=== PATIENT | male | born 1960 | race Caucasian/White ===

== ENCOUNTER 2017-04-14 14:23 | Inpatient (IN) | payer MEDICAID, MEDICARE, OTHER ==
[2017-04-14] MEDS ORDERED: Sodium Chloride 0.9% 1,000 ML IV ONE (14:48)
--- NOTE | 2017-04-14 15:10 | ED Physician Chart ---
Chief Complaint/HPI - Patient Information Date Seen:: 04/14/17 Time Seen:: 14:35 Chief Complaint:: Abdominal Pain History of Present Illness:: Onset x 3 days of intermittent, diffuse, crampy abdominal pain, N/V/D, fever, and decreaed oral intake; no C/P, SOB, chills, H/As, Neck pain, cough, congestion, melena, hematemesis, hematochezia, or urinary s/s Allergies:: Allergies Allergy/AdvReac Type Severity Reaction Status Date / Time No Known Allergies Allergy Verified 04/14/17 14:37 Vitals:: Vital Signs - 8 hr 04/14/17 14:37 Temp 102.2 F HR 131 RR 18 BP 149/78 O2 Sat % 97 Historian:: Patient, Family Member Review:: Nurse's Note Reviewed Review of Systems - Review of Systems General/Constitutional: Fever, Chills, No weight loss, No weakness, No diaphoresis, No edema, No loss of appetite Skin: No skin lesions, No rash, No bruising Head: No headache, No light-headedness Eyes: No loss of vision, No pain, No diplopia ENT: No earache, No nasal drainage, No sore throat, No tinnitus Neck: No neck pain, No swelling, No thyromegaly, No stiffness, No mass noted Cardio Vascular: No chest pain, No palpitations, No PND, No orthopnea, No edema Pulmonary: No SOB, Cough, No sputum, No wheezing GI: Nausea, Vomiting, Diarrhea, Pain, No melena, No hematochezia, Constipation, No hematemesis G/U: No dysuria, No frequency, No hematuria Musculoskeletal: No bone or joint pain, No back pain, No muscle pain Endocrine: No polyuria, No polydipsia Psychiatric: No prior psych history, No depression, No anxiety, No suicidal ideation, No homicidal ideation, No auditory hallucination, No visual hallucination Hematopoietic: No bruising, No lymphadenopathy Allergic/Immuno: No urticaria, No angioedema Neurological: No syncope, No focal symptoms, No weakness, No paresthesia, No headache, No seizure, No dizziness, No confusion, No vertigo Past Medical History - Past Medical History Obtainable: Yes Past Medical History: Asthma/COPD Family History: Diabetes Melitus, HTN Social History: Non Smoker, No Alcohol, No Drug Use, Surgical History: other (Umbilical Hernia Repair) Psychiatricy History: None Medication: Reviewed Family Medical History - Family Member Mother History Unknown: Yes Physical Exam - Physical Examination General/Constitutional: Awake, Well-developed, well-nourished, Alert, No distress, GCS 15, Non-toxic appearing, Ambulatory Head: Atraumatic Eyes: Lids, conjuctiva normal, PERRL, EOMI Skin: Nl inspection, No rash, No skin lesions, No ecchymosis, Well hydrated, No lymphadenopathy ENMT: External ears, nose nl, Nasal exam nl, Lips, teeth, gums nl Neck: Nontender, Full ROM w/o pain, No JVD, No nuchal rigidity, No bruit, No mass, No stridor Respiratory: Nl effort/Exclusion, Clear to Auscultation, No Wheeze/Rhonchi/Rales Cardio Vascular: RRR, No murmur, gallop, rubs, NL S1 S2 GI: No organomegaly, No hernia, Normal BS's, No mass/bruits, No McBurney tenderness Other GI comments:: Abdomen: + diffuse tenderness, rebound, and distention : No CVA tenderness Extremities: No tenderness or effusion, Full ROM, normal strength in all extremities, No edema, Normal digits & nails Neuro/Psych: Alert/oriented, DTR's symmetric, Normal sensory exam, Normal motor strength, Judgement/insight normal, Mood normal, Normal gait, No focal deficits Misc: normal gait, Normal back, No paraspinal tenderness Labs/Radiology/EKG Results - Lab Results Results: WBC: 18.6; U/A: + WBCs; + Bacteria - Radiology Results Comments:: CAT Scan: + Bowel Perforation - EKG Interpretations EKG Time:: 15:46 Rate & Rhythm: 109; ST Comments:: non-specific st-t changes ED Septic Shock - . Is Septic Shock (SBP<90, OR Lactate>4 mmol\L) present?: No - <6hrs of presentation: Vital Signs: Vital Signs - 8 hr 04/14/17 14:37 Temp 102.2 F HR 131 RR 18 BP 149/78 O2 Sat % 97 Reassessment (Disposition) - Reassessment Reassessment Condition:: Improved - Diagnosis Diagnosis:: Perforated Bowel; Fever; Dehydration; Abdominal Pain; Acute Abdominal Pain; Vomiting; UTI; Sepsis - Aftercare/Follow up Instructions Aftercare/Follow-Up Instructions:: Counseled pt regarding lab results/diagnosis & need follow up, Counseled pt & family regarding lab results/diagnosis & need follow up - Patient Disposition Discharge/Transfer:: Acute Care w/in this hosp Accepting Physician:: Dr. Kahn Time Called:: 1540 Time Responded:: 16:45 Admitted to:: Med/Surg Admitting Medical Physician:: Dr. Kahn/ Dr. Trevino Condition at Disposition:: Stable, Improved
[2017-04-14 15:25] LABS: TROP I 0.01 ng/mL (0.01-0.05)
--- NOTE | 2017-04-14 15:44 | Diagnostic Imaging Report ---
CT scan abdomen and pelvis without intravenous contrast HISTORY: Pain Total DLP equals 655 CTDI equals 13.1 Axial sections were obtained from the xiphoid process down to the pubic symphysis. The liver is enlarged. No focal lesions. The spleen is normal in size. No focal abnormalities seen in the pancreas. The right kidney appears normal. No focal lesions seen within the left kidney. No calculi. No hydronephrosis. Mild perinephric stranding particularly on the left side. Findings may be associated with inflammatory sequelae. Marked abnormal changes are noted along the lower descending and sigmoid colon with extensive haziness within the adjacent fat. Small air collections are noted. Suggestion of extraluminal air adjacent to the bowel. Exact etiology uncertain. Findings may be associated with inflammatory change and possible perforation. Clinical correlation is needed. No free fluid seen within the pelvis. IMPRESSION: 1. Extensive abnormal changes in the lower abdomen along the lower descending and sigmoid colon. Extensive haziness within the adjacent fat and suggestion of extraluminal air. Exact etiology uncertain. Findings may be associated with inflammatory change and perforation. Clinical correlation is needed.
[2017-04-14 15:45] LABS: URINE BILIRUBIN SMALL (NEGATIVE); URINE BLOOD SMALL (NEGATIVE); URINE COLOR ORANGE; URINE GLUCOSE (UA) NEGATIVE (NEGATIVE); URINE KETONE 15 mg/dL (NEGATIVE); URINE PH 5.5; URINE PROTEIN 100 mg/dL (NEGATIVE)
[2017-04-14 15:46] LABS: URINE AMORPHOUS SEDIMENT MANY URATES (NONE SEEN); URINE BACTERIA 1+ /hpf (NONE SEEN); URINE EPITHELIAL CELLS OCCASIONAL /lpf (FEW); URINE WBC 0-2 /hpf (0-5)
--- NOTE | 2017-04-14 15:46 | Diagnostic Imaging Report ---
Portable chest x-ray HISTORY: Chest pain The heart appears enlarged. There is accentuation of the lower interstitial lung markings particularly on the left side probably chronic. No hilar or mediastinal abnormalities. No evidence of pleural fluid. IMPRESSION: 1. Cardiomegaly 2. Pulmonary parenchymal changes that appear chronic as noted above. No other focal processes.
[2017-04-14 15:48] LABS: HEMOGLOBIN 11.2 gm/dL (13.2-17.3); MEAN CELL VOLUME 80.1 fl (80-99); MEAN CORPUSCULAR HEMOGLOBIN 26.4 pg (26.0-30.0); MEAN PLATELET VOLUME 7.6 fl; PLATELET COUNT 268 Th/cmm (150-400); RED BLOOD COUNT 4.25 Mil/cmm (4.30-5.70)
[2017-04-14 15:50] LABS: AMYLASE SERUM 31 U/L (29-103); LIPASE 15 U/L (11-82)
[2017-04-14 15:51] LABS: WHITE BLOOD COUNT 18.6 Th/cmm (4.8-10.8)
[2017-04-14 15:52] LABS: BAND NEUTROPHILE 4 % (0-10); NEUTROPHILS 86 % (40-80); PLATELET ESTIMATE ADEQUATE (NORMAL)
[2017-04-14 15:53] LABS: ALB/GLOB RATIO 0.8 (1.0-1.8); ALKALINE PHOSPHATASE 78 U/L (34-104); ANION GAP 16.5 (7.0-16.0); BILIRUBIN,TOTAL 1.1 mg/dL (0.3-1.0); BUN - UREA NITROGEN 19 mg/dL (7-25); BUN/CREATININE RATIO 15.8; CALCIUM SERUM 8.4 mg/dL (8.6-10.3); CARBON DIOXIDE 22.1 mEq/L (21.0-31.0); CHLORIDE 96 mEq/L (98-107); CHOLESTEROL 80 mg/dL (<200); CREATININE - SERUM 1.2 mg/dL (0.7-1.3); GLUCOSE 116 mg/dL (70-105); POTASSIUM SERUM 3.6 mEq/L (3.5-5.1); SGOT 76 U/L (13-39); SGPT/ALT 54 U/L (7-52); SODIUM SERUM 131 mEq/L (136-145); TRIGLYCERIDES 106 mg/dL (<150)
[2017-04-14 15:54] LABS: INR 1.23 (0.5-1.4); PROTHROMBIN TIME (TEST) 12.9 SECONDS (9.5-11.5)
[2017-04-14] MEDS ORDERED: metroNIDAZOLE 500mg/NS 100mL 500 MG/100 ML BAG IV ONE ×2 (16:02→16:08)
[2017-04-14] MEDS ORDERED: Piperacillin Sodium/Tazobact 3.375 gm Vial IV ONE (16:09)
[2017-04-14 16:44] LABS: BNP 85.5 pg/mL (5.0-100.0)
[2017-04-14] MEDS ORDERED: Midazolam 1mg/ml 2 ml vial IV ONE (17:26)
[2017-04-14] MEDS ORDERED: Meperidine 50 mg/mL 1mL Syr ONE ×2 (17:26→20:40)
--- NOTE | 2017-04-14 17:57 | Consultation ---
Consult Note - Consult Note Service Date: 04/14/17 Referring Physician: ER manager assembly 01 Consult Note: PHYSICIAN Consultation Note: Date of Admission: 04/14/17 Purpose of Consultation: septic shock related to sigmoid diverticulitis w/ perforation Chief Complaint: abd pain, distension x 2 weeks. History of Present Illness: 56M relatively healthy prior presents to ER with diffuse abd pain and distension and constipation x 2 weeks. progressively worsening leukocytosis, hypotensive, fever CT + acute sigmoid diverticulitis w/ extensive paracolonic inflammation, likely extraluminal air Past Medical History: Allergies Allergy/AdvReac Type Severity Reaction Status Date / Time No Known Allergies Allergy Verified 04/14/17 14:37 Vital Signs Temp 99.0 F 04/14/17 17:07 Pulse 106 04/14/17 17:07 Resp 16 04/14/17 17:07 BP 99/72 04/14/17 17:07 Pulse Ox 96 04/14/17 17:07 Review of Systems: GI: abd pain/distension all other systems unremarkable. Physical Exam: General: in moderate distress due to abd pain, distension HEENT: normal Cardio: RRR, no murmurs rubs gallops Respiratory: clear bilat Abdominal: diffuse tenderness, guarding, rebound, generalized peritoneal signs Genital/Urinary: normal Extremities: normal Neurological: normal Assessment: 56M relatively healthy presented to ER with diffuse abd pain, tenderness, fever, leukocytosis, hypotension CT abd/pelvis: acute sigmoid diverticulitis w/ extensive paracolonic inflammation, and likely extraluminal air septic shock obesity h/o umbilical hernia repair Plan: NPO IV fluids IV abx urgent/emergent exploratory laparotomy, sigmoid colectomy + end colostomy/ Ada's procedure, drainage of peritonitis. long d/w pt and son regarding plans for surgery, informed consent obtained, all risks of surgery explained, all questions answered. agree to surgery now. central line placement likely will need TPNutritional support. Signed, All Trevino [id number]
[2017-04-14] MEDS ORDERED: Meperidine 25 mg/mL 1mL Syr IVP PRN (18:06)
[2017-04-14] MEDS ORDERED: Lactated Ringer 1,000 ML IV SCH (18:15)
[2017-04-14] MEDS ORDERED: Lidocaine 2% Vial 20 mL Vial ONE (19:32)
[2017-04-14] MEDS ORDERED: Sodium Chloride 0.9% 1,000 ML IV SCH (20:14)
--- NOTE | 2017-04-14 20:41 | Operative Report ---
Operative Report - Surgery Date of Surgery:: 04/14/2017; 8:38p Procedure:: 1. exploratory laparotomy 2. sigmoid colectomy + end colostomy (Ada's procedure) 3. extensive lysis adhesions 4. drainage of intraabdominal/pelvic abscess and diffuse peritontis 5. placement ROLANDO drain Indication for procedure:: acute abdomen acute severe sigmoid diverticulitis w/ peritonitis and intra-abdominal abscess septic shock Anesthesia:: Anesthesiologist: Dr. Pratt Anesthesia: general Preoperative diagnosis:: acute perforated sigmoid diverticulitis w/ peritonitis and intra-abdominal/ pelvic abscess Postoperative diagnosis:: same Description of Procedure:: Surgeon: All Trevino MD Supervisor Machine Workers: Kaleb Polk MD Complications: none Findings: acutely inflammed sigmoid colon with parcolonic abscesses and adherent small bowel and omentum to sigmoid colon. Procedure description: correct pt identification pt taken to operating room and placed supine position administered general anesthesia and intubated uneventfully. sen cath and NGT placed abd prepped and draped usual sterile fashion time out performed lower midline incision made and extended slightly supraumbilically. entered into abdominal cavity without injury to bowel sigmoid colon inflammed with severe phlegmon multiple loops of SB and omentum adherent to sigmoid colon requiring lysis adhesions and blunt dissection away from structures. entered into several intra-abdominal paracolonic and pelvic abscesses, wound cultures sent off. the Bookwalter retractor system used to retract abdominal wall and large allen retractors used to pack away small bowel into RUQ site. mobilized sigmoid colon at white line of toldt, bleeding areas controlled with cautery and suture ligation carefully, attempt made to identify L ureter but too much inflammation and several areas of bleeding. move quickly to mobilize sigmoid colon from L paracolic space w/ bovie cautery. scored the mesentery of the sigmoid colon medially and laterally at the mid descending colon site. proximal end: descending & sigmoid colon junction divided with 75 ABHI stapler the mesenteric vessels to sigmoid colon clamped divided and tied with 2.0 silk and 0 silk sutures, staying close to bowel to stay away from ureters. the distal end: sigmoid/rectum junction divided with 75 ABHI stapler device fired x 2. the sigmoid colon was passed off as surgical specimen the pelvic and abdominal cavity irrigated w/ NS all bleeding areas were cauterized, tied or sutured for confirmed hemostasis then mobilized the proximal descending colon at white line of Toldt to prepare for length adequate to reach abdominal wall for end colostomy. opening of skin and subcutaneous tissue excised for colostomy in LUQ and 3 finger breadth opening of fascia and passed the proximal colon end thru the abdominal colostomy opening, later to be matured. all lap pads and blue towels were removed from abdominal cavity and all instrument, lap pads, sponge and needle counts correct. the entire length of small bowel was evaluated for any inadvertent injury or serosal tears, none seen. irrigation fluid suction out, hemostasis confirmed 10 flat ROLANDO drain introduced thru RLQ opening and placed into pelvis and directed end toward the R paracolic gutter site. small bowel replaced back into abdominal cavity and omentum draped over bowel. the abdominal wall fascia was approximated using #1 PDS looped continuous running suture from top and bottom and tied in midline 3 #1 vicryl sutures were placed as internal retention sutures a each 1/3 of length of fascial incision. abd wound irrigated w/ NS skin approximated with skin laura colostomy staple line cut away and the mucosa edge of colostomy sutured to surrounding skin with 2.0 vicryl interrupted sutures. pt tolerated procedure well, taken to ICU still intubated w/ ETT and in stable condition.
[2017-04-14] MEDS ORDERED: Meperidine 25 mg/mL 1mL Syr ONE (21:01)
[2017-04-14] MEDS: metroNIDAZOLE 500mg/NS 100mL 500 MG/100 ML BAG IV SCH (21:45)
[2017-04-14] MEDS: Chlorhexidine Gluconate 0.12% 15mL Mouthwash MM SCH (22:15)
[2017-04-14 23:20] LABS: pH 7.37 (7.35-7.45)
[2017-04-14] MEDS: Fluconazole 100mg/50mL 100 MG/50 ML BOTTLE IV SCH (23:30)
[2017-04-14 23:31] LABS: ABG SOURCE Arterial; BE(B) -2.5 mEq/L (-3.0-3.0); HCO3 22.6 mEq/L (20.0-26.0)
[2017-04-14 23:32] LABS: ALLEN TEST POSITIVE; CRITICAL VALUES REPORTED BY JC; FIO2 100; MECH RATE 14; MECH VT 550
[2017-04-14] MEDS: D5-0.9%NS 1,000 ML IV SCH (23:49)
[2017-04-15 05:28] LABS: HEMOGLOBIN 11.7 gm/dL (13.2-17.3)
[2017-04-15 05:50] LABS: HEMATOCRIT 35.5 % (39.0-49.0); MEAN CELL VOLUME 80.8 fl (80-99); MEAN CORPUSCULAR HEMOGLOBIN 26.7 pg (26.0-30.0); MEAN CORPUSCULAR HGB CONC 33.1 pg (28.0-36.0); MEAN PLATELET VOLUME 8.9 fl; RED BLOOD COUNT 4.39 Mil/cmm (4.30-5.70); RED CELL DISTRIBUTION WIDTH 15.4 % (11.5-20.0)
[2017-04-15 05:58] LABS: ALB/GLOB RATIO 0.8 (1.0-1.8); ALKALINE PHOSPHATASE 67 U/L (34-104); ANION GAP 14.8 (7.0-16.0); BILIRUBIN,TOTAL 1.5 mg/dL (0.3-1.0); BUN - UREA NITROGEN 19 mg/dL (7-25); BUN/CREATININE RATIO 14.6; CARBON DIOXIDE 22.2 mEq/L (21.0-31.0); CHLORIDE 101 mEq/L (98-107); CREATININE - SERUM 1.3 mg/dL (0.7-1.3); GLUCOSE 175 mg/dL (70-105); SGOT 49 U/L (13-39); SGPT/ALT 43 U/L (7-52); SODIUM SERUM 134 mEq/L (136-145)
[2017-04-15] MEDS: metroNIDAZOLE 500mg/NS 100mL 500 MG/100 ML BAG IV SCH ×3 (06:25→21:00)
[2017-04-15 06:26] LABS: PLATELET COUNT 344 Th/cmm (150-400)
[2017-04-15 06:58] LABS: BAND NEUTROPHILE 7 % (0-10); NEUTROPHILS 85 % (40-80); TOTAL CELLS COUNTED 100
[2017-04-15 06:59] LABS: PLATELET ESTIMATE ADEQUATE (NORMAL)
[2017-04-15] MEDS: Chlorhexidine Gluconate 0.12% 15mL Mouthwash MM SCH ×2 (08:00→20:31)
[2017-04-15] MEDS: Enoxaparin 40 mg/0.4 mL 0.4mL Syr SUBQ SCH (09:07)
[2017-04-15] MEDS ORDERED: Probiotic Screen MC PRN (09:40)
--- NOTE | 2017-04-15 10:14 | Diagnostic Imaging Report ---
Portable chest x-ray HISTORY: Shortness of breath, endotracheal tube placement Compared to prior exam performed earlier in the day (1528 hours), an endotracheal tube is been inserted. The tip is approximately 1.0 cm above the ondina. The heart is enlarged. Faint linear densities noted in the left lower lobe unchanged and may be related to scarring. IMPRESSION: 1. Endotracheal tube placement as noted above 2. No significant change in the cardiopulmonary status
[2017-04-15 10:25] VITALS: BP 120/84
--- NOTE | 2017-04-15 11:44 | General Progress Note ---
Subjective - Review of Systems Service Date: 04/15/17 Events since last encounter: still intubated, sedated on propofol iv Subjective: awake follows commands Objective - Results Result Diagrams: 04/15/17 04:37 04/15/17 04:37 Recent Labs: Laboratory Last Values WBC 20.0 Th/cmm (4.8-10.8) H 04/15/17 04:37 RBC 4.39 Mil/cmm (4.30-5.70) 04/15/17 04:37 Hgb 11.7 gm/dL (13.2-17.3) L 04/15/17 04:37 Hct 35.5 % (39.0-49.0) L 04/15/17 04:37 MCV 80.8 fl (80-99) 04/15/17 04:37 MCH 26.7 pg (26.0-30.0) 04/15/17 04:37 MCHC Differential 33.1 pg (28.0-36.0) 04/15/17 04:37 RDW 15.4 % (11.5-20.0) 04/15/17 04:37 Plt Count 344 Th/cmm (150-400) D 04/15/17 04:37 MPV 8.9 fl 04/15/17 04:37 Band Neutrophils % 7 % (0-10) 04/15/17 04:37 Lymphocytes % ASSESSOR 04/15/17 04:37 Monocytes % ASSESSOR 04/15/17 04:37 Eosinophils % ASSESSOR 04/15/17 04:37 Neutrophils (Manual) 85 % (40-80) H 04/15/17 04:37 Lymphocytes 2 % (20-50) L 04/15/17 04:37 Monocytes 6 % (2-10) 04/15/17 04:37 Platelet Estimate ADEQUATE (NORMAL) 04/15/17 04:37 PT 12.9 SECONDS (9.5-11.5) H 04/14/17 14:55 INR 1.23 (0.5-1.4) 04/14/17 14:55 PTT (Actin FS) 29.8 SECONDS (26.0-38.0) 04/14/17 14:55 Specimen Source Arterial 04/14/17 21:57 Sample Site Right Radial 04/14/17 21:57 pH 7.37 (7.35-7.45) 04/14/17 21:57 pCO2 40.2 mmHg (35.0-45.0) 04/14/17 21:57 pO2 509.9 mmHg (80.0-100.0) H 04/14/17 21:57 HCO3 22.6 mEq/L (20.0-26.0) 04/14/17 21:57 Base Excess -2.5 mEq/L (-3.0-3.0) 04/14/17 21:57 O2 Saturation 99.2 % (92.0-100.0) 04/14/17 21:57 Chau Test POSITIVE 04/14/17 21:57 Vent Rate 14 04/14/17 21:57 Inspired O2 100 04/14/17 21:57 Tidal Volume 550 04/14/17 21:57 PEEP 5 04/14/17 21:57 Pressure (ins/psv/peep) N/A 04/14/17 21:57 Critical Value SABRINA 04/14/17 21:57 Sodium 134 mEq/L (136-145) L 04/15/17 04:37 Potassium 4.0 mEq/L (3.5-5.1) 04/15/17 04:37 Chloride 101 mEq/L (98-107) 04/15/17 04:37 Carbon Dioxide 22.2 mEq/L (21.0-31.0) 04/15/17 04:37 Anion Gap 14.8 (7.0-16.0) 04/15/17 04:37 BUN 19 mg/dL (7-25) 04/15/17 04:37 Creatinine 1.3 mg/dL (0.7-1.3) 04/15/17 04:37 Est GFR ( Amer) > 60.0 ml/min (>90) 04/15/17 04:37 Est GFR (Non-Af Amer) > 60.0 ml/min 04/15/17 04:37 BUN/Creatinine Ratio 14.6 04/15/17 04:37 Glucose 175 mg/dL (70-105) H 04/15/17 04:37 Whole Bld Lactic Acid 1.53 mmol/L (0.60-1.99) 04/14/17 14:55 Calcium 8.0 mg/dL (8.6-10.3) L 04/15/17 04:37 Total Bilirubin 1.5 mg/dL (0.3-1.0) H 04/15/17 04:37 AST 49 U/L (13-39) H 04/15/17 04:37 ALT 43 U/L (7-52) 04/15/17 04:37 Alkaline Phosphatase 67 U/L (34-104) 04/15/17 04:37 Creatine Kinase 136 U/L (30-223) 04/14/17 14:55 Troponin I 0.01 ng/mL (0.01-0.05) 04/14/17 14:55 B-Natriuretic Peptide 85.5 pg/mL (5.0-100.0) 04/14/17 14:55 Total Protein 5.5 gm/dL (6.0-8.3) L 04/15/17 04:37 Albumin 2.4 gm/dL (4.2-5.5) L 04/15/17 04:37 Globulin 3.1 gm/dL 04/15/17 04:37 Albumin/Globulin Ratio 0.8 (1.0-1.8) L 04/15/17 04:37 Triglycerides 106 mg/dL (<150) 04/14/17 14:55 Cholesterol 80 mg/dL (<200) 04/14/17 14:55 LDL Cholesterol Direct 38 mg/dL (75-193) L 04/14/17 14:55 HDL Cholesterol 13 mg/dL (23-92) L 04/14/17 14:55 Amylase 31 U/L (29-103) 04/14/17 14:55 Lipase 15 U/L (11-82) 04/14/17 14:55 Urine Source CLEAN C 04/14/17 15:05 Urine Color ORANGE 04/14/17 15:05 Urine Clarity SLIGHT HAZY (CLEAR) 04/14/17 15:05 Urine pH 5.5 04/14/17 15:05 Ur Specific [place] 1.020 (1.005-1.030) 04/14/17 15:05 Urine Protein 100 mg/dL (NEGATIVE) H 04/14/17 15:05 Urine Glucose (UA) NEGATIVE mg/dL (NEGATIVE) 04/14/17 15:05 Urine Ketones 15 mg/dL (NEGATIVE) H 04/14/17 15:05 Urine Blood SMALL (NEGATIVE) H 04/14/17 15:05 Urine Nitrate NEGATIVE (NEGATIVE) 04/14/17 15:05 Urine Bilirubin SMALL (NEGATIVE) H 04/14/17 15:05 Urine Urobilinogen 1.0 E.U./dL (0.2 - 1.0) 04/14/17 15:05 Ur Leukocyte Esterase NEGATIVE (NEGATIVE) 04/14/17 15:05 Urine RBC 2-5 /hpf (0-5) H 04/14/17 15:05 Urine WBC 0-2 /hpf (0-5) 04/14/17 15:05 Ur Epithelial Cells OCCASIONAL /lpf (FEW) 04/14/17 15:05 Amorphous Sediment MANY URATES (NONE SEEN) 04/14/17 15:05 Urine Bacteria 1+ /hpf (NONE SEEN) H 04/14/17 15:05 Blood Type O POSITIVE 04/14/17 20:36 Antibody Screen NEGATIVE 04/14/17 20:36 - Physical Exam Vitals and I&O: Vital Signs Temp 99.8 F 04/15/17 10:00 Pulse 130 04/15/17 11:05 Resp 26 04/15/17 10:00 BP 120/84 04/15/17 10:24 Pulse Ox 100 04/15/17 11:05 Intake & Output 04/14/17 04/15/17 04/15/17 18:59 06:59 18:59 Intake Total 300 35.244 Output Total 350 Balance -50 35.244 Weight (lbs) 46.176 kg Intake: Intake, IV Amount 300 35.244 Piperacillin Sodium/ 100 Tazobact 4.5 gm In Sodium Chloride 0.9% 100 ml @ 100 mls/hr IV Q6HR [facility] Rx #:[id number] Propofol 1,000 mg In 100 100 35.244 ml @ Titrate IV TITR [facility] Rx#:[id number] metroNIDAZOLE 500mg/NS 100 100mL 500 mg In 100 ml @ 100 mls/hr IV Q8HR [facility] Rx #:[id number] Output: Urine 350 Other: Stool Characteristics Liquid Bloody Active Medications: Current Medications Chlorhexidine Gluconate (Peridex) 15 ml MM [phone] [facility] Stop: 06/13/17 19:59 Last Admin: 04/15/17 08:00 Dose: 15 ml Enoxaparin Sodium (Lovenox) 40 mg SUBQ DAILY ARIAN Stop: 06/14/17 08:59 Last Admin: 04/15/17 09:07 Dose: 40 mg Hydromorphone HCl (Dilaudid) 1 mg IVP Q4HR PRN PRN Reason: Pain (Severe) Stop: 06/13/17 20:22 Lactated Ringer's (Lactated Ringer) 1,000 mls @ 0 mls/hr IV .Q0M ARIAN PRN Reason: TKO Stop: 04/15/17 18:14 Dextrose/Sodium Chloride (D5-0.9%Ns) 1,000 mls @ 100 mls/hr IV .Q10H [facility]AN Stop: 06/13/17 20:14 Last Admin: 04/14/17 23:49 Dose: 100 mls/hr Piperacillin Sod/Tazobactam (Sod 4.5 gm/ Sodium Chloride) 100 mls @ 100 mls/hr IV Q6HR [facility]AN Stop: 06/14/17 00:00 Last Admin: 04/15/17 07:46 Dose: 100 mls/hr Metronidazole (Flagyl) 500 mg in 100 mls @ 100 mls/hr IV Q8HR [facility] Stop: 06/13/17 20:59 Last Admin: 04/15/17 06:25 Dose: 100 mls/hr Fluconazole (Diflucan) 100 mg in 50 mls @ 50 mls/hr IV Q24HR [facility] Stop: 06/13/17 20:59 Last Admin: 04/14/17 23:30 Dose: 50 mls/hr Propofol (Diprivan) 1,000 mg in 100 mls @ 0 mls/hr IV TITR ARIAN; Titrate PRN Reason: Protocol Stop: 06/13/17 21:32 Last Admin: 04/15/17 09:02 Dose: 25 mcg/kg/min, 14.288 mls/hr Lactobacillus Rhamnosus (Culturelle) 1 each PO DAILY ARIAN Stop: 06/15/17 08:59 Meperidine HCl (Demerol) 12.5 mg IVP PRN PRN PRN Reason: POST-OP PAIN Stop: 04/15/17 18:05 Miscellaneous (Probiotic Screen) 1 ea MC PRN PRN PRN Reason: PROTOCOL Stop: 06/14/17 09:39 Morphine Sulfate (Morphine) 2 mg IVP Q4H PRN PRN Reason: Severe Pain Stop: 06/13/17 20:08 Morphine Sulfate (Morphine) 4 mg IV Q2HR PRN PRN Reason: Pain (Moderate) Stop: 06/13/17 20:19 Ondansetron HCl (Zofran) 4 mg IV PRN PRN PRN Reason: Nausea / Vomiting Stop: 04/15/17 18:05 Ondansetron HCl (Zofran) 4 mg IVP Q6H PRN PRN Reason: Nausea / Vomiting Stop: 06/13/17 20:08 Pantoprazole Sodium (Protonix) 40 mg IVP DAILY ARIAN Stop: 06/13/17 20:29 Last Admin: 04/15/17 09:08 Dose: 40 mg General: Alert, Oriented x3, No acute distress HEENT: Atraumatic, PERRLA, EOMI, Mucous membr. moist/pink Neck: Supple Cardiovascular: Regular rate, Normal S1, Normal S2 Lungs: Clear to auscultation, Normal air movement Abdomen: Soft, Distended Psych/Mental Status: Mental status NL Other physical findings: abd: colostomy site intack, mild dusky colostomy mucosa. - Procedures Procedures: Procedures Procedure Code Date BYPASS SIGMOID COLON TO CUTANEOUS, OPEN APPROACH [id number] 04/14/17 PARTIAL REMOVAL OF COLON 13809 04/14/17 RESECTION OF SIGMOID COLON, OPEN APPROACH [id number] 04/14/17 RESPIRATORY VENTILATION, LESS THAN 24 CONSECUTIVE HOURS [id number] 04/14/17 VENT MGMT INPAT INIT DAY 61176 04/14/17 Assessment/Plan - Problem List Patient Problems: All Active Problems Abscess of sigmoid colon due to diverticulitis (Acute) K57.20 Diverticulitis of sigmoid colon (Acute) K57.32 Obesity (Acute) E66.9 Perforation of sigmoid colon due to diverticulitis (Acute) K57.20 Peritonitis (acute) generalized (Acute) K65.0 - Assessment Assessment: POD#1 s/p ex lap, sigmoid colectomy, drainage of peritonitis, lysis adhesions, ROLANDO drain placement. resp failure, pulmonary consult and f/u, wean to extubate per pulm continue IVfluids leukocytosis/ tachycardia; continue IV abx TPNutritional support ROLANDO drain expected output good urine output dvt prophylaxis Lovenox SQ supportive care.... s/w family guarded prognosis. warned pt's condition may worsen.
[2017-04-15] MEDS: Morphine Sulfate 2 mg/mL 1mL Syr IVP PRN ×3 (11:45→21:10)
--- NOTE | 2017-04-15 12:43 | Consultation ---
Consult Note - Consult Note Service Date: 04/15/17 Referring Physician: All Trevino Consult Note: PHYSICIAN Consultation Note: Date of Admission: 04/14/17 Purpose of Consultation: sepsis, Diverticulitis. Chief Complaint: Patient RAJ REGAN was admitted to location Intensive Care Unit with ABD. PAIN, BOWEL PERFORATION. History of Present Illness: Patient is 56 y male presented to hospital for abdominal pain for last 2 weeks, with fever for 2 days. On initial evaluation his temperature 102.2F" he count was 18,600. CT scan of the abdomen and pelvis was performed and it showed perforated abdomen. Patient was taken to the OR and aspirin laparotomy performed with sigmoid colectomy and end end colostomy, drainage of intra- abdominal and pelvic abscesses. His WBC count went up to 20,000 today, Dr. Trevino called me for infectious disease consultation.. His abdomen remains distended. His intubated orally on ventilatory support. Patient is unable to give any history. History is taken from family. Antibiotic-botello, he is receiving Zosyn. Past Medical History: Asthma, arthritis. Diagnoses SEPSIS, UNSPECIFIED ORGANISM (04/14/17) DVTRCLI OF LG INT W PERFORATION AND ABSCESS W/O BLEEDING (04/14/17) UNSPECIFIED ABDOMINAL PAIN (04/14/17) SEVERE SEPSIS WITH SEPTIC SHOCK (04/14/17) Allergies Allergy/AdvReac Type Severity Reaction Status Date / Time No Known Allergies Allergy Verified 04/14/17 14:37 Vital Signs Temp 99.8 F 04/15/17 10:00 Pulse 130 04/15/17 11:05 Resp 26 04/15/17 10:00 BP 120/84 04/15/17 10:24 Pulse Ox 100 04/15/17 11:05 Intake & Output 04/14/17 04/15/17 04/15/17 18:59 06:59 18:59 Intake Total 300 235.244 Output Total 350 Balance -50 235.244 Weight (lbs) 46.176 kg Intake: Intake, IV Amount 300 235.244 Piperacillin Sodium/ 100 100 Tazobact 4.5 gm In Sodium Chloride 0.9% 100 ml @ 100 mls/hr IV Q6HR ARIAN Rx #:[id number] Propofol 1,000 mg In 100 100 35.244 ml @ Titrate IV TITR ARIAN Rx#:[id number] metroNIDAZOLE 500mg/NS 100 100 100mL 500 mg In 100 ml @ 100 mls/hr IV Q8HR [facility] Rx #:[id number] Output: Urine 350 Other: Stool Characteristics Liquid Bloody Laboratory Results - last 24 hr 04/14/17 04/14/17 04/15/17 20:36 21:57 04:37 WBC 20.0 H RBC 4.39 Hgb 11.7 L Hct 35.5 L MCV 80.8 MCH 26.7 MCHC Differential 33.1 RDW 15.4 Plt Count 344 D MPV 8.9 Band Neutrophils % 7 Lymphocytes % QUALITY ASSOCIATE Monocytes % QUALITY ASSOCIATE Eosinophils % QUALITY ASSOCIATE Neutrophils (Manual) 85 H Lymphocytes 2 L Monocytes 6 Platelet Estimate ADEQUATE Specimen Source Arterial Sample Site Right Radial pH 7.37 pCO2 40.2 pO2 509.9 H HCO3 22.6 Base Excess -2.5 O2 Saturation 99.2 Chau Test POSITIVE Vent Rate 14 Inspired O2 100 Tidal Volume 550 PEEP 5 Pressure (ins/psv/peep) N/A Critical Value SABRINA Sodium Potassium Chloride Carbon Dioxide Anion Gap BUN Creatinine Est GFR ( Amer) Est GFR (Non-Af Amer) BUN/Creatinine Ratio Glucose Calcium Total Bilirubin AST ALT Alkaline Phosphatase Total Protein Albumin Globulin Albumin/Globulin Ratio Blood Type O POSITIVE Antibody Screen NEGATIVE 04/15/17 04:37 WBC RBC Hgb Hct MCV MCH MCHC Differential RDW Plt Count MPV Band Neutrophils % Lymphocytes % Monocytes % Eosinophils % Neutrophils (Manual) Lymphocytes Monocytes Platelet Estimate Specimen Source Sample Site pH pCO2 pO2 HCO3 Base Excess O2 Saturation Chau Test Vent Rate Inspired O2 Tidal Volume PEEP Pressure (ins/psv/peep) Critical Value Sodium 134 L Potassium 4.0 Chloride 101 Carbon Dioxide 22.2 Anion Gap 14.8 BUN 19 Creatinine 1.3 Est GFR ( Amer) > 60.0 Est GFR (Non-Af Amer) > 60.0 BUN/Creatinine Ratio 14.6 Glucose 175 H Calcium 8.0 L Total Bilirubin 1.5 H AST 49 H ALT 43 Alkaline Phosphatase 67 Total Protein 5.5 L Albumin 2.4 L Globulin 3.1 Albumin/Globulin Ratio 0.8 L Blood Type Antibody Screen Current Medications Generic Name Dose Route Start Last Admin Trade Name Freq PRN Reason Stop Dose Admin Chlorhexidine Gluconate 15 ml 04/14/17 20:00 04/15/17 08:00 Peridex MM 06/13/17 19:59 15 ml 08,1999 [facility] Administration Enoxaparin Sodium 40 mg 04/15/17 09:00 04/15/17 09:07 Lovenox SUBQ 06/14/17 08:59 40 mg DAILY ARIAN Administration Hydromorphone HCl 1 mg 04/14/17 20:23 Dilaudid IVP 06/13/17 20:22 Q4HR PRN Pain (Severe) Lactated Ringer's 1,000 mls @ 0 mls/hr 04/14/17 18:15 Lactated Ringer IV 04/15/17 18:14 .Q0M ARIAN TKO Dextrose/Sodium Chloride 1,000 mls @ 100 mls/hr 04/14/17 20:15 04/14/17 23:49 D5-0.9%Ns IV 06/13/17 20:14 100 mls/hr .Q10H ARIAN Administration Piperacillin Sod/Tazobactam 100 mls @ 100 mls/hr 04/15/17 00:00 04/15/17 12: 18 Sod 4.5 gm/ Sodium Chloride IV 06/14/17 00:00 100 mls/hr Q6HR ARIAN Administration Metronidazole 500 mg in 100 mls @ 100 mls/hr 04/14/17 21:00 04/15/17 12:23 Flagyl IV 06/13/17 20:59 100 mls/hr Q8HR ARIAN Administration Fluconazole 100 mg in 50 mls @ 50 mls/hr 04/14/17 21:00 04/14/17 23:30 Diflucan IV 06/13/17 20:59 50 mls/hr Q24HR ARIAN Administration Propofol 1,000 mg in 100 mls @ 0 mls/hr 04/14/17 21:33 04/15/17 09:02 Diprivan IV 06/13/17 21:32 25 mcg/kg/min TITR ARIAN 14.288 mls/hr Protocol Administration Titrate Lactobacillus Rhamnosus 1 each 04/16/17 09:00 Culturelle PO 06/15/17 08:59 DAILY ARIAN Meperidine HCl 12.5 mg 04/14/17 18:06 Demerol IVP 04/15/17 18:05 PRN PRN POST-OP PAIN Miscellaneous 1 ea 04/15/17 09:40 Probiotic Screen MC 06/14/17 09:39 PRN PRN PROTOCOL Miscellaneous 1 ea 04/15/17 11:45 Tpn Per Pharmacy 06/14/17 11:44 PRN PRN PROTOCOL Miscellaneous 1 04/15/17 12:45 Vancomycin Iv Per Pharmacy 06/14/17 12:44 PRN ARIAN Morphine Sulfate 2 mg 04/14/17 20:09 04/15/17 11:45 Morphine IVP 06/13/17 20:08 2 mg Q4H PRN Administration Severe Pain Morphine Sulfate 4 mg 04/14/17 20:20 Morphine IV 06/13/17 20:19 Q2HR PRN Pain (Moderate) Ondansetron HCl 4 mg 04/14/17 18:06 Zofran IV 04/15/17 18:05 PRN PRN Nausea / Vomiting Ondansetron HCl 4 mg 04/14/17 20:09 Zofran IVP 06/13/17 20:08 Q6H PRN Nausea / Vomiting Pantoprazole Sodium 40 mg 04/14/17 20:30 04/15/17 09:08 Protonix IVP 06/13/17 20:29 40 mg DAILY ARIAN Administration Review of Systems: A 12 point ROS was reviewed with the pertinent positive and negatives noted in the HPI. Unable to give any history. Family Medical History Family Medical History Start: 04/14/17 17: 16 Freq: ONCE Status: Active Document 04/14/17 22:30 [email or web address] (Rec: 04/15/17 08:42 [email or web address] [place]- [id number]) Family Medical History Mother Name: NOEL EAGLE Ethnicity Living Status Hx Family Cancer No Hx Family Coronary Artery Disease No Hx Family Congestive Heart Failure No Hx Family Hypertension No Hx Family Stroke No Hx Family Diabetes No Hx Family Seizures No Hx Family Dementia No Hx Family AIDS No Hx Family HIV No Hx Family COPD No Hx Family Hepatitis No Hx Family Psychiatric Problems No Hx Family Tuberculosis No Other Medical History ASTHMA Physical Exam: General: Intubated orally, on ventilator support. Well-nourished well- developed. HEENT: Head is normocephalic. Oral cavity: Moist, pink tongue. Eyes: Pallor is present, no icterus. PERRLA. EOMI. Cardio: S1 and S2 within normal with the grossly abnormal on the gallop. Respiratory: Vesicular breath sounds, decreased her son. Abdominal: Soft, distended. Colostomy left lower quadrant. One ROLANDO drain. Genital/Urinary: Thorne catheter with clear urine. Extremities: No cyanosis, no clubbing, no edema. Pulses are palpable in all 4 limbs. She dictated. Neurological: Assessment: 1. Sepsis. 2. Diverticulitis, sigmoid diverticula to with support complicated by multiple abscesses and peritonitis. 3. Post operatively, on ventilator. 4. Peritonitis. Likely polymicrobial. 5. History of asthma. 6. History of arthritis. 7. Distended abdomen likely post operative ileus. Rule out small bowel obstruction. Plan: Continue Zosyn. Start vancomycin. Sepsis workup was performed and follow the sepsis workup. KUB in the morning. Follow-up CBC and CMP in the morning. Otherwise, for fever will use ice packs and if needed pulling blanket. Signed, Yusef Bro M.D. 04/15/[id number]
--- NOTE | 2017-04-15 13:43 | Diagnostic Imaging Report ---
Exam: KUB HISTORY: Ileus. Findings: Supine examination of the abdomen was reviewed. The study demonstrates air distention of stomach. The NG tube projecting over the gastroesophageal junction. Advancing NG tube approximately 10 cm with suction NG tube is recommended. The bowel gas diffusion nonspecific. There is evidence of Jean-Mchugh drainage catheter in lower abdomen. Multiple metallic midline clips suggestive of previous exploratory laparotomy. Bony structures unremarkable for degenerative changes. IMPRESSION: 1. Air distention of stomach advanced NG tube test 10 cm and recommended suction NG tube. 2: Nonspecific bowel gas pattern, status post exploratory laparotomy, Jean-Mchugh drainage in place in lower abdomen.
--- NOTE | 2017-04-15 18:20 | History and Physical ---
History of Present Illness - HPI Chief Complaint: Abdominal pain for last 4 days HPI: 56-year-old [place] male with a remote history of asthma lives with his daughter brought himself to the emergency room for evaluation of abdominal pain for last 4 days duration. Patient was seen and examined by emergency room Tim and noted to a perforated diverticulitis with peritonitis patient was taken to or for immediate surgical intervention postprocedure patient is admitted to ICU for further care patient is currently intubated and mechanically ventilated patient does not provide meaningful history patient's family is at bedside who gave me history about this patient as well as emergency room Tim Vital Signs: Last Vital Signs Temp 100.9 F 04/15/17 17:00 Pulse 139 04/15/17 17:00 Resp 26 04/15/17 17:00 BP 108/75 04/15/17 17:00 Pulse Ox 100 04/15/17 17:00 Past Medical History Pulmonary: Report: Asthma TIN STACKER: Report: No Pertinent Hx GI: Report: Diverticulosis Psych: Report: No Pertinent Hx Musculoskeletal: Report: No Pertinent Hx Rheumatologic: Report: No pertinent Hx Infectious Disease: Report: No Pertinent Hx Renal/: Report: No Pertinent Hx Endocrine: Report: No Pertinent Hx Dermatology: Report: No Pertinent Hx - Past Surgical History Past Surgical History: No pertinent Hx Family Medical History - Family Member Mother History Unknown: Yes Name:: NOEL EAGLE Ethnicity: Living Status: Hx Family Cancer: No Hx Family Coronary Artery Disease: No Hx Family Congestive Heart Failure: No Hx Family Hypertension: Yes Hx Family Stroke: No Hx Family Diabetes: Yes Hx Family Seizures: No Hx Family Dementia: No Hx Family AIDS: No Hx Family HIV: No Hx Family COPD: No Hx Family Hepatitis: No Hx Family Psychiatric Problems: No Hx Family Tuberculosis: No Other Medical History: ASTHMA Social History Smoke: Quit Alcohol: None Drugs: None Lives: Alone, With Family Domestic Violence: Negative - Allergies Allergies/Adverse Reactions: Allergies Allergy/AdvReac Type Severity Reaction Status Date / Time No Known Allergies Allergy Verified 04/14/17 14:37 Review of Systems - Review of Systems Constitutional: Report: Other (unable to obtain) Eyes: Report: Other (unable to pain.) ENT: Report: Other (unable to obtain.) Respiratory: Report: Other (unable to pain.) Cardiovascular: Report: Other (unable to pain.) Gastrointestinal: Report: Other (unable to obtain.) Genitourinary: Report: Other (unable to pain.) Musculoskeletal: Report: Other (unable to obtain.) Skin: Report: Other (well-built pain.) Neurological: Report: Other (unable to obtain.) Physical Exam - Physical Exam HEENT: Report: Ectectic Sclera (patient has oral endotracheal tube.), Pale Conjunctiva Neck: Report: Within normal limits Cardiovascular Systems: Report: +s1/s2 noted, Tachycardia Respiratory: Report: Rhonchi Abdomen: Report: Abnormal Bowel Sounds (abdomen is distended with the colostomy bag on on left, ROLANDO drain on the right.) Back: Report: Inspection of back is within normal limits. Extremities: Report: Non-tender to palpation. Skin: Report: Color of skin is within normal limits Neuro/Psych: Report: No new focal deficits (currently intubated and sedated and unable to perform complete neurological examination.) - Lab Results All Lab Results last 24 hours: Laboratory Last Values WBC 20.0 Th/cmm (4.8-10.8) H 04/15/17 04:37 RBC 4.39 Mil/cmm (4.30-5.70) 04/15/17 04:37 Hgb 11.7 gm/dL (13.2-17.3) L 04/15/17 04:37 Hct 35.5 % (39.0-49.0) L 04/15/17 04:37 MCV 80.8 fl (80-99) 04/15/17 04:37 MCH 26.7 pg (26.0-30.0) 04/15/17 04:37 MCHC Differential 33.1 pg (28.0-36.0) 04/15/17 04:37 RDW 15.4 % (11.5-20.0) 04/15/17 04:37 Plt Count 344 Th/cmm (150-400) D 04/15/17 04:37 MPV 8.9 fl 04/15/17 04:37 Band Neutrophils % 7 % (0-10) 04/15/17 04:37 Lymphocytes % PACKING MACHINE PILOT CAN ROUTER 04/15/17 04:37 Monocytes % PACKING MACHINE PILOT CAN ROUTER 04/15/17 04:37 Eosinophils % PACKING MACHINE PILOT CAN ROUTER 04/15/17 04:37 Neutrophils (Manual) 85 % (40-80) H 04/15/17 04:37 Lymphocytes 2 % (20-50) L 04/15/17 04:37 Monocytes 6 % (2-10) 04/15/17 04:37 Platelet Estimate ADEQUATE (NORMAL) 04/15/17 04:37 PT 12.9 SECONDS (9.5-11.5) H 04/14/17 14:55 INR 1.23 (0.5-1.4) 04/14/17 14:55 PTT (Actin FS) 29.8 SECONDS (26.0-38.0) 04/14/17 14:55 Specimen Source Arterial 04/14/17 21:57 Sample Site Right Radial 04/14/17 21:57 pH 7.37 (7.35-7.45) 04/14/17 21:57 pCO2 40.2 mmHg (35.0-45.0) 04/14/17 21:57 pO2 509.9 mmHg (80.0-100.0) H 04/14/17 21:57 HCO3 22.6 mEq/L (20.0-26.0) 04/14/17 21:57 Base Excess -2.5 mEq/L (-3.0-3.0) 04/14/17 21:57 O2 Saturation 99.2 % (92.0-100.0) 04/14/17 21:57 Chau Test POSITIVE 04/14/17 21:57 Vent Rate 14 04/14/17 21:57 Inspired O2 100 04/14/17 21:57 Tidal Volume 550 04/14/17 21:57 PEEP 5 04/14/17 21:57 Pressure (ins/psv/peep) N/A 04/14/17 21:57 Critical Value SABRINA 04/14/17 21:57 Sodium 134 mEq/L (136-145) L 04/15/17 04:37 Potassium 4.0 mEq/L (3.5-5.1) 04/15/17 04:37 Chloride 101 mEq/L (98-107) 04/15/17 04:37 Carbon Dioxide 22.2 mEq/L (21.0-31.0) 04/15/17 04:37 Anion Gap 14.8 (7.0-16.0) 04/15/17 04:37 BUN 19 mg/dL (7-25) 04/15/17 04:37 Creatinine 1.3 mg/dL (0.7-1.3) 04/15/17 04:37 Est GFR ( Amer) > 60.0 ml/min (>90) 04/15/17 04:37 Est GFR (Non-Af Amer) > 60.0 ml/min 04/15/17 04:37 BUN/Creatinine Ratio 14.6 04/15/17 04:37 Glucose 175 mg/dL (70-105) H 04/15/17 04:37 Whole Bld Lactic Acid 1.53 mmol/L (0.60-1.99) 04/14/17 14:55 Calcium 8.0 mg/dL (8.6-10.3) L 04/15/17 04:37 Total Bilirubin 1.5 mg/dL (0.3-1.0) H 04/15/17 04:37 AST 49 U/L (13-39) H 04/15/17 04:37 ALT 43 U/L (7-52) 04/15/17 04:37 Alkaline Phosphatase 67 U/L (34-104) 04/15/17 04:37 Creatine Kinase 136 U/L (30-223) 04/14/17 14:55 Troponin I 0.01 ng/mL (0.01-0.05) 04/14/17 14:55 B-Natriuretic Peptide 85.5 pg/mL (5.0-100.0) 04/14/17 14:55 Total Protein 5.5 gm/dL (6.0-8.3) L 04/15/17 04:37 Albumin 2.4 gm/dL (4.2-5.5) L 04/15/17 04:37 Globulin 3.1 gm/dL 04/15/17 04:37 Albumin/Globulin Ratio 0.8 (1.0-1.8) L 04/15/17 04:37 Triglycerides 106 mg/dL (<150) 04/14/17 14:55 Cholesterol 80 mg/dL (<200) 04/14/17 14:55 LDL Cholesterol Direct 38 mg/dL (75-193) L 04/14/17 14:55 HDL Cholesterol 13 mg/dL (23-92) L 04/14/17 14:55 Amylase 31 U/L (29-103) 04/14/17 14:55 Lipase 15 U/L (11-82) 04/14/17 14:55 Urine Source CLEAN C 04/14/17 15:05 Urine Color ORANGE 04/14/17 15:05 Urine Clarity SLIGHT HAZY (CLEAR) 04/14/17 15:05 Urine pH 5.5 04/14/17 15:05 Ur Specific Valier 1.020 (1.005-1.030) 04/14/17 15:05 Urine Protein 100 mg/dL (NEGATIVE) H 04/14/17 15:05 Urine Glucose (UA) NEGATIVE mg/dL (NEGATIVE) 04/14/17 15:05 Urine Ketones 15 mg/dL (NEGATIVE) H 04/14/17 15:05 Urine Blood SMALL (NEGATIVE) H 04/14/17 15:05 Urine Nitrate NEGATIVE (NEGATIVE) 04/14/17 15:05 Urine Bilirubin SMALL (NEGATIVE) H 04/14/17 15:05 Urine Urobilinogen 1.0 E.U./dL (0.2 - 1.0) 04/14/17 15:05 Ur Leukocyte Esterase NEGATIVE (NEGATIVE) 04/14/17 15:05 Urine RBC 2-5 /hpf (0-5) H 04/14/17 15:05 Urine WBC 0-2 /hpf (0-5) 04/14/17 15:05 Ur Epithelial Cells OCCASIONAL /lpf (FEW) 04/14/17 15:05 Amorphous Sediment MANY URATES (NONE SEEN) 04/14/17 15:05 Urine Bacteria 1+ /hpf (NONE SEEN) H 04/14/17 15:05 Blood Type O POSITIVE 04/14/17 20:36 Antibody Screen NEGATIVE 04/14/17 20:36 Laboratory Results - last 24 hr 04/14/17 04/14/17 04/15/17 20:36 21:57 04:37 WBC 20.0 H RBC 4.39 Hgb 11.7 L Hct 35.5 L MCV 80.8 MCH 26.7 MCHC Differential 33.1 RDW 15.4 Plt Count 344 D MPV 8.9 Band Neutrophils % 7 Lymphocytes % PACKING MACHINE PILOT CAN ROUTER Monocytes % PACKING MACHINE PILOT CAN ROUTER Eosinophils % PACKING MACHINE PILOT CAN ROUTER Neutrophils (Manual) 85 H Lymphocytes 2 L Monocytes 6 Platelet Estimate ADEQUATE Specimen Source Arterial Sample Site Right Radial pH 7.37 pCO2 40.2 pO2 509.9 H HCO3 22.6 Base Excess -2.5 O2 Saturation 99.2 Chau Test POSITIVE Vent Rate 14 Inspired O2 100 Tidal Volume 550 PEEP 5 Pressure (ins/psv/peep) N/A Critical Value SABRINA Sodium Potassium Chloride Carbon Dioxide Anion Gap BUN Creatinine Est GFR ( Amer) Est GFR (Non-Af Amer) BUN/Creatinine Ratio Glucose Calcium Total Bilirubin AST ALT Alkaline Phosphatase Total Protein Albumin Globulin Albumin/Globulin Ratio Blood Type O POSITIVE Antibody Screen NEGATIVE 04/15/17 04:37 WBC RBC Hgb Hct MCV MCH MCHC Differential RDW Plt Count MPV Band Neutrophils % Lymphocytes % Monocytes % Eosinophils % Neutrophils (Manual) Lymphocytes Monocytes Platelet Estimate Specimen Source Sample Site pH pCO2 pO2 HCO3 Base Excess O2 Saturation Chau Test Vent Rate Inspired O2 Tidal Volume PEEP Pressure (ins/psv/peep) Critical Value Sodium 134 L Potassium 4.0 Chloride 101 Carbon Dioxide 22.2 Anion Gap 14.8 BUN 19 Creatinine 1.3 Est GFR ( Amer) > 60.0 Est GFR (Non-Af Amer) > 60.0 BUN/Creatinine Ratio 14.6 Glucose 175 H Calcium 8.0 L Total Bilirubin 1.5 H AST 49 H ALT 43 Alkaline Phosphatase 67 Total Protein 5.5 L Albumin 2.4 L Globulin 3.1 Albumin/Globulin Ratio 0.8 L Blood Type Antibody Screen - Assessment Assessment: Current Active Problems Problem Status Onset Abscess of sigmoid colon due to diverticulitis Acute Diverticulitis of sigmoid colon Acute Obesity Acute Perforation of sigmoid colon due to diverticulitis Acute Peritonitis (acute) generalized Acute Acute abdominal pain. Perforated sigmoid diverticulitis status post exploratory laparotomy and sigmoid colectomy intra-abdominal abscess drainage lysis of pleural Ada procedure and colostomy. Postoperative respiratory failure requiring endotracheal intubation and mechanical ventilation Obesity Asthma Leukocytosis secondary to infection Postop anemia. - Plan Plan: Postoperative care as per Dr. carty. ID consult and follow-up. IV antibiotic. Vent support. Nebulizer treatment. Pulmo consult. GI and DVT prophylaxis. Follow-up lab. Follow up on sr technical sales consultant recommendations. Care plan reviewed and discussed with patient's family at bedside. All questions answered. Overall prognosis guarded. Symptoms management. Medication management.
[2017-04-15] MEDS: Albuterol Nebulizer 2.5mg/3mL HHN SCH (18:54)
[2017-04-15] MEDS: Fluconazole 100mg/50mL 100 MG/50 ML BOTTLE IV SCH (23:10)
[2017-04-16] MEDS: HYDROmorphone 1 mg/mL 1mL Syr IVP PRN ×2 (03:10→22:17)
[2017-04-16] MEDS: metroNIDAZOLE 500mg/NS 100mL 500 MG/100 ML BAG IV SCH ×2 (04:53→14:40)
[2017-04-16 05:43] LABS: ALB/GLOB RATIO 0.7 (1.0-1.8); ANION GAP 11.4 (7.0-16.0); BILIRUBIN,TOTAL 1.4 mg/dL (0.3-1.0); BUN/CREATININE RATIO 12.5; CALCIUM SERUM 7.9 mg/dL (8.6-10.3); CARBON DIOXIDE 24.6 mEq/L (21.0-31.0); CREATININE - SERUM 2.4 mg/dL (0.7-1.3)
[2017-04-16 05:45] LABS: HEMOGLOBIN 10.3 gm/dL (13.2-17.3); MEAN CELL VOLUME 81.7 fl (80-99); MEAN CORPUSCULAR HEMOGLOBIN 26.4 pg (26.0-30.0); MEAN CORPUSCULAR HGB CONC 32.4 pg (28.0-36.0); MEAN PLATELET VOLUME 8.4 fl; PLATELET COUNT 385 Th/cmm (150-400); RED BLOOD COUNT 3.88 Mil/cmm (4.30-5.70); RED CELL DISTRIBUTION WIDTH 15.6 % (11.5-20.0)
[2017-04-16 06:22] LABS: HEMATOCRIT 31.7 % (39.0-49.0); WHITE BLOOD COUNT 21.1 Th/cmm (4.8-10.8)
[2017-04-16 06:31] LABS: BAND NEUTROPHILE 1 % (0-10); NEUTROPHILS 94 % (40-80); TOTAL CELLS COUNTED 100
[2017-04-16 06:32] LABS: PLATELET ESTIMATE ADEQUATE (NORMAL)
[2017-04-16] MEDS: Albuterol Nebulizer 2.5mg/3mL HHN SCH ×2 (07:45→11:51)
[2017-04-16] MEDS: Chlorhexidine Gluconate 0.12% 15mL Mouthwash MM SCH ×2 (08:20→20:14)
[2017-04-16] MEDS: Lactobacillus Rhamnosus 10 Billion CFU Capsule PO SCH (09:00)
--- NOTE | 2017-04-16 09:36 | General Progress Note ---
Subjective - Review of Systems Subjective: Patient is currently intubated and sedated. Discuss with the assigned nurse about overnight event and treatment plan. Objective - Results Result Diagrams: 04/16/17 04:56 04/16/17 04:56 Recent Labs: Laboratory Last Values WBC 21.1 Th/cmm (4.8-10.8) H* 04/16/17 04:56 RBC 3.88 Mil/cmm (4.30-5.70) L 04/16/17 04:56 Hgb 10.3 gm/dL (13.2-17.3) L 04/16/17 04:56 Hct 31.7 % (39.0-49.0) L D 04/16/17 04:56 MCV 81.7 fl (80-99) 04/16/17 04:56 MCH 26.4 pg (26.0-30.0) 04/16/17 04:56 MCHC Differential 32.4 pg (28.0-36.0) 04/16/17 04:56 RDW 15.6 % (11.5-20.0) 04/16/17 04:56 Plt Count 385 Th/cmm (150-400) 04/16/17 04:56 MPV 8.4 fl 04/16/17 04:56 Band Neutrophils % 1 % (0-10) 04/16/17 04:56 Lymphocytes % COMPUTERIZED MILL MILL RECORDER 04/15/17 04:37 Monocytes % COMPUTERIZED MILL MILL RECORDER 04/15/17 04:37 Eosinophils % COMPUTERIZED MILL MILL RECORDER 04/15/17 04:37 Neutrophils (Manual) 94 % (40-80) H 04/16/17 04:56 Lymphocytes 4 % (20-50) L 04/16/17 04:56 Monocytes 1 % (2-10) L 04/16/17 04:56 Platelet Estimate ADEQUATE (NORMAL) 04/16/17 04:56 PT 12.9 SECONDS (9.5-11.5) H 04/14/17 14:55 INR 1.23 (0.5-1.4) 04/14/17 14:55 PTT (Actin FS) 29.8 SECONDS (26.0-38.0) 04/14/17 14:55 Specimen Source Arterial 04/14/17 21:57 Sample Site Right Radial 04/14/17 21:57 pH 7.37 (7.35-7.45) 04/14/17 21:57 pCO2 40.2 mmHg (35.0-45.0) 04/14/17 21:57 pO2 509.9 mmHg (80.0-100.0) H 04/14/17 21:57 HCO3 22.6 mEq/L (20.0-26.0) 04/14/17 21:57 Base Excess -2.5 mEq/L (-3.0-3.0) 04/14/17 21:57 O2 Saturation 99.2 % (92.0-100.0) 04/14/17 21:57 Chau Test POSITIVE 04/14/17 21:57 Vent Rate 14 04/14/17 21:57 Inspired O2 100 04/14/17 21:57 Tidal Volume 550 04/14/17 21:57 PEEP 5 04/14/17 21:57 Pressure (ins/psv/peep) N/A 04/14/17 21:57 Critical Value SABRINA 04/14/17 21:57 Sodium 141 mEq/L (136-145) 04/16/17 04:56 Potassium 4.0 mEq/L (3.5-5.1) 04/16/17 04:56 Chloride 109 mEq/L (98-107) H 04/16/17 04:56 Carbon Dioxide 24.6 mEq/L (21.0-31.0) 04/16/17 04:56 Anion Gap 11.4 (7.0-16.0) 04/16/17 04:56 BUN 30 mg/dL (7-25) H 04/16/17 04:56 Creatinine 2.4 mg/dL (0.7-1.3) H 04/16/17 04:56 Est GFR ( Amer) 36.1 ml/min (>90) 04/16/17 04:56 Est GFR (Non-Af Amer) 29.8 ml/min 04/16/17 04:56 BUN/Creatinine Ratio 12.5 04/16/17 04:56 Glucose 149 mg/dL (70-105) H 04/16/17 04:56 Whole Bld Lactic Acid 1.53 mmol/L (0.60-1.99) 04/14/17 14:55 Calcium 7.9 mg/dL (8.6-10.3) L 04/16/17 04:56 Total Bilirubin 1.4 mg/dL (0.3-1.0) H 04/16/17 04:56 AST 46 U/L (13-39) H 04/16/17 04:56 ALT 32 U/L (7-52) 04/16/17 04:56 Alkaline Phosphatase 67 U/L (34-104) 04/16/17 04:56 Creatine Kinase 136 U/L (30-223) 04/14/17 14:55 Troponin I 0.01 ng/mL (0.01-0.05) 04/16/17 04:56 B-Natriuretic Peptide 85.5 pg/mL (5.0-100.0) 04/14/17 14:55 Total Protein 5.5 gm/dL (6.0-8.3) L 04/16/17 04:56 Albumin 2.3 gm/dL (4.2-5.5) L 04/16/17 04:56 Globulin 3.2 gm/dL 04/16/17 04:56 Albumin/Globulin Ratio 0.7 (1.0-1.8) L 04/16/17 04:56 Triglycerides 106 mg/dL (<150) 04/14/17 14:55 Cholesterol 80 mg/dL (<200) 04/14/17 14:55 LDL Cholesterol Direct 38 mg/dL (75-193) L 04/14/17 14:55 HDL Cholesterol 13 mg/dL (23-92) L 04/14/17 14:55 Amylase 31 U/L (29-103) 04/14/17 14:55 Lipase 15 U/L (11-82) 04/14/17 14:55 Urine Source CLEAN C 04/14/17 15:05 Urine Color ORANGE 04/14/17 15:05 Urine Clarity SLIGHT HAZY (CLEAR) 04/14/17 15:05 Urine pH 5.5 04/14/17 15:05 Ur Specific [place] 1.020 (1.005-1.030) 04/14/17 15:05 Urine Protein 100 mg/dL (NEGATIVE) H 04/14/17 15:05 Urine Glucose (UA) NEGATIVE mg/dL (NEGATIVE) 04/14/17 15:05 Urine Ketones 15 mg/dL (NEGATIVE) H 04/14/17 15:05 Urine Blood SMALL (NEGATIVE) H 04/14/17 15:05 Urine Nitrate NEGATIVE (NEGATIVE) 04/14/17 15:05 Urine Bilirubin SMALL (NEGATIVE) H 04/14/17 15:05 Urine Urobilinogen 1.0 E.U./dL (0.2 - 1.0) 04/14/17 15:05 Ur Leukocyte Esterase NEGATIVE (NEGATIVE) 04/14/17 15:05 Urine RBC 2-5 /hpf (0-5) H 04/14/17 15:05 Urine WBC 0-2 /hpf (0-5) 04/14/17 15:05 Ur Epithelial Cells OCCASIONAL /lpf (FEW) 04/14/17 15:05 Amorphous Sediment MANY URATES (NONE SEEN) 04/14/17 15:05 Urine Bacteria 1+ /hpf (NONE SEEN) H 04/14/17 15:05 Blood Type O POSITIVE 04/14/17 20:36 Antibody Screen NEGATIVE 04/14/17 20:36 - Physical Exam Vitals and I&O: Vital Signs Temp 99.8 F 04/16/17 06:00 Pulse 118 04/16/17 07:45 Resp 19 04/16/17 07:00 BP 100/66 04/16/17 07:00 Pulse Ox 100 04/16/17 07:45 Intake & Output 04/15/17 04/16/17 04/16/17 18:59 06:59 18:59 Intake Total 783.355 481.748 116.593 Output Total 490 600 Balance 293.355 -118.252 116.593 Weight (lbs) 101.605 kg 101.605 kg Intake: Intake, IV Amount 783.355 481.748 116.593 Piperacillin Sodium/ 200 200 Tazobact 4.5 gm In Sodium Chloride 0.9% 100 ml @ 100 mls/hr IV Q6HR [facility] Rx #:[id number] Propofol 1,000 mg In 100 133.355 181.748 116.593 ml @ Titrate IV TITR [facility] Rx#:[id number] Vancomycin HCl 1.25 gm In 250 Sodium Chloride 0.9% 250 ml @ 165 mls/hr IV Q12H [facility] Rx#:[id number] metroNIDAZOLE 500mg/NS 200 100 100mL 500 mg In 100 ml @ 100 mls/hr IV Q8HR [facility] Rx #:[id number] Output: Gastric Drainage 30 250 Drainage 80 30 Left Lower Abdomen 20 Right Lower Abdomen 80 10 Urine 380 300 Other 20 Other: Stool Characteristics Liquid Liquid Bloody Bloody Active Medications: Current Medications Albuterol Sulfate (Albuterol 2.5mg/3ml Neb Ud) 2.5 mg HHN [id number] [facility] Stop: 06/14/17 18:59 Last Admin: 04/16/17 07:45 Dose: 2.5 mg Chlorhexidine Gluconate (Peridex) 15 ml MM 08,1999 [facility] Stop: 06/13/17 19:59 Last Admin: 04/16/17 08:20 Dose: 15 ml Enoxaparin Sodium (Lovenox) 40 mg SUBQ DAILY [facility] Stop: 06/14/17 08:59 Last Admin: 04/15/17 09:07 Dose: 40 mg Hydromorphone HCl (Dilaudid) 1 mg IVP Q4HR PRN PRN Reason: Pain (Severe) Stop: 06/13/17 20:22 Last Admin: 04/16/17 03:10 Dose: 1 mg Dextrose/Sodium Chloride (D5-0.9%Ns) 1,000 mls @ 100 mls/hr IV .Q10H [facility] Stop: 06/13/17 20:14 Last Admin: 04/14/17 23:49 Dose: 100 mls/hr Piperacillin Sod/Tazobactam (Sod 4.5 gm/ Sodium Chloride) 100 mls @ 100 mls/hr IV Q6HR [facility] Stop: 06/14/17 00:00 Last Admin: 04/16/17 06:13 Dose: 100 mls/hr Metronidazole (Flagyl) 500 mg in 100 mls @ 100 mls/hr IV Q8HR [facility] Stop: 06/13/17 20:59 Last Admin: 04/16/17 04:53 Dose: 100 mls/hr Fluconazole (Diflucan) 100 mg in 50 mls @ 50 mls/hr IV Q24HR [facility] Stop: 06/13/17 20:59 Last Admin: 04/15/17 23:10 Dose: 50 mls/hr Propofol (Diprivan) 1,000 mg in 100 mls @ 0 mls/hr IV TITR [facility]; Titrate PRN Reason: Protocol Stop: 06/13/17 21:32 Last Titration: 04/16/17 09:18 Dose: 40 mcg/kg/min, 22.861 mls/hr Vancomycin HCl 1.25 gm/ Sodium (Chloride) 250 mls @ 165 mls/hr IV Q12H [facility] Stop: 06/14/17 13:59 Last Admin: 04/16/17 02:22 Dose: 165 mls/hr Lactobacillus Rhamnosus (Culturelle) 1 each PO DAILY [facility] Stop: 06/15/17 08:59 Miscellaneous (Probiotic Screen) 1 ea PRN PRN PRN Reason: PROTOCOL Stop: 06/14/17 09:39 Miscellaneous (Vancomycin Iv Per Pharmacy) 1 ea MC PRN [facility] Stop: 06/14/17 12:44 Miscellaneous (Ppn Per Pharmacy) 1 ea PRN PRN PRN Reason: PROTOCOL Stop: 06/14/17 11:44 Morphine Sulfate (Morphine) 2 mg IVP Q4H PRN PRN Reason: Severe Pain Stop: 06/13/17 20:08 Last Admin: 04/15/17 21:10 Dose: 2 mg Morphine Sulfate (Morphine) 4 mg IV Q2HR PRN PRN Reason: Pain (Moderate) Stop: 06/13/17 20:19 Ondansetron HCl (Zofran) 4 mg IVP Q6H PRN PRN Reason: Nausea / Vomiting Stop: 06/13/17 20:08 Pantoprazole Sodium (Protonix) 40 mg IVP DAILY [facility] Stop: 06/13/17 20:29 Last Admin: 04/15/17 09:08 Dose: 40 mg Pantoprazole Sodium (Protonix) 40 mg IVP DAILY [facility] Stop: 06/15/17 08:59 General: Other (intubated and sedated) HEENT: Atraumatic, PERRLA, EOMI, Mucous membr. moist/pink, Other (oral endotracheal tube.) Neck: Supple Cardiovascular: Regular rate, Normal S1, Normal S2 Lungs: Other (diffuse rhonchi.) Abdomen: Soft, Distended, Other (intact 1 dressing with colostomy without liquid stool, ROLANDO drain on the right side) Extremities: Other (peripheral pulses are +2) Neurological: Other (unable to assess.) Psych/Mental Status: Other (sedated and intubated.) - Procedures Procedures: Procedures Procedure Code Date BYPASS SIGMOID COLON TO CUTANEOUS, OPEN APPROACH [id number] 04/14/17 PARTIAL REMOVAL OF COLON 29336 04/14/17 RESECTION OF SIGMOID COLON, OPEN APPROACH [id number] 04/14/17 RESPIRATORY VENTILATION, LESS THAN 24 CONSECUTIVE HOURS [id number] 04/14/[place] [address] 04/14/17 Assessment/Plan - Problem List Patient Problems: All Active Problems Abscess of sigmoid colon due to diverticulitis (Acute) K57.20 Diverticulitis of sigmoid colon (Acute) K57.32 Obesity (Acute) E66.9 Perforation of sigmoid colon due to diverticulitis (Acute) K57.20 Peritonitis (acute) generalized (Acute) K65.0 - Assessment Assessment: Current Active Problems Problem Status Onset Abscess of sigmoid colon due to diverticulitis Acute Diverticulitis of sigmoid colon Acute Obesity Acute Perforation of sigmoid colon due to diverticulitis Acute Peritonitis (acute) generalized Acute Perforated sigmoid diverticulitis status post exploratory laparotomy and sigmoid colectomy intra-abdominal abscess drainage lysis of pleural Ada procedure and colostomy. Postoperative respiratory failure requiring endotracheal intubation and mechanical ventilation Obesity Asthma ICU status Leukocytosis secondary to infection Postop anemia. - Plan Plan: Postoperative care as per Dr. carty. ID consult and follow-up. IV antibiotic. Vent support. Nebulizer treatment. Pulmonary follow-up. GI and DVT prophylaxis. Follow-up lab. Follow up on customer sales consultant recommendations. Care plan reviewed and discussed with patient's RN. All questions answered. Overall prognosis guarded. Symptoms management. Medication management.
[2017-04-16 09:45] LABS: ABG SOURCE Arterial; ALLEN TEST YES; HCO3 26.5 mEq/L (20.0-26.0); pH 7.43 (7.35-7.45)
[2017-04-16 09:46] LABS: FIO2 40; MECH RATE 14; MECH VT 550
[2017-04-16] MEDS: Enoxaparin 40 mg/0.4 mL 0.4mL Syr SUBQ SCH (09:52)
[2017-04-16] MEDS: D5-0.9%NS 1,000 ML IV SCH (10:58)
--- NOTE | 2017-04-16 11:20 | Diagnostic Imaging Report ---
Portable chest x-ray HISTORY: Shortness of breath Compared with prior exam of 04/14/2017, the heart remains enlarged. No focal prominent processes. An endotracheal tube tip is approximately 1.0 cm above the ondina. IMPRESSION: 1. No acute focal pulmonary processes
[2017-04-16] MEDS: Albuterol/Ipratropium Neb 3 ML AERS HHN SCH ×3 (15:16→23:17)
[2017-04-16] MEDS ORDERED: DEXTROSE 70% IV SCH (16:00)
[2017-04-16] MEDS ORDERED: AMINO ACIDS IV SCH (16:00)
[2017-04-16] MEDS ORDERED: [UNRECOGNIZED DRUG - OTHER] IV SCH (16:00)
[2017-04-16] MEDS ORDERED: WATER IV SCH (16:00)
[2017-04-16] MEDS ORDERED: MULTIVITAMIN IV SCH (16:00)
[2017-04-16] MEDS: INSULIN ASPART SLIDING SCALE 100 UNITS/ML UNIT SUBQ SCH ×2 (17:21→22:00)
[2017-04-16] MEDS: Sodium Chloride 0.9% 500 ML IV SCH (17:21)
[2017-04-16] MEDS: Budesonide 0.5 Mg/2 mL Ud HHN SCH (18:56)
--- NOTE | 2017-04-16 21:59 | Infectious Disease Prog Note ---
Infectious Disease Subjective - Review of Systems Service Date: 04/16/17 Events since last encounter: No change. Subjective: Intubated orally, on the ventilator support. weaning protocol on. Alert an awake. Infectious Disease Objective - Results Result Diagrams: 04/16/17 04:56 04/16/17 04:56 Recent Labs: Laboratory Last Values WBC 21.1 Th/cmm (4.8-10.8) H* 04/16/17 04:56 RBC 3.88 Mil/cmm (4.30-5.70) L 04/16/17 04:56 Hgb 10.3 gm/dL (13.2-17.3) L 04/16/17 04:56 Hct 31.7 % (39.0-49.0) L D 04/16/17 04:56 MCV 81.7 fl (80-99) 04/16/17 04:56 MCH 26.4 pg (26.0-30.0) 04/16/17 04:56 MCHC Differential 32.4 pg (28.0-36.0) 04/16/17 04:56 RDW 15.6 % (11.5-20.0) 04/16/17 04:56 Plt Count 385 Th/cmm (150-400) 04/16/17 04:56 MPV 8.4 fl 04/16/17 04:56 Band Neutrophils % 1 % (0-10) 04/16/17 04:56 Lymphocytes % [employer] 04/15/17 04:37 Monocytes % [employer] 04/15/17 04:37 Eosinophils % [employer] 04/15/17 04:37 Neutrophils (Manual) 94 % (40-80) H 04/16/17 04:56 Lymphocytes 4 % (20-50) L 04/16/17 04:56 Monocytes 1 % (2-10) L 04/16/17 04:56 Platelet Estimate ADEQUATE (NORMAL) 04/16/17 04:56 PT 12.9 SECONDS (9.5-11.5) H 04/14/17 14:55 INR 1.23 (0.5-1.4) 04/14/17 14:55 PTT (Actin FS) 29.8 SECONDS (26.0-38.0) 04/14/17 14:55 Specimen Source Arterial 04/16/17 09:38 Sample Site Right Radial 04/16/17 09:38 pH 7.43 (7.35-7.45) 04/16/17 09:38 pCO2 40.0 mmHg (35.0-45.0) 04/16/17 09:38 pO2 151.0 mmHg (80.0-100.0) H 04/16/17 09:38 HCO3 26.5 mEq/L (20.0-26.0) H 04/16/17 09:38 Base Excess 2.0 mEq/L (-3.0-3.0) 04/16/17 09:38 O2 Saturation 99.0 % (92.0-100.0) 04/16/17 09:38 Chau Test YES 04/16/17 09:38 Vent Rate 14 04/16/17 09:38 Inspired O2 40 04/16/17 09:38 Tidal Volume 550 04/16/17 09:38 PEEP 5 04/16/17 09:38 Pressure (ins/psv/peep) NA 04/16/17 09:38 Critical Value E.ROSEN 04/16/17 09:38 Sodium 141 mEq/L (136-145) 04/16/17 04:56 Potassium 4.0 mEq/L (3.5-5.1) 04/16/17 04:56 Chloride 109 mEq/L (98-107) H 04/16/17 04:56 Carbon Dioxide 24.6 mEq/L (21.0-31.0) 04/16/17 04:56 Anion Gap 11.4 (7.0-16.0) 04/16/17 04:56 BUN 30 mg/dL (7-25) H 04/16/17 04:56 Creatinine 2.4 mg/dL (0.7-1.3) H 04/16/17 04:56 Est GFR ( Amer) 36.1 ml/min (>90) 04/16/17 04:56 Est GFR (Non-Af Amer) 29.8 ml/min 04/16/17 04:56 BUN/Creatinine Ratio 12.5 04/16/17 04:56 Glucose 149 mg/dL (70-105) H 04/16/17 04:56 POC Glucose 158 MG/DL (70 - 105) H 04/16/17 17:19 Whole Bld Lactic Acid 1.53 mmol/L (0.60-1.99) 04/14/17 14:55 Calcium 7.9 mg/dL (8.6-10.3) L 04/16/17 04:56 Total Bilirubin 1.4 mg/dL (0.3-1.0) H 04/16/17 04:56 AST 46 U/L (13-39) H 04/16/17 04:56 ALT 32 U/L (7-52) 04/16/17 04:56 Alkaline Phosphatase 67 U/L (34-104) 04/16/17 04:56 Creatine Kinase 136 U/L (30-223) 04/14/17 14:55 Troponin I 0.01 ng/mL (0.01-0.05) 04/16/17 04:56 B-Natriuretic Peptide 85.5 pg/mL (5.0-100.0) 04/14/17 14:55 Total Protein 5.5 gm/dL (6.0-8.3) L 04/16/17 04:56 Albumin 2.3 gm/dL (4.2-5.5) L 04/16/17 04:56 Globulin 3.2 gm/dL 04/16/17 04:56 Albumin/Globulin Ratio 0.7 (1.0-1.8) L 04/16/17 04:56 Triglycerides 106 mg/dL (<150) 04/14/17 14:55 Cholesterol 80 mg/dL (<200) 04/14/17 14:55 LDL Cholesterol Direct 38 mg/dL (75-193) L 04/14/17 14:55 HDL Cholesterol 13 mg/dL (23-92) L 04/14/17 14:55 Amylase 31 U/L (29-103) 04/14/17 14:55 Lipase 15 U/L (11-82) 04/14/17 14:55 Urine Source CLEAN C 04/14/17 15:05 Urine Color ORANGE 04/14/17 15:05 Urine Clarity SLIGHT HAZY (CLEAR) 04/14/17 15:05 Urine pH 5.5 04/14/17 15:05 Ur Specific [place] 1.020 (1.005-1.030) 04/14/17 15:05 Urine Protein 100 mg/dL (NEGATIVE) H 04/14/17 15:05 Urine Glucose (UA) NEGATIVE mg/dL (NEGATIVE) 04/14/17 15:05 Urine Ketones 15 mg/dL (NEGATIVE) H 04/14/17 15:05 Urine Blood SMALL (NEGATIVE) H 04/14/17 15:05 Urine Nitrate NEGATIVE (NEGATIVE) 04/14/17 15:05 Urine Bilirubin SMALL (NEGATIVE) H 04/14/17 15:05 Urine Urobilinogen 1.0 E.U./dL (0.2 - 1.0) 04/14/17 15:05 Ur Leukocyte Esterase NEGATIVE (NEGATIVE) 04/14/17 15:05 Urine RBC 2-5 /hpf (0-5) H 04/14/17 15:05 Urine WBC 0-2 /hpf (0-5) 04/14/17 15:05 Ur Epithelial Cells OCCASIONAL /lpf (FEW) 04/14/17 15:05 Amorphous Sediment MANY URATES (NONE SEEN) 04/14/17 15:05 Urine Bacteria 1+ /hpf (NONE SEEN) H 04/14/17 15:05 Vancomycin Trough 16.8 ug/mL (10-20) 04/16/17 13:00 Blood Type O POSITIVE 04/14/17 20:36 Antibody Screen NEGATIVE 04/14/17 20:36 - Physical Exam Vitals and I&O: Vital Signs Temp 98.7 F 04/16/17 20:00 Pulse 93 04/16/17 20:00 Resp 22 04/16/17 20:00 BP 139/84 04/16/17 20:00 Pulse Ox 100 04/16/17 20:00 Intake & Output 04/16/17 04/16/17 04/17/17 06:59 18:59 06:59 Intake Total 581.748 446.472 Output Total 600 550 Balance -18.252 446.472 -550 Weight (lbs) 101.605 kg 117.934 kg Intake: Intake, IV Amount 581.748 446.472 Piperacillin Sodium/ 200 200 Tazobact 4.5 gm In Sodium Chloride 0.9% 100 ml @ 100 mls/hr IV Q6HR [facility] Rx #:[id number] Propofol 1,000 mg In 100 181.748 246.472 ml @ Titrate IV TITR [facility] Rx#:[id number] metroNIDAZOLE 500mg/NS 200 100mL 500 mg In 100 ml @ 100 mls/hr IV Q8HR [facility] Rx #:[id number] Output: Gastric Drainage 250 Drainage 30 30 Left Lower Abdomen 20 Right Lower Abdomen 10 30 Urine 300 500 Other 20 20 Other: Stool Characteristics Liquid Liquid Liquid Bloody Brown Brown Active Medications: Current Medications Albuterol/Ipratropium (Duoneb Neb) 3 ml HHN Q4HRT [facility] Stop: 06/15/17 14:59 Last Admin: 04/16/17 18:56 Dose: 3 ml Budesonide (Pulmicort) 0.5 mg HHN BIDRT [facility] Stop: 06/15/17 18:59 Last Admin: 04/16/17 18:56 Dose: 0.5 mg Chlorhexidine Gluconate (Peridex) 15 ml MM 08,1999 [facility] Stop: 06/13/17 19:59 Last Admin: 04/16/17 20:14 Dose: 15 ml Enoxaparin Sodium (Lovenox) 40 mg SUBQ DAILY [facility] Stop: 06/14/17 08:59 Last Admin: 04/16/17 09:52 Dose: 40 mg Hydromorphone HCl (Dilaudid) 1 mg IVP Q4HR PRN PRN Reason: Pain (Severe) Stop: 06/13/17 20:22 Last Admin: 04/16/17 03:10 Dose: 1 mg Piperacillin Sod/Tazobactam (Sod 4.5 gm/ Sodium Chloride) 100 mls @ 100 mls/hr IV Q6HR [facility] Stop: 06/14/17 00:00 Last Admin: 04/16/17 20:00 Dose: 100 mls/hr Metronidazole (Flagyl) 500 mg in 100 mls @ 100 mls/hr IV Q8HR [facility] Stop: 06/13/17 20:59 Last Admin: 04/16/17 14:40 Dose: 100 mls/hr Fluconazole (Diflucan) 100 mg in 50 mls @ 50 mls/hr IV Q24HR [facility] Stop: 06/13/17 20:59 Last Admin: 04/15/17 23:10 Dose: 50 mls/hr Multivitamins/Minerals 10 ml/Amino Acids/Electrolytes/Dextrose/ Sterile Water 2 ,317 mls @ 90 mls/hr IV .Q24H [facility] Stop: 06/15/17 15:59 Last Admin: 04/16/17 17:20 Dose: 90 mls/hr Sodium Chloride (Nacl 0.9%) 500 mls @ 10 mls/hr IV .Q24H [facility] Stop: 06/15/17 15:59 Last Admin: 04/16/17 17:21 Dose: 10 mls/hr Vancomycin HCl 1 gm/ Sodium (Chloride) 250 mls @ 165 mls/hr IV Q18H [facility] Stop: 06/15/17 19:59 Last Admin: 04/16/17 21:10 Dose: 165 mls/hr Insulin Aspart (Novolog Insulin Sliding Scale) 0 units SUBQ ACHS [facility] PRN Reason: Protocol Stop: 06/15/17 16:29 Last Admin: 04/16/17 17:21 Dose: 2 units Lactobacillus Rhamnosus (Culturelle) 1 each PO DAILY [facility] Stop: 06/15/17 08:59 Last Admin: 04/16/17 09:00 Dose: Not Given Lorazepam (Ativan) 0.5 mg IVP Q4HR PRN; Protocol PRN Reason: Agitation Stop: 06/15/17 13:47 Last Admin: 04/16/17 20:25 Dose: 0.5 mg Miscellaneous (Probiotic Screen) 1 ea MC PRN PRN PRN Reason: PROTOCOL Stop: 06/14/17 09:39 Miscellaneous (Vancomycin Iv Per Pharmacy) 1 ea MC PRN [facility] Stop: 06/14/17 12:44 Miscellaneous (Ppn Per Pharmacy) 1 ea PRN PRN PRN Reason: PROTOCOL Stop: 06/14/17 11:44 Miscellaneous (Clinical Monitoring) 1 ea MC DAILY PRN PRN Reason: RENAL Stop: 06/15/17 12:48 Morphine Sulfate (Morphine) 2 mg IVP Q4H PRN PRN Reason: Severe Pain Stop: 06/13/17 20:08 Last Admin: 04/15/17 21:10 Dose: 2 mg Morphine Sulfate (Morphine) 4 mg IVP Q2HR PRN PRN Reason: Pain (Moderate) Stop: 06/15/17 10:53 Ondansetron HCl (Zofran) 4 mg IVP Q6H PRN PRN Reason: Nausea / Vomiting Stop: 06/13/17 20:08 Pantoprazole Sodium (Protonix) 40 mg IVP DAILY [facility] Stop: 06/15/17 08:59 Last Admin: 04/16/17 09:00 Dose: 40 mg General: no acute distress, well developed, well nourished HEENT: atraumatic, normocephalic Neck: supple, no thyromegaly Cardiovascular: S1S2, regular Lungs: clear to auscultation bilaterally, clear to percussion Abdomen: soft, tender, distended, other (surogcal incision dressed.) Extremities: no cyanosis, no clubbing, no edema Neurological: awake, alert Skin: intact - Procedures Procedures: Procedures Procedure Code Date BYPASS SIGMOID COLON TO CUTANEOUS, OPEN APPROACH [id number] 04/14/17 PARTIAL REMOVAL OF COLON 09467 04/14/17 RESECTION OF SIGMOID COLON, OPEN APPROACH [id number] 04/14/17 RESPIRATORY VENTILATION, LESS THAN 24 CONSECUTIVE HOURS [id number] 04/14/17 VENT MGMT INPAT INIT DAY 92225 04/14/17 Infectious Disease Assmt/Plan - Problem List Patient Problems: All Active Problems Abscess of sigmoid colon due to diverticulitis (Acute) K57.20 Diverticulitis of sigmoid colon (Acute) K57.32 Obesity (Acute) E66.9 Perforation of sigmoid colon due to diverticulitis (Acute) K57.20 Peritonitis (acute) generalized (Acute) K65.0 - Assessment Assessment: 1. Sepsis. 2. Diverticulitis, sigmoid diverticula to with support complicated by multiple abscesses and peritonitis. 3. Post operatively, on ventilator. 4. Peritonitis. Likely polymicrobial. 5. History of asthma. 6. History of arthritis. 7. Distended abdomen likely post operative ileus. Rule out small bowel obstruction. 8. SEKOU. Plan: Continue Zosyn and vancomycin. Add diflucan as patient had fecal peritonitis. DC flagyl. Sepsis workup was performed and follow the sepsis workup. KUB in the morning. Follow-up CBC and CMP in the morning. Otherwise, for fever will use ice packs and if needed Cooling blanket.
--- NOTE | 2017-04-16 22:05 | General Progress Note ---
Subjective - Review of Systems Service Date: 04/16/17 Events since last encounter: more awake, mild incisional pain, family bedside Subjective: awake follows commands Objective - Results Result Diagrams: 04/16/17 04:56 04/16/17 04:56 Recent Labs: Laboratory Last Values WBC 21.1 Th/cmm (4.8-10.8) H* 04/16/17 04:56 RBC 3.88 Mil/cmm (4.30-5.70) L 04/16/17 04:56 Hgb 10.3 gm/dL (13.2-17.3) L 04/16/17 04:56 Hct 31.7 % (39.0-49.0) L D 04/16/17 04:56 MCV 81.7 fl (80-99) 04/16/17 04:56 MCH 26.4 pg (26.0-30.0) 04/16/17 04:56 MCHC Differential 32.4 pg (28.0-36.0) 04/16/17 04:56 RDW 15.6 % (11.5-20.0) 04/16/17 04:56 Plt Count 385 Th/cmm (150-400) 04/16/17 04:56 MPV 8.4 fl 04/16/17 04:56 Band Neutrophils % 1 % (0-10) 04/16/17 04:56 Lymphocytes % INSPECTOR GLASS OR MIRROR 04/15/17 04:37 Monocytes % INSPECTOR GLASS OR MIRROR 04/15/17 04:37 Eosinophils % INSPECTOR GLASS [employer] MIRROR 04/15/17 04:37 Neutrophils (Manual) 94 % (40-80) H 04/16/17 04:56 Lymphocytes 4 % (20-50) L 04/16/17 04:56 Monocytes 1 % (2-10) L 04/16/17 04:56 Platelet Estimate ADEQUATE (NORMAL) 04/16/17 04:56 PT 12.9 SECONDS (9.5-11.5) H 04/14/17 14:55 INR 1.23 (0.5-1.4) 04/14/17 14:55 PTT (Actin FS) 29.8 SECONDS (26.0-38.0) 04/14/17 14:55 Specimen Source Arterial 04/16/17 09:38 Sample Site Right Radial 04/16/17 09:38 pH 7.43 (7.35-7.45) 04/16/17 09:38 pCO2 40.0 mmHg (35.0-45.0) 04/16/17 09:38 pO2 151.0 mmHg (80.0-100.0) H 04/16/17 09:38 HCO3 26.5 mEq/L (20.0-26.0) H 04/16/17 09:38 Base Excess 2.0 mEq/L (-3.0-3.0) 04/16/17 09:38 O2 Saturation 99.0 % (92.0-100.0) 04/16/17 09:38 Chau Test YES 04/16/17 09:38 Vent Rate 14 04/16/17 09:38 Inspired O2 40 04/16/17 09:38 Tidal Volume 550 04/16/17 09:38 PEEP 5 04/16/17 09:38 Pressure (ins/psv/peep) NA 04/16/17 09:38 Critical Value E.ROSEN 04/16/17 09:38 Sodium 141 mEq/L (136-145) 04/16/17 04:56 Potassium 4.0 mEq/L (3.5-5.1) 04/16/17 04:56 Chloride 109 mEq/L (98-107) H 04/16/17 04:56 Carbon Dioxide 24.6 mEq/L (21.0-31.0) 04/16/17 04:56 Anion Gap 11.4 (7.0-16.0) 04/16/17 04:56 BUN 30 mg/dL (7-25) H 04/16/17 04:56 Creatinine 2.4 mg/dL (0.7-1.3) H 04/16/17 04:56 Est GFR ( Amer) 36.1 ml/min (>90) 04/16/17 04:56 Est GFR (Non-Af Amer) 29.8 ml/min 04/16/17 04:56 BUN/Creatinine Ratio 12.5 04/16/17 04:56 Glucose 149 mg/dL (70-105) H 04/16/17 04:56 POC Glucose 158 MG/DL (70 - 105) H 04/16/17 17:19 Whole Bld Lactic Acid 1.53 mmol/L (0.60-1.99) 04/14/17 14:55 Calcium 7.9 mg/dL (8.6-10.3) L 04/16/17 04:56 Total Bilirubin 1.4 mg/dL (0.3-1.0) H 04/16/17 04:56 AST 46 U/L (13-39) H 04/16/17 04:56 ALT 32 U/L (7-52) 04/16/17 04:56 Alkaline Phosphatase 67 U/L (34-104) 04/16/17 04:56 Creatine Kinase 136 U/L (30-223) 04/14/17 14:55 Troponin I 0.01 ng/mL (0.01-0.05) 04/16/17 04:56 B-Natriuretic Peptide 85.5 pg/mL (5.0-100.0) 04/14/17 14:55 Total Protein 5.5 gm/dL (6.0-8.3) L 04/16/17 04:56 Albumin 2.3 gm/dL (4.2-5.5) L 04/16/17 04:56 Globulin 3.2 gm/dL 04/16/17 04:56 Albumin/Globulin Ratio 0.7 (1.0-1.8) L 04/16/17 04:56 Triglycerides 106 mg/dL (<150) 04/14/17 14:55 Cholesterol 80 mg/dL (<200) 04/14/17 14:55 LDL Cholesterol Direct 38 mg/dL (75-193) L 04/14/17 14:55 HDL Cholesterol 13 mg/dL (23-92) L 04/14/17 14:55 Amylase 31 U/L (29-103) 04/14/17 14:55 Lipase 15 U/L (11-82) 04/14/17 14:55 Urine Source CLEAN C 04/14/17 15:05 Urine Color ORANGE 04/14/17 15:05 Urine Clarity SLIGHT HAZY (CLEAR) 04/14/17 15:05 Urine pH 5.5 04/14/17 15:05 Ur Specific [place] 1.020 (1.005-1.030) 04/14/17 15:05 Urine Protein 100 mg/dL (NEGATIVE) H 04/14/17 15:05 Urine Glucose (UA) NEGATIVE mg/dL (NEGATIVE) 04/14/17 15:05 Urine Ketones 15 mg/dL (NEGATIVE) H 04/14/17 15:05 Urine Blood SMALL (NEGATIVE) H 04/14/17 15:05 Urine Nitrate NEGATIVE (NEGATIVE) 04/14/17 15:05 Urine Bilirubin SMALL (NEGATIVE) H 04/14/17 15:05 Urine Urobilinogen 1.0 E.U./dL (0.2 - 1.0) 04/14/17 15:05 Ur Leukocyte Esterase NEGATIVE (NEGATIVE) 04/14/17 15:05 Urine RBC 2-5 /hpf (0-5) H 04/14/17 15:05 Urine WBC 0-2 /hpf (0-5) 04/14/17 15:05 Ur Epithelial Cells OCCASIONAL /lpf (FEW) 04/14/17 15:05 Amorphous Sediment MANY URATES (NONE SEEN) 04/14/17 15:05 Urine Bacteria 1+ /hpf (NONE SEEN) H 04/14/17 15:05 Vancomycin Trough 16.8 ug/mL (10-20) 04/16/17 13:00 Blood Type O POSITIVE 04/14/17 20:36 Antibody Screen NEGATIVE 04/14/17 20:36 - Physical Exam Vitals and I&O: Vital Signs Temp 98.7 F 04/16/17 20:00 Pulse 93 04/16/17 20:00 Resp 22 04/16/17 20:00 BP 139/84 04/16/17 20:00 Pulse Ox 100 04/16/17 20:00 Intake & Output 04/16/17 04/16/17 04/17/17 06:59 18:59 06:59 Intake Total 581.748 446.472 Output Total 600 550 Balance -18.252 446.472 -550 Weight (lbs) 101.605 kg 117.934 kg Intake: Intake, IV Amount 581.748 446.472 Piperacillin Sodium/ 200 200 Tazobact 4.5 gm In Sodium Chloride 0.9% 100 ml @ 100 mls/hr IV Q6HR [facility] Rx #:[id number] Propofol 1,000 mg In 100 181.748 246.472 ml @ Titrate IV TITR [facility] Rx#:[id number] metroNIDAZOLE 500mg/NS 200 100mL 500 mg In 100 ml @ 100 mls/hr IV Q8HR [facility] Rx #:[id number] Output: Gastric Drainage 250 Drainage 30 30 Left Lower Abdomen 20 Right Lower Abdomen 10 30 Urine 300 500 Other 20 20 Other: Stool Characteristics Liquid Liquid Liquid Bloody Brown Brown Active Medications: Current Medications Albuterol/Ipratropium (Duoneb Neb) 3 ml HHN Q4HRT [facility] Stop: 06/15/17 14:59 Last Admin: 04/16/17 18:56 Dose: 3 ml Budesonide (Pulmicort) 0.5 mg HHN BIDRT [facility] Stop: 06/15/17 18:59 Last Admin: 04/16/17 18:56 Dose: 0.5 mg Chlorhexidine Gluconate (Peridex) 15 ml MM 0800,2000 [facility] Stop: 06/13/17 19:59 Last Admin: 04/16/17 20:14 Dose: 15 ml Enoxaparin Sodium (Lovenox) 40 mg SUBQ DAILY [facility] Stop: 06/14/17 08:59 Last Admin: 04/16/17 09:52 Dose: 40 mg Hydromorphone HCl (Dilaudid) 1 mg IVP Q4HR PRN PRN Reason: Pain (Severe) Stop: 06/13/17 20:22 Last Admin: 04/16/17 03:10 Dose: 1 mg Piperacillin Sod/Tazobactam (Sod 4.5 gm/ Sodium Chloride) 100 mls @ 100 mls/hr IV Q6HR [facility] Stop: 06/14/17 00:00 Last Admin: 04/16/17 20:00 Dose: 100 mls/hr Metronidazole (Flagyl) 500 mg in 100 mls @ 100 mls/hr IV Q8HR [facility] Stop: 06/13/17 20:59 Last Admin: 04/16/17 14:40 Dose: 100 mls/hr Fluconazole (Diflucan) 100 mg in 50 mls @ 50 mls/hr IV Q24HR [facility] Stop: 06/13/17 20:59 Last Admin: 04/15/17 23:10 Dose: 50 mls/hr Multivitamins/Minerals 10 ml/Amino Acids/Electrolytes/Dextrose/ Sterile Water 2 ,317 mls @ 90 mls/hr IV .Q24H [facility] Stop: 06/15/17 15:59 Last Admin: 04/16/17 17:20 Dose: 90 mls/hr Sodium Chloride (Nacl 0.9%) 500 mls @ 10 mls/hr IV .Q24H [facility] Stop: 06/15/17 15:59 Last Admin: 04/16/17 17:21 Dose: 10 mls/hr Vancomycin HCl 1 gm/ Sodium (Chloride) 250 mls @ 165 mls/hr IV Q18H [facility] Stop: 06/15/17 19:59 Last Admin: 04/16/17 21:10 Dose: 165 mls/hr Insulin Aspart (Novolog Insulin Sliding Scale) 0 units SUBQ ACHS [facility] PRN Reason: Protocol Stop: 06/15/17 16:29 Last Admin: 04/16/17 17:21 Dose: 2 units Lactobacillus Rhamnosus (Culturelle) 1 each PO DAILY [facility] Stop: 06/15/17 08:59 Last Admin: 04/16/17 09:00 Dose: Not Given Lorazepam (Ativan) 0.5 mg IVP Q4HR PRN; Protocol PRN Reason: Agitation Stop: 06/15/17 13:47 Last Admin: 04/16/17 20:25 Dose: 0.5 mg Miscellaneous (Probiotic Screen) 1 ea MC PRN PRN PRN Reason: PROTOCOL Stop: 06/14/17 09:39 Miscellaneous (Vancomycin Iv Per Pharmacy) 1 ea MC PRN [facility] Stop: 06/14/17 12:44 Miscellaneous (Ppn Per Pharmacy) 1 ea MC PRN PRN PRN Reason: PROTOCOL Stop: 06/14/17 11:44 Miscellaneous (Clinical Monitoring) 1 ea MC DAILY PRN PRN Reason: RENAL Stop: 06/15/17 12:48 Morphine Sulfate (Morphine) 2 mg IVP Q4H PRN PRN Reason: Severe Pain Stop: 06/13/17 20:08 Last Admin: 04/15/17 21:10 Dose: 2 mg Morphine Sulfate (Morphine) 4 mg IVP Q2HR PRN PRN Reason: Pain (Moderate) Stop: 06/15/17 10:53 Ondansetron HCl (Zofran) 4 mg IVP Q6H PRN PRN Reason: Nausea / Vomiting Stop: 06/13/17 20:08 Pantoprazole Sodium (Protonix) 40 mg IVP DAILY [facility] Stop: 06/15/17 08:59 Last Admin: 04/16/17 09:00 Dose: 40 mg General: Other (intubated and sedated) HEENT: Atraumatic, PERRLA, EOMI, Mucous membr. moist/pink, Other (oral endotracheal tube.) Neck: Supple Cardiovascular: Regular rate, Normal S1, Normal S2 Lungs: Other (diffuse rhonchi.) Abdomen: Soft, Distended, Other (intact 1 dressing with colostomy without liquid stool, ROLANDO drain on the right side) Extremities: Other (peripheral pulses are +2) Neurological: Other (unable to assess.) Psych/Mental Status: Other (sedated and intubated.) - Procedures Procedures: Procedures Procedure Code Date BYPASS SIGMOID COLON TO CUTANEOUS, OPEN APPROACH [id number] 04/14/17 PARTIAL REMOVAL OF COLON 88858 04/14/17 RESECTION OF SIGMOID COLON, OPEN APPROACH [id number] 04/14/17 RESPIRATORY VENTILATION, LESS THAN 24 CONSECUTIVE HOURS [id number] 04/14/17 VENT MGMT INPAT INIT DAY 80877 04/14/17 Assessment/Plan - Problem List Patient Problems: All Active Problems Abscess of sigmoid colon due to diverticulitis (Acute) K57.20 Diverticulitis of sigmoid colon (Acute) K57.32 Obesity (Acute) E66.9 Perforation of sigmoid colon due to diverticulitis (Acute) K57.20 Peritonitis (acute) generalized (Acute) K65.0 - Assessment Assessment: POD#2 s/p ex lap, sigmoid colectomy, drainage of peritonitis, lysis adhesions, ROLANDO drain placement. more awake and following commands. resp failure, pulmonary consult and f/u, wean to extubate per pulm continue IVfluids leukocytosis/ tachycardia; continue IV abx TPNutritional support ROLANDO drain expected output adequate urine output; elevated BUN/Creat dvt prophylaxis Lovenox SQ supportive care.... s/w family guarded prognosis. colostomy intact, mildly dusky mucosa.
[2017-04-16] MEDS: Fluconazole 200mg/100mL 200 MG/100 ML BAG IV SCH (23:05)
[2017-04-17] MEDS: HYDROmorphone 1 mg/mL 1mL Syr IVP PRN ×4 (04:04→22:09)
[2017-04-17] MEDS: Albuterol/Ipratropium Neb 3 ML AERS HHN SCH ×6 (04:08→23:11)
[2017-04-17 05:22] LABS: HEMATOCRIT 31.1 % (39.0-49.0); HEMOGLOBIN 9.9 gm/dL (13.2-17.3); MEAN CELL VOLUME 82.2 fl (80-99); MEAN CORPUSCULAR HEMOGLOBIN 26.1 pg (26.0-30.0); MEAN CORPUSCULAR HGB CONC 31.7 pg (28.0-36.0); MEAN PLATELET VOLUME 8.1 fl; PLATELET COUNT 445 Th/cmm (150-400); RED BLOOD COUNT 3.78 Mil/cmm (4.30-5.70); RED CELL DISTRIBUTION WIDTH 15.8 % (11.5-20.0)
[2017-04-17 05:45] LABS: MAGNESIUM 2.5 mg/dL (1.9-2.7); PHOSPHOROUS 3.2 mg/dL (2.5-5.0)
[2017-04-17 05:46] LABS: ALB/GLOB RATIO 0.7 (1.0-1.8); ANION GAP 8.6 (7.0-16.0); BILIRUBIN,TOTAL 0.9 mg/dL (0.3-1.0); CALCIUM SERUM 8.2 mg/dL (8.6-10.3); CARBON DIOXIDE 25.9 mEq/L (21.0-31.0); POTASSIUM SERUM 3.5 mEq/L (3.5-5.1)
[2017-04-17 06:05] LABS: WHITE BLOOD COUNT 16.8 Th/cmm (4.8-10.8)
[2017-04-17 06:07] LABS: NEUTROPHILS 95 % (40-80); PLATELET ESTIMATE INCREASED PLATELETS (NORMAL)
[2017-04-17] MEDS: INSULIN ASPART SLIDING SCALE 100 UNITS/ML UNIT SUBQ SCH ×3 (06:48→17:12)
[2017-04-17] MEDS: Budesonide 0.5 Mg/2 mL Ud HHN SCH ×2 (06:49→19:14)
[2017-04-17] MEDS: Morphine Sulfate 2 mg/mL 1mL Syr IVP PRN ×2 (08:15→15:20)
[2017-04-17] MEDS: Chlorhexidine Gluconate 0.12% 15mL Mouthwash MM SCH ×2 (08:35→19:53)
[2017-04-17] MEDS: Lactobacillus Rhamnosus 10 Billion CFU Capsule PO SCH (08:36)
[2017-04-17] MEDS: Enoxaparin 40 mg/0.4 mL 0.4mL Syr SUBQ SCH (08:36)
--- NOTE | 2017-04-17 09:03 | Diagnostic Imaging Report ---
Exam: KUB 4 views HISTORY: Ileus Findings: Multiple views of the abdomen portably at 0818 hours was reviewed. The study demonstrates a distention stomach with air despite of the NG tube, recommend suction. There is evidence of distention of small large bowel loops throughout the abdomen consistent with ileus. There is evidence of multiple midline laura status post exploratory with a Jean-Mchugh drainage in lower abdomen. Bony structures intact. IMPRESSION: PARALYTIC ILEUS Air distended stomach recommend NG tube suction
[2017-04-17 09:22] LABS: pH 7.46 (7.35-7.45)
[2017-04-17 09:23] LABS: ABG SOURCE Arterial; ALLEN TEST POSITIVE; BE(B) 3.1 mEq/L (-3.0-3.0); HCO3 27.4 mEq/L (20.0-26.0); MECH RATE 8
[2017-04-17 09:24] LABS: FIO2 30; MECH VT 550; PS 15
[2017-04-17 09:25] LABS: CRITICAL VALUES REPORTED BY JC
--- NOTE | 2017-04-17 10:49 | General Progress Note ---
Subjective - Review of Systems Service Date: 04/17/17 Subjective: awake follows commands Objective - Results Result Diagrams: 04/17/17 05:14 04/17/17 05:14 Recent Labs: Laboratory Last Values WBC 16.8 Th/cmm (4.8-10.8) H D 04/17/17 05:14 RBC 3.78 Mil/cmm (4.30-5.70) L 04/17/17 05:14 Hgb 9.9 gm/dL (13.2-17.3) L 04/17/17 05:14 Hct 31.1 % (39.0-49.0) L 04/17/17 05:14 MCV 82.2 fl (80-99) 04/17/17 05:14 MCH 26.1 pg (26.0-30.0) 04/17/17 05:14 MCHC Differential 31.7 pg (28.0-36.0) 04/17/17 05:14 RDW 15.8 % (11.5-20.0) 04/17/17 05:14 Plt Count 445 Th/cmm (150-400) H 04/17/17 05:14 MPV 8.1 fl 04/17/17 05:14 Band Neutrophils % 1 % (0-10) 04/16/17 04:56 Lymphocytes % SOFTWARE PUBLISHER 04/15/17 04:37 Monocytes % SOFTWARE PUBLISHER 04/15/17 04:37 Eosinophils % SOFTWARE PUBLISHER 04/15/17 04:37 Neutrophils (Manual) 95 % (40-80) H 04/17/17 05:14 Lymphocytes 3 % (20-50) L 04/17/17 05:14 Monocytes 2 % (2-10) 04/17/17 05:14 Platelet Estimate INCREASED PLATELETS (NORMAL) 04/17/17 05:14 PT 12.9 SECONDS (9.5-11.5) H 04/14/17 14:55 INR 1.23 (0.5-1.4) 04/14/17 14:55 PTT (Actin FS) 29.8 SECONDS (26.0-38.0) 04/14/17 14:55 Specimen Source Arterial 04/17/17 09:12 Sample Site Right Radial 04/17/17 09:12 pH 7.46 (7.35-7.45) H 04/17/17 09:12 pCO2 38.0 mmHg (35.0-45.0) 04/17/17 09:12 pO2 106.0 mmHg (80.0-100.0) H 04/17/17 09:12 HCO3 27.4 mEq/L (20.0-26.0) H 04/17/17 09:12 Base Excess 3.1 mEq/L (-3.0-3.0) H 04/17/17 09:12 O2 Saturation 98.0 % (92.0-100.0) 04/17/17 09:12 Chau Test POSITIVE 04/17/17 09:12 Vent Rate 8 04/17/17 09:12 Inspired O2 30 04/17/17 09:12 Tidal Volume 550 04/17/17 09:12 PEEP 4 04/17/17 09:12 Pressure (ins/psv/peep) 15 04/17/17 09:12 Critical Value SABRINA 04/17/17 09:12 Sodium 143 mEq/L (136-145) 04/17/17 05:14 Potassium 3.5 mEq/L (3.5-5.1) 04/17/17 05:14 Chloride 112 mEq/L (98-107) H 04/17/17 05:14 Carbon Dioxide 25.9 mEq/L (21.0-31.0) 04/17/17 05:14 Anion Gap 8.6 (7.0-16.0) 04/17/17 05:14 BUN 36 mg/dL (7-25) H 04/17/17 05:14 Creatinine 2.0 mg/dL (0.7-1.3) H 04/17/17 05:14 Est GFR ( Amer) 44.5 ml/min (>90) 04/17/17 05:14 Est GFR (Non-Af Amer) 36.8 ml/min 04/17/17 05:14 BUN/Creatinine Ratio 18.0 04/17/17 05:14 Glucose 178 mg/dL (70-105) H 04/17/17 05:14 POC Glucose 184 MG/DL (70 - 105) H 04/16/17 22:28 Whole Bld Lactic Acid 1.53 mmol/L (0.60-1.99) 04/14/17 14:55 Calcium 8.2 mg/dL (8.6-10.3) L 04/17/17 05:14 Phosphorus 3.2 mg/dL (2.5-5.0) 04/17/17 05:14 Magnesium 2.5 mg/dL (1.9-2.7) 04/17/17 05:14 Total Bilirubin 0.9 mg/dL (0.3-1.0) 04/17/17 05:14 AST 36 U/L (13-39) 04/17/17 05:14 ALT 26 U/L (7-52) 04/17/17 05:14 Alkaline Phosphatase 68 U/L (34-104) 04/17/17 05:14 Creatine Kinase 136 U/L (30-223) 04/14/17 14:55 Troponin I 0.01 ng/mL (0.01-0.05) 04/16/17 04:56 B-Natriuretic Peptide 85.5 pg/mL (5.0-100.0) 04/14/17 14:55 Total Protein 5.5 gm/dL (6.0-8.3) L 04/17/17 05:14 Albumin 2.2 gm/dL (4.2-5.5) L 04/17/17 05:14 Globulin 3.3 gm/dL 04/17/17 05:14 Albumin/Globulin Ratio 0.7 (1.0-1.8) L 04/17/17 05:14 Triglycerides 173 mg/dL (<150) H 04/17/17 05:14 Cholesterol 80 mg/dL (<200) 04/14/17 14:55 LDL Cholesterol Direct 38 mg/dL (75-193) L 04/14/17 14:55 HDL Cholesterol 13 mg/dL (23-92) L 04/14/17 14:55 Amylase 31 U/L (29-103) 04/14/17 14:55 Lipase 15 U/L (11-82) 04/14/17 14:55 Urine Source CLEAN C 04/14/17 15:05 Urine Color ORANGE 04/14/17 15:05 Urine Clarity SLIGHT HAZY (CLEAR) 04/14/17 15:05 Urine pH 5.5 04/14/17 15:05 Ur Specific [place] 1.020 (1.005-1.030) 04/14/17 15:05 Urine Protein 100 mg/dL (NEGATIVE) H 04/14/17 15:05 Urine Glucose (UA) NEGATIVE mg/dL (NEGATIVE) 04/14/17 15:05 Urine Ketones 15 mg/dL (NEGATIVE) H 04/14/17 15:05 Urine Blood SMALL (NEGATIVE) H 04/14/17 15:05 Urine Nitrate NEGATIVE (NEGATIVE) 04/14/17 15:05 Urine Bilirubin SMALL (NEGATIVE) H 04/14/17 15:05 Urine Urobilinogen 1.0 E.U./dL (0.2 - 1.0) 04/14/17 15:05 Ur Leukocyte Esterase NEGATIVE (NEGATIVE) 04/14/17 15:05 Urine RBC 2-5 /hpf (0-5) H 04/14/17 15:05 Urine WBC 0-2 /hpf (0-5) 04/14/17 15:05 Ur Epithelial Cells OCCASIONAL /lpf (FEW) 04/14/17 15:05 Amorphous Sediment MANY URATES (NONE SEEN) 04/14/17 15:05 Urine Bacteria 1+ /hpf (NONE SEEN) H 04/14/17 15:05 Vancomycin Trough 16.8 ug/mL (10-20) 04/16/17 13:00 Blood Type O POSITIVE 04/14/17 20:36 Antibody Screen NEGATIVE 04/14/17 20:36 - Physical Exam Vitals and I&O: Vital Signs Temp 98.5 F 04/17/17 04:00 Pulse 101 04/17/17 09:34 Resp 21 04/17/17 06:59 BP 155/91 04/17/17 06:59 Pulse Ox 99 04/17/17 09:34 Intake & Output 04/16/17 04/17/17 04/17/17 18:59 06:59 18:59 Intake Total 446.472 550 Output Total 1280 Balance 446.472 -730 Weight (lbs) 106.594 kg Intake: Intake, IV Amount 446.472 550 Fluconazole 200mg/100mL 100 200 mg In 100 ml @ 100 mls/hr IV Q24HR [facility] Rx#: [id number] Piperacillin Sodium/ 200 200 Tazobact 4.5 gm In Sodium Chloride 0.9% 100 ml @ 100 mls/hr IV Q6HR [facility] Rx #:[id number] Propofol 1,000 mg In 100 246.472 ml @ Titrate IV TITR [facility] Rx#:[id number] Vancomycin HCl 1 gm In 250 Sodium Chloride 0.9% 250 ml @ 165 mls/hr IV Q18H [facility] Rx#:[id number] Oral 0 Output: Drainage 100 Left Lower Abdomen 10 Right Lower Abdomen 90 Urine 1150 Stool 10 Other 20 Other: Stool Characteristics Liquid Liquid Liquid Brown Brown Brown Bloody Active Medications: Current Medications Albuterol/Ipratropium (Duoneb Neb) 3 ml HHN Q4HRT [facility] Stop: 06/15/17 14:59 Last Admin: 04/17/17 06:49 Dose: 3 ml Budesonide (Pulmicort) 0.5 mg HHN BIDRT [facility] Stop: 06/15/17 18:59 Last Admin: 04/17/17 06:49 Dose: 0.5 mg Chlorhexidine Gluconate (Peridex) 15 ml MM 0800,1999 [facility] Stop: 06/13/17 19:59 Last Admin: 04/17/17 08:35 Dose: 15 ml Enoxaparin Sodium (Lovenox) 40 mg SUBQ DAILY [facility] Stop: 06/14/17 08:59 Last Admin: 04/17/17 08:36 Dose: 40 mg Hydromorphone HCl (Dilaudid) 1 mg IVP Q4HR PRN PRN Reason: Pain (Severe) Stop: 06/13/17 20:22 Last Admin: 04/17/17 04:04 Dose: 1 mg Piperacillin Sod/Tazobactam (Sod 4.5 gm/ Sodium Chloride) 100 mls @ 100 mls/hr IV Q6HR [facility] Stop: 06/14/17 00:00 Last Admin: 04/17/17 06:02 Dose: 100 mls/hr Multivitamins/Minerals 10 ml/Amino Acids/Electrolytes/Dextrose/ Sterile Water 2 ,317 mls @ 90 mls/hr IV .Q24H [facility] Stop: 04/17/17 15:59 Last Admin: 04/16/17 17:20 Dose: 90 mls/hr Sodium Chloride (Nacl 0.9%) 500 mls @ 10 mls/hr IV .Q24H [facility] Stop: 06/15/17 15:59 Last Admin: 04/16/17 17:21 Dose: 10 mls/hr Vancomycin HCl 1 gm/ Sodium (Chloride) 250 mls @ 165 mls/hr IV Q18H [facility] Stop: 06/15/17 19:59 Last Infusion: 04/16/17 22:41 Dose: Infused Fluconazole (Diflucan) 200 mg in 100 mls @ 100 mls/hr IV Q24HR [facility] Stop: 06/15/17 22:59 Last Infusion: 04/17/17 00:05 Dose: Infused Multivitamins/Minerals 10 ml/Amino Acids/Electrolytes/ Fat Emulsion Intravenous / Dextrose 2,160 mls @ 90 mls/hr IV .Q24H [facility] Stop: 06/16/17 15:59 Insulin Aspart (Novolog Insulin Sliding Scale) 0 units SUBQ ACHS [facility] PRN Reason: Protocol Stop: 06/15/17 16:29 Last Admin: 04/17/17 06:48 Dose: 2 units Lactobacillus Rhamnosus (Culturelle) 1 each PO DAILY [facility] Stop: 06/15/17 08:59 Last Admin: 04/17/17 08:36 Dose: 1 each Lorazepam (Ativan) 0.5 mg IVP Q4HR PRN; Protocol PRN Reason: Agitation Stop: 06/15/17 13:47 Last Admin: 04/17/17 10:05 Dose: 0.5 mg Miscellaneous (Probiotic Screen) 1 ea PRN PRN PRN Reason: PROTOCOL Stop: 06/14/17 09:39 Miscellaneous (Vancomycin Iv Per Pharmacy) 1 ea MC PRN [facility] Stop: 06/14/17 12:44 Miscellaneous (Ppn Per Pharmacy) 1 ea PRN PRN PRN Reason: PROTOCOL Stop: 06/14/17 11:44 Miscellaneous (Clinical Monitoring) 1 ea DAILY PRN PRN Reason: RENAL Stop: 06/15/17 12:48 Morphine Sulfate (Morphine) 2 mg IVP Q4H PRN PRN Reason: Severe Pain Stop: 06/13/17 20:08 Last Admin: 04/17/17 08:15 Dose: 2 mg Morphine Sulfate (Morphine) 4 mg IVP Q2HR PRN PRN Reason: Pain (Moderate) Stop: 06/15/17 10:53 Ondansetron HCl (Zofran) 4 mg IVP Q6H PRN PRN Reason: Nausea / Vomiting Stop: 06/13/17 20:08 Pantoprazole Sodium (Protonix) 40 mg IVP DAILY [facility] Stop: 06/15/17 08:59 Last Admin: 04/17/17 08:35 Dose: 40 mg General: Other (intubated and sedated) HEENT: Atraumatic, PERRLA, EOMI, Mucous membr. moist/pink, Other (oral endotracheal tube.) Neck: Supple Cardiovascular: Regular rate, Normal S1, Normal S2 Lungs: Other (diffuse rhonchi.) Abdomen: Soft, Distended, Other (intact 1 dressing with colostomy without liquid stool, ROLANDO drain on the right side) Extremities: Other (peripheral pulses are +2) Neurological: Other (unable to assess.) Psych/Mental Status: Other (sedated and intubated.) - Procedures Procedures: Procedures Procedure Code Date BYPASS SIGMOID COLON TO CUTANEOUS, OPEN APPROACH [id number] 04/14/17 PARTIAL REMOVAL OF COLON 93057 04/14/17 RESECTION OF SIGMOID COLON, OPEN APPROACH [id number] 04/14/17 RESPIRATORY VENTILATION, LESS THAN 24 CONSECUTIVE HOURS [id number] 04/14/17 VENT MGMT INPAT INIT DAY 90557 04/14/17 Assessment/Plan - Problem List Patient Problems: All Active Problems Abscess of sigmoid colon due to diverticulitis (Acute) K57.20 Diverticulitis of sigmoid colon (Acute) K57.32 Obesity (Acute) E66.9 Perforation of sigmoid colon due to diverticulitis (Acute) K57.20 Peritonitis (acute) generalized (Acute) K65.0 - Assessment Assessment: POD#3 s/p ex lap, sigmoid colectomy, drainage of peritonitis, lysis adhesions, ROLANDO drain placement. more awake and following commands. resp failure, pulmonary consult and f/u, wean to extubate per pulm continue IVfluids leukocytosis/ tachycardia; continue IV abx TPNutritional support ROLANDO drain expected output adequate urine output; elevated BUN/Creat, renal f/u dvt prophylaxis Lovenox SQ supportive care.... s/w family guarded prognosis. colostomy intact, mildly dusky mucosa.
--- NOTE | 2017-04-17 11:24 | Operative Report ---
Operative Report - Surgery Date of Surgery:: 04/17/2017 Procedure:: placement RIJ triple lumen central line catheter u/s guidance for vascular access. Indication for procedure:: tpn, iv fluids, iv abx, blood draws, critical pt Anesthesia:: Anesthesiologist: Anesthesia: local Preoperative diagnosis:: need for central iv access Postoperative diagnosis:: same Description of Procedure:: consent obtained prepped and draped R neck u/s machine idendify RIJ vein local anesthesia cannulate RIJ vein w/ large bore needle, guidewire placed dilation, cath placed over guidewire using seldinger technique good venous drawback from all 3 ports, flushed w/ NS sutured in place, check CXR may use
--- NOTE | 2017-04-17 11:51 | Diagnostic Imaging Report ---
Exam: Portable examination of chest HISTORY: Central line placement Findings: Portable examination of the chest 1139 hours was reviewed. No prior studies available comparison. Endotracheal tube terminates 4 cm above the ondina. Right-sided jugular catheter terminates in superior vena cava. There is no evidence of pneumothorax. Lung parenchyma is well expanded the costophrenic angles are clear. IMPRESSION: 1. Right jugular catheter with tip in superior vena cava, no acute disease.
--- NOTE | 2017-04-17 12:10 | General Progress Note ---
Subjective - Review of Systems Subjective: Patient is currently intubated and sedated. More alert and awake. Discuss with the assigned nurse about overnight event and treatment plan. Objective - Results Result Diagrams: 04/17/17 05:14 04/17/17 05:14 Recent Labs: Laboratory Last Values WBC 16.8 Th/cmm (4.8-10.8) H D 04/17/17 05:14 RBC 3.78 Mil/cmm (4.30-5.70) L 04/17/17 05:14 Hgb 9.9 gm/dL (13.2-17.3) L 04/17/17 05:14 Hct 31.1 % (39.0-49.0) L 04/17/17 05:14 MCV 82.2 fl (80-99) 04/17/17 05:14 MCH 26.1 pg (26.0-30.0) 04/17/17 05:14 MCHC Differential 31.7 pg (28.0-36.0) 04/17/17 05:14 RDW 15.8 % (11.5-20.0) 04/17/17 05:14 Plt Count 445 Th/cmm (150-400) H 04/17/17 05:14 MPV 8.1 fl 04/17/17 05:14 Band Neutrophils % 1 % (0-10) 04/16/17 04:56 Lymphocytes % ROOMING HOUSE KEEPER 04/15/17 04:37 Monocytes % ROOMING HOUSE KEEPER 04/15/17 04:37 Eosinophils % ROOMING HOUSE KEEPER 04/15/17 04:37 Neutrophils (Manual) 95 % (40-80) H 04/17/17 05:14 Lymphocytes 3 % (20-50) L 04/17/17 05:14 Monocytes 2 % (2-10) 04/17/17 05:14 Platelet Estimate INCREASED PLATELETS (NORMAL) 04/17/17 05:14 PT 12.9 SECONDS (9.5-11.5) H 04/14/17 14:55 INR 1.23 (0.5-1.4) 04/14/17 14:55 PTT (Actin FS) 29.8 SECONDS (26.0-38.0) 04/14/17 14:55 Specimen Source Arterial 04/17/17 09:12 Sample Site Right Radial 04/17/17 09:12 pH 7.46 (7.35-7.45) H 04/17/17 09:12 pCO2 38.0 mmHg (35.0-45.0) 04/17/17 09:12 pO2 106.0 mmHg (80.0-100.0) H 04/17/17 09:12 HCO3 27.4 mEq/L (20.0-26.0) H 04/17/17 09:12 Base Excess 3.1 mEq/L (-3.0-3.0) H 04/17/17 09:12 O2 Saturation 98.0 % (92.0-100.0) 04/17/17 09:12 Chau Test POSITIVE 04/17/17 09:12 Vent Rate 8 04/17/17 09:12 Inspired O2 30 04/17/17 09:12 Tidal Volume 550 04/17/17 09:12 PEEP 4 04/17/17 09:12 Pressure (ins/psv/peep) 15 04/17/17 09:12 Critical Value SABRINA 04/17/17 09:12 Sodium 143 mEq/L (136-145) 04/17/17 05:14 Potassium 3.5 mEq/L (3.5-5.1) 04/17/17 05:14 Chloride 112 mEq/L (98-107) H 04/17/17 05:14 Carbon Dioxide 25.9 mEq/L (21.0-31.0) 04/17/17 05:14 Anion Gap 8.6 (7.0-16.0) 04/17/17 05:14 BUN 36 mg/dL (7-25) H 04/17/17 05:14 Creatinine 2.0 mg/dL (0.7-1.3) H 04/17/17 05:14 Est GFR ( Amer) 44.5 ml/min (>90) 04/17/17 05:14 Est GFR (Non-Af Amer) 36.8 ml/min 04/17/17 05:14 BUN/Creatinine Ratio 18.0 04/17/17 05:14 Glucose 178 mg/dL (70-105) H 04/17/17 05:14 POC Glucose 184 MG/DL (70 - 105) H 04/16/17 22:28 Whole Bld Lactic Acid 1.53 mmol/L (0.60-1.99) 04/14/17 14:55 Calcium 8.2 mg/dL (8.6-10.3) L 04/17/17 05:14 Phosphorus 3.2 mg/dL (2.5-5.0) 04/17/17 05:14 Magnesium 2.5 mg/dL (1.9-2.7) 04/17/17 05:14 Total Bilirubin 0.9 mg/dL (0.3-1.0) 04/17/17 05:14 AST 36 U/L (13-39) 04/17/17 05:14 ALT 26 U/L (7-52) 04/17/17 05:14 Alkaline Phosphatase 68 U/L (34-104) 04/17/17 05:14 Creatine Kinase 136 U/L (30-223) 04/14/17 14:55 Troponin I 0.01 ng/mL (0.01-0.05) 04/16/17 04:56 B-Natriuretic Peptide 85.5 pg/mL (5.0-100.0) 04/14/17 14:55 Total Protein 5.5 gm/dL (6.0-8.3) L 04/17/17 05:14 Albumin 2.2 gm/dL (4.2-5.5) L 04/17/17 05:14 Globulin 3.3 gm/dL 04/17/17 05:14 Albumin/Globulin Ratio 0.7 (1.0-1.8) L 04/17/17 05:14 Triglycerides 173 mg/dL (<150) H 04/17/17 05:14 Cholesterol 80 mg/dL (<200) 04/14/17 14:55 LDL Cholesterol Direct 38 mg/dL (75-193) L 04/14/17 14:55 HDL Cholesterol 13 mg/dL (23-92) L 04/14/17 14:55 Amylase 31 U/L (29-103) 04/14/17 14:55 Lipase 15 U/L (11-82) 04/14/17 14:55 Urine Source CLEAN C 04/14/17 15:05 Urine Color ORANGE 04/14/17 15:05 Urine Clarity SLIGHT HAZY (CLEAR) 04/14/17 15:05 Urine pH 5.5 04/14/17 15:05 Ur Specific [place] 1.020 (1.005-1.030) 04/14/17 15:05 Urine Protein 100 mg/dL (NEGATIVE) H 04/14/17 15:05 Urine Glucose (UA) NEGATIVE mg/dL (NEGATIVE) 04/14/17 15:05 Urine Ketones 15 mg/dL (NEGATIVE) H 04/14/17 15:05 Urine Blood SMALL (NEGATIVE) H 04/14/17 15:05 Urine Nitrate NEGATIVE (NEGATIVE) 04/14/17 15:05 Urine Bilirubin SMALL (NEGATIVE) H 04/14/17 15:05 Urine Urobilinogen 1.0 E.U./dL (0.2 - 1.0) 04/14/17 15:05 Ur Leukocyte Esterase NEGATIVE (NEGATIVE) 04/14/17 15:05 Urine RBC 2-5 /hpf (0-5) H 04/14/17 15:05 Urine WBC 0-2 /hpf (0-5) 04/14/17 15:05 Ur Epithelial Cells OCCASIONAL /lpf (FEW) 04/14/17 15:05 Amorphous Sediment MANY URATES (NONE SEEN) 04/14/17 15:05 Urine Bacteria 1+ /hpf (NONE SEEN) H 04/14/17 15:05 Vancomycin Trough 16.8 ug/mL (10-20) 04/16/17 13:00 Blood Type O POSITIVE 04/14/17 20:36 Antibody Screen NEGATIVE 04/14/17 20:36 - Physical Exam Vitals and I&O: Vital Signs Temp 98.5 F 04/17/17 04:00 Pulse 113 04/17/17 10:51 Resp 21 04/17/17 06:59 BP 155/91 04/17/17 06:59 Pulse Ox 100 04/17/17 10:51 Intake & Output 04/16/17 04/17/17 04/17/17 18:59 06:59 18:59 Intake Total 446.472 550 100 Output Total 1280 Balance 446.472 -730 100 Weight (lbs) 106.594 kg Intake: Intake, IV Amount 446.472 550 100 Fluconazole 200mg/100mL 100 200 mg In 100 ml @ 100 mls/hr IV Q24HR [facility] Rx#: [id number] Piperacillin Sodium/ 200 200 100 Tazobact 4.5 gm In Sodium Chloride 0.9% 100 ml @ 100 mls/hr IV Q6HR [facility] Rx #:[id number] Propofol 1,000 mg In 100 246.472 ml @ Titrate IV TITR [facility] Rx#:[id number] Vancomycin HCl 1 gm In 250 Sodium Chloride 0.9% 250 ml @ 165 mls/hr IV Q18H [facility] Rx#:[id number] Oral 0 Output: Drainage 100 Left Lower Abdomen 10 Right Lower Abdomen 90 Urine 1150 Stool 10 Other 20 Other: Stool Characteristics Liquid Liquid Liquid Brown Brown Brown Bloody Active Medications: Current Medications Albuterol/Ipratropium (Duoneb Neb) 3 ml HHN Q4HRT [facility] Stop: 06/15/17 14:59 Last Admin: 04/17/17 10:51 Dose: 3 ml Budesonide (Pulmicort) 0.5 mg HHN BIDRT [facility] Stop: 06/15/17 18:59 Last Admin: 04/17/17 06:49 Dose: 0.5 mg Chlorhexidine Gluconate (Peridex) 15 ml MM 0800,2000 [facility] Stop: 06/13/17 19:59 Last Admin: 04/17/17 08:35 Dose: 15 ml Enoxaparin Sodium (Lovenox) 40 mg SUBQ DAILY [facility] Stop: 06/14/17 08:59 Last Admin: 04/17/17 08:36 Dose: 40 mg Hydromorphone HCl (Dilaudid) 1 mg IVP Q4HR PRN PRN Reason: Pain (Severe) Stop: 06/13/17 20:22 Last Admin: 04/17/17 11:28 Dose: 1 mg Piperacillin Sod/Tazobactam (Sod 4.5 gm/ Sodium Chloride) 100 mls @ 100 mls/hr IV Q6HR [facility] Stop: 06/14/17 00:00 Last Admin: 04/17/17 11:28 Dose: 100 mls/hr Multivitamins/Minerals 10 ml/Amino Acids/Electrolytes/Dextrose/ Sterile Water 2 ,317 mls @ 90 mls/hr IV .Q24H [facility] Stop: 04/17/17 15:59 Last Admin: 04/16/17 17:20 Dose: 90 mls/hr Sodium Chloride (Nacl 0.9%) 500 mls @ 10 mls/hr IV .Q24H [facility] Stop: 06/15/17 15:59 Last Admin: 04/16/17 17:21 Dose: 10 mls/hr Vancomycin HCl 1 gm/ Sodium (Chloride) 250 mls @ 165 mls/hr IV Q18H [facility] Stop: 06/15/17 19:59 Last Infusion: 04/16/17 22:41 Dose: Infused Fluconazole (Diflucan) 200 mg in 100 mls @ 100 mls/hr IV Q24HR [facility] Stop: 06/15/17 22:59 Last Infusion: 04/17/17 00:05 Dose: Infused Multivitamins/Minerals 10 ml/Amino Acids/Electrolytes/ Fat Emulsion Intravenous / Dextrose 2,160 mls @ 90 mls/hr IV .Q24H [facility] Stop: 06/16/17 15:59 Insulin Aspart (Novolog Insulin Sliding Scale) 0 units SUBQ ACHS [facility] PRN Reason: Protocol Stop: 06/15/17 16:29 Last Admin: 04/17/17 11:38 Dose: 2 units Lactobacillus Rhamnosus (Culturelle) 1 each PO DAILY [facility] Stop: 06/15/17 08:59 Last Admin: 04/17/17 08:36 Dose: 1 each Lorazepam (Ativan) 0.5 mg IVP Q4HR PRN; Protocol PRN Reason: Agitation Stop: 06/15/17 13:47 Last Admin: 04/17/17 10:05 Dose: 0.5 mg Miscellaneous (Probiotic Screen) 1 ea PRN PRN PRN Reason: PROTOCOL Stop: 06/14/17 09:39 Miscellaneous (Vancomycin Iv Per Pharmacy) 1 ea PRN [facility] Stop: 06/14/17 12:44 Miscellaneous (Ppn Per Pharmacy) 1 [facility] PRN PRN PRN Reason: PROTOCOL Stop: 06/14/17 11:44 Miscellaneous (Clinical Monitoring) 1 ea DAILY PRN PRN Reason: RENAL Stop: 06/15/17 12:48 Morphine Sulfate (Morphine) 2 mg IVP Q4H PRN PRN Reason: Severe Pain Stop: 06/13/17 20:08 Last Admin: 04/17/17 08:15 Dose: 2 mg Morphine Sulfate (Morphine) 4 mg IVP Q2HR PRN PRN Reason: Pain (Moderate) Stop: 06/15/17 10:53 Ondansetron HCl (Zofran) 4 mg IVP Q6H PRN PRN Reason: Nausea / Vomiting Stop: 06/13/17 20:08 Pantoprazole Sodium (Protonix) 40 mg IVP DAILY [facility] Stop: 06/15/17 08:59 Last Admin: 04/17/17 08:35 Dose: 40 mg General: Alert, Other (intubated and sedated) HEENT: Atraumatic, PERRLA, EOMI, Mucous membr. moist/pink, Other (oral endotracheal tube.) Neck: Supple Cardiovascular: Regular rate, Normal S1, Normal S2 Lungs: Other (diffuse rhonchi.) Abdomen: Soft, Distended Extremities: Other (peripheral pulses are +2) Neurological: Other (unable to assess.) Psych/Mental Status: Other (sedated and intubated.) - Procedures Procedures: Procedures Procedure Code Date BYPASS SIGMOID COLON TO CUTANEOUS, OPEN APPROACH [id number] 04/14/17 PARTIAL REMOVAL OF COLON 52979 04/14/17 RESECTION OF SIGMOID COLON, OPEN APPROACH [id number] 04/14/17 RESPIRATORY VENTILATION, LESS THAN 24 CONSECUTIVE HOURS [id number] 04/14/17 VENT MGMT INPAT INIT DAY 14001 04/14/17 Assessment/Plan - Problem List Patient Problems: All Active Problems Abscess of sigmoid colon due to diverticulitis (Acute) K57.20 Diverticulitis of sigmoid colon (Acute) K57.32 Obesity (Acute) E66.9 Perforation of sigmoid colon due to diverticulitis (Acute) K57.20 Peritonitis (acute) generalized (Acute) K65.0 - Assessment Assessment: Current Active Problems Problem Status Onset Abscess of sigmoid colon due to diverticulitis Acute Diverticulitis of sigmoid colon Acute Obesity Acute Perforation of sigmoid colon due to diverticulitis Acute Peritonitis (acute) generalized Acute Perforated sigmoid diverticulitis status post exploratory laparotomy and sigmoid colectomy intra-abdominal abscess drainage lysis of pleural Ada procedure and colostomy. Postoperative respiratory failure requiring endotracheal intubation and mechanical ventilation Obesity Asthma ICU status Leukocytosis secondary to infection Postop anemia. - Plan Plan: Postoperative care as per Dr. carty. ID consult and follow-up. IV antibiotic. Vent support wean off As tolerated. TPN. Nebulizer treatment. Pulmonary follow-up. GI and DVT prophylaxis. Follow-up lab. Follow up on curriculum consultant recommendations. Care plan reviewed and discussed with patient's RN. All questions answered. Overall prognosis guarded. Symptoms management. Medication management.
[2017-04-17] MEDS: Sodium Chloride 0.9% 500 ML IV SCH ×2 (13:38→17:10)
[2017-04-17] MEDS ORDERED: [UNRECOGNIZED DRUG - OTHER] IV SCH (16:00)
[2017-04-17] MEDS ORDERED: AMINO ACIDS IV SCH (16:00)
[2017-04-17] MEDS ORDERED: MULTIVITAMIN IV SCH (16:00)
[2017-04-17] MEDS ORDERED: ELECTROLYTES IV SCH (16:00)
[2017-04-17] MEDS: Fluconazole 200mg/100mL 200 MG/100 ML BAG IV SCH (23:04)
--- NOTE | 2017-04-18 00:01 | Infectious Disease Prog Note ---
Infectious Disease Subjective - Review of Systems Service Date: 04/17/17 Subjective: Intubated orally, on the ventilator support. weaning protocol on. Alert an awake. Infectious Disease Objective - Results Result Diagrams: 04/18/17 06:55 04/18/17 06:55 Recent Labs: Laboratory Last Values WBC 16.8 Th/cmm (4.8-10.8) H D 04/17/17 05:14 RBC 3.78 Mil/cmm (4.30-5.70) L 04/17/17 05:14 Hgb 9.9 gm/dL (13.2-17.3) L 04/17/17 05:14 Hct 31.1 % (39.0-49.0) L 04/17/17 05:14 MCV 82.2 fl (80-99) 04/17/17 05:14 MCH 26.1 pg (26.0-30.0) 04/17/17 05:14 MCHC Differential 31.7 pg (28.0-36.0) 04/17/17 05:14 RDW 15.8 % (11.5-20.0) 04/17/17 05:14 Plt Count 445 Th/cmm (150-400) H 04/17/17 05:14 MPV 8.1 fl 04/17/17 05:14 Band Neutrophils % 1 % (0-10) 04/16/17 04:56 Lymphocytes % INSTRUMENTATION DESIGNER 04/15/17 04:37 Monocytes % INSTRUMENTATION DESIGNER 04/15/17 04:37 Eosinophils % INSTRUMENTATION DESIGNER 04/15/17 04:37 Neutrophils (Manual) 95 % (40-80) H 04/17/17 05:14 Lymphocytes 3 % (20-50) L 04/17/17 05:14 Monocytes 2 % (2-10) 04/17/17 05:14 Platelet Estimate INCREASED PLATELETS (NORMAL) 04/17/17 05:14 PT 12.9 SECONDS (9.5-11.5) H 04/14/17 14:55 INR 1.23 (0.5-1.4) 04/14/17 14:55 PTT (Actin FS) 29.8 SECONDS (26.0-38.0) 04/14/17 14:55 Specimen Source Arterial 04/17/17 09:12 Sample Site Right Radial 04/17/17 09:12 pH 7.46 (7.35-7.45) H 04/17/17 09:12 pCO2 38.0 mmHg (35.0-45.0) 04/17/17 09:12 pO2 106.0 mmHg (80.0-100.0) H 04/17/17 09:12 HCO3 27.4 mEq/L (20.0-26.0) H 04/17/17 09:12 Base Excess 3.1 mEq/L (-3.0-3.0) H 04/17/17 09:12 O2 Saturation 98.0 % (92.0-100.0) 04/17/17 09:12 Chau Test POSITIVE 04/17/17 09:12 Vent Rate 8 04/17/17 09:12 Inspired O2 30 04/17/17 09:12 Tidal Volume 550 04/17/17 09:12 PEEP 4 04/17/17 09:12 Pressure (ins/psv/peep) 15 04/17/17 09:12 Critical Value SABRINA 04/17/17 09:12 Sodium 143 mEq/L (136-145) 04/17/17 05:14 Potassium 3.5 mEq/L (3.5-5.1) 04/17/17 05:14 Chloride 112 mEq/L (98-107) H 04/17/17 05:14 Carbon Dioxide 25.9 mEq/L (21.0-31.0) 04/17/17 05:14 Anion Gap 8.6 (7.0-16.0) 04/17/17 05:14 BUN 36 mg/dL (7-25) H 04/17/17 05:14 Creatinine 2.0 mg/dL (0.7-1.3) H 04/17/17 05:14 Est GFR ( Amer) 44.5 ml/min (>90) 04/17/17 05:14 Est GFR (Non-Af Amer) 36.8 ml/min 04/17/17 05:14 BUN/Creatinine Ratio 18.0 04/17/17 05:14 Glucose 178 mg/dL (70-105) H 04/17/17 05:14 POC Glucose 184 MG/DL (70 - 105) H 04/16/17 22:28 Whole Bld Lactic Acid 1.53 mmol/L (0.60-1.99) 04/14/17 14:55 Calcium 8.2 mg/dL (8.6-10.3) L 04/17/17 05:14 Phosphorus 3.2 mg/dL (2.5-5.0) 04/17/17 05:14 Magnesium 2.5 mg/dL (1.9-2.7) 04/17/17 05:14 Total Bilirubin 0.9 mg/dL (0.3-1.0) 04/17/17 05:14 AST 36 U/L (13-39) 04/17/17 05:14 ALT 26 U/L (7-52) 04/17/17 05:14 Alkaline Phosphatase 68 U/L (34-104) 04/17/17 05:14 Creatine Kinase 136 U/L (30-223) 04/14/17 14:55 Troponin I 0.01 ng/mL (0.01-0.05) 04/16/17 04:56 B-Natriuretic Peptide 85.5 pg/mL (5.0-100.0) 04/14/17 14:55 Total Protein 5.5 gm/dL (6.0-8.3) L 04/17/17 05:14 Albumin 2.2 gm/dL (4.2-5.5) L 04/17/17 05:14 Globulin 3.3 gm/dL 04/17/17 05:14 Albumin/Globulin Ratio 0.7 (1.0-1.8) L 04/17/17 05:14 Triglycerides 173 mg/dL (<150) H 04/17/17 05:14 Cholesterol 80 mg/dL (<200) 04/14/17 14:55 LDL Cholesterol Direct 38 mg/dL (75-193) L 04/14/17 14:55 HDL Cholesterol 13 mg/dL (23-92) L 04/14/17 14:55 Amylase 31 U/L (29-103) 04/14/17 14:55 Lipase 15 U/L (11-82) 04/14/17 14:55 Urine Source CLEAN C 04/14/17 15:05 Urine Color ORANGE 04/14/17 15:05 Urine Clarity SLIGHT HAZY (CLEAR) 04/14/17 15:05 Urine pH 5.5 04/14/17 15:05 Ur Specific [place] 1.020 (1.005-1.030) 04/14/17 15:05 Urine Protein 100 mg/dL (NEGATIVE) H 04/14/17 15:05 Urine Glucose (UA) NEGATIVE mg/dL (NEGATIVE) 04/14/17 15:05 Urine Ketones 15 mg/dL (NEGATIVE) H 04/14/17 15:05 Urine Blood SMALL (NEGATIVE) H 04/14/17 15:05 Urine Nitrate NEGATIVE (NEGATIVE) 04/14/17 15:05 Urine Bilirubin SMALL (NEGATIVE) H 04/14/17 15:05 Urine Urobilinogen 1.0 E.U./dL (0.2 - 1.0) 04/14/17 15:05 Ur Leukocyte Esterase NEGATIVE (NEGATIVE) 04/14/17 15:05 Urine RBC 2-5 /hpf (0-5) H 04/14/17 15:05 Urine WBC 0-2 /hpf (0-5) 04/14/17 15:05 Ur Epithelial Cells OCCASIONAL /lpf (FEW) 04/14/17 15:05 Amorphous Sediment MANY URATES (NONE SEEN) 04/14/17 15:05 Urine Bacteria 1+ /hpf (NONE SEEN) H 04/14/17 15:05 Vancomycin Trough 16.8 ug/mL (10-20) 04/16/17 13:00 Blood Type O POSITIVE 04/14/17 20:36 Antibody Screen NEGATIVE 04/14/17 20:36 - Physical Exam Vitals and I&O: Vital Signs Temp 98.7 F 04/17/17 22:00 Pulse 114 04/17/17 23:11 Resp 14 04/17/17 22:55 BP 133/89 04/17/17 22:55 Pulse Ox 100 04/17/17 23:11 Intake & Output 04/17/17 04/17/17 04/18/17 06:59 18:59 06:59 Intake Total 550 1999.833 Output Total 1280 2700 Balance -730 -700.167 Weight (lbs) 106.594 kg 106.764 kg Intake: Intake, IV Amount 550 729.833 Fluconazole 200mg/100mL 100 200 mg In 100 ml @ 100 mls/hr IV Q24HR [facility] Rx#: [id number] Piperacillin Sodium/ 200 253.333 Tazobact 4.5 gm In Sodium Chloride 0.9% 100 ml @ 100 mls/hr IV Q6HR [facility] Rx #:[id number] Sodium Chloride 0.9% 500 226.500 ml @ 10 mls/hr IV .Q24H [facility] Rx#:[id number] Vancomycin HCl 1 gm In 250 250 Sodium Chloride 0.9% 250 ml @ 165 mls/hr IV Q18H [facility] Rx#:[id number] Oral 0 TPN/PPN 1170 Other 100 Output: Gastric Drainage 750 Drainage 100 150 Left Lower Abdomen 10 Right Lower Abdomen 90 150 Urine 1150 1800 Stool 10 Other 20 Other: Stool Characteristics Liquid Liquid Liquid Brown Brown Brown Bloody Bloody Active Medications: Current Medications Albuterol/Ipratropium (Duoneb Neb) 3 ml HHN Q4HRT [facility] Stop: 06/15/17 14:59 Last Admin: 04/17/17 23:11 Dose: 3 ml Budesonide (Pulmicort) 0.5 mg HHN BIDRT [facility] Stop: 06/15/17 18:59 Last Admin: 04/17/17 19:14 Dose: 0.5 mg Chlorhexidine Gluconate (Peridex) 15 ml MM 799,1999 [facility] Stop: 06/13/17 19:59 Last Admin: 04/17/17 19:53 Dose: 15 ml Enoxaparin Sodium (Lovenox) 40 mg SUBQ DAILY [facility] Stop: 06/14/17 08:59 Last Admin: 04/17/17 08:36 Dose: 40 mg Hydromorphone HCl (Dilaudid) 1 mg IVP Q4HR PRN PRN Reason: Pain (Severe) Stop: 06/13/17 20:22 Last Admin: 04/17/17 22:09 Dose: 1 mg Piperacillin Sod/Tazobactam (Sod 4.5 gm/ Sodium Chloride) 100 mls @ 100 mls/hr IV Q6HR [facility] Stop: 06/14/17 00:00 Last Infusion: 04/17/17 18:15 Dose: Infused Sodium Chloride (Nacl 0.9%) 500 mls @ 10 mls/hr IV .Q24H [facility] Stop: 06/15/17 15:59 Last Admin: 04/17/17 17:10 Dose: 10 mls/hr Vancomycin HCl 1 gm/ Sodium (Chloride) 250 mls @ 165 mls/hr IV Q18H [facility] Stop: 06/15/17 19:59 Last Infusion: 04/17/17 15:35 Dose: Infused Fluconazole (Diflucan) 200 mg in 100 mls @ 100 mls/hr IV Q24HR [facility] Stop: 06/15/17 22:59 Last Admin: 04/17/17 23:04 Dose: 100 mls/hr Multivitamins/Minerals 10 ml/Amino Acids/Electrolytes/ Fat Emulsion Intravenous / Dextrose 2,160 mls @ 90 mls/hr IV .Q24H [facility] Stop: 06/16/17 15:59 Last Admin: 04/17/17 16:00 Dose: 90 mls/hr Insulin Aspart (Novolog Insulin Sliding Scale) 0 units SUBQ Q6HR [facility] PRN Reason: Protocol Stop: 06/16/17 17:59 Last Admin: 04/17/17 17:12 Dose: Not Given Lactobacillus Rhamnosus (Culturelle) 1 each PO DAILY [facility] Stop: 06/15/17 08:59 Last Admin: 04/17/17 08:36 Dose: 1 each Lorazepam (Ativan) 0.5 mg IVP Q4HR PRN; Protocol PRN Reason: Agitation Stop: 06/15/17 13:47 Last Admin: 04/17/17 19:53 Dose: 0.5 mg Miscellaneous (Probiotic Screen) 1 ea [facility] PRN PRN PRN Reason: PROTOCOL Stop: 06/14/17 09:39 Miscellaneous (Vancomycin Iv Per Pharmacy) 1 ea [facility] PRN [facility] Stop: 06/14/17 12:44 Miscellaneous (Ppn Per Pharmacy) 1 ea PRN PRN PRN Reason: PROTOCOL Stop: 06/14/17 11:44 Miscellaneous (Clinical Monitoring) 1 ea [facility] DAILY PRN PRN Reason: RENAL Stop: 06/15/17 12:48 Miscellaneous (Tpn Per Pharmacy) 1 ea PRN PRN PRN Reason: PROTOCOL Stop: 06/16/17 12:28 Morphine Sulfate (Morphine) 2 mg IVP Q4H PRN PRN Reason: Severe Pain Stop: 06/13/17 20:08 Last Admin: 04/17/17 15:20 Dose: 2 mg Morphine Sulfate (Morphine) 4 mg IVP Q2HR PRN PRN Reason: Pain (Moderate) Stop: 06/15/17 10:53 Ondansetron HCl (Zofran) 4 mg IVP Q6H PRN PRN Reason: Nausea / Vomiting Stop: 06/13/17 20:08 Pantoprazole Sodium (Protonix) 40 mg IVP DAILY [facility] Stop: 06/15/17 08:59 Last Admin: 04/17/17 08:35 Dose: 40 mg General: no acute distress, well developed, well nourished HEENT: atraumatic, normocephalic, PERRLA Neck: supple Cardiovascular: S1S2, regular Lungs: clear to auscultation bilaterally, clear to percussion Abdomen: soft, distended, drain (ROLANDO drain x1 clear serous fluid), no tender Extremities: no cyanosis, no clubbing, no edema Neurological: awake, alert, oriented, other (little ) - Procedures Procedures: Procedures Procedure Code Date BYPASS SIGMOID COLON TO CUTANEOUS, OPEN APPROACH [id number] 04/14/17 PARTIAL REMOVAL OF COLON 51860 04/14/17 RESECTION OF SIGMOID COLON, OPEN APPROACH [id number] 04/14/17 RESPIRATORY VENTILATION, LESS THAN 24 CONSECUTIVE HOURS [id number] 04/14/17 VENT MGMT INPAT INIT DAY 82301 04/14/17 Infectious Disease Assmt/Plan - Problem List Patient Problems: All Active Problems Abscess of sigmoid colon due to diverticulitis (Acute) K57.20 Diverticulitis of sigmoid colon (Acute) K57.32 Obesity (Acute) E66.9 Perforation of sigmoid colon due to diverticulitis (Acute) K57.20 Peritonitis (acute) generalized (Acute) K65.0 - Assessment Assessment: 1. Sepsis. 2. Diverticulitis, sigmoid diverticula to with support complicated by multiple abscesses and peritonitis. 3. Post operatively, on ventilator. 4. Peritonitis. Likely polymicrobial. 5. History of asthma. 6. History of arthritis. 7. Distended abdomen likely post operative ileus. Rule out small bowel obstruction. 8. SEKOU. Plan: Continue Zosyn, diflucan and vancomycin. Add as patient had fecal peritonitis. Sepsis workup was performed and follow the sepsis workup. Follow-up CBC and CMP in the morning. Otherwise, for fever will use ice packs and if needed Cooling blanket.
[2017-04-18] MEDS: HYDROmorphone 1 mg/mL 1mL Syr IVP PRN ×4 (02:07→21:40)
[2017-04-18] MEDS: Albuterol/Ipratropium Neb 3 ML AERS HHN SCH ×6 (03:14→22:53)
[2017-04-18] MEDS: INSULIN ASPART SLIDING SCALE 100 UNITS/ML UNIT SUBQ SCH ×4 (05:39→17:57)
[2017-04-18] MEDS: Budesonide 0.5 Mg/2 mL Ud HHN SCH ×2 (07:19→19:13)
[2017-04-18 07:29] LABS: HEMOGLOBIN 8.9 gm/dL (13.2-17.3); MEAN CELL VOLUME 81.9 fl (80-99); MEAN CORPUSCULAR HEMOGLOBIN 26.9 pg (26.0-30.0); MEAN CORPUSCULAR HGB CONC 32.8 pg (28.0-36.0); MEAN PLATELET VOLUME 7.8 fl; PLATELET COUNT 499 Th/cmm (150-400); RED BLOOD COUNT 3.33 Mil/cmm (4.30-5.70); RED CELL DISTRIBUTION WIDTH 15.6 % (11.5-20.0)
[2017-04-18 07:35] LABS: WHITE BLOOD COUNT 12.1 Th/cmm (4.8-10.8)
[2017-04-18 07:36] LABS: HEMATOCRIT 27.3 % (39.0-49.0)
[2017-04-18 07:55] LABS: ALB/GLOB RATIO 0.7 (1.0-1.8); ALKALINE PHOSPHATASE 57 U/L (34-104); ANION GAP 7.4 (7.0-16.0); BILIRUBIN,TOTAL 1.1 mg/dL (0.3-1.0); BUN - UREA NITROGEN 33 mg/dL (7-25); CALCIUM SERUM 8.1 mg/dL (8.6-10.3); CARBON DIOXIDE 27.3 mEq/L (21.0-31.0); CHLORIDE 115 mEq/L (98-107); CREATININE - SERUM 1.5 mg/dL (0.7-1.3); GLUCOSE 165 mg/dL (70-105); MAGNESIUM 1.9 mg/dL (1.9-2.7); PHOSPHOROUS 2.1 mg/dL (2.5-5.0); POTASSIUM SERUM 3.7 mEq/L (3.5-5.1); SGOT 36 U/L (13-39); SGPT/ALT 23 U/L (7-52); SODIUM SERUM 146 mEq/L (136-145)
[2017-04-18 07:56] LABS: VANCOMYCIN TROUGH 10.8 ug/mL (10-20)
[2017-04-18 08:17] LABS: NEUTROPHILS 88 % (40-80); PLATELET ESTIMATE INCREASED PLATELETS (NORMAL); TOTAL CELLS COUNTED 100
[2017-04-18] MEDS ORDERED: [UNRECOGNIZED DRUG - OTHER] IV SCH (08:22)
[2017-04-18] MEDS ORDERED: DEXT 10% IV SCH (08:22)
[2017-04-18] MEDS ORDERED: INTRALIPIDS IV SCH (08:22)
[2017-04-18] MEDS ORDERED: AMINO ACIDS IV SCH (08:22)
[2017-04-18] MEDS ORDERED: MULTIVITAMIN IV SCH (08:22)
[2017-04-18] MEDS: Chlorhexidine Gluconate 0.12% 15mL Mouthwash MM SCH ×2 (08:35→20:06)
[2017-04-18 09:06] LABS: HCO3 27.9 mEq/L (20.0-26.0); pH 7.46 (7.35-7.45)
[2017-04-18 09:07] LABS: ABG SOURCE Arterial; ALLEN TEST YES; BE(B) 3.7 mEq/L (-3.0-3.0); CRITICAL VALUES REPORTED BY SH; FIO2 30; MECH RATE 4; MECH VT 550; PS 18
[2017-04-18] MEDS: Lactobacillus Rhamnosus 10 Billion CFU Capsule PO SCH (09:30)
[2017-04-18] MEDS: Enoxaparin 40 mg/0.4 mL 0.4mL Syr SUBQ SCH (10:00)
[2017-04-18] MEDS: Morphine Sulfate 2 mg/mL 1mL Syr IVP PRN (10:05)
--- NOTE | 2017-04-18 10:10 | Diagnostic Imaging Report ---
Portable chest x-ray History: Shortness of breath Allowing for portable technique the heart size is normal. No focal pulmonary parenchymal processes. No hilar or mediastinal abnormalities. An endotracheal tube tip is approximate 4.0 cm above the ondina. Impression: 1. No focal pulmonary processes
--- NOTE | 2017-04-18 13:48 | General Progress Note ---
Subjective - Review of Systems Subjective: Patient is currently intubated and sedated. More alert and awake. RN reports bleeding from the NG tube. Patient is currently on Lovenox. Patient is quite a bit agitated and requires when necessary Ativan. Patient's family at bedside, discussed with them about their concern and treatment plan. Objective - Results Result Diagrams: 04/18/17 06:55 04/18/17 06:55 Recent Labs: Laboratory Last Values WBC 12.1 Th/cmm (4.8-10.8) H D 04/18/17 06:55 RBC 3.33 Mil/cmm (4.30-5.70) L 04/18/17 06:55 Hgb 8.9 gm/dL (13.2-17.3) L 04/18/17 06:55 Hct 27.3 % (39.0-49.0) L D 04/18/17 06:55 MCV 81.9 fl (80-99) 04/18/17 06:55 MCH 26.9 pg (26.0-30.0) 04/18/17 06:55 MCHC Differential 32.8 pg (28.0-36.0) 04/18/17 06:55 RDW 15.6 % (11.5-20.0) 04/18/17 06:55 Plt Count 499 Th/cmm (150-400) H 04/18/17 06:55 MPV 7.8 fl 04/18/17 06:55 Band Neutrophils % 1 % (0-10) 04/16/17 04:56 Lymphocytes % [employer] W[employer]E MANAGER 04/15/17 04:37 Monocytes % [employer] WASTE MANAGER 04/15/17 04:37 Eosinophils % [employer] MANAGER 04/15/17 04:37 Neutrophils (Manual) 88 % (40-80) H 04/18/17 06:55 Lymphocytes 8 % (20-50) L 04/18/17 06:55 Monocytes 4 % (2-10) 04/18/17 06:55 Platelet Estimate INCREASED PLATELETS (NORMAL) 04/18/17 06:55 PT 12.9 SECONDS (9.5-11.5) H 04/14/17 14:55 INR 1.23 (0.5-1.4) 04/14/17 14:55 PTT (Actin FS) 29.8 SECONDS (26.0-38.0) 04/14/17 14:55 Specimen Source Arterial 04/18/17 09:00 Sample Site Right Radial 04/18/17 09:00 pH 7.46 (7.35-7.45) H 04/18/17 09:00 pCO2 39.0 mmHg (35.0-45.0) 04/18/17 09:00 pO2 112.0 mmHg (80.0-100.0) H 04/18/17 09:00 HCO3 27.9 mEq/L (20.0-26.0) H 04/18/17 09:00 Base Excess 3.7 mEq/L (-3.0-3.0) H 04/18/17 09:00 O2 Saturation 99.0 % (92.0-100.0) 04/18/17 09:00 Chau Test YES 04/18/17 09:00 Vent Rate 4 04/18/17 09:00 Inspired O2 30 04/18/17 09:00 Tidal Volume 550 04/18/17 09:00 PEEP 4 04/18/17 09:00 Pressure (ins/psv/peep) 18 04/18/17 09:00 Critical Value SH 04/18/17 09:00 Sodium 146 mEq/L (136-145) H 04/18/17 06:55 Potassium 3.7 mEq/L (3.5-5.1) 04/18/17 06:55 Chloride 115 mEq/L (98-107) H 04/18/17 06:55 Carbon Dioxide 27.3 mEq/L (21.0-31.0) 04/18/17 06:55 Anion Gap 7.4 (7.0-16.0) 04/18/17 06:55 BUN 33 mg/dL (7-25) H 04/18/17 06:55 Creatinine 1.5 mg/dL (0.7-1.3) H 04/18/17 06:55 Est GFR ( Amer) > 60.0 ml/min (>90) 04/18/17 06:55 Est GFR (Non-Af Amer) 51.3 ml/min 04/18/17 06:55 BUN/Creatinine Ratio 22.0 04/18/17 06:55 Glucose 165 mg/dL (70-105) H 04/18/17 06:55 POC Glucose 140 MG/DL (70 - 105) H 04/18/17 12:29 Whole Bld Lactic Acid 1.53 mmol/L (0.60-1.99) 04/14/17 14:55 Calcium 8.1 mg/dL (8.6-10.3) L 04/18/17 06:55 Phosphorus 2.1 mg/dL (2.5-5.0) L 04/18/17 06:55 Magnesium 1.9 mg/dL (1.9-2.7) 04/18/17 06:55 Total Bilirubin 1.1 mg/dL (0.3-1.0) H 04/18/17 06:55 AST 36 U/L (13-39) 04/18/17 06:55 ALT 23 U/L (7-52) 04/18/17 06:55 Alkaline Phosphatase 57 U/L (34-104) 04/18/17 06:55 Creatine Kinase 136 U/L (30-223) 04/14/17 14:55 Troponin I 0.01 ng/mL (0.01-0.05) 04/16/17 04:56 B-Natriuretic Peptide 85.5 pg/mL (5.0-100.0) 04/14/17 14:55 Total Protein 5.2 gm/dL (6.0-8.3) L 04/18/17 06:55 Albumin 2.1 gm/dL (4.2-5.5) L 04/18/17 06:55 Globulin 3.1 gm/dL 04/18/17 06:55 Albumin/Globulin Ratio 0.7 (1.0-1.8) L 04/18/17 06:55 Prealbumin 5 mg/dL (10-36) L 04/17/17 05:14 Triglycerides 173 mg/dL (<150) H 04/17/17 05:14 Cholesterol 80 mg/dL (<200) 04/14/17 14:55 LDL Cholesterol Direct 38 mg/dL (75-193) L 04/14/17 14:55 HDL Cholesterol 13 mg/dL (23-92) L 04/14/17 14:55 Amylase 31 U/L (29-103) 04/14/17 14:55 Lipase 15 U/L (11-82) 04/14/17 14:55 Urine Source CLEAN C 04/14/17 15:05 Urine Color ORANGE 04/14/17 15:05 Urine Clarity SLIGHT HAZY (CLEAR) 04/14/17 15:05 Urine pH 5.5 04/14/17 15:05 Ur Specific [place] 1.020 (1.005-1.030) 04/14/17 15:05 Urine Protein 100 mg/dL (NEGATIVE) H 04/14/17 15:05 Urine Glucose (UA) NEGATIVE mg/dL (NEGATIVE) 04/14/17 15:05 Urine Ketones 15 mg/dL (NEGATIVE) H 04/14/17 15:05 Urine Blood SMALL (NEGATIVE) H 04/14/17 15:05 Urine Nitrate NEGATIVE (NEGATIVE) 04/14/17 15:05 Urine Bilirubin SMALL (NEGATIVE) H 04/14/17 15:05 Urine Urobilinogen 1.0 E.U./dL (0.2 - 1.0) 04/14/17 15:05 Ur Leukocyte Esterase NEGATIVE (NEGATIVE) 04/14/17 15:05 Urine RBC 2-5 /hpf (0-5) H 04/14/17 15:05 Urine WBC 0-2 /hpf (0-5) 04/14/17 15:05 Ur Epithelial Cells OCCASIONAL /lpf (FEW) 04/14/17 15:05 Amorphous Sediment MANY URATES (NONE SEEN) 04/14/17 15:05 Urine Bacteria 1+ /hpf (NONE SEEN) H 04/14/17 15:05 Vancomycin Trough 10.8 ug/mL (10-20) 04/18/17 06:55 Blood Type O POSITIVE 04/14/17 20:36 Antibody Screen NEGATIVE 04/14/17 20:36 - Physical Exam Vitals and I&O: Vital Signs Temp 99.3 F 04/18/17 11:00 Pulse 98 04/18/17 13:21 Resp 18 04/18/17 11:00 BP 147/62 04/18/17 11:00 Pulse Ox 100 04/18/17 13:21 Intake & Output 04/17/17 04/18/17 04/18/17 18:59 06:59 18:59 Intake Total 1999.833 200 90 Output Total 2700 1120 260 Balance -700.167 -920 -170 Weight (lbs) 106.764 kg 117.934 kg 117.934 kg Intake: Intake, IV Amount 729.833 200 Fluconazole 200mg/100mL 100 200 mg In 100 ml @ 100 mls/hr IV Q24HR [facility] Rx#: [id number] Piperacillin Sodium/ 253.333 100 Tazobact 4.5 gm In Sodium Chloride 0.9% 100 ml @ 100 mls/hr IV Q6HR [facility] Rx #:[id number] Sodium Chloride 0.9% 500 226.500 ml @ 10 mls/hr IV .Q24H [facility] Rx#:[id number] Vancomycin HCl 1 gm In 250 Sodium Chloride 0.9% 250 ml @ 165 mls/hr IV Q18H [facility] Rx#:[id number] Oral 0 TPN/PPN 1170 90 Other 100 Output: Gastric Drainage 750 200 Drainage 150 80 60 Left Lower Abdomen 40 Right Lower Abdomen 150 40 60 Urine 1800 1000 Stool 40 Other: Stool Characteristics Liquid Liquid Liquid Brown Brown Brown Bloody Bloody Bloody Active Medications: Current Medications Albuterol/Ipratropium (Duoneb Neb) 3 ml HHN Q4HRT [facility] Stop: 06/15/17 14:59 Last Admin: 04/18/17 11:12 Dose: 3 ml Budesonide (Pulmicort) 0.5 mg HHN BIDRT [facility] Stop: 06/15/17 18:59 Last Admin: 04/18/17 07:19 Dose: 0.5 mg Chlorhexidine Gluconate (Peridex) 15 ml MM 0800,1999 [facility] Stop: 06/13/17 19:59 Last Admin: 04/18/17 08:35 Dose: 15 ml Hydromorphone HCl (Dilaudid) 1 mg IVP Q4HR PRN PRN Reason: Pain (Severe) Stop: 06/13/17 20:22 Last Admin: 04/18/17 07:46 Dose: 1 mg Piperacillin Sod/Tazobactam (Sod 4.5 gm/ Sodium Chloride) 100 mls @ 100 mls/hr IV Q6HR [facility] Stop: 06/14/17 00:00 Last Admin: 04/18/17 12:00 Dose: 100 mls/hr Sodium Chloride (Nacl 0.9%) 500 mls @ 10 mls/hr IV .Q24H [facility] Stop: 06/15/17 15:59 Last Admin: 04/17/17 17:10 Dose: 10 mls/hr Fluconazole (Diflucan) 200 mg in 100 mls @ 100 mls/hr IV Q24HR [facility] Stop: 06/15/17 22:59 Last Infusion: 04/18/17 00:04 Dose: Infused Vancomycin HCl 1 gm/ Sodium (Chloride) 250 mls @ 165 mls/hr IV Q24HR@0800,2000 [facility] Stop: 06/17/17 19:59 Multivitamins/Minerals 10 ml/Amino Acids/ Fat Emulsion Intravenous/ Dextrose 2, 160 mls @ 90 mls/hr IV .Q24H [facility] Stop: 04/18/17 15:59 Last Admin: 04/18/17 08:40 Dose: 90 mls/hr Multivitamins/Minerals 10 ml/Amino Acids/ Fat Emulsion Intravenous 2,160 mls @ 90 mls/hr IV .Q24H [facility] Stop: 06/17/17 15:59 Insulin Aspart (Novolog Insulin Sliding Scale) 0 units SUBQ Q6HR [facility] PRN Reason: Protocol Stop: 06/16/17 17:59 Last Admin: 04/18/17 12:30 Dose: Not Given Lactobacillus Rhamnosus (Culturelle) 1 each PO DAILY [facility] Stop: 06/15/17 08:59 Last Admin: 04/18/17 09:30 Dose: 1 each Lorazepam (Ativan) 1 mg IVP Q4HR PRN; Protocol PRN Reason: AGITATION Stop: 06/17/17 13:27 Miscellaneous (Probiotic Screen) 1 ea MC PRN PRN PRN Reason: PROTOCOL Stop: 06/14/17 09:39 Miscellaneous (Vancomycin Iv Per Pharmacy) 1 ea MC PRN [facility] Stop: 06/14/17 12:44 Miscellaneous (Clinical Monitoring) 1 ea MC DAILY PRN PRN Reason: RENAL Stop: 06/15/17 12:48 Miscellaneous (Tpn Per Pharmacy) 1 ea PRN PRN PRN Reason: PROTOCOL Stop: 06/16/17 12:28 Morphine Sulfate (Morphine) 2 mg IVP Q4H PRN PRN Reason: Severe Pain Stop: 06/13/17 20:08 Last Admin: 04/18/17 10:05 Dose: 2 mg Morphine Sulfate (Morphine) 4 mg IVP Q2HR PRN PRN Reason: Pain (Moderate) Stop: 06/15/17 10:53 Ondansetron HCl (Zofran) 4 mg IVP Q6H PRN PRN Reason: Nausea / Vomiting Stop: 06/13/17 20:08 Pantoprazole Sodium (Protonix) 40 mg IVP DAILY [facility] Stop: 06/15/17 08:59 Last Admin: 04/18/17 09:30 Dose: 40 mg General: Alert, Other (intubated and sedated) HEENT: Atraumatic, PERRLA, EOMI, Mucous membr. moist/pink, Other (oral endotracheal tube.) Neck: Supple Cardiovascular: Regular rate, Normal S1, Normal S2 Lungs: Other (diffuse rhonchi.) Abdomen: Soft, Distended Extremities: Other (peripheral pulses are +2) Neurological: Other (unable to assess.) Psych/Mental Status: Other (sedated and intubated.) - Procedures Procedures: Procedures Procedure Code Date BYPASS SIGMOID COLON TO CUTANEOUS, OPEN APPROACH [id number] 04/14/17 PARTIAL REMOVAL OF COLON 25805 04/14/17 RESECTION OF SIGMOID COLON, OPEN APPROACH [id number] 04/14/17 RESPIRATORY VENTILATION, LESS THAN 24 CONSECUTIVE HOURS [id number] 04/14/17 VENT MGMT INPAT INIT DAY 86627 04/14/17 Assessment/Plan - Problem List Patient Problems: All Active Problems Abscess of sigmoid colon due to diverticulitis (Acute) K57.20 Diverticulitis of sigmoid colon (Acute) K57.32 Obesity (Acute) E66.9 Perforation of sigmoid colon due to diverticulitis (Acute) K57.20 Peritonitis (acute) generalized (Acute) K65.0 - Assessment Assessment: Current Active Problems Problem Status Onset Abscess of sigmoid colon due to diverticulitis Acute Diverticulitis of sigmoid colon Acute Obesity Acute Perforation of sigmoid colon due to diverticulitis Acute Peritonitis (acute) generalized Acute Perforated sigmoid diverticulitis status post exploratory laparotomy and sigmoid colectomy intra-abdominal abscess drainage lysis of pleural Ada procedure and colostomy. Postoperative respiratory failure requiring endotracheal intubation and mechanical ventilation Obesity Asthma Increasing agitation at times. Bleeding from NG tube side most likely is due to Lovenox. ICU status Leukocytosis secondary to infection Postop anemia. - Plan Plan: Postoperative care as per Dr. carty. ID consult and follow-up. IV antibiotic. Vent support wean off As tolerated. TPN. DC Lovenox for now. Adjust doses of Ativan for agitation. Hopefully we will be able to wean off for his vent and extubated soon. Nebulizer treatment. Pulmonary follow-up. GI and DVT prophylaxis. Follow-up lab. Follow up on [employer] consultant recommendations. Care plan reviewed and discussed with patient's RN. All questions answered. Symptoms management. Medication management.
[2017-04-18] MEDS: INTRALIPIDS IV SCH (16:00)
[2017-04-18] MEDS: DEXT 10% IV SCH (16:00)
[2017-04-18] MEDS: AMINO ACIDS IV SCH (16:00)
[2017-04-18] MEDS: MULTIVITAMIN IV SCH (16:00)
[2017-04-18] MEDS: Sodium Chloride 0.9% 500 ML IV SCH (16:23)
--- NOTE | 2017-04-18 18:56 | General Progress Note ---
Subjective - Review of Systems Service Date: 04/18/17 Subjective: extubated, obtunded Objective - Results Result Diagrams: 04/18/17 06:55 04/18/17 06:55 Recent Labs: Laboratory Last Values WBC 12.1 Th/cmm (4.8-10.8) H D 04/18/17 06:55 RBC 3.33 Mil/cmm (4.30-5.70) L 04/18/17 06:55 Hgb 8.9 gm/dL (13.2-17.3) L 04/18/17 06:55 Hct 27.3 % (39.0-49.0) L D 04/18/17 06:55 MCV 81.9 fl (80-99) 04/18/17 06:55 MCH 26.9 pg (26.0-30.0) 04/18/17 06:55 MCHC Differential 32.8 pg (28.0-36.0) 04/18/17 06:55 RDW 15.6 % (11.5-20.0) 04/18/17 06:55 Plt Count 499 Th/cmm (150-400) H 04/18/17 06:55 MPV 7.8 fl 04/18/17 06:55 Band Neutrophils % 1 % (0-10) 04/16/17 04:56 Lymphocytes % BRASS BUFFER 04/15/17 04:37 Monocytes % BRASS BUFFER 04/15/17 04:37 Eosinophils % BRASS BUFFER 04/15/17 04:37 Neutrophils (Manual) 88 % (40-80) H 04/18/17 06:55 Lymphocytes 8 % (20-50) L 04/18/17 06:55 Monocytes 4 % (2-10) 04/18/17 06:55 Platelet Estimate INCREASED PLATELETS (NORMAL) 04/18/17 06:55 PT 12.9 SECONDS (9.5-11.5) H 04/14/17 14:55 INR 1.23 (0.5-1.4) 04/14/17 14:55 PTT (Actin FS) 29.8 SECONDS (26.0-38.0) 04/14/17 14:55 Specimen Source Arterial 04/18/17 09:00 Sample Site Right Radial 04/18/17 09:00 pH 7.46 (7.35-7.45) H 04/18/17 09:00 pCO2 39.0 mmHg (35.0-45.0) 04/18/17 09:00 pO2 112.0 mmHg (80.0-100.0) H 04/18/17 09:00 HCO3 27.9 mEq/L (20.0-26.0) H 04/18/17 09:00 Base Excess 3.7 mEq/L (-3.0-3.0) H 04/18/17 09:00 O2 Saturation 99.0 % (92.0-100.0) 04/18/17 09:00 Chau Test YES 04/18/17 09:00 Vent Rate 4 04/18/17 09:00 Inspired O2 30 04/18/17 09:00 Tidal Volume 550 04/18/17 09:00 PEEP 4 04/18/17 09:00 Pressure (ins/psv/peep) 18 04/18/17 09:00 Critical Value SH 04/18/17 09:00 Sodium 146 mEq/L (136-145) H 04/18/17 06:55 Potassium 3.7 mEq/L (3.5-5.1) 04/18/17 06:55 Chloride 115 mEq/L (98-107) H 04/18/17 06:55 Carbon Dioxide 27.3 mEq/L (21.0-31.0) 04/18/17 06:55 Anion Gap 7.4 (7.0-16.0) 04/18/17 06:55 BUN 33 mg/dL (7-25) H 04/18/17 06:55 Creatinine 1.5 mg/dL (0.7-1.3) H 04/18/17 06:55 Est GFR ( Amer) > 60.0 ml/min (>90) 04/18/17 06:55 Est GFR (Non-Af Amer) 51.3 ml/min 04/18/17 06:55 BUN/Creatinine Ratio 22.0 04/18/17 06:55 Glucose 165 mg/dL (70-105) H 04/18/17 06:55 POC Glucose 149 MG/DL (70 - 105) H 04/18/17 17:56 Whole Bld Lactic Acid 1.53 mmol/L (0.60-1.99) 04/14/17 14:55 Calcium 8.1 mg/dL (8.6-10.3) L 04/18/17 06:55 Phosphorus 2.1 mg/dL (2.5-5.0) L 04/18/17 06:55 Magnesium 1.9 mg/dL (1.9-2.7) 04/18/17 06:55 Total Bilirubin 1.1 mg/dL (0.3-1.0) H 04/18/17 06:55 AST 36 U/L (13-39) 04/18/17 06:55 ALT 23 U/L (7-52) 04/18/17 06:55 Alkaline Phosphatase 57 U/L (34-104) 04/18/17 06:55 Creatine Kinase 136 U/L (30-223) 04/14/17 14:55 Troponin I 0.01 ng/mL (0.01-0.05) 04/16/17 04:56 B-Natriuretic Peptide 85.5 pg/mL (5.0-100.0) 04/14/17 14:55 Total Protein 5.2 gm/dL (6.0-8.3) L 04/18/17 06:55 Albumin 2.1 gm/dL (4.2-5.5) L 04/18/17 06:55 Globulin 3.1 gm/dL 04/18/17 06:55 Albumin/Globulin Ratio 0.7 (1.0-1.8) L 04/18/17 06:55 Prealbumin 5 mg/dL (10-36) L 04/17/17 05:14 Triglycerides 173 mg/dL (<150) H 04/17/17 05:14 Cholesterol 80 mg/dL (<200) 04/14/17 14:55 LDL Cholesterol Direct 38 mg/dL (75-193) L 04/14/17 14:55 HDL Cholesterol 13 mg/dL (23-92) L 04/14/17 14:55 Amylase 31 U/L (29-103) 04/14/17 14:55 Lipase 15 U/L (11-82) 04/14/17 14:55 Urine Source CLEAN C 04/14/17 15:05 Urine Color ORANGE 04/14/17 15:05 Urine Clarity SLIGHT HAZY (CLEAR) 04/14/17 15:05 Urine pH 5.5 04/14/17 15:05 Ur Specific [place] 1.020 (1.005-1.030) 04/14/17 15:05 Urine Protein 100 mg/dL (NEGATIVE) H 04/14/17 15:05 Urine Glucose (UA) NEGATIVE mg/dL (NEGATIVE) 04/14/17 15:05 Urine Ketones 15 mg/dL (NEGATIVE) H 04/14/17 15:05 Urine Blood SMALL (NEGATIVE) H 04/14/17 15:05 Urine Nitrate NEGATIVE (NEGATIVE) 04/14/17 15:05 Urine Bilirubin SMALL (NEGATIVE) H 04/14/17 15:05 Urine Urobilinogen 1.0 E.U./dL (0.2 - 1.0) 04/14/17 15:05 Ur Leukocyte Esterase NEGATIVE (NEGATIVE) 04/14/17 15:05 Urine RBC 2-5 /hpf (0-5) H 04/14/17 15:05 Urine WBC 0-2 /hpf (0-5) 04/14/17 15:05 Ur Epithelial Cells OCCASIONAL /lpf (FEW) 04/14/17 15:05 Amorphous Sediment MANY URATES (NONE SEEN) 04/14/17 15:05 Urine Bacteria 1+ /hpf (NONE SEEN) H 04/14/17 15:05 Vancomycin Trough 10.8 ug/mL (10-20) 04/18/17 06:55 Blood Type O POSITIVE 04/14/17 20:36 Antibody Screen NEGATIVE 04/14/17 20:36 - Physical Exam Vitals and I&O: Vital Signs Temp 99 F 04/18/17 18:00 Pulse 107 04/18/17 18:00 Resp 19 04/18/17 18:00 BP 148/82 04/18/17 18:00 Pulse Ox 100 04/18/17 18:00 Intake & Output 04/17/17 04/18/17 04/18/17 18:59 06:59 18:59 Intake Total 1999.923 906 0981.167 Output Total 2700 1120 2340 Balance -700.167 -920 -777.833 Weight (lbs) 106.764 kg 117.934 kg 117.934 kg Intake: Intake, IV Amount 729.833 200 332.167 Fluconazole 200mg/100mL 100 200 mg In 100 ml @ 100 mls/hr IV Q24HR [facility] Rx#: [id number] Piperacillin Sodium/ 253.333 100 100 Tazobact 4.5 gm In Sodium Chloride 0.9% 100 ml @ 100 mls/hr IV Q6HR [facility] Rx #:[id number] Sodium Chloride 0.9% 500 226.500 232.167 ml @ 10 mls/hr IV .Q24H [facility] Rx#:[id number] Vancomycin HCl 1 gm In 250 Sodium Chloride 0.9% 250 ml @ 165 mls/hr IV Q18H [facility] Rx#:[id number] Oral 0 TPN/PPN 1170 1170 Other 100 60 Output: Gastric Drainage 750 600 Drainage 150 80 140 Left Lower Abdomen 40 Right Lower Abdomen 150 40 140 Urine 1800 1000 1600 Stool 40 Other: Stool Characteristics Liquid Liquid Liquid Brown Brown Brown Bloody Bloody Bloody Active Medications: Current Medications Albuterol/Ipratropium (Duoneb Neb) 3 ml HHN Q4HRT [facility] Stop: 06/15/17 14:59 Last Admin: 04/18/17 15:31 Dose: 3 ml Budesonide (Pulmicort) 0.5 mg HHN BIDRT [facility] Stop: 06/15/17 18:59 Last Admin: 04/18/17 07:19 Dose: 0.5 mg Chlorhexidine Gluconate (Peridex) 15 ml MM 799,1999 [facility] Stop: 06/13/17 19:59 Last Admin: 04/18/17 08:35 Dose: 15 ml Hydromorphone HCl (Dilaudid) 1 mg IVP Q4HR PRN PRN Reason: Pain (Severe) Stop: 06/13/17 20:22 Last Admin: 04/18/17 14:10 Dose: 1 mg Piperacillin Sod/Tazobactam (Sod 4.5 gm/ Sodium Chloride) 100 mls @ 100 mls/hr IV Q6HR [facility] Stop: 06/14/17 00:00 Last Admin: 04/18/17 17:55 Dose: 100 mls/hr Sodium Chloride (Nacl 0.9%) 500 mls @ 10 mls/hr IV .Q24H [facility] Stop: 06/15/17 15:59 Last Admin: 04/18/17 16:23 Dose: 10 mls/hr Fluconazole (Diflucan) 200 mg in 100 mls @ 100 mls/hr IV Q24HR [facility] Stop: 06/15/17 22:59 Last Infusion: 04/18/17 00:04 Dose: Infused Vancomycin HCl 1 gm/ Sodium (Chloride) 250 mls @ 165 mls/hr IV Q24HR@0800,2000 [facility] Stop: 06/17/17 19:59 Multivitamins/Minerals 10 ml/Amino Acids/ Fat Emulsion Intravenous 2,160 mls @ 90 mls/hr IV .Q24H [facility] Stop: 06/17/17 15:59 Last Admin: 04/18/17 16:00 Dose: 90 mls/hr Insulin Aspart (Novolog Insulin Sliding Scale) 0 units SUBQ Q6HR [facility] PRN Reason: Protocol Stop: 06/16/17 17:59 Last Admin: 04/18/17 17:57 Dose: Not Given Lactobacillus Rhamnosus (Culturelle) 1 each PO DAILY [facility] Stop: 06/15/17 08:59 Last Admin: 04/18/17 09:30 Dose: 1 each Lorazepam (Ativan) 1 mg IVP Q4HR PRN; Protocol PRN Reason: AGITATION Stop: 06/17/17 13:27 Miscellaneous (Probiotic Screen) 1 ea PRN PRN PRN Reason: PROTOCOL Stop: 06/14/17 09:39 Miscellaneous (Vancomycin Iv Per Pharmacy) 1 ea MC PRN [facility] Stop: 06/14/17 12:44 Miscellaneous (Clinical Monitoring) 1 ea DAILY PRN PRN Reason: RENAL Stop: 06/15/17 12:48 Miscellaneous (Tpn Per Pharmacy) 1 ea PRN PRN PRN Reason: PROTOCOL Stop: 06/16/17 12:28 Morphine Sulfate (Morphine) 4 mg IVP Q2HR PRN PRN Reason: Pain (Moderate) Stop: 06/15/17 10:53 Ondansetron HCl (Zofran) 4 mg IVP Q6H PRN PRN Reason: Nausea / Vomiting Stop: 06/13/17 20:08 Pantoprazole Sodium (Protonix) 40 mg IVP DAILY [facility] Stop: 06/15/17 08:59 Last Admin: 04/18/17 09:30 Dose: 40 mg General: Alert, Other (intubated and sedated) HEENT: Atraumatic, PERRLA, EOMI, Mucous membr. moist/pink, Other (oral endotracheal tube.) Neck: Supple Cardiovascular: Regular rate, Normal S1, Normal S2 Lungs: Other (diffuse rhonchi.) Abdomen: Soft, Distended Extremities: Other (peripheral pulses are +2) Neurological: Other (unable to assess.) Psych/Mental Status: Other (sedated and intubated.) - Procedures Procedures: Procedures Procedure Code Date BYPASS SIGMOID COLON TO CUTANEOUS, OPEN APPROACH [id number] 04/14/17 PARTIAL REMOVAL OF COLON 14379 04/14/17 RESECTION OF SIGMOID COLON, OPEN APPROACH [id number] 04/14/17 RESPIRATORY VENTILATION, LESS THAN 24 CONSECUTIVE HOURS [id number] 04/14/17 VENT MGMT INPAT INIT DAY 34278 04/14/17 Assessment/Plan - Problem List Patient Problems: All Active Problems Abscess of sigmoid colon due to diverticulitis (Acute) K57.20 Diverticulitis of sigmoid colon (Acute) K57.32 Obesity (Acute) E66.9 Perforation of sigmoid colon due to diverticulitis (Acute) K57.20 Peritonitis (acute) generalized (Acute) K65.0 - Assessment Assessment: POD#4 s/p ex lap, sigmoid colectomy, drainage of peritonitis, lysis adhesions, ROLANDO drain placement. more awake and following commands. pulmonary consulted and f/u appreciated, extubated earlier today, resp stable continue IVfluids leukocytosis/ tachycardia; continue IV abx TPNutritional support ROLANDO drain expected output adequate urine output; elevated BUN/Creat, renal f/u dvt prophylaxis Lovenox SQ supportive care.... s/w family guarded prognosis. colostomy intact, mildly dusky mucosa. overall more stable, but still guarded
--- NOTE | 2017-04-18 21:18 | Infectious Disease Prog Note ---
Infectious Disease Subjective - Review of Systems Service Date: 04/18/17 Subjective: Extubated and on VM. drowsy but alert and awake. Unable to pass gas. Infectious Disease Objective - Results Result Diagrams: 04/18/17 06:55 04/18/17 06:55 Recent Labs: Laboratory Last Values WBC 12.1 Th/cmm (4.8-10.8) H D 04/18/17 06:55 RBC 3.33 Mil/cmm (4.30-5.70) L 04/18/17 06:55 Hgb 8.9 gm/dL (13.2-17.3) L 04/18/17 06:55 Hct 27.3 % (39.0-49.0) L D 04/18/17 06:55 MCV 81.9 fl (80-99) 04/18/17 06:55 MCH 26.9 pg (26.0-30.0) 04/18/17 06:55 MCHC Differential 32.8 pg (28.0-36.0) 04/18/17 06:55 RDW 15.6 % (11.5-20.0) 04/18/17 06:55 Plt Count 499 Th/cmm (150-400) H 04/18/17 06:55 MPV 7.8 fl 04/18/17 06:55 Band Neutrophils % 1 % (0-10) 04/16/17 04:56 Lymphocytes % BLIND HANGER 04/15/17 04:37 Monocytes % BLIND HANGER 04/15/17 04:37 Eosinophils % BLIND HANGER 04/15/17 04:37 Neutrophils (Manual) 88 % (40-80) H 04/18/17 06:55 Lymphocytes 8 % (20-50) L 04/18/17 06:55 Monocytes 4 % (2-10) 04/18/17 06:55 Platelet Estimate INCREASED PLATELETS (NORMAL) 04/18/17 06:55 PT 12.9 SECONDS (9.5-11.5) H 04/14/17 14:55 INR 1.23 (0.5-1.4) 04/14/17 14:55 PTT (Actin FS) 29.8 SECONDS (26.0-38.0) 04/14/17 14:55 Specimen Source Arterial 04/18/17 09:00 Sample Site Right Radial 04/18/17 09:00 pH 7.46 (7.35-7.45) H 04/18/17 09:00 pCO2 39.0 mmHg (35.0-45.0) 04/18/17 09:00 pO2 112.0 mmHg (80.0-100.0) H 04/18/17 09:00 HCO3 27.9 mEq/L (20.0-26.0) H 04/18/17 09:00 Base Excess 3.7 mEq/L (-3.0-3.0) H 04/18/17 09:00 O2 Saturation 99.0 % (92.0-100.0) 04/18/17 09:00 Chau Test YES 04/18/17 09:00 Vent Rate 4 04/18/17 09:00 Inspired O2 30 04/18/17 09:00 Tidal Volume 550 04/18/17 09:00 PEEP 4 04/18/17 09:00 Pressure (ins/psv/peep) 18 04/18/17 09:00 Critical Value SH 04/18/17 09:00 Sodium 146 mEq/L (136-145) H 04/18/17 06:55 Potassium 3.7 mEq/L (3.5-5.1) 04/18/17 06:55 Chloride 115 mEq/L (98-107) H 04/18/17 06:55 Carbon Dioxide 27.3 mEq/L (21.0-31.0) 04/18/17 06:55 Anion Gap 7.4 (7.0-16.0) 04/18/17 06:55 BUN 33 mg/dL (7-25) H 04/18/17 06:55 Creatinine 1.5 mg/dL (0.7-1.3) H 04/18/17 06:55 Est GFR ( Amer) > 60.0 ml/min (>90) 04/18/17 06:55 Est GFR (Non-Af Amer) 51.3 ml/min 04/18/17 06:55 BUN/Creatinine Ratio 22.0 04/18/17 06:55 Glucose 165 mg/dL (70-105) H 04/18/17 06:55 POC Glucose 149 MG/DL (70 - 105) H 04/18/17 17:56 Whole Bld Lactic Acid 1.53 mmol/L (0.60-1.99) 04/14/17 14:55 Calcium 8.1 mg/dL (8.6-10.3) L 04/18/17 06:55 Phosphorus 2.1 mg/dL (2.5-5.0) L 04/18/17 06:55 Magnesium 1.9 mg/dL (1.9-2.7) 04/18/17 06:55 Total Bilirubin 1.1 mg/dL (0.3-1.0) H 04/18/17 06:55 AST 36 U/L (13-39) 04/18/17 06:55 ALT 23 U/L (7-52) 04/18/17 06:55 Alkaline Phosphatase 57 U/L (34-104) 04/18/17 06:55 Creatine Kinase 136 U/L (30-223) 04/14/17 14:55 Troponin I 0.01 ng/mL (0.01-0.05) 04/16/17 04:56 B-Natriuretic Peptide 85.5 pg/mL (5.0-100.0) 04/14/17 14:55 Total Protein 5.2 gm/dL (6.0-8.3) L 04/18/17 06:55 Albumin 2.1 gm/dL (4.2-5.5) L 04/18/17 06:55 Globulin 3.1 gm/dL 04/18/17 06:55 Albumin/Globulin Ratio 0.7 (1.0-1.8) L 04/18/17 06:55 Prealbumin 5 mg/dL (10-36) L 04/17/17 05:14 Triglycerides 173 mg/dL (<150) H 04/17/17 05:14 Cholesterol 80 mg/dL (<200) 04/14/17 14:55 LDL Cholesterol Direct 38 mg/dL (75-193) L 04/14/17 14:55 HDL Cholesterol 13 mg/dL (23-92) L 04/14/17 14:55 Amylase 31 U/L (29-103) 04/14/17 14:55 Lipase 15 U/L (11-82) 04/14/17 14:55 Urine Source CLEAN C 04/14/17 15:05 Urine Color ORANGE 04/14/17 15:05 Urine Clarity SLIGHT HAZY (CLEAR) 04/14/17 15:05 Urine pH 5.5 04/14/17 15:05 Ur Specific [place] 1.020 (1.005-1.030) 04/14/17 15:05 Urine Protein 100 mg/dL (NEGATIVE) H 04/14/17 15:05 Urine Glucose (UA) NEGATIVE mg/dL (NEGATIVE) 04/14/17 15:05 Urine Ketones 15 mg/dL (NEGATIVE) H 04/14/17 15:05 Urine Blood SMALL (NEGATIVE) H 04/14/17 15:05 Urine Nitrate NEGATIVE (NEGATIVE) 04/14/17 15:05 Urine Bilirubin SMALL (NEGATIVE) H 04/14/17 15:05 Urine Urobilinogen 1.0 E.U./dL (0.2 - 1.0) 04/14/17 15:05 Ur Leukocyte Esterase NEGATIVE (NEGATIVE) 04/14/17 15:05 Urine RBC 2-5 /hpf (0-5) H 04/14/17 15:05 Urine WBC 0-2 /hpf (0-5) 04/14/17 15:05 Ur Epithelial Cells OCCASIONAL /lpf (FEW) 04/14/17 15:05 Amorphous Sediment MANY URATES (NONE SEEN) 04/14/17 15:05 Urine Bacteria 1+ /hpf (NONE SEEN) H 04/14/17 15:05 Vancomycin Trough 10.8 ug/mL (10-20) 04/18/17 06:55 Blood Type O POSITIVE 04/14/17 20:36 Antibody Screen NEGATIVE 04/14/17 20:36 - Physical Exam Vitals and I&O: Vital Signs Temp 98.5 F 04/18/17 20:00 Pulse 110 04/18/17 20:00 Resp 21 04/18/17 20:00 BP 148/87 04/18/17 20:00 Pulse Ox 100 04/18/17 20:00 Intake & Output 04/18/17 04/18/17 04/19/17 06:59 18:59 06:59 Intake Total 200 1662.167 Output Total 1120 2340 Balance -920 -677.833 Weight (lbs) 117.934 kg 117.934 kg Intake: Intake, IV Amount 200 432.167 Fluconazole 200mg/100mL 100 200 mg In 100 ml @ 100 mls/hr IV Q24HR [facility] Rx#: [id number] Piperacillin Sodium/ 100 200 Tazobact 4.5 gm In Sodium Chloride 0.9% 100 ml @ 100 mls/hr IV Q6HR [facility] Rx #:[id number] Sodium Chloride 0.9% 500 232.167 ml @ 10 mls/hr IV .Q24H [facility] Rx#:[id number] Oral 0 TPN/PPN 1170 Other 60 Output: Gastric Drainage 600 Drainage 80 140 Left Lower Abdomen 40 Right Lower Abdomen 40 140 Urine 1000 1600 Stool 40 Other: Stool Characteristics Liquid Liquid Liquid Brown Brown Brown Bloody Bloody Bloody Active Medications: Current Medications Albuterol/Ipratropium (Duoneb Neb) 3 ml HHN Q4HRT [facility] Stop: 06/15/17 14:59 Last Admin: 04/18/17 19:13 Dose: 3 ml Budesonide (Pulmicort) 0.5 mg HHN BIDRT [facility] Stop: 06/15/17 18:59 Last Admin: 04/18/17 19:13 Dose: 0.5 mg Chlorhexidine Gluconate (Peridex) 15 ml MM 08,1999 [facility] Stop: 06/13/17 19:59 Last Admin: 04/18/17 20:06 Dose: 15 ml Hydromorphone HCl (Dilaudid) 1 mg IVP Q4HR PRN PRN Reason: Pain (Severe) Stop: 06/13/17 20:22 Last Admin: 04/18/17 14:10 Dose: 1 mg Piperacillin Sod/Tazobactam (Sod 4.5 gm/ Sodium Chloride) 100 mls @ 100 mls/hr IV Q6HR [facility] Stop: 06/14/17 00:00 Last Infusion: 04/18/17 18:55 Dose: Infused Sodium Chloride (Nacl 0.9%) 500 mls @ 10 mls/hr IV .Q24H [facility] Stop: 06/15/17 15:59 Last Admin: 04/18/17 16:23 Dose: 10 mls/hr Fluconazole (Diflucan) 200 mg in 100 mls @ 100 mls/hr IV Q24HR [facility] Stop: 06/15/17 22:59 Last Infusion: 04/18/17 00:04 Dose: Infused Vancomycin HCl 1 gm/ Sodium (Chloride) 250 mls @ 165 mls/hr IV Q24HR@0800,1999 [facility] Stop: 06/17/17 19:59 Last Admin: 04/18/17 20:07 Dose: 165 mls/hr Multivitamins/Minerals 10 ml/Amino Acids/ Fat Emulsion Intravenous 2,160 mls @ 90 mls/hr IV .Q24H [facility] Stop: 06/17/17 15:59 Last Admin: 04/18/17 16:00 Dose: 90 mls/hr Insulin Aspart (Novolog Insulin Sliding Scale) 0 units SUBQ Q6HR [facility]AN PRN Reason: Protocol Stop: 06/16/17 17:59 Last Admin: 04/18/17 17:57 Dose: Not Given Lactobacillus Rhamnosus (Culturelle) 1 each PO DAILY [facility]AN Stop: 06/15/17 08:59 Last Admin: 04/18/17 09:30 Dose: 1 each Lorazepam (Ativan) 1 mg IVP Q4HR PRN; Protocol PRN Reason: AGITATION Stop: 06/17/17 13:27 Last Admin: 04/18/17 20:07 Dose: 1 mg Miscellaneous (Probiotic Screen) 1 ea PRN PRN PRN Reason: PROTOCOL Stop: 06/14/17 09:39 Miscellaneous (Vancomycin Iv Per Pharmacy) 1 ea MC PRN [facility]AN Stop: 06/14/17 12:44 Miscellaneous (Clinical Monitoring) 1 ea MC DAILY PRN PRN Reason: RENAL Stop: 06/15/17 12:48 Miscellaneous (Tpn Per Pharmacy) 1 ea PRN PRN PRN Reason: PROTOCOL Stop: 06/16/17 12:28 Morphine Sulfate (Morphine) 4 mg IVP Q2HR PRN PRN Reason: Pain (Moderate) Stop: 06/15/17 10:53 Ondansetron HCl (Zofran) 4 mg IVP Q6H PRN PRN Reason: Nausea / Vomiting Stop: 06/13/17 20:08 Pantoprazole Sodium (Protonix) 40 mg IVP DAILY [facility] Stop: 06/15/17 08:59 Last Admin: 04/18/17 09:30 Dose: 40 mg General: no acute distress, well developed, well nourished HEENT: atraumatic, normocephalic, EOMI Neck: supple, no thyromegaly Cardiovascular: S1S2, regular Lungs: clear to auscultation bilaterally, clear to percussion Abdomen: soft, tender, distended, bowel sounds (hypoactive), other (Ronald drain with serous fluid.), no hepatomegaly, no splenomegaly Extremities: no cyanosis, no clubbing, no edema Neurological: awake, alert, other (drowsy.) Skin: intact - Procedures Procedures: Procedures Procedure Code Date BYPASS SIGMOID COLON TO CUTANEOUS, OPEN APPROACH [id number] 04/14/17 PARTIAL REMOVAL OF COLON 24620 04/14/17 RESECTION OF SIGMOID COLON, OPEN APPROACH [id number] 04/14/17 RESPIRATORY VENTILATION, LESS THAN 24 CONSECUTIVE HOURS [id number] 04/14/17 VENT MGMT INPAT INIT DAY 67140 04/14/17 Infectious Disease Assmt/Plan - Problem List Patient Problems: All Active Problems Abscess of sigmoid colon due to diverticulitis (Acute) K57.20 Diverticulitis of sigmoid colon (Acute) K57.32 Obesity (Acute) E66.9 Perforation of sigmoid colon due to diverticulitis (Acute) K57.20 Peritonitis (acute) generalized (Acute) K65.0 - Assessment Assessment: 1. Sepsis. 2. Diverticulitis, sigmoid diverticula to with support complicated by multiple abscesses and peritonitis. 3. Post operatively, on ventilator. 4. Peritonitis. Likely polymicrobial. 5. History of asthma. 6. History of arthritis. 7. Distended abdomen likely post operative ileus. Rule out small bowel obstruction. 8. SEKOU. 9. Post op, paralytic ileus. Plan: Continue Zosyn, diflucan and vancomycin. Sepsis workup was performed and follow the sepsis workup. Follow-up CBC and CMP in the morning. Otherwise, for fever will use ice packs and if needed Cooling blanket. KUB in AM.
[2017-04-18] MEDS: Fluconazole 200mg/100mL 200 MG/100 ML BAG IV SCH (23:36)
[2017-04-19] MEDS: INSULIN ASPART SLIDING SCALE 100 UNITS/ML UNIT SUBQ SCH ×4 (00:33→17:40)
[2017-04-19] MEDS: HYDROmorphone 1 mg/mL 1mL Syr IVP PRN ×4 (01:08→17:00)
[2017-04-19] MEDS: Albuterol/Ipratropium Neb 3 ML AERS HHN SCH ×6 (03:17→23:05)
[2017-04-19 05:15] LABS: HEMATOCRIT 26.3 % (39.0-49.0); HEMOGLOBIN 8.6 gm/dL (13.2-17.3); MEAN CELL VOLUME 81.5 fl (80-99); MEAN CORPUSCULAR HEMOGLOBIN 26.8 pg (26.0-30.0); MEAN CORPUSCULAR HGB CONC 32.9 pg (28.0-36.0); MEAN PLATELET VOLUME 7.7 fl; PLATELET COUNT 526 Th/cmm (150-400); RED BLOOD COUNT 3.22 Mil/cmm (4.30-5.70); RED CELL DISTRIBUTION WIDTH 15.6 % (11.5-20.0)
[2017-04-19 05:46] LABS: WHITE BLOOD COUNT 13.6 Th/cmm (4.8-10.8)
[2017-04-19 05:54] LABS: ALB/GLOB RATIO 0.6 (1.0-1.8); ALKALINE PHOSPHATASE 58 U/L (34-104); ANION GAP 6.3 (7.0-16.0); BILIRUBIN,TOTAL 1.1 mg/dL (0.3-1.0); BUN - UREA NITROGEN 28 mg/dL (7-25); BUN/CREATININE RATIO 21.5; CARBON DIOXIDE 26.3 mEq/L (21.0-31.0); CHLORIDE 117 mEq/L (98-107); CREATININE - SERUM 1.3 mg/dL (0.7-1.3); GLUCOSE 154 mg/dL (70-105); MAGNESIUM 1.8 mg/dL (1.9-2.7); PHOSPHOROUS 2.4 mg/dL (2.5-5.0); POTASSIUM SERUM 3.6 mEq/L (3.5-5.1); SGOT 49 U/L (13-39); SGPT/ALT 24 U/L (7-52); SODIUM SERUM 146 mEq/L (136-145)
[2017-04-19 07:07] LABS: BAND NEUTROPHILE 3 % (0-10); EOSINOPHIL 1 % (0-5); NEUTROPHILS 82 % (40-80); TOTAL CELLS COUNTED 100
[2017-04-19 07:08] LABS: PLATELET ESTIMATE INCREASED PLATELETS (NORMAL); PLATELET MORPHOLOGY PLATELET CLUMPS SEEN (NORMAL)
[2017-04-19] MEDS: Budesonide 0.5 Mg/2 mL Ud HHN SCH ×2 (07:22→20:00)
[2017-04-19] MEDS: Lactobacillus Rhamnosus 10 Billion CFU Capsule PO SCH (09:04)
[2017-04-19 09:24] LABS: ABG SOURCE Arterial; ALLEN TEST YES; HCO3 27.3 mEq/L (20.0-26.0); pH 7.45 (7.35-7.45)
[2017-04-19 09:25] LABS: CRITICAL VALUES REPORTED BY SH; FIO2 35
--- NOTE | 2017-04-19 09:41 | Diagnostic Imaging Report ---
Portable chest x-ray HISTORY: Shortness of breath Compared to prior exam of April 18, 2017, the heart remains enlarged. An endotracheal tube has been removed. No focal pulmonary processes. IMPRESSION: 1. Status post removal endotracheal tube 2. No focal pulmonary processes
--- NOTE | 2017-04-19 09:43 | General Progress Note ---
Subjective - Review of Systems Subjective: Patient is seen and examined. Patient is now extubated. Patient's family at bedside. As per daughter patient does not want restrain. I did discuss with the RN and advised to discontinue restrain it was noted patient is having some pain on his left and right wrist. Patient's daughter stated he has ready joint disease and questionable gout. Discussed with RN colostomy is working after manipulating the colostomy stoma by surgeon. Patient is a full code CODE STATUS is addressed. Objective - Results Result Diagrams: 04/19/17 04:40 04/19/17 04:40 Recent Labs: Laboratory Last Values WBC 13.6 Th/cmm (4.8-10.8) H 04/19/17 04:40 RBC 3.22 Mil/cmm (4.30-5.70) L 04/19/17 04:40 Hgb 8.6 gm/dL (13.2-17.3) L 04/19/17 04:40 Hct 26.3 % (39.0-49.0) L 04/19/17 04:40 MCV 81.5 fl (80-99) 04/19/17 04:40 MCH 26.8 pg (26.0-30.0) 04/19/17 04:40 MCHC Differential 32.9 pg (28.0-36.0) 04/19/17 04:40 RDW 15.6 % (11.5-20.0) 04/19/17 04:40 Plt Count 526 Th/cmm (150-400) H 04/19/17 04:40 MPV 7.7 fl 04/19/17 04:40 Band Neutrophils % 3 % (0-10) 04/19/17 04:40 Lymphocytes % COMMERCIAL INSTRUCTOR SUPERVISOR 04/15/17 04:37 Monocytes % COMMERCIAL INSTRUCTOR SUPERVISOR 04/15/17 04:37 Eosinophils % COMMERCIAL INSTRUCTOR SUPERVISOR 04/15/17 04:37 Neutrophils (Manual) 82 % (40-80) H 04/19/17 04:40 Lymphocytes 9 % (20-50) L 04/19/17 04:40 Monocytes 5 % (2-10) 04/19/17 04:40 Eosinophils 1 % (0-5) 04/19/17 04:40 Platelet Estimate INCREASED PLATELETS (NORMAL) 04/19/17 04:40 Platelet Morphology PLATELET CLUMPS SEEN (NORMAL) 04/19/17 04:40 PT 12.9 SECONDS (9.5-11.5) H 04/14/17 14:55 INR 1.23 (0.5-1.4) 04/14/17 14:55 PTT (Actin FS) 29.8 SECONDS (26.0-38.0) 04/14/17 14:55 Specimen Source Arterial 04/19/17 09:00 Sample Site Right Radial 04/19/17 09:00 pH 7.45 (7.35-7.45) 04/19/17 09:00 pCO2 39.0 mmHg (35.0-45.0) 04/19/17 09:00 pO2 127.0 mmHg (80.0-100.0) H 04/19/17 09:00 HCO3 27.3 mEq/L (20.0-26.0) H 04/19/17 09:00 Base Excess 3.0 mEq/L (-3.0-3.0) 04/19/17 09:00 O2 Saturation 99.0 % (92.0-100.0) 04/19/17 09:00 Chau Test YES 04/19/17 09:00 Vent Rate NA 04/19/17 09:00 Inspired O2 35 04/19/17 09:00 Tidal Volume NA 04/19/17 09:00 PEEP NA 04/19/17 09:00 Pressure (ins/psv/peep) NA 04/19/17 09:00 Critical Value SH 04/19/17 09:00 Sodium 146 mEq/L (136-145) H 04/19/17 04:40 Potassium 3.6 mEq/L (3.5-5.1) 04/19/17 04:40 Chloride 117 mEq/L (98-107) H 04/19/17 04:40 Carbon Dioxide 26.3 mEq/L (21.0-31.0) 04/19/17 04:40 Anion Gap 6.3 (7.0-16.0) L 04/19/17 04:40 BUN 28 mg/dL (7-25) H 04/19/17 04:40 Creatinine 1.3 mg/dL (0.7-1.3) 04/19/17 04:40 Est GFR ( Amer) > 60.0 ml/min (>90) 04/19/17 04:40 Est GFR (Non-Af Amer) > 60.0 ml/min 04/19/17 04:40 BUN/Creatinine Ratio 21.5 04/19/17 04:40 Glucose 154 mg/dL (70-105) H 04/19/17 04:40 POC Glucose 133 MG/DL (70 - 105) H 04/19/17 05:41 Whole Bld Lactic Acid 1.53 mmol/L (0.60-1.99) 04/14/17 14:55 Calcium 8.0 mg/dL (8.6-10.3) L 04/19/17 04:40 Phosphorus 2.4 mg/dL (2.5-5.0) L 04/19/17 04:40 Magnesium 1.8 mg/dL (1.9-2.7) L 04/19/17 04:40 Total Bilirubin 1.1 mg/dL (0.3-1.0) H 04/19/17 04:40 AST 49 U/L (13-39) H 04/19/17 04:40 ALT 24 U/L (7-52) 04/19/17 04:40 Alkaline Phosphatase 58 U/L (34-104) 04/19/17 04:40 Creatine Kinase 136 U/L (30-223) 04/14/17 14:55 Troponin I 0.01 ng/mL (0.01-0.05) 04/16/17 04:56 B-Natriuretic Peptide 85.5 pg/mL (5.0-100.0) 04/14/17 14:55 Total Protein 5.4 gm/dL (6.0-8.3) L 04/19/17 04:40 Albumin 2.1 gm/dL (4.2-5.5) L 04/19/17 04:40 Globulin 3.3 gm/dL 04/19/17 04:40 Albumin/Globulin Ratio 0.6 (1.0-1.8) L 04/19/17 04:40 Prealbumin 5 mg/dL (10-36) L 04/17/17 05:14 Triglycerides 238 mg/dL (<150) H 04/19/17 04:40 Cholesterol 80 mg/dL (<200) 04/19/17 04:40 LDL Cholesterol Direct 38 mg/dL (75-193) L 04/14/17 14:55 HDL Cholesterol 13 mg/dL (23-92) L 04/14/17 14:55 Amylase 31 U/L (29-103) 04/14/17 14:55 Lipase 15 U/L (11-82) 04/14/17 14:55 Urine Source CLEAN C 04/14/17 15:05 Urine Color ORANGE 04/14/17 15:05 Urine Clarity SLIGHT HAZY (CLEAR) 04/14/17 15:05 Urine pH 5.5 04/14/17 15:05 Ur Specific [place] 1.020 (1.005-1.030) 04/14/17 15:05 Urine Protein 100 mg/dL (NEGATIVE) H 04/14/17 15:05 Urine Glucose (UA) NEGATIVE mg/dL (NEGATIVE) 04/14/17 15:05 Urine Ketones 15 mg/dL (NEGATIVE) H 04/14/17 15:05 Urine Blood SMALL (NEGATIVE) H 04/14/17 15:05 Urine Nitrate NEGATIVE (NEGATIVE) 04/14/17 15:05 Urine Bilirubin SMALL (NEGATIVE) H 04/14/17 15:05 Urine Urobilinogen 1.0 E.U./dL (0.2 - 1.0) 04/14/17 15:05 Ur Leukocyte Esterase NEGATIVE (NEGATIVE) 04/14/17 15:05 Urine RBC 2-5 /hpf (0-5) H 04/14/17 15:05 Urine WBC 0-2 /hpf (0-5) 04/14/17 15:05 Ur Epithelial Cells OCCASIONAL /lpf (FEW) 04/14/17 15:05 Amorphous Sediment MANY URATES (NONE SEEN) 04/14/17 15:05 Urine Bacteria 1+ /hpf (NONE SEEN) H 04/14/17 15:05 Vancomycin Trough 10.8 ug/mL (10-20) 04/18/17 06:55 Blood Type O POSITIVE 04/14/17 20:36 Antibody Screen NEGATIVE 04/14/17 20:36 - Physical Exam Vitals and I&O: Vital Signs Temp 98.7 F 04/19/17 06:00 Pulse 108 04/19/17 07:35 Resp 26 04/19/17 07:35 BP 146/79 04/19/17 06:00 Pulse Ox 100 04/19/17 07:35 Intake & Output 04/18/17 04/19/17 04/19/17 18:59 06:59 18:59 Intake Total 1662.167 550 Output Total 2340 1750 Balance -677.833 -1200 Weight (lbs) 117.934 kg 94.801 kg Intake: Intake, IV Amount 432.167 550 Fluconazole 200mg/100mL 100 200 mg In 100 ml @ 100 mls/hr IV Q24HR [facility] Rx#: [id number] Piperacillin Sodium/ 200 200 Tazobact 4.5 gm In Sodium Chloride 0.9% 100 ml @ 100 mls/hr IV Q6HR [facility] Rx #:[id number] Sodium Chloride 0.9% 500 232.167 ml @ 10 mls/hr IV .Q24H [facility] Rx#:[id number] Vancomycin HCl 1 gm In 250 Sodium Chloride 0.9% 250 ml @ 165 mls/hr IV Q24HR@ 0800,2000 [facility] Rx#: [id number] TPN/PPN 1170 Other 60 Output: Gastric Drainage 600 100 Drainage 140 50 Right Lower Abdomen 140 50 Urine 1600 1550 Other 50 Other: Stool Characteristics Liquid Liquid Brown Brown Bloody Bloody Active Medications: Current Medications Albuterol/Ipratropium (Duoneb Neb) 3 ml HHN Q4HRT [facility] Stop: 06/15/17 14:59 Last Admin: 04/19/17 07:22 Dose: 3 ml Budesonide (Pulmicort) 0.5 mg HHN BIDRT [facility] Stop: 06/15/17 18:59 Last Admin: 04/19/17 07:22 Dose: 0.5 mg Hydromorphone HCl (Dilaudid) 1 mg IVP Q4HR PRN PRN Reason: Pain (Severe) Stop: 06/13/17 20:22 Last Admin: 04/19/17 07:54 Dose: 1 mg Piperacillin Sod/Tazobactam (Sod 4.5 gm/ Sodium Chloride) 100 mls @ 100 mls/hr IV Q6HR [facility] Stop: 06/14/17 00:00 Last Infusion: 04/19/17 06:35 Dose: Infused Sodium Chloride (Nacl 0.9%) 500 mls @ 10 mls/hr IV .Q24H [facility] Stop: 06/15/17 15:59 Last Admin: 04/18/17 16:23 Dose: 10 mls/hr Fluconazole (Diflucan) 200 mg in 100 mls @ 100 mls/hr IV Q24HR [facility] Stop: 06/15/17 22:59 Last Infusion: 04/19/17 00:40 Dose: Infused Vancomycin HCl 1 gm/ Sodium (Chloride) 250 mls @ 165 mls/hr IV Q24HR@0800,1999 [facility] Stop: 06/17/17 19:59 Last Admin: 04/19/17 08:00 Dose: 165 mls/hr Multivitamins/Minerals 10 ml/Amino Acids/ Fat Emulsion Intravenous 2,160 mls @ 90 mls/hr IV .Q24H [facility] Stop: 06/17/17 15:59 Last Admin: 04/18/17 16:00 Dose: 90 mls/hr Potassium Phosphate 12 mmole/ (Sodium Chloride) 254 mls @ 42 mls/hr IV ONCE ONE Stop: 04/19/17 16:02 Last Admin: 04/19/17 09:04 Dose: 42 mls/hr Insulin Aspart (Novolog Insulin Sliding Scale) 0 units SUBQ Q6HR [facility] PRN Reason: Protocol Stop: 06/16/17 17:59 Last Admin: 04/19/17 05:47 Dose: Not Given Lactobacillus Rhamnosus (Culturelle) 1 each PO DAILY [facility] Stop: 06/15/17 08:59 Last Admin: 04/19/17 09:04 Dose: 1 each Lorazepam (Ativan) 1 mg IVP Q4HR PRN; Protocol PRN Reason: AGITATION Stop: 06/17/17 13:27 Last Admin: 04/19/17 04:28 Dose: 1 mg Miscellaneous (Probiotic Screen) 1 ea MC PRN PRN PRN Reason: PROTOCOL Stop: 06/14/17 09:39 Miscellaneous (Vancomycin Iv Per Pharmacy) 1 ea MC PRN [facility]AN Stop: 06/14/17 12:44 Miscellaneous (Clinical Monitoring) 1 ea MC DAILY PRN PRN Reason: RENAL Stop: 06/15/17 12:48 Miscellaneous (Tpn Per Pharmacy) 1 ea MC PRN PRN PRN Reason: PROTOCOL Stop: 06/16/17 12:28 Morphine Sulfate (Morphine) 4 mg IVP Q2HR PRN PRN Reason: Pain (Moderate) Stop: 06/15/17 10:53 Ondansetron HCl (Zofran) 4 mg IVP Q6H PRN PRN Reason: Nausea / Vomiting Stop: 06/13/17 20:08 Pantoprazole Sodium (Protonix) 40 mg IVP DAILY [facility] Stop: 06/15/17 08:59 Last Admin: 04/19/17 09:04 Dose: 40 mg General: Alert, Oriented x3, Cooperative HEENT: Atraumatic, PERRLA, EOMI, Mucous membr. moist/pink, Other (oral endotracheal tube.) Neck: Supple, +2 carotid pulse wo bruit Cardiovascular: Regular rate, Normal S1, Normal S2 Lungs: Other (diffuse rhonchi.) Abdomen: Soft, Distended, Other (left colostomy bag with the serosanguineous discharge. ROLANDO drain right side.) Neurological: Normal speech Psych/Mental Status: Mood NL - Procedures Procedures: Procedures Procedure Code Date BYPASS SIGMOID COLON TO CUTANEOUS, OPEN APPROACH [id number] 04/14/17 PARTIAL REMOVAL OF COLON 95955 04/14/17 RESECTION OF SIGMOID COLON, OPEN APPROACH [id number] 04/14/17 RESPIRATORY VENTILATION, LESS THAN 24 CONSECUTIVE HOURS [id number] 04/14/17 VENT MGMT INPAT INIT DAY 26405 04/14/17 Assessment/Plan - Problem List Patient Problems: All Active Problems Abscess of sigmoid colon due to diverticulitis (Acute) K57.20 Diverticulitis of sigmoid colon (Acute) K57.32 Obesity (Acute) E66.9 Perforation of sigmoid colon due to diverticulitis (Acute) K57.20 Peritonitis (acute) generalized (Acute) K65.0 - Assessment Assessment: Current Active Problems Problem Status Onset Abscess of sigmoid colon due to diverticulitis Acute Diverticulitis of sigmoid colon Acute Obesity Acute Perforation of sigmoid colon due to diverticulitis Acute Peritonitis (acute) generalized Acute Perforated sigmoid diverticulitis status post exploratory laparotomy and sigmoid colectomy intra-abdominal abscess drainage lysis of pleural Ada procedure and colostomy. Postoperative respiratory failure improving. Obesity Asthma Recurrent fever. Bilateral wrist swelling and pain. Increasing agitation at times. Bleeding from NG tube side most likely is due to Lovenox. ICU status Leukocytosis secondary to infection Postop anemia. - Plan Plan: Postoperative care as per Dr. carty. ID consult and follow-up. IV antibiotic. Oxygen, nebulizer treatment. TPN. Full code. Bilateral x-rays of the wrist. Pulmonary follow-up. GI and DVT prophylaxis. Follow-up lab. Follow up on educational consultant recommendations. Care plan reviewed and discussed with patient's RN and family. All questions answered. Symptoms management. Medication management.
--- NOTE | 2017-04-19 09:43 | Diagnostic Imaging Report ---
KUB abdominal film HISTORY: Abdominal distention, pain There is a mildly distended air-filled stomach along with several mildly dilated loops of bowel. Overall appearance is nonspecific. No free intraperitoneal air. Nasogastric tube extends into the region of the stomach. Surgical drain noted over the pelvis. IMPRESSION: 1. Mildly dilated stomach along with several mildly dilated bowel loops. Overall appearance is nonspecific.
[2017-04-19] MEDS ORDERED: SODIUM CHLORIDE IV ONE (10:00)
[2017-04-19] MEDS ORDERED: POTASSIUM PHOSPHATE IV ONE (10:00)
--- NOTE | 2017-04-19 11:07 | Diagnostic Imaging Report ---
Exam: Right wrist joint 3 views HISTORY: Pain Findings. Multiple views of the right wrist joint reviewed. The study demonstrates a fracture through the waist of the right ventricular bone. Degenerative changes of the radiocarpal joint with extensive narrowing of joint space appreciated. The visualized ulna is intact. IMPRESSION: 1. Fracture through the waist of the right navicular bone, a subtle clear whether this represents subacute finding , clinical correlation recommended. Degenerative changes radiocarpal joint with narrowing of joint space.
--- NOTE | 2017-04-19 11:09 | Diagnostic Imaging Report ---
Exam: Left wrist joint 3 views HISTORY: pain Multiple views of left wrist joint reviewed the study demonstrates extensive severe destruction of the radiocarpal joint space carpal bones and distal left ulna and radius. The findings most likely chronic this represents sequela of osteomyelitis. Charcot joint cannot be excluded. Ventral displacement of the carpal bones appreciated IMPRESSION: 1. Extensive destruction of the left wrist joint question of Charcot joint sequela of chronic osteomyelitis correlation with previous examination recommended.
[2017-04-19] MEDS: Morphine Sulfate 4 mg/mL 1mL Syr IVP PRN (11:40)
--- NOTE | 2017-04-19 12:57 | Infectious Disease Prog Note ---
Infectious Disease Subjective - Review of Systems Service Date: 04/19/17 Subjective: On VM. drowsy, confused. Unable to pass gas. both wrist are swollen. Infectious Disease Objective - Results Result Diagrams: 04/19/17 04:40 04/19/17 04:40 Recent Labs: Laboratory Last Values WBC 13.6 Th/cmm (4.8-10.8) H 04/19/17 04:40 RBC 3.22 Mil/cmm (4.30-5.70) L 04/19/17 04:40 Hgb 8.6 gm/dL (13.2-17.3) L 04/19/17 04:40 Hct 26.3 % (39.0-49.0) L 04/19/17 04:40 MCV 81.5 fl (80-99) 04/19/17 04:40 MCH 26.8 pg (26.0-30.0) 04/19/17 04:40 MCHC Differential 32.9 pg (28.0-36.0) 04/19/17 04:40 RDW 15.6 % (11.5-20.0) 04/19/17 04:40 Plt Count 526 Th/cmm (150-400) H 04/19/17 04:40 MPV 7.7 fl 04/19/17 04:40 Band Neutrophils % 3 % (0-10) 04/19/17 04:40 Lymphocytes % [employer] 04/15/17 04:37 Monocytes % [employer] 04/15/17 04:37 Eosinophils % [employer] 04/15/17 04:37 Neutrophils (Manual) 82 % (40-80) H 04/19/17 04:40 Lymphocytes 9 % (20-50) L 04/19/17 04:40 Monocytes 5 % (2-10) 04/19/17 04:40 Eosinophils 1 % (0-5) 04/19/17 04:40 Platelet Estimate INCREASED PLATELETS (NORMAL) 04/19/17 04:40 Platelet Morphology PLATELET CLUMPS SEEN (NORMAL) 04/19/17 04:40 PT 12.9 SECONDS (9.5-11.5) H 04/14/17 14:55 INR 1.23 (0.5-1.4) 04/14/17 14:55 PTT (Actin FS) 29.8 SECONDS (26.0-38.0) 04/14/17 14:55 Specimen Source Arterial 04/19/17 09:00 Sample Site Right Radial 04/19/17 09:00 pH 7.45 (7.35-7.45) 04/19/17 09:00 pCO2 39.0 mmHg (35.0-45.0) 04/19/17 09:00 pO2 127.0 mmHg (80.0-100.0) H 04/19/17 09:00 HCO3 27.3 mEq/L (20.0-26.0) H 04/19/17 09:00 Base Excess 3.0 mEq/L (-3.0-3.0) 04/19/17 09:00 O2 Saturation 99.0 % (92.0-100.0) 04/19/17 09:00 Chau Test YES 04/19/17 09:00 Vent Rate NA 04/19/17 09:00 Inspired O2 35 04/19/17 09:00 Tidal Volume NA 04/19/17 09:00 PEEP NA 04/19/17 09:00 Pressure (ins/psv/peep) NA 04/19/17 09:00 Critical Value SH 04/19/17 09:00 Sodium 146 mEq/L (136-145) H 04/19/17 04:40 Potassium 3.6 mEq/L (3.5-5.1) 04/19/17 04:40 Chloride 117 mEq/L (98-107) H 04/19/17 04:40 Carbon Dioxide 26.3 mEq/L (21.0-31.0) 04/19/17 04:40 Anion Gap 6.3 (7.0-16.0) L 04/19/17 04:40 BUN 28 mg/dL (7-25) H 04/19/17 04:40 Creatinine 1.3 mg/dL (0.7-1.3) 04/19/17 04:40 Est GFR ( Amer) > 60.0 ml/min (>90) 04/19/17 04:40 Est GFR (Non-Af Amer) > 60.0 ml/min 04/19/17 04:40 BUN/Creatinine Ratio 21.5 04/19/17 04:40 Glucose 154 mg/dL (70-105) H 04/19/17 04:40 POC Glucose 133 MG/DL (70 - 105) H 04/19/17 05:41 Whole Bld Lactic Acid 1.53 mmol/L (0.60-1.99) 04/14/17 14:55 Calcium 8.0 mg/dL (8.6-10.3) L 04/19/17 04:40 Phosphorus 2.4 mg/dL (2.5-5.0) L 04/19/17 04:40 Magnesium 1.8 mg/dL (1.9-2.7) L 04/19/17 04:40 Total Bilirubin 1.1 mg/dL (0.3-1.0) H 04/19/17 04:40 AST 49 U/L (13-39) H 04/19/17 04:40 ALT 24 U/L (7-52) 04/19/17 04:40 Alkaline Phosphatase 58 U/L (34-104) 04/19/17 04:40 Creatine Kinase 136 U/L (30-223) 04/14/17 14:55 Troponin I 0.01 ng/mL (0.01-0.05) 04/16/17 04:56 B-Natriuretic Peptide 85.5 pg/mL (5.0-100.0) 04/14/17 14:55 Total Protein 5.4 gm/dL (6.0-8.3) L 04/19/17 04:40 Albumin 2.1 gm/dL (4.2-5.5) L 04/19/17 04:40 Globulin 3.3 gm/dL 04/19/17 04:40 Albumin/Globulin Ratio 0.6 (1.0-1.8) L 04/19/17 04:40 Prealbumin 5 mg/dL (10-36) L 04/17/17 05:14 Triglycerides 238 mg/dL (<150) H 04/19/17 04:40 Cholesterol 80 mg/dL (<200) 04/19/17 04:40 LDL Cholesterol Direct 38 mg/dL (75-193) L 04/14/17 14:55 HDL Cholesterol 13 mg/dL (23-92) L 04/14/17 14:55 Amylase 31 U/L (29-103) 04/14/17 14:55 Lipase 15 U/L (11-82) 04/14/17 14:55 Urine Source CLEAN C 04/14/17 15:05 Urine Color ORANGE 04/14/17 15:05 Urine Clarity SLIGHT HAZY (CLEAR) 04/14/17 15:05 Urine pH 5.5 04/14/17 15:05 Ur Specific [place] 1.020 (1.005-1.030) 04/14/17 15:05 Urine Protein 100 mg/dL (NEGATIVE) H 04/14/17 15:05 Urine Glucose (UA) NEGATIVE mg/dL (NEGATIVE) 04/14/17 15:05 Urine Ketones 15 mg/dL (NEGATIVE) H 04/14/17 15:05 Urine Blood SMALL (NEGATIVE) H 04/14/17 15:05 Urine Nitrate NEGATIVE (NEGATIVE) 04/14/17 15:05 Urine Bilirubin SMALL (NEGATIVE) H 04/14/17 15:05 Urine Urobilinogen 1.0 E.U./dL (0.2 - 1.0) 04/14/17 15:05 Ur Leukocyte Esterase NEGATIVE (NEGATIVE) 04/14/17 15:05 Urine RBC 2-5 /hpf (0-5) H 04/14/17 15:05 Urine WBC 0-2 /hpf (0-5) 04/14/17 15:05 Ur Epithelial Cells OCCASIONAL /lpf (FEW) 04/14/17 15:05 Amorphous Sediment MANY URATES (NONE SEEN) 04/14/17 15:05 Urine Bacteria 1+ /hpf (NONE SEEN) H 04/14/17 15:05 Vancomycin Trough 10.8 ug/mL (10-20) 04/18/17 06:55 Blood Type O POSITIVE 04/14/17 20:36 Antibody Screen NEGATIVE 04/14/17 20:36 - Physical Exam Vitals and I&O: Vital Signs Temp 98.7 F 04/19/17 06:00 Pulse 120 04/19/17 11:01 Resp 21 04/19/17 11:36 BP 146/79 04/19/17 06:00 Pulse Ox 100 04/19/17 11:01 Intake & Output 04/18/17 04/19/17 04/19/17 18:59 06:59 18:59 Intake Total 1662.167 550 247.5 Output Total 2340 1750 Balance -677.833 -1200 247.5 Weight (lbs) 117.934 kg 94.801 kg Intake: Intake, IV Amount 432.167 550 247.5 Fluconazole 200mg/100mL 100 200 mg In 100 ml @ 100 mls/hr IV Q24HR [facility] Rx#: [id number] Piperacillin Sodium/ 200 200 Tazobact 4.5 gm In Sodium Chloride 0.9% 100 ml @ 100 mls/hr IV Q6HR [facility] Rx #:[id number] Sodium Chloride 0.9% 500 232.167 ml @ 10 mls/hr IV .Q24H [facility] Rx#:[id number] Vancomycin HCl 1 gm In 250 247.5 Sodium Chloride 0.9% 250 ml @ 165 mls/hr IV Q24HR@ 0800,2000 [facility] Rx#: [id number] TPN/PPN 1170 Other 60 Output: Gastric Drainage 600 100 Drainage 140 50 Right Lower Abdomen 140 50 Urine 1600 1550 Other 50 Other: Stool Characteristics Liquid Liquid Brown Brown Bloody Bloody Active Medications: Current Medications Albuterol/Ipratropium (Duoneb Neb) 3 ml HHN Q4HRT [facility] Stop: 06/15/17 14:59 Last Admin: 04/19/17 11:00 Dose: 3 ml Budesonide (Pulmicort) 0.5 mg HHN BIDRT [facility] Stop: 06/15/17 18:59 Last Admin: 04/19/17 07:22 Dose: 0.5 mg Hydromorphone HCl (Dilaudid) 1 mg IVP Q4HR PRN PRN Reason: Pain (Severe) Stop: 06/13/17 20:22 Last Admin: 04/19/17 07:54 Dose: 1 mg Piperacillin Sod/Tazobactam (Sod 4.5 gm/ Sodium Chloride) 100 mls @ 100 mls/hr IV Q6HR [facility] Stop: 06/14/17 00:00 Last Admin: 04/19/17 12:00 Dose: 100 mls/hr Sodium Chloride (Nacl 0.9%) 500 mls @ 10 mls/hr IV .Q24H [facility] Stop: 06/15/17 15:59 Last Admin: 04/18/17 16:23 Dose: 10 mls/hr Fluconazole (Diflucan) 200 mg in 100 mls @ 100 mls/hr IV Q24HR [facility] Stop: 06/15/17 22:59 Last Infusion: 04/19/17 00:40 Dose: Infused Vancomycin HCl 1 gm/ Sodium (Chloride) 250 mls @ 165 mls/hr IV Q24HR@0800,1999 [facility] Stop: 06/17/17 19:59 Last Infusion: 04/19/17 09:30 Dose: 165 mls/hr Multivitamins/Minerals 10 ml/Amino Acids/ Fat Emulsion Intravenous 2,160 mls @ 90 mls/hr IV .Q24H [facility] Stop: 06/17/17 15:59 Last Admin: 04/18/17 16:00 Dose: 90 mls/hr Potassium Phosphate 12 mmole/ (Sodium Chloride) 254 mls @ 42 mls/hr IV ONCE ONE Stop: 04/19/17 16:02 Last Admin: 04/19/17 09:04 Dose: 42 mls/hr Magnesium Sulfate (Magnesium Sulfate Premix) 2 gm in 50 mls @ 25 mls/hr IV ONCE ONE Stop: 04/19/17 17:59 Insulin Aspart (Novolog Insulin Sliding Scale) 0 units SUBQ Q6HR [facility] PRN Reason: Protocol Stop: 06/16/17 17:59 Last Admin: 04/19/17 12:12 Dose: 2 units Lactobacillus Rhamnosus (Culturelle) 1 each PO DAILY [facility] Stop: 06/15/17 08:59 Last Admin: 04/19/17 09:04 Dose: 1 each Lorazepam (Ativan) 1 mg IVP Q4HR PRN; Protocol PRN Reason: AGITATION Stop: 06/17/17 13:27 Last Admin: 04/19/17 10:20 Dose: 1 mg Miscellaneous (Probiotic Screen) 1 ea PRN PRN PRN Reason: PROTOCOL Stop: 06/14/17 09:39 Miscellaneous (Vancomycin Iv Per Pharmacy) 1 ea MC PRN [facility] Stop: 06/14/17 12:44 Miscellaneous (Clinical Monitoring) 1 ea MC DAILY PRN PRN Reason: RENAL Stop: 06/15/17 12:48 Miscellaneous (Tpn Per Pharmacy) 1 ea PRN PRN PRN Reason: PROTOCOL Stop: 06/16/17 12:28 Morphine Sulfate (Morphine) 4 mg IVP Q2HR PRN PRN Reason: Pain (Moderate) Stop: 06/15/17 10:53 Last Admin: 04/19/17 11:40 Dose: 4 mg Ondansetron HCl (Zofran) 4 mg IVP Q6H PRN PRN Reason: Nausea / Vomiting Stop: 06/13/17 20:08 Pantoprazole Sodium (Protonix) 40 mg IVP DAILY [facility] Stop: 06/15/17 08:59 Last Admin: 04/19/17 09:04 Dose: 40 mg General: no acute distress, well developed, well nourished HEENT: atraumatic, normocephalic, PERRLA, EOMI, moist mucous membrane Neck: supple, no thyromegaly, no lymphadenopathy Cardiovascular: S1S2, regular Lungs: clear to auscultation bilaterally, clear to percussion Abdomen: soft, tender, distended, drain (ROLANDO x1 in RLQ serosanguinous fluid), other (Surgical incision is intact. Colostomy in LLQ.) Extremities: no cyanosis, no clubbing, no edema Neurological: awake, alert Skin: intact - Procedures Procedures: Procedures Procedure Code Date BYPASS SIGMOID COLON TO CUTANEOUS, OPEN APPROACH [id number] 04/14/17 PARTIAL REMOVAL OF COLON 63749 04/14/17 RESECTION OF SIGMOID COLON, OPEN APPROACH [id number] 04/14/17 RESPIRATORY VENTILATION, LESS THAN 24 CONSECUTIVE HOURS [id number] 04/14/17 VENT MGMT INPAT INIT DAY 21133 04/14/17 Infectious Disease Assmt/Plan - Problem List Patient Problems: All Active Problems Abscess of sigmoid colon due to diverticulitis (Acute) K57.20 Diverticulitis of sigmoid colon (Acute) K57.32 Obesity (Acute) E66.9 Perforation of sigmoid colon due to diverticulitis (Acute) K57.20 Peritonitis (acute) generalized (Acute) K65.0 - Assessment Assessment: 1. Sepsis. 2. Diverticulitis, sigmoid diverticula to with support complicated by multiple abscesses and peritonitis. 3. Post operatively, on ventilator. 4. Peritonitis. Likely polymicrobial. 5. History of asthma. 6. History of arthritis. 7. Distended abdomen likely post operative ileus. Rule out small bowel obstruction. 8. SEKOU. 9. Post op, paralytic ileus. 10. Wrist cellulitis, worse on left with destruction of bones. X ray of the left wrist suggested osteomyelitis. Patient might have underlying connective tissue disorder. Plan: Continue Zosyn, diflucan and vancomycin. Sepsis workup was performed and follow the sepsis workup. Follow-up CBC and CMP in the morning. Otherwise, for fever will use ice packs and if needed Cooling blanket. KUB in AM. Will check 3 phase bone scan to rule out osteomyelitis. patient is unable to go out of the hospital for MRI of the left wrist. Check ESR and CRP.
[2017-04-19] MEDS: MULTIVITAMIN IV SCH (16:00)
[2017-04-19] MEDS: INTRALIPIDS IV SCH (16:00)
[2017-04-19] MEDS: AMINO ACIDS IV SCH (16:00)
[2017-04-19] MEDS: DEXT 10% IV SCH (16:00)
[2017-04-19] MEDS ORDERED: Mag Sulfate 2gm/50mL Premix 2 GM/50 ML BAG IV ONE (16:00)
--- NOTE | 2017-04-19 21:33 | General Progress Note ---
Subjective - Review of Systems Subjective: agitate/restless, obtunded Objective - Results Result Diagrams: 04/19/17 04:40 04/19/17 04:40 Recent Labs: Laboratory Last Values WBC 13.6 Th/cmm (4.8-10.8) H 04/19/17 04:40 RBC 3.22 Mil/cmm (4.30-5.70) L 04/19/17 04:40 Hgb 8.6 gm/dL (13.2-17.3) L 04/19/17 04:40 Hct 26.3 % (39.0-49.0) L 04/19/17 04:40 MCV 81.5 fl (80-99) 04/19/17 04:40 MCH 26.8 pg (26.0-30.0) 04/19/17 04:40 MCHC Differential 32.9 pg (28.0-36.0) 04/19/17 04:40 RDW 15.6 % (11.5-20.0) 04/19/17 04:40 Plt Count 526 Th/cmm (150-400) H 04/19/17 04:40 MPV 7.7 fl 04/19/17 04:40 Band Neutrophils % 3 % (0-10) 04/19/17 04:40 Lymphocytes % [employer]ER 04/15/17 04:37 Monocytes % [employer]KER 04/15/17 04:37 Eosinophils % [employer]KER 04/15/17 04:37 Neutrophils (Manual) 82 % (40-80) H 04/19/17 04:40 Lymphocytes 9 % (20-50) L 04/19/17 04:40 Monocytes 5 % (2-10) 04/19/17 04:40 Eosinophils 1 % (0-5) 04/19/17 04:40 Platelet Estimate INCREASED PLATELETS (NORMAL) 04/19/17 04:40 Platelet Morphology PLATELET CLUMPS SEEN (NORMAL) 04/19/17 04:40 PT 12.9 SECONDS (9.5-11.5) H 04/14/17 14:55 INR 1.23 (0.5-1.4) 04/14/17 14:55 PTT (Actin FS) 29.8 SECONDS (26.0-38.0) 04/14/17 14:55 Specimen Source Arterial 04/19/17 09:00 Sample Site Right Radial 04/19/17 09:00 pH 7.45 (7.35-7.45) 04/19/17 09:00 pCO2 39.0 mmHg (35.0-45.0) 04/19/17 09:00 pO2 127.0 mmHg (80.0-100.0) H 04/19/17 09:00 HCO3 27.3 mEq/L (20.0-26.0) H 04/19/17 09:00 Base Excess 3.0 mEq/L (-3.0-3.0) 04/19/17 09:00 O2 Saturation 99.0 % (92.0-100.0) 04/19/17 09:00 Chau Test YES 04/19/17 09:00 Vent Rate NA 04/19/17 09:00 Inspired O2 35 04/19/17 09:00 Tidal Volume NA 04/19/17 09:00 PEEP NA 04/19/17 09:00 Pressure (ins/psv/peep) NA 04/19/17 09:00 Critical Value SH 04/19/17 09:00 Sodium 146 mEq/L (136-145) H 04/19/17 04:40 Potassium 3.6 mEq/L (3.5-5.1) 04/19/17 04:40 Chloride 117 mEq/L (98-107) H 04/19/17 04:40 Carbon Dioxide 26.3 mEq/L (21.0-31.0) 04/19/17 04:40 Anion Gap 6.3 (7.0-16.0) L 04/19/17 04:40 BUN 28 mg/dL (7-25) H 04/19/17 04:40 Creatinine 1.3 mg/dL (0.7-1.3) 04/19/17 04:40 Est GFR ( Amer) > 60.0 ml/min (>90) 04/19/17 04:40 Est GFR (Non-Af Amer) > 60.0 ml/min 04/19/17 04:40 BUN/Creatinine Ratio 21.5 04/19/17 04:40 Glucose 154 mg/dL (70-105) H 04/19/17 04:40 POC Glucose 169 MG/DL (70 - 105) H 04/19/17 17:27 Whole Bld Lactic Acid 1.53 mmol/L (0.60-1.99) 04/14/17 14:55 Calcium 8.0 mg/dL (8.6-10.3) L 04/19/17 04:40 Phosphorus 2.4 mg/dL (2.5-5.0) L 04/19/17 04:40 Magnesium 1.8 mg/dL (1.9-2.7) L 04/19/17 04:40 Total Bilirubin 1.1 mg/dL (0.3-1.0) H 04/19/17 04:40 AST 49 U/L (13-39) H 04/19/17 04:40 ALT 24 U/L (7-52) 04/19/17 04:40 Alkaline Phosphatase 58 U/L (34-104) 04/19/17 04:40 Creatine Kinase 136 U/L (30-223) 04/14/17 14:55 Troponin I 0.01 ng/mL (0.01-0.05) 04/16/17 04:56 B-Natriuretic Peptide 85.5 pg/mL (5.0-100.0) 04/14/17 14:55 Total Protein 5.4 gm/dL (6.0-8.3) L 04/19/17 04:40 Albumin 2.1 gm/dL (4.2-5.5) L 04/19/17 04:40 Globulin 3.3 gm/dL 04/19/17 04:40 Albumin/Globulin Ratio 0.6 (1.0-1.8) L 04/19/17 04:40 Prealbumin 5 mg/dL (10-36) L 04/17/17 05:14 Triglycerides 238 mg/dL (<150) H 04/19/17 04:40 Cholesterol 80 mg/dL (<200) 04/19/17 04:40 LDL Cholesterol Direct 38 mg/dL (75-193) L 04/14/17 14:55 HDL Cholesterol 13 mg/dL (23-92) L 04/14/17 14:55 Amylase 31 U/L (29-103) 04/14/17 14:55 Lipase 15 U/L (11-82) 04/14/17 14:55 Urine Source CLEAN C 04/14/17 15:05 Urine Color ORANGE 04/14/17 15:05 Urine Clarity SLIGHT HAZY (CLEAR) 04/14/17 15:05 Urine pH 5.5 04/14/17 15:05 Ur Specific [place] 1.020 (1.005-1.030) 04/14/17 15:05 Urine Protein 100 mg/dL (NEGATIVE) H 04/14/17 15:05 Urine Glucose (UA) NEGATIVE mg/dL (NEGATIVE) 04/14/17 15:05 Urine Ketones 15 mg/dL (NEGATIVE) H 04/14/17 15:05 Urine Blood SMALL (NEGATIVE) H 04/14/17 15:05 Urine Nitrate NEGATIVE (NEGATIVE) 04/14/17 15:05 Urine Bilirubin SMALL (NEGATIVE) H 04/14/17 15:05 Urine Urobilinogen 1.0 E.U./dL (0.2 - 1.0) 04/14/17 15:05 Ur Leukocyte Esterase NEGATIVE (NEGATIVE) 04/14/17 15:05 Urine RBC 2-5 /hpf (0-5) H 04/14/17 15:05 Urine WBC 0-2 /hpf (0-5) 04/14/17 15:05 Ur Epithelial Cells OCCASIONAL /lpf (FEW) 04/14/17 15:05 Amorphous Sediment MANY URATES (NONE SEEN) 04/14/17 15:05 Urine Bacteria 1+ /hpf (NONE SEEN) H 04/14/17 15:05 Vancomycin Trough 13.5 ug/mL (10-20) 04/19/17 19:20 Blood Type O POSITIVE 04/14/17 20:36 Antibody Screen NEGATIVE 04/14/17 20:36 - Physical Exam Vitals and I&O: Vital Signs Temp 100.7 F 04/19/17 19:00 Pulse 114 04/19/17 20:01 Resp 23 04/19/17 20:01 BP 149/71 04/19/17 19:00 Pulse Ox 100 04/19/17 20:01 Intake & Output 04/19/17 04/19/17 04/20/17 06:59 18:59 06:59 Intake Total 550 3590.0 100 Output Total 1750 1860 Balance -1200 1730.0 100 Weight (lbs) 109.401 kg 109.633 kg 109.633 kg Intake: Intake, IV Amount 550 2510.0 100 Fluconazole 200mg/100mL 100 200 mg In 100 ml @ 100 mls/hr IV Q24HR [facility] Rx#: [id number] Multivitamin Inj 10 ml In 2160 Amino Acids 4.25% /Dext 10% 2,000 ml In Intralipids 20% 150 ml @ 90 mls/hr IV .Q24H [facility] Rx #:[id number] Piperacillin Sodium/ 200 100 100 Tazobact 4.5 gm In Sodium Chloride 0.9% 100 ml @ 100 mls/hr IV Q6HR [facility] Rx #:[id number] Vancomycin HCl 1 gm In 250 250.0 Sodium Chloride 0.9% 250 ml @ 165 mls/hr IV Q24HR@ 799,1999 [facility] Rx#: [id number] TPN/PPN 1080 Output: Gastric Drainage 100 300 Drainage 50 60 Right Lower Abdomen 50 60 Urine 1550 1500 Other 50 Other: Stool Characteristics Liquid Liquid Brown Brown Bloody Bloody Active Medications: Current Medications Albuterol/Ipratropium (Duoneb Neb) 3 ml HHN Q4HRT [facility] Stop: 06/15/17 14:59 Last Admin: 04/19/17 20:00 Dose: 3 ml Budesonide (Pulmicort) 0.5 mg HHN BIDRT [facility] Stop: 06/15/17 18:59 Last Admin: 04/19/17 20:00 Dose: 0.5 mg Hydromorphone HCl (Dilaudid) 1 mg IVP Q4HR PRN PRN Reason: Pain (Severe) Stop: 06/13/17 20:22 Last Admin: 04/19/17 17:00 Dose: 1 mg Piperacillin Sod/Tazobactam (Sod 4.5 gm/ Sodium Chloride) 100 mls @ 100 mls/hr IV Q6HR [facility] Stop: 06/14/17 00:00 Last Infusion: 04/19/17 19:00 Dose: Infused Sodium Chloride (Nacl 0.9%) 500 mls @ 10 mls/hr IV .Q24H [facility] Stop: 06/15/17 15:59 Last Admin: 04/18/17 16:23 Dose: 10 mls/hr Fluconazole (Diflucan) 200 mg in 100 mls @ 100 mls/hr IV Q24HR [facility] Stop: 06/15/17 22:59 Last Infusion: 04/19/17 00:40 Dose: Infused Vancomycin HCl 1 gm/ Sodium (Chloride) 250 mls @ 165 mls/hr IV Q24HR@799,1999 [facility] Stop: 06/17/17 19:59 Last Infusion: 04/19/17 09:35 Dose: Infused Multivitamins/Minerals 10 ml/Amino Acids/ Fat Emulsion Intravenous 2,160 mls @ 90 mls/hr IV .Q24H [facility] Stop: 06/17/17 15:59 Last Admin: 04/19/17 16:00 Dose: 90 mls/hr Insulin Aspart (Novolog Insulin Sliding Scale) 0 units SUBQ Q6HR [facility] PRN Reason: Protocol Stop: 06/16/17 17:59 Last Admin: 04/19/17 17:40 Dose: Not Given Lactobacillus Rhamnosus (Culturelle) 1 each PO DAILY [facility] Stop: 06/15/17 08:59 Last Admin: 04/19/17 09:04 Dose: 1 each Lorazepam (Ativan) 1 mg IVP Q4HR PRN; Protocol PRN Reason: AGITATION Stop: 06/17/17 13:27 Last Admin: 04/19/17 10:20 Dose: 1 mg Miscellaneous (Probiotic Screen) 1 ea PRN PRN PRN Reason: PROTOCOL Stop: 06/14/17 09:39 Miscellaneous (Vancomycin Iv Per Pharmacy) 1 ea MC PRN [facility] Stop: 06/14/17 12:44 Miscellaneous (Clinical Monitoring) 1 ea MC DAILY PRN PRN Reason: RENAL Stop: 06/15/17 12:48 Miscellaneous (Tpn Per Pharmacy) 1 ea PRN PRN PRN Reason: PROTOCOL Stop: 06/16/17 12:28 Morphine Sulfate (Morphine) 4 mg IVP Q2HR PRN PRN Reason: Pain (Moderate) Stop: 06/15/17 10:53 Last Admin: 04/19/17 11:40 Dose: 4 mg Ondansetron HCl (Zofran) 4 mg IVP Q6H PRN PRN Reason: Nausea / Vomiting Stop: 06/13/17 20:08 Pantoprazole Sodium (Protonix) 40 mg IVP DAILY [facility] Stop: 06/15/17 08:59 Last Admin: 04/19/17 09:04 Dose: 40 mg General: Alert, Oriented x3, Cooperative HEENT: Atraumatic, PERRLA, EOMI, Mucous membr. moist/pink, Other (oral endotracheal tube.) Neck: Supple, +2 carotid pulse wo bruit Cardiovascular: Regular rate, Normal S1, Normal S2 Lungs: Other (diffuse rhonchi.) Abdomen: Soft, Distended, Other (left colostomy bag with the serosanguineous discharge. ROLANDO drain right side.) Extremities: Other (peripheral pulses are +2) Neurological: Normal speech Psych/Mental Status: Mood NL - Procedures Procedures: Procedures Procedure Code Date BYPASS SIGMOID COLON TO CUTANEOUS, OPEN APPROACH [id number] 04/14/17 PARTIAL REMOVAL OF COLON 97796 04/14/17 RESECTION OF SIGMOID COLON, OPEN APPROACH [id number] 04/14/17 RESPIRATORY VENTILATION, LESS THAN 24 CONSECUTIVE HOURS [id number] 04/14/17 VENT MGMT INPAT INIT DAY 19817 04/14/17 Assessment/Plan - Problem List Patient Problems: All Active Problems Abscess of sigmoid colon due to diverticulitis (Acute) K57.20 Diverticulitis of sigmoid colon (Acute) K57.32 Obesity (Acute) E66.9 Perforation of sigmoid colon due to diverticulitis (Acute) K57.20 Peritonitis (acute) generalized (Acute) K65.0 - Assessment Assessment: POD#5; s/p ex lap, sigmoid colectomy, drainage of peritonitis, lysis adhesions , ROLANDO drain placement / obtunded, agitated, restless pulmonary consulted and f/u appreciated, resp guarded continue IVfluids fever + leukocytosis downtrending/ tachycardia; continue IV abx..... plan for CT abd/pelvis tomorrow am. TPNutritional support ROLANDO drain expected output adequate urine output; BUN/Creat downtrending, renal f/u dvt prophylaxis Lovenox SQ supportive care.... s/w family guarded prognosis. colostomy intact, mildly dusky mucosa. Nutritional Asmnt/Malnutr-PDOC - Dietary Evaluation Malnutrition Findings (Please click <Entered> for more info): Nutritional Asmnt/Malnutrition Start: 04/19/17 14: 21 Text: Status: Complete Freq: Document 04/19/17 14:21 GSUN (Rec: 04/19/17 14:58 [id number]) Nutritional Asmnt/Malnutrition Patient General Information Nutritional Screening Moderate Risk Screening Diagnosis Sepsis, diverticulitis, peritonitis Pertinent Medical Hx/Surgical Hx Asthma, diverticulosis Subjective Information 56 year old male frome home. Pt was restless, moving extremities during visit. 04/14 : sigmoid colectomy, end colostomy, abscess drainage, diffuse peritontis. 04/16: pt started PPN. 04/17: central line and started on TPN. Spoke to family at bedside, explained parenteral nutrition , family undersoto and has no further question at this time. Weight discrepancies noted in EMR, family does not know UBW , estimated nutritional needs based Current Diet Order/ Nutrition Support TPN D10% AA4.25% at 90ml/hr with IL20% 150ml, providing 1401.6kcal Pertinent Medications Dilaudid, Novolog, Culturelle, Magnesium Sulfate, Vancomycin , TPN, Morphine, Multivitamins , Zofran, Protonix, Nacl0.9% Pertinent Labs 04/14: triglycerides 106, total bilirubin 1.1H, glucose 116H 04/17: magnesium 2.5, phsophorus 3.2 04/19: magnesium 1.8L, phosphorus 2.4L, BUN 28H, creatinine 1.3, glucose 154H, total bilirubin 1.1H, triglycerides 238H Nutritional Hx/Data Height 1.7 m Height (Calculated Centimeters) 170.2 Current Weight (lbs) 95.254 kg Weight (Calculated Kilograms) 95.3 Weight (Calculated Grams) 72175.4 [place] Body Weight 148 Weight Status Overweight GI Symptoms Skin Integrity/Comment: [place] 14. Facial non-pitting 1+, bilateral hands pitting 1+ Estimated Nutritional Goals Calories/Kcals/Kg IBW 148/67.3kg Kcals Calculated 2019-2356kcal (30-35kcal/kg) Protein Calculated 101-135g (1.5-2g/kg) Fluid: ml Per MD Nutritional Problem 1. Problem Problem Altered GI function related to Etiology abscess and perforation of sigmoid colon due to diverticulitis aeb Signs/Symptoms: post-operative, on TPN Intervention/Recommendation Comments 1. Recommend TPN D15% AA5.5% at 100ml/hr with IL20% 150ml, providing 2400ml total volume, 2052kcal, 132g protein, meeting 100% of estimated nutritional needs. Carb load 2 .6mg/kg/min (using 210lb adm weight). 2. Monitor for possible refeeding syndrome, 04/18: phsophorus 2.1L, 7/17: magnesium 1.9. 3. Monitor triglycerides, total bilirubin, glucose, renal labs. Expected Outcomes/Goals Expected Outcomes/Goals 1. Pt to meet 100% of estimated nutritional needs on TPN.
[2017-04-19] MEDS: Fluconazole 200mg/100mL 200 MG/100 ML BAG IV SCH (23:00)
[2017-04-20] MEDS: Morphine Sulfate 4 mg/mL 1mL Syr IVP PRN ×3 (00:46→20:30)
[2017-04-20] MEDS: Albuterol/Ipratropium Neb 3 ML AERS HHN SCH ×5 (03:08→22:12)
[2017-04-20] MEDS: HYDROmorphone 1 mg/mL 1mL Syr IVP PRN ×2 (03:44→23:23)
[2017-04-20 07:37] LABS: % BASOPHILS 0.4 % (0.0-2.0); % EOSINOPHILS 1.7 % (0.0-5.0); % LYMPHOCYTES 9.6 % (20.0-50.0); % MONOCYTES 3.8 % (2.0-10.0); % NEUTROPHILS 84.5 % (40.0-80.0); HEMATOCRIT 26.3 % (39.0-49.0); HEMOGLOBIN 8.5 gm/dL (13.2-17.3); MEAN CELL VOLUME 82.4 fl (80-99); MEAN CORPUSCULAR HEMOGLOBIN 26.8 pg (26.0-30.0); MEAN CORPUSCULAR HGB CONC 32.5 pg (28.0-36.0); MEAN PLATELET VOLUME 7.5 fl; NEUTROPHILE ABSOLUTE 10.3 Th/cmm (1.8-8.0); PLATELET COUNT 595 Th/cmm (150-400); RED BLOOD COUNT 3.19 Mil/cmm (4.30-5.70); RED CELL DISTRIBUTION WIDTH 15.4 % (11.5-20.0); WHITE BLOOD COUNT 12.2 Th/cmm (4.8-10.8)
[2017-04-20] MEDS: Budesonide 0.5 Mg/2 mL Ud HHN SCH ×2 (07:42→19:31)
[2017-04-20 08:00] LABS: ALB/GLOB RATIO 0.6 (1.0-1.8); ALKALINE PHOSPHATASE 58 U/L (34-104); ANION GAP 7.3 (7.0-16.0); BILIRUBIN,TOTAL 0.9 mg/dL (0.3-1.0); BUN - UREA NITROGEN 22 mg/dL (7-25); BUN/CREATININE RATIO 16.9; CALCIUM SERUM 8.3 mg/dL (8.6-10.3); CARBON DIOXIDE 26.4 mEq/L (21.0-31.0); CHLORIDE 114 mEq/L (98-107); CREATININE - SERUM 1.3 mg/dL (0.7-1.3); GLUCOSE 142 mg/dL (70-105); MAGNESIUM 2.1 mg/dL (1.9-2.7); PHOSPHOROUS 2.9 mg/dL (2.5-5.0); POTASSIUM SERUM 3.7 mEq/L (3.5-5.1); SGOT 31 U/L (13-39); SGPT/ALT 20 U/L (7-52); SODIUM SERUM 144 mEq/L (136-145)
[2017-04-20] MEDS ORDERED: Hydrocortisone Sodium Succ 100 mg Vial IVP ONE (09:07)
[2017-04-20] MEDS: Lactobacillus Rhamnosus 10 Billion CFU Capsule PO SCH (09:08)
--- NOTE | 2017-04-20 09:13 | General Progress Note ---
Subjective - Review of Systems Subjective: Patient is seen and examined. Patient is very tender on his left wrist and mild lid tender in the right wrist. As per patient's daughter patient has referred to see surgeon for his wrist questionable for gout. Patient is extubated yesterday still has NG tube. Patient is scheduled to have a CT scan of the abdomen and pelvis. I did review patient's x-ray findings with the nurse and daughter, we will pursue orthopedic evaluation. One dose of Solu-Cortef. And check uric acid. Objective - Results Result Diagrams: 04/20/17 07:00 04/20/17 07:00 Recent Labs: Laboratory Last Values WBC 12.2 Th/cmm (4.8-10.8) H 04/20/17 07:00 RBC 3.19 Mil/cmm (4.30-5.70) L 04/20/17 07:00 Hgb 8.5 gm/dL (13.2-17.3) L 04/20/17 07:00 Hct 26.3 % (39.0-49.0) L 04/20/17 07:00 MCV 82.4 fl (80-99) 04/20/17 07:00 MCH 26.8 pg (26.0-30.0) 04/20/17 07:00 MCHC Differential 32.5 pg (28.0-36.0) 04/20/17 07:00 RDW 15.4 % (11.5-20.0) 04/20/17 07:00 Plt Count 595 Th/cmm (150-400) H 04/20/17 07:00 MPV 7.5 fl 04/20/17 07:00 Neutrophils % 84.5 % (40.0-80.0) H 04/20/17 07:00 Band Neutrophils % 3 % (0-10) 04/19/17 04:40 Lymphocytes % 9.6 % (20.0-50.0) L 04/20/17 07:00 Monocytes % 3.8 % (2.0-10.0) 04/20/17 07:00 Eosinophils % 1.7 % (0.0-5.0) 04/20/17 07:00 Basophils % 0.4 % (0.0-2.0) 04/20/17 07:00 Neutrophils (Manual) 82 % (40-80) H 04/19/17 04:40 Lymphocytes 9 % (20-50) L 04/19/17 04:40 Monocytes 5 % (2-10) 04/19/17 04:40 Eosinophils 1 % (0-5) 04/19/17 04:40 Platelet Estimate INCREASED PLATELETS (NORMAL) 04/19/17 04:40 Platelet Morphology PLATELET CLUMPS SEEN (NORMAL) 04/19/17 04:40 PT 12.9 SECONDS (9.5-11.5) H 04/14/17 14:55 INR 1.23 (0.5-1.4) 04/14/17 14:55 PTT (Actin FS) 29.8 SECONDS (26.0-38.0) 04/14/17 14:55 Specimen Source Arterial 04/19/17 09:00 Sample Site Right Radial 04/19/17 09:00 pH 7.45 (7.35-7.45) 04/19/17 09:00 pCO2 39.0 mmHg (35.0-45.0) 04/19/17 09:00 pO2 127.0 mmHg (80.0-100.0) H 04/19/17 09:00 HCO3 27.3 mEq/L (20.0-26.0) H 04/19/17 09:00 Base Excess 3.0 mEq/L (-3.0-3.0) 04/19/17 09:00 O2 Saturation 99.0 % (92.0-100.0) 04/19/17 09:00 Chau Test YES 04/19/17 09:00 Vent Rate NA 04/19/17 09:00 Inspired O2 35 04/19/17 09:00 Tidal Volume NA 04/19/17 09:00 PEEP NA 04/19/17 09:00 Pressure (ins/psv/peep) NA 04/19/17 09:00 Critical Value SH 04/19/17 09:00 Sodium 144 mEq/L (136-145) 04/20/17 07:00 Potassium 3.7 mEq/L (3.5-5.1) 04/20/17 07:00 Chloride 114 mEq/L (98-107) H 04/20/17 07:00 Carbon Dioxide 26.4 mEq/L (21.0-31.0) 04/20/17 07:00 Anion Gap 7.3 (7.0-16.0) 04/20/17 07:00 BUN 22 mg/dL (7-25) 04/20/17 07:00 Creatinine 1.3 mg/dL (0.7-1.3) 04/20/17 07:00 Est GFR ( Amer) > 60.0 ml/min (>90) 04/20/17 07:00 Est GFR (Non-Af Amer) > 60.0 ml/min 04/20/17 07:00 BUN/Creatinine Ratio 16.9 04/20/17 07:00 Glucose 142 mg/dL (70-105) H 04/20/17 07:00 POC Glucose 148 MG/DL (70 - 105) H 04/20/17 06:34 Whole Bld Lactic Acid 1.53 mmol/L (0.60-1.99) 04/14/17 14:55 Calcium 8.3 mg/dL (8.6-10.3) L 04/20/17 07:00 Phosphorus 2.9 mg/dL (2.5-5.0) 04/20/17 07:00 Magnesium 2.1 mg/dL (1.9-2.7) 04/20/17 07:00 Total Bilirubin 0.9 mg/dL (0.3-1.0) 04/20/17 07:00 AST 31 U/L (13-39) 04/20/17 07:00 ALT 20 U/L (7-52) 04/20/17 07:00 Alkaline Phosphatase 58 U/L (34-104) 04/20/17 07:00 Creatine Kinase 136 U/L (30-223) 04/14/17 14:55 Troponin I 0.01 ng/mL (0.01-0.05) 04/16/17 04:56 B-Natriuretic Peptide 85.5 pg/mL (5.0-100.0) 04/14/17 14:55 Total Protein 5.9 gm/dL (6.0-8.3) L 04/20/17 07:00 Albumin 2.3 gm/dL (4.2-5.5) L 04/20/17 07:00 Globulin 3.6 gm/dL 04/20/17 07:00 Albumin/Globulin Ratio 0.6 (1.0-1.8) L 04/20/17 07:00 Prealbumin 5 mg/dL (10-36) L 04/17/17 05:14 Triglycerides 238 mg/dL (<150) H 04/19/17 04:40 Cholesterol 80 mg/dL (<200) 04/19/17 04:40 LDL Cholesterol Direct 38 mg/dL (75-193) L 04/14/17 14:55 HDL Cholesterol 13 mg/dL (23-92) L 04/14/17 14:55 Amylase 31 U/L (29-103) 04/14/17 14:55 Lipase 15 U/L (11-82) 04/14/17 14:55 Urine Source CLEAN C 04/14/17 15:05 Urine Color ORANGE 04/14/17 15:05 Urine Clarity SLIGHT HAZY (CLEAR) 04/14/17 15:05 Urine pH 5.5 04/14/17 15:05 Ur Specific [place] 1.020 (1.005-1.030) 04/14/17 15:05 Urine Protein 100 mg/dL (NEGATIVE) H 04/14/17 15:05 Urine Glucose (UA) NEGATIVE mg/dL (NEGATIVE) 04/14/17 15:05 Urine Ketones 15 mg/dL (NEGATIVE) H 04/14/17 15:05 Urine Blood SMALL (NEGATIVE) H 04/14/17 15:05 Urine Nitrate NEGATIVE (NEGATIVE) 04/14/17 15:05 Urine Bilirubin SMALL (NEGATIVE) H 04/14/17 15:05 Urine Urobilinogen 1.0 E.U./dL (0.2 - 1.0) 04/14/17 15:05 Ur Leukocyte Esterase NEGATIVE (NEGATIVE) 04/14/17 15:05 Urine RBC 2-5 /hpf (0-5) H 04/14/17 15:05 Urine WBC 0-2 /hpf (0-5) 04/14/17 15:05 Ur Epithelial Cells OCCASIONAL /lpf (FEW) 04/14/17 15:05 Amorphous Sediment MANY URATES (NONE SEEN) 04/14/17 15:05 Urine Bacteria 1+ /hpf (NONE SEEN) H 04/14/17 15:05 Vancomycin Trough 13.5 ug/mL (10-20) 04/19/17 19:20 Blood Type O POSITIVE 04/14/17 20:36 Antibody Screen NEGATIVE 04/14/17 20:36 - Physical Exam Vitals and I&O: Vital Signs Temp 99.3 F 04/20/17 07:00 Pulse 114 04/20/17 07:00 Resp 17 04/20/17 07:00 BP 148/79 04/20/17 07:00 Pulse Ox 100 04/20/17 07:00 Intake & Output 04/19/17 04/20/17 04/20/17 18:59 06:59 18:59 Intake Total 3590.0 450 Output Total 1860 60 Balance 1730.0 390 Weight (lbs) 109.633 kg 110.45 kg Intake: Intake, IV Amount 2510.0 450 Multivitamin Inj 10 ml In 2160 Amino Acids 4.25% /Dext 10% 2,000 ml In Intralipids 20% 150 ml @ 90 mls/hr IV .Q24H [facility] Rx #:[id number] Piperacillin Sodium/ 100 200 Tazobact 4.5 gm In Sodium Chloride 0.9% 100 ml @ 100 mls/hr IV Q6HR [facility] Rx #:[id number] Vancomycin HCl 1 gm In 250.0 250 Sodium Chloride 0.9% 250 ml @ 165 mls/hr IV Q24HR@ 0800,2000 [facility] Rx#: [id number] TPN/PPN 1080 Output: Gastric Drainage 300 Drainage 60 60 Right Lower Abdomen 60 60 Urine 1500 Other: Stool Characteristics Liquid Brown Bloody Active Medications: Current Medications Albuterol/Ipratropium (Duoneb Neb) 3 ml HHN Q4HRT [facility] Stop: 06/15/17 14:59 Last Admin: 04/20/17 07:42 Dose: 3 ml Budesonide (Pulmicort) 0.5 mg HHN BIDRT [facility] Stop: 06/15/17 18:59 Last Admin: 04/20/17 07:42 Dose: 0.5 mg Hydromorphone HCl (Dilaudid) 1 mg IVP Q4HR PRN PRN Reason: Pain (Severe) Stop: 06/13/17 20:22 Last Admin: 04/20/17 03:44 Dose: 1 mg Piperacillin Sod/Tazobactam (Sod 4.5 gm/ Sodium Chloride) 100 mls @ 100 mls/hr IV Q6HR [facility] Stop: 06/14/17 00:00 Last Admin: 04/20/17 06:00 Dose: 100 mls/hr Sodium Chloride (Nacl 0.9%) 500 mls @ 10 mls/hr IV .Q24H [facility] Stop: 06/15/17 15:59 Last Admin: 04/18/17 16:23 Dose: 10 mls/hr Fluconazole (Diflucan) 200 mg in 100 mls @ 100 mls/hr IV Q24HR [facility] Stop: 06/15/17 22:59 Last Admin: 04/19/17 23:00 Dose: 100 mls/hr Vancomycin HCl 1 gm/ Sodium (Chloride) 250 mls @ 165 mls/hr IV Q24HR@0800,2000 [facility] Stop: 06/17/17 19:59 Last Admin: 04/20/17 09:06 Dose: 165 mls/hr Multivitamins/Minerals 10 ml/Amino Acids/ Fat Emulsion Intravenous 2,160 mls @ 90 mls/hr IV .Q24H [facility] Stop: 06/17/17 15:59 Last Admin: 04/19/17 16:00 Dose: 90 mls/hr Insulin Aspart (Novolog Insulin Sliding Scale) 0 units SUBQ Q6HR [facility] PRN Reason: Protocol Stop: 06/16/17 17:59 Last Admin: 04/20/17 00:00 Dose: Not Given Lactobacillus Rhamnosus (Culturelle) 1 each PO DAILY [facility] Stop: 06/15/17 08:59 Last Admin: 04/20/17 09:08 Dose: 1 each Lorazepam (Ativan) 1 mg IVP Q4HR PRN; Protocol PRN Reason: AGITATION Stop: 06/17/17 13:27 Last Admin: 04/19/17 10:20 Dose: 1 mg Miscellaneous (Probiotic Screen) 1 ea MC PRN PRN PRN Reason: PROTOCOL Stop: 06/14/17 09:39 Miscellaneous (Vancomycin Iv Per Pharmacy) 1 ea MC PRN [facility] Stop: 06/14/17 12:44 Miscellaneous (Clinical Monitoring) 1 ea MC DAILY PRN PRN Reason: RENAL Stop: 06/15/17 12:48 Miscellaneous (Tpn Per Pharmacy) 1 ea MC PRN PRN PRN Reason: PROTOCOL Stop: 06/16/17 12:28 Morphine Sulfate (Morphine) 4 mg IVP Q2HR PRN PRN Reason: Pain (Moderate) Stop: 06/15/17 10:53 Last Admin: 04/20/17 00:46 Dose: 4 mg Ondansetron HCl (Zofran) 4 mg IVP Q6H PRN PRN Reason: Nausea / Vomiting Stop: 06/13/17 20:08 Pantoprazole Sodium (Protonix) 40 mg IVP DAILY [facility] Stop: 06/15/17 08:59 Last Admin: 04/20/17 09:08 Dose: 40 mg General: Alert, Oriented x3, Cooperative HEENT: Atraumatic, PERRLA, EOMI, Mucous membr. moist/pink, Other (oral endotracheal tube.) Neck: Supple, +2 carotid pulse wo bruit Cardiovascular: Regular rate, Normal S1, Normal S2 Lungs: Other (diffuse rhonchi.) Abdomen: Soft, Distended, Other (left colostomy bag with the serosanguineous discharge. ROLANDO drain right side.) Extremities: Other (peripheral pulses are +2, extremely tender left wrist, slight increased warmth, right wrist no pain with flexion and extension.) Neurological: Normal speech Psych/Mental Status: Mood NL - Procedures Procedures: Procedures Procedure Code Date BYPASS SIGMOID COLON TO CUTANEOUS, OPEN APPROACH [id number] 04/14/17 PARTIAL REMOVAL OF COLON 67647 04/14/17 RESECTION OF SIGMOID COLON, OPEN APPROACH [id number] 04/14/17 RESPIRATORY VENTILATION, LESS THAN 24 CONSECUTIVE HOURS [id number] 04/14/17 VENT MGMT INPAT INIT DAY 64085 04/14/17 Assessment/Plan - Problem List Patient Problems: All Active Problems Abscess of sigmoid colon due to diverticulitis (Acute) K57.20 Diverticulitis of sigmoid colon (Acute) K57.32 Obesity (Acute) E66.9 Perforation of sigmoid colon due to diverticulitis (Acute) K57.20 Peritonitis (acute) generalized (Acute) K65.0 - Assessment Assessment: Current Active Problems Problem Status Onset Abscess of sigmoid colon due to diverticulitis Acute Diverticulitis of sigmoid colon Acute Obesity Acute Perforation of sigmoid colon due to diverticulitis Acute Peritonitis (acute) generalized Acute Perforated sigmoid diverticulitis status post exploratory laparotomy and sigmoid colectomy intra-abdominal abscess drainage lysis of pleural Ada procedure and colostomy. Postoperative respiratory failure improving. Obesity Asthma Recurrent fever. Bilateral wrist swelling and pain with abnormal x-rays needs orthopedic evaluation. Ruled out acute gout. Increasing agitation at times. Bleeding from NG tube side most likely is due to Lovenox. ICU status Leukocytosis secondary to infection Postop anemia. - Plan Plan: Postoperative care as per Dr. carty. ID consult and follow-up. IV antibiotic. Oxygen, nebulizer treatment. TPN. Full code. Orthopedic consult. Solu-Cortef 50 mg IV 1. Check uric acid. Pulmonary follow-up. GI and DVT prophylaxis. Follow-up lab. Follow up on forestry consultant recommendations. Care plan reviewed and discussed with patient's RN and family. All questions answered. Symptoms management. Medication management. Nutritional Asmnt/Malnutr-PDOC - Dietary Evaluation Malnutrition Findings (Please click <Entered> for more info): Nutritional Asmnt/Malnutrition Start: 04/19/17 14: 21 Text: Status: Complete Freq: Document 04/19/17 14:21 GSUN (Rec: 04/19/17 14:58 [id number]) Nutritional Asmnt/Malnutrition Patient General Information Nutritional Screening Moderate Risk Screening Diagnosis Sepsis, diverticulitis, peritonitis Pertinent Medical Hx/Surgical Hx Asthma, diverticulosis Subjective Information 56 year old male frome home. Pt was restless, moving extremities during visit. 04/14 : sigmoid colectomy, end colostomy, abscess drainage, diffuse peritontis. 04/16: pt started PPN. 04/17: central line and started on TPN. Spoke to family at bedside, explained parenteral nutrition , family undersoto and has no further question at this time. Weight discrepancies noted in EMR, family does not know UBW , estimated nutritional needs based Current Diet Order/ Nutrition Support TPN D10% AA4.25% at 90ml/hr with IL20% 150ml, providing 1401.6kcal Pertinent Medications Dilaudid, Novolog, Culturelle, Magnesium Sulfate, Vancomycin , TPN, Morphine, Multivitamins , Zofran, Protonix, Nacl0.9% Pertinent Labs 04/14: triglycerides 106, total bilirubin 1.1H, glucose 116H 04/17: magnesium 2.5, phsophorus 3.2 04/19: magnesium 1.8L, phosphorus 2.4L, BUN 28H, creatinine 1.3, glucose 154H, total bilirubin 1.1H, triglycerides 238H Nutritional Hx/Data Height 1.7 m Height (Calculated Centimeters) 170.2 Current Weight (lbs) 95.254 kg Weight (Calculated Kilograms) 95.3 Weight (Calculated Grams) 31151.4 Avery Body Weight 148 Weight Status Overweight GI Symptoms Skin Integrity/Comment: [place] 14. Facial non-pitting 1+, bilateral hands pitting 1+ Estimated Nutritional Goals Calories/Kcals/Kg IBW 148/67.3kg Kcals Calculated 2018-2356kcal (30-35kcal/kg) Protein Calculated 101-135g (1.5-2g/kg) Fluid: ml Per MD Nutritional Problem 1. Problem Problem Altered GI function related to Etiology abscess and perforation of sigmoid colon due to diverticulitis aeb Signs/Symptoms: post-operative, on TPN Intervention/Recommendation Comments 1. Recommend TPN D15% AA5.5% at 100ml/hr with IL20% 150ml, providing 2400ml total volume, 2052kcal, 132g protein, meeting 100% of estimated nutritional needs. Carb load 2 .6mg/kg/min (using 210lb adm weight). 2. Monitor for possible refeeding syndrome, 04/18: phsophorus 2.1L, 04/19: magnesium 1.9. 3. Monitor triglycerides, total bilirubin, glucose, renal labs. Expected Outcomes/Goals Expected Outcomes/Goals 1. Pt to meet 100% of estimated nutritional needs on TPN.
--- NOTE | 2017-04-20 10:47 | Diagnostic Imaging Report ---
Portable chest x-ray HISTORY: Shortness of breath Compared to prior exam of April 19, 2017, the heart is enlarged. No focal pulmonary processes. No change in nasogastric tube positioning or vascular catheter placement. IMPRESSION: 1. No acute focal pulmonary processes 2. Cardiomegaly
--- NOTE | 2017-04-20 11:41 | Diagnostic Imaging Report ---
Radionuclide 3 phase bone scan left wrist HISTORY: Osteomyelitis 26.1 mCi technetium MDP used in the exam. Initial perfusion/blood flow images and subsequent blood pool and delayed images were obtained. Initial perfusion images demonstrate mild increased activity about the left wrist. Blood pole images demonstrate heterogeneous increased activity within the soft tissues of the left wrist. Delayed images demonstrate pronounced increased activity throughout the carpal region. IMPRESSION: 1. Marked abnormal increased activity throughout the left wrist region particularly on delayed images. Findings correspond to extensive destructive bony changes noted on earlier plain radiographs of April 19, 2017. Inflammatory process including septic arthritis cannot be excluded. Clinical correlation needed.
--- NOTE | 2017-04-20 11:45 | Diagnostic Imaging Report ---
CT scan abdomen and pelvis without intravenous contrast HISTORY: Fever, sepsis, postoperative Total DLP equals 859 CTDI equals 16.7 Axial sections were obtained from the xiphoid process down to the pubic symphysis. The exam is compared with prior study April 14, 2017. Limited sections through the lower chest demonstrated small right pleural effusion and nonspecific parenchymal changes within both lung bases. A nasogastric tube extends into the stomach. The liver exhibits a homogeneous parenchyma. No focal lesions. The spleen appears normal. No abnormality seen in the region of the pancreas. No focal renal lesions are seen. Again noted is perinephric stranding unchanged. The exam of the pelvis demonstrates a surgical drain. Decrease in previously noted extensive abnormal changes within the lower abdomen adjacent to the descending and sigmoid colon. Poor delineation of the bowel wall margins. Ostomy noted over the left lower abdomen. Mild pericolonic stranding along with surgical changes noted within the sigmoid area. No significant free fluid in the pelvis. IMPRESSION: 1. Surgical changes since the prior exam of April 14, 2017 along with persistent yet diminished abnormal findings in the left lower abdomen/pelvis involving the descending and sigmoid colon. No discrete abnormal loculated fluid collections seen at this time.
[2017-04-20 12:29] LABS: ABG SOURCE Arterial; BE(B) 2.9 mEq/L (-3.0-3.0); FIO2 32; HCO3 27.2 mEq/L (20.0-26.0); pH 7.51 (7.35-7.45)
[2017-04-20 12:30] LABS: CRITICAL VALUES REPORTED BY PW
[2017-04-20] MEDS: INSULIN ASPART SLIDING SCALE 100 UNITS/ML UNIT SUBQ SCH ×3 (13:50→18:42)
[2017-04-20] MEDS: TPN 10%-70% CUSTOM IV SCH (16:00)
[2017-04-20] MEDS: Fluconazole 200mg/100mL 200 MG/100 ML BAG IV SCH (23:00)
--- NOTE | 2017-04-20 23:55 | Admit Criteria Form ---
Admit Criteria Forms - Admit Criteria Diagnosis: ABDOMINAL PAIN Clinical Indications for Admission to Inpatient Care (Place 'X' for any and all applicable criteria): Admission is indicated for ANY ONE of the following(1)(2)(3)(4)(5): [ ]I. Inpatient admission required rather than observation care (Also use Abdominal Pain: Observation Care, as appropriate) because of ANY ONE of the following: [ ]a) Severe pain requiring acute inpatient management [ ]b) Identification of etiology/finding that requires inpatient care (eg, aortic dissection, free air) [ ]c) Absent bowel sounds with complete ileus(6) [ ]d) Suspected toxic megacolon [ ]e) Severe electrolyte abnormalities requiring inpatient care [ ]f) High fever or infection requiring inpatient admission as indicated by ANY ONE of following(7)(8): [ ] i) Appropriate outpatient or observational care antimicrobial treatment unavailable, not effective, or not feasible [ ] ii) Documented bacteremia [ ] iii) Temperature > 104.9 degrees F (oral) [ ] iv) T >103.1 F (oral) or < 96.8 F(rectal) that does not respond to all emergency treatment measures [ ]g) Signs of intestinal obstruction [B] [ ]h) Hemodynamic instability [ ]i) IV fluid to replace significant ongoing losses (greater than 3 L/m2 per day) (12)(13) [ ]j) Percutaneous or open drainage (eg, abscess, biliary tract ) procedures [ ]k) Parenteral nutrition regimen that must be implemented on inpatient basis [ ]l) Other condition,treatment or monitoring requiring inpatient admission. [ ]II. Peritoneal signs present [X ]III. Surgery needed that cannot be performed on an ambulatory basis. [ ]IV. Evaluation requires patient to not eat or drink for extended period ( eg, more than 24 hours). [ ]V. Contraindications and/or Inappropriate clinical situations for Observational Care in patients with abdominal pain, when ANY ONE of the following is required: [ ]a) Thorough evaluation is required to prevent catastrophic events due to delays in diagnosing (e.g.Mesenteric ischemia) 1,3 [ ]b) Patient with severe pathology or with chronic symptoms unlikely to improve in the ED stay (3) [X ]. General contraindications and/or Inappropriate clinical situations for Observational Care in patients with abdominal pain, when ANY ONE of the following is required: [ X]a) Prediction of prolongation of LOS based on ANY ONE of the following may be considered as a contraindication for observational care 2, 3, 4, 5, 6, 7, 8, 9, 10, 11 [ ]i) Age > 65 yrs. [ ]ii) Patient arriving by ambulance [ ]iii) Patient with high acuity [X ]iv) Patient requiring vital sign monitoring [ ]v) Patient on IV medication [ ]b) Systolic blood pressures 180mmHg 3,12 [ ]c) Patient with altered mental status including delirium and other alteration of consciousness, (3) [ ]d) Patient whose discharge disposition will be to a prison home or rehabilitation home should not be managed in Emergency Department Observation Unit. CMS rule requires 3 days hospital stay before such placement.3,13 [ ]e) Patient with failure to thrive due to broad array of etiologies 3,16,17 [ ]f) Inability to ambulate 3,14 Extended stay beyond goal length of stay may be needed for(2)(3): [ ]a) Persistent abdominal pain with suspected intra-abdominal process [ ]b) Diagnosed condition requiring continued stay (e.g., pancreatitis, complicated diverticulitis) [ ]c) Surgery (e.g., colectomy) The original [employer] content created by [employer] has been revised. The portions of the content which have been revised are identified through the use of italic text or in bold, and [facility] has neither reviewed nor approved the modified material.All other unmodified content is copyright [facility]. Please see references footnoted in the original [facility] edition 2016 Admit Criteria Met?: Yes
[2017-04-21] MEDS: INSULIN ASPART SLIDING SCALE 100 UNITS/ML UNIT SUBQ SCH ×4 (00:38→18:02)
[2017-04-21] MEDS: Morphine Sulfate 4 mg/mL 1mL Syr IVP PRN (01:24)
[2017-04-21 05:44] LABS: MAGNESIUM 1.9 mg/dL (1.9-2.7); PHOSPHOROUS 2.3 mg/dL (2.5-5.0)
[2017-04-21] MEDS: Albuterol/Ipratropium Neb 3 ML AERS HHN SCH ×5 (07:54→23:54)
[2017-04-21] MEDS: Budesonide 0.5 Mg/2 mL Ud HHN SCH (07:54)
[2017-04-21 08:11] LABS: BUN - UREA NITROGEN 22 mg/dL (7-25); BUN/CREATININE RATIO 16.9; CALCIUM SERUM 8.2 mg/dL (8.6-10.3); CARBON DIOXIDE 23.3 mEq/L (21.0-31.0); CHLORIDE 118 mEq/L (98-107); CREATININE - SERUM 1.3 mg/dL (0.7-1.3); GLUCOSE 135 mg/dL (70-105); POTASSIUM SERUM 3.3 mEq/L (3.5-5.1); SODIUM SERUM 148 mEq/L (136-145)
[2017-04-21] MEDS: Lactobacillus Rhamnosus 10 Billion CFU Capsule PO SCH (08:56)
[2017-04-21] MEDS ORDERED: Potassium Phosphate 20 MMOLE in Sodium Chloride 0.9% 250 ML IV ONE (09:00)
[2017-04-21] MEDS: HYDROmorphone 1 mg/mL 1mL Syr IVP PRN ×2 (10:51→15:27)
--- NOTE | 2017-04-21 10:59 | General Progress Note ---
Subjective - Review of Systems Subjective: Patient is seen and examined. Patient is agitated at time. Family is at bedside. Discussed with the staff regarding care plan. Patient has 24-hour sitter at bedside. Patient is trying to rule out central line as well as NG tube and Sen catheter. Bone scan and x-rays of the left wrist consistent with a distal to joints possibilities of charcoal joint. According to patient' s family he has been having problem with his left wrist for a while. He was advised to see a surgeon. CT scan of abdomen and pelvis report is reviewed and discussed with family. Objective - Results Result Diagrams: 04/20/17 07:00 04/21/17 04:34 Recent Labs: Laboratory Last Values WBC 12.2 Th/cmm (4.8-10.8) H 04/20/17 07:00 RBC 3.19 Mil/cmm (4.30-5.70) L 04/20/17 07:00 Hgb 8.5 gm/dL (13.2-17.3) L 04/20/17 07:00 Hct 26.3 % (39.0-49.0) L 04/20/17 07:00 MCV 82.4 fl (80-99) 04/20/17 07:00 MCH 26.8 pg (26.0-30.0) 04/20/17 07:00 MCHC Differential 32.5 pg (28.0-36.0) 04/20/17 07:00 RDW 15.4 % (11.5-20.0) 04/20/17 07:00 Plt Count 595 Th/cmm (150-400) H 04/20/17 07:00 MPV 7.5 fl 04/20/17 07:00 Neutrophils % 84.5 % (40.0-80.0) H 04/20/17 07:00 Band Neutrophils % 3 % (0-10) 04/19/17 04:40 Lymphocytes % 9.6 % (20.0-50.0) L 04/20/17 07:00 Monocytes % 3.8 % (2.0-10.0) 04/20/17 07:00 Eosinophils % 1.7 % (0.0-5.0) 04/20/17 07:00 Basophils % 0.4 % (0.0-2.0) 04/20/17 07:00 Neutrophils (Manual) 82 % (40-80) H 04/19/17 04:40 Lymphocytes 9 % (20-50) L 04/19/17 04:40 Monocytes 5 % (2-10) 04/19/17 04:40 Eosinophils 1 % (0-5) 04/19/17 04:40 Platelet Estimate INCREASED PLATELETS (NORMAL) 04/19/17 04:40 Platelet Morphology PLATELET CLUMPS SEEN (NORMAL) 04/19/17 04:40 ESR > 140 mm/hr (0-20) H 04/20/17 07:00 PT 12.9 SECONDS (9.5-11.5) H 04/14/17 14:55 INR 1.23 (0.5-1.4) 04/14/17 14:55 PTT (Actin FS) 29.8 SECONDS (26.0-38.0) 04/14/17 14:55 Specimen Source Arterial 04/20/17 12:13 Sample Site RB 04/20/17 12:13 pH 7.51 (7.35-7.45) H 04/20/17 12:13 pCO2 32.0 mmHg (35.0-45.0) L 04/20/17 12:13 pO2 116.0 mmHg (80.0-100.0) H 04/20/17 12:13 HCO3 27.2 mEq/L (20.0-26.0) H 04/20/17 12:13 Base Excess 2.9 mEq/L (-3.0-3.0) 04/20/17 12:13 O2 Saturation 99.0 % (92.0-100.0) 04/20/17 12:13 Chau Test YES 04/19/17 09:00 Vent Rate NA 04/19/17 09:00 Inspired O2 32 04/20/17 12:13 Tidal Volume NA 04/19/17 09:00 PEEP NA 04/19/17 09:00 Pressure (ins/psv/peep) NA 04/19/17 09:00 Critical Value PW 04/20/17 12:13 Sodium 148 mEq/L (136-145) H 04/21/17 04:34 Potassium 3.3 mEq/L (3.5-5.1) L 04/21/17 04:34 Chloride 118 mEq/L (98-107) H 04/21/17 04:34 Carbon Dioxide 23.3 mEq/L (21.0-31.0) 04/21/17 04:34 Anion Gap 10.0 (7.0-16.0) 04/21/17 04:34 BUN 22 mg/dL (7-25) 04/21/17 04:34 Creatinine 1.3 mg/dL (0.7-1.3) 04/21/17 04:34 Est GFR ( Amer) > 60.0 ml/min (>90) 04/21/17 04:34 Est GFR (Non-Af Amer) > 60.0 ml/min 04/21/17 04:34 BUN/Creatinine Ratio 16.9 04/21/17 04:34 Glucose 135 mg/dL (70-105) H 04/21/17 04:34 POC Glucose 147 MG/DL (70 - 105) H 04/21/17 05:39 Whole Bld Lactic Acid 1.53 mmol/L (0.60-1.99) 04/14/17 14:55 Uric Acid 3.6 mg/dL (4.4-7.6) L 04/20/17 07:00 Calcium 8.2 mg/dL (8.6-10.3) L 04/21/17 04:34 Phosphorus 2.3 mg/dL (2.5-5.0) L 04/21/17 04:34 Magnesium 1.9 mg/dL (1.9-2.7) 04/21/17 04:34 Total Bilirubin 0.9 mg/dL (0.3-1.0) 04/20/17 07:00 AST 31 U/L (13-39) 04/20/17 07:00 ALT 20 U/L (7-52) 04/20/17 07:00 Alkaline Phosphatase 58 U/L (34-104) 04/20/17 07:00 Creatine Kinase 136 U/L (30-223) 04/14/17 14:55 Troponin I 0.01 ng/mL (0.01-0.05) 04/16/17 04:56 C-Reactive Protein 28.9 mg/dL (0.0-0.9) H 04/20/17 07:00 B-Natriuretic Peptide 85.5 pg/mL (5.0-100.0) 04/14/17 14:55 Total Protein 5.9 gm/dL (6.0-8.3) L 04/20/17 07:00 Albumin 2.3 gm/dL (4.2-5.5) L 04/20/17 07:00 Globulin 3.6 gm/dL 04/20/17 07:00 Albumin/Globulin Ratio 0.6 (1.0-1.8) L 04/20/17 07:00 Prealbumin 8 mg/dL (10-36) L 04/19/17 19:20 Triglycerides 238 mg/dL (<150) H 04/19/17 04:40 Cholesterol 80 mg/dL (<200) 04/19/17 04:40 LDL Cholesterol Direct 38 mg/dL (75-193) L 04/14/17 14:55 HDL Cholesterol 13 mg/dL (23-92) L 04/14/17 14:55 Amylase 31 U/L (29-103) 04/14/17 14:55 Lipase 15 U/L (11-82) 04/14/17 14:55 Urine Source CLEAN C 04/14/17 15:05 Urine Color ORANGE 04/14/17 15:05 Urine Clarity SLIGHT HAZY (CLEAR) 04/14/17 15:05 Urine pH 5.5 04/14/17 15:05 Ur Specific [place] 1.020 (1.005-1.030) 04/14/17 15:05 Urine Protein 100 mg/dL (NEGATIVE) H 04/14/17 15:05 Urine Glucose (UA) NEGATIVE mg/dL (NEGATIVE) 04/14/17 15:05 Urine Ketones 15 mg/dL (NEGATIVE) H 04/14/17 15:05 Urine Blood SMALL (NEGATIVE) H 04/14/17 15:05 Urine Nitrate NEGATIVE (NEGATIVE) 04/14/17 15:05 Urine Bilirubin SMALL (NEGATIVE) H 04/14/17 15:05 Urine Urobilinogen 1.0 E.U./dL (0.2 - 1.0) 04/14/17 15:05 Ur Leukocyte Esterase NEGATIVE (NEGATIVE) 04/14/17 15:05 Urine RBC 2-5 /hpf (0-5) H 04/14/17 15:05 Urine WBC 0-2 /hpf (0-5) 04/14/17 15:05 Ur Epithelial Cells OCCASIONAL /lpf (FEW) 04/14/17 15:05 Amorphous Sediment MANY URATES (NONE SEEN) 04/14/17 15:05 Urine Bacteria 1+ /hpf (NONE SEEN) H 04/14/17 15:05 Vancomycin Trough 13.5 ug/mL (10-20) 04/19/17 19:20 Blood Type O POSITIVE 04/14/17 20:36 Antibody Screen NEGATIVE 04/14/17 20:36 - Physical Exam Vitals and I&O: Vital Signs Temp 98.1 F 04/21/17 08:00 Pulse 113 04/21/17 08:00 Resp 21 04/21/17 08:00 BP 141/77 04/21/17 08:00 Pulse Ox 96 04/21/17 08:00 Intake & Output 04/20/17 04/21/17 04/21/17 18:59 06:59 18:59 Intake Total 1320 1780 Output Total 2385 1300 Balance -1065 480 Weight (lbs) 107.048 kg 101.469 kg 101.151 kg Intake: Intake, IV Amount 200 700 Piperacillin Sodium/ 200 200 Tazobact 4.5 gm In Sodium Chloride 0.9% 100 ml @ 100 mls/hr IV Q6HR COUNT INCLUDES THE [facility] Rx #:[id number] Vancomycin HCl 1 gm In 500 Sodium Chloride 0.9% 250 ml @ 165 mls/hr IV Q24HR@ 0800,2000 COUNT INCLUDES THE [facility] Rx#: [id number] TPN/PPN 1080 1080 Other 40 Output: Gastric Drainage 350 Drainage 135 Left Lower Abdomen 60 Right Lower Abdomen 75 Urine 1900 1300 Other: # Bowel Movements 0 Stool Characteristics Liquid Liquid Active Medications: Current Medications Albuterol/Ipratropium (Duoneb Neb) 3 ml HHN Q4HRT COUNT INCLUDES THE [facility] Stop: 06/15/17 14:59 Last Admin: 04/21/17 07:54 Dose: 3 ml Budesonide (Pulmicort) 0.5 mg HHN BIDRT COUNT INCLUDES THE [facility] Stop: 06/15/17 18:59 Last Admin: 04/21/17 07:54 Dose: 0.5 mg Hydromorphone HCl (Dilaudid) 1 mg IVP Q4HR PRN PRN Reason: Pain (Severe) Stop: 06/13/17 20:22 Last Admin: 04/21/17 10:51 Dose: 1 mg Piperacillin Sod/Tazobactam (Sod 4.5 gm/ Sodium Chloride) 100 mls @ 100 mls/hr IV Q6HR ARIAN Stop: 06/14/17 00:00 Last Admin: 04/21/17 06:00 Dose: 100 mls/hr Fluconazole (Diflucan) 200 mg in 100 mls @ 100 mls/hr IV Q24HR ARIAN Stop: 06/15/17 22:59 Last Admin: 04/20/17 23:00 Dose: 100 mls/hr Vancomycin HCl 1 gm/ Sodium (Chloride) 250 mls @ 165 mls/hr IV Q24HR@0800,2000 ARIAN Stop: 06/17/17 19:59 Last Admin: 04/21/17 08:54 Dose: 165 mls/hr Multivitamins/Minerals 10 ml/Dextrose/ Amino Acids/Electrolytes/ Fat Emulsion Intravenous 2,160 mls @ 90 mls/hr IV .Q24H ARIAN Stop: 06/19/17 15:59 Last Admin: 04/20/17 16:00 Dose: 90 mls/hr Potassium Phosphate 20 mmole/ (Sodium Chloride) 256.6667 mls @ 42 mls/hr IV ONCE ONE Stop: 04/21/17 15:06 Last Admin: 04/21/17 08:55 Dose: 42 mls/hr Dextrose (D5w) 1,000 mls @ 50 mls/hr IV .Q20H ARIAN Stop: 06/20/17 10:48 Potassium Chloride 20 meq/ (Sodium Chloride) 260 mls @ 130 mls/hr IV X1 ONE Stop: 04/21/17 12:49 Insulin Aspart (Novolog Insulin Sliding Scale) 0 units SUBQ Q6HR ARIAN PRN Reason: Protocol Stop: 06/16/17 17:59 Last Admin: 04/21/17 06:00 Dose: Not Given Lactobacillus Rhamnosus (Culturelle) 1 each PO DAILY ARAIN Stop: 06/15/17 08:59 Last Admin: 04/21/17 08:56 Dose: 1 each Lorazepam (Ativan) 1 mg IVP Q4HR PRN; Protocol PRN Reason: AGITATION Stop: 06/17/17 13:27 Last Admin: 04/19/17 10:20 Dose: 1 mg Miscellaneous (Probiotic Screen) 1 ea MC PRN PRN PRN Reason: PROTOCOL Stop: 06/14/17 09:39 Miscellaneous (Vancomycin Iv Per Pharmacy) 1 ea MC PRN ARIAN Stop: 06/14/17 12:44 Miscellaneous (Clinical Monitoring) 1 ea MC DAILY PRN PRN Reason: RENAL Stop: 06/15/17 12:48 Miscellaneous (Tpn Per Pharmacy) 1 ea MC PRN PRN PRN Reason: PROTOCOL Stop: 06/16/17 12:28 Morphine Sulfate (Morphine) 4 mg IVP Q2HR PRN PRN Reason: Pain (Moderate) Stop: 06/15/17 10:53 Last Admin: 04/21/17 01:24 Dose: 4 mg Ondansetron HCl (Zofran) 4 mg IVP Q6H PRN PRN Reason: Nausea / Vomiting Stop: 06/13/17 20:08 Pantoprazole Sodium (Protonix) 40 mg IVP DAILY COUNT INCLUDES THE [facility] Stop: 06/15/17 08:59 Last Admin: 04/21/17 08:56 Dose: 40 mg General: Alert, Oriented x3, Cooperative HEENT: Atraumatic, PERRLA, EOMI, Mucous membr. moist/pink Neck: Supple, +2 carotid pulse wo bruit Cardiovascular: Regular rate, Normal S1, Normal S2 Abdomen: Soft, Distended, Other (left colostomy bag with the serosanguineous discharge. ROLANDO drain right side.) Extremities: Other (no edema and cyanosis.) Neurological: Normal speech, Other (plan to understand conversation and moving his head up and down) Psych/Mental Status: Other (gets agitated at times.) - Procedures Procedures: Procedures Procedure Code Date BYPASS SIGMOID COLON TO CUTANEOUS, OPEN APPROACH [id number] 04/14/17 PARTIAL REMOVAL OF COLON 26366 04/14/17 RESECTION OF SIGMOID COLON, OPEN APPROACH [id number] 04/14/17 RESPIRATORY VENTILATION, LESS THAN 24 CONSECUTIVE HOURS [id number] 04/14/17 VENT MGMT INPAT INIT DAY 97548 04/14/17 Assessment/Plan - Problem List Patient Problems: All Active Problems Abscess of sigmoid colon due to diverticulitis (Acute) K57.20 Diverticulitis of sigmoid colon (Acute) K57.32 Obesity (Acute) E66.9 Perforation of sigmoid colon due to diverticulitis (Acute) K57.20 Peritonitis (acute) generalized (Acute) K65.0 - Assessment Assessment: Current Active Problems Problem Status Onset Abscess of sigmoid colon due to diverticulitis Acute Diverticulitis of sigmoid colon Acute Obesity Acute Perforation of sigmoid colon due to diverticulitis Acute Peritonitis (acute) generalized Acute Perforated sigmoid diverticulitis status post exploratory laparotomy and sigmoid colectomy intra-abdominal abscess drainage lysis of pleural Ada procedure and colostomy. Postoperative respiratory status post extubation. Obesity Asthma Recurrent fever. Bilateral wrist swelling and pain with abnormal x-rays needs orthopedic evaluation. Bone scan consistent with congestive seizure and possible charcot. Increasing agitation at time. Disability Leukocytosis secondary to infection Postop anemia. - Plan Plan: Transferred to telemetry unit. Post op care as per Dr. Trevino. JN sen. ID consult and follow-up. IV antibiotic. Oxygen, nebulizer treatment. TPN. Full code. Orthopedic consult Pending.. Pulmonary follow-up. GI and DVT prophylaxis. Follow-up lab. Follow up on consultants recommendations. Care plan reviewed and discussed with patient's RN and family. All questions answered. Symptoms management. Medication management. Nutritional Asmnt/Malnutr-PDOC - Dietary Evaluation Malnutrition Findings (Please click <Entered> for more info): Nutritional Asmnt/Malnutrition Start: 04/19/17 14: 21 Text: Status: Complete Freq: Document 04/19/17 14:21 GSUN (Rec: 04/19/17 14:58 [id number]) Nutritional Asmnt/Malnutrition Patient General Information Nutritional Screening Moderate Risk Screening Diagnosis Sepsis, diverticulitis, peritonitis Pertinent Medical Hx/Surgical Hx Asthma, diverticulosis Subjective Information 56 year old male frome home. Pt was restless, moving extremities during visit. 04/14 : sigmoid colectomy, end colostomy, abscess drainage, diffuse peritontis. 04/16: pt started PPN. 04/17: central line and started on TPN. Spoke to family at bedside, explained parenteral nutrition , family undersoto and has no further question at this time. Weight discrepancies noted in EMR, family does not know UBW , estimated nutritional needs based Current Diet Order/ Nutrition Support TPN D10% AA4.25% at 90ml/hr with IL20% 150ml, providing 1401.6kcal Pertinent Medications Dilaudid, Novolog, Culturelle, Magnesium Sulfate, Vancomycin , TPN, Morphine, Multivitamins , Zofran, Protonix, Nacl0.9% Pertinent Labs 04/14: triglycerides 106, total bilirubin 1.1H, glucose 116H 04/17: magnesium 2.5, phsophorus 3.2 04/19: magnesium 1.8L, phosphorus 2.4L, BUN 28H, creatinine 1.3, glucose 154H, total bilirubin 1.1H, triglycerides 238H Nutritional Hx/Data Height 1.7 m Height (Calculated Centimeters) 170.2 Current Weight (lbs) 95.254 kg Weight (Calculated Kilograms) 95.3 Weight (Calculated Grams) 97021.4 [place] Body Weight 148 Weight Status Overweight GI Symptoms Skin Integrity/Comment: [place] 14. Facial non-pitting 1+, bilateral hands pitting 1+ Estimated Nutritional Goals Calories/Kcals/Kg IBW 148/67.3kg Kcals Calculated 2018-2356kcal (30-35kcal/kg) Protein Calculated 101-135g (1.5-2g/kg) Fluid: ml Per MD Nutritional Problem 1. Problem Problem Altered GI function related to Etiology abscess and perforation of sigmoid colon due to diverticulitis aeb Signs/Symptoms: post-operative, on TPN Intervention/Recommendation Comments 1. Recommend TPN D15% AA5.5% at 100ml/hr with IL20% 150ml, providing 2400ml total volume, 2052kcal, 132g protein, meeting 100% of estimated nutritional needs. Carb load 2 .6mg/kg/min (using 210lb adm weight). 2. Monitor for possible refeeding syndrome, 04/18: phsophorus 2.1L, 04/19: magnesium 1.9. 3. Monitor triglycerides, total bilirubin, glucose, renal labs. Expected Outcomes/Goals Expected Outcomes/Goals 1. Pt to meet 100% of estimated nutritional needs on TPN.
[2017-04-21] MEDS: Dextrose 5% 1,000 ML IV SCH (12:13)
[2017-04-21] MEDS: TPN 10%-70% CUSTOM IV SCH (17:11)
[2017-04-21] MEDS: Fluconazole 200mg/100mL 200 MG/100 ML BAG IV SCH (22:51)
--- NOTE | 2017-04-21 23:45 | Infectious Disease Prog Note ---
Infectious Disease Subjective - Review of Systems Service Date: 04/21/17 Subjective: On VM. drowsy, confused. Unable to pass gas. both wrist are swollen. Infectious Disease Objective - Results Result Diagrams: 04/20/17 07:00 04/21/17 04:34 Recent Labs: Laboratory Last Values WBC 12.2 Th/cmm (4.8-10.8) H 04/20/17 07:00 RBC 3.19 Mil/cmm (4.30-5.70) L 04/20/17 07:00 Hgb 8.5 gm/dL (13.2-17.3) L 04/20/17 07:00 Hct 26.3 % (39.0-49.0) L 04/20/17 07:00 MCV 82.4 fl (80-99) 04/20/17 07:00 MCH 26.8 pg (26.0-30.0) 04/20/17 07:00 MCHC Differential 32.5 pg (28.0-36.0) 04/20/17 07:00 RDW 15.4 % (11.5-20.0) 04/20/17 07:00 Plt Count 595 Th/cmm (150-400) H 04/20/17 07:00 MPV 7.5 fl 04/20/17 07:00 Neutrophils % 84.5 % (40.0-80.0) H 04/20/17 07:00 Band Neutrophils % 3 % (0-10) 04/19/17 04:40 Lymphocytes % 9.6 % (20.0-50.0) L 04/20/17 07:00 Monocytes % 3.8 % (2.0-10.0) 04/20/17 07:00 Eosinophils % 1.7 % (0.0-5.0) 04/20/17 07:00 Basophils % 0.4 % (0.0-2.0) 04/20/17 07:00 Neutrophils (Manual) 82 % (40-80) H 04/19/17 04:40 Lymphocytes 9 % (20-50) L 04/19/17 04:40 Monocytes 5 % (2-10) 04/19/17 04:40 Eosinophils 1 % (0-5) 04/19/17 04:40 Platelet Estimate INCREASED PLATELETS (NORMAL) 04/19/17 04:40 Platelet Morphology PLATELET CLUMPS SEEN (NORMAL) 04/19/17 04:40 ESR > 140 mm/hr (0-20) H 04/20/17 07:00 PT 12.9 SECONDS (9.5-11.5) H 04/14/17 14:55 INR 1.23 (0.5-1.4) 04/14/17 14:55 PTT (Actin FS) 29.8 SECONDS (26.0-38.0) 04/14/17 14:55 Specimen Source Arterial 04/20/17 12:13 Sample Site RB 04/20/17 12:13 pH 7.51 (7.35-7.45) H 04/20/17 12:13 pCO2 32.0 mmHg (35.0-45.0) L 04/20/17 12:13 pO2 116.0 mmHg (80.0-100.0) H 04/20/17 12:13 HCO3 27.2 mEq/L (20.0-26.0) H 04/20/17 12:13 Base Excess 2.9 mEq/L (-3.0-3.0) 04/20/17 12:13 O2 Saturation 99.0 % (92.0-100.0) 04/20/17 12:13 Chau Test YES 04/19/17 09:00 Vent Rate NA 04/19/17 09:00 Inspired O2 32 04/20/17 12:13 Tidal Volume NA 04/19/17 09:00 PEEP NA 04/19/17 09:00 Pressure (ins/psv/peep) NA 04/19/17 09:00 Critical Value PW 04/20/17 12:13 Sodium 148 mEq/L (136-145) H 04/21/17 04:34 Potassium 3.3 mEq/L (3.5-5.1) L 04/21/17 04:34 Chloride 118 mEq/L (98-107) H 04/21/17 04:34 Carbon Dioxide 23.3 mEq/L (21.0-31.0) 04/21/17 04:34 Anion Gap 10.0 (7.0-16.0) 04/21/17 04:34 BUN 22 mg/dL (7-25) 04/21/17 04:34 Creatinine 1.3 mg/dL (0.7-1.3) 04/21/17 04:34 Est GFR ( Amer) > 60.0 ml/min (>90) 04/21/17 04:34 Est GFR (Non-Af Amer) > 60.0 ml/min 04/21/17 04:34 BUN/Creatinine Ratio 16.9 04/21/17 04:34 Glucose 135 mg/dL (70-105) H 04/21/17 04:34 POC Glucose 193 MG/DL (70 - 105) H 04/21/17 17:13 Whole Bld Lactic Acid 1.53 mmol/L (0.60-1.99) 04/14/17 14:55 Uric Acid 3.6 mg/dL (4.4-7.6) L 04/20/17 07:00 Calcium 8.2 mg/dL (8.6-10.3) L 04/21/17 04:34 Phosphorus 2.3 mg/dL (2.5-5.0) L 04/21/17 04:34 Magnesium 1.9 mg/dL (1.9-2.7) 04/21/17 04:34 Total Bilirubin 0.9 mg/dL (0.3-1.0) 04/20/17 07:00 AST 31 U/L (13-39) 04/20/17 07:00 ALT 20 U/L (7-52) 04/20/17 07:00 Alkaline Phosphatase 58 U/L (34-104) 04/20/17 07:00 Creatine Kinase 136 U/L (30-223) 04/14/17 14:55 Troponin I 0.01 ng/mL (0.01-0.05) 04/16/17 04:56 C-Reactive Protein 28.9 mg/dL (0.0-0.9) H 04/20/17 07:00 B-Natriuretic Peptide 85.5 pg/mL (5.0-100.0) 04/14/17 14:55 Total Protein 5.9 gm/dL (6.0-8.3) L 04/20/17 07:00 Albumin 2.3 gm/dL (4.2-5.5) L 04/20/17 07:00 Globulin 3.6 gm/dL 04/20/17 07:00 Albumin/Globulin Ratio 0.6 (1.0-1.8) L 04/20/17 07:00 Prealbumin 8 mg/dL (10-36) L 04/19/17 19:20 Triglycerides 238 mg/dL (<150) H 04/19/17 04:40 Cholesterol 80 mg/dL (<200) 04/19/17 04:40 LDL Cholesterol Direct 38 mg/dL (75-193) L 04/14/17 14:55 HDL Cholesterol 13 mg/dL (23-92) L 04/14/17 14:55 Amylase 31 U/L (29-103) 04/14/17 14:55 Lipase 15 U/L (11-82) 04/14/17 14:55 Urine Source CLEAN C 04/14/17 15:05 Urine Color ORANGE 04/14/17 15:05 Urine Clarity SLIGHT HAZY (CLEAR) 04/14/17 15:05 Urine pH 5.5 04/14/17 15:05 Ur Specific [place] 1.020 (1.005-1.030) 04/14/17 15:05 Urine Protein 100 mg/dL (NEGATIVE) H 04/14/17 15:05 Urine Glucose (UA) NEGATIVE mg/dL (NEGATIVE) 04/14/17 15:05 Urine Ketones 15 mg/dL (NEGATIVE) H 04/14/17 15:05 Urine Blood SMALL (NEGATIVE) H 04/14/17 15:05 Urine Nitrate NEGATIVE (NEGATIVE) 04/14/17 15:05 Urine Bilirubin SMALL (NEGATIVE) H 04/14/17 15:05 Urine Urobilinogen 1.0 E.U./dL (0.2 - 1.0) 04/14/17 15:05 Ur Leukocyte Esterase NEGATIVE (NEGATIVE) 04/14/17 15:05 Urine RBC 2-5 /hpf (0-5) H 04/14/17 15:05 Urine WBC 0-2 /hpf (0-5) 04/14/17 15:05 Ur Epithelial Cells OCCASIONAL /lpf (FEW) 04/14/17 15:05 Amorphous Sediment MANY URATES (NONE SEEN) 04/14/17 15:05 Urine Bacteria 1+ /hpf (NONE SEEN) H 04/14/17 15:05 Vancomycin Trough 13.5 ug/mL (10-20) 04/19/17 19:20 Blood Type O POSITIVE 04/14/17 20:36 Antibody Screen NEGATIVE 04/14/17 20:36 - Physical Exam Vitals and I&O: Vital Signs Temp 100.1 F 04/21/17 20:00 Pulse 115 04/21/17 20:00 Resp 24 04/21/17 20:00 BP 158/96 04/21/17 20:00 Pulse Ox 99 04/21/17 20:00 Intake & Output 04/21/17 04/21/17 04/22/17 06:59 18:59 06:59 Intake Total 1880 3430 Output Total 1300 900 Balance 580 2530 Weight (lbs) 101.469 kg 101.151 kg Intake: Intake, IV Amount 800 2360 Fluconazole 200mg/100mL 100 200 mg In 100 ml @ 100 mls/hr IV Q24HR [facility] Rx#: [id number] Multivitamin Inj 10 ml In 2160 Dextrose 70% 820 ml In Amino Acids 10% 1,180 ml In Intralipids 20% 150 ml @ 90 mls/hr IV .Q24H [facility] Rx#:[id number] Piperacillin Sodium/ 200 200 Tazobact 4.5 gm In Sodium Chloride 0.9% 100 ml @ 100 mls/hr IV Q6HR [facility] Rx #:[id number] Vancomycin HCl 1 gm In 500 Sodium Chloride 0.9% 250 ml @ 165 mls/hr IV Q24HR@ 0800,2000 [facility] Rx#: [id number] TPN/PPN 1080 720 Other 350 Output: Gastric Drainage 200 Urine 1300 Urine/Stool Mix 700 Other: Stool Characteristics Liquid Liquid Active Medications: Current Medications Albuterol/Ipratropium (Duoneb Neb) 3 ml [facility] Q4HRT [facility] Stop: 06/15/17 14:59 Last Admin: 04/21/17 19:16 Dose: 3 ml Budesonide (Pulmicort) 0.5 mg [facility]N BIDRT [facility] Stop: 06/15/17 18:59 Last Admin: 04/21/17 07:54 Dose: 0.5 mg Hydromorphone HCl (Dilaudid) 1 mg IVP Q4HR PRN PRN Reason: Pain (Severe) Stop: 06/13/17 20:22 Last Admin: 04/21/17 15:27 Dose: 1 mg Piperacillin Sod/Tazobactam (Sod 4.5 gm/ Sodium Chloride) 100 mls @ 100 mls/hr IV Q6HR [facility] Stop: 06/14/17 00:00 Last Infusion: 04/21/17 13:15 Dose: Infused Fluconazole (Diflucan) 200 mg in 100 mls @ 100 mls/hr IV Q24HR [facility]AN Stop: 06/15/17 22:59 Last Admin: 04/21/17 22:51 Dose: 100 mls/hr Vancomycin HCl 1 gm/ Sodium (Chloride) 250 mls @ 165 mls/hr IV Q24HR@0800,2000 [facility] Stop: 06/17/17 19:59 Last Admin: 04/21/17 08:54 Dose: 165 mls/hr Multivitamins/Minerals 10 ml/Dextrose/ Amino Acids/Electrolytes/ Fat Emulsion Intravenous 2,160 mls @ 90 mls/hr IV .Q24H [facility] Stop: 06/19/17 15:59 Last Admin: 04/21/17 17:11 Dose: 90 mls/hr Dextrose (D5w) 1,000 mls @ 40 mls/hr IV .Q24H [facility] Stop: 06/20/17 11:59 Last Admin: 04/21/17 12:13 Dose: 40 mls/hr Insulin Aspart (Novolog Insulin Sliding Scale) 0 units SUBQ Q6HR ARIAN PRN Reason: Protocol Stop: 06/16/17 17:59 Last Admin: 04/21/17 18:02 Dose: 2 units Lorazepam (Ativan) 1 mg IVP Q4HR PRN; Protocol PRN Reason: AGITATION Stop: 06/17/17 13:27 Last Admin: 04/21/17 20:13 Dose: 1 mg Miscellaneous (Probiotic Screen) 1 ea MC PRN PRN PRN Reason: PROTOCOL Stop: 06/14/17 09:39 Miscellaneous (Vancomycin Iv Per Pharmacy) 1 ea [facility] PRN [facility] Stop: 06/14/17 12:44 Miscellaneous (Clinical Monitoring) 1 ea MC DAILY PRN PRN Reason: RENAL Stop: 06/15/17 12:48 Miscellaneous (Tpn Per Pharmacy) 1 ea MC PRN PRN PRN Reason: PROTOCOL Stop: 06/16/17 12:28 Morphine Sulfate (Morphine) 4 mg IVP Q2HR PRN PRN Reason: Pain (Moderate) Stop: 06/15/17 10:53 Last Admin: 04/21/17 01:24 Dose: 4 mg Ondansetron HCl (Zofran) 4 mg IVP Q6H PRN PRN Reason: Nausea / Vomiting Stop: 06/13/17 20:08 Pantoprazole Sodium (Protonix) 40 mg IVP DAILY ARIAN Stop: 06/15/17 08:59 Last Admin: 04/21/17 08:56 Dose: 40 mg General: no acute distress, well developed, well nourished HEENT: atraumatic, normocephalic Neck: supple, no thyromegaly, no lines Cardiovascular: regular, irregular Lungs: clear to auscultation bilaterally, clear to percussion Abdomen: soft, no tender Extremities: no cyanosis, no clubbing, no edema - Procedures Procedures: Procedures Procedure Code Date BYPASS SIGMOID COLON TO CUTANEOUS, OPEN APPROACH [id number] 04/14/17 PARTIAL REMOVAL OF COLON 53433 04/14/17 RESECTION OF SIGMOID COLON, OPEN APPROACH [id number] 04/14/17 RESPIRATORY VENTILATION, LESS THAN 24 CONSECUTIVE HOURS [id number] 04/14/17 VENT MGMT INPAT INIT DAY 61300 04/14/17 Infectious Disease Assmt/Plan - Problem List Patient Problems: All Active Problems Abscess of sigmoid colon due to diverticulitis (Acute) K57.20 Diverticulitis of sigmoid colon (Acute) K57.32 Obesity (Acute) E66.9 Perforation of sigmoid colon due to diverticulitis (Acute) K57.20 Peritonitis (acute) generalized (Acute) K65.0 - Assessment Assessment: 1. Sepsis. 2. Diverticulitis, sigmoid diverticula to with support complicated by multiple abscesses and peritonitis. 3. Post operatively, on ventilator. 4. Peritonitis. Likely polymicrobial. 5. History of asthma. 6. History of arthritis. 7. Distended abdomen likely post operative ileus. Rule out small bowel obstruction. 8. SEKOU. 9. Post op, paralytic ileus. 10. Wrist cellulitis, worse on left with destruction of bones. X ray of the left wrist suggested osteomyelitis. Plan: Continue Zosyn, diflucan and vancomycin. Sepsis workup was performed and follow the sepsis workup. Follow-up CBC and CMP in the morning. Otherwise, for fever will use ice packs and if needed Cooling blanket. KUB in AM. Nutritional Asmnt/Malnutr-PDOC - Dietary Evaluation Malnutrition Findings (Please click <Entered> for more info): Nutritional Asmnt/Malnutrition Start: 04/19/17 14: 21 Text: Status: Complete Freq: Document 04/19/17 14:21 [id number] (Rec: 04/19/17 14:58 [id number]) Nutritional Asmnt/Malnutrition Patient General Information Nutritional Screening Moderate Risk Screening Diagnosis Sepsis, diverticulitis, peritonitis Pertinent Medical Hx/Surgical Hx Asthma, diverticulosis Subjective Information 56 year old male frome home. Pt was restless, moving extremities during visit. 04/14 : sigmoid colectomy, end colostomy, abscess drainage, diffuse peritontis. 04/16: pt started PPN. 04/17: central line and started on TPN. Spoke to family at bedside, explained parenteral nutrition , family undersoto and has no further question at this time. Weight discrepancies noted in EMR, family does not know UBW , estimated nutritional needs based Current Diet Order/ Nutrition Support TPN D10% AA4.25% at 90ml/hr with IL20% 150ml, providing 1401.6kcal Pertinent Medications Dilaudid, Novolog, Culturelle, Magnesium Sulfate, Vancomycin , TPN, Morphine, Multivitamins , Zofran, Protonix, Nacl0.9% Pertinent Labs 04/14: triglycerides 106, total bilirubin 1.1H, glucose 116H 04/17: magnesium 2.5, phsophorus 3.2 04/19: magnesium 1.8L, phosphorus 2.4L, BUN 28H, creatinine 1.3, glucose 154H, total bilirubin 1.1H, triglycerides 238H Nutritional Hx/Data Height 1.7 m Height (Calculated Centimeters) 170.2 Current Weight (lbs) 95.254 kg Weight (Calculated Kilograms) 95.3 Weight (Calculated Grams) 46240.4 [employer] Body Weight 148 Weight Status Overweight GI Symptoms Skin Integrity/Comment: [place] 14. Facial non-pitting 1+, bilateral hands pitting 1+ Estimated Nutritional Goals Calories/Kcals/Kg IBW 148/67.3kg Kcals Calculated 2019-2356kcal (30-35kcal/kg) Protein Calculated 101-135g (1.5-2g/kg) Fluid: ml Per MD Nutritional Problem 1. Problem Problem Altered GI function related to Etiology abscess and perforation of sigmoid colon due to diverticulitis aeb Signs/Symptoms: post-operative, on TPN Intervention/Recommendation Comments 1. Recommend TPN D15% AA5.5% at 100ml/hr with IL20% 150ml, providing 2400ml total volume, 2052kcal, 132g protein, meeting 100% of estimated nutritional needs. Carb load 2 .6mg/kg/min (using 210lb adm weight). 2. Monitor for possible refeeding syndrome, 04/18: phsophorus 2.1L, 04/19: magnesium 1.9. 3. Monitor triglycerides, total bilirubin, glucose, renal labs. Expected Outcomes/Goals Expected Outcomes/Goals 1. Pt to meet 100% of estimated nutritional needs on TPN.
[2017-04-22] MEDS: INSULIN ASPART SLIDING SCALE 100 UNITS/ML UNIT SUBQ SCH ×6 (00:25→17:13)
[2017-04-22] MEDS: Albuterol/Ipratropium Neb 3 ML AERS HHN SCH ×6 (03:21→23:17)
[2017-04-22] MEDS: Morphine Sulfate 4 mg/mL 1mL Syr IVP PRN (04:00)
[2017-04-22 05:27] LABS: HEMATOCRIT 24.8 % (39.0-49.0); MEAN CELL VOLUME 80.7 fl (80-99); MEAN CORPUSCULAR HEMOGLOBIN 25.7 pg (26.0-30.0); MEAN CORPUSCULAR HGB CONC 31.9 pg (28.0-36.0); MEAN PLATELET VOLUME 7.7 fl; PLATELET COUNT 642 Th/cmm (150-400); RED BLOOD COUNT 3.07 Mil/cmm (4.30-5.70); RED CELL DISTRIBUTION WIDTH 15.6 % (11.5-20.0)
[2017-04-22 05:40] LABS: HEMOGLOBIN 7.9 gm/dL (13.2-17.3); WHITE BLOOD COUNT 8.6 Th/cmm (4.8-10.8)
[2017-04-22 05:49] LABS: ALB/GLOB RATIO 0.7 (1.0-1.8); ANION GAP 7.4 (7.0-16.0); BILIRUBIN,TOTAL 0.7 mg/dL (0.3-1.0); BUN/CREATININE RATIO 12.8; CALCIUM SERUM 8.7 mg/dL (8.6-10.3); CREATININE - SERUM 1.8 mg/dL (0.7-1.3); PHOSPHOROUS 3.9 mg/dL (2.5-5.0); POTASSIUM SERUM 3.4 mEq/L (3.5-5.1)
[2017-04-22] MEDS: Budesonide 0.5 Mg/2 mL Ud HHN SCH ×2 (07:48→19:43)
[2017-04-22 09:29] LABS: ANISOCYTOSIS 1+; METAMYELOCYTE 1 % (0-0); NEUTROPHILS 79 % (40-80); PLATELET ESTIMATE INCREASED PLATELETS (NORMAL); PLATELET MORPHOLOGY NORMAL (NORMAL); TOTAL CELLS COUNTED 100
--- NOTE | 2017-04-22 09:35 | General Progress Note ---
Subjective - Review of Systems Subjective: Patient is seen and examined. Patient is two daughters are at bedside. Patient is still drowsy, discussed with RN patient did receive IV Dilaudid and Ativan. Patient wants to drink water. patient wants NG tube out. Discussed the staff minimal NG secretion noted. Patient's denies any chest pain, shortness of breath, palpitation, dizziness, does have pain at the surgical site as well as both wrist . Objective - Results Result Diagrams: 04/22/17 05:04 04/22/17 05:04 Recent Labs: Laboratory Last Values WBC 8.6 Th/cmm (4.8-10.8) D 04/22/17 05:04 RBC 3.07 Mil/cmm (4.30-5.70) L 04/22/17 05:04 Hgb 7.9 gm/dL (13.2-17.3) L* 04/22/17 05:04 Hct 24.8 % (39.0-49.0) L 04/22/17 05:04 MCV 80.7 fl (80-99) 04/22/17 05:04 MCH 25.7 pg (26.0-30.0) L 04/22/17 05:04 MCHC Differential 31.9 pg (28.0-36.0) 04/22/17 05:04 RDW 15.6 % (11.5-20.0) 04/22/17 05:04 Plt Count 642 Th/cmm (150-400) H 04/22/17 05:04 MPV 7.7 fl 04/22/17 05:04 Neutrophils % 84.5 % (40.0-80.0) H 04/20/17 07:00 Band Neutrophils % 3 % (0-10) 04/19/17 04:40 Lymphocytes % 9.6 % (20.0-50.0) L 04/20/17 07:00 Monocytes % 3.8 % (2.0-10.0) 04/20/17 07:00 Eosinophils % 1.7 % (0.0-5.0) 04/20/17 07:00 Basophils % 0.4 % (0.0-2.0) 04/20/17 07:00 Neutrophils (Manual) 82 % (40-80) H 04/19/17 04:40 Lymphocytes 9 % (20-50) L 04/19/17 04:40 Monocytes 5 % (2-10) 04/19/17 04:40 Eosinophils 1 % (0-5) 04/19/17 04:40 Platelet Estimate INCREASED PLATELETS (NORMAL) 04/19/17 04:40 Platelet Morphology PLATELET CLUMPS SEEN (NORMAL) 04/19/17 04:40 ESR > 140 mm/hr (0-20) H 04/20/17 07:00 PT 12.9 SECONDS (9.5-11.5) H 04/14/17 14:55 INR 1.23 (0.5-1.4) 04/14/17 14:55 PTT (Actin FS) 29.8 SECONDS (26.0-38.0) 04/14/17 14:55 Specimen Source Arterial 04/20/17 12:13 Sample Site RB 04/20/17 12:13 pH 7.51 (7.35-7.45) H 04/20/17 12:13 pCO2 32.0 mmHg (35.0-45.0) L 04/20/17 12:13 pO2 116.0 mmHg (80.0-100.0) H 04/20/17 12:13 HCO3 27.2 mEq/L (20.0-26.0) H 04/20/17 12:13 Base Excess 2.9 mEq/L (-3.0-3.0) 04/20/17 12:13 O2 Saturation 99.0 % (92.0-100.0) 04/20/17 12:13 Chau Test YES 04/19/17 09:00 Vent Rate NA 04/19/17 09:00 Inspired O2 32 04/20/17 12:13 Tidal Volume NA 04/19/17 09:00 PEEP NA 04/19/17 09:00 Pressure (ins/psv/peep) NA 04/19/17 09:00 Critical Value PW 04/20/17 12:13 Sodium 148 mEq/L (136-145) H 04/22/17 05:04 Potassium 3.4 mEq/L (3.5-5.1) L 04/22/17 05:04 Chloride 120 mEq/L (98-107) H 04/22/17 05:04 Carbon Dioxide 24.0 mEq/L (21.0-31.0) 04/22/17 05:04 Anion Gap 7.4 (7.0-16.0) 04/22/17 05:04 BUN 23 mg/dL (7-25) 04/22/17 05:04 Creatinine 1.8 mg/dL (0.7-1.3) H 04/22/17 05:04 Est GFR ( Amer) 50.3 ml/min (>90) 04/22/17 05:04 Est GFR (Non-Af Amer) 41.5 ml/min 04/22/17 05:04 BUN/Creatinine Ratio 12.8 04/22/17 05:04 Glucose 186 mg/dL (70-105) H 04/22/17 05:04 POC Glucose 160 MG/DL (70 - 105) H 04/22/17 06:10 Hemoglobin A1c % 6.7 % (4.0-6.0) H 04/22/17 05:04 Whole Bld Lactic Acid 1.53 mmol/L (0.60-1.99) 04/14/17 14:55 Uric Acid 3.6 mg/dL (4.4-7.6) L 04/20/17 07:00 Calcium 8.7 mg/dL (8.6-10.3) 04/22/17 05:04 Phosphorus 3.9 mg/dL (2.5-5.0) 04/22/17 05:04 Magnesium 2.0 mg/dL (1.9-2.7) 04/22/17 05:04 Total Bilirubin 0.7 mg/dL (0.3-1.0) 04/22/17 05:04 AST 51 U/L (13-39) H 04/22/17 05:04 ALT 28 U/L (7-52) 04/22/17 05:04 Alkaline Phosphatase 60 U/L (34-104) 04/22/17 05:04 Creatine Kinase 136 U/L (30-223) 04/14/17 14:55 Troponin I 0.01 ng/mL (0.01-0.05) 04/22/17 05:04 C-Reactive Protein 28.9 mg/dL (0.0-0.9) H 04/20/17 07:00 B-Natriuretic Peptide 85.5 pg/mL (5.0-100.0) 04/14/17 14:55 Total Protein 6.0 gm/dL (6.0-8.3) 04/22/17 05:04 Albumin 2.4 gm/dL (4.2-5.5) L 04/22/17 05:04 Globulin 3.6 gm/dL 04/22/17 05:04 Albumin/Globulin Ratio 0.7 (1.0-1.8) L 04/22/17 05:04 Prealbumin 8 mg/dL (10-36) L 04/19/17 19:20 Triglycerides 238 mg/dL (<150) H 04/19/17 04:40 Cholesterol 80 mg/dL (<200) 04/19/17 04:40 LDL Cholesterol Direct 38 mg/dL (75-193) L 04/14/17 14:55 HDL Cholesterol 13 mg/dL (23-92) L 04/14/17 14:55 Amylase 31 U/L (29-103) 04/14/17 14:55 Lipase 15 U/L (11-82) 04/14/17 14:55 Urine Source CLEAN C 04/14/17 15:05 Urine Color ORANGE 04/14/17 15:05 Urine Clarity SLIGHT HAZY (CLEAR) 04/14/17 15:05 Urine pH 5.5 04/14/17 15:05 Ur Specific [place] 1.020 (1.005-1.030) 04/14/17 15:05 Urine Protein 100 mg/dL (NEGATIVE) H 04/14/17 15:05 Urine Glucose (UA) NEGATIVE mg/dL (NEGATIVE) 04/14/17 15:05 Urine Ketones 15 mg/dL (NEGATIVE) H 04/14/17 15:05 Urine Blood SMALL (NEGATIVE) H 04/14/17 15:05 Urine Nitrate NEGATIVE (NEGATIVE) 04/14/17 15:05 Urine Bilirubin SMALL (NEGATIVE) H 04/14/17 15:05 Urine Urobilinogen 1.0 E.U./dL (0.2 - 1.0) 04/14/17 15:05 Ur Leukocyte Esterase NEGATIVE (NEGATIVE) 04/14/17 15:05 Urine RBC 2-5 /hpf (0-5) H 04/14/17 15:05 Urine WBC 0-2 /hpf (0-5) 04/14/17 15:05 Ur Epithelial Cells OCCASIONAL /lpf (FEW) 04/14/17 15:05 Amorphous Sediment MANY URATES (NONE SEEN) 04/14/17 15:05 Urine Bacteria 1+ /hpf (NONE SEEN) H 04/14/17 15:05 Vancomycin Trough 13.5 ug/mL (-20) 04/19/17 19:20 Blood Type O POSITIVE 04/14/17 20:36 Antibody Screen NEGATIVE 04/14/17 20:36 - Physical Exam Vitals and I&O: Vital Signs Temp 98.4 F 04/22/17 04:00 Pulse 115 04/22/17 07:53 Resp 22 04/22/17 07:53 BP 138/62 04/22/17 04:00 Pulse Ox 100 04/22/17 07:53 Intake & Output 04/21/17 04/22/17 04/22/17 18:59 06:59 18:59 Intake Total 3680 1280 Output Total 900 70 Balance 2780 1210 Weight (lbs) 101.151 kg 100.244 kg Intake: Intake, IV Amount 2610 200 Fluconazole 200mg/100mL 100 200 mg In 100 ml @ 100 mls/hr IV Q24HR [facility] Rx#: [id number] Multivitamin Inj 10 ml In 2160 Dextrose 70% 820 ml In Amino Acids 10% 1,180 ml In Intralipids 20% 150 ml @ 90 mls/hr IV .Q24H [facility] Rx#:[id number] Piperacillin Sodium/ 200 100 Tazobact 4.5 gm In Sodium Chloride 0.9% 100 ml @ 100 mls/hr IV Q6HR [facility] Rx #:[id number] Vancomycin HCl 1 gm In 250 Sodium Chloride 0.9% 250 ml @ 165 mls/hr IV Q24HR@ 0800,2000 [facility] Rx#: [id number] TPN/PPN 720 1080 Other 350 Output: Gastric Drainage 200 Drainage 70 Left Lower Abdomen 40 Right Lower Abdomen 30 Urine/Stool Mix 700 Other: # Voids 5 # Bowel Movements 0 Stool Characteristics Liquid Active Medications: Current Medications Albuterol/Ipratropium (Duoneb Neb) 3 ml HHN Q4HRT [facility] Stop: 06/15/17 14:59 Last Admin: 04/22/17 07:48 Dose: 3 ml Budesonide (Pulmicort) 0.5 mg HHN BIDRT [facility] Stop: 06/15/17 18:59 Last Admin: 04/22/17 07:48 Dose: 0.5 mg Piperacillin Sod/Tazobactam (Sod 4.5 gm/ Sodium Chloride) 100 mls @ 100 mls/hr IV Q6HR [facility] Stop: 06/14/17 00:00 Last Admin: 04/22/17 06:28 Dose: 100 mls/hr Fluconazole (Diflucan) 200 mg in 100 mls @ 100 mls/hr IV Q24HR [facility] Stop: 06/15/17 22:59 Last Infusion: 04/22/17 00:00 Dose: Infused Vancomycin HCl 1 gm/ Sodium (Chloride) 250 mls @ 165 mls/hr IV Q24HR@0800,1999 [facility] Stop: 06/17/17 19:59 Last Admin: 04/21/17 21:00 Dose: 165 mls/hr Multivitamins/Minerals 10 ml/Dextrose/ Amino Acids/Electrolytes/ Fat Emulsion Intravenous 2,160 mls @ 90 mls/hr IV .Q24H [facility] Stop: 06/19/17 15:59 Last Admin: 04/21/17 17:11 Dose: 90 mls/hr Dextrose (D5w) 1,000 mls @ 40 mls/hr IV .Q24H [facility] Stop: 06/20/17 11:59 Last Admin: 04/21/17 12:13 Dose: 40 mls/hr Insulin Aspart (Novolog Insulin Sliding Scale) 0 units SUBQ Q6HR [facility] PRN Reason: Protocol Stop: 06/16/17 17:59 Last Admin: 04/22/17 06:25 Dose: 2 units Lorazepam (Ativan) 1 mg IVP Q4HR PRN; Protocol PRN Reason: AGITATION Stop: 06/17/17 13:27 Last Admin: 04/22/17 06:36 Dose: 1 mg Miscellaneous (Probiotic Screen) 1 ea MC PRN PRN PRN Reason: PROTOCOL Stop: 06/14/17 09:39 Miscellaneous (Vancomycin Iv Per Pharmacy) 1 ea MC PRN [facility] Stop: 06/14/17 12:44 Miscellaneous (Clinical Monitoring) 1 ea MC DAILY PRN PRN Reason: RENAL Stop: 06/15/17 12:48 Miscellaneous (Tpn Per Pharmacy) 1 ea MC PRN PRN PRN Reason: PROTOCOL Stop: 06/16/17 12:28 Morphine Sulfate (Morphine) 4 mg IVP Q2HR PRN PRN Reason: Pain (Moderate) Stop: 06/15/17 10:53 Last Admin: 04/22/17 04:00 Dose: 4 mg Ondansetron HCl (Zofran) 4 mg IVP Q6H PRN PRN Reason: Nausea / Vomiting Stop: 06/13/17 20:08 Pantoprazole Sodium (Protonix) 40 mg IVP DAILY [facility] Stop: 06/15/17 08:59 Last Admin: 04/21/17 08:56 Dose: 40 mg General: Alert, Oriented x3, Cooperative HEENT: Atraumatic, PERRLA, EOMI, Mucous membr. moist/pink Neck: Supple, +2 carotid pulse wo bruit Cardiovascular: Regular rate, Normal S1, Normal S2 Lungs: Other (diffuse rhonchi.) Abdomen: Soft, Distended, Other (left colostomy bag with the serosanguineous discharge. ROLANDO drain right side.) Extremities: Other (no edema and cyanosis.) Neurological: Normal speech, Other (plan to understand conversation and moving his head up and down) Psych/Mental Status: Other (gets agitated at times.) - Procedures Procedures: Procedures Procedure Code Date BYPASS SIGMOID COLON TO CUTANEOUS, OPEN APPROACH [id number] 04/14/17 PARTIAL REMOVAL OF COLON 10248 04/14/17 RESECTION OF SIGMOID COLON, OPEN APPROACH [id number] 04/14/17 RESPIRATORY VENTILATION, LESS THAN 24 CONSECUTIVE HOURS [id number] 04/14/17 VENT MGMT INPAT INIT DAY 32541 04/14/17 Assessment/Plan - Problem List Patient Problems: All Active Problems Abscess of sigmoid colon due to diverticulitis (Acute) K57.20 Diverticulitis of sigmoid colon (Acute) K57.32 Obesity (Acute) E66.9 Perforation of sigmoid colon due to diverticulitis (Acute) K57.20 Peritonitis (acute) generalized (Acute) K65.0 - Assessment Assessment: Current Active Problems Problem Status Onset Abscess of sigmoid colon due to diverticulitis Acute Diverticulitis of sigmoid colon Acute Obesity Acute Perforation of sigmoid colon due to diverticulitis Acute Peritonitis (acute) generalized Acute Perforated sigmoid diverticulitis status post exploratory laparotomy and sigmoid colectomy intra-abdominal abscess drainage lysis of pleural Ada procedure and colostomy. Postoperative respiratory status post extubation. Obesity. Polymicrobial peritonitis. Asthma. Recurrent fever. Bilateral wrist swelling and pain with abnormal x-rays needs orthopedic evaluation. Bone scan consistent with charcot. Increasing agitation at time. Disability Leukocytosis secondary to infection Postop anemia. - Plan Plan: Discontinue NG tube. Ice chips and oral swab. Start PTOT. IV antibiotics as per ID. Continue oxygen, HHN. Pulmonary follow-up. GI and DVT prophylaxis. Follow-up lab. Follow up on consultants recommendations. Care plan reviewed and discussed with patient's RN and family. All questions answered. Symptoms management. Medication management. Nutritional Asmnt/Malnutr-PDOC - Dietary Evaluation Malnutrition Findings (Please click <Entered> for more info): Nutritional Asmnt/Malnutrition Start: 04/19/17 14: 21 Text: Status: Complete Freq: Document 04/19/17 14:21 GSUN (Rec: 04/19/17 14:58 [id number]) Nutritional Asmnt/Malnutrition Patient General Information Nutritional Screening Moderate Risk Screening Diagnosis Sepsis, diverticulitis, peritonitis Pertinent Medical Hx/Surgical Hx Asthma, diverticulosis Subjective Information 56 year old male frome home. Pt was restless, moving extremities during visit. 04/14 : sigmoid colectomy, end colostomy, abscess drainage, diffuse peritontis. 04/16: pt started PPN. 04/17: central line and started on TPN. Spoke to family at bedside, explained parenteral nutrition , family undersoto and has no further question at this time. Weight discrepancies noted in EMR, family does not know UBW , estimated nutritional needs based Current Diet Order/ Nutrition Support TPN D10% AA4.25% at 90ml/hr with IL20% 150ml, providing 1401.6kcal Pertinent Medications Dilaudid, Novolog, Culturelle, Magnesium Sulfate, Vancomycin , TPN, Morphine, Multivitamins , Zofran, Protonix, Nacl0.9% Pertinent Labs 04/14: triglycerides 106, total bilirubin 1.1H, glucose 116H 04/17: magnesium 2.5, phsophorus 3.2 04/19: magnesium 1.8L, phosphorus 2.4L, BUN 28H, creatinine 1.3, glucose 154H, total bilirubin 1.1H, triglycerides 238H Nutritional Hx/Data Height 1.7 m Height (Calculated Centimeters) 170.2 Current Weight (lbs) 95.254 kg Weight (Calculated Kilograms) 95.3 Weight (Calculated Grams) 96177.4 [place] Body Weight 148 Weight Status Overweight GI Symptoms Skin Integrity/Comment: [place] 14. Facial non-pitting 1+, bilateral hands pitting 1+ Estimated Nutritional Goals Calories/Kcals/Kg IBW 148/67.3kg Kcals Calculated 2018-2356kcal (30-35kcal/kg) Protein Calculated 101-135g (1.5-2g/kg) Fluid: ml Per MD Nutritional Problem 1. Problem Problem Altered GI function related to Etiology abscess and perforation of sigmoid colon due to diverticulitis aeb Signs/Symptoms: post-operative, on TPN Intervention/Recommendation Comments 1. Recommend TPN D15% AA5.5% at 100ml/hr with IL20% 150ml, providing 2400ml total volume, 2052kcal, 132g protein, meeting 100% of estimated nutritional needs. Carb load 2 .6mg/kg/min (using 210lb adm weight). 2. Monitor for possible refeeding syndrome, 04/18: phsophorus 2.1L, 04/19: magnesium 1.9. 3. Monitor triglycerides, total bilirubin, glucose, renal labs. Expected Outcomes/Goals Expected Outcomes/Goals 1. Pt to meet 100% of estimated nutritional needs on TPN.
--- NOTE | 2017-04-22 10:21 | Diagnostic Imaging Report ---
Exam: Portable summation of chest supine. HISTORY: Shortness of breath. Findings: Portable supine examination of chest at 0334 hours reviewed no prior studies available comparison. Bony thorax is intact. Mediastinal structures midline. NG tube passes stomach. Right jugular catheter terminates in superior vena cava. No acute pulmonic infiltrates or effusions are noted. The costophrenic angles are clear. IMPRESSION: No acute disease.
[2017-04-22] MEDS: Dextrose 5% 1,000 ML IV SCH (13:08)
--- NOTE | 2017-04-22 14:34 | Infectious Disease Prog Note ---
Infectious Disease Subjective - Review of Systems Service Date: 04/22/17 Subjective: On VM. drowsy, confused. Unable to pass gas. both wrist are swollen. Infectious Disease Objective - Results Result Diagrams: 04/22/17 05:04 04/22/17 05:04 Recent Labs: Laboratory Last Values WBC 8.6 Th/cmm (4.8-10.8) D 04/22/17 05:04 RBC 3.07 Mil/cmm (4.30-5.70) L 04/22/17 05:04 Hgb 7.9 gm/dL (13.2-17.3) L* 04/22/17 05:04 Hct 24.8 % (39.0-49.0) L 04/22/17 05:04 MCV 80.7 fl (80-99) 04/22/17 05:04 MCH 25.7 pg (26.0-30.0) L 04/22/17 05:04 MCHC Differential 31.9 pg (28.0-36.0) 04/22/17 05:04 RDW 15.6 % (11.5-20.0) 04/22/17 05:04 Plt Count 642 Th/cmm (150-400) H 04/22/17 05:04 MPV 7.7 fl 04/22/17 05:04 Neutrophils % 84.5 % (40.0-80.0) H 04/20/17 07:00 Band Neutrophils % 3 % (0-10) 04/19/17 04:40 Lymphocytes % 9.6 % (20.0-50.0) L 04/20/17 07:00 Monocytes % 3.8 % (2.0-10.0) 04/20/17 07:00 Eosinophils % 1.7 % (0.0-5.0) 04/20/17 07:00 Basophils % 0.4 % (0.0-2.0) 04/20/17 07:00 Neutrophils (Manual) 79 % (40-80) 04/22/17 05:04 Lymphocytes 14 % (20-50) L 04/22/17 05:04 Monocytes 6 % (2-10) 04/22/17 05:04 Eosinophils 1 % (0-5) 04/19/17 04:40 Metamyelocytes 1 % (0-0) H 04/22/17 05:04 Platelet Estimate INCREASED PLATELETS (NORMAL) 04/22/17 05:04 Platelet Morphology NORMAL (NORMAL) 04/22/17 05:04 Anisocytosis 1+ 04/22/17 05:04 RBC Morph Micro Appear ABNORMAL (NORMAL) 04/22/17 05:04 ESR > 140 mm/hr (0-20) H 04/20/17 07:00 PT 12.9 SECONDS (9.5-11.5) H 04/14/17 14:55 INR 1.23 (0.5-1.4) 04/14/17 14:55 PTT (Actin FS) 29.8 SECONDS (26.0-38.0) 04/14/17 14:55 Specimen Source Arterial 04/20/17 12:13 Sample Site RB 04/20/17 12:13 pH 7.51 (7.35-7.45) H 04/20/17 12:13 pCO2 32.0 mmHg (35.0-45.0) L 04/20/17 12:13 pO2 116.0 mmHg (80.0-100.0) H 04/20/17 12:13 HCO3 27.2 mEq/L (20.0-26.0) H 04/20/17 12:13 Base Excess 2.9 mEq/L (-3.0-3.0) 04/20/17 12:13 O2 Saturation 99.0 % (92.0-100.0) 04/20/17 12:13 Chau Test YES 04/19/17 09:00 Vent Rate NA 04/19/17 09:00 Inspired O2 32 04/20/17 12:13 Tidal Volume NA 04/19/17 09:00 PEEP NA 04/19/17 09:00 Pressure (ins/psv/peep) NA 04/19/17 09:00 Critical Value PW 04/20/17 12:13 Sodium 148 mEq/L (136-145) H 04/22/17 05:04 Potassium 3.4 mEq/L (3.5-5.1) L 04/22/17 05:04 Chloride 120 mEq/L (98-107) H 04/22/17 05:04 Carbon Dioxide 24.0 mEq/L (21.0-31.0) 04/22/17 05:04 Anion Gap 7.4 (7.0-16.0) 04/22/17 05:04 BUN 23 mg/dL (7-25) 04/22/17 05:04 Creatinine 1.8 mg/dL (0.7-1.3) H 04/22/17 05:04 Est GFR ( Amer) 50.3 ml/min (>90) 04/22/17 05:04 Est GFR (Non-Af Amer) 41.5 ml/min 04/22/17 05:04 BUN/Creatinine Ratio 12.8 04/22/17 05:04 Glucose 186 mg/dL (70-105) H 04/22/17 05:04 POC Glucose 177 MG/DL (70 - 105) H 04/22/17 11:57 Hemoglobin A1c % 6.7 % (4.0-6.0) H 04/22/17 05:04 Whole Bld Lactic Acid 1.53 mmol/L (0.60-1.99) 04/14/17 14:55 Uric Acid 3.6 mg/dL (4.4-7.6) L 04/20/17 07:00 Calcium 8.7 mg/dL (8.6-10.3) 04/22/17 05:04 Phosphorus 3.9 mg/dL (2.5-5.0) 04/22/17 05:04 Magnesium 2.0 mg/dL (1.9-2.7) 04/22/17 05:04 Total Bilirubin 0.7 mg/dL (0.3-1.0) 04/22/17 05:04 AST 51 U/L (13-39) H 04/22/17 05:04 ALT 28 U/L (7-52) 04/22/17 05:04 Alkaline Phosphatase 60 U/L (34-104) 04/22/17 05:04 Creatine Kinase 136 U/L (30-223) 04/14/17 14:55 Troponin I 0.01 ng/mL (0.01-0.05) 04/22/17 05:04 C-Reactive Protein 28.9 mg/dL (0.0-0.9) H 04/20/17 07:00 B-Natriuretic Peptide 85.5 pg/mL (5.0-100.0) 04/14/17 14:55 Total Protein 6.0 gm/dL (6.0-8.3) 04/22/17 05:04 Albumin 2.4 gm/dL (4.2-5.5) L 04/22/17 05:04 Globulin 3.6 gm/dL 04/22/17 05:04 Albumin/Globulin Ratio 0.7 (1.0-1.8) L 04/22/17 05:04 Prealbumin 8 mg/dL (10-36) L 04/19/17 19:20 Triglycerides 238 mg/dL (<150) H 04/19/17 04:40 Cholesterol 80 mg/dL (<200) 04/19/17 04:40 LDL Cholesterol Direct 38 mg/dL (75-193) L 04/14/17 14:55 HDL Cholesterol 13 mg/dL (23-92) L 04/14/17 14:55 Amylase 31 U/L (29-103) 04/14/17 14:55 Lipase 15 U/L (11-82) 04/14/17 14:55 Urine Source CLEAN C 04/14/17 15:05 Urine Color ORANGE 04/14/17 15:05 Urine Clarity SLIGHT HAZY (CLEAR) 04/14/17 15:05 Urine pH 5.5 04/14/17 15:05 Ur Specific [place] 1.020 (1.005-1.030) 04/14/17 15:05 Urine Protein 100 mg/dL (NEGATIVE) H 04/14/17 15:05 Urine Glucose (UA) NEGATIVE mg/dL (NEGATIVE) 04/14/17 15:05 Urine Ketones 15 mg/dL (NEGATIVE) H 04/14/17 15:05 Urine Blood SMALL (NEGATIVE) H 04/14/17 15:05 Urine Nitrate NEGATIVE (NEGATIVE) 04/14/17 15:05 Urine Bilirubin SMALL (NEGATIVE) H 04/14/17 15:05 Urine Urobilinogen 1.0 E.U./dL (0.2 - 1.0) 04/14/17 15:05 Ur Leukocyte Esterase NEGATIVE (NEGATIVE) 04/14/17 15:05 Urine RBC 2-5 /hpf (0-5) H 04/14/17 15:05 Urine WBC 0-2 /hpf (0-5) 04/14/17 15:05 Ur Epithelial Cells OCCASIONAL /lpf (FEW) 04/14/17 15:05 Amorphous Sediment MANY URATES (NONE SEEN) 04/14/17 15:05 Urine Bacteria 1+ /hpf (NONE SEEN) H 04/14/17 15:05 Vancomycin Trough 13.5 ug/mL (10-20) 04/19/17 19:20 Blood Type O POSITIVE 04/14/17 20:36 Antibody Screen NEGATIVE 04/14/17 20:36 - Physical Exam Vitals and I&O: Vital Signs Temp 98.4 F 04/22/17 04:00 Pulse 112 04/22/17 12:45 Resp 20 04/22/17 12:45 BP 138/62 04/22/17 04:00 Pulse Ox 100 04/22/17 12:45 Intake & Output 04/21/17 04/22/17 04/22/17 18:59 06:59 18:59 Intake Total 3680 1530 1096.667 Output Total 900 70 Balance 2780 1460 1096.667 Weight (lbs) 101.151 kg 100.244 kg Intake: Intake, IV Amount 2610 450 1096.667 Dextrose 5% 1,000 ml @ 40 996.667 mls/hr IV .Q24H [facility] Rx#: [id number] Fluconazole 200mg/100mL 100 200 mg In 100 ml @ 100 mls/hr IV Q24HR [facility] Rx#: [id number] Multivitamin Inj 10 ml In 2160 Dextrose 70% 820 ml In Amino Acids 10% 1,180 ml In Intralipids 20% 150 ml @ 90 mls/hr IV .Q24H [facility] Rx#:[id number] Piperacillin Sodium/ 200 100 100 Tazobact 4.5 gm In Sodium Chloride 0.9% 100 ml @ 100 mls/hr IV Q6HR [facility] Rx #:[id number] Vancomycin HCl 1 gm In 250 250 Sodium Chloride 0.9% 250 ml @ 165 mls/hr IV Q24HR@ 0800,2000 [facility] Rx#: [id number] TPN/PPN 720 1080 Other 350 Output: Gastric Drainage 200 Drainage 70 Left Lower Abdomen 40 Right Lower Abdomen 30 Urine/Stool Mix 700 Other: # Voids 5 # Bowel Movements 0 Stool Characteristics Liquid Active Medications: Current Medications Albuterol/Ipratropium (Duoneb Neb) 3 ml HHN Q4HRT [facility] Stop: 06/15/17 14:59 Last Admin: 04/22/17 12:44 Dose: 3 ml Budesonide (Pulmicort) 0.5 mg HHN BIDRT [facility] Stop: 06/15/17 18:59 Last Admin: 04/22/17 07:48 Dose: 0.5 mg Piperacillin Sod/Tazobactam (Sod 4.5 gm/ Sodium Chloride) 100 mls @ 100 mls/hr IV Q6HR [facility] Stop: 06/14/17 00:00 Last Admin: 04/22/17 13:15 Dose: 100 mls/hr Fluconazole (Diflucan) 200 mg in 100 mls @ 100 mls/hr IV Q24HR [facility] Stop: 06/15/17 22:59 Last Infusion: 04/22/17 00:00 Dose: Infused Vancomycin HCl 1 gm/ Sodium (Chloride) 250 mls @ 165 mls/hr IV Q24HR@0800,2000 [facility] Stop: 06/17/17 19:59 Last Admin: 04/22/17 10:55 Dose: 165 mls/hr Multivitamins/Minerals 10 ml/Dextrose/ Amino Acids/Electrolytes/ Fat Emulsion Intravenous 2,160 mls @ 90 mls/hr IV .Q24H [facility] Stop: 06/19/17 15:59 Last Admin: 04/21/17 17:11 Dose: 90 mls/hr Dextrose (D5w) 1,000 mls @ 40 mls/hr IV .Q24H [facility] Stop: 06/20/17 11:59 Last Admin: 04/22/17 13:08 Dose: 40 mls/hr Insulin Aspart (Novolog Insulin Sliding Scale) 0 units SUBQ Q6HR [facility] PRN Reason: Protocol Stop: 06/16/17 17:59 Last Admin: 04/22/17 13:06 Dose: 2 units Lorazepam (Ativan) 1 mg IVP Q4HR PRN; Protocol PRN Reason: AGITATION Stop: 06/17/17 13:27 Last Admin: 04/22/17 06:36 Dose: 1 mg Miscellaneous (Probiotic Screen) 1 ea MC PRN PRN PRN Reason: PROTOCOL Stop: 06/14/17 09:39 Miscellaneous (Vancomycin Iv Per Pharmacy) 1 ea MC PRN [facility] Stop: 06/14/17 12:44 Miscellaneous (Clinical Monitoring) 1 ea MC DAILY PRN PRN Reason: RENAL Stop: 06/15/17 12:48 Miscellaneous (Tpn Per Pharmacy) 1 ea MC PRN PRN PRN Reason: PROTOCOL Stop: 06/16/17 12:28 Morphine Sulfate (Morphine) 4 mg IVP Q2HR PRN PRN Reason: Pain (Moderate) Stop: 06/15/17 10:53 Last Admin: 04/22/17 04:00 Dose: 4 mg Ondansetron HCl (Zofran) 4 mg IVP Q6H PRN PRN Reason: Nausea / Vomiting Stop: 06/13/17 20:08 Pantoprazole Sodium (Protonix) 40 mg IVP DAILY [facility] Stop: 06/15/17 08:59 Last Admin: 04/22/17 10:59 Dose: 40 mg General: no acute distress, well developed, well nourished HEENT: atraumatic, no normocephalic, no PERRLA Neck: supple, no thyromegaly, no lymphadenopathy Cardiovascular: S1S2, regular Lungs: clear to auscultation bilaterally, clear to percussion Abdomen: soft, tender, distended, no mass Extremities: no cyanosis, no clubbing, no edema Neurological: awake, alert Skin: intact - Procedures Procedures: Procedures Procedure Code Date BYPASS SIGMOID COLON TO CUTANEOUS, OPEN APPROACH [id number] 04/14/17 PARTIAL REMOVAL OF COLON 39924 04/14/17 RESECTION OF SIGMOID COLON, OPEN APPROACH 1GGT1DW 04/14/17 RESPIRATORY VENTILATION, LESS THAN 24 CONSECUTIVE HOURS [id number] 04/14/17 VENT MGMT INPAT INIT DAY 78642 04/14/17 Infectious Disease Assmt/Plan - Problem List Patient Problems: All Active Problems Abscess of sigmoid colon due to diverticulitis (Acute) K57.20 Diverticulitis of sigmoid colon (Acute) K57.32 Obesity (Acute) E66.9 Perforation of sigmoid colon due to diverticulitis (Acute) K57.20 Peritonitis (acute) generalized (Acute) K65.0 - Assessment Assessment: 1. Sepsis. 2. Diverticulitis, sigmoid diverticula to with support complicated by multiple abscesses and peritonitis. 3. Post operatively, on ventilator. 4. Peritonitis. Likely polymicrobial. 5. History of asthma. 6. History of arthritis. 7. Distended abdomen likely post operative ileus. Rule out small bowel obstruction. 8. SEKOU. 9. Post op, paralytic ileus. 10. Wrist cellulitis, worse on left with destruction of bones. X ray of the left wrist suggested osteomyelitis. Plan: Continue Zosyn, and diflucan. Dc vancomycin Sepsis workup was performed and follow the sepsis workup. Follow-up CBC and CMP in the morning. Otherwise, for fever will use ice packs and if needed Cooling blanket. KUB in AM. Nutritional Asmnt/Malnutr-PDOC - Dietary Evaluation Malnutrition Findings (Please click <Entered> for more info): Nutritional Asmnt/Malnutrition Start: 04/19/17 14: 21 Text: Status: Complete Freq: Document 04/19/17 14:21 GSUN (Rec: 04/19/17 14:58 [id number]) Nutritional Asmnt/Malnutrition Patient General Information Nutritional Screening Moderate Risk Screening Diagnosis Sepsis, diverticulitis, peritonitis Pertinent Medical Hx/Surgical Hx Asthma, diverticulosis Subjective Information 56 year old male frome home. Pt was restless, moving extremities during visit. 04/14 : sigmoid colectomy, end colostomy, abscess drainage, diffuse peritontis. 04/16: pt started PPN. 04/17: central line and started on TPN. Spoke to family at bedside, explained parenteral nutrition , family undersoto and has no further question at this time. Weight discrepancies noted in EMR, family does not know UBW , estimated nutritional needs based Current Diet Order/ Nutrition Support TPN D10% AA4.25% at 90ml/hr with IL20% 150ml, providing 1401.6kcal Pertinent Medications Dilaudid, Novolog, Culturelle, Magnesium Sulfate, Vancomycin , TPN, Morphine, Multivitamins , Zofran, Protonix, Nacl0.9% Pertinent Labs 04/14: triglycerides 106, total bilirubin 1.1H, glucose 116H 04/17: magnesium 2.5, phsophorus 3.2 04/19: magnesium 1.8L, phosphorus 2.4L, BUN 28H, creatinine 1.3, glucose 154H, total bilirubin 1.1H, triglycerides 238H Nutritional Hx/Data Height 1.7 m Height (Calculated Centimeters) 170.2 Current Weight (lbs) 95.254 kg Weight (Calculated Kilograms) 95.3 Weight (Calculated Grams) 99245.4 [place] Body Weight 148 Weight Status Overweight GI Symptoms Skin Integrity/Comment: [place] 14. Facial non-pitting 1+, bilateral hands pitting 1+ Estimated Nutritional Goals Calories/Kcals/Kg IBW 148/67.3kg Kcals Calculated 2018-2356kcal (30-35kcal/kg) Protein Calculated 101-135g (1.5-2g/kg) Fluid: ml Per MD Nutritional Problem 1. Problem Problem Altered GI function related to Etiology abscess and perforation of sigmoid colon due to diverticulitis aeb Signs/Symptoms: post-operative, on TPN Intervention/Recommendation Comments 1. Recommend TPN D15% AA5.5% at 100ml/hr with IL20% 150ml, providing 2400ml total volume, 2052kcal, 132g protein, meeting 100% of estimated nutritional needs. Carb load 2 .6mg/kg/min (using 210lb adm weight). 2. Monitor for possible refeeding syndrome, 04/18: phsophorus 2.1L, 04/19: magnesium 1.9. 3. Monitor triglycerides, total bilirubin, glucose, renal labs. Expected Outcomes/Goals Expected Outcomes/Goals 1. Pt to meet 100% of estimated nutritional needs on TPN.
--- NOTE | 2017-04-22 14:38 | Infectious Disease Prog Note ---
Infectious Disease Subjective - Review of Systems Service Date: 04/22/17 Subjective: Doing better, there is no fever. pas been passing gas and abdomen is less distended. Infectious Disease Objective - Results Result Diagrams: 04/22/17 05:04 04/22/17 05:04 Recent Labs: Laboratory Last Values WBC 8.6 Th/cmm (4.8-10.8) D 04/22/17 05:04 RBC 3.07 Mil/cmm (4.30-5.70) L 04/22/17 05:04 Hgb 7.9 gm/dL (13.2-17.3) L* 04/22/17 05:04 Hct 24.8 % (39.0-49.0) L 04/22/17 05:04 MCV 80.7 fl (80-99) 04/22/17 05:04 MCH 25.7 pg (26.0-30.0) L 04/22/17 05:04 MCHC Differential 31.9 pg (28.0-36.0) 04/22/17 05:04 RDW 15.6 % (11.5-20.0) 04/22/17 05:04 Plt Count 642 Th/cmm (150-400) H 04/22/17 05:04 MPV 7.7 fl 04/22/17 05:04 Neutrophils % 84.5 % (40.0-80.0) H 04/20/17 07:00 Band Neutrophils % 3 % (0-10) 04/19/17 04:40 Lymphocytes % 9.6 % (20.0-50.0) L 04/20/17 07:00 Monocytes % 3.8 % (2.0-10.0) 04/20/17 07:00 Eosinophils % 1.7 % (0.0-5.0) 04/20/17 07:00 Basophils % 0.4 % (0.0-2.0) 04/20/17 07:00 Neutrophils (Manual) 79 % (40-80) 04/22/17 05:04 Lymphocytes 14 % (20-50) L 04/22/17 05:04 Monocytes 6 % (2-10) 04/22/17 05:04 Eosinophils 1 % (0-5) 04/19/17 04:40 Metamyelocytes 1 % (0-0) H 04/22/17 05:04 Platelet Estimate INCREASED PLATELETS (NORMAL) 04/22/17 05:04 Platelet Morphology NORMAL (NORMAL) 04/22/17 05:04 Anisocytosis 1+ 04/22/17 05:04 RBC Morph Micro Appear ABNORMAL (NORMAL) 04/22/17 05:04 ESR > 140 mm/hr (0-20) H 04/20/17 07:00 PT 12.9 SECONDS (9.5-11.5) H 04/14/17 14:55 INR 1.23 (0.5-1.4) 04/14/17 14:55 PTT (Actin FS) 29.8 SECONDS (26.0-38.0) 04/14/17 14:55 Specimen Source Arterial 04/20/17 12:13 Sample Site RB 04/20/17 12:13 pH 7.51 (7.35-7.45) H 04/20/17 12:13 pCO2 32.0 mmHg (35.0-45.0) L 04/20/17 12:13 pO2 116.0 mmHg (80.0-100.0) H 04/20/17 12:13 HCO3 27.2 mEq/L (20.0-26.0) H 04/20/17 12:13 Base Excess 2.9 mEq/L (-3.0-3.0) 04/20/17 12:13 O2 Saturation 99.0 % (92.0-100.0) 04/20/17 12:13 Chau Test YES 04/19/17 09:00 Vent Rate NA 04/19/17 09:00 Inspired O2 32 04/20/17 12:13 Tidal Volume NA 04/19/17 09:00 PEEP NA 04/19/17 09:00 Pressure (ins/psv/peep) NA 04/19/17 09:00 Critical Value PW 04/20/17 12:13 Sodium 148 mEq/L (136-145) H 04/22/17 05:04 Potassium 3.4 mEq/L (3.5-5.1) L 04/22/17 05:04 Chloride 120 mEq/L (98-107) H 04/22/17 05:04 Carbon Dioxide 24.0 mEq/L (21.0-31.0) 04/22/17 05:04 Anion Gap 7.4 (7.0-16.0) 04/22/17 05:04 BUN 23 mg/dL (7-25) 04/22/17 05:04 Creatinine 1.8 mg/dL (0.7-1.3) H 04/22/17 05:04 Est GFR ( Amer) 50.3 ml/min (>90) 04/22/17 05:04 Est GFR (Non-Af Amer) 41.5 ml/min 04/22/17 05:04 BUN/Creatinine Ratio 12.8 04/22/17 05:04 Glucose 186 mg/dL (70-105) H 04/22/17 05:04 POC Glucose 177 MG/DL (70 - 105) H 04/22/17 11:57 Hemoglobin A1c % 6.7 % (4.0-6.0) H 04/22/17 05:04 Whole Bld Lactic Acid 1.53 mmol/L (0.60-1.99) 04/14/17 14:55 Uric Acid 3.6 mg/dL (4.4-7.6) L 04/20/17 07:00 Calcium 8.7 mg/dL (8.6-10.3) 04/22/17 05:04 Phosphorus 3.9 mg/dL (2.5-5.0) 04/22/17 05:04 Magnesium 2.0 mg/dL (1.9-2.7) 04/22/17 05:04 Total Bilirubin 0.7 mg/dL (0.3-1.0) 04/22/17 05:04 AST 51 U/L (13-39) H 04/22/17 05:04 ALT 28 U/L (7-52) 04/22/17 05:04 Alkaline Phosphatase 60 U/L (34-104) 04/22/17 05:04 Creatine Kinase 136 U/L (30-223) 04/14/17 14:55 Troponin I 0.01 ng/mL (0.01-0.05) 04/22/17 05:04 C-Reactive Protein 28.9 mg/dL (0.0-0.9) H 04/20/17 07:00 B-Natriuretic Peptide 85.5 pg/mL (5.0-100.0) 04/14/17 14:55 Total Protein 6.0 gm/dL (6.0-8.3) 04/22/17 05:04 Albumin 2.4 gm/dL (4.2-5.5) L 04/22/17 05:04 Globulin 3.6 gm/dL 04/22/17 05:04 Albumin/Globulin Ratio 0.7 (1.0-1.8) L 04/22/17 05:04 Prealbumin 8 mg/dL (10-36) L 04/19/17 19:20 Triglycerides 238 mg/dL (<150) H 04/19/17 04:40 Cholesterol 80 mg/dL (<200) 04/19/17 04:40 LDL Cholesterol Direct 38 mg/dL (75-193) L 04/14/17 14:55 HDL Cholesterol 13 mg/dL (23-92) L 04/14/17 14:55 Amylase 31 U/L (29-103) 04/14/17 14:55 Lipase 15 U/L (11-82) 04/14/17 14:55 Urine Source CLEAN C 04/14/17 15:05 Urine Color ORANGE 04/14/17 15:05 Urine Clarity SLIGHT HAZY (CLEAR) 04/14/17 15:05 Urine pH 5.5 04/14/17 15:05 Ur Specific [place] 1.020 (1.005-1.030) 04/14/17 15:05 Urine Protein 100 mg/dL (NEGATIVE) H 04/14/17 15:05 Urine Glucose (UA) NEGATIVE mg/dL (NEGATIVE) 04/14/17 15:05 Urine Ketones 15 mg/dL (NEGATIVE) H 04/14/17 15:05 Urine Blood SMALL (NEGATIVE) H 04/14/17 15:05 Urine Nitrate NEGATIVE (NEGATIVE) 04/14/17 15:05 Urine Bilirubin SMALL (NEGATIVE) H 04/14/17 15:05 Urine Urobilinogen 1.0 E.U./dL (0.2 - 1.0) 04/14/17 15:05 Ur Leukocyte Esterase NEGATIVE (NEGATIVE) 04/14/17 15:05 Urine RBC 2-5 /hpf (0-5) H 04/14/17 15:05 Urine WBC 0-2 /hpf (0-5) 04/14/17 15:05 Ur Epithelial Cells OCCASIONAL /lpf (FEW) 04/14/17 15:05 Amorphous Sediment MANY URATES (NONE SEEN) 04/14/17 15:05 Urine Bacteria 1+ /hpf (NONE SEEN) H 04/14/17 15:05 Vancomycin Trough 13.5 ug/mL (10-20) 04/19/17 19:20 Blood Type O POSITIVE 04/14/17 20:36 Antibody Screen NEGATIVE 04/14/17 20:36 - Physical Exam Vitals and I&O: Vital Signs Temp 98.4 F 04/22/17 04:00 Pulse 112 04/22/17 12:45 Resp 20 04/22/17 12:45 BP 138/62 04/22/17 04:00 Pulse Ox 100 04/22/17 12:45 Intake & Output 04/21/17 04/22/17 04/22/17 18:59 06:59 18:59 Intake Total 3680 1530 1096.667 Output Total 900 70 Balance 2780 1460 1096.667 Weight (lbs) 101.151 kg 100.244 kg Intake: Intake, IV Amount 2610 450 1096.667 Dextrose 5% 1,000 ml @ 40 996.667 mls/hr IV .Q24H [facility] Rx#: [id number] Fluconazole 200mg/100mL 100 200 mg In 100 ml @ 100 mls/hr IV Q24HR [facility] Rx#: [id number] Multivitamin Inj 10 ml In 2160 Dextrose 70% 820 ml In Amino Acids 10% 1,180 ml In Intralipids 20% 150 ml @ 90 mls/hr IV .Q24H [facility] Rx#:[id number] Piperacillin Sodium/ 200 100 100 Tazobact 4.5 gm In Sodium Chloride 0.9% 100 ml @ 100 mls/hr IV Q6HR [facility] Rx #:[id number] Vancomycin HCl 1 gm In 250 250 Sodium Chloride 0.9% 250 ml @ 165 mls/hr IV Q24HR@ 0800,2000 [facility] Rx#: [id number] TPN/PPN 720 1080 Other 350 Output: Gastric Drainage 200 Drainage 70 Left Lower Abdomen 40 Right Lower Abdomen 30 Urine/Stool Mix 700 Other: # Voids 5 # Bowel Movements 0 Stool Characteristics Liquid Active Medications: Current Medications Albuterol/Ipratropium (Duoneb Neb) 3 ml HHN Q4HRT [facility] Stop: 06/15/17 14:59 Last Admin: 04/22/17 12:44 Dose: 3 ml Budesonide (Pulmicort) 0.5 mg HHN BIDRT [facility] Stop: 06/15/17 18:59 Last Admin: 04/22/17 07:48 Dose: 0.5 mg Piperacillin Sod/Tazobactam (Sod 4.5 gm/ Sodium Chloride) 100 mls @ 100 mls/hr IV Q6HR [facility] Stop: 06/14/17 00:00 Last Admin: 04/22/17 13:15 Dose: 100 mls/hr Fluconazole (Diflucan) 200 mg in 100 mls @ 100 mls/hr IV Q24HR [facility] Stop: 06/15/17 22:59 Last Infusion: 04/22/17 00:00 Dose: Infused Multivitamins/Minerals 10 ml/Dextrose/ Amino Acids/Electrolytes/ Fat Emulsion Intravenous 2,160 mls @ 90 mls/hr IV .Q24H [facility] Stop: 06/19/17 15:59 Last Admin: 04/21/17 17:11 Dose: 90 mls/hr Dextrose (D5w) 1,000 mls @ 40 mls/hr IV .Q24H [facility] Stop: 06/20/17 11:59 Last Admin: 04/22/17 13:08 Dose: 40 mls/hr Insulin Aspart (Novolog Insulin Sliding Scale) 0 units SUBQ Q6HR [facility] PRN Reason: Protocol Stop: 06/16/17 17:59 Last Admin: 04/22/17 13:06 Dose: 2 units Lorazepam (Ativan) 1 mg IVP Q4HR PRN; Protocol PRN Reason: AGITATION Stop: 06/17/17 13:27 Last Admin: 04/22/17 06:36 Dose: 1 mg Miscellaneous (Probiotic Screen) 1 ea PRN PRN PRN Reason: PROTOCOL Stop: 06/14/17 09:39 Miscellaneous (Clinical Monitoring) 1 ea DAILY PRN PRN Reason: RENAL Stop: 06/15/17 12:48 Miscellaneous (Tpn Per Pharmacy) 1 ea PRN PRN PRN Reason: PROTOCOL Stop: 06/16/17 12:28 Morphine Sulfate (Morphine) 4 mg IVP Q2HR PRN PRN Reason: Pain (Moderate) Stop: 06/15/17 10:53 Last Admin: 04/22/17 04:00 Dose: 4 mg Ondansetron HCl (Zofran) 4 mg IVP Q6H PRN PRN Reason: Nausea / Vomiting Stop: 06/13/17 20:08 Pantoprazole Sodium (Protonix) 40 mg IVP DAILY [facility] Stop: 06/15/17 08:59 Last Admin: 04/22/17 10:59 Dose: 40 mg General: no acute distress, well developed, well nourished HEENT: atraumatic, normocephalic, PERRLA, EOMI, moist mucous membrane Neck: supple, no thyromegaly, no lymphadenopathy, no rigid, no tracheostomy Cardiovascular: S1S2, regular Lungs: clear to auscultation bilaterally, clear to percussion Abdomen: soft, drain (ROLANDO x 1), bowel sounds, no tender, no distended Extremities: no cyanosis, no clubbing, no edema Neurological: awake, alert, oriented Skin: intact - Procedures Procedures: Procedures Procedure Code Date BYPASS SIGMOID COLON TO CUTANEOUS, OPEN APPROACH [id number] 04/14/17 PARTIAL REMOVAL OF COLON 28274 04/14/17 RESECTION OF SIGMOID COLON, OPEN APPROACH [id number] 04/14/17 RESPIRATORY VENTILATION, LESS THAN 24 CONSECUTIVE HOURS [id number] 04/14/17 VENT MGMT INPAT INIT DAY 72972 04/14/17 Infectious Disease Assmt/Plan - Problem List Patient Problems: All Active Problems Abscess of sigmoid colon due to diverticulitis (Acute) K57.20 Diverticulitis of sigmoid colon (Acute) K57.32 Obesity (Acute) E66.9 Perforation of sigmoid colon due to diverticulitis (Acute) K57.20 Peritonitis (acute) generalized (Acute) K65.0 - Assessment Assessment: 1. Sepsis. improved. 2. Diverticulitis, sigmoid diverticula to with support complicated by multiple abscesses and peritonitis. 3. Post operatively, on ventilator. 4. Peritonitis. Likely polymicrobial. 5. History of asthma. 6. History of arthritis. 7. Distended abdomen likely post operative ileus. Rule out small bowel obstruction. 8. SEKOU. 9. Post op, paralytic ileus. improved. 10. Wrist cellulitis, worse on left with destruction of bones. X ray of the left wrist suggested osteomyelitis. Plan: Continue Zosyn, and diflucan. Dc vancomycin. Sepsis workup was performed and follow the sepsis workup. Nutritional Asmnt/Malnutr-PDOC - Dietary Evaluation Malnutrition Findings (Please click <Entered> for more info): Nutritional Asmnt/Malnutrition Start: 04/19/17 14: 21 Text: Status: Complete Freq: Document 04/19/17 14:21 SHAYAN (Rec: 04/19/17 14:58 [id number]) Nutritional Asmnt/Malnutrition Patient General Information Nutritional Screening Moderate Risk Screening Diagnosis Sepsis, diverticulitis, peritonitis Pertinent Medical Hx/Surgical Hx Asthma, diverticulosis Subjective Information 56 year old male frome home. Pt was restless, moving extremities during visit. 04/14 : sigmoid colectomy, end colostomy, abscess drainage, diffuse peritontis. 04/16: pt started PPN. 04/17: central line and started on TPN. Spoke to family at bedside, explained parenteral nutrition , family undersoto and has no further question at this time. Weight discrepancies noted in EMR, family does not know UBW , estimated nutritional needs based Current Diet Order/ Nutrition Support TPN D10% AA4.25% at 90ml/hr with IL20% 150ml, providing 1401.6kcal Pertinent Medications Dilaudid, Novolog, Culturelle, Magnesium Sulfate, Vancomycin , TPN, Morphine, Multivitamins , Zofran, Protonix, Nacl0.9% Pertinent Labs 04/14: triglycerides 106, total bilirubin 1.1H, glucose 116H 04/17: magnesium 2.5, phsophorus 3.2 04/19: magnesium 1.8L, phosphorus 2.4L, BUN 28H, creatinine 1.3, glucose 154H, total bilirubin 1.1H, triglycerides 238H Nutritional Hx/Data Height 1.7 m Height (Calculated Centimeters) 170.2 Current Weight (lbs) 95.254 kg Weight (Calculated Kilograms) 95.3 Weight (Calculated Grams) 51879.4 [place] Body Weight 148 Weight Status Overweight GI Symptoms Skin Integrity/Comment: [place] 14. Facial non-pitting 1+, bilateral hands pitting 1+ Estimated Nutritional Goals Calories/Kcals/Kg IBW 148/67.3kg Kcals Calculated 2018-2356kcal (30-35kcal/kg) Protein Calculated 101-135g (1.5-2g/kg) Fluid: ml Per MD Nutritional Problem 1. Problem Problem Altered GI function related to Etiology abscess and perforation of sigmoid colon due to diverticulitis aeb Signs/Symptoms: post-operative, on TPN Intervention/Recommendation Comments 1. Recommend TPN D15% AA5.5% at 100ml/hr with IL20% 150ml, providing 2400ml total volume, 2052kcal, 132g protein, meeting 100% of estimated nutritional needs. Carb load 2 .6mg/kg/min (using 210lb adm weight). 2. Monitor for possible refeeding syndrome, 04/18: phsophorus 2.1L, 04/19: magnesium 1.9. 3. Monitor triglycerides, total bilirubin, glucose, renal labs. Expected Outcomes/Goals Expected Outcomes/Goals 1. Pt to meet 100% of estimated nutritional needs on TPN.
[2017-04-22] MEDS: TPN 10%-70% CUSTOM IV SCH (17:05)
--- NOTE | 2017-04-22 18:40 | General Progress Note ---
Subjective - Review of Systems Subjective: more awake and oriented, flat affect Objective - Results Result Diagrams: 04/22/17 05:04 04/22/17 05:04 Recent Labs: Laboratory Last Values WBC 8.6 Th/cmm (4.8-10.8) D 04/22/17 05:04 RBC 3.07 Mil/cmm (4.30-5.70) L 04/22/17 05:04 Hgb 7.9 gm/dL (13.2-17.3) L* 04/22/17 05:04 Hct 24.8 % (39.0-49.0) L 04/22/17 05:04 MCV 80.7 fl (80-99) 04/22/17 05:04 MCH 25.7 pg (26.0-30.0) L 04/22/17 05:04 MCHC Differential 31.9 pg (28.0-36.0) 04/22/17 05:04 RDW 15.6 % (11.5-20.0) 04/22/17 05:04 Plt Count 642 Th/cmm (150-400) H 04/22/17 05:04 MPV 7.7 fl 04/22/17 05:04 Neutrophils % 84.5 % (40.0-80.0) H 04/20/17 07:00 Band Neutrophils % 3 % (0-10) 04/19/17 04:40 Lymphocytes % 9.6 % (20.0-50.0) L 04/20/17 07:00 Monocytes % 3.8 % (2.0-10.0) 04/20/17 07:00 Eosinophils % 1.7 % (0.0-5.0) 04/20/17 07:00 Basophils % 0.4 % (0.0-2.0) 04/20/17 07:00 Neutrophils (Manual) 79 % (40-80) 04/22/17 05:04 Lymphocytes 14 % (20-50) L 04/22/17 05:04 Monocytes 6 % (2-10) 04/22/17 05:04 Eosinophils 1 % (0-5) 04/19/17 04:40 Metamyelocytes 1 % (0-0) H 04/22/17 05:04 Platelet Estimate INCREASED PLATELETS (NORMAL) 04/22/17 05:04 Platelet Morphology NORMAL (NORMAL) 04/22/17 05:04 Anisocytosis 1+ 04/22/17 05:04 RBC Morph Micro Appear ABNORMAL (NORMAL) 04/22/17 05:04 ESR > 140 mm/hr (0-20) H 04/20/17 07:00 PT 12.9 SECONDS (9.5-11.5) H 04/14/17 14:55 INR 1.23 (0.5-1.4) 04/14/17 14:55 PTT (Actin FS) 29.8 SECONDS (26.0-38.0) 04/14/17 14:55 Specimen Source Arterial 04/20/17 12:13 Sample Site RB 04/20/17 12:13 pH 7.51 (7.35-7.45) H 04/20/17 12:13 pCO2 32.0 mmHg (35.0-45.0) L 04/20/17 12:13 pO2 116.0 mmHg (80.0-100.0) H 04/20/17 12:13 HCO3 27.2 mEq/L (20.0-26.0) H 04/20/17 12:13 Base Excess 2.9 mEq/L (-3.0-3.0) 04/20/17 12:13 O2 Saturation 99.0 % (92.0-100.0) 04/20/17 12:13 Chau Test YES 04/19/17 09:00 Vent Rate NA 04/19/17 09:00 Inspired O2 32 04/20/17 12:13 Tidal Volume NA 04/19/17 09:00 PEEP NA 04/19/17 09:00 Pressure (ins/psv/peep) NA 04/19/17 09:00 Critical Value PW 04/20/17 12:13 Sodium 148 mEq/L (136-145) H 04/22/17 05:04 Potassium 3.4 mEq/L (3.5-5.1) L 04/22/17 05:04 Chloride 120 mEq/L (98-107) H 04/22/17 05:04 Carbon Dioxide 24.0 mEq/L (21.0-31.0) 04/22/17 05:04 Anion Gap 7.4 (7.0-16.0) 04/22/17 05:04 BUN 23 mg/dL (7-25) 04/22/17 05:04 Creatinine 1.8 mg/dL (0.7-1.3) H 04/22/17 05:04 Est GFR ( Amer) 50.3 ml/min (>90) 04/22/17 05:04 Est GFR (Non-Af Amer) 41.5 ml/min 04/22/17 05:04 BUN/Creatinine Ratio 12.8 04/22/17 05:04 Glucose 186 mg/dL (70-105) H 04/22/17 05:04 POC Glucose 177 MG/DL (70 - 105) H 04/22/17 11:57 Hemoglobin A1c % 6.7 % (4.0-6.0) H 04/22/17 05:04 Whole Bld Lactic Acid 1.53 mmol/L (0.60-1.99) 04/14/17 14:55 Uric Acid 3.6 mg/dL (4.4-7.6) L 04/20/17 07:00 Calcium 8.7 mg/dL (8.6-10.3) 04/22/17 05:04 Phosphorus 3.9 mg/dL (2.5-5.0) 04/22/17 05:04 Magnesium 2.0 mg/dL (1.9-2.7) 04/22/17 05:04 Total Bilirubin 0.7 mg/dL (0.3-1.0) 04/22/17 05:04 AST 51 U/L (13-39) H 04/22/17 05:04 ALT 28 U/L (7-52) 04/22/17 05:04 Alkaline Phosphatase 60 U/L (34-104) 04/22/17 05:04 Creatine Kinase 136 U/L (30-223) 04/14/17 14:55 Troponin I 0.01 ng/mL (0.01-0.05) 04/22/17 05:04 C-Reactive Protein 28.9 mg/dL (0.0-0.9) H 04/20/17 07:00 B-Natriuretic Peptide 85.5 pg/mL (5.0-100.0) 04/14/17 14:55 Total Protein 6.0 gm/dL (6.0-8.3) 04/22/17 05:04 Albumin 2.4 gm/dL (4.2-5.5) L 04/22/17 05:04 Globulin 3.6 gm/dL 04/22/17 05:04 Albumin/Globulin Ratio 0.7 (1.0-1.8) L 04/22/17 05:04 Prealbumin 8 mg/dL (10-36) L 04/19/17 19:20 Triglycerides 238 mg/dL (<150) H 04/19/17 04:40 Cholesterol 80 mg/dL (<200) 04/19/17 04:40 LDL Cholesterol Direct 38 mg/dL (75-193) L 04/14/17 14:55 HDL Cholesterol 13 mg/dL (23-92) L 04/14/17 14:55 Amylase 31 U/L (29-103) 04/14/17 14:55 Lipase 15 U/L (11-82) 04/14/17 14:55 Urine Source CLEAN C 04/14/17 15:05 Urine Color ORANGE 04/14/17 15:05 Urine Clarity SLIGHT HAZY (CLEAR) 04/14/17 15:05 Urine pH 5.5 04/14/17 15:05 Ur Specific Balfour 1.020 (1.005-1.030) 04/14/17 15:05 Urine Protein 100 mg/dL (NEGATIVE) H 04/14/17 15:05 Urine Glucose (UA) NEGATIVE mg/dL (NEGATIVE) 04/14/17 15:05 Urine Ketones 15 mg/dL (NEGATIVE) H 04/14/17 15:05 Urine Blood SMALL (NEGATIVE) H 04/14/17 15:05 Urine Nitrate NEGATIVE (NEGATIVE) 04/14/17 15:05 Urine Bilirubin SMALL (NEGATIVE) H 04/14/17 15:05 Urine Urobilinogen 1.0 E.U./dL (0.2 - 1.0) 04/14/17 15:05 Ur Leukocyte Esterase NEGATIVE (NEGATIVE) 04/14/17 15:05 Urine RBC 2-5 /hpf (0-5) H 04/14/17 15:05 Urine WBC 0-2 /hpf (0-5) 04/14/17 15:05 Ur Epithelial Cells OCCASIONAL /lpf (FEW) 04/14/17 15:05 Amorphous Sediment MANY URATES (NONE SEEN) 04/14/17 15:05 Urine Bacteria 1+ /hpf (NONE SEEN) H 04/14/17 15:05 Vancomycin Trough 13.5 ug/mL (-20) 04/19/17 19:20 Blood Type O POSITIVE 04/14/17 20:36 Antibody Screen NEGATIVE 04/14/17 20:36 - Physical Exam Vitals and I&O: Vital Signs Temp 100.3 F 04/22/17 12:00 Pulse 116 04/22/17 15:45 Resp 20 04/22/17 15:45 BP 135/65 04/22/17 12:00 Pulse Ox 96 04/22/17 15:45 Intake & Output 04/21/17 04/22/17 04/22/17 18:59 06:59 18:59 Intake Total 3680 1530 3347.667 Output Total 900 70 Balance 2780 1460 3347.667 Weight (lbs) 101.151 kg 100.244 kg Intake: Intake, IV Amount 2610 450 3347.667 Dextrose 5% 1,000 ml @ 40 996.667 mls/hr IV .Q24H [facility] Rx#: [id number] Fluconazole 200mg/100mL 100 200 mg In 100 ml @ 100 mls/hr IV Q24HR [facility] Rx#: [id number] Multivitamin Inj 10 ml In 2160 2151 Dextrose 70% 820 ml In Amino Acids 10% 1,180 ml In Intralipids 20% 150 ml @ 90 mls/hr IV .Q24H [facility] Rx#:[id number] Piperacillin Sodium/ 200 100 200 Tazobact 4.5 gm In Sodium Chloride 0.9% 100 ml @ 100 mls/hr IV Q6HR [facility] Rx #:[id number] Vancomycin HCl 1 gm In 250 250 Sodium Chloride 0.9% 250 ml @ 165 mls/hr IV Q24HR@ 0800,2000 [facility] Rx#: [id number] TPN/PPN 720 1080 Other 350 Output: Gastric Drainage 200 Drainage 70 Left Lower Abdomen 40 Right Lower Abdomen 30 Urine/Stool Mix 700 Other: # Voids 5 # Bowel Movements 0 Stool Characteristics Liquid Liquid Brown Green Active Medications: Current Medications Acetaminophen (Tylenol) 650 mg PO Q6H PRN PRN Reason: FEVER/PAIN Stop: 06/21/17 17:45 Albuterol/Ipratropium (Duoneb Neb) 3 ml HHN Q4HRT [facility] Stop: 06/15/17 14:59 Last Admin: 04/22/17 15:45 Dose: 3 ml Budesonide (Pulmicort) 0.5 mg HHN BIDRT [facility] Stop: 06/15/17 18:59 Last Admin: 04/22/17 07:48 Dose: 0.5 mg Piperacillin Sod/Tazobactam (Sod 4.5 gm/ Sodium Chloride) 100 mls @ 100 mls/hr IV Q6HR [facility] Stop: 06/14/17 00:00 Last Admin: 04/22/17 17:16 Dose: 100 mls/hr Fluconazole (Diflucan) 200 mg in 100 mls @ 100 mls/hr IV Q24HR [facility] Stop: 06/15/17 22:59 Last Infusion: 04/22/17 00:00 Dose: Infused Multivitamins/Minerals 10 ml/Dextrose/ Amino Acids/Electrolytes/ Fat Emulsion Intravenous 2,160 mls @ 90 mls/hr IV .Q24H [facility] Stop: 06/19/17 15:59 Last Admin: 04/22/17 17:05 Dose: 90 mls/hr Dextrose (D5w) 1,000 mls @ 40 mls/hr IV .Q24H [facility] Stop: 06/20/17 11:59 Last Admin: 04/22/17 13:08 Dose: 40 mls/hr Insulin Aspart (Novolog Insulin Sliding Scale) 0 units SUBQ Q6HR ARIAN PRN Reason: Protocol Stop: 06/16/17 17:59 Last Admin: 04/22/17 17:13 Dose: 2 units Lorazepam (Ativan) 1 mg IVP Q4HR PRN; Protocol PRN Reason: AGITATION Stop: 06/17/17 13:27 Last Admin: 04/22/17 06:36 Dose: 1 mg Miscellaneous (Probiotic Screen) 1 ea PRN PRN PRN Reason: PROTOCOL Stop: 06/14/17 09:39 Miscellaneous (Clinical Monitoring) 1 ea DAILY PRN PRN Reason: RENAL Stop: 06/15/17 12:48 Miscellaneous (Tpn Per Pharmacy) 1 ea PRN PRN PRN Reason: PROTOCOL Stop: 06/16/17 12:28 Morphine Sulfate (Morphine) 4 mg IVP Q2HR PRN PRN Reason: Pain (Moderate) Stop: 06/15/17 10:53 Last Admin: 04/22/17 04:00 Dose: 4 mg Ondansetron HCl (Zofran) 4 mg IVP Q6H PRN PRN Reason: Nausea / Vomiting Stop: 06/13/17 20:08 Pantoprazole Sodium (Protonix) 40 mg IVP DAILY ARIAN Stop: 06/15/17 08:59 Last Admin: 04/22/17 10:59 Dose: 40 mg General: Alert, Oriented x3, Cooperative HEENT: Atraumatic, PERRLA, EOMI, Mucous membr. moist/pink Neck: Supple, +2 carotid pulse wo bruit Cardiovascular: Regular rate, Normal S1, Normal S2 Lungs: Other (diffuse rhonchi.) Abdomen: Soft, Distended, Other (left colostomy bag with the serosanguineous discharge. ROLANDO drain right side.) Extremities: Other (no edema and cyanosis.) Neurological: Normal speech, Other (plan to understand conversation and moving his head up and down) Psych/Mental Status: Other (gets agitated at times.) - Procedures Procedures: Procedures Procedure Code Date BYPASS SIGMOID COLON TO CUTANEOUS, OPEN APPROACH [id number] 04/14/17 PARTIAL REMOVAL OF COLON 32301 04/14/17 RESECTION OF SIGMOID COLON, OPEN APPROACH [id number] 04/14/17 RESPIRATORY VENTILATION, LESS THAN 24 CONSECUTIVE HOURS [id number] 04/14/17 VENT MGMT INPAT INIT DAY 47865 04/14/17 Assessment/Plan - Problem List Patient Problems: All Active Problems Abscess of sigmoid colon due to diverticulitis (Acute) K57.20 Diverticulitis of sigmoid colon (Acute) K57.32 Obesity (Acute) E66.9 Perforation of sigmoid colon due to diverticulitis (Acute) K57.20 Peritonitis (acute) generalized (Acute) K65.0 - Assessment Assessment: POD#8; s/p ex lap, sigmoid colectomy, drainage of peritonitis, lysis adhesions , ROLANDO drain placement 04/14 more awake and oriented, flat affect resp stable continue IVfluids fever intermittently, normal WBC TPNutritional support ROLANDO drain expected output adequate urine output; BUN/Creat downtrending, renal f/u dvt prophylaxis Lovenox SQ supportive care.... s/w family guarded prognosis. colostomy intact, mildly dusky mucosa. CT results noted 04/20. infected abd wound, laura removed, and wound opened and packed, consider wound vac continue iv abx. Nutritional Asmnt/Malnutr-PDOC - Dietary Evaluation Malnutrition Findings (Please click <Entered> for more info): Nutritional Asmnt/Malnutrition Start: 04/19/17 14: 21 Text: Status: Complete Freq: Document 04/19/17 14:21 SHAYAN (Rec: 04/19/17 14:58 [id number]) Nutritional Asmnt/Malnutrition Patient General Information Nutritional Screening Moderate Risk Screening Diagnosis Sepsis, diverticulitis, peritonitis Pertinent Medical Hx/Surgical Hx Asthma, diverticulosis Subjective Information 56 year old male frome home. Pt was restless, moving extremities during visit. 04/14 : sigmoid colectomy, end colostomy, abscess drainage, diffuse peritontis. 04/16: pt started PPN. 04/17: central line and started on TPN. Spoke to family at bedside, explained parenteral nutrition , family undersoto and has no further question at this time. Weight discrepancies noted in EMR, family does not know UBW , estimated nutritional needs based Current Diet Order/ Nutrition Support TPN D10% AA4.25% at 90ml/hr with IL20% 150ml, providing 1401.6kcal Pertinent Medications Dilaudid, Novolog, Culturelle, Magnesium Sulfate, Vancomycin , TPN, Morphine, Multivitamins , Zofran, Protonix, Nacl0.9% Pertinent Labs 04/14: triglycerides 106, total bilirubin 1.1H, glucose 116H 04/17: magnesium 2.5, phsophorus 3.2 04/19: magnesium 1.8L, phosphorus 2.4L, BUN 28H, creatinine 1.3, glucose 154H, total bilirubin 1.1H, triglycerides 238H Nutritional Hx/Data Height 1.7 m Height (Calculated Centimeters) 170.2 Current Weight (lbs) 95.254 kg Weight (Calculated Kilograms) 95.3 Weight (Calculated Grams) 37523.4 [place] Body Weight 148 Weight Status Overweight GI Symptoms Skin Integrity/Comment: Gilmer 14. Facial non-pitting 1+, bilateral hands pitting 1+ Estimated Nutritional Goals Calories/Kcals/Kg IBW 148/67.3kg Kcals Calculated 2018-2356kcal (30-35kcal/kg) Protein Calculated 101-135g (1.5-2g/kg) Fluid: ml Per MD Nutritional Problem 1. Problem Problem Altered GI function related to Etiology abscess and perforation of sigmoid colon due to diverticulitis aeb Signs/Symptoms: post-operative, on TPN Intervention/Recommendation Comments 1. Recommend TPN D15% AA5.5% at 100ml/hr with IL20% 150ml, providing 2400ml total volume, 2052kcal, 132g protein, meeting 100% of estimated nutritional needs. Carb load 2 .6mg/kg/min (using 210lb adm weight). 2. Monitor for possible refeeding syndrome, 04/18: phsophorus 2.1L, 04/19: magnesium 1.9. 3. Monitor triglycerides, total bilirubin, glucose, renal labs. Expected Outcomes/Goals Expected Outcomes/Goals 1. Pt to meet 100% of estimated nutritional needs on TPN.
[2017-04-22] MEDS: Fluconazole 200mg/100mL 200 MG/100 ML BAG IV SCH (22:37)
[2017-04-23] MEDS: INSULIN ASPART SLIDING SCALE 100 UNITS/ML UNIT SUBQ SCH ×4 (00:18→17:50)
[2017-04-23] MEDS: Morphine Sulfate 4 mg/mL 1mL Syr IVP PRN ×3 (03:03→15:54)
[2017-04-23] MEDS: Albuterol/Ipratropium Neb 3 ML AERS HHN SCH ×6 (03:09→22:58)
[2017-04-23 06:14] LABS: % BASOPHILS 0.4 % (0.0-2.0); % EOSINOPHILS 1.5 % (0.0-5.0); % LYMPHOCYTES 11.2 % (20.0-50.0); % MONOCYTES 5.9 % (2.0-10.0); HEMATOCRIT 24.4 % (39.0-49.0); HEMOGLOBIN 8.1 gm/dL (13.2-17.3); MEAN CORPUSCULAR HEMOGLOBIN 26.2 pg (26.0-30.0); MEAN CORPUSCULAR HGB CONC 33.2 pg (28.0-36.0); MEAN PLATELET VOLUME 7.7 fl; NEUTROPHILE ABSOLUTE 8.5 Th/cmm (1.8-8.0); PLATELET COUNT 627 Th/cmm (150-400); RED BLOOD COUNT 3.09 Mil/cmm (4.30-5.70); RED CELL DISTRIBUTION WIDTH 15.5 % (11.5-20.0)
[2017-04-23 06:17] LABS: WHITE BLOOD COUNT 10.5 Th/cmm (4.8-10.8)
[2017-04-23 06:40] LABS: ALB/GLOB RATIO 0.6 (1.0-1.8); ANION GAP 8.5 (7.0-16.0); BILIRUBIN,TOTAL 0.7 mg/dL (0.3-1.0); BUN/CREATININE RATIO 13.3; CALCIUM SERUM 8.8 mg/dL (8.6-10.3); CARBON DIOXIDE 24.9 mEq/L (21.0-31.0); CREATININE - SERUM 1.8 mg/dL (0.7-1.3); MAGNESIUM 1.9 mg/dL (1.9-2.7); PHOSPHOROUS 3.5 mg/dL (2.5-5.0); POTASSIUM SERUM 3.4 mEq/L (3.5-5.1)
[2017-04-23] MEDS: Budesonide 0.5 Mg/2 mL Ud HHN SCH ×2 (07:51→19:02)
--- NOTE | 2017-04-23 08:50 | General Progress Note ---
Subjective - Review of Systems Subjective: Patient is seen and examined. Patient's one daughters is at bedside. Patient is having hiccup. Not following commands,but confused. Objective - Results Result Diagrams: 04/23/17 05:40 04/23/17 05:40 Recent Labs: Laboratory Last Values WBC 10.5 Th/cmm (4.8-10.8) D 04/23/17 05:40 RBC 3.09 Mil/cmm (4.30-5.70) L 04/23/17 05:40 Hgb 8.1 gm/dL (13.2-17.3) L 04/23/17 05:40 Hct 24.4 % (39.0-49.0) L 04/23/17 05:40 MCV 79.0 fl (80-99) L 04/23/17 05:40 MCH 26.2 pg (26.0-30.0) 04/23/17 05:40 MCHC Differential 33.2 pg (28.0-36.0) 04/23/17 05:40 RDW 15.5 % (11.5-20.0) 04/23/17 05:40 Plt Count 627 Th/cmm (150-400) H 04/23/17 05:40 MPV 7.7 fl 04/23/17 05:40 Neutrophils % 81.0 % (40.0-80.0) H 04/23/17 05:40 Band Neutrophils % 3 % (0-10) 04/19/17 04:40 Lymphocytes % 11.2 % (20.0-50.0) L 04/23/17 05:40 Monocytes % 5.9 % (2.0-10.0) 04/23/17 05:40 Eosinophils % 1.5 % (0.0-5.0) 04/23/17 05:40 Basophils % 0.4 % (0.0-2.0) 04/23/17 05:40 Neutrophils (Manual) 79 % (40-80) 04/22/17 05:04 Lymphocytes 14 % (20-50) L 04/22/17 05:04 Monocytes 6 % (2-10) 04/22/17 05:04 Eosinophils 1 % (0-5) 04/19/17 04:40 Metamyelocytes 1 % (0-0) H 04/22/17 05:04 Platelet Estimate INCREASED PLATELETS (NORMAL) 04/22/17 05:04 Platelet Morphology NORMAL (NORMAL) 04/22/17 05:04 Anisocytosis 1+ 04/22/17 05:04 RBC Morph Micro Appear ABNORMAL (NORMAL) 04/22/17 05:04 ESR > 140 mm/hr (0-20) H 04/20/17 07:00 PT 12.9 SECONDS (9.5-11.5) H 04/14/17 14:55 INR 1.23 (0.5-1.4) 04/14/17 14:55 PTT (Actin FS) 29.8 SECONDS (26.0-38.0) 04/14/17 14:55 Specimen Source Arterial 04/20/17 12:13 Sample Site RB 04/20/17 12:13 pH 7.51 (7.35-7.45) H 04/20/17 12:13 pCO2 32.0 mmHg (35.0-45.0) L 04/20/17 12:13 pO2 116.0 mmHg (80.0-100.0) H 04/20/17 12:13 HCO3 27.2 mEq/L (20.0-26.0) H 04/20/17 12:13 Base Excess 2.9 mEq/L (-3.0-3.0) 04/20/17 12:13 O2 Saturation 99.0 % (92.0-100.0) 04/20/17 12:13 Chau Test YES 04/19/17 09:00 Vent Rate NA 04/19/17 09:00 Inspired O2 32 04/20/17 12:13 Tidal Volume NA 04/19/17 09:00 PEEP NA 04/19/17 09:00 Pressure (ins/psv/peep) NA 04/19/17 09:00 Critical Value PW 04/20/17 12:13 Sodium 148 mEq/L (136-145) H 04/23/17 05:40 Potassium 3.4 mEq/L (3.5-5.1) L 04/23/17 05:40 Chloride 118 mEq/L (98-107) H 04/23/17 05:40 Carbon Dioxide 24.9 mEq/L (21.0-31.0) 04/23/17 05:40 Anion Gap 8.5 (7.0-16.0) 04/23/17 05:40 BUN 24 mg/dL (7-25) 04/23/17 05:40 Creatinine 1.8 mg/dL (0.7-1.3) H 04/23/17 05:40 Est GFR ( Amer) 50.3 ml/min (>90) 04/23/17 05:40 Est GFR (Non-Af Amer) 41.5 ml/min 04/23/17 05:40 BUN/Creatinine Ratio 13.3 04/23/17 05:40 Glucose 184 mg/dL (70-105) H 04/23/17 05:40 POC Glucose 177 MG/DL (70 - 105) H 04/23/17 05:58 Hemoglobin A1c % 6.7 % (4.0-6.0) H 04/22/17 05:04 Whole Bld Lactic Acid 1.53 mmol/L (0.60-1.99) 04/14/17 14:55 Uric Acid 3.6 mg/dL (4.4-7.6) L 04/20/17 07:00 Calcium 8.8 mg/dL (8.6-10.3) 04/23/17 05:40 Phosphorus 3.5 mg/dL (2.5-5.0) 04/23/17 05:40 Magnesium 1.9 mg/dL (1.9-2.7) 04/23/17 05:40 Total Bilirubin 0.7 mg/dL (0.3-1.0) 04/23/17 05:40 AST 45 U/L (13-39) H 04/23/17 05:40 ALT 30 U/L (7-52) 04/23/17 05:40 Alkaline Phosphatase 62 U/L (34-104) 04/23/17 05:40 Creatine Kinase 136 U/L (30-223) 04/14/17 14:55 Troponin I 0.01 ng/mL (0.01-0.05) 04/22/17 05:04 C-Reactive Protein 28.9 mg/dL (0.0-0.9) H 04/20/17 07:00 B-Natriuretic Peptide 85.5 pg/mL (5.0-100.0) 04/14/17 14:55 Total Protein 6.5 gm/dL (6.0-8.3) 04/23/17 05:40 Albumin 2.5 gm/dL (4.2-5.5) L 04/23/17 05:40 Globulin 4.0 gm/dL 04/23/17 05:40 Albumin/Globulin Ratio 0.6 (1.0-1.8) L 04/23/17 05:40 Prealbumin 8 mg/dL (10-36) L 04/19/17 19:20 Triglycerides 238 mg/dL (<150) H 04/19/17 04:40 Cholesterol 80 mg/dL (<200) 04/19/17 04:40 LDL Cholesterol Direct 38 mg/dL (75-193) L 04/14/17 14:55 HDL Cholesterol 13 mg/dL (23-92) L 04/14/17 14:55 Amylase 31 U/L (29-103) 04/14/17 14:55 Lipase 15 U/L (11-82) 04/14/17 14:55 Urine Source CLEAN C 04/14/17 15:05 Urine Color ORANGE 04/14/17 15:05 Urine Clarity SLIGHT HAZY (CLEAR) 04/14/17 15:05 Urine pH 5.5 04/14/17 15:05 Ur Specific [place] 1.020 (1.005-1.030) 04/14/17 15:05 Urine Protein 100 mg/dL (NEGATIVE) H 04/14/17 15:05 Urine Glucose (UA) NEGATIVE mg/dL (NEGATIVE) 04/14/17 15:05 Urine Ketones 15 mg/dL (NEGATIVE) H 04/14/17 15:05 Urine Blood SMALL (NEGATIVE) H 04/14/17 15:05 Urine Nitrate NEGATIVE (NEGATIVE) 04/14/17 15:05 Urine Bilirubin SMALL (NEGATIVE) H 04/14/17 15:05 Urine Urobilinogen 1.0 E.U./dL (0.2 - 1.0) 04/14/17 15:05 Ur Leukocyte Esterase NEGATIVE (NEGATIVE) 04/14/17 15:05 Urine RBC 2-5 /hpf (0-5) H 04/14/17 15:05 Urine WBC 0-2 /hpf (0-5) 04/14/17 15:05 Ur Epithelial Cells OCCASIONAL /lpf (FEW) 04/14/17 15:05 Amorphous Sediment MANY URATES (NONE SEEN) 04/14/17 15:05 Urine Bacteria 1+ /hpf (NONE SEEN) H 04/14/17 15:05 Vancomycin Trough 13.5 ug/mL (10-20) 04/19/17 19:20 Blood Type O POSITIVE 04/14/17 20:36 Antibody Screen NEGATIVE 04/14/17 20:36 - Physical Exam Vitals and I&O: Vital Signs Temp 100.2 F 04/23/17 04:00 Pulse 124 04/23/17 04:00 Resp 20 04/23/17 04:00 BP 128/82 04/23/17 04:00 Pulse Ox 98 04/23/17 04:00 Intake & Output 04/22/17 04/23/17 04/23/17 18:59 06:59 18:59 Intake Total 3447.667 1580 Output Total 230 Balance 3447.667 1350 Weight (lbs) 97.778 kg Intake: Intake, IV Amount 3447.667 300 Dextrose 5% 1,000 ml @ 40 996.667 mls/hr IV .Q24H [facility] Rx#: [id number] Fluconazole 200mg/100mL 100 200 mg In 100 ml @ 100 mls/hr IV Q24HR [facility] Rx#: [id number] Multivitamin Inj 10 ml In 2151 Dextrose 70% 820 ml In Amino Acids 10% 1,180 ml In Intralipids 20% 150 ml @ 90 mls/hr IV .Q24H [facility] Rx#:[id number] Piperacillin Sodium/ 300 200 Tazobact 4.5 gm In Sodium Chloride 0.9% 100 ml @ 100 mls/hr IV Q6HR [facility] Rx #:[id number] Oral 200 TPN/PPN 1080 Output: Drainage 30 Right Lower Abdomen 30 Stool 200 Other: # Voids 3 Stool Characteristics Liquid Liquid Brown Brown Green Green Active Medications: Current Medications Acetaminophen (Tylenol) 650 mg PO Q6H PRN PRN Reason: FEVER/PAIN Stop: 06/21/17 17:45 Albuterol/Ipratropium (Duoneb Neb) 3 ml HHN Q4HRT [facility] Stop: 06/15/17 14:59 Last Admin: 04/23/17 07:50 Dose: 3 ml Budesonide (Pulmicort) 0.5 mg HHN BIDRT [facility] Stop: 06/15/17 18:59 Last Admin: 04/23/17 07:51 Dose: 0.5 mg Piperacillin Sod/Tazobactam (Sod 4.5 gm/ Sodium Chloride) 100 mls @ 100 mls/hr IV Q6HR [facility] Stop: 06/14/17 00:00 Last Infusion: 04/23/17 06:25 Dose: Infused Fluconazole (Diflucan) 200 mg in 100 mls @ 100 mls/hr IV Q24HR [facility] Stop: 06/15/17 22:59 Last Infusion: 04/22/17 23:40 Dose: Infused Multivitamins/Minerals 10 ml/Dextrose/ Amino Acids/Electrolytes/ Fat Emulsion Intravenous 2,160 mls @ 90 mls/hr IV .Q24H [facility] Stop: 06/19/17 15:59 Last Admin: 04/22/17 17:05 Dose: 90 mls/hr Dextrose (D5w) 1,000 mls @ 40 mls/hr IV .Q24H [facility] Stop: 06/20/17 11:59 Last Admin: 04/22/17 13:08 Dose: 40 mls/hr Insulin Aspart (Novolog Insulin Sliding Scale) 0 units SUBQ Q6HR [facility]AN PRN Reason: Protocol Stop: 06/16/17 17:59 Last Admin: 04/23/17 06:06 Dose: 2 units Lorazepam (Ativan) 1 mg IVP Q4HR PRN; Protocol PRN Reason: AGITATION Stop: 06/17/17 13:27 Last Admin: 04/23/17 05:02 Dose: 1 mg Miscellaneous (Probiotic Screen) 1 [facility] PRN PRN PRN Reason: PROTOCOL Stop: 06/14/17 09:39 Miscellaneous (Clinical Monitoring) 1 [facility] DAILY PRN PRN Reason: RENAL Stop: 06/15/17 12:48 Miscellaneous (Tpn Per Pharmacy) 1 [facility] PRN PRN PRN Reason: PROTOCOL Stop: 06/16/17 12:28 Morphine Sulfate (Morphine) 4 mg IVP Q2HR PRN PRN Reason: Pain (Moderate) Stop: 06/15/17 10:53 Last Admin: 04/23/17 03:03 Dose: 4 mg Ondansetron HCl (Zofran) 4 mg IVP Q6H PRN PRN Reason: Nausea / Vomiting Stop: 06/13/17 20:08 Pantoprazole Sodium (Protonix) 40 mg IVP DAILY [facility]AN Stop: 06/15/17 08:59 Last Admin: 04/22/17 10:59 Dose: 40 mg General: Alert, Mild distress HEENT: Atraumatic, PERRLA, EOMI, Mucous membr. moist/pink Neck: Supple, +2 carotid pulse wo bruit Cardiovascular: Regular rate, Normal S1, Normal S2 Abdomen: Soft, Distended, Other (left colostomy bag with the serosanguineous discharge. ROLANDO drain right side.) Extremities: Other (no edema and cyanosis.) Neurological: Other (Not following commands.) Psych/Mental Status: Other (gets agitated at times.) - Procedures Procedures: Procedures Procedure Code Date BYPASS SIGMOID COLON TO CUTANEOUS, OPEN APPROACH [id number] 04/14/17 PARTIAL REMOVAL OF COLON 39197 04/14/17 RESECTION OF SIGMOID COLON, OPEN APPROACH [id number] 04/14/17 RESPIRATORY VENTILATION, LESS THAN 24 CONSECUTIVE HOURS [id number] 04/14/17 VENT MGMT INPAT INIT DAY 90466 04/14/17 Assessment/Plan - Problem List Patient Problems: All Active Problems Abscess of sigmoid colon due to diverticulitis (Acute) K57.20 Diverticulitis of sigmoid colon (Acute) K57.32 Obesity (Acute) E66.9 Perforation of sigmoid colon due to diverticulitis (Acute) K57.20 Peritonitis (acute) generalized (Acute) K65.0 - Assessment Assessment: Current Active Problems Problem Status Onset Abscess of sigmoid colon due to diverticulitis Acute Diverticulitis of sigmoid colon Acute Obesity Acute Perforation of sigmoid colon due to diverticulitis Acute Peritonitis (acute) generalized Acute Perforated sigmoid diverticulitis status post exploratory laparotomy and sigmoid colectomy intra-abdominal abscess drainage lysis of pleural Ada procedure and colostomy. Postoperative respiratory status post extubation. Obesity. Polymicrobial peritonitis. Asthma. Electrolyte imbalance. Hiccup. SEKOU. Encephalopathy due to metabolic and infectious etio. Open surgical wound . Recurrent fever. Bilateral wrist swelling and pain with abnormal x-rays needs orthopedic evaluation. Bone scan consistent with charcot. Increasing agitation at time. Postop anemia. - Plan Plan: Wound Vac. IVF. Correct electrolytes. IV antibiotics as per ID. Continue oxygen, HHN. Pulmonary follow-up. GI and DVT prophylaxis. Follow-up lab. Hold po diet. Colostomy care. Post op follow up as per surgery. Guarded prognosis. Follow up on consultants recommendations. Care plan reviewed and discussed with patient's RN and family. All questions answered. Symptoms management. Medication management. Nutritional Asmnt/Malnutr-PDOC - Dietary Evaluation Malnutrition Findings (Please click <Entered> for more info): Nutritional Asmnt/Malnutrition Start: 04/19/17 14: 21 Text: Status: Complete Freq: Document 04/19/17 14:21 GSUN (Rec: 04/19/17 14:58 [id number]) Nutritional Asmnt/Malnutrition Patient General Information Nutritional Screening Moderate Risk Screening Diagnosis Sepsis, diverticulitis, peritonitis Pertinent Medical Hx/Surgical Hx Asthma, diverticulosis Subjective Information 56 year old male frome home. Pt was restless, moving extremities during visit. 04/14 : sigmoid colectomy, end colostomy, abscess drainage, diffuse peritontis. 04/16: pt started PPN. 04/17: central line and started on TPN. Spoke to family at bedside, explained parenteral nutrition , family undersoto and has no further question at this time. Weight discrepancies noted in EMR, family does not know UBW , estimated nutritional needs based Current Diet Order/ Nutrition Support TPN D10% AA4.25% at 90ml/hr with IL20% 150ml, providing 1401.6kcal Pertinent Medications Dilaudid, Novolog, Culturelle, Magnesium Sulfate, Vancomycin , TPN, Morphine, Multivitamins , Zofran, Protonix, Nacl0.9% Pertinent Labs 04/14: triglycerides 106, total bilirubin 1.1H, glucose 116H 04/17: magnesium 2.5, phsophorus 3.2 04/19: magnesium 1.8L, phosphorus 2.4L, BUN 28H, creatinine 1.3, glucose 154H, total bilirubin 1.1H, triglycerides 238H Nutritional Hx/Data Height 1.7 m Height (Calculated Centimeters) 170.2 Current Weight (lbs) 95.254 kg Weight (Calculated Kilograms) 95.3 Weight (Calculated Grams) 63491.4 [place]born Body Weight 148 Weight Status Overweight GI Symptoms Skin Integrity/Comment: Gilmer 14. Facial non-pitting 1+, bilateral hands pitting 1+ Estimated Nutritional Goals Calories/Kcals/Kg IBW 148/67.3kg Kcals Calculated 2019-2356kcal (30-35kcal/kg) Protein Calculated 101-135g (1.5-2g/kg) Fluid: ml Per MD Nutritional Problem 1. Problem Problem Altered GI function related to Etiology abscess and perforation of sigmoid colon due to diverticulitis aeb Signs/Symptoms: post-operative, on TPN Intervention/Recommendation Comments 1. Recommend TPN D15% AA5.5% at 100ml/hr with IL20% 150ml, providing 2400ml total volume, 2052kcal, 132g protein, meeting 100% of estimated nutritional needs. Carb load 2 .6mg/kg/min (using 210lb adm weight). 2. Monitor for possible refeeding syndrome, 04/18: phsophorus 2.1L, 04/19: magnesium 1.9. 3. Monitor triglycerides, total bilirubin, glucose, renal labs. Expected Outcomes/Goals Expected Outcomes/Goals 1. Pt to meet 100% of estimated nutritional needs on TPN.
--- NOTE | 2017-04-23 09:34 | Diagnostic Imaging Report ---
CHEST X-RAY: AP view INDICATION: Shortness of breath COMPARISON: 04/22/2017 FINDINGS: The prior NG tube is been removed. Right-sided IJ line is stable. Chronic changes are seen with no focal consolidation or effusions. Right basal scarring is noted. Heart size is normal. IMPRESSION: Right basal scarring. No focal consolidation identified. Interval removal of the NG tube.
[2017-04-23] MEDS ORDERED: KCL 20mEq/100mL Premix 20 MEQ/100 ML PIGGYBACK IV ONE (11:00)
--- NOTE | 2017-04-23 11:47 | Diagnostic Imaging Report ---
KUB single view HISTORY: Abdominal pain. COMPARISON: CT abdomen and pelvis on 04/20/2017 FINDINGS: Distended stomach is noted. Generalized gas-filled loops of bowel are noted. A surgical drain is seen in the pelvis. IMPRESSION: Generalized gaseous distended loops of bowel probably representing ileus. Please correlate with clinical findings. Follow-up is recommended. A surgical drain is also seen within the pelvis Gaseous distention of the stomach.
[2017-04-23] MEDS: Dextrose 5% 1,000 ML IV SCH (13:30)
[2017-04-23] MEDS ORDERED: TPN 10%-70% CUSTOM IV SCH ×3 (16:00)
--- NOTE | 2017-04-23 20:48 | Progress Notes ---
DATE: 04/23/2017 PROBLEM LIST: 1. Status post acute respiratory failure. 2. Status post abdominal surgery from perforated bowel with peritonitis. 3. Obstructive sleep apnea syndrome. SYMPTOMS: Nil. The patient is awake, some secretory material, but no specific new symptoms otherwise according to the family. PHYSICAL EXAMINATION: VITAL SIGNS: T-max 100.3, blood pressure 163/93, respiration is about 10-15, and saturation in 90s on 4 L of oxygen. ASSESSMENT: The patient clinically appears to be improving with white count trending down, low-grade fever. Electrolytes are okay, creatinine is 1.8. The patient is clinically improving, stable, altered state of mind secondary to sepsis, peritonitis . JOB# [id number]
[2017-04-23] MEDS: Fluconazole 200mg/100mL 200 MG/100 ML BAG IV SCH (22:44)
--- NOTE | 2017-04-23 23:33 | Infectious Disease Prog Note ---
Infectious Disease Subjective - Review of Systems Service Date: 04/23/17 Subjective: Doing better, there is no fever. He has been passing gas and abdomen is less distended. Infectious Disease Objective - Results Result Diagrams: 04/24/17 05:30 04/24/17 05:30 Recent Labs: Laboratory Last Values WBC 10.5 Th/cmm (4.8-10.8) D 04/23/17 05:40 RBC 3.09 Mil/cmm (4.30-5.70) L 04/23/17 05:40 Hgb 8.1 gm/dL (13.2-17.3) L 04/23/17 05:40 Hct 24.4 % (39.0-49.0) L 04/23/17 05:40 MCV 79.0 fl (80-99) L 04/23/17 05:40 MCH 26.2 pg (26.0-30.0) 04/23/17 05:40 MCHC Differential 33.2 pg (28.0-36.0) 04/23/17 05:40 RDW 15.5 % (11.5-20.0) 04/23/17 05:40 Plt Count 627 Th/cmm (150-400) H 04/23/17 05:40 MPV 7.7 fl 04/23/17 05:40 Neutrophils % 81.0 % (40.0-80.0) H 04/23/17 05:40 Band Neutrophils % 3 % (0-10) 04/19/17 04:40 Lymphocytes % 11.2 % (20.0-50.0) L 04/23/17 05:40 Monocytes % 5.9 % (2.0-10.0) 04/23/17 05:40 Eosinophils % 1.5 % (0.0-5.0) 04/23/17 05:40 Basophils % 0.4 % (0.0-2.0) 04/23/17 05:40 Neutrophils (Manual) 79 % (40-80) 04/22/17 05:04 Lymphocytes 14 % (20-50) L 04/22/17 05:04 Monocytes 6 % (2-10) 04/22/17 05:04 Eosinophils 1 % (0-5) 04/19/17 04:40 Metamyelocytes 1 % (0-0) H 04/22/17 05:04 Platelet Estimate INCREASED PLATELETS (NORMAL) 04/22/17 05:04 Platelet Morphology NORMAL (NORMAL) 04/22/17 05:04 Anisocytosis 1+ 04/22/17 05:04 RBC Morph Micro Appear ABNORMAL (NORMAL) 04/22/17 05:04 ESR > 140 mm/hr (0-20) H 04/20/17 07:00 PT 12.9 SECONDS (9.5-11.5) H 04/14/17 14:55 INR 1.23 (0.5-1.4) 04/14/17 14:55 PTT (Actin FS) 29.8 SECONDS (26.0-38.0) 04/14/17 14:55 Specimen Source Arterial 04/20/17 12:13 Sample Site RB 04/20/17 12:13 pH 7.51 (7.35-7.45) H 04/20/17 12:13 pCO2 32.0 mmHg (35.0-45.0) L 04/20/17 12:13 pO2 116.0 mmHg (80.0-100.0) H 04/20/17 12:13 HCO3 27.2 mEq/L (20.0-26.0) H 04/20/17 12:13 Base Excess 2.9 mEq/L (-3.0-3.0) 04/20/17 12:13 O2 Saturation 99.0 % (92.0-100.0) 04/20/17 12:13 Chau Test YES 04/19/17 09:00 Vent Rate NA 04/19/17 09:00 Inspired O2 32 04/20/17 12:13 Tidal Volume NA 04/19/17 09:00 PEEP NA 04/19/17 09:00 Pressure (ins/psv/peep) NA 04/19/17 09:00 Critical Value PW 04/20/17 12:13 Sodium 148 mEq/L (136-145) H 04/23/17 05:40 Potassium 3.4 mEq/L (3.5-5.1) L 04/23/17 05:40 Chloride 118 mEq/L (98-107) H 04/23/17 05:40 Carbon Dioxide 24.9 mEq/L (21.0-31.0) 04/23/17 05:40 Anion Gap 8.5 (7.0-16.0) 04/23/17 05:40 BUN 24 mg/dL (7-25) 04/23/17 05:40 Creatinine 1.8 mg/dL (0.7-1.3) H 04/23/17 05:40 Est GFR ( Amer) 50.3 ml/min (>90) 04/23/17 05:40 Est GFR (Non-Af Amer) 41.5 ml/min 04/23/17 05:40 BUN/Creatinine Ratio 13.3 04/23/17 05:40 Glucose 184 mg/dL (70-105) H 04/23/17 05:40 POC Glucose 120 MG/DL (70 - 105) H 04/23/17 17:45 Hemoglobin A1c % 6.7 % (4.0-6.0) H 04/22/17 05:04 Whole Bld Lactic Acid 1.53 mmol/L (0.60-1.99) 04/14/17 14:55 Uric Acid 3.6 mg/dL (4.4-7.6) L 04/20/17 07:00 Calcium 8.8 mg/dL (8.6-10.3) 04/23/17 05:40 Phosphorus 3.5 mg/dL (2.5-5.0) 04/23/17 05:40 Magnesium 1.9 mg/dL (1.9-2.7) 04/23/17 05:40 Total Bilirubin 0.7 mg/dL (0.3-1.0) 04/23/17 05:40 AST 45 U/L (13-39) H 04/23/17 05:40 ALT 30 U/L (7-52) 04/23/17 05:40 Alkaline Phosphatase 62 U/L (34-104) 04/23/17 05:40 Creatine Kinase 136 U/L (30-223) 04/14/17 14:55 Troponin I 0.01 ng/mL (0.01-0.05) 04/22/17 05:04 C-Reactive Protein 28.9 mg/dL (0.0-0.9) H 04/20/17 07:00 B-Natriuretic Peptide 85.5 pg/mL (5.0-100.0) 04/14/17 14:55 Total Protein 6.5 gm/dL (6.0-8.3) 04/23/17 05:40 Albumin 2.5 gm/dL (4.2-5.5) L 04/23/17 05:40 Globulin 4.0 gm/dL 04/23/17 05:40 Albumin/Globulin Ratio 0.6 (1.0-1.8) L 04/23/17 05:40 Prealbumin 8 mg/dL (10-36) L 04/19/17 19:20 Triglycerides 238 mg/dL (<150) H 04/19/17 04:40 Cholesterol 80 mg/dL (<200) 04/19/17 04:40 LDL Cholesterol Direct 38 mg/dL (75-193) L 04/14/17 14:55 HDL Cholesterol 13 mg/dL (23-92) L 04/14/17 14:55 Amylase 31 U/L (29-103) 04/14/17 14:55 Lipase 15 U/L (11-82) 04/14/17 14:55 Urine Source CLEAN C 04/14/17 15:05 Urine Color ORANGE 04/14/17 15:05 Urine Clarity SLIGHT HAZY (CLEAR) 04/14/17 15:05 Urine pH 5.5 04/14/17 15:05 Ur Specific [place] 1.020 (1.005-1.030) 04/14/17 15:05 Urine Protein 100 mg/dL (NEGATIVE) H 04/14/17 15:05 Urine Glucose (UA) NEGATIVE mg/dL (NEGATIVE) 04/14/17 15:05 Urine Ketones 15 mg/dL (NEGATIVE) H 04/14/17 15:05 Urine Blood SMALL (NEGATIVE) H 04/14/17 15:05 Urine Nitrate NEGATIVE (NEGATIVE) 04/14/17 15:05 Urine Bilirubin SMALL (NEGATIVE) H 04/14/17 15:05 Urine Urobilinogen 1.0 E.U./dL (0.2 - 1.0) 04/14/17 15:05 Ur Leukocyte Esterase NEGATIVE (NEGATIVE) 04/14/17 15:05 Urine RBC 2-5 /hpf (0-5) H 04/14/17 15:05 Urine WBC 0-2 /hpf (0-5) 04/14/17 15:05 Ur Epithelial Cells OCCASIONAL /lpf (FEW) 04/14/17 15:05 Amorphous Sediment MANY URATES (NONE SEEN) 04/14/17 15:05 Urine Bacteria 1+ /hpf (NONE SEEN) H 04/14/17 15:05 Vancomycin Trough 13.5 ug/mL (10-20) 04/19/17 19:20 Blood Type O POSITIVE 04/14/17 20:36 Antibody Screen NEGATIVE 04/14/17 20:36 - Physical Exam Vitals and I&O: Vital Signs Temp 98.9 F 04/23/17 20:00 Pulse 114 04/23/17 22:50 Resp 20 04/23/17 22:50 BP 129/85 04/23/17 20:00 Pulse Ox 98 04/23/17 22:50 Intake & Output 04/23/17 04/23/17 04/24/17 06:59 18:59 06:59 Intake Total 1580 2274.667 Output Total 230 15 Balance 1350 2259.667 Weight (lbs) 97.778 kg 97.778 kg Intake: Intake, IV Amount 300 914.667 Dextrose 5% 1,000 ml @ 40 914.667 mls/hr IV .Q24H [facility] Rx#: [id number] Fluconazole 200mg/100mL 100 200 mg In 100 ml @ 100 mls/hr IV Q24HR [facility] Rx#: [id number] Piperacillin Sodium/ 200 0 Tazobact 4.5 gm In Sodium Chloride 0.9% 100 ml @ 100 mls/hr IV Q6HR [facility] Rx #:[id number] Oral 200 280 TPN/PPN 1080 1080 Output: Drainage 30 15 Right Lower Abdomen 30 15 Stool 200 Other: # Voids 3 5 # Bowel Movements 0 Stool Characteristics Liquid Liquid Brown Brown Green Green Active Medications: Current Medications Acetaminophen (Tylenol) 650 mg PO Q6H PRN PRN Reason: FEVER/PAIN Stop: 06/21/17 17:45 Last Admin: 04/23/17 15:55 Dose: 650 mg Albuterol/Ipratropium (Duoneb Neb) 3 ml HHN Q4HRT [facility] Stop: 06/15/17 14:59 Last Admin: 04/23/17 22:58 Dose: 3 ml Budesonide (Pulmicort) 0.5 mg HHN BIDRT [facility] Stop: 06/15/17 18:59 Last Admin: 04/23/17 19:02 Dose: 0.5 mg Piperacillin Sod/Tazobactam (Sod 4.5 gm/ Sodium Chloride) 100 mls @ 100 mls/hr IV Q6HR [facility] Stop: 06/14/17 00:00 Last Admin: 04/23/17 17:49 Dose: 100 mls/hr Fluconazole (Diflucan) 200 mg in 100 mls @ 100 mls/hr IV Q24HR [facility] Stop: 06/15/17 22:59 Last Admin: 04/23/17 22:44 Dose: 100 mls/hr Dextrose (D5w) 1,000 mls @ 40 mls/hr IV .Q24H [facility] Stop: 06/20/17 11:59 Last Admin: 04/23/17 13:30 Dose: 40 mls/hr Multivitamins/Minerals 10 ml/Dextrose/ Amino Acids/Electrolytes/ Fat Emulsion Intravenous/ Sterile Water 2,242 mls @ 90 mls/hr IV .Q24H [facility] Stop: 06/22/17 15:59 Last Admin: 04/23/17 16:00 Dose: 90 mls/hr Insulin Aspart (Novolog Insulin Sliding Scale) 0 units SUBQ Q6HR [facility] PRN Reason: Protocol Stop: 06/16/17 17:59 Last Admin: 04/23/17 17:50 Dose: Not Given Lorazepam (Ativan) 1 mg IVP Q4HR PRN; Protocol PRN Reason: AGITATION Stop: 06/17/17 13:27 Last Admin: 04/23/17 05:02 Dose: 1 mg Miscellaneous (Probiotic Screen) 1 [facility] PRN PRN PRN Reason: PROTOCOL Stop: 06/14/17 09:39 Miscellaneous (Clinical Monitoring) 1 ea DAILY PRN PRN Reason: RENAL Stop: 06/15/17 12:48 Miscellaneous (Tpn Per Pharmacy) 1 [facility] PRN PRN PRN Reason: PROTOCOL Stop: 06/16/17 12:28 Morphine Sulfate (Morphine) 4 mg IVP Q2HR PRN PRN Reason: Pain (Moderate) Stop: 06/15/17 10:53 Last Admin: 04/23/17 15:54 Dose: 4 mg Ondansetron HCl (Zofran) 4 mg IVP Q6H PRN PRN Reason: Nausea / Vomiting Stop: 06/13/17 20:08 Pantoprazole Sodium (Protonix) 40 mg IVP DAILY [facility] Stop: 06/15/17 08:59 Last Admin: 04/23/17 09:25 Dose: 40 mg - Procedures Procedures: Procedures Procedure Code Date BYPASS SIGMOID COLON TO CUTANEOUS, OPEN APPROACH [id number] 04/14/17 PARTIAL REMOVAL OF COLON 15274 04/14/17 RESECTION OF SIGMOID COLON, OPEN APPROACH [id number] 04/14/17 RESPIRATORY VENTILATION, 24-96 CONSECUTIVE HOURS [id number] 04/14/17 VENT MGMT INPAT INIT DAY 20775 04/14/17 Infectious Disease Assmt/Plan - Problem List Patient Problems: All Active Problems Abscess of sigmoid colon due to diverticulitis (Acute) K57.20 Diverticulitis of sigmoid colon (Acute) K57.32 Obesity (Acute) E66.9 Perforation of sigmoid colon due to diverticulitis (Acute) K57.20 Peritonitis (acute) generalized (Acute) K65.0 - Assessment Assessment: 1. Sepsis. improved. 2. Diverticulitis, sigmoid diverticula to with support complicated by multiple abscesses and peritonitis. 3. Post operatively, on ventilator. 4. Peritonitis. Likely polymicrobial. 5. History of asthma. 6. History of arthritis. 7. Distended abdomen likely post operative ileus. Rule out small bowel obstruction. 8. SEKOU. 9. Post op, paralytic ileus. improved. 10. Wrist cellulitis, worse on left with destruction of bones. X ray of the left wrist suggested osteomyelitis. Plan: Continue Zosyn, and diflucan. Dc vancomycin. Sepsis workup was performed and follow the sepsis workup. Nutritional Asmnt/Malnutr-PDOC - Dietary Evaluation Malnutrition Findings (Please click <Entered> for more info): Nutritional Asmnt/Malnutrition Start: 04/19/17 14: 21 Text: Status: Complete Freq: Document 04/19/17 14:21 GSUN (Rec: 04/19/17 14:58 [id number]) Nutritional Asmnt/Malnutrition Patient General Information Nutritional Screening Moderate Risk Screening Diagnosis Sepsis, diverticulitis, peritonitis Pertinent Medical Hx/Surgical Hx Asthma, diverticulosis Subjective Information 56 year old male frome home. Pt was restless, moving extremities during visit. 04/14 : sigmoid colectomy, end colostomy, abscess drainage, diffuse peritontis. 04/16: pt started PPN. 04/17: central line and started on TPN. Spoke to family at bedside, explained parenteral nutrition , family undersoto and has no further question at this time. Weight discrepancies noted in EMR, family does not know UBW , estimated nutritional needs based Current Diet Order/ Nutrition Support TPN D10% AA4.25% at 90ml/hr with IL20% 150ml, providing 1401.6kcal Pertinent Medications Dilaudid, Novolog, Culturelle, Magnesium Sulfate, Vancomycin , TPN, Morphine, Multivitamins , Zofran, Protonix, Nacl0.9% Pertinent Labs 04/14: triglycerides 106, total bilirubin 1.1H, glucose 116H 04/17: magnesium 2.5, phsophorus 3.2 04/19: magnesium 1.8L, phosphorus 2.4L, BUN 28H, creatinine 1.3, glucose 154H, total bilirubin 1.1H, triglycerides 238H Nutritional Hx/Data Height 1.7 m Height (Calculated Centimeters) 170.2 Current Weight (lbs) 95.254 kg Weight (Calculated Kilograms) 95.3 Weight (Calculated Grams) 84123.4 [place] Body Weight 148 Weight Status Overweight GI Symptoms Skin Integrity/Comment: [place] 14. Facial non-pitting 1+, bilateral hands pitting 1+ Estimated Nutritional Goals Calories/Kcals/Kg IBW 148/67.3kg Kcals Calculated 2019-2356kcal (30-35kcal/kg) Protein Calculated 101-135g (1.5-2g/kg) Fluid: ml Per MD Nutritional Problem 1. Problem Problem Altered GI function related to Etiology abscess and perforation of sigmoid colon due to diverticulitis aeb Signs/Symptoms: post-operative, on TPN Intervention/Recommendation Comments 1. Recommend TPN D15% AA5.5% at 100ml/hr with IL20% 150ml, providing 2400ml total volume, 2052kcal, 132g protein, meeting 100% of estimated nutritional needs. Carb load 2 .6mg/kg/min (using 210lb adm weight). 2. Monitor for possible refeeding syndrome, 04/18: phsophorus 2.1L, 04/19: magnesium 1.9. 3. Monitor triglycerides, total bilirubin, glucose, renal labs. Expected Outcomes/Goals Expected Outcomes/Goals 1. Pt to meet 100% of estimated nutritional needs on TPN.
--- NOTE | 2017-04-23 23:55 | General Progress Note ---
Subjective - Review of Systems Service Date: 04/23/17 Subjective: more awake and oriented, flat affect Objective - Results Result Diagrams: 04/23/17 05:40 04/23/17 05:40 Recent Labs: Laboratory Last Values WBC 10.5 Th/cmm (4.8-10.8) D 04/23/17 05:40 RBC 3.09 Mil/cmm (4.30-5.70) L 04/23/17 05:40 Hgb 8.1 gm/dL (13.2-17.3) L 04/23/17 05:40 Hct 24.4 % (39.0-49.0) L 04/23/17 05:40 MCV 79.0 fl (80-99) L 04/23/17 05:40 MCH 26.2 pg (26.0-30.0) 04/23/17 05:40 MCHC Differential 33.2 pg (28.0-36.0) 04/23/17 05:40 RDW 15.5 % (11.5-20.0) 04/23/17 05:40 Plt Count 627 Th/cmm (150-400) H 04/23/17 05:40 MPV 7.7 fl 04/23/17 05:40 Neutrophils % 81.0 % (40.0-80.0) H 04/23/17 05:40 Band Neutrophils % 3 % (0-10) 04/19/17 04:40 Lymphocytes % 11.2 % (20.0-50.0) L 04/23/17 05:40 Monocytes % 5.9 % (2.0-10.0) 04/23/17 05:40 Eosinophils % 1.5 % (0.0-5.0) 04/23/17 05:40 Basophils % 0.4 % (0.0-2.0) 04/23/17 05:40 Neutrophils (Manual) 79 % (40-80) 04/22/17 05:04 Lymphocytes 14 % (20-50) L 04/22/17 05:04 Monocytes 6 % (2-10) 04/22/17 05:04 Eosinophils 1 % (0-5) 04/19/17 04:40 Metamyelocytes 1 % (0-0) H 04/22/17 05:04 Platelet Estimate INCREASED PLATELETS (NORMAL) 04/22/17 05:04 Platelet Morphology NORMAL (NORMAL) 04/22/17 05:04 Anisocytosis 1+ 04/22/17 05:04 RBC Morph Micro Appear ABNORMAL (NORMAL) 04/22/17 05:04 ESR > 140 mm/hr (0-20) H 04/20/17 07:00 PT 12.9 SECONDS (9.5-11.5) H 04/14/17 14:55 INR 1.23 (0.5-1.4) 04/14/17 14:55 PTT (Actin FS) 29.8 SECONDS (26.0-38.0) 04/14/17 14:55 Specimen Source Arterial 04/20/17 12:13 Sample Site RB 04/20/17 12:13 pH 7.51 (7.35-7.45) H 04/20/17 12:13 pCO2 32.0 mmHg (35.0-45.0) L 04/20/17 12:13 pO2 116.0 mmHg (80.0-100.0) H 04/20/17 12:13 HCO3 27.2 mEq/L (20.0-26.0) H 04/20/17 12:13 Base Excess 2.9 mEq/L (-3.0-3.0) 04/20/17 12:13 O2 Saturation 99.0 % (92.0-100.0) 04/20/17 12:13 Chau Test YES 04/19/17 09:00 Vent Rate NA 04/19/17 09:00 Inspired O2 32 04/20/17 12:13 Tidal Volume NA 04/19/17 09:00 PEEP NA 04/19/17 09:00 Pressure (ins/psv/peep) NA 04/19/17 09:00 Critical Value PW 04/20/17 12:13 Sodium 148 mEq/L (136-145) H 04/23/17 05:40 Potassium 3.4 mEq/L (3.5-5.1) L 04/23/17 05:40 Chloride 118 mEq/L (98-107) H 04/23/17 05:40 Carbon Dioxide 24.9 mEq/L (21.0-31.0) 04/23/17 05:40 Anion Gap 8.5 (7.0-16.0) 04/23/17 05:40 BUN 24 mg/dL (7-25) 04/23/17 05:40 Creatinine 1.8 mg/dL (0.7-1.3) H 04/23/17 05:40 Est GFR ( Amer) 50.3 ml/min (>90) 04/23/17 05:40 Est GFR (Non-Af Amer) 41.5 ml/min 04/23/17 05:40 BUN/Creatinine Ratio 13.3 04/23/17 05:40 Glucose 184 mg/dL (70-105) H 04/23/17 05:40 POC Glucose 120 MG/DL (70 - 105) H 04/23/17 17:45 Hemoglobin A1c % 6.7 % (4.0-6.0) H 04/22/17 05:04 Whole Bld Lactic Acid 1.53 mmol/L (0.60-1.99) 04/14/17 14:55 Uric Acid 3.6 mg/dL (4.4-7.6) L 04/20/17 07:00 Calcium 8.8 mg/dL (8.6-10.3) 04/23/17 05:40 Phosphorus 3.5 mg/dL (2.5-5.0) 04/23/17 05:40 Magnesium 1.9 mg/dL (1.9-2.7) 04/23/17 05:40 Total Bilirubin 0.7 mg/dL (0.3-1.0) 04/23/17 05:40 AST 45 U/L (13-39) H 04/23/17 05:40 ALT 30 U/L (7-52) 04/23/17 05:40 Alkaline Phosphatase 62 U/L (34-104) 04/23/17 05:40 Creatine Kinase 136 U/L (30-223) 04/14/17 14:55 Troponin I 0.01 ng/mL (0.01-0.05) 04/22/17 05:04 C-Reactive Protein 28.9 mg/dL (0.0-0.9) H 04/20/17 07:00 B-Natriuretic Peptide 85.5 pg/mL (5.0-100.0) 04/14/17 14:55 Total Protein 6.5 gm/dL (6.0-8.3) 04/23/17 05:40 Albumin 2.5 gm/dL (4.2-5.5) L 04/23/17 05:40 Globulin 4.0 gm/dL 04/23/17 05:40 Albumin/Globulin Ratio 0.6 (1.0-1.8) L 04/23/17 05:40 Prealbumin 8 mg/dL (10-36) L 04/19/17 19:20 Triglycerides 238 mg/dL (<150) H 04/19/17 04:40 Cholesterol 80 mg/dL (<200) 04/19/17 04:40 LDL Cholesterol Direct 38 mg/dL (75-193) L 04/14/17 14:55 HDL Cholesterol 13 mg/dL (23-92) L 04/14/17 14:55 Amylase 31 U/L (29-103) 04/14/17 14:55 Lipase 15 U/L (11-82) 04/14/17 14:55 Urine Source CLEAN C 04/14/17 15:05 Urine Color ORANGE 04/14/17 15:05 Urine Clarity SLIGHT HAZY (CLEAR) 04/14/17 15:05 Urine pH 5.5 04/14/17 15:05 Ur Specific Wh[place] 1.020 (1.005-1.030) 04/14/17 15:05 Urine Protein 100 mg/dL (NEGATIVE) H 04/14/17 15:05 Urine Glucose (UA) NEGATIVE mg/dL (NEGATIVE) 04/14/17 15:05 Urine Ketones 15 mg/dL (NEGATIVE) H 04/14/17 15:05 Urine Blood SMALL (NEGATIVE) H 04/14/17 15:05 Urine Nitrate NEGATIVE (NEGATIVE) 04/14/17 15:05 Urine Bilirubin SMALL (NEGATIVE) H 04/14/17 15:05 Urine Urobilinogen 1.0 E.U./dL (0.2 - 1.0) 04/14/17 15:05 Ur Leukocyte Esterase NEGATIVE (NEGATIVE) 04/14/17 15:05 Urine RBC 2-5 /hpf (0-5) H 04/14/17 15:05 Urine WBC 0-2 /hpf (0-5) 04/14/17 15:05 Ur Epithelial Cells OCCASIONAL /lpf (FEW) 04/14/17 15:05 Amorphous Sediment MANY URATES (NONE SEEN) 04/14/17 15:05 Urine Bacteria 1+ /hpf (NONE SEEN) H 04/14/17 15:05 Vancomycin Trough 13.5 ug/mL (10-20) 04/19/17 19:20 Blood Type O POSITIVE 04/14/17 20:36 Antibody Screen NEGATIVE 04/14/17 20:36 - Physical Exam Vitals and I&O: Vital Signs Temp 98.9 F 04/23/17 20:00 Pulse 114 04/23/17 22:50 Resp 20 04/23/17 22:50 BP 129/85 04/23/17 20:00 Pulse Ox 98 04/23/17 22:50 Intake & Output 04/23/17 04/23/17 04/24/17 06:59 18:59 06:59 Intake Total 1580 2274.667 Output Total 230 15 Balance 1350 2259.667 Weight (lbs) 97.778 kg 97.778 kg Intake: Intake, IV Amount 300 914.667 Dextrose 5% 1,000 ml @ 40 914.667 mls/hr IV .Q24H [facility] Rx#: [id number] Fluconazole 200mg/100mL 100 200 mg In 100 ml @ 100 mls/hr IV Q24HR [facility] Rx#: [id number] Piperacillin Sodium/ 200 0 Tazobact 4.5 gm In Sodium Chloride 0.9% 100 ml @ 100 mls/hr IV Q6HR [facility] Rx #:[id number] Oral 200 280 TPN/PPN 1080 1080 Output: Drainage 30 15 Right Lower Abdomen 30 15 Stool 200 Other: # Voids 3 5 # Bowel Movements 0 Stool Characteristics Liquid Liquid Brown Brown Green Green Active Medications: Current Medications Acetaminophen (Tylenol) 650 mg PO Q6H PRN PRN Reason: FEVER/PAIN Stop: 06/21/17 17:45 Last Admin: 04/23/17 15:55 Dose: 650 mg Albuterol/Ipratropium (Duoneb Neb) 3 ml HHN Q4HRT [facility] Stop: 06/15/17 14:59 Last Admin: 04/23/17 22:58 Dose: 3 ml Budesonide (Pulmicort) 0.5 mg HHN BIDRT [facility] Stop: 06/15/17 18:59 Last Admin: 04/23/17 19:02 Dose: 0.5 mg Piperacillin Sod/Tazobactam (Sod 4.5 gm/ Sodium Chloride) 100 mls @ 100 mls/hr IV Q6HR [facility] Stop: 06/14/17 00:00 Last Admin: 04/23/17 17:49 Dose: 100 mls/hr Fluconazole (Diflucan) 200 mg in 100 mls @ 100 mls/hr IV Q24HR [facility] Stop: 06/15/17 22:59 Last Admin: 04/23/17 22:44 Dose: 100 mls/hr Dextrose (D5w) 1,000 mls @ 40 mls/hr IV .Q24H [facility] Stop: 06/20/17 11:59 Last Admin: 04/23/17 13:30 Dose: 40 mls/hr Multivitamins/Minerals 10 ml/Dextrose/ Amino Acids/Electrolytes/ Fat Emulsion Intravenous/ Sterile Water 2,242 mls @ 90 mls/hr IV .Q24H [facility] Stop: 06/22/17 15:59 Last Admin: 04/23/17 16:00 Dose: 90 mls/hr Insulin Aspart (Novolog Insulin Sliding Scale) 0 units SUBQ Q6HR [facility] PRN Reason: Protocol Stop: 06/16/17 17:59 Last Admin: 04/23/17 17:50 Dose: Not Given Lorazepam (Ativan) 1 mg IVP Q4HR PRN; Protocol PRN Reason: AGITATION Stop: 06/17/17 13:27 Last Admin: 04/23/17 05:02 Dose: 1 mg Miscellaneous (Probiotic Screen) 1 [facility] PRN PRN PRN Reason: PROTOCOL Stop: 06/14/17 09:39 Miscellaneous (Clinical Monitoring) 1 [facility] DAILY PRN PRN Reason: RENAL Stop: 06/15/17 12:48 Miscellaneous (Tpn Per Pharmacy) 1 [facility] PRN PRN PRN Reason: PROTOCOL Stop: 06/16/17 12:28 Morphine Sulfate (Morphine) 4 mg IVP Q2HR PRN PRN Reason: Pain (Moderate) Stop: 06/15/17 10:53 Last Admin: 04/23/17 15:54 Dose: 4 mg Ondansetron HCl (Zofran) 4 mg IVP Q6H PRN PRN Reason: Nausea / Vomiting Stop: 06/13/17 20:08 Pantoprazole Sodium (Protonix) 40 mg IVP DAILY [facility] Stop: 06/15/17 08:59 Last Admin: 04/23/17 09:25 Dose: 40 mg General: Alert, Mild distress HEENT: Atraumatic, PERRLA, EOMI, Mucous membr. moist/pink Neck: Supple, +2 carotid pulse wo bruit Cardiovascular: Regular rate, Normal S1, Normal S2 Lungs: Other (diffuse rhonchi.) Abdomen: Soft, Distended, Other (left colostomy bag with the serosanguineous discharge. ROLANDO drain right side.) Extremities: Other (no edema and cyanosis.) Neurological: Other (Not following commands.) Psych/Mental Status: Other (gets agitated at times.) - Procedures Procedures: Procedures Procedure Code Date BYPASS SIGMOID COLON TO CUTANEOUS, OPEN APPROACH [id number] 04/14/17 PARTIAL REMOVAL OF COLON 82132 04/14/17 RESECTION OF SIGMOID COLON, OPEN APPROACH [id number] 04/14/17 RESPIRATORY VENTILATION, 24-96 CONSECUTIVE HOURS [id number] 04/14/17 VENT MGMT INPAT INIT DAY 34798 04/14/17 Assessment/Plan - Problem List Patient Problems: All Active Problems Abscess of sigmoid colon due to diverticulitis (Acute) K57.20 Diverticulitis of sigmoid colon (Acute) K57.32 Obesity (Acute) E66.9 Perforation of sigmoid colon due to diverticulitis (Acute) K57.20 Peritonitis (acute) generalized (Acute) K65.0 - Assessment Assessment: POD#9; s/p ex lap, sigmoid colectomy, drainage of peritonitis, lysis adhesions , ROLANDO drain placement 04/14 more awake and oriented, flat affect resp stable continue IVfluids fever intermittently, normal WBC ROLANDO drain expected output adequate urine output; BUN/Creat downtrending, renal f/u dvt prophylaxis Lovenox SQ supportive care.... s/w family guarded prognosis. colostomy intact, mildly dusky mucosa. retracted, but functional..... poor candidate for revision of colostomy CT results noted 04/20. infected abd wound, laura removed, and wound opened and packed, wound vac applied continue iv abx. Nutritional Asmnt/Malnutr-PDOC - Dietary Evaluation Malnutrition Findings (Please click <Entered> for more info): Nutritional Asmnt/Malnutrition Start: 04/19/17 14: 21 Text: Status: Complete Freq: Document 04/19/17 14:21 GSUN (Rec: 04/19/17 14:58 [id number]) Nutritional Asmnt/Malnutrition Patient General Information Nutritional Screening Moderate Risk Screening Diagnosis Sepsis, diverticulitis, peritonitis Pertinent Medical Hx/Surgical Hx Asthma, diverticulosis Subjective Information 56 year old male frome home. Pt was restless, moving extremities during visit. 04/14 : sigmoid colectomy, end colostomy, abscess drainage, diffuse peritontis. 04/16: pt started PPN. 04/17: central line and started on TPN. Spoke to family at bedside, explained parenteral nutrition , family undersoto and has no further question at this time. Weight discrepancies noted in EMR, family does not know UBW , estimated nutritional needs based Current Diet Order/ Nutrition Support TPN D10% AA4.25% at 90ml/hr with IL20% 150ml, providing 1401.6kcal Pertinent Medications Dilaudid, Novolog, Culturelle, Magnesium Sulfate, Vancomycin , TPN, Morphine, Multivitamins , Zofran, Protonix, Nacl0.9% Pertinent Labs 04/14: triglycerides 106, total bilirubin 1.1H, glucose 116H 04/17: magnesium 2.5, phsophorus 3.2 04/19: magnesium 1.8L, phosphorus 2.4L, BUN 28H, creatinine 1.3, glucose 154H, total bilirubin 1.1H, triglycerides 238H Nutritional Hx/Data Height 1.7 m Height (Calculated Centimeters) 170.2 Current Weight (lbs) 95.254 kg Weight (Calculated Kilograms) 95.3 Weight (Calculated Grams) 48812.4 [place] Body Weight 148 Weight Status Overweight GI Symptoms Skin Integrity/Comment: [place] 14. Facial non-pitting 1+, bilateral hands pitting 1+ Estimated Nutritional Goals Calories/Kcals/Kg IBW 148/67.3kg Kcals Calculated 2019-2356kcal (30-35kcal/kg) Protein Calculated 101-135g (1.5-2g/kg) Fluid: ml Per MD Nutritional Problem 1. Problem Problem Altered GI function related to Etiology abscess and perforation of sigmoid colon due to diverticulitis aeb Signs/Symptoms: post-operative, on TPN Intervention/Recommendation Comments 1. Recommend TPN D15% AA5.5% at 100ml/hr with IL20% 150ml, providing 2400ml total volume, 2052kcal, 132g protein, meeting 100% of estimated nutritional needs. Carb load 2 .6mg/kg/min (using 210lb adm weight). 2. Monitor for possible refeeding syndrome, 04/18: phsophorus 2.1L, 04/19: magnesium 1.9. 3. Monitor triglycerides, total bilirubin, glucose, renal labs. Expected Outcomes/Goals Expected Outcomes/Goals 1. Pt to meet 100% of estimated nutritional needs on TPN.
[2017-04-24] MEDS: Morphine Sulfate 4 mg/mL 1mL Syr IVP PRN ×4 (00:10→20:13)
[2017-04-24] MEDS: INSULIN ASPART SLIDING SCALE 100 UNITS/ML UNIT SUBQ SCH ×4 (00:22→18:12)
[2017-04-24] MEDS: Albuterol/Ipratropium Neb 3 ML AERS HHN SCH ×6 (02:37→22:10)
[2017-04-24 06:06] LABS: % BASOPHILS 0.1 % (0.0-2.0); % EOSINOPHILS 0.9 % (0.0-5.0); % LYMPHOCYTES 12.7 % (20.0-50.0); % MONOCYTES 5.8 % (2.0-10.0); % NEUTROPHILS 80.5 % (40.0-80.0); HEMATOCRIT 26.4 % (39.0-49.0); HEMOGLOBIN 8.6 gm/dL (13.2-17.3); MEAN CELL VOLUME 79.6 fl (80-99); MEAN CORPUSCULAR HGB CONC 32.6 pg (28.0-36.0); NEUTROPHILE ABSOLUTE 10.2 Th/cmm (1.8-8.0); PLATELET COUNT 638 Th/cmm (150-400); RED BLOOD COUNT 3.32 Mil/cmm (4.30-5.70); RED CELL DISTRIBUTION WIDTH 15.1 % (11.5-20.0)
[2017-04-24 06:18] LABS: WHITE BLOOD COUNT 12.6 Th/cmm (4.8-10.8)
[2017-04-24 06:22] LABS: MAGNESIUM 1.9 mg/dL (1.9-2.7); PHOSPHOROUS 2.1 mg/dL (2.5-5.0)
[2017-04-24 06:27] LABS: ALB/GLOB RATIO 0.6 (1.0-1.8); ANION GAP 9.1 (7.0-16.0); BILIRUBIN,TOTAL 0.7 mg/dL (0.3-1.0); BUN/CREATININE RATIO 11.5; CALCIUM SERUM 8.8 mg/dL (8.6-10.3); CARBON DIOXIDE 24.9 mEq/L (21.0-31.0)
[2017-04-24] MEDS ORDERED: D5-0.45NS 1,000 ML IV SCH (06:44)
[2017-04-24] MEDS: Budesonide 0.5 Mg/2 mL Ud HHN SCH (06:55)
[2017-04-24] MEDS ORDERED: Sodium Phosphate 15 MMOLE in Sodium Chloride 0.9% 250 ML IV ONE (11:00)
--- NOTE | 2017-04-24 11:21 | General Progress Note ---
Subjective - Review of Systems Subjective: Patient is seen and examined. Patient is lethargic. Patient is not following any commands as compared to yesterday's mental status. Patient remained tachycardic. EKG obtained consistent with sinus tachycardia with rate of 148. Patient has wound VAC now. Consultants of notes are reviewed. Objective - Results Result Diagrams: 04/24/17 05:30 04/24/17 05:30 Recent Labs: Laboratory Last Values WBC 12.6 Th/cmm (4.8-10.8) H 04/24/17 05:30 RBC 3.32 Mil/cmm (4.30-5.70) L 04/24/17 05:30 Hgb 8.6 gm/dL (13.2-17.3) L 04/24/17 05:30 Hct 26.4 % (39.0-49.0) L 04/24/17 05:30 MCV 79.6 fl (80-99) L 04/24/17 05:30 MCH 26.0 pg (26.0-30.0) 04/24/17 05:30 MCHC Differential 32.6 pg (28.0-36.0) 04/24/17 05:30 RDW 15.1 % (11.5-20.0) 04/24/17 05:30 Plt Count 638 Th/cmm (150-400) H 04/24/17 05:30 MPV 8.0 fl 04/24/17 05:30 Neutrophils % 80.5 % (40.0-80.0) H 04/24/17 05:30 Band Neutrophils % 3 % (0-10) 04/19/17 04:40 Lymphocytes % 12.7 % (20.0-50.0) L 04/24/17 05:30 Monocytes % 5.8 % (2.0-10.0) 04/24/17 05:30 Eosinophils % 0.9 % (0.0-5.0) 04/24/17 05:30 Basophils % 0.1 % (0.0-2.0) 04/24/17 05:30 Neutrophils (Manual) 79 % (40-80) 04/22/17 05:04 Lymphocytes 14 % (20-50) L 04/22/17 05:04 Monocytes 6 % (2-10) 04/22/17 05:04 Eosinophils 1 % (0-5) 04/19/17 04:40 Metamyelocytes 1 % (0-0) H 04/22/17 05:04 Platelet Estimate INCREASED PLATELETS (NORMAL) 04/22/17 05:04 Platelet Morphology NORMAL (NORMAL) 04/22/17 05:04 Anisocytosis 1+ 04/22/17 05:04 RBC Morph Micro Appear ABNORMAL (NORMAL) 04/22/17 05:04 ESR > 140 mm/hr (0-20) H 04/20/17 07:00 PT 12.9 SECONDS (9.5-11.5) H 04/14/17 14:55 INR 1.23 (0.5-1.4) 04/14/17 14:55 PTT (Actin FS) 29.8 SECONDS (26.0-38.0) 04/14/17 14:55 Specimen Source Arterial 04/20/17 12:13 Sample Site RB 04/20/17 12:13 pH 7.51 (7.35-7.45) H 04/20/17 12:13 pCO2 32.0 mmHg (35.0-45.0) L 04/20/17 12:13 pO2 116.0 mmHg (80.0-100.0) H 04/20/17 12:13 HCO3 27.2 mEq/L (20.0-26.0) H 04/20/17 12:13 Base Excess 2.9 mEq/L (-3.0-3.0) 04/20/17 12:13 O2 Saturation 99.0 % (92.0-100.0) 04/20/17 12:13 Chau Test YES 04/19/17 09:00 Vent Rate NA 04/19/17 09:00 Inspired O2 32 04/20/17 12:13 Tidal Volume NA 04/19/17 09:00 PEEP NA 04/19/17 09:00 Pressure (ins/psv/peep) NA 04/19/17 09:00 Critical Value PW 04/20/17 12:13 Sodium 142 mEq/L (136-145) 04/24/17 05:30 Potassium 4.0 mEq/L (3.5-5.1) 04/24/17 05:30 Chloride 112 mEq/L (98-107) H 04/24/17 05:30 Carbon Dioxide 24.9 mEq/L (21.0-31.0) 04/24/17 05:30 Anion Gap 9.1 (7.0-16.0) 04/24/17 05:30 BUN 23 mg/dL (7-25) 04/24/17 05:30 Creatinine 2.0 mg/dL (0.7-1.3) H 04/24/17 05:30 Est GFR ( Amer) 44.5 ml/min (>90) 04/24/17 05:30 Est GFR (Non-Af Amer) 36.8 ml/min 04/24/17 05:30 BUN/Creatinine Ratio 11.5 04/24/17 05:30 Glucose 197 mg/dL (70-105) H 04/24/17 05:30 POC Glucose 176 MG/DL (70 - 105) H 04/24/17 05:54 Hemoglobin A1c % 6.7 % (4.0-6.0) H 04/22/17 05:04 Whole Bld Lactic Acid 1.53 mmol/L (0.60-1.99) 04/14/17 14:55 Uric Acid 3.6 mg/dL (4.4-7.6) L 04/20/17 07:00 Calcium 8.8 mg/dL (8.6-10.3) 04/24/17 05:30 Phosphorus 2.1 mg/dL (2.5-5.0) L 04/24/17 05:30 Magnesium 1.9 mg/dL (1.9-2.7) 04/24/17 05:30 Total Bilirubin 0.7 mg/dL (0.3-1.0) 04/24/17 05:30 AST 38 U/L (13-39) 04/24/17 05:30 ALT 30 U/L (7-52) 04/24/17 05:30 Alkaline Phosphatase 62 U/L (34-104) 04/24/17 05:30 Creatine Kinase 136 U/L (30-223) 04/14/17 14:55 Troponin I 0.01 ng/mL (0.01-0.05) 04/22/17 05:04 C-Reactive Protein 28.9 mg/dL (0.0-0.9) H 04/20/17 07:00 B-Natriuretic Peptide 85.5 pg/mL (5.0-100.0) 04/14/17 14:55 Total Protein 6.9 gm/dL (6.0-8.3) 04/24/17 05:30 Albumin 2.5 gm/dL (4.2-5.5) L 04/24/17 05:30 Globulin 4.4 gm/dL 04/24/17 05:30 Albumin/Globulin Ratio 0.6 (1.0-1.8) L 04/24/17 05:30 Prealbumin 8 mg/dL (10-36) L 04/19/17 19:20 Triglycerides 252 mg/dL (<150) H 04/24/17 05:30 Cholesterol 89 mg/dL (<200) 04/24/17 04:30 LDL Cholesterol Direct 38 mg/dL (75-193) L 04/14/17 14:55 HDL Cholesterol 13 mg/dL (23-92) L 04/14/17 14:55 Amylase 31 U/L (29-103) 04/14/17 14:55 Lipase 15 U/L (11-82) 04/14/17 14:55 Urine Source CLEAN C 04/14/17 15:05 Urine Color ORANGE 04/14/17 15:05 Urine Clarity SLIGHT HAZY (CLEAR) 04/14/17 15:05 Urine pH 5.5 04/14/17 15:05 Ur Specific [place] 1.020 (1.005-1.030) 04/14/17 15:05 Urine Protein 100 mg/dL (NEGATIVE) H 04/14/17 15:05 Urine Glucose (UA) NEGATIVE mg/dL (NEGATIVE) 04/14/17 15:05 Urine Ketones 15 mg/dL (NEGATIVE) H 04/14/17 15:05 Urine Blood SMALL (NEGATIVE) H 04/14/17 15:05 Urine Nitrate NEGATIVE (NEGATIVE) 04/14/17 15:05 Urine Bilirubin SMALL (NEGATIVE) H 04/14/17 15:05 Urine Urobilinogen 1.0 E.U./dL (0.2 - 1.0) 04/14/17 15:05 Ur Leukocyte Esterase NEGATIVE (NEGATIVE) 04/14/17 15:05 Urine RBC 2-5 /hpf (0-5) H 04/14/17 15:05 Urine WBC 0-2 /hpf (0-5) 04/14/17 15:05 Ur Epithelial Cells OCCASIONAL /lpf (FEW) 04/14/17 15:05 Amorphous Sediment MANY URATES (NONE SEEN) 04/14/17 15:05 Urine Bacteria 1+ /hpf (NONE SEEN) H 04/14/17 15:05 Vancomycin Trough 13.5 ug/mL (10-20) 04/19/17 19:20 Blood Type O POSITIVE 04/14/17 20:36 Antibody Screen NEGATIVE 04/14/17 20:36 - Physical Exam Vitals and I&O: Vital Signs Temp 98.9 F 04/23/17 20:00 Pulse 148 04/24/17 11:05 Resp 20 04/24/17 11:05 BP 123/90 04/24/17 07:10 Pulse Ox 98 04/24/17 11:05 Intake & Output 04/23/17 04/24/17 04/24/17 18:59 06:59 18:59 Intake Total 2374.667 100 Output Total 15 5 Balance 2359.667 100 -5 Weight (lbs) 97.778 kg 98.838 kg Intake: Intake, IV Amount 1014.667 100 Dextrose 5% 1,000 ml @ 40 914.667 mls/hr IV .Q24H [facility] Rx#: [id number] Piperacillin Sodium/ 100 100 Tazobact 4.5 gm In Sodium Chloride 0.9% 100 ml @ 100 mls/hr IV Q6HR [facility] Rx #:[id number] Oral 280 TPN/PPN 1080 Output: Drainage 15 5 Right Lower Abdomen 15 5 Other: # Voids 5 # Bowel Movements 0 Stool Characteristics Liquid Brown Green Active Medications: Current Medications Acetaminophen (Tylenol) 650 mg PO Q6H PRN PRN Reason: FEVER/PAIN Stop: 06/21/17 17:45 Last Admin: 04/23/17 15:55 Dose: 650 mg Albuterol/Ipratropium (Duoneb Neb) 3 ml HHN Q4HRT [facility] Stop: 06/15/17 14:59 Last Admin: 04/24/17 11:01 Dose: 3 ml Budesonide (Pulmicort) 0.5 mg HHN BIDRT [facility] Stop: 06/15/17 18:59 Last Admin: 04/24/17 06:55 Dose: 0.5 mg Piperacillin Sod/Tazobactam (Sod 4.5 gm/ Sodium Chloride) 100 mls @ 100 mls/hr IV Q6HR [facility] Stop: 06/14/17 00:00 Last Admin: 04/24/17 06:06 Dose: 100 mls/hr Multivitamins/Minerals 10 ml/Dextrose/ Amino Acids/Electrolytes/ Fat Emulsion Intravenous/ Sterile Water 2,242 mls @ 90 mls/hr IV .Q24H [facility] Stop: 06/22/17 15:59 Last Admin: 04/23/17 16:00 Dose: 90 mls/hr Dextrose/Sodium Chloride (D5-0.45ns) 1,000 mls @ 50 mls/hr IV .Q20H [facility] Stop: 06/23/17 06:43 Sodium Phosphate 15 mmole/ (Sodium Chloride) 255 mls @ 42 mls/hr IV ONCE ONE Stop: 04/24/17 17:04 Insulin Aspart (Novolog Insulin Sliding Scale) 0 units SUBQ Q6HR [facility] PRN Reason: Protocol Stop: 06/16/17 17:59 Last Admin: 04/24/17 06:07 Dose: 2 units Lorazepam (Ativan) 1 mg IVP Q4HR PRN; Protocol PRN Reason: AGITATION Stop: 06/17/17 13:27 Last Admin: 04/24/17 10:39 Dose: 1 mg Miscellaneous (Probiotic Screen) 1 [facility] PRN PRN PRN Reason: PROTOCOL Stop: 06/14/17 09:39 Miscellaneous (Clinical Monitoring) 1 [facility] DAILY PRN PRN Reason: RENAL Stop: 06/15/17 12:48 Miscellaneous (Tpn Per Pharmacy) 1 [facility] PRN PRN PRN Reason: PROTOCOL Stop: 06/16/17 12:28 Morphine Sulfate (Morphine) 4 mg IVP Q2HR PRN PRN Reason: Pain (Moderate) Stop: 06/15/17 10:53 Last Admin: 04/24/17 10:40 Dose: 4 mg Ondansetron HCl (Zofran) 4 mg IVP Q6H PRN PRN Reason: Nausea / Vomiting Stop: 06/13/17 20:08 Pantoprazole Sodium (Protonix) 40 mg IVP DAILY [facility] Stop: 06/15/17 08:59 Last Admin: 04/24/17 10:30 Dose: 40 mg General: Alert, Mild distress, Other (confused) HEENT: Atraumatic, PERRLA, EOMI, Mucous membr. moist/pink Neck: Supple, +2 carotid pulse wo bruit Cardiovascular: Regular rate, Normal S1, Normal S2 Lungs: Other (diffuse rhonchi.) Abdomen: Soft, Distended, Other ( wound VAC anterior abdominal wall wound. L colostomy+) Extremities: Other (no edema and cyanosis.) Neurological: Other (patient is more confused) Psych/Mental Status: Other (gets agitated at times.) - Procedures Procedures: Procedures Procedure Code Date BYPASS SIGMOID COLON TO CUTANEOUS, OPEN APPROACH [id number] 04/14/17 PARTIAL REMOVAL OF COLON 89620 04/14/17 RESECTION OF SIGMOID COLON, OPEN APPROACH [id number] 04/14/17 RESPIRATORY VENTILATION, 24-96 CONSECUTIVE HOURS [id number] 04/14/17 VENT MGMT INPAT INIT DAY 91076 04/14/17 Assessment/Plan - Problem List Patient Problems: All Active Problems Abscess of sigmoid colon due to diverticulitis (Acute) K57.20 Diverticulitis of sigmoid colon (Acute) K57.32 Obesity (Acute) E66.9 Perforation of sigmoid colon due to diverticulitis (Acute) K57.20 Peritonitis (acute) generalized (Acute) K65.0 - Assessment Assessment: Current Active Problems Problem Status Onset Abscess of sigmoid colon due to diverticulitis Acute Diverticulitis of sigmoid colon Acute Obesity Acute Perforation of sigmoid colon due to diverticulitis Acute Peritonitis (acute) generalized Acute Perforated sigmoid diverticulitis status post exploratory laparotomy and sigmoid colectomy intra-abdominal abscess drainage lysis of adhesion and Ada procedure and colostomy. Postoperative respiratory failure. Obesity. Polymicrobial peritonitis. Asthma. Electrolyte imbalance. SEKOU most likely secondary to vancomycin and possible Zosyn. Encephalopathy due to metabolic and infectious etio. Open surgical wound . Altered mental status secondary to metabolic and infectious encephalopathy. Increasing agitation at time. Postop anemia. - Plan Plan: Wound Vac as per surgery. IVF. Transfer him to ICU. Correct electrolytes. IV antibiotics as per ID. Cardiology consult. Insert Thorne catheter. Monitor strict I's and O's. Continue oxygen, HHN. Pulmonary follow-up. GI and DVT prophylaxis. Follow-up lab. Colostomy care. Post op follow up as per surgery. Guarded prognosis. Follow up on consultants recommendations. Symptoms management. Medication management. Overall prognosis is guarded. Care plan discussed with RN. Nutritional Asmnt/Malnutr-PDOC - Dietary Evaluation Malnutrition Findings (Please click <Entered> for more info): Nutritional Asmnt/Malnutrition Start: 04/19/17 14: 21 Text: Status: Complete Freq: Document 04/19/17 14:21 SHAYAN (Rec: 04/19/17 14:58 [id number]) Nutritional Asmnt/Malnutrition Patient General Information Nutritional Screening Moderate Risk Screening Diagnosis Sepsis, diverticulitis, peritonitis Pertinent Medical Hx/Surgical Hx Asthma, diverticulosis Subjective Information 56 year old male frome home. Pt was restless, moving extremities during visit. 04/14 : sigmoid colectomy, end colostomy, abscess drainage, diffuse peritontis. 04/16: pt started PPN. 04/17: central line and started on TPN. Spoke to family at bedside, explained parenteral nutrition , family undersoto and has no further question at this time. Weight discrepancies noted in EMR, family does not know UBW , estimated nutritional needs based Current Diet Order/ Nutrition Support TPN D10% AA4.25% at 90ml/hr with IL20% 150ml, providing 1401.6kcal Pertinent Medications Dilaudid, Novolog, Culturelle, Magnesium Sulfate, Vancomycin , TPN, Morphine, Multivitamins , Zofran, Protonix, Nacl0.9% Pertinent Labs 04/14: triglycerides 106, total bilirubin 1.1H, glucose 116H 04/17: magnesium 2.5, phsophorus 3.2 04/19: magnesium 1.8L, phosphorus 2.4L, BUN 28H, creatinine 1.3, glucose 154H, total bilirubin 1.1H, triglycerides 238H Nutritional Hx/Data Height 1.7 m Height (Calculated Centimeters) 170.2 Current Weight (lbs) 95.254 kg Weight (Calculated Kilograms) 95.3 Weight (Calculated Grams) 95633.4 [place] Body Weight 148 Weight Status Overweight GI Symptoms Skin Integrity/Comment: [place] 14. Facial non-pitting 1+, bilateral hands pitting 1+ Estimated Nutritional Goals Calories/Kcals/Kg IBW 148/67.3kg Kcals Calculated 2019-2356kcal (30-35kcal/kg) Protein Calculated 101-135g (1.5-2g/kg) Fluid: ml Per MD Nutritional Problem 1. Problem Problem Altered GI function related to Etiology abscess and perforation of sigmoid colon due to diverticulitis aeb Signs/Symptoms: post-operative, on TPN Intervention/Recommendation Comments 1. Recommend TPN D15% AA5.5% at 100ml/hr with IL20% 150ml, providing 2400ml total volume, 2052kcal, 132g protein, meeting 100% of estimated nutritional needs. Carb load 2 .6mg/kg/min (using 210lb adm weight). 2. Monitor for possible refeeding syndrome, 04/18: phsophorus 2.1L, 04/19: magnesium 1.9. 3. Monitor triglycerides, total bilirubin, glucose, renal labs. Expected Outcomes/Goals Expected Outcomes/Goals 1. Pt to meet 100% of estimated nutritional needs on TPN.
[2017-04-24 11:46] LABS: ABG SOURCE Arterial; ALLEN TEST PASS; HCO3 27.3 mEq/L (20.0-26.0); pH 7.45 (7.35-7.45)
[2017-04-24 11:47] LABS: CRITICAL VALUES REPORTED BY PW; FIO2 32
[2017-04-24] MEDS: TPN 10%-70% CUSTOM IV SCH (18:07)
--- NOTE | 2017-04-24 19:53 | Infectious Disease Prog Note ---
Infectious Disease Subjective - Review of Systems Service Date: 04/24/17 Events since last encounter: became septic again and transferred to the ICU. Subjective: Patient has developed fever and tachycardia. He is on TPN. As his HR went up to 150s, he was transferred to the ICU. Infectious Disease Objective - Results Result Diagrams: 04/24/17 05:30 04/24/17 05:30 Recent Labs: Laboratory Last Values WBC 12.6 Th/cmm (4.8-10.8) H 04/24/17 05:30 RBC 3.32 Mil/cmm (4.30-5.70) L 04/24/17 05:30 Hgb 8.6 gm/dL (13.2-17.3) L 04/24/17 05:30 Hct 26.4 % (39.0-49.0) L 04/24/17 05:30 MCV 79.6 fl (80-99) L 04/24/17 05:30 MCH 26.0 pg (26.0-30.0) 04/24/17 05:30 MCHC Differential 32.6 pg (28.0-36.0) 04/24/17 05:30 RDW 15.1 % (11.5-20.0) 04/24/17 05:30 Plt Count 638 Th/cmm (150-400) H 04/24/17 05:30 MPV 8.0 fl 04/24/17 05:30 Neutrophils % 80.5 % (40.0-80.0) H 04/24/17 05:30 Band Neutrophils % 3 % (0-10) 04/19/17 04:40 Lymphocytes % 12.7 % (20.0-50.0) L 04/24/17 05:30 Monocytes % 5.8 % (2.0-10.0) 04/24/17 05:30 Eosinophils % 0.9 % (0.0-5.0) 04/24/17 05:30 Basophils % 0.1 % (0.0-2.0) 04/24/17 05:30 Neutrophils (Manual) 79 % (40-80) 04/22/17 05:04 Lymphocytes 14 % (20-50) L 04/22/17 05:04 Monocytes 6 % (2-10) 04/22/17 05:04 Eosinophils 1 % (0-5) 04/19/17 04:40 Metamyelocytes 1 % (0-0) H 04/22/17 05:04 Platelet Estimate INCREASED PLATELETS (NORMAL) 04/22/17 05:04 Platelet Morphology NORMAL (NORMAL) 04/22/17 05:04 Anisocytosis 1+ 04/22/17 05:04 RBC Morph Micro Appear ABNORMAL (NORMAL) 04/22/17 05:04 ESR > 140 mm/hr (0-20) H 04/20/17 07:00 PT 12.9 SECONDS (9.5-11.5) H 04/14/17 14:55 INR 1.23 (0.5-1.4) 04/14/17 14:55 PTT (Actin FS) 29.8 SECONDS (26.0-38.0) 04/14/17 14:55 Specimen Source Arterial 04/24/17 11:34 Sample Site Right Radial 04/24/17 11:34 pH 7.45 (7.35-7.45) 04/24/17 11:34 pCO2 39.0 mmHg (35.0-45.0) 04/24/17 11:34 pO2 90.0 mmHg (80.0-100.0) 04/24/17 11:34 HCO3 27.3 mEq/L (20.0-26.0) H 04/24/17 11:34 Base Excess 3.0 mEq/L (-3.0-3.0) 04/24/17 11:34 O2 Saturation 97.0 % (92.0-100.0) 04/24/17 11:34 Chau Test PASS 04/24/17 11:34 Vent Rate NA 04/19/17 09:00 Inspired O2 32 04/24/17 11:34 Tidal Volume NA 04/19/17 09:00 PEEP NA 04/19/17 09:00 Pressure (ins/psv/peep) NA 04/19/17 09:00 Critical Value PW 04/24/17 11:34 Sodium 142 mEq/L (136-145) 04/24/17 05:30 Potassium 4.0 mEq/L (3.5-5.1) 04/24/17 05:30 Chloride 112 mEq/L (98-107) H 04/24/17 05:30 Carbon Dioxide 24.9 mEq/L (21.0-31.0) 04/24/17 05:30 Anion Gap 9.1 (7.0-16.0) 04/24/17 05:30 BUN 23 mg/dL (7-25) 04/24/17 05:30 Creatinine 2.0 mg/dL (0.7-1.3) H 04/24/17 05:30 Est GFR ( Amer) 44.5 ml/min (>90) 04/24/17 05:30 Est GFR (Non-Af Amer) 36.8 ml/min 04/24/17 05:30 BUN/Creatinine Ratio 11.5 04/24/17 05:30 Glucose 197 mg/dL (70-105) H 04/24/17 05:30 POC Glucose 204 MG/DL (70 - 105) H 04/24/17 18:11 Hemoglobin A1c % 6.7 % (4.0-6.0) H 04/22/17 05:04 Whole Bld Lactic Acid 1.53 mmol/L (0.60-1.99) 04/14/17 14:55 Uric Acid 3.6 mg/dL (4.4-7.6) L 04/20/17 07:00 Calcium 8.8 mg/dL (8.6-10.3) 04/24/17 05:30 Phosphorus 2.1 mg/dL (2.5-5.0) L 04/24/17 05:30 Magnesium 1.9 mg/dL (1.9-2.7) 04/24/17 05:30 Total Bilirubin 0.7 mg/dL (0.3-1.0) 04/24/17 05:30 AST 38 U/L (13-39) 04/24/17 05:30 ALT 30 U/L (7-52) 04/24/17 05:30 Alkaline Phosphatase 62 U/L (34-104) 04/24/17 05:30 Creatine Kinase 136 U/L (30-223) 04/14/17 14:55 Troponin I 0.01 ng/mL (0.01-0.05) 04/22/17 05:04 C-Reactive Protein 28.9 mg/dL (0.0-0.9) H 04/20/17 07:00 B-Natriuretic Peptide 85.5 pg/mL (5.0-100.0) 04/14/17 14:55 Total Protein 6.9 gm/dL (6.0-8.3) 04/24/17 05:30 Albumin 2.5 gm/dL (4.2-5.5) L 04/24/17 05:30 Globulin 4.4 gm/dL 04/24/17 05:30 Albumin/Globulin Ratio 0.6 (1.0-1.8) L 04/24/17 05:30 Prealbumin 8 mg/dL (10-36) L 04/19/17 19:20 Triglycerides 252 mg/dL (<150) H 04/24/17 05:30 Cholesterol 89 mg/dL (<200) 04/24/17 04:30 LDL Cholesterol Direct 38 mg/dL (75-193) L 04/14/17 14:55 HDL Cholesterol 13 mg/dL (23-92) L 04/14/17 14:55 Amylase 31 U/L (29-103) 04/14/17 14:55 Lipase 15 U/L (11-82) 04/14/17 14:55 Urine Source CLEAN C 04/14/17 15:05 Urine Color ORANGE 04/14/17 15:05 Urine Clarity SLIGHT HAZY (CLEAR) 04/14/17 15:05 Urine pH 5.5 04/14/17 15:05 Ur Specific [place] 1.020 (1.005-1.030) 04/14/17 15:05 Urine Protein 100 mg/dL (NEGATIVE) H 04/14/17 15:05 Urine Glucose (UA) NEGATIVE mg/dL (NEGATIVE) 04/14/17 15:05 Urine Ketones 15 mg/dL (NEGATIVE) H 04/14/17 15:05 Urine Blood SMALL (NEGATIVE) H 04/14/17 15:05 Urine Nitrate NEGATIVE (NEGATIVE) 04/14/17 15:05 Urine Bilirubin SMALL (NEGATIVE) H 04/14/17 15:05 Urine Urobilinogen 1.0 E.U./dL (0.2 - 1.0) 04/14/17 15:05 Ur Leukocyte Esterase NEGATIVE (NEGATIVE) 04/14/17 15:05 Urine RBC 2-5 /hpf (0-5) H 04/14/17 15:05 Urine WBC 0-2 /hpf (0-5) 04/14/17 15:05 Ur Epithelial Cells OCCASIONAL /lpf (FEW) 04/14/17 15:05 Amorphous Sediment MANY URATES (NONE SEEN) 04/14/17 15:05 Urine Bacteria 1+ /hpf (NONE SEEN) H 04/14/17 15:05 Vancomycin Trough 13.5 ug/mL (10-20) 04/19/17 19:20 Blood Type O POSITIVE 04/14/17 20:36 Antibody Screen NEGATIVE 04/14/17 20:36 - Physical Exam Vitals and I&O: Vital Signs Temp 99.6 F 04/24/17 15:00 Pulse 144 04/24/17 15:30 Resp 26 04/24/17 15:30 BP 116/64 04/24/17 15:00 Pulse Ox 99 04/24/17 18:00 Intake & Output 04/24/17 04/24/17 04/25/17 06:59 18:59 06:59 Intake Total 100 1380 Output Total 60 Balance 100 1320 Weight (lbs) 98.838 kg 90.718 kg Intake: Intake, IV Amount 100 200 Piperacillin Sodium/ 100 200 Tazobact 4.5 gm In Sodium Chloride 0.9% 100 ml @ 100 mls/hr IV Q6HR [facility] Rx #:[id number] Oral 100 TPN/PPN 1080 Output: Drainage 10 Left Lower Abdomen 5 Right Lower Abdomen 5 Other 50 Other: # Voids 6 Stool Characteristics Liquid Active Medications: Current Medications Acetaminophen (Tylenol) 650 mg PO Q6H PRN PRN Reason: FEVER/PAIN Stop: 06/21/17 17:45 Last Admin: 04/23/17 15:55 Dose: 650 mg Albuterol/Ipratropium (Duoneb Neb) 3 ml HHN Q4HRT [facility] Stop: 06/15/17 14:59 Last Admin: 04/24/17 15:30 Dose: 3 ml Budesonide (Pulmicort) 0.5 mg HHN BIDRT ARIAN Stop: 06/15/17 18:59 Last Admin: 04/24/17 06:55 Dose: 0.5 mg Piperacillin Sod/Tazobactam (Sod 4.5 gm/ Sodium Chloride) 100 mls @ 100 mls/hr IV Q6HR ARIAN Stop: 06/14/17 00:00 Last Admin: 04/24/17 18:21 Dose: 100 mls/hr Multivitamins/Minerals 10 ml/Dextrose/ Amino Acids/Electrolytes/ Fat Emulsion Intravenous 2,400 mls @ 100 mls/hr IV .Q24H ARIAN Stop: 06/23/17 15:59 Last Admin: 04/24/17 18:07 Dose: 100 mls/hr Dextrose/Sodium Chloride (D5-0.45ns) 1,000 mls @ 40 mls/hr IV .Q24H ARIAN Stop: 06/23/17 15:59 Insulin Aspart (Novolog Insulin Sliding Scale) 0 units SUBQ Q6HR ARIAN PRN Reason: Protocol Stop: 06/16/17 17:59 Last Admin: 04/24/17 18:12 Dose: 4 units Lorazepam (Ativan) 1 mg IVP Q4HR PRN; Protocol PRN Reason: AGITATION Stop: 06/17/17 13:27 Last Admin: 04/24/17 10:39 Dose: 1 mg Miscellaneous (Probiotic Screen) 1 [facility] PRN PRN PRN Reason: PROTOCOL Stop: 06/14/17 09:39 Miscellaneous (Clinical Monitoring) 1 [facility] DAILY PRN PRN Reason: RENAL Stop: 06/15/17 12:48 Miscellaneous (Tpn Per Pharmacy) 1 [facility] PRN PRN PRN Reason: PROTOCOL Stop: 06/16/17 12:28 Morphine Sulfate (Morphine) 4 mg IVP Q2HR PRN PRN Reason: Pain (Moderate) Stop: 06/15/17 10:53 Last Admin: 04/24/17 10:40 Dose: 4 mg Ondansetron HCl (Zofran) 4 mg IVP Q6H PRN PRN Reason: Nausea / Vomiting Stop: 06/13/17 20:08 Pantoprazole Sodium (Protonix) 40 mg IVP DAILY ARIAN Stop: 06/15/17 08:59 Last Admin: 04/24/17 10:30 Dose: 40 mg General: no acute distress, well developed, well nourished HEENT: atraumatic, normocephalic Neck: supple, no thyromegaly, no lymphadenopathy, no rigid Cardiovascular: S1S2, regular Lungs: clear to auscultation bilaterally, clear to percussion Abdomen: soft, tender, rebound, drain (ROLANDO drain x1), bowel sounds, obese, no distended, no hepatomegaly, no splenomegaly, no guarding Extremities: no cyanosis, no clubbing, no edema Neurological: awake, alert, oriented, CN 2-12 intact Skin: intact - Procedures Procedures: Procedures Procedure Code Date BYPASS SIGMOID COLON TO CUTANEOUS, OPEN APPROACH [id number] 04/14/17 PARTIAL REMOVAL OF COLON 29720 04/14/17 RESECTION OF SIGMOID COLON, OPEN APPROACH [id number] 04/14/17 RESPIRATORY VENTILATION, 24-96 CONSECUTIVE HOURS [id number] 04/14/17 VENT MGMT INPAT INIT DAY 55997 04/14/17 Infectious Disease Assmt/Plan - Problem List Patient Problems: All Active Problems Abscess of sigmoid colon due to diverticulitis (Acute) K57.20 Diverticulitis of sigmoid colon (Acute) K57.32 Obesity (Acute) E66.9 Perforation of sigmoid colon due to diverticulitis (Acute) K57.20 Peritonitis (acute) generalized (Acute) K65.0 - Assessment Assessment: 1. Sepsis.initially improved, but he developed sepsis again. 2. Diverticulitis, sigmoid diverticula to with support complicated by multiple abscesses and peritonitis. 3. Post operatively, on ventilator. 4. Peritonitis. Likely polymicrobial. 5. History of asthma. 6. History of arthritis. 7. Ileus improved 8. SEKOU. 9. Post op, paralytic ileus. improved. 10. Wrist cellulitis, worse on left with destruction of bones. X ray of the left wrist suggested osteomyelitis. Plan: Change antibiotics zyvox, meropenem and diflucan. Sepsis protocol initiated, Lactic acid was 1.3.KUB CXR, UA, urine c/s and blood c/s. DW patient's daughter. Nutritional Asmnt/Malnutr-PDOC - Dietary Evaluation Malnutrition Findings (Please click <Entered> for more info): Nutritional Asmnt/Malnutrition Start: 04/19/17 14: 21 Text: Status: Complete Freq: Document 04/19/17 14:21 GSUN (Rec: 04/19/17 14:58 SHAYAN [id number]) Nutritional Asmnt/Malnutrition Patient General Information Nutritional Screening Moderate Risk Screening Diagnosis Sepsis, diverticulitis, peritonitis Pertinent Medical Hx/Surgical Hx Asthma, diverticulosis Subjective Information 56 year old male frome home. Pt was restless, moving extremities during visit. 04/14 : sigmoid colectomy, end colostomy, abscess drainage, diffuse peritontis. 04/16: pt started PPN. 04/17: central line and started on TPN. Spoke to family at bedside, explained parenteral nutrition , family undersoto and has no further question at this time. Weight discrepancies noted in EMR, family does not know UBW , estimated nutritional needs based Current Diet Order/ Nutrition Support TPN D10% AA4.25% at 90ml/hr with IL20% 150ml, providing 1401.6kcal Pertinent Medications Dilaudid, Novolog, Culturelle, Magnesium Sulfate, Vancomycin , TPN, Morphine, Multivitamins , Zofran, Protonix, Nacl0.9% Pertinent Labs 04/14: triglycerides 106, total bilirubin 1.1H, glucose 116H 04/17: magnesium 2.5, phsophorus 3.2 04/19: magnesium 1.8L, phosphorus 2.4L, BUN 28H, creatinine 1.3, glucose 154H, total bilirubin 1.1H, triglycerides 238H Nutritional Hx/Data Height 1.7 m Height (Calculated Centimeters) 170.2 Current Weight (lbs) 95.254 kg Weight (Calculated Kilograms) 95.3 Weight (Calculated Grams) 62769.4 [place] Body Weight 148 Weight Status Overweight GI Symptoms Skin Integrity/Comment: [place] 14. Facial non-pitting 1+, bilateral hands pitting 1+ Estimated Nutritional Goals Calories/Kcals/Kg IBW 148/67.3kg Kcals Calculated 2019-2356kcal (30-35kcal/kg) Protein Calculated 101-135g (1.5-2g/kg) Fluid: ml Per MD Nutritional Problem 1. Problem Problem Altered GI function related to Etiology abscess and perforation of sigmoid colon due to diverticulitis aeb Signs/Symptoms: post-operative, on TPN Intervention/Recommendation Comments 1. Recommend TPN D15% AA5.5% at 100ml/hr with IL20% 150ml, providing 2400ml total volume, 2052kcal, 132g protein, meeting 100% of estimated nutritional needs. Carb load 2 .6mg/kg/min (using 210lb adm weight). 2. Monitor for possible refeeding syndrome, 04/18: phsophorus 2.1L, 04/19: magnesium 1.9. 3. Monitor triglycerides, total bilirubin, glucose, renal labs. Expected Outcomes/Goals Expected Outcomes/Goals 1. Pt to meet 100% of estimated nutritional needs on TPN.
--- NOTE | 2017-04-24 20:03 | Progress Notes ---
DATE: 04/14/2017 PULMONARY/CRITICAL PROGRESS NOTE PROBLEM LIST: 1. Acute respiratory failure, stable. 2. Status post abdominal surgery secondary to perforated bowel with peritonitis. 3. Obstructive sleep apnea syndrome. 4. Encephalopathy. SYMPTOMS: Nil. The patient was moved to ICU because of tachycardia though no respiratory distress, etc. PHYSICAL EXAMINATION: VITAL SIGNS: Temperature is around 99-100, heart rate is 130-144, respirations below 20s, saturation is in 90s in 2 liters of oxygen. ENT: Shows no new changes. CHEST: Shows diminished air entry with occasional rhonchi. HEART: Regular. ABDOMEN: Soft, nontender with some tenderness with a dressing. LABORATORY DATA: The patient's white count is 12.6, hemoglobin is 8.6 and ABG, pO2 is 90, this is on 3 liters of oxygen. Electrolytes are okay with creatinine 2.0, BUN is 23 and phosphorus 2.1. ASSESSMENT: The patient has persistent tachycardia, most likely this is septic ____ any primary lung issue, differential may be remote possibility of pulmonary effusion. PLANS AND SUGGESTIONS: We will go ahead and get DVT studies, in the meantime, continue other studies. Care and plan discussed with Dr. Kahn earlier and go from there. JOB# [id number]
[2017-04-24] MEDS: D5-0.45NS 1,000 ML IV SCH (20:22)
[2017-04-24 21:42] LABS: INR 1.13 (0.5-1.4); PROTHROMBIN TIME (TEST) 11.9 SECONDS (9.5-11.5)
[2017-04-24] MEDS ORDERED: Fluconazole 200mg/100mL 200 MG/100 ML BAG IV ONE ×2 (21:52→21:53)
[2017-04-24] MEDS ORDERED: Fluconazole 400mg/200mL 400 MG/200 ML BAG IV SCH (23:00)
[2017-04-24] MEDS: Fluconazole 200mg/100mL 200 MG/100 ML BAG IV SCH (23:15)
[2017-04-25] MEDS: Linezolid 600mg/300mL 600 MG/300 ML BAG IV SCH ×3 (00:09→20:21)
[2017-04-25] MEDS: Morphine Sulfate 4 mg/mL 1mL Syr IVP PRN ×3 (00:11→09:51)
[2017-04-25] MEDS: Meropenem 1 GM in Sodium Chloride 0.9% 100 ML IV SCH ×2 (00:50→11:44)
[2017-04-25] MEDS: INSULIN ASPART SLIDING SCALE 100 UNITS/ML UNIT SUBQ SCH ×4 (00:54→18:56)
[2017-04-25] MEDS: Albuterol/Ipratropium Neb 3 ML AERS HHN SCH ×6 (03:22→23:57)
[2017-04-25 05:28] LABS: % BASOPHILS 1.4 % (0.0-2.0); % EOSINOPHILS 1.6 % (0.0-5.0); % LYMPHOCYTES 15.1 % (20.0-50.0); % MONOCYTES 5.6 % (2.0-10.0); % NEUTROPHILS 76.3 % (40.0-80.0); HEMATOCRIT 26.9 % (39.0-49.0); HEMOGLOBIN 8.7 gm/dL (13.2-17.3); MEAN CELL VOLUME 79.7 fl (80-99); MEAN CORPUSCULAR HEMOGLOBIN 25.9 pg (26.0-30.0); MEAN CORPUSCULAR HGB CONC 32.4 pg (28.0-36.0); MEAN PLATELET VOLUME 8.4 fl; NEUTROPHILE ABSOLUTE 8.2 Th/cmm (1.8-8.0); PLATELET COUNT 632 Th/cmm (150-400); RED BLOOD COUNT 3.37 Mil/cmm (4.30-5.70); RED CELL DISTRIBUTION WIDTH 15.5 % (11.5-20.0); WHITE BLOOD COUNT 10.7 Th/cmm (4.8-10.8)
[2017-04-25 05:47] LABS: ALB/GLOB RATIO 0.6 (1.0-1.8); ANION GAP 10.4 (7.0-16.0); BILIRUBIN,TOTAL 0.6 mg/dL (0.3-1.0); BUN/CREATININE RATIO 13.2; CALCIUM SERUM 8.7 mg/dL (8.6-10.3); CARBON DIOXIDE 24.4 mEq/L (21.0-31.0); CREATININE - SERUM 2.2 mg/dL (0.7-1.3); MAGNESIUM 2.2 mg/dL (1.9-2.7); PHOSPHOROUS 3.9 mg/dL (2.5-5.0); POTASSIUM SERUM 3.8 mEq/L (3.5-5.1)
[2017-04-25] MEDS: Budesonide 0.5 Mg/2 mL Ud HHN SCH ×2 (07:20→19:12)
[2017-04-25 08:18] LABS: URINE BILIRUBIN NEGATIVE (NEGATIVE); URINE BLOOD SMALL (NEGATIVE); URINE COLOR YELLOW; URINE GLUCOSE (UA) NEGATIVE (NEGATIVE); URINE KETONE NEGATIVE (NEGATIVE); URINE PH 5.5; URINE PROTEIN TRACE mg/dL (NEGATIVE); URINE UROBILINOGEN 0.2 E.U./dL (0.2 - 1.0)
[2017-04-25 08:19] LABS: URINE BACTERIA FEW /hpf (NONE SEEN); URINE EPITHELIAL CELLS OCCASIONAL /lpf (FEW); URINE RBC 0-2 /hpf (0-5); URINE WBC 0-2 /hpf (0-5)
--- NOTE | 2017-04-25 08:32 | General Progress Note ---
Subjective - Review of Systems Service Date: 04/25/17 Subjective: confused again, obtunded, nonverbal Objective - Results Result Diagrams: 04/25/17 04:33 04/25/17 04:33 Recent Labs: Laboratory Last Values WBC 10.7 Th/cmm (4.8-10.8) 04/25/17 04:33 RBC 3.37 Mil/cmm (4.30-5.70) L 04/25/17 04:33 Hgb 8.7 gm/dL (13.2-17.3) L 04/25/17 04:33 Hct 26.9 % (39.0-49.0) L 04/25/17 04:33 MCV 79.7 fl (80-99) L 04/25/17 04:33 MCH 25.9 pg (26.0-30.0) L 04/25/17 04:33 MCHC Differential 32.4 pg (28.0-36.0) 04/25/17 04:33 RDW 15.5 % (11.5-20.0) 04/25/17 04:33 Plt Count 632 Th/cmm (150-400) H 04/25/17 04:33 MPV 8.4 fl 04/25/17 04:33 Neutrophils % 76.3 % (40.0-80.0) 04/25/17 04:33 Band Neutrophils % 3 % (0-10) 04/19/17 04:40 Lymphocytes % 15.1 % (20.0-50.0) L 04/25/17 04:33 Monocytes % 5.6 % (2.0-10.0) 04/25/17 04:33 Eosinophils % 1.6 % (0.0-5.0) 04/25/17 04:33 Basophils % 1.4 % (0.0-2.0) 04/25/17 04:33 Neutrophils (Manual) 79 % (40-80) 04/22/17 05:04 Lymphocytes 14 % (20-50) L 04/22/17 05:04 Monocytes 6 % (2-10) 04/22/17 05:04 Eosinophils 1 % (0-5) 04/19/17 04:40 Metamyelocytes 1 % (0-0) H 04/22/17 05:04 Platelet Estimate INCREASED PLATELETS (NORMAL) 04/22/17 05:04 Platelet Morphology NORMAL (NORMAL) 04/22/17 05:04 Anisocytosis 1+ 04/22/17 05:04 RBC Morph Micro Appear ABNORMAL (NORMAL) 04/22/17 05:04 ESR > 140 mm/hr (0-20) H 04/20/17 07:00 PT 11.9 SECONDS (9.5-11.5) H 04/24/17 21:19 INR 1.13 (0.5-1.4) 04/24/17 21:19 PTT (Actin FS) 27.6 SECONDS (26.0-38.0) 04/24/17 21:19 Specimen Source Arterial 04/24/17 11:34 Sample Site Right Radial 04/24/17 11:34 pH 7.45 (7.35-7.45) 04/24/17 11:34 pCO2 39.0 mmHg (35.0-45.0) 04/24/17 11:34 pO2 90.0 mmHg (80.0-100.0) 04/24/17 11:34 HCO3 27.3 mEq/L (20.0-26.0) H 04/24/17 11:34 Base Excess 3.0 mEq/L (-3.0-3.0) 04/24/17 11:34 O2 Saturation 97.0 % (92.0-100.0) 04/24/17 11:34 Chau Test PASS 04/24/17 11:34 Vent Rate NA 04/19/17 09:00 Inspired O2 32 04/24/17 11:34 Tidal Volume NA 04/19/17 09:00 PEEP NA 04/19/17 09:00 Pressure (ins/psv/peep) NA 04/19/17 09:00 Critical Value PW 04/24/17 11:34 Sodium 141 mEq/L (136-145) 04/25/17 04:33 Potassium 3.8 mEq/L (3.5-5.1) 04/25/17 04:33 Chloride 110 mEq/L (98-107) H 04/25/17 04:33 Carbon Dioxide 24.4 mEq/L (21.0-31.0) 04/25/17 04:33 Anion Gap 10.4 (7.0-16.0) 04/25/17 04:33 BUN 29 mg/dL (7-25) H 04/25/17 04:33 Creatinine 2.2 mg/dL (0.7-1.3) H 04/25/17 04:33 Est GFR ( Amer) 39.9 ml/min (>90) 04/25/17 04:33 Est GFR (Non-Af Amer) 33.0 ml/min 04/25/17 04:33 BUN/Creatinine Ratio 13.2 04/25/17 04:33 Glucose 174 mg/dL (70-105) H 04/25/17 04:33 POC Glucose 173 MG/DL (70 - 105) H 04/25/17 06:37 Hemoglobin A1c % 6.7 % (4.0-6.0) H 04/22/17 05:04 Whole Bld Lactic Acid 1.30 mmol/L (0.60-1.99) 04/24/17 21:19 Uric Acid 3.6 mg/dL (4.4-7.6) L 04/20/17 07:00 Calcium 8.7 mg/dL (8.6-10.3) 04/25/17 04:33 Phosphorus 3.9 mg/dL (2.5-5.0) 04/25/17 04:33 Magnesium 2.2 mg/dL (1.9-2.7) 04/25/17 04:33 Total Bilirubin 0.6 mg/dL (0.3-1.0) 04/25/17 04:33 AST 28 U/L (13-39) 04/25/17 04:33 ALT 24 U/L (7-52) 04/25/17 04:33 Alkaline Phosphatase 61 U/L (34-104) 04/25/17 04:33 Creatine Kinase 136 U/L (30-223) 04/14/17 14:55 Troponin I 0.01 ng/mL (0.01-0.05) 04/22/17 05:04 C-Reactive Protein 28.9 mg/dL (0.0-0.9) H 04/20/17 07:00 B-Natriuretic Peptide 85.5 pg/mL (5.0-100.0) 04/14/17 14:55 Total Protein 7.0 gm/dL (6.0-8.3) 04/25/17 04:33 Albumin 2.6 gm/dL (4.2-5.5) L 04/25/17 04:33 Globulin 4.4 gm/dL 04/25/17 04:33 Albumin/Globulin Ratio 0.6 (1.0-1.8) L 04/25/17 04:33 Prealbumin 8 mg/dL (10-36) L 04/19/17 19:20 Triglycerides 252 mg/dL (<150) H 04/24/17 05:30 Cholesterol 89 mg/dL (<200) 04/24/17 04:30 LDL Cholesterol Direct 38 mg/dL (75-193) L 04/14/17 14:55 HDL Cholesterol 13 mg/dL (23-92) L 04/14/17 14:55 Amylase 31 U/L (29-103) 04/14/17 14:55 Lipase 15 U/L (11-82) 04/14/17 14:55 Urine Source SEN PORT 04/25/17 07:35 Urine Color YELLOW 04/25/17 07:35 Urine Clarity CLEAR (CLEAR) 04/25/17 07:35 Urine pH 5.5 04/25/17 07:35 Ur Specific Hellier 1.015 (1.005-1.030) 04/25/17 07:35 Urine Protein TRACE mg/dL (NEGATIVE) 04/25/17 07:35 Urine Glucose (UA) NEGATIVE mg/dL (NEGATIVE) 04/25/17 07:35 Urine Ketones NEGATIVE mg/dL (NEGATIVE) 04/25/17 07:35 Urine Blood SMALL (NEGATIVE) H 04/25/17 07:35 Urine Nitrate NEGATIVE (NEGATIVE) 04/25/17 07:35 Urine Bilirubin NEGATIVE (NEGATIVE) 04/25/17 07:35 Urine Urobilinogen 0.2 E.U./dL (0.2 - 1.0) 04/25/17 07:35 Ur Leukocyte Esterase NEGATIVE (NEGATIVE) 04/25/17 07:35 Urine RBC 0-2 /hpf (0-5) H 04/25/17 07:35 Urine WBC 0-2 /hpf (0-5) 04/25/17 07:35 Ur Epithelial Cells OCCASIONAL /lpf (FEW) 04/25/17 07:35 Amorphous Sediment MANY URATES (NONE SEEN) 04/14/17 15:05 Urine Bacteria FEW /hpf (NONE SEEN) 04/25/17 07:35 Vancomycin Trough 13.5 ug/mL (10-20) 04/19/17 19:20 Blood Type O POSITIVE 04/14/17 20:36 Antibody Screen NEGATIVE 04/14/17 20:36 - Physical Exam Vitals and I&O: Vital Signs Temp 98.6 F 04/25/17 04:00 Pulse 134 04/25/17 07:20 Resp 20 04/25/17 07:20 BP 128/77 04/25/17 07:00 Pulse Ox 99 04/25/17 07:20 Intake & Output 04/24/17 04/25/17 04/25/17 18:59 06:59 18:59 Intake Total 1380 1180 Output Total 60 200 5 Balance 1320 980 -5 Weight (lbs) 90.718 kg 91.626 kg Intake: Intake, IV Amount 200 Piperacillin Sodium/ 200 Tazobact 4.5 gm In Sodium Chloride 0.9% 100 ml @ 100 mls/hr IV Q6HR [facility] Rx #:[id number] Oral 100 100 TPN/PPN 1080 1080 Output: Drainage 10 10 5 Left Lower Abdomen 5 Right Lower Abdomen 5 10 5 Other 50 190 Other: # Voids 6 2 Stool Characteristics Liquid Liquid Active Medications: Current Medications Acetaminophen (Tylenol) 650 mg PO Q6H PRN PRN Reason: FEVER/PAIN Stop: 06/21/17 17:45 Last Admin: 04/24/17 20:13 Dose: 650 mg Albuterol/Ipratropium (Duoneb Neb) 3 ml HHN Q4HRT [facility] Stop: 06/15/17 14:59 Last Admin: 04/25/17 07:11 Dose: 3 ml Budesonide (Pulmicort) 0.5 mg HHN BIDRT [facility] Stop: 06/15/17 18:59 Last Admin: 04/25/17 07:20 Dose: 0.5 mg Multivitamins/Minerals 10 ml/Dextrose/ Amino Acids/Electrolytes/ Fat Emulsion Intravenous 2,400 mls @ 100 mls/hr IV .Q24H [facility] Stop: 06/23/17 15:59 Last Admin: 04/24/17 18:07 Dose: 100 mls/hr Dextrose/Sodium Chloride (D5-0.45ns) 1,000 mls @ 40 mls/hr IV .Q24H [facility] Stop: 06/23/17 15:59 Last Admin: 04/24/17 20:22 Dose: 40 mls/hr Linezolid (Zyvox) 600 mg in 300 mls @ 300 mls/hr IV Q12HR [facility] Stop: 06/23/17 22:59 Last Admin: 04/25/17 00:09 Dose: 300 mls/hr Fluconazole (Diflucan) 200 mg in 100 mls @ 100 mls/hr IV Q24HR [facility] Stop: 06/23/17 22:59 Last Admin: 04/24/17 23:15 Dose: Not Given Meropenem 1 gm/ Sodium (Chloride) 100 mls @ 100 mls/hr IV Q12H [facility] Stop: 06/24/17 00:00 Last Admin: 04/25/17 00:50 Dose: 100 mls/hr Insulin Aspart (Novolog Insulin Sliding Scale) 0 units SUBQ Q6HR [facility] PRN Reason: Protocol Stop: 06/16/17 17:59 Last Admin: 04/25/17 07:04 Dose: 2 units Lorazepam (Ativan) 1 mg IVP Q4HR PRN; Protocol PRN Reason: AGITATION Stop: 06/17/17 13:27 Last Admin: 04/24/17 23:06 Dose: 1 mg Miscellaneous (Probiotic Screen) 1 ea PRN PRN PRN Reason: PROTOCOL Stop: 06/14/17 09:39 Miscellaneous (Clinical Monitoring) 1 ea DAILY PRN PRN Reason: RENAL Stop: 06/15/17 12:48 Miscellaneous (Tpn Per Pharmacy) 1 [facility] PRN PRN PRN Reason: PROTOCOL Stop: 06/16/17 12:28 Morphine Sulfate (Morphine) 4 mg IVP Q2HR PRN PRN Reason: Pain (Moderate) Stop: 06/15/17 10:53 Last Admin: 04/25/17 05:56 Dose: 4 mg Ondansetron HCl (Zofran) 4 mg IVP Q6H PRN PRN Reason: Nausea / Vomiting Stop: 06/13/17 20:08 Pantoprazole Sodium (Protonix) 40 mg IVP DAILY [facility] Stop: 06/15/17 08:59 Last Admin: 04/24/17 10:30 Dose: 40 mg General: Mild distress, Other (confused) HEENT: Atraumatic, PERRLA, EOMI, Mucous membr. moist/pink Neck: Supple, +2 carotid pulse wo bruit Cardiovascular: Regular rate, Normal S1, Normal S2 Lungs: Other (diffuse rhonchi.) Abdomen: Soft, Distended, Other ( wound VAC anterior abdominal wall wound. L colostomy+) Extremities: Other (no edema and cyanosis.) Neurological: Other (patient is more confused) Psych/Mental Status: Other (gets agitated at times.) - Procedures Procedures: Procedures Procedure Code Date BYPASS SIGMOID COLON TO CUTANEOUS, OPEN APPROACH [id number] 04/14/17 PARTIAL REMOVAL OF COLON 91048 04/14/17 RESECTION OF SIGMOID COLON, OPEN APPROACH [id number] 04/14/17 RESPIRATORY VENTILATION, 24-96 CONSECUTIVE HOURS [id number] 04/14/17 VENT MGMT INPAT INIT DAY 83725 04/14/17 Assessment/Plan - Problem List Patient Problems: All Active Problems Abscess of sigmoid colon due to diverticulitis (Acute) K57.20 Diverticulitis of sigmoid colon (Acute) K57.32 Obesity (Acute) E66.9 Perforation of sigmoid colon due to diverticulitis (Acute) K57.20 Peritonitis (acute) generalized (Acute) K65.0 - Assessment Assessment: POD#11; s/p ex lap, sigmoid colectomy, drainage of peritonitis, lysis adhesions , ROLANDO drain placement 04/14 transferred to icu last night. no abd pain, + bilat wrist pain confused, obtunded, mumbling words continue IVfluids +TPN tachycardia, fever intermittently, normal WBC ROLANDO drain expected output adequate urine output; BUN/Creat downtrending, recommend renal consultation dvt prophylaxis Lovenox SQ colostomy end necrosed and sloughed, severely retracted, but functional..... poor candidate for revision of colostomy CT results noted 04/20. infected abd wound, laura removed, and wound opened and packed, wound vac applied continue iv abx. sen cath placement obtain CT abd/pelvis today stat supportive care.... s/w family guarded prognosis. Nutritional Asmnt/Malnutr-PDOC - Dietary Evaluation Malnutrition Findings (Please click <Entered> for more info): Nutritional Asmnt/Malnutrition Start: 04/19/17 14: 21 Text: Status: Complete Freq: Document 04/19/17 14:21 GSUN (Rec: 04/19/17 14:58 [id number]) Nutritional Asmnt/Malnutrition Patient General Information Nutritional Screening Moderate Risk Screening Diagnosis Sepsis, diverticulitis, peritonitis Pertinent Medical Hx/Surgical Hx Asthma, diverticulosis Subjective Information 56 year old male frome home. Pt was restless, moving extremities during visit. 04/14 : sigmoid colectomy, end colostomy, abscess drainage, diffuse peritontis. 04/16: pt started PPN. 04/17: central line and started on TPN. Spoke to family at bedside, explained parenteral nutrition , family undersoto and has no further question at this time. Weight discrepancies noted in EMR, family does not know UBW , estimated nutritional needs based Current Diet Order/ Nutrition Support TPN D10% AA4.25% at 90ml/hr with IL20% 150ml, providing 1401.6kcal Pertinent Medications Dilaudid, Novolog, Culturelle, Magnesium Sulfate, Vancomycin , TPN, Morphine, Multivitamins , Zofran, Protonix, Nacl0.9% Pertinent Labs 04/14: triglycerides 106, total bilirubin 1.1H, glucose 116H 04/17: magnesium 2.5, phsophorus 3.2 04/19: magnesium 1.8L, phosphorus 2.4L, BUN 28H, creatinine 1.3, glucose 154H, total bilirubin 1.1H, triglycerides 238H Nutritional Hx/Data Height 1.7 m Height (Calculated Centimeters) 170.2 Current Weight (lbs) 95.254 kg Weight (Calculated Kilograms) 95.3 Weight (Calculated Grams) 63569.4 Jackson Body Weight 148 Weight Status Overweight GI Symptoms Skin Integrity/Comment: Gilmer 14. Facial non-pitting 1+, bilateral hands pitting 1+ Estimated Nutritional Goals Calories/Kcals/Kg IBW 148/67.3kg Kcals Calculated 2019-2356kcal (30-35kcal/kg) Protein Calculated 101-135g (1.5-2g/kg) Fluid: ml Per MD Nutritional Problem 1. Problem Problem Altered GI function related to Etiology abscess and perforation of sigmoid colon due to diverticulitis aeb Signs/Symptoms: post-operative, on TPN Intervention/Recommendation Comments 1. Recommend TPN D15% AA5.5% at 100ml/hr with IL20% 150ml, providing 2400ml total volume, 2052kcal, 132g protein, meeting 100% of estimated nutritional needs. Carb load 2 .6mg/kg/min (using 210lb adm weight). 2. Monitor for possible refeeding syndrome, 04/18: phsophorus 2.1L, 04/19: magnesium 1.9. 3. Monitor triglycerides, total bilirubin, glucose, renal labs. Expected Outcomes/Goals Expected Outcomes/Goals 1. Pt to meet 100% of estimated nutritional needs on TPN.
[2017-04-25 10:24] LABS: ABG SOURCE Arterial; ALLEN TEST Positive; BE(B) 0.9 mEq/L (-3.0-3.0); HCO3 25.7 mEq/L (20.0-26.0); pH 7.48 (7.35-7.45)
[2017-04-25 10:25] LABS: FIO2 28
--- NOTE | 2017-04-25 11:02 | Diagnostic Imaging Report ---
Exam: KUB HISTORY: Sepsis Findings Portable examination of the abdomen at 0929 hours reviewed. The study demonstrates distention of stomach with air. This distention small bowel large bowel with air consistent with ileus. Jean-Mchugh drainage in the lower pelvic area appreciated. No abnormal masses or calcifications are noted. Bony structures unremarkable for degenerative changes the lumbar spine. IMPRESSION: Ileus.
--- NOTE | 2017-04-25 11:04 | Diagnostic Imaging Report ---
Exam: Portable examination of chest HISTORY: Shortness of breath. Findings: Portable examination of the chest at 0920 hours reviewed no prior studies available for comparison The study demonstrates no active pulmonic infiltrates or effusions. Right jugular catheter terminates in superior vena cava. There is evidence for left hilar adenopathy cannot be excluded. This might also represent prominent pulmonary artery. CT examination of chest is recommended. The costophrenic angles are clear no acute pulmonic infiltrates appreciated bony thorax is intact. IMPRESSION 1. No acute disease 2. Prominence of left hilar area adenopathy cannot be excluded CT examination of chest is recommended as well as comparison to old studies would be helpful.
[2017-04-25] MEDS ORDERED: Diltiazem 5 mg/mL 5mL Vial IVP STA (12:31)
[2017-04-25] MEDS ORDERED: NICARDIPINE 20 MG/200 ML IV SCH (12:45)
[2017-04-25] MEDS ORDERED: Diltiazem 5 mg/mL 5mL Vial IVP ONE (12:54)
--- NOTE | 2017-04-25 17:49 | General Progress Note ---
Subjective - Review of Systems Subjective: Patient is seen and examined. Patient is MICU bed and 10. Patient just came back from a CT ,report is unavailable. As per nursing staff patient has some colostomy output and patient is burping. Patient has minimal ROLANDO drain. Patient spiked fever of 103. Patient is to remain tachycardic. He is on IV Cardizem drip started by turnaround engineer. Objective - Results Result Diagrams: 04/25/17 04:33 04/25/17 04:33 Recent Labs: Laboratory Last Values WBC 10.7 Th/cmm (4.8-10.8) 04/25/17 04:33 RBC 3.37 Mil/cmm (4.30-5.70) L 04/25/17 04:33 Hgb 8.7 gm/dL (13.2-17.3) L 04/25/17 04:33 Hct 26.9 % (39.0-49.0) L 04/25/17 04:33 MCV 79.7 fl (80-99) L 04/25/17 04:33 MCH 25.9 pg (26.0-30.0) L 04/25/17 04:33 MCHC Differential 32.4 pg (28.0-36.0) 04/25/17 04:33 RDW 15.5 % (11.5-20.0) 04/25/17 04:33 Plt Count 632 Th/cmm (150-400) H 04/25/17 04:33 MPV 8.4 fl 04/25/17 04:33 Neutrophils % 76.3 % (40.0-80.0) 04/25/17 04:33 Band Neutrophils % 3 % (0-10) 04/19/17 04:40 Lymphocytes % 15.1 % (20.0-50.0) L 04/25/17 04:33 Monocytes % 5.6 % (2.0-10.0) 04/25/17 04:33 Eosinophils % 1.6 % (0.0-5.0) 04/25/17 04:33 Basophils % 1.4 % (0.0-2.0) 04/25/17 04:33 Neutrophils (Manual) 79 % (40-80) 04/22/17 05:04 Lymphocytes 14 % (20-50) L 04/22/17 05:04 Monocytes 6 % (2-10) 04/22/17 05:04 Eosinophils 1 % (0-5) 04/19/17 04:40 Metamyelocytes 1 % (0-0) H 04/22/17 05:04 Platelet Estimate INCREASED PLATELETS (NORMAL) 04/22/17 05:04 Platelet Morphology NORMAL (NORMAL) 04/22/17 05:04 Anisocytosis 1+ 04/22/17 05:04 RBC Morph Micro Appear ABNORMAL (NORMAL) 04/22/17 05:04 ESR > 140 mm/hr (0-20) H 04/20/17 07:00 PT 11.9 SECONDS (9.5-11.5) H 04/24/17 21:19 INR 1.13 (0.5-1.4) 04/24/17 21:19 PTT (Actin FS) 27.6 SECONDS (26.0-38.0) 04/24/17 21:19 Specimen Source Arterial 04/25/17 10:00 Sample Site Left Radial 04/25/17 10:00 pH 7.48 (7.35-7.45) H 04/25/17 10:00 pCO2 32.0 mmHg (35.0-45.0) L 04/25/17 10:00 pO2 123.0 mmHg (80.0-100.0) H 04/25/17 10:00 HCO3 25.7 mEq/L (20.0-26.0) 04/25/17 10:00 Base Excess 0.9 mEq/L (-3.0-3.0) 04/25/17 10:00 O2 Saturation 99.0 % (92.0-100.0) 04/25/17 10:00 Chau Test Positive 04/25/17 10:00 Vent Rate NA 04/19/17 09:00 Inspired O2 28 04/25/17 10:00 Tidal Volume NA 04/19/17 09:00 PEEP NA 04/19/17 09:00 Pressure (ins/psv/peep) NA 04/19/17 09:00 Critical Value PING 04/25/17 10:00 Sodium 141 mEq/L (136-145) 04/25/17 04:33 Potassium 3.8 mEq/L (3.5-5.1) 04/25/17 04:33 Chloride 110 mEq/L (98-107) H 04/25/17 04:33 Carbon Dioxide 24.4 mEq/L (21.0-31.0) 04/25/17 04:33 Anion Gap 10.4 (7.0-16.0) 04/25/17 04:33 BUN 29 mg/dL (7-25) H 04/25/17 04:33 Creatinine 2.2 mg/dL (0.7-1.3) H 04/25/17 04:33 Est GFR ( Amer) 39.9 ml/min (>90) 04/25/17 04:33 Est GFR (Non-Af Amer) 33.0 ml/min 04/25/17 04:33 BUN/Creatinine Ratio 13.2 04/25/17 04:33 Glucose 174 mg/dL (70-105) H 04/25/17 04:33 POC Glucose 217 MG/DL (70 - 105) H 04/25/17 11:57 Hemoglobin A1c % 6.7 % (4.0-6.0) H 04/22/17 05:04 Whole Bld Lactic Acid 1.30 mmol/L (0.60-1.99) 04/24/17 21:19 Uric Acid 3.6 mg/dL (4.4-7.6) L 04/20/17 07:00 Calcium 8.7 mg/dL (8.6-10.3) 04/25/17 04:33 Phosphorus 3.9 mg/dL (2.5-5.0) 04/25/17 04:33 Magnesium 2.2 mg/dL (1.9-2.7) 04/25/17 04:33 Total Bilirubin 0.6 mg/dL (0.3-1.0) 04/25/17 04:33 AST 28 U/L (13-39) 04/25/17 04:33 ALT 24 U/L (7-52) 04/25/17 04:33 Alkaline Phosphatase 61 U/L (34-104) 04/25/17 04:33 Creatine Kinase 136 U/L (30-223) 04/14/17 14:55 Troponin I 0.01 ng/mL (0.01-0.05) 04/22/17 05:04 C-Reactive Protein 28.9 mg/dL (0.0-0.9) H 04/20/17 07:00 B-Natriuretic Peptide 85.5 pg/mL (5.0-100.0) 04/14/17 14:55 Total Protein 7.0 gm/dL (6.0-8.3) 04/25/17 04:33 Albumin 2.6 gm/dL (4.2-5.5) L 04/25/17 04:33 Globulin 4.4 gm/dL 04/25/17 04:33 Albumin/Globulin Ratio 0.6 (1.0-1.8) L 04/25/17 04:33 Prealbumin 9 mg/dL (10-36) L 04/24/17 05:30 Triglycerides 252 mg/dL (<150) H 04/24/17 05:30 Cholesterol 89 mg/dL (<200) 04/24/17 04:30 LDL Cholesterol Direct 38 mg/dL (75-193) L 04/14/17 14:55 HDL Cholesterol 13 mg/dL (23-92) L 04/14/17 14:55 Amylase 31 U/L (29-103) 04/14/17 14:55 Lipase 15 U/L (11-82) 04/14/17 14:55 Urine Source [place] 04/25/17 07:35 Urine Color YELLOW 04/25/17 07:35 Urine Clarity CLEAR (CLEAR) 04/25/17 07:35 Urine pH 5.5 04/25/17 07:35 Ur Specific [place] 1.015 (1.005-1.030) 04/25/17 07:35 Urine Protein TRACE mg/dL (NEGATIVE) 04/25/17 07:35 Urine Glucose (UA) NEGATIVE mg/dL (NEGATIVE) 04/25/17 07:35 Urine Ketones NEGATIVE mg/dL (NEGATIVE) 04/25/17 07:35 Urine Blood SMALL (NEGATIVE) H 04/25/17 07:35 Urine Nitrate NEGATIVE (NEGATIVE) 04/25/17 07:35 Urine Bilirubin NEGATIVE (NEGATIVE) 04/25/17 07:35 Urine Urobilinogen 0.2 E.U./dL (0.2 - 1.0) 04/25/17 07:35 Ur Leukocyte Esterase NEGATIVE (NEGATIVE) 04/25/17 07:35 Urine RBC 0-2 /hpf (0-5) H 04/25/17 07:35 Urine WBC 0-2 /hpf (0-5) 04/25/17 07:35 Ur Epithelial Cells OCCASIONAL /lpf (FEW) 04/25/17 07:35 Amorphous Sediment MANY URATES (NONE SEEN) 04/14/17 15:05 Urine Bacteria FEW /hpf (NONE SEEN) 04/25/17 07:35 Vancomycin Trough 13.5 ug/mL (10-20) 04/19/17 19:20 Blood Type O POSITIVE 04/14/17 20:36 Antibody Screen NEGATIVE 04/14/17 20:36 - Physical Exam Vitals and I&O: Vital Signs Temp 103 F 04/25/17 16:00 Pulse 146 04/25/17 16:00 Resp 34 04/25/17 16:00 BP 130/84 04/25/17 16:00 Pulse Ox 93 04/25/17 16:00 Intake & Output 04/24/17 04/25/17 04/25/17 18:59 06:59 18:59 Intake Total 1380 1580 960.667 Output Total 60 200 1055 Balance 1320 1380 -94.333 Weight (lbs) 90.718 kg 91.626 kg 91.626 kg Intake: Intake, IV Amount 200 400 960.667 D5-0.45NS 1,000 ml @ 40 560.667 mls/hr IV .Q24H ARIAN Rx#: [id number] Linezolid 600mg/300mL 600 300 300 mg In 300 ml @ 300 mls/ hr IV Q12HR ARIAN Rx#: [id number] Meropenem 1 gm In Sodium 100 100 Chloride 0.9% 100 ml @ 100 mls/hr IV Q12H ARIAN Rx #:[id number] Piperacillin Sodium/ 200 Tazobact 4.5 gm In Sodium Chloride 0.9% 100 ml @ 100 mls/hr IV Q6HR ARIAN Rx #:[id number] Oral 100 100 0 Tube Feeding 0 TPN/PPN 1080 1080 0 Blood Product 0 Lipid 0 Albumin 0 Other 0 Output: Gastric Drainage 0 Drainage 10 10 5 Left Lower Abdomen 5 Right Lower Abdomen 5 10 5 Urine 1050 Stool 0 Urine/Stool Mix 0 Emesis 0 Hemodialysis 0 Other 50 190 0 Other: # Voids 6 2 1 # Bowel Movements 0 Stool Characteristics Liquid Liquid Liquid Green Active Medications: Current Medications Acetaminophen (Tylenol) 650 mg PO Q6H PRN PRN Reason: FEVER/PAIN Stop: 06/21/17 17:45 Last Admin: 04/25/17 16:30 Dose: 650 mg Albuterol/Ipratropium (Duoneb Neb) 3 ml HHN Q4HRT [facility] Stop: 06/15/17 14:59 Last Admin: 04/25/17 15:19 Dose: Not Given Budesonide (Pulmicort) 0.5 mg HHN BIDRT [facility] Stop: 06/15/17 18:59 Last Admin: 04/25/17 07:20 Dose: 0.5 mg Famotidine (Pepcid) 20 mg IVP Q12H ARIAN Stop: 06/24/17 09:14 Last Admin: 04/25/17 09:15 Dose: 20 mg Multivitamins/Minerals 10 ml/Dextrose/ Amino Acids/Electrolytes/ Fat Emulsion Intravenous 2,400 mls @ 100 mls/hr IV .Q24H [facility] Stop: 06/23/17 15:59 Last Admin: 04/24/17 18:07 Dose: 100 mls/hr Dextrose/Sodium Chloride (D5-0.45ns) 1,000 mls @ 40 mls/hr IV .Q24H [facility] Stop: 06/23/17 15:59 Last Infusion: 04/25/17 10:23 Dose: 40 mls/hr Linezolid (Zyvox) 600 mg in 300 mls @ 300 mls/hr IV Q12HR [facility] Stop: 06/23/17 22:59 Last Infusion: 04/25/17 10:24 Dose: Infused Fluconazole (Diflucan) 200 mg in 100 mls @ 100 mls/hr IV Q24HR [facility] Stop: 06/23/17 22:59 Last Admin: 04/24/17 23:15 Dose: Not Given Meropenem 1 gm/ Sodium (Chloride) 100 mls @ 100 mls/hr IV Q12H [facility] Stop: 06/24/17 00:00 Last Infusion: 04/25/17 12:44 Dose: Infused Diltiazem HCl 125 mg/ Dextrose 125 mls @ 10 mls/hr IV TITR ARIAN; 10 MG/HR PRN Reason: Protocol Stop: 06/24/17 12:41 Last Admin: 04/25/17 14:24 Dose: 10 mg/hr, 10 mls/hr Insulin Aspart (Novolog Insulin Sliding Scale) 0 units SUBQ Q6HR ARIAN PRN Reason: Protocol Stop: 06/16/17 17:59 Last Admin: 04/25/17 11:59 Dose: 4 units Lorazepam (Ativan) 1 mg IVP Q4HR PRN; Protocol PRN Reason: AGITATION Stop: 06/17/17 13:27 Last Admin: 04/25/17 15:23 Dose: 1 mg Miscellaneous (Probiotic Screen) 1 ea PRN PRN PRN Reason: PROTOCOL Stop: 06/14/17 09:39 Miscellaneous (Clinical Monitoring) 1 ea MC DAILY PRN PRN Reason: RENAL Stop: 06/15/17 12:48 Miscellaneous (Tpn Per Pharmacy) 1 ea PRN PRN PRN Reason: PROTOCOL Stop: 06/16/17 12:28 Morphine Sulfate (Morphine) 4 mg IVP Q2HR PRN PRN Reason: Pain (Moderate) Stop: 06/15/17 10:53 Last Admin: 04/25/17 09:51 Dose: 4 mg Ondansetron HCl (Zofran) 4 mg IVP Q6H PRN PRN Reason: Nausea / Vomiting Stop: 06/13/17 20:08 General: Mild distress, Other (confused) HEENT: Atraumatic, PERRLA, EOMI, Mucous membr. moist/pink Neck: Supple, +2 carotid pulse wo bruit Cardiovascular: Regular rate, Normal S1, Normal S2 Lungs: Other (diffuse rhonchi.) Abdomen: Soft, Distended, Other ( wound VAC anterior abdominal wall wound. L colostomy+) Extremities: Other (no edema and cyanosis.) Neurological: Other (patient is more confused) Psych/Mental Status: Other (gets agitated at times.) - Procedures Procedures: Procedures Procedure Code Date BYPASS SIGMOID COLON TO CUTANEOUS, OPEN APPROACH [id number] 04/14/17 PARTIAL REMOVAL OF COLON 00747 04/14/17 RESECTION OF SIGMOID COLON, OPEN APPROACH [id number] 04/14/17 RESPIRATORY VENTILATION, 24-96 CONSECUTIVE HOURS [id number] 04/14/17 VENT MGMT INPAT INIT DAY 12643 04/14/17 Assessment/Plan - Problem List Patient Problems: All Active Problems Abscess of sigmoid colon due to diverticulitis (Acute) K57.20 Diverticulitis of sigmoid colon (Acute) K57.32 Obesity (Acute) E66.9 Perforation of sigmoid colon due to diverticulitis (Acute) K57.20 Peritonitis (acute) generalized (Acute) K65.0 - Assessment Assessment: Current Active Problems Problem Status Onset Abscess of sigmoid colon due to diverticulitis Acute Diverticulitis of sigmoid colon Acute Obesity Acute Perforation of sigmoid colon due to diverticulitis Acute Peritonitis (acute) generalized Acute Perforated sigmoid diverticulitis status post exploratory laparotomy and sigmoid colectomy intra-abdominal abscess drainage lysis of adhesion and Ada procedure and colostomy. Postoperative respiratory failure. Obesity. Polymicrobial peritonitis. Asthma. New onset of fever. Electrolyte imbalance. SEKOU improving. Encephalopathy due to metabolic and infectious etio. Open surgical wound . Altered mental status secondary to metabolic and infectious encephalopathy. Postop anemia. - Plan Plan: Wound Vac as per surgery. IVF. Blood cultures again. Correct electrolytes. IV antibiotics as per ID. Cardiology consult. Insert Barry catheter. Monitor strict I's and O's. Continue oxygen, HHN and when necessary BiPAP. Pulmonary follow-up. GI and DVT prophylaxis. Follow-up lab. Colostomy care. Post op follow up as per surgery. Guarded prognosis. Follow up on consultants recommendations. Symptoms management. Medication management. Overall prognosis is guarded. Care plan discussed with RN. Nutritional Asmnt/Malnutr-PDOC - Dietary Evaluation Malnutrition Findings (Please click <Entered> for more info): Nutritional Asmnt/Malnutrition Start: 04/19/17 14: 21 Text: Status: Complete Freq: Document 04/19/17 14:21 GSUN (Rec: 04/19/17 14:58 [id number]) Nutritional Asmnt/Malnutrition Patient General Information Nutritional Screening Moderate Risk Screening Diagnosis Sepsis, diverticulitis, peritonitis Pertinent Medical Hx/Surgical Hx Asthma, diverticulosis Subjective Information 56 year old male frome home. Pt was restless, moving extremities during visit. 04/14 : sigmoid colectomy, end colostomy, abscess drainage, diffuse peritontis. 04/16: pt started PPN. 04/17: central line and started on TPN. Spoke to family at bedside, explained parenteral nutrition , family undersoto and has no further question at this time. Weight discrepancies noted in EMR, family does not know UBW , estimated nutritional needs based Current Diet Order/ Nutrition Support TPN D10% AA4.25% at 90ml/hr with IL20% 150ml, providing 1401.6kcal Pertinent Medications Dilaudid, Novolog, Culturelle, Magnesium Sulfate, Vancomycin , TPN, Morphine, Multivitamins , Zofran, Protonix, Nacl0.9% Pertinent Labs 04/14: triglycerides 106, total bilirubin 1.1H, glucose 116H 04/17: magnesium 2.5, phsophorus 3.2 04/19: magnesium 1.8L, phosphorus 2.4L, BUN 28H, creatinine 1.3, glucose 154H, total bilirubin 1.1H, triglycerides 238H Nutritional Hx/Data Height 1.7 m Height (Calculated Centimeters) 170.2 Current Weight (lbs) 95.254 kg Weight (Calculated Kilograms) 95.3 Weight (Calculated Grams) 10737.4 [place] Body Weight 148 Weight Status Overweight GI Symptoms Skin Integrity/Comment: [place] 14. Facial non-pitting 1+, bilateral hands pitting 1+ Estimated Nutritional Goals Calories/Kcals/Kg IBW 148/67.3kg Kcals Calculated 2019-2356kcal (30-35kcal/kg) Protein Calculated 101-135g (1.5-2g/kg) Fluid: ml Per MD Nutritional Problem 1. Problem Problem Altered GI function related to Etiology abscess and perforation of sigmoid colon due to diverticulitis aeb Signs/Symptoms: post-operative, on TPN Intervention/Recommendation Comments 1. Recommend TPN D15% AA5.5% at 100ml/hr with IL20% 150ml, providing 2400ml total volume, 2052kcal, 132g protein, meeting 100% of estimated nutritional needs. Carb load 2 .6mg/kg/min (using 210lb adm weight). 2. Monitor for possible refeeding syndrome, 04/18: phsophorus 2.1L, 04/19: magnesium 1.9. 3. Monitor triglycerides, total bilirubin, glucose, renal labs. Expected Outcomes/Goals Expected Outcomes/Goals 1. Pt to meet 100% of estimated nutritional needs on TPN.
[2017-04-25] MEDS: TPN 10%-70% CUSTOM IV SCH (18:23)
--- NOTE | 2017-04-25 18:45 | Infectious Disease Prog Note ---
Infectious Disease Subjective - Review of Systems Service Date: 04/25/17 Subjective: Still febrile. Infectious Disease Objective - Results Result Diagrams: 04/26/17 07:00 04/26/17 07:00 Recent Labs: Laboratory Last Values WBC 10.7 Th/cmm (4.8-10.8) 04/25/17 04:33 RBC 3.37 Mil/cmm (4.30-5.70) L 04/25/17 04:33 Hgb 8.7 gm/dL (13.2-17.3) L 04/25/17 04:33 Hct 26.9 % (39.0-49.0) L 04/25/17 04:33 MCV 79.7 fl (80-99) L 04/25/17 04:33 MCH 25.9 pg (26.0-30.0) L 04/25/17 04:33 MCHC Differential 32.4 pg (28.0-36.0) 04/25/17 04:33 RDW 15.5 % (11.5-20.0) 04/25/17 04:33 Plt Count 632 Th/cmm (150-400) H 04/25/17 04:33 MPV 8.4 fl 04/25/17 04:33 Neutrophils % 76.3 % (40.0-80.0) 04/25/17 04:33 Band Neutrophils % 3 % (0-10) 04/19/17 04:40 Lymphocytes % 15.1 % (20.0-50.0) L 04/25/17 04:33 Monocytes % 5.6 % (2.0-10.0) 04/25/17 04:33 Eosinophils % 1.6 % (0.0-5.0) 04/25/17 04:33 Basophils % 1.4 % (0.0-2.0) 04/25/17 04:33 Neutrophils (Manual) 79 % (40-80) 04/22/17 05:04 Lymphocytes 14 % (20-50) L 04/22/17 05:04 Monocytes 6 % (2-10) 04/22/17 05:04 Eosinophils 1 % (0-5) 04/19/17 04:40 Metamyelocytes 1 % (0-0) H 04/22/17 05:04 Platelet Estimate INCREASED PLATELETS (NORMAL) 04/22/17 05:04 Platelet Morphology NORMAL (NORMAL) 04/22/17 05:04 Anisocytosis 1+ 04/22/17 05:04 RBC Morph Micro Appear ABNORMAL (NORMAL) 04/22/17 05:04 ESR > 140 mm/hr (0-20) H 04/20/17 07:00 PT 11.9 SECONDS (9.5-11.5) H 04/24/17 21:19 INR 1.13 (0.5-1.4) 04/24/17 21:19 PTT (Actin FS) 27.6 SECONDS (26.0-38.0) 04/24/17 21:19 Specimen Source Arterial 04/25/17 10:00 Sample Site Left Radial 04/25/17 10:00 pH 7.48 (7.35-7.45) H 04/25/17 10:00 pCO2 32.0 mmHg (35.0-45.0) L 04/25/17 10:00 pO2 123.0 mmHg (80.0-100.0) H 04/25/17 10:00 HCO3 25.7 mEq/L (20.0-26.0) 04/25/17 10:00 Base Excess 0.9 mEq/L (-3.0-3.0) 04/25/17 10:00 O2 Saturation 99.0 % (92.0-100.0) 04/25/17 10:00 Chau Test Positive 04/25/17 10:00 Vent Rate NA 04/19/17 09:00 Inspired O2 28 04/25/17 10:00 Tidal Volume NA 04/19/17 09:00 PEEP NA 04/19/17 09:00 Pressure (ins/psv/peep) NA 04/19/17 09:00 Critical Value PING 04/25/17 10:00 Sodium 141 mEq/L (136-145) 04/25/17 04:33 Potassium 3.8 mEq/L (3.5-5.1) 04/25/17 04:33 Chloride 110 mEq/L (98-107) H 04/25/17 04:33 Carbon Dioxide 24.4 mEq/L (21.0-31.0) 04/25/17 04:33 Anion Gap 10.4 (7.0-16.0) 04/25/17 04:33 BUN 29 mg/dL (7-25) H 04/25/17 04:33 Creatinine 2.2 mg/dL (0.7-1.3) H 04/25/17 04:33 Est GFR ( Amer) 39.9 ml/min (>90) 04/25/17 04:33 Est GFR (Non-Af Amer) 33.0 ml/min 04/25/17 04:33 BUN/Creatinine Ratio 13.2 04/25/17 04:33 Glucose 174 mg/dL (70-105) H 04/25/17 04:33 POC Glucose 217 MG/DL (70 - 105) H 04/25/17 11:57 Hemoglobin A1c % 6.7 % (4.0-6.0) H 04/22/17 05:04 Whole Bld Lactic Acid 1.30 mmol/L (0.60-1.99) 04/24/17 21:19 Uric Acid 3.6 mg/dL (4.4-7.6) L 04/20/17 07:00 Calcium 8.7 mg/dL (8.6-10.3) 04/25/17 04:33 Phosphorus 3.9 mg/dL (2.5-5.0) 04/25/17 04:33 Magnesium 2.2 mg/dL (1.9-2.7) 04/25/17 04:33 Total Bilirubin 0.6 mg/dL (0.3-1.0) 04/25/17 04:33 AST 28 U/L (13-39) 04/25/17 04:33 ALT 24 U/L (7-52) 04/25/17 04:33 Alkaline Phosphatase 61 U/L (34-104) 04/25/17 04:33 Creatine Kinase 136 U/L (30-223) 04/14/17 14:55 Troponin I 0.01 ng/mL (0.01-0.05) 04/22/17 05:04 C-Reactive Protein 28.9 mg/dL (0.0-0.9) H 04/20/17 07:00 B-Natriuretic Peptide 85.5 pg/mL (5.0-100.0) 04/14/17 14:55 Total Protein 7.0 gm/dL (6.0-8.3) 04/25/17 04:33 Albumin 2.6 gm/dL (4.2-5.5) L 04/25/17 04:33 Globulin 4.4 gm/dL 04/25/17 04:33 Albumin/Globulin Ratio 0.6 (1.0-1.8) L 04/25/17 04:33 Prealbumin 9 mg/dL (10-36) L 04/24/17 05:30 Triglycerides 252 mg/dL (<150) H 04/24/17 05:30 Cholesterol 89 mg/dL (<200) 04/24/17 04:30 LDL Cholesterol Direct 38 mg/dL (75-193) L 04/14/17 14:55 HDL Cholesterol 13 mg/dL (23-92) L 04/14/17 14:55 Amylase 31 U/L (29-103) 04/14/17 14:55 Lipase 15 U/L (11-82) 04/14/17 14:55 Urine Source [place] 04/25/17 07:35 Urine Color YELLOW 04/25/17 07:35 Urine Clarity CLEAR (CLEAR) 04/25/17 07:35 Urine pH 5.5 04/25/17 07:35 Ur Specific [place] 1.015 (1.005-1.030) 04/25/17 07:35 Urine Protein TRACE mg/dL (NEGATIVE) 04/25/17 07:35 Urine Glucose (UA) NEGATIVE mg/dL (NEGATIVE) 04/25/17 07:35 Urine Ketones NEGATIVE mg/dL (NEGATIVE) 04/25/17 07:35 Urine Blood SMALL (NEGATIVE) H 04/25/17 07:35 Urine Nitrate NEGATIVE (NEGATIVE) 04/25/17 07:35 Urine Bilirubin NEGATIVE (NEGATIVE) 04/25/17 07:35 Urine Urobilinogen 0.2 E.U./dL (0.2 - 1.0) 04/25/17 07:35 Ur Leukocyte Esterase NEGATIVE (NEGATIVE) 04/25/17 07:35 Urine RBC 0-2 /hpf (0-5) H 04/25/17 07:35 Urine WBC 0-2 /hpf (0-5) 04/25/17 07:35 Ur Epithelial Cells OCCASIONAL /lpf (FEW) 04/25/17 07:35 Amorphous Sediment MANY URATES (NONE SEEN) 04/14/17 15:05 Urine Bacteria FEW /hpf (NONE SEEN) 04/25/17 07:35 Vancomycin Trough 13.5 ug/mL (-20) 04/19/17 19:20 Blood Type O POSITIVE 04/14/17 20:36 Antibody Screen NEGATIVE 04/14/17 20:36 - Physical Exam Vitals and I&O: Vital Signs Temp 100.4 F 04/25/17 18:00 Pulse 135 04/25/17 18:00 Resp 37 04/25/17 18:00 BP 132/84 04/25/17 18:00 Pulse Ox 99 04/25/17 18:00 Intake & Output 04/24/17 04/25/17 04/25/17 18:59 06:59 18:59 Intake Total 1380 1580 4460.667 Output Total 60 200 1510 Balance 1320 1380 2950.667 Weight (lbs) 90.718 kg 91.626 kg 93.894 kg Intake: Intake, IV Amount 243 259 2276.667 D5-0.45NS 1,000 ml @ 40 560.667 mls/hr IV .Q24H ARIAN Rx#: [id number] Linezolid 600mg/300mL 600 300 300 mg In 300 ml @ 300 mls/ hr IV Q12HR ARIAN Rx#: [id number] Meropenem 1 gm In Sodium 100 100 Chloride 0.9% 100 ml @ 100 mls/hr IV Q12H ARIAN Rx #:[id number] Multivitamin Inj 10 ml In 2400 Dextrose 70% 1,740 ml In Amino Acids 10% 500 ml In Intralipids 20% 150 ml @ 100 mls/hr IV .Q24H ARIAN Rx#:[id number] Piperacillin Sodium/ 200 Tazobact 4.5 gm In Sodium Chloride 0.9% 100 ml @ 100 mls/hr IV Q6HR ARIAN Rx #:[id number] Oral 100 100 20 Tube Feeding 0 TPN/PPN 1080 1080 1080 Blood Product 0 Lipid 0 Albumin 0 Other 0 Output: Gastric Drainage 0 Drainage 10 10 5 Left Lower Abdomen 5 Right Lower Abdomen 5 10 5 Urine 1450 Stool 5 Urine/Stool Mix 0 Emesis 0 Hemodialysis 0 Other 50 190 50 Other: # Voids 6 2 1 # Bowel Movements 1 Stool Characteristics Liquid Liquid Liquid Green Active Medications: Current Medications Acetaminophen (Tylenol) 650 mg PO Q6H PRN PRN Reason: FEVER/PAIN Stop: 06/21/17 17:45 Last Admin: 04/25/17 16:30 Dose: 650 mg Albuterol/Ipratropium (Duoneb Neb) 3 ml HHN Q4HRT [facility] Stop: 06/15/17 14:59 Last Admin: 04/25/17 15:19 Dose: Not Given Budesonide (Pulmicort) 0.5 mg HHN BIDRT [facility]AN Stop: 06/15/17 18:59 Last Admin: 04/25/17 07:20 Dose: 0.5 mg Famotidine (Pepcid) 20 mg IVP Q12H [facility] Stop: 06/24/17 09:14 Last Admin: 04/25/17 09:15 Dose: 20 mg Multivitamins/Minerals 10 ml/Dextrose/ Amino Acids/Electrolytes/ Fat Emulsion Intravenous 2,400 mls @ 100 mls/hr IV .Q24H [facility] Stop: 06/23/17 15:59 Last Admin: 04/25/17 18:23 Dose: 90 mls/hr Dextrose/Sodium Chloride (D5-0.45ns) 1,000 mls @ 40 mls/hr IV .Q24H [facility] Stop: 06/23/17 15:59 Last Infusion: 04/25/17 10:23 Dose: 40 mls/hr Linezolid (Zyvox) 600 mg in 300 mls @ 300 mls/hr IV Q12HR [facility] Stop: 06/23/17 22:59 Last Infusion: 04/25/17 10:24 Dose: Infused Fluconazole (Diflucan) 200 mg in 100 mls @ 100 mls/hr IV Q24HR [facility] Stop: 06/23/17 22:59 Last Admin: 04/24/17 23:15 Dose: Not Given Meropenem 1 gm/ Sodium (Chloride) 100 mls @ 100 mls/hr IV Q12H [facility] Stop: 06/24/17 00:00 Last Infusion: 04/25/17 12:44 Dose: Infused Diltiazem HCl 125 mg/ Dextrose 125 mls @ 10 mls/hr IV TITR ARIAN; 10 MG/HR PRN Reason: Protocol Stop: 06/24/17 12:41 Last Admin: 04/25/17 14:24 Dose: 10 mg/hr, 10 mls/hr Insulin Aspart (Novolog Insulin Sliding Scale) 0 units SUBQ Q6HR [facility]AN PRN Reason: Protocol Stop: 06/16/17 17:59 Last Admin: 04/25/17 11:59 Dose: 4 units Lorazepam (Ativan) 1 mg IVP Q4HR PRN; Protocol PRN Reason: AGITATION Stop: 06/17/17 13:27 Last Admin: 04/25/17 15:23 Dose: 1 mg Miscellaneous (Probiotic Screen) 1 ea PRN PRN PRN Reason: PROTOCOL Stop: 06/14/17 09:39 Miscellaneous (Clinical Monitoring) 1 ea DAILY PRN PRN Reason: RENAL Stop: 06/15/17 12:48 Miscellaneous (Tpn Per Pharmacy) 1 ea PRN PRN PRN Reason: PROTOCOL Stop: 06/16/17 12:28 Morphine Sulfate (Morphine) 4 mg IVP Q2HR PRN PRN Reason: Pain (Moderate) Stop: 06/15/17 10:53 Last Admin: 04/25/17 09:51 Dose: 4 mg Ondansetron HCl (Zofran) 4 mg IVP Q6H PRN PRN Reason: Nausea / Vomiting Stop: 06/13/17 20:08 General: no acute distress, well developed, well nourished HEENT: atraumatic, normocephalic Neck: supple, thyromegaly Cardiovascular: S1S2, regular Lungs: clear to auscultation bilaterally, clear to percussion Abdomen: soft, drain (x1), other (open wound with wound vac.), no tender, no distended Extremities: no cyanosis, no clubbing, no edema Neurological: awake, alert - Procedures Procedures: Procedures Procedure Code Date BYPASS SIGMOID COLON TO CUTANEOUS, OPEN APPROACH [id number] 04/14/17 PARTIAL REMOVAL OF COLON 59533 04/14/17 RESECTION OF SIGMOID COLON, OPEN APPROACH [id number] 04/14/17 RESPIRATORY VENTILATION, 24-96 CONSECUTIVE HOURS [id number] 04/14/17 VENT MGMT INPAT INIT DAY 52643 04/14/17 Infectious Disease Assmt/Plan - Problem List Patient Problems: All Active Problems Abscess of sigmoid colon due to diverticulitis (Acute) K57.20 Diverticulitis of sigmoid colon (Acute) K57.32 Obesity (Acute) E66.9 Perforation of sigmoid colon due to diverticulitis (Acute) K57.20 Peritonitis (acute) generalized (Acute) K65.0 - Assessment Assessment: 1. Sepsis. febril,but leukocytosis persists. 2. Diverticulitis, sigmoid diverticula to with support complicated by multiple abscesses and peritonitis. 3. Post operatively, on ventilator. 4. Peritonitis. Likely polymicrobial. 5. History of asthma. 6. History of arthritis. 7. Distended abdomen likely post operative ileus. Rule out small bowel obstruction. 8. SEKOU. 9. Post op, paralytic ileus. improved. 10. Wrist cellulitis, worse on left with destruction of bones. X ray of the left wrist suggested osteomyelitis. Plan: Change antibiotics to Zyvox iv, mermen and diflucan. Sepsis workup was performed and follow the sepsis workup. Nutritional Asmnt/Malnutr-PDOC - Dietary Evaluation Malnutrition Findings (Please click <Entered> for more info): Nutritional Asmnt/Malnutrition Start: 04/19/17 14: 21 Text: Status: Complete Freq: Document 04/19/17 14:21 GSUN (Rec: 04/19/17 14:58 [id number]) Nutritional Asmnt/Malnutrition Patient General Information Nutritional Screening Moderate Risk Screening Diagnosis Sepsis, diverticulitis, peritonitis Pertinent Medical Hx/Surgical Hx Asthma, diverticulosis Subjective Information 56 year old male frome home. Pt was restless, moving extremities during visit. 04/14 : sigmoid colectomy, end colostomy, abscess drainage, diffuse peritontis. 04/16: pt started PPN. 04/17: central line and started on TPN. Spoke to family at bedside, explained parenteral nutrition , family undersoto and has no further question at this time. Weight discrepancies noted in EMR, family does not know UBW , estimated nutritional needs based Current Diet Order/ Nutrition Support TPN D10% AA4.25% at 90ml/hr with IL20% 150ml, providing 1401.6kcal Pertinent Medications Dilaudid, Novolog, Culturelle, Magnesium Sulfate, Vancomycin , TPN, Morphine, Multivitamins , Zofran, Protonix, Nacl0.9% Pertinent Labs 04/14: triglycerides 106, total bilirubin 1.1H, glucose 116H 04/17: magnesium 2.5, phsophorus 3.2 04/19: magnesium 1.8L, phosphorus 2.4L, BUN 28H, creatinine 1.3, glucose 154H, total bilirubin 1.1H, triglycerides 238H Nutritional Hx/Data Height 1.7 m Height (Calculated Centimeters) 170.2 Current Weight (lbs) 95.254 kg Weight (Calculated Kilograms) 95.3 Weight (Calculated Grams) 69841.4 [place] Body Weight 148 Weight Status Overweight GI Symptoms Skin Integrity/Comment: [place] 14. Facial non-pitting 1+, bilateral hands pitting 1+ Estimated Nutritional Goals Calories/Kcals/Kg IBW 148/67.3kg Kcals Calculated 2018-2356kcal (30-35kcal/kg) Protein Calculated 101-135g (1.5-2g/kg) Fluid: ml Per MD Nutritional Problem 1. Problem Problem Altered GI function related to Etiology abscess and perforation of sigmoid colon due to diverticulitis aeb Signs/Symptoms: post-operative, on TPN Intervention/Recommendation Comments 1. Recommend TPN D15% AA5.5% at 100ml/hr with IL20% 150ml, providing 2400ml total volume, 2052kcal, 132g protein, meeting 100% of estimated nutritional needs. Carb load 2 .6mg/kg/min (using 210lb adm weight). 2. Monitor for possible refeeding syndrome, 04/18: phsophorus 2.1L, 04/19: magnesium 1.9. 3. Monitor triglycerides, total bilirubin, glucose, renal labs. Expected Outcomes/Goals Expected Outcomes/Goals 1. Pt to meet 100% of estimated nutritional needs on TPN.
--- NOTE | 2017-04-25 19:27 | Progress Notes ---
DATE: 04/25/2017 PROBLEM LIST: 1.Status post acute respiratory failure. 2.Encephalopathy, ____ fever and sepsis. 3.Suspect obstructive sleep apnea syndrome. SYMPTOMS: Nil. The patient is encephalopathic, look from side to side, no respiratory distress. PHYSICAL EXAMINATION: VITAL SIGNS: The patient's temperature this afternoon ____ Fahrenheit, heart is 130-140, blood pressure 130/84, respirations in mid 20s to low 30s, saturation 93 on a nasal O2. NECK: Veins not visualized. CHEST: Shows diminished air entry with occasional rhonchi. HEART: Regular and tachycardic. ABDOMEN: Soft, nontender. LABORATORY DATA: ABG, pO2 is 123 on 2 liters of oxygen. Electrolytes, creatinine is 2.2 and BUN is 29. ASSESSMENT: The patient, respiratory botello not much change, tachypneic, encephalopathic make symptoms. Clinical finding was respiratory botello to persistently tachycardic is secondary to sepsis ____ and continues to have fever. PLANS AND SUGGESTIONS: We will continue current treatment. Care and plan discussed with the nursing staff as well as patient's family at the bedside. JOB# [id number]
[2017-04-25] MEDS: D5-0.45NS 1,000 ML IV SCH (21:32)
--- NOTE | 2017-04-25 21:36 | Consultation ---
DATE OF CONSULTATION: 04/25/2017 PATIENT OF: Dr. Kahn. HISTORY AND PHYSICAL: This is a 56-year-old male patient who was brought to the Emergency Room with abdominal pain. The patient was found to have ruptured diverticulitis with intraabdominal abscess, peritonitis. The patient had surgery for the same with sigmoid resection and end-to-end anastomosis. At this time, the patient is on ventilator. The patient developed supraventricular tachycardia and hence Cardiology consult was requested. PAST MEDICAL HISTORY: Ruptured diverticulitis, septic shock, hypotension, acute respiratory failure, on ventilator, supraventricular tachycardia, acute diverticulitis, intraabdominal abscess, peritonitis, asthma, left wrist osteomyelitis, diabetes mellitus type 2, obesity. PLAN: At the present time, we will get a Cardizem drip to control the heart rate. Continue vent management and IV antibiotics. JOB# [id number]
[2017-04-25] MEDS: Fluconazole 200mg/100mL 200 MG/100 ML BAG IV SCH (22:42)
[2017-04-26] MEDS: Morphine Sulfate 4 mg/mL 1mL Syr IVP PRN ×6 (00:10→23:27)
[2017-04-26] MEDS: Meropenem 1 GM in Sodium Chloride 0.9% 100 ML IV SCH ×2 (00:10→11:07)
[2017-04-26] MEDS: INSULIN ASPART SLIDING SCALE 100 UNITS/ML UNIT SUBQ SCH ×4 (00:25→18:03)
[2017-04-26] MEDS: Albuterol/Ipratropium Neb 3 ML AERS HHN SCH ×5 (06:59→23:12)
[2017-04-26] MEDS: Budesonide 0.5 Mg/2 mL Ud HHN SCH ×2 (06:59→18:56)
[2017-04-26 08:12] LABS: % BASOPHILS 1.5 % (0.0-2.0); % LYMPHOCYTES 10.8 % (20.0-50.0); % MONOCYTES 6.7 % (2.0-10.0); HEMATOCRIT 24.8 % (39.0-49.0); HEMOGLOBIN 8.3 gm/dL (13.2-17.3); MEAN CELL VOLUME 78.2 fl (80-99); MEAN CORPUSCULAR HEMOGLOBIN 26.1 pg (26.0-30.0); MEAN CORPUSCULAR HGB CONC 33.4 pg (28.0-36.0); MEAN PLATELET VOLUME 9.1 fl; NEUTROPHILE ABSOLUTE 9.6 Th/cmm (1.8-8.0); PLATELET COUNT 585 Th/cmm (150-400); RED BLOOD COUNT 3.17 Mil/cmm (4.30-5.70); RED CELL DISTRIBUTION WIDTH 15.1 % (11.5-20.0)
[2017-04-26] MEDS: Linezolid 600mg/300mL 600 MG/300 ML BAG IV SCH ×2 (08:28→21:15)
[2017-04-26 08:31] LABS: WHITE BLOOD COUNT 12.1 Th/cmm (4.8-10.8)
[2017-04-26 08:52] LABS: ALB/GLOB RATIO 0.5 (1.0-1.8); ANION GAP 10.1 (7.0-16.0); BILIRUBIN,TOTAL 0.5 mg/dL (0.3-1.0); BUN/CREATININE RATIO 13.8; CALCIUM SERUM 8.4 mg/dL (8.6-10.3); CARBON DIOXIDE 22.9 mEq/L (21.0-31.0); CREATININE - SERUM 2.1 mg/dL (0.7-1.3); MAGNESIUM 2.1 mg/dL (1.9-2.7); PHOSPHOROUS 2.8 mg/dL (2.5-5.0)
--- NOTE | 2017-04-26 08:54 | Diagnostic Imaging Report ---
CT scan abdomen and pelvis without intravenous contrast HISTORY: Pain Total DLP equals 760 CTDI equals 15.6 Axial sections were obtained from the xiphoid process down to the pubic symphysis. Exam is somewhat limited due to patient motion and absence of oral/bowel contrast. The liver exhibits a homogeneous parenchyma. No focal lesions. Spleen appears normal. There is a moderately distended air and fluid-filled stomach. No focal amenities seen within the pancreas. No significant focal renal lesions. No hydronephrosis. Defects noted in the mid and left anterior abdominal wall regions and system with surgical change. Ostomy noted over the left anterior abdomen. A surgical drain traverses the mid pelvis. Evidence of mild adjacent fluid. However, no discrete abnormal loculated fluid collections are seen. No definite abscess formation visualized. A Thorne catheter is seen within a contracted urinary bladder. Severe degenerative changes noted throughout the spine. IMPRESSION: 1. Findings consistent with surgical changes along with a drain that traverses the mid pelvis along with haziness of the pericolonic fat along the lower descending and sigmoid colon regions. Evidence of mild fluid within the mid pelvis. However, no discrete abnormal loculated fluid collections or discrete abscess formation identified.
--- NOTE | 2017-04-26 09:04 | General Progress Note ---
Subjective - Review of Systems Subjective: Patient is seen and examined. Patient is MICU bed and 10. Patient is restless. He requires when necessary Ativan. Stay CT scan of the abdomen and pelvis report not available. The patient is tolerating by mouth meds well. Wound VAC is showing significant amount of collection of fluids. Objective - Results Result Diagrams: 04/26/17 07:00 04/26/17 07:00 Recent Labs: Laboratory Last Values WBC 12.1 Th/cmm (4.8-10.8) H 04/26/17 07:00 RBC 3.17 Mil/cmm (4.30-5.70) L 04/26/17 07:00 Hgb 8.3 gm/dL (13.2-17.3) L 04/26/17 07:00 Hct 24.8 % (39.0-49.0) L 04/26/17 07:00 MCV 78.2 fl (80-99) L 04/26/17 07:00 MCH 26.1 pg (26.0-30.0) 04/26/17 07:00 MCHC Differential 33.4 pg (28.0-36.0) 04/26/17 07:00 RDW 15.1 % (11.5-20.0) 04/26/17 07:00 Plt Count 585 Th/cmm (150-400) H 04/26/17 07:00 MPV 9.1 fl 04/26/17 07:00 Neutrophils % 79.0 % (40.0-80.0) 04/26/17 07:00 Band Neutrophils % 3 % (0-10) 04/19/17 04:40 Lymphocytes % 10.8 % (20.0-50.0) L 04/26/17 07:00 Monocytes % 6.7 % (2.0-10.0) 04/26/17 07:00 Eosinophils % 2.0 % (0.0-5.0) 04/26/17 07:00 Basophils % 1.5 % (0.0-2.0) 04/26/17 07:00 Neutrophils (Manual) 79 % (40-80) 04/22/17 05:04 Lymphocytes 14 % (20-50) L 04/22/17 05:04 Monocytes 6 % (2-10) 04/22/17 05:04 Eosinophils 1 % (0-5) 04/19/17 04:40 Metamyelocytes 1 % (0-0) H 04/22/17 05:04 Platelet Estimate INCREASED PLATELETS (NORMAL) 04/22/17 05:04 Platelet Morphology NORMAL (NORMAL) 04/22/17 05:04 Anisocytosis 1+ 04/22/17 05:04 RBC Morph Micro Appear ABNORMAL (NORMAL) 04/22/17 05:04 ESR > 140 mm/hr (0-20) H 04/20/17 07:00 PT 11.9 SECONDS (9.5-11.5) H 04/24/17 21:19 INR 1.13 (0.5-1.4) 04/24/17 21:19 PTT (Actin FS) 27.6 SECONDS (26.0-38.0) 04/24/17 21:19 Specimen Source Arterial 04/25/17 10:00 Sample Site Left Radial 04/25/17 10:00 pH 7.48 (7.35-7.45) H 04/25/17 10:00 pCO2 32.0 mmHg (35.0-45.0) L 04/25/17 10:00 pO2 123.0 mmHg (80.0-100.0) H 04/25/17 10:00 HCO3 25.7 mEq/L (20.0-26.0) 04/25/17 10:00 Base Excess 0.9 mEq/L (-3.0-3.0) 04/25/17 10:00 O2 Saturation 99.0 % (92.0-100.0) 04/25/17 10:00 Chau Test Positive 04/25/17 10:00 Vent Rate NA 04/19/17 09:00 Inspired O2 28 04/25/17 10:00 Tidal Volume NA 04/19/17 09:00 PEEP NA 04/19/17 09:00 Pressure (ins/psv/peep) NA 04/19/17 09:00 Critical Value PING 04/25/17 10:00 Sodium 137 mEq/L (136-145) 04/26/17 07:00 Potassium 4.0 mEq/L (3.5-5.1) 04/26/17 07:00 Chloride 108 mEq/L (98-107) H 04/26/17 07:00 Carbon Dioxide 22.9 mEq/L (21.0-31.0) 04/26/17 07:00 Anion Gap 10.1 (7.0-16.0) 04/26/17 07:00 BUN 29 mg/dL (7-25) H 04/26/17 07:00 Creatinine 2.1 mg/dL (0.7-1.3) H 04/26/17 07:00 Est GFR ( Amer) 42.1 ml/min (>90) 04/26/17 07:00 Est GFR (Non-Af Amer) 34.8 ml/min 04/26/17 07:00 BUN/Creatinine Ratio 13.8 04/26/17 07:00 Glucose 234 mg/dL (70-105) H 04/26/17 07:00 POC Glucose 262 MG/DL (70 - 105) H 04/26/17 00:21 Hemoglobin A1c % 6.7 % (4.0-6.0) H 04/22/17 05:04 Whole Bld Lactic Acid 1.30 mmol/L (0.60-1.99) 04/24/17 21:19 Uric Acid 3.6 mg/dL (4.4-7.6) L 04/20/17 07:00 Calcium 8.4 mg/dL (8.6-10.3) L 04/26/17 07:00 Phosphorus 2.8 mg/dL (2.5-5.0) 04/26/17 07:00 Magnesium 2.1 mg/dL (1.9-2.7) 04/26/17 07:00 Total Bilirubin 0.5 mg/dL (0.3-1.0) 04/26/17 07:00 AST 24 U/L (13-39) 04/26/17 07:00 ALT 19 U/L (7-52) 04/26/17 07:00 Alkaline Phosphatase 59 U/L (34-104) 04/26/17 07:00 Creatine Kinase 136 U/L (30-223) 04/14/17 14:55 Troponin I 0.01 ng/mL (0.01-0.05) 04/22/17 05:04 C-Reactive Protein 28.9 mg/dL (0.0-0.9) H 04/20/17 07:00 B-Natriuretic Peptide 85.5 pg/mL (5.0-100.0) 04/14/17 14:55 Total Protein 6.9 gm/dL (6.0-8.3) 04/26/17 07:00 Albumin 2.4 gm/dL (4.2-5.5) L 04/26/17 07:00 Globulin 4.5 gm/dL 04/26/17 07:00 Albumin/Globulin Ratio 0.5 (1.0-1.8) L 04/26/17 07:00 Prealbumin 9 mg/dL (10-36) L 04/24/17 05:30 Triglycerides 252 mg/dL (<150) H 04/24/17 05:30 Cholesterol 89 mg/dL (<200) 04/24/17 04:30 LDL Cholesterol Direct 38 mg/dL (75-193) L 04/14/17 14:55 HDL Cholesterol 13 mg/dL (23-92) L 04/14/17 14:55 Amylase 31 U/L (29-103) 04/14/17 14:55 Lipase 15 U/L (11-82) 04/14/17 14:55 Urine Source [place] 04/25/17 07:35 Urine Color YELLOW 04/25/17 07:35 Urine Clarity CLEAR (CLEAR) 04/25/17 07:35 Urine pH 5.5 04/25/17 07:35 Ur Specific [place] 1.015 (1.005-1.030) 04/25/17 07:35 Urine Protein TRACE mg/dL (NEGATIVE) 04/25/17 07:35 Urine Glucose (UA) NEGATIVE mg/dL (NEGATIVE) 04/25/17 07:35 Urine Ketones NEGATIVE mg/dL (NEGATIVE) 04/25/17 07:35 Urine Blood SMALL (NEGATIVE) H 04/25/17 07:35 Urine Nitrate NEGATIVE (NEGATIVE) 04/25/17 07:35 Urine Bilirubin NEGATIVE (NEGATIVE) 04/25/17 07:35 Urine Urobilinogen 0.2 E.U./dL (0.2 - 1.0) 04/25/17 07:35 Ur Leukocyte Esterase NEGATIVE (NEGATIVE) 04/25/17 07:35 Urine RBC 0-2 /hpf (0-5) H 04/25/17 07:35 Urine WBC 0-2 /hpf (0-5) 04/25/17 07:35 Ur Epithelial Cells OCCASIONAL /lpf (FEW) 04/25/17 07:35 Amorphous Sediment MANY URATES (NONE SEEN) 04/14/17 15:05 Urine Bacteria FEW /hpf (NONE SEEN) 04/25/17 07:35 Vancomycin Trough 13.5 ug/mL (10-20) 04/19/17 19:20 Blood Type O POSITIVE 04/14/17 20:36 Antibody Screen NEGATIVE 04/14/17 20:36 - Physical Exam Vitals and I&O: Vital Signs Temp 98.8 F 04/26/17 04:00 Pulse 124 04/26/17 08:29 Resp 26 04/26/17 07:00 BP 117/71 04/26/17 07:15 Pulse Ox 98 04/26/17 07:00 Intake & Output 04/25/17 04/26/17 04/26/17 18:59 06:59 18:59 Intake Total 4460.667 2025.000 Output Total 1510 1190 0 Balance 2950.667 835.000 0 Weight (lbs) 93.894 kg 93.894 kg Intake: Intake, IV Amount 3360.667 845.000 D5-0.45NS 1,000 ml @ 40 560.667 439.333 mls/hr IV .Q24H ARIAN Rx#: [id number] Diltiazem 125 mg In 105.667 Dextrose 5% 100 ml @ 10 MG/HR 10 mls/hr IV TITR ARIAN Rx#:[id number] Linezolid 600mg/300mL 600 300 300 mg In 300 ml @ 300 mls/ hr IV Q12HR ARIAN Rx#: [id number] Meropenem 1 gm In Sodium 100 Chloride 0.9% 100 ml @ 100 mls/hr IV Q12H ARIAN Rx #:[id number] Multivitamin Inj 10 ml In 2400 Dextrose 70% 1,740 ml In Amino Acids 10% 500 ml In Intralipids 20% 150 ml @ 100 mls/hr IV .Q24H ARIAN Rx#:[id number] Oral 20 Tube Feeding 0 TPN/PPN 1080 1180 Blood Product 0 Lipid 0 Albumin 0 Other 0 Output: Gastric Drainage 0 Drainage 5 410 0 Left Lower Abdomen 400 Right Lower Abdomen 5 10 0 Urine 1450 100 Stool 5 Urine/Stool Mix 0 Emesis 0 Hemodialysis 0 Other 50 680 Other: # Voids 1 # Bowel Movements 1 Stool Characteristics Liquid Liquid Green Brown Green Active Medications: Current Medications Acetaminophen (Tylenol) 650 mg PO Q6H PRN PRN Reason: FEVER/PAIN Stop: 06/21/17 17:45 Last Admin: 04/25/17 23:28 Dose: 650 mg Albuterol/Ipratropium (Duoneb Neb) 3 ml HHN Q4HRT ARIAN Stop: 06/15/17 14:59 Last Admin: 04/26/17 06:59 Dose: 3 ml Amiodarone HCl (Cordarone) 200 mg NG BID ARIAN Stop: 06/24/17 23:14 Last Admin: 04/26/17 08:29 Dose: 200 mg Budesonide (Pulmicort) 0.5 mg HHN [facility]IDRT [facility] Stop: 06/15/17 18:59 Last Admin: 04/26/17 06:59 Dose: 0.5 mg Famotidine (Pepcid) 20 mg IVP Q12H ARIAN Stop: 06/24/17 09:14 Last Admin: 04/26/17 08:38 Dose: 20 mg Multivitamins/Minerals 10 ml/Dextrose/ Amino Acids/Electrolytes/ Fat Emulsion Intravenous 2,400 mls @ 100 mls/hr IV .Q24H [facility]AN Stop: 06/23/17 15:59 Last Admin: 04/25/17 18:23 Dose: 90 mls/hr Dextrose/Sodium Chloride (D5-0.45ns) 1,000 mls @ 40 mls/hr IV .Q24H [facility] Stop: 06/23/17 15:59 Last Admin: 04/25/17 21:32 Dose: 40 mls/hr Linezolid (Zyvox) 600 mg in 300 mls @ 300 mls/hr IV Q12HR ARIAN Stop: 06/23/17 22:59 Last Admin: 04/26/17 08:28 Dose: 300 mls/hr Fluconazole (Diflucan) 200 mg in 100 mls @ 100 mls/hr IV Q24HR [facility]AN Stop: 06/23/17 22:59 Last Admin: 04/25/17 22:42 Dose: 100 mls/hr Meropenem 1 gm/ Sodium (Chloride) 100 mls @ 100 mls/hr IV Q12H [facility]AN Stop: 06/24/17 00:00 Last Admin: 04/26/17 00:10 Dose: 200 mls/hr Diltiazem HCl 125 mg/ Dextrose 125 mls @ 10 mls/hr IV TITR ARIAN; 10 MG/HR PRN Reason: Protocol Stop: 06/24/17 12:41 Last Admin: 04/26/17 00:10 Dose: 15 mg/hr, 15 mls/hr Insulin Aspart (Novolog Insulin Sliding Scale) 0 units SUBQ Q6HR ARIAN PRN Reason: Protocol Stop: 06/16/17 17:59 Last Admin: 04/26/17 07:06 Dose: 4 units Miscellaneous (Probiotic Screen) 1 [facility] PRN PRN PRN Reason: PROTOCOL Stop: 06/14/17 09:39 Miscellaneous (Clinical Monitoring) 1 [facility] DAILY PRN PRN Reason: RENAL Stop: 06/15/17 12:48 Miscellaneous (Tpn Per Pharmacy) 1 [facility] PRN PRN PRN Reason: PROTOCOL Stop: 06/16/17 12:28 Morphine Sulfate (Morphine) 4 mg IVP Q2HR PRN PRN Reason: Pain (Moderate) Stop: 06/15/17 10:53 Last Admin: 04/26/17 08:15 Dose: 4 mg Ondansetron HCl (Zofran) 4 mg IVP Q6H PRN PRN Reason: Nausea / Vomiting Stop: 06/13/17 20:08 Last Admin: 04/25/17 21:06 Dose: 4 mg General: Mild distress, Other (confused) HEENT: Atraumatic, PERRLA, EOMI, Mucous membr. moist/pink Neck: Supple, +2 carotid pulse wo bruit Cardiovascular: Regular rate, Normal S1, Normal S2 Lungs: Other (diffuse rhonchi.) Abdomen: Soft, Distended, Other ( wound VAC anterior abdominal wall wound. L colostomy+) Extremities: Other (no edema and cyanosis.) Neurological: Reflexes 2+, Other (patient is confused and agitated.) Psych/Mental Status: Other (gets agitated at times.) - Procedures Procedures: Procedures Procedure Code Date BYPASS SIGMOID COLON TO CUTANEOUS, OPEN APPROACH [id number] 04/14/17 PARTIAL REMOVAL OF COLON 20896 04/14/17 RESECTION OF SIGMOID COLON, OPEN APPROACH [id number] 04/14/17 RESPIRATORY VENTILATION, 24-96 CONSECUTIVE HOURS [id number] 04/14/17 [facility] INPAVaibhav INIT [id number] 04/14/17 Assessment/Plan - Problem List Patient Problems: All Active Problems Abscess of sigmoid colon due to diverticulitis (Acute) K57.20 Diverticulitis of sigmoid colon (Acute) K57.32 Obesity (Acute) E66.9 Perforation of sigmoid colon due to diverticulitis (Acute) K57.20 Peritonitis (acute) generalized (Acute) K65.0 - Assessment Assessment: Current Active Problems Problem Status Onset Abscess of sigmoid colon due to diverticulitis Acute Diverticulitis of sigmoid colon Acute Obesity Acute Perforation of sigmoid colon due to diverticulitis Acute Peritonitis (acute) generalized Acute Perforated sigmoid diverticulitis status post exploratory laparotomy and sigmoid colectomy intra-abdominal abscess drainage lysis of adhesion and Ada procedure and colostomy. Postoperative respiratory failure off ventilator. Obesity. Polymicrobial peritonitis. Asthma. Electrolyte imbalance. SEKOU improving. Encephalopathy due to metabolic and infectious etio. Open surgical wound . Altered mental status secondary to metabolic and infectious encephalopathy. Postop anemia. - Plan Plan: Wound Vac as per surgery. IVF. Correct electrolytes. IV antibiotics as per ID. Rate control. Monitor strict I's and O's. Continue oxygen, HHN and when necessary BiPAP. Pulmonary follow-up. GI and DVT prophylaxis. Follow-up lab. Colostomy care. Post op follow up as per surgery. Guarded prognosis. Follow up on consultants recommendations. Symptoms management. Medication management. Overall prognosis is guarded. Care plan discussed with RN. Nutritional Asmnt/Malnutr-PDOC - Dietary Evaluation Malnutrition Findings (Please click <Entered> for more info): Nutritional Asmnt/Malnutrition Start: 04/19/17 14: 21 Text: Status: Complete Freq: Document 04/19/17 14:21 GSUN (Rec: 04/19/17 14:58 [id number] [id number]) Nutritional Asmnt/Malnutrition Patient General Information Nutritional Screening Moderate Risk Screening Diagnosis Sepsis, diverticulitis, peritonitis Pertinent Medical Hx/Surgical Hx Asthma, diverticulosis Subjective Information 56 year old male frome home. Pt was restless, moving extremities during visit. 04/14 : sigmoid colectomy, end colostomy, abscess drainage, diffuse peritontis. 04/16: pt started PPN. 04/17: central line and started on TPN. Spoke to family at bedside, explained parenteral nutrition , family undersoto and has no further question at this time. Weight discrepancies noted in EMR, family does not know UBW , estimated nutritional needs based Current Diet Order/ Nutrition Support TPN D10% AA4.25% at 90ml/hr with IL20% 150ml, providing 1401.6kcal Pertinent Medications Dilaudid, Novolog, Culturelle, Magnesium Sulfate, Vancomycin , TPN, Morphine, Multivitamins , Zofran, Protonix, Nacl0.9% Pertinent Labs 04/14: triglycerides 106, total bilirubin 1.1H, glucose 116H 04/17: magnesium 2.5, phsophorus 3.2 04/19: magnesium 1.8L, phosphorus 2.4L, BUN 28H, creatinine 1.3, glucose 154H, total bilirubin 1.1H, triglycerides 238H Nutritional Hx/Data Height 1.7 m Height (Calculated Centimeters) 170.2 Current Weight (lbs) 95.254 kg Weight (Calculated Kilograms) 95.3 Weight (Calculated Grams) 56206.4 [place] Body Weight 148 Weight Status Overweight GI Symptoms Skin Integrity/Comment: [place] 14. Facial non-pitting 1+, bilateral hands pitting 1+ Estimated Nutritional Goals Calories/Kcals/Kg IBW 148/67.3kg Kcals Calculated 2019-2356kcal (30-35kcal/kg) Protein Calculated 101-135g (1.5-2g/kg) Fluid: ml Per MD Nutritional Problem 1. Problem Problem Altered GI function related to Etiology abscess and perforation of sigmoid colon due to diverticulitis aeb Signs/Symptoms: post-operative, on TPN Intervention/Recommendation Comments 1. Recommend TPN D15% AA5.5% at 100ml/hr with IL20% 150ml, providing 2400ml total volume, 2052kcal, 132g protein, meeting 100% of estimated nutritional needs. Carb load 2 .6mg/kg/min (using 210lb adm weight). 2. Monitor for possible refeeding syndrome, 04/18: phsophorus 2.1L, 04/19: magnesium 1.9. 3. Monitor triglycerides, total bilirubin, glucose, renal labs. Expected Outcomes/Goals Expected Outcomes/Goals 1. Pt to meet 100% of estimated nutritional needs on TPN.
--- NOTE | 2017-04-26 10:39 | Diagnostic Imaging Report ---
KUB abdominal film HISTORY: Nasogastric tube placement The exam is limited to the upper abdomen. Nasogastric tube extends below the diaphragm into the region of the stomach. The visualized abdomen demonstrates a nonspecific gas pattern of nondilated bowel. IMPRESSION: 1. Nasogastric tube projecting over the gastric area.
--- NOTE | 2017-04-26 14:10 | Infectious Disease Prog Note ---
Infectious Disease Subjective - Review of Systems Service Date: 04/26/17 Subjective: Fever is resolving. Infectious Disease Objective - Results Result Diagrams: 04/26/17 07:00 04/26/17 07:00 Recent Labs: Laboratory Last Values WBC 12.1 Th/cmm (4.8-10.8) H 04/26/17 07:00 RBC 3.17 Mil/cmm (4.30-5.70) L 04/26/17 07:00 Hgb 8.3 gm/dL (13.2-17.3) L 04/26/17 07:00 Hct 24.8 % (39.0-49.0) L 04/26/17 07:00 MCV 78.2 fl (80-99) L 04/26/17 07:00 MCH 26.1 pg (26.0-30.0) 04/26/17 07:00 MCHC Differential 33.4 pg (28.0-36.0) 04/26/17 07:00 RDW 15.1 % (11.5-20.0) 04/26/17 07:00 Plt Count 585 Th/cmm (150-400) H 04/26/17 07:00 MPV 9.1 fl 04/26/17 07:00 Neutrophils % 79.0 % (40.0-80.0) 04/26/17 07:00 Band Neutrophils % 3 % (0-10) 04/19/17 04:40 Lymphocytes % 10.8 % (20.0-50.0) L 04/26/17 07:00 Monocytes % 6.7 % (2.0-10.0) 04/26/17 07:00 Eosinophils % 2.0 % (0.0-5.0) 04/26/17 07:00 Basophils % 1.5 % (0.0-2.0) 04/26/17 07:00 Neutrophils (Manual) 79 % (40-80) 04/22/17 05:04 Lymphocytes 14 % (20-50) L 04/22/17 05:04 Monocytes 6 % (2-10) 04/22/17 05:04 Eosinophils 1 % (0-5) 04/19/17 04:40 Metamyelocytes 1 % (0-0) H 04/22/17 05:04 Platelet Estimate INCREASED PLATELETS (NORMAL) 04/22/17 05:04 Platelet Morphology NORMAL (NORMAL) 04/22/17 05:04 Anisocytosis 1+ 04/22/17 05:04 RBC Morph Micro Appear ABNORMAL (NORMAL) 04/22/17 05:04 ESR > 140 mm/hr (0-20) H 04/20/17 07:00 PT 11.9 SECONDS (9.5-11.5) H 04/24/17 21:19 INR 1.13 (0.5-1.4) 04/24/17 21:19 PTT (Actin FS) 27.6 SECONDS (26.0-38.0) 04/24/17 21:19 Specimen Source Arterial 04/25/17 10:00 Sample Site Left Radial 04/25/17 10:00 pH 7.48 (7.35-7.45) H 04/25/17 10:00 pCO2 32.0 mmHg (35.0-45.0) L 04/25/17 10:00 pO2 123.0 mmHg (80.0-100.0) H 04/25/17 10:00 HCO3 25.7 mEq/L (20.0-26.0) 04/25/17 10:00 Base Excess 0.9 mEq/L (-3.0-3.0) 04/25/17 10:00 O2 Saturation 99.0 % (92.0-100.0) 04/25/17 10:00 Chau Test Positive 04/25/17 10:00 Vent Rate NA 04/19/17 09:00 Inspired O2 28 04/25/17 10:00 Tidal Volume NA 04/19/17 09:00 PEEP NA 04/19/17 09:00 Pressure (ins/psv/peep) NA 04/19/17 09:00 Critical Value PING 04/25/17 10:00 Sodium 137 mEq/L (136-145) 04/26/17 07:00 Potassium 4.0 mEq/L (3.5-5.1) 04/26/17 07:00 Chloride 108 mEq/L (98-107) H 04/26/17 07:00 Carbon Dioxide 22.9 mEq/L (21.0-31.0) 04/26/17 07:00 Anion Gap 10.1 (7.0-16.0) 04/26/17 07:00 BUN 29 mg/dL (7-25) H 04/26/17 07:00 Creatinine 2.1 mg/dL (0.7-1.3) H 04/26/17 07:00 Est GFR ( Amer) 42.1 ml/min (>90) 04/26/17 07:00 Est GFR (Non-Af Amer) 34.8 ml/min 04/26/17 07:00 BUN/Creatinine Ratio 13.8 04/26/17 07:00 Glucose 234 mg/dL (70-105) H 04/26/17 07:00 POC Glucose 286 MG/DL (70 - 105) H 04/26/17 12:13 Hemoglobin A1c % 6.7 % (4.0-6.0) H 04/22/17 05:04 Whole Bld Lactic Acid 1.30 mmol/L (0.60-1.99) 04/24/17 21:19 Uric Acid 3.6 mg/dL (4.4-7.6) L 04/20/17 07:00 Calcium 8.4 mg/dL (8.6-10.3) L 04/26/17 07:00 Phosphorus 2.8 mg/dL (2.5-5.0) 04/26/17 07:00 Magnesium 2.1 mg/dL (1.9-2.7) 04/26/17 07:00 Total Bilirubin 0.5 mg/dL (0.3-1.0) 04/26/17 07:00 AST 24 U/L (13-39) 04/26/17 07:00 ALT 19 U/L (7-52) 04/26/17 07:00 Alkaline Phosphatase 59 U/L (34-104) 04/26/17 07:00 Creatine Kinase 136 U/L (30-223) 04/14/17 14:55 Troponin I 0.01 ng/mL (0.01-0.05) 04/22/17 05:04 C-Reactive Protein 28.9 mg/dL (0.0-0.9) H 04/20/17 07:00 B-Natriuretic Peptide 85.5 pg/mL (5.0-100.0) 04/14/17 14:55 Total Protein 6.9 gm/dL (6.0-8.3) 04/26/17 07:00 Albumin 2.4 gm/dL (4.2-5.5) L 04/26/17 07:00 Globulin 4.5 gm/dL 04/26/17 07:00 Albumin/Globulin Ratio 0.5 (1.0-1.8) L 04/26/17 07:00 Prealbumin 9 mg/dL (10-36) L 04/24/17 05:30 Triglycerides 252 mg/dL (<150) H 04/24/17 05:30 Cholesterol 89 mg/dL (<200) 04/24/17 04:30 LDL Cholesterol Direct 38 mg/dL (75-193) L 04/14/17 14:55 HDL Cholesterol 13 mg/dL (23-92) L 04/14/17 14:55 Amylase 31 U/L (29-103) 04/14/17 14:55 Lipase 15 U/L (11-82) 04/14/17 14:55 Urine Source [place] 04/25/17 07:35 Urine Color YELLOW 04/25/17 07:35 Urine Clarity CLEAR (CLEAR) 04/25/17 07:35 Urine pH 5.5 04/25/17 07:35 Ur Specific [place] 1.015 (1.005-1.030) 04/25/17 07:35 Urine Protein TRACE mg/dL (NEGATIVE) 04/25/17 07:35 Urine Glucose (UA) NEGATIVE mg/dL (NEGATIVE) 04/25/17 07:35 Urine Ketones NEGATIVE mg/dL (NEGATIVE) 04/25/17 07:35 Urine Blood SMALL (NEGATIVE) H 04/25/17 07:35 Urine Nitrate NEGATIVE (NEGATIVE) 04/25/17 07:35 Urine Bilirubin NEGATIVE (NEGATIVE) 04/25/17 07:35 Urine Urobilinogen 0.2 E.U./dL (0.2 - 1.0) 04/25/17 07:35 Ur Leukocyte Esterase NEGATIVE (NEGATIVE) 04/25/17 07:35 Urine RBC 0-2 /hpf (0-5) H 04/25/17 07:35 Urine WBC 0-2 /hpf (0-5) 04/25/17 07:35 Ur Epithelial Cells OCCASIONAL /lpf (FEW) 04/25/17 07:35 Amorphous Sediment MANY URATES (NONE SEEN) 04/14/17 15:05 Urine Bacteria FEW /hpf (NONE SEEN) 04/25/17 07:35 Vancomycin Trough 13.5 ug/mL (10-20) 04/19/17 19:20 Blood Type O POSITIVE 04/14/17 20:36 Antibody Screen NEGATIVE 04/14/17 20:36 - Physical Exam Vitals and I&O: Vital Signs Temp 98.6 F 04/26/17 13:00 Pulse 123 04/26/17 13:00 Resp 27 04/26/17 13:00 BP 117/73 04/26/17 13:00 Pulse Ox 100 04/26/17 13:00 Intake & Output 04/25/17 04/26/17 04/26/17 18:59 06:59 18:59 Intake Total 4460.667 2125.000 1934 Output Total 1510 1190 100 Balance 2950.667 398.151 2002 Weight (lbs) 93.894 kg 93.894 kg 94.092 kg Intake: Intake, IV Amount 3360.667 373.883 2331 D5-0.45NS 1,000 ml @ 40 560.667 439.333 mls/hr IV .Q24H [facility] Rx#: [id number] Diltiazem 125 mg In 105.667 125 Dextrose 5% 100 ml @ 10 MG/HR 10 mls/hr IV TITR [facility] Rx#:[id number] Linezolid 600mg/300mL 600 300 300 300 mg In 300 ml @ 300 mls/ hr IV Q12HR [facility] Rx#: [id number] Meropenem 1 gm In Sodium 100 100 Chloride 0.9% 100 ml @ 100 mls/hr IV Q12H [facility] Rx #:[id number] Multivitamin Inj 10 ml In 2400 1419 Dextrose 70% 1,740 ml In Amino Acids 10% 500 ml In Intralipids 20% 150 ml @ 100 mls/hr IV .Q24H [facility] Rx#:[id number] Oral 20 Tube Feeding 0 TPN/PPN 1080 1180 90 Blood Product 0 Lipid 0 Albumin 0 Other 0 Output: Gastric Drainage 0 100 Drainage 5 410 0 Left Lower Abdomen 400 Right Lower Abdomen 5 10 0 Urine 1450 100 Stool 5 Urine/Stool Mix 0 Emesis 0 Hemodialysis 0 Other 50 680 Other: # Voids 1 # Bowel Movements 1 Stool Characteristics Liquid Liquid Liquid Green Brown Brown Green Green Active Medications: Current Medications Acetaminophen (Tylenol) 650 mg PO Q6H PRN PRN Reason: FEVER/PAIN Stop: 06/21/17 17:45 Last Admin: 04/25/17 23:28 Dose: 650 mg Albuterol/Ipratropium (Duoneb Neb) 3 ml HHN Q4HRT [facility] Stop: 06/15/17 14:59 Last Admin: 04/26/17 11:04 Dose: 3 ml Amiodarone HCl (Cordarone) 200 mg NG BID [facility] Stop: 06/24/17 23:14 Last Admin: 04/26/17 08:29 Dose: 200 mg Budesonide (Pulmicort) 0.5 mg HHN BIDRT [facility] Stop: 06/15/17 18:59 Last Admin: 04/26/17 06:59 Dose: 0.5 mg Famotidine (Pepcid) 20 mg IVP Q12H [facility] Stop: 06/24/17 09:14 Last Admin: 04/26/17 08:38 Dose: 20 mg Multivitamins/Minerals 10 ml/Dextrose/ Amino Acids/Electrolytes/ Fat Emulsion Intravenous 2,400 mls @ 100 mls/hr IV .Q24H [facility] Stop: 06/23/17 15:59 Last Infusion: 04/26/17 10:09 Dose: 100 mls/hr Dextrose/Sodium Chloride (D5-0.45ns) 1,000 mls @ 40 mls/hr IV .Q24H [facility] Stop: 06/23/17 15:59 Last Admin: 04/25/17 21:32 Dose: 40 mls/hr Linezolid (Zyvox) 600 mg in 300 mls @ 300 mls/hr IV Q12HR [facility] Stop: 06/23/17 22:59 Last Infusion: 04/26/17 09:30 Dose: Infused Fluconazole (Diflucan) 200 mg in 100 mls @ 100 mls/hr IV Q24HR [facility] Stop: 06/23/17 22:59 Last Admin: 04/25/17 22:42 Dose: 100 mls/hr Meropenem 1 gm/ Sodium (Chloride) 100 mls @ 100 mls/hr IV Q12H [facility] Stop: 06/24/17 00:00 Last Admin: 04/26/17 11:07 Dose: 200 mls/hr Diltiazem HCl 125 mg/ Dextrose 125 mls @ 10 mls/hr IV TITR [facility]; 10 MG/HR PRN Reason: Protocol Stop: 06/24/17 12:41 Last Admin: 04/26/17 10:35 Dose: 15 mg/hr, 15 mls/hr Insulin Aspart (Novolog Insulin Sliding Scale) 0 units SUBQ Q6HR [facility] PRN Reason: Protocol Stop: 06/16/17 17:59 Last Admin: 04/26/17 12:14 Dose: 6 units Lorazepam (Ativan) 1 mg IVP Q4HR PRN; Protocol PRN Reason: Agitation Stop: 06/25/17 10:40 Last Admin: 04/26/17 11:00 Dose: 1 mg Miscellaneous (Probiotic Screen) 1 ea PRN PRN PRN Reason: PROTOCOL Stop: 06/14/17 09:39 Miscellaneous (Clinical Monitoring) [facility] DAILY PRN PRN Reason: RENAL Stop: 06/15/17 12:48 Miscellaneous (Tpn Per Pharmacy) [facility] PRN PRN PRN Reason: PROTOCOL Stop: 06/16/17 12:28 Morphine Sulfate (Morphine) 4 mg IVP Q2HR PRN PRN Reason: Pain (Moderate) Stop: 06/15/17 10:53 Last Admin: 04/26/17 12:00 Dose: 4 mg Ondansetron HCl (Zofran) 4 mg IVP Q6H PRN PRN Reason: Nausea / Vomiting Stop: 06/13/17 20:08 Last Admin: 04/25/17 21:06 Dose: 4 mg General: no acute distress, well developed, well nourished HEENT: atraumatic, normocephalic, PERRLA Neck: supple, no thyromegaly Cardiovascular: S1S2, regular Lungs: no clear to auscultation bilaterally, no clear to percussion, no crackles Abdomen: soft, tender, drain, other (open surgical wound with woundvac.) Extremities: no cyanosis, no clubbing, no edema Neurological: awake, alert - Procedures Procedures: Procedures Procedure Code Date BYPASS SIGMOID COLON TO CUTANEOUS, OPEN APPROACH [id number] 04/14/17 PARTIAL REMOVAL OF COLON 52190 04/14/17 RESECTION OF SIGMOID COLON, OPEN APPROACH [id number] 04/14/17 RESPIRATORY VENTILATION, 24-96 CONSECUTIVE HOURS [id number] 04/14/17 VENT MGMT INPA INIT DAY 97809 04/14/17 Infectious Disease Assmt/Plan - Problem List Patient Problems: All Active Problems Abscess of sigmoid colon due to diverticulitis (Acute) K57.20 Diverticulitis of sigmoid colon (Acute) K57.32 Obesity (Acute) E66.9 Perforation of sigmoid colon due to diverticulitis (Acute) K57.20 Peritonitis (acute) generalized (Acute) K65.0 - Assessment Assessment: 1. Sepsis. febril,but leukocytosis persists. 2. Diverticulitis, sigmoid diverticula to with support complicated by multiple abscesses and peritonitis. 3. Post operatively, on ventilator. 4. Peritonitis. Likely polymicrobial. 5. History of asthma. 6. History of arthritis. 7. Distended abdomen likely post operative ileus. Rule out small bowel obstruction. 8. SEKOU. 9. Post op, paralytic ileus. improved. 10. Wrist cellulitis, worse on left with destruction of bones. X ray of the left wrist suggested osteomyelitis. 11. Wound dehiscence. Plan: Conitnue Zyvox iv, mermen and diflucan. Sepsis workup was performed and follow the sepsis workup. Nutritional Asmnt/Malnutr-PDOC - Dietary Evaluation Malnutrition Findings (Please click <Entered> for more info): Nutritional Asmnt/Malnutrition Start: 04/19/17 14: 21 Text: Status: Complete Freq: Document 04/19/17 14:21 GSUN (Rec: 04/19/17 14:58 [id number]) Nutritional Asmnt/Malnutrition Patient General Information Nutritional Screening Moderate Risk Screening Diagnosis Sepsis, diverticulitis, peritonitis Pertinent Medical Hx/Surgical Hx Asthma, diverticulosis Subjective Information 56 year old male frome home. Pt was restless, moving extremities during visit. 04/14 : sigmoid colectomy, end colostomy, abscess drainage, diffuse peritontis. 04/16: pt started PPN. 04/17: central line and started on TPN. Spoke to family at bedside, explained parenteral nutrition , family undersoto and has no further question at this time. Weight discrepancies noted in EMR, family does not know UBW , estimated nutritional needs based Current Diet Order/ Nutrition Support TPN D10% AA4.25% at 90ml/hr with IL20% 150ml, providing 1401.6kcal Pertinent Medications Dilaudid, Novolog, Culturelle, Magnesium Sulfate, Vancomycin , TPN, Morphine, Multivitamins , Zofran, Protonix, Nacl0.9% Pertinent Labs 04/14: triglycerides 106, total bilirubin 1.1H, glucose 116H 04/17: magnesium 2.5, phsophorus 3.2 04/19: magnesium 1.8L, phosphorus 2.4L, BUN 28H, creatinine 1.3, glucose 154H, total bilirubin 1.1H, triglycerides 238H Nutritional Hx/Data Height 1.7 m Height (Calculated Centimeters) 170.2 Current Weight (lbs) 95.254 kg Weight (Calculated Kilograms) 95.3 Weight (Calculated Grams) 50714.4 [place] Body Weight 148 Weight Status Overweight GI Symptoms Skin Integrity/Comment: [place] 14. Facial non-pitting 1+, bilateral hands pitting 1+ Estimated Nutritional Goals Calories/Kcals/Kg IBW 148/67.3kg Kcals Calculated 2019-2356kcal (30-35kcal/kg) Protein Calculated 101-135g (1.5-2g/kg) Fluid: ml Per MD Nutritional Problem 1. Problem Problem Altered GI function related to Etiology abscess and perforation of sigmoid colon due to diverticulitis aeb Signs/Symptoms: post-operative, on TPN Intervention/Recommendation Comments 1. Recommend TPN D15% AA5.5% at 100ml/hr with IL20% 150ml, providing 2400ml total volume, 2052kcal, 132g protein, meeting 100% of estimated nutritional needs. Carb load 2 .6mg/kg/min (using 210lb adm weight). 2. Monitor for possible refeeding syndrome, 04/18: phsophorus 2.1L, 04/19: magnesium 1.9. 3. Monitor triglycerides, total bilirubin, glucose, renal labs. Expected Outcomes/Goals Expected Outcomes/Goals 1. Pt to meet 100% of estimated nutritional needs on TPN.
[2017-04-26] MEDS: D5-0.45NS 1,000 ML IV SCH (16:03)
[2017-04-26] MEDS: TPN 10%-70% CUSTOM IV SCH (16:03)
--- NOTE | 2017-04-26 21:53 | General Progress Note ---
Subjective - Review of Systems Service Date: 04/26/17 Subjective: confused again, obtunded, nonverbal Objective - Results Result Diagrams: 04/26/17 07:00 04/26/17 07:00 Recent Labs: Laboratory Last Values WBC 12.1 Th/cmm (4.8-10.8) H 04/26/17 07:00 RBC 3.17 Mil/cmm (4.30-5.70) L 04/26/17 07:00 Hgb 8.3 gm/dL (13.2-17.3) L 04/26/17 07:00 Hct 24.8 % (39.0-49.0) L 04/26/17 07:00 MCV 78.2 fl (80-99) L 04/26/17 07:00 MCH 26.1 pg (26.0-30.0) 04/26/17 07:00 MCHC Differential 33.4 pg (28.0-36.0) 04/26/17 07:00 RDW 15.1 % (11.5-20.0) 04/26/17 07:00 Plt Count 585 Th/cmm (150-400) H 04/26/17 07:00 MPV 9.1 fl 04/26/17 07:00 Neutrophils % 79.0 % (40.0-80.0) 04/26/17 07:00 Band Neutrophils % 3 % (0-10) 04/19/17 04:40 Lymphocytes % 10.8 % (20.0-50.0) L 04/26/17 07:00 Monocytes % 6.7 % (2.0-10.0) 04/26/17 07:00 Eosinophils % 2.0 % (0.0-5.0) 04/26/17 07:00 Basophils % 1.5 % (0.0-2.0) 04/26/17 07:00 Neutrophils (Manual) 79 % (40-80) 04/22/17 05:04 Lymphocytes 14 % (20-50) L 04/22/17 05:04 Monocytes 6 % (2-10) 04/22/17 05:04 Eosinophils 1 % (0-5) 04/19/17 04:40 Metamyelocytes 1 % (0-0) H 04/22/17 05:04 Platelet Estimate INCREASED PLATELETS (NORMAL) 04/22/17 05:04 Platelet Morphology NORMAL (NORMAL) 04/22/17 05:04 Anisocytosis 1+ 04/22/17 05:04 RBC Morph Micro Appear ABNORMAL (NORMAL) 04/22/17 05:04 ESR > 140 mm/hr (0-20) H 04/20/17 07:00 PT 11.9 SECONDS (9.5-11.5) H 04/24/17 21:19 INR 1.13 (0.5-1.4) 04/24/17 21:19 PTT (Actin FS) 27.6 SECONDS (26.0-38.0) 04/24/17 21:19 Specimen Source Arterial 04/25/17 10:00 Sample Site Left Radial 04/25/17 10:00 pH 7.48 (7.35-7.45) H 04/25/17 10:00 pCO2 32.0 mmHg (35.0-45.0) L 04/25/17 10:00 pO2 123.0 mmHg (80.0-100.0) H 04/25/17 10:00 HCO3 25.7 mEq/L (20.0-26.0) 04/25/17 10:00 Base Excess 0.9 mEq/L (-3.0-3.0) 04/25/17 10:00 O2 Saturation 99.0 % (92.0-100.0) 04/25/17 10:00 Chau Test Positive 04/25/17 10:00 Vent Rate NA 04/19/17 09:00 Inspired O2 28 04/25/17 10:00 Tidal Volume NA 04/19/17 09:00 PEEP NA 04/19/17 09:00 Pressure (ins/psv/peep) NA 04/19/17 09:00 Critical Value PING 04/25/17 10:00 Sodium 137 mEq/L (136-145) 04/26/17 07:00 Potassium 4.0 mEq/L (3.5-5.1) 04/26/17 07:00 Chloride 108 mEq/L (98-107) H 04/26/17 07:00 Carbon Dioxide 22.9 mEq/L (21.0-31.0) 04/26/17 07:00 Anion Gap 10.1 (7.0-16.0) 04/26/17 07:00 BUN 29 mg/dL (7-25) H 04/26/17 07:00 Creatinine 2.1 mg/dL (0.7-1.3) H 04/26/17 07:00 Est GFR ( Amer) 42.1 ml/min (>90) 04/26/17 07:00 Est GFR (Non-Af Amer) 34.8 ml/min 04/26/17 07:00 BUN/Creatinine Ratio 13.8 04/26/17 07:00 Glucose 234 mg/dL (70-105) H 04/26/17 07:00 POC Glucose 274 MG/DL (70 - 105) H 04/26/17 17:45 Hemoglobin A1c % 6.7 % (4.0-6.0) H 04/22/17 05:04 Whole Bld Lactic Acid 1.30 mmol/L (0.60-1.99) 04/24/17 21:19 Uric Acid 3.6 mg/dL (4.4-7.6) L 04/20/17 07:00 Calcium 8.4 mg/dL (8.6-10.3) L 04/26/17 07:00 Phosphorus 2.8 mg/dL (2.5-5.0) 04/26/17 07:00 Magnesium 2.1 mg/dL (1.9-2.7) 04/26/17 07:00 Total Bilirubin 0.5 mg/dL (0.3-1.0) 04/26/17 07:00 AST 24 U/L (13-39) 04/26/17 07:00 ALT 19 U/L (7-52) 04/26/17 07:00 Alkaline Phosphatase 59 U/L (34-104) 04/26/17 07:00 Creatine Kinase 136 U/L (30-223) 04/14/17 14:55 Troponin I 0.01 ng/mL (0.01-0.05) 04/22/17 05:04 C-Reactive Protein 28.9 mg/dL (0.0-0.9) H 04/20/17 07:00 B-Natriuretic Peptide 85.5 pg/mL (5.0-100.0) 04/14/17 14:55 Total Protein 6.9 gm/dL (6.0-8.3) 04/26/17 07:00 Albumin 2.4 gm/dL (4.2-5.5) L 04/26/17 07:00 Globulin 4.5 gm/dL 04/26/17 07:00 Albumin/Globulin Ratio 0.5 (1.0-1.8) L 04/26/17 07:00 Prealbumin 9 mg/dL (10-36) L 04/24/17 05:30 Triglycerides 252 mg/dL (<150) H 04/24/17 05:30 Cholesterol 89 mg/dL (<200) 04/24/17 04:30 LDL Cholesterol Direct 38 mg/dL (75-193) L 04/14/17 14:55 HDL Cholesterol 13 mg/dL (23-92) L 04/14/17 14:55 Amylase 31 U/L (29-103) 04/14/17 14:55 Lipase 15 U/L (11-82) 04/14/17 14:55 Urine Source SEN PORT 04/25/17 07:35 Urine Color YELLOW 04/25/17 07:35 Urine Clarity CLEAR (CLEAR) 04/25/17 07:35 Urine pH 5.5 04/25/17 07:35 Ur Specific Ridott 1.015 (1.005-1.030) 04/25/17 07:35 Urine Protein TRACE mg/dL (NEGATIVE) 04/25/17 07:35 Urine Glucose (UA) NEGATIVE mg/dL (NEGATIVE) 04/25/17 07:35 Urine Ketones NEGATIVE mg/dL (NEGATIVE) 04/25/17 07:35 Urine Blood SMALL (NEGATIVE) H 04/25/17 07:35 Urine Nitrate NEGATIVE (NEGATIVE) 04/25/17 07:35 Urine Bilirubin NEGATIVE (NEGATIVE) 04/25/17 07:35 Urine Urobilinogen 0.2 E.U./dL (0.2 - 1.0) 04/25/17 07:35 Ur Leukocyte Esterase NEGATIVE (NEGATIVE) 04/25/17 07:35 Urine RBC 0-2 /hpf (0-5) H 04/25/17 07:35 Urine WBC 0-2 /hpf (0-5) 04/25/17 07:35 Ur Epithelial Cells OCCASIONAL /lpf (FEW) 04/25/17 07:35 Amorphous Sediment MANY URATES (NONE SEEN) 04/14/17 15:05 Urine Bacteria FEW /hpf (NONE SEEN) 04/25/17 07:35 Vancomycin Trough 13.5 ug/mL (10-20) 04/19/17 19:20 Blood Type O POSITIVE 04/14/17 20:36 Antibody Screen NEGATIVE 04/14/17 20:36 - Physical Exam Vitals and I&O: Vital Signs Temp 98.6 F 04/26/17 19:00 Pulse 120 04/26/17 19:45 Resp 20 04/26/17 19:10 BP 124/70 04/26/17 19:45 Pulse Ox 100 04/26/17 19:10 Intake & Output 04/26/17 04/26/17 04/27/17 06:59 18:59 06:59 Intake Total 2125.000 4768.000 Output Total 1190 2355 Balance 507.010 8479.000 Weight (lbs) 93.894 kg 94.092 kg Intake: Intake, IV Amount 395.487 6386.000 D5-0.45NS 1,000 ml @ 40 439.333 740.667 mls/hr IV .Q24H ARIAN Rx#: [id number] Diltiazem 125 mg In 105.667 250 Dextrose 5% 100 ml @ 10 MG/HR 10 mls/hr IV TITR ARIAN Rx#:[id number] Linezolid 600mg/300mL 600 300 300 mg In 300 ml @ 300 mls/ hr IV Q12HR [facility] Rx#: [id number] Meropenem 1 gm In Sodium 100 100 Chloride 0.9% 100 ml @ 100 mls/hr IV Q12H [facility] Rx #:[id number] Multivitamin Inj 10 ml In 2007.333 Dextrose 70% 1,740 ml In Amino Acids 10% 500 ml In Intralipids 20% 150 ml @ 100 mls/hr IV .Q24H [facility]AN Rx#:[id number] TPN/PPN 1180 1170 Other 200 Output: Gastric Drainage 650 Drainage 410 5 Left Lower Abdomen 400 Right Lower Abdomen 10 5 Urine 100 1700 Other 680 Other: Stool Characteristics Liquid Liquid Brown Brown Green Green Active Medications: Current Medications Acetaminophen (Tylenol) 650 mg PO Q6H PRN PRN Reason: FEVER/PAIN Stop: 06/21/17 17:45 Last Admin: 04/25/17 23:28 Dose: 650 mg Albuterol/Ipratropium (Duoneb Neb) 3 ml HHN Q4HRT [facility] Stop: 06/15/17 14:59 Last Admin: 04/26/17 18:56 Dose: 3 ml Amiodarone HCl (Cordarone) 200 mg NG BID [facility] Stop: 06/24/17 23:14 Last Admin: 04/26/17 16:03 Dose: 200 mg Budesonide (Pulmicort) 0.5 mg HHN BIDRT [facility] Stop: 06/15/17 18:59 Last Admin: 04/26/17 18:56 Dose: 0.5 mg Famotidine (Pepcid) 20 mg IVP Q12H [facility] Stop: 06/24/17 09:14 Last Admin: 04/26/17 21:16 Dose: 20 mg Multivitamins/Minerals 10 ml/Dextrose/ Amino Acids/Electrolytes/ Fat Emulsion Intravenous 2,400 mls @ 100 mls/hr IV .Q24H [facility] Stop: 06/23/17 15:59 Last Admin: 04/26/17 16:03 Dose: 100 mls/hr Dextrose/Sodium Chloride (D5-0.45ns) 1,000 mls @ 40 mls/hr IV .Q24H [facility] Stop: 06/23/17 15:59 Last Admin: 04/26/17 16:03 Dose: 40 mls/hr Linezolid (Zyvox) 600 mg in 300 mls @ 300 mls/hr IV Q12HR [facility] Stop: 06/23/17 22:59 Last Admin: 04/26/17 21:15 Dose: 300 mls/hr Fluconazole (Diflucan) 200 mg in 100 mls @ 100 mls/hr IV Q24HR [facility] Stop: 06/23/17 22:59 Last Admin: 04/25/17 22:42 Dose: 100 mls/hr Meropenem 1 gm/ Sodium (Chloride) 100 mls @ 100 mls/hr IV Q12H [facility] Stop: 06/24/17 00:00 Last Infusion: 04/26/17 11:40 Dose: Infused Diltiazem HCl 125 mg/ Dextrose 125 mls @ 10 mls/hr IV TITR ARIAN; 10 MG/HR PRN Reason: Protocol Stop: 06/24/17 12:41 Last Admin: 04/26/17 19:45 Dose: 15 mg/hr, 15 mls/hr Insulin Aspart (Novolog Insulin Sliding Scale) 0 units SUBQ Q6HR [facility]AN PRN Reason: Protocol Stop: 06/16/17 17:59 Last Admin: 04/26/17 18:03 Dose: 6 units Lorazepam (Ativan) 1 mg IVP Q4HR PRN; Protocol PRN Reason: Agitation Stop: 06/25/17 10:40 Last Admin: 04/26/17 15:12 Dose: 1 mg Miscellaneous (Probiotic Screen) 1 ea PRN PRN PRN Reason: PROTOCOL Stop: 06/14/17 09:39 Miscellaneous (Clinical Monitoring) 1 ea DAILY PRN PRN Reason: RENAL Stop: 06/15/17 12:48 Miscellaneous (Tpn Per Pharmacy) 1 [facility] PRN PRN PRN Reason: PROTOCOL Stop: 06/16/17 12:28 Morphine Sulfate (Morphine) 4 mg IVP Q2HR PRN PRN Reason: Pain (Moderate) Stop: 06/15/17 10:53 Last Admin: 04/26/17 20:15 Dose: 4 mg Ondansetron HCl (Zofran) 4 mg IVP Q6H PRN PRN Reason: Nausea / Vomiting Stop: 06/13/17 20:08 Last Admin: 04/25/17 21:06 Dose: 4 mg General: Mild distress, Other (confused) HEENT: Atraumatic, PERRLA, EOMI, Mucous membr. moist/pink Neck: Supple, +2 carotid pulse wo bruit Cardiovascular: Regular rate, Normal S1, Normal S2 Lungs: Other (diffuse rhonchi.) Abdomen: Soft, Distended, Other ( wound VAC anterior abdominal wall wound. L colostomy+) Extremities: Other (no edema and cyanosis.) Neurological: Reflexes 2+, Other (patient is confused and agitated.) Psych/Mental Status: Other (gets agitated at times.) - Procedures Procedures: Procedures Procedure Code Date BYPASS SIGMOID COLON TO CUTANEOUS, OPEN APPROACH [id number] 04/14/17 PARTIAL REMOVAL OF COLON 76132 04/14/17 RESECTION OF SIGMOID COLON, OPEN APPROACH [id number] 04/14/17 RESPIRATORY VENTILATION, 24-96 CONSECUTIVE HOURS [id number] 04/14/17 VENT MGMT INPAT INIT DAY 30473 04/14/17 Assessment/Plan - Problem List Patient Problems: All Active Problems Abscess of sigmoid colon due to diverticulitis (Acute) K57.20 Diverticulitis of sigmoid colon (Acute) K57.32 Obesity (Acute) E66.9 Perforation of sigmoid colon due to diverticulitis (Acute) K57.20 Peritonitis (acute) generalized (Acute) K65.0 - Assessment Assessment: POD#12; s/p ex lap, sigmoid colectomy, drainage of peritonitis, lysis adhesions , ROLANDO drain placement 7/ icu status confused, obtunded, mumbling words continue IVfluids +TPN tachycardia, fever intermittently, mild leukocytosis WBC 12 ROLANDO drain expected output adequate urine output; BUN/Creat downtrending, recommend renal consultation dvt prophylaxis Lovenox SQ colostomy end necrosed and sloughed, severely retracted, but functional..... poor candidate for revision of colostomy CT results noted 04/25 infected abd wound, laura removed, and wound opened and packed, wound vac applied continue iv abx. sen cath stricts ins and out supportive care.... s/w family; guarded prognosis. Nutritional Asmnt/Malnutr-PDOC - Dietary Evaluation Malnutrition Findings (Please click <Entered> for more info): Nutritional Asmnt/Malnutrition Start: 04/19/17 14: 21 Text: Status: Complete Freq: Document 04/19/17 14:21 GSUN (Rec: 04/19/17 14:58 [id number]) Nutritional Asmnt/Malnutrition Patient General Information Nutritional Screening Moderate Risk Screening Diagnosis Sepsis, diverticulitis, peritonitis Pertinent Medical Hx/Surgical Hx Asthma, diverticulosis Subjective Information 56 year old male frome home. Pt was restless, moving extremities during visit. 04/14 : sigmoid colectomy, end colostomy, abscess drainage, diffuse peritontis. 04/16: pt started PPN. 04/17: central line and started on TPN. Spoke to family at bedside, explained parenteral nutrition , family undersoto and has no further question at this time. Weight discrepancies noted in EMR, family does not know UBW , estimated nutritional needs based Current Diet Order/ Nutrition Support TPN D10% AA4.25% at 90ml/hr with IL20% 150ml, providing 1401.6kcal Pertinent Medications Dilaudid, Novolog, Culturelle, Magnesium Sulfate, Vancomycin , TPN, Morphine, Multivitamins , Zofran, Protonix, Nacl0.9% Pertinent Labs 04/14: triglycerides 106, total bilirubin 1.1H, glucose 116H 04/17: magnesium 2.5, phsophorus 3.2 04/19: magnesium 1.8L, phosphorus 2.4L, BUN 28H, creatinine 1.3, glucose 154H, total bilirubin 1.1H, triglycerides 238H Nutritional Hx/Data Height 1.7 m Height (Calculated Centimeters) 170.2 Current Weight (lbs) 95.254 kg Weight (Calculated Kilograms) 95.3 Weight (Calculated Grams) 57773.4 [place] Body Weight 148 Weight Status Overweight GI Symptoms Skin Integrity/Comment: Gilmer 14. Facial non-pitting 1+, bilateral hands pitting 1+ Estimated Nutritional Goals Calories/Kcals/Kg IBW 148/67.3kg Kcals Calculated 2019-2356kcal (30-35kcal/kg) Protein Calculated 101-135g (1.5-2g/kg) Fluid: ml Per MD Nutritional Problem 1. Problem Problem Altered GI function related to Etiology abscess and perforation of sigmoid colon due to diverticulitis aeb Signs/Symptoms: post-operative, on TPN Intervention/Recommendation Comments 1. Recommend TPN D15% AA5.5% at 100ml/hr with IL20% 150ml, providing 2400ml total volume, 2052kcal, 132g protein, meeting 100% of estimated nutritional needs. Carb load 2 .6mg/kg/min (using 210lb adm weight). 2. Monitor for possible refeeding syndrome, 04/18: phsophorus 2.1L, 04/19: magnesium 1.9. 3. Monitor triglycerides, total bilirubin, glucose, renal labs. Expected Outcomes/Goals Expected Outcomes/Goals 1. Pt to meet 100% of estimated nutritional needs on TPN.
--- NOTE | 2017-04-26 22:16 | Progress Notes ---
DATE: 04/26/2017 PROBLEM LIST: 1. Severe obstructive sleep apnea syndrome. 2. Recurrent encephalopathy. 3. Intraperitoneal sepsis with possibly renal failure. SYMPTOMS: The patient is obtunded, sleepy, snoring, but no respiratory distress, etc. PHYSICAL EXAMINATION: VITAL SIGNS: Temperature is 98.6, blood pressure 117/73, saturation 100% on 2 L. NECK: Veins not visualized. CHEST: Shows occasional secretory noise upper airway, otherwise unremarkable. HEART: Regular. ABDOMEN: Slightly tender, distended. LABORATORY DATA: The patient's white count is 12,000, hemoglobin 8.3. Electrolytes shows creatinine is 2.1, BUN is 29. ASSESSMENT: The patient clinically status quo, not too much changed. PLANS AND SUGGESTIONS: Continue current supportive respiratory care, inhalation treatment, IV for intraperitoneal sepsis from ID, and continue rest of other treatment and go from there. JOB# [id number]
[2017-04-26] MEDS: Fluconazole 200mg/100mL 200 MG/100 ML BAG IV SCH (23:14)
[2017-04-27] MEDS: INSULIN ASPART SLIDING SCALE 100 UNITS/ML UNIT SUBQ SCH ×4 (00:44→18:06)
[2017-04-27] MEDS: Morphine Sulfate 4 mg/mL 1mL Syr IVP PRN ×4 (01:13→19:56)
[2017-04-27] MEDS: Albuterol/Ipratropium Neb 3 ML AERS HHN SCH ×6 (03:18→23:50)
[2017-04-27 05:07] LABS: HEMOGLOBIN 8.2 gm/dL (13.2-17.3); NEUTROPHILE ABSOLUTE 9.6 Th/cmm (1.8-8.0)
[2017-04-27 05:16] LABS: % BASOPHILS 0.4 % (0.0-2.0); % EOSINOPHILS 2.3 % (0.0-5.0); % LYMPHOCYTES 10.6 % (20.0-50.0); % MONOCYTES 5.1 % (2.0-10.0); % NEUTROPHILS 81.6 % (40.0-80.0); HEMATOCRIT 24.6 % (39.0-49.0); MEAN CELL VOLUME 78.6 fl (80-99); MEAN CORPUSCULAR HEMOGLOBIN 26.1 pg (26.0-30.0); MEAN CORPUSCULAR HGB CONC 33.2 pg (28.0-36.0); PLATELET COUNT 652 Th/cmm (150-400); RED BLOOD COUNT 3.13 Mil/cmm (4.30-5.70); RED CELL DISTRIBUTION WIDTH 15.1 % (11.5-20.0); WHITE BLOOD COUNT 11.8 Th/cmm (4.8-10.8)
[2017-04-27 05:27] LABS: ALB/GLOB RATIO 0.5 (1.0-1.8); ANION GAP 10.8 (7.0-16.0); BILIRUBIN,TOTAL 0.5 mg/dL (0.3-1.0); BUN/CREATININE RATIO 13.9; CALCIUM SERUM 8.7 mg/dL (8.6-10.3); CARBON DIOXIDE 22.6 mEq/L (21.0-31.0); CREATININE - SERUM 1.8 mg/dL (0.7-1.3); POTASSIUM SERUM 4.4 mEq/L (3.5-5.1)
[2017-04-27] MEDS: Budesonide 0.5 Mg/2 mL Ud HHN SCH ×2 (07:45→20:09)
[2017-04-27] MEDS: Linezolid 600mg/300mL 600 MG/300 ML BAG IV SCH ×2 (08:31→21:00)
--- NOTE | 2017-04-27 11:53 | General Progress Note ---
Subjective - Review of Systems Service Date: 04/27/17 Subjective: confused again, obtunded, nonverbal Objective - Results Result Diagrams: 04/27/17 04:30 04/27/17 04:30 Recent Labs: Laboratory Last Values WBC 11.8 Th/cmm (4.8-10.8) H 04/27/17 04:30 RBC 3.13 Mil/cmm (4.30-5.70) L 04/27/17 04:30 Hgb 8.2 gm/dL (13.2-17.3) L 04/27/17 04:30 Hct 24.6 % (39.0-49.0) L 04/27/17 04:30 MCV 78.6 fl (80-99) L 04/27/17 04:30 MCH 26.1 pg (26.0-30.0) 04/27/17 04:30 MCHC Differential 33.2 pg (28.0-36.0) 04/27/17 04:30 RDW 15.1 % (11.5-20.0) 04/27/17 04:30 Plt Count 652 Th/cmm (150-400) H 04/27/17 04:30 MPV 9.0 fl 04/27/17 04:30 Neutrophils % 81.6 % (40.0-80.0) H 04/27/17 04:30 Band Neutrophils % 3 % (0-10) 04/19/17 04:40 Lymphocytes % 10.6 % (20.0-50.0) L 04/27/17 04:30 Monocytes % 5.1 % (2.0-10.0) 04/27/17 04:30 Eosinophils % 2.3 % (0.0-5.0) 04/27/17 04:30 Basophils % 0.4 % (0.0-2.0) 04/27/17 04:30 Neutrophils (Manual) 79 % (40-80) 04/22/17 05:04 Lymphocytes 14 % (20-50) L 04/22/17 05:04 Monocytes 6 % (2-10) 04/22/17 05:04 Eosinophils 1 % (0-5) 04/19/17 04:40 Metamyelocytes 1 % (0-0) H 04/22/17 05:04 Platelet Estimate INCREASED PLATELETS (NORMAL) 04/22/17 05:04 Platelet Morphology NORMAL (NORMAL) 04/22/17 05:04 Anisocytosis 1+ 04/22/17 05:04 RBC Morph Micro Appear ABNORMAL (NORMAL) 04/22/17 05:04 ESR > 140 mm/hr (0-20) H 04/20/17 07:00 PT 11.9 SECONDS (9.5-11.5) H 04/24/17 21:19 INR 1.13 (0.5-1.4) 04/24/17 21:19 PTT (Actin FS) 27.6 SECONDS (26.0-38.0) 04/24/17 21:19 Specimen Source Arterial 04/25/17 10:00 Sample Site Left Radial 04/25/17 10:00 pH 7.48 (7.35-7.45) H 04/25/17 10:00 pCO2 32.0 mmHg (35.0-45.0) L 04/25/17 10:00 pO2 123.0 mmHg (80.0-100.0) H 04/25/17 10:00 HCO3 25.7 mEq/L (20.0-26.0) 04/25/17 10:00 Base Excess 0.9 mEq/L (-3.0-3.0) 04/25/17 10:00 O2 Saturation 99.0 % (92.0-100.0) 04/25/17 10:00 Chau Test Positive 04/25/17 10:00 Vent Rate NA 04/19/17 09:00 Inspired O2 28 04/25/17 10:00 Tidal Volume NA 04/19/17 09:00 PEEP NA 04/19/17 09:00 Pressure (ins/psv/peep) NA 04/19/17 09:00 Critical Value PING 04/25/17 10:00 Sodium 133 mEq/L (136-145) L 04/27/17 04:30 Potassium 4.4 mEq/L (3.5-5.1) 04/27/17 04:30 Chloride 104 mEq/L (98-107) 04/27/17 04:30 Carbon Dioxide 22.6 mEq/L (21.0-31.0) 04/27/17 04:30 Anion Gap 10.8 (7.0-16.0) 04/27/17 04:30 BUN 25 mg/dL (7-25) 04/27/17 04:30 Creatinine 1.8 mg/dL (0.7-1.3) H 04/27/17 04:30 Est GFR ( Amer) 50.3 ml/min (>90) 04/27/17 04:30 Est GFR (Non-Af Amer) 41.5 ml/min 04/27/17 04:30 BUN/Creatinine Ratio 13.9 04/27/17 04:30 Glucose 231 mg/dL (70-105) H 04/27/17 04:30 POC Glucose 315 MG/DL (70 - 105) H 04/27/17 11:32 Hemoglobin A1c % 6.7 % (4.0-6.0) H 04/22/17 05:04 Whole Bld Lactic Acid 1.30 mmol/L (0.60-1.99) 04/24/17 21:19 Uric Acid 3.6 mg/dL (4.4-7.6) L 04/20/17 07:00 Calcium 8.7 mg/dL (8.6-10.3) 04/27/17 04:30 Phosphorus 3.0 mg/dL (2.5-5.0) 04/27/17 04:30 Magnesium 2.0 mg/dL (1.9-2.7) 04/27/17 04:30 Total Bilirubin 0.5 mg/dL (0.3-1.0) 04/27/17 04:30 AST 19 U/L (13-39) 04/27/17 04:30 ALT 17 U/L (7-52) 04/27/17 04:30 Alkaline Phosphatase 65 U/L (34-104) 04/27/17 04:30 Creatine Kinase 136 U/L (30-223) 04/14/17 14:55 Troponin I 0.01 ng/mL (0.01-0.05) 04/22/17 05:04 C-Reactive Protein 28.9 mg/dL (0.0-0.9) H 04/20/17 07:00 B-Natriuretic Peptide 85.5 pg/mL (5.0-100.0) 04/14/17 14:55 Total Protein 7.2 gm/dL (6.0-8.3) 04/27/17 04:30 Albumin 2.5 gm/dL (4.2-5.5) L 04/27/17 04:30 Globulin 4.7 gm/dL 04/27/17 04:30 Albumin/Globulin Ratio 0.5 (1.0-1.8) L 04/27/17 04:30 Prealbumin 9 mg/dL (10-36) L 04/24/17 05:30 Triglycerides 252 mg/dL (<150) H 04/24/17 05:30 Cholesterol 78 mg/dL (<200) 04/27/17 04:30 LDL Cholesterol Direct 38 mg/dL (75-193) L 04/14/17 14:55 HDL Cholesterol 13 mg/dL (23-92) L 04/14/17 14:55 Amylase 31 U/L (29-103) 04/14/17 14:55 Lipase 15 U/L (11-82) 04/14/17 14:55 Urine Source SEN PORT 04/25/17 07:35 Urine Color YELLOW 04/25/17 07:35 Urine Clarity CLEAR (CLEAR) 04/25/17 07:35 Urine pH 5.5 04/25/17 07:35 Ur Specific [place] 1.015 (1.005-1.030) 04/25/17 07:35 Urine Protein TRACE mg/dL (NEGATIVE) 04/25/17 07:35 Urine Glucose (UA) NEGATIVE mg/dL (NEGATIVE) 04/25/17 07:35 Urine Ketones NEGATIVE mg/dL (NEGATIVE) 04/25/17 07:35 Urine Blood SMALL (NEGATIVE) H 04/25/17 07:35 Urine Nitrate NEGATIVE (NEGATIVE) 04/25/17 07:35 Urine Bilirubin NEGATIVE (NEGATIVE) 04/25/17 07:35 Urine Urobilinogen 0.2 E.U./dL (0.2 - 1.0) 04/25/17 07:35 Ur Leukocyte Esterase NEGATIVE (NEGATIVE) 04/25/17 07:35 Urine RBC 0-2 /hpf (0-5) H 04/25/17 07:35 Urine WBC 0-2 /hpf (0-5) 04/25/17 07:35 Ur Epithelial Cells OCCASIONAL /lpf (FEW) 04/25/17 07:35 Amorphous Sediment MANY URATES (NONE SEEN) 04/14/17 15:05 Urine Bacteria FEW /hpf (NONE SEEN) 04/25/17 07:35 Vancomycin Trough 13.5 ug/mL (10-20) 04/19/17 19:20 Blood Type O POSITIVE 04/14/17 20:36 Antibody Screen NEGATIVE 04/14/17 20:36 - Physical Exam Vitals and I&O: Vital Signs Temp 98 F 04/27/17 10:00 Pulse 108 04/27/17 10:30 Resp 22 04/27/17 10:00 BP 116/70 04/27/17 10:30 Pulse Ox 99 04/27/17 10:00 Intake & Output 04/26/17 04/27/17 04/27/17 18:59 06:59 18:59 Intake Total 4768.000 1260 300 Output Total 2355 2260 Balance 2413.000 -1000 300 Weight (lbs) 94.092 kg 103.873 kg Intake: Intake, IV Amount 3398.000 300 D5-0.45NS 1,000 ml @ 40 740.667 mls/hr IV .Q24H [facility] Rx#: [id number] Diltiazem 125 mg In 250 Dextrose 5% 100 ml @ 10 MG/HR 10 mls/hr IV TITR [facility] Rx#:[id number] Linezolid 600mg/300mL 600 300 300 mg In 300 ml @ 300 mls/ hr IV Q12HR [facility] Rx#: [id number] Meropenem 1 gm In Sodium 100 Chloride 0.9% 100 ml @ 100 mls/hr IV Q12H [facility] Rx #:[id number] Multivitamin Inj 10 ml In 2006.333 Dextrose 70% 1,740 ml In Amino Acids 10% 500 ml In Intralipids 20% 150 ml @ 100 mls/hr IV .Q24H [facility] Rx#:[id number] Oral 60 TPN/PPN 1170 1200 Other 200 Output: Gastric Drainage 650 100 Drainage 5 80 Left Lower Abdomen 50 Right Lower Abdomen 5 30 Urine 1700 1650 Stool 30 Other 400 Other: Stool Characteristics Liquid Liquid Liquid Brown Green Active Medications: Current Medications Acetaminophen (Tylenol) 650 mg PO Q6H PRN PRN Reason: FEVER/PAIN Stop: 06/21/17 17:45 Last Admin: 04/27/17 06:15 Dose: 650 mg Albuterol/Ipratropium (Duoneb Neb) 3 ml HHN Q4HRT [facility] Stop: 06/15/17 14:59 Last Admin: 04/27/17 11:49 Dose: 3 ml Amiodarone HCl (Cordarone) 200 mg NG BID [facility] Stop: 06/24/17 23:14 Last Admin: 04/27/17 08:07 Dose: 200 mg Budesonide (Pulmicort) 0.5 mg HHN BIDRT [facility] Stop: 06/15/17 18:59 Last Admin: 04/27/17 07:45 Dose: 0.5 mg Famotidine (Pepcid) 20 mg IVP Q12H [facility] Stop: 06/24/17 09:14 Last Admin: 04/27/17 08:32 Dose: 20 mg Multivitamins/Minerals 10 ml/Dextrose/ Amino Acids/Electrolytes/ Fat Emulsion Intravenous 2,400 mls @ 100 mls/hr IV .Q24H [facility] Stop: 06/23/17 15:59 Last Admin: 04/26/17 16:03 Dose: 100 mls/hr Dextrose/Sodium Chloride (D5-0.45ns) 1,000 mls @ 40 mls/hr IV .Q24H [facility] Stop: 06/23/17 15:59 Last Admin: 04/26/17 16:03 Dose: 40 mls/hr Linezolid (Zyvox) 600 mg in 300 mls @ 300 mls/hr IV Q12HR [facility] Stop: 06/23/17 22:59 Last Admin: 04/27/17 08:31 Dose: 300 mls/hr Fluconazole (Diflucan) 200 mg in 100 mls @ 100 mls/hr IV Q24HR [facility] Stop: 06/23/17 22:59 Last Admin: 04/26/17 23:14 Dose: 100 mls/hr Meropenem 1 gm/ Sodium (Chloride) 100 mls @ 100 mls/hr IV Q12H [facility] Stop: 06/24/17 00:00 Last Infusion: 04/26/17 11:40 Dose: Infused Diltiazem HCl 125 mg/ Dextrose 125 mls @ 10 mls/hr IV TITR [facility]; 10 MG/HR PRN Reason: Protocol Stop: 06/24/17 12:41 Last Admin: 04/26/17 19:45 Dose: 15 mg/hr, 15 mls/hr Insulin Aspart (Novolog Insulin Sliding Scale) 0 units SUBQ Q6HR [facility] PRN Reason: Protocol Stop: 06/16/17 17:59 Last Admin: 04/27/17 06:44 Dose: 4 units Lorazepam (Ativan) 1 mg IVP Q4HR PRN; Protocol PRN Reason: Agitation Stop: 06/25/17 10:40 Last Admin: 04/27/17 02:56 Dose: 1 mg Metoprolol Tartrate (Lopressor) 25 mg PO BID [facility] Stop: 06/26/17 08:59 Last Admin: 04/27/17 08:19 Dose: 25 mg Miscellaneous (Probiotic Screen) 1 [facility] PRN PRN PRN Reason: PROTOCOL Stop: 06/14/17 09:39 Miscellaneous (Clinical Monitoring) 1 [facility] DAILY PRN PRN Reason: RENAL Stop: 06/15/17 12:48 Miscellaneous (Tpn Per Pharmacy) 1 [facility] PRN PRN PRN Reason: PROTOCOL Stop: 06/16/17 12:28 Morphine Sulfate (Morphine) 4 mg IVP Q2HR PRN PRN Reason: Pain (Moderate) Stop: 06/15/17 10:53 Last Admin: 04/27/17 06:14 Dose: 4 mg Ondansetron HCl (Zofran) 4 mg IVP Q6H PRN PRN Reason: Nausea / Vomiting Stop: 06/13/17 20:08 Last Admin: 04/25/17 21:06 Dose: 4 mg General: Mild distress, Other (confused) HEENT: Atraumatic, PERRLA, EOMI, Mucous membr. moist/pink Neck: Supple, +2 carotid pulse wo bruit Cardiovascular: Regular rate, Normal S1, Normal S2 Lungs: Other (diffuse rhonchi.) Abdomen: Soft, Distended, Other ( wound VAC anterior abdominal wall wound. L colostomy+) Extremities: Other (no edema and cyanosis.) Neurological: Reflexes 2+, Other (patient is confused and agitated.) Psych/Mental Status: Other (gets agitated at times.) - Procedures Procedures: Procedures Procedure Code Date BYPASS SIGMOID COLON TO CUTANEOUS, OPEN APPROACH [id number] 04/14/17 PARTIAL REMOVAL OF COLON 02432 04/14/17 RESECTION OF SIGMOID COLON, OPEN APPROACH [id number] 04/14/17 RESPIRATORY VENTILATION, 24-96 CONSECUTIVE HOURS [id number] 04/14/17 VENT MGMT INPAT INIT DAY 72833 04/14/17 Assessment/Plan - Problem List Patient Problems: All Active Problems Abscess of sigmoid colon due to diverticulitis (Acute) K57.20 Diverticulitis of sigmoid colon (Acute) K57.32 Obesity (Acute) E66.9 Perforation of sigmoid colon due to diverticulitis (Acute) K57.20 Peritonitis (acute) generalized (Acute) K65.0 - Assessment Assessment: POD#13; s/p ex lap, sigmoid colectomy, drainage of peritonitis, lysis adhesions , ROLANDO drain placement 04/14 icu status confused, obtunded, mumbling words continue IVfluids +TPN tachycardia, fever intermittently, mild leukocytosis WBC 11 ROLANDO drain minimal output, murky colored light brown color. renal insufficiency. dvt prophylaxis Lovenox SQ colostomy end necrosed and sloughed, severely retracted, but functional..... poor candidate for revision of colostomy CT results noted 04/25 infected abd wound, laura removed, and wound opened and packed, wound vac applied, change q 3 days. continue iv abx. sen cath stricts ins and out supportive care.... s/w family; guarded prognosis. Nutritional Asmnt/Malnutr-PDOC - Dietary Evaluation Malnutrition Findings (Please click <Entered> for more info): Nutritional Asmnt/Malnutrition Start: 04/19/17 14: 21 Text: Status: Complete Freq: Document 04/19/17 14:21 GSUN (Rec: 04/19/17 14:58 [id number]) Nutritional Asmnt/Malnutrition Patient General Information Nutritional Screening Moderate Risk Screening Diagnosis Sepsis, diverticulitis, peritonitis Pertinent Medical Hx/Surgical Hx Asthma, diverticulosis Subjective Information 56 year old male frome home. Pt was restless, moving extremities during visit. 04/14 : sigmoid colectomy, end colostomy, abscess drainage, diffuse peritontis. 04/16: pt started PPN. 04/17: central line and started on TPN. Spoke to family at bedside, explained parenteral nutrition , family undersoto and has no further question at this time. Weight discrepancies noted in EMR, family does not know UBW , estimated nutritional needs based Current Diet Order/ Nutrition Support TPN D10% AA4.25% at 90ml/hr with IL20% 150ml, providing 1401.6kcal Pertinent Medications Dilaudid, Novolog, Culturelle, Magnesium Sulfate, Vancomycin , TPN, Morphine, Multivitamins , Zofran, Protonix, Nacl0.9% Pertinent Labs 04/14: triglycerides 106, total bilirubin 1.1H, glucose 116H 04/17: magnesium 2.5, phsophorus 3.2 04/19: magnesium 1.8L, phosphorus 2.4L, BUN 28H, creatinine 1.3, glucose 154H, total bilirubin 1.1H, triglycerides 238H Nutritional Hx/Data Height 1.7 m Height (Calculated Centimeters) 170.2 Current Weight (lbs) 95.254 kg Weight (Calculated Kilograms) 95.3 Weight (Calculated Grams) 63524.4 [place] Body Weight 148 Weight Status Overweight GI Symptoms Skin Integrity/Comment: [place] 14. Facial non-pitting 1+, bilateral hands pitting 1+ Estimated Nutritional Goals Calories/Kcals/Kg IBW 148/67.3kg Kcals Calculated 2019-2356kcal (30-35kcal/kg) Protein Calculated 101-135g (1.5-2g/kg) Fluid: ml Per MD Nutritional Problem 1. Problem Problem Altered GI function related to Etiology abscess and perforation of sigmoid colon due to diverticulitis aeb Signs/Symptoms: post-operative, on TPN Intervention/Recommendation Comments 1. Recommend TPN D15% AA5.5% at 100ml/hr with IL20% 150ml, providing 2400ml total volume, 2052kcal, 132g protein, meeting 100% of estimated nutritional needs. Carb load 2 .6mg/kg/min (using 210lb adm weight). 2. Monitor for possible refeeding syndrome, 04/18: phsophorus 2.1L, 04/19: magnesium 1.9. 3. Monitor triglycerides, total bilirubin, glucose, renal labs. Expected Outcomes/Goals Expected Outcomes/Goals 1. Pt to meet 100% of estimated nutritional needs on TPN.
[2017-04-27] MEDS: Meropenem 1 GM in Sodium Chloride 0.9% 100 ML IV SCH (12:06)
--- NOTE | 2017-04-27 12:21 | Infectious Disease Prog Note ---
Infectious Disease Subjective - Review of Systems Service Date: 04/27/17 Subjective: Still febrile. Low grade fevers. had developed chills. Infectious Disease Objective - Results Result Diagrams: 04/27/17 04:30 04/27/17 04:30 Recent Labs: Laboratory Last Values WBC 11.8 Th/cmm (4.8-10.8) H 04/27/17 04:30 RBC 3.13 Mil/cmm (4.30-5.70) L 04/27/17 04:30 Hgb 8.2 gm/dL (13.2-17.3) L 04/27/17 04:30 Hct 24.6 % (39.0-49.0) L 04/27/17 04:30 MCV 78.6 fl (80-99) L 04/27/17 04:30 MCH 26.1 pg (26.0-30.0) 04/27/17 04:30 MCHC Differential 33.2 pg (28.0-36.0) 04/27/17 04:30 RDW 15.1 % (11.5-20.0) 04/27/17 04:30 Plt Count 652 Th/cmm (150-400) H 04/27/17 04:30 MPV 9.0 fl 04/27/17 04:30 Neutrophils % 81.6 % (40.0-80.0) H 04/27/17 04:30 Band Neutrophils % 3 % (0-10) 04/19/17 04:40 Lymphocytes % 10.6 % (20.0-50.0) L 04/27/17 04:30 Monocytes % 5.1 % (2.0-10.0) 04/27/17 04:30 Eosinophils % 2.3 % (0.0-5.0) 04/27/17 04:30 Basophils % 0.4 % (0.0-2.0) 04/27/17 04:30 Neutrophils (Manual) 79 % (40-80) 04/22/17 05:04 Lymphocytes 14 % (20-50) L 04/22/17 05:04 Monocytes 6 % (2-10) 04/22/17 05:04 Eosinophils 1 % (0-5) 04/19/17 04:40 Metamyelocytes 1 % (0-0) H 04/22/17 05:04 Platelet Estimate INCREASED PLATELETS (NORMAL) 04/22/17 05:04 Platelet Morphology NORMAL (NORMAL) 04/22/17 05:04 Anisocytosis 1+ 04/22/17 05:04 RBC Morph Micro Appear ABNORMAL (NORMAL) 04/22/17 05:04 ESR > 140 mm/hr (0-20) H 04/20/17 07:00 PT 11.9 SECONDS (9.5-11.5) H 04/24/17 21:19 INR 1.13 (0.5-1.4) 04/24/17 21:19 PTT (Actin FS) 27.6 SECONDS (26.0-38.0) 04/24/17 21:19 Specimen Source Arterial 04/25/17 10:00 Sample Site Left Radial 04/25/17 10:00 pH 7.48 (7.35-7.45) H 04/25/17 10:00 pCO2 32.0 mmHg (35.0-45.0) L 04/25/17 10:00 pO2 123.0 mmHg (80.0-100.0) H 04/25/17 10:00 HCO3 25.7 mEq/L (20.0-26.0) 04/25/17 10:00 Base Excess 0.9 mEq/L (-3.0-3.0) 04/25/17 10:00 O2 Saturation 99.0 % (92.0-100.0) 04/25/17 10:00 Chau Test Positive 04/25/17 10:00 Vent Rate NA 04/19/17 09:00 Inspired O2 28 04/25/17 10:00 Tidal Volume NA 04/19/17 09:00 PEEP NA 04/19/17 09:00 Pressure (ins/psv/peep) NA 04/19/17 09:00 Critical Value PING 04/25/17 10:00 Sodium 133 mEq/L (136-145) L 04/27/17 04:30 Potassium 4.4 mEq/L (3.5-5.1) 04/27/17 04:30 Chloride 104 mEq/L (98-107) 04/27/17 04:30 Carbon Dioxide 22.6 mEq/L (21.0-31.0) 04/27/17 04:30 Anion Gap 10.8 (7.0-16.0) 04/27/17 04:30 BUN 25 mg/dL (7-25) 04/27/17 04:30 Creatinine 1.8 mg/dL (0.7-1.3) H 04/27/17 04:30 Est GFR ( Amer) 50.3 ml/min (>90) 04/27/17 04:30 Est GFR (Non-Af Amer) 41.5 ml/min 04/27/17 04:30 BUN/Creatinine Ratio 13.9 04/27/17 04:30 Glucose 231 mg/dL (70-105) H 04/27/17 04:30 POC Glucose 315 MG/DL (70 - 105) H 04/27/17 11:32 Hemoglobin A1c % 6.7 % (4.0-6.0) H 04/22/17 05:04 Whole Bld Lactic Acid 1.30 mmol/L (0.60-1.99) 04/24/17 21:19 Uric Acid 3.6 mg/dL (4.4-7.6) L 04/20/17 07:00 Calcium 8.7 mg/dL (8.6-10.3) 04/27/17 04:30 Phosphorus 3.0 mg/dL (2.5-5.0) 04/27/17 04:30 Magnesium 2.0 mg/dL (1.9-2.7) 04/27/17 04:30 Total Bilirubin 0.5 mg/dL (0.3-1.0) 04/27/17 04:30 AST 19 U/L (13-39) 04/27/17 04:30 ALT 17 U/L (7-52) 04/27/17 04:30 Alkaline Phosphatase 65 U/L (34-104) 04/27/17 04:30 Creatine Kinase 136 U/L (30-223) 04/14/17 14:55 Troponin I 0.01 ng/mL (0.01-0.05) 04/22/17 05:04 C-Reactive Protein 28.9 mg/dL (0.0-0.9) H 04/20/17 07:00 B-Natriuretic Peptide 85.5 pg/mL (5.0-100.0) 04/14/17 14:55 Total Protein 7.2 gm/dL (6.0-8.3) 04/27/17 04:30 Albumin 2.5 gm/dL (4.2-5.5) L 04/27/17 04:30 Globulin 4.7 gm/dL 04/27/17 04:30 Albumin/Globulin Ratio 0.5 (1.0-1.8) L 04/27/17 04:30 Prealbumin 9 mg/dL (10-36) L 04/24/17 05:30 Triglycerides 252 mg/dL (<150) H 04/24/17 05:30 Cholesterol 78 mg/dL (<200) 04/27/17 04:30 LDL Cholesterol Direct 38 mg/dL (75-193) L 04/14/17 14:55 HDL Cholesterol 13 mg/dL (23-92) L 04/14/17 14:55 Amylase 31 U/L (29-103) 04/14/17 14:55 Lipase 15 U/L (11-82) 04/14/17 14:55 Urine Source [place] 04/25/17 07:35 Urine Color YELLOW 04/25/17 07:35 Urine Clarity CLEAR (CLEAR) 04/25/17 07:35 Urine pH 5.5 04/25/17 07:35 Ur Specific [place] 1.015 (1.005-1.030) 04/25/17 07:35 Urine Protein TRACE mg/dL (NEGATIVE) 04/25/17 07:35 Urine Glucose (UA) NEGATIVE mg/dL (NEGATIVE) 04/25/17 07:35 Urine Ketones NEGATIVE mg/dL (NEGATIVE) 04/25/17 07:35 Urine Blood SMALL (NEGATIVE) H 04/25/17 07:35 Urine Nitrate NEGATIVE (NEGATIVE) 04/25/17 07:35 Urine Bilirubin NEGATIVE (NEGATIVE) 04/25/17 07:35 Urine Urobilinogen 0.2 E.U./dL (0.2 - 1.0) 04/25/17 07:35 Ur Leukocyte Esterase NEGATIVE (NEGATIVE) 04/25/17 07:35 Urine RBC 0-2 /hpf (0-5) H 04/25/17 07:35 Urine WBC 0-2 /hpf (0-5) 04/25/17 07:35 Ur Epithelial Cells OCCASIONAL /lpf (FEW) 04/25/17 07:35 Amorphous Sediment MANY URATES (NONE SEEN) 04/14/17 15:05 Urine Bacteria FEW /hpf (NONE SEEN) 04/25/17 07:35 Vancomycin Trough 13.5 ug/mL (10-20) 04/19/17 19:20 Blood Type O POSITIVE 04/14/17 20:36 Antibody Screen NEGATIVE 04/14/17 20:36 - Physical Exam Vitals and I&O: Vital Signs Temp 98 F 04/27/17 10:00 Pulse 115 04/27/17 12:01 Resp 24 04/27/17 11:45 BP 119/65 04/27/17 12:01 Pulse Ox 98 04/27/17 11:45 Intake & Output 04/26/17 04/27/17 04/27/17 18:59 06:59 18:59 Intake Total 4768.000 1385 300 Output Total 2355 2260 Balance 2413.000 -875 300 Weight (lbs) 94.092 kg 103.873 kg Intake: Intake, IV Amount 3398.000 125 300 D5-0.45NS 1,000 ml @ 40 740.667 mls/hr IV .Q24H ARIAN Rx#: [id number] Diltiazem 125 mg In 250 125 Dextrose 5% 100 ml @ 10 MG/HR 10 mls/hr IV TITR ARIAN Rx#:[id number] Linezolid 600mg/300mL 600 300 300 mg In 300 ml @ 300 mls/ hr IV Q12HR ARIAN Rx#: [id number] Meropenem 1 gm In Sodium 100 Chloride 0.9% 100 ml @ 100 mls/hr IV Q12H [facility]AN Rx #:[id number] Multivitamin Inj 10 ml In 2006.333 Dextrose 70% 1,740 ml In Amino Acids 10% 500 ml In Intralipids 20% 150 ml @ 100 mls/hr IV .Q24H ARIAN Rx#:[id number] Oral 60 TPN/PPN 1170 1200 Other 200 Output: Gastric Drainage 650 100 Drainage 5 80 Left Lower Abdomen 50 Right Lower Abdomen 5 30 Urine 1700 1650 Stool 30 Other 400 Other: Stool Characteristics Liquid Liquid Liquid Brown Green Active Medications: Current Medications Acetaminophen (Tylenol) 650 mg PO Q6H PRN PRN Reason: FEVER/PAIN Stop: 06/21/17 17:45 Last Admin: 04/27/17 06:15 Dose: 650 mg Albuterol/Ipratropium (Duoneb Neb) 3 ml HHN Q4HRT [facility] Stop: 06/15/17 14:59 Last Admin: 04/27/17 11:49 Dose: 3 ml Amiodarone HCl (Cordarone) 200 mg NG BID ARIAN Stop: 06/24/17 23:14 Last Admin: 04/27/17 08:07 Dose: 200 mg Budesonide (Pulmicort) 0.5 mg HHN BIDRT [facility]AN Stop: 06/15/17 18:59 Last Admin: 04/27/17 07:45 Dose: 0.5 mg Famotidine (Pepcid) 20 mg IVP Q12H [facility]AN Stop: 06/24/17 09:14 Last Admin: 04/27/17 08:32 Dose: 20 mg Multivitamins/Minerals 10 ml/Dextrose/ Amino Acids/Electrolytes/ Fat Emulsion Intravenous 2,400 mls @ 100 mls/hr IV .Q24H [facility] Stop: 06/23/17 15:59 Last Admin: 04/26/17 16:03 Dose: 100 mls/hr Dextrose/Sodium Chloride (D5-0.45ns) 1,000 mls @ 40 mls/hr IV .Q24H [facility] Stop: 06/23/17 15:59 Last Admin: 04/26/17 16:03 Dose: 40 mls/hr Linezolid (Zyvox) 600 mg in 300 mls @ 300 mls/hr IV Q12HR [facility] Stop: 06/23/17 22:59 Last Admin: 04/27/17 08:31 Dose: 300 mls/hr Fluconazole (Diflucan) 200 mg in 100 mls @ 100 mls/hr IV Q24HR [facility] Stop: 06/23/17 22:59 Last Admin: 04/26/17 23:14 Dose: 100 mls/hr Meropenem 1 gm/ Sodium (Chloride) 100 mls @ 100 mls/hr IV Q12H [facility] Stop: 06/24/17 00:00 Last Infusion: 04/26/17 11:40 Dose: Infused Diltiazem HCl 125 mg/ Dextrose 125 mls @ 10 mls/hr IV TITR ARIAN; 10 MG/HR PRN Reason: Protocol Stop: 06/24/17 12:41 Last Admin: 04/27/17 12:01 Dose: 15 mg/hr, 15 mls/hr Insulin Aspart (Novolog Insulin Sliding Scale) 0 units SUBQ Q6HR [facility]AN PRN Reason: Protocol Stop: 06/16/17 17:59 Last Admin: 04/27/17 12:08 Dose: 8 units Lorazepam (Ativan) 1 mg IVP Q4HR PRN; Protocol PRN Reason: Agitation Stop: 06/25/17 10:40 Last Admin: 04/27/17 02:56 Dose: 1 mg Metoprolol Tartrate (Lopressor) 25 mg PO BID ARIAN Stop: 06/26/17 08:59 Last Admin: 04/27/17 08:19 Dose: 25 mg Miscellaneous (Probiotic Screen) 1 ea PRN PRN PRN Reason: PROTOCOL Stop: 06/14/17 09:39 Miscellaneous (Clinical Monitoring) 1 ea DAILY PRN PRN Reason: RENAL Stop: 06/15/17 12:48 Miscellaneous (Tpn Per Pharmacy) 1 [facility] PRN PRN PRN Reason: PROTOCOL Stop: 06/16/17 12:28 Morphine Sulfate (Morphine) 4 mg IVP Q2HR PRN PRN Reason: Pain (Moderate) Stop: 06/15/17 10:53 Last Admin: 04/27/17 06:14 Dose: 4 mg Ondansetron HCl (Zofran) 4 mg IVP Q6H PRN PRN Reason: Nausea / Vomiting Stop: 06/13/17 20:08 Last Admin: 04/25/17 21:06 Dose: 4 mg General: no acute distress, well developed, well nourished HEENT: atraumatic, normocephalic, EOMI Neck: supple, lines (Right IJ), no thyromegaly Cardiovascular: S1S2, regular Lungs: clear to auscultation bilaterally, clear to percussion Abdomen: soft, tender, drain, other (open surgical wound with wound vac.), no distended, no mass, no rebound Extremities: no cyanosis, no clubbing, no edema Neurological: awake Skin: other (open abdominal wound with wound vac.) - Procedures Procedures: Procedures Procedure Code Date BYPASS SIGMOID COLON TO CUTANEOUS, OPEN APPROACH [id number] 04/14/17 PARTIAL REMOVAL OF COLON 30460 04/14/17 RESECTION OF SIGMOID COLON, OPEN APPROACH [id number] 04/14/17 RESPIRATORY VENTILATION, 24-96 CONSECUTIVE HOURS [id number] 04/14/17 [facility] INTWIN INIT DAY 64378 04/14/17 Infectious Disease Assmt/Plan - Problem List Patient Problems: All Active Problems Abscess of sigmoid colon due to diverticulitis (Acute) K57.20 Diverticulitis of sigmoid colon (Acute) K57.32 Obesity (Acute) E66.9 Perforation of sigmoid colon due to diverticulitis (Acute) K57.20 Peritonitis (acute) generalized (Acute) K65.0 - Assessment Assessment: 1. Sepsis. febrile. 2. Diverticulitis, sigmoid diverticula to with support complicated by multiple abscesses and peritonitis. 3. Post operatively, on ventilator. 4. Peritonitis. Likely polymicrobial. 5. History of asthma. 6. History of arthritis. 7. Distended abdomen likely post operative ileus. Rule out small bowel obstruction. 8. SEKOU. 9. Post op, paralytic ileus. improved. 10. Wrist cellulitis, worse on left with destruction of bones. X ray of the left wrist suggested osteomyelitis. Plan: Change antibiotics to Zyvox iv, merrem and diflucan. Sepsis workup was performed and follow the sepsis workup. blood cs stat. Nutritional Asmnt/Malnutr-PDOC - Dietary Evaluation Malnutrition Findings (Please click <Entered> for more info): Nutritional Asmnt/Malnutrition Start: 04/19/17 14: 21 Text: Status: Complete Freq: Document 04/19/17 14:21 GSUN (Rec: 04/19/17 14:58 [id number]) Nutritional Asmnt/Malnutrition Patient General Information Nutritional Screening Moderate Risk Screening Diagnosis Sepsis, diverticulitis, peritonitis Pertinent Medical Hx/Surgical Hx Asthma, diverticulosis Subjective Information 56 year old male frome home. Pt was restless, moving extremities during visit. 04/14 : sigmoid colectomy, end colostomy, abscess drainage, diffuse peritontis. 04/16: pt started PPN. 04/17: central line and started on TPN. Spoke to family at bedside, explained parenteral nutrition , family undersoto and has no further question at this time. Weight discrepancies noted in EMR, family does not know UBW , estimated nutritional needs based Current Diet Order/ Nutrition Support TPN D10% AA4.25% at 90ml/hr with IL20% 150ml, providing 1401.6kcal Pertinent Medications Dilaudid, Novolog, Culturelle, Magnesium Sulfate, Vancomycin , TPN, Morphine, Multivitamins , Zofran, Protonix, Nacl0.9% Pertinent Labs 04/14: triglycerides 106, total bilirubin 1.1H, glucose 116H 04/17: magnesium 2.5, phsophorus 3.2 04/19: magnesium 1.8L, phosphorus 2.4L, BUN 28H, creatinine 1.3, glucose 154H, total bilirubin 1.1H, triglycerides 238H Nutritional Hx/Data Height 1.7 m Height (Calculated Centimeters) 170.2 Current Weight (lbs) 95.254 kg Weight (Calculated Kilograms) 95.3 Weight (Calculated Grams) 20416.4 [place] Body Weight 148 Weight Status Overweight GI Symptoms Skin Integrity/Comment: [place] 14. Facial non-pitting 1+, bilateral hands pitting 1+ Estimated Nutritional Goals Calories/Kcals/Kg IBW 148/67.3kg Kcals Calculated 2019-2356kcal (30-35kcal/kg) Protein Calculated 101-135g (1.5-2g/kg) Fluid: ml Per MD Nutritional Problem 1. Problem Problem Altered GI function related to Etiology abscess and perforation of sigmoid colon due to diverticulitis aeb Signs/Symptoms: post-operative, on TPN Intervention/Recommendation Comments 1. Recommend TPN D15% AA5.5% at 100ml/hr with IL20% 150ml, providing 2400ml total volume, 2052kcal, 132g protein, meeting 100% of estimated nutritional needs. Carb load 2 .6mg/kg/min (using 210lb adm weight). 2. Monitor for possible refeeding syndrome, 04/18: phsophorus 2.1L, 04/19: magnesium 1.9. 3. Monitor triglycerides, total bilirubin, glucose, renal labs. Expected Outcomes/Goals Expected Outcomes/Goals 1. Pt to meet 100% of estimated nutritional needs on TPN.
[2017-04-27] MEDS: D5-0.45NS 1,000 ML IV SCH (16:25)
[2017-04-27] MEDS: TPN 10%-70% CUSTOM IV SCH (16:26)
--- NOTE | 2017-04-27 18:18 | General Progress Note ---
Subjective - Review of Systems Subjective: Patient is seen and examined. Patient is MICU bed and 10. Patient's family at bedside. Patient's he is more alert and trying to follow commands. Discussed with nursing staff no bowel sounds on exam, and CT scan of the abdomen and pelvis has no evidence of any obstruction. The patient's has no pain on his left wrist, no chest pain, no increasing shortness of breath, no fever no chills. Objective - Results Result Diagrams: 04/27/17 04:30 04/27/17 04:30 Recent Labs: Laboratory Last Values WBC 11.8 Th/cmm (4.8-10.8) H 04/27/17 04:30 RBC 3.13 Mil/cmm (4.30-5.70) L 04/27/17 04:30 Hgb 8.2 gm/dL (13.2-17.3) L 04/27/17 04:30 Hct 24.6 % (39.0-49.0) L 04/27/17 04:30 MCV 78.6 fl (80-99) L 04/27/17 04:30 MCH 26.1 pg (26.0-30.0) 04/27/17 04:30 MCHC Differential 33.2 pg (28.0-36.0) 04/27/17 04:30 RDW 15.1 % (11.5-20.0) 04/27/17 04:30 Plt Count 652 Th/cmm (150-400) H 04/27/17 04:30 MPV 9.0 fl 04/27/17 04:30 Neutrophils % 81.6 % (40.0-80.0) H 04/27/17 04:30 Band Neutrophils % 3 % (0-10) 04/19/17 04:40 Lymphocytes % 10.6 % (20.0-50.0) L 04/27/17 04:30 Monocytes % 5.1 % (2.0-10.0) 04/27/17 04:30 Eosinophils % 2.3 % (0.0-5.0) 04/27/17 04:30 Basophils % 0.4 % (0.0-2.0) 04/27/17 04:30 Neutrophils (Manual) 79 % (40-80) 04/22/17 05:04 Lymphocytes 14 % (20-50) L 04/22/17 05:04 Monocytes 6 % (2-10) 04/22/17 05:04 Eosinophils 1 % (0-5) 04/19/17 04:40 Metamyelocytes 1 % (0-0) H 04/22/17 05:04 Platelet Estimate INCREASED PLATELETS (NORMAL) 04/22/17 05:04 Platelet Morphology NORMAL (NORMAL) 04/22/17 05:04 Anisocytosis 1+ 04/22/17 05:04 RBC Morph Micro Appear ABNORMAL (NORMAL) 04/22/17 05:04 ESR > 140 mm/hr (0-20) H 04/20/17 07:00 PT 11.9 SECONDS (9.5-11.5) H 04/24/17 21:19 INR 1.13 (0.5-1.4) 04/24/17 21:19 PTT (Actin FS) 27.6 SECONDS (26.0-38.0) 04/24/17 21:19 Specimen Source Arterial 04/25/17 10:00 Sample Site Left Radial 04/25/17 10:00 pH 7.48 (7.35-7.45) H 04/25/17 10:00 pCO2 32.0 mmHg (35.0-45.0) L 04/25/17 10:00 pO2 123.0 mmHg (80.0-100.0) H 04/25/17 10:00 HCO3 25.7 mEq/L (20.0-26.0) 04/25/17 10:00 Base Excess 0.9 mEq/L (-3.0-3.0) 04/25/17 10:00 O2 Saturation 99.0 % (92.0-100.0) 04/25/17 10:00 Chau Test Positive 04/25/17 10:00 Vent Rate NA 04/19/17 09:00 Inspired O2 28 04/25/17 10:00 Tidal Volume NA 04/19/17 09:00 PEEP NA 04/19/17 09:00 Pressure (ins/psv/peep) NA 04/19/17 09:00 Critical Value PING 04/25/17 10:00 Sodium 133 mEq/L (136-145) L 04/27/17 04:30 Potassium 4.4 mEq/L (3.5-5.1) 04/27/17 04:30 Chloride 104 mEq/L (98-107) 04/27/17 04:30 Carbon Dioxide 22.6 mEq/L (21.0-31.0) 04/27/17 04:30 Anion Gap 10.8 (7.0-16.0) 04/27/17 04:30 BUN 25 mg/dL (7-25) 04/27/17 04:30 Creatinine 1.8 mg/dL (0.7-1.3) H 04/27/17 04:30 Est GFR ( Amer) 50.3 ml/min (>90) 04/27/17 04:30 Est GFR (Non-Af Amer) 41.5 ml/min 04/27/17 04:30 BUN/Creatinine Ratio 13.9 04/27/17 04:30 Glucose 231 mg/dL (70-105) H 04/27/17 04:30 POC Glucose 203 MG/DL (70 - 105) H 04/27/17 16:36 Hemoglobin A1c % 6.7 % (4.0-6.0) H 04/22/17 05:04 Whole Bld Lactic Acid 1.30 mmol/L (0.60-1.99) 04/24/17 21:19 Uric Acid 3.6 mg/dL (4.4-7.6) L 04/20/17 07:00 Calcium 8.7 mg/dL (8.6-10.3) 04/27/17 04:30 Phosphorus 3.0 mg/dL (2.5-5.0) 04/27/17 04:30 Magnesium 2.0 mg/dL (1.9-2.7) 04/27/17 04:30 Total Bilirubin 0.5 mg/dL (0.3-1.0) 04/27/17 04:30 AST 19 U/L (13-39) 04/27/17 04:30 ALT 17 U/L (7-52) 04/27/17 04:30 Alkaline Phosphatase 65 U/L (34-104) 04/27/17 04:30 Creatine Kinase 136 U/L (30-223) 04/14/17 14:55 Troponin I 0.01 ng/mL (0.01-0.05) 04/22/17 05:04 C-Reactive Protein 28.9 mg/dL (0.0-0.9) H 04/20/17 07:00 B-Natriuretic Peptide 85.5 pg/mL (5.0-100.0) 04/14/17 14:55 Total Protein 7.2 gm/dL (6.0-8.3) 04/27/17 04:30 Albumin 2.5 gm/dL (4.2-5.5) L 04/27/17 04:30 Globulin 4.7 gm/dL 04/27/17 04:30 Albumin/Globulin Ratio 0.5 (1.0-1.8) L 04/27/17 04:30 Prealbumin 9 mg/dL (10-36) L 04/24/17 05:30 Triglycerides 252 mg/dL (<150) H 04/24/17 05:30 Cholesterol 78 mg/dL (<200) 04/27/17 04:30 LDL Cholesterol Direct 38 mg/dL (75-193) L 04/14/17 14:55 HDL Cholesterol 13 mg/dL (23-92) L 04/14/17 14:55 Amylase 31 U/L (29-103) 04/14/17 14:55 Lipase 15 U/L (11-82) 04/14/17 14:55 Urine Source [place] 04/25/17 07:35 Urine Color YELLOW 04/25/17 07:35 Urine Clarity CLEAR (CLEAR) 04/25/17 07:35 Urine pH 5.5 04/25/17 07:35 Ur Specific [place] 1.015 (1.005-1.030) 04/25/17 07:35 Urine Protein TRACE mg/dL (NEGATIVE) 04/25/17 07:35 Urine Glucose (UA) NEGATIVE mg/dL (NEGATIVE) 04/25/17 07:35 Urine Ketones NEGATIVE mg/dL (NEGATIVE) 04/25/17 07:35 Urine Blood SMALL (NEGATIVE) H 04/25/17 07:35 Urine Nitrate NEGATIVE (NEGATIVE) 04/25/17 07:35 Urine Bilirubin NEGATIVE (NEGATIVE) 04/25/17 07:35 Urine Urobilinogen 0.2 E.U./dL (0.2 - 1.0) 04/25/17 07:35 Ur Leukocyte Esterase NEGATIVE (NEGATIVE) 04/25/17 07:35 Urine RBC 0-2 /hpf (0-5) H 04/25/17 07:35 Urine WBC 0-2 /hpf (0-5) 04/25/17 07:35 Ur Epithelial Cells OCCASIONAL /lpf (FEW) 04/25/17 07:35 Amorphous Sediment MANY URATES (NONE SEEN) 04/14/17 15:05 Urine Bacteria FEW /hpf (NONE SEEN) 04/25/17 07:35 Vancomycin Trough 13.5 ug/mL (10-20) 04/19/17 19:20 Blood Type O POSITIVE 04/14/17 20:36 Antibody Screen NEGATIVE 04/14/17 20:36 - Physical Exam Vitals and I&O: Vital Signs Temp 98 F 04/27/17 10:00 Pulse 132 04/27/17 16:39 Resp 36 04/27/17 16:17 BP 115/64 04/27/17 16:38 Pulse Ox 100 04/27/17 16:17 Intake & Output 04/26/17 04/27/17 04/27/17 18:59 06:59 18:59 Intake Total 4768.000 1385 3674.667 Output Total 2355 2260 Balance 2413.000 -875 3674.667 Weight (lbs) 94.092 kg 103.873 kg Intake: Intake, IV Amount 3398.090 920 5987.667 D5-0.45NS 1,000 ml @ 40 740.667 974.667 mls/hr IV .Q24H ARIAN Rx#: [id number] Diltiazem 125 mg In 250 125 Dextrose 5% 100 ml @ 10 MG/HR 10 mls/hr IV TITR ARIAN Rx#:[id number] Linezolid 600mg/300mL 600 300 300 mg In 300 ml @ 300 mls/ hr IV Q12HR ARIAN Rx#: [id number] Meropenem 1 gm In Sodium 100 Chloride 0.9% 100 ml @ 100 mls/hr IV Q12H [facility]AN Rx #:[id number] Multivitamin Inj 10 ml In 2006.333 2400 Dextrose 70% 1,740 ml In Amino Acids 10% 500 ml In Intralipids 20% 150 ml @ 100 mls/hr IV .Q24H ARIAN Rx#:[id number] Oral 60 TPN/PPN 1170 1200 Other 200 Output: Gastric Drainage 650 100 Drainage 5 80 Left Lower Abdomen 50 Right Lower Abdomen 5 30 Urine 1700 1650 Stool 30 Other 400 Other: Stool Characteristics Liquid Liquid Liquid [place] Green Active Medications: Current Medications Acetaminophen (Tylenol) 650 mg PO Q6H PRN PRN Reason: FEVER/PAIN Stop: 06/21/17 17:45 Last Admin: 04/27/17 16:06 Dose: 650 mg Albuterol/Ipratropium (Duoneb Neb) 3 ml HHN Q4HRT [facility] Stop: 06/15/17 14:59 Last Admin: 04/27/17 16:17 Dose: Not Given Amiodarone HCl (Cordarone) 200 mg NG BID [facility] Stop: 06/24/17 23:14 Last Admin: 04/27/17 16:39 Dose: 200 mg Budesonide (Pulmicort) 0.5 mg HHN BIDRT [facility] Stop: 06/15/17 18:59 Last Admin: 04/27/17 07:45 Dose: 0.5 mg Famotidine (Pepcid) 20 mg IVP Q12H [facility] Stop: 06/24/17 09:14 Last Admin: 04/27/17 08:32 Dose: 20 mg Multivitamins/Minerals 10 ml/Dextrose/ Amino Acids/Electrolytes/ Fat Emulsion Intravenous 2,400 mls @ 100 mls/hr IV .Q24H [facility]AN Stop: 06/23/17 15:59 Last Admin: 04/27/17 16:26 Dose: 100 mls/hr Dextrose/Sodium Chloride (D5-0.45ns) 1,000 mls @ 40 mls/hr IV .Q24H [facility]AN Stop: 06/23/17 15:59 Last Admin: 04/27/17 16:25 Dose: 40 mls/hr Linezolid (Zyvox) 600 mg in 300 mls @ 300 mls/hr IV Q12HR [facility] Stop: 06/23/17 22:59 Last Admin: 04/27/17 08:31 Dose: 300 mls/hr Fluconazole (Diflucan) 200 mg in 100 mls @ 100 mls/hr IV Q24HR [facility] Stop: 06/23/17 22:59 Last Admin: 04/26/17 23:14 Dose: 100 mls/hr Diltiazem HCl 125 mg/ Dextrose 125 mls @ 10 mls/hr IV TITR ARIAN; 10 MG/HR PRN Reason: Protocol Stop: 06/24/17 12:41 Last Admin: 04/27/17 12:01 Dose: 15 mg/hr, 15 mls/hr Meropenem 1 gm/ Sodium (Chloride) 100 mls @ 100 mls/hr IV Q12HR [facility] Stop: 06/26/17 11:59 Last Admin: 04/27/17 12:34 Dose: 100 mls/hr Insulin Aspart (Novolog Insulin Sliding Scale) 0 units SUBQ Q6HR [facility] PRN Reason: Protocol Stop: 06/16/17 17:59 Last Admin: 04/27/17 18:06 Dose: 4 units Lorazepam (Ativan) 1 mg IVP Q4HR PRN; Protocol PRN Reason: Agitation Stop: 06/25/17 10:40 Last Admin: 04/27/17 02:56 Dose: 1 mg Metoprolol Tartrate (Lopressor) 25 mg PO BID [facility] Stop: 06/26/17 08:59 Last Admin: 04/27/17 16:38 Dose: 25 mg Miscellaneous (Probiotic Screen) 1 [facility] PRN PRN PRN Reason: PROTOCOL Stop: 06/14/17 09:39 Miscellaneous (Clinical Monitoring) 1 [facility] DAILY PRN PRN Reason: RENAL Stop: 06/15/17 12:48 Miscellaneous (Tpn Per Pharmacy) 1 [facility] PRN PRN PRN Reason: PROTOCOL Stop: 06/16/17 12:28 Morphine Sulfate (Morphine) 4 mg IVP Q2HR PRN PRN Reason: Pain (Moderate) Stop: 06/15/17 10:53 Last Admin: 04/27/17 06:14 Dose: 4 mg Ondansetron HCl (Zofran) 4 mg IVP Q6H PRN PRN Reason: Nausea / Vomiting Stop: 06/13/17 20:08 Last Admin: 04/25/17 21:06 Dose: 4 mg General: Mild distress, Other (confused) HEENT: Atraumatic, PERRLA, EOMI, Mucous membr. moist/pink Neck: Supple, +2 carotid pulse wo bruit Cardiovascular: Regular rate, Normal S1, Normal S2 Lungs: Other (diffuse rhonchi.) Abdomen: Soft, Distended, Other ( wound VAC anterior abdominal wall wound. L colostomy+) Extremities: Other (no edema and cyanosis.) Neurological: Reflexes 2+, Other (patient is confused and agitated.) Psych/Mental Status: Other (gets agitated at times.) - Procedures Procedures: Procedures Procedure Code Date BYPASS SIGMOID COLON TO CUTANEOUS, OPEN APPROACH [id number] 04/14/17 PARTIAL REMOVAL OF COLON 95967 04/14/17 RESECTION OF SIGMOID COLON, OPEN APPROACH [id number] 04/14/17 RESPIRATORY VENTILATION, 24-96 CONSECUTIVE HOURS [id number] 04/14/[place] [address] 04/14/17 Assessment/Plan - Problem List Patient Problems: All Active Problems Abscess of sigmoid colon due to diverticulitis (Acute) K57.20 Diverticulitis of sigmoid colon (Acute) K57.32 Obesity (Acute) E66.9 Perforation of sigmoid colon due to diverticulitis (Acute) K57.20 Peritonitis (acute) generalized (Acute) K65.0 - Assessment Assessment: Current Active Problems Problem Status Onset Abscess of sigmoid colon due to diverticulitis Acute Diverticulitis of sigmoid colon Acute Obesity Acute Perforation of sigmoid colon due to diverticulitis Acute Peritonitis (acute) generalized Acute Perforated sigmoid diverticulitis status post exploratory laparotomy and sigmoid colectomy intra-abdominal abscess drainage lysis of adhesion and Ada procedure and colostomy. Postoperative respiratory failure off ventilator. Obesity. Polymicrobial peritonitis. Asthma. Electrolyte imbalance. SEKOU improving. Encephalopathy due to metabolic and infectious etio. Open surgical wound . Altered mental status secondary to metabolic and infectious encephalopathy. Postop anemia. - Plan Plan: Wound Vac as per surgery. IVF. Correct electrolytes. IV antibiotics as per ID. Rate control. Monitor strict I's and O's. Continue oxygen, HHN and when necessary BiPAP. Pulmonary follow-up. GI and DVT prophylaxis. Follow-up lab. Colostomy care. Post op follow up as per surgery. Guarded prognosis. Follow up on consultants recommendations. Symptoms management. Medication management. Overall prognosis is guarded. Care plan discussed with RN. Nutritional Asmnt/Malnutr-PDOC - Dietary Evaluation Malnutrition Findings (Please click <Entered> for more info): Nutritional Asmnt/Malnutrition Start: 04/19/17 14: 21 Text: Status: Complete Freq: Document 04/19/17 14:21 GSUN (Rec: 04/19/17 14:58 [id number]) Nutritional Asmnt/Malnutrition Patient General Information Nutritional Screening Moderate Risk Screening Diagnosis Sepsis, diverticulitis, peritonitis Pertinent Medical Hx/Surgical Hx Asthma, diverticulosis Subjective Information 56 year old male frome home. Pt was restless, moving extremities during visit. 04/14 : sigmoid colectomy, end colostomy, abscess drainage, diffuse peritontis. 04/16: pt started PPN. 04/17: central line and started on TPN. Spoke to family at bedside, explained parenteral nutrition , family undersoto and has no further question at this time. Weight discrepancies noted in EMR, family does not know UBW , estimated nutritional needs based Current Diet Order/ Nutrition Support TPN D10% AA4.25% at 90ml/hr with IL20% 150ml, providing 1401.6kcal Pertinent Medications Dilaudid, Novolog, Culturelle, Magnesium Sulfate, Vancomycin , TPN, Morphine, Multivitamins , Zofran, Protonix, Nacl0.9% Pertinent Labs 04/14: triglycerides 106, total bilirubin 1.1H, glucose 116H 04/17: magnesium 2.5, phsophorus 3.2 04/19: magnesium 1.8L, phosphorus 2.4L, BUN 28H, creatinine 1.3, glucose 154H, total bilirubin 1.1H, triglycerides 238H Nutritional Hx/Data Height 1.7 m Height (Calculated Centimeters) 170.2 Current Weight (lbs) 95.254 kg Weight (Calculated Kilograms) 95.3 Weight (Calculated Grams) 78445.4 [place] Body Weight 148 Weight Status Overweight GI Symptoms Skin Integrity/Comment: [place] 14. Facial non-pitting 1+, bilateral hands pitting 1+ Estimated Nutritional Goals Calories/Kcals/Kg IBW 148/67.3kg Kcals Calculated 2019-2356kcal (30-35kcal/kg) Protein Calculated 101-135g (1.5-2g/kg) Fluid: ml Per MD Nutritional Problem 1. Problem Problem Altered GI function related to Etiology abscess and perforation of sigmoid colon due to diverticulitis aeb Signs/Symptoms: post-operative, on TPN Intervention/Recommendation Comments 1. Recommend TPN D15% AA5.5% at 100ml/hr with IL20% 150ml, providing 2400ml total volume, 2052kcal, 132g protein, meeting 100% of estimated nutritional needs. Carb load 2 .6mg/kg/min (using 210lb adm weight). 2. Monitor for possible refeeding syndrome, 04/18: phsophorus 2.1L, 04/19: magnesium 1.9. 3. Monitor triglycerides, total bilirubin, glucose, renal labs. Expected Outcomes/Goals Expected Outcomes/Goals 1. Pt to meet 100% of estimated nutritional needs on TPN.
[2017-04-27] MEDS ORDERED: Diltiazem 5 mg/mL 25mL Vial IV ONE (22:28)
[2017-04-27] MEDS: Fluconazole 200mg/100mL 200 MG/100 ML BAG IV SCH (23:00)
[2017-04-28] MEDS: Albuterol/Ipratropium Neb 3 ML AERS HHN SCH ×6 (02:41→22:56)
[2017-04-28] MEDS: Morphine Sulfate 4 mg/mL 1mL Syr IVP PRN (03:30)
--- NOTE | 2017-04-28 04:44 | Progress Notes ---
DATE: 04/27/2017 PROBLEM LIST: Persistent respiratory failure predominantly secondary to poor ability to mobilize tracheobronchial secretions associated with severe obstructive sleep apnea syndrome. SYMPTOMS: The patient is awake, barely opens eyes, lot of secretory noise and snoring noise, but no respiratory distress. PHYSICAL EXAMINATION: VITAL SIGNS: Temperature is 97, respirations 20, saturation is 98 on 2 L per minute. NECK: Veins not visualized. CHEST: Shows occasional transmitted noise otherwise unremarkable. LABORATORY DATA: The patient's white count is 11.8, hemoglobin 8.2. Electrolytes: Creatinine is 1.8, BUN is 25. ASSESSMENT: The patient clinically status quo. Abdominal sepsis, ALOC, with significant obstructive sleep apnea syndrome. PLANS AND SUGGESTIONS: We will go ahead and continue current treatment. Care and plan discussed with [id number] and also RN and go from there. No new active plans. JOB# [id number]
[2017-04-28] MEDS: INSULIN ASPART SLIDING SCALE 100 UNITS/ML UNIT SUBQ SCH ×4 (06:00→18:21)
[2017-04-28 07:01] LABS: ANION GAP 11.9 (7.0-16.0); BUN/CREATININE RATIO 17.6; CALCIUM SERUM 8.6 mg/dL (8.6-10.3); CARBON DIOXIDE 22.2 mEq/L (21.0-31.0); CREATININE - SERUM 1.7 mg/dL (0.7-1.3); PHOSPHOROUS 4.4 mg/dL (2.5-5.0); POTASSIUM SERUM 4.1 mEq/L (3.5-5.1)
[2017-04-28] MEDS: Budesonide 0.5 Mg/2 mL Ud HHN SCH ×2 (07:15→19:41)
[2017-04-28 07:22] LABS: MEAN CELL VOLUME 77.9 fl (80-99); MEAN CORPUSCULAR HEMOGLOBIN 25.9 pg (26.0-30.0); MEAN CORPUSCULAR HGB CONC 33.2 pg (28.0-36.0); MEAN PLATELET VOLUME 8.9 fl; PLATELET COUNT 532 Th/cmm (150-400); RED BLOOD COUNT 2.88 Mil/cmm (4.30-5.70); RED CELL DISTRIBUTION WIDTH 14.9 % (11.5-20.0)
[2017-04-28 07:28] LABS: HEMATOCRIT 22.5 % (39.0-49.0); HEMOGLOBIN 7.5 gm/dL (13.2-17.3); WHITE BLOOD COUNT 12.6 Th/cmm (4.8-10.8)
[2017-04-28] MEDS: Linezolid 600mg/300mL 600 MG/300 ML BAG IV SCH ×2 (08:43→21:00)
[2017-04-28 09:22] LABS: ANISOCYTOSIS 1+; BAND NEUTROPHILE 3 % (0-10); EOSINOPHIL 6 % (0-5); MICROCYTOSIS 1+; NEUTROPHILS 73 % (40-80); PLATELET ESTIMATE INCREASED PLATELETS (NORMAL); TOTAL CELLS COUNTED 100
[2017-04-28 09:23] LABS: PLATELET MORPHOLOGY NORMAL (NORMAL)
--- NOTE | 2017-04-28 11:08 | General Progress Note ---
Subjective - Review of Systems Subjective: Patient is seen and examined. Patient is MICU bed and 10. The patient's family at bedside. Patient still has low-grade fever. Patient is more alert awake and answering questions appropriately. Laboratories are reviewed and noted to have hemoglobin of 7.5 g. patient is still tachycardic and required cardizem drip. Objective - Results Result Diagrams: 04/28/17 06:08 04/28/17 06:08 Recent Labs: Laboratory Last Values WBC 12.6 Th/cmm (4.8-10.8) H 04/28/17 06:08 RBC 2.88 Mil/cmm (4.30-5.70) L 04/28/17 06:08 Hgb 7.5 gm/dL (13.2-17.3) L* 04/28/17 06:08 Hct 22.5 % (39.0-49.0) L* 04/28/17 06:08 MCV 77.9 fl (80-99) L 04/28/17 06:08 MCH 25.9 pg (26.0-30.0) L 04/28/17 06:08 MCHC Differential 33.2 pg (28.0-36.0) 04/28/17 06:08 RDW 14.9 % (11.5-20.0) 04/28/17 06:08 Plt Count 532 Th/cmm (150-400) H 04/28/17 06:08 MPV 8.9 fl 04/28/17 06:08 Neutrophils % 81.6 % (40.0-80.0) H 04/27/17 04:30 Band Neutrophils % 3 % (0-10) 04/28/17 06:08 Lymphocytes % 10.6 % (20.0-50.0) L 04/27/17 04:30 Monocytes % 5.1 % (2.0-10.0) 04/27/17 04:30 Eosinophils % 2.3 % (0.0-5.0) 04/27/17 04:30 Basophils % 0.4 % (0.0-2.0) 04/27/17 04:30 Neutrophils (Manual) 73 % (40-80) 04/28/17 06:08 Lymphocytes 9 % (20-50) L 04/28/17 06:08 Monocytes 9 % (2-10) 04/28/17 06:08 Eosinophils 6 % (0-5) H 04/28/17 06:08 Metamyelocytes 1 % (0-0) H 04/22/17 05:04 Platelet Estimate INCREASED PLATELETS (NORMAL) 04/28/17 06:08 Platelet Morphology NORMAL (NORMAL) 04/28/17 06:08 Anisocytosis 1+ 04/28/17 06:08 Microcytosis 1+ 04/28/17 06:08 RBC Morph Micro Appear ABNORMAL (NORMAL) 04/28/17 06:08 ESR > 140 mm/hr (0-20) H 04/20/17 07:00 PT 11.9 SECONDS (9.5-11.5) H 04/24/17 21:19 INR 1.13 (0.5-1.4) 04/24/17 21:19 PTT (Actin FS) 27.6 SECONDS (26.0-38.0) 04/24/17 21:19 Specimen Source Arterial 04/25/17 10:00 Sample Site Left Radial 04/25/17 10:00 pH 7.48 (7.35-7.45) H 04/25/17 10:00 pCO2 32.0 mmHg (35.0-45.0) L 04/25/17 10:00 pO2 123.0 mmHg (80.0-100.0) H 04/25/17 10:00 HCO3 25.7 mEq/L (20.0-26.0) 04/25/17 10:00 Base Excess 0.9 mEq/L (-3.0-3.0) 04/25/17 10:00 O2 Saturation 99.0 % (92.0-100.0) 04/25/17 10:00 Chau Test Positive 04/25/17 10:00 Vent Rate NA 04/19/17 09:00 Inspired O2 28 04/25/17 10:00 Tidal Volume NA 04/19/17 09:00 PEEP NA 04/19/17 09:00 Pressure (ins/psv/peep) NA 04/19/17 09:00 Critical Value PING 04/25/17 10:00 Sodium 131 mEq/L (136-145) L 04/28/17 06:08 Potassium 4.1 mEq/L (3.5-5.1) 04/28/17 06:08 Chloride 101 mEq/L (98-107) 04/28/17 06:08 Carbon Dioxide 22.2 mEq/L (21.0-31.0) 04/28/17 06:08 Anion Gap 11.9 (7.0-16.0) 04/28/17 06:08 BUN 30 mg/dL (7-25) H 04/28/17 06:08 Creatinine 1.7 mg/dL (0.7-1.3) H 04/28/17 06:08 Est GFR ( Amer) 53.7 ml/min (>90) 04/28/17 06:08 Est GFR (Non-Af Amer) 44.4 ml/min 04/28/17 06:08 BUN/Creatinine Ratio 17.6 04/28/17 06:08 Glucose 232 mg/dL (70-105) H 04/28/17 06:08 POC Glucose 241 MG/DL (70 - 105) H 04/28/17 06:09 Hemoglobin A1c % 6.7 % (4.0-6.0) H 04/22/17 05:04 Whole Bld Lactic Acid 1.30 mmol/L (0.60-1.99) 04/24/17 21:19 Uric Acid 3.6 mg/dL (4.4-7.6) L 04/20/17 07:00 Calcium 8.6 mg/dL (8.6-10.3) 04/28/17 06:08 Phosphorus 4.4 mg/dL (2.5-5.0) 04/28/17 06:08 Magnesium 2.0 mg/dL (1.9-2.7) 04/28/17 06:08 Total Bilirubin 0.5 mg/dL (0.3-1.0) 04/27/17 04:30 AST 19 U/L (13-39) 04/27/17 04:30 ALT 17 U/L (7-52) 04/27/17 04:30 Alkaline Phosphatase 65 U/L (34-104) 04/27/17 04:30 Creatine Kinase 136 U/L (30-223) 04/14/17 14:55 Troponin I 0.01 ng/mL (0.01-0.05) 04/22/17 05:04 C-Reactive Protein 28.9 mg/dL (0.0-0.9) H 04/20/17 07:00 B-Natriuretic Peptide 85.5 pg/mL (5.0-100.0) 04/14/17 14:55 Total Protein 7.2 gm/dL (6.0-8.3) 04/27/17 04:30 Albumin 2.5 gm/dL (4.2-5.5) L 04/27/17 04:30 Globulin 4.7 gm/dL 04/27/17 04:30 Albumin/Globulin Ratio 0.5 (1.0-1.8) L 04/27/17 04:30 Prealbumin 9 mg/dL (10-36) L 04/27/17 04:30 Triglycerides 252 mg/dL (<150) H 04/24/17 05:30 Cholesterol 78 mg/dL (<200) 04/27/17 04:30 LDL Cholesterol Direct 38 mg/dL (75-193) L 04/14/17 14:55 HDL Cholesterol 13 mg/dL (23-92) L 04/14/17 14:55 Amylase 31 U/L (29-103) 04/14/17 14:55 Lipase 15 U/L (11-82) 04/14/17 14:55 Urine Source [place] 04/25/17 07:35 Urine Color YELLOW 04/25/17 07:35 Urine Clarity CLEAR (CLEAR) 04/25/17 07:35 Urine pH 5.5 04/25/17 07:35 Ur Specific [place] 1.015 (1.005-1.030) 04/25/17 07:35 Urine Protein TRACE mg/dL (NEGATIVE) 04/25/17 07:35 Urine Glucose (UA) NEGATIVE mg/dL (NEGATIVE) 04/25/17 07:35 Urine Ketones NEGATIVE mg/dL (NEGATIVE) 04/25/17 07:35 Urine Blood SMALL (NEGATIVE) H 04/25/17 07:35 Urine Nitrate NEGATIVE (NEGATIVE) 04/25/17 07:35 Urine Bilirubin NEGATIVE (NEGATIVE) 04/25/17 07:35 Urine Urobilinogen 0.2 E.U./dL (0.2 - 1.0) 04/25/17 07:35 Ur Leukocyte Esterase NEGATIVE (NEGATIVE) 04/25/17 07:35 Urine RBC 0-2 /hpf (0-5) H 04/25/17 07:35 Urine WBC 0-2 /hpf (0-5) 04/25/17 07:35 Ur Epithelial Cells OCCASIONAL /lpf (FEW) 04/25/17 07:35 Amorphous Sediment MANY URATES (NONE SEEN) 04/14/17 15:05 Urine Bacteria FEW /hpf (NONE SEEN) 04/25/17 07:35 Vancomycin Trough 13.5 ug/mL (10-20) 04/19/17 19:20 Blood Type O POSITIVE 04/14/17 20:36 Antibody Screen NEGATIVE 04/14/17 20:36 - Physical Exam Vitals and I&O: Vital Signs Temp 97.9 F 04/28/17 07:00 Pulse 124 04/28/17 09:22 Resp 32 04/28/17 07:16 BP 129/86 04/28/17 09:22 Pulse Ox 100 04/28/17 07:16 Intake & Output 04/27/17 04/28/17 04/28/17 18:59 06:59 18:59 Intake Total 4974.667 2025 Output Total 50 1991 Balance 4924.667 33 Weight (lbs) 103.873 kg 99.79 kg Intake: Intake, IV Amount 3774.667 725 D5-0.45NS 1,000 ml @ 40 974.667 mls/hr IV .Q24H ARIAN Rx#: [id number] Diltiazem 125 mg In 125 Dextrose 5% 100 ml @ 10 MG/HR 10 mls/hr IV TITR ARIAN Rx#:[id number] Linezolid 600mg/300mL 600 300 600 mg In 300 ml @ 300 mls/ hr IV Q12HR ARIAN Rx#: [id number] Meropenem 1 gm In Sodium 100 Chloride 0.9% 100 ml @ 100 mls/hr IV Q12HR [facility] Rx#:[id number] Multivitamin Inj 10 ml In 2400 Dextrose 70% 1,740 ml In Amino Acids 10% 500 ml In Intralipids 20% 150 ml @ 100 mls/hr IV .Q24H [facility]AN Rx#:[id number] TPN/PPN 1200 1200 Other 100 Output: Drainage 50 12 Left Lower Abdomen 30 5 Right Lower Abdomen 20 7 Urine 1950 Stool 30 Other: # Bowel Movements 1 Stool Characteristics Liquid Formed Active Medications: Current Medications Acetaminophen (Tylenol) 650 mg PO Q6H PRN PRN Reason: FEVER/PAIN Stop: 06/21/17 17:45 Last Admin: 04/28/17 03:30 Dose: 650 mg Albuterol/Ipratropium (Duoneb Neb) 3 ml HHN Q4HRT ARIAN Stop: 06/15/17 14:59 Last Admin: 04/28/17 07:15 Dose: 3 ml Amiodarone HCl (Cordarone) 200 mg NG BID ARIAN Stop: 06/24/17 23:14 Last Admin: 04/28/17 09:22 Dose: 200 mg Budesonide (Pulmicort) 0.5 mg HHN BIDRT ARIAN Stop: 06/15/17 18:59 Last Admin: 04/28/17 07:15 Dose: 0.5 mg Famotidine (Pepcid) 20 mg IVP Q12H [facility] Stop: 06/24/17 09:14 Last Admin: 04/28/17 08:42 Dose: 20 mg Multivitamins/Minerals 10 ml/Dextrose/ Amino Acids/Electrolytes/ Fat Emulsion Intravenous 2,400 mls @ 100 mls/hr IV .Q24H ARIAN Stop: 06/23/17 15:59 Last Admin: 04/27/17 16:26 Dose: 100 mls/hr Dextrose/Sodium Chloride (D5-0.45ns) 1,000 mls @ 40 mls/hr IV .Q24H ARIAN Stop: 06/23/17 15:59 Last Admin: 04/27/17 16:25 Dose: 40 mls/hr Linezolid (Zyvox) 600 mg in 300 mls @ 300 mls/hr IV Q12HR [facility] Stop: 06/23/17 22:59 Last Admin: 04/28/17 08:43 Dose: 300 mls/hr Fluconazole (Diflucan) 200 mg in 100 mls @ 100 mls/hr IV Q24HR [facility]AN Stop: 06/23/17 22:59 Last Admin: 04/27/17 23:00 Dose: 100 mls/hr Diltiazem HCl 125 mg/ Dextrose 125 mls @ 10 mls/hr IV TITR ARIAN; 10 MG/HR PRN Reason: Protocol Stop: 06/24/17 12:41 Last Admin: 04/28/17 07:30 Dose: 15 mg/hr, 15 mls/hr Meropenem 1 gm/ Sodium (Chloride) 100 mls @ 100 mls/hr IV Q12HR ARIAN Stop: 06/26/17 11:59 Last Admin: 04/27/17 21:00 Dose: 100 mls/hr Insulin Aspart (Novolog Insulin Sliding Scale) 0 units SUBQ Q6HR ARIAN PRN Reason: Protocol Stop: 06/16/17 17:59 Last Admin: 04/28/17 06:00 Dose: 4 units Lorazepam (Ativan) 1 mg IVP Q4HR PRN; Protocol PRN Reason: Agitation Stop: 06/25/17 10:40 Last Admin: 04/28/17 02:14 Dose: 1 mg Metoprolol Tartrate (Lopressor) 25 mg PO BID ARIAN Stop: 06/26/17 08:59 Last Admin: 04/28/17 09:22 Dose: 25 mg Miscellaneous (Probiotic Screen) 1 [facility] PRN PRN PRN Reason: PROTOCOL Stop: 06/14/17 09:39 Miscellaneous (Clinical Monitoring) 1 [facility] DAILY PRN PRN Reason: RENAL Stop: 06/15/17 12:48 Miscellaneous (Tpn Per Pharmacy) 1 [facility] PRN PRN PRN Reason: PROTOCOL Stop: 06/16/17 12:28 Morphine Sulfate (Morphine) 4 mg IVP Q2HR PRN PRN Reason: Pain (Moderate) Stop: 06/15/17 10:53 Last Admin: 04/28/17 03:30 Dose: 4 mg Ondansetron HCl (Zofran) 4 mg IVP Q6H PRN PRN Reason: Nausea / Vomiting Stop: 06/13/17 20:08 Last Admin: 04/25/17 21:06 Dose: 4 mg General: Oriented x3, Cooperative, Other (confused) HEENT: Atraumatic, PERRLA, EOMI, Mucous membr. moist/pink, Other (NG tube through the nostrils.) Neck: Supple, +2 carotid pulse wo bruit Cardiovascular: Regular rate, Normal S1, Normal S2 Lungs: Other (diffuse rhonchi.) Abdomen: Soft, Distended, Other ( wound VAC anterior abdominal wall wound. L colostomy+) Extremities: Other (no edema and cyanosis.) Neurological: Reflexes 2+, Other (patient is confused and agitated.) Psych/Mental Status: Other (gets agitated at times.) - Procedures Procedures: Procedures Procedure Code Date BYPASS SIGMOID COLON TO CUTANEOUS, OPEN APPROACH [id number] 04/14/17 PARTIAL REMOVAL OF COLON 48046 04/14/17 RESECTION OF SIGMOID COLON, OPEN APPROACH [id number] 04/14/17 RESPIRATORY VENTILATION, 24-96 CONSECUTIVE HOURS [id number] 04/14/17 VENT MGMT INPAT INIT DAY 80198 04/14/17 Assessment/Plan - Problem List Patient Problems: All Active Problems Abscess of sigmoid colon due to diverticulitis (Acute) K57.20 Diverticulitis of sigmoid colon (Acute) K57.32 Obesity (Acute) E66.9 Perforation of sigmoid colon due to diverticulitis (Acute) K57.20 Peritonitis (acute) generalized (Acute) K65.0 - Assessment Assessment: Current Active Problems Problem Status Onset Abscess of sigmoid colon due to diverticulitis Acute Diverticulitis of sigmoid colon Acute Obesity Acute Perforation of sigmoid colon due to diverticulitis Acute Peritonitis (acute) generalized Acute Perforated diverticulitis status post expiratory laparotomy and colostomy placement. Postoperative respiratory failure. Obesity. Polymicrobial peritonitis due to perforation.. Asthma. Electrolyte imbalance. SEKOU improving. Encephalopathy due to metabolic and infectious etio. Open surgical wound . Altered mental status secondary to metabolic and infectious encephalopathy. Postop anemia. - Plan Plan: Wound Vac as per surgery. IVF and TPN. Correct electrolytes. IV antibiotics as per ID. Rate control. Blood transfusion today. Monitor strict I's and O's. Continue oxygen, HHN and when necessary BiPAP. Pulmonary follow-up. GI and DVT prophylaxis. Follow-up lab. Colostomy care. Post op follow up as per surgery. Guarded prognosis. Follow up on consultants recommendations. Symptoms management. Medication management. Overall prognosis is guarded. Care plan discussed with RN and family. Nutritional Asmnt/Malnutr-PDOC - Dietary Evaluation Malnutrition Findings (Please click <Entered> for more info): Nutritional Asmnt/Malnutrition Start: 04/19/17 14: 21 Text: Status: Complete Freq: Document 04/19/17 14:21 GSUN (Rec: 04/19/17 14:58 [id number]) Nutritional Asmnt/Malnutrition Patient General Information Nutritional Screening Moderate Risk Screening Diagnosis Sepsis, diverticulitis, peritonitis Pertinent Medical Hx/Surgical Hx Asthma, diverticulosis Subjective Information 56 year old male frome home. Pt was restless, moving extremities during visit. 04/14 : sigmoid colectomy, end colostomy, abscess drainage, diffuse peritontis. 04/16: pt started PPN. 04/17: central line and started on TPN. Spoke to family at bedside, explained parenteral nutrition , family undersoto and has no further question at this time. Weight discrepancies noted in EMR, family does not know UBW , estimated nutritional needs based Current Diet Order/ Nutrition Support TPN D10% AA4.25% at 90ml/hr with IL20% 150ml, providing 1401.6kcal Pertinent Medications Dilaudid, Novolog, Culturelle, Magnesium Sulfate, Vancomycin , TPN, Morphine, Multivitamins , Zofran, Protonix, Nacl0.9% Pertinent Labs 04/14: triglycerides 106, total bilirubin 1.1H, glucose 116H 04/17: magnesium 2.5, phsophorus 3.2 04/19: magnesium 1.8L, phosphorus 2.4L, BUN 28H, creatinine 1.3, glucose 154H, total bilirubin 1.1H, triglycerides 238H Nutritional Hx/Data Height 1.7 m Height (Calculated Centimeters) 170.2 Current Weight (lbs) 95.254 kg Weight (Calculated Kilograms) 95.3 Weight (Calculated Grams) 99026.4 [place] Body Weight 148 Weight Status Overweight GI Symptoms Skin Integrity/Comment: [place] 14. Facial non-pitting 1+, bilateral hands pitting 1+ Estimated Nutritional Goals Calories/Kcals/Kg IBW 148/67.3kg Kcals Calculated 2019-2356kcal (30-35kcal/kg) Protein Calculated 101-135g (1.5-2g/kg) Fluid: ml Per MD Nutritional Problem 1. Problem Problem Altered GI function related to Etiology abscess and perforation of sigmoid colon due to diverticulitis aeb Signs/Symptoms: post-operative, on TPN Intervention/Recommendation Comments 1. Recommend TPN D15% AA5.5% at 100ml/hr with IL20% 150ml, providing 2400ml total volume, 2052kcal, 132g protein, meeting 100% of estimated nutritional needs. Carb load 2 .6mg/kg/min (using 210lb adm weight). 2. Monitor for possible refeeding syndrome, 04/18: phsophorus 2.1L, 04/19: magnesium 1.9. 3. Monitor triglycerides, total bilirubin, glucose, renal labs. Expected Outcomes/Goals Expected Outcomes/Goals 1. Pt to meet 100% of estimated nutritional needs on TPN.
--- NOTE | 2017-04-28 13:25 | General Progress Note ---
Subjective - Review of Systems Service Date: 04/28/17 Events since last encounter: for Dr. STAFFORD wound vac working well Hb 7.5, to hve 2 units PRBC Objective - Results Result Diagrams: 04/28/17 06:08 04/28/17 06:08 Recent Labs: Laboratory Last Values WBC 12.6 Th/cmm (4.8-10.8) H 04/28/17 06:08 RBC 2.88 Mil/cmm (4.30-5.70) L 04/28/17 06:08 Hgb 7.5 gm/dL (13.2-17.3) L* 04/28/17 06:08 Hct 22.5 % (39.0-49.0) L* 04/28/17 06:08 MCV 77.9 fl (80-99) L 04/28/17 06:08 MCH 25.9 pg (26.0-30.0) L 04/28/17 06:08 MCHC Differential 33.2 pg (28.0-36.0) 04/28/17 06:08 RDW 14.9 % (11.5-20.0) 04/28/17 06:08 Plt Count 532 Th/cmm (150-400) H 04/28/17 06:08 MPV 8.9 fl 04/28/17 06:08 Neutrophils % 81.6 % (40.0-80.0) H 04/27/17 04:30 Band Neutrophils % 3 % (0-10) 04/28/17 06:08 Lymphocytes % 10.6 % (20.0-50.0) L 04/27/17 04:30 Monocytes % 5.1 % (2.0-10.0) 04/27/17 04:30 Eosinophils % 2.3 % (0.0-5.0) 04/27/17 04:30 Basophils % 0.4 % (0.0-2.0) 04/27/17 04:30 Neutrophils (Manual) 73 % (40-80) 04/28/17 06:08 Lymphocytes 9 % (20-50) L 04/28/17 06:08 Monocytes 9 % (2-10) 04/28/17 06:08 Eosinophils 6 % (0-5) H 04/28/17 06:08 Metamyelocytes 1 % (0-0) H 04/22/17 05:04 Platelet Estimate INCREASED PLATELETS (NORMAL) 04/28/17 06:08 Platelet Morphology NORMAL (NORMAL) 04/28/17 06:08 Anisocytosis 1+ 04/28/17 06:08 Microcytosis 1+ 04/28/17 06:08 RBC Morph Micro Appear ABNORMAL (NORMAL) 04/28/17 06:08 ESR > 140 mm/hr (0-20) H 04/20/17 07:00 PT 11.9 SECONDS (9.5-11.5) H 04/24/17 21:19 INR 1.13 (0.5-1.4) 04/24/17 21:19 PTT (Actin FS) 27.6 SECONDS (26.0-38.0) 04/24/17 21:19 Specimen Source Arterial 04/25/17 10:00 Sample Site Left Radial 04/25/17 10:00 pH 7.48 (7.35-7.45) H 04/25/17 10:00 pCO2 32.0 mmHg (35.0-45.0) L 04/25/17 10:00 pO2 123.0 mmHg (80.0-100.0) H 04/25/17 10:00 HCO3 25.7 mEq/L (20.0-26.0) 04/25/17 10:00 Base Excess 0.9 mEq/L (-3.0-3.0) 04/25/17 10:00 O2 Saturation 99.0 % (92.0-100.0) 04/25/17 10:00 Chau Test Positive 04/25/17 10:00 Vent Rate NA 04/19/17 09:00 Inspired O2 28 04/25/17 10:00 Tidal Volume NA 04/19/17 09:00 PEEP NA 04/19/17 09:00 Pressure (ins/psv/peep) NA 04/19/17 09:00 Critical Value PING 04/25/17 10:00 Sodium 131 mEq/L (136-145) L 04/28/17 06:08 Potassium 4.1 mEq/L (3.5-5.1) 04/28/17 06:08 Chloride 101 mEq/L (98-107) 04/28/17 06:08 Carbon Dioxide 22.2 mEq/L (21.0-31.0) 04/28/17 06:08 Anion Gap 11.9 (7.0-16.0) 04/28/17 06:08 BUN 30 mg/dL (7-25) H 04/28/17 06:08 Creatinine 1.7 mg/dL (0.7-1.3) H 04/28/17 06:08 Est GFR ( Amer) 53.7 ml/min (>90) 04/28/17 06:08 Est GFR (Non-Af Amer) 44.4 ml/min 04/28/17 06:08 BUN/Creatinine Ratio 17.6 04/28/17 06:08 Glucose 232 mg/dL (70-105) H 04/28/17 06:08 POC Glucose 213 MG/DL (70 - 105) H 04/28/17 12:25 Hemoglobin A1c % 6.7 % (4.0-6.0) H 04/22/17 05:04 Whole Bld Lactic Acid 1.30 mmol/L (0.60-1.99) 04/24/17 21:19 Uric Acid 3.6 mg/dL (4.4-7.6) L 04/20/17 07:00 Calcium 8.6 mg/dL (8.6-10.3) 04/28/17 06:08 Phosphorus 4.4 mg/dL (2.5-5.0) 04/28/17 06:08 Magnesium 2.0 mg/dL (1.9-2.7) 04/28/17 06:08 Total Bilirubin 0.5 mg/dL (0.3-1.0) 04/27/17 04:30 AST 19 U/L (13-39) 04/27/17 04:30 ALT 17 U/L (7-52) 04/27/17 04:30 Alkaline Phosphatase 65 U/L (34-104) 04/27/17 04:30 Creatine Kinase 136 U/L (30-223) 04/14/17 14:55 Troponin I 0.01 ng/mL (0.01-0.05) 04/22/17 05:04 C-Reactive Protein 28.9 mg/dL (0.0-0.9) H 04/20/17 07:00 B-Natriuretic Peptide 85.5 pg/mL (5.0-100.0) 04/14/17 14:55 Total Protein 7.2 gm/dL (6.0-8.3) 04/27/17 04:30 Albumin 2.5 gm/dL (4.2-5.5) L 04/27/17 04:30 Globulin 4.7 gm/dL 04/27/17 04:30 Albumin/Globulin Ratio 0.5 (1.0-1.8) L 04/27/17 04:30 Prealbumin 9 mg/dL (10-36) L 04/27/17 04:30 Triglycerides 252 mg/dL (<150) H 04/24/17 05:30 Cholesterol 78 mg/dL (<200) 04/27/17 04:30 LDL Cholesterol Direct 38 mg/dL (75-193) L 04/14/17 14:55 HDL Cholesterol 13 mg/dL (23-92) L 04/14/17 14:55 Amylase 31 U/L (29-103) 04/14/17 14:55 Lipase 15 U/L (11-82) 04/14/17 14:55 Urine Source [place] 04/25/17 07:35 Urine Color YELLOW 04/25/17 07:35 Urine Clarity CLEAR (CLEAR) 04/25/17 07:35 Urine pH 5.5 04/25/17 07:35 Ur Specific [place] 1.015 (1.005-1.030) 04/25/17 07:35 Urine Protein TRACE mg/dL (NEGATIVE) 04/25/17 07:35 Urine Glucose (UA) NEGATIVE mg/dL (NEGATIVE) 04/25/17 07:35 Urine Ketones NEGATIVE mg/dL (NEGATIVE) 04/25/17 07:35 Urine Blood SMALL (NEGATIVE) H 04/25/17 07:35 Urine Nitrate NEGATIVE (NEGATIVE) 04/25/17 07:35 Urine Bilirubin NEGATIVE (NEGATIVE) 04/25/17 07:35 Urine Urobilinogen 0.2 E.U./dL (0.2 - 1.0) 04/25/17 07:35 Ur Leukocyte Esterase NEGATIVE (NEGATIVE) 04/25/17 07:35 Urine RBC 0-2 /hpf (0-5) H 04/25/17 07:35 Urine WBC 0-2 /hpf (0-5) 04/25/17 07:35 Ur Epithelial Cells OCCASIONAL /lpf (FEW) 04/25/17 07:35 Amorphous Sediment MANY URATES (NONE SEEN) 04/14/17 15:05 Urine Bacteria FEW /hpf (NONE SEEN) 04/25/17 07:35 Vancomycin Trough 13.5 ug/mL (10-20) 04/19/17 19:20 Blood Type O POSITIVE 04/14/17 20:36 Antibody Screen NEGATIVE 04/14/17 20:36 - Physical Exam Vitals and I&O: Vital Signs Temp 97.9 F 04/28/17 07:00 Pulse 130 04/28/17 11:23 Resp 34 04/28/17 11:23 BP 129/86 04/28/17 09:22 Pulse Ox 100 04/28/17 11:23 Intake & Output 04/27/17 04/28/17 04/28/17 18:59 06:59 18:59 Intake Total 4974.667 2125 400 Output Total 50 1992 Balance 4924.667 133 400 Weight (lbs) 103.873 kg 99.79 kg Intake: Intake, IV Amount 3774.667 825 400 D5-0.45NS 1,000 ml @ 40 974.667 mls/hr IV .Q24H [facility] Rx#: [id number] Diltiazem 125 mg In 125 Dextrose 5% 100 ml @ 10 MG/HR 10 mls/hr IV TITR [facility]AN Rx#:[id number] Linezolid 600mg/300mL 600 300 600 300 mg In 300 ml @ 300 mls/ hr IV Q12HR [facility] Rx#: [id number] Meropenem 1 gm In Sodium 100 100 100 Chloride 0.9% 100 ml @ 100 mls/hr IV Q12HR [facility] Rx#:[id number] Multivitamin Inj 10 ml In 2400 Dextrose 70% 1,740 ml In Amino Acids 10% 500 ml In Intralipids 20% 150 ml @ 100 mls/hr IV .Q24H [facility] Rx#:[id number] TPN/PPN 1200 1200 Other 100 Output: Drainage 50 12 Left Lower Abdomen 30 5 Right Lower Abdomen 20 7 Urine 1950 Stool 30 Other: # Bowel Movements 1 Stool Characteristics Liquid Formed Liquid Active Medications: Current Medications Acetaminophen (Tylenol) 650 mg PO Q6H PRN PRN Reason: FEVER/PAIN Stop: 06/21/17 17:45 Last Admin: 04/28/17 03:30 Dose: 650 mg Albuterol/Ipratropium (Duoneb Neb) 3 ml HHN Q4HRT [facility] Stop: 06/15/17 14:59 Last Admin: 04/28/17 11:23 Dose: 3 ml Amiodarone HCl (Cordarone) 200 mg NG BID [facility] Stop: 06/24/17 23:14 Last Admin: 04/28/17 09:22 Dose: 200 mg Budesonide (Pulmicort) 0.5 mg HHN BIDRT [facility] Stop: 06/15/17 18:59 Last Admin: 04/28/17 07:15 Dose: 0.5 mg Famotidine (Pepcid) 20 mg IVP Q12H [facility] Stop: 06/24/17 09:14 Last Admin: 04/28/17 08:42 Dose: 20 mg Multivitamins/Minerals 10 ml/Dextrose/ Amino Acids/Electrolytes/ Fat Emulsion Intravenous 2,400 mls @ 100 mls/hr IV .Q24H [facility] Stop: 06/23/17 15:59 Last Admin: 04/27/17 16:26 Dose: 100 mls/hr Dextrose/Sodium Chloride (D5-0.45ns) 1,000 mls @ 40 mls/hr IV .Q24H [facility] Stop: 06/23/17 15:59 Last Admin: 04/27/17 16:25 Dose: 40 mls/hr Linezolid (Zyvox) 600 mg in 300 mls @ 300 mls/hr IV Q12HR [facility] Stop: 06/23/17 22:59 Last Infusion: 04/28/17 12:21 Dose: Infused Fluconazole (Diflucan) 200 mg in 100 mls @ 100 mls/hr IV Q24HR [facility] Stop: 06/23/17 22:59 Last Admin: 04/27/17 23:00 Dose: 100 mls/hr Diltiazem HCl 125 mg/ Dextrose 125 mls @ 10 mls/hr IV TITR [facility]; 10 MG/HR PRN Reason: Protocol Stop: 06/24/17 12:41 Last Admin: 04/28/17 07:30 Dose: 15 mg/hr, 15 mls/hr Meropenem 1 gm/ Sodium (Chloride) 100 mls @ 100 mls/hr IV Q12HR [facility] Stop: 06/26/17 11:59 Last Infusion: 04/28/17 12:20 Dose: Infused Insulin Aspart (Novolog Insulin Sliding Scale) 0 units SUBQ Q6HR [facility] PRN Reason: Protocol Stop: 06/16/17 17:59 Last Admin: 04/28/17 12:29 Dose: 4 units Lorazepam (Ativan) 1 mg IVP Q4HR PRN; Protocol PRN Reason: Agitation Stop: 06/25/17 10:40 Last Admin: 04/28/17 02:14 Dose: 1 mg Metoprolol Tartrate (Lopressor) 25 mg PO BID [facility] Stop: 06/26/17 08:59 Last Admin: 04/28/17 09:22 Dose: 25 mg Miscellaneous (Probiotic Screen) 1 [facility] PRN PRN PRN Reason: PROTOCOL Stop: 06/14/17 09:39 Miscellaneous (Clinical Monitoring) 1 [facility] DAILY PRN PRN Reason: RENAL Stop: 06/15/17 12:48 Miscellaneous (Tpn Per Pharmacy) 1 [facility] PRN PRN PRN Reason: PROTOCOL Stop: 06/16/17 12:28 Morphine Sulfate (Morphine) 4 mg IVP Q2HR PRN PRN Reason: Pain (Moderate) Stop: 06/15/17 10:53 Last Admin: 04/28/17 03:30 Dose: 4 mg Ondansetron HCl (Zofran) 4 mg IVP Q6H PRN PRN Reason: Nausea / Vomiting Stop: 06/13/17 20:08 Last Admin: 04/25/17 21:06 Dose: 4 mg General: Oriented x3, Cooperative, Other (confused) HEENT: Atraumatic, PERRLA, EOMI, Mucous membr. moist/pink, Other (NG tube through the nostrils.) Neck: Supple, +2 carotid pulse wo bruit Cardiovascular: Regular rate, Normal S1, Normal S2 Lungs: Other (diffuse rhonchi.) Abdomen: Soft, Distended, Other ( wound VAC anterior abdominal wall wound. L colostomy+) Extremities: Other (no edema and cyanosis.) Neurological: Reflexes 2+, Other (patient is confused and agitated.) Psych/Mental Status: Other (gets agitated at times.) - Procedures Procedures: Procedures Procedure Code Date BYPASS SIGMOID COLON TO CUTANEOUS, OPEN APPROACH [id number] 04/14/17 PARTIAL REMOVAL OF COLON 29926 04/14/17 RESECTION OF SIGMOID COLON, OPEN APPROACH [id number] 04/14/17 RESPIRATORY VENTILATION, 24-96 CONSECUTIVE HOURS [id number] 04/14/17 VENT MGMT INPAT INIT DAY 24826 04/14/17 Assessment/Plan - Problem List Patient Problems: All Active Problems Abscess of sigmoid colon due to diverticulitis (Acute) K57.20 Diverticulitis of sigmoid colon (Acute) K57.32 Obesity (Acute) E66.9 Perforation of sigmoid colon due to diverticulitis (Acute) K57.20 Peritonitis (acute) generalized (Acute) K65.0 Nutritional Asmnt/Malnutr-PDOC - Dietary Evaluation Malnutrition Findings (Please click <Entered> for more info): Nutritional Asmnt/Malnutrition Start: 04/19/17 14: 21 Text: Status: Complete Freq: Document 04/19/17 14:21 GSUN (Rec: 04/19/17 14:58 [id number]) Nutritional Asmnt/Malnutrition Patient General Information Nutritional Screening Moderate Risk Screening Diagnosis Sepsis, diverticulitis, peritonitis Pertinent Medical Hx/Surgical Hx Asthma, diverticulosis Subjective Information 56 year old male frome home. Pt was restless, moving extremities during visit. 04/14 : sigmoid colectomy, end colostomy, abscess drainage, diffuse peritontis. 04/16: pt started PPN. 04/17: central line and started on TPN. Spoke to family at bedside, explained parenteral nutrition , family undersoto and has no further question at this time. Weight discrepancies noted in EMR, family does not know UBW , estimated nutritional needs based Current Diet Order/ Nutrition Support TPN D10% AA4.25% at 90ml/hr with IL20% 150ml, providing 1401.6kcal Pertinent Medications Dilaudid, Novolog, Culturelle, Magnesium Sulfate, Vancomycin , TPN, Morphine, Multivitamins , Zofran, Protonix, Nacl0.9% Pertinent Labs 04/14: triglycerides 106, total bilirubin 1.1H, glucose 116H 04/17: magnesium 2.5, phsophorus 3.2 04/19: magnesium 1.8L, phosphorus 2.4L, BUN 28H, creatinine 1.3, glucose 154H, total bilirubin 1.1H, triglycerides 238H Nutritional Hx/Data Height 1.7 m Height (Calculated Centimeters) 170.2 Current Weight (lbs) 95.254 kg Weight (Calculated Kilograms) 95.3 Weight (Calculated Grams) 90584.4 [place] Body Weight 148 Weight Status Overweight GI Symptoms Skin Integrity/Comment: [place] 14. Facial non-pitting 1+, bilateral hands pitting 1+ Estimated Nutritional Goals Calories/Kcals/Kg IBW 148/67.3kg Kcals Calculated 2019-2356kcal (30-35kcal/kg) Protein Calculated 101-135g (1.5-2g/kg) Fluid: ml Per MD Nutritional Problem 1. Problem Problem Altered GI function related to Etiology abscess and perforation of sigmoid colon due to diverticulitis aeb Signs/Symptoms: post-operative, on TPN Intervention/Recommendation Comments 1. Recommend TPN D15% AA5.5% at 100ml/hr with IL20% 150ml, providing 2400ml total volume, 2052kcal, 132g protein, meeting 100% of estimated nutritional needs. Carb load 2 .6mg/kg/min (using 210lb adm weight). 2. Monitor for possible refeeding syndrome, 04/18: phsophorus 2.1L, 04/19: magnesium 1.9. 3. Monitor triglycerides, total bilirubin, glucose, renal labs. Expected Outcomes/Goals Expected Outcomes/Goals 1. Pt to meet 100% of estimated nutritional needs on TPN.
[2017-04-28] MEDS: TPN 10%-70% CUSTOM IV SCH (16:30)
[2017-04-28] MEDS: D5-0.45NS 1,000 ML IV SCH (22:00)
[2017-04-28] MEDS: Fluconazole 200mg/100mL 200 MG/100 ML BAG IV SCH (23:00)
[2017-04-29] MEDS: Albuterol/Ipratropium Neb 3 ML AERS HHN SCH ×6 (02:51→22:30)
--- NOTE | 2017-04-29 02:58 | Progress Notes ---
DATE: 04/28/2017 PROBLEM LIST: 1. Chronic recurrent respiratory failure. 2. Encephalopathy. 3. Suspect obstructive sleep apnea syndrome. 4. Severe peritonitis from bowel perforation, status post surgery. SYMPTOMS: ____, no respiratory distress, etc. PHYSICAL EXAMINATION: VITAL SIGNS: The patient's recorded vitals; temperature is 96, heart rate is 110-120, BP is 129/86, saturation 100% on 2 liters of oxygen. NECK: Veins not visualized. CHEST: Shows occasional rhonchi with diminished air entry. HEART: Regular. ABDOMEN: Soft, nontender. LABORATORY DATA: White count is 12.6, hemoglobin 7.5, creatinine is 1.7, BUN is 30. ASSESSMENT: The patient clinically status quo, not significantly changed; encephalopathy, complicated by obstructive sleep apnea syndrome; morbid obesity with abdominal cavity infection from peritonitis. PLANS AND SUGGESTIONS: We will go ahead and continue current treatment. Discussed with patient's daughter at the bedside. JOB# [id number]
[2017-04-29] MEDS: INSULIN ASPART SLIDING SCALE 100 UNITS/ML UNIT SUBQ SCH ×5 (06:00→23:50)
[2017-04-29 07:41] LABS: % BASOPHILS 0.9 % (0.0-2.0); % EOSINOPHILS 4.6 % (0.0-5.0); % LYMPHOCYTES 9.3 % (20.0-50.0); % MONOCYTES 7.2 % (2.0-10.0); HEMATOCRIT 24.9 % (39.0-49.0); HEMOGLOBIN 8.4 gm/dL (13.2-17.3); MEAN CELL VOLUME 78.6 fl (80-99); MEAN CORPUSCULAR HEMOGLOBIN 26.4 pg (26.0-30.0); MEAN CORPUSCULAR HGB CONC 33.6 pg (28.0-36.0); MEAN PLATELET VOLUME 8.2 fl; NEUTROPHILE ABSOLUTE 8.2 Th/cmm (1.8-8.0); PLATELET COUNT 491 Th/cmm (150-400); RED BLOOD COUNT 3.17 Mil/cmm (4.30-5.70); RED CELL DISTRIBUTION WIDTH 14.5 % (11.5-20.0); WHITE BLOOD COUNT 10.6 Th/cmm (4.8-10.8)
[2017-04-29] MEDS: Budesonide 0.5 Mg/2 mL Ud HHN SCH ×2 (08:00→19:22)
[2017-04-29 08:09] LABS: ALB/GLOB RATIO 0.5 (1.0-1.8); ALKALINE PHOSPHATASE 88 U/L (34-104); ANION GAP 9.1 (7.0-16.0); BILIRUBIN,TOTAL 0.7 mg/dL (0.3-1.0); BUN - UREA NITROGEN 26 mg/dL (7-25); BUN/CREATININE RATIO 18.6; CALCIUM SERUM 8.6 mg/dL (8.6-10.3); CARBON DIOXIDE 26.6 mEq/L (21.0-31.0); CHLORIDE 99 mEq/L (98-107); CREATININE - SERUM 1.4 mg/dL (0.7-1.3); GLUCOSE 218 mg/dL (70-105); PHOSPHOROUS 4.2 mg/dL (2.5-5.0); POTASSIUM SERUM 3.7 mEq/L (3.5-5.1); SGOT 34 U/L (13-39); SGPT/ALT 17 U/L (7-52); SODIUM SERUM 131 mEq/L (136-145)
[2017-04-29] MEDS: Linezolid 600mg/300mL 600 MG/300 ML BAG IV SCH ×2 (10:02→21:17)
--- NOTE | 2017-04-29 10:32 | General Progress Note ---
Subjective - Review of Systems Subjective: Patient is seen and examined. Patient is MICU bed and 10. The patient's family at bedside. Status post blood transfusion yesterday. Patient's hemoglobin is 8.5. Patient's back on BiPAP for now since respiratory rate increases to 30+. Patient's family are concerned about his waxing and waning hospital course. I did discuss with them about patient's a treatment plan . Objective - Results Result Diagrams: 04/29/17 07:16 04/29/17 07:16 Recent Labs: Laboratory Last Values WBC 10.6 Th/cmm (4.8-10.8) 04/29/17 07:16 RBC 3.17 Mil/cmm (4.30-5.70) L 04/29/17 07:16 Hgb 8.4 gm/dL (13.2-17.3) L 04/29/17 07:16 Hct 24.9 % (39.0-49.0) L 04/29/17 07:16 MCV 78.6 fl (80-99) L 04/29/17 07:16 MCH 26.4 pg (26.0-30.0) 04/29/17 07:16 MCHC Differential 33.6 pg (28.0-36.0) 04/29/17 07:16 RDW 14.5 % (11.5-20.0) 04/29/17 07:16 Plt Count 491 Th/cmm (150-400) H 04/29/17 07:16 MPV 8.2 fl 04/29/17 07:16 Neutrophils % 78.0 % (40.0-80.0) 04/29/17 07:16 Band Neutrophils % 3 % (0-10) 04/28/17 06:08 Lymphocytes % 9.3 % (20.0-50.0) L 04/29/17 07:16 Monocytes % 7.2 % (2.0-10.0) 04/29/17 07:16 Eosinophils % 4.6 % (0.0-5.0) 04/29/17 07:16 Basophils % 0.9 % (0.0-2.0) 04/29/17 07:16 Neutrophils (Manual) 73 % (40-80) 04/28/17 06:08 Lymphocytes 9 % (20-50) L 04/28/17 06:08 Monocytes 9 % (2-10) 04/28/17 06:08 Eosinophils 6 % (0-5) H 04/28/17 06:08 Metamyelocytes 1 % (0-0) H 04/22/17 05:04 Platelet Estimate INCREASED PLATELETS (NORMAL) 04/28/17 06:08 Platelet Morphology NORMAL (NORMAL) 04/28/17 06:08 Anisocytosis 1+ 04/28/17 06:08 Microcytosis 1+ 04/28/17 06:08 RBC Morph Micro Appear ABNORMAL (NORMAL) 04/28/17 06:08 ESR > 140 mm/hr (0-20) H 04/20/17 07:00 PT 11.9 SECONDS (9.5-11.5) H 04/24/17 21:19 INR 1.13 (0.5-1.4) 04/24/17 21:19 PTT (Actin FS) 27.6 SECONDS (26.0-38.0) 04/24/17 21:19 Specimen Source Arterial 04/25/17 10:00 Sample Site Left Radial 04/25/17 10:00 pH 7.48 (7.35-7.45) H 04/25/17 10:00 pCO2 32.0 mmHg (35.0-45.0) L 04/25/17 10:00 pO2 123.0 mmHg (80.0-100.0) H 04/25/17 10:00 HCO3 25.7 mEq/L (20.0-26.0) 04/25/17 10:00 Base Excess 0.9 mEq/L (-3.0-3.0) 04/25/17 10:00 O2 Saturation 99.0 % (92.0-100.0) 04/25/17 10:00 Chau Test Positive 04/25/17 10:00 Vent Rate NA 04/19/17 09:00 Inspired O2 28 04/25/17 10:00 Tidal Volume NA 04/19/17 09:00 PEEP NA 04/19/17 09:00 Pressure (ins/psv/peep) NA 04/19/17 09:00 Critical Value PING 04/25/17 10:00 Sodium 131 mEq/L (136-145) L 04/29/17 07:16 Potassium 3.7 mEq/L (3.5-5.1) 04/29/17 07:16 Chloride 99 mEq/L (98-107) 04/29/17 07:16 Carbon Dioxide 26.6 mEq/L (21.0-31.0) 04/29/17 07:16 Anion Gap 9.1 (7.0-16.0) 04/29/17 07:16 BUN 26 mg/dL (7-25) H 04/29/17 07:16 Creatinine 1.4 mg/dL (0.7-1.3) H 04/29/17 07:16 Est GFR ( Amer) > 60.0 ml/min (>90) 04/29/17 07:16 Est GFR (Non-Af Amer) 55.5 ml/min 04/29/17 07:16 BUN/Creatinine Ratio 18.6 04/29/17 07:16 Glucose 218 mg/dL (70-105) H 04/29/17 07:16 POC Glucose 190 MG/DL (70 - 105) H 04/29/17 05:44 Hemoglobin A1c % 6.7 % (4.0-6.0) H 04/22/17 05:04 Whole Bld Lactic Acid 1.30 mmol/L (0.60-1.99) 04/24/17 21:19 Uric Acid 3.6 mg/dL (4.4-7.6) L 04/20/17 07:00 Calcium 8.6 mg/dL (8.6-10.3) 04/29/17 07:16 Phosphorus 4.2 mg/dL (2.5-5.0) 04/29/17 07:16 Magnesium 2.0 mg/dL (1.9-2.7) 04/29/17 07:16 Total Bilirubin 0.7 mg/dL (0.3-1.0) 04/29/17 07:16 AST 34 U/L (13-39) 04/29/17 07:16 ALT 17 U/L (7-52) 04/29/17 07:16 Alkaline Phosphatase 88 U/L (34-104) 04/29/17 07:16 Creatine Kinase 136 U/L (30-223) 04/14/17 14:55 Troponin I 0.01 ng/mL (0.01-0.05) 04/22/17 05:04 C-Reactive Protein 28.9 mg/dL (0.0-0.9) H 04/20/17 07:00 B-Natriuretic Peptide 85.5 pg/mL (5.0-100.0) 04/14/17 14:55 Total Protein 7.1 gm/dL (6.0-8.3) 04/29/17 07:16 Albumin 2.5 gm/dL (4.2-5.5) L 04/29/17 07:16 Globulin 4.6 gm/dL 04/29/17 07:16 Albumin/Globulin Ratio 0.5 (1.0-1.8) L 04/29/17 07:16 Prealbumin 9 mg/dL (10-36) L 04/27/17 04:30 Triglycerides 252 mg/dL (<150) H 04/24/17 05:30 Cholesterol 78 mg/dL (<200) 04/27/17 04:30 LDL Cholesterol Direct 38 mg/dL (75-193) L 04/14/17 14:55 HDL Cholesterol 13 mg/dL (23-92) L 04/14/17 14:55 Amylase 31 U/L (29-103) 04/14/17 14:55 Lipase 15 U/L (11-82) 04/14/17 14:55 Urine Source [place] 04/25/17 07:35 Urine Color YELLOW 04/25/17 07:35 Urine Clarity CLEAR (CLEAR) 04/25/17 07:35 Urine pH 5.5 04/25/17 07:35 Ur Specific [place] 1.015 (1.005-1.030) 04/25/17 07:35 Urine Protein TRACE mg/dL (NEGATIVE) 04/25/17 07:35 Urine Glucose (UA) NEGATIVE mg/dL (NEGATIVE) 04/25/17 07:35 Urine Ketones NEGATIVE mg/dL (NEGATIVE) 04/25/17 07:35 Urine Blood SMALL (NEGATIVE) H 04/25/17 07:35 Urine Nitrate NEGATIVE (NEGATIVE) 04/25/17 07:35 Urine Bilirubin NEGATIVE (NEGATIVE) 04/25/17 07:35 Urine Urobilinogen 0.2 E.U./dL (0.2 - 1.0) 04/25/17 07:35 Ur Leukocyte Esterase NEGATIVE (NEGATIVE) 04/25/17 07:35 Urine RBC 0-2 /hpf (0-5) H 04/25/17 07:35 Urine WBC 0-2 /hpf (0-5) 04/25/17 07:35 Ur Epithelial Cells OCCASIONAL /lpf (FEW) 04/25/17 07:35 Amorphous Sediment MANY URATES (NONE SEEN) 04/14/17 15:05 Urine Bacteria FEW /hpf (NONE SEEN) 04/25/17 07:35 Vancomycin Trough 13.5 ug/mL (10-20) 04/19/17 19:20 Blood Type O POSITIVE 04/28/17 14:35 Antibody Screen NEGATIVE 04/28/17 14:35 Crossmatch See Detail 04/28/17 14:35 - Physical Exam Vitals and I&O: Vital Signs Temp 100.5 F 04/29/17 07:00 Pulse 148 04/29/17 10:09 Resp 37 04/29/17 10:09 BP 133/76 04/29/17 10:03 Pulse Ox 100 04/29/17 10:09 Intake & Output 04/28/17 04/29/17 04/29/17 18:59 06:59 18:59 Intake Total 3525 2841.75 Output Total 1418 1505 Balance 2107 1336.75 Weight (lbs) 99.79 kg 100.244 kg Intake: Intake, IV Amount 2925 1641.75 D5-0.45NS 1,000 ml @ 40 1000 mls/hr IV .Q24H ARIAN Rx#: [id number] Diltiazem 125 mg In 125 241.75 Dextrose 5% 100 ml @ 10 MG/HR 10 mls/hr IV TITR ARIAN Rx#:[id number] Fluconazole 200mg/100mL 100 200 mg In 100 ml @ 100 mls/hr IV Q24HR ARIAN Rx#: [id number] Linezolid 600mg/300mL 600 300 300 mg In 300 ml @ 300 mls/ hr IV Q12HR ARIAN Rx#: [id number] Meropenem 1 gm In Sodium 100 Chloride 0.9% 100 ml @ 100 mls/hr IV Q12HR ARIAN Rx#:[id number] Multivitamin Inj 10 ml In 2400 Dextrose 70% 1,740 ml In Amino Acids 10% 500 ml In Intralipids 20% 150 ml @ 100 mls/hr IV .Q24H ARIAN Rx#:[id number] TPN/PPN 600 1200 Output: Gastric Drainage 50 100 Drainage 8 5 Left Lower Abdomen 8 Right Lower Abdomen 0 5 Urine 1350 1400 Stool 10 Other: # Bowel Movements 1 Stool Characteristics Liquid Liquid Brown Active Medications: Current Medications Acetaminophen (Tylenol) 650 mg PO Q6H PRN PRN Reason: FEVER/PAIN Stop: 06/21/17 17:45 Last Admin: 04/29/17 04:45 Dose: 650 mg Albuterol/Ipratropium (Duoneb Neb) 3 ml HHN Q4HRT ARIAN Stop: 06/15/17 14:59 Last Admin: 04/29/17 08:00 Dose: 3 ml Amiodarone HCl (Cordarone) 200 mg NG BID ARIAN Stop: 06/24/17 23:14 Last Admin: 04/29/17 10:09 Dose: 200 mg Budesonide (Pulmicort) 0.5 mg HHN BIDRT ARIAN Stop: 06/15/17 18:59 Last Admin: 04/29/17 08:00 Dose: 0.5 mg Famotidine (Pepcid) 20 mg IVP Q12H AIRAN Stop: 06/24/17 09:14 Last Admin: 04/28/17 21:15 Dose: 20 mg Multivitamins/Minerals 10 ml/Dextrose/ Amino Acids/Electrolytes/ Fat Emulsion Intravenous 2,400 mls @ 100 mls/hr IV .Q24H ARIAN Stop: 06/23/17 15:59 Last Admin: 04/28/17 16:30 Dose: 100 mls/hr Dextrose/Sodium Chloride (D5-0.45ns) 1,000 mls @ 40 mls/hr IV .Q24H ARIAN Stop: 06/23/17 15:59 Last Admin: 04/28/17 22:00 Dose: 40 mls/hr Linezolid (Zyvox) 600 mg in 300 mls @ 300 mls/hr IV Q12HR ARIAN Stop: 06/23/17 22:59 Last Admin: 04/29/17 10:02 Dose: 300 mls/hr Fluconazole (Diflucan) 200 mg in 100 mls @ 100 mls/hr IV Q24HR ARIAN Stop: 06/23/17 22:59 Last Admin: 04/28/17 23:00 Dose: 100 mls/hr Diltiazem HCl 125 mg/ Dextrose 125 mls @ 10 mls/hr IV TITR ARIAN; 10 MG/HR PRN Reason: Protocol Stop: 06/24/17 12:41 Last Admin: 04/29/17 09:00 Dose: 20 mg/hr, 20 mls/hr Meropenem 1 gm/ Sodium (Chloride) 100 mls @ 100 mls/hr IV Q12HR ARIAN Stop: 06/26/17 11:59 Last Admin: 04/28/17 21:00 Dose: 100 mls/hr Insulin Aspart (Novolog Insulin Sliding Scale) 0 units SUBQ Q6HR ARIAN PRN Reason: Protocol Stop: 06/16/17 17:59 Last Admin: 04/29/17 06:00 Dose: 2 units Lorazepam (Ativan) 1 mg IVP Q4HR PRN; Protocol PRN Reason: Agitation Stop: 06/25/17 10:40 Last Admin: 04/29/17 10:01 Dose: 1 mg Metoprolol Tartrate (Lopressor) 25 mg PO BID ARIAN Stop: 06/26/17 08:59 Last Admin: 04/29/17 10:03 Dose: 25 mg Miscellaneous (Probiotic Screen) 1 [facility] PRN PRN PRN Reason: PROTOCOL Stop: 06/14/17 09:39 Miscellaneous (Clinical Monitoring) 1 [facility] DAILY PRN PRN Reason: RENAL Stop: 06/15/17 12:48 Miscellaneous (Tpn Per Pharmacy) 1 [facility] PRN PRN PRN Reason: PROTOCOL Stop: 06/16/17 12:28 Morphine Sulfate (Morphine) 4 mg IVP Q2HR PRN PRN Reason: Pain (Moderate) Stop: 06/15/17 10:53 Last Admin: 04/28/17 03:30 Dose: 4 mg Ondansetron HCl (Zofran) 4 mg IVP Q6H PRN PRN Reason: Nausea / Vomiting Stop: 06/13/17 20:08 Last Admin: 04/25/17 21:06 Dose: 4 mg General: Alert, Mild distress HEENT: Atraumatic, PERRLA, EOMI, Mucous membr. moist/pink, Other Neck: Supple, +2 carotid pulse wo bruit Cardiovascular: Regular rate, Normal S1, Normal S2 Lungs: Other (diffuse rhonchi.) Abdomen: Soft, Distended, Other ( wound VAC anterior abdominal wall wound. L colostomy+) Extremities: Other (no edema and cyanosis.) Neurological: Reflexes 2+, Other (patient is confused and agitated.) Psych/Mental Status: Other (gets agitated at times.) - Procedures Procedures: Procedures Procedure Code Date BYPASS SIGMOID COLON TO CUTANEOUS, OPEN APPROACH [id number] 04/14/17 PARTIAL REMOVAL OF COLON 73137 04/14/17 RESECTION OF SIGMOID COLON, OPEN APPROACH [id number] 04/14/17 RESPIRATORY VENTILATION, 24-96 CONSECUTIVE HOURS [id number] 04/14/17 VENT MGMT INPAT INIT DAY 43323 04/14/17 Assessment/Plan - Problem List Patient Problems: All Active Problems Abscess of sigmoid colon due to diverticulitis (Acute) K57.20 Diverticulitis of sigmoid colon (Acute) K57.32 Obesity (Acute) E66.9 Perforation of sigmoid colon due to diverticulitis (Acute) K57.20 Peritonitis (acute) generalized (Acute) K65.0 - Assessment Assessment: Current Active Problems Problem Status Onset Abscess of sigmoid colon due to diverticulitis Acute Diverticulitis of sigmoid colon Acute Obesity Acute Perforation of sigmoid colon due to diverticulitis Acute Peritonitis (acute) generalized Acute Perforated diverticulitis status post expiratory laparotomy and colostomy placement. Postoperative respiratory failure. Obesity. Polymicrobial peritonitis due to perforation.. Asthma. SVT currently on Cardizem drip Electrolyte imbalance. SEKOU improving. Encephalopathy due to metabolic and infectious etio. Open surgical wound . Altered mental status secondary to metabolic and infectious encephalopathy. Postop anemia. - Plan Plan: Wound Vac as per surgery. IVF and TPN. Correct electrolytes. IV antibiotics as per ID. Rate control. When necessary BiPAP. Monitor strict I's and O's. Continue oxygen, HHN and when necessary BiPAP. Pulmonary follow-up. GI and DVT prophylaxis. Follow-up lab. Colostomy care. Post op follow up as per surgery. Guarded prognosis. Follow up on consultants recommendations. Symptoms management. Medication management. Overall prognosis is guarded. Care plan discussed with RN and family. Nutritional Asmnt/Malnutr-PDOC - Dietary Evaluation Malnutrition Findings (Please click <Entered> for more info): Nutritional Asmnt/Malnutrition Start: 04/19/17 14: 21 Text: Status: Complete Freq: Document 04/19/17 14:21 GSUN (Rec: 04/19/17 14:58 [id number]) Nutritional Asmnt/Malnutrition Patient General Information Nutritional Screening Moderate Risk Screening Diagnosis Sepsis, diverticulitis, peritonitis Pertinent Medical Hx/Surgical Hx Asthma, diverticulosis Subjective Information 56 year old male frome home. Pt was restless, moving extremities during visit. 04/14 : sigmoid colectomy, end colostomy, abscess drainage, diffuse peritontis. 04/16: pt started PPN. 04/17: central line and started on TPN. Spoke to family at bedside, explained parenteral nutrition , family undersoto and has no further question at this time. Weight discrepancies noted in EMR, family does not know UBW , estimated nutritional needs based Current Diet Order/ Nutrition Support TPN D10% AA4.25% at 90ml/hr with IL20% 150ml, providing 1401.6kcal Pertinent Medications Dilaudid, Novolog, Culturelle, Magnesium Sulfate, Vancomycin , TPN, Morphine, Multivitamins , Zofran, Protonix, Nacl0.9% Pertinent Labs 04/14: triglycerides 106, total bilirubin 1.1H, glucose 116H 04/17: magnesium 2.5, phsophorus 3.2 04/19: magnesium 1.8L, phosphorus 2.4L, BUN 28H, creatinine 1.3, glucose 154H, total bilirubin 1.1H, triglycerides 238H Nutritional Hx/Data Height 1.7 m Height (Calculated Centimeters) 170.2 Current Weight (lbs) 95.254 kg Weight (Calculated Kilograms) 95.3 Weight (Calculated Grams) 20282.4 [place] Body Weight 148 Weight Status Overweight GI Symptoms Skin Integrity/Comment: [place] 14. Facial non-pitting 1+, bilateral hands pitting 1+ Estimated Nutritional Goals Calories/Kcals/Kg IBW 148/67.3kg Kcals Calculated 2019-2356kcal (30-35kcal/kg) Protein Calculated 101-135g (1.5-2g/kg) Fluid: ml Per MD Nutritional Problem 1. Problem Problem Altered GI function related to Etiology abscess and perforation of sigmoid colon due to diverticulitis aeb Signs/Symptoms: post-operative, on TPN Intervention/Recommendation Comments 1. Recommend TPN D15% AA5.5% at 100ml/hr with IL20% 150ml, providing 2400ml total volume, 2052kcal, 132g protein, meeting 100% of estimated nutritional needs. Carb load 2 .6mg/kg/min (using 210lb adm weight). 2. Monitor for possible refeeding syndrome, 04/18: phsophorus 2.1L, 04/19: magnesium 1.9. 3. Monitor triglycerides, total bilirubin, glucose, renal labs. Expected Outcomes/Goals Expected Outcomes/Goals 1. Pt to meet 100% of estimated nutritional needs on TPN.
[2017-04-29] MEDS: Morphine Sulfate 4 mg/mL 1mL Syr IVP PRN ×2 (11:23→20:47)
--- NOTE | 2017-04-29 13:03 | Infectious Disease Prog Note ---
Infectious Disease Subjective - Review of Systems Service Date: 04/29/17 Subjective: Still febrile. Low grade intermittent fevers. had developed chills. Infectious Disease Objective - Results Result Diagrams: 04/29/17 07:16 04/29/17 07:16 Recent Labs: Laboratory Last Values WBC 10.6 Th/cmm (4.8-10.8) 04/29/17 07:16 RBC 3.17 Mil/cmm (4.30-5.70) L 04/29/17 07:16 Hgb 8.4 gm/dL (13.2-17.3) L 04/29/17 07:16 Hct 24.9 % (39.0-49.0) L 04/29/17 07:16 MCV 78.6 fl (80-99) L 04/29/17 07:16 MCH 26.4 pg (26.0-30.0) 04/29/17 07:16 MCHC Differential 33.6 pg (28.0-36.0) 04/29/17 07:16 RDW 14.5 % (11.5-20.0) 04/29/17 07:16 Plt Count 491 Th/cmm (150-400) H 04/29/17 07:16 MPV 8.2 fl 04/29/17 07:16 Neutrophils % 78.0 % (40.0-80.0) 04/29/17 07:16 Band Neutrophils % 3 % (0-10) 04/28/17 06:08 Lymphocytes % 9.3 % (20.0-50.0) L 04/29/17 07:16 Monocytes % 7.2 % (2.0-10.0) 04/29/17 07:16 Eosinophils % 4.6 % (0.0-5.0) 04/29/17 07:16 Basophils % 0.9 % (0.0-2.0) 04/29/17 07:16 Neutrophils (Manual) 73 % (40-80) 04/28/17 06:08 Lymphocytes 9 % (20-50) L 04/28/17 06:08 Monocytes 9 % (2-10) 04/28/17 06:08 Eosinophils 6 % (0-5) H 04/28/17 06:08 Metamyelocytes 1 % (0-0) H 04/22/17 05:04 Platelet Estimate INCREASED PLATELETS (NORMAL) 04/28/17 06:08 Platelet Morphology NORMAL (NORMAL) 04/28/17 06:08 Anisocytosis 1+ 04/28/17 06:08 Microcytosis 1+ 04/28/17 06:08 RBC Morph Micro Appear ABNORMAL (NORMAL) 04/28/17 06:08 ESR > 140 mm/hr (0-20) H 04/20/17 07:00 PT 11.9 SECONDS (9.5-11.5) H 04/24/17 21:19 INR 1.13 (0.5-1.4) 04/24/17 21:19 PTT (Actin FS) 27.6 SECONDS (26.0-38.0) 04/24/17 21:19 Specimen Source Arterial 04/25/17 10:00 Sample Site Left Radial 04/25/17 10:00 pH 7.48 (7.35-7.45) H 04/25/17 10:00 pCO2 32.0 mmHg (35.0-45.0) L 04/25/17 10:00 pO2 123.0 mmHg (80.0-100.0) H 04/25/17 10:00 HCO3 25.7 mEq/L (20.0-26.0) 04/25/17 10:00 Base Excess 0.9 mEq/L (-3.0-3.0) 04/25/17 10:00 O2 Saturation 99.0 % (92.0-100.0) 04/25/17 10:00 Chau Test Positive 04/25/17 10:00 Vent Rate NA 04/19/17 09:00 Inspired O2 28 04/25/17 10:00 Tidal Volume NA 04/19/17 09:00 PEEP NA 04/19/17 09:00 Pressure (ins/psv/peep) NA 04/19/17 09:00 Critical Value PING 04/25/17 10:00 Sodium 131 mEq/L (136-145) L 04/29/17 07:16 Potassium 3.7 mEq/L (3.5-5.1) 04/29/17 07:16 Chloride 99 mEq/L (98-107) 04/29/17 07:16 Carbon Dioxide 26.6 mEq/L (21.0-31.0) 04/29/17 07:16 Anion Gap 9.1 (7.0-16.0) 04/29/17 07:16 BUN 26 mg/dL (7-25) H 04/29/17 07:16 Creatinine 1.4 mg/dL (0.7-1.3) H 04/29/17 07:16 Est GFR ( Amer) > 60.0 ml/min (>90) 04/29/17 07:16 Est GFR (Non-Af Amer) 55.5 ml/min 04/29/17 07:16 BUN/Creatinine Ratio 18.6 04/29/17 07:16 Glucose 218 mg/dL (70-105) H 04/29/17 07:16 POC Glucose 190 MG/DL (70 - 105) H 04/29/17 05:44 Hemoglobin A1c % 6.7 % (4.0-6.0) H 04/22/17 05:04 Whole Bld Lactic Acid 1.30 mmol/L (0.60-1.99) 04/24/17 21:19 Uric Acid 3.6 mg/dL (4.4-7.6) L 04/20/17 07:00 Calcium 8.6 mg/dL (8.6-10.3) 04/29/17 07:16 Phosphorus 4.2 mg/dL (2.5-5.0) 04/29/17 07:16 Magnesium 2.0 mg/dL (1.9-2.7) 04/29/17 07:16 Total Bilirubin 0.7 mg/dL (0.3-1.0) 04/29/17 07:16 AST 34 U/L (13-39) 04/29/17 07:16 ALT 17 U/L (7-52) 04/29/17 07:16 Alkaline Phosphatase 88 U/L (34-104) 04/29/17 07:16 Creatine Kinase 136 U/L (30-223) 04/14/17 14:55 Troponin I 0.01 ng/mL (0.01-0.05) 04/22/17 05:04 C-Reactive Protein 28.9 mg/dL (0.0-0.9) H 04/20/17 07:00 B-Natriuretic Peptide 85.5 pg/mL (5.0-100.0) 04/14/17 14:55 Total Protein 7.1 gm/dL (6.0-8.3) 04/29/17 07:16 Albumin 2.5 gm/dL (4.2-5.5) L 04/29/17 07:16 Globulin 4.6 gm/dL 04/29/17 07:16 Albumin/Globulin Ratio 0.5 (1.0-1.8) L 04/29/17 07:16 Prealbumin 9 mg/dL (10-36) L 04/27/17 04:30 Triglycerides 252 mg/dL (<150) H 04/24/17 05:30 Cholesterol 78 mg/dL (<200) 04/27/17 04:30 LDL Cholesterol Direct 38 mg/dL (75-193) L 04/14/17 14:55 HDL Cholesterol 13 mg/dL (23-92) L 04/14/17 14:55 Amylase 31 U/L (29-103) 04/14/17 14:55 Lipase 15 U/L (11-82) 04/14/17 14:55 Urine Source [place] 04/25/17 07:35 Urine Color YELLOW 04/25/17 07:35 Urine Clarity CLEAR (CLEAR) 04/25/17 07:35 Urine pH 5.5 04/25/17 07:35 Ur Specific [place] 1.015 (1.005-1.030) 04/25/17 07:35 Urine Protein TRACE mg/dL (NEGATIVE) 04/25/17 07:35 Urine Glucose (UA) NEGATIVE mg/dL (NEGATIVE) 04/25/17 07:35 Urine Ketones NEGATIVE mg/dL (NEGATIVE) 04/25/17 07:35 Urine Blood SMALL (NEGATIVE) H 04/25/17 07:35 Urine Nitrate NEGATIVE (NEGATIVE) 04/25/17 07:35 Urine Bilirubin NEGATIVE (NEGATIVE) 04/25/17 07:35 Urine Urobilinogen 0.2 E.U./dL (0.2 - 1.0) 04/25/17 07:35 Ur Leukocyte Esterase NEGATIVE (NEGATIVE) 04/25/17 07:35 Urine RBC 0-2 /hpf (0-5) H 04/25/17 07:35 Urine WBC 0-2 /hpf (0-5) 04/25/17 07:35 Ur Epithelial Cells OCCASIONAL /lpf (FEW) 04/25/17 07:35 Amorphous Sediment MANY URATES (NONE SEEN) 04/14/17 15:05 Urine Bacteria FEW /hpf (NONE SEEN) 04/25/17 07:35 Vancomycin Trough 13.5 ug/mL (10-20) 04/19/17 19:20 Blood Type O POSITIVE 04/28/17 14:35 Antibody Screen NEGATIVE 04/28/17 14:35 Crossmatch See Detail 04/28/17 14:35 - Physical Exam Vitals and I&O: Vital Signs Temp 98.3 F 04/29/17 08:00 Pulse 144 04/29/17 11:29 Resp 39 04/29/17 11:31 BP 133/76 04/29/17 10:03 Pulse Ox 100 04/29/17 11:31 Intake & Output 04/28/17 04/29/17 04/29/17 18:59 06:59 18:59 Intake Total 3525 2841.75 Output Total 1418 1505 Balance 2107 1336.75 Weight (lbs) 99.79 kg 100.244 kg Intake: Intake, IV Amount 2925 1641.75 D5-0.45NS 1,000 ml @ 40 1000 mls/hr IV .Q24H [facility] Rx#: [id number] Diltiazem 125 mg In 125 241.75 Dextrose 5% 100 ml @ 10 MG/HR 10 mls/hr IV TITR [facility] Rx#:[id number] Fluconazole 200mg/100mL 100 200 mg In 100 ml @ 100 mls/hr IV Q24HR [facility] Rx#: [id number] Linezolid 600mg/300mL 600 300 300 mg In 300 ml @ 300 mls/ hr IV Q12HR [facility] Rx#: [id number] Meropenem 1 gm In Sodium 100 Chloride 0.9% 100 ml @ 100 mls/hr IV Q12HR [facility] Rx#:[id number] Multivitamin Inj 10 ml In 2400 Dextrose 70% 1,740 ml In Amino Acids 10% 500 ml In Intralipids 20% 150 ml @ 100 mls/hr IV .Q24H [facility] Rx#:[id number] TPN/PPN 600 1200 Output: Gastric Drainage 50 100 Drainage 8 5 Left Lower Abdomen 8 Right Lower Abdomen 0 5 Urine 1350 1400 Stool 10 Other: # Bowel Movements 1 Stool Characteristics Liquid Liquid Liquid Brown Brown Active Medications: Current Medications Acetaminophen (Tylenol) 650 mg PO Q6H PRN PRN Reason: FEVER/PAIN Stop: 06/21/17 17:45 Last Admin: 04/29/17 04:45 Dose: 650 mg Albuterol/Ipratropium (Duoneb Neb) 3 ml HHN Q4HRT [facility] Stop: 06/15/17 14:59 Last Admin: 04/29/17 11:29 Dose: 3 ml Amiodarone HCl (Cordarone) 200 mg NG BID [facility] Stop: 06/24/17 23:14 Last Admin: 04/29/17 10:09 Dose: 200 mg Budesonide (Pulmicort) 0.5 mg HHN BIDRT [facility] Stop: 06/15/17 18:59 Last Admin: 04/29/17 08:00 Dose: 0.5 mg Famotidine (Pepcid) 20 mg IVP Q12H [facility] Stop: 06/24/17 09:14 Last Admin: 04/28/17 21:15 Dose: 20 mg Multivitamins/Minerals 10 ml/Dextrose/ Amino Acids/Electrolytes/ Fat Emulsion Intravenous 2,400 mls @ 100 mls/hr IV .Q24H [facility] Stop: 06/23/17 15:59 Last Admin: 04/28/17 16:30 Dose: 100 mls/hr Dextrose/Sodium Chloride (D5-0.45ns) 1,000 mls @ 40 mls/hr IV .Q24H [facility] Stop: 06/23/17 15:59 Last Admin: 04/28/17 22:00 Dose: 40 mls/hr Linezolid (Zyvox) 600 mg in 300 mls @ 300 mls/hr IV Q12HR [facility] Stop: 06/23/17 22:59 Last Admin: 04/29/17 10:02 Dose: 300 mls/hr Fluconazole (Diflucan) 200 mg in 100 mls @ 100 mls/hr IV Q24HR [facility] Stop: 06/23/17 22:59 Last Admin: 04/28/17 23:00 Dose: 100 mls/hr Diltiazem HCl 125 mg/ Dextrose 125 mls @ 10 mls/hr IV TITR [facility]AN; 10 MG/HR PRN Reason: Protocol Stop: 06/24/17 12:41 Last Admin: 04/29/17 09:00 Dose: 20 mg/hr, 20 mls/hr Meropenem 1 gm/ Sodium (Chloride) 100 mls @ 100 mls/hr IV Q12HR [facility] Stop: 06/26/17 11:59 Last Admin: 04/28/17 21:00 Dose: 100 mls/hr Insulin Aspart (Novolog Insulin Sliding Scale) 0 units SUBQ Q6HR [facility] PRN Reason: Protocol Stop: 06/16/17 17:59 Last Admin: 04/29/17 06:00 Dose: 2 units Lorazepam (Ativan) 1 mg IVP Q4HR PRN; Protocol PRN Reason: Agitation Stop: 06/25/17 10:40 Last Admin: 04/29/17 10:01 Dose: 1 mg Metoprolol Tartrate (Lopressor) 25 mg PO BID [facility] Stop: 06/26/17 08:59 Last Admin: 04/29/17 10:03 Dose: 25 mg Miscellaneous (Probiotic Screen) 1 [facility] PRN PRN PRN Reason: PROTOCOL Stop: 06/14/17 09:39 Miscellaneous (Clinical Monitoring) 1 [facility] DAILY PRN PRN Reason: RENAL Stop: 06/15/17 12:48 Miscellaneous (Tpn Per Pharmacy) 1 [facility] PRN PRN PRN Reason: PROTOCOL Stop: 06/16/17 12:28 Morphine Sulfate (Morphine) 4 mg IVP Q2HR PRN PRN Reason: Pain (Moderate) Stop: 06/15/17 10:53 Last Admin: 04/29/17 11:23 Dose: 4 mg Ondansetron HCl (Zofran) 4 mg IVP Q6H PRN PRN Reason: Nausea / Vomiting Stop: 06/13/17 20:08 Last Admin: 04/25/17 21:06 Dose: 4 mg General: no acute distress, well developed, well nourished HEENT: atraumatic, normocephalic Neck: supple, thyromegaly Cardiovascular: S1S2, regular Lungs: clear to auscultation bilaterally, clear to percussion Abdomen: soft, distended, no tender, no mass Extremities: no cyanosis, no clubbing, no edema Neurological: other (confused.) - Procedures Procedures: Procedures Procedure Code Date BYPASS SIGMOID COLON TO CUTANEOUS, OPEN APPROACH [id number] 04/14/17 PARTIAL REMOVAL OF COLON 26636 04/14/17 RESECTION OF SIGMOID COLON, OPEN APPROACH [id number] 04/14/17 RESPIRATORY VENTILATION, 24-96 CONSECUTIVE HOURS [id number] 04/14/17 VENT MGMT INPAT INIT DAY 07085 04/14/17 Infectious Disease Assmt/Plan - Problem List Patient Problems: All Active Problems Abscess of sigmoid colon due to diverticulitis (Acute) K57.20 Diverticulitis of sigmoid colon (Acute) K57.32 Obesity (Acute) E66.9 Perforation of sigmoid colon due to diverticulitis (Acute) K57.20 Peritonitis (acute) generalized (Acute) K65.0 - Assessment Assessment: 1. Sepsis. febrile. 2. Diverticulitis, sigmoid diverticula to with support complicated by multiple abscesses and peritonitis. 3. Post operatively, on ventilator. 4. Peritonitis. Likely polymicrobial. 5. History of asthma. 6. History of arthritis. 7. Distended abdomen likely post operative ileus. Rule out small bowel obstruction. 8. SEKOU. 9. Post op, paralytic ileus. improved. 10. Wrist cellulitis, worse on left with destruction of bones. X ray of the left wrist suggested osteomyelitis. 11. Wound dehiscence. Plan: Continue Zyvox iv, merrem and diflucan. Nutritional Asmnt/Malnutr-PDOC - Dietary Evaluation Malnutrition Findings (Please click <Entered> for more info): Nutritional Asmnt/Malnutrition Start: 04/19/17 14: 21 Text: Status: Complete Freq: Document 04/19/17 14:21 GSUN (Rec: 04/19/17 14:58 [id number]) Nutritional Asmnt/Malnutrition Patient General Information Nutritional Screening Moderate Risk Screening Diagnosis Sepsis, diverticulitis, peritonitis Pertinent Medical Hx/Surgical Hx Asthma, diverticulosis Subjective Information 56 year old male frome home. Pt was restless, moving extremities during visit. 04/14 : sigmoid colectomy, end colostomy, abscess drainage, diffuse peritontis. 04/16: pt started PPN. 04/17: central line and started on TPN. Spoke to family at bedside, explained parenteral nutrition , family undersoto and has no further question at this time. Weight discrepancies noted in EMR, family does not know UBW , estimated nutritional needs based Current Diet Order/ Nutrition Support TPN D10% AA4.25% at 90ml/hr with IL20% 150ml, providing 1401.6kcal Pertinent Medications Dilaudid, Novolog, Culturelle, Magnesium Sulfate, Vancomycin , TPN, Morphine, Multivitamins , Zofran, Protonix, Nacl0.9% Pertinent Labs 04/14: triglycerides 106, total bilirubin 1.1H, glucose 116H 04/17: magnesium 2.5, phsophorus 3.2 04/19: magnesium 1.8L, phosphorus 2.4L, BUN 28H, creatinine 1.3, glucose 154H, total bilirubin 1.1H, triglycerides 238H Nutritional Hx/Data Height 1.7 m Height (Calculated Centimeters) 170.2 Current Weight (lbs) 95.254 kg Weight (Calculated Kilograms) 95.3 Weight (Calculated Grams) 11407.4 [place] Body Weight 148 Weight Status Overweight GI Symptoms Skin Integrity/Comment: [place] 14. Facial non-pitting 1+, bilateral hands pitting 1+ Estimated Nutritional Goals Calories/Kcals/Kg IBW 148/67.3kg Kcals Calculated 2019-2356kcal (30-35kcal/kg) Protein Calculated 101-135g (1.5-2g/kg) Fluid: ml Per MD Nutritional Problem 1. Problem Problem Altered GI function related to Etiology abscess and perforation of sigmoid colon due to diverticulitis aeb Signs/Symptoms: post-operative, on TPN Intervention/Recommendation Comments 1. Recommend TPN D15% AA5.5% at 100ml/hr with IL20% 150ml, providing 2400ml total volume, 2052kcal, 132g protein, meeting 100% of estimated nutritional needs. Carb load 2 .6mg/kg/min (using 210lb adm weight). 2. Monitor for possible refeeding syndrome, 04/18: phsophorus 2.1L, 04/19: magnesium 1.9. 3. Monitor triglycerides, total bilirubin, glucose, renal labs. Expected Outcomes/Goals Expected Outcomes/Goals 1. Pt to meet 100% of estimated nutritional needs on TPN.
--- NOTE | 2017-04-29 14:11 | General Progress Note ---
Subjective - Review of Systems Service Date: 04/29/17 Events since last encounter: for Dr. STAFFORD sinus tach, on Cardizen drip urine output good colostomy functioning on wound vac Objective - Results Result Diagrams: 04/29/17 07:16 04/29/17 07:16 Recent Labs: Laboratory Last Values WBC 10.6 Th/cmm (4.8-10.8) 04/29/17 07:16 RBC 3.17 Mil/cmm (4.30-5.70) L 04/29/17 07:16 Hgb 8.4 gm/dL (13.2-17.3) L 04/29/17 07:16 Hct 24.9 % (39.0-49.0) L 04/29/17 07:16 MCV 78.6 fl (80-99) L 04/29/17 07:16 MCH 26.4 pg (26.0-30.0) 04/29/17 07:16 MCHC Differential 33.6 pg (28.0-36.0) 04/29/17 07:16 RDW 14.5 % (11.5-20.0) 04/29/17 07:16 Plt Count 491 Th/cmm (150-400) H 04/29/17 07:16 MPV 8.2 fl 04/29/17 07:16 Neutrophils % 78.0 % (40.0-80.0) 04/29/17 07:16 Band Neutrophils % 3 % (0-10) 04/28/17 06:08 Lymphocytes % 9.3 % (20.0-50.0) L 04/29/17 07:16 Monocytes % 7.2 % (2.0-10.0) 04/29/17 07:16 Eosinophils % 4.6 % (0.0-5.0) 04/29/17 07:16 Basophils % 0.9 % (0.0-2.0) 04/29/17 07:16 Neutrophils (Manual) 73 % (40-80) 04/28/17 06:08 Lymphocytes 9 % (20-50) L 04/28/17 06:08 Monocytes 9 % (2-10) 04/28/17 06:08 Eosinophils 6 % (0-5) H 04/28/17 06:08 Metamyelocytes 1 % (0-0) H 04/22/17 05:04 Platelet Estimate INCREASED PLATELETS (NORMAL) 04/28/17 06:08 Platelet Morphology NORMAL (NORMAL) 04/28/17 06:08 Anisocytosis 1+ 04/28/17 06:08 Microcytosis 1+ 04/28/17 06:08 RBC Morph Micro Appear ABNORMAL (NORMAL) 04/28/17 06:08 ESR > 140 mm/hr (0-20) H 04/20/17 07:00 PT 11.9 SECONDS (9.5-11.5) H 04/24/17 21:19 INR 1.13 (0.5-1.4) 04/24/17 21:19 PTT (Actin FS) 27.6 SECONDS (26.0-38.0) 04/24/17 21:19 Specimen Source Arterial 04/25/17 10:00 Sample Site Left Radial 04/25/17 10:00 pH 7.48 (7.35-7.45) H 04/25/17 10:00 pCO2 32.0 mmHg (35.0-45.0) L 04/25/17 10:00 pO2 123.0 mmHg (80.0-100.0) H 04/25/17 10:00 HCO3 25.7 mEq/L (20.0-26.0) 04/25/17 10:00 Base Excess 0.9 mEq/L (-3.0-3.0) 04/25/17 10:00 O2 Saturation 99.0 % (92.0-100.0) 04/25/17 10:00 Chau Test Positive 04/25/17 10:00 Vent Rate NA 04/19/17 09:00 Inspired O2 28 04/25/17 10:00 Tidal Volume NA 04/19/17 09:00 PEEP NA 04/19/17 09:00 Pressure (ins/psv/peep) NA 04/19/17 09:00 Critical Value PING 04/25/17 10:00 Sodium 131 mEq/L (136-145) L 04/29/17 07:16 Potassium 3.7 mEq/L (3.5-5.1) 04/29/17 07:16 Chloride 99 mEq/L (98-107) 04/29/17 07:16 Carbon Dioxide 26.6 mEq/L (21.0-31.0) 04/29/17 07:16 Anion Gap 9.1 (7.0-16.0) 04/29/17 07:16 BUN 26 mg/dL (7-25) H 04/29/17 07:16 Creatinine 1.4 mg/dL (0.7-1.3) H 04/29/17 07:16 Est GFR ( Amer) > 60.0 ml/min (>90) 04/29/17 07:16 Est GFR (Non-Af Amer) 55.5 ml/min 04/29/17 07:16 BUN/Creatinine Ratio 18.6 04/29/17 07:16 Glucose 218 mg/dL (70-105) H 04/29/17 07:16 POC Glucose 204 MG/DL (70 - 105) H 04/29/17 13:57 Hemoglobin A1c % 6.7 % (4.0-6.0) H 04/22/17 05:04 Whole Bld Lactic Acid 1.30 mmol/L (0.60-1.99) 04/24/17 21:19 Uric Acid 3.6 mg/dL (4.4-7.6) L 04/20/17 07:00 Calcium 8.6 mg/dL (8.6-10.3) 04/29/17 07:16 Phosphorus 4.2 mg/dL (2.5-5.0) 04/29/17 07:16 Magnesium 2.0 mg/dL (1.9-2.7) 04/29/17 07:16 Total Bilirubin 0.7 mg/dL (0.3-1.0) 04/29/17 07:16 AST 34 U/L (13-39) 04/29/17 07:16 ALT 17 U/L (7-52) 04/29/17 07:16 Alkaline Phosphatase 88 U/L (34-104) 04/29/17 07:16 Creatine Kinase 136 U/L (30-223) 04/14/17 14:55 Troponin I 0.01 ng/mL (0.01-0.05) 04/22/17 05:04 C-Reactive Protein 28.9 mg/dL (0.0-0.9) H 04/20/17 07:00 B-Natriuretic Peptide 85.5 pg/mL (5.0-100.0) 04/14/17 14:55 Total Protein 7.1 gm/dL (6.0-8.3) 04/29/17 07:16 Albumin 2.5 gm/dL (4.2-5.5) L 04/29/17 07:16 Globulin 4.6 gm/dL 04/29/17 07:16 Albumin/Globulin Ratio 0.5 (1.0-1.8) L 04/29/17 07:16 Prealbumin 9 mg/dL (10-36) L 04/27/17 04:30 Triglycerides 252 mg/dL (<150) H 04/24/17 05:30 Cholesterol 78 mg/dL (<200) 04/27/17 04:30 LDL Cholesterol Direct 38 mg/dL (75-193) L 04/14/17 14:55 HDL Cholesterol 13 mg/dL (23-92) L 04/14/17 14:55 Amylase 31 U/L (29-103) 04/14/17 14:55 Lipase 15 U/L (11-82) 04/14/17 14:55 Urine Source [place] 04/25/17 07:35 Urine Color YELLOW 04/25/17 07:35 Urine Clarity CLEAR (CLEAR) 04/25/17 07:35 Urine pH 5.5 04/25/17 07:35 Ur Specific [place] 1.015 (1.005-1.030) 04/25/17 07:35 Urine Protein TRACE mg/dL (NEGATIVE) 04/25/17 07:35 Urine Glucose (UA) NEGATIVE mg/dL (NEGATIVE) 04/25/17 07:35 Urine Ketones NEGATIVE mg/dL (NEGATIVE) 04/25/17 07:35 Urine Blood SMALL (NEGATIVE) H 04/25/17 07:35 Urine Nitrate NEGATIVE (NEGATIVE) 04/25/17 07:35 Urine Bilirubin NEGATIVE (NEGATIVE) 04/25/17 07:35 Urine Urobilinogen 0.2 E.U./dL (0.2 - 1.0) 04/25/17 07:35 Ur Leukocyte Esterase NEGATIVE (NEGATIVE) 04/25/17 07:35 Urine RBC 0-2 /hpf (0-5) H 04/25/17 07:35 Urine WBC 0-2 /hpf (0-5) 04/25/17 07:35 Ur Epithelial Cells OCCASIONAL /lpf (FEW) 04/25/17 07:35 Amorphous Sediment MANY URATES (NONE SEEN) 04/14/17 15:05 Urine Bacteria FEW /hpf (NONE SEEN) 04/25/17 07:35 Vancomycin Trough 13.5 ug/mL (10-20) 04/19/17 19:20 Blood Type O POSITIVE 04/28/17 14:35 Antibody Screen NEGATIVE 04/28/17 14:35 Crossmatch See Detail 04/28/17 14:35 - Physical Exam Vitals and I&O: Vital Signs Temp 98.3 F 04/29/17 08:00 Pulse 135 04/29/17 13:15 Resp 36 04/29/17 13:45 BP 132/58 04/29/17 13:15 Pulse Ox 100 04/29/17 13:45 Intake & Output 04/28/17 04/29/17 04/29/17 18:59 06:59 18:59 Intake Total 3525 2941.75 100 Output Total 1418 1505 Balance 2107 1436.75 100 Weight (lbs) 99.79 kg 100.244 kg Intake: Intake, IV Amount 2925 1741.75 100 D5-0.45NS 1,000 ml @ 40 1000 mls/hr IV .Q24H [facility] Rx#: [id number] Diltiazem 125 mg In 125 241.75 Dextrose 5% 100 ml @ 10 MG/HR 10 mls/hr IV TITR [facility] Rx#:[id number] Fluconazole 200mg/100mL 100 200 mg In 100 ml @ 100 mls/hr IV Q24HR [facility] Rx#: [id number] Linezolid 600mg/300mL 600 300 300 mg In 300 ml @ 300 mls/ hr IV Q12HR [facility] Rx#: [id number] Meropenem 1 gm In Sodium 100 100 100 Chloride 0.9% 100 ml @ 100 mls/hr IV Q12HR [facility] Rx#:[id number] Multivitamin Inj 10 ml In 2400 Dextrose 70% 1,740 ml In Amino Acids 10% 500 ml In Intralipids 20% 150 ml @ 100 mls/hr IV .Q24H [facility] Rx#:[id number] TPN/PPN 600 1200 Output: Gastric Drainage 50 100 Drainage 8 5 Left Lower Abdomen 8 Right Lower Abdomen 0 5 Urine 1350 1400 Stool 10 Other: # Bowel Movements 1 Stool Characteristics Liquid Liquid Liquid Brown Brown Active Medications: Current Medications Acetaminophen (Tylenol) 650 mg PO Q6H PRN PRN Reason: FEVER/PAIN Stop: 06/21/17 17:45 Last Admin: 04/29/17 04:45 Dose: 650 mg Albuterol/Ipratropium (Duoneb Neb) 3 ml HHN Q4HRT [facility] Stop: 06/15/17 14:59 Last Admin: 04/29/17 11:29 Dose: 3 ml Amiodarone HCl (Cordarone) 200 mg NG BID [facility] Stop: 06/24/17 23:14 Last Admin: 04/29/17 10:09 Dose: 200 mg Budesonide (Pulmicort) 0.5 mg HHN BIDRT [facility] Stop: 06/15/17 18:59 Last Admin: 04/29/17 08:00 Dose: 0.5 mg Famotidine (Pepcid) 20 mg IVP Q12H [facility] Stop: 06/24/17 09:14 Last Admin: 04/28/17 21:15 Dose: 20 mg Multivitamins/Minerals 10 ml/Dextrose/ Amino Acids/Electrolytes/ Fat Emulsion Intravenous 2,400 mls @ 100 mls/hr IV .Q24H [facility] Stop: 06/23/17 15:59 Last Admin: 04/28/17 16:30 Dose: 100 mls/hr Dextrose/Sodium Chloride (D5-0.45ns) 1,000 mls @ 40 mls/hr IV .Q24H [facility] Stop: 06/23/17 15:59 Last Admin: 04/28/17 22:00 Dose: 40 mls/hr Linezolid (Zyvox) 600 mg in 300 mls @ 300 mls/hr IV Q12HR [facility] Stop: 06/23/17 22:59 Last Admin: 04/29/17 10:02 Dose: 300 mls/hr Fluconazole (Diflucan) 200 mg in 100 mls @ 100 mls/hr IV Q24HR [facility] Stop: 06/23/17 22:59 Last Admin: 04/28/17 23:00 Dose: 100 mls/hr Diltiazem HCl 125 mg/ Dextrose 125 mls @ 10 mls/hr IV TITR [facility]; 10 MG/HR PRN Reason: Protocol Stop: 06/24/17 12:41 Last Admin: 04/29/17 09:00 Dose: 20 mg/hr, 20 mls/hr Meropenem 1 gm/ Sodium (Chloride) 100 mls @ 100 mls/hr IV Q12HR [facility] Stop: 06/26/17 11:59 Last Infusion: 04/29/17 10:29 Dose: Infused Insulin Aspart (Novolog Insulin Sliding Scale) 0 units SUBQ Q6HR [facility] PRN Reason: Protocol Stop: 06/16/17 17:59 Last Admin: 04/29/17 13:59 Dose: 4 units Lorazepam (Ativan) 1 mg IVP Q4HR PRN; Protocol PRN Reason: Agitation Stop: 06/25/17 10:40 Last Admin: 04/29/17 10:01 Dose: 1 mg Metoprolol Tartrate (Lopressor) 25 mg PO BID [facility] Stop: 06/26/17 08:59 Last Admin: 04/29/17 10:03 Dose: 25 mg Miscellaneous (Probiotic Screen) 1 [facility] PRN PRN PRN Reason: PROTOCOL Stop: 06/14/17 09:39 Miscellaneous (Clinical Monitoring) 1 [facility] DAILY PRN PRN Reason: RENAL Stop: 06/15/17 12:48 Miscellaneous (Tpn Per Pharmacy) 1 [facility] PRN PRN PRN Reason: PROTOCOL Stop: 06/16/17 12:28 Morphine Sulfate (Morphine) 4 mg IVP Q2HR PRN PRN Reason: Pain (Moderate) Stop: 06/15/17 10:53 Last Admin: 04/29/17 11:23 Dose: 4 mg Ondansetron HCl (Zofran) 4 mg IVP Q6H PRN PRN Reason: Nausea / Vomiting Stop: 06/13/17 20:08 Last Admin: 04/25/17 21:06 Dose: 4 mg General: Alert, Mild distress HEENT: Atraumatic, PERRLA, EOMI, Mucous membr. moist/pink, Other Neck: Supple, +2 carotid pulse wo bruit Cardiovascular: Regular rate, Normal S1, Normal S2 Lungs: Other (diffuse rhonchi.) Abdomen: Soft, Distended, Other ( wound VAC anterior abdominal wall wound. L colostomy+) Extremities: Other (no edema and cyanosis.) Neurological: Reflexes 2+, Other (patient is confused and agitated.) Psych/Mental Status: Other (gets agitated at times.) - Procedures Procedures: Procedures Procedure Code Date BYPASS SIGMOID COLON TO CUTANEOUS, OPEN APPROACH [id number] 04/14/17 PARTIAL REMOVAL OF COLON 27426 04/14/17 RESECTION OF SIGMOID COLON, OPEN APPROACH [id number] 04/14/17 RESPIRATORY VENTILATION, 24-96 CONSECUTIVE HOURS [id number] 04/14/17 VENT MGMT INPAT INIT DAY 90743 04/14/17 Assessment/Plan - Problem List Patient Problems: All Active Problems Abscess of sigmoid colon due to diverticulitis (Acute) K57.20 Diverticulitis of sigmoid colon (Acute) K57.32 Obesity (Acute) E66.9 Perforation of sigmoid colon due to diverticulitis (Acute) K57.20 Peritonitis (acute) generalized (Acute) K65.0 Nutritional Asmnt/Malnutr-PDOC - Dietary Evaluation Malnutrition Findings (Please click <Entered> for more info): Nutritional Asmnt/Malnutrition Start: 04/19/17 14: 21 Text: Status: Complete Freq: Document 04/19/17 14:21 GSUN (Rec: 04/19/17 14:58 [id number]) Nutritional Asmnt/Malnutrition Patient General Information Nutritional Screening Moderate Risk Screening Diagnosis Sepsis, diverticulitis, peritonitis Pertinent Medical Hx/Surgical Hx Asthma, diverticulosis Subjective Information 56 year old male frome home. Pt was restless, moving extremities during visit. 04/14 : sigmoid colectomy, end colostomy, abscess drainage, diffuse peritontis. 04/16: pt started PPN. 04/17: central line and started on TPN. Spoke to family at bedside, explained parenteral nutrition , family undersoto and has no further question at this time. Weight discrepancies noted in EMR, family does not know UBW , estimated nutritional needs based Current Diet Order/ Nutrition Support TPN D10% AA4.25% at 90ml/hr with IL20% 150ml, providing 1401.6kcal Pertinent Medications Dilaudid, Novolog, Culturelle, Magnesium Sulfate, Vancomycin , TPN, Morphine, Multivitamins , Zofran, Protonix, Nacl0.9% Pertinent Labs 04/14: triglycerides 106, total bilirubin 1.1H, glucose 116H 04/17: magnesium 2.5, phsophorus 3.2 04/19: magnesium 1.8L, phosphorus 2.4L, BUN 28H, creatinine 1.3, glucose 154H, total bilirubin 1.1H, triglycerides 238H Nutritional Hx/Data Height 1.7 m Height (Calculated Centimeters) 170.2 Current Weight (lbs) 95.254 kg Weight (Calculated Kilograms) 95.3 Weight (Calculated Grams) 05854.4 [place] Body Weight 148 Weight Status Overweight GI Symptoms Skin Integrity/Comment: [place] 14. Facial non-pitting 1+, bilateral hands pitting 1+ Estimated Nutritional Goals Calories/Kcals/Kg IBW 148/67.3kg Kcals Calculated 2018-2356kcal (30-35kcal/kg) Protein Calculated 101-135g (1.5-2g/kg) Fluid: ml Per MD Nutritional Problem 1. Problem Problem Altered GI function related to Etiology abscess and perforation of sigmoid colon due to diverticulitis aeb Signs/Symptoms: post-operative, on TPN Intervention/Recommendation Comments 1. Recommend TPN D15% AA5.5% at 100ml/hr with IL20% 150ml, providing 2400ml total volume, 2052kcal, 132g protein, meeting 100% of estimated nutritional needs. Carb load 2 .6mg/kg/min (using 210lb adm weight). 2. Monitor for possible refeeding syndrome, 04/18: phsophorus 2.1L, 04/19: magnesium 1.9. 3. Monitor triglycerides, total bilirubin, glucose, renal labs. Expected Outcomes/Goals Expected Outcomes/Goals 1. Pt to meet 100% of estimated nutritional needs on TPN.
--- NOTE | 2017-04-29 14:48 | Progress Notes ---
DATE: 04/29/2017 PROBLEM LIST: 1. Recurrent respiratory failure. 2. Septicemia. 3. Peritonitis. 4. Obstructive sleep apnea syndrome. 5. Status post abdominal surgery with peritonitis. SYMPTOMS: The patient is quite restless, was tachypneic, and had to put back on BiPAP. PHYSICAL EXAMINATION: VITAL SIGNS: Temperature is around 99, heart rate 130-140, blood pressure 132/82, saturation 99% on 30% of oxygen. NECK: Neck veins not visualized. CHEST: Shows diminished air entry with occasional psychiatric secretary noise. 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 EXTREMITIES: Slight guarding. LABORATORY DATA: White count is 10.6. Eelectrolytes are okay with creatinine 1.4, BUN is 20. ASSESSMENT: The patient clinically status quo, quite encephalopathic, be most probably related to the sepsis, still persistent, complicated by obstructive sleep apnea syndrome. PLANS AND SUGGESTIONS: Discussed with RN. We will continue current treatment. We will follow through the blood gases and chest x-ray and go from there. JOB# [id number]
[2017-04-29] MEDS: TPN 10%-70% CUSTOM IV SCH (17:12)
[2017-04-29] MEDS: Fluconazole 200mg/100mL 200 MG/100 ML BAG IV SCH (22:42)
[2017-04-30] MEDS: Albuterol/Ipratropium Neb 3 ML AERS HHN SCH ×6 (02:24→23:12)
[2017-04-30] MEDS: Morphine Sulfate 4 mg/mL 1mL Syr IVP PRN ×2 (02:42→18:17)
[2017-04-30 05:01] LABS: % BASOPHILS 1.2 % (0.0-2.0); % EOSINOPHILS 5.2 % (0.0-5.0); % LYMPHOCYTES 12.1 % (20.0-50.0); % MONOCYTES 7.7 % (2.0-10.0); % NEUTROPHILS 73.8 % (40.0-80.0); HEMATOCRIT 24.3 % (39.0-49.0); HEMOGLOBIN 8.2 gm/dL (13.2-17.3); MEAN CELL VOLUME 78.2 fl (80-99); MEAN CORPUSCULAR HEMOGLOBIN 26.3 pg (26.0-30.0); MEAN CORPUSCULAR HGB CONC 33.6 pg (28.0-36.0); NEUTROPHILE ABSOLUTE 7.2 Th/cmm (1.8-8.0); PLATELET COUNT 506 Th/cmm (150-400); RED BLOOD COUNT 3.11 Mil/cmm (4.30-5.70); RED CELL DISTRIBUTION WIDTH 14.8 % (11.5-20.0); WHITE BLOOD COUNT 9.8 Th/cmm (4.8-10.8)
[2017-04-30 05:18] LABS: ALB/GLOB RATIO 0.5 (1.0-1.8); ALKALINE PHOSPHATASE 100 U/L (34-104); ANION GAP 9.3 (7.0-16.0); BILIRUBIN,TOTAL 0.5 mg/dL (0.3-1.0); BUN - UREA NITROGEN 24 mg/dL (7-25); CALCIUM SERUM 8.8 mg/dL (8.6-10.3); CARBON DIOXIDE 31.9 mEq/L (21.0-31.0); CHLORIDE 99 mEq/L (98-107); CREATININE - SERUM 1.2 mg/dL (0.7-1.3); GLUCOSE 166 mg/dL (70-105); PHOSPHOROUS 3.3 mg/dL (2.5-5.0); POTASSIUM SERUM 4.2 mEq/L (3.5-5.1); SGOT 39 U/L (13-39); SGPT/ALT 19 U/L (7-52); SODIUM SERUM 136 mEq/L (136-145)
[2017-04-30] MEDS: INSULIN ASPART SLIDING SCALE 100 UNITS/ML UNIT SUBQ SCH ×3 (06:02→18:35)
[2017-04-30] MEDS: Budesonide 0.5 Mg/2 mL Ud HHN SCH ×2 (06:28→18:58)
[2017-04-30 08:21] LABS: ABG SOURCE Arterial; ALLEN TEST YES; BE(B) 11.5 mEq/L (-3.0-3.0); FIO2 28; HCO3 33.9 mEq/L (20.0-26.0); pH 7.51 (7.35-7.45)
[2017-04-30] MEDS: Linezolid 600mg/300mL 600 MG/300 ML BAG IV SCH ×2 (09:08→20:57)
--- NOTE | 2017-04-30 09:11 | General Progress Note ---
Subjective - Review of Systems Subjective: Patient is seen and examined. Patient is MICU bed and 10. The patient's family at bedside. Status post blood transfusion yesterday. Patient's hemoglobin is 8.5. Patient's back on BiPAP for now since respiratory rate increases to 30+. Patient's family are concerned about his waxing and waning hospital course. I did discuss with them about patient's a treatment plan . Objective - Results Result Diagrams: 04/30/17 04:35 04/30/17 04:35 Recent Labs: Laboratory Last Values WBC 9.8 Th/cmm (4.8-10.8) 04/30/17 04:35 RBC 3.11 Mil/cmm (4.30-5.70) L 04/30/17 04:35 Hgb 8.2 gm/dL (13.2-17.3) L 04/30/17 04:35 Hct 24.3 % (39.0-49.0) L 04/30/17 04:35 MCV 78.2 fl (80-99) L 04/30/17 04:35 MCH 26.3 pg (26.0-30.0) 04/30/17 04:35 MCHC Differential 33.6 pg (28.0-36.0) 04/30/17 04:35 RDW 14.8 % (11.5-20.0) 04/30/17 04:35 Plt Count 506 Th/cmm (150-400) H 04/30/17 04:35 MPV 8.0 fl 04/30/17 04:35 Neutrophils % 73.8 % (40.0-80.0) 04/30/17 04:35 Band Neutrophils % 3 % (0-10) 04/28/17 06:08 Lymphocytes % 12.1 % (20.0-50.0) L 04/30/17 04:35 Monocytes % 7.7 % (2.0-10.0) 04/30/17 04:35 Eosinophils % 5.2 % (0.0-5.0) H 04/30/17 04:35 Basophils % 1.2 % (0.0-2.0) 04/30/17 04:35 Neutrophils (Manual) 73 % (40-80) 04/28/17 06:08 Lymphocytes 9 % (20-50) L 04/28/17 06:08 Monocytes 9 % (2-10) 04/28/17 06:08 Eosinophils 6 % (0-5) H 04/28/17 06:08 Metamyelocytes 1 % (0-0) H 04/22/17 05:04 Platelet Estimate INCREASED PLATELETS (NORMAL) 04/28/17 06:08 Platelet Morphology NORMAL (NORMAL) 04/28/17 06:08 Anisocytosis 1+ 04/28/17 06:08 Microcytosis 1+ 04/28/17 06:08 RBC Morph Micro Appear ABNORMAL (NORMAL) 04/28/17 06:08 ESR > 140 mm/hr (0-20) H 04/20/17 07:00 PT 11.9 SECONDS (9.5-11.5) H 04/24/17 21:19 INR 1.13 (0.5-1.4) 04/24/17 21:19 PTT (Actin FS) 27.6 SECONDS (26.0-38.0) 04/24/17 21:19 Specimen Source Arterial 04/30/17 08:15 Sample Site Right Radial 04/30/17 08:15 pH 7.51 (7.35-7.45) H 04/30/17 08:15 pCO2 45.0 mmHg (35.0-45.0) 04/30/17 08:15 pO2 85.0 mmHg (80.0-100.0) 04/30/17 08:15 HCO3 33.9 mEq/L (20.0-26.0) H 04/30/17 08:15 Base Excess 11.5 mEq/L (-3.0-3.0) H 04/30/17 08:15 O2 Saturation 97.0 % (92.0-100.0) 04/30/17 08:15 Chau Test YES 04/30/17 08:15 Vent Rate NA 04/30/17 08:15 Inspired O2 28 04/30/17 08:15 Tidal Volume NA 04/30/17 08:15 PEEP NA 04/30/17 08:15 Pressure (ins/psv/peep) NA 04/30/17 08:15 Critical Value E.ROSEN 04/30/17 08:15 Sodium 136 mEq/L (136-145) 04/30/17 04:35 Potassium 4.2 mEq/L (3.5-5.1) 04/30/17 04:35 Chloride 99 mEq/L (98-107) 04/30/17 04:35 Carbon Dioxide 31.9 mEq/L (21.0-31.0) H 04/30/17 04:35 Anion Gap 9.3 (7.0-16.0) 04/30/17 04:35 BUN 24 mg/dL (7-25) 04/30/17 04:35 Creatinine 1.2 mg/dL (0.7-1.3) 04/30/17 04:35 Est GFR ( Amer) > 60.0 ml/min (>90) 04/30/17 04:35 Est GFR (Non-Af Amer) > 60.0 ml/min 04/30/17 04:35 BUN/Creatinine Ratio 20.0 04/30/17 04:35 Glucose 166 mg/dL (70-105) H 04/30/17 04:35 POC Glucose 259 MG/DL (70 - 105) H 04/29/17 23:23 Hemoglobin A1c % 6.7 % (4.0-6.0) H 04/22/17 05:04 Whole Bld Lactic Acid 1.30 mmol/L (0.60-1.99) 04/24/17 21:19 Uric Acid 3.6 mg/dL (4.4-7.6) L 04/20/17 07:00 Calcium 8.8 mg/dL (8.6-10.3) 04/30/17 04:35 Phosphorus 3.3 mg/dL (2.5-5.0) 04/30/17 04:35 Magnesium 2.0 mg/dL (1.9-2.7) 04/30/17 04:35 Total Bilirubin 0.5 mg/dL (0.3-1.0) 04/30/17 04:35 AST 39 U/L (13-39) 04/30/17 04:35 ALT 19 U/L (7-52) 04/30/17 04:35 Alkaline Phosphatase 100 U/L (34-104) 04/30/17 04:35 Ammonia 26 umol/L (16-53) 04/30/17 04:35 Creatine Kinase 136 U/L (30-223) 04/14/17 14:55 Troponin I 0.01 ng/mL (0.01-0.05) 04/22/17 05:04 C-Reactive Protein 28.9 mg/dL (0.0-0.9) H 04/20/17 07:00 B-Natriuretic Peptide 85.5 pg/mL (5.0-100.0) 04/14/17 14:55 Total Protein 7.2 gm/dL (6.0-8.3) 04/30/17 04:35 Albumin 2.4 gm/dL (4.2-5.5) L 04/30/17 04:35 Globulin 4.8 gm/dL 04/30/17 04:35 Albumin/Globulin Ratio 0.5 (1.0-1.8) L 04/30/17 04:35 Prealbumin 9 mg/dL (10-36) L 04/27/17 04:30 Triglycerides 252 mg/dL (<150) H 04/24/17 05:30 Cholesterol 78 mg/dL (<200) 04/27/17 04:30 LDL Cholesterol Direct 38 mg/dL (75-193) L 04/14/17 14:55 HDL Cholesterol 13 mg/dL (23-92) L 04/14/17 14:55 Amylase 31 U/L (29-103) 04/14/17 14:55 Lipase 15 U/L (11-82) 04/14/17 14:55 Urine Source [place] 04/25/17 07:35 Urine Color YELLOW 04/25/17 07:35 Urine Clarity CLEAR (CLEAR) 04/25/17 07:35 Urine pH 5.5 04/25/17 07:35 Ur Specific Tarzan 1.015 (1.005-1.030) 04/25/17 07:35 Urine Protein TRACE mg/dL (NEGATIVE) 04/25/17 07:35 Urine Glucose (UA) NEGATIVE mg/dL (NEGATIVE) 04/25/17 07:35 Urine Ketones NEGATIVE mg/dL (NEGATIVE) 04/25/17 07:35 Urine Blood SMALL (NEGATIVE) H 04/25/17 07:35 Urine Nitrate NEGATIVE (NEGATIVE) 04/25/17 07:35 Urine Bilirubin NEGATIVE (NEGATIVE) 04/25/17 07:35 Urine Urobilinogen 0.2 E.U./dL (0.2 - 1.0) 04/25/17 07:35 Ur Leukocyte Esterase NEGATIVE (NEGATIVE) 04/25/17 07:35 Urine RBC 0-2 /hpf (0-5) H 04/25/17 07:35 Urine WBC 0-2 /hpf (0-5) 04/25/17 07:35 Ur Epithelial Cells OCCASIONAL /lpf (FEW) 04/25/17 07:35 Amorphous Sediment MANY URATES (NONE SEEN) 04/14/17 15:05 Urine Bacteria FEW /hpf (NONE SEEN) 04/25/17 07:35 Vancomycin Trough 13.5 ug/mL (10-20) 04/19/17 19:20 Blood Type O POSITIVE 04/28/17 14:35 Antibody Screen NEGATIVE 04/28/17 14:35 Crossmatch See Detail 04/28/17 14:35 - Physical Exam Vitals and I&O: Vital Signs Temp 100.1 F 04/30/17 05:00 Pulse 125 04/30/17 07:00 Resp 31 04/30/17 07:00 BP 145/73 04/30/17 07:00 Pulse Ox 100 04/30/17 07:00 Intake & Output 04/29/17 04/30/17 04/30/17 18:59 06:59 18:59 Intake Total 4125 1825 Output Total 1508 1533 Balance 2617 292 Weight (lbs) 100.244 kg 101.179 kg Intake: Intake, IV Amount 2925 625 Diltiazem 125 mg In 125 125 Dextrose 5% 100 ml @ 10 MG/HR 10 mls/hr IV TITR [facility] Rx#:[id number] Fluconazole 200mg/100mL 100 200 mg In 100 ml @ 100 mls/hr IV Q24HR [facility] Rx#: [id number] Linezolid 600mg/300mL 600 300 300 mg In 300 ml @ 300 mls/ hr IV Q12HR [facility] Rx#: [id number] Meropenem 1 gm In Sodium 100 100 Chloride 0.9% 100 ml @ 100 mls/hr IV Q12HR [facility] Rx#:[id number] Multivitamin Inj 10 ml In 2400 Dextrose 70% 1,740 ml In Amino Acids 10% 500 ml In Intralipids 20% 150 ml @ 100 mls/hr IV .Q24H [facility] Rx#:[id number] Oral 0 TPN/PPN 1200 1200 Output: Gastric Drainage 100 100 Drainage 108 83 Left Lower Abdomen 55 50 Medial Abdomen 50 Right Lower Abdomen 3 33 Urine 1300 1300 Other 50 Other: # Bowel Movements 10 Stool Characteristics Liquid Liquid Brown Brown Active Medications: Current Medications Acetaminophen (Tylenol) 650 mg PO Q6H PRN PRN Reason: FEVER/PAIN Stop: 06/21/17 17:45 Last Admin: 04/30/17 04:31 Dose: 650 mg Albuterol/Ipratropium (Duoneb Neb) 3 ml HHN Q4HRT [facility] Stop: 06/15/17 14:59 Last Admin: 04/30/17 06:28 Dose: 3 ml Amiodarone HCl (Cordarone) 200 mg NG BID [facility] Stop: 06/24/17 23:14 Last Admin: 04/29/17 18:24 Dose: 200 mg Budesonide (Pulmicort) 0.5 mg HHN BIDRT [facility] Stop: 06/15/17 18:59 Last Admin: 04/30/17 06:28 Dose: 0.5 mg Famotidine (Pepcid) 20 mg IVP Q12H [facility] Stop: 06/24/17 09:14 Last Admin: 04/29/17 20:43 Dose: 20 mg Multivitamins/Minerals 10 ml/Dextrose/ Amino Acids/Electrolytes/ Fat Emulsion Intravenous 2,400 mls @ 100 mls/hr IV .Q24H [facility] Stop: 06/23/17 15:59 Last Admin: 04/29/17 17:12 Dose: 100 mls/hr Dextrose/Sodium Chloride (D5-0.45ns) 1,000 mls @ 40 mls/hr IV .Q24H [facility] Stop: 06/23/17 15:59 Last Admin: 04/28/17 22:00 Dose: 40 mls/hr Linezolid (Zyvox) 600 mg in 300 mls @ 300 mls/hr IV Q12HR [facility] Stop: 06/23/17 22:59 Last Admin: 04/30/17 09:08 Dose: 300 mls/hr Fluconazole (Diflucan) 200 mg in 100 mls @ 100 mls/hr IV Q24HR [facility] Stop: 06/23/17 22:59 Last Infusion: 04/29/17 23:45 Dose: Infused Diltiazem HCl 125 mg/ Dextrose 125 mls @ 10 mls/hr IV TITR [facility]; 10 MG/HR PRN Reason: Protocol Stop: 06/24/17 12:41 Last Admin: 04/30/17 02:02 Dose: 15 mg/hr, 15 mls/hr Meropenem 1 gm/ Sodium (Chloride) 100 mls @ 100 mls/hr IV Q12HR [facility] Stop: 06/26/17 11:59 Last Admin: 04/30/17 09:07 Dose: 100 mls/hr Insulin Aspart (Novolog Insulin Sliding Scale) 0 units SUBQ Q6HR [facility] PRN Reason: Protocol Stop: 06/16/17 17:59 Last Admin: 04/30/17 06:02 Dose: 2 units Lorazepam (Ativan) 1 mg IVP Q4HR PRN; Protocol PRN Reason: Agitation Stop: 06/25/17 10:40 Last Admin: 04/30/17 04:29 Dose: 1 mg Metoprolol Tartrate (Lopressor) 25 mg PO BID [facility] Stop: 06/26/17 08:59 Last Admin: 04/29/17 18:25 Dose: 25 mg Miscellaneous (Probiotic Screen) 1 [facility] PRN PRN PRN Reason: PROTOCOL Stop: 06/14/17 09:39 Miscellaneous (Clinical Monitoring) 1 [facility] DAILY PRN PRN Reason: RENAL Stop: 06/15/17 12:48 Miscellaneous (Tpn Per Pharmacy) 1 [facility] PRN PRN PRN Reason: PROTOCOL Stop: 06/16/17 12:28 Morphine Sulfate (Morphine) 4 mg IVP Q2HR PRN PRN Reason: Pain (Moderate) Stop: 06/15/17 10:53 Last Admin: 04/30/17 02:42 Dose: 4 mg Ondansetron HCl (Zofran) 4 mg IVP Q6H PRN PRN Reason: Nausea / Vomiting Stop: 06/13/17 20:08 Last Admin: 04/25/17 21:06 Dose: 4 mg General: Alert, Mild distress HEENT: Atraumatic, PERRLA, EOMI, Mucous membr. moist/pink, Other Neck: Supple, +2 carotid pulse wo bruit Cardiovascular: Regular rate, Normal S1, Normal S2 Lungs: Other (diffuse rhonchi.) Abdomen: Soft, Distended, Other ( wound VAC anterior abdominal wall wound. L colostomy+) Extremities: Other (no edema and cyanosis.) Neurological: Reflexes 2+, Other (patient is confused and agitated.) Psych/Mental Status: Other (gets agitated at times.) - Procedures Procedures: Procedures Procedure Code Date BYPASS SIGMOID COLON TO CUTANEOUS, OPEN APPROACH [id number] 04/14/17 PARTIAL REMOVAL OF COLON 53909 04/14/17 RESECTION OF SIGMOID COLON, OPEN APPROACH [id number] 04/14/17 RESPIRATORY VENTILATION, 24-96 CONSECUTIVE HOURS [id number] 04/14/[place] [address] 04/14/17 Assessment/Plan - Problem List Patient Problems: All Active Problems Abscess of sigmoid colon due to diverticulitis (Acute) K57.20 Diverticulitis of sigmoid colon (Acute) K57.32 Obesity (Acute) E66.9 Perforation of sigmoid colon due to diverticulitis (Acute) K57.20 Peritonitis (acute) generalized (Acute) K65.0 - Assessment Assessment: Current Active Problems Problem Status Onset Abscess of sigmoid colon due to diverticulitis Acute Diverticulitis of sigmoid colon Acute Obesity Acute Perforation of sigmoid colon due to diverticulitis Acute Peritonitis (acute) generalized Acute Perforated diverticulitis status post expiratory laparotomy and colostomy placement. Postoperative respiratory failure. Obesity. Polymicrobial peritonitis due to perforation.. Asthma. SVT currently on Cardizem drip Electrolyte imbalance. SEKOU improving. Encephalopathy due to metabolic and infectious etio. Open surgical wound . Altered mental status secondary to metabolic and infectious encephalopathy. Postop anemia. - Plan Plan: Wound Vac as per surgery. IVF and TPN. Correct electrolytes. IV antibiotics as per ID. Rate control. When necessary BiPAP. Monitor strict I's and O's. Continue oxygen, HHN and when necessary BiPAP. Pulmonary follow-up. GI and DVT prophylaxis. Follow-up lab. Colostomy care. Post op follow up as per surgery. Guarded prognosis. Follow up on consultants recommendations. Symptoms management. Medication management. Overall prognosis is guarded. Care plan discussed with RN and family. Nutritional Asmnt/Malnutr-PDOC - Dietary Evaluation Malnutrition Findings (Please click <Entered> for more info): Nutritional Asmnt/Malnutrition Start: 04/19/17 14: 21 Text: Status: Complete Freq: Document 04/19/17 14:21 GSUN (Rec: 04/19/17 14:58 [id number]) Nutritional Asmnt/Malnutrition Patient General Information Nutritional Screening Moderate Risk Screening Diagnosis Sepsis, diverticulitis, peritonitis Pertinent Medical Hx/Surgical Hx Asthma, diverticulosis Subjective Information 56 year old male frome home. Pt was restless, moving extremities during visit. 04/14 : sigmoid colectomy, end colostomy, abscess drainage, diffuse peritontis. 04/16: pt started PPN. 04/17: central line and started on TPN. Spoke to family at bedside, explained parenteral nutrition , family undersoto and has no further question at this time. Weight discrepancies noted in EMR, family does not know UBW , estimated nutritional needs based Current Diet Order/ Nutrition Support TPN D10% AA4.25% at 90ml/hr with IL20% 150ml, providing 1401.6kcal Pertinent Medications Dilaudid, Novolog, Culturelle, Magnesium Sulfate, Vancomycin , TPN, Morphine, Multivitamins , Zofran, Protonix, Nacl0.9% Pertinent Labs 04/14: triglycerides 106, total bilirubin 1.1H, glucose 116H 04/17: magnesium 2.5, phsophorus 3.2 04/19: magnesium 1.8L, phosphorus 2.4L, BUN 28H, creatinine 1.3, glucose 154H, total bilirubin 1.1H, triglycerides 238H Nutritional Hx/Data Height 1.7 m Height (Calculated Centimeters) 170.2 Current Weight (lbs) 95.254 kg Weight (Calculated Kilograms) 95.3 Weight (Calculated Grams) 46244.4 [place] Body Weight 148 Weight Status Overweight GI Symptoms Skin Integrity/Comment: [place] 14. Facial non-pitting 1+, bilateral hands pitting 1+ Estimated Nutritional Goals Calories/Kcals/Kg IBW 148/67.3kg Kcals Calculated 2018-6kcal (30-35kcal/kg) Protein Calculated 101-135g (1.5-2g/kg) Fluid: ml Per MD Nutritional Problem 1. Problem Problem Altered GI function related to Etiology abscess and perforation of sigmoid colon due to diverticulitis aeb Signs/Symptoms: post-operative, on TPN Intervention/Recommendation Comments 1. Recommend TPN D15% AA5.5% at 100ml/hr with IL20% 150ml, providing 2400ml total volume, 2052kcal, 132g protein, meeting 100% of estimated nutritional needs. Carb load 2 .6mg/kg/min (using 210lb adm weight). 2. Monitor for possible refeeding syndrome, 04/18: phsophorus 2.1L, 04/19: magnesium 1.9. 3. Monitor triglycerides, total bilirubin, glucose, renal labs. Expected Outcomes/Goals Expected Outcomes/Goals 1. Pt to meet 100% of estimated nutritional needs on TPN.
--- NOTE | 2017-04-30 09:19 | Diagnostic Imaging Report ---
Portable chest x-ray HISTORY: Shortness of breath Compared with the prior exam of April 25, 2017, the heart remains enlarged. No focal pulmonary processes. Old left rib fractures. Nasogastric tube extends into the gastric area. IMPRESSION: 1. New nasogastric tube extending into the region of the stomach 2. No acute focal pulmonary processes 3. Cardiomegaly
--- NOTE | 2017-04-30 09:43 | General Progress Note ---
Subjective - Review of Systems Service Date: 04/30/17 Events since last encounter: for Dr. Trevino off BIPAP clinically stable, sinus tach on Cardizem drip Objective - Results Result Diagrams: 04/30/17 04:35 04/30/17 04:35 Recent Labs: Laboratory Last Values WBC 9.8 Th/cmm (4.8-10.8) 04/30/17 04:35 RBC 3.11 Mil/cmm (4.30-5.70) L 04/30/17 04:35 Hgb 8.2 gm/dL (13.2-17.3) L 04/30/17 04:35 Hct 24.3 % (39.0-49.0) L 04/30/17 04:35 MCV 78.2 fl (80-99) L 04/30/17 04:35 MCH 26.3 pg (26.0-30.0) 04/30/17 04:35 MCHC Differential 33.6 pg (28.0-36.0) 04/30/17 04:35 RDW 14.8 % (11.5-20.0) 04/30/17 04:35 Plt Count 506 Th/cmm (150-400) H 04/30/17 04:35 MPV 8.0 fl 04/30/17 04:35 Neutrophils % 73.8 % (40.0-80.0) 04/30/17 04:35 Band Neutrophils % 3 % (0-10) 04/28/17 06:08 Lymphocytes % 12.1 % (20.0-50.0) L 04/30/17 04:35 Monocytes % 7.7 % (2.0-10.0) 04/30/17 04:35 Eosinophils % 5.2 % (0.0-5.0) H 04/30/17 04:35 Basophils % 1.2 % (0.0-2.0) 04/30/17 04:35 Neutrophils (Manual) 73 % (40-80) 04/28/17 06:08 Lymphocytes 9 % (20-50) L 04/28/17 06:08 Monocytes 9 % (2-10) 04/28/17 06:08 Eosinophils 6 % (0-5) H 04/28/17 06:08 Metamyelocytes 1 % (0-0) H 04/22/17 05:04 Platelet Estimate INCREASED PLATELETS (NORMAL) 04/28/17 06:08 Platelet Morphology NORMAL (NORMAL) 04/28/17 06:08 Anisocytosis 1+ 04/28/17 06:08 Microcytosis 1+ 04/28/17 06:08 RBC Morph Micro Appear ABNORMAL (NORMAL) 04/28/17 06:08 ESR > 140 mm/hr (0-20) H 04/20/17 07:00 PT 11.9 SECONDS (9.5-11.5) H 04/24/17 21:19 INR 1.13 (0.5-1.4) 04/24/17 21:19 PTT (Actin FS) 27.6 SECONDS (26.0-38.0) 04/24/17 21:19 Specimen Source Arterial 04/30/17 08:15 Sample Site Right Radial 04/30/17 08:15 pH 7.51 (7.35-7.45) H 04/30/17 08:15 pCO2 45.0 mmHg (35.0-45.0) 04/30/17 08:15 pO2 85.0 mmHg (80.0-100.0) 04/30/17 08:15 HCO3 33.9 mEq/L (20.0-26.0) H 04/30/17 08:15 Base Excess 11.5 mEq/L (-3.0-3.0) H 04/30/17 08:15 O2 Saturation 97.0 % (92.0-100.0) 04/30/17 08:15 Chau Test YES 04/30/17 08:15 Vent Rate NA 04/30/17 08:15 Inspired O2 28 04/30/17 08:15 Tidal Volume NA 04/30/17 08:15 PEEP NA 04/30/17 08:15 Pressure (ins/psv/peep) NA 04/30/17 08:15 Critical Value E.ROSEN 04/30/17 08:15 Sodium 136 mEq/L (136-145) 04/30/17 04:35 Potassium 4.2 mEq/L (3.5-5.1) 04/30/17 04:35 Chloride 99 mEq/L (98-107) 04/30/17 04:35 Carbon Dioxide 31.9 mEq/L (21.0-31.0) H 04/30/17 04:35 Anion Gap 9.3 (7.0-16.0) 04/30/17 04:35 BUN 24 mg/dL (7-25) 04/30/17 04:35 Creatinine 1.2 mg/dL (0.7-1.3) 04/30/17 04:35 Est GFR ( Amer) > 60.0 ml/min (>90) 04/30/17 04:35 Est GFR (Non-Af Amer) > 60.0 ml/min 04/30/17 04:35 BUN/Creatinine Ratio 20.0 04/30/17 04:35 Glucose 166 mg/dL (70-105) H 04/30/17 04:35 POC Glucose 259 MG/DL (70 - 105) H 04/29/17 23:23 Hemoglobin A1c % 6.7 % (4.0-6.0) H 04/22/17 05:04 Whole Bld Lactic Acid 1.30 mmol/L (0.60-1.99) 04/24/17 21:19 Uric Acid 3.6 mg/dL (4.4-7.6) L 04/20/17 07:00 Calcium 8.8 mg/dL (8.6-10.3) 04/30/17 04:35 Phosphorus 3.3 mg/dL (2.5-5.0) 04/30/17 04:35 Magnesium 2.0 mg/dL (1.9-2.7) 04/30/17 04:35 Total Bilirubin 0.5 mg/dL (0.3-1.0) 04/30/17 04:35 AST 39 U/L (13-39) 04/30/17 04:35 ALT 19 U/L (7-52) 04/30/17 04:35 Alkaline Phosphatase 100 U/L (34-104) 04/30/17 04:35 Ammonia 26 umol/L (16-53) 04/30/17 04:35 Creatine Kinase 136 U/L (30-223) 04/14/17 14:55 Troponin I 0.01 ng/mL (0.01-0.05) 04/22/17 05:04 C-Reactive Protein 28.9 mg/dL (0.0-0.9) H 04/20/17 07:00 B-Natriuretic Peptide 85.5 pg/mL (5.0-100.0) 04/14/17 14:55 Total Protein 7.2 gm/dL (6.0-8.3) 04/30/17 04:35 Albumin 2.4 gm/dL (4.2-5.5) L 04/30/17 04:35 Globulin 4.8 gm/dL 04/30/17 04:35 Albumin/Globulin Ratio 0.5 (1.0-1.8) L 04/30/17 04:35 Prealbumin 9 mg/dL (10-36) L 04/27/17 04:30 Triglycerides 252 mg/dL (<150) H 04/24/17 05:30 Cholesterol 78 mg/dL (<200) 04/27/17 04:30 LDL Cholesterol Direct 38 mg/dL (75-193) L 04/14/17 14:55 HDL Cholesterol 13 mg/dL (23-92) L 04/14/17 14:55 Amylase 31 U/L (29-103) 04/14/17 14:55 Lipase 15 U/L (11-82) 04/14/17 14:55 Urine Source [place] 04/25/17 07:35 Urine Color YELLOW 04/25/17 07:35 Urine Clarity CLEAR (CLEAR) 04/25/17 07:35 Urine pH 5.5 04/25/17 07:35 Ur Specific [place] 1.015 (1.005-1.030) 04/25/17 07:35 Urine Protein TRACE mg/dL (NEGATIVE) 04/25/17 07:35 Urine Glucose (UA) NEGATIVE mg/dL (NEGATIVE) 04/25/17 07:35 Urine Ketones NEGATIVE mg/dL (NEGATIVE) 04/25/17 07:35 Urine Blood SMALL (NEGATIVE) H 04/25/17 07:35 Urine Nitrate NEGATIVE (NEGATIVE) 04/25/17 07:35 Urine Bilirubin NEGATIVE (NEGATIVE) 04/25/17 07:35 Urine Urobilinogen 0.2 E.U./dL (0.2 - 1.0) 04/25/17 07:35 Ur Leukocyte Esterase NEGATIVE (NEGATIVE) 04/25/17 07:35 Urine RBC 0-2 /hpf (0-5) H 04/25/17 07:35 Urine WBC 0-2 /hpf (0-5) 04/25/17 07:35 Ur Epithelial Cells OCCASIONAL /lpf (FEW) 04/25/17 07:35 Amorphous Sediment MANY URATES (NONE SEEN) 04/14/17 15:05 Urine Bacteria FEW /hpf (NONE SEEN) 04/25/17 07:35 Vancomycin Trough 13.5 ug/mL (10-20) 04/19/17 19:20 Blood Type O POSITIVE 04/28/17 14:35 Antibody Screen NEGATIVE 04/28/17 14:35 Crossmatch See Detail 04/28/17 14:35 - Physical Exam Vitals and I&O: Vital Signs Temp 100.1 F 04/30/17 05:00 Pulse 125 04/30/17 09:20 Resp 31 04/30/17 07:00 BP 130/69 04/30/17 09:20 Pulse Ox 100 04/30/17 07:00 Intake & Output 04/29/17 04/30/17 04/30/17 18:59 06:59 18:59 Intake Total 4125 1825 109.5 Output Total 1508 1533 Balance 2617 292 109.5 Weight (lbs) 100.244 kg 101.179 kg Intake: Intake, IV Amount 2925 625 109.5 Diltiazem 125 mg In 125 125 109.5 Dextrose 5% 100 ml @ 10 MG/HR 10 mls/hr IV TITR ARIAN Rx#:[id number] Fluconazole 200mg/100mL 100 200 mg In 100 ml @ 100 mls/hr IV Q24HR ARIAN Rx#: [id number] Linezolid 600mg/300mL 600 300 300 mg In 300 ml @ 300 mls/ hr IV Q12HR [facility] Rx#: [id number] Meropenem 1 gm In Sodium 100 100 Chloride 0.9% 100 ml @ 100 mls/hr IV Q12HR [facility] Rx#:[id number] Multivitamin Inj 10 ml In 2400 Dextrose 70% 1,740 ml In Amino Acids 10% 500 ml In Intralipids 20% 150 ml @ 100 mls/hr IV .Q24H [facility] Rx#:[id number] Oral 0 TPN/PPN 1200 1200 Output: Gastric Drainage 100 100 Drainage 108 83 Left Lower Abdomen 55 50 Medial Abdomen 50 Right Lower Abdomen 3 33 Urine 1300 1300 Other 50 Other: # Bowel Movements 10 Stool Characteristics Liquid Liquid Brown Brown Active Medications: Current Medications Acetaminophen (Tylenol) 650 mg PO Q6H PRN PRN Reason: FEVER/PAIN Stop: 06/21/17 17:45 Last Admin: 04/30/17 04:31 Dose: 650 mg Albuterol/Ipratropium (Duoneb Neb) 3 ml HHN Q4HRT [facility] Stop: 06/15/17 14:59 Last Admin: 04/30/17 06:28 Dose: 3 ml Amiodarone HCl (Cordarone) 200 mg NG BID ARIAN Stop: 06/24/17 23:14 Last Admin: 04/29/17 18:24 Dose: 200 mg Budesonide (Pulmicort) 0.5 mg HHN BIDRT [facility]AN Stop: 06/15/17 18:59 Last Admin: 04/30/17 06:28 Dose: 0.5 mg Famotidine (Pepcid) 20 mg IVP Q12H [facility] Stop: 06/24/17 09:14 Last Admin: 04/30/17 09:40 Dose: 20 mg Multivitamins/Minerals 10 ml/Dextrose/ Amino Acids/Electrolytes/ Fat Emulsion Intravenous 2,400 mls @ 100 mls/hr IV .Q24H [facility] Stop: 06/23/17 15:59 Last Admin: 04/29/17 17:12 Dose: 100 mls/hr Dextrose/Sodium Chloride (D5-0.45ns) 1,000 mls @ 40 mls/hr IV .Q24H [facility] Stop: 06/23/17 15:59 Last Admin: 04/28/17 22:00 Dose: 40 mls/hr Linezolid (Zyvox) 600 mg in 300 mls @ 300 mls/hr IV Q12HR [facility] Stop: 06/23/17 22:59 Last Admin: 04/30/17 09:08 Dose: 300 mls/hr Fluconazole (Diflucan) 200 mg in 100 mls @ 100 mls/hr IV Q24HR [facility] Stop: 06/23/17 22:59 Last Infusion: 04/29/17 23:45 Dose: Infused Diltiazem HCl 125 mg/ Dextrose 125 mls @ 10 mls/hr IV TITR ARIAN; 10 MG/HR PRN Reason: Protocol Stop: 06/24/17 12:41 Last Admin: 04/30/17 09:20 Dose: 15 mg/hr, 15 mls/hr Meropenem 1 gm/ Sodium (Chloride) 100 mls @ 100 mls/hr IV Q12HR [facility] Stop: 06/26/17 11:59 Last Admin: 04/30/17 09:07 Dose: 100 mls/hr Insulin Aspart (Novolog Insulin Sliding Scale) 0 units SUBQ Q6HR [facility]AN PRN Reason: Protocol Stop: 06/16/17 17:59 Last Admin: 04/30/17 06:02 Dose: 2 units Lorazepam (Ativan) 1 mg IVP Q4HR PRN; Protocol PRN Reason: Agitation Stop: 06/25/17 10:40 Last Admin: 04/30/17 04:29 Dose: 1 mg Metoprolol Tartrate (Lopressor) 25 mg PO BID ARIAN Stop: 06/26/17 08:59 Last Admin: 04/30/17 09:10 Dose: 25 mg Miscellaneous (Probiotic Screen) 1 [facility] PRN PRN PRN Reason: PROTOCOL Stop: 06/14/17 09:39 Miscellaneous (Clinical Monitoring) 1 [facility] DAILY PRN PRN Reason: RENAL Stop: 06/15/17 12:48 Miscellaneous (Tpn Per Pharmacy) 1 [facility] PRN PRN PRN Reason: PROTOCOL Stop: 06/16/17 12:28 Morphine Sulfate (Morphine) 4 mg IVP Q2HR PRN PRN Reason: Pain (Moderate) Stop: 06/15/17 10:53 Last Admin: 04/30/17 02:42 Dose: 4 mg Ondansetron HCl (Zofran) 4 mg IVP Q6H PRN PRN Reason: Nausea / Vomiting Stop: 06/13/17 20:08 Last Admin: 04/25/17 21:06 Dose: 4 mg General: Alert, Mild distress HEENT: Atraumatic, PERRLA, EOMI, Mucous membr. moist/pink, Other Neck: Supple, +2 carotid pulse wo bruit Cardiovascular: Regular rate, Normal S1, Normal S2 Lungs: Other (diffuse rhonchi.) Abdomen: Soft, Distended, Other ( wound VAC anterior abdominal wall wound. L colostomy+) Extremities: Other (no edema and cyanosis.) Neurological: Reflexes 2+, Other (patient is confused and agitated.) Psych/Mental Status: Other (gets agitated at times.) - Procedures Procedures: Procedures Procedure Code Date BYPASS SIGMOID COLON TO CUTANEOUS, OPEN APPROACH [id number] 04/14/17 PARTIAL REMOVAL OF COLON 01253 04/14/17 RESECTION OF SIGMOID COLON, OPEN APPROACH [id number] 04/14/17 RESPIRATORY VENTILATION, 24-96 CONSECUTIVE HOURS [id number] 04/14/17 VENT MGMT INPAT INIT DAY 88705 04/14/17 Assessment/Plan - Problem List Patient Problems: All Active Problems Abscess of sigmoid colon due to diverticulitis (Acute) K57.20 Diverticulitis of sigmoid colon (Acute) K57.32 Obesity (Acute) E66.9 Perforation of sigmoid colon due to diverticulitis (Acute) K57.20 Peritonitis (acute) generalized (Acute) K65.0 Nutritional Asmnt/Malnutr-PDOC - Dietary Evaluation Malnutrition Findings (Please click <Entered> for more info): Nutritional Asmnt/Malnutrition Start: 04/19/17 14: 21 Text: Status: Complete Freq: Document 04/19/17 14:21 GSUN (Rec: 04/19/17 14:58 [id number]) Nutritional Asmnt/Malnutrition Patient General Information Nutritional Screening Moderate Risk Screening Diagnosis Sepsis, diverticulitis, peritonitis Pertinent Medical Hx/Surgical Hx Asthma, diverticulosis Subjective Information 56 year old male frome home. Pt was restless, moving extremities during visit. 04/14 : sigmoid colectomy, end colostomy, abscess drainage, diffuse peritontis. 04/16: pt started PPN. 04/17: central line and started on TPN. Spoke to family at bedside, explained parenteral nutrition , family undersoto and has no further question at this time. Weight discrepancies noted in EMR, family does not know UBW , estimated nutritional needs based Current Diet Order/ Nutrition Support TPN D10% AA4.25% at 90ml/hr with IL20% 150ml, providing 1401.6kcal Pertinent Medications Dilaudid, Novolog, Culturelle, Magnesium Sulfate, Vancomycin , TPN, Morphine, Multivitamins , Zofran, Protonix, Nacl0.9% Pertinent Labs 04/14: triglycerides 106, total bilirubin 1.1H, glucose 116H 04/17: magnesium 2.5, phsophorus 3.2 04/19: magnesium 1.8L, phosphorus 2.4L, BUN 28H, creatinine 1.3, glucose 154H, total bilirubin 1.1H, triglycerides 238H Nutritional Hx/Data Height 1.7 m Height (Calculated Centimeters) 170.2 Current Weight (lbs) 95.254 kg Weight (Calculated Kilograms) 95.3 Weight (Calculated Grams) 58542.4 [place] Body Weight 148 Weight Status Overweight GI Symptoms Skin Integrity/Comment: [place] 14. Facial non-pitting 1+, bilateral hands pitting 1+ Estimated Nutritional Goals Calories/Kcals/Kg IBW 148/67.3kg Kcals Calculated 2018-2356kcal (30-35kcal/kg) Protein Calculated 101-135g (1.5-2g/kg) Fluid: ml Per MD Nutritional Problem 1. Problem Problem Altered GI function related to Etiology abscess and perforation of sigmoid colon due to diverticulitis aeb Signs/Symptoms: post-operative, on TPN Intervention/Recommendation Comments 1. Recommend TPN D15% AA5.5% at 100ml/hr with IL20% 150ml, providing 2400ml total volume, 2052kcal, 132g protein, meeting 100% of estimated nutritional needs. Carb load 2 .6mg/kg/min (using 210lb adm weight). 2. Monitor for possible refeeding syndrome, 04/18: phsophorus 2.1L, 04/19: magnesium 1.9. 3. Monitor triglycerides, total bilirubin, glucose, renal labs. Expected Outcomes/Goals Expected Outcomes/Goals 1. Pt to meet 100% of estimated nutritional needs on TPN.
[2017-04-30] MEDS: TPN 10%-70% CUSTOM IV SCH (18:37)
[2017-04-30] MEDS: Fluconazole 200mg/100mL 200 MG/100 ML BAG IV SCH (23:42)
[2017-05-01] MEDS: INSULIN ASPART SLIDING SCALE 100 UNITS/ML UNIT SUBQ SCH ×5 (00:18→23:38)
--- NOTE | 2017-05-01 00:37 | Progress Notes ---
DATE: 04/30/2017 PROBLEM LIST: 1.Acute respiratory failure secondary to multifactorial. 2.Severe obstructive sleep apnea syndrome. 3.Poor ability to mobilize tracheobronchial secretions. 4.Status post abdominal surgery with previous peritonitis. SYMPTOMS: Nil. The patient has periods of lot of secretions and tachypnea. No respiratory distress. PHYSICAL EXAMINATION: VITAL SIGNS: T-max 102. Currently, in a cooling mattress. On exam, heart is 110-120 and patient's saturation is 99. This was earlier on BiPAP. NECK: Veins not visualized. CHEST: Showed some transmitted noise otherwise unremarkable. HEART: Regular and tachycardic. ABDOMEN: Still little tender in the lower abdomen, but otherwise unremarkable. ABG shows mild metabolic alkalosis on 2 liters, otherwise unremarkable. Electrolytes are okay. ASSESSMENT: The patient is still very marginal, slight sedation or pain medications ____ problems with respiratory issue secondary to severe obstructive sleep apnea syndrome and poor ability to mobilize secretions. PLANS AND SUGGESTIONS: Discussed with the patient's son, discussed with RN. ____ p.r.n. Continue BiPAP. We will see how he does in the next 24-48 hours and go from there. JOB# [id number]
[2017-05-01] MEDS: Albuterol/Ipratropium Neb 3 ML AERS HHN SCH ×6 (02:33→23:20)
[2017-05-01 05:45] LABS: ANION GAP 7.3 (7.0-16.0); BUN - UREA NITROGEN 23 mg/dL (7-25); BUN/CREATININE RATIO 17.7; CARBON DIOXIDE 35.7 mEq/L (21.0-31.0); CHLORIDE 98 mEq/L (98-107); CREATININE - SERUM 1.3 mg/dL (0.7-1.3); GLUCOSE 218 mg/dL (70-105); MAGNESIUM 2.3 mg/dL (1.9-2.7); PHOSPHOROUS 4.4 mg/dL (2.5-5.0); SODIUM SERUM 137 mEq/L (136-145)
[2017-05-01] MEDS: Budesonide 0.5 Mg/2 mL Ud HHN SCH ×2 (07:41→19:20)
[2017-05-01 08:47] LABS: ABG SOURCE Arterial; ALLEN TEST Positive; BE(B) 6.4 mEq/L (-3.0-3.0); HCO3 29.3 mEq/L (20.0-26.0); MECH RATE 12; pH 7.14 (7.35-7.45)
[2017-05-01 08:48] LABS: FIO2 25; MECH VT 400
[2017-05-01] MEDS ORDERED: EPINEPHRine HCL 1 mg/mL 1mL Amp IVP ONE (09:01)
--- NOTE | 2017-05-01 10:10 | Diagnostic Imaging Report ---
CHEST X-RAY: AP view INDICATION: ET and NG tube placement COMPARISON: Chest x-ray 04/30/2017 FINDINGS: Right IJ central line is stable. ET tube is seen with tip 5.5 cm above the [place]. NG tube is seen with tip in the stomach. No focal consolidation pleural effusions or evidence of pneumothorax. Slight increase left basal density seen with left lateral pleural thickening. IMPRESSION: Interval intubation with tip 5.5 cm above the ondina. NG tube within the stomach. Faint left basal density. This likely represents chronic parenchymal changes. Superimposed acute infiltrate would be considered less likely, however, clinical correlation is recommended Left lateral pleural thickening.
--- NOTE | 2017-05-01 11:07 | Infectious Disease Prog Note ---
Infectious Disease Subjective - Review of Systems Service Date: 05/01/17 Events since last encounter: THEE FRANZ was called this morning. Patient was intubated and put on ventilator support. Subjective: This morning, patient went into a systole for short time. THEE FRANZ was called , he was intubated and was put on ventilator support. Currently, he is unresponsive. Infectious Disease Objective - Results Result Diagrams: 04/30/17 04:35 05/01/17 04:30 Recent Labs: Laboratory Last Values WBC 9.8 Th/cmm (4.8-10.8) 04/30/17 04:35 RBC 3.11 Mil/cmm (4.30-5.70) L 04/30/17 04:35 Hgb 8.2 gm/dL (13.2-17.3) L 04/30/17 04:35 Hct 24.3 % (39.0-49.0) L 04/30/17 04:35 MCV 78.2 fl (80-99) L 04/30/17 04:35 MCH 26.3 pg (26.0-30.0) 04/30/17 04:35 MCHC Differential 33.6 pg (28.0-36.0) 04/30/17 04:35 RDW 14.8 % (11.5-20.0) 04/30/17 04:35 Plt Count 506 Th/cmm (150-400) H 04/30/17 04:35 MPV 8.0 fl 04/30/17 04:35 Neutrophils % 73.8 % (40.0-80.0) 04/30/17 04:35 Band Neutrophils % 3 % (0-10) 04/28/17 06:08 Lymphocytes % 12.1 % (20.0-50.0) L 04/30/17 04:35 Monocytes % 7.7 % (2.0-10.0) 04/30/17 04:35 Eosinophils % 5.2 % (0.0-5.0) H 04/30/17 04:35 Basophils % 1.2 % (0.0-2.0) 04/30/17 04:35 Neutrophils (Manual) 73 % (40-80) 04/28/17 06:08 Lymphocytes 9 % (20-50) L 04/28/17 06:08 Monocytes 9 % (2-10) 04/28/17 06:08 Eosinophils 6 % (0-5) H 04/28/17 06:08 Metamyelocytes 1 % (0-0) H 04/22/17 05:04 Platelet Estimate INCREASED PLATELETS (NORMAL) 04/28/17 06:08 Platelet Morphology NORMAL (NORMAL) 04/28/17 06:08 Anisocytosis 1+ 04/28/17 06:08 Microcytosis 1+ 04/28/17 06:08 RBC Morph Micro Appear ABNORMAL (NORMAL) 04/28/17 06:08 ESR > 140 mm/hr (0-20) H 04/20/17 07:00 PT 11.9 SECONDS (9.5-11.5) H 04/24/17 21:19 INR 1.13 (0.5-1.4) 04/24/17 21:19 PTT (Actin FS) 27.6 SECONDS (26.0-38.0) 04/24/17 21:19 Specimen Source Arterial 05/01/17 08:22 Sample Site Right Radial 05/01/17 08:22 pH 7.14 (7.35-7.45) L* 05/01/17 08:22 pCO2 115.0 mmHg (35.0-45.0) H* 05/01/17 08:22 pO2 51.0 mmHg (80.0-100.0) L 05/01/17 08:22 HCO3 29.3 mEq/L (20.0-26.0) H 05/01/17 08:22 Base Excess 6.4 mEq/L (-3.0-3.0) H 05/01/17 08:22 O2 Saturation 73.0 % (92.0-100.0) L 05/01/17 08:22 Chau Test Positive 05/01/17 08:22 Vent Rate 12 05/01/17 08:22 Inspired O2 25 05/01/17 08:22 Tidal Volume 400 05/01/17 08:22 PEEP 4 05/01/17 08:22 Pressure (ins/psv/peep) NA 05/01/17 08:22 Critical Value LZHANG 05/01/17 08:22 Sodium 137 mEq/L (136-145) 05/01/17 04:30 Potassium 4.0 mEq/L (3.5-5.1) 05/01/17 04:30 Chloride 98 mEq/L (98-107) 05/01/17 04:30 Carbon Dioxide 35.7 mEq/L (21.0-31.0) H 05/01/17 04:30 Anion Gap 7.3 (7.0-16.0) 05/01/17 04:30 BUN 23 mg/dL (7-25) 05/01/17 04:30 Creatinine 1.3 mg/dL (0.7-1.3) 05/01/17 04:30 Est GFR ( Amer) > 60.0 ml/min (>90) 05/01/17 04:30 Est GFR (Non-Af Amer) > 60.0 ml/min 05/01/17 04:30 BUN/Creatinine Ratio 17.7 05/01/17 04:30 Glucose 218 mg/dL (70-105) H 05/01/17 04:30 POC Glucose 180 MG/DL (70 - 105) H 04/30/17 18:29 Hemoglobin A1c % 6.7 % (4.0-6.0) H 04/22/17 05:04 Whole Bld Lactic Acid 1.30 mmol/L (0.60-1.99) 04/24/17 21:19 Uric Acid 3.6 mg/dL (4.4-7.6) L 04/20/17 07:00 Calcium 9.0 mg/dL (8.6-10.3) 05/01/17 04:30 Phosphorus 4.4 mg/dL (2.5-5.0) 05/01/17 04:30 Magnesium 2.3 mg/dL (1.9-2.7) 05/01/17 04:30 Total Bilirubin 0.5 mg/dL (0.3-1.0) 04/30/17 04:35 AST 39 U/L (13-39) 04/30/17 04:35 ALT 19 U/L (7-52) 04/30/17 04:35 Alkaline Phosphatase 100 U/L (34-104) 04/30/17 04:35 Ammonia 26 umol/L (16-53) 04/30/17 04:35 Creatine Kinase 136 U/L (30-223) 04/14/17 14:55 Troponin I 0.01 ng/mL (0.01-0.05) 04/22/17 05:04 C-Reactive Protein 28.9 mg/dL (0.0-0.9) H 04/20/17 07:00 B-Natriuretic Peptide 85.5 pg/mL (5.0-100.0) 04/14/17 14:55 Total Protein 7.2 gm/dL (6.0-8.3) 04/30/17 04:35 Albumin 2.4 gm/dL (4.2-5.5) L 04/30/17 04:35 Globulin 4.8 gm/dL 04/30/17 04:35 Albumin/Globulin Ratio 0.5 (1.0-1.8) L 04/30/17 04:35 Prealbumin 9 mg/dL (10-36) L 04/27/17 04:30 Triglycerides 290 mg/dL (<150) H 05/01/17 04:30 Cholesterol 78 mg/dL (<200) 04/27/17 04:30 LDL Cholesterol Direct 38 mg/dL (75-193) L 04/14/17 14:55 HDL Cholesterol 13 mg/dL (23-92) L 04/14/17 14:55 Amylase 31 U/L (29-103) 04/14/17 14:55 Lipase 15 U/L (11-82) 04/14/17 14:55 Urine Source [place] 04/25/17 07:35 Urine Color YELLOW 04/25/17 07:35 Urine Clarity CLEAR (CLEAR) 04/25/17 07:35 Urine pH 5.5 04/25/17 07:35 Ur Specific [place] 1.015 (1.005-1.030) 04/25/17 07:35 Urine Protein TRACE mg/dL (NEGATIVE) 04/25/17 07:35 Urine Glucose (UA) NEGATIVE mg/dL (NEGATIVE) 04/25/17 07:35 Urine Ketones NEGATIVE mg/dL (NEGATIVE) 04/25/17 07:35 Urine Blood SMALL (NEGATIVE) H 04/25/17 07:35 Urine Nitrate NEGATIVE (NEGATIVE) 04/25/17 07:35 Urine Bilirubin NEGATIVE (NEGATIVE) 04/25/17 07:35 Urine Urobilinogen 0.2 E.U./dL (0.2 - 1.0) 04/25/17 07:35 Ur Leukocyte Esterase NEGATIVE (NEGATIVE) 04/25/17 07:35 Urine RBC 0-2 /hpf (0-5) H 04/25/17 07:35 Urine WBC 0-2 /hpf (0-5) 04/25/17 07:35 Ur Epithelial Cells OCCASIONAL /lpf (FEW) 04/25/17 07:35 Amorphous Sediment MANY URATES (NONE SEEN) 04/14/17 15:05 Urine Bacteria FEW /hpf (NONE SEEN) 04/25/17 07:35 Vancomycin Trough 13.5 ug/mL (10-20) 04/19/17 19:20 Blood Type O POSITIVE 04/28/17 14:35 Antibody Screen NEGATIVE 04/28/17 14:35 Crossmatch See Detail 04/28/17 14:35 - Physical Exam Vitals and I&O: Vital Signs Temp 101 F 05/01/17 07:00 Pulse 118 05/01/17 07:00 Resp 36 05/01/17 07:43 BP 95/56 05/01/17 07:00 Pulse Ox 100 05/01/17 07:43 Intake & Output 04/30/17 05/01/17 05/01/17 18:59 06:59 18:59 Intake Total 4334.5 1700 Output Total 1508 1025 Balance 2826.5 675 Weight (lbs) 101.151 kg 91.172 kg Intake: Intake, IV Amount 3034.5 Diltiazem 125 mg In 234.5 Dextrose 5% 100 ml @ 10 MG/HR 10 mls/hr IV TITR ARIAN Rx#:[id number] Linezolid 600mg/300mL 600 300 mg In 300 ml @ 300 mls/ hr IV Q12HR ARIAN Rx#: [id number] Meropenem 1 gm In Sodium 100 Chloride 0.9% 100 ml @ 100 mls/hr IV Q12HR ARIAN Rx#:[id number] Multivitamin Inj 10 ml In 2400 Dextrose 70% 1,740 ml In Amino Acids 10% 500 ml In Intralipids 20% 150 ml @ 100 mls/hr IV .Q24H ARIAN Rx#:[id number] Oral 100 0 TPN/PPN 1200 1200 Other 500 Output: Gastric Drainage 100 Drainage 3 Medial Abdomen 3 Urine 1500 900 Stool 5 Other 25 Other: Stool Characteristics Liquid Liquid Brown Brown Active Medications: Current Medications Acetaminophen (Tylenol) 650 mg PO Q6H PRN PRN Reason: FEVER/PAIN Stop: 06/21/17 17:45 Last Admin: 05/01/17 06:07 Dose: 650 mg Albuterol/Ipratropium (Duoneb Neb) 3 ml HHN Q4HRT [facility] Stop: 06/15/17 14:59 Last Admin: 05/01/17 07:41 Dose: 3 ml Amiodarone HCl (Cordarone) 200 mg NG BID ARIAN Stop: 06/24/17 23:14 Last Admin: 04/30/17 18:44 Dose: 200 mg Budesonide (Pulmicort) 0.5 mg HHN BIDRT ARIAN Stop: 06/15/17 18:59 Last Admin: 05/01/17 07:41 Dose: 0.5 mg Famotidine (Pepcid) 20 mg IVP Q12H [facility] Stop: 06/24/17 09:14 Last Admin: 04/30/17 20:37 Dose: 20 mg Multivitamins/Minerals 10 ml/Dextrose/ Amino Acids/Electrolytes/ Fat Emulsion Intravenous 2,400 mls @ 100 mls/hr IV .Q24H [facility] Stop: 06/23/17 15:59 Last Admin: 04/30/17 18:37 Dose: 100 mls/hr Dextrose/Sodium Chloride (D5-0.45ns) 1,000 mls @ 40 mls/hr IV .Q24H [facility] Stop: 06/23/17 15:59 Last Admin: 04/28/17 22:00 Dose: 40 mls/hr Linezolid (Zyvox) 600 mg in 300 mls @ 300 mls/hr IV Q12HR [facility] Stop: 06/23/17 22:59 Last Admin: 04/30/17 20:57 Dose: 300 mls/hr Fluconazole (Diflucan) 200 mg in 100 mls @ 100 mls/hr IV Q24HR ARIAN Stop: 06/23/17 22:59 Last Admin: 04/30/17 23:42 Dose: 100 mls/hr Diltiazem HCl 125 mg/ Dextrose 125 mls @ 10 mls/hr IV TITR ARIAN; 10 MG/HR PRN Reason: Protocol Stop: 06/24/17 12:41 Last Admin: 05/01/17 01:28 Dose: 15 mg/hr, 15 mls/hr Meropenem 1 gm/ Sodium (Chloride) 100 mls @ 100 mls/hr IV Q12HR ARIAN Stop: 06/26/17 11:59 Last Admin: 04/30/17 20:37 Dose: 100 mls/hr Propofol (Diprivan) 1,000 mg in 100 mls @ 0 mls/hr IV TITR ARIAN; Per Protocol PRN Reason: Protocol Stop: 06/30/17 09:16 Norepinephrine Bitartrate 4 mg (/ Dextrose) 254 mls @ 0 mls/hr IV TITR PRN; Protocol; 0 MCG/MIN PRN Reason: BP MAINTENANCE (PER PROTOCOL) Stop: 06/30/17 09:25 Insulin Aspart (Novolog Insulin Sliding Scale) 0 units SUBQ Q6HR ARIAN PRN Reason: Protocol Stop: 06/16/17 17:59 Last Admin: 05/01/17 06:38 Dose: 4 units Lorazepam (Ativan) 1 mg IVP Q4HR PRN; Protocol PRN Reason: Agitation Stop: 06/25/17 10:40 Last Admin: 05/01/17 04:57 Dose: 1 mg Metoprolol Tartrate (Lopressor) 25 mg PO BID ARIAN Stop: 06/26/17 08:59 Last Admin: 04/30/17 18:15 Dose: 25 mg Miscellaneous (Probiotic Screen) 1 [facility] PRN PRN PRN Reason: PROTOCOL Stop: 06/14/17 09:39 Miscellaneous (Clinical Monitoring) 1 [facility] DAILY PRN PRN Reason: RENAL Stop: 06/15/17 12:48 Miscellaneous (Tpn Per Pharmacy) 1 [facility] PRN PRN PRN Reason: PROTOCOL Stop: 06/16/17 12:28 Ondansetron HCl (Zofran) 4 mg IVP Q6H PRN PRN Reason: Nausea / Vomiting Stop: 06/13/17 20:08 Last Admin: 04/25/17 21:06 Dose: 4 mg General: no acute distress, well developed, well nourished HEENT: atraumatic, normocephalic, EOMI Neck: supple, no thyromegaly Cardiovascular: S1S2, regular Lungs: clear to auscultation bilaterally, clear to percussion, wheeze, no rhonchi Abdomen: soft, distended, drain (cloudy fluid in the ROLANDO drain), catheter (open wound with wound vac.), no tender Extremities: edema, no cyanosis, no clubbing Skin: other (surgical incision is open with wound vac, colostomy on the left lower quadrant.) - Procedures Procedures: Procedures Procedure Code Date BYPASS SIGMOID COLON TO CUTANEOUS, OPEN APPROACH [id number] 04/14/17 PARTIAL REMOVAL OF COLON 42471 04/14/17 RESECTION OF SIGMOID COLON, OPEN APPROACH [id number] 04/14/17 RESPIRATORY VENTILATION, 24-96 CONSECUTIVE HOURS [id number] 04/14/17 VENT MGMT INPAT INIT DAY 18642 04/14/17 Infectious Disease Assmt/Plan - Problem List Patient Problems: All Active Problems Abscess of sigmoid colon due to diverticulitis (Acute) K57.20 Diverticulitis of sigmoid colon (Acute) K57.32 Obesity (Acute) E66.9 Perforation of sigmoid colon due to diverticulitis (Acute) K57.20 Peritonitis (acute) generalized (Acute) K65.0 - Assessment Assessment: 1. Sepsis. febrile. 2. Diverticulitis, sigmoid diverticula to with support complicated by multiple abscesses and peritonitis. 3. Post operatively, on ventilator. 4. Peritonitis. Likely polymicrobial. 5. Asthma exacerbation. 6. History of arthritis. 7. Distended abdomen likely post operative ileus. Rule out small bowel obstruction. 8. SEKOU. Improved. 9. Post op, paralytic ileus. improved. 10. Wrist cellulitis, worse on left with destruction of bones. X ray of the left wrist suggested osteomyelitis. 11. Wound dehiscence. 4. Vent dependent respiratory failure. Plan: Continue Zyvox iv, merrem and diflucan. CT scan abd/pelvis and chest with contrast. Culture from ROLANDO drain. Blood c/s Nutritional Asmnt/Malnutr-PDOC - Dietary Evaluation Malnutrition Findings (Please click <Entered> for more info): Nutritional Asmnt/Malnutrition Start: 04/19/17 14: 21 Text: Status: Complete Freq: Document 04/19/17 14:21 GSUN (Rec: 04/19/17 14:58 [id number]) Nutritional Asmnt/Malnutrition Patient General Information Nutritional Screening Moderate Risk Screening Diagnosis Sepsis, diverticulitis, peritonitis Pertinent Medical Hx/Surgical Hx Asthma, diverticulosis Subjective Information 56 year old male frome home. Pt was restless, moving extremities during visit. 04/14 : sigmoid colectomy, end colostomy, abscess drainage, diffuse peritontis. 04/16: pt started PPN. 04/17: central line and started on TPN. Spoke to family at bedside, explained parenteral nutrition , family undersoto and has no further question at this time. Weight discrepancies noted in EMR, family does not know UBW , estimated nutritional needs based Current Diet Order/ Nutrition Support TPN D10% AA4.25% at 90ml/hr with IL20% 150ml, providing 1401.6kcal Pertinent Medications Dilaudid, Novolog, Culturelle, Magnesium Sulfate, Vancomycin , TPN, Morphine, Multivitamins , Zofran, Protonix, Nacl0.9% Pertinent Labs 04/14: triglycerides 106, total bilirubin 1.1H, glucose 116H 04/17: magnesium 2.5, phsophorus 3.2 04/19: magnesium 1.8L, phosphorus 2.4L, BUN 28H, creatinine 1.3, glucose 154H, total bilirubin 1.1H, triglycerides 238H Nutritional Hx/Data Height 1.7 m Height (Calculated Centimeters) 170.2 Current Weight (lbs) 95.254 kg Weight (Calculated Kilograms) 95.3 Weight (Calculated Grams) 66864.4 [place] Body Weight 148 Weight Status Overweight GI Symptoms Skin Integrity/Comment: [place] 14. Facial non-pitting 1+, bilateral hands pitting 1+ Estimated Nutritional Goals Calories/Kcals/Kg IBW 148/67.3kg Kcals Calculated 2019-2356kcal (30-35kcal/kg) Protein Calculated 101-135g (1.5-2g/kg) Fluid: ml Per MD Nutritional Problem 1. Problem Problem Altered GI function related to Etiology abscess and perforation of sigmoid colon due to diverticulitis aeb Signs/Symptoms: post-operative, on TPN Intervention/Recommendation Comments 1. Recommend TPN D15% AA5.5% at 100ml/hr with IL20% 150ml, providing 2400ml total volume, 2052kcal, 132g protein, meeting 100% of estimated nutritional needs. Carb load 2 .6mg/kg/min (using 210lb adm weight). 2. Monitor for possible refeeding syndrome, 04/18: phsophorus 2.1L, 04/19: magnesium 1.9. 3. Monitor triglycerides, total bilirubin, glucose, renal labs. Expected Outcomes/Goals Expected Outcomes/Goals 1. Pt to meet 100% of estimated nutritional needs on TPN.
--- NOTE | 2017-05-01 11:13 | General Progress Note ---
Subjective - Review of Systems Subjective: confused again, obtunded, nonverbal reintubated and ACLS protocol this am Objective - Results Result Diagrams: 04/30/17 04:35 05/01/17 04:30 Recent Labs: Laboratory Last Values WBC 9.8 Th/cmm (4.8-10.8) 04/30/17 04:35 RBC 3.11 Mil/cmm (4.30-5.70) L 04/30/17 04:35 Hgb 8.2 gm/dL (13.2-17.3) L 04/30/17 04:35 Hct 24.3 % (39.0-49.0) L 04/30/17 04:35 MCV 78.2 fl (80-99) L 04/30/17 04:35 MCH 26.3 pg (26.0-30.0) 04/30/17 04:35 MCHC Differential 33.6 pg (28.0-36.0) 04/30/17 04:35 RDW 14.8 % (11.5-20.0) 04/30/17 04:35 Plt Count 506 Th/cmm (150-400) H 04/30/17 04:35 MPV 8.0 fl 04/30/17 04:35 Neutrophils % 73.8 % (40.0-80.0) 04/30/17 04:35 Band Neutrophils % 3 % (0-10) 04/28/17 06:08 Lymphocytes % 12.1 % (20.0-50.0) L 04/30/17 04:35 Monocytes % 7.7 % (2.0-10.0) 04/30/17 04:35 Eosinophils % 5.2 % (0.0-5.0) H 04/30/17 04:35 Basophils % 1.2 % (0.0-2.0) 04/30/17 04:35 Neutrophils (Manual) 73 % (40-80) 04/28/17 06:08 Lymphocytes 9 % (20-50) L 04/28/17 06:08 Monocytes 9 % (2-10) 04/28/17 06:08 Eosinophils 6 % (0-5) H 04/28/17 06:08 Metamyelocytes 1 % (0-0) H 04/22/17 05:04 Platelet Estimate INCREASED PLATELETS (NORMAL) 04/28/17 06:08 Platelet Morphology NORMAL (NORMAL) 04/28/17 06:08 Anisocytosis 1+ 04/28/17 06:08 Microcytosis 1+ 04/28/17 06:08 RBC Morph Micro Appear ABNORMAL (NORMAL) 04/28/17 06:08 ESR > 140 mm/hr (0-20) H 04/20/17 07:00 PT 11.9 SECONDS (9.5-11.5) H 04/24/17 21:19 INR 1.13 (0.5-1.4) 04/24/17 21:19 PTT (Actin FS) 27.6 SECONDS (26.0-38.0) 04/24/17 21:19 Specimen Source Arterial 05/01/17 08:22 Sample Site Right Radial 05/01/17 08:22 pH 7.14 (7.35-7.45) L* 05/01/17 08:22 pCO2 115.0 mmHg (35.0-45.0) H* 05/01/17 08:22 pO2 51.0 mmHg (80.0-100.0) L 05/01/17 08:22 HCO3 29.3 mEq/L (20.0-26.0) H 05/01/17 08:22 Base Excess 6.4 mEq/L (-3.0-3.0) H 05/01/17 08:22 O2 Saturation 73.0 % (92.0-100.0) L 05/01/17 08:22 Chau Test Positive 05/01/17 08:22 Vent Rate 12 05/01/17 08:22 Inspired O2 25 05/01/17 08:22 Tidal Volume 400 05/01/17 08:22 PEEP 4 05/01/17 08:22 Pressure (ins/psv/peep) NA 05/01/17 08:22 Critical Value LZHANG 05/01/17 08:22 Sodium 137 mEq/L (136-145) 05/01/17 04:30 Potassium 4.0 mEq/L (3.5-5.1) 05/01/17 04:30 Chloride 98 mEq/L (98-107) 05/01/17 04:30 Carbon Dioxide 35.7 mEq/L (21.0-31.0) H 05/01/17 04:30 Anion Gap 7.3 (7.0-16.0) 05/01/17 04:30 BUN 23 mg/dL (7-25) 05/01/17 04:30 Creatinine 1.3 mg/dL (0.7-1.3) 05/01/17 04:30 Est GFR ( Amer) > 60.0 ml/min (>90) 05/01/17 04:30 Est GFR (Non-Af Amer) > 60.0 ml/min 05/01/17 04:30 BUN/Creatinine Ratio 17.7 05/01/17 04:30 Glucose 218 mg/dL (70-105) H 05/01/17 04:30 POC Glucose 180 MG/DL (70 - 105) H 04/30/17 18:29 Hemoglobin A1c % 6.7 % (4.0-6.0) H 04/22/17 05:04 Whole Bld Lactic Acid 1.30 mmol/L (0.60-1.99) 04/24/17 21:19 Uric Acid 3.6 mg/dL (4.4-7.6) L 04/20/17 07:00 Calcium 9.0 mg/dL (8.6-10.3) 05/01/17 04:30 Phosphorus 4.4 mg/dL (2.5-5.0) 05/01/17 04:30 Magnesium 2.3 mg/dL (1.9-2.7) 05/01/17 04:30 Total Bilirubin 0.5 mg/dL (0.3-1.0) 04/30/17 04:35 AST 39 U/L (13-39) 04/30/17 04:35 ALT 19 U/L (7-52) 04/30/17 04:35 Alkaline Phosphatase 100 U/L (34-104) 04/30/17 04:35 Ammonia 26 umol/L (16-53) 04/30/17 04:35 Creatine Kinase 136 U/L (30-223) 04/14/17 14:55 Troponin I 0.01 ng/mL (0.01-0.05) 04/22/17 05:04 C-Reactive Protein 28.9 mg/dL (0.0-0.9) H 04/20/17 07:00 B-Natriuretic Peptide 85.5 pg/mL (5.0-100.0) 04/14/17 14:55 Total Protein 7.2 gm/dL (6.0-8.3) 04/30/17 04:35 Albumin 2.4 gm/dL (4.2-5.5) L 04/30/17 04:35 Globulin 4.8 gm/dL 04/30/17 04:35 Albumin/Globulin Ratio 0.5 (1.0-1.8) L 04/30/17 04:35 Prealbumin 9 mg/dL (10-36) L 04/27/17 04:30 Triglycerides 290 mg/dL (<150) H 05/01/17 04:30 Cholesterol 78 mg/dL (<200) 04/27/17 04:30 LDL Cholesterol Direct 38 mg/dL (75-193) L 04/14/17 14:55 HDL Cholesterol 13 mg/dL (23-92) L 04/14/17 14:55 Amylase 31 U/L (29-103) 04/14/17 14:55 Lipase 15 U/L (11-82) 04/14/17 14:55 Urine Source [place] 04/25/17 07:35 Urine Color YELLOW 04/25/17 07:35 Urine Clarity CLEAR (CLEAR) 04/25/17 07:35 Urine pH 5.5 04/25/17 07:35 Ur Specific [place] 1.015 (1.005-1.030) 04/25/17 07:35 Urine Protein TRACE mg/dL (NEGATIVE) 04/25/17 07:35 Urine Glucose (UA) NEGATIVE mg/dL (NEGATIVE) 04/25/17 07:35 Urine Ketones NEGATIVE mg/dL (NEGATIVE) 04/25/17 07:35 Urine Blood SMALL (NEGATIVE) H 04/25/17 07:35 Urine Nitrate NEGATIVE (NEGATIVE) 04/25/17 07:35 Urine Bilirubin NEGATIVE (NEGATIVE) 04/25/17 07:35 Urine Urobilinogen 0.2 E.U./dL (0.2 - 1.0) 04/25/17 07:35 Ur Leukocyte Esterase NEGATIVE (NEGATIVE) 04/25/17 07:35 Urine RBC 0-2 /hpf (0-5) H 04/25/17 07:35 Urine WBC 0-2 /hpf (0-5) 04/25/17 07:35 Ur Epithelial Cells OCCASIONAL /lpf (FEW) 04/25/17 07:35 Amorphous Sediment MANY URATES (NONE SEEN) 04/14/17 15:05 Urine Bacteria FEW /hpf (NONE SEEN) 04/25/17 07:35 Vancomycin Trough 13.5 ug/mL (10-20) 04/19/17 19:20 Blood Type O POSITIVE 04/28/17 14:35 Antibody Screen NEGATIVE 04/28/17 14:35 Crossmatch See Detail 04/28/17 14:35 - Physical Exam Vitals and I&O: Vital Signs Temp 101 F 05/01/17 07:00 Pulse 118 05/01/17 07:00 Resp 36 05/01/17 07:43 BP 95/56 05/01/17 07:00 Pulse Ox 100 05/01/17 07:43 Intake & Output 04/30/17 05/01/17 05/01/17 18:59 06:59 18:59 Intake Total 4334.5 1700 Output Total 1508 1025 Balance 2826.5 675 Weight (lbs) 101.151 kg 91.172 kg Intake: Intake, IV Amount 3034.5 Diltiazem 125 mg In 234.5 Dextrose 5% 100 ml @ 10 MG/HR 10 mls/hr IV TITR [facility] Rx#:[id number] Linezolid 600mg/300mL 600 300 mg In 300 ml @ 300 mls/ hr IV Q12HR [facility] Rx#: [id number] Meropenem 1 gm In Sodium 100 Chloride 0.9% 100 ml @ 100 mls/hr IV Q12HR [facility] Rx#:[id number] Multivitamin Inj 10 ml In 2400 Dextrose 70% 1,740 ml In Amino Acids 10% 500 ml In Intralipids 20% 150 ml @ 100 mls/hr IV .Q24H [facility] Rx#:[id number] Oral 100 0 TPN/PPN 1200 1200 Other 500 Output: Gastric Drainage 100 Drainage 3 Medial Abdomen 3 Urine 1500 900 Stool 5 Other 25 Other: Stool Characteristics Liquid Liquid [place] Active Medications: Current Medications Acetaminophen (Tylenol) 650 mg PO Q6H PRN PRN Reason: FEVER/PAIN Stop: 06/21/17 17:45 Last Admin: 05/01/17 06:07 Dose: 650 mg Albuterol/Ipratropium (Duoneb Neb) 3 ml HHN Q4HRT [facility] Stop: 06/15/17 14:59 Last Admin: 05/01/17 07:41 Dose: 3 ml Amiodarone HCl (Cordarone) 200 mg NG BID [facility] Stop: 06/24/17 23:14 Last Admin: 04/30/17 18:44 Dose: 200 mg Budesonide (Pulmicort) 0.5 mg HHN BIDRT [facility] Stop: 06/15/17 18:59 Last Admin: 05/01/17 07:41 Dose: 0.5 mg Famotidine (Pepcid) 20 mg IVP Q12H [facility] Stop: 06/24/17 09:14 Last Admin: 04/30/17 20:37 Dose: 20 mg Multivitamins/Minerals 10 ml/Dextrose/ Amino Acids/Electrolytes/ Fat Emulsion Intravenous 2,400 mls @ 100 mls/hr IV .Q24H [facility] Stop: 06/23/17 15:59 Last Admin: 04/30/17 18:37 Dose: 100 mls/hr Dextrose/Sodium Chloride (D5-0.45ns) 1,000 mls @ 40 mls/hr IV .Q24H [facility] Stop: 06/23/17 15:59 Last Admin: 04/28/17 22:00 Dose: 40 mls/hr Linezolid (Zyvox) 600 mg in 300 mls @ 300 mls/hr IV Q12HR [facility] Stop: 06/23/17 22:59 Last Admin: 04/30/17 20:57 Dose: 300 mls/hr Fluconazole (Diflucan) 200 mg in 100 mls @ 100 mls/hr IV Q24HR [facility] Stop: 06/23/17 22:59 Last Admin: 04/30/17 23:42 Dose: 100 mls/hr Diltiazem HCl 125 mg/ Dextrose 125 mls @ 10 mls/hr IV TITR [facility]; 10 MG/HR PRN Reason: Protocol Stop: 06/24/17 12:41 Last Admin: 05/01/17 01:28 Dose: 15 mg/hr, 15 mls/hr Meropenem 1 gm/ Sodium (Chloride) 100 mls @ 100 mls/hr IV Q12HR [facility] Stop: 06/26/17 11:59 Last Admin: 04/30/17 20:37 Dose: 100 mls/hr Propofol (Diprivan) 1,000 mg in 100 mls @ 0 mls/hr IV TITR [facility]; Per Protocol PRN Reason: Protocol Stop: 06/30/17 09:16 Norepinephrine Bitartrate 4 mg (/ Dextrose) 254 mls @ 0 mls/hr IV TITR PRN; Protocol; 0 MCG/MIN PRN Reason: BP MAINTENANCE (PER PROTOCOL) Stop: 06/30/17 09:25 Insulin Aspart (Novolog Insulin Sliding Scale) 0 units SUBQ Q6HR [facility] PRN Reason: Protocol Stop: 06/16/17 17:59 Last Admin: 05/01/17 06:38 Dose: 4 units Lorazepam (Ativan) 1 mg IVP Q4HR PRN; Protocol PRN Reason: Agitation Stop: 06/25/17 10:40 Last Admin: 05/01/17 04:57 Dose: 1 mg Metoprolol Tartrate (Lopressor) 25 mg PO BID [facility] Stop: 06/26/17 08:59 Last Admin: 04/30/17 18:15 Dose: 25 mg Miscellaneous (Probiotic Screen) 1 [facility] PRN PRN PRN Reason: PROTOCOL Stop: 06/14/17 09:39 Miscellaneous (Clinical Monitoring) 1 [facility] DAILY PRN PRN Reason: RENAL Stop: 06/15/17 12:48 Miscellaneous (Tpn Per Pharmacy) 1 [facility] PRN PRN PRN Reason: PROTOCOL Stop: 06/16/17 12:28 Ondansetron HCl (Zofran) 4 mg IVP Q6H PRN PRN Reason: Nausea / Vomiting Stop: 06/13/17 20:08 Last Admin: 04/25/17 21:06 Dose: 4 mg General: Mild distress HEENT: Atraumatic, PERRLA, EOMI, Mucous membr. moist/pink, Other Neck: Supple, +2 carotid pulse wo bruit Cardiovascular: Regular rate, Normal S1, Normal S2 Lungs: Other (diffuse rhonchi.) Abdomen: Soft, Distended, Other ( wound VAC anterior abdominal wall wound. L colostomy+) Extremities: Other (no edema and cyanosis.) Neurological: Reflexes 2+, Other (patient is confused and agitated.) Psych/Mental Status: Other (gets agitated at times.) - Procedures Procedures: Procedures Procedure Code Date BYPASS SIGMOID COLON TO CUTANEOUS, OPEN APPROACH [id number] 04/14/17 PARTIAL REMOVAL OF COLON 38267 04/14/17 RESECTION OF SIGMOID COLON, OPEN APPROACH [id number] 04/14/17 RESPIRATORY VENTILATION, 24-96 CONSECUTIVE HOURS [id number] 04/14/17 VENT MGMT INPAT INIT 94880 04/14/17 Assessment/Plan - Problem List Patient Problems: All Active Problems Abscess of sigmoid colon due to diverticulitis (Acute) K57.20 Diverticulitis of sigmoid colon (Acute) K57.32 Obesity (Acute) E66.9 Perforation of sigmoid colon due to diverticulitis (Acute) K57.20 Peritonitis (acute) generalized (Acute) K65.0 - Assessment Assessment: POD#17; s/p ex lap, sigmoid colectomy, drainage of peritonitis, lysis adhesions , ROLANDO drain placement 04/14 icu status confused, obtunded, reintubated and brief ACLS protocol this am. continue IVfluids +TPN tachycardia, fever intermittently, normal WBC ROLANDO drain minimal output, murky colored light brown color. renal insufficiency. dvt prophylaxis Lovenox SQ colostomy end necrosed and sloughed, severely retracted, but functional..... poor candidate for revision of colostomy CT results noted 04/25 infected abd wound, laura removed, and wound opened and packed, wound vac applied, change q 3 days. continue iv abx. sen cath stricts ins and out supportive care.... s/w family; guarded prognosis. obtain CT abd/pelvis today prefer taper off propofol (hypotension) and start versed drip if sedation desired on levophed currently. Nutritional Asmnt/Malnutr-PDOC - Dietary Evaluation Malnutrition Findings (Please click <Entered> for more info): Nutritional Asmnt/Malnutrition Start: 04/19/17 14: 21 Text: Status: Complete Freq: Document 04/19/17 14:21 GSUN (Rec: 04/19/17 14:58 [id number]) Nutritional Asmnt/Malnutrition Patient General Information Nutritional Screening Moderate Risk Screening Diagnosis Sepsis, diverticulitis, peritonitis Pertinent Medical Hx/Surgical Hx Asthma, diverticulosis Subjective Information 56 year old male frome home. Pt was restless, moving extremities during visit. 04/14 : sigmoid colectomy, end colostomy, abscess drainage, diffuse peritontis. 04/16: pt started PPN. 04/17: central line and started on TPN. Spoke to family at bedside, explained parenteral nutrition , family undersoto and has no further question at this time. Weight discrepancies noted in EMR, family does not know UBW , estimated nutritional needs based Current Diet Order/ Nutrition Support TPN D10% AA4.25% at 90ml/hr with IL20% 150ml, providing 1401.6kcal Pertinent Medications Dilaudid, Novolog, Culturelle, Magnesium Sulfate, Vancomycin , TPN, Morphine, Multivitamins , Zofran, Protonix, Nacl0.9% Pertinent Labs 04/14: triglycerides 106, total bilirubin 1.1H, glucose 116H 04/17: magnesium 2.5, phsophorus 3.2 04/19: magnesium 1.8L, phosphorus 2.4L, BUN 28H, creatinine 1.3, glucose 154H, total bilirubin 1.1H, triglycerides 238H Nutritional Hx/Data Height 1.7 m Height (Calculated Centimeters) 170.2 Current Weight (lbs) 95.254 kg Weight (Calculated Kilograms) 95.3 Weight (Calculated Grams) 35834.4 [place] Body Weight 148 Weight Status Overweight GI Symptoms Skin Integrity/Comment: [place] 14. Facial non-pitting 1+, bilateral hands pitting 1+ Estimated Nutritional Goals Calories/Kcals/Kg IBW 148/67.3kg Kcals Calculated 2019-2356kcal (30-35kcal/kg) Protein Calculated 101-135g (1.5-2g/kg) Fluid: ml Per MD Nutritional Problem 1. Problem Problem Altered GI function related to Etiology abscess and perforation of sigmoid colon due to diverticulitis aeb Signs/Symptoms: post-operative, on TPN Intervention/Recommendation Comments 1. Recommend TPN D15% AA5.5% at 100ml/hr with IL20% 150ml, providing 2400ml total volume, 2052kcal, 132g protein, meeting 100% of estimated nutritional needs. Carb load 2 .6mg/kg/min (using 210lb adm weight). 2. Monitor for possible refeeding syndrome, 04/18: phsophorus 2.1L, 04/19: magnesium 1.9. 3. Monitor triglycerides, total bilirubin, glucose, renal labs. Expected Outcomes/Goals Expected Outcomes/Goals 1. Pt to meet 100% of estimated nutritional needs on TPN.
[2017-05-01 11:23] LABS: pH 7.29 (7.35-7.45)
[2017-05-01 11:25] LABS: ABG SOURCE Arterial; ALLEN TEST Positive; BE(B) 7.4 mEq/L (-3.0-3.0); HCO3 30.8 mEq/L (20.0-26.0)
[2017-05-01 11:26] LABS: FIO2 100; MECH RATE 12
--- NOTE | 2017-05-01 12:29 | General Progress Note ---
Subjective - Review of Systems Service Date: 05/01/17 Events since last encounter: 09 HRS. I was called to the ICU to intubate a patient in respiratory failure. He was having severe problems maintaining oxygenation and the CO2 was in the 100 range. The patient had recent surgery and at that time was a difficult intubation. I had difficulty visualizing the vocal cords. Nasotracheal intubation was performed using a 7.5 endotracheal tube. There was moderate bleeding from the nose due to damage to the terminates. Tube placement was confirmed by chest x-ray, improvement in O2 saturation to 100% and end tidal CO2 yellow color change. The patient's blood pressure was marginal and I ordered 500 mL bolus of normal saline. A repeat blood gas showed a marked improvement in the patient's oxygenation, CO2 retention, and pH. Objective - Results Result Diagrams: 04/30/17 04:35 05/01/17 04:30 Recent Labs: Laboratory Last Values WBC 9.8 Th/cmm (4.8-10.8) 04/30/17 04:35 RBC 3.11 Mil/cmm (4.30-5.70) L 04/30/17 04:35 Hgb 8.2 gm/dL (13.2-17.3) L 04/30/17 04:35 Hct 24.3 % (39.0-49.0) L 04/30/17 04:35 MCV 78.2 fl (80-99) L 04/30/17 04:35 MCH 26.3 pg (26.0-30.0) 04/30/17 04:35 MCHC Differential 33.6 pg (28.0-36.0) 04/30/17 04:35 RDW 14.8 % (11.5-20.0) 04/30/17 04:35 Plt Count 506 Th/cmm (150-400) H 04/30/17 04:35 MPV 8.0 fl 04/30/17 04:35 Neutrophils % 73.8 % (40.0-80.0) 04/30/17 04:35 Band Neutrophils % 3 % (0-10) 04/28/17 06:08 Lymphocytes % 12.1 % (20.0-50.0) L 04/30/17 04:35 Monocytes % 7.7 % (2.0-10.0) 04/30/17 04:35 Eosinophils % 5.2 % (0.0-5.0) H 04/30/17 04:35 Basophils % 1.2 % (0.0-2.0) 04/30/17 04:35 Neutrophils (Manual) 73 % (40-80) 04/28/17 06:08 Lymphocytes 9 % (20-50) L 04/28/17 06:08 Monocytes 9 % (2-10) 04/28/17 06:08 Eosinophils 6 % (0-5) H 04/28/17 06:08 Metamyelocytes 1 % (0-0) H 04/22/17 05:04 Platelet Estimate INCREASED PLATELETS (NORMAL) 04/28/17 06:08 Platelet Morphology NORMAL (NORMAL) 04/28/17 06:08 Anisocytosis 1+ 04/28/17 06:08 Microcytosis 1+ 04/28/17 06:08 RBC Morph Micro Appear ABNORMAL (NORMAL) 04/28/17 06:08 ESR > 140 mm/hr (0-20) H 04/20/17 07:00 PT 11.9 SECONDS (9.5-11.5) H 04/24/17 21:19 INR 1.13 (0.5-1.4) 04/24/17 21:19 PTT (Actin FS) 27.6 SECONDS (26.0-38.0) 04/24/17 21:19 Specimen Source Arterial 05/01/17 10:15 Sample Site Right Radial 05/01/17 10:15 pH 7.29 (7.35-7.45) L 05/01/17 10:15 pCO2 76.0 mmHg (35.0-45.0) H* 05/01/17 10:15 pO2 516.0 mmHg (80.0-100.0) H 05/01/17 10:15 HCO3 30.8 mEq/L (20.0-26.0) H 05/01/17 10:15 Base Excess 7.4 mEq/L (-3.0-3.0) H 05/01/17 10:15 O2 Saturation 100.0 % (92.0-100.0) 05/01/17 10:15 Chau Test Positive 05/01/17 10:15 Vent Rate 12 05/01/17 10:15 Inspired O2 100 05/01/17 10:15 Tidal Volume NA 05/01/17 10:15 PEEP NA 05/01/17 10:15 Pressure (ins/psv/peep) NA 05/01/17 10:15 Critical Value JOSE 05/01/17 10:15 Sodium 137 mEq/L (136-145) 05/01/17 04:30 Potassium 4.0 mEq/L (3.5-5.1) 05/01/17 04:30 Chloride 98 mEq/L (98-107) 05/01/17 04:30 Carbon Dioxide 35.7 mEq/L (21.0-31.0) H 05/01/17 04:30 Anion Gap 7.3 (7.0-16.0) 05/01/17 04:30 BUN 23 mg/dL (7-25) 05/01/17 04:30 Creatinine 1.3 mg/dL (0.7-1.3) 05/01/17 04:30 Est GFR ( Amer) > 60.0 ml/min (>90) 05/01/17 04:30 Est GFR (Non-Af Amer) > 60.0 ml/min 05/01/17 04:30 BUN/Creatinine Ratio 17.7 05/01/17 04:30 Glucose 218 mg/dL (70-105) H 05/01/17 04:30 POC Glucose 197 MG/DL (70 - 105) H 05/01/17 11:33 Hemoglobin A1c % 6.7 % (4.0-6.0) H 04/22/17 05:04 Whole Bld Lactic Acid 1.30 mmol/L (0.60-1.99) 04/24/17 21:19 Uric Acid 3.6 mg/dL (4.4-7.6) L 04/20/17 07:00 Calcium 9.0 mg/dL (8.6-10.3) 05/01/17 04:30 Phosphorus 4.4 mg/dL (2.5-5.0) 05/01/17 04:30 Magnesium 2.3 mg/dL (1.9-2.7) 05/01/17 04:30 Total Bilirubin 0.5 mg/dL (0.3-1.0) 04/30/17 04:35 AST 39 U/L (13-39) 04/30/17 04:35 ALT 19 U/L (7-52) 04/30/17 04:35 Alkaline Phosphatase 100 U/L (34-104) 04/30/17 04:35 Ammonia 26 umol/L (16-53) 04/30/17 04:35 Creatine Kinase 136 U/L (30-223) 04/14/17 14:55 Troponin I 0.01 ng/mL (0.01-0.05) 04/22/17 05:04 C-Reactive Protein 28.9 mg/dL (0.0-0.9) H 04/20/17 07:00 B-Natriuretic Peptide 85.5 pg/mL (5.0-100.0) 04/14/17 14:55 Total Protein 7.2 gm/dL (6.0-8.3) 04/30/17 04:35 Albumin 2.4 gm/dL (4.2-5.5) L 04/30/17 04:35 Globulin 4.8 gm/dL 04/30/17 04:35 Albumin/Globulin Ratio 0.5 (1.0-1.8) L 04/30/17 04:35 Prealbumin 9 mg/dL (10-36) L 04/27/17 04:30 Triglycerides 290 mg/dL (<150) H 05/01/17 04:30 Cholesterol 78 mg/dL (<200) 04/27/17 04:30 LDL Cholesterol Direct 38 mg/dL (75-193) L 04/14/17 14:55 HDL Cholesterol 13 mg/dL (23-92) L 04/14/17 14:55 Amylase 31 U/L (29-103) 04/14/17 14:55 Lipase 15 U/L (11-82) 04/14/17 14:55 Urine Source [place] 04/25/17 07:35 Urine Color YELLOW 04/25/17 07:35 Urine Clarity CLEAR (CLEAR) 04/25/17 07:35 Urine pH 5.5 04/25/17 07:35 Ur Specific [place] 1.015 (1.005-1.030) 04/25/17 07:35 Urine Protein TRACE mg/dL (NEGATIVE) 04/25/17 07:35 Urine Glucose (UA) NEGATIVE mg/dL (NEGATIVE) 04/25/17 07:35 Urine Ketones NEGATIVE mg/dL (NEGATIVE) 04/25/17 07:35 Urine Blood SMALL (NEGATIVE) H 04/25/17 07:35 Urine Nitrate NEGATIVE (NEGATIVE) 04/25/17 07:35 Urine Bilirubin NEGATIVE (NEGATIVE) 04/25/17 07:35 Urine Urobilinogen 0.2 E.U./dL (0.2 - 1.0) 04/25/17 07:35 Ur Leukocyte Esterase NEGATIVE (NEGATIVE) 04/25/17 07:35 Urine RBC 0-2 /hpf (0-5) H 04/25/17 07:35 Urine WBC 0-2 /hpf (0-5) 04/25/17 07:35 Ur Epithelial Cells OCCASIONAL /lpf (FEW) 04/25/17 07:35 Amorphous Sediment MANY URATES (NONE SEEN) 04/14/17 15:05 Urine Bacteria FEW /hpf (NONE SEEN) 04/25/17 07:35 Vancomycin Trough 13.5 ug/mL (10-20) 04/19/17 19:20 Blood Type O POSITIVE 04/28/17 14:35 Antibody Screen NEGATIVE 04/28/17 14:35 Crossmatch See Detail 04/28/17 14:35 - Physical Exam Vitals and I&O: Vital Signs Temp 101 F 05/01/17 07:00 Pulse 118 05/01/17 07:00 Resp 36 05/01/17 07:43 BP 95/56 05/01/17 07:00 Pulse Ox 100 05/01/17 07:43 Active Medications: Current Medications Acetaminophen (Tylenol) 650 mg PO Q6H PRN PRN Reason: FEVER/PAIN Stop: 06/21/17 17:45 Last Admin: 05/01/17 06:07 Dose: 650 mg Albuterol/Ipratropium (Duoneb Neb) 3 ml HHN Q4HRT [facility] Stop: 06/15/17 14:59 Last Admin: 05/01/17 11:47 Dose: 3 ml Amiodarone HCl (Cordarone) 200 mg NG BID [facility] Stop: 06/24/17 23:14 Last Admin: 04/30/17 18:44 Dose: 200 mg Budesonide (Pulmicort) 0.5 mg HHN BIDRT [facility] Stop: 06/15/17 18:59 Last Admin: 05/01/17 07:41 Dose: 0.5 mg Chlorhexidine Gluconate (Peridex) 15 ml MM 0800,1999 [facility] Stop: 06/30/17 19:59 Famotidine (Pepcid) 20 mg IVP Q12H [facility] Stop: 06/24/17 09:14 Last Admin: 04/30/17 20:37 Dose: 20 mg Multivitamins/Minerals 10 ml/Dextrose/ Amino Acids/Electrolytes/ Fat Emulsion Intravenous 2,400 mls @ 100 mls/hr IV .Q24H [facility] Stop: 06/23/17 15:59 Last Admin: 04/30/17 18:37 Dose: 100 mls/hr Dextrose/Sodium Chloride (D5-0.45ns) 1,000 mls @ 40 mls/hr IV .Q24H [facility] Stop: 06/23/17 15:59 Last Admin: 04/28/17 22:00 Dose: 40 mls/hr Linezolid (Zyvox) 600 mg in 300 mls @ 300 mls/hr IV Q12HR [facility] Stop: 06/23/17 22:59 Last Admin: 04/30/17 20:57 Dose: 300 mls/hr Fluconazole (Diflucan) 200 mg in 100 mls @ 100 mls/hr IV Q24HR [facility] Stop: 06/23/17 22:59 Last Admin: 04/30/17 23:42 Dose: 100 mls/hr Diltiazem HCl 125 mg/ Dextrose 125 mls @ 10 mls/hr IV TITR ARIAN; 10 MG/HR PRN Reason: Protocol Stop: 06/24/17 12:41 Last Admin: 05/01/17 01:28 Dose: 15 mg/hr, 15 mls/hr Propofol (Diprivan) 1,000 mg in 100 mls @ 0 mls/hr IV TITR ARIAN; Per Protocol PRN Reason: Protocol Stop: 06/30/17 09:16 Norepinephrine Bitartrate 4 mg (/ Dextrose) 254 mls @ 0 mls/hr IV TITR PRN; Protocol; 0 MCG/MIN PRN Reason: BP MAINTENANCE (PER PROTOCOL) Stop: 06/30/17 09:25 Meropenem 1 gm/ Sodium (Chloride) 100 mls @ 100 mls/hr IV Q8H [facility] Stop: 06/30/17 11:14 Insulin Aspart (Novolog Insulin Sliding Scale) 0 units SUBQ Q6HR [facility] PRN Reason: Protocol Stop: 06/16/17 17:59 Last Admin: 05/01/17 06:38 Dose: 4 units Lorazepam (Ativan) 1 mg IVP Q4HR PRN; Protocol PRN Reason: Agitation Stop: 06/25/17 10:40 Last Admin: 05/01/17 04:57 Dose: 1 mg Metoprolol Tartrate (Lopressor) 25 mg PO BID [facility] Stop: 06/26/17 08:59 Last Admin: 04/30/17 18:15 Dose: 25 mg Miscellaneous (Probiotic Screen) 1 ea PRN PRN PRN Reason: PROTOCOL Stop: 06/14/17 09:39 Miscellaneous (Clinical Monitoring) 1 ea DAILY PRN PRN Reason: RENAL Stop: 06/15/17 12:48 Miscellaneous (Tpn Per Pharmacy) 1 [facility] PRN PRN PRN Reason: PROTOCOL Stop: 06/16/17 12:28 Ondansetron HCl (Zofran) 4 mg IVP Q6H PRN PRN Reason: Nausea / Vomiting Stop: 06/13/17 20:08 Last Admin: 04/25/17 21:06 Dose: 4 mg General: Mild distress HEENT: Atraumatic, PERRLA, EOMI, Mucous membr. moist/pink, Other Neck: Supple, +2 carotid pulse wo bruit Cardiovascular: Regular rate, Normal S1, Normal S2 Lungs: Other (diffuse rhonchi.) Abdomen: Soft, Distended, Other ( wound VAC anterior abdominal wall wound. L colostomy+) Extremities: Other (no edema and cyanosis.) Neurological: Reflexes 2+, Other (patient is confused and agitated.) Psych/Mental Status: Other (gets agitated at times.) - Procedures Procedures: Procedures Procedure Code Date BYPASS SIGMOID COLON TO CUTANEOUS, OPEN APPROACH [id number] 04/14/17 PARTIAL REMOVAL OF COLON 46457 04/14/17 RESECTION OF SIGMOID COLON, OPEN APPROACH [id number] 04/14/17 RESPIRATORY VENTILATION, 24-96 CONSECUTIVE HOURS [id number] 04/14/17 VENT MGMT INPAT INIT DAY [id number] 04/14/17 Assessment/Plan - Problem List Patient Problems: All Active Problems Abscess of sigmoid colon due to diverticulitis (Acute) K57.20 Diverticulitis of sigmoid colon (Acute) K57.32 Obesity (Acute) E66.9 Perforation of sigmoid colon due to diverticulitis (Acute) K57.20 Peritonitis (acute) generalized (Acute) K65.0
--- NOTE | 2017-05-01 14:10 | General Progress Note ---
Subjective - Review of Systems Subjective: Patient is seen and examined. Patient is MICU bed and 10. Patient's family at bedside. Patient had a CODE BLUE followed by endotracheal intubation and mechanical ventilation. Patient is currently on propofol drip discussed with nursing staff about the treatment plan. Overall prognosis is guarded . Objective - Results Result Diagrams: 04/30/17 04:35 05/01/17 04:30 Recent Labs: Laboratory Last Values WBC 9.8 Th/cmm (4.8-10.8) 04/30/17 04:35 RBC 3.11 Mil/cmm (4.30-5.70) L 04/30/17 04:35 Hgb 8.2 gm/dL (13.2-17.3) L 04/30/17 04:35 Hct 24.3 % (39.0-49.0) L 04/30/17 04:35 MCV 78.2 fl (80-99) L 04/30/17 04:35 MCH 26.3 pg (26.0-30.0) 04/30/17 04:35 MCHC Differential 33.6 pg (28.0-36.0) 04/30/17 04:35 RDW 14.8 % (11.5-20.0) 04/30/17 04:35 Plt Count 506 Th/cmm (150-400) H 04/30/17 04:35 MPV 8.0 fl 04/30/17 04:35 Neutrophils % 73.8 % (40.0-80.0) 04/30/17 04:35 Band Neutrophils % 3 % (0-10) 04/28/17 06:08 Lymphocytes % 12.1 % (20.0-50.0) L 04/30/17 04:35 Monocytes % 7.7 % (2.0-10.0) 04/30/17 04:35 Eosinophils % 5.2 % (0.0-5.0) H 04/30/17 04:35 Basophils % 1.2 % (0.0-2.0) 04/30/17 04:35 Neutrophils (Manual) 73 % (40-80) 04/28/17 06:08 Lymphocytes 9 % (20-50) L 04/28/17 06:08 Monocytes 9 % (2-10) 04/28/17 06:08 Eosinophils 6 % (0-5) H 04/28/17 06:08 Metamyelocytes 1 % (0-0) H 04/22/17 05:04 Platelet Estimate INCREASED PLATELETS (NORMAL) 04/28/17 06:08 Platelet Morphology NORMAL (NORMAL) 04/28/17 06:08 Anisocytosis 1+ 04/28/17 06:08 Microcytosis 1+ 04/28/17 06:08 RBC Morph Micro Appear ABNORMAL (NORMAL) 04/28/17 06:08 ESR > 140 mm/hr (0-20) H 04/20/17 07:00 PT 11.9 SECONDS (9.5-11.5) H 04/24/17 21:19 INR 1.13 (0.5-1.4) 04/24/17 21:19 PTT (Actin FS) 27.6 SECONDS (26.0-38.0) 04/24/17 21:19 Specimen Source Arterial 05/01/17 10:15 Sample Site Right Radial 05/01/17 10:15 pH 7.29 (7.35-7.45) L 05/01/17 10:15 pCO2 76.0 mmHg (35.0-45.0) H* 05/01/17 10:15 pO2 516.0 mmHg (80.0-100.0) H 05/01/17 10:15 HCO3 30.8 mEq/L (20.0-26.0) H 05/01/17 10:15 Base Excess 7.4 mEq/L (-3.0-3.0) H 05/01/17 10:15 O2 Saturation 100.0 % (92.0-100.0) 05/01/17 10:15 Chau Test Positive 05/01/17 10:15 Vent Rate 12 05/01/17 10:15 Inspired O2 100 05/01/17 10:15 Tidal Volume NA 05/01/17 10:15 PEEP NA 05/01/17 10:15 Pressure (ins/psv/peep) NA 05/01/17 10:15 Critical Value IZRUBYG 05/01/17 10:15 Sodium 137 mEq/L (136-145) 05/01/17 04:30 Potassium 4.0 mEq/L (3.5-5.1) 05/01/17 04:30 Chloride 98 mEq/L (98-107) 05/01/17 04:30 Carbon Dioxide 35.7 mEq/L (21.0-31.0) H 05/01/17 04:30 Anion Gap 7.3 (7.0-16.0) 05/01/17 04:30 BUN 23 mg/dL (7-25) 05/01/17 04:30 Creatinine 1.3 mg/dL (0.7-1.3) 05/01/17 04:30 Est GFR ( Amer) > 60.0 ml/min (>90) 05/01/17 04:30 Est GFR (Non-Af Amer) > 60.0 ml/min 05/01/17 04:30 BUN/Creatinine Ratio 17.7 05/01/17 04:30 Glucose 218 mg/dL (70-105) H 05/01/17 04:30 POC Glucose 197 MG/DL (70 - 105) H 05/01/17 11:33 Hemoglobin A1c % 6.7 % (4.0-6.0) H 04/22/17 05:04 Whole Bld Lactic Acid 1.30 mmol/L (0.60-1.99) 04/24/17 21:19 Uric Acid 3.6 mg/dL (4.4-7.6) L 04/20/17 07:00 Calcium 9.0 mg/dL (8.6-10.3) 05/01/17 04:30 Phosphorus 4.4 mg/dL (2.5-5.0) 05/01/17 04:30 Magnesium 2.3 mg/dL (1.9-2.7) 05/01/17 04:30 Total Bilirubin 0.5 mg/dL (0.3-1.0) 04/30/17 04:35 AST 39 U/L (13-39) 04/30/17 04:35 ALT 19 U/L (7-52) 04/30/17 04:35 Alkaline Phosphatase 100 U/L (34-104) 04/30/17 04:35 Ammonia 26 umol/L (16-53) 04/30/17 04:35 Creatine Kinase 136 U/L (30-223) 04/14/17 14:55 Troponin I 0.01 ng/mL (0.01-0.05) 04/22/17 05:04 C-Reactive Protein 28.9 mg/dL (0.0-0.9) H 04/20/17 07:00 B-Natriuretic Peptide 85.5 pg/mL (5.0-100.0) 04/14/17 14:55 Total Protein 7.2 gm/dL (6.0-8.3) 04/30/17 04:35 Albumin 2.4 gm/dL (4.2-5.5) L 04/30/17 04:35 Globulin 4.8 gm/dL 04/30/17 04:35 Albumin/Globulin Ratio 0.5 (1.0-1.8) L 04/30/17 04:35 Prealbumin 9 mg/dL (10-36) L 04/27/17 04:30 Triglycerides 290 mg/dL (<150) H 05/01/17 04:30 Cholesterol 78 mg/dL (<200) 04/27/17 04:30 LDL Cholesterol Direct 38 mg/dL (75-193) L 04/14/17 14:55 HDL Cholesterol 13 mg/dL (23-92) L 04/14/17 14:55 Amylase 31 U/L (29-103) 04/14/17 14:55 Lipase 15 U/L (11-82) 04/14/17 14:55 Urine Source [place] 04/25/17 07:35 Urine Color YELLOW 04/25/17 07:35 Urine Clarity CLEAR (CLEAR) 04/25/17 07:35 Urine pH 5.5 04/25/17 07:35 Ur Specific [place] 1.015 (1.005-1.030) 04/25/17 07:35 Urine Protein TRACE mg/dL (NEGATIVE) 04/25/17 07:35 Urine Glucose (UA) NEGATIVE mg/dL (NEGATIVE) 04/25/17 07:35 Urine Ketones NEGATIVE mg/dL (NEGATIVE) 04/25/17 07:35 Urine Blood SMALL (NEGATIVE) H 04/25/17 07:35 Urine Nitrate NEGATIVE (NEGATIVE) 04/25/17 07:35 Urine Bilirubin NEGATIVE (NEGATIVE) 04/25/17 07:35 Urine Urobilinogen 0.2 E.U./dL (0.2 - 1.0) 04/25/17 07:35 Ur Leukocyte Esterase NEGATIVE (NEGATIVE) 04/25/17 07:35 Urine RBC 0-2 /hpf (0-5) H 04/25/17 07:35 Urine WBC 0-2 /hpf (0-5) 04/25/17 07:35 Ur Epithelial Cells OCCASIONAL /lpf (FEW) 04/25/17 07:35 Amorphous Sediment MANY URATES (NONE SEEN) 04/14/17 15:05 Urine Bacteria FEW /hpf (NONE SEEN) 04/25/17 07:35 Vancomycin Trough 13.5 ug/mL (10-20) 04/19/17 19:20 Blood Type O POSITIVE 04/28/17 14:35 Antibody Screen NEGATIVE 04/28/17 14:35 Crossmatch See Detail 04/28/17 14:35 - Physical Exam Vitals and I&O: Vital Signs Temp 101 F 05/01/17 07:00 Pulse 118 05/01/17 07:00 Resp 36 05/01/17 07:43 BP 95/56 05/01/17 07:00 Pulse Ox 100 05/01/17 07:43 Intake & Output 04/30/17 05/01/17 05/01/17 18:59 06:59 18:59 Intake Total 4334.5 1700 Output Total 1508 1025 Balance 2826.5 675 Weight (lbs) 101.151 kg 91.172 kg Intake: Intake, IV Amount 3034.5 Diltiazem 125 mg In 234.5 Dextrose 5% 100 ml @ 10 MG/HR 10 mls/hr IV TITR ARIAN Rx#:[id number] Linezolid 600mg/300mL 600 300 mg In 300 ml @ 300 mls/ hr IV Q12HR ARIAN Rx#: [id number] Meropenem 1 gm In Sodium 100 Chloride 0.9% 100 ml @ 100 mls/hr IV Q12HR ARIAN Rx#:[id number] Multivitamin Inj 10 ml In 2400 Dextrose 70% 1,740 ml In Amino Acids 10% 500 ml In Intralipids 20% 150 ml @ 100 mls/hr IV .Q24H ARIAN Rx#:[id number] Oral 100 0 TPN/PPN 1200 1200 Other 500 Output: Gastric Drainage 100 Drainage 3 Medial Abdomen 3 Urine 1500 900 Stool 5 Other 25 Other: Stool Characteristics Liquid Liquid Brown Brown Active Medications: Current Medications Acetaminophen (Tylenol) 650 mg PO Q6H PRN PRN Reason: FEVER/PAIN Stop: 06/21/17 17:45 Last Admin: 05/01/17 06:07 Dose: 650 mg Albuterol/Ipratropium (Duoneb Neb) 3 ml HHN Q4HRT [facility] Stop: 06/15/17 14:59 Last Admin: 05/01/17 11:47 Dose: 3 ml Amiodarone HCl (Cordarone) 200 mg NG BID [facility] Stop: 06/24/17 23:14 Last Admin: 04/30/17 18:44 Dose: 200 mg Budesonide (Pulmicort) 0.5 mg HHN BIDRT [facility] Stop: 06/15/17 18:59 Last Admin: 05/01/17 07:41 Dose: 0.5 mg Chlorhexidine Gluconate (Peridex) 15 ml MM 0800,2000 [facility] Stop: 06/30/17 19:59 Famotidine (Pepcid) 20 mg IVP Q12H [facility] Stop: 06/24/17 09:14 Last Admin: 04/30/17 20:37 Dose: 20 mg Multivitamins/Minerals 10 ml/Dextrose/ Amino Acids/Electrolytes/ Fat Emulsion Intravenous 2,400 mls @ 100 mls/hr IV .Q24H [facility] Stop: 06/23/17 15:59 Last Admin: 04/30/17 18:37 Dose: 100 mls/hr Dextrose/Sodium Chloride (D5-0.45ns) 1,000 mls @ 40 mls/hr IV .Q24H [facility] Stop: 06/23/17 15:59 Last Admin: 04/28/17 22:00 Dose: 40 mls/hr Linezolid (Zyvox) 600 mg in 300 mls @ 300 mls/hr IV Q12HR [facility] Stop: 06/23/17 22:59 Last Admin: 04/30/17 20:57 Dose: 300 mls/hr Fluconazole (Diflucan) 200 mg in 100 mls @ 100 mls/hr IV Q24HR [facility] Stop: 06/23/17 22:59 Last Admin: 04/30/17 23:42 Dose: 100 mls/hr Diltiazem HCl 125 mg/ Dextrose 125 mls @ 10 mls/hr IV TITR ARIAN; 10 MG/HR PRN Reason: Protocol Stop: 06/24/17 12:41 Last Admin: 05/01/17 01:28 Dose: 15 mg/hr, 15 mls/hr Propofol (Diprivan) 1,000 mg in 100 mls @ 0 mls/hr IV TITR ARIAN; Per Protocol PRN Reason: Protocol Stop: 06/30/17 09:16 Norepinephrine Bitartrate 4 mg (/ Dextrose) 254 mls @ 0 mls/hr IV TITR PRN; Protocol; 0 MCG/MIN PRN Reason: BP MAINTENANCE (PER PROTOCOL) Stop: 06/30/17 09:25 Meropenem 1 gm/ Sodium (Chloride) 100 mls @ 100 mls/hr IV Q8H [facility] Stop: 06/30/17 11:14 Insulin Aspart (Novolog Insulin Sliding Scale) 0 units SUBQ Q6HR [facility] PRN Reason: Protocol Stop: 06/16/17 17:59 Last Admin: 05/01/17 06:38 Dose: 4 units Lorazepam (Ativan) 1 mg IVP Q4HR PRN; Protocol PRN Reason: Agitation Stop: 06/25/17 10:40 Last Admin: 05/01/17 04:57 Dose: 1 mg Metoprolol Tartrate (Lopressor) 25 mg PO BID [facility] Stop: 06/26/17 08:59 Last Admin: 04/30/17 18:15 Dose: 25 mg Miscellaneous (Probiotic Screen) 1 [facility] PRN PRN PRN Reason: PROTOCOL Stop: 06/14/17 09:39 Miscellaneous (Clinical Monitoring) 1 [facility] DAILY PRN PRN Reason: RENAL Stop: 06/15/17 12:48 Miscellaneous (Tpn Per Pharmacy) 1 [facility] PRN PRN PRN Reason: PROTOCOL Stop: 06/16/17 12:28 Ondansetron HCl (Zofran) 4 mg IVP Q6H PRN PRN Reason: Nausea / Vomiting Stop: 06/13/17 20:08 Last Admin: 04/25/17 21:06 Dose: 4 mg General: Mild distress HEENT: Atraumatic, PERRLA, EOMI, Mucous membr. moist/pink, Other Neck: Supple, +2 carotid pulse wo bruit Cardiovascular: Regular rate, Normal S1, Normal S2 Lungs: Other (diffuse rhonchi.) Abdomen: Soft, Distended, Other ( wound VAC anterior abdominal wall wound. L colostomy+) Extremities: Other (no edema and cyanosis.) Neurological: Reflexes 2+, Other (patient is confused and agitated.) Psych/Mental Status: Other (gets agitated at times.) - Procedures Procedures: Procedures Procedure Code Date BYPASS SIGMOID COLON TO CUTANEOUS, OPEN APPROACH [id number] 04/14/17 PARTIAL REMOVAL OF COLON 05258 04/14/17 RESECTION OF SIGMOID COLON, OPEN APPROACH [id number] 04/14/17 RESPIRATORY VENTILATION, 24-96 CONSECUTIVE HOURS [id number] 04/14/17 VENT MGMT INPAT INIT DAY 27154 04/14/17 Assessment/Plan - Problem List Patient Problems: All Active Problems Abscess of sigmoid colon due to diverticulitis (Acute) K57.20 Diverticulitis of sigmoid colon (Acute) K57.32 Obesity (Acute) E66.9 Perforation of sigmoid colon due to diverticulitis (Acute) K57.20 Peritonitis (acute) generalized (Acute) K65.0 - Assessment Assessment: Current Active Problems Problem Status Onset Abscess of sigmoid colon due to diverticulitis Acute Diverticulitis of sigmoid colon Acute Obesity Acute Perforation of sigmoid colon due to diverticulitis Acute Peritonitis (acute) generalized Acute Perforated diverticulitis status post expiratory laparotomy and colostomy placement. Postoperative respiratory failure. Obesity. Polymicrobial peritonitis due to perforation.. Asthma. SVT currently on Cardizem drip Electrolyte imbalance. SEKOU improving. Encephalopathy due to metabolic and infectious etio. Open surgical wound . Altered mental status secondary to metabolic and infectious encephalopathy. Postop anemia. - Plan Plan: Wound Vac as per surgery. IVF and TPN. Correct electrolytes. IV antibiotics as per ID. Rate control. vent support. Monitor strict I's and O's. Pulmonary follow-up. GI and DVT prophylaxis. Follow-up lab. Follow up on consultants recommendations. Symptoms management. Medication management. Overall prognosis is guarded. Care plan discussed with RN and family. Nutritional Asmnt/Malnutr-PDOC - Dietary Evaluation Malnutrition Findings (Please click <Entered> for more info): Nutritional Asmnt/Malnutrition Start: 04/19/17 14: 21 Text: Status: Complete Freq: Document 04/19/17 14:21 GSUN (Rec: 04/19/17 14:58 [id number]) Nutritional Asmnt/Malnutrition Patient General Information Nutritional Screening Moderate Risk Screening Diagnosis Sepsis, diverticulitis, peritonitis Pertinent Medical Hx/Surgical Hx Asthma, diverticulosis Subjective Information 56 year old male frome home. Pt was restless, moving extremities during visit. 04/14 : sigmoid colectomy, end colostomy, abscess drainage, diffuse peritontis. 04/16: pt started PPN. 04/17: central line and started on TPN. Spoke to family at bedside, explained parenteral nutrition , family undersoto and has no further question at this time. Weight discrepancies noted in EMR, family does not know UBW , estimated nutritional needs based Current Diet Order/ Nutrition Support TPN D10% AA4.25% at 90ml/hr with IL20% 150ml, providing 1401.6kcal Pertinent Medications Dilaudid, Novolog, Culturelle, Magnesium Sulfate, Vancomycin , TPN, Morphine, Multivitamins , Zofran, Protonix, Nacl0.9% Pertinent Labs 04/14: triglycerides 106, total bilirubin 1.1H, glucose 116H 04/17: magnesium 2.5, phsophorus 3.2 04/19: magnesium 1.8L, phosphorus 2.4L, BUN 28H, creatinine 1.3, glucose 154H, total bilirubin 1.1H, triglycerides 238H Nutritional Hx/Data Height 1.7 m Height (Calculated Centimeters) 170.2 Current Weight (lbs) 95.254 kg Weight (Calculated Kilograms) 95.3 Weight (Calculated Grams) 02663.4 [place] Body Weight 148 Weight Status Overweight GI Symptoms Skin Integrity/Comment: [place] 14. Facial non-pitting 1+, bilateral hands pitting 1+ Estimated Nutritional Goals Calories/Kcals/Kg IBW 148/67.3kg Kcals Calculated 2019-2356kcal (30-35kcal/kg) Protein Calculated 101-135g (1.5-2g/kg) Fluid: ml Per MD Nutritional Problem 1. Problem Problem Altered GI function related to Etiology abscess and perforation of sigmoid colon due to diverticulitis aeb Signs/Symptoms: post-operative, on TPN Intervention/Recommendation Comments 1. Recommend TPN D15% AA5.5% at 100ml/hr with IL20% 150ml, providing 2400ml total volume, 2052kcal, 132g protein, meeting 100% of estimated nutritional needs. Carb load 2 .6mg/kg/min (using 210lb adm weight). 2. Monitor for possible refeeding syndrome, 04/18: phsophorus 2.1L, 04/19: magnesium 1.9. 3. Monitor triglycerides, total bilirubin, glucose, renal labs. Expected Outcomes/Goals Expected Outcomes/Goals 1. Pt to meet 100% of estimated nutritional needs on TPN.
[2017-05-01] MEDS: Meropenem 1 GM in Sodium Chloride 0.9% 100 ML IV SCH ×2 (17:11→21:23)
[2017-05-01] MEDS: Chlorhexidine Gluconate 0.12% 15mL Mouthwash MM SCH ×2 (20:00→23:55)
[2017-05-01] MEDS: TPN 10%-70% CUSTOM IV SCH (20:09)
[2017-05-01] MEDS: Linezolid 600mg/300mL 600 MG/300 ML BAG IV SCH ×2 (23:20→23:55)
[2017-05-02] MEDS: Fluconazole 200mg/100mL 200 MG/100 ML BAG IV SCH ×2 (00:58→13:00)
[2017-05-02] MEDS: D5-0.45NS 1,000 ML IV SCH ×2 (01:10→02:45)
[2017-05-02] MEDS: Albuterol/Ipratropium Neb 3 ML AERS HHN SCH ×6 (03:27→23:22)
[2017-05-02] MEDS: Meropenem 1 GM in Sodium Chloride 0.9% 100 ML IV SCH ×3 (04:19→19:00)
[2017-05-02 05:32] LABS: MEAN CELL VOLUME 78.4 fl (80-99); MEAN CORPUSCULAR HEMOGLOBIN 26.1 pg (26.0-30.0); MEAN CORPUSCULAR HGB CONC 33.3 pg (28.0-36.0); MEAN PLATELET VOLUME 7.2 fl; RED BLOOD COUNT 2.76 Mil/cmm (4.30-5.70); RED CELL DISTRIBUTION WIDTH 15.1 % (11.5-20.0)
[2017-05-02 06:11] LABS: ALB/GLOB RATIO 0.5 (1.0-1.8); ALKALINE PHOSPHATASE 88 U/L (34-104); ANION GAP 8.8 (7.0-16.0); BILIRUBIN,DIRECT 0.11 mg/dL (0.0-0.2); BILIRUBIN,TOTAL 0.3 mg/dL (0.3-1.0); BUN - UREA NITROGEN 25 mg/dL (7-25); BUN/CREATININE RATIO 20.8; CALCIUM SERUM 8.4 mg/dL (8.6-10.3); CARBON DIOXIDE 34.8 mEq/L (21.0-31.0); CHLORIDE 98 mEq/L (98-107); CREATININE - SERUM 1.2 mg/dL (0.7-1.3); GLUCOSE 183 mg/dL (70-105); MAGNESIUM 2.2 mg/dL (1.9-2.7); POTASSIUM SERUM 3.6 mEq/L (3.5-5.1); SGOT 33 U/L (13-39); SGPT/ALT 15 U/L (7-52); SODIUM SERUM 138 mEq/L (136-145)
[2017-05-02] MEDS: INSULIN ASPART SLIDING SCALE 100 UNITS/ML UNIT SUBQ SCH ×4 (06:32→23:29)
[2017-05-02 06:38] LABS: WHITE BLOOD COUNT 6.3 Th/cmm (4.8-10.8)
[2017-05-02 06:39] LABS: HEMATOCRIT 21.6 % (39.0-49.0); HEMOGLOBIN 7.2 gm/dL (13.2-17.3); PLATELET COUNT 389 Th/cmm (150-400)
[2017-05-02] MEDS: Budesonide 0.5 Mg/2 mL Ud HHN SCH ×2 (07:38→19:14)
[2017-05-02] MEDS: Chlorhexidine Gluconate 0.12% 15mL Mouthwash MM SCH ×4 (08:05→20:35)
--- NOTE | 2017-05-02 08:12 | Diagnostic Imaging Report ---
Nuclear medicine VQ scan HISTORY: Shortness of breath, rule out pulmonary embolus COMPARISON: Chest x-ray on CT angiogram chest on 05/01/2017 Technique/procedure: For the ventilation portion of examination 40.8 mCi of technetium labeled DTPA was administered via aerosol and multiple scintigraphic images of the lungs were obtained. For the perfusion portion of examination 5.0 millicuries of technetium 99 labeled MAA was administered intravenously and multiple scintigraphic images of the lungs were obtained. Normal perfusion and ventilation is demonstrated. No V/Q mismatches identified. IMPRESSION: Negative VQ scan for pulmonary embolus.
[2017-05-02] MEDS: Linezolid 600mg/300mL 600 MG/300 ML BAG IV SCH ×2 (09:00→21:06)
[2017-05-02 09:09] LABS: BAND NEUTROPHILE 4 % (0-10); EOSINOPHIL 6 % (0-5); NEUTROPHILS 68 % (40-80); TOTAL CELLS COUNTED 100
[2017-05-02 09:10] LABS: MICROCYTOSIS 1+; PLATELET ESTIMATE ADEQUATE (NORMAL); PLATELET MORPHOLOGY NORMAL (NORMAL)
[2017-05-02] MEDS: Pantoprazole 80 MG in Sodium Chloride 0.9% 100 ML IV SCH ×2 (10:23→20:00)
[2017-05-02 10:36] LABS: ABG SOURCE Arterial; ALLEN TEST Positive; BE(B) 16.3 mEq/L (-3.0-3.0); HCO3 37.7 mEq/L (20.0-26.0); pH 7.54 (7.35-7.45)
[2017-05-02 10:37] LABS: FIO2 40; MECH RATE 16; MECH VT 450
--- NOTE | 2017-05-02 10:46 | Diagnostic Imaging Report ---
Bilateral lower extremity DVT study HISTORY: Pain COMPARISON: None Technique: Longitudinal and transverse sonographic images of the bilateral lower extremity veins were obtained with doppler analysis. FINDINGS: Exam is limited due to body habitus. There is normal compressibility, augmentation and phasicity of the bilateral common femoral, superficial femoral, popliteal, and posterior tibial veins. No thrombus is visualized. IMPRESSION: No evidence of thrombus within the bilateral lower extremity veins.
--- NOTE | 2017-05-02 10:51 | Diagnostic Imaging Report ---
CHEST X-RAY: AP view INDICATION: Pneumonia COMPARISON: Chest x-ray 05/01/2017 FINDINGS: Support devices are stable accounting for differences in positioning. Increased bibasilar lung markings are noted. There may be trace bilateral effusions. Borderline prominent heart is noted. IMPRESSION: Increased right basal lung markings favoring atelectatic changes. Faint infiltrates would be considered less likely. Clinical correlation is recommended.
--- NOTE | 2017-05-02 11:46 | Diagnostic Imaging Report ---
CT Chest PE study, angiogram Indication: Shortness of breath, rule out PE Comparison: Chest x-ray on 05/01/2017, Technique: Axial images were obtained from the base of the neck to the upper abdomen, following administration of IV contrast, PE protocol. Multiplanar reconstructions were made. total DLP: 468, CTDI19 FINDINGS: Endotracheal tube is seen with tip 4.4 cm above the Jol[place]. NG tube is seen stomach. No evidence of mediastinal lymphadenopathy. Mild atherosclerotic vascular disease is noted. The heart size is normal. No evidence of an aortic aneurysm. Assessment of the pulmonary vasculature demonstrates faint areas of low density seen within the left lower lobe pulmonary arterial branches. Small pulmonary emboli cannot be excluded. The lung [place] demonstrate hypoventilatory and atelectatic changes with small right effusion and right basal changes and trace left effusion left basal consolidative changes. There is a 3 noted nodular opacity along the minor fissure. Degenerative changes of the spine are noted. IMPRESSION: Faint areas of low density and possible tiny filling defects involving the branches of the pulmonary arteries supplying the left lower lobe. Small pulmonary emboli cannot be excluded. Please correlate correlate with clinical findings. Please refer to follow up nuclear medicine VQ scan for further detail and findings. Small right effusion and trace left effusion with bibasal infiltrates and consolidative changes 3 mm nodule along the minor fissure nonspecific and may be due to infectious or inflammatory process. Consider follow surveillance in 12-18 months if indicated.
--- NOTE | 2017-05-02 11:53 | Diagnostic Imaging Report ---
CT abdomen and pelvis with intravenous contrast Indication: Abscess Comparison: CT abdomen and pelvis on 04/25/2017, Technique: Axial images were obtained from the lung bases to the bilateral proximal femurs with IV contrast. Coronal reconstructions were made. total DLP: 888, CTDI18 FINDINGS: There is fatty infiltration of the liver. No evidence of focal lesions. Exam is limited due to motion. No focal splenic lesions. No focal pancreatic lesions. No evidence of Hydronephrosis. Subcentimeter low-density lesion of the right kidney is noted to small to characterize the suggestive of a cyst. A right lower quadrant approach drainage catheter is seen to remain within the left lower quadrant. There are inflammatory changes seen throughout the mesentery with small amount of fluid seen located superior to the drainage catheter measuring 3 x 2 cm (coronal image 29 and axial image 60) additional trace free fluid in the abdomen and pelvis is noted. There are surgical defects throughout the anterior abdominal wall at the midline and left side. A left lower quadrant colostomy is noted. There is evidence of prior sigmoid colonic resection. No evidence of free fluid or free air. There is close apposition of the stomach to the anterior abdominal wall. Small bilateral fat-containing inguinal hernias are noted. Thorne catheter seen within nondistended urinary bladder. Degenerative changes of the spine are noted. IMPRESSION: Right lower quadrant approach surgical drain terminating within the left lower quadrant. There is evidence of previous sigmoid colon resection with left lower quadrant ostomy noted. Haziness and mild inflammatory changes seen throughout the mesentery with trace free fluid including small 3 x 2 cm fluid, possibly small collection seen located superior to the drainage catheter. Otherwise no significant fluid collections identified. Additional postsurgical changes with defects along the anterior abdominal wall. Fatty infiltration of the liver. NG tube in the stomach. There is close apposition of the stomach to the anterior abdominal wall.
[2017-05-02] MEDS ORDERED: VTE Chemical Prophylaxis Screen/Admission MC PRN (14:45)
[2017-05-02] MEDS: TPN 10%-70% CUSTOM IV SCH (16:12)
--- NOTE | 2017-05-02 16:43 | General Progress Note ---
Subjective - Review of Systems Subjective: Patient is seen and examined. Patient is MICU bed and 10. Patient's family at bedside. Patient is intubated and mechanicaliy ventilated. Patient is currently on propofol drip discussed with nursing staff about the treatment plan. Overall prognosis is guarded . Objective - Results Result Diagrams: 05/02/17 05:15 05/02/17 05:15 Recent Labs: Laboratory Last Values WBC 6.3 Th/cmm (4.8-10.8) D 05/02/17 05:15 RBC 2.76 Mil/cmm (4.30-5.70) L 05/02/17 05:15 Hgb 7.2 gm/dL (13.2-17.3) L* D 05/02/17 05:15 Hct 21.6 % (39.0-49.0) L* D 05/02/17 05:15 MCV 78.4 fl (80-99) L 05/02/17 05:15 MCH 26.1 pg (26.0-30.0) 05/02/17 05:15 MCHC Differential 33.3 pg (28.0-36.0) 05/02/17 05:15 RDW 15.1 % (11.5-20.0) 05/02/17 05:15 Plt Count 389 Th/cmm (150-400) D 05/02/17 05:15 MPV 7.2 fl 05/02/17 05:15 Neutrophils % 73.8 % (40.0-80.0) 04/30/17 04:35 Band Neutrophils % 4 % (0-10) 05/02/17 05:15 Lymphocytes % 12.1 % (20.0-50.0) L 04/30/17 04:35 Monocytes % 7.7 % (2.0-10.0) 04/30/17 04:35 Eosinophils % 5.2 % (0.0-5.0) H 04/30/17 04:35 Basophils % 1.2 % (0.0-2.0) 04/30/17 04:35 Neutrophils (Manual) 68 % (40-80) 05/02/17 05:15 Lymphocytes 14 % (20-50) L 05/02/17 05:15 Monocytes 8 % (2-10) 05/02/17 05:15 Eosinophils 6 % (0-5) H 05/02/17 05:15 Metamyelocytes 1 % (0-0) H 04/22/17 05:04 Platelet Estimate ADEQUATE (NORMAL) 05/02/17 05:15 Platelet Morphology NORMAL (NORMAL) 05/02/17 05:15 Anisocytosis 1+ 04/28/17 06:08 Microcytosis 1+ 05/02/17 05:15 RBC Morph Micro Appear ABNORMAL (NORMAL) 05/02/17 05:15 ESR > 140 mm/hr (0-20) H 04/20/17 07:00 PT 11.9 SECONDS (9.5-11.5) H 04/24/17 21:19 INR 1.13 (0.5-1.4) 04/24/17 21:19 PTT (Actin FS) 27.6 SECONDS (26.0-38.0) 04/24/17 21:19 Specimen Source Arterial 05/02/17 10:18 Sample Site Right Radial 05/02/17 10:18 pH 7.54 (7.35-7.45) H 05/02/17 10:18 pCO2 48.0 mmHg (35.0-45.0) H 05/02/17 10:18 pO2 145.0 mmHg (80.0-100.0) H 05/02/17 10:18 HCO3 37.7 mEq/L (20.0-26.0) H 05/02/17 10:18 Base Excess 16.3 mEq/L (-3.0-3.0) H 05/02/17 10:18 O2 Saturation 99.0 % (92.0-100.0) 05/02/17 10:18 Chau Test Positive 05/02/17 10:18 Vent Rate 16 05/02/17 10:18 Inspired O2 40 05/02/17 10:18 Tidal Volume 450 05/02/17 10:18 PEEP 3 05/02/17 10:18 Pressure (ins/psv/peep) NA 05/02/17 10:18 Critical Value LZHANG 05/02/17 10:18 Sodium 138 mEq/L (136-145) 05/02/17 05:15 Potassium 3.6 mEq/L (3.5-5.1) 05/02/17 05:15 Chloride 98 mEq/L (98-107) 05/02/17 05:15 Carbon Dioxide 34.8 mEq/L (21.0-31.0) H 05/02/17 05:15 Anion Gap 8.8 (7.0-16.0) 05/02/17 05:15 BUN 25 mg/dL (7-25) 05/02/17 05:15 Creatinine 1.2 mg/dL (0.7-1.3) 05/02/17 05:15 Est GFR ( Amer) > 60.0 ml/min (>90) 05/02/17 05:15 Est GFR (Non-Af Amer) > 60.0 ml/min 05/02/17 05:15 BUN/Creatinine Ratio 20.8 05/02/17 05:15 Glucose 183 mg/dL (70-105) H 05/02/17 05:15 POC Glucose 220 MG/DL (70 - 105) H 05/02/17 11:42 Hemoglobin A1c % 6.7 % (4.0-6.0) H 04/22/17 05:04 Whole Bld Lactic Acid 1.30 mmol/L (0.60-1.99) 04/24/17 21:19 Uric Acid 3.6 mg/dL (4.4-7.6) L 04/20/17 07:00 Calcium 8.4 mg/dL (8.6-10.3) L 05/02/17 05:15 Phosphorus 3.0 mg/dL (2.5-5.0) 05/02/17 05:15 Magnesium 2.2 mg/dL (1.9-2.7) 05/02/17 05:15 Total Bilirubin 0.3 mg/dL (0.3-1.0) 05/02/17 05:15 Direct Bilirubin 0.11 mg/dL (0.0-0.2) 05/02/17 05:15 AST 33 U/L (13-39) 05/02/17 05:15 ALT 15 U/L (7-52) 05/02/17 05:15 Alkaline Phosphatase 88 U/L (34-104) 05/02/17 05:15 Ammonia 26 umol/L (16-53) 04/30/17 04:35 Creatine Kinase 136 U/L (30-223) 04/14/17 14:55 Troponin I 0.01 ng/mL (0.01-0.05) 04/22/17 05:04 C-Reactive Protein 28.9 mg/dL (0.0-0.9) H 04/20/17 07:00 B-Natriuretic Peptide 85.5 pg/mL (5.0-100.0) 04/14/17 14:55 Total Protein 6.4 gm/dL (6.0-8.3) 05/02/17 05:15 Albumin 2.1 gm/dL (4.2-5.5) L 05/02/17 05:15 Globulin 4.3 gm/dL 05/02/17 05:15 Albumin/Globulin Ratio 0.5 (1.0-1.8) L 05/02/17 05:15 Prealbumin 9 mg/dL (10-36) L 05/01/17 04:30 Triglycerides 290 mg/dL (<150) H 05/01/17 04:30 Cholesterol 78 mg/dL (<200) 04/27/17 04:30 LDL Cholesterol Direct 38 mg/dL (75-193) L 04/14/17 14:55 HDL Cholesterol 13 mg/dL (23-92) L 04/14/17 14:55 Amylase 31 U/L (29-103) 04/14/17 14:55 Lipase 15 U/L (11-82) 04/14/17 14:55 Urine Source [place] 04/25/17 07:35 Urine Color YELLOW 04/25/17 07:35 Urine Clarity CLEAR (CLEAR) 04/25/17 07:35 Urine pH 5.5 04/25/17 07:35 Ur Specific [place] 1.015 (1.005-1.030) 04/25/17 07:35 Urine Protein TRACE mg/dL (NEGATIVE) 04/25/17 07:35 Urine Glucose (UA) NEGATIVE mg/dL (NEGATIVE) 04/25/17 07:35 Urine Ketones NEGATIVE mg/dL (NEGATIVE) 04/25/17 07:35 Urine Blood SMALL (NEGATIVE) H 04/25/17 07:35 Urine Nitrate NEGATIVE (NEGATIVE) 04/25/17 07:35 Urine Bilirubin NEGATIVE (NEGATIVE) 04/25/17 07:35 Urine Urobilinogen 0.2 E.U./dL (0.2 - 1.0) 04/25/17 07:35 Ur Leukocyte Esterase NEGATIVE (NEGATIVE) 04/25/17 07:35 Urine RBC 0-2 /hpf (0-5) H 04/25/17 07:35 Urine WBC 0-2 /hpf (0-5) 04/25/17 07:35 Ur Epithelial Cells OCCASIONAL /lpf (FEW) 04/25/17 07:35 Amorphous Sediment MANY URATES (NONE SEEN) 04/14/17 15:05 Urine Bacteria FEW /hpf (NONE SEEN) 04/25/17 07:35 Vancomycin Trough 13.5 ug/mL (10-20) 04/19/17 19:20 Blood Type O POSITIVE 05/02/17 07:12 Antibody Screen NEGATIVE 05/02/17 07:12 Crossmatch See Detail 05/02/17 07:12 - Physical Exam Vitals and I&O: Vital Signs Temp 98.1 F 05/02/17 13:00 Pulse 108 05/02/17 16:18 Resp 26 05/02/17 14:00 BP 119/72 05/02/17 16:16 Pulse Ox 100 05/02/17 15:30 Intake & Output 05/01/17 05/02/17 05/02/17 18:59 06:59 18:59 Intake Total 2943.35 2330.626 2770.500 Output Total 1420 175 Balance 2943.35 255.896 9528.500 Weight (lbs) 104.598 kg 104.78 kg Intake: Intake, IV Amount 2943.35 8509.791 1385.500 D5-0.45NS 1,000 ml @ 40 63.333 mls/hr IV .Q24H [facility] Rx#: [id number] Diltiazem 125 mg In 125 Dextrose 5% 100 ml @ 10 MG/HR 10 mls/hr IV TITR [facility] Rx#:[id number] Fluconazole 200mg/100mL 100 200 mg In 100 ml @ 100 mls/hr IV Q24HR [facility] Rx#: [id number] Linezolid 600mg/300mL 600 475 mg In 300 ml @ 300 mls/ hr IV Q12HR [facility] Rx#: [id number] Meropenem 1 gm In Sodium 100 200 100 Chloride 0.9% 100 ml @ 100 mls/hr IV Q8H [facility] Rx# :[id number] Multivitamin Inj 10 ml In 2400 2005 Dextrose 70% 1,740 ml In Amino Acids 10% 500 ml In Intralipids 20% 150 ml @ 100 mls/hr IV .Q24H [facility] Rx#:[id number] Norepinephrine 4 mg In 254 254 Dextrose 5% 250 ml @ 0 MCG/MIN IV TITR PRN Rx#: [id number] Propofol 1,000 mg In 100 189.35 272.293 186.500 ml @ Per Protocol IV TITR [facility] Rx#:[id number] Oral 120 TPN/PPN 1200 Output: Gastric Drainage 50 130 Drainage 65 45 Left Lower Abdomen 50 30 Medial Abdomen 0 5 Right Lower Abdomen 15 10 Urine 1275 Stool 30 Other: Stool Characteristics Liquid Soft Brown Liquid Brown Active Medications: Current Medications Acetaminophen (Tylenol) 650 mg PO Q6H PRN PRN Reason: FEVER/PAIN Stop: 06/21/17 17:45 Last Admin: 05/01/17 06:07 Dose: 650 mg Albuterol/Ipratropium (Duoneb Neb) 3 ml HHN Q4HRT [facility] Stop: 06/15/17 14:59 Last Admin: 05/02/17 15:26 Dose: 3 ml Amiodarone HCl (Cordarone) 200 mg NG BID [facility] Stop: 06/24/17 23:14 Last Admin: 05/02/17 16:18 Dose: 200 mg Budesonide (Pulmicort) 0.5 mg HHN BIDRT [facility] Stop: 06/15/17 18:59 Last Admin: 05/02/17 07:38 Dose: 0.5 mg Chlorhexidine Gluconate (Peridex) 15 ml MM 0800,1999 [facility] Stop: 06/30/17 19:59 Last Admin: 05/02/17 08:40 Dose: 15 ml Chlorhexidine Gluconate (Peridex) 15 ml MM 0800,1999 [facility] Stop: 06/30/17 19:59 Last Admin: 05/02/17 08:05 Dose: 15 ml Heparin Sodium (Porcine) (Heparin) 5,000 units SUBQ Q12HR [facility] Stop: 07/01/17 20:59 Multivitamins/Minerals 10 ml/Dextrose/ Amino Acids/Electrolytes/ Fat Emulsion Intravenous 2,400 mls @ 100 mls/hr IV .Q24H [facility] Stop: 06/23/17 15:59 Last Admin: 05/02/17 16:12 Dose: 100 mls/hr Dextrose/Sodium Chloride (D5-0.45ns) 1,000 mls @ 40 mls/hr IV .Q24H [facility] Stop: 06/23/17 15:59 Last Admin: 05/02/17 02:45 Dose: 40 mls/hr Diltiazem HCl 125 mg/ Dextrose 125 mls @ 10 mls/hr IV TITR [facility]; 10 MG/HR PRN Reason: Protocol Stop: 06/24/17 12:41 Last Titration: 05/02/17 07:00 Dose: Infused Propofol (Diprivan) 1,000 mg in 100 mls @ 0 mls/hr IV TITR [facility]; Per Protocol PRN Reason: Protocol Stop: 06/30/17 09:16 Last Admin: 05/02/17 13:55 Dose: 49.41 mcg/kg/min, 27.029 mls/hr Norepinephrine Bitartrate 4 mg (/ Dextrose) 254 mls @ 0 mls/hr IV TITR PRN; Protocol; 0 MCG/MIN PRN Reason: BP MAINTENANCE (PER PROTOCOL) Stop: 06/30/17 09:25 Last Titration: 05/02/17 07:00 Dose: Infused Meropenem 1 gm/ Sodium (Chloride) 100 mls @ 100 mls/hr IV Q8H [facility] Stop: 06/30/17 11:14 Last Infusion: 05/02/17 12:49 Dose: Infused Pantoprazole Sodium 80 mg/ (Sodium Chloride) 100 mls @ 10 mls/hr IV Q10H [facility] Stop: 07/01/17 09:44 Last Admin: 05/02/17 10:23 Dose: Not Given Fluconazole (Diflucan) 200 mg in 100 mls @ 100 mls/hr IV Q24HR [facility] Stop: 07/01/17 12:29 Last Infusion: 05/02/17 14:00 Dose: Infused Linezolid (Zyvox) 600 mg in 300 mls @ 300 mls/hr IV Q12HR [facility] Stop: 07/01/17 20:59 Insulin Aspart (Novolog Insulin Sliding Scale) 0 units SUBQ Q6HR [facility] PRN Reason: Protocol Stop: 06/16/17 17:59 Last Admin: 05/02/17 12:42 Dose: 4 units Lorazepam (Ativan) 1 mg IVP Q4HR PRN; Protocol PRN Reason: Agitation Stop: 06/25/17 10:40 Last Admin: 05/01/17 04:57 Dose: 1 mg Metoprolol Tartrate (Lopressor) 25 mg PO BID [facility] Stop: 06/26/17 08:59 Last Admin: 05/02/17 16:16 Dose: 25 mg Miscellaneous (Probiotic Screen) 1 ea PRN PRN PRN Reason: PROTOCOL Stop: 06/14/17 09:39 Miscellaneous (Clinical Monitoring) 1 ea DAILY PRN PRN Reason: RENAL Stop: 06/15/17 12:48 Miscellaneous (Tpn Per Pharmacy) 1 ea PRN PRN PRN Reason: PROTOCOL Stop: 06/16/17 12:28 Miscellaneous (Vte Chemical Prophylaxis Screen/ Admission) 1 ea PRN PRN PRN Reason: PROTOCOL Stop: 07/01/17 14:44 Morphine Sulfate (Morphine) 2 mg IVP Q4HR PRN PRN Reason: pain Stop: 07/01/17 09:37 Ondansetron HCl (Zofran) 4 mg IVP Q6H PRN PRN Reason: Nausea / Vomiting Stop: 06/13/17 20:08 Last Admin: 04/25/17 21:06 Dose: 4 mg Pantoprazole Sodium (Protonix) 40 mg IVP BID [facility] Stop: 07/01/17 10:14 Last Admin: 05/02/17 16:16 Dose: 40 mg General: Mild distress HEENT: Atraumatic, PERRLA, EOMI, Mucous membr. moist/pink, Other Neck: Supple, +2 carotid pulse wo bruit Cardiovascular: Regular rate, Normal S1, Normal S2 Lungs: Other (diffuse rhonchi.) Abdomen: Soft, Distended, Other ( wound VAC anterior abdominal wall wound. L colostomy+) Extremities: Other (no edema and cyanosis.) Neurological: Reflexes 2+, Other (patient is confused and agitated.) Psych/Mental Status: Other (gets agitated at times.) - Procedures Procedures: Procedures Procedure Code Date BYPASS SIGMOID COLON TO CUTANEOUS, OPEN APPROACH [id number] 04/14/17 PARTIAL REMOVAL OF COLON 11319 04/14/17 RESECTION OF SIGMOID COLON, OPEN APPROACH [id number] 04/14/17 RESPIRATORY VENTILATION, 24-96 CONSECUTIVE HOURS [id number] 04/14/17 VENT MGMT INPAT INIT DAY 98882 04/14/17 Assessment/Plan - Problem List Patient Problems: All Active Problems Abscess of sigmoid colon due to diverticulitis (Acute) K57.20 Diverticulitis of sigmoid colon (Acute) K57.32 Obesity (Acute) E66.9 Perforation of sigmoid colon due to diverticulitis (Acute) K57.20 Peritonitis (acute) generalized (Acute) K65.0 - Assessment Assessment: Current Active Problems Problem Status Onset Abscess of sigmoid colon due to diverticulitis Acute Diverticulitis of sigmoid colon Acute Obesity Acute Perforation of sigmoid colon due to diverticulitis Acute Peritonitis (acute) generalized Acute Perforated diverticulitis status post expiratory laparotomy and colostomy placement. Postoperative respiratory failure. Obesity. Polymicrobial peritonitis due to perforation.. Asthma. SVT currently on Cardizem drip Electrolyte imbalance. SEKOU improving. Encephalopathy due to metabolic and infectious etio. Open surgical wound . Altered mental status secondary to metabolic and infectious encephalopathy. Postop anemia. - Plan Plan: Wound Vac as per surgery. IVF and TPN. Correct electrolytes. IV antibiotics as per ID. Rate control. PPI. Blood transfusion. vent support. Monitor strict I's and O's. Pulmonary follow-up. GI and DVT prophylaxis. Follow-up lab. Follow up on consultants recommendations. Symptoms management. Medication management. Overall prognosis is guarded. Care plan discussed with RN and family. Nutritional Asmnt/Malnutr-PDOC - Dietary Evaluation Malnutrition Findings (Please click <Entered> for more info): Nutritional Asmnt/Malnutrition Start: 04/19/17 14: 21 Text: Status: Complete Freq: Document 04/19/17 14:21 GSUN (Rec: 04/19/17 14:58 [id number]) Nutritional Asmnt/Malnutrition Patient General Information Nutritional Screening Moderate Risk Screening Diagnosis Sepsis, diverticulitis, peritonitis Pertinent Medical Hx/Surgical Hx Asthma, diverticulosis Subjective Information 56 year old male frome home. Pt was restless, moving extremities during visit. 04/14 : sigmoid colectomy, end colostomy, abscess drainage, diffuse peritontis. 04/16: pt started PPN. 04/17: central line and started on TPN. Spoke to family at bedside, explained parenteral nutrition , family undersoto and has no further question at this time. Weight discrepancies noted in EMR, family does not know UBW , estimated nutritional needs based Current Diet Order/ Nutrition Support TPN D10% AA4.25% at 90ml/hr with IL20% 150ml, providing 1401.6kcal Pertinent Medications Dilaudid, Novolog, Culturelle, Magnesium Sulfate, Vancomycin , TPN, Morphine, Multivitamins , Zofran, Protonix, Nacl0.9% Pertinent Labs 04/14: triglycerides 106, total bilirubin 1.1H, glucose 116H 04/17: magnesium 2.5, phsophorus 3.2 04/19: magnesium 1.8L, phosphorus 2.4L, BUN 28H, creatinine 1.3, glucose 154H, total bilirubin 1.1H, triglycerides 238H Nutritional Hx/Data Height 1.7 m Height (Calculated Centimeters) 170.2 Current Weight (lbs) 95.254 kg Weight (Calculated Kilograms) 95.3 Weight (Calculated Grams) 91802.4 [facility] Body Weight 148 Weight Status Overweight GI Symptoms Skin Integrity/Comment: [place] 14. Facial non-pitting 1+, bilateral hands pitting 1+ Estimated Nutritional Goals Calories/Kcals/Kg IBW 148/67.3kg Kcals Calculated 2019-2356kcal (30-35kcal/kg) Protein Calculated 101-135g (1.5-2g/kg) Fluid: ml Per MD Nutritional Problem 1. Problem Problem Altered GI function related to Etiology abscess and perforation of sigmoid colon due to diverticulitis aeb Signs/Symptoms: post-operative, on TPN Intervention/Recommendation Comments 1. Recommend TPN D15% AA5.5% at 100ml/hr with IL20% 150ml, providing 2400ml total volume, 2052kcal, 132g protein, meeting 100% of estimated nutritional needs. Carb load 2 .6mg/kg/min (using 210lb adm weight). 2. Monitor for possible refeeding syndrome, 04/18: phsophorus 2.1L, 04/19: magnesium 1.9. 3. Monitor triglycerides, total bilirubin, glucose, renal labs. Expected Outcomes/Goals Expected Outcomes/Goals 1. Pt to meet 100% of estimated nutritional needs on TPN.
[2017-05-02] MEDS: Morphine Sulfate 2 mg/mL 1mL Syr IVP PRN (20:54)
[2017-05-03] MEDS: Morphine Sulfate 2 mg/mL 1mL Syr IVP PRN (00:50)
[2017-05-03] MEDS: Albuterol/Ipratropium Neb 3 ML AERS HHN SCH ×6 (02:56→22:41)
[2017-05-03] MEDS: Meropenem 1 GM in Sodium Chloride 0.9% 100 ML IV SCH ×3 (03:19→18:27)
[2017-05-03 05:13] LABS: % BASOPHILS 0.4 % (0.0-2.0); % EOSINOPHILS 10.3 % (0.0-5.0); % LYMPHOCYTES 17.8 % (20.0-50.0); % MONOCYTES 8.6 % (2.0-10.0); % NEUTROPHILS 62.9 % (40.0-80.0); MEAN CELL VOLUME 81.8 fl (80-99); MEAN CORPUSCULAR HEMOGLOBIN 27.6 pg (26.0-30.0); MEAN CORPUSCULAR HGB CONC 33.7 pg (28.0-36.0); MEAN PLATELET VOLUME 7.7 fl; NEUTROPHILE ABSOLUTE 4.1 Th/cmm (1.8-8.0); PLATELET COUNT 358 Th/cmm (150-400); RED BLOOD COUNT 3.53 Mil/cmm (4.30-5.70); RED CELL DISTRIBUTION WIDTH 15.3 % (11.5-20.0); WHITE BLOOD COUNT 6.6 Th/cmm (4.8-10.8)
[2017-05-03 05:21] LABS: ALB/GLOB RATIO 0.5 (1.0-1.8); ALKALINE PHOSPHATASE 105 U/L (34-104); AMYLASE SERUM 44 U/L (29-103); ANION GAP 5.7 (7.0-16.0); BILIRUBIN,TOTAL 0.4 mg/dL (0.3-1.0); BUN - UREA NITROGEN 22 mg/dL (7-25); BUN/CREATININE RATIO 18.3; CALCIUM SERUM 8.6 mg/dL (8.6-10.3); CARBON DIOXIDE 37.9 mEq/L (21.0-31.0); CHLORIDE 100 mEq/L (98-107); CREATININE - SERUM 1.2 mg/dL (0.7-1.3); GLUCOSE 174 mg/dL (70-105); MAGNESIUM 2.1 mg/dL (1.9-2.7); PHOSPHOROUS 3.4 mg/dL (2.5-5.0); POTASSIUM SERUM 3.6 mEq/L (3.5-5.1); SGOT 41 U/L (13-39); SGPT/ALT 18 U/L (7-52); SODIUM SERUM 140 mEq/L (136-145)
[2017-05-03 05:25] LABS: HEMATOCRIT 28.9 % (39.0-49.0); HEMOGLOBIN 9.7 gm/dL (13.2-17.3)
[2017-05-03] MEDS: INSULIN ASPART SLIDING SCALE 100 UNITS/ML UNIT SUBQ SCH ×3 (06:33→17:33)
[2017-05-03] MEDS: Budesonide 0.5 Mg/2 mL Ud HHN SCH ×2 (06:51→19:08)
[2017-05-03] MEDS: Chlorhexidine Gluconate 0.12% 15mL Mouthwash MM SCH ×2 (08:45→20:30)
[2017-05-03 09:21] LABS: BE(B) 16.4 mEq/L (-3.0-3.0); HCO3 37.8 mEq/L (20.0-26.0); pH 7.52 (7.35-7.45)
[2017-05-03 09:22] LABS: ABG SOURCE Arterial; ALLEN TEST YES; CRITICAL VALUES REPORTED BY SH; FIO2 40; MECH RATE 16; MECH VT 450
[2017-05-03] MEDS: Linezolid 600mg/300mL 600 MG/300 ML BAG IV SCH ×2 (09:33→21:29)
--- NOTE | 2017-05-03 11:18 | General Progress Note ---
Subjective - Review of Systems Subjective: Patient is seen and examined. No new events. Overall prognosis is guarded . Objective - Results Result Diagrams: 05/03/17 04:40 05/03/17 04:40 Recent Labs: Laboratory Last Values WBC 6.6 Th/cmm (4.8-10.8) 05/03/17 04:40 RBC 3.53 Mil/cmm (4.30-5.70) L 05/03/17 04:40 Hgb 9.7 gm/dL (13.2-17.3) L D 05/03/17 04:40 Hct 28.9 % (39.0-49.0) L D 05/03/17 04:40 MCV 81.8 fl (80-99) 05/03/17 04:40 MCH 27.6 pg (26.0-30.0) 05/03/17 04:40 MCHC Differential 33.7 pg (28.0-36.0) 05/03/17 04:40 RDW 15.3 % (11.5-20.0) 05/03/17 04:40 Plt Count 358 Th/cmm (150-400) 05/03/17 04:40 MPV 7.7 fl 05/03/17 04:40 Neutrophils % 62.9 % (40.0-80.0) 05/03/17 04:40 Band Neutrophils % 4 % (0-10) 05/02/17 05:15 Lymphocytes % 17.8 % (20.0-50.0) L 05/03/17 04:40 Monocytes % 8.6 % (2.0-10.0) 05/03/17 04:40 Eosinophils % 10.3 % (0.0-5.0) H 05/03/17 04:40 Basophils % 0.4 % (0.0-2.0) 05/03/17 04:40 Neutrophils (Manual) 68 % (40-80) 05/02/17 05:15 Lymphocytes 14 % (20-50) L 05/02/17 05:15 Monocytes 8 % (2-10) 05/02/17 05:15 Eosinophils 6 % (0-5) H 05/02/17 05:15 Metamyelocytes 1 % (0-0) H 04/22/17 05:04 Platelet Estimate ADEQUATE (NORMAL) 05/02/17 05:15 Platelet Morphology NORMAL (NORMAL) 05/02/17 05:15 Anisocytosis 1+ 04/28/17 06:08 Microcytosis 1+ 05/02/17 05:15 RBC Morph Micro Appear ABNORMAL (NORMAL) 05/02/17 05:15 ESR > 140 mm/hr (0-20) H 04/20/17 07:00 PT 11.9 SECONDS (9.5-11.5) H 04/24/17 21:19 INR 1.13 (0.5-1.4) 04/24/17 21:19 PTT (Actin FS) 27.6 SECONDS (26.0-38.0) 04/24/17 21:19 Specimen Source Arterial 05/03/17 09:00 Sample Site Right Radial 05/03/17 09:00 pH 7.52 (7.35-7.45) H 05/03/17 09:00 pCO2 51.0 mmHg (35.0-45.0) H 05/03/17 09:00 pO2 115.0 mmHg (80.0-100.0) H 05/03/17 09:00 HCO3 37.8 mEq/L (20.0-26.0) H 05/03/17 09:00 Base Excess 16.4 mEq/L (-3.0-3.0) H 05/03/17 09:00 O2 Saturation 99.0 % (92.0-100.0) 05/03/17 09:00 Chau Test YES 05/03/17 09:00 Vent Rate 16 05/03/17 09:00 Inspired O2 40 05/03/17 09:00 Tidal Volume 450 05/03/17 09:00 PEEP 3 05/03/17 09:00 Pressure (ins/psv/peep) NA 05/03/17 09:00 Critical Value SH 05/03/17 09:00 Sodium 140 mEq/L (136-145) 05/03/17 04:40 Potassium 3.6 mEq/L (3.5-5.1) 05/03/17 04:40 Chloride 100 mEq/L (98-107) 05/03/17 04:40 Carbon Dioxide 37.9 mEq/L (21.0-31.0) H 05/03/17 04:40 Anion Gap 5.7 (7.0-16.0) L 05/03/17 04:40 BUN 22 mg/dL (7-25) 05/03/17 04:40 Creatinine 1.2 mg/dL (0.7-1.3) 05/03/17 04:40 Est GFR ( Amer) > 60.0 ml/min (>90) 05/03/17 04:40 Est GFR (Non-Af Amer) > 60.0 ml/min 05/03/17 04:40 BUN/Creatinine Ratio 18.3 05/03/17 04:40 Glucose 174 mg/dL (70-105) H 05/03/17 04:40 POC Glucose 157 MG/DL (70 - 105) H 05/03/17 06:02 Hemoglobin A1c % 6.7 % (4.0-6.0) H 04/22/17 05:04 Whole Bld Lactic Acid 1.30 mmol/L (0.60-1.99) 04/24/17 21:19 Uric Acid 3.6 mg/dL (4.4-7.6) L 04/20/17 07:00 Calcium 8.6 mg/dL (8.6-10.3) 05/03/17 04:40 Phosphorus 3.4 mg/dL (2.5-5.0) 05/03/17 04:40 Magnesium 2.1 mg/dL (1.9-2.7) 05/03/17 04:40 Total Bilirubin 0.4 mg/dL (0.3-1.0) 05/03/17 04:40 Direct Bilirubin 0.11 mg/dL (0.0-0.2) 05/02/17 05:15 AST 41 U/L (13-39) H 05/03/17 04:40 ALT 18 U/L (7-52) 05/03/17 04:40 Alkaline Phosphatase 105 U/L (34-104) H 05/03/17 04:40 Ammonia 26 umol/L (16-53) 04/30/17 04:35 Creatine Kinase 136 U/L (30-223) 04/14/17 14:55 Troponin I 0.01 ng/mL (0.01-0.05) 04/22/17 05:04 C-Reactive Protein 28.9 mg/dL (0.0-0.9) H 04/20/17 07:00 B-Natriuretic Peptide 85.5 pg/mL (5.0-100.0) 04/14/17 14:55 Total Protein 6.6 gm/dL (6.0-8.3) 05/03/17 04:40 Albumin 2.2 gm/dL (4.2-5.5) L 05/03/17 04:40 Globulin 4.4 gm/dL 05/03/17 04:40 Albumin/Globulin Ratio 0.5 (1.0-1.8) L 05/03/17 04:40 Prealbumin 9 mg/dL (10-36) L 05/01/17 04:30 Triglycerides 290 mg/dL (<150) H 05/01/17 04:30 Cholesterol 78 mg/dL (<200) 04/27/17 04:30 LDL Cholesterol Direct 38 mg/dL (75-193) L 04/14/17 14:55 HDL Cholesterol 13 mg/dL (23-92) L 04/14/17 14:55 Amylase 44 U/L (29-103) 05/03/17 04:40 Lipase 15 U/L (11-82) 04/14/17 14:55 Urine Source [place] 04/25/17 07:35 Urine Color YELLOW 04/25/17 07:35 Urine Clarity CLEAR (CLEAR) 04/25/17 07:35 Urine pH 5.5 04/25/17 07:35 Ur Specific [place] 1.015 (1.005-1.030) 04/25/17 07:35 Urine Protein TRACE mg/dL (NEGATIVE) 04/25/17 07:35 Urine Glucose (UA) NEGATIVE mg/dL (NEGATIVE) 04/25/17 07:35 Urine Ketones NEGATIVE mg/dL (NEGATIVE) 04/25/17 07:35 Urine Blood SMALL (NEGATIVE) H 04/25/17 07:35 Urine Nitrate NEGATIVE (NEGATIVE) 04/25/17 07:35 Urine Bilirubin NEGATIVE (NEGATIVE) 04/25/17 07:35 Urine Urobilinogen 0.2 E.U./dL (0.2 - 1.0) 04/25/17 07:35 Ur Leukocyte Esterase NEGATIVE (NEGATIVE) 04/25/17 07:35 Urine RBC 0-2 /hpf (0-5) H 04/25/17 07:35 Urine WBC 0-2 /hpf (0-5) 04/25/17 07:35 Ur Epithelial Cells OCCASIONAL /lpf (FEW) 04/25/17 07:35 Amorphous Sediment MANY URATES (NONE SEEN) 04/14/17 15:05 Urine Bacteria FEW /hpf (NONE SEEN) 04/25/17 07:35 Vancomycin Trough 13.5 ug/mL (10-20) 04/19/17 19:20 Blood Type O POSITIVE 05/02/17 07:12 Antibody Screen NEGATIVE 05/02/17 07:12 Crossmatch See Detail 05/02/17 07:12 - Physical Exam Vitals and I&O: Vital Signs Temp 99.5 F 05/03/17 11:00 Pulse 109 05/03/17 11:00 Resp 24 05/03/17 11:00 BP 137/80 05/03/17 11:00 Pulse Ox 100 05/03/17 11:02 Intake & Output 05/02/17 05/03/17 05/03/17 18:59 06:59 18:59 Intake Total 5136.500 1968.408 700 Output Total 2130 2043 153 Balance 3006.500 -74.592 547 Weight (lbs) 104.922 kg 95.708 kg 105.007 kg Intake: Intake, IV Amount 2870.500 368.408 600 Diltiazem 125 mg In 125 Dextrose 5% 100 ml @ 10 MG/HR 10 mls/hr IV TITR [facility] Rx#:[id number] Fluconazole 200mg/100mL 100 200 mg In 100 ml @ 100 mls/hr IV Q24HR [facility] Rx#: [id number] Linezolid 600mg/300mL 600 600 mg In 300 ml @ 300 mls/ hr IV Q12HR [facility] Rx#: [id number] Meropenem 1 gm In Sodium 100 100 Chloride 0.9% 100 ml @ 100 mls/hr IV Q8H [facility] Rx# :[id number] Multivitamin Inj 10 ml In 2004 Dextrose 70% 1,740 ml In Amino Acids 10% 500 ml In Intralipids 20% 150 ml @ 100 mls/hr IV .Q24H [facility] Rx#:[id number] Norepinephrine 4 mg In 254 Dextrose 5% 250 ml @ 0 MCG/MIN IV TITR PRN Rx#: [id number] Propofol 1,000 mg In 100 286.500 268.408 ml @ Per Protocol IV TITR ARIAN Rx#:[id number] Oral 0 Tube Feeding 200 TPN/PPN 1200 1200 100 Blood Product 500 Other 366 400 Output: Gastric Drainage 630 20 Drainage 50 73 53 Left Lower Abdomen 30 50 50 Medial Abdomen 10 Right Lower Abdomen 10 23 3 Urine 1450 1850 100 Stool 100 Other: Stool Characteristics Soft Soft Soft Liquid Liquid Liquid Brown Brown Brown Active Medications: Current Medications Acetaminophen (Tylenol) 650 mg PO Q6H PRN PRN Reason: FEVER/PAIN Stop: 06/21/17 17:45 Last Admin: 05/03/17 09:20 Dose: 650 mg Albuterol/Ipratropium (Duoneb Neb) 3 ml HHN Q4HRT [facility] Stop: 06/15/17 14:59 Last Admin: 05/03/17 11:02 Dose: 3 ml Amiodarone HCl (Cordarone) 200 mg NG BID [facility] Stop: 06/24/17 23:14 Last Admin: 05/03/17 09:32 Dose: 200 mg Budesonide (Pulmicort) 0.5 mg HHN BIDRT [facility] Stop: 06/15/17 18:59 Last Admin: 05/03/17 06:51 Dose: 0.5 mg Chlorhexidine Gluconate (Peridex) 15 ml MM 0800,2000 [facility] Stop: 06/30/17 19:59 Last Admin: 05/03/17 08:45 Dose: 15 ml Heparin Sodium (Porcine) (Heparin) 5,000 units SUBQ Q12HR [facility] Stop: 07/01/17 20:59 Last Admin: 05/03/17 09:35 Dose: Not Given Multivitamins/Minerals 10 ml/Dextrose/ Amino Acids/Electrolytes/ Fat Emulsion Intravenous 2,400 mls @ 100 mls/hr IV .Q24H [facility] Stop: 06/23/17 15:59 Last Admin: 05/02/17 16:12 Dose: 100 mls/hr Dextrose/Sodium Chloride (D5-0.45ns) 1,000 mls @ 40 mls/hr IV .Q24H [facility] Stop: 06/23/17 15:59 Last Admin: 05/02/17 02:45 Dose: 40 mls/hr Diltiazem HCl 125 mg/ Dextrose 125 mls @ 10 mls/hr IV TITR ARIAN; 10 MG/HR PRN Reason: Protocol Stop: 06/24/17 12:41 Last Titration: 05/02/17 07:00 Dose: Infused Propofol (Diprivan) 1,000 mg in 100 mls @ 0 mls/hr IV TITR ARIAN; Per Protocol PRN Reason: Protocol Stop: 06/30/17 09:16 Last Admin: 05/03/17 04:26 Dose: 50 mcg/kg/min, 27.352 mls/hr Norepinephrine Bitartrate 4 mg (/ Dextrose) 254 mls @ 0 mls/hr IV TITR PRN; Protocol; 0 MCG/MIN PRN Reason: BP MAINTENANCE (PER PROTOCOL) Stop: 06/30/17 09:25 Last Titration: 05/02/17 07:00 Dose: Infused Meropenem 1 gm/ Sodium (Chloride) 100 mls @ 100 mls/hr IV Q8H [facility] Stop: 06/30/17 11:14 Last Admin: 05/03/17 03:19 Dose: 100 mls/hr Pantoprazole Sodium 80 mg/ (Sodium Chloride) 100 mls @ 10 mls/hr IV Q10H [facility] Stop: 07/01/17 09:44 Last Admin: 05/02/17 10:23 Dose: Not Given Fluconazole (Diflucan) 200 mg in 100 mls @ 100 mls/hr IV Q24HR [facility] Stop: 07/01/17 12:29 Last Infusion: 05/02/17 14:00 Dose: Infused Linezolid (Zyvox) 600 mg in 300 mls @ 300 mls/hr IV Q12HR [facility] Stop: 07/01/17 20:59 Last Infusion: 05/03/17 10:35 Dose: Infused Insulin Aspart (Novolog Insulin Sliding Scale) 0 units SUBQ Q6HR [facility] PRN Reason: Protocol Stop: 06/16/17 17:59 Last Admin: 05/03/17 06:33 Dose: 2 units Lorazepam (Ativan) 1 mg IVP Q4HR PRN; Protocol PRN Reason: Agitation Stop: 06/25/17 10:40 Last Admin: 05/01/17 04:57 Dose: 1 mg Metoprolol Tartrate (Lopressor) 25 mg PO BID [facility] Stop: 06/26/17 08:59 Last Admin: 05/03/17 09:33 Dose: 25 mg Miscellaneous (Probiotic Screen) 1 ea MC PRN PRN PRN Reason: PROTOCOL Stop: 06/14/17 09:39 Miscellaneous (Clinical Monitoring) 1 ea DAILY PRN PRN Reason: RENAL Stop: 06/15/17 12:48 Miscellaneous (Tpn Per Pharmacy) 1 ea PRN PRN PRN Reason: PROTOCOL Stop: 06/16/17 12:28 Miscellaneous (Vte Chemical Prophylaxis Screen/ Admission) 1 ea PRN PRN PRN Reason: PROTOCOL Stop: 07/01/17 14:44 Morphine Sulfate (Morphine) 2 mg IVP Q4HR PRN PRN Reason: pain Stop: 07/01/17 09:37 Last Admin: 05/03/17 00:50 Dose: 2 mg Ondansetron HCl (Zofran) 4 mg IVP Q6H PRN PRN Reason: Nausea / Vomiting Stop: 06/13/17 20:08 Last Admin: 04/25/17 21:06 Dose: 4 mg Pantoprazole Sodium (Protonix) 40 mg IVP BID [facility] Stop: 07/01/17 10:14 Last Admin: 05/03/17 09:35 Dose: Not Given General: Mild distress HEENT: Atraumatic, PERRLA, EOMI, Mucous membr. moist/pink, Other (oral endotracheal tube,NG tube+) Neck: Supple, +2 carotid pulse wo bruit Cardiovascular: Regular rate, Normal S1, Normal S2 Lungs: Other (diffuse rhonchi.) Abdomen: Soft, Distended, Other ( wound VAC anterior abdominal wall wound. L colostomy+) Extremities: Other (no edema and cyanosis.) Neurological: Reflexes 2+, Other (Patient is intubated and sedated) Psych/Mental Status: Other (Sedated) - Procedures Procedures: Procedures Procedure Code Date BYPASS SIGMOID COLON TO CUTANEOUS, OPEN APPROACH [id number] 04/14/17 INSERT EMERGENCY AIRWAY 87327 04/14/17 INSERTION OF ENDOTRACHEAL AIRWAY INTO TRACHEA, VIA OPENING [id number] 04/14/17 PARTIAL REMOVAL OF COLON 19928 04/14/17 RESECTION OF SIGMOID COLON, OPEN APPROACH [id number] 04/14/17 RESPIRATORY VENTILATION, 24-96 CONSECUTIVE HOURS [id number] 04/14/17 VENT MGMT INPAT INIT DAY 95007 04/14/17 VENT MGMT INPAT SUBQ DAY 93838 04/14/17 Assessment/Plan - Problem List Patient Problems: All Active Problems Abscess of sigmoid colon due to diverticulitis (Acute) K57.20 Diverticulitis of sigmoid colon (Acute) K57.32 Obesity (Acute) E66.9 Perforation of sigmoid colon due to diverticulitis (Acute) K57.20 Peritonitis (acute) generalized (Acute) K65.0 - Assessment Assessment: Current Active Problems Problem Status Onset Abscess of sigmoid colon due to diverticulitis Acute Diverticulitis of sigmoid colon Acute Obesity Acute Perforation of sigmoid colon due to diverticulitis Acute Peritonitis (acute) generalized Acute Perforated diverticulitis status post expiratory laparotomy and colostomy placement. Postoperative respiratory failure on vent. Obesity. Polymicrobial peritonitis due to perforation.. Asthma. SVT currently on Cardizem drip Electrolyte imbalance. SEKOU improving. Encephalopathy due to metabolic and infectious etio. Open surgical wound with wound VAC. Altered mental status secondary to metabolic and infectious encephalopathy. Postop anemia. - Plan Plan: Wound Vac as per surgery. IVF and TPN. Correct electrolytes. IV antibiotics as per ID. Rate control. PPI. Blood transfusion PRN. vent support. and HHN. Pulmo toilet. Monitor strict I's and O's. Pulmonary follow-up. GI and DVT prophylaxis. Follow-up lab. Follow up on consultants recommendations. Symptoms management. Medication management. Overall prognosis is guarded. Care plan discussed with RN and family. Nutritional Asmnt/Malnutr-PDOC - Dietary Evaluation Malnutrition Findings (Please click <Entered> for more info): Nutritional Asmnt/Malnutrition Start: 04/19/17 14: 21 Text: Status: Complete Freq: Document 04/19/17 14:21 [email or web address] (Rec: 04/19/17 14:58 [id number]) Nutritional Asmnt/Malnutrition Patient General Information Nutritional Screening Moderate Risk Screening Diagnosis Sepsis, diverticulitis, peritonitis Pertinent Medical Hx/Surgical Hx Asthma, diverticulosis Subjective Information 56 year old male frome home. Pt was restless, moving extremities during visit. 04/14 : sigmoid colectomy, end colostomy, abscess drainage, diffuse peritontis. 04/16: pt started PPN. 04/17: central line and started on TPN. Spoke to family at bedside, explained parenteral nutrition , family undersoto and has no further question at this time. Weight discrepancies noted in EMR, family does not know UBW , estimated nutritional needs based Current Diet Order/ Nutrition Support TPN D10% AA4.25% at 90ml/hr with IL20% 150ml, providing 1401.6kcal Pertinent Medications Dilaudid, Novolog, Culturelle, Magnesium Sulfate, Vancomycin , TPN, Morphine, Multivitamins , Zofran, Protonix, Nacl0.9% Pertinent Labs 04/14: triglycerides 106, total bilirubin 1.1H, glucose 116H 04/17: magnesium 2.5, phsophorus 3.2 04/19: magnesium 1.8L, phosphorus 2.4L, BUN 28H, creatinine 1.3, glucose 154H, total bilirubin 1.1H, triglycerides 238H Nutritional Hx/Data Height 1.7 m Height (Calculated Centimeters) 170.2 Current Weight (lbs) 95.254 kg Weight (Calculated Kilograms) 95.3 Weight (Calculated Grams) 55162.4 [place] Body Weight 148 Weight Status Overweight GI Symptoms Skin Integrity/Comment: [place] 14. Facial non-pitting 1+, bilateral hands pitting 1+ Estimated Nutritional Goals Calories/Kcals/Kg IBW 148/67.3kg Kcals Calculated 2019-2356kcal (30-35kcal/kg) Protein Calculated 101-135g (1.5-2g/kg) Fluid: ml Per MD Nutritional Problem 1. Problem Problem Altered GI function related to Etiology abscess and perforation of sigmoid colon due to diverticulitis aeb Signs/Symptoms: post-operative, on TPN Intervention/Recommendation Comments 1. Recommend TPN D15% AA5.5% at 100ml/hr with IL20% 150ml, providing 2400ml total volume, 2052kcal, 132g protein, meeting 100% of estimated nutritional needs. Carb load 2 .6mg/kg/min (using 210lb adm weight). 2. Monitor for possible refeeding syndrome, 04/18: phsophorus 2.1L, 04/19: magnesium 1.9. 3. Monitor triglycerides, total bilirubin, glucose, renal labs. Expected Outcomes/Goals Expected Outcomes/Goals 1. Pt to meet 100% of estimated nutritional needs on TPN.
--- NOTE | 2017-05-03 12:03 | Infectious Disease Prog Note ---
Infectious Disease Subjective - Review of Systems Service Date: 05/03/17 Subjective: He remains intubated and was put on ventilator support. Currently, he is unresponsive. Patient has coffee ground emesis. On NGT suction. Infectious Disease Objective - Results Result Diagrams: 05/03/17 04:40 05/03/17 04:40 Recent Labs: Laboratory Last Values WBC 6.6 Th/cmm (4.8-10.8) 05/03/17 04:40 RBC 3.53 Mil/cmm (4.30-5.70) L 05/03/17 04:40 Hgb 9.7 gm/dL (13.2-17.3) L D 05/03/17 04:40 Hct 28.9 % (39.0-49.0) L D 05/03/17 04:40 MCV 81.8 fl (80-99) 05/03/17 04:40 MCH 27.6 pg (26.0-30.0) 05/03/17 04:40 MCHC Differential 33.7 pg (28.0-36.0) 05/03/17 04:40 RDW 15.3 % (11.5-20.0) 05/03/17 04:40 Plt Count 358 Th/cmm (150-400) 05/03/17 04:40 MPV 7.7 fl 05/03/17 04:40 Neutrophils % 62.9 % (40.0-80.0) 05/03/17 04:40 Band Neutrophils % 4 % (0-10) 05/02/17 05:15 Lymphocytes % 17.8 % (20.0-50.0) L 05/03/17 04:40 Monocytes % 8.6 % (2.0-10.0) 05/03/17 04:40 Eosinophils % 10.3 % (0.0-5.0) H 05/03/17 04:40 Basophils % 0.4 % (0.0-2.0) 05/03/17 04:40 Neutrophils (Manual) 68 % (40-80) 05/02/17 05:15 Lymphocytes 14 % (20-50) L 05/02/17 05:15 Monocytes 8 % (2-10) 05/02/17 05:15 Eosinophils 6 % (0-5) H 05/02/17 05:15 Metamyelocytes 1 % (0-0) H 04/22/17 05:04 Platelet Estimate ADEQUATE (NORMAL) 05/02/17 05:15 Platelet Morphology NORMAL (NORMAL) 05/02/17 05:15 Anisocytosis 1+ 04/28/17 06:08 Microcytosis 1+ 05/02/17 05:15 RBC Morph Micro Appear ABNORMAL (NORMAL) 05/02/17 05:15 ESR > 140 mm/hr (0-20) H 04/20/17 07:00 PT 11.9 SECONDS (9.5-11.5) H 04/24/17 21:19 INR 1.13 (0.5-1.4) 04/24/17 21:19 PTT (Actin FS) 27.6 SECONDS (26.0-38.0) 04/24/17 21:19 Specimen Source Arterial 05/03/17 09:00 Sample Site Right Radial 05/03/17 09:00 pH 7.52 (7.35-7.45) H 05/03/17 09:00 pCO2 51.0 mmHg (35.0-45.0) H 05/03/17 09:00 pO2 115.0 mmHg (80.0-100.0) H 05/03/17 09:00 HCO3 37.8 mEq/L (20.0-26.0) H 05/03/17 09:00 Base Excess 16.4 mEq/L (-3.0-3.0) H 05/03/17 09:00 O2 Saturation 99.0 % (92.0-100.0) 05/03/17 09:00 Chau Test YES 05/03/17 09:00 Vent Rate 16 05/03/17 09:00 Inspired O2 40 05/03/17 09:00 Tidal Volume 450 05/03/17 09:00 PEEP 3 05/03/17 09:00 Pressure (ins/psv/peep) NA 05/03/17 09:00 Critical Value SH 05/03/17 09:00 Sodium 140 mEq/L (136-145) 05/03/17 04:40 Potassium 3.6 mEq/L (3.5-5.1) 05/03/17 04:40 Chloride 100 mEq/L (98-107) 05/03/17 04:40 Carbon Dioxide 37.9 mEq/L (21.0-31.0) H 05/03/17 04:40 Anion Gap 5.7 (7.0-16.0) L 05/03/17 04:40 BUN 22 mg/dL (7-25) 05/03/17 04:40 Creatinine 1.2 mg/dL (0.7-1.3) 05/03/17 04:40 Est GFR ( Amer) > 60.0 ml/min (>90) 05/03/17 04:40 Est GFR (Non-Af Amer) > 60.0 ml/min 05/03/17 04:40 BUN/Creatinine Ratio 18.3 05/03/17 04:40 Glucose 174 mg/dL (70-105) H 05/03/17 04:40 POC Glucose 238 MG/DL (70 - 105) H 05/03/17 11:27 Hemoglobin A1c % 6.7 % (4.0-6.0) H 04/22/17 05:04 Whole Bld Lactic Acid 1.30 mmol/L (0.60-1.99) 04/24/17 21:19 Uric Acid 3.6 mg/dL (4.4-7.6) L 04/20/17 07:00 Calcium 8.6 mg/dL (8.6-10.3) 05/03/17 04:40 Phosphorus 3.4 mg/dL (2.5-5.0) 05/03/17 04:40 Magnesium 2.1 mg/dL (1.9-2.7) 05/03/17 04:40 Total Bilirubin 0.4 mg/dL (0.3-1.0) 05/03/17 04:40 Direct Bilirubin 0.11 mg/dL (0.0-0.2) 05/02/17 05:15 AST 41 U/L (13-39) H 05/03/17 04:40 ALT 18 U/L (7-52) 05/03/17 04:40 Alkaline Phosphatase 105 U/L (34-104) H 05/03/17 04:40 Ammonia 26 umol/L (16-53) 04/30/17 04:35 Creatine Kinase 136 U/L (30-223) 04/14/17 14:55 Troponin I 0.01 ng/mL (0.01-0.05) 04/22/17 05:04 C-Reactive Protein 28.9 mg/dL (0.0-0.9) H 04/20/17 07:00 B-Natriuretic Peptide 85.5 pg/mL (5.0-100.0) 04/14/17 14:55 Total Protein 6.6 gm/dL (6.0-8.3) 05/03/17 04:40 Albumin 2.2 gm/dL (4.2-5.5) L 05/03/17 04:40 Globulin 4.4 gm/dL 05/03/17 04:40 Albumin/Globulin Ratio 0.5 (1.0-1.8) L 05/03/17 04:40 Prealbumin 9 mg/dL (10-36) L 05/01/17 04:30 Triglycerides 290 mg/dL (<150) H 05/01/17 04:30 Cholesterol 78 mg/dL (<200) 04/27/17 04:30 LDL Cholesterol Direct 38 mg/dL (75-193) L 04/14/17 14:55 HDL Cholesterol 13 mg/dL (23-92) L 04/14/17 14:55 Amylase 44 U/L (29-103) 05/03/17 04:40 Lipase 15 U/L (11-82) 04/14/17 14:55 Urine Source [place] 04/25/17 07:35 Urine Color YELLOW 04/25/17 07:35 Urine Clarity CLEAR (CLEAR) 04/25/17 07:35 Urine pH 5.5 04/25/17 07:35 Ur Specific [place] 1.015 (1.005-1.030) 04/25/17 07:35 Urine Protein TRACE mg/dL (NEGATIVE) 04/25/17 07:35 Urine Glucose (UA) NEGATIVE mg/dL (NEGATIVE) 04/25/17 07:35 Urine Ketones NEGATIVE mg/dL (NEGATIVE) 04/25/17 07:35 Urine Blood SMALL (NEGATIVE) H 04/25/17 07:35 Urine Nitrate NEGATIVE (NEGATIVE) 04/25/17 07:35 Urine Bilirubin NEGATIVE (NEGATIVE) 04/25/17 07:35 Urine Urobilinogen 0.2 E.U./dL (0.2 - 1.0) 04/25/17 07:35 Ur Leukocyte Esterase NEGATIVE (NEGATIVE) 04/25/17 07:35 Urine RBC 0-2 /hpf (0-5) H 04/25/17 07:35 Urine WBC 0-2 /hpf (0-5) 04/25/17 07:35 Ur Epithelial Cells OCCASIONAL /lpf (FEW) 04/25/17 07:35 Amorphous Sediment MANY URATES (NONE SEEN) 04/14/17 15:05 Urine Bacteria FEW /hpf (NONE SEEN) 04/25/17 07:35 Vancomycin Trough 13.5 ug/mL (10-20) 04/19/17 19:20 Blood Type O POSITIVE 05/02/17 07:12 Antibody Screen NEGATIVE 05/02/17 07:12 Crossmatch See Detail 05/02/17 07:12 - Physical Exam Vitals and I&O: Vital Signs Temp 99.5 F 05/03/17 11:00 Pulse 109 05/03/17 11:00 Resp 24 05/03/17 11:00 BP 137/80 05/03/17 11:00 Pulse Ox 100 05/03/17 11:02 Intake & Output 05/02/17 05/03/17 05/03/17 18:59 06:59 18:59 Intake Total 5136.500 2068.408 800 Output Total 2130 2043 153 Balance 3006.500 25.408 647 Weight (lbs) 104.922 kg 95.708 kg 105.007 kg Intake: Intake, IV Amount 2870.500 468.408 700 Diltiazem 125 mg In 125 Dextrose 5% 100 ml @ 10 MG/HR 10 mls/hr IV TITR ARIAN Rx#:[id number] Fluconazole 200mg/100mL 100 200 mg In 100 ml @ 100 mls/hr IV Q24HR ARIAN Rx#: [id number] Linezolid 600mg/300mL 600 600 mg In 300 ml @ 300 mls/ hr IV Q12HR ARIAN Rx#: [id number] Meropenem 1 gm In Sodium 100 200 Chloride 0.9% 100 ml @ 100 mls/hr IV Q8H ARIAN Rx# :[id number] Multivitamin Inj 10 ml In 2005 Dextrose 70% 1,740 ml In Amino Acids 10% 500 ml In Intralipids 20% 150 ml @ 100 mls/hr IV .Q24H ARIAN Rx#:[id number] Norepinephrine 4 mg In 254 Dextrose 5% 250 ml @ 0 MCG/MIN IV TITR PRN Rx#: [id number] Propofol 1,000 mg In 100 286.500 268.408 100 ml @ Per Protocol IV TITR ARIAN Rx#:[id number] Oral 0 Tube Feeding 200 TPN/PPN 1200 1200 100 Blood Product 500 Other 366 400 Output: Gastric Drainage 630 20 Drainage 50 73 53 Left Lower Abdomen 30 50 50 Medial Abdomen 10 Right Lower Abdomen 10 23 3 Urine 1450 1850 100 Stool 100 Other: Stool Characteristics Soft Soft Soft Liquid Liquid Liquid Brown Brown Brown Active Medications: Current Medications Acetaminophen (Tylenol) 650 mg PO Q6H PRN PRN Reason: FEVER/PAIN Stop: 06/21/17 17:45 Last Admin: 05/03/17 09:20 Dose: 650 mg Albuterol/Ipratropium (Duoneb Neb) 3 ml HHN Q4HRT ARIAN Stop: 06/15/17 14:59 Last Admin: 05/03/17 11:02 Dose: 3 ml Amiodarone HCl (Cordarone) 200 mg NG BID ARIAN Stop: 06/24/17 23:14 Last Admin: 05/03/17 09:32 Dose: 200 mg Budesonide (Pulmicort) 0.5 mg HHN BIDRT ARIAN Stop: 06/15/17 18:59 Last Admin: 05/03/17 06:51 Dose: 0.5 mg Chlorhexidine Gluconate (Peridex) 15 ml MM 0800,2000 [facility] Stop: 06/30/17 19:59 Last Admin: 05/03/17 08:45 Dose: 15 ml Heparin Sodium (Porcine) (Heparin) 5,000 units SUBQ Q12HR ARIAN Stop: 07/01/17 20:59 Last Admin: 05/03/17 09:35 Dose: Not Given Multivitamins/Minerals 10 ml/Dextrose/ Amino Acids/Electrolytes/ Fat Emulsion Intravenous 2,400 mls @ 100 mls/hr IV .Q24H ARIAN Stop: 06/23/17 15:59 Last Admin: 05/02/17 16:12 Dose: 100 mls/hr Dextrose/Sodium Chloride (D5-0.45ns) 1,000 mls @ 40 mls/hr IV .Q24H ARIAN Stop: 06/23/17 15:59 Last Admin: 05/02/17 02:45 Dose: 40 mls/hr Diltiazem HCl 125 mg/ Dextrose 125 mls @ 10 mls/hr IV TITR ARIAN; 10 MG/HR PRN Reason: Protocol Stop: 06/24/17 12:41 Last Titration: 05/02/17 07:00 Dose: Infused Propofol (Diprivan) 1,000 mg in 100 mls @ 0 mls/hr IV TITR ARIAN; Per Protocol PRN Reason: Protocol Stop: 06/30/17 09:16 Last Admin: 05/03/17 11:00 Dose: 50 mcg/kg/min, 27.352 mls/hr Norepinephrine Bitartrate 4 mg (/ Dextrose) 254 mls @ 0 mls/hr IV TITR PRN; Protocol; 0 MCG/MIN PRN Reason: BP MAINTENANCE (PER PROTOCOL) Stop: 06/30/17 09:25 Last Titration: 05/02/17 07:00 Dose: Infused Meropenem 1 gm/ Sodium (Chloride) 100 mls @ 100 mls/hr IV Q8H ARIAN Stop: 06/30/17 11:14 Last Admin: 05/03/17 11:17 Dose: 100 mls/hr Pantoprazole Sodium 80 mg/ (Sodium Chloride) 100 mls @ 10 mls/hr IV Q10H ARIAN Stop: 07/01/17 09:44 Last Admin: 05/02/17 10:23 Dose: Not Given Fluconazole (Diflucan) 200 mg in 100 mls @ 100 mls/hr IV Q24HR ARIAN Stop: 07/01/17 12:29 Last Infusion: 05/02/17 14:00 Dose: Infused Linezolid (Zyvox) 600 mg in 300 mls @ 300 mls/hr IV Q12HR ARIAN Stop: 07/01/17 20:59 Last Infusion: 05/03/17 10:35 Dose: Infused Insulin Aspart (Novolog Insulin Sliding Scale) 0 units SUBQ Q6HR ARIAN PRN Reason: Protocol Stop: 06/16/17 17:59 Last Admin: 05/03/17 11:28 Dose: 4 units Lorazepam (Ativan) 1 mg IVP Q4HR PRN; Protocol PRN Reason: Agitation Stop: 06/25/17 10:40 Last Admin: 05/01/17 04:57 Dose: 1 mg Metoprolol Tartrate (Lopressor) 25 mg PO BID ARIAN Stop: 06/26/17 08:59 Last Admin: 05/03/17 09:33 Dose: 25 mg Miscellaneous (Probiotic Screen) 1 ea MC PRN PRN PRN Reason: PROTOCOL Stop: 06/14/17 09:39 Miscellaneous (Clinical Monitoring) 1 ea MC DAILY PRN PRN Reason: RENAL Stop: 06/15/17 12:48 Miscellaneous (Tpn Per Pharmacy) 1 ea MC PRN PRN PRN Reason: PROTOCOL Stop: 06/16/17 12:28 Miscellaneous (Vte Chemical Prophylaxis Screen/ Admission) 1 ea MC PRN PRN PRN Reason: PROTOCOL Stop: 07/01/17 14:44 Morphine Sulfate (Morphine) 2 mg IVP Q4HR PRN PRN Reason: pain Stop: 07/01/17 09:37 Last Admin: 05/03/17 00:50 Dose: 2 mg Ondansetron HCl (Zofran) 4 mg IVP Q6H PRN PRN Reason: Nausea / Vomiting Stop: 06/13/17 20:08 Last Admin: 04/25/17 21:06 Dose: 4 mg Pantoprazole Sodium (Protonix) 40 mg IVP BID ARIAN Stop: 07/01/17 10:14 Last Admin: 05/03/17 09:35 Dose: Not Given General: no acute distress, other (obese) HEENT: atraumatic, normocephalic, PERRLA, EOMI Neck: supple, thyromegaly, lines (TLC on tight IJ.) Cardiovascular: S1S2, regular Lungs: clear to auscultation bilaterally, clear to percussion, other (decreased ) Abdomen: soft, distended, drain (ROLANDO x1. colostomy on LLQ, Open surgical incision with tunnelling, wound vac.), catheter, no tender, no hepatomegaly Extremities: edema, other (erythema of left leg.), no cyanosis, no clubbing Neurological: other - Procedures Procedures: Procedures Procedure Code Date BYPASS SIGMOID COLON TO CUTANEOUS, OPEN APPROACH [id number] 04/14/17 INSERT EMERGENCY AIRWAY 07908 04/14/17 INSERTION OF ENDOTRACHEAL AIRWAY INTO TRACHEA, VIA OPENING [id number] 04/14/17 PARTIAL REMOVAL OF COLON 67778 04/14/17 RESECTION OF SIGMOID COLON, OPEN APPROACH [id number] 04/14/17 RESPIRATORY VENTILATION, 24-96 CONSECUTIVE HOURS [id number] 04/14/17 VENT MGMT INPAT INIT DAY 04/14/17 VENT MGMT INPAT SUBQ DAY 04/14/17 Infectious Disease Assmt/Plan - Problem List Patient Problems: All Active Problems Abscess of sigmoid colon due to diverticulitis (Acute) K57.20 Diverticulitis of sigmoid colon (Acute) K57.32 Obesity (Acute) E66.9 Perforation of sigmoid colon due to diverticulitis (Acute) K57.20 Peritonitis (acute) generalized (Acute) K65.0 - Assessment Assessment: 1. Sepsis. febrile. 2. Diverticulitis, sigmoid diverticula to with support complicated by multiple abscesses and peritonitis. 3. Post operatively, on ventilator. 4. Peritonitis. Likely polymicrobial. 5. Asthma exacerbation. 6. History of arthritis. 7. Distended abdomen likely post operative ileus. Rule out small bowel obstruction. 8. SEKOU. Improved. 9. Post op, paralytic ileus. improved. 10. Wrist cellulitis, worse on left with destruction of bones. X ray of the left wrist suggested osteomyelitis. 11. Wound dehiscence. 12. Vent dependent respiratory failure. 13. Left leg cellulitis. Plan: Continue Zyvox iv, merrem and diflucan. CT scan abd/pelvis and chest with contrast. Culture from ROLANDO drain. Blood c/s, sepsis w/u. lactic acid. Nutritional Asmnt/Malnutr-PDOC - Dietary Evaluation Malnutrition Findings (Please click <Entered> for more info): Nutritional Asmnt/Malnutrition Start: 04/19/17 14: 21 Text: Status: Complete Freq: Document 04/19/17 14:21 GSUN (Rec: 04/19/17 14:58 [id number]) Nutritional Asmnt/Malnutrition Patient General Information Nutritional Screening Moderate Risk Screening Diagnosis Sepsis, diverticulitis, peritonitis Pertinent Medical Hx/Surgical Hx Asthma, diverticulosis Subjective Information 56 year old male frome home. Pt was restless, moving extremities during visit. 04/14 : sigmoid colectomy, end colostomy, abscess drainage, diffuse peritontis. 04/16: pt started PPN. 04/17: central line and started on TPN. Spoke to family at bedside, explained parenteral nutrition , family undersoto and has no further question at this time. Weight discrepancies noted in EMR, family does not know UBW , estimated nutritional needs based Current Diet Order/ Nutrition Support TPN D10% AA4.25% at 90ml/hr with IL20% 150ml, providing 1401.6kcal Pertinent Medications Dilaudid, Novolog, Culturelle, Magnesium Sulfate, Vancomycin , TPN, Morphine, Multivitamins , Zofran, Protonix, Nacl0.9% Pertinent Labs 04/14: triglycerides 106, total bilirubin 1.1H, glucose 116H 04/17: magnesium 2.5, phsophorus 3.2 04/19: magnesium 1.8L, phosphorus 2.4L, BUN 28H, creatinine 1.3, glucose 154H, total bilirubin 1.1H, triglycerides 238H Nutritional Hx/Data Height 1.7 m Height (Calculated Centimeters) 170.2 Current Weight (lbs) 95.254 kg Weight (Calculated Kilograms) 95.3 Weight (Calculated Grams) 74485.4 [place] Body Weight 148 Weight Status Overweight GI Symptoms Skin Integrity/Comment: [place] 14. Facial non-pitting 1+, bilateral hands pitting 1+ Estimated Nutritional Goals Calories/Kcals/Kg IBW 148/67.3kg Kcals Calculated 2019-2356kcal (30-35kcal/kg) Protein Calculated 101-135g (1.5-2g/kg) Fluid: ml Per MD Nutritional Problem 1. Problem Problem Altered GI function related to Etiology abscess and perforation of sigmoid colon due to diverticulitis aeb Signs/Symptoms: post-operative, on TPN Intervention/Recommendation Comments 1. Recommend TPN D15% AA5.5% at 100ml/hr with IL20% 150ml, providing 2400ml total volume, 2052kcal, 132g protein, meeting 100% of estimated nutritional needs. Carb load 2 .6mg/kg/min (using 210lb adm weight). 2. Monitor for possible refeeding syndrome, 04/18: phsophorus 2.1L, 04/19: magnesium 1.9. 3. Monitor triglycerides, total bilirubin, glucose, renal labs. Expected Outcomes/Goals Expected Outcomes/Goals 1. Pt to meet 100% of estimated nutritional needs on TPN.
[2017-05-03] MEDS: Fluconazole 200mg/100mL 200 MG/100 ML BAG IV SCH (12:23)
[2017-05-03 14:50] LABS: URINE BILIRUBIN NEGATIVE (NEGATIVE); URINE BLOOD MODERATE (NEGATIVE); URINE COLOR YELLOW; URINE GLUCOSE (UA) NEGATIVE (NEGATIVE); URINE KETONE NEGATIVE (NEGATIVE); URINE PH 7.5; URINE PROTEIN NEGATIVE (NEGATIVE); URINE UROBILINOGEN 0.2 E.U./dL (0.2 - 1.0)
[2017-05-03 14:51] LABS: URINE BACTERIA FEW /hpf (NONE SEEN); URINE EPITHELIAL CELLS FEW /lpf (FEW); URINE RBC 50-100 /hpf (0-5)
[2017-05-03] MEDS: TPN 10%-70% CUSTOM IV SCH (16:15)
--- NOTE | 2017-05-03 22:44 | General Progress Note ---
Subjective - Review of Systems Service Date: 05/03/17 Subjective: encephalopathy, obtunded, nonverbal Objective - Results Result Diagrams: 05/03/17 04:40 05/03/17 04:40 Recent Labs: Laboratory Last Values WBC 6.6 Th/cmm (4.8-10.8) 05/03/17 04:40 RBC 3.53 Mil/cmm (4.30-5.70) L 05/03/17 04:40 Hgb 9.7 gm/dL (13.2-17.3) L D 05/03/17 04:40 Hct 28.9 % (39.0-49.0) L D 05/03/17 04:40 MCV 81.8 fl (80-99) 05/03/17 04:40 MCH 27.6 pg (26.0-30.0) 05/03/17 04:40 MCHC Differential 33.7 pg (28.0-36.0) 05/03/17 04:40 RDW 15.3 % (11.5-20.0) 05/03/17 04:40 Plt Count 358 Th/cmm (150-400) 05/03/17 04:40 MPV 7.7 fl 05/03/17 04:40 Neutrophils % 62.9 % (40.0-80.0) 05/03/17 04:40 Band Neutrophils % 4 % (0-10) 05/02/17 05:15 Lymphocytes % 17.8 % (20.0-50.0) L 05/03/17 04:40 Monocytes % 8.6 % (2.0-10.0) 05/03/17 04:40 Eosinophils % 10.3 % (0.0-5.0) H 05/03/17 04:40 Basophils % 0.4 % (0.0-2.0) 05/03/17 04:40 Neutrophils (Manual) 68 % (40-80) 05/02/17 05:15 Lymphocytes 14 % (20-50) L 05/02/17 05:15 Monocytes 8 % (2-10) 05/02/17 05:15 Eosinophils 6 % (0-5) H 05/02/17 05:15 Metamyelocytes 1 % (0-0) H 04/22/17 05:04 Platelet Estimate ADEQUATE (NORMAL) 05/02/17 05:15 Platelet Morphology NORMAL (NORMAL) 05/02/17 05:15 Anisocytosis 1+ 04/28/17 06:08 Microcytosis 1+ 05/02/17 05:15 RBC Morph Micro Appear ABNORMAL (NORMAL) 05/02/17 05:15 ESR > 140 mm/hr (0-20) H 04/20/17 07:00 PT 11.9 SECONDS (9.5-11.5) H 04/24/17 21:19 INR 1.13 (0.5-1.4) 04/24/17 21:19 PTT (Actin FS) 27.6 SECONDS (26.0-38.0) 04/24/17 21:19 Specimen Source Arterial 05/03/17 09:00 Sample Site Right Radial 05/03/17 09:00 pH 7.52 (7.35-7.45) H 05/03/17 09:00 pCO2 51.0 mmHg (35.0-45.0) H 05/03/17 09:00 pO2 115.0 mmHg (80.0-100.0) H 05/03/17 09:00 HCO3 37.8 mEq/L (20.0-26.0) H 05/03/17 09:00 Base Excess 16.4 mEq/L (-3.0-3.0) H 05/03/17 09:00 O2 Saturation 99.0 % (92.0-100.0) 05/03/17 09:00 Chau Test YES 05/03/17 09:00 Vent Rate 16 05/03/17 09:00 Inspired O2 40 05/03/17 09:00 Tidal Volume 450 05/03/17 09:00 PEEP 3 05/03/17 09:00 Pressure (ins/psv/peep) NA 05/03/17 09:00 Critical Value SH 05/03/17 09:00 Sodium 140 mEq/L (136-145) 05/03/17 04:40 Potassium 3.6 mEq/L (3.5-5.1) 05/03/17 04:40 Chloride 100 mEq/L (98-107) 05/03/17 04:40 Carbon Dioxide 37.9 mEq/L (21.0-31.0) H 05/03/17 04:40 Anion Gap 5.7 (7.0-16.0) L 05/03/17 04:40 BUN 22 mg/dL (7-25) 05/03/17 04:40 Creatinine 1.2 mg/dL (0.7-1.3) 05/03/17 04:40 Est GFR ( Amer) > 60.0 ml/min (>90) 05/03/17 04:40 Est GFR (Non-Af Amer) > 60.0 ml/min 05/03/17 04:40 BUN/Creatinine Ratio 18.3 05/03/17 04:40 Glucose 174 mg/dL (70-105) H 05/03/17 04:40 POC Glucose 238 MG/DL (70 - 105) H 05/03/17 11:27 Hemoglobin A1c % 6.7 % (4.0-6.0) H 04/22/17 05:04 Whole Bld Lactic Acid 2.31 mmol/L (0.60-1.99) H* 05/03/17 15:56 Uric Acid 3.6 mg/dL (4.4-7.6) L 04/20/17 07:00 Calcium 8.6 mg/dL (8.6-10.3) 05/03/17 04:40 Phosphorus 3.4 mg/dL (2.5-5.0) 05/03/17 04:40 Magnesium 2.1 mg/dL (1.9-2.7) 05/03/17 04:40 Total Bilirubin 0.4 mg/dL (0.3-1.0) 05/03/17 04:40 Direct Bilirubin 0.11 mg/dL (0.0-0.2) 05/02/17 05:15 AST 41 U/L (13-39) H 05/03/17 04:40 ALT 18 U/L (7-52) 05/03/17 04:40 Alkaline Phosphatase 105 U/L (34-104) H 05/03/17 04:40 Ammonia 26 umol/L (16-53) 04/30/17 04:35 Creatine Kinase 136 U/L (30-223) 04/14/17 14:55 Troponin I 0.01 ng/mL (0.01-0.05) 04/22/17 05:04 C-Reactive Protein 28.9 mg/dL (0.0-0.9) H 04/20/17 07:00 B-Natriuretic Peptide 85.5 pg/mL (5.0-100.0) 04/14/17 14:55 Total Protein 6.6 gm/dL (6.0-8.3) 05/03/17 04:40 Albumin 2.2 gm/dL (4.2-5.5) L 05/03/17 04:40 Globulin 4.4 gm/dL 05/03/17 04:40 Albumin/Globulin Ratio 0.5 (1.0-1.8) L 05/03/17 04:40 Prealbumin 9 mg/dL (10-36) L 05/01/17 04:30 Triglycerides 290 mg/dL (<150) H 05/01/17 04:30 Cholesterol 78 mg/dL (<200) 04/27/17 04:30 LDL Cholesterol Direct 38 mg/dL (75-193) L 04/14/17 14:55 HDL Cholesterol 13 mg/dL (23-92) L 04/14/17 14:55 Amylase 44 U/L (29-103) 05/03/17 04:40 Lipase 15 U/L (11-82) 04/14/17 14:55 Urine Source SEN PORT 05/03/17 13:38 Urine Color YELLOW 05/03/17 13:38 Urine Clarity TURBID (CLEAR) 05/03/17 13:38 Urine pH 7.5 05/03/17 13:38 Ur Specific Bryan 1.010 (1.005-1.030) 05/03/17 13:38 Urine Protein NEGATIVE mg/dL (NEGATIVE) 05/03/17 13:38 Urine Glucose (UA) NEGATIVE mg/dL (NEGATIVE) 05/03/17 13:38 Urine Ketones NEGATIVE mg/dL (NEGATIVE) 05/03/17 13:38 Urine Blood MODERATE (NEGATIVE) H 05/03/17 13:38 Urine Nitrate NEGATIVE (NEGATIVE) 05/03/17 13:38 Urine Bilirubin NEGATIVE (NEGATIVE) 05/03/17 13:38 Urine Urobilinogen 0.2 E.U./dL (0.2 - 1.0) 05/03/17 13:38 Ur Leukocyte Esterase TRACE (NEGATIVE) H 05/03/17 13:38 Urine RBC 50-100 /hpf (0-5) H 05/03/17 13:38 Urine WBC 6-10 /hpf (0-5) H 05/03/17 13:38 Ur Epithelial Cells FEW /lpf (FEW) 05/03/17 13:38 Amorphous Sediment MANY URATES (NONE SEEN) 04/14/17 15:05 Urine Bacteria FEW /hpf (NONE SEEN) 05/03/17 13:38 Vancomycin Trough 13.5 ug/mL (10-20) 04/19/17 19:20 Blood Type O POSITIVE 05/02/17 07:12 Antibody Screen NEGATIVE 05/02/17 07:12 Crossmatch See Detail 05/02/17 07:12 - Physical Exam Vitals and I&O: Vital Signs Temp 99.6 F 05/03/17 19:00 Pulse 99 05/03/17 21:04 Resp 25 05/03/17 19:00 BP 121/72 05/03/17 19:00 Pulse Ox 99 05/03/17 21:04 Intake & Output 05/03/17 05/03/17 05/04/17 06:59 18:59 06:59 Intake Total 2068.408 5343.788 200 Output Total 2043 2964 Balance 25.408 2379.788 200 Weight (lbs) 95.708 kg 105.063 kg Intake: Intake, IV Amount 855.972 9870.788 200 Fluconazole 200mg/100mL 100 200 mg In 100 ml @ 100 mls/hr IV Q24HR [facility] Rx#: [id number] Linezolid 600mg/300mL 600 600 mg In 300 ml @ 300 mls/ hr IV Q12HR [facility] Rx#: [id number] Meropenem 1 gm In Sodium 200 100.000 100 Chloride 0.9% 100 ml @ 100 mls/hr IV Q8H [facility] Rx# :[id number] Multivitamin Inj 10 ml In 2400 Dextrose 70% 1,740 ml In Amino Acids 10% 500 ml In Intralipids 20% 150 ml @ 100 mls/hr IV .Q24H [facility] Rx#:[id number] Propofol 1,000 mg In 100 268.408 277.788 100 ml @ Per Protocol IV TITR [facility] Rx#:[id number] Oral 0 Tube Feeding 200 TPN/PPN 1200 1300 Other 400 366 Output: Gastric Drainage 20 300 Drainage 73 64 Left Lower Abdomen 50 50 Right Lower Abdomen 23 14 Urine 1850 2600 Stool 100 Other: Stool Characteristics Soft Soft Soft Liquid Liquid Liquid Brown Brown Brown Active Medications: Current Medications Acetaminophen (Tylenol) 650 mg PO Q6H PRN PRN Reason: FEVER/PAIN Stop: 06/21/17 17:45 Last Admin: 05/03/17 09:20 Dose: 650 mg Albuterol/Ipratropium (Duoneb Neb) 3 ml HHN Q4HRT [facility] Stop: 06/15/17 14:59 Last Admin: 05/03/17 19:07 Dose: 3 ml Amiodarone HCl (Cordarone) 200 mg NG BID [facility] Stop: 06/24/17 23:14 Last Admin: 05/03/17 17:03 Dose: 200 mg Budesonide (Pulmicort) 0.5 mg HHN BIDRT [facility] Stop: 06/15/17 18:59 Last Admin: 05/03/17 19:08 Dose: 0.5 mg Chlorhexidine Gluconate (Peridex) 15 ml MM 0800,2000 [facility] Stop: 06/30/17 19:59 Last Admin: 05/03/17 20:30 Dose: 15 ml Heparin Sodium (Porcine) (Heparin) 5,000 units SUBQ Q12HR [facility] Stop: 07/01/17 20:59 Last Admin: 05/03/17 21:44 Dose: Not Given Multivitamins/Minerals 10 ml/Dextrose/ Amino Acids/Electrolytes/ Fat Emulsion Intravenous 2,400 mls @ 100 mls/hr IV .Q24H [facility] Stop: 06/23/17 15:59 Last Admin: 05/03/17 16:15 Dose: 100 mls/hr Dextrose/Sodium Chloride (D5-0.45ns) 1,000 mls @ 40 mls/hr IV .Q24H [facility] Stop: 06/23/17 15:59 Last Admin: 05/02/17 02:45 Dose: 40 mls/hr Diltiazem HCl 125 mg/ Dextrose 125 mls @ 10 mls/hr IV TITR [facility]; 10 MG/HR PRN Reason: Protocol Stop: 06/24/17 12:41 Last Titration: 05/02/17 07:00 Dose: Infused Propofol (Diprivan) 1,000 mg in 100 mls @ 0 mls/hr IV TITR [facility]AN; Per Protocol PRN Reason: Protocol Stop: 06/30/17 09:16 Last Admin: 05/03/17 21:27 Dose: 50 mcg/kg/min, 27.352 mls/hr Norepinephrine Bitartrate 4 mg (/ Dextrose) 254 mls @ 0 mls/hr IV TITR PRN; Protocol; 0 MCG/MIN PRN Reason: BP MAINTENANCE (PER PROTOCOL) Stop: 06/30/17 09:25 Last Titration: 05/02/17 07:00 Dose: Infused Meropenem 1 gm/ Sodium (Chloride) 100 mls @ 100 mls/hr IV Q8H [facility] Stop: 06/30/17 11:14 Last Infusion: 05/03/17 19:30 Dose: Infused Pantoprazole Sodium 80 mg/ (Sodium Chloride) 100 mls @ 10 mls/hr IV Q10H [facility] Stop: 07/01/17 09:44 Last Admin: 05/02/17 20:00 Dose: Not Given Fluconazole (Diflucan) 200 mg in 100 mls @ 100 mls/hr IV Q24HR [facility] Stop: 07/01/17 12:29 Last Infusion: 05/03/17 13:25 Dose: Infused Linezolid (Zyvox) 600 mg in 300 mls @ 300 mls/hr IV Q12HR [facility] Stop: 07/01/17 20:59 Last Admin: 05/03/17 21:29 Dose: 300 mls/hr Insulin Aspart (Novolog Insulin Sliding Scale) 0 units SUBQ Q6HR [facility] PRN Reason: Protocol Stop: 06/16/17 17:59 Last Admin: 05/03/17 17:33 Dose: 4 units Lorazepam (Ativan) 1 mg IVP Q4HR PRN; Protocol PRN Reason: Agitation Stop: 06/25/17 10:40 Last Admin: 05/01/17 04:57 Dose: 1 mg Metoprolol Tartrate (Lopressor) 25 mg PO BID [facility] Stop: 06/26/17 08:59 Last Admin: 05/03/17 17:30 Dose: 25 mg Miscellaneous (Probiotic Screen) 1 ea MC PRN PRN PRN Reason: PROTOCOL Stop: 06/14/17 09:39 Miscellaneous (Clinical Monitoring) 1 ea MC DAILY PRN PRN Reason: RENAL Stop: 06/15/17 12:48 Miscellaneous (Tpn Per Pharmacy) 1 ea MC PRN PRN PRN Reason: PROTOCOL Stop: 06/16/17 12:28 Miscellaneous (Vte Chemical Prophylaxis Screen/ Admission) 1 ea MC PRN PRN PRN Reason: PROTOCOL Stop: 07/01/17 14:44 Morphine Sulfate (Morphine) 2 mg IVP Q4HR PRN PRN Reason: pain Stop: 07/01/17 09:37 Last Admin: 05/03/17 00:50 Dose: 2 mg Ondansetron HCl (Zofran) 4 mg IVP Q6H PRN PRN Reason: Nausea / Vomiting Stop: 06/13/17 20:08 Last Admin: 04/25/17 21:06 Dose: 4 mg Pantoprazole Sodium (Protonix) 40 mg IVP BID [facility] Stop: 07/01/17 10:14 Last Admin: 05/03/17 09:35 Dose: Not Given General: Mild distress HEENT: Atraumatic, PERRLA, EOMI, Mucous membr. moist/pink, Other (oral endotracheal tube,NG tube+) Neck: Supple, +2 carotid pulse wo bruit Cardiovascular: Regular rate, Normal S1, Normal S2 Lungs: Other (diffuse rhonchi.) Abdomen: Soft, Other ( wound VAC anterior open abdominal wall wound. L colostomy retracted but still functional w/ stool output.) Extremities: Other (no edema and cyanosis.) Neurological: Reflexes 2+, Other (Patient is intubated and sedated) Psych/Mental Status: Other (Sedated) - Procedures Procedures: Procedures Procedure Code Date BYPASS SIGMOID COLON TO CUTANEOUS, OPEN APPROACH [id number] 04/14/17 INSERT EMERGENCY AIRWAY 96140 04/14/17 INSERTION OF ENDOTRACHEAL AIRWAY INTO TRACHEA, VIA OPENING [id number] 04/14/17 PARTIAL REMOVAL OF COLON 16918 04/14/17 RESECTION OF SIGMOID COLON, OPEN APPROACH [id number] 04/14/17 RESPIRATORY VENTILATION, 24-96 CONSECUTIVE HOURS [id number] 04/14/17 VENT MGMT INPAT INIT DAY 60326 04/14/17 VENT MGMT INPAT SUBQ DAY 06827 04/14/17 Assessment/Plan - Problem List Patient Problems: All Active Problems Abscess of sigmoid colon due to diverticulitis (Acute) K57.20 Diverticulitis of sigmoid colon (Acute) K57.32 Obesity (Acute) E66.9 Perforation of sigmoid colon due to diverticulitis (Acute) K57.20 Peritonitis (acute) generalized (Acute) K65.0 - Assessment Assessment: POD#19; s/p ex lap, sigmoid colectomy, drainage of peritonitis, lysis adhesions , ROLANDO drain placement 04/14 icu status encephalopathic, confused, obtunded, reintubated and brief ACLS protocol this am. continue IVfluids +TPN tachycardia, afebrile, normal WBC ROLANDO drain minimal output, ROLANDO removed today. renal insufficiency improved, normal BUN/creat dvt prophylaxis Lovenox SQ colostomy end necrosed and sloughed, severely retracted, but functional w/ stool output..... poor candidate for revision of colostomy CT results noted open abd wound, wound vac in place, changed q 3days, wound marge, still some yellow slough. continue iv abx. sen cath stricts ins and out supportive care.... s/w family; guarded prognosis. off vasopressors. consider EGD/PEG for nutritional enteric support Nutritional Asmnt/Malnutr-PDOC - Dietary Evaluation Malnutrition Findings (Please click <Entered> for more info): Nutritional Asmnt/Malnutrition Start: 04/19/17 14: 21 Text: Status: Complete Freq: Document 04/19/17 14:21 GSUN (Rec: 04/19/17 14:58 [id number]) Nutritional Asmnt/Malnutrition Patient General Information Nutritional Screening Moderate Risk Screening Diagnosis Sepsis, diverticulitis, peritonitis Pertinent Medical Hx/Surgical Hx Asthma, diverticulosis Subjective Information 56 year old male frome home. Pt was restless, moving extremities during visit. 04/14 : sigmoid colectomy, end colostomy, abscess drainage, diffuse peritontis. 04/16: pt started PPN. 04/17: central line and started on TPN. Spoke to family at bedside, explained parenteral nutrition , family undersoto and has no further question at this time. Weight discrepancies noted in EMR, family does not know UBW , estimated nutritional needs based Current Diet Order/ Nutrition Support TPN D10% AA4.25% at 90ml/hr with IL20% 150ml, providing 1401.6kcal Pertinent Medications Dilaudid, Novolog, Culturelle, Magnesium Sulfate, Vancomycin , TPN, Morphine, Multivitamins , Zofran, Protonix, Nacl0.9% Pertinent Labs 04/14: triglycerides 106, total bilirubin 1.1H, glucose 116H 04/17: magnesium 2.5, phsophorus 3.2 04/19: magnesium 1.8L, phosphorus 2.4L, BUN 28H, creatinine 1.3, glucose 154H, total bilirubin 1.1H, triglycerides 238H Nutritional Hx/Data Height 1.7 m Height (Calculated Centimeters) 170.2 Current Weight (lbs) 95.254 kg Weight (Calculated Kilograms) 95.3 Weight (Calculated Grams) 35680.4 [place] Body Weight 148 Weight Status Overweight GI Symptoms Skin Integrity/Comment: Gilmer 14. Facial non-pitting 1+, bilateral hands pitting 1+ Estimated Nutritional Goals Calories/Kcals/Kg IBW 148/67.3kg Kcals Calculated 2019-2356kcal (30-35kcal/kg) Protein Calculated 101-135g (1.5-2g/kg) Fluid: ml Per MD Nutritional Problem 1. Problem Problem Altered GI function related to Etiology abscess and perforation of sigmoid colon due to diverticulitis aeb Signs/Symptoms: post-operative, on TPN Intervention/Recommendation Comments 1. Recommend TPN D15% AA5.5% at 100ml/hr with IL20% 150ml, providing 2400ml total volume, 2052kcal, 132g protein, meeting 100% of estimated nutritional needs. Carb load 2 .6mg/kg/min (using 210lb adm weight). 2. Monitor for possible refeeding syndrome, 04/18: phsophorus 2.1L, 04/19: magnesium 1.9. 3. Monitor triglycerides, total bilirubin, glucose, renal labs. Expected Outcomes/Goals Expected Outcomes/Goals 1. Pt to meet 100% of estimated nutritional needs on TPN.
--- NOTE | 2017-05-04 00:43 | Progress Notes ---
DATE: 05/03/2017 PROBLEM LIST: 1. Acute respiratory failure, on mechanical ventilation. 2. Severe obstructive sleep apnea syndrome. SYMPTOMS: Nil. Now he is on mechanical ventilation. No respiratory distress, sedated. PHYSICAL EXAMINATION: GENERAL: The patient is . VITAL SIGNS: Temperature is 96, BP is 137/80, respirations 20, and saturation 100% on 30% of oxygen. ENT: Shows no changes. CHEST: Shows occasional rhonchi with diminished air entry. HEART: Regular. ABDOMEN: Soft, nontender. EXTREMITIES: Shows no peripheral edema. LABORATORY DATA: The patient's white count of 6.6, hemoglobin 9.7. ABG currently on a ventilator; pCO2 of 51, pO2 is 115 on 40% of oxygen. Electrolytes are okay. ASSESSMENT: The patient clinically again on a ventilator. PLANS AND SUGGESTIONS: We will try to attempt to put on SMV mode. We will follow through chest x-ray, etc and go from there. JOB# [id number]
[2017-05-04] MEDS: INSULIN ASPART SLIDING SCALE 100 UNITS/ML UNIT SUBQ SCH ×4 (01:05→19:20)
[2017-05-04] MEDS: Albuterol/Ipratropium Neb 3 ML AERS HHN SCH ×6 (02:05→22:53)
[2017-05-04] MEDS: Meropenem 1 GM in Sodium Chloride 0.9% 100 ML IV SCH ×3 (02:36→18:38)
[2017-05-04 05:30] LABS: % BASOPHILS 0.8 % (0.0-2.0); % EOSINOPHILS 10.7 % (0.0-5.0); % LYMPHOCYTES 19.7 % (20.0-50.0); % MONOCYTES 9.1 % (2.0-10.0); % NEUTROPHILS 59.7 % (40.0-80.0); HEMOGLOBIN 9.7 gm/dL (13.2-17.3); MEAN CELL VOLUME 81.9 fl (80-99); MEAN CORPUSCULAR HEMOGLOBIN 27.3 pg (26.0-30.0); MEAN CORPUSCULAR HGB CONC 33.3 pg (28.0-36.0); MEAN PLATELET VOLUME 7.3 fl; NEUTROPHILE ABSOLUTE 3.1 Th/cmm (1.8-8.0); PLATELET COUNT 366 Th/cmm (150-400); RED BLOOD COUNT 3.54 Mil/cmm (4.30-5.70); RED CELL DISTRIBUTION WIDTH 15.8 % (11.5-20.0)
[2017-05-04 05:33] LABS: WHITE BLOOD COUNT 5.1 Th/cmm (4.8-10.8)
[2017-05-04 05:59] LABS: ALB/GLOB RATIO 0.5 (1.0-1.8); ALKALINE PHOSPHATASE 110 U/L (34-104); ANION GAP 9.2 (7.0-16.0); BILIRUBIN,TOTAL 0.5 mg/dL (0.3-1.0); BUN - UREA NITROGEN 22 mg/dL (7-25); BUN/CREATININE RATIO 18.3; CALCIUM SERUM 9.1 mg/dL (8.6-10.3); CARBON DIOXIDE 35.1 mEq/L (21.0-31.0); CHLORIDE 98 mEq/L (98-107); CREATININE - SERUM 1.2 mg/dL (0.7-1.3); GLUCOSE 170 mg/dL (70-105); POTASSIUM SERUM 3.3 mEq/L (3.5-5.1); SGOT 48 U/L (13-39); SGPT/ALT 18 U/L (7-52); SODIUM SERUM 139 mEq/L (136-145)
[2017-05-04] MEDS: Budesonide 0.5 Mg/2 mL Ud HHN SCH ×2 (07:24→18:43)
[2017-05-04] MEDS: Pantoprazole 80 MG in Sodium Chloride 0.9% 100 ML IV SCH (08:28)
[2017-05-04] MEDS: Chlorhexidine Gluconate 0.12% 15mL Mouthwash MM SCH ×2 (09:00→20:33)
--- NOTE | 2017-05-04 09:00 | General Progress Note ---
Subjective - Review of Systems Subjective: Patient is seen and examined. Patient is actively having upper GI bleed. Discussed with nursing staff about treatment plan. Overall prognosis is guarded . Objective - Results Result Diagrams: 05/04/17 04:37 05/04/17 04:37 Recent Labs: Laboratory Last Values WBC 5.1 Th/cmm (4.8-10.8) D 05/04/17 04:37 RBC 3.54 Mil/cmm (4.30-5.70) L 05/04/17 04:37 Hgb 9.7 gm/dL (13.2-17.3) L 05/04/17 04:37 Hct 29.0 % (39.0-49.0) L 05/04/17 04:37 MCV 81.9 fl (80-99) 05/04/17 04:37 MCH 27.3 pg (26.0-30.0) 05/04/17 04:37 MCHC Differential 33.3 pg (28.0-36.0) 05/04/17 04:37 RDW 15.8 % (11.5-20.0) 05/04/17 04:37 Plt Count 366 Th/cmm (150-400) 05/04/17 04:37 MPV 7.3 fl 05/04/17 04:37 Neutrophils % 59.7 % (40.0-80.0) 05/04/17 04:37 Band Neutrophils % 4 % (0-10) 05/02/17 05:15 Lymphocytes % 19.7 % (20.0-50.0) L 05/04/17 04:37 Monocytes % 9.1 % (2.0-10.0) 05/04/17 04:37 Eosinophils % 10.7 % (0.0-5.0) H 05/04/17 04:37 Basophils % 0.8 % (0.0-2.0) 05/04/17 04:37 Neutrophils (Manual) 68 % (40-80) 05/02/17 05:15 Lymphocytes 14 % (20-50) L 05/02/17 05:15 Monocytes 8 % (2-10) 05/02/17 05:15 Eosinophils 6 % (0-5) H 05/02/17 05:15 Metamyelocytes 1 % (0-0) H 04/22/17 05:04 Platelet Estimate ADEQUATE (NORMAL) 05/02/17 05:15 Platelet Morphology NORMAL (NORMAL) 05/02/17 05:15 Anisocytosis 1+ 04/28/17 06:08 Microcytosis 1+ 05/02/17 05:15 RBC Morph Micro Appear ABNORMAL (NORMAL) 05/02/17 05:15 ESR > 140 mm/hr (0-20) H 04/20/17 07:00 PT 11.9 SECONDS (9.5-11.5) H 04/24/17 21:19 INR 1.13 (0.5-1.4) 04/24/17 21:19 PTT (Actin FS) 27.6 SECONDS (26.0-38.0) 04/24/17 21:19 Specimen Source Arterial 05/03/17 09:00 Sample Site Right Radial 05/03/17 09:00 pH 7.52 (7.35-7.45) H 05/03/17 09:00 pCO2 51.0 mmHg (35.0-45.0) H 05/03/17 09:00 pO2 115.0 mmHg (80.0-100.0) H 05/03/17 09:00 HCO3 37.8 mEq/L (20.0-26.0) H 05/03/17 09:00 Base Excess 16.4 mEq/L (-3.0-3.0) H 05/03/17 09:00 O2 Saturation 99.0 % (92.0-100.0) 05/03/17 09:00 Chau Test YES 05/03/17 09:00 Vent Rate 16 05/03/17 09:00 Inspired O2 40 05/03/17 09:00 Tidal Volume 450 05/03/17 09:00 PEEP 3 05/03/17 09:00 Pressure (ins/psv/peep) NA 05/03/17 09:00 Critical Value SH 05/03/17 09:00 Sodium 139 mEq/L (136-145) 05/04/17 04:37 Potassium 3.3 mEq/L (3.5-5.1) L 05/04/17 04:37 Chloride 98 mEq/L (98-107) 05/04/17 04:37 Carbon Dioxide 35.1 mEq/L (21.0-31.0) H 05/04/17 04:37 Anion Gap 9.2 (7.0-16.0) 05/04/17 04:37 BUN 22 mg/dL (7-25) 05/04/17 04:37 Creatinine 1.2 mg/dL (0.7-1.3) 05/04/17 04:37 Est GFR ( Amer) > 60.0 ml/min (>90) 05/04/17 04:37 Est GFR (Non-Af Amer) > 60.0 ml/min 05/04/17 04:37 BUN/Creatinine Ratio 18.3 05/04/17 04:37 Glucose 170 mg/dL (70-105) H 05/04/17 04:37 POC Glucose 238 MG/DL (70 - 105) H 05/03/17 11:27 Hemoglobin A1c % 6.7 % (4.0-6.0) H 04/22/17 05:04 Whole Bld Lactic Acid 2.31 mmol/L (0.60-1.99) H* 05/03/17 15:56 Uric Acid 3.6 mg/dL (4.4-7.6) L 04/20/17 07:00 Calcium 9.1 mg/dL (8.6-10.3) 05/04/17 04:37 Phosphorus 3.4 mg/dL (2.5-5.0) 05/03/17 04:40 Magnesium 2.1 mg/dL (1.9-2.7) 05/03/17 04:40 Total Bilirubin 0.5 mg/dL (0.3-1.0) 05/04/17 04:37 Direct Bilirubin 0.11 mg/dL (0.0-0.2) 05/02/17 05:15 AST 48 U/L (13-39) H 05/04/17 04:37 ALT 18 U/L (7-52) 05/04/17 04:37 Alkaline Phosphatase 110 U/L (34-104) H 05/04/17 04:37 Ammonia 26 umol/L (16-53) 04/30/17 04:35 Creatine Kinase 136 U/L (30-223) 04/14/17 14:55 Troponin I 0.01 ng/mL (0.01-0.05) 04/22/17 05:04 C-Reactive Protein 28.9 mg/dL (0.0-0.9) H 04/20/17 07:00 B-Natriuretic Peptide 85.5 pg/mL (5.0-100.0) 04/14/17 14:55 Total Protein 6.7 gm/dL (6.0-8.3) 05/04/17 04:37 Albumin 2.2 gm/dL (4.2-5.5) L 05/04/17 04:37 Globulin 4.5 gm/dL 05/04/17 04:37 Albumin/Globulin Ratio 0.5 (1.0-1.8) L 05/04/17 04:37 Prealbumin 9 mg/dL (10-36) L 05/01/17 04:30 Triglycerides 290 mg/dL (<150) H 05/01/17 04:30 Cholesterol 78 mg/dL (<200) 04/27/17 04:30 LDL Cholesterol Direct 38 mg/dL (75-193) L 04/14/17 14:55 HDL Cholesterol 13 mg/dL (23-92) L 04/14/17 14:55 Amylase 44 U/L (29-103) 05/03/17 04:40 Lipase 15 U/L (11-82) 04/14/17 14:55 Urine Source [place] 05/03/17 13:38 Urine Color YELLOW 05/03/17 13:38 Urine Clarity TURBID (CLEAR) 05/03/17 13:38 Urine pH 7.5 05/03/17 13:38 Ur Specific [place] 1.010 (1.005-1.030) 05/03/17 13:38 Urine Protein NEGATIVE mg/dL (NEGATIVE) 05/03/17 13:38 Urine Glucose (UA) NEGATIVE mg/dL (NEGATIVE) 05/03/17 13:38 Urine Ketones NEGATIVE mg/dL (NEGATIVE) 05/03/17 13:38 Urine Blood MODERATE (NEGATIVE) H 05/03/17 13:38 Urine Nitrate NEGATIVE (NEGATIVE) 05/03/17 13:38 Urine Bilirubin NEGATIVE (NEGATIVE) 05/03/17 13:38 Urine Urobilinogen 0.2 E.U./dL (0.2 - 1.0) 05/03/17 13:38 Ur Leukocyte Esterase TRACE (NEGATIVE) H 05/03/17 13:38 Urine RBC 50-100 /hpf (0-5) H 05/03/17 13:38 Urine WBC 6-10 /hpf (0-5) H 05/03/17 13:38 Ur Epithelial Cells FEW /lpf (FEW) 05/03/17 13:38 Amorphous Sediment MANY URATES (NONE SEEN) 04/14/17 15:05 Urine Bacteria FEW /hpf (NONE SEEN) 05/03/17 13:38 Vancomycin Trough 13.5 ug/mL (10-20) 04/19/17 19:20 Blood Type O POSITIVE 05/02/17 07:12 Antibody Screen NEGATIVE 05/02/17 07:12 Crossmatch See Detail 05/02/17 07:12 - Physical Exam Vitals and I&O: Vital Signs Temp 100.7 F 05/04/17 04:00 Pulse 106 05/04/17 08:30 Resp 30 05/04/17 07:00 BP 154/94 05/04/17 08:30 Pulse Ox 100 05/04/17 07:29 Intake & Output 05/03/17 05/04/17 05/04/17 18:59 06:59 18:59 Intake Total 5343.788 1982.347 Output Total 2964 1851 Balance 2379.788 131.347 Weight (lbs) 105.063 kg 87.77 kg Intake: Intake, IV Amount 3477.788 382.347 Fluconazole 200mg/100mL 100 200 mg In 100 ml @ 100 mls/hr IV Q24HR [facility] Rx#: [id number] Linezolid 600mg/300mL 600 600 mg In 300 ml @ 300 mls/ hr IV Q12HR [facility] Rx#: [id number] Meropenem 1 gm In Sodium 100.000 100 Chloride 0.9% 100 ml @ 100 mls/hr IV Q8H [facility] Rx# :[id number] Multivitamin Inj 10 ml In 2400 Dextrose 70% 1,740 ml In Amino Acids 10% 500 ml In Intralipids 20% 150 ml @ 100 mls/hr IV .Q24H [facility] Rx#:[id number] Propofol 1,000 mg In 100 277.788 282.347 ml @ Per Protocol IV TITR ARIAN Rx#:[id number] Oral 0 Tube Feeding 200 TPN/PPN 1300 1200 Other 366 400 Output: Gastric Drainage 300 50 Drainage 64 1 Left Lower Abdomen 50 Right Lower Abdomen 14 1 Urine 2600 1800 Other: Stool Characteristics Soft Soft Liquid Liquid Brown Brown Active Medications: Current Medications Acetaminophen (Tylenol) 650 mg PO Q6H PRN PRN Reason: FEVER/PAIN Stop: 06/21/17 17:45 Last Admin: 05/03/17 09:20 Dose: 650 mg Albuterol/Ipratropium (Duoneb Neb) 3 ml HHN Q4HRT [facility] Stop: 06/15/17 14:59 Last Admin: 05/04/17 07:24 Dose: 3 ml Amiodarone HCl (Cordarone) 200 mg NG BID [facility] Stop: 06/24/17 23:14 Last Admin: 05/03/17 17:03 Dose: 200 mg Budesonide (Pulmicort) 0.5 mg HHN BIDRT [facility] Stop: 06/15/17 18:59 Last Admin: 05/04/17 07:24 Dose: 0.5 mg Chlorhexidine Gluconate (Peridex) 15 ml MM 0800,2000 [facility] Stop: 06/30/17 19:59 Last Admin: 05/03/17 20:30 Dose: 15 ml Heparin Sodium (Porcine) (Heparin) 5,000 units SUBQ Q12HR [facility] Stop: 07/01/17 20:59 Last Admin: 05/04/17 08:13 Dose: Not Given Multivitamins/Minerals 10 ml/Dextrose/ Amino Acids/Electrolytes/ Fat Emulsion Intravenous 2,400 mls @ 100 mls/hr IV .Q24H [facility] Stop: 06/23/17 15:59 Last Admin: 05/03/17 16:15 Dose: 100 mls/hr Dextrose/Sodium Chloride (D5-0.45ns) 1,000 mls @ 40 mls/hr IV .Q24H [facility] Stop: 06/23/17 15:59 Last Admin: 05/02/17 02:45 Dose: 40 mls/hr Diltiazem HCl 125 mg/ Dextrose 125 mls @ 10 mls/hr IV TITR ARIAN; 10 MG/HR PRN Reason: Protocol Stop: 06/24/17 12:41 Last Titration: 05/02/17 07:00 Dose: Infused Propofol (Diprivan) 1,000 mg in 100 mls @ 0 mls/hr IV TITR ARIAN; Per Protocol PRN Reason: Protocol Stop: 06/30/17 09:16 Last Admin: 05/04/17 04:07 Dose: 50 mcg/kg/min, 27.352 mls/hr Norepinephrine Bitartrate 4 mg (/ Dextrose) 254 mls @ 0 mls/hr IV TITR PRN; Protocol; 0 MCG/MIN PRN Reason: BP MAINTENANCE (PER PROTOCOL) Stop: 06/30/17 09:25 Last Titration: 05/02/17 07:00 Dose: Infused Meropenem 1 gm/ Sodium (Chloride) 100 mls @ 100 mls/hr IV Q8H [facility] Stop: 06/30/17 11:14 Last Admin: 05/04/17 02:36 Dose: 100 mls/hr Pantoprazole Sodium 80 mg/ (Sodium Chloride) 100 mls @ 10 mls/hr IV Q10H [facility] Stop: 07/01/17 09:44 Last Admin: 05/04/17 08:28 Dose: Not Given Fluconazole (Diflucan) 200 mg in 100 mls @ 100 mls/hr IV Q24HR [facility] Stop: 07/01/17 12:29 Last Infusion: 05/03/17 13:25 Dose: Infused Linezolid (Zyvox) 600 mg in 300 mls @ 300 mls/hr IV Q12HR [facility] Stop: 07/01/17 20:59 Last Admin: 05/03/17 21:29 Dose: 300 mls/hr Insulin Aspart (Novolog Insulin Sliding Scale) 0 units SUBQ Q6HR [facility] PRN Reason: Protocol Stop: 06/16/17 17:59 Last Admin: 05/04/17 06:25 Dose: 2 units Lorazepam (Ativan) 1 mg IVP Q4HR PRN; Protocol PRN Reason: Agitation Stop: 06/25/17 10:40 Last Admin: 05/01/17 04:57 Dose: 1 mg Metoprolol Tartrate (Lopressor) 25 mg PO BID [facility] Stop: 06/26/17 08:59 Last Admin: 05/03/17 17:30 Dose: 25 mg Miscellaneous (Probiotic Screen) 1 ea MC PRN PRN PRN Reason: PROTOCOL Stop: 06/14/17 09:39 Miscellaneous (Clinical Monitoring) 1 ea MC DAILY PRN PRN Reason: RENAL Stop: 06/15/17 12:48 Miscellaneous (Tpn Per Pharmacy) 1 ea MC PRN PRN PRN Reason: PROTOCOL Stop: 06/16/17 12:28 Miscellaneous (Vte Chemical Prophylaxis Screen/ Admission) 1 ea MC PRN PRN PRN Reason: PROTOCOL Stop: 07/01/17 14:44 Morphine Sulfate (Morphine) 2 mg IVP Q4HR PRN PRN Reason: pain Stop: 07/01/17 09:37 Last Admin: 05/03/17 00:50 Dose: 2 mg Ondansetron HCl (Zofran) 4 mg IVP Q6H PRN PRN Reason: Nausea / Vomiting Stop: 06/13/17 20:08 Last Admin: 04/25/17 21:06 Dose: 4 mg Pantoprazole Sodium (Protonix) 40 mg IVP BID [facility] Stop: 07/01/17 10:14 Last Admin: 05/04/17 08:54 Dose: Not Given General: Mild distress HEENT: Atraumatic, PERRLA, EOMI, Mucous membr. moist/pink, Other (oral endotracheal tube,NG tube+) Neck: Supple, +2 carotid pulse wo bruit Cardiovascular: Regular rate, Normal S1, Normal S2 Lungs: Other (diffuse rhonchi.) Abdomen: Soft, Other ( wound VAC anterior open abdominal wall wound. L colostomy retracted but still functional w/ stool output.) Extremities: Other (no edema and cyanosis.) Neurological: Reflexes 2+, Other (Patient is intubated and sedated) Psych/Mental Status: Other (Sedated) - Procedures Procedures: Procedures Procedure Code Date BYPASS SIGMOID COLON TO CUTANEOUS, OPEN APPROACH [id number] 04/14/17 INSERT EMERGENCY AIRWAY 77759 04/14/17 INSERTION OF ENDOTRACHEAL AIRWAY INTO TRACHEA, VIA OPENING [id number] 04/14/17 PARTIAL REMOVAL OF COLON 95934 04/14/17 RESECTION OF SIGMOID COLON, OPEN APPROACH [id number] 04/14/17 RESPIRATORY VENTILATION, 24-96 CONSECUTIVE HOURS [id number] 04/14/17 VENT MGMT INPAT INIT DAY 91800 04/14/17 VENT MGMT INPAT SUBQ DAY 44761 04/14/17 Assessment/Plan - Problem List Patient Problems: All Active Problems Abscess of sigmoid colon due to diverticulitis (Acute) K57.20 Diverticulitis of sigmoid colon (Acute) K57.32 Obesity (Acute) E66.9 Perforation of sigmoid colon due to diverticulitis (Acute) K57.20 Peritonitis (acute) generalized (Acute) K65.0 - Assessment Assessment: Current Active Problems Problem Status Onset Abscess of sigmoid colon due to diverticulitis Acute Diverticulitis of sigmoid colon Acute Obesity Acute Perforation of sigmoid colon due to diverticulitis Acute Peritonitis (acute) generalized Acute Perforated diverticulitis status post expiratory laparotomy and colostomy placement. Postoperative respiratory failure on vent. Obesity. Upper GI. It was administered for mine ruled out stress induced ulcer. Suspect developing ARDS. Polymicrobial peritonitis due to perforation.. Asthma. SVT currently on Cardizem drip Electrolyte imbalance. SEKOU improving. Encephalopathy due to metabolic and infectious etio. Open surgical wound with wound VAC. Altered mental status secondary to metabolic and infectious encephalopathy. Postop anemia. - Plan Plan: Wound Vac as per surgery. IVF and TPN. Correct electrolytes. IV antibiotics as per ID. Rate control. PPI not available we'll start on Pepcid IV. Blood transfusion PRN. vent support. and HHN. Pulmo toilet. Follow-up lab and chest x-ray. Monitor strict I's and O's. Pulmonary follow-up. GI and DVT prophylaxis. Follow up on consultants recommendations. Symptoms management. Medication management. Overall prognosis is guarded. Care plan discussed with RN. Nutritional Asmnt/Malnutr-PDOC - Dietary Evaluation Malnutrition Findings (Please click <Entered> for more info): Nutritional Asmnt/Malnutrition Start: 04/19/17 14: 21 Text: Status: Complete Freq: Document 04/19/17 14:21 GSUN (Rec: 04/19/17 14:58 [id number]) Nutritional Asmnt/Malnutrition Patient General Information Nutritional Screening Moderate Risk Screening Diagnosis Sepsis, diverticulitis, peritonitis Pertinent Medical Hx/Surgical Hx Asthma, diverticulosis Subjective Information 56 year old male frome home. Pt was restless, moving extremities during visit. 04/14 : sigmoid colectomy, end colostomy, abscess drainage, diffuse peritontis. 04/16: pt started PPN. 04/17: central line and started on TPN. Spoke to family at bedside, explained parenteral nutrition , family undersoto and has no further question at this time. Weight discrepancies noted in EMR, family does not know UBW , estimated nutritional needs based Current Diet Order/ Nutrition Support TPN D10% AA4.25% at 90ml/hr with IL20% 150ml, providing 1401.6kcal Pertinent Medications Dilaudid, Novolog, Culturelle, Magnesium Sulfate, Vancomycin , TPN, Morphine, Multivitamins , Zofran, Protonix, Nacl0.9% Pertinent Labs 04/14: triglycerides 106, total bilirubin 1.1H, glucose 116H 04/17: magnesium 2.5, phsophorus 3.2 04/19: magnesium 1.8L, phosphorus 2.4L, BUN 28H, creatinine 1.3, glucose 154H, total bilirubin 1.1H, triglycerides 238H Nutritional Hx/Data Height 1.7 m Height (Calculated Centimeters) 170.2 Current Weight (lbs) 95.254 kg Weight (Calculated Kilograms) 95.3 Weight (Calculated Grams) 22215.4 [place] Body Weight 148 Weight Status Overweight GI Symptoms Skin Integrity/Comment: [place] 14. Facial non-pitting 1+, bilateral hands pitting 1+ Estimated Nutritional Goals Calories/Kcals/Kg IBW 148/67.3kg Kcals Calculated 2019-2356kcal (30-35kcal/kg) Protein Calculated 101-135g (1.5-2g/kg) Fluid: ml Per MD Nutritional Problem 1. Problem Problem Altered GI function related to Etiology abscess and perforation of sigmoid colon due to diverticulitis aeb Signs/Symptoms: post-operative, on TPN Intervention/Recommendation Comments 1. Recommend TPN D15% AA5.5% at 100ml/hr with IL20% 150ml, providing 2400ml total volume, 2052kcal, 132g protein, meeting 100% of estimated nutritional needs. Carb load 2 .6mg/kg/min (using 210lb adm weight). 2. Monitor for possible refeeding syndrome, 04/18: phsophorus 2.1L, 04/19: magnesium 1.9. 3. Monitor triglycerides, total bilirubin, glucose, renal labs. Expected Outcomes/Goals Expected Outcomes/Goals 1. Pt to meet 100% of estimated nutritional needs on TPN.
[2017-05-04 09:50] LABS: ABG SOURCE Arterial; ALLEN TEST Positive; BE(B) 14.5 mEq/L (-3.0-3.0); HCO3 36.3 mEq/L (20.0-26.0)
[2017-05-04 09:51] LABS: FIO2 30; MECH RATE 10; MECH VT 450; PS 10
[2017-05-04 09:52] LABS: CRITICAL VALUES REPORTED BY AC
--- NOTE | 2017-05-04 10:07 | Diagnostic Imaging Report ---
CHEST X-RAY: AP view INDICATION: Pneumonia COMPARISON: 05/03/2017 FINDINGS: ET tube is seen with tip 5.7 cm above the ondina. Remaining support devices are stable. No focal consolidation or effusions. Suboptimal lung volume are noted. Borderline prominent heart is noted. IMPRESSION: Suboptimal lung volumes. No focal consolidation identified. ET tube with tip 5.7 cm above the [place].
[2017-05-04] MEDS: Linezolid 600mg/300mL 600 MG/300 ML BAG IV SCH ×2 (10:43→20:59)
--- NOTE | 2017-05-04 10:56 | Diagnostic Imaging Report ---
Exam: NG tube placement. HISTORY: NG tube placement Findings: Portable examination of the chest at 1032 hours reviewed. The study demonstrates NG tube passes into the stomach. The visualized the right jugular catheter terminates in superior vein cava. Endotracheal tube in satisfactory position. IMPRESSION: NG tube in the stomach.
[2017-05-04] MEDS ORDERED: KCL 20mEq/100mL Premix 20 MEQ/100 ML PIGGYBACK IV ONE (11:00)
--- NOTE | 2017-05-04 11:43 | Operative Report ---
DATE OF SURGERY: 05/04/2017 PROCEDURE: Esophagogastroduodenoscopy with biopsy. PREPROCEDURE DIAGNOSIS: Upper gastrointestinal bleed. POSTPROCEDURE: 1. Intact nasogastric tube with esophagitis. 2. Mild gastritis of the cardia and body, status post CLOtest. 3. A few scattered GE junction ulcers, erosions possibly due to nasogastric tube suction trauma; status post biopsy. INDICATION: A 56-year-old male with complicated past medical history including diverting colostomy and sigmoidectomy for a perforated sigmoid colon now with peritonitis. He has respiratory failure. He has a nasogastric tube intact. He had coffee ground emesis. An upper endoscopy is planned today for further evaluation. CONSENT: Informed consent was obtained from the patient's family prior to procedure after explaining risk, benefits, and alternatives including but not limited to infection, perforation, and . SEDATION: Monitored anesthesia care per Dr. Pratt. DESCRIPTION OF PROCEDURE AND FINDINGS: The procedure took place as an inpatient at the bedside of the Int[facility] Care [facility] of [facility]. The patient was kept in a semi-lithotomy position. Adequate sedation was achieved with the above medications. An Olympus diagnostic upper endoscope was advanced via the patient's mouth and into the esophagus. There was an intact nasogastric tube with tip noted endoscopically in the gastric cardia. There was some mild underlying esophagitis with erosions at the distal portion. The Z line was at approximately 40 cm from the gums. Retroflexion of stomach revealed no GE junction mass or varices, and no hiatal hernia was identified. Mild gastritis likely from nasogastric tube suction trauma was identified in the cardia and body. There were also some GE junction ulcers and erosions, probably from the nasogastric tube. Biopsies were obtained from the ulcer edges and submitted for histopathology. Biopsies were also obtained from antrum and midbody and submitted for CLOtest. The pyloric channel and duodenum up to second portion appeared normal. The scope was then withdrawn. The patient tolerated the procedure well and no complications are anticipated. RECOMMENDATIONS: 1. Protonix. 2. Nasogastric tube to be repositioned as that was slightly dislodged after scope withdrawal. 3. Follow up biopsy results. 4. Monitor hemoglobin, transfuse as necessary. Thank you, Dr. Ugo Kahn and Dr. Tab Bro, for involving us in the care of your patient. If any further questions, please call us. JOB# [id number] SLOANE
[2017-05-04] MEDS: Fluconazole 200mg/100mL 200 MG/100 ML BAG IV SCH (14:44)
[2017-05-04] MEDS: TPN 10%-70% CUSTOM IV SCH (16:03)
[2017-05-04] MEDS: D5-0.45NS 1,000 ML IV SCH (16:18)
--- NOTE | 2017-05-04 17:30 | General Progress Note ---
Subjective - Review of Systems Service Date: 05/04/17 Subjective: encephalopathy, obtunded, nonverbal Objective - Results Result Diagrams: 05/04/17 04:37 05/04/17 04:37 Recent Labs: Laboratory Last Values WBC 5.1 Th/cmm (4.8-10.8) D 05/04/17 04:37 RBC 3.54 Mil/cmm (4.30-5.70) L 05/04/17 04:37 Hgb 9.7 gm/dL (13.2-17.3) L 05/04/17 04:37 Hct 29.0 % (39.0-49.0) L 05/04/17 04:37 MCV 81.9 fl (80-99) 05/04/17 04:37 MCH 27.3 pg (26.0-30.0) 05/04/17 04:37 MCHC Differential 33.3 pg (28.0-36.0) 05/04/17 04:37 RDW 15.8 % (11.5-20.0) 05/04/17 04:37 Plt Count 366 Th/cmm (150-400) 05/04/17 04:37 MPV 7.3 fl 05/04/17 04:37 Neutrophils % 59.7 % (40.0-80.0) 05/04/17 04:37 Band Neutrophils % 4 % (0-10) 05/02/17 05:15 Lymphocytes % 19.7 % (20.0-50.0) L 05/04/17 04:37 Monocytes % 9.1 % (2.0-10.0) 05/04/17 04:37 Eosinophils % 10.7 % (0.0-5.0) H 05/04/17 04:37 Basophils % 0.8 % (0.0-2.0) 05/04/17 04:37 Neutrophils (Manual) 68 % (40-80) 05/02/17 05:15 Lymphocytes 14 % (20-50) L 05/02/17 05:15 Monocytes 8 % (2-10) 05/02/17 05:15 Eosinophils 6 % (0-5) H 05/02/17 05:15 Metamyelocytes 1 % (0-0) H 04/22/17 05:04 Platelet Estimate ADEQUATE (NORMAL) 05/02/17 05:15 Platelet Morphology NORMAL (NORMAL) 05/02/17 05:15 Anisocytosis 1+ 04/28/17 06:08 Microcytosis 1+ 05/02/17 05:15 RBC Morph Micro Appear ABNORMAL (NORMAL) 05/02/17 05:15 ESR > 140 mm/hr (0-20) H 04/20/17 07:00 PT 11.9 SECONDS (9.5-11.5) H 04/24/17 21:19 INR 1.13 (0.5-1.4) 04/24/17 21:19 PTT (Actin FS) 27.6 SECONDS (26.0-38.0) 04/24/17 21:19 Specimen Source Arterial 05/04/17 09:31 Sample Site Left Radial 05/04/17 09:31 pH 7.50 (7.35-7.45) H 05/04/17 09:31 pCO2 51.0 mmHg (35.0-45.0) H 05/04/17 09:31 pO2 95.0 mmHg (80.0-100.0) 05/04/17 09:31 HCO3 36.3 mEq/L (20.0-26.0) H 05/04/17 09:31 Base Excess 14.5 mEq/L (-3.0-3.0) H 05/04/17 09:31 O2 Saturation 98.0 % (92.0-100.0) 05/04/17 09:31 Chau Test Positive 05/04/17 09:31 Vent Rate 10 05/04/17 09:31 Inspired O2 30 05/04/17 09:31 Tidal Volume 450 05/04/17 09:31 PEEP 3 05/04/17 09:31 Pressure (ins/psv/peep) 10 05/04/17 09:31 Critical Value AC 05/04/17 09:31 Sodium 139 mEq/L (136-145) 05/04/17 04:37 Potassium 3.3 mEq/L (3.5-5.1) L 05/04/17 04:37 Chloride 98 mEq/L (98-107) 05/04/17 04:37 Carbon Dioxide 35.1 mEq/L (21.0-31.0) H 05/04/17 04:37 Anion Gap 9.2 (7.0-16.0) 05/04/17 04:37 BUN 22 mg/dL (7-25) 05/04/17 04:37 Creatinine 1.2 mg/dL (0.7-1.3) 05/04/17 04:37 Est GFR ( Amer) > 60.0 ml/min (>90) 05/04/17 04:37 Est GFR (Non-Af Amer) > 60.0 ml/min 05/04/17 04:37 BUN/Creatinine Ratio 18.3 05/04/17 04:37 Glucose 170 mg/dL (70-105) H 05/04/17 04:37 POC Glucose 177 MG/DL (70-105) H 05/04/17 06:21 Hemoglobin A1c % 6.7 % (4.0-6.0) H 04/22/17 05:04 Whole Bld Lactic Acid 2.31 mmol/L (0.60-1.99) H* 05/03/17 15:56 Uric Acid 3.6 mg/dL (4.4-7.6) L 04/20/17 07:00 Calcium 9.1 mg/dL (8.6-10.3) 05/04/17 04:37 Phosphorus 3.5 mg/dL (2.5-5.0) 05/04/17 04:37 Magnesium 1.9 mg/dL (1.9-2.7) 05/04/17 04:37 Total Bilirubin 0.5 mg/dL (0.3-1.0) 05/04/17 04:37 Direct Bilirubin 0.11 mg/dL (0.0-0.2) 05/02/17 05:15 AST 48 U/L (13-39) H 05/04/17 04:37 ALT 18 U/L (7-52) 05/04/17 04:37 Alkaline Phosphatase 110 U/L (34-104) H 05/04/17 04:37 Ammonia 26 umol/L (16-53) 04/30/17 04:35 Creatine Kinase 136 U/L (30-223) 04/14/17 14:55 Troponin I 0.01 ng/mL (0.01-0.05) 04/22/17 05:04 C-Reactive Protein 28.9 mg/dL (0.0-0.9) H 04/20/17 07:00 B-Natriuretic Peptide 85.5 pg/mL (5.0-100.0) 04/14/17 14:55 Total Protein 6.7 gm/dL (6.0-8.3) 05/04/17 04:37 Albumin 2.2 gm/dL (4.2-5.5) L 05/04/17 04:37 Globulin 4.5 gm/dL 05/04/17 04:37 Albumin/Globulin Ratio 0.5 (1.0-1.8) L 05/04/17 04:37 Prealbumin 9 mg/dL (10-36) L 05/01/17 04:30 Triglycerides 290 mg/dL (<150) H 05/01/17 04:30 Cholesterol 78 mg/dL (<200) 04/27/17 04:30 LDL Cholesterol Direct 38 mg/dL (75-193) L 04/14/17 14:55 HDL Cholesterol 13 mg/dL (23-92) L 04/14/17 14:55 Amylase 44 U/L (29-103) 05/03/17 04:40 Lipase 15 U/L (11-82) 04/14/17 14:55 Urine Source SEN PORT 05/03/17 13:38 Urine Color YELLOW 05/03/17 13:38 Urine Clarity TURBID (CLEAR) 05/03/17 13:38 Urine pH 7.5 05/03/17 13:38 Ur Specific [place] 1.010 (1.005-1.030) 05/03/17 13:38 Urine Protein NEGATIVE mg/dL (NEGATIVE) 05/03/17 13:38 Urine Glucose (UA) NEGATIVE mg/dL (NEGATIVE) 05/03/17 13:38 Urine Ketones NEGATIVE mg/dL (NEGATIVE) 05/03/17 13:38 Urine Blood MODERATE (NEGATIVE) H 05/03/17 13:38 Urine Nitrate NEGATIVE (NEGATIVE) 05/03/17 13:38 Urine Bilirubin NEGATIVE (NEGATIVE) 05/03/17 13:38 Urine Urobilinogen 0.2 E.U./dL (0.2 - 1.0) 05/03/17 13:38 Ur Leukocyte Esterase TRACE (NEGATIVE) H 05/03/17 13:38 Urine RBC 50-100 /hpf (0-5) H 05/03/17 13:38 Urine WBC 6-10 /hpf (0-5) H 05/03/17 13:38 Ur Epithelial Cells FEW /lpf (FEW) 05/03/17 13:38 Amorphous Sediment MANY URATES (NONE SEEN) 04/14/17 15:05 Urine Bacteria FEW /hpf (NONE SEEN) 05/03/17 13:38 Vancomycin Trough 13.5 ug/mL (10-20) 04/19/17 19:20 Blood Type O POSITIVE 05/02/17 07:12 Antibody Screen NEGATIVE 05/02/17 07:12 Crossmatch See Detail 05/02/17 07:12 - Physical Exam Vitals and I&O: Vital Signs Temp 99.8 F 05/04/17 17:00 Pulse 102 05/04/17 17:07 Resp 29 05/04/17 17:00 BP 130/78 05/04/17 17:07 Pulse Ox 99 05/04/17 17:00 Intake & Output 05/03/17 05/04/17 05/04/17 18:59 06:59 18:59 Intake Total 5343.788 2382.347 3047.924 Output Total 2964 1851 Balance 2379.788 063.627 9528.924 Weight (lbs) 105.063 kg 87.77 kg Intake: Intake, IV Amount 3477.788 314.074 7445.924 Fluconazole 200mg/100mL 100 100 200 mg In 100 ml @ 100 mls/hr IV Q24HR [facility] Rx#: [id number] Linezolid 600mg/300mL 600 600 300 300 mg In 300 ml @ 300 mls/ hr IV Q12HR [facility] Rx#: [id number] Meropenem 1 gm In Sodium 100.000 200 100 Chloride 0.9% 100 ml @ 100 mls/hr IV Q8H [facility] Rx# :[id number] Multivitamin Inj 10 ml In 2400 2380 Dextrose 70% 1,740 ml In Amino Acids 10% 500 ml In Intralipids 20% 150 ml @ 100 mls/hr IV .Q24H [facility] Rx#:[id number] Propofol 1,000 mg In 100 277.788 282.347 167.924 ml @ Per Protocol IV TITR [facility] Rx#:[id number] Oral 0 Tube Feeding 200 TPN/PPN 1300 1200 Other 366 400 Output: Gastric Drainage 300 50 Drainage 64 1 Left Lower Abdomen 50 Right Lower Abdomen 14 1 Urine 2600 1800 Other: Stool Characteristics Soft Soft Liquid Liquid Liquid Brown Brown Brown Active Medications: Current Medications Acetaminophen (Tylenol) 650 mg PO Q6H PRN PRN Reason: FEVER/PAIN Stop: 06/21/17 17:45 Last Admin: 05/03/17 09:20 Dose: 650 mg Albuterol/Ipratropium (Duoneb Neb) 3 ml HHN Q4HRT [facility] Stop: 06/15/17 14:59 Last Admin: 05/04/17 14:41 Dose: 3 ml Amiodarone HCl (Cordarone) 200 mg NG BID [facility] Stop: 06/24/17 23:14 Last Admin: 05/04/17 16:02 Dose: 200 mg Budesonide (Pulmicort) 0.5 mg HHN BIDRT [facility] Stop: 06/15/17 18:59 Last Admin: 05/04/17 07:24 Dose: 0.5 mg Chlorhexidine Gluconate (Peridex) 15 ml MM 08,1999 [facility] Stop: 06/30/17 19:59 Last Admin: 05/04/17 09:00 Dose: 15 ml Famotidine (Pepcid) 20 mg IVP Q12H PRN PRN Reason: IF PROTONIX IV UNAVAILABLE Stop: 07/03/17 08:59 Heparin Sodium (Porcine) (Heparin) 5,000 units SUBQ Q12HR [facility] Stop: 07/01/17 20:59 Last Admin: 05/04/17 08:13 Dose: Not Given Multivitamins/Minerals 10 ml/Dextrose/ Amino Acids/Electrolytes/ Fat Emulsion Intravenous 2,400 mls @ 100 mls/hr IV .Q24H [facility] Stop: 06/23/17 15:59 Last Admin: 05/04/17 16:03 Dose: 100 mls/hr Dextrose/Sodium Chloride (D5-0.45ns) 1,000 mls @ 40 mls/hr IV .Q24H [facility] Stop: 06/23/17 15:59 Last Admin: 05/04/17 16:18 Dose: 40 mls/hr Diltiazem HCl 125 mg/ Dextrose 125 mls @ 10 mls/hr IV TITR [facility]; 10 MG/HR PRN Reason: Protocol Stop: 06/24/17 12:41 Last Titration: 05/02/17 07:00 Dose: Infused Norepinephrine Bitartrate 4 mg (/ Dextrose) 254 mls @ 0 mls/hr IV TITR PRN; Protocol; 0 MCG/MIN PRN Reason: BP MAINTENANCE (PER PROTOCOL) Stop: 06/30/17 09:25 Last Titration: 05/02/17 07:00 Dose: Infused Meropenem 1 gm/ Sodium (Chloride) 100 mls @ 100 mls/hr IV Q8H [facility] Stop: 06/30/17 11:14 Last Infusion: 05/04/17 13:55 Dose: Infused Fluconazole (Diflucan) 200 mg in 100 mls @ 100 mls/hr IV Q24HR [facility] Stop: 07/01/17 12:29 Last Infusion: 05/04/17 15:51 Dose: Infused Linezolid (Zyvox) 600 mg in 300 mls @ 300 mls/hr IV Q12HR [facility] Stop: 07/01/17 20:59 Last Infusion: 05/04/17 11:45 Dose: Infused Insulin Aspart (Novolog Insulin Sliding Scale) 0 units SUBQ Q6HR [facility] PRN Reason: Protocol Stop: 06/16/17 17:59 Last Admin: 05/04/17 11:23 Dose: 4 units Lorazepam (Ativan) 1 mg IVP Q4HR PRN; Protocol PRN Reason: Agitation Stop: 06/25/17 10:40 Last Admin: 05/01/17 04:57 Dose: 1 mg Lorazepam (Ativan) 1 mg IVP Q4HR PRN; Protocol PRN Reason: Agitation Stop: 07/03/17 16:14 Metoprolol Tartrate (Lopressor) 25 mg PO BID [facility] Stop: 06/26/17 08:59 Last Admin: 05/04/17 17:07 Dose: 25 mg Miscellaneous (Probiotic Screen) 1 ea MC PRN PRN PRN Reason: PROTOCOL Stop: 06/14/17 09:39 Miscellaneous (Clinical Monitoring) 1 ea MC DAILY PRN PRN Reason: RENAL Stop: 06/15/17 12:48 Miscellaneous (Tpn Per Pharmacy) 1 ea MC PRN PRN PRN Reason: PROTOCOL Stop: 06/16/17 12:28 Miscellaneous (Vte Chemical Prophylaxis Screen/ Admission) 1 ea MC PRN PRN PRN Reason: PROTOCOL Stop: 07/01/17 14:44 Morphine Sulfate (Morphine) 2 mg IVP Q4HR PRN PRN Reason: pain Stop: 07/01/17 09:37 Last Admin: 05/03/17 00:50 Dose: 2 mg Ondansetron HCl (Zofran) 4 mg IVP Q6H PRN PRN Reason: Nausea / Vomiting Stop: 06/13/17 20:08 Last Admin: 04/25/17 21:06 Dose: 4 mg Pantoprazole Sodium (Protonix) 40 mg IVP BID [facility] Stop: 07/01/17 10:14 Last Admin: 05/04/17 16:02 Dose: 40 mg General: Mild distress HEENT: Atraumatic, PERRLA, EOMI, Mucous membr. moist/pink, Other (oral endotracheal tube,NG tube+) Neck: Supple, +2 carotid pulse wo bruit Cardiovascular: Regular rate, Normal S1, Normal S2 Lungs: Other (diffuse rhonchi.) Abdomen: Soft, Other ( wound VAC anterior open abdominal wall wound. L colostomy retracted but still functional w/ stool output.) Extremities: Other (no edema and cyanosis.) Neurological: Reflexes 2+, Other (Patient is intubated and sedated) Psych/Mental Status: Other (Sedated) - Procedures Procedures: Procedures Procedure Code Date BYPASS SIGMOID COLON TO CUTANEOUS, OPEN APPROACH [id number] 04/14/17 INSERT EMERGENCY AIRWAY 23077 04/14/17 INSERTION OF ENDOTRACHEAL AIRWAY INTO TRACHEA, VIA OPENING [id number] 04/14/17 PARTIAL REMOVAL OF COLON 17821 04/14/17 RESECTION OF SIGMOID COLON, OPEN APPROACH [id number] 04/14/17 RESPIRATORY VENTILATION, 24-96 CONSECUTIVE HOURS [id number] 04/14/17 VENT MGMT INPAT INIT DAY 01505 04/14/17 VENT MGMT INPAT SUBQ DAY 43444 04/14/17 Assessment/Plan - Problem List Patient Problems: All Active Problems Abscess of sigmoid colon due to diverticulitis (Acute) K57.20 Diverticulitis of sigmoid colon (Acute) K57.32 Obesity (Acute) E66.9 Perforation of sigmoid colon due to diverticulitis (Acute) K57.20 Peritonitis (acute) generalized (Acute) K65.0 - Assessment Assessment: POD#20; s/p ex lap, sigmoid colectomy, drainage of peritonitis, lysis adhesions , ROLANDO drain placement 04/14 icu status encephalopathic, confused, obtunded, reintubated and brief ACLS protocol this am. continue IVfluids +TPN tachycardia, intermittent fevers, normal WBC renal insufficiency improved, normal BUN/creat dvt prophylaxis Lovenox SQ colostomy end necrosed and sloughed, severely retracted, but functional w/ stool output..... poor candidate for revision of colostomy CT results noted open abd wound, wound vac in place, changed q 3days, wound marge, still some yellow slough. continue iv abx. sen cath stricts ins and out supportive care.... s/w family; guarded prognosis. off vasopressors. EGD 05/04 results noted by Eric/GI peptic ulcer disease, NGT trauma start TF via NGT, check residuals talked with Eric/ANDREI regarding EGD/PEG for nutritional enteric support may need tracheostomy. Coy eval? Nutritional Asmnt/Malnutr-PDOC - Dietary Evaluation Malnutrition Findings (Please click <Entered> for more info): Nutritional Asmnt/Malnutrition Start: 04/19/17 14: 21 Text: Status: Complete Freq: Document 04/19/17 14:21 GSUN (Rec: 04/19/17 14:58 [id number]) Nutritional Asmnt/Malnutrition Patient General Information Nutritional Screening Moderate Risk Screening Diagnosis Sepsis, diverticulitis, peritonitis Pertinent Medical Hx/Surgical Hx Asthma, diverticulosis Subjective Information 56 year old male frome home. Pt was restless, moving extremities during visit. 04/14 : sigmoid colectomy, end colostomy, abscess drainage, diffuse peritontis. 04/16: pt started PPN. 04/17: central line and started on TPN. Spoke to family at bedside, explained parenteral nutrition , family undersoto and has no further question at this time. Weight discrepancies noted in EMR, family does not know UBW , estimated nutritional needs based Current Diet Order/ Nutrition Support TPN D10% AA4.25% at 90ml/hr with IL20% 150ml, providing 1401.6kcal Pertinent Medications Dilaudid, Novolog, Culturelle, Magnesium Sulfate, Vancomycin , TPN, Morphine, Multivitamins , Zofran, Protonix, Nacl0.9% Pertinent Labs 04/14: triglycerides 106, total bilirubin 1.1H, glucose 116H 04/17: magnesium 2.5, phsophorus 3.2 04/19: magnesium 1.8L, phosphorus 2.4L, BUN 28H, creatinine 1.3, glucose 154H, total bilirubin 1.1H, triglycerides 238H Nutritional Hx/Data Height 1.7 m Height (Calculated Centimeters) 170.2 Current Weight (lbs) 95.254 kg Weight (Calculated Kilograms) 95.3 Weight (Calculated Grams) 82114.4 [place] Body Weight 148 Weight Status Overweight GI Symptoms Skin Integrity/Comment: [place] 14. Facial non-pitting 1+, bilateral hands pitting 1+ Estimated Nutritional Goals Calories/Kcals/Kg IBW 148/67.3kg Kcals Calculated 2019-2356kcal (30-35kcal/kg) Protein Calculated 101-135g (1.5-2g/kg) Fluid: ml Per MD Nutritional Problem 1. Problem Problem Altered GI function related to Etiology abscess and perforation of sigmoid colon due to diverticulitis aeb Signs/Symptoms: post-operative, on TPN Intervention/Recommendation Comments 1. Recommend TPN D15% AA5.5% at 100ml/hr with IL20% 150ml, providing 2400ml total volume, 2052kcal, 132g protein, meeting 100% of estimated nutritional needs. Carb load 2 .6mg/kg/min (using 210lb adm weight). 2. Monitor for possible refeeding syndrome, 04/18: phsophorus 2.1L, 04/19: magnesium 1.9. 3. Monitor triglycerides, total bilirubin, glucose, renal labs. Expected Outcomes/Goals Expected Outcomes/Goals 1. Pt to meet 100% of estimated nutritional needs on TPN.
--- NOTE | 2017-05-04 23:04 | Infectious Disease Prog Note ---
Infectious Disease Subjective - Review of Systems Service Date: 05/04/17 Events since last encounter: Endoscopy Subjective: He remains intubated and was put on ventilator support. Currently, he is unresponsive. Endoscopy was performed by Dr Reyes. Report was reviewed. Intermittent fevers. Infectious Disease Objective - Results Result Diagrams: 05/04/17 04:37 05/04/17 04:37 Recent Labs: Laboratory Last Values WBC 5.1 Th/cmm (4.8-10.8) D 05/04/17 04:37 RBC 3.54 Mil/cmm (4.30-5.70) L 05/04/17 04:37 Hgb 9.7 gm/dL (13.2-17.3) L 05/04/17 04:37 Hct 29.0 % (39.0-49.0) L 05/04/17 04:37 MCV 81.9 fl (80-99) 05/04/17 04:37 MCH 27.3 pg (26.0-30.0) 05/04/17 04:37 MCHC Differential 33.3 pg (28.0-36.0) 05/04/17 04:37 RDW 15.8 % (11.5-20.0) 05/04/17 04:37 Plt Count 366 Th/cmm (150-400) 05/04/17 04:37 MPV 7.3 fl 05/04/17 04:37 Neutrophils % 59.7 % (40.0-80.0) 05/04/17 04:37 Band Neutrophils % 4 % (0-10) 05/02/17 05:15 Lymphocytes % 19.7 % (20.0-50.0) L 05/04/17 04:37 Monocytes % 9.1 % (2.0-10.0) 05/04/17 04:37 Eosinophils % 10.7 % (0.0-5.0) H 05/04/17 04:37 Basophils % 0.8 % (0.0-2.0) 05/04/17 04:37 Neutrophils (Manual) 68 % (40-80) 05/02/17 05:15 Lymphocytes 14 % (20-50) L 05/02/17 05:15 Monocytes 8 % (2-10) 05/02/17 05:15 Eosinophils 6 % (0-5) H 05/02/17 05:15 Metamyelocytes 1 % (0-0) H 04/22/17 05:04 Platelet Estimate ADEQUATE (NORMAL) 05/02/17 05:15 Platelet Morphology NORMAL (NORMAL) 05/02/17 05:15 Anisocytosis 1+ 04/28/17 06:08 Microcytosis 1+ 05/02/17 05:15 RBC Morph Micro Appear ABNORMAL (NORMAL) 05/02/17 05:15 ESR > 140 mm/hr (0-20) H 04/20/17 07:00 PT 11.9 SECONDS (9.5-11.5) H 04/24/17 21:19 INR 1.13 (0.5-1.4) 04/24/17 21:19 PTT (Actin FS) 27.6 SECONDS (26.0-38.0) 04/24/17 21:19 Specimen Source Arterial 05/04/17 09:31 Sample Site Left Radial 05/04/17 09:31 pH 7.50 (7.35-7.45) H 05/04/17 09:31 pCO2 51.0 mmHg (35.0-45.0) H 05/04/17 09:31 pO2 95.0 mmHg (80.0-100.0) 05/04/17 09:31 HCO3 36.3 mEq/L (20.0-26.0) H 05/04/17 09:31 Base Excess 14.5 mEq/L (-3.0-3.0) H 05/04/17 09:31 O2 Saturation 98.0 % (92.0-100.0) 05/04/17 09:31 Chau Test Positive 05/04/17 09:31 Vent Rate 10 05/04/17 09:31 Inspired O2 30 05/04/17 09:31 Tidal Volume 450 05/04/17 09:31 PEEP 3 05/04/17 09:31 Pressure (ins/psv/peep) 10 05/04/17 09:31 Critical Value AC 05/04/17 09:31 Sodium 139 mEq/L (136-145) 05/04/17 04:37 Potassium 3.3 mEq/L (3.5-5.1) L 05/04/17 04:37 Chloride 98 mEq/L (98-107) 05/04/17 04:37 Carbon Dioxide 35.1 mEq/L (21.0-31.0) H 05/04/17 04:37 Anion Gap 9.2 (7.0-16.0) 05/04/17 04:37 BUN 22 mg/dL (7-25) 05/04/17 04:37 Creatinine 1.2 mg/dL (0.7-1.3) 05/04/17 04:37 Est GFR ( Amer) > 60.0 ml/min (>90) 05/04/17 04:37 Est GFR (Non-Af Amer) > 60.0 ml/min 05/04/17 04:37 BUN/Creatinine Ratio 18.3 05/04/17 04:37 Glucose 170 mg/dL (70-105) H 05/04/17 04:37 POC Glucose 189 MG/DL (70 - 105) H 05/04/17 18:43 Hemoglobin A1c % 6.7 % (4.0-6.0) H 04/22/17 05:04 Whole Bld Lactic Acid 2.31 mmol/L (0.60-1.99) H* 05/03/17 15:56 Uric Acid 3.6 mg/dL (4.4-7.6) L 04/20/17 07:00 Calcium 9.1 mg/dL (8.6-10.3) 05/04/17 04:37 Phosphorus 3.5 mg/dL (2.5-5.0) 05/04/17 04:37 Magnesium 1.9 mg/dL (1.9-2.7) 05/04/17 04:37 Total Bilirubin 0.5 mg/dL (0.3-1.0) 05/04/17 04:37 Direct Bilirubin 0.11 mg/dL (0.0-0.2) 05/02/17 05:15 AST 48 U/L (13-39) H 05/04/17 04:37 ALT 18 U/L (7-52) 05/04/17 04:37 Alkaline Phosphatase 110 U/L (34-104) H 05/04/17 04:37 Ammonia 26 umol/L (16-53) 04/30/17 04:35 Creatine Kinase 136 U/L (30-223) 04/14/17 14:55 Troponin I 0.01 ng/mL (0.01-0.05) 04/22/17 05:04 C-Reactive Protein 28.9 mg/dL (0.0-0.9) H 04/20/17 07:00 B-Natriuretic Peptide 85.5 pg/mL (5.0-100.0) 04/14/17 14:55 Total Protein 6.7 gm/dL (6.0-8.3) 05/04/17 04:37 Albumin 2.2 gm/dL (4.2-5.5) L 05/04/17 04:37 Globulin 4.5 gm/dL 05/04/17 04:37 Albumin/Globulin Ratio 0.5 (1.0-1.8) L 05/04/17 04:37 Prealbumin 9 mg/dL (10-36) L 05/01/17 04:30 Triglycerides 290 mg/dL (<150) H 05/01/17 04:30 Cholesterol 78 mg/dL (<200) 04/27/17 04:30 LDL Cholesterol Direct 38 mg/dL (75-193) L 04/14/17 14:55 HDL Cholesterol 13 mg/dL (23-92) L 04/14/17 14:55 Amylase 44 U/L (29-103) 05/03/17 04:40 Lipase 15 U/L (11-82) 04/14/17 14:55 Urine Source [place] 05/03/17 13:38 Urine Color YELLOW 05/03/17 13:38 Urine Clarity TURBID (CLEAR) 05/03/17 13:38 Urine pH 7.5 05/03/17 13:38 Ur Specific [place] 1.010 (1.005-1.030) 05/03/17 13:38 Urine Protein NEGATIVE mg/dL (NEGATIVE) 05/03/17 13:38 Urine Glucose (UA) NEGATIVE mg/dL (NEGATIVE) 05/03/17 13:38 Urine Ketones NEGATIVE mg/dL (NEGATIVE) 05/03/17 13:38 Urine Blood MODERATE (NEGATIVE) H 05/03/17 13:38 Urine Nitrate NEGATIVE (NEGATIVE) 05/03/17 13:38 Urine Bilirubin NEGATIVE (NEGATIVE) 05/03/17 13:38 Urine Urobilinogen 0.2 E.U./dL (0.2 - 1.0) 05/03/17 13:38 Ur Leukocyte Esterase TRACE (NEGATIVE) H 05/03/17 13:38 Urine RBC 50-100 /hpf (0-5) H 05/03/17 13:38 Urine WBC 6-10 /hpf (0-5) H 05/03/17 13:38 Ur Epithelial Cells FEW /lpf (FEW) 05/03/17 13:38 Amorphous Sediment MANY URATES (NONE SEEN) 04/14/17 15:05 Urine Bacteria FEW /hpf (NONE SEEN) 05/03/17 13:38 Vancomycin Trough 13.5 ug/mL (10-20) 04/19/17 19:20 Blood Type O POSITIVE 05/02/17 07:12 Antibody Screen NEGATIVE 05/02/17 07:12 Crossmatch See Detail 05/02/17 07:12 - Physical Exam Vitals and I&O: Vital Signs Temp 99.8 F 05/04/17 17:00 Pulse 123 05/04/17 22:56 Resp 29 05/04/17 19:00 BP 142/101 05/04/17 19:00 Pulse Ox 99 05/04/17 22:56 Intake & Output 05/04/17 05/04/17 05/05/17 06:59 18:59 06:59 Intake Total 2382.347 3047.924 1200 Output Total 1851 1560 Balance 133.193 8568.924 -360 Weight (lbs) 87.77 kg 87.906 kg Intake: Intake, IV Amount 096.200 3386.924 Fluconazole 200mg/100mL 100 200 mg In 100 ml @ 100 mls/hr IV Q24HR [facility] Rx#: [id number] Linezolid 600mg/300mL 600 300 300 mg In 300 ml @ 300 mls/ hr IV Q12HR [facility] Rx#: [id number] Meropenem 1 gm In Sodium 200 100 Chloride 0.9% 100 ml @ 100 mls/hr IV Q8H [facility] Rx# :[id number] Multivitamin Inj 10 ml In 2380 Dextrose 70% 1,740 ml In Amino Acids 10% 500 ml In Intralipids 20% 150 ml @ 100 mls/hr IV .Q24H [facility] Rx#:[id number] Propofol 1,000 mg In 100 282.347 167.924 ml @ Per Protocol IV TITR [facility]AN Rx#:[id number] Oral 0 TPN/PPN 1200 1200 Other 400 Output: Gastric Drainage 50 Drainage 1 10 Medial Abdomen 10 Right Lower Abdomen 1 Urine 1800 1300 Stool 250 Other: Stool Characteristics Soft Liquid Liquid Liquid Brown Brown Brown Active Medications: Current Medications Acetaminophen (Tylenol) 650 mg PO Q6H PRN PRN Reason: FEVER/PAIN Stop: 06/21/17 17:45 Last Admin: 05/03/17 09:20 Dose: 650 mg Albuterol/Ipratropium (Duoneb Neb) 3 ml HHN Q4HRT [facility] Stop: 06/15/17 14:59 Last Admin: 05/04/17 22:53 Dose: 3 ml Amiodarone HCl (Cordarone) 200 mg NG BID [facility] Stop: 06/24/17 23:14 Last Admin: 05/04/17 16:02 Dose: 200 mg Budesonide (Pulmicort) 0.5 mg HHN BIDRT [facility] Stop: 06/15/17 18:59 Last Admin: 05/04/17 18:43 Dose: 0.5 mg Chlorhexidine Gluconate (Peridex) 15 ml MM 08,1999 [facility] Stop: 06/30/17 19:59 Last Admin: 05/04/17 20:33 Dose: 15 ml Famotidine (Pepcid) 20 mg IVP Q12H PRN PRN Reason: IF PROTONIX IV UNAVAILABLE Stop: 07/03/17 08:59 Heparin Sodium (Porcine) (Heparin) 5,000 units SUBQ Q12HR [facility] Stop: 07/01/17 20:59 Last Admin: 05/04/17 20:47 Dose: 5,000 units Multivitamins/Minerals 10 ml/Dextrose/ Amino Acids/Electrolytes/ Fat Emulsion Intravenous 2,400 mls @ 100 mls/hr IV .Q24H [facility] Stop: 06/23/17 15:59 Last Admin: 05/04/17 16:03 Dose: 100 mls/hr Dextrose/Sodium Chloride (D5-0.45ns) 1,000 mls @ 40 mls/hr IV .Q24H [facility] Stop: 06/23/17 15:59 Last Admin: 05/04/17 16:18 Dose: 40 mls/hr Diltiazem HCl 125 mg/ Dextrose 125 mls @ 10 mls/hr IV TITR [facility]AN; 10 MG/HR PRN Reason: Protocol Stop: 06/24/17 12:41 Last Titration: 05/02/17 07:00 Dose: Infused Norepinephrine Bitartrate 4 mg (/ Dextrose) 254 mls @ 0 mls/hr IV TITR PRN; Protocol; 0 MCG/MIN PRN Reason: BP MAINTENANCE (PER PROTOCOL) Stop: 06/30/17 09:25 Last Titration: 05/02/17 07:00 Dose: Infused Meropenem 1 gm/ Sodium (Chloride) 100 mls @ 100 mls/hr IV Q8H [facility] Stop: 06/30/17 11:14 Last Admin: 05/04/17 18:38 Dose: 100 mls/hr Fluconazole (Diflucan) 200 mg in 100 mls @ 100 mls/hr IV Q24HR [facility] Stop: 07/01/17 12:29 Last Infusion: 05/04/17 15:51 Dose: Infused Linezolid (Zyvox) 600 mg in 300 mls @ 300 mls/hr IV Q12HR [facility] Stop: 07/01/17 20:59 Last Admin: 05/04/17 20:59 Dose: 300 mls/hr Insulin Aspart (Novolog Insulin Sliding Scale) 0 units SUBQ Q6HR [facility] PRN Reason: Protocol Stop: 06/16/17 17:59 Last Admin: 05/04/17 19:20 Dose: Not Given Lorazepam (Ativan) 1 mg IVP Q4HR PRN; Protocol PRN Reason: Agitation Stop: 06/25/17 10:40 Last Admin: 05/04/17 20:38 Dose: 1 mg Lorazepam (Ativan) 1 mg IVP Q4HR PRN; Protocol PRN Reason: Agitation Stop: 07/03/17 16:14 Metoprolol Tartrate (Lopressor) 25 mg PO BID [facility] Stop: 06/26/17 08:59 Last Admin: 05/04/17 17:07 Dose: 25 mg Miscellaneous (Probiotic Screen) 1 ea MC PRN PRN PRN Reason: PROTOCOL Stop: 06/14/17 09:39 Miscellaneous (Clinical Monitoring) 1 ea MC DAILY PRN PRN Reason: RENAL Stop: 06/15/17 12:48 Miscellaneous (Tpn Per Pharmacy) 1 ea MC PRN PRN PRN Reason: PROTOCOL Stop: 06/16/17 12:28 Miscellaneous (Vte Chemical Prophylaxis Screen/ Admission) 1 ea MC PRN PRN PRN Reason: PROTOCOL Stop: 07/01/17 14:44 Morphine Sulfate (Morphine) 2 mg IVP Q4HR PRN PRN Reason: pain Stop: 07/01/17 09:37 Last Admin: 05/03/17 00:50 Dose: 2 mg Ondansetron HCl (Zofran) 4 mg IVP Q6H PRN PRN Reason: Nausea / Vomiting Stop: 06/13/17 20:08 Last Admin: 04/25/17 21:06 Dose: 4 mg Pantoprazole Sodium (Protonix) 40 mg IVP BID [facility] Stop: 07/01/17 10:14 Last Admin: 05/04/17 16:02 Dose: 40 mg General: no acute distress, well developed, well nourished HEENT: atraumatic, normocephalic, PERRLA, EOMI Neck: supple, no thyromegaly Cardiovascular: S1S2, regular Lungs: clear to percussion, crackles Abdomen: soft, distended, drain (ROLANDO drain cloudy.), no tender Extremities: edema, no cyanosis, no clubbing Neurological: awake, alert, oriented Skin: intact - Procedures Procedures: Procedures Procedure Code Date BYPASS SIGMOID COLON TO CUTANEOUS, OPEN APPROACH [id number] 04/14/17 INSERT EMERGENCY AIRWAY 25821 04/14/17 INSERTION OF ENDOTRACHEAL AIRWAY INTO TRACHEA, VIA OPENING [id number] 04/14/17 PARTIAL REMOVAL OF COLON 84882 04/14/17 RESECTION OF SIGMOID COLON, OPEN APPROACH [id number] 04/14/17 RESPIRATORY VENTILATION, 24-96 CONSECUTIVE HOURS [id number] 04/14/17 VENT MGMT INPAT INIT DAY 65565 04/14/17 VENT MGMT INPAT SUBQ DAY 68808 04/14/17 Infectious Disease Assmt/Plan - Problem List Patient Problems: All Active Problems Abscess of sigmoid colon due to diverticulitis (Acute) K57.20 Diverticulitis of sigmoid colon (Acute) K57.32 Obesity (Acute) E66.9 Perforation of sigmoid colon due to diverticulitis (Acute) K57.20 Peritonitis (acute) generalized (Acute) K65.0 - Assessment Assessment: 1. Sepsis. febrile. 2. Diverticulitis, sigmoid diverticula to with support complicated by multiple abscesses and peritonitis. 3. Post operatively, on ventilator. 4. Peritonitis. Likely polymicrobial. 5. Asthma exacerbation. 6. History of arthritis. 7. Distended abdomen likely post operative ileus. Rule out small bowel obstruction. 8. SEKOU. Improved. 9. Post op, paralytic ileus. improved. 10. Wrist cellulitis, worse on left with destruction of bones. X ray of the left wrist suggested osteomyelitis. 11. Wound dehiscence. 12. Vent dependent respiratory failure. 13. Left leg cellulitis. Plan: Continue Zyvox iv, merrem and diflucan. Culture from ROLANDO drain. Blood c/s, sepsis w/u. lactic acid. Nutritional Asmnt/Malnutr-PDOC - Dietary Evaluation Malnutrition Findings (Please click <Entered> for more info): Nutritional Asmnt/Malnutrition Start: 04/19/17 14: 21 Text: Status: Complete Freq: Document 04/19/17 14:21 GSUN (Rec: 04/19/17 14:58 [id number]) Nutritional Asmnt/Malnutrition Patient General Information Nutritional Screening Moderate Risk Screening Diagnosis Sepsis, diverticulitis, peritonitis Pertinent Medical Hx/Surgical Hx Asthma, diverticulosis Subjective Information 56 year old male frome home. Pt was restless, moving extremities during visit. 04/14 : sigmoid colectomy, end colostomy, abscess drainage, diffuse peritontis. 04/16: pt started PPN. 04/17: central line and started on TPN. Spoke to family at bedside, explained parenteral nutrition , family undersoto and has no further question at this time. Weight discrepancies noted in EMR, family does not know UBW , estimated nutritional needs based Current Diet Order/ Nutrition Support TPN D10% AA4.25% at 90ml/hr with IL20% 150ml, providing 1401.6kcal Pertinent Medications Dilaudid, Novolog, Culturelle, Magnesium Sulfate, Vancomycin , TPN, Morphine, Multivitamins , Zofran, Protonix, Nacl0.9% Pertinent Labs 04/14: triglycerides 106, total bilirubin 1.1H, glucose 116H 04/17: magnesium 2.5, phsophorus 3.2 04/19: magnesium 1.8L, phosphorus 2.4L, BUN 28H, creatinine 1.3, glucose 154H, total bilirubin 1.1H, triglycerides 238H Nutritional Hx/Data Height 1.7 m Height (Calculated Centimeters) 170.2 Current Weight (lbs) 95.254 kg Weight (Calculated Kilograms) 95.3 Weight (Calculated Grams) 47095.4 [place] Body Weight 148 Weight Status Overweight GI Symptoms Skin Integrity/Comment: [place] 14. Facial non-pitting 1+, bilateral hands pitting 1+ Estimated Nutritional Goals Calories/Kcals/Kg IBW 148/67.3kg Kcals Calculated 2019-2356kcal (30-35kcal/kg) Protein Calculated 101-135g (1.5-2g/kg) Fluid: ml Per MD Nutritional Problem 1. Problem Problem Altered GI function related to Etiology abscess and perforation of sigmoid colon due to diverticulitis aeb Signs/Symptoms: post-operative, on TPN Intervention/Recommendation Comments 1. Recommend TPN D15% AA5.5% at 100ml/hr with IL20% 150ml, providing 2400ml total volume, 2052kcal, 132g protein, meeting 100% of estimated nutritional needs. Carb load 2 .6mg/kg/min (using 210lb adm weight). 2. Monitor for possible refeeding syndrome, 04/18: phsophorus 2.1L, 04/19: magnesium 1.9. 3. Monitor triglycerides, total bilirubin, glucose, renal labs. Expected Outcomes/Goals Expected Outcomes/Goals 1. Pt to meet 100% of estimated nutritional needs on TPN.
--- NOTE | 2017-05-04 23:15 | Progress Notes ---
DATE: 05/04/2017 PROBLEM LIST: 1.Acute respiratory failure. 2.Encephalopathy. 3.Peritonitis. 4.Obstructive sleep apnea syndrome. SYMPTOMS: Nil. Currently sedated with propofol, seemingly comfortable with SMV of 10 with 30% of oxygen. PHYSICAL EXAMINATION: VITAL SIGNS: The patient's recorded vitals: Temperature is 98.6, heart rate is in 90s, blood pressure 127/78, saturation 100%. NECK: Veins not visualized. CHEST: Shows diminished air entry with occasional rhonchi. HEART: Regular. ABDOMEN: Soft, nontender. LABORATORY DATA: The patient's white count is 5.1, hemoglobin 9.7. The patient's ABG shows significant metabolic alkalosis partially compensated by increasing pCO2 and this is on 30% of oxygen and potassium is 3.3, slight elevation of the sugar, otherwise has essentially unchanged. ASSESSMENT: The patient is clinically stable respiratory botello. PLANS AND SUGGESTION: We will go ahead and put in SMV down ____ ET tube. Currently no radiographically evidence of any lung disease. This is secondary to multiple other issues and making him to go respiratory failure and we will ____ on propofol and see how he does and go from there. JOB# [id number]
[2017-05-05] MEDS: INSULIN ASPART SLIDING SCALE 100 UNITS/ML UNIT SUBQ SCH ×4 (00:20→18:43)
[2017-05-05] MEDS: Albuterol/Ipratropium Neb 3 ML AERS HHN SCH ×6 (02:03→23:22)
[2017-05-05] MEDS: Meropenem 1 GM in Sodium Chloride 0.9% 100 ML IV SCH ×3 (03:48→20:16)
[2017-05-05 05:25] LABS: % BASOPHILS 0.7 % (0.0-2.0); % EOSINOPHILS 8.4 % (0.0-5.0); % LYMPHOCYTES 21.4 % (20.0-50.0); % MONOCYTES 10.3 % (2.0-10.0); % NEUTROPHILS 59.2 % (40.0-80.0); HEMOGLOBIN 10.3 gm/dL (13.2-17.3); MEAN CELL VOLUME 81.4 fl (80-99); MEAN CORPUSCULAR HGB CONC 33.1 pg (28.0-36.0); MEAN PLATELET VOLUME 7.1 fl; PLATELET COUNT 328 Th/cmm (150-400); RED BLOOD COUNT 3.81 Mil/cmm (4.30-5.70); RED CELL DISTRIBUTION WIDTH 15.8 % (11.5-20.0)
[2017-05-05 05:31] LABS: WHITE BLOOD COUNT 6.8 Th/cmm (4.8-10.8)
[2017-05-05 05:38] LABS: ALB/GLOB RATIO 0.5 (1.0-1.8); ALKALINE PHOSPHATASE 117 U/L (34-104); ANION GAP 8.7 (7.0-16.0); BILIRUBIN,TOTAL 0.5 mg/dL (0.3-1.0); BUN - UREA NITROGEN 23 mg/dL (7-25); BUN/CREATININE RATIO 20.9; CALCIUM SERUM 9.4 mg/dL (8.6-10.3); CARBON DIOXIDE 31.9 mEq/L (21.0-31.0); CHLORIDE 103 mEq/L (98-107); CREATININE - SERUM 1.1 mg/dL (0.7-1.3); GLUCOSE 167 mg/dL (70-105); MAGNESIUM 1.9 mg/dL (1.9-2.7); PHOSPHOROUS 3.1 mg/dL (2.5-5.0); POTASSIUM SERUM 3.6 mEq/L (3.5-5.1); SGOT 53 U/L (13-39); SGPT/ALT 21 U/L (7-52); SODIUM SERUM 140 mEq/L (136-145)
[2017-05-05] MEDS: Budesonide 0.5 Mg/2 mL Ud HHN SCH ×2 (08:02→18:58)
[2017-05-05] MEDS: Chlorhexidine Gluconate 0.12% 15mL Mouthwash MM SCH ×2 (09:00→21:00)
[2017-05-05 09:04] LABS: ABG SOURCE Arterial; ALLEN TEST YES; BE(B) 11.7 mEq/L (-3.0-3.0); HCO3 34.1 mEq/L (20.0-26.0); MECH RATE 16; pH 7.52 (7.35-7.45)
[2017-05-05 09:05] LABS: FIO2 30; MECH VT 450
[2017-05-05] MEDS: Linezolid 600mg/300mL 600 MG/300 ML BAG IV SCH (09:33)
--- NOTE | 2017-05-05 10:18 | Diagnostic Imaging Report ---
CHEST X-RAY: AP view INDICATION: Shortness of breath, respiratory failure COMPARISON: Portable chest 05/04/2017 FINDINGS: NG tube is seen with tip in the proximal stomach. ET tube is seen with tip 6 cm above the [place]. Right IJ line is stable. Improving lung aeration is seen with no focal consolidation or pleural effusions. The heart size is normal. IMPRESSION: Improved lung aeration. No focal consolidation identified NG tube terminating within the proximal stomach. Consider 5 cm advancement for optimal positioning.
--- NOTE | 2017-05-05 11:11 | General Progress Note ---
Subjective - Review of Systems Service Date: 05/05/17 Subjective: encephalopathy, obtunded, nonverbal Objective - Results Result Diagrams: 05/05/17 04:35 05/05/17 04:35 Recent Labs: Laboratory Last Values WBC 6.8 Th/cmm (4.8-10.8) D 05/05/17 04:35 RBC 3.81 Mil/cmm (4.30-5.70) L 05/05/17 04:35 Hgb 10.3 gm/dL (13.2-17.3) L 05/05/17 04:35 Hct 31.0 % (39.0-49.0) L 05/05/17 04:35 MCV 81.4 fl (80-99) 05/05/17 04:35 MCH 27.0 pg (26.0-30.0) 05/05/17 04:35 MCHC Differential 33.1 pg (28.0-36.0) 05/05/17 04:35 RDW 15.8 % (11.5-20.0) 05/05/17 04:35 Plt Count 328 Th/cmm (150-400) 05/05/17 04:35 MPV 7.1 fl 05/05/17 04:35 Neutrophils % 59.2 % (40.0-80.0) 05/05/17 04:35 Band Neutrophils % 4 % (0-10) 05/02/17 05:15 Lymphocytes % 21.4 % (20.0-50.0) 05/05/17 04:35 Monocytes % 10.3 % (2.0-10.0) H 05/05/17 04:35 Eosinophils % 8.4 % (0.0-5.0) H 05/05/17 04:35 Basophils % 0.7 % (0.0-2.0) 05/05/17 04:35 Neutrophils (Manual) 68 % (40-80) 05/02/17 05:15 Lymphocytes 14 % (20-50) L 05/02/17 05:15 Monocytes 8 % (2-10) 05/02/17 05:15 Eosinophils 6 % (0-5) H 05/02/17 05:15 Metamyelocytes 1 % (0-0) H 04/22/17 05:04 Platelet Estimate ADEQUATE (NORMAL) 05/02/17 05:15 Platelet Morphology NORMAL (NORMAL) 05/02/17 05:15 Anisocytosis 1+ 04/28/17 06:08 Microcytosis 1+ 05/02/17 05:15 RBC Morph Micro Appear ABNORMAL (NORMAL) 05/02/17 05:15 ESR > 140 mm/hr (0-20) H 04/20/17 07:00 PT 11.9 SECONDS (9.5-11.5) H 04/24/17 21:19 INR 1.13 (0.5-1.4) 04/24/17 21:19 PTT (Actin FS) 27.6 SECONDS (26.0-38.0) 04/24/17 21:19 Specimen Source Arterial 05/05/17 08:58 Sample Site Left Radial 05/05/17 08:58 pH 7.52 (7.35-7.45) H 05/05/17 08:58 pCO2 44.0 mmHg (35.0-45.0) 05/05/17 08:58 pO2 89.0 mmHg (80.0-100.0) 05/05/17 08:58 HCO3 34.1 mEq/L (20.0-26.0) H 05/05/17 08:58 Base Excess 11.7 mEq/L (-3.0-3.0) H 05/05/17 08:58 O2 Saturation 98.0 % (92.0-100.0) 05/05/17 08:58 Chau Test YES 05/05/17 08:58 Vent Rate 16 05/05/17 08:58 Inspired O2 30 05/05/17 08:58 Tidal Volume 450 05/05/17 08:58 PEEP 3 05/05/17 08:58 Pressure (ins/psv/peep) NA 05/05/17 08:58 Critical Value E.ROSEN 05/05/17 08:58 Sodium 140 mEq/L (136-145) 05/05/17 04:35 Potassium 3.6 mEq/L (3.5-5.1) 05/05/17 04:35 Chloride 103 mEq/L (98-107) 05/05/17 04:35 Carbon Dioxide 31.9 mEq/L (21.0-31.0) H 05/05/17 04:35 Anion Gap 8.7 (7.0-16.0) 05/05/17 04:35 BUN 23 mg/dL (7-25) 05/05/17 04:35 Creatinine 1.1 mg/dL (0.7-1.3) 05/05/17 04:35 Est GFR ( Amer) > 60.0 ml/min (>90) 05/05/17 04:35 Est GFR (Non-Af Amer) > 60.0 ml/min 05/05/17 04:35 BUN/Creatinine Ratio 20.9 05/05/17 04:35 Glucose 167 mg/dL (70-105) H 05/05/17 04:35 POC Glucose 153 MG/DL (70 - 105) H 05/05/17 06:28 Hemoglobin A1c % 6.7 % (4.0-6.0) H 04/22/17 05:04 Whole Bld Lactic Acid 1.99 mmol/L (0.60-1.99) 05/05/17 04:35 Uric Acid 3.6 mg/dL (4.4-7.6) L 04/20/17 07:00 Calcium 9.4 mg/dL (8.6-10.3) 05/05/17 04:35 Phosphorus 3.1 mg/dL (2.5-5.0) 05/05/17 04:35 Magnesium 1.9 mg/dL (1.9-2.7) 05/05/17 04:35 Total Bilirubin 0.5 mg/dL (0.3-1.0) 05/05/17 04:35 Direct Bilirubin 0.11 mg/dL (0.0-0.2) 05/02/17 05:15 AST 53 U/L (13-39) H 05/05/17 04:35 ALT 21 U/L (7-52) 05/05/17 04:35 Alkaline Phosphatase 117 U/L (34-104) H 05/05/17 04:35 Ammonia 26 umol/L (16-53) 04/30/17 04:35 Creatine Kinase 136 U/L (30-223) 04/14/17 14:55 Troponin I 0.01 ng/mL (0.01-0.05) 04/22/17 05:04 C-Reactive Protein 28.9 mg/dL (0.0-0.9) H 04/20/17 07:00 B-Natriuretic Peptide 85.5 pg/mL (5.0-100.0) 04/14/17 14:55 Total Protein 6.9 gm/dL (6.0-8.3) 05/05/17 04:35 Albumin 2.3 gm/dL (4.2-5.5) L 05/05/17 04:35 Globulin 4.6 gm/dL 05/05/17 04:35 Albumin/Globulin Ratio 0.5 (1.0-1.8) L 05/05/17 04:35 Prealbumin 9 mg/dL (10-36) L 05/01/17 04:30 Triglycerides 383 mg/dL (<150) H 05/05/17 04:35 Cholesterol 104 mg/dL (<200) 05/05/17 04:35 LDL Cholesterol Direct 38 mg/dL (75-193) L 04/14/17 14:55 HDL Cholesterol 13 mg/dL (23-92) L 04/14/17 14:55 Amylase 44 U/L (29-103) 05/03/17 04:40 Lipase 15 U/L (11-82) 04/14/17 14:55 Urine Source SEN PORT 05/03/17 13:38 Urine Color YELLOW 05/03/17 13:38 Urine Clarity TURBID (CLEAR) 05/03/17 13:38 Urine pH 7.5 05/03/17 13:38 Ur Specific [place] 1.010 (1.005-1.030) 05/03/17 13:38 Urine Protein NEGATIVE mg/dL (NEGATIVE) 05/03/17 13:38 Urine Glucose (UA) NEGATIVE mg/dL (NEGATIVE) 05/03/17 13:38 Urine Ketones NEGATIVE mg/dL (NEGATIVE) 05/03/17 13:38 Urine Blood MODERATE (NEGATIVE) H 05/03/17 13:38 Urine Nitrate NEGATIVE (NEGATIVE) 05/03/17 13:38 Urine Bilirubin NEGATIVE (NEGATIVE) 05/03/17 13:38 Urine Urobilinogen 0.2 E.U./dL (0.2 - 1.0) 05/03/17 13:38 Ur Leukocyte Esterase TRACE (NEGATIVE) H 05/03/17 13:38 Urine RBC 50-100 /hpf (0-5) H 05/03/17 13:38 Urine WBC 6-10 /hpf (0-5) H 05/03/17 13:38 Ur Epithelial Cells FEW /lpf (FEW) 05/03/17 13:38 Amorphous Sediment MANY URATES (NONE SEEN) 04/14/17 15:05 Urine Bacteria FEW /hpf (NONE SEEN) 05/03/17 13:38 Vancomycin Trough 13.5 ug/mL (10-20) 04/19/17 19:20 Blood Type O POSITIVE 05/02/17 07:12 Antibody Screen NEGATIVE 05/02/17 07:12 Crossmatch See Detail 05/02/17 07:12 - Physical Exam Vitals and I&O: Vital Signs Temp 100.1 F 05/05/17 06:00 Pulse 101 05/05/17 09:40 Resp 26 05/05/17 07:00 BP 158/98 05/05/17 09:24 Pulse Ox 99 05/05/17 09:40 Intake & Output 05/04/17 05/05/17 05/05/17 18:59 06:59 18:59 Intake Total 3047.924 2945 Output Total 3710 Balance 3047.924 -765 Weight (lbs) 87.906 kg Intake: Intake, IV Amount 3047.924 400 Fluconazole 200mg/100mL 100 200 mg In 100 ml @ 100 mls/hr IV Q24HR [facility] Rx#: [id number] Linezolid 600mg/300mL 600 300 300 mg In 300 ml @ 300 mls/ hr IV Q12HR [facility] Rx#: [id number] Meropenem 1 gm In Sodium 100 100 Chloride 0.9% 100 ml @ 100 mls/hr IV Q8H [facility] Rx# :[id number] Multivitamin Inj 10 ml In 2380 Dextrose 70% 1,740 ml In Amino Acids 10% 500 ml In Intralipids 20% 150 ml @ 100 mls/hr IV .Q24H [facility] Rx#:[id number] Propofol 1,000 mg In 100 167.924 ml @ Per Protocol IV TITR ARIAN Rx#:[id number] Tube Feeding 145 TPN/PPN 2400 Output: Gastric Drainage 300 Drainage 10 Medial Abdomen 10 Urine 2850 Stool 550 Other: Stool Characteristics Liquid Liquid Brown Brown Active Medications: Current Medications Acetaminophen (Tylenol) 650 mg PO Q6H PRN PRN Reason: FEVER/PAIN Stop: 06/21/17 17:45 Last Admin: 05/05/17 00:20 Dose: 650 mg Albuterol/Ipratropium (Duoneb Neb) 3 ml HHN Q4HRT [facility] Stop: 06/15/17 14:59 Last Admin: 05/05/17 08:02 Dose: 3 ml Amiodarone HCl (Cordarone) 200 mg NG BID [facility] Stop: 06/24/17 23:14 Last Admin: 05/05/17 09:31 Dose: 200 mg Budesonide (Pulmicort) 0.5 mg HHN BIDRT [facility] Stop: 06/15/17 18:59 Last Admin: 05/05/17 08:02 Dose: 0.5 mg Chlorhexidine Gluconate (Peridex) 15 ml MM 08,1999 [facility] Stop: 06/30/17 19:59 Last Admin: 05/04/17 20:33 Dose: 15 ml Famotidine (Pepcid) 20 mg IVP Q12H PRN PRN Reason: IF PROTONIX IV UNAVAILABLE Stop: 07/03/17 08:59 Heparin Sodium (Porcine) (Heparin) 5,000 units SUBQ Q12HR [facility] Stop: 07/01/17 20:59 Last Admin: 05/05/17 09:27 Dose: 5,000 units Multivitamins/Minerals 10 ml/Dextrose/ Amino Acids/Electrolytes/ Fat Emulsion Intravenous 2,400 mls @ 100 mls/hr IV .Q24H [facility] Stop: 06/23/17 15:59 Last Admin: 05/04/17 16:03 Dose: 100 mls/hr Dextrose/Sodium Chloride (D5-0.45ns) 1,000 mls @ 40 mls/hr IV .Q24H [facility] Stop: 06/23/17 15:59 Last Admin: 05/04/17 16:18 Dose: 40 mls/hr Diltiazem HCl 125 mg/ Dextrose 125 mls @ 10 mls/hr IV TITR [facility]AN; 10 MG/HR PRN Reason: Protocol Stop: 06/24/17 12:41 Last Titration: 05/02/17 07:00 Dose: Infused Norepinephrine Bitartrate 4 mg (/ Dextrose) 254 mls @ 0 mls/hr IV TITR PRN; Protocol; 0 MCG/MIN PRN Reason: BP MAINTENANCE (PER PROTOCOL) Stop: 06/30/17 09:25 Last Titration: 05/02/17 07:00 Dose: Infused Meropenem 1 gm/ Sodium (Chloride) 100 mls @ 100 mls/hr IV Q8H [facility] Stop: 06/30/17 11:14 Last Admin: 05/05/17 03:48 Dose: 100 mls/hr Fluconazole (Diflucan) 200 mg in 100 mls @ 100 mls/hr IV Q24HR [facility] Stop: 07/01/17 12:29 Last Infusion: 05/04/17 15:51 Dose: Infused Linezolid (Zyvox) 600 mg in 300 mls @ 300 mls/hr IV Q12HR [facility] Stop: 07/01/17 20:59 Last Admin: 05/05/17 09:33 Dose: 300 mls/hr Insulin Aspart (Novolog Insulin Sliding Scale) 0 units SUBQ Q6HR [facility] PRN Reason: Protocol Stop: 06/16/17 17:59 Last Admin: 05/05/17 06:57 Dose: 2 units Lorazepam (Ativan) 1 mg IVP Q4HR PRN; Protocol PRN Reason: Agitation Stop: 06/25/17 10:40 Last Admin: 05/05/17 06:57 Dose: 1 mg Lorazepam (Ativan) 1 mg IVP Q4HR PRN; Protocol PRN Reason: Agitation Stop: 07/03/17 16:14 Metoprolol Tartrate (Lopressor) 25 mg PO BID [facility] Stop: 06/26/17 08:59 Last Admin: 05/05/17 09:24 Dose: 25 mg Miscellaneous (Probiotic Screen) 1 ea PRN PRN PRN Reason: PROTOCOL Stop: 06/14/17 09:39 Miscellaneous (Clinical Monitoring) 1 ea MC DAILY PRN PRN Reason: RENAL Stop: 06/15/17 12:48 Miscellaneous (Tpn Per Pharmacy) 1 ea PRN PRN PRN Reason: PROTOCOL Stop: 06/16/17 12:28 Miscellaneous (Vte Chemical Prophylaxis Screen/ Admission) 1 ea PRN PRN PRN Reason: PROTOCOL Stop: 07/01/17 14:44 Morphine Sulfate (Morphine) 2 mg IVP Q4HR PRN PRN Reason: pain Stop: 07/01/17 09:37 Last Admin: 05/03/17 00:50 Dose: 2 mg Ondansetron HCl (Zofran) 4 mg IVP Q6H PRN PRN Reason: Nausea / Vomiting Stop: 06/13/17 20:08 Last Admin: 04/25/17 21:06 Dose: 4 mg Pantoprazole Sodium (Protonix) 40 mg IVP BID [facility] Stop: 07/01/17 10:14 Last Admin: 05/05/17 09:24 Dose: 40 mg General: Mild distress HEENT: Atraumatic, PERRLA, EOMI, Mucous membr. moist/pink, Other (oral endotracheal tube,NG tube+) Neck: Supple, +2 carotid pulse wo bruit Cardiovascular: Regular rate, Normal S1, Normal S2 Lungs: Other (diffuse rhonchi.) Abdomen: Soft, Other ( wound VAC anterior open abdominal wall wound. L colostomy retracted but still functional w/ stool output.) Extremities: Other (no edema and cyanosis.) Neurological: Reflexes 2+, Other (Patient is intubated and sedated) Psych/Mental Status: Other (Sedated) Other physical findings: colostomy functional, retracted mucosa ETT on vent, NGT to suction - Procedures Procedures: Procedures Procedure Code Date BYPASS SIGMOID COLON TO CUTANEOUS, OPEN APPROACH [id number] 04/14/17 INSERT EMERGENCY AIRWAY 11486 04/14/17 INSERTION OF ENDOTRACHEAL AIRWAY INTO TRACHEA, VIA OPENING [id number] 04/14/17 PARTIAL REMOVAL OF COLON 06974 04/14/17 RESECTION OF SIGMOID COLON, OPEN APPROACH [id number] 04/14/17 RESPIRATORY VENTILATION, 24-96 CONSECUTIVE HOURS [id number] 04/14/17 VENT MGMT INPAT INIT DAY 19822 04/14/17 VENT MGMT INPAT SUBQ DAY 60549 04/14/17 Assessment/Plan - Problem List Patient Problems: All Active Problems Abscess of sigmoid colon due to diverticulitis (Acute) K57.20 Diverticulitis of sigmoid colon (Acute) K57.32 Obesity (Acute) E66.9 Perforation of sigmoid colon due to diverticulitis (Acute) K57.20 Peritonitis (acute) generalized (Acute) K65.0 - Assessment Assessment: POD#21; s/p ex lap, sigmoid colectomy, drainage of peritonitis, lysis adhesions , ROLANDO drain placement 04/14 icu status encephalopathic, confused, obtunded, intubated. continue IVfluids +TPN tachycardia, intermittent fevers, normal WBC renal insufficiency improved, normal BUN/creat dvt prophylaxis Lovenox SQ colostomy end necrosed and sloughed, severely retracted, but functional w/ stool output..... poor candidate for revision of colostomy CT results noted open abd wound, wound vac in place, changed q 3days, wound marge, still some yellow slough. continue iv abx. sen cath stricts ins and out supportive care.... s/w family; guarded prognosis. off vasopressors. EGD 05/04 results noted by Reyes/GI peptic ulcer disease, NGT trauma started TF via NGT, but did not tolerate, vomited. talked with Reyes/GI regarding EGD/PEG for nutritional enteric support may need tracheostomy. Huma eval? Nutritional Asmnt/Malnutr-PDOC - Dietary Evaluation Malnutrition Findings (Please click <Entered> for more info): Nutritional Asmnt/Malnutrition Start: 04/19/17 14: 21 Text: Status: Complete Freq: Document 04/19/17 14:21 GSUN (Rec: 04/19/17 14:58 [id number]) Nutritional Asmnt/Malnutrition Patient General Information Nutritional Screening Moderate Risk Screening Diagnosis Sepsis, diverticulitis, peritonitis Pertinent Medical Hx/Surgical Hx Asthma, diverticulosis Subjective Information 56 year old male frome home. Pt was restless, moving extremities during visit. 04/14 : sigmoid colectomy, end colostomy, abscess drainage, diffuse peritontis. 04/16: pt started PPN. 04/17: central line and started on TPN. Spoke to family at bedside, explained parenteral nutrition , family undersoto and has no further question at this time. Weight discrepancies noted in EMR, family does not know UBW , estimated nutritional needs based Current Diet Order/ Nutrition Support TPN D10% AA4.25% at 90ml/hr with IL20% 150ml, providing 1401.6kcal Pertinent Medications Dilaudid, Novolog, Culturelle, Magnesium Sulfate, Vancomycin , TPN, Morphine, Multivitamins , Zofran, Protonix, Nacl0.9% Pertinent Labs 04/14: triglycerides 106, total bilirubin 1.1H, glucose 116H 04/17: magnesium 2.5, phsophorus 3.2 04/19: magnesium 1.8L, phosphorus 2.4L, BUN 28H, creatinine 1.3, glucose 154H, total bilirubin 1.1H, triglycerides 238H Nutritional Hx/Data Height 1.7 m Height (Calculated Centimeters) 170.2 Current Weight (lbs) 95.254 kg Weight (Calculated Kilograms) 95.3 Weight (Calculated Grams) 56809.4 [place] Body Weight 148 Weight Status Overweight GI Symptoms Skin Integrity/Comment: [place] 14. Facial non-pitting 1+, bilateral hands pitting 1+ Estimated Nutritional Goals Calories/Kcals/Kg IBW 148/67.3kg Kcals Calculated 2018-2356kcal (30-35kcal/kg) Protein Calculated 101-135g (1.5-2g/kg) Fluid: ml Per MD Nutritional Problem 1. Problem Problem Altered GI function related to Etiology abscess and perforation of sigmoid colon due to diverticulitis aeb Signs/Symptoms: post-operative, on TPN Intervention/Recommendation Comments 1. Recommend TPN D15% AA5.5% at 100ml/hr with IL20% 150ml, providing 2400ml total volume, 2052kcal, 132g protein, meeting 100% of estimated nutritional needs. Carb load 2 .6mg/kg/min (using 210lb adm weight). 2. Monitor for possible refeeding syndrome, 04/18: phsophorus 2.1L, 04/19: magnesium 1.9. 3. Monitor triglycerides, total bilirubin, glucose, renal labs. Expected Outcomes/Goals Expected Outcomes/Goals 1. Pt to meet 100% of estimated nutritional needs on TPN.
--- NOTE | 2017-05-05 11:56 | Pathology Report ---
- Pathology SPECIMEN #: [id number] PHYSICIAN: Ugo Granado SURGEON: Dr. Sherlyn Reyes SPECIMEN COLLECTION DATE: 05/04/2017 SPECIMEN DESCRIPTION(S): GE junction biopsy GROSS DESCRIPTION: Received in formalin are 2 slade soft tissue fragments ranging from 0.1-0.2 cm in greatest dimension. Totally submitted in one cassette. MICROSCOPIC DESCRIPTION: The histologic sections show glandular mucosa with areas of mucosal ulceration and chronic inflammation consisting of lymphocytes and plasma cells. The PAS stain shows no evidence for fungal organisms. The Alcian blue stain shows no significant abnormalities. There is no evidence for atypia. DIAGNOSIS: Ulcerated esophago-gastric mucosa showing chronic inflammation (GE junction biopsy). Signed, John East M.D. [id number]
[2017-05-05] MEDS: Fluconazole 200mg/100mL 200 MG/100 ML BAG IV SCH (12:27)
--- NOTE | 2017-05-05 14:00 | Infectious Disease Prog Note ---
Infectious Disease Subjective - Review of Systems Service Date: 05/05/17 Subjective: No new change. Intermittent fevers. Infectious Disease Objective - Results Result Diagrams: 05/05/17 04:35 05/05/17 04:35 Recent Labs: Laboratory Last Values WBC 6.8 Th/cmm (4.8-10.8) D 05/05/17 04:35 RBC 3.81 Mil/cmm (4.30-5.70) L 05/05/17 04:35 Hgb 10.3 gm/dL (13.2-17.3) L 05/05/17 04:35 Hct 31.0 % (39.0-49.0) L 05/05/17 04:35 MCV 81.4 fl (80-99) 05/05/17 04:35 MCH 27.0 pg (26.0-30.0) 05/05/17 04:35 MCHC Differential 33.1 pg (28.0-36.0) 05/05/17 04:35 RDW 15.8 % (11.5-20.0) 05/05/17 04:35 Plt Count 328 Th/cmm (150-400) 05/05/17 04:35 MPV 7.1 fl 05/05/17 04:35 Neutrophils % 59.2 % (40.0-80.0) 05/05/17 04:35 Band Neutrophils % 4 % (0-10) 05/02/17 05:15 Lymphocytes % 21.4 % (20.0-50.0) 05/05/17 04:35 Monocytes % 10.3 % (2.0-10.0) H 05/05/17 04:35 Eosinophils % 8.4 % (0.0-5.0) H 05/05/17 04:35 Basophils % 0.7 % (0.0-2.0) 05/05/17 04:35 Neutrophils (Manual) 68 % (40-80) 05/02/17 05:15 Lymphocytes 14 % (20-50) L 05/02/17 05:15 Monocytes 8 % (2-10) 05/02/17 05:15 Eosinophils 6 % (0-5) H 05/02/17 05:15 Metamyelocytes 1 % (0-0) H 04/22/17 05:04 Platelet Estimate ADEQUATE (NORMAL) 05/02/17 05:15 Platelet Morphology NORMAL (NORMAL) 05/02/17 05:15 Anisocytosis 1+ 04/28/17 06:08 Microcytosis 1+ 05/02/17 05:15 RBC Morph Micro Appear ABNORMAL (NORMAL) 05/02/17 05:15 ESR > 140 mm/hr (0-20) H 04/20/17 07:00 PT 11.9 SECONDS (9.5-11.5) H 04/24/17 21:19 INR 1.13 (0.5-1.4) 04/24/17 21:19 PTT (Actin FS) 27.6 SECONDS (26.0-38.0) 04/24/17 21:19 Specimen Source Arterial 05/05/17 08:58 Sample Site Left Radial 05/05/17 08:58 pH 7.52 (7.35-7.45) H 05/05/17 08:58 pCO2 44.0 mmHg (35.0-45.0) 05/05/17 08:58 pO2 89.0 mmHg (80.0-100.0) 05/05/17 08:58 HCO3 34.1 mEq/L (20.0-26.0) H 05/05/17 08:58 Base Excess 11.7 mEq/L (-3.0-3.0) H 05/05/17 08:58 O2 Saturation 98.0 % (92.0-100.0) 05/05/17 08:58 Chau Test YES 05/05/17 08:58 Vent Rate 16 05/05/17 08:58 Inspired O2 30 05/05/17 08:58 Tidal Volume 450 05/05/17 08:58 PEEP 3 05/05/17 08:58 Pressure (ins/psv/peep) NA 05/05/17 08:58 Critical Value E.ROSEN 05/05/17 08:58 Sodium 140 mEq/L (136-145) 05/05/17 04:35 Potassium 3.6 mEq/L (3.5-5.1) 05/05/17 04:35 Chloride 103 mEq/L (98-107) 05/05/17 04:35 Carbon Dioxide 31.9 mEq/L (21.0-31.0) H 05/05/17 04:35 Anion Gap 8.7 (7.0-16.0) 05/05/17 04:35 BUN 23 mg/dL (7-25) 05/05/17 04:35 Creatinine 1.1 mg/dL (0.7-1.3) 05/05/17 04:35 Est GFR ( Amer) > 60.0 ml/min (>90) 05/05/17 04:35 Est GFR (Non-Af Amer) > 60.0 ml/min 05/05/17 04:35 BUN/Creatinine Ratio 20.9 05/05/17 04:35 Glucose 167 mg/dL (70-105) H 05/05/17 04:35 POC Glucose 161 MG/DL (70 - 105) H 05/05/17 12:57 Hemoglobin A1c % 6.7 % (4.0-6.0) H 04/22/17 05:04 Whole Bld Lactic Acid 1.99 mmol/L (0.60-1.99) 05/05/17 04:35 Uric Acid 3.6 mg/dL (4.4-7.6) L 04/20/17 07:00 Calcium 9.4 mg/dL (8.6-10.3) 05/05/17 04:35 Phosphorus 3.1 mg/dL (2.5-5.0) 05/05/17 04:35 Magnesium 1.9 mg/dL (1.9-2.7) 05/05/17 04:35 Total Bilirubin 0.5 mg/dL (0.3-1.0) 05/05/17 04:35 Direct Bilirubin 0.11 mg/dL (0.0-0.2) 05/02/17 05:15 AST 53 U/L (13-39) H 05/05/17 04:35 ALT 21 U/L (7-52) 05/05/17 04:35 Alkaline Phosphatase 117 U/L (34-104) H 05/05/17 04:35 Ammonia 26 umol/L (16-53) 04/30/17 04:35 Creatine Kinase 136 U/L (30-223) 04/14/17 14:55 Troponin I 0.01 ng/mL (0.01-0.05) 04/22/17 05:04 C-Reactive Protein 28.9 mg/dL (0.0-0.9) H 04/20/17 07:00 B-Natriuretic Peptide 85.5 pg/mL (5.0-100.0) 04/14/17 14:55 Total Protein 6.9 gm/dL (6.0-8.3) 05/05/17 04:35 Albumin 2.3 gm/dL (4.2-5.5) L 05/05/17 04:35 Globulin 4.6 gm/dL 05/05/17 04:35 Albumin/Globulin Ratio 0.5 (1.0-1.8) L 05/05/17 04:35 Prealbumin 9 mg/dL (10-36) L 05/01/17 04:30 Triglycerides 383 mg/dL (<150) H 05/05/17 04:35 Cholesterol 104 mg/dL (<200) 05/05/17 04:35 LDL Cholesterol Direct 38 mg/dL (75-193) L 04/14/17 14:55 HDL Cholesterol 13 mg/dL (23-92) L 04/14/17 14:55 Amylase 44 U/L (29-103) 05/03/17 04:40 Lipase 15 U/L (11-82) 04/14/17 14:55 Urine Source [place] 05/03/17 13:38 Urine Color YELLOW 05/03/17 13:38 Urine Clarity TURBID (CLEAR) 05/03/17 13:38 Urine pH 7.5 05/03/17 13:38 Ur Specific [place] 1.010 (1.005-1.030) 05/03/17 13:38 Urine Protein NEGATIVE mg/dL (NEGATIVE) 05/03/17 13:38 Urine Glucose (UA) NEGATIVE mg/dL (NEGATIVE) 05/03/17 13:38 Urine Ketones NEGATIVE mg/dL (NEGATIVE) 05/03/17 13:38 Urine Blood MODERATE (NEGATIVE) H 05/03/17 13:38 Urine Nitrate NEGATIVE (NEGATIVE) 05/03/17 13:38 Urine Bilirubin NEGATIVE (NEGATIVE) 05/03/17 13:38 Urine Urobilinogen 0.2 E.U./dL (0.2 - 1.0) 05/03/17 13:38 Ur Leukocyte Esterase TRACE (NEGATIVE) H 05/03/17 13:38 Urine RBC 50-100 /hpf (0-5) H 05/03/17 13:38 Urine WBC 6-10 /hpf (0-5) H 05/03/17 13:38 Ur Epithelial Cells FEW /lpf (FEW) 05/03/17 13:38 Amorphous Sediment MANY URATES (NONE SEEN) 04/14/17 15:05 Urine Bacteria FEW /hpf (NONE SEEN) 05/03/17 13:38 Vancomycin Trough 13.5 ug/mL (10-20) 04/19/17 19:20 Blood Type O POSITIVE 05/02/17 07:12 Antibody Screen NEGATIVE 05/02/17 07:12 Crossmatch See Detail 05/02/17 07:12 - Physical Exam Vitals and I&O: Vital Signs Temp 99.2 F 05/05/17 12:00 Pulse 118 05/05/17 12:30 Resp 27 05/05/17 12:00 BP 142/85 05/05/17 12:00 Pulse Ox 100 05/05/17 12:30 Intake & Output 05/04/17 05/05/17 05/05/17 18:59 06:59 18:59 Intake Total 3047.924 3045 Output Total 3710 Balance 3047.924 -665 Weight (lbs) 87.906 kg Intake: Intake, IV Amount 3047.924 500 Fluconazole 200mg/100mL 100 200 mg In 100 ml @ 100 mls/hr IV Q24HR [facility] Rx#: [id number] Linezolid 600mg/300mL 600 300 300 mg In 300 ml @ 300 mls/ hr IV Q12HR [facility] Rx#: [id number] Meropenem 1 gm In Sodium 100 200 Chloride 0.9% 100 ml @ 100 mls/hr IV Q8H [facility] Rx# :[id number] Multivitamin Inj 10 ml In 2380 Dextrose 70% 1,740 ml In Amino Acids 10% 500 ml In Intralipids 20% 150 ml @ 100 mls/hr IV .Q24H [facility] Rx#:[id number] Propofol 1,000 mg In 100 167.924 ml @ Per Protocol IV TITR [facility] Rx#:[id number] Tube Feeding 145 TPN/PPN 2400 Output: Gastric Drainage 300 Drainage 10 Medial Abdomen 10 Urine 2850 Stool 550 Other: Stool Characteristics Liquid Liquid Liquid Brown Brown Brown Active Medications: Current Medications Acetaminophen (Tylenol) 650 mg PO Q6H PRN PRN Reason: FEVER/PAIN Stop: 06/21/17 17:45 Last Admin: 05/05/17 00:20 Dose: 650 mg Albuterol/Ipratropium (Duoneb Neb) 3 ml HHN Q4HRT [facility] Stop: 06/15/17 14:59 Last Admin: 05/05/17 12:30 Dose: 3 ml Amiodarone HCl (Cordarone) 200 mg NG BID [facility] Stop: 06/24/17 23:14 Last Admin: 05/05/17 09:31 Dose: 200 mg Budesonide (Pulmicort) 0.5 mg HHN BIDRT [facility] Stop: 06/15/17 18:59 Last Admin: 05/05/17 08:02 Dose: 0.5 mg Chlorhexidine Gluconate (Peridex) 15 ml MM 08,1999 [facility] Stop: 06/30/17 19:59 Last Admin: 05/05/17 09:00 Dose: 15 ml Heparin Sodium (Porcine) (Heparin) 5,000 units SUBQ Q12HR [facility] Stop: 07/01/17 20:59 Last Admin: 05/05/17 09:27 Dose: 5,000 units Multivitamins/Minerals 10 ml/Dextrose/ Amino Acids/Electrolytes/ Fat Emulsion Intravenous 2,400 mls @ 100 mls/hr IV .Q24H [facility] Stop: 06/23/17 15:59 Last Admin: 05/04/17 16:03 Dose: 100 mls/hr Dextrose/Sodium Chloride (D5-0.45ns) 1,000 mls @ 40 mls/hr IV .Q24H [facility] Stop: 06/23/17 15:59 Last Admin: 05/04/17 16:18 Dose: 40 mls/hr Diltiazem HCl 125 mg/ Dextrose 125 mls @ 10 mls/hr IV TITR [facility]; 10 MG/HR PRN Reason: Protocol Stop: 06/24/17 12:41 Last Titration: 05/02/17 07:00 Dose: Infused Norepinephrine Bitartrate 4 mg (/ Dextrose) 254 mls @ 0 mls/hr IV TITR PRN; Protocol; 0 MCG/MIN PRN Reason: BP MAINTENANCE (PER PROTOCOL) Stop: 06/30/17 09:25 Last Titration: 05/02/17 07:00 Dose: Infused Meropenem 1 gm/ Sodium (Chloride) 100 mls @ 100 mls/hr IV Q8H [facility] Stop: 06/30/17 11:14 Last Admin: 05/05/17 12:26 Dose: 100 mls/hr Fluconazole (Diflucan) 200 mg in 100 mls @ 100 mls/hr IV Q24HR [facility] Stop: 07/01/17 12:29 Last Admin: 05/05/17 12:27 Dose: 100 mls/hr Linezolid (Zyvox) 600 mg in 300 mls @ 300 mls/hr IV Q12HR [facility] Stop: 07/01/17 20:59 Last Admin: 05/05/17 09:33 Dose: 300 mls/hr Insulin Aspart (Novolog Insulin Sliding Scale) 0 units SUBQ Q6HR [facility] PRN Reason: Protocol Stop: 06/16/17 17:59 Last Admin: 05/05/17 13:00 Dose: 2 units Lorazepam (Ativan) 1 mg IVP Q4HR PRN; Protocol PRN Reason: Agitation Stop: 06/25/17 10:40 Last Admin: 05/05/17 06:57 Dose: 1 mg Lorazepam (Ativan) 1 mg IVP Q4HR PRN; Protocol PRN Reason: Agitation Stop: 07/03/17 16:14 Metoclopramide HCl (Reglan) 5 mg IVP Q8HR [facility] Stop: 07/04/17 12:59 Metoprolol Tartrate (Lopressor) 25 mg PO BID [facility] Stop: 06/26/17 08:59 Last Admin: 05/05/17 09:24 Dose: 25 mg Mineral Oil (Mineral Oil 30 Ml) 30 ml NG DAILY [facility] Stop: 07/04/17 12:29 Miscellaneous (Probiotic Screen) 1 ea MC PRN PRN PRN Reason: PROTOCOL Stop: 06/14/17 09:39 Miscellaneous (Clinical Monitoring) 1 ea MC DAILY PRN PRN Reason: RENAL Stop: 06/15/17 12:48 Miscellaneous (Tpn Per Pharmacy) 1 ea MC PRN PRN PRN Reason: PROTOCOL Stop: 06/16/17 12:28 Miscellaneous (Vte Chemical Prophylaxis Screen/ Admission) 1 ea MC PRN PRN PRN Reason: PROTOCOL Stop: 07/01/17 14:44 Morphine Sulfate (Morphine) 2 mg IVP Q4HR PRN PRN Reason: pain Stop: 07/01/17 09:37 Last Admin: 05/03/17 00:50 Dose: 2 mg Ondansetron HCl (Zofran) 4 mg IVP Q6H PRN PRN Reason: Nausea / Vomiting Stop: 06/13/17 20:08 Last Admin: 04/25/17 21:06 Dose: 4 mg Pantoprazole Sodium (Protonix) 40 mg IVP BID [facility] Stop: 07/01/17 10:14 Last Admin: 05/05/17 09:24 Dose: 40 mg General: no acute distress, well developed, well nourished HEENT: atraumatic, normocephalic, PERRLA, EOMI Neck: supple, no thyromegaly, no rigid Cardiovascular: S1S2, regular Lungs: clear to auscultation bilaterally, clear to percussion Abdomen: soft, other (colostomy), no tender, no distended, no mass Extremities: edema, no cyanosis, no clubbing Neurological: no awake, no alert, no oriented Skin: other (erythema of the left leg.) - Procedures Procedures: Procedures Procedure Code Date BYPASS SIGMOID COLON TO CUTANEOUS, OPEN APPROACH [id number] 04/14/17 INSERT EMERGENCY AIRWAY 39744 04/14/17 INSERTION OF ENDOTRACHEAL AIRWAY INTO TRACHEA, VIA OPENING [id number] 04/14/17 PARTIAL REMOVAL OF COLON 30121 04/14/17 RESECTION OF SIGMOID COLON, OPEN APPROACH [id number] 04/14/17 RESPIRATORY VENTILATION, 24-96 CONSECUTIVE HOURS [id number] 04/14/17 VENT MGMT INPAT INIT DAY 78241 04/14/17 VENT MGMT INPAT SUBQ DAY 89367 04/14/17 Infectious Disease Assmt/Plan - Problem List Patient Problems: All Active Problems Abscess of sigmoid colon due to diverticulitis (Acute) K57.20 Diverticulitis of sigmoid colon (Acute) K57.32 Obesity (Acute) E66.9 Perforation of sigmoid colon due to diverticulitis (Acute) K57.20 Peritonitis (acute) generalized (Acute) K65.0 - Assessment Assessment: 1. Sepsis. febrile. 2. Diverticulitis, sigmoid diverticula to with support complicated by multiple abscesses and peritonitis. treated with expl lap. lactic asid WNL. 3. Post operatively, on ventilator. 4. Peritonitis. Likely polymicrobial. 5. Asthma exacerbation. 6. History of arthritis. 7. Distended abdomen likely post operative ileus. Rule out small bowel obstruction. 8. SEKOU. Improved. 9. Post op, paralytic ileus. improved. 10. Wrist cellulitis, worse on left with destruction of bones. X ray of the left wrist suggested osteomyelitis. 11. Wound dehiscence. 12. Vent dependent respiratory failure. 13. Left leg cellulitis. 14. Pneumonia Plan: Continue Zyvox iv, merrem and diflucan. Blood c/s, sepsis w/u. Check procalcitonin. DW INF Control depart. Nutritional Asmnt/Malnutr-PDOC - Dietary Evaluation Malnutrition Findings (Please click <Entered> for more info): Nutritional Asmnt/Malnutrition Start: 04/19/17 14: 21 Text: Status: Complete Freq: Document 04/19/17 14:21 GSUN (Rec: 04/19/17 14:58 [id number]) Nutritional Asmnt/Malnutrition Patient General Information Nutritional Screening Moderate Risk Screening Diagnosis Sepsis, diverticulitis, peritonitis Pertinent Medical Hx/Surgical Hx Asthma, diverticulosis Subjective Information 56 year old male frome home. Pt was restless, moving extremities during visit. 04/14 : sigmoid colectomy, end colostomy, abscess drainage, diffuse peritontis. 04/16: pt started PPN. 04/17: central line and started on TPN. Spoke to family at bedside, explained parenteral nutrition , family undersoto and has no further question at this time. Weight discrepancies noted in EMR, family does not know UBW , estimated nutritional needs based Current Diet Order/ Nutrition Support TPN D10% AA4.25% at 90ml/hr with IL20% 150ml, providing 1401.6kcal Pertinent Medications Dilaudid, Novolog, Culturelle, Magnesium Sulfate, Vancomycin , TPN, Morphine, Multivitamins , Zofran, Protonix, Nacl0.9% Pertinent Labs 04/14: triglycerides 106, total bilirubin 1.1H, glucose 116H 04/17: magnesium 2.5, phsophorus 3.2 04/19: magnesium 1.8L, phosphorus 2.4L, BUN 28H, creatinine 1.3, glucose 154H, total bilirubin 1.1H, triglycerides 238H Nutritional Hx/Data Height 1.7 m Height (Calculated Centimeters) 170.2 Current Weight (lbs) 95.254 kg Weight (Calculated Kilograms) 95.3 Weight (Calculated Grams) 02282.4 [place] Body Weight 148 Weight Status Overweight GI Symptoms Skin Integrity/Comment: [place] 14. Facial non-pitting 1+, bilateral hands pitting 1+ Estimated Nutritional Goals Calories/Kcals/Kg IBW 148/67.3kg Kcals Calculated 2019-2356kcal (30-35kcal/kg) Protein Calculated 101-135g (1.5-2g/kg) Fluid: ml Per MD Nutritional Problem 1. Problem Problem Altered GI function related to Etiology abscess and perforation of sigmoid colon due to diverticulitis aeb Signs/Symptoms: post-operative, on TPN Intervention/Recommendation Comments 1. Recommend TPN D15% AA5.5% at 100ml/hr with IL20% 150ml, providing 2400ml total volume, 2052kcal, 132g protein, meeting 100% of estimated nutritional needs. Carb load 2 .6mg/kg/min (using 210lb adm weight). 2. Monitor for possible refeeding syndrome, 04/18: phsophorus 2.1L, 04/19: magnesium 1.9. 3. Monitor triglycerides, total bilirubin, glucose, renal labs. Expected Outcomes/Goals Expected Outcomes/Goals 1. Pt to meet 100% of estimated nutritional needs on TPN.
[2017-05-05] MEDS: Metoclopramide 5 mg/mL 2mL Vial IVP SCH ×2 (15:25→20:56)
--- NOTE | 2017-05-05 16:06 | Infectious Disease Prog Note ---
Infectious Disease Subjective - Review of Systems Service Date: 05/05/17 Subjective: No new change. Intermittent fevers. Intubated orally, on the ventilator support. Infectious Disease Objective - Results Result Diagrams: 05/05/17 04:35 05/05/17 04:35 Recent Labs: Laboratory Last Values WBC 6.8 Th/cmm (4.8-10.8) D 05/05/17 04:35 RBC 3.81 Mil/cmm (4.30-5.70) L 05/05/17 04:35 Hgb 10.3 gm/dL (13.2-17.3) L 05/05/17 04:35 Hct 31.0 % (39.0-49.0) L 05/05/17 04:35 MCV 81.4 fl (80-99) 05/05/17 04:35 MCH 27.0 pg (26.0-30.0) 05/05/17 04:35 MCHC Differential 33.1 pg (28.0-36.0) 05/05/17 04:35 RDW 15.8 % (11.5-20.0) 05/05/17 04:35 Plt Count 328 Th/cmm (150-400) 05/05/17 04:35 MPV 7.1 fl 05/05/17 04:35 Neutrophils % 59.2 % (40.0-80.0) 05/05/17 04:35 Band Neutrophils % 4 % (0-10) 05/02/17 05:15 Lymphocytes % 21.4 % (20.0-50.0) 05/05/17 04:35 Monocytes % 10.3 % (2.0-10.0) H 05/05/17 04:35 Eosinophils % 8.4 % (0.0-5.0) H 05/05/17 04:35 Basophils % 0.7 % (0.0-2.0) 05/05/17 04:35 Neutrophils (Manual) 68 % (40-80) 05/02/17 05:15 Lymphocytes 14 % (20-50) L 05/02/17 05:15 Monocytes 8 % (2-10) 05/02/17 05:15 Eosinophils 6 % (0-5) H 05/02/17 05:15 Metamyelocytes 1 % (0-0) H 04/22/17 05:04 Platelet Estimate ADEQUATE (NORMAL) 05/02/17 05:15 Platelet Morphology NORMAL (NORMAL) 05/02/17 05:15 Anisocytosis 1+ 04/28/17 06:08 Microcytosis 1+ 05/02/17 05:15 RBC Morph Micro Appear ABNORMAL (NORMAL) 05/02/17 05:15 ESR > 140 mm/hr (0-20) H 04/20/17 07:00 PT 11.9 SECONDS (9.5-11.5) H 04/24/17 21:19 INR 1.13 (0.5-1.4) 04/24/17 21:19 PTT (Actin FS) 27.6 SECONDS (26.0-38.0) 04/24/17 21:19 Specimen Source Arterial 05/05/17 08:58 Sample Site Left Radial 05/05/17 08:58 pH 7.52 (7.35-7.45) H 05/05/17 08:58 pCO2 44.0 mmHg (35.0-45.0) 05/05/17 08:58 pO2 89.0 mmHg (80.0-100.0) 05/05/17 08:58 HCO3 34.1 mEq/L (20.0-26.0) H 05/05/17 08:58 Base Excess 11.7 mEq/L (-3.0-3.0) H 05/05/17 08:58 O2 Saturation 98.0 % (92.0-100.0) 05/05/17 08:58 Chau Test YES 05/05/17 08:58 Vent Rate 16 05/05/17 08:58 Inspired O2 30 05/05/17 08:58 Tidal Volume 450 05/05/17 08:58 PEEP 3 05/05/17 08:58 Pressure (ins/psv/peep) NA 05/05/17 08:58 Critical Value E.ROSEN 05/05/17 08:58 Sodium 140 mEq/L (136-145) 05/05/17 04:35 Potassium 3.6 mEq/L (3.5-5.1) 05/05/17 04:35 Chloride 103 mEq/L (98-107) 05/05/17 04:35 Carbon Dioxide 31.9 mEq/L (21.0-31.0) H 05/05/17 04:35 Anion Gap 8.7 (7.0-16.0) 05/05/17 04:35 BUN 23 mg/dL (7-25) 05/05/17 04:35 Creatinine 1.1 mg/dL (0.7-1.3) 05/05/17 04:35 Est GFR ( Amer) > 60.0 ml/min (>90) 05/05/17 04:35 Est GFR (Non-Af Amer) > 60.0 ml/min 05/05/17 04:35 BUN/Creatinine Ratio 20.9 05/05/17 04:35 Glucose 167 mg/dL (70-105) H 05/05/17 04:35 POC Glucose 161 MG/DL (70 - 105) H 05/05/17 12:57 Hemoglobin A1c % 6.7 % (4.0-6.0) H 04/22/17 05:04 Whole Bld Lactic Acid 1.99 mmol/L (0.60-1.99) 05/05/17 04:35 Uric Acid 3.6 mg/dL (4.4-7.6) L 04/20/17 07:00 Calcium 9.4 mg/dL (8.6-10.3) 05/05/17 04:35 Phosphorus 3.1 mg/dL (2.5-5.0) 05/05/17 04:35 Magnesium 1.9 mg/dL (1.9-2.7) 05/05/17 04:35 Total Bilirubin 0.5 mg/dL (0.3-1.0) 05/05/17 04:35 Direct Bilirubin 0.11 mg/dL (0.0-0.2) 05/02/17 05:15 AST 53 U/L (13-39) H 05/05/17 04:35 ALT 21 U/L (7-52) 05/05/17 04:35 Alkaline Phosphatase 117 U/L (34-104) H 05/05/17 04:35 Ammonia 26 umol/L (16-53) 04/30/17 04:35 Creatine Kinase 136 U/L (30-223) 04/14/17 14:55 Troponin I 0.01 ng/mL (0.01-0.05) 04/22/17 05:04 C-Reactive Protein 28.9 mg/dL (0.0-0.9) H 04/20/17 07:00 B-Natriuretic Peptide 85.5 pg/mL (5.0-100.0) 04/14/17 14:55 Total Protein 6.9 gm/dL (6.0-8.3) 05/05/17 04:35 Albumin 2.3 gm/dL (4.2-5.5) L 05/05/17 04:35 Globulin 4.6 gm/dL 05/05/17 04:35 Albumin/Globulin Ratio 0.5 (1.0-1.8) L 05/05/17 04:35 Prealbumin 9 mg/dL (10-36) L 05/01/17 04:30 Triglycerides 383 mg/dL (<150) H 05/05/17 04:35 Cholesterol 104 mg/dL (<200) 05/05/17 04:35 LDL Cholesterol Direct 38 mg/dL (75-193) L 04/14/17 14:55 HDL Cholesterol 13 mg/dL (23-92) L 04/14/17 14:55 Amylase 44 U/L (29-103) 05/03/17 04:40 Lipase 15 U/L (11-82) 04/14/17 14:55 Urine Source SEN PORT 05/03/17 13:38 Urine Color YELLOW 05/03/17 13:38 Urine Clarity TURBID (CLEAR) 05/03/17 13:38 Urine pH 7.5 05/03/17 13:38 Ur Specific [place] 1.010 (1.005-1.030) 05/03/17 13:38 Urine Protein NEGATIVE mg/dL (NEGATIVE) 05/03/17 13:38 Urine Glucose (UA) NEGATIVE mg/dL (NEGATIVE) 05/03/17 13:38 Urine Ketones NEGATIVE mg/dL (NEGATIVE) 05/03/17 13:38 Urine Blood MODERATE (NEGATIVE) H 05/03/17 13:38 Urine Nitrate NEGATIVE (NEGATIVE) 05/03/17 13:38 Urine Bilirubin NEGATIVE (NEGATIVE) 05/03/17 13:38 Urine Urobilinogen 0.2 E.U./dL (0.2 - 1.0) 05/03/17 13:38 Ur Leukocyte Esterase TRACE (NEGATIVE) H 05/03/17 13:38 Urine RBC 50-100 /hpf (0-5) H 05/03/17 13:38 Urine WBC 6-10 /hpf (0-5) H 05/03/17 13:38 Ur Epithelial Cells FEW /lpf (FEW) 05/03/17 13:38 Amorphous Sediment MANY URATES (NONE SEEN) 04/14/17 15:05 Urine Bacteria FEW /hpf (NONE SEEN) 05/03/17 13:38 Vancomycin Trough 13.5 ug/mL (10-20) 04/19/17 19:20 Helicobacter pylori Ab NEGATIVE (NEGATIVE) 05/04/17 10:05 Blood Type O POSITIVE 05/02/17 07:12 Antibody Screen NEGATIVE 05/02/17 07:12 Crossmatch See Detail 05/02/17 07:12 - Physical Exam Vitals and I&O: Vital Signs Temp 99.2 F 05/05/17 12:00 Pulse 118 05/05/17 12:30 Resp 27 05/05/17 12:00 BP 142/85 05/05/17 12:00 Pulse Ox 100 05/05/17 12:30 Intake & Output 05/04/17 05/05/17 05/05/17 18:59 06:59 18:59 Intake Total 3047.924 3045 400 Output Total 3710 Balance 3047.924 -665 400 Weight (lbs) 87.906 kg Intake: Intake, IV Amount 3047.924 500 400 Fluconazole 200mg/100mL 100 200 mg In 100 ml @ 100 mls/hr IV Q24HR [facility] Rx#: [id number] Linezolid 600mg/300mL 600 300 300 300 mg In 300 ml @ 300 mls/ hr IV Q12HR [facility] Rx#: [id number] Meropenem 1 gm In Sodium 100 200 100 Chloride 0.9% 100 ml @ 100 mls/hr IV Q8H [facility] Rx# :[id number] Multivitamin Inj 10 ml In 2380 Dextrose 70% 1,740 ml In Amino Acids 10% 500 ml In Intralipids 20% 150 ml @ 100 mls/hr IV .Q24H [facility] Rx#:[id number] Propofol 1,000 mg In 100 167.924 ml @ Per Protocol IV TITR ARIAN Rx#:[id number] Tube Feeding 145 TPN/PPN 2400 Output: Gastric Drainage 300 Drainage 10 Medial Abdomen 10 Urine 2850 Stool 550 Other: Stool Characteristics Liquid Liquid Liquid Brown Brown Brown Active Medications: Current Medications Acetaminophen (Tylenol) 650 mg PO Q6H PRN PRN Reason: FEVER/PAIN Stop: 06/21/17 17:45 Last Admin: 05/05/17 00:20 Dose: 650 mg Albuterol/Ipratropium (Duoneb Neb) 3 ml HHN Q4HRT [facility] Stop: 06/15/17 14:59 Last Admin: 05/05/17 12:30 Dose: 3 ml Amiodarone HCl (Cordarone) 200 mg NG BID [facility] Stop: 06/24/17 23:14 Last Admin: 05/05/17 09:31 Dose: 200 mg Budesonide (Pulmicort) 0.5 mg HHN BIDRT [facility] Stop: 06/15/17 18:59 Last Admin: 05/05/17 08:02 Dose: 0.5 mg Chlorhexidine Gluconate (Peridex) 15 ml MM 0800,2000 [facility] Stop: 06/30/17 19:59 Last Admin: 05/05/17 09:00 Dose: 15 ml Heparin Sodium (Porcine) (Heparin) 5,000 units SUBQ Q12HR [facility] Stop: 07/01/17 20:59 Last Admin: 05/05/17 09:27 Dose: 5,000 units Multivitamins/Minerals 10 ml/Dextrose/ Amino Acids/Electrolytes/ Fat Emulsion Intravenous 2,400 mls @ 100 mls/hr IV .Q24H [facility] Stop: 06/23/17 15:59 Last Admin: 05/04/17 16:03 Dose: 100 mls/hr Dextrose/Sodium Chloride (D5-0.45ns) 1,000 mls @ 40 mls/hr IV .Q24H [facility] Stop: 06/23/17 15:59 Last Admin: 05/04/17 16:18 Dose: 40 mls/hr Diltiazem HCl 125 mg/ Dextrose 125 mls @ 10 mls/hr IV TITR [facility]AN; 10 MG/HR PRN Reason: Protocol Stop: 06/24/17 12:41 Last Titration: 05/02/17 07:00 Dose: Infused Norepinephrine Bitartrate 4 mg (/ Dextrose) 254 mls @ 0 mls/hr IV TITR PRN; Protocol; 0 MCG/MIN PRN Reason: BP MAINTENANCE (PER PROTOCOL) Stop: 06/30/17 09:25 Last Titration: 05/02/17 07:00 Dose: Infused Meropenem 1 gm/ Sodium (Chloride) 100 mls @ 100 mls/hr IV Q8H [facility] Stop: 06/30/17 11:14 Last Infusion: 05/05/17 15:20 Dose: Infused Fluconazole (Diflucan) 200 mg in 100 mls @ 100 mls/hr IV Q24HR [facility] Stop: 07/01/17 12:29 Last Admin: 05/05/17 12:27 Dose: 100 mls/hr Linezolid (Zyvox) 600 mg in 300 mls @ 300 mls/hr IV Q12HR [facility] Stop: 07/01/17 20:59 Last Infusion: 05/05/17 15:21 Dose: Infused Insulin Aspart (Novolog Insulin Sliding Scale) 0 units SUBQ Q6HR [facility] PRN Reason: Protocol Stop: 06/16/17 17:59 Last Admin: 05/05/17 13:00 Dose: 2 units Lorazepam (Ativan) 1 mg IVP Q4HR PRN; Protocol PRN Reason: Agitation Stop: 06/25/17 10:40 Last Admin: 05/05/17 06:57 Dose: 1 mg Lorazepam (Ativan) 1 mg IVP Q4HR PRN; Protocol PRN Reason: Agitation Stop: 07/03/17 16:14 Metoclopramide HCl (Reglan) 5 mg IVP Q8HR [facility] Stop: 07/04/17 12:59 Last Admin: 05/05/17 15:25 Dose: 5 mg Metoprolol Tartrate (Lopressor) 25 mg PO BID [facility] Stop: 06/26/17 08:59 Last Admin: 05/05/17 09:24 Dose: 25 mg Mineral Oil (Mineral Oil 30 Ml) 30 ml NG DAILY [facility] Stop: 07/04/17 12:29 Last Admin: 05/05/17 15:26 Dose: 30 ml Miscellaneous (Probiotic Screen) 1 ea MC PRN PRN PRN Reason: PROTOCOL Stop: 06/14/17 09:39 Miscellaneous (Clinical Monitoring) 1 ea MC DAILY PRN PRN Reason: RENAL Stop: 06/15/17 12:48 Miscellaneous (Tpn Per Pharmacy) 1 ea MC PRN PRN PRN Reason: PROTOCOL Stop: 06/16/17 12:28 Miscellaneous (Vte Chemical Prophylaxis Screen/ Admission) 1 ea MC PRN PRN PRN Reason: PROTOCOL Stop: 07/01/17 14:44 Morphine Sulfate (Morphine) 2 mg IVP Q4HR PRN PRN Reason: pain Stop: 07/01/17 09:37 Last Admin: 05/03/17 00:50 Dose: 2 mg Ondansetron HCl (Zofran) 4 mg IVP Q6H PRN PRN Reason: Nausea / Vomiting Stop: 06/13/17 20:08 Last Admin: 04/25/17 21:06 Dose: 4 mg Pantoprazole Sodium (Protonix) 40 mg IVP BID [facility] Stop: 07/01/17 10:14 Last Admin: 05/05/17 09:24 Dose: 40 mg General: no acute distress, well developed, well nourished HEENT: atraumatic, normocephalic, PERRLA, EOMI, moist mucous membrane Neck: supple, lines (Right IJ clean, no sign of infection.), no thyromegaly, no rigid Cardiovascular: S1S2, regular Lungs: clear to auscultation bilaterally, clear to percussion Abdomen: soft, bowel sounds, catheter (sen with clear urine.), other ( abdominial wall wound is open with wound vac. solostomu=y working (LLQ).), no hepatomegaly Extremities: edema, other (erythema of left leg.), no cyanosis, no clubbing Neurological: other (Unresponsive) - Procedures Procedures: Procedures Procedure Code Date BYPASS SIGMOID COLON TO CUTANEOUS, OPEN APPROACH [id number] 04/14/17 INSERT EMERGENCY AIRWAY 71948 04/14/17 INSERTION OF ENDOTRACHEAL AIRWAY INTO TRACHEA, VIA OPENING [id number] 04/14/17 PARTIAL REMOVAL OF COLON 01935 04/14/17 RESECTION OF SIGMOID COLON, OPEN APPROACH [id number] 04/14/17 RESPIRATORY VENTILATION, 24-96 CONSECUTIVE HOURS [id number] 04/14/17 VENT MGMT INPAT INIT DAY 06951 04/14/17 VENT MGMT INPAT SUBQ DAY 49005 04/14/17 Infectious Disease Assmt/Plan - Problem List Patient Problems: All Active Problems Abscess of sigmoid colon due to diverticulitis (Acute) K57.20 Diverticulitis of sigmoid colon (Acute) K57.32 Obesity (Acute) E66.9 Perforation of sigmoid colon due to diverticulitis (Acute) K57.20 Peritonitis (acute) generalized (Acute) K65.0 - Assessment Assessment: 1. Sepsis. febrile. 2. Diverticulitis, sigmoid diverticula to with support complicated by multiple abscesses and peritonitis. treated with expl lap. lactic asid WNL. 3. Post operatively, on ventilator. 4. Peritonitis. Likely polymicrobial. 5. Asthma exacerbation. 6. History of arthritis. 7. Distended abdomen likely post operative ileus. Rule out small bowel obstruction. 8. SEKOU. Improved. 9. Post op, paralytic ileus. improved. 10. Wrist cellulitis, worse on left with destruction of bones. X ray of the left wrist suggested osteomyelitis. 11. Wound dehiscence. 12. Vent dependent respiratory failure. 13. Left leg cellulitis. 14. Pneumonia, ( On CT scan). 15. fever might be from cellulitis, peritonitis or pneumonia. however, there is no leukocytosis, no bandemia, normal differential and no reactive thrombocytosis. - Plan Plan: Continue Zyvox iv, merrem and diflucan. Blood c/s, sepsis w/u. Check procalcitonin. DW INF Control depart. Check lactic acid in am. Nutritional Asmnt/Malnutr-PDOC - Dietary Evaluation Malnutrition Findings (Please click <Entered> for more info): Nutritional Asmnt/Malnutrition Start: 04/19/17 14: 21 Text: Status: Complete Freq: Document 04/19/17 14:21 GSUN (Rec: 04/19/17 14:58 [id number]) Nutritional Asmnt/Malnutrition Patient General Information Nutritional Screening Moderate Risk Screening Diagnosis Sepsis, diverticulitis, peritonitis Pertinent Medical Hx/Surgical Hx Asthma, diverticulosis Subjective Information 56 year old male frome home. Pt was restless, moving extremities during visit. 04/14 : sigmoid colectomy, end colostomy, abscess drainage, diffuse peritontis. 04/16: pt started PPN. 04/17: central line and started on TPN. Spoke to family at bedside, explained parenteral nutrition , family undersoto and has no further question at this time. Weight discrepancies noted in EMR, family does not know UBW , estimated nutritional needs based Current Diet Order/ Nutrition Support TPN D10% AA4.25% at 90ml/hr with IL20% 150ml, providing 1401.6kcal Pertinent Medications Dilaudid, Novolog, Culturelle, Magnesium Sulfate, Vancomycin , TPN, Morphine, Multivitamins , Zofran, Protonix, Nacl0.9% Pertinent Labs 04/14: triglycerides 106, total bilirubin 1.1H, glucose 116H 04/17: magnesium 2.5, phsophorus 3.2 04/19: magnesium 1.8L, phosphorus 2.4L, BUN 28H, creatinine 1.3, glucose 154H, total bilirubin 1.1H, triglycerides 238H Nutritional Hx/Data Height 1.7 m Height (Calculated Centimeters) 170.2 Current Weight (lbs) 95.254 kg Weight (Calculated Kilograms) 95.3 Weight (Calculated Grams) 10165.4 [place] Body Weight 148 Weight Status Overweight GI Symptoms Skin Integrity/Comment: [place] 14. Facial non-pitting 1+, bilateral hands pitting 1+ Estimated Nutritional Goals Calories/Kcals/Kg IBW 148/67.3kg Kcals Calculated 2019-2356kcal (30-35kcal/kg) Protein Calculated 101-135g (1.5-2g/kg) Fluid: ml Per MD Nutritional Problem 1. Problem Problem Altered GI function related to Etiology abscess and perforation of sigmoid colon due to diverticulitis aeb Signs/Symptoms: post-operative, on TPN Intervention/Recommendation Comments 1. Recommend TPN D15% AA5.5% at 100ml/hr with IL20% 150ml, providing 2400ml total volume, 2052kcal, 132g protein, meeting 100% of estimated nutritional needs. Carb load 2 .6mg/kg/min (using 210lb adm weight). 2. Monitor for possible refeeding syndrome, 04/18: phsophorus 2.1L, 04/19: magnesium 1.9. 3. Monitor triglycerides, total bilirubin, glucose, renal labs. Expected Outcomes/Goals Expected Outcomes/Goals 1. Pt to meet 100% of estimated nutritional needs on TPN.
[2017-05-05] MEDS: TPN 10%-70% CUSTOM IV SCH (18:15)
--- NOTE | 2017-05-05 20:30 | Progress Notes ---
DATE: 05/05/2017 PULMONARY PROGRESS NOTE PROBLEM LIST: 1. Persistent respiratory failure. 2. Recurrent encephalopathy. 3. Periods of tachypnea. 4. High position ET tube on a nasal intubation. 5. Underlying sepsis with pneumoperitonitis. SYMPTOMS: Nil. The patient is switched to assist control on being tachypneic, no respiratory distress, etc. PHYSICAL EXAMINATION: VITAL SIGNS: Temperature is 99.2. Heart is 110, blood pressure 142/82, saturation 100% on 30%. ENT: Shows no new changes. CHEST: Shows diminished air entry with occasional rhonchi. HEART: Regular. ABDOMEN: Soft, nontender. LABORATORY DATA: The patient's ABG showed respiratory metabolic alkalosis electrolytes are okay. IMPRESSION: The patient is status quo, not able to handle weaning. PLANS AND SUGGESTIONS: We will go ahead and continue current treatment. We will follow through lab and blood gases tomorrow again. Discussed care and plan with the patient's daughter at the bedside. JOB# [id number]
[2017-05-05] MEDS: D5-0.45NS 1,000 ML IV SCH (20:49)
[2017-05-05] MEDS: Morphine Sulfate 2 mg/mL 1mL Syr IVP PRN (20:56)
--- NOTE | 2017-05-05 22:35 | Internal Medicine Prog Note ---
Internal Medicine Subjective - Subjective Service Date: 05/05/17 Patient seen and examined:: with staff Patient is:: non-verbal, in bed Per staff patient has:: no adverse event (ON VENT.) Internal Medicine Objective - Results Result Diagrams: 05/05/17 04:35 05/05/17 04:35 Recent Labs: Laboratory Last Values WBC 6.8 Th/cmm (4.8-10.8) D 05/05/17 04:35 RBC 3.81 Mil/cmm (4.30-5.70) L 05/05/17 04:35 Hgb 10.3 gm/dL (13.2-17.3) L 05/05/17 04:35 Hct 31.0 % (39.0-49.0) L 05/05/17 04:35 MCV 81.4 fl (80-99) 05/05/17 04:35 MCH 27.0 pg (26.0-30.0) 05/05/17 04:35 MCHC Differential 33.1 pg (28.0-36.0) 05/05/17 04:35 RDW 15.8 % (11.5-20.0) 05/05/17 04:35 Plt Count 328 Th/cmm (150-400) 05/05/17 04:35 MPV 7.1 fl 05/05/17 04:35 Neutrophils % 59.2 % (40.0-80.0) 05/05/17 04:35 Band Neutrophils % 4 % (0-10) 05/02/17 05:15 Lymphocytes % 21.4 % (20.0-50.0) 05/05/17 04:35 Monocytes % 10.3 % (2.0-10.0) H 05/05/17 04:35 Eosinophils % 8.4 % (0.0-5.0) H 05/05/17 04:35 Basophils % 0.7 % (0.0-2.0) 05/05/17 04:35 Neutrophils (Manual) 68 % (40-80) 05/02/17 05:15 Lymphocytes 14 % (20-50) L 05/02/17 05:15 Monocytes 8 % (2-10) 05/02/17 05:15 Eosinophils 6 % (0-5) H 05/02/17 05:15 Metamyelocytes 1 % (0-0) H 04/22/17 05:04 Platelet Estimate ADEQUATE (NORMAL) 05/02/17 05:15 Platelet Morphology NORMAL (NORMAL) 05/02/17 05:15 Anisocytosis 1+ 04/28/17 06:08 Microcytosis 1+ 05/02/17 05:15 RBC Morph Micro Appear ABNORMAL (NORMAL) 05/02/17 05:15 ESR > 140 mm/hr (0-20) H 04/20/17 07:00 PT 11.9 SECONDS (9.5-11.5) H 04/24/17 21:19 INR 1.13 (0.5-1.4) 04/24/17 21:19 PTT (Actin FS) 27.6 SECONDS (26.0-38.0) 04/24/17 21:19 Specimen Source Arterial 05/05/17 08:58 Sample Site Left Radial 05/05/17 08:58 pH 7.52 (7.35-7.45) H 05/05/17 08:58 pCO2 44.0 mmHg (35.0-45.0) 05/05/17 08:58 pO2 89.0 mmHg (80.0-100.0) 05/05/17 08:58 HCO3 34.1 mEq/L (20.0-26.0) H 05/05/17 08:58 Base Excess 11.7 mEq/L (-3.0-3.0) H 05/05/17 08:58 O2 Saturation 98.0 % (92.0-100.0) 05/05/17 08:58 Chau Test YES 05/05/17 08:58 Vent Rate 16 05/05/17 08:58 Inspired O2 30 05/05/17 08:58 Tidal Volume 450 05/05/17 08:58 PEEP 3 05/05/17 08:58 Pressure (ins/psv/peep) NA 05/05/17 08:58 Critical Value E.ROSEN 05/05/17 08:58 Sodium 140 mEq/L (136-145) 05/05/17 04:35 Potassium 3.6 mEq/L (3.5-5.1) 05/05/17 04:35 Chloride 103 mEq/L (98-107) 05/05/17 04:35 Carbon Dioxide 31.9 mEq/L (21.0-31.0) H 05/05/17 04:35 Anion Gap 8.7 (7.0-16.0) 05/05/17 04:35 BUN 23 mg/dL (7-25) 05/05/17 04:35 Creatinine 1.1 mg/dL (0.7-1.3) 05/05/17 04:35 Est GFR ( Amer) > 60.0 ml/min (>90) 05/05/17 04:35 Est GFR (Non-Af Amer) > 60.0 ml/min 05/05/17 04:35 BUN/Creatinine Ratio 20.9 05/05/17 04:35 Glucose 167 mg/dL (70-105) H 05/05/17 04:35 POC Glucose 188 MG/DL (70 - 105) H 05/05/17 18:39 Hemoglobin A1c % 6.7 % (4.0-6.0) H 04/22/17 05:04 Whole Bld Lactic Acid 1.99 mmol/L (0.60-1.99) 05/05/17 04:35 Uric Acid 3.6 mg/dL (4.4-7.6) L 04/20/17 07:00 Calcium 9.4 mg/dL (8.6-10.3) 05/05/17 04:35 Phosphorus 3.1 mg/dL (2.5-5.0) 05/05/17 04:35 Magnesium 1.9 mg/dL (1.9-2.7) 05/05/17 04:35 Total Bilirubin 0.5 mg/dL (0.3-1.0) 05/05/17 04:35 Direct Bilirubin 0.11 mg/dL (0.0-0.2) 05/02/17 05:15 AST 53 U/L (13-39) H 05/05/17 04:35 ALT 21 U/L (7-52) 05/05/17 04:35 Alkaline Phosphatase 117 U/L (34-104) H 05/05/17 04:35 Ammonia 26 umol/L (16-53) 04/30/17 04:35 Creatine Kinase 136 U/L (30-223) 04/14/17 14:55 Troponin I 0.01 ng/mL (0.01-0.05) 04/22/17 05:04 C-Reactive Protein 28.9 mg/dL (0.0-0.9) H 04/20/17 07:00 B-Natriuretic Peptide 85.5 pg/mL (5.0-100.0) 04/14/17 14:55 Total Protein 6.9 gm/dL (6.0-8.3) 05/05/17 04:35 Albumin 2.3 gm/dL (4.2-5.5) L 05/05/17 04:35 Globulin 4.6 gm/dL 05/05/17 04:35 Albumin/Globulin Ratio 0.5 (1.0-1.8) L 05/05/17 04:35 Prealbumin 9 mg/dL (10-36) L 05/01/17 04:30 Triglycerides 383 mg/dL (<150) H 05/05/17 04:35 Cholesterol 104 mg/dL (<200) 05/05/17 04:35 LDL Cholesterol Direct 38 mg/dL (75-193) L 04/14/17 14:55 HDL Cholesterol 13 mg/dL (23-92) L 04/14/17 14:55 Amylase 44 U/L (29-103) 05/03/17 04:40 Lipase 15 U/L (11-82) 04/14/17 14:55 Urine Source [place] 05/03/17 13:38 Urine Color YELLOW 05/03/17 13:38 Urine Clarity TURBID (CLEAR) 05/03/17 13:38 Urine pH 7.5 05/03/17 13:38 Ur Specific [place] 1.010 (1.005-1.030) 05/03/17 13:38 Urine Protein NEGATIVE mg/dL (NEGATIVE) 05/03/17 13:38 Urine Glucose (UA) NEGATIVE mg/dL (NEGATIVE) 05/03/17 13:38 Urine Ketones NEGATIVE mg/dL (NEGATIVE) 05/03/17 13:38 Urine Blood MODERATE (NEGATIVE) H 05/03/17 13:38 Urine Nitrate NEGATIVE (NEGATIVE) 05/03/17 13:38 Urine Bilirubin NEGATIVE (NEGATIVE) 05/03/17 13:38 Urine Urobilinogen 0.2 E.U./dL (0.2 - 1.0) 05/03/17 13:38 Ur Leukocyte Esterase TRACE (NEGATIVE) H 05/03/17 13:38 Urine RBC 50-100 /hpf (0-5) H 05/03/17 13:38 Urine WBC 6-10 /hpf (0-5) H 05/03/17 13:38 Ur Epithelial Cells FEW /lpf (FEW) 05/03/17 13:38 Amorphous Sediment MANY URATES (NONE SEEN) 04/14/17 15:05 Urine Bacteria FEW /hpf (NONE SEEN) 05/03/17 13:38 Vancomycin Trough 13.5 ug/mL (10-20) 04/19/17 19:20 Helicobacter pylori Ab NEGATIVE (NEGATIVE) 05/04/17 10:05 Blood Type O POSITIVE 05/02/17 07:12 Antibody Screen NEGATIVE 05/02/17 07:12 Crossmatch See Detail 05/02/17 07:12 - Physical Exam Vitals and I&O: Vital Signs Temp 98.7 F 05/05/17 19:00 Pulse 103 05/05/17 21:34 Resp 22 05/05/17 19:00 BP 142/78 05/05/17 20:10 Pulse Ox 100 05/05/17 21:34 Intake & Output 05/05/17 05/05/17 05/06/17 06:59 18:59 06:59 Intake Total 3045 5150 Output Total 3710 1500 Balance -665 3650 Weight (lbs) 87.906 kg 87.906 kg Intake: Intake, IV Amount 500 3800 D5-0.45NS 1,000 ml @ 40 1000 mls/hr IV .Q24H ARIAN Rx#: [id number] Linezolid 600mg/300mL 600 300 300 mg In 300 ml @ 300 mls/ hr IV Q12HR [facility]AN Rx#: [id number] Meropenem 1 gm In Sodium 200 100 Chloride 0.9% 100 ml @ 100 mls/hr IV Q8H [facility] Rx# :[id number] Multivitamin Inj 10 ml In 2400 Dextrose 70% 1,740 ml In Amino Acids 10% 500 ml In Intralipids 20% 150 ml @ 100 mls/hr IV .Q24H ARIAN Rx#:[id number] Tube Feeding 145 TPN/PPN 2400 1200 Other 150 Output: Gastric Drainage 300 Drainage 10 Medial Abdomen 10 Urine 2850 1500 Stool 550 0 Other: Stool Characteristics Liquid Liquid Brown Brown Active Medications: Current Medications Acetaminophen (Tylenol) 650 mg PO Q6H PRN PRN Reason: FEVER/PAIN Stop: 06/21/17 17:45 Last Admin: 05/05/17 00:20 Dose: 650 mg Albuterol/Ipratropium (Duoneb Neb) 3 ml HHN Q4HRT [facility] Stop: 06/15/17 14:59 Last Admin: 05/05/17 18:58 Dose: 3 ml Amiodarone HCl (Cordarone) 200 mg NG BID [facility] Stop: 06/24/17 23:14 Last Admin: 05/05/17 18:00 Dose: 200 mg Budesonide (Pulmicort) 0.5 mg HHN BIDRT [facility] Stop: 06/15/17 18:59 Last Admin: 05/05/17 18:58 Dose: 0.5 mg Chlorhexidine Gluconate (Peridex) 15 ml MM 0800,1999 [facility] Stop: 06/30/17 19:59 Last Admin: 05/05/17 21:00 Dose: 15 ml Heparin Sodium (Porcine) (Heparin) 5,000 units SUBQ Q12HR [facility] Stop: 07/01/17 20:59 Last Admin: 05/05/17 21:00 Dose: 5,000 units Multivitamins/Minerals 10 ml/Dextrose/ Amino Acids/Electrolytes/ Fat Emulsion Intravenous 2,400 mls @ 100 mls/hr IV .Q24H [facility] Stop: 06/23/17 15:59 Last Admin: 05/05/17 18:15 Dose: 100 mls/hr Dextrose/Sodium Chloride (D5-0.45ns) 1,000 mls @ 40 mls/hr IV .Q24H [facility] Stop: 06/23/17 15:59 Last Admin: 05/05/17 20:49 Dose: 40 mls/hr Diltiazem HCl 125 mg/ Dextrose 125 mls @ 10 mls/hr IV TITR ARIAN; 10 MG/HR PRN Reason: Protocol Stop: 06/24/17 12:41 Last Titration: 05/02/17 07:00 Dose: Infused Norepinephrine Bitartrate 4 mg (/ Dextrose) 254 mls @ 0 mls/hr IV TITR PRN; Protocol; 0 MCG/MIN PRN Reason: BP MAINTENANCE (PER PROTOCOL) Stop: 06/30/17 09:25 Last Titration: 05/02/17 07:00 Dose: Infused Meropenem 1 gm/ Sodium (Chloride) 100 mls @ 100 mls/hr IV Q8H [facility] Stop: 06/30/17 11:14 Last Admin: 05/05/17 20:16 Dose: 100 mls/hr Fluconazole (Diflucan) 200 mg in 100 mls @ 100 mls/hr IV Q24HR [facility] Stop: 07/01/17 12:29 Last Admin: 05/05/17 12:27 Dose: 100 mls/hr Linezolid (Zyvox) 600 mg in 300 mls @ 300 mls/hr IV Q12HR [facility] Stop: 07/01/17 20:59 Last Infusion: 05/05/17 15:21 Dose: Infused Insulin Aspart (Novolog Insulin Sliding Scale) 0 units SUBQ Q6HR [facility]AN PRN Reason: Protocol Stop: 06/16/17 17:59 Last Admin: 05/05/17 18:43 Dose: 2 units Lorazepam (Ativan) 1 mg IVP Q4HR PRN; Protocol PRN Reason: Agitation Stop: 07/03/17 16:14 Last Admin: 05/05/17 21:20 Dose: 1 mg Metoclopramide HCl (Reglan) 5 mg IVP Q8HR [facility] Stop: 07/04/17 12:59 Last Admin: 05/05/17 20:56 Dose: 5 mg Metoprolol Tartrate (Lopressor) 25 mg PO BID [facility] Stop: 06/26/17 08:59 Last Admin: 05/05/17 20:10 Dose: 25 mg Mineral Oil (Mineral Oil 30 Ml) 30 ml NG DAILY [facility] Stop: 07/04/17 12:29 Last Admin: 05/05/17 15:26 Dose: 30 ml Miscellaneous (Probiotic Screen) 1 ea MC PRN PRN PRN Reason: PROTOCOL Stop: 06/14/17 09:39 Miscellaneous (Clinical Monitoring) 1 ea MC DAILY PRN PRN Reason: RENAL Stop: 06/15/17 12:48 Miscellaneous (Tpn Per Pharmacy) 1 ea MC PRN PRN PRN Reason: PROTOCOL Stop: 06/16/17 12:28 Miscellaneous (Vte Chemical Prophylaxis Screen/ Admission) 1 ea MC PRN PRN PRN Reason: PROTOCOL Stop: 07/01/17 14:44 Morphine Sulfate (Morphine) 2 mg IVP Q4HR PRN PRN Reason: pain Stop: 07/01/17 09:37 Last Admin: 05/05/17 20:56 Dose: 2 mg Ondansetron HCl (Zofran) 4 mg IVP Q6H PRN PRN Reason: Nausea / Vomiting Stop: 06/13/17 20:08 Last Admin: 04/25/17 21:06 Dose: 4 mg Pantoprazole Sodium (Protonix) 40 mg IVP BID [facility] Stop: 07/01/17 10:14 Last Admin: 05/05/17 18:14 Dose: 40 mg General: obese, other (ON VENT) HEENT: anicteric sclerae Neck: No JVD Lungs: congested, rales Cardiovascular: RRR, Normal S1, Normal S2, without murmur Abdomen: tender, non-distended Extremities: edema Neurological: no change - Procedures Procedures: Procedures Procedure Code Date BYPASS SIGMOID COLON TO CUTANEOUS, OPEN APPROACH [id number] 04/14/17 INSERT EMERGENCY AIRWAY 29799 04/14/17 INSERTION OF ENDOTRACHEAL AIRWAY INTO TRACHEA, VIA OPENING [id number] 04/14/17 PARTIAL REMOVAL OF COLON 49920 04/14/17 RESECTION OF SIGMOID COLON, OPEN APPROACH [id number] 04/14/17 RESPIRATORY VENTILATION, 24-96 CONSECUTIVE HOURS [id number] 04/14/17 VENT MGMT INPAT INIT DAY 22232 04/14/17 VENT MGMT INPAT SUBQ DAY 50228 04/14/17 Internal Medicine Assmt/Plan - Assessment Assessment: 1.RESPIRATORY FAILURE. 2.ANOXIC ENCEPHALOPATHY. 3.SP EXPLORATORY LAPRATOMY. 4.ANEMIA - Plan Plan: CONTINUE ON CURRENT MEDICATION AND DIET. Nutritional Asmnt/Malnutr-PDOC - Dietary Evaluation Malnutrition Findings (Please click <Entered> for more info): Nutritional Asmnt/Malnutrition Start: 04/19/17 14: 21 Text: Status: Complete Freq: Document 04/19/17 14:21 GSUN (Rec: 04/19/17 14:58 [id number]) Nutritional Asmnt/Malnutrition Patient General Information Nutritional Screening Moderate Risk Screening Diagnosis Sepsis, diverticulitis, peritonitis Pertinent Medical Hx/Surgical Hx Asthma, diverticulosis Subjective Information 56 year old male frome home. Pt was restless, moving extremities during visit. 04/14 : sigmoid colectomy, end colostomy, abscess drainage, diffuse peritontis. 04/16: pt started PPN. 04/17: central line and started on TPN. Spoke to family at bedside, explained parenteral nutrition , family undersoto and has no further question at this time. Weight discrepancies noted in EMR, family does not know UBW , estimated nutritional needs based Current Diet Order/ Nutrition Support TPN D10% AA4.25% at 90ml/hr with IL20% 150ml, providing 1401.6kcal Pertinent Medications Dilaudid, Novolog, Culturelle, Magnesium Sulfate, Vancomycin , TPN, Morphine, Multivitamins , Zofran, Protonix, Nacl0.9% Pertinent Labs 04/14: triglycerides 106, total bilirubin 1.1H, glucose 116H 04/17: magnesium 2.5, phsophorus 3.2 04/19: magnesium 1.8L, phosphorus 2.4L, BUN 28H, creatinine 1.3, glucose 154H, total bilirubin 1.1H, triglycerides 238H Nutritional Hx/Data Height 1.7 m Height (Calculated Centimeters) 170.2 Current Weight (lbs) 95.254 kg Weight (Calculated Kilograms) 95.3 Weight (Calculated Grams) 82639.4 [place] Body Weight 148 Weight Status Overweight GI Symptoms Skin Integrity/Comment: [place] 14. Facial non-pitting 1+, bilateral hands pitting 1+ Estimated Nutritional Goals Calories/Kcals/Kg IBW 148/67.3kg Kcals Calculated 2019-2356kcal (30-35kcal/kg) Protein Calculated 101-135g (1.5-2g/kg) Fluid: ml Per MD Nutritional Problem 1. Problem Problem Altered GI function related to Etiology abscess and perforation of sigmoid colon due to diverticulitis aeb Signs/Symptoms: post-operative, on TPN Intervention/Recommendation Comments 1. Recommend TPN D15% AA5.5% at 100ml/hr with IL20% 150ml, providing 2400ml total volume, 2052kcal, 132g protein, meeting 100% of estimated nutritional needs. Carb load 2 .6mg/kg/min (using 210lb adm weight). 2. Monitor for possible refeeding syndrome, 04/18: phsophorus 2.1L, 04/19: magnesium 1.9. 3. Monitor triglycerides, total bilirubin, glucose, renal labs. Expected Outcomes/Goals Expected Outcomes/Goals 1. Pt to meet 100% of estimated nutritional needs on TPN.
[2017-05-06] MEDS: INSULIN ASPART SLIDING SCALE 100 UNITS/ML UNIT SUBQ SCH ×4 (00:33→17:52)
[2017-05-06] MEDS: Morphine Sulfate 2 mg/mL 1mL Syr IVP PRN ×3 (01:35→19:54)
[2017-05-06] MEDS: Linezolid 600mg/300mL 600 MG/300 ML BAG IV SCH ×3 (02:05→21:42)
[2017-05-06] MEDS: Albuterol/Ipratropium Neb 3 ML AERS HHN SCH ×5 (03:08→23:52)
[2017-05-06] MEDS: Meropenem 1 GM in Sodium Chloride 0.9% 100 ML IV SCH ×3 (05:23→21:07)
[2017-05-06 05:40] LABS: MAGNESIUM 1.8 mg/dL (1.9-2.7); PHOSPHOROUS 3.1 mg/dL (2.5-5.0)
[2017-05-06] MEDS: Budesonide 0.5 Mg/2 mL Ud HHN SCH (07:45)
[2017-05-06 09:12] LABS: ALB/GLOB RATIO 0.5 (1.0-1.8); ALKALINE PHOSPHATASE 97 U/L (34-104); ANION GAP 10.1 (7.0-16.0); BILIRUBIN,TOTAL 0.4 mg/dL (0.3-1.0); BUN - UREA NITROGEN 23 mg/dL (7-25); CARBON DIOXIDE 29.5 mEq/L (21.0-31.0); CHLORIDE 104 mEq/L (98-107); GLUCOSE 190 mg/dL (70-105); POTASSIUM SERUM 3.6 mEq/L (3.5-5.1); SGOT 38 U/L (13-39); SGPT/ALT 16 U/L (7-52); SODIUM SERUM 140 mEq/L (136-145)
[2017-05-06] MEDS: Chlorhexidine Gluconate 0.12% 15mL Mouthwash MM SCH ×2 (09:54→20:00)
--- NOTE | 2017-05-06 11:17 | Infectious Disease Prog Note ---
Infectious Disease Subjective - Review of Systems Service Date: 05/06/17 Subjective: No new change. Intermittent fevers. Intubated nasally, on the ventilator support. Infectious Disease Objective - Results Result Diagrams: 05/05/17 04:35 05/06/17 05:00 Recent Labs: Laboratory Last Values WBC 6.8 Th/cmm (4.8-10.8) D 05/05/17 04:35 RBC 3.81 Mil/cmm (4.30-5.70) L 05/05/17 04:35 Hgb 10.3 gm/dL (13.2-17.3) L 05/05/17 04:35 Hct 31.0 % (39.0-49.0) L 05/05/17 04:35 MCV 81.4 fl (80-99) 05/05/17 04:35 MCH 27.0 pg (26.0-30.0) 05/05/17 04:35 MCHC Differential 33.1 pg (28.0-36.0) 05/05/17 04:35 RDW 15.8 % (11.5-20.0) 05/05/17 04:35 Plt Count 328 Th/cmm (150-400) 05/05/17 04:35 MPV 7.1 fl 05/05/17 04:35 Neutrophils % 59.2 % (40.0-80.0) 05/05/17 04:35 Band Neutrophils % 4 % (0-10) 05/02/17 05:15 Lymphocytes % 21.4 % (20.0-50.0) 05/05/17 04:35 Monocytes % 10.3 % (2.0-10.0) H 05/05/17 04:35 Eosinophils % 8.4 % (0.0-5.0) H 05/05/17 04:35 Basophils % 0.7 % (0.0-2.0) 05/05/17 04:35 Neutrophils (Manual) 68 % (40-80) 05/02/17 05:15 Lymphocytes 14 % (20-50) L 05/02/17 05:15 Monocytes 8 % (2-10) 05/02/17 05:15 Eosinophils 6 % (0-5) H 05/02/17 05:15 Metamyelocytes 1 % (0-0) H 04/22/17 05:04 Platelet Estimate ADEQUATE (NORMAL) 05/02/17 05:15 Platelet Morphology NORMAL (NORMAL) 05/02/17 05:15 Anisocytosis 1+ 04/28/17 06:08 Microcytosis 1+ 05/02/17 05:15 RBC Morph Micro Appear ABNORMAL (NORMAL) 05/02/17 05:15 ESR > 140 mm/hr (0-20) H 04/20/17 07:00 PT 11.9 SECONDS (9.5-11.5) H 04/24/17 21:19 INR 1.13 (0.5-1.4) 04/24/17 21:19 PTT (Actin FS) 27.6 SECONDS (26.0-38.0) 04/24/17 21:19 Specimen Source Arterial 05/05/17 08:58 Sample Site Left Radial 05/05/17 08:58 pH 7.52 (7.35-7.45) H 05/05/17 08:58 pCO2 44.0 mmHg (35.0-45.0) 05/05/17 08:58 pO2 89.0 mmHg (80.0-100.0) 05/05/17 08:58 HCO3 34.1 mEq/L (20.0-26.0) H 05/05/17 08:58 Base Excess 11.7 mEq/L (-3.0-3.0) H 05/05/17 08:58 O2 Saturation 98.0 % (92.0-100.0) 05/05/17 08:58 Chau Test YES 05/05/17 08:58 Vent Rate 16 05/05/17 08:58 Inspired O2 30 05/05/17 08:58 Tidal Volume 450 05/05/17 08:58 PEEP 3 05/05/17 08:58 Pressure (ins/psv/peep) NA 05/05/17 08:58 Critical Value E.ROSEN 05/05/17 08:58 Sodium 140 mEq/L (136-145) 05/06/17 05:00 Potassium 3.6 mEq/L (3.5-5.1) 05/06/17 05:00 Chloride 104 mEq/L (98-107) 05/06/17 05:00 Carbon Dioxide 29.5 mEq/L (21.0-31.0) 05/06/17 05:00 Anion Gap 10.1 (7.0-16.0) 05/06/17 05:00 BUN 23 mg/dL (7-25) 05/06/17 05:00 Creatinine 1.0 mg/dL (0.7-1.3) 05/06/17 05:00 Est GFR ( Amer) > 60.0 ml/min (>90) 05/06/17 05:00 Est GFR (Non-Af Amer) > 60.0 ml/min 05/06/17 05:00 BUN/Creatinine Ratio 23.0 05/06/17 05:00 Glucose 190 mg/dL (70-105) H 05/06/17 05:00 POC Glucose 162 MG/DL (70 - 105) H 05/06/17 00:27 Hemoglobin A1c % 6.7 % (4.0-6.0) H 04/22/17 05:04 Whole Bld Lactic Acid 2.02 mmol/L (0.60-1.99) H* 05/06/17 06:31 Uric Acid 3.6 mg/dL (4.4-7.6) L 04/20/17 07:00 Calcium 9.0 mg/dL (8.6-10.3) 05/06/17 05:00 Phosphorus 3.1 mg/dL (2.5-5.0) 05/06/17 04:30 Magnesium 1.8 mg/dL (1.9-2.7) L 05/06/17 04:30 Total Bilirubin 0.4 mg/dL (0.3-1.0) 05/06/17 05:00 Direct Bilirubin 0.11 mg/dL (0.0-0.2) 05/02/17 05:15 AST 38 U/L (13-39) 05/06/17 05:00 ALT 16 U/L (7-52) 05/06/17 05:00 Alkaline Phosphatase 97 U/L (34-104) 05/06/17 05:00 Ammonia 26 umol/L (16-53) 04/30/17 04:35 Creatine Kinase 136 U/L (30-223) 04/14/17 14:55 Troponin I 0.01 ng/mL (0.01-0.05) 04/22/17 05:04 C-Reactive Protein 28.9 mg/dL (0.0-0.9) H 04/20/17 07:00 B-Natriuretic Peptide 85.5 pg/mL (5.0-100.0) 04/14/17 14:55 Total Protein 5.8 gm/dL (6.0-8.3) L 05/06/17 05:00 Albumin 2.0 gm/dL (4.2-5.5) L 05/06/17 05:00 Globulin 3.8 gm/dL 05/06/17 05:00 Albumin/Globulin Ratio 0.5 (1.0-1.8) L 05/06/17 05:00 Prealbumin 12 mg/dL (10-36) 05/05/17 04:35 Triglycerides 383 mg/dL (<150) H 05/05/17 04:35 Cholesterol 104 mg/dL (<200) 05/05/17 04:35 LDL Cholesterol Direct 38 mg/dL (75-193) L 04/14/17 14:55 HDL Cholesterol 13 mg/dL (23-92) L 04/14/17 14:55 Amylase 44 U/L (29-103) 05/03/17 04:40 Lipase 15 U/L (11-82) 04/14/17 14:55 Urine Source [place] 05/03/17 13:38 Urine Color YELLOW 05/03/17 13:38 Urine Clarity TURBID (CLEAR) 05/03/17 13:38 Urine pH 7.5 05/03/17 13:38 Ur Specific [place] 1.010 (1.005-1.030) 05/03/17 13:38 Urine Protein NEGATIVE mg/dL (NEGATIVE) 05/03/17 13:38 Urine Glucose (UA) NEGATIVE mg/dL (NEGATIVE) 05/03/17 13:38 Urine Ketones NEGATIVE mg/dL (NEGATIVE) 05/03/17 13:38 Urine Blood MODERATE (NEGATIVE) H 05/03/17 13:38 Urine Nitrate NEGATIVE (NEGATIVE) 05/03/17 13:38 Urine Bilirubin NEGATIVE (NEGATIVE) 05/03/17 13:38 Urine Urobilinogen 0.2 E.U./dL (0.2 - 1.0) 05/03/17 13:38 Ur Leukocyte Esterase TRACE (NEGATIVE) H 05/03/17 13:38 Urine RBC 50-100 /hpf (0-5) H 05/03/17 13:38 Urine WBC 6-10 /hpf (0-5) H 05/03/17 13:38 Ur Epithelial Cells FEW /lpf (FEW) 05/03/17 13:38 Amorphous Sediment MANY URATES (NONE SEEN) 04/14/17 15:05 Urine Bacteria FEW /hpf (NONE SEEN) 05/03/17 13:38 Vancomycin Trough 13.5 ug/mL (10-20) 04/19/17 19:20 Helicobacter pylori Ab NEGATIVE (NEGATIVE) 05/04/17 10:05 Blood Type O POSITIVE 05/02/17 07:12 Antibody Screen NEGATIVE 05/02/17 07:12 Crossmatch See Detail 05/02/17 07:12 - Physical Exam Vitals and I&O: Vital Signs Temp 99.4 F 05/06/17 08:00 Pulse 125 05/06/17 09:53 Resp 23 05/06/17 08:00 BP 125/80 05/06/17 09:53 Pulse Ox 100 05/06/17 08:09 Intake & Output 05/05/17 05/06/17 05/06/17 18:59 06:59 18:59 Intake Total 5150 1660 Output Total 1500 1055 Balance 3650 605 Weight (lbs) 87.906 kg 108.409 kg Intake: Intake, IV Amount 3800 400 D5-0.45NS 1,000 ml @ 40 1000 mls/hr IV .Q24H [facility] Rx#: [id number] Linezolid 600mg/300mL 600 300 300 mg In 300 ml @ 300 mls/ hr IV Q12HR [facility] Rx#: [id number] Meropenem 1 gm In Sodium 100 100 Chloride 0.9% 100 ml @ 100 mls/hr IV Q8H [facility] Rx# :[id number] Multivitamin Inj 10 ml In 2400 Dextrose 70% 1,740 ml In Amino Acids 10% 500 ml In Intralipids 20% 150 ml @ 100 mls/hr IV .Q24H [facility] Rx#:[id number] Oral 60 TPN/PPN 1200 1200 Other 150 Output: Drainage 5 Medial Abdomen 5 Urine 1500 1000 Stool 0 50 Other: Stool Characteristics Liquid Soft Soft Brown Liquid Liquid Mucoid Mucoid Active Medications: Current Medications Acetaminophen (Tylenol) 650 mg PO Q6H PRN PRN Reason: FEVER/PAIN Stop: 06/21/17 17:45 Last Admin: 05/06/17 02:54 Dose: 650 mg Albuterol/Ipratropium (Duoneb Neb) 3 ml HHN Q4HRT [facility] Stop: 06/15/17 14:59 Last Admin: 05/06/17 07:45 Dose: 3 ml Amiodarone HCl (Cordarone) 200 mg NG BID [facility] Stop: 06/24/17 23:14 Last Admin: 05/06/17 09:53 Dose: 200 mg Budesonide (Pulmicort) 0.5 mg HHN BIDRT [facility] Stop: 06/15/17 18:59 Last Admin: 05/06/17 07:45 Dose: 0.5 mg Chlorhexidine Gluconate (Peridex) 15 ml MM 0800,1999 [facility] Stop: 06/30/17 19:59 Last Admin: 05/06/17 09:54 Dose: 15 ml Heparin Sodium (Porcine) (Heparin) 5,000 units SUBQ Q12HR [facility] Stop: 07/01/17 20:59 Last Admin: 05/06/17 09:51 Dose: 5,000 units Multivitamins/Minerals 10 ml/Dextrose/ Amino Acids/Electrolytes/ Fat Emulsion Intravenous 2,400 mls @ 100 mls/hr IV .Q24H [facility] Stop: 06/23/17 15:59 Last Admin: 05/05/17 18:15 Dose: 100 mls/hr Dextrose/Sodium Chloride (D5-0.45ns) 1,000 mls @ 40 mls/hr IV .Q24H [facility] Stop: 06/23/17 15:59 Last Admin: 05/05/17 20:49 Dose: 40 mls/hr Diltiazem HCl 125 mg/ Dextrose 125 mls @ 10 mls/hr IV TITR [facility]; 10 MG/HR PRN Reason: Protocol Stop: 06/24/17 12:41 Last Titration: 05/02/17 07:00 Dose: Infused Norepinephrine Bitartrate 4 mg (/ Dextrose) 254 mls @ 0 mls/hr IV TITR PRN; Protocol; 0 MCG/MIN PRN Reason: BP MAINTENANCE (PER PROTOCOL) Stop: 06/30/17 09:25 Last Titration: 05/02/17 07:00 Dose: Infused Meropenem 1 gm/ Sodium (Chloride) 100 mls @ 100 mls/hr IV Q8H [facility] Stop: 06/30/17 11:14 Last Admin: 05/06/17 05:23 Dose: 100 mls/hr Fluconazole (Diflucan) 200 mg in 100 mls @ 100 mls/hr IV Q24HR [facility] Stop: 07/01/17 12:29 Last Admin: 05/05/17 12:27 Dose: 100 mls/hr Linezolid (Zyvox) 600 mg in 300 mls @ 300 mls/hr IV Q12HR [facility] Stop: 07/01/17 20:59 Last Admin: 05/06/17 09:50 Dose: 300 mls/hr Insulin Aspart (Novolog Insulin Sliding Scale) 0 units SUBQ Q6HR [facility] PRN Reason: Protocol Stop: 06/16/17 17:59 Last Admin: 05/06/17 07:22 Dose: 2 units Lorazepam (Ativan) 1 mg IVP Q4HR PRN; Protocol PRN Reason: Agitation Stop: 07/03/17 16:14 Last Admin: 05/06/17 01:35 Dose: 1 mg Metoclopramide HCl (Reglan) 5 mg IVP Q8HR [facility] Stop: 07/04/17 12:59 Last Admin: 05/05/17 20:56 Dose: 5 mg Metoprolol Tartrate (Lopressor) 25 mg PO BID [facility] Stop: 06/26/17 08:59 Last Admin: 05/06/17 09:53 Dose: 25 mg Mineral Oil (Mineral Oil 30 Ml) 30 ml NG DAILY [facility] Stop: 07/04/17 12:29 Last Admin: 05/05/17 15:26 Dose: 30 ml Miscellaneous (Probiotic Screen) 1 ea [facility] PRN PRN PRN Reason: PROTOCOL Stop: 06/14/17 09:39 Miscellaneous (Clinical Monitoring) 1 ea MC DAILY PRN PRN Reason: RENAL Stop: 06/15/17 12:48 Miscellaneous (Tpn Per Pharmacy) 1 ea [facility] PRN PRN PRN Reason: PROTOCOL Stop: 06/16/17 12:28 Miscellaneous (Vte Chemical Prophylaxis Screen/ Admission) 1 ea [facility] PRN PRN PRN Reason: PROTOCOL Stop: 07/01/17 14:44 Morphine Sulfate (Morphine) 2 mg IVP Q4HR PRN PRN Reason: pain Stop: 07/01/17 09:37 Last Admin: 05/06/17 05:12 Dose: 2 mg Ondansetron HCl (Zofran) 4 mg IVP Q6H PRN PRN Reason: Nausea / Vomiting Stop: 06/13/17 20:08 Last Admin: 05/06/17 01:34 Dose: 4 mg Pantoprazole Sodium (Protonix) 40 mg IVP BID [facility] Stop: 07/01/17 10:14 Last Admin: 05/06/17 09:52 Dose: 40 mg General: no acute distress, well developed, well nourished HEENT: atraumatic, normocephalic, PERRLA, EOMI Neck: supple, no thyromegaly Cardiovascular: S1S2, regular Lungs: clear to auscultation bilaterally, crackles Abdomen: soft, no tender, no distended Extremities: edema, no cyanosis, no clubbing Neurological: awake, alert, oriented Skin: intact - Procedures Procedures: Procedures Procedure Code Date BYPASS SIGMOID COLON TO CUTANEOUS, OPEN APPROACH [id number] 04/14/17 INSERT EMERGENCY AIRWAY 79312 04/14/17 INSERTION OF ENDOTRACHEAL AIRWAY INTO TRACHEA, VIA OPENING [id number] 04/14/17 PARTIAL REMOVAL OF COLON 99808 04/14/17 RESECTION OF SIGMOID COLON, OPEN APPROACH [id number] 04/14/17 RESPIRATORY VENTILATION, 24-96 CONSECUTIVE HOURS [id number] 04/14/17 VENT MGMT INPAT INIT DAY 59025 04/14/17 VENT MGMT INPAT SUBQ DAY 65377 04/14/17 Infectious Disease Assmt/Plan - Problem List Patient Problems: All Active Problems Abscess of sigmoid colon due to diverticulitis (Acute) K57.20 Diverticulitis of sigmoid colon (Acute) K57.32 Obesity (Acute) E66.9 Perforation of sigmoid colon due to diverticulitis (Acute) K57.20 Peritonitis (acute) generalized (Acute) K65.0 - Assessment Assessment: 1. Sepsis. febrile. 2. Diverticulitis, sigmoid diverticula to with support complicated by multiple abscesses and peritonitis. treated with expl lap. lactic asid WNL. 3. Post operatively, on ventilator. 4. Peritonitis. Likely polymicrobial. 5. Asthma exacerbation. 6. History of arthritis. 7. Distended abdomen likely post operative ileus. Rule out small bowel obstruction. 8. SEKOU. Improved. 9. Post op, paralytic ileus. improved. 10. Wrist cellulitis, worse on left with destruction of bones. X ray of the left wrist suggested osteomyelitis. 11. Wound dehiscence. 12. Vent dependent respiratory failure. 13. Left leg cellulitis. 14. Pneumonia, ( On CT scan). 15. fever might be from cellulitis, peritonitis or pneumonia. however, there is no leukocytosis, no bandemia, normal differential and no reactive thrombocytosis. - Plan Plan: Continue merrem and diflucan. Change zyvox to tygacil as patient continues to have fevers and would like to dc zyvox for its potential side effects. Blood c/s, sepsis w/u. Check procalcitonin. Nutritional Asmnt/Malnutr-PDOC - Dietary Evaluation Malnutrition Findings (Please click <Entered> for more info): Nutritional Asmnt/Malnutrition Start: 04/19/17 14: 21 Text: Status: Complete Freq: Document 04/19/17 14:21 GSUN (Rec: 04/19/17 14:58 [id number]) Nutritional Asmnt/Malnutrition Patient General Information Nutritional Screening Moderate Risk Screening Diagnosis Sepsis, diverticulitis, peritonitis Pertinent Medical Hx/Surgical Hx Asthma, diverticulosis Subjective Information 56 year old male frome home. Pt was restless, moving extremities during visit. 04/14 : sigmoid colectomy, end colostomy, abscess drainage, diffuse peritontis. 04/16: pt started PPN. 04/17: central line and started on TPN. Spoke to family at bedside, explained parenteral nutrition , family undersoto and has no further question at this time. Weight discrepancies noted in EMR, family does not know UBW , estimated nutritional needs based Current Diet Order/ Nutrition Support TPN D10% AA4.25% at 90ml/hr with IL20% 150ml, providing 1401.6kcal Pertinent Medications Dilaudid, Novolog, Culturelle, Magnesium Sulfate, Vancomycin , TPN, Morphine, Multivitamins , Zofran, Protonix, Nacl0.9% Pertinent Labs 04/14: triglycerides 106, total bilirubin 1.1H, glucose 116H 04/17: magnesium 2.5, phsophorus 3.2 04/19: magnesium 1.8L, phosphorus 2.4L, BUN 28H, creatinine 1.3, glucose 154H, total bilirubin 1.1H, triglycerides 238H Nutritional Hx/Data Height 1.7 m Height (Calculated Centimeters) 170.2 Current Weight (lbs) 95.254 kg Weight (Calculated Kilograms) 95.3 Weight (Calculated Grams) 47835.4 Griffin Body Weight 148 Weight Status Overweight GI Symptoms Skin Integrity/Comment: [place] 14. Facial non-pitting 1+, bilateral hands pitting 1+ Estimated Nutritional Goals Calories/Kcals/Kg IBW 148/67.3kg Kcals Calculated 2018-2356kcal (30-35kcal/kg) Protein Calculated 101-135g (1.5-2g/kg) Fluid: ml Per MD Nutritional Problem 1. Problem Problem Altered GI function related to Etiology abscess and perforation of sigmoid colon due to diverticulitis aeb Signs/Symptoms: post-operative, on TPN Intervention/Recommendation Comments 1. Recommend TPN D15% AA5.5% at 100ml/hr with IL20% 150ml, providing 2400ml total volume, 2052kcal, 132g protein, meeting 100% of estimated nutritional needs. Carb load 2 .6mg/kg/min (using 210lb adm weight). 2. Monitor for possible refeeding syndrome, 04/18: phsophorus 2.1L, 04/19: magnesium 1.9. 3. Monitor triglycerides, total bilirubin, glucose, renal labs. Expected Outcomes/Goals Expected Outcomes/Goals 1. Pt to meet 100% of estimated nutritional needs on TPN.
[2017-05-06] MEDS: Fluconazole 200mg/100mL 200 MG/100 ML BAG IV SCH (12:45)
[2017-05-06] MEDS: Metoclopramide 5 mg/mL 2mL Vial IVP SCH ×3 (14:00→21:03)
[2017-05-06] MEDS: TPN 10%-70% CUSTOM IV SCH (16:55)
--- NOTE | 2017-05-06 18:20 | Internal Medicine Prog Note ---
Internal Medicine Subjective - Subjective Service Date: 05/06/17 Patient seen and examined:: with staff Patient is:: non-verbal, in bed Per staff patient has:: no adverse event (ON VENT.) Internal Medicine Objective - Results Result Diagrams: 05/05/17 04:35 05/06/17 05:00 Recent Labs: Laboratory Last Values WBC 6.8 Th/cmm (4.8-10.8) D 05/05/17 04:35 RBC 3.81 Mil/cmm (4.30-5.70) L 05/05/17 04:35 Hgb 10.3 gm/dL (13.2-17.3) L 05/05/17 04:35 Hct 31.0 % (39.0-49.0) L 05/05/17 04:35 MCV 81.4 fl (80-99) 05/05/17 04:35 MCH 27.0 pg (26.0-30.0) 05/05/17 04:35 MCHC Differential 33.1 pg (28.0-36.0) 05/05/17 04:35 RDW 15.8 % (11.5-20.0) 05/05/17 04:35 Plt Count 328 Th/cmm (150-400) 05/05/17 04:35 MPV 7.1 fl 05/05/17 04:35 Neutrophils % 59.2 % (40.0-80.0) 05/05/17 04:35 Band Neutrophils % 4 % (0-10) 05/02/17 05:15 Lymphocytes % 21.4 % (20.0-50.0) 05/05/17 04:35 Monocytes % 10.3 % (2.0-10.0) H 05/05/17 04:35 Eosinophils % 8.4 % (0.0-5.0) H 05/05/17 04:35 Basophils % 0.7 % (0.0-2.0) 05/05/17 04:35 Neutrophils (Manual) 68 % (40-80) 05/02/17 05:15 Lymphocytes 14 % (20-50) L 05/02/17 05:15 Monocytes 8 % (2-10) 05/02/17 05:15 Eosinophils 6 % (0-5) H 05/02/17 05:15 Metamyelocytes 1 % (0-0) H 04/22/17 05:04 Platelet Estimate ADEQUATE (NORMAL) 05/02/17 05:15 Platelet Morphology NORMAL (NORMAL) 05/02/17 05:15 Anisocytosis 1+ 04/28/17 06:08 Microcytosis 1+ 05/02/17 05:15 RBC Morph Micro Appear ABNORMAL (NORMAL) 05/02/17 05:15 ESR > 140 mm/hr (0-20) H 04/20/17 07:00 PT 11.9 SECONDS (9.5-11.5) H 04/24/17 21:19 INR 1.13 (0.5-1.4) 04/24/17 21:19 PTT (Actin FS) 27.6 SECONDS (26.0-38.0) 04/24/17 21:19 Specimen Source Arterial 05/05/17 08:58 Sample Site Left Radial 05/05/17 08:58 pH 7.52 (7.35-7.45) H 05/05/17 08:58 pCO2 44.0 mmHg (35.0-45.0) 05/05/17 08:58 pO2 89.0 mmHg (80.0-100.0) 05/05/17 08:58 HCO3 34.1 mEq/L (20.0-26.0) H 05/05/17 08:58 Base Excess 11.7 mEq/L (-3.0-3.0) H 05/05/17 08:58 O2 Saturation 98.0 % (92.0-100.0) 05/05/17 08:58 Chau Test YES 05/05/17 08:58 Vent Rate 16 05/05/17 08:58 Inspired O2 30 05/05/17 08:58 Tidal Volume 450 05/05/17 08:58 PEEP 3 05/05/17 08:58 Pressure (ins/psv/peep) NA 05/05/17 08:58 Critical Value E.ROSEN 05/05/17 08:58 Sodium 140 mEq/L (136-145) 05/06/17 05:00 Potassium 3.6 mEq/L (3.5-5.1) 05/06/17 05:00 Chloride 104 mEq/L (98-107) 05/06/17 05:00 Carbon Dioxide 29.5 mEq/L (21.0-31.0) 05/06/17 05:00 Anion Gap 10.1 (7.0-16.0) 05/06/17 05:00 BUN 23 mg/dL (7-25) 05/06/17 05:00 Creatinine 1.0 mg/dL (0.7-1.3) 05/06/17 05:00 Est GFR ( Amer) > 60.0 ml/min (>90) 05/06/17 05:00 Est GFR (Non-Af Amer) > 60.0 ml/min 05/06/17 05:00 BUN/Creatinine Ratio 23.0 05/06/17 05:00 Glucose 190 mg/dL (70-105) H 05/06/17 05:00 POC Glucose 163 MG/DL (70 - 105) H 05/06/17 17:42 Hemoglobin A1c % 6.7 % (4.0-6.0) H 04/22/17 05:04 Whole Bld Lactic Acid 2.02 mmol/L (0.60-1.99) H* 05/06/17 06:31 Uric Acid 3.6 mg/dL (4.4-7.6) L 04/20/17 07:00 Calcium 9.0 mg/dL (8.6-10.3) 05/06/17 05:00 Phosphorus 3.1 mg/dL (2.5-5.0) 05/06/17 04:30 Magnesium 1.8 mg/dL (1.9-2.7) L 05/06/17 04:30 Total Bilirubin 0.4 mg/dL (0.3-1.0) 05/06/17 05:00 Direct Bilirubin 0.11 mg/dL (0.0-0.2) 05/02/17 05:15 AST 38 U/L (13-39) 05/06/17 05:00 ALT 16 U/L (7-52) 05/06/17 05:00 Alkaline Phosphatase 97 U/L (34-104) 05/06/17 05:00 Ammonia 26 umol/L (16-53) 04/30/17 04:35 Creatine Kinase 136 U/L (30-223) 04/14/17 14:55 Troponin I 0.01 ng/mL (0.01-0.05) 04/22/17 05:04 C-Reactive Protein 28.9 mg/dL (0.0-0.9) H 04/20/17 07:00 B-Natriuretic Peptide 85.5 pg/mL (5.0-100.0) 04/14/17 14:55 Total Protein 5.8 gm/dL (6.0-8.3) L 05/06/17 05:00 Albumin 2.0 gm/dL (4.2-5.5) L 05/06/17 05:00 Globulin 3.8 gm/dL 05/06/17 05:00 Albumin/Globulin Ratio 0.5 (1.0-1.8) L 05/06/17 05:00 Prealbumin 12 mg/dL (10-36) 05/05/17 04:35 Triglycerides 383 mg/dL (<150) H 05/05/17 04:35 Cholesterol 104 mg/dL (<200) 05/05/17 04:35 LDL Cholesterol Direct 38 mg/dL (75-193) L 04/14/17 14:55 HDL Cholesterol 13 mg/dL (23-92) L 04/14/17 14:55 Amylase 44 U/L (29-103) 05/03/17 04:40 Lipase 15 U/L (11-82) 04/14/17 14:55 Urine Source [place] 05/03/17 13:38 Urine Color YELLOW 05/03/17 13:38 Urine Clarity TURBID (CLEAR) 05/03/17 13:38 Urine pH 7.5 05/03/17 13:38 Ur Specific [place] 1.010 (1.005-1.030) 05/03/17 13:38 Urine Protein NEGATIVE mg/dL (NEGATIVE) 05/03/17 13:38 Urine Glucose (UA) NEGATIVE mg/dL (NEGATIVE) 05/03/17 13:38 Urine Ketones NEGATIVE mg/dL (NEGATIVE) 05/03/17 13:38 Urine Blood MODERATE (NEGATIVE) H 05/03/17 13:38 Urine Nitrate NEGATIVE (NEGATIVE) 05/03/17 13:38 Urine Bilirubin NEGATIVE (NEGATIVE) 05/03/17 13:38 Urine Urobilinogen 0.2 E.U./dL (0.2 - 1.0) 05/03/17 13:38 Ur Leukocyte Esterase TRACE (NEGATIVE) H 05/03/17 13:38 Urine RBC 50-100 /hpf (0-5) H 05/03/17 13:38 Urine WBC 6-10 /hpf (0-5) H 05/03/17 13:38 Ur Epithelial Cells FEW /lpf (FEW) 05/03/17 13:38 Amorphous Sediment MANY URATES (NONE SEEN) 04/14/17 15:05 Urine Bacteria FEW /hpf (NONE SEEN) 05/03/17 13:38 Vancomycin Trough 13.5 ug/mL (10-20) 04/19/17 19:20 Helicobacter pylori Ab NEGATIVE (NEGATIVE) 05/04/17 10:05 Blood Type O POSITIVE 05/02/17 07:12 Antibody Screen NEGATIVE 05/02/17 07:12 Crossmatch See Detail 05/02/17 07:12 - Physical Exam Vitals and I&O: Vital Signs Temp 99.4 F 05/06/17 08:00 Pulse 133 05/06/17 16:45 Resp 23 05/06/17 08:00 BP 120/80 05/06/17 16:25 Pulse Ox 97 05/06/17 16:45 Intake & Output 05/05/17 05/06/17 05/06/17 18:59 06:59 18:59 Intake Total 5250 1760 2566.667 Output Total 1500 1055 Balance 3750 705 2566.667 Weight (lbs) 87.906 kg 108.409 kg Intake: Intake, IV Amount 3900 500 2566.667 D5-0.45NS 1,000 ml @ 40 1000 mls/hr IV .Q24H ARIAN Rx#: [id number] Fluconazole 200mg/100mL 100 200 mg In 100 ml @ 100 mls/hr IV Q24HR [facility] Rx#: [id number] Linezolid 600mg/300mL 600 300 300 300 mg In 300 ml @ 300 mls/ hr IV Q12HR [facility] Rx#: [id number] Meropenem 1 gm In Sodium 100 200 Chloride 0.9% 100 ml @ 100 mls/hr IV Q8H [facility] Rx# :[id number] Multivitamin Inj 10 ml In 2400 2266.667 Dextrose 70% 1,740 ml In Amino Acids 10% 500 ml In Intralipids 20% 150 ml @ 100 mls/hr IV .Q24H [facility]AN Rx#:[id number] Oral 60 TPN/PPN 1200 1200 Other 150 Output: Drainage 5 Medial Abdomen 5 Urine 1500 1000 Stool 0 50 Other: Stool Characteristics Liquid Soft Soft Brown Liquid Liquid Mucoid Mucoid Active Medications: Current Medications Acetaminophen (Tylenol) 650 mg PO Q6H PRN PRN Reason: FEVER/PAIN Stop: 06/21/17 17:45 Last Admin: 05/06/17 02:54 Dose: 650 mg Albuterol/Ipratropium (Duoneb Neb) 3 ml HHN Q4HRT ARIAN Stop: 06/15/17 14:59 Last Admin: 05/06/17 16:09 Dose: 3 ml Amiodarone HCl (Cordarone) 200 mg NG BID ARIAN Stop: 06/24/17 23:14 Last Admin: 05/06/17 16:25 Dose: 200 mg Budesonide (Pulmicort) 0.5 mg HHN BIDRT ARIAN Stop: 06/15/17 18:59 Last Admin: 05/06/17 07:45 Dose: 0.5 mg Chlorhexidine Gluconate (Peridex) 15 ml MM 08,1999 [facility] Stop: 06/30/17 19:59 Last Admin: 05/06/17 09:54 Dose: 15 ml Heparin Sodium (Porcine) (Heparin) 5,000 units SUBQ Q12HR [facility]AN Stop: 07/01/17 20:59 Last Admin: 05/06/17 09:51 Dose: 5,000 units Multivitamins/Minerals 10 ml/Dextrose/ Amino Acids/Electrolytes/ Fat Emulsion Intravenous 2,400 mls @ 100 mls/hr IV .Q24H [facility]AN Stop: 06/23/17 15:59 Last Admin: 05/06/17 16:55 Dose: 100 mls/hr Dextrose/Sodium Chloride (D5-0.45ns) 1,000 mls @ 40 mls/hr IV .Q24H [facility]AN Stop: 06/23/17 15:59 Last Admin: 05/05/17 20:49 Dose: 40 mls/hr Diltiazem HCl 125 mg/ Dextrose 125 mls @ 10 mls/hr IV TITR ARIAN; 10 MG/HR PRN Reason: Protocol Stop: 06/24/17 12:41 Last Titration: 05/02/17 07:00 Dose: Infused Norepinephrine Bitartrate 4 mg (/ Dextrose) 254 mls @ 0 mls/hr IV TITR PRN; Protocol; 0 MCG/MIN PRN Reason: BP MAINTENANCE (PER PROTOCOL) Stop: 06/30/17 09:25 Last Titration: 05/02/17 07:00 Dose: Infused Meropenem 1 gm/ Sodium (Chloride) 100 mls @ 100 mls/hr IV Q8H [facility] Stop: 06/30/17 11:14 Last Admin: 05/06/17 17:05 Dose: 100 mls/hr Fluconazole (Diflucan) 200 mg in 100 mls @ 100 mls/hr IV Q24HR [facility]AN Stop: 07/01/17 12:29 Last Admin: 05/06/17 12:45 Dose: 100 mls/hr Linezolid (Zyvox) 600 mg in 300 mls @ 300 mls/hr IV Q12HR [facility] Stop: 07/01/17 20:59 Last Infusion: 05/06/17 17:03 Dose: Infused Tigecycline 50 mg/ Sodium (Chloride) 100 mls @ 100 mls/hr IV Q12H [facility] Stop: 07/05/17 21:59 Insulin Aspart (Novolog Insulin Sliding Scale) 0 units SUBQ Q6HR ARIAN PRN Reason: Protocol Stop: 06/16/17 17:59 Last Admin: 05/06/17 17:52 Dose: 2 units Lorazepam (Ativan) 1 mg IVP Q4HR PRN; Protocol PRN Reason: Agitation Stop: 07/03/17 16:14 Last Admin: 05/06/17 16:24 Dose: 1 mg Metoclopramide HCl (Reglan) 5 mg IVP Q8HR [facility] Stop: 07/04/17 12:59 Last Admin: 05/06/17 17:08 Dose: Not Given Metoprolol Tartrate (Lopressor) 25 mg PO BID [facility] Stop: 06/26/17 08:59 Last Admin: 05/06/17 16:25 Dose: 25 mg Mineral Oil (Mineral Oil 30 Ml) 30 ml NG DAILY [facility] Stop: 07/04/17 12:29 Last Admin: 05/06/17 11:00 Dose: 30 ml Miscellaneous (Probiotic Screen) 1 ea MC PRN PRN PRN Reason: PROTOCOL Stop: 06/14/17 09:39 Miscellaneous (Clinical Monitoring) 1 ea MC DAILY PRN PRN Reason: RENAL Stop: 06/15/17 12:48 Miscellaneous (Tpn Per Pharmacy) 1 ea PRN PRN PRN Reason: PROTOCOL Stop: 06/16/17 12:28 Miscellaneous (Vte Chemical Prophylaxis Screen/ Admission) 1 ea PRN PRN PRN Reason: PROTOCOL Stop: 07/01/17 14:44 Morphine Sulfate (Morphine) 2 mg IVP Q4HR PRN PRN Reason: pain Stop: 07/01/17 09:37 Last Admin: 05/06/17 05:12 Dose: 2 mg Ondansetron HCl (Zofran) 4 mg IVP Q6H PRN PRN Reason: Nausea / Vomiting Stop: 06/13/17 20:08 Last Admin: 05/06/17 01:34 Dose: 4 mg Pantoprazole Sodium (Protonix) 40 mg IVP BID ARIAN Stop: 07/01/17 10:14 Last Admin: 05/06/17 17:01 Dose: Not Given General: obese, other (ON VENT) HEENT: anicteric sclerae Neck: No JVD Lungs: congested, rales Cardiovascular: RRR, Normal S1, Normal S2, without murmur Abdomen: tender, non-distended Extremities: edema Neurological: no change - Procedures Procedures: Procedures Procedure Code Date BYPASS SIGMOID COLON TO CUTANEOUS, OPEN APPROACH [id number] 04/14/17 INSERT EMERGENCY AIRWAY 59263 04/14/17 INSERTION OF ENDOTRACHEAL AIRWAY INTO TRACHEA, VIA OPENING [id number] 04/14/17 PARTIAL REMOVAL OF COLON 70689 04/14/17 RESECTION OF SIGMOID COLON, OPEN APPROACH [id number] 04/14/17 RESPIRATORY VENTILATION, 24-96 CONSECUTIVE HOURS [id number] 04/14/17 VENT MGMT INPAT INIT DAY 87976 04/14/17 VENT MGMT INPAT SUBQ DAY 18331 04/14/17 Internal Medicine Assmt/Plan - Assessment Assessment: 1.RESPIRATORY FAILURE. 2.ANOXIC ENCEPHALOPATHY. 3.SP EXPLORATORY LAPRATOMY. 4.ANEMIA - Plan Plan: CONTINUE ON CURRENT MEDICATION AND DIET. Nutritional Asmnt/Malnutr-PDOC - Dietary Evaluation Malnutrition Findings (Please click <Entered> for more info): Nutritional Asmnt/Malnutrition Start: 04/19/17 14: 21 Text: Status: Complete Freq: Document 04/19/17 14:21 GSUN (Rec: 07/17/17 14:58 [id number]) Nutritional Asmnt/Malnutrition Patient General Information Nutritional Screening Moderate Risk Screening Diagnosis Sepsis, diverticulitis, peritonitis Pertinent Medical Hx/Surgical Hx Asthma, diverticulosis Subjective Information 56 year old male frome home. Pt was restless, moving extremities during visit. 04/14 : sigmoid colectomy, end colostomy, abscess drainage, diffuse peritontis. 04/16: pt started PPN. 04/17: central line and started on TPN. Spoke to family at bedside, explained parenteral nutrition , family undersoto and has no further question at this time. Weight discrepancies noted in EMR, family does not know UBW , estimated nutritional needs based Current Diet Order/ Nutrition Support TPN D10% AA4.25% at 90ml/hr with IL20% 150ml, providing 1401.6kcal Pertinent Medications Dilaudid, Novolog, Culturelle, Magnesium Sulfate, Vancomycin , TPN, Morphine, Multivitamins , Zofran, Protonix, Nacl0.9% Pertinent Labs 04/14: triglycerides 106, total bilirubin 1.1H, glucose 116H 04/17: magnesium 2.5, phsophorus 3.2 04/19: magnesium 1.8L, phosphorus 2.4L, BUN 28H, creatinine 1.3, glucose 154H, total bilirubin 1.1H, triglycerides 238H Nutritional Hx/Data Height 1.7 m Height (Calculated Centimeters) 170.2 Current Weight (lbs) 95.254 kg Weight (Calculated Kilograms) 95.3 Weight (Calculated Grams) 86294.4 [place] Body Weight 148 Weight Status Overweight GI Symptoms Skin Integrity/Comment: [place] 14. Facial non-pitting 1+, bilateral hands pitting 1+ Estimated Nutritional Goals Calories/Kcals/Kg IBW 148/67.3kg Kcals Calculated 2019-2356kcal (30-35kcal/kg) Protein Calculated 101-135g (1.5-2g/kg) Fluid: ml Per MD Nutritional Problem 1. Problem Problem Altered GI function related to Etiology abscess and perforation of sigmoid colon due to diverticulitis aeb Signs/Symptoms: post-operative, on TPN Intervention/Recommendation Comments 1. Recommend TPN D15% AA5.5% at 100ml/hr with IL20% 150ml, providing 2400ml total volume, 2052kcal, 132g protein, meeting 100% of estimated nutritional needs. Carb load 2 .6mg/kg/min (using 210lb adm weight). 2. Monitor for possible refeeding syndrome, 04/18: phsophorus 2.1L, 04/19: magnesium 1.9. 3. Monitor triglycerides, total bilirubin, glucose, renal labs. Expected Outcomes/Goals Expected Outcomes/Goals 1. Pt to meet 100% of estimated nutritional needs on TPN.
--- NOTE | 2017-05-06 20:15 | General Progress Note ---
Subjective - Review of Systems Service Date: 05/06/17 Subjective: encephalopathy, obtunded, nonverbal Objective - Results Result Diagrams: 05/05/17 04:35 05/06/17 05:00 Recent Labs: Laboratory Last Values WBC 6.8 Th/cmm (4.8-10.8) D 05/05/17 04:35 RBC 3.81 Mil/cmm (4.30-5.70) L 05/05/17 04:35 Hgb 10.3 gm/dL (13.2-17.3) L 05/05/17 04:35 Hct 31.0 % (39.0-49.0) L 05/05/17 04:35 MCV 81.4 fl (80-99) 05/05/17 04:35 MCH 27.0 pg (26.0-30.0) 05/05/17 04:35 MCHC Differential 33.1 pg (28.0-36.0) 05/05/17 04:35 RDW 15.8 % (11.5-20.0) 05/05/17 04:35 Plt Count 328 Th/cmm (150-400) 05/05/17 04:35 MPV 7.1 fl 05/05/17 04:35 Neutrophils % 59.2 % (40.0-80.0) 05/05/17 04:35 Band Neutrophils % 4 % (0-10) 05/02/17 05:15 Lymphocytes % 21.4 % (20.0-50.0) 05/05/17 04:35 Monocytes % 10.3 % (2.0-10.0) H 05/05/17 04:35 Eosinophils % 8.4 % (0.0-5.0) H 05/05/17 04:35 Basophils % 0.7 % (0.0-2.0) 05/05/17 04:35 Neutrophils (Manual) 68 % (40-80) 05/02/17 05:15 Lymphocytes 14 % (20-50) L 05/02/17 05:15 Monocytes 8 % (2-10) 05/02/17 05:15 Eosinophils 6 % (0-5) H 05/02/17 05:15 Metamyelocytes 1 % (0-0) H 04/22/17 05:04 Platelet Estimate ADEQUATE (NORMAL) 05/02/17 05:15 Platelet Morphology NORMAL (NORMAL) 05/02/17 05:15 Anisocytosis 1+ 04/28/17 06:08 Microcytosis 1+ 05/02/17 05:15 RBC Morph Micro Appear ABNORMAL (NORMAL) 05/02/17 05:15 ESR > 140 mm/hr (0-20) H 04/20/17 07:00 PT 11.9 SECONDS (9.5-11.5) H 04/24/17 21:19 INR 1.13 (0.5-1.4) 04/24/17 21:19 PTT (Actin FS) 27.6 SECONDS (26.0-38.0) 04/24/17 21:19 Specimen Source Arterial 05/05/17 08:58 Sample Site Left Radial 05/05/17 08:58 pH 7.52 (7.35-7.45) H 05/05/17 08:58 pCO2 44.0 mmHg (35.0-45.0) 05/05/17 08:58 pO2 89.0 mmHg (80.0-100.0) 05/05/17 08:58 HCO3 34.1 mEq/L (20.0-26.0) H 05/05/17 08:58 Base Excess 11.7 mEq/L (-3.0-3.0) H 05/05/17 08:58 O2 Saturation 98.0 % (92.0-100.0) 05/05/17 08:58 Chau Test YES 05/05/17 08:58 Vent Rate 16 05/05/17 08:58 Inspired O2 30 05/05/17 08:58 Tidal Volume 450 05/05/17 08:58 PEEP 3 05/05/17 08:58 Pressure (ins/psv/peep) NA 05/05/17 08:58 Critical Value E.ROSEN 05/05/17 08:58 Sodium 140 mEq/L (136-145) 05/06/17 05:00 Potassium 3.6 mEq/L (3.5-5.1) 05/06/17 05:00 Chloride 104 mEq/L (98-107) 05/06/17 05:00 Carbon Dioxide 29.5 mEq/L (21.0-31.0) 05/06/17 05:00 Anion Gap 10.1 (7.0-16.0) 05/06/17 05:00 BUN 23 mg/dL (7-25) 05/06/17 05:00 Creatinine 1.0 mg/dL (0.7-1.3) 05/06/17 05:00 Est GFR ( Amer) > 60.0 ml/min (>90) 05/06/17 05:00 Est GFR (Non-Af Amer) > 60.0 ml/min 05/06/17 05:00 BUN/Creatinine Ratio 23.0 05/06/17 05:00 Glucose 190 mg/dL (70-105) H 05/06/17 05:00 POC Glucose 163 MG/DL (70 - 105) H 05/06/17 17:42 Hemoglobin A1c % 6.7 % (4.0-6.0) H 04/22/17 05:04 Whole Bld Lactic Acid 2.02 mmol/L (0.60-1.99) H* 05/06/17 06:31 Uric Acid 3.6 mg/dL (4.4-7.6) L 04/20/17 07:00 Calcium 9.0 mg/dL (8.6-10.3) 05/06/17 05:00 Phosphorus 3.1 mg/dL (2.5-5.0) 05/06/17 04:30 Magnesium 1.8 mg/dL (1.9-2.7) L 05/06/17 04:30 Total Bilirubin 0.4 mg/dL (0.3-1.0) 05/06/17 05:00 Direct Bilirubin 0.11 mg/dL (0.0-0.2) 05/02/17 05:15 AST 38 U/L (13-39) 05/06/17 05:00 ALT 16 U/L (7-52) 05/06/17 05:00 Alkaline Phosphatase 97 U/L (34-104) 05/06/17 05:00 Ammonia 26 umol/L (16-53) 04/30/17 04:35 Creatine Kinase 136 U/L (30-223) 04/14/17 14:55 Troponin I 0.01 ng/mL (0.01-0.05) 04/22/17 05:04 C-Reactive Protein 28.9 mg/dL (0.0-0.9) H 04/20/17 07:00 B-Natriuretic Peptide 85.5 pg/mL (5.0-100.0) 04/14/17 14:55 Total Protein 5.8 gm/dL (6.0-8.3) L 05/06/17 05:00 Albumin 2.0 gm/dL (4.2-5.5) L 05/06/17 05:00 Globulin 3.8 gm/dL 05/06/17 05:00 Albumin/Globulin Ratio 0.5 (1.0-1.8) L 05/06/17 05:00 Prealbumin 12 mg/dL (10-36) 05/05/17 04:35 Triglycerides 383 mg/dL (<150) H 05/05/17 04:35 Cholesterol 104 mg/dL (<200) 05/05/17 04:35 LDL Cholesterol Direct 38 mg/dL (75-193) L 04/14/17 14:55 HDL Cholesterol 13 mg/dL (23-92) L 04/14/17 14:55 Amylase 44 U/L (29-103) 05/03/17 04:40 Lipase 15 U/L (11-82) 04/14/17 14:55 Urine Source SEN PORT 05/03/17 13:38 Urine Color YELLOW 05/03/17 13:38 Urine Clarity TURBID (CLEAR) 05/03/17 13:38 Urine pH 7.5 05/03/17 13:38 Ur Specific [place] 1.010 (1.005-1.030) 05/03/17 13:38 Urine Protein NEGATIVE mg/dL (NEGATIVE) 05/03/17 13:38 Urine Glucose (UA) NEGATIVE mg/dL (NEGATIVE) 05/03/17 13:38 Urine Ketones NEGATIVE mg/dL (NEGATIVE) 05/03/17 13:38 Urine Blood MODERATE (NEGATIVE) H 05/03/17 13:38 Urine Nitrate NEGATIVE (NEGATIVE) 05/03/17 13:38 Urine Bilirubin NEGATIVE (NEGATIVE) 05/03/17 13:38 Urine Urobilinogen 0.2 E.U./dL (0.2 - 1.0) 05/03/17 13:38 Ur Leukocyte Esterase TRACE (NEGATIVE) H 05/03/17 13:38 Urine RBC 50-100 /hpf (0-5) H 05/03/17 13:38 Urine WBC 6-10 /hpf (0-5) H 05/03/17 13:38 Ur Epithelial Cells FEW /lpf (FEW) 05/03/17 13:38 Amorphous Sediment MANY URATES (NONE SEEN) 04/14/17 15:05 Urine Bacteria FEW /hpf (NONE SEEN) 05/03/17 13:38 Vancomycin Trough 13.5 ug/mL (10-20) 04/19/17 19:20 Helicobacter pylori Ab NEGATIVE (NEGATIVE) 05/04/17 10:05 Blood Type O POSITIVE 05/02/17 07:12 Antibody Screen NEGATIVE 05/02/17 07:12 Crossmatch See Detail 05/02/17 07:12 - Physical Exam Vitals and I&O: Vital Signs Temp 99.4 F 05/06/17 08:00 Pulse 137 05/06/17 19:30 Resp 23 05/06/17 08:00 BP 120/80 05/06/17 16:25 Pulse Ox 99 05/06/17 19:30 Intake & Output 05/06/17 05/06/17 05/07/17 06:59 18:59 06:59 Intake Total 1760 2566.667 Output Total 1055 Balance 705 2566.667 Weight (lbs) 108.409 kg Intake: Intake, IV Amount 500 2566.667 Linezolid 600mg/300mL 600 300 300 mg In 300 ml @ 300 mls/ hr IV Q12HR ARIAN Rx#: [id number] Meropenem 1 gm In Sodium 200 Chloride 0.9% 100 ml @ 100 mls/hr IV Q8H ARIAN Rx# :[id number] Multivitamin Inj 10 ml In 2266.667 Dextrose 70% 1,740 ml In Amino Acids 10% 500 ml In Intralipids 20% 150 ml @ 100 mls/hr IV .Q24H ARIAN Rx#:[id number] Oral 60 TPN/PPN 1200 Output: Drainage 5 Medial Abdomen 5 Urine 1000 Stool 50 Other: Stool Characteristics Soft Soft Liquid Liquid Mucoid Mucoid Active Medications: Current Medications Acetaminophen (Tylenol) 650 mg PO Q6H PRN PRN Reason: FEVER/PAIN Stop: 06/21/17 17:45 Last Admin: 05/06/17 18:33 Dose: 650 mg Albuterol/Ipratropium (Duoneb Neb) 3 ml HHN Q4HRT ARIAN Stop: 06/15/17 14:59 Last Admin: 05/06/17 16:09 Dose: 3 ml Amiodarone HCl (Cordarone) 200 mg NG BID [facility] Stop: 06/24/17 23:14 Last Admin: 05/06/17 16:25 Dose: 200 mg Budesonide (Pulmicort) 0.5 mg HHN BIDRT [facility] Stop: 06/15/17 18:59 Last Admin: 05/06/17 07:45 Dose: 0.5 mg Chlorhexidine Gluconate (Peridex) 15 ml MM 0800,1999 [facility] Stop: 06/30/17 19:59 Last Admin: 05/06/17 20:00 Dose: 15 ml Heparin Sodium (Porcine) (Heparin) 5,000 units SUBQ Q12HR [facility] Stop: 07/01/17 20:59 Last Admin: 05/06/17 09:51 Dose: 5,000 units Multivitamins/Minerals 10 ml/Dextrose/ Amino Acids/Electrolytes/ Fat Emulsion Intravenous 2,400 mls @ 100 mls/hr IV .Q24H [facility] Stop: 06/23/17 15:59 Last Admin: 05/06/17 16:55 Dose: 100 mls/hr Dextrose/Sodium Chloride (D5-0.45ns) 1,000 mls @ 40 mls/hr IV .Q24H [facility] Stop: 06/23/17 15:59 Last Admin: 05/05/17 20:49 Dose: 40 mls/hr Diltiazem HCl 125 mg/ Dextrose 125 mls @ 10 mls/hr IV TITR ARIAN; 10 MG/HR PRN Reason: Protocol Stop: 06/24/17 12:41 Last Titration: 05/02/17 07:00 Dose: Infused Norepinephrine Bitartrate 4 mg (/ Dextrose) 254 mls @ 0 mls/hr IV TITR PRN; Protocol; 0 MCG/MIN PRN Reason: BP MAINTENANCE (PER PROTOCOL) Stop: 06/30/17 09:25 Last Titration: 05/02/17 07:00 Dose: Infused Meropenem 1 gm/ Sodium (Chloride) 100 mls @ 100 mls/hr IV Q8H [facility] Stop: 06/30/17 11:14 Last Admin: 05/06/17 17:05 Dose: 100 mls/hr Fluconazole (Diflucan) 200 mg in 100 mls @ 100 mls/hr IV Q24HR [facility]AN Stop: 07/01/17 12:29 Last Admin: 05/06/17 12:45 Dose: 100 mls/hr Linezolid (Zyvox) 600 mg in 300 mls @ 300 mls/hr IV Q12HR [facility]AN Stop: 07/01/17 20:59 Last Infusion: 05/06/17 17:03 Dose: Infused Tigecycline 50 mg/ Sodium (Chloride) 100 mls @ 100 mls/hr IV Q12H [facility]AN Stop: 07/05/17 21:59 Insulin Aspart (Novolog Insulin Sliding Scale) 0 units SUBQ Q6HR ARIAN PRN Reason: Protocol Stop: 06/16/17 17:59 Last Admin: 05/06/17 17:52 Dose: 2 units Lorazepam (Ativan) 1 mg IVP Q4HR PRN; Protocol PRN Reason: Agitation Stop: 07/03/17 16:14 Last Admin: 05/06/17 16:24 Dose: 1 mg Metoclopramide HCl (Reglan) 5 mg IVP Q8HR [facility]AN Stop: 07/04/17 12:59 Last Admin: 05/06/17 17:08 Dose: Not Given Metoprolol Tartrate (Lopressor) 25 mg PO BID [facility]AN Stop: 06/26/17 08:59 Last Admin: 05/06/17 16:25 Dose: 25 mg Mineral Oil (Mineral Oil 30 Ml) 30 ml NG DAILY [facility]AN Stop: 07/04/17 12:29 Last Admin: 05/06/17 11:00 Dose: 30 ml Miscellaneous (Probiotic Screen) 1 ea MC PRN PRN PRN Reason: PROTOCOL Stop: 06/14/17 09:39 Miscellaneous (Clinical Monitoring) 1 ea MC DAILY PRN PRN Reason: RENAL Stop: 06/15/17 12:48 Miscellaneous (Tpn Per Pharmacy) 1 ea PRN PRN PRN Reason: PROTOCOL Stop: 06/16/17 12:28 Miscellaneous (Vte Chemical Prophylaxis Screen/ Admission) 1 ea MC PRN PRN PRN Reason: PROTOCOL Stop: 07/01/17 14:44 Morphine Sulfate (Morphine) 2 mg IVP Q4HR PRN PRN Reason: pain Stop: 07/01/17 09:37 Last Admin: 05/06/17 19:54 Dose: 2 mg Ondansetron HCl (Zofran) 4 mg IVP Q6H PRN PRN Reason: Nausea / Vomiting Stop: 06/13/17 20:08 Last Admin: 05/06/17 01:34 Dose: 4 mg Pantoprazole Sodium (Protonix) 40 mg IVP BID ARIAN Stop: 07/01/17 10:14 Last Admin: 05/06/17 17:01 Dose: Not Given General: Mild distress HEENT: Atraumatic, PERRLA, EOMI, Mucous membr. moist/pink, Other (oral endotracheal tube,NG tube+) Neck: Supple, +2 carotid pulse wo bruit Cardiovascular: Regular rate, Normal S1, Normal S2 Lungs: Other (diffuse rhonchi.) Abdomen: Soft, Other ( wound VAC anterior open abdominal wall wound. L colostomy retracted but still functional w/ stool output.) Extremities: Other (no edema and cyanosis.) Neurological: Reflexes 2+, Other (Patient is intubated and sedated) Psych/Mental Status: Other (Sedated) - Procedures Procedures: Procedures Procedure Code Date BYPASS SIGMOID COLON TO CUTANEOUS, OPEN APPROACH [id number] 04/14/17 INSERT EMERGENCY AIRWAY 76076 04/14/17 INSERTION OF ENDOTRACHEAL AIRWAY INTO TRACHEA, VIA OPENING [id number] 04/14/17 PARTIAL REMOVAL OF COLON 56305 04/14/17 RESECTION OF SIGMOID COLON, OPEN APPROACH [id number] 04/14/17 RESPIRATORY VENTILATION, 24-96 CONSECUTIVE HOURS [id number] 04/14/17 VENT MGMT INPAT INIT DAY 47679 04/14/17 VENT MGMT INPAT SUBQ DAY 48185 04/14/17 Assessment/Plan - Problem List Patient Problems: All Active Problems Abscess of sigmoid colon due to diverticulitis (Acute) K57.20 Diverticulitis of sigmoid colon (Acute) K57.32 Obesity (Acute) E66.9 Perforation of sigmoid colon due to diverticulitis (Acute) K57.20 Peritonitis (acute) generalized (Acute) K65.0 - Assessment Assessment: POD#22; s/p ex lap, sigmoid colectomy, drainage of peritonitis, lysis adhesions , ROLANDO drain placement 04/14 icu status encephalopathic, confused, obtunded, intubated. continue IVfluids +TPN renal insufficiency improved, normal BUN/creat dvt prophylaxis Lovenox SQ colostomy end necrosed and sloughed, severely retracted, but functional w/ stool output..... poor candidate for revision of colostomy CT results noted open abd wound, wound vac in place, changed q 3days, wound marge, still some yellow slough. continue iv abx. sen cath stricts ins and out supportive care.... s/w family; guarded prognosis. off vasopressors. EGD 05/04 results noted by Reyes/GI peptic ulcer disease, NGT trauma tachycardia, intermittent fevers, normal WBC multiple prior CT abd/pelvis....postop changes, no obvious drainable intra-abd abscess or collections restarted TF via NGT, check residuals talked with Reyes/GI regarding EGD/PEG for nutritional enteric support may need tracheostomy. [place] eval? Nutritional Asmnt/Malnutr-PDOC - Dietary Evaluation Malnutrition Findings (Please click <Entered> for more info): Nutritional Asmnt/Malnutrition Start: 04/19/17 14: 21 Text: Status: Complete Freq: Document 04/19/17 14:21 GSUN (Rec: 04/19/17 14:58 [id number]) Nutritional Asmnt/Malnutrition Patient General Information Nutritional Screening Moderate Risk Screening Diagnosis Sepsis, diverticulitis, peritonitis Pertinent Medical Hx/Surgical Hx Asthma, diverticulosis Subjective Information 56 year old male frome home. Pt was restless, moving extremities during visit. 04/14 : sigmoid colectomy, end colostomy, abscess drainage, diffuse peritontis. 04/16: pt started PPN. 04/17: central line and started on TPN. Spoke to family at bedside, explained parenteral nutrition , family undersoto and has no further question at this time. Weight discrepancies noted in EMR, family does not know UBW , estimated nutritional needs based Current Diet Order/ Nutrition Support TPN D10% AA4.25% at 90ml/hr with IL20% 150ml, providing 1401.6kcal Pertinent Medications Dilaudid, Novolog, Culturelle, Magnesium Sulfate, Vancomycin , TPN, Morphine, Multivitamins , Zofran, Protonix, Nacl0.9% Pertinent Labs 04/14: triglycerides 106, total bilirubin 1.1H, glucose 116H 04/17: magnesium 2.5, phsophorus 3.2 04/19: magnesium 1.8L, phosphorus 2.4L, BUN 28H, creatinine 1.3, glucose 154H, total bilirubin 1.1H, triglycerides 238H Nutritional Hx/Data Height 1.7 m Height (Calculated Centimeters) 170.2 Current Weight (lbs) 95.254 kg Weight (Calculated Kilograms) 95.3 Weight (Calculated Grams) 58298.4 Bruce Body Weight 148 Weight Status Overweight GI Symptoms Skin Integrity/Comment: [place] 14. Facial non-pitting 1+, bilateral hands pitting 1+ Estimated Nutritional Goals Calories/Kcals/Kg IBW 148/67.3kg Kcals Calculated 2018-2356kcal (30-35kcal/kg) Protein Calculated 101-135g (1.5-2g/kg) Fluid: ml Per MD Nutritional Problem 1. Problem Problem Altered GI function related to Etiology abscess and perforation of sigmoid colon due to diverticulitis aeb Signs/Symptoms: post-operative, on TPN Intervention/Recommendation Comments 1. Recommend TPN D15% AA5.5% at 100ml/hr with IL20% 150ml, providing 2400ml total volume, 2052kcal, 132g protein, meeting 100% of estimated nutritional needs. Carb load 2 .6mg/kg/min (using 210lb adm weight). 2. Monitor for possible refeeding syndrome, 04/18: phsophorus 2.1L, 04/19: magnesium 1.9. 3. Monitor triglycerides, total bilirubin, glucose, renal labs. Expected Outcomes/Goals Expected Outcomes/Goals 1. Pt to meet 100% of estimated nutritional needs on TPN.
--- NOTE | 2017-05-06 21:29 | Progress Notes ---
DATE: 05/06/2017 PROBLEM LIST: 1. Persistent respiratory failure. 2. Persistent tachypnea, chest x-ray is clear. 3. Severe obstructive sleep apnea syndrome. 4. Abdominal sepsis. SYMPTOMS: Nil, slightly tachypneic, no respiratory distress. PHYSICAL EXAMINATION: VITAL SIGNS: Temperature is 97, heart rate 110-127, saturation is 98. NECK: Veins not visualized. CHEST: Shows occasional rhonchi with diminished air entry. HEART: Regular. ABDOMEN: Soft, nontender. LABORATORY DATA: The patient's electrolytes are okay. ASSESSMENT: The patient clinically very difficult to wean, persistent tachypneic, tachycardic, despite normal chest x-ray, probably encephalopathy and/or secondary to the abdominal sepsis, though clinically looking better. PLANS AND SUGGESTIONS: We will go ahead and continue current treatment. Repeat chest x-ray, CBC tomorrow to see how it is and go from there. JOB# [id number]
[2017-05-07] MEDS: INSULIN ASPART SLIDING SCALE 100 UNITS/ML UNIT SUBQ SCH ×5 (00:08→23:46)
[2017-05-07] MEDS: Albuterol/Ipratropium Neb 3 ML AERS HHN SCH ×6 (02:38→22:36)
[2017-05-07] MEDS: Meropenem 1 GM in Sodium Chloride 0.9% 100 ML IV SCH ×3 (02:52→20:45)
[2017-05-07] MEDS: Metoclopramide 5 mg/mL 2mL Vial IVP SCH ×2 (04:44→20:50)
[2017-05-07 05:59] LABS: % BASOPHILS 0.7 % (0.0-2.0); % EOSINOPHILS 7.9 % (0.0-5.0); % LYMPHOCYTES 20.6 % (20.0-50.0); % MONOCYTES 10.3 % (2.0-10.0); % NEUTROPHILS 60.5 % (40.0-80.0); HEMATOCRIT 27.9 % (39.0-49.0); HEMOGLOBIN 9.4 gm/dL (13.2-17.3); MEAN CORPUSCULAR HEMOGLOBIN 27.4 pg (26.0-30.0); MEAN CORPUSCULAR HGB CONC 33.8 pg (28.0-36.0); NEUTROPHILE ABSOLUTE 4.4 Th/cmm (1.8-8.0); RED BLOOD COUNT 3.44 Mil/cmm (4.30-5.70); RED CELL DISTRIBUTION WIDTH 16.5 % (11.5-20.0); WHITE BLOOD COUNT 7.4 Th/cmm (4.8-10.8)
[2017-05-07 06:02] LABS: PLATELET COUNT 245 Th/cmm (150-400)
[2017-05-07 06:08] LABS: ALB/GLOB RATIO 0.5 (1.0-1.8); ALKALINE PHOSPHATASE 94 U/L (34-104); ANION GAP 8.8 (7.0-16.0); BILIRUBIN,TOTAL 0.4 mg/dL (0.3-1.0); BUN - UREA NITROGEN 27 mg/dL (7-25); CALCIUM SERUM 9.4 mg/dL (8.6-10.3); CHLORIDE 106 mEq/L (98-107); GLUCOSE 153 mg/dL (70-105); LIPASE 178 U/L (11-82); MAGNESIUM 1.9 mg/dL (1.9-2.7); PHOSPHOROUS 4.7 mg/dL (2.5-5.0); POTASSIUM SERUM 3.8 mEq/L (3.5-5.1); SGOT 52 U/L (13-39); SGPT/ALT 20 U/L (7-52); SODIUM SERUM 141 mEq/L (136-145)
[2017-05-07] MEDS: Budesonide 0.5 Mg/2 mL Ud HHN SCH ×2 (07:20→18:45)
[2017-05-07] MEDS: Chlorhexidine Gluconate 0.12% 15mL Mouthwash MM SCH ×2 (08:25→21:18)
[2017-05-07] MEDS: Linezolid 600mg/300mL 600 MG/300 ML BAG IV SCH (08:53)
--- NOTE | 2017-05-07 09:15 | Diagnostic Imaging Report ---
Portable chest x-ray HISTORY: Shortness of breath The heart size appears generous. Allowing for a poor inspiration, no acute focal pulmonary processes are seen. An endotracheal tube tip is approximate 5.0 cm above the ondina. IMPRESSION: 1. Allowing for a poor inspiration, no definite focal pulmonary processes.
[2017-05-07 09:51] LABS: ABG SOURCE Arterial; ALLEN TEST YES; BE(B) 8.4 mEq/L (-3.0-3.0); HCO3 31.5 mEq/L (20.0-26.0); MECH RATE 16; pH 7.46 (7.35-7.45)
[2017-05-07 09:52] LABS: FIO2 30; MECH VT 450
[2017-05-07] MEDS ORDERED: Diltiazem 5 mg/mL 5mL Vial IVP STA (10:52)
[2017-05-07] MEDS: Fluconazole 200mg/100mL 200 MG/100 ML BAG IV SCH (13:00)
--- NOTE | 2017-05-07 15:33 | Infectious Disease Prog Note ---
Infectious Disease Subjective - Review of Systems Service Date: 05/07/17 Subjective: No new change. Continues to have Intermittent fevers. Intubated nasally, on the ventilator support. on ngt intermittent suction. Infectious Disease Objective - Results Result Diagrams: 05/07/17 04:45 05/07/17 04:45 Recent Labs: Laboratory Last Values WBC 7.4 Th/cmm (4.8-10.8) 05/07/17 04:45 RBC 3.44 Mil/cmm (4.30-5.70) L 05/07/17 04:45 Hgb 9.4 gm/dL (13.2-17.3) L 05/07/17 04:45 Hct 27.9 % (39.0-49.0) L 05/07/17 04:45 MCV 81.0 fl (80-99) 05/07/17 04:45 MCH 27.4 pg (26.0-30.0) 05/07/17 04:45 MCHC Differential 33.8 pg (28.0-36.0) 05/07/17 04:45 RDW 16.5 % (11.5-20.0) 05/07/17 04:45 Plt Count 245 Th/cmm (150-400) D 05/07/17 04:45 MPV 7.0 fl 05/07/17 04:45 Neutrophils % 60.5 % (40.0-80.0) 05/07/17 04:45 Band Neutrophils % 4 % (0-10) 05/02/17 05:15 Lymphocytes % 20.6 % (20.0-50.0) 05/07/17 04:45 Monocytes % 10.3 % (2.0-10.0) H 05/07/17 04:45 Eosinophils % 7.9 % (0.0-5.0) H 05/07/17 04:45 Basophils % 0.7 % (0.0-2.0) 05/07/17 04:45 Neutrophils (Manual) 68 % (40-80) 05/02/17 05:15 Lymphocytes 14 % (20-50) L 05/02/17 05:15 Monocytes 8 % (2-10) 05/02/17 05:15 Eosinophils 6 % (0-5) H 05/02/17 05:15 Metamyelocytes 1 % (0-0) H 04/22/17 05:04 Platelet Estimate ADEQUATE (NORMAL) 05/02/17 05:15 Platelet Morphology NORMAL (NORMAL) 05/02/17 05:15 Anisocytosis 1+ 04/28/17 06:08 Microcytosis 1+ 05/02/17 05:15 RBC Morph Micro Appear ABNORMAL (NORMAL) 05/02/17 05:15 ESR > 140 mm/hr (0-20) H 04/20/17 07:00 PT 11.9 SECONDS (9.5-11.5) H 04/24/17 21:19 INR 1.13 (0.5-1.4) 04/24/17 21:19 PTT (Actin FS) 27.6 SECONDS (26.0-38.0) 04/24/17 21:19 Specimen Source Arterial 05/07/17 09:45 Sample Site Right Radial 05/07/17 09:45 pH 7.46 (7.35-7.45) H 05/07/17 09:45 pCO2 47.0 mmHg (35.0-45.0) H 05/07/17 09:45 pO2 126.0 mmHg (80.0-100.0) H 05/07/17 09:45 HCO3 31.5 mEq/L (20.0-26.0) H 05/07/17 09:45 Base Excess 8.4 mEq/L (-3.0-3.0) H 05/07/17 09:45 O2 Saturation 99.0 % (92.0-100.0) 05/07/17 09:45 Chau Test YES 05/07/17 09:45 Vent Rate 16 05/07/17 09:45 Inspired O2 30 05/07/17 09:45 Tidal Volume 450 05/07/17 09:45 PEEP 3 05/07/17 09:45 Pressure (ins/psv/peep) NA 05/07/17 09:45 Critical Value E.ROSEN 05/07/17 09:45 Sodium 141 mEq/L (136-145) 05/07/17 04:45 Potassium 3.8 mEq/L (3.5-5.1) 05/07/17 04:45 Chloride 106 mEq/L (98-107) 05/07/17 04:45 Carbon Dioxide 30.0 mEq/L (21.0-31.0) 05/07/17 04:45 Anion Gap 8.8 (7.0-16.0) 05/07/17 04:45 BUN 27 mg/dL (7-25) H 05/07/17 04:45 Creatinine 1.0 mg/dL (0.7-1.3) 05/07/17 04:45 Est GFR ( Amer) > 60.0 ml/min (>90) 05/07/17 04:45 Est GFR (Non-Af Amer) > 60.0 ml/min 05/07/17 04:45 BUN/Creatinine Ratio 27.0 05/07/17 04:45 Glucose 153 mg/dL (70-105) H 05/07/17 04:45 POC Glucose 159 MG/DL (70 - 105) H 05/07/17 12:10 Hemoglobin A1c % 6.7 % (4.0-6.0) H 04/22/17 05:04 Whole Bld Lactic Acid 1.68 mmol/L (0.60-1.99) 05/07/17 04:45 Uric Acid 3.6 mg/dL (4.4-7.6) L 04/20/17 07:00 Calcium 9.4 mg/dL (8.6-10.3) 05/07/17 04:45 Phosphorus 4.7 mg/dL (2.5-5.0) 05/07/17 04:45 Magnesium 1.9 mg/dL (1.9-2.7) 05/07/17 04:45 Total Bilirubin 0.4 mg/dL (0.3-1.0) 05/07/17 04:45 Direct Bilirubin 0.11 mg/dL (0.0-0.2) 05/02/17 05:15 AST 52 U/L (13-39) H 05/07/17 04:45 ALT 20 U/L (7-52) 05/07/17 04:45 Alkaline Phosphatase 94 U/L (34-104) 05/07/17 04:45 Ammonia 31 umol/L (16-53) 05/07/17 04:45 Creatine Kinase 136 U/L (30-223) 04/14/17 14:55 Troponin I 0.01 ng/mL (0.01-0.05) 04/22/17 05:04 C-Reactive Protein 23.6 mg/dL (0.0-0.9) H 05/07/17 04:45 B-Natriuretic Peptide 85.5 pg/mL (5.0-100.0) 04/14/17 14:55 Total Protein 6.6 gm/dL (6.0-8.3) 05/07/17 04:45 Albumin 2.2 gm/dL (4.2-5.5) L 05/07/17 04:45 Globulin 4.4 gm/dL 05/07/17 04:45 Albumin/Globulin Ratio 0.5 (1.0-1.8) L 05/07/17 04:45 Prealbumin 12 mg/dL (10-36) 05/05/17 04:35 Triglycerides 383 mg/dL (<150) H 05/05/17 04:35 Cholesterol 104 mg/dL (<200) 05/05/17 04:35 LDL Cholesterol Direct 38 mg/dL (75-193) L 04/14/17 14:55 HDL Cholesterol 13 mg/dL (23-92) L 04/14/17 14:55 Amylase 44 U/L (29-103) 05/03/17 04:40 Lipase 178 U/L (11-82) H 05/07/17 04:45 Urine Source [place] 05/03/17 13:38 Urine Color YELLOW 05/03/17 13:38 Urine Clarity TURBID (CLEAR) 05/03/17 13:38 Urine pH 7.5 05/03/17 13:38 Ur Specific [place] 1.010 (1.005-1.030) 05/03/17 13:38 Urine Protein NEGATIVE mg/dL (NEGATIVE) 05/03/17 13:38 Urine Glucose (UA) NEGATIVE mg/dL (NEGATIVE) 05/03/17 13:38 Urine Ketones NEGATIVE mg/dL (NEGATIVE) 05/03/17 13:38 Urine Blood MODERATE (NEGATIVE) H 05/03/17 13:38 Urine Nitrate NEGATIVE (NEGATIVE) 05/03/17 13:38 Urine Bilirubin NEGATIVE (NEGATIVE) 05/03/17 13:38 Urine Urobilinogen 0.2 E.U./dL (0.2 - 1.0) 05/03/17 13:38 Ur Leukocyte Esterase TRACE (NEGATIVE) H 05/03/17 13:38 Urine RBC 50-100 /hpf (0-5) H 05/03/17 13:38 Urine WBC 6-10 /hpf (0-5) H 05/03/17 13:38 Ur Epithelial Cells FEW /lpf (FEW) 05/03/17 13:38 Amorphous Sediment MANY URATES (NONE SEEN) 04/14/17 15:05 Urine Bacteria FEW /hpf (NONE SEEN) 05/03/17 13:38 Vancomycin Trough 13.5 ug/mL (10-20) 04/19/17 19:20 Helicobacter pylori Ab NEGATIVE (NEGATIVE) 05/04/17 10:05 Blood Type O POSITIVE 05/02/17 07:12 Antibody Screen NEGATIVE 05/02/17 07:12 Crossmatch See Detail 05/02/17 07:12 - Physical Exam Vitals and I&O: Vital Signs Temp 99.9 F 05/07/17 12:00 Pulse 122 05/07/17 12:38 Resp 38 05/07/17 12:00 BP 164/92 05/07/17 12:00 Pulse Ox 100 05/07/17 12:38 Intake & Output 05/06/17 05/07/17 05/07/17 18:59 06:59 18:59 Intake Total 4066.667 2140 Output Total 1410 1710 900 Balance 2656.667 430 -900 Weight (lbs) 108.409 kg 109.543 kg 109.543 kg Intake: Intake, IV Amount 2566.667 700 Linezolid 600mg/300mL 600 300 300 mg In 300 ml @ 300 mls/ hr IV Q12HR [facility] Rx#: [id number] Meropenem 1 gm In Sodium 300 Chloride 0.9% 100 ml @ 100 mls/hr IV Q8H [facility] Rx# :[id number] Multivitamin Inj 10 ml In 2266.667 Dextrose 70% 1,740 ml In Amino Acids 10% 500 ml In Intralipids 20% 150 ml @ 100 mls/hr IV .Q24H [facility] Rx#:[id number] Tigecycline 50 mg In 100 Sodium Chloride 0.9% 100 ml @ 100 mls/hr IV Q12H [facility] Rx#:[id number] Oral 0 Tube Feeding 240 TPN/PPN 1200 1200 Other 300 Output: Gastric Drainage 900 Drainage 5 10 Medial Abdomen 5 10 Urine 1400 1400 Stool 5 200 Other 100 Other: Stool Characteristics Soft Soft Soft Liquid Liquid Liquid Brown Brown Brown Active Medications: Current Medications Acetaminophen (Tylenol) 650 mg PO Q6H PRN PRN Reason: FEVER/PAIN Stop: 06/21/17 17:45 Last Admin: 05/07/17 06:57 Dose: 650 mg Albuterol/Ipratropium (Duoneb Neb) 3 ml HHN Q4HRT [facility] Stop: 06/15/17 14:59 Last Admin: 05/07/17 12:38 Dose: 3 ml Amiodarone HCl (Cordarone) 200 mg NG BID [facility] Stop: 06/24/17 23:14 Last Admin: 05/07/17 09:43 Dose: Not Given Budesonide (Pulmicort) 0.5 mg HHN BIDRT [facility] Stop: 06/15/17 18:59 Last Admin: 05/07/17 07:20 Dose: 0.5 mg Chlorhexidine Gluconate (Peridex) 15 ml MM 0800,1999 [facility] Stop: 06/30/17 19:59 Last Admin: 05/06/17 20:00 Dose: 15 ml Enalaprilat (Vasotec) 2.5 mg IVP Q4HR PRN PRN Reason: SBP>150 Stop: 07/06/17 15:59 Famotidine (Pepcid) 20 mg IVP Q6HR [facility] Stop: 07/06/17 11:59 Heparin Sodium (Porcine) (Heparin) 5,000 units SUBQ Q12HR [facility] Stop: 07/01/17 20:59 Last Admin: 05/07/17 09:44 Dose: Not Given Multivitamins/Minerals 10 ml/Dextrose/ Amino Acids/Electrolytes/ Fat Emulsion Intravenous 2,400 mls @ 100 mls/hr IV .Q24H [facility] Stop: 06/23/17 15:59 Last Admin: 05/06/17 16:55 Dose: 100 mls/hr Dextrose/Sodium Chloride (D5-0.45ns) 1,000 mls @ 40 mls/hr IV .Q24H [facility] Stop: 06/23/17 15:59 Last Admin: 05/05/17 20:49 Dose: 40 mls/hr Norepinephrine Bitartrate 4 mg (/ Dextrose) 254 mls @ 0 mls/hr IV TITR PRN; Protocol; 0 MCG/MIN PRN Reason: BP MAINTENANCE (PER PROTOCOL) Stop: 06/30/17 09:25 Last Titration: 05/02/17 07:00 Dose: Infused Meropenem 1 gm/ Sodium (Chloride) 100 mls @ 100 mls/hr IV Q8H [facility] Stop: 06/30/17 11:14 Last Admin: 05/07/17 11:45 Dose: 100 mls/hr Fluconazole (Diflucan) 200 mg in 100 mls @ 100 mls/hr IV Q24HR [facility] Stop: 07/01/17 12:29 Last Admin: 05/06/17 12:45 Dose: 100 mls/hr Linezolid (Zyvox) 600 mg in 300 mls @ 300 mls/hr IV Q12HR [facility] Stop: 07/01/17 20:59 Last Admin: 05/07/17 08:53 Dose: 300 mls/hr Tigecycline 50 mg/ Sodium (Chloride) 100 mls @ 100 mls/hr IV Q12H [facility] Stop: 07/05/17 21:59 Last Admin: 05/07/17 09:47 Dose: 100 mls/hr Diltiazem HCl 125 mg/ Dextrose 125 mls @ 10 mls/hr IV TITR [facility]; 10 MG/HR PRN Reason: Protocol Stop: 07/06/17 11:14 Last Admin: 05/07/17 11:32 Dose: 10 mg/hr, 10 mls/hr Insulin Aspart (Novolog Insulin Sliding Scale) 0 units SUBQ Q6HR [facility] PRN Reason: Protocol Stop: 06/16/17 17:59 Last Admin: 05/07/17 12:11 Dose: 2 units Lorazepam (Ativan) 1 mg IVP Q4HR PRN; Protocol PRN Reason: Agitation Stop: 07/03/17 16:14 Last Admin: 05/07/17 12:14 Dose: 1 mg Metoclopramide HCl (Reglan) 10 mg IVP Q8HR [facility] Stop: 07/06/17 20:59 Metoprolol Tartrate (Lopressor) 25 mg PO BID [facility] Stop: 06/26/17 08:59 Last Admin: 05/07/17 09:45 Dose: Not Given Mineral Oil (Mineral Oil 30 Ml) 30 ml NG DAILY [facility] Stop: 07/04/17 12:29 Last Admin: 05/06/17 11:00 Dose: 30 ml Miscellaneous (Probiotic Screen) 1 ea MC PRN PRN PRN Reason: PROTOCOL Stop: 06/14/17 09:39 Miscellaneous (Clinical Monitoring) 1 ea MC DAILY PRN PRN Reason: RENAL Stop: 06/15/17 12:48 Miscellaneous (Tpn Per Pharmacy) 1 ea MC PRN PRN PRN Reason: PROTOCOL Stop: 06/16/17 12:28 Miscellaneous (Vte Chemical Prophylaxis Screen/ Admission) 1 ea MC PRN PRN PRN Reason: PROTOCOL Stop: 07/01/17 14:44 Morphine Sulfate (Morphine) 2 mg IVP Q4HR PRN PRN Reason: pain Stop: 07/01/17 09:37 Last Admin: 05/06/17 19:54 Dose: 2 mg Ondansetron HCl (Zofran) 4 mg IVP Q6H PRN PRN Reason: Nausea / Vomiting Stop: 06/13/17 20:08 Last Admin: 05/06/17 01:34 Dose: 4 mg Pantoprazole Sodium (Protonix) 40 mg IVP BID [facility] Stop: 07/01/17 10:14 Last Admin: 05/06/17 17:01 Dose: Not Given General: no acute distress, well developed, well nourished HEENT: atraumatic, normocephalic, PERRLA, EOMI, moist mucous membrane Neck: supple, no thyromegaly, no rigid Cardiovascular: S1S2, regular Lungs: clear to auscultation bilaterally, clear to percussion Abdomen: soft, distended, other (LLL colostomy. abd wall wound with wound vac.) Skin: other (mild erythema of both legs, worse on the left. and extended to abdomen , more prominent around the abdoinal wound.) - Procedures Procedures: Procedures Procedure Code Date BYPASS SIGMOID COLON TO CUTANEOUS, OPEN APPROACH [id number] 04/14/17 INSERT EMERGENCY AIRWAY 71087 04/14/17 INSERTION OF ENDOTRACHEAL AIRWAY INTO TRACHEA, VIA OPENING [id number] 04/14/17 PARTIAL REMOVAL OF COLON 94578 04/14/17 RESECTION OF SIGMOID COLON, OPEN APPROACH [id number] 04/14/17 RESPIRATORY VENTILATION, 24-96 CONSECUTIVE HOURS [id number] 04/14/17 VENT MGMT INPAT INIT DAY 99947 04/14/17 VENT MGMT INPAT SUBQ DAY 62757 04/14/17 Infectious Disease Assmt/Plan - Problem List Patient Problems: All Active Problems Abscess of sigmoid colon due to diverticulitis (Acute) K57.20 Diverticulitis of sigmoid colon (Acute) K57.32 Obesity (Acute) E66.9 Perforation of sigmoid colon due to diverticulitis (Acute) K57.20 Peritonitis (acute) generalized (Acute) K65.0 - Assessment Assessment: 1. Sepsis. febrile. 2. Diverticulitis, sigmoid diverticula to with support complicated by multiple abscesses and peritonitis. treated with expl lap. lactic asid WNL. 3. Post operatively, on ventilator. 4. Peritonitis. Likely polymicrobial. 5. Asthma exacerbation. 6. History of arthritis. 7. Distended abdomen likely post operative ileus. Rule out small bowel obstruction. 8. SEKOU. Improved. 9. Post op, paralytic ileus. improved. 10. Wrist cellulitis, worse on left with destruction of bones. X ray of the left wrist suggested osteomyelitis. 11. Wound dehiscence. 12. Vent dependent respiratory failure. 13. Left leg cellulitis. 14. Pneumonia, ( On CT scan). 15. fever might be from cellulitis, peritonitis or pneumonia. even due to ileus. however, there is no leukocytosis, no bandemia, normal differential and no reactive thrombocytosis. 16. Ileus, on ngt suction. - Plan Plan: Continue merrem and diflucan. Change zyvox to tygacil as patient continues to have fevers and would like to dc zyvox for its potential side effects. Blood c/s, sepsis w/u. Check procalcitonin. May consider to change all the lines, if patient remains febrile. KUB in am. poor prognosis. Nutritional Asmnt/Malnutr-PDOC - Dietary Evaluation Malnutrition Findings (Please click <Entered> for more info): Nutritional Asmnt/Malnutrition Start: 04/19/17 14: 21 Text: Status: Complete Freq: Document 04/19/17 14:21 GSUN (Rec: 04/19/17 14:58 [id number]) Nutritional Asmnt/Malnutrition Patient General Information Nutritional Screening Moderate Risk Screening Diagnosis Sepsis, diverticulitis, peritonitis Pertinent Medical Hx/Surgical Hx Asthma, diverticulosis Subjective Information 56 year old male frome home. Pt was restless, moving extremities during visit. 04/14 : sigmoid colectomy, end colostomy, abscess drainage, diffuse peritontis. 04/16: pt started PPN. 04/17: central line and started on TPN. Spoke to family at bedside, explained parenteral nutrition , family undersoto and has no further question at this time. Weight discrepancies noted in EMR, family does not know UBW , estimated nutritional needs based Current Diet Order/ Nutrition Support TPN D10% AA4.25% at 90ml/hr with IL20% 150ml, providing 1401.6kcal Pertinent Medications Dilaudid, Novolog, Culturelle, Magnesium Sulfate, Vancomycin , TPN, Morphine, Multivitamins , Zofran, Protonix, Nacl0.9% Pertinent Labs 04/14: triglycerides 106, total bilirubin 1.1H, glucose 116H 04/17: magnesium 2.5, phsophorus 3.2 04/19: magnesium 1.8L, phosphorus 2.4L, BUN 28H, creatinine 1.3, glucose 154H, total bilirubin 1.1H, triglycerides 238H Nutritional Hx/Data Height 1.7 m Height (Calculated Centimeters) 170.2 Current Weight (lbs) 95.254 kg Weight (Calculated Kilograms) 95.3 Weight (Calculated Grams) 47937.4 [place] Body Weight 148 Weight Status Overweight GI Symptoms Skin Integrity/Comment: [place] 14. Facial non-pitting 1+, bilateral hands pitting 1+ Estimated Nutritional Goals Calories/Kcals/Kg IBW 148/67.3kg Kcals Calculated 2019-2356kcal (30-35kcal/kg) Protein Calculated 101-135g (1.5-2g/kg) Fluid: ml Per MD Nutritional Problem 1. Problem Problem Altered GI function related to Etiology abscess and perforation of sigmoid colon due to diverticulitis aeb Signs/Symptoms: post-operative, on TPN Intervention/Recommendation Comments 1. Recommend TPN D15% AA5.5% at 100ml/hr with IL20% 150ml, providing 2400ml total volume, 2052kcal, 132g protein, meeting 100% of estimated nutritional needs. Carb load 2 .6mg/kg/min (using 210lb adm weight). 2. Monitor for possible refeeding syndrome, 04/18: phsophorus 2.1L, 04/19: magnesium 1.9. 3. Monitor triglycerides, total bilirubin, glucose, renal labs. Expected Outcomes/Goals Expected Outcomes/Goals 1. Pt to meet 100% of estimated nutritional needs on TPN.
[2017-05-07] MEDS: Morphine Sulfate 2 mg/mL 1mL Syr IVP PRN ×2 (16:10→22:39)
[2017-05-07] MEDS: TPN 10%-70% CUSTOM IV SCH (16:31)
--- NOTE | 2017-05-07 19:22 | Internal Medicine Prog Note ---
Internal Medicine Subjective - Subjective Service Date: 05/07/17 Patient seen and examined:: with staff Patient is:: non-verbal, in bed Per staff patient has:: no adverse event (ON VENT.) Internal Medicine Objective - Results Result Diagrams: 05/07/17 04:45 05/07/17 04:45 Recent Labs: Laboratory Last Values WBC 7.4 Th/cmm (4.8-10.8) 05/07/17 04:45 RBC 3.44 Mil/cmm (4.30-5.70) L 05/07/17 04:45 Hgb 9.4 gm/dL (13.2-17.3) L 05/07/17 04:45 Hct 27.9 % (39.0-49.0) L 05/07/17 04:45 MCV 81.0 fl (80-99) 05/07/17 04:45 MCH 27.4 pg (26.0-30.0) 05/07/17 04:45 MCHC Differential 33.8 pg (28.0-36.0) 05/07/17 04:45 RDW 16.5 % (11.5-20.0) 05/07/17 04:45 Plt Count 245 Th/cmm (150-400) D 05/07/17 04:45 MPV 7.0 fl 05/07/17 04:45 Neutrophils % 60.5 % (40.0-80.0) 05/07/17 04:45 Band Neutrophils % 4 % (0-10) 05/02/17 05:15 Lymphocytes % 20.6 % (20.0-50.0) 05/07/17 04:45 Monocytes % 10.3 % (2.0-10.0) H 05/07/17 04:45 Eosinophils % 7.9 % (0.0-5.0) H 05/07/17 04:45 Basophils % 0.7 % (0.0-2.0) 05/07/17 04:45 Neutrophils (Manual) 68 % (40-80) 05/02/17 05:15 Lymphocytes 14 % (20-50) L 05/02/17 05:15 Monocytes 8 % (2-10) 05/02/17 05:15 Eosinophils 6 % (0-5) H 05/02/17 05:15 Metamyelocytes 1 % (0-0) H 04/22/17 05:04 Platelet Estimate ADEQUATE (NORMAL) 05/02/17 05:15 Platelet Morphology NORMAL (NORMAL) 05/02/17 05:15 Anisocytosis 1+ 04/28/17 06:08 Microcytosis 1+ 05/02/17 05:15 RBC Morph Micro Appear ABNORMAL (NORMAL) 05/02/17 05:15 ESR > 140 mm/hr (0-20) H 04/20/17 07:00 PT 11.9 SECONDS (9.5-11.5) H 04/24/17 21:19 INR 1.13 (0.5-1.4) 04/24/17 21:19 PTT (Actin FS) 27.6 SECONDS (26.0-38.0) 04/24/17 21:19 Specimen Source Arterial 05/07/17 09:45 Sample Site Right Radial 05/07/17 09:45 pH 7.46 (7.35-7.45) H 05/07/17 09:45 pCO2 47.0 mmHg (35.0-45.0) H 05/07/17 09:45 pO2 126.0 mmHg (80.0-100.0) H 05/07/17 09:45 HCO3 31.5 mEq/L (20.0-26.0) H 05/07/17 09:45 Base Excess 8.4 mEq/L (-3.0-3.0) H 05/07/17 09:45 O2 Saturation 99.0 % (92.0-100.0) 05/07/17 09:45 Chau Test YES 05/07/17 09:45 Vent Rate 16 05/07/17 09:45 Inspired O2 30 05/07/17 09:45 Tidal Volume 450 05/07/17 09:45 PEEP 3 05/07/17 09:45 Pressure (ins/psv/peep) NA 05/07/17 09:45 Critical Value E.ROSEN 05/07/17 09:45 Sodium 141 mEq/L (136-145) 05/07/17 04:45 Potassium 3.8 mEq/L (3.5-5.1) 05/07/17 04:45 Chloride 106 mEq/L (98-107) 05/07/17 04:45 Carbon Dioxide 30.0 mEq/L (21.0-31.0) 05/07/17 04:45 Anion Gap 8.8 (7.0-16.0) 05/07/17 04:45 BUN 27 mg/dL (7-25) H 05/07/17 04:45 Creatinine 1.0 mg/dL (0.7-1.3) 05/07/17 04:45 Est GFR ( Amer) > 60.0 ml/min (>90) 05/07/17 04:45 Est GFR (Non-Af Amer) > 60.0 ml/min 05/07/17 04:45 BUN/Creatinine Ratio 27.0 05/07/17 04:45 Glucose 153 mg/dL (70-105) H 05/07/17 04:45 POC Glucose 160 MG/DL (70 - 105) H 05/07/17 17:17 Hemoglobin A1c % 6.7 % (4.0-6.0) H 04/22/17 05:04 Whole Bld Lactic Acid 1.68 mmol/L (0.60-1.99) 05/07/17 04:45 Uric Acid 3.6 mg/dL (4.4-7.6) L 04/20/17 07:00 Calcium 9.4 mg/dL (8.6-10.3) 05/07/17 04:45 Phosphorus 4.7 mg/dL (2.5-5.0) 05/07/17 04:45 Magnesium 1.9 mg/dL (1.9-2.7) 05/07/17 04:45 Total Bilirubin 0.4 mg/dL (0.3-1.0) 05/07/17 04:45 Direct Bilirubin 0.11 mg/dL (0.0-0.2) 05/02/17 05:15 AST 52 U/L (13-39) H 05/07/17 04:45 ALT 20 U/L (7-52) 05/07/17 04:45 Alkaline Phosphatase 94 U/L (34-104) 05/07/17 04:45 Ammonia 31 umol/L (16-53) 05/07/17 04:45 Creatine Kinase 136 U/L (30-223) 04/14/17 14:55 Troponin I 0.01 ng/mL (0.01-0.05) 04/22/17 05:04 C-Reactive Protein 23.6 mg/dL (0.0-0.9) H 05/07/17 04:45 B-Natriuretic Peptide 85.5 pg/mL (5.0-100.0) 04/14/17 14:55 Total Protein 6.6 gm/dL (6.0-8.3) 05/07/17 04:45 Albumin 2.2 gm/dL (4.2-5.5) L 05/07/17 04:45 Globulin 4.4 gm/dL 05/07/17 04:45 Albumin/Globulin Ratio 0.5 (1.0-1.8) L 05/07/17 04:45 Prealbumin 12 mg/dL (10-36) 05/05/17 04:35 Triglycerides 383 mg/dL (<150) H 05/05/17 04:35 Cholesterol 104 mg/dL (<200) 05/05/17 04:35 LDL Cholesterol Direct 38 mg/dL (75-193) L 04/14/17 14:55 HDL Cholesterol 13 mg/dL (23-92) L 04/14/17 14:55 Amylase 44 U/L (29-103) 05/03/17 04:40 Lipase 178 U/L (11-82) H 05/07/17 04:45 Urine Source [place] 05/03/17 13:38 Urine Color YELLOW 05/03/17 13:38 Urine Clarity TURBID (CLEAR) 05/03/17 13:38 Urine pH 7.5 05/03/17 13:38 Ur Specific [place] 1.010 (1.005-1.030) 05/03/17 13:38 Urine Protein NEGATIVE mg/dL (NEGATIVE) 05/03/17 13:38 Urine Glucose (UA) NEGATIVE mg/dL (NEGATIVE) 05/03/17 13:38 Urine Ketones NEGATIVE mg/dL (NEGATIVE) 05/03/17 13:38 Urine Blood MODERATE (NEGATIVE) H 05/03/17 13:38 Urine Nitrate NEGATIVE (NEGATIVE) 05/03/17 13:38 Urine Bilirubin NEGATIVE (NEGATIVE) 05/03/17 13:38 Urine Urobilinogen 0.2 E.U./dL (0.2 - 1.0) 05/03/17 13:38 Ur Leukocyte Esterase TRACE (NEGATIVE) H 05/03/17 13:38 Urine RBC 50-100 /hpf (0-5) H 05/03/17 13:38 Urine WBC 6-10 /hpf (0-5) H 05/03/17 13:38 Ur Epithelial Cells FEW /lpf (FEW) 05/03/17 13:38 Amorphous Sediment MANY URATES (NONE SEEN) 04/14/17 15:05 Urine Bacteria FEW /hpf (NONE SEEN) 05/03/17 13:38 Vancomycin Trough 13.5 ug/mL (10-20) 04/19/17 19:20 Helicobacter pylori Ab NEGATIVE (NEGATIVE) 05/04/17 10:05 Blood Type O POSITIVE 05/02/17 07:12 Antibody Screen NEGATIVE 05/02/17 07:12 Crossmatch See Detail 05/02/17 07:12 - Physical Exam Vitals and I&O: Vital Signs Temp 99.1 F 05/07/17 19:07 Pulse 106 05/07/17 19:07 Resp 27 05/07/17 19:07 BP 125/83 05/07/17 19:07 Pulse Ox 100 05/07/17 19:07 Intake & Output 05/07/17 05/07/17 05/08/17 06:59 18:59 06:59 Intake Total 2140 4240 Output Total 1710 3450 Balance 430 790 Weight (lbs) 109.543 kg 107.161 kg Intake: Intake, IV Amount 700 2960 Fluconazole 200mg/100mL 100 200 mg In 100 ml @ 100 mls/hr IV Q24HR ARIAN Rx#: [id number] Linezolid 600mg/300mL 600 300 mg In 300 ml @ 300 mls/ hr IV Q12HR ARIAN Rx#: [id number] Meropenem 1 gm In Sodium 300 100 Chloride 0.9% 100 ml @ 100 mls/hr IV Q8H ARIAN Rx# :[id number] Multivitamin Inj 10 ml In 2360 Dextrose 70% 1,740 ml In Amino Acids 10% 500 ml In Intralipids 20% 150 ml @ 100 mls/hr IV .Q24H ARIAN Rx#:[id number] Tigecycline 50 mg In 100 100 Sodium Chloride 0.9% 100 ml @ 100 mls/hr IV Q12H ARIAN Rx#:[id number] Oral 0 Tube Feeding 240 TPN/PPN 1200 1200 Other 80 Output: Gastric Drainage 1100 Drainage 10 Medial Abdomen 10 Urine 1400 2350 Stool 200 Other 100 Other: Stool Characteristics Soft Soft Liquid Liquid Brown Brown Active Medications: Current Medications Acetaminophen (Tylenol) 650 mg PO Q6H PRN PRN Reason: FEVER/PAIN Stop: 06/21/17 17:45 Last Admin: 05/07/17 06:57 Dose: 650 mg Albuterol/Ipratropium (Duoneb Neb) 3 ml HHN Q4HRT ARIAN Stop: 06/15/17 14:59 Last Admin: 05/07/17 18:45 Dose: 3 ml Amiodarone HCl (Cordarone) 200 mg NG BID ARIAN Stop: 06/24/17 23:14 Last Admin: 05/07/17 16:26 Dose: Not Given Budesonide (Pulmicort) 0.5 mg HHN BIDRT ARIAN Stop: 06/15/17 18:59 Last Admin: 05/07/17 18:45 Dose: 0.5 mg Chlorhexidine Gluconate (Peridex) 15 ml MM 0800,1999 [facility] Stop: 06/30/17 19:59 Last Admin: 05/07/17 08:25 Dose: 15 ml Enalaprilat (Vasotec) 2.5 mg IVP Q4HR PRN PRN Reason: SBP>150 Stop: 07/06/17 15:59 Famotidine (Pepcid) 20 mg IVP Q6HR [facility] Stop: 07/06/17 11:59 Last Admin: 05/07/17 18:20 Dose: 20 mg Furosemide (Lasix) 40 mg IVP BID [facility] Stop: 05/08/17 09:01 Last Admin: 05/07/17 16:23 Dose: 40 mg Heparin Sodium (Porcine) (Heparin) 5,000 units SUBQ Q12HR ARIAN Stop: 07/01/17 20:59 Last Admin: 05/07/17 09:44 Dose: Not Given Multivitamins/Minerals 10 ml/Dextrose/ Amino Acids/Electrolytes/ Fat Emulsion Intravenous 2,400 mls @ 100 mls/hr IV .Q24H ARIAN Stop: 06/23/17 15:59 Last Admin: 05/07/17 16:31 Dose: 100 mls/hr Dextrose/Sodium Chloride (D5-0.45ns) 1,000 mls @ 40 mls/hr IV .Q24H [facility] Stop: 06/23/17 15:59 Last Admin: 05/05/17 20:49 Dose: 40 mls/hr Norepinephrine Bitartrate 4 mg (/ Dextrose) 254 mls @ 0 mls/hr IV TITR PRN; Protocol; 0 MCG/MIN PRN Reason: BP MAINTENANCE (PER PROTOCOL) Stop: 06/30/17 09:25 Last Titration: 05/02/17 07:00 Dose: Infused Meropenem 1 gm/ Sodium (Chloride) 100 mls @ 100 mls/hr IV Q8H [facility] Stop: 06/30/17 11:14 Last Infusion: 05/07/17 12:45 Dose: Infused Fluconazole (Diflucan) 200 mg in 100 mls @ 100 mls/hr IV Q24HR [facility] Stop: 07/01/17 12:29 Last Infusion: 05/07/17 14:00 Dose: Infused Tigecycline 50 mg/ Sodium (Chloride) 100 mls @ 100 mls/hr IV Q12H [facility] Stop: 07/05/17 21:59 Last Infusion: 05/07/17 10:50 Dose: Infused Diltiazem HCl 125 mg/ Dextrose 125 mls @ 10 mls/hr IV TITR ARIAN; 10 MG/HR PRN Reason: Protocol Stop: 07/06/17 11:14 Last Admin: 05/07/17 11:32 Dose: 10 mg/hr, 10 mls/hr Insulin Aspart (Novolog Insulin Sliding Scale) 0 units SUBQ Q6HR ARIAN PRN Reason: Protocol Stop: 06/16/17 17:59 Last Admin: 05/07/17 17:33 Dose: 2 units Lorazepam (Ativan) 1 mg IVP Q4HR PRN; Protocol PRN Reason: Agitation Stop: 07/03/17 16:14 Last Admin: 05/07/17 12:14 Dose: 1 mg Metoclopramide HCl (Reglan) 10 mg IVP Q8HR [facility] Stop: 07/06/17 20:59 Metoprolol Tartrate (Lopressor) 25 mg PO BID [facility] Stop: 06/26/17 08:59 Last Admin: 05/07/17 16:27 Dose: Not Given Mineral Oil (Mineral Oil 30 Ml) 30 ml NG DAILY [facility] Stop: 07/04/17 12:29 Last Admin: 05/07/17 09:10 Dose: 30 ml Miscellaneous (Probiotic Screen) 1 ea MC PRN PRN PRN Reason: PROTOCOL Stop: 06/14/17 09:39 Miscellaneous (Tpn Per Pharmacy) 1 ea PRN PRN PRN Reason: PROTOCOL Stop: 06/16/17 12:28 Miscellaneous (Vte Chemical Prophylaxis Screen/ Admission) 1 ea PRN PRN PRN Reason: PROTOCOL Stop: 07/01/17 14:44 Morphine Sulfate (Morphine) 2 mg IVP Q4HR PRN PRN Reason: pain Stop: 07/01/17 09:37 Last Admin: 05/07/17 16:10 Dose: 2 mg Ondansetron HCl (Zofran) 4 mg IVP Q6H PRN PRN Reason: Nausea / Vomiting Stop: 06/13/17 20:08 Last Admin: 05/06/17 01:34 Dose: 4 mg Pantoprazole Sodium (Protonix) 40 mg IVP BID ARIAN Stop: 07/01/17 10:14 Last Admin: 05/07/17 16:26 Dose: Not Given General: obese, other (ON VENT) HEENT: anicteric sclerae Neck: No JVD Lungs: congested, rales Cardiovascular: RRR, Normal S1, Normal S2, without murmur Abdomen: tender, non-distended Extremities: edema Neurological: no change - Procedures Procedures: Procedures Procedure Code Date BYPASS SIGMOID COLON TO CUTANEOUS, OPEN APPROACH [id number] 04/14/17 INSERT EMERGENCY AIRWAY 22143 04/14/17 INSERTION OF ENDOTRACHEAL AIRWAY INTO TRACHEA, VIA OPENING [id number] 04/14/17 PARTIAL REMOVAL OF COLON 58853 04/14/17 RESECTION OF SIGMOID COLON, OPEN APPROACH [id number] 04/14/17 RESPIRATORY VENTILATION, 24-96 CONSECUTIVE HOURS [id number] 04/14/17 VENT MGMT INPAT INIT DAY 45223 04/14/17 VENT MGMT INPAT SUBQ DAY 97890 04/14/17 Internal Medicine Assmt/Plan - Assessment Assessment: 1.RESPIRATORY FAILURE. 2.ANOXIC ENCEPHALOPATHY. 3.SP EXPLORATORY LAPRATOMY. 4.ANEMIA - Plan Plan: CONTINUE ON CURRENT MEDICATION AND DIET.HOLD GT FEEDING. Nutritional Asmnt/Malnutr-PDOC - Dietary Evaluation Malnutrition Findings (Please click <Entered> for more info): Nutritional Asmnt/Malnutrition Start: 04/19/17 14: 21 Text: Status: Complete Freq: Document 04/19/17 14:21 GSUN (Rec: 04/19/17 14:58 [id number]) Nutritional Asmnt/Malnutrition Patient General Information Nutritional Screening Moderate Risk Screening Diagnosis Sepsis, diverticulitis, peritonitis Pertinent Medical Hx/Surgical Hx Asthma, diverticulosis Subjective Information 56 year old male frome home. Pt was restless, moving extremities during visit. 04/14 : sigmoid colectomy, end colostomy, abscess drainage, diffuse peritontis. 04/16: pt started PPN. 04/17: central line and started on TPN. Spoke to family at bedside, explained parenteral nutrition , family undersoto and has no further question at this time. Weight discrepancies noted in EMR, family does not know UBW , estimated nutritional needs based Current Diet Order/ Nutrition Support TPN D10% AA4.25% at 90ml/hr with IL20% 150ml, providing 1401.6kcal Pertinent Medications Dilaudid, Novolog, Culturelle, Magnesium Sulfate, Vancomycin , TPN, Morphine, Multivitamins , Zofran, Protonix, Nacl0.9% Pertinent Labs 04/14: triglycerides 106, total bilirubin 1.1H, glucose 116H 04/17: magnesium 2.5, phsophorus 3.2 04/19: magnesium 1.8L, phosphorus 2.4L, BUN 28H, creatinine 1.3, glucose 154H, total bilirubin 1.1H, triglycerides 238H Nutritional Hx/Data Height 1.7 m Height (Calculated Centimeters) 170.2 Current Weight (lbs) 95.254 kg Weight (Calculated Kilograms) 95.3 Weight (Calculated Grams) 04323.4 [place] Body Weight 148 Weight Status Overweight GI Symptoms Skin Integrity/Comment: [place] 14. Facial non-pitting 1+, bilateral hands pitting 1+ Estimated Nutritional Goals Calories/Kcals/Kg IBW 148/67.3kg Kcals Calculated 2019-2356kcal (30-35kcal/kg) Protein Calculated 101-135g (1.5-2g/kg) Fluid: ml Per MD Nutritional Problem 1. Problem Problem Altered GI function related to Etiology abscess and perforation of sigmoid colon due to diverticulitis aeb Signs/Symptoms: post-operative, on TPN Intervention/Recommendation Comments 1. Recommend TPN D15% AA5.5% at 100ml/hr with IL20% 150ml, providing 2400ml total volume, 2052kcal, 132g protein, meeting 100% of estimated nutritional needs. Carb load 2 .6mg/kg/min (using 210lb adm weight). 2. Monitor for possible refeeding syndrome, 04/18: phsophorus 2.1L, 04/19: magnesium 1.9. 3. Monitor triglycerides, total bilirubin, glucose, renal labs. Expected Outcomes/Goals Expected Outcomes/Goals 1. Pt to meet 100% of estimated nutritional needs on TPN.
--- NOTE | 2017-05-07 21:02 | Progress Notes ---
DATE: 05/07/2017 PULMONARY PROGRESS NOTE PROBLEM LIST: 1. Acute respiratory failure, persistent. 2. Persistent tachypnea, now has developed pneumonia, right basal area. SYMPTOMS: The patient is not communicative, not in any acute distress. PHYSICAL EXAMINATION: VITAL SIGNS: Heart rate is 130-120, temperature is 99. Saturation is 100% on 30% of AC of 16. ENT: Shows no new changes. CHEST: Shows diminished air entry with occasional rhonchi. HEART: Regular. Tachycardic. ABDOMEN: Slightly tender, otherwise unremarkable. LABORATORY DATA: White count is 7.4, hemoglobin 9.4. ABG shows compensated respiratory acidemia on 30% of oxygen with AC of 16. ASSESSMENT: The patient clinically status quo, not much changed. Appears to have developed new infiltrate in right basal area. PLANS AND SUGGESTIONS: We will continue current respiratory care. We will get sputum studies. Follow up her on the chest x-ray in next day or two and go from there. JOB# [id number]
--- NOTE | 2017-05-07 23:00 | Progress Notes ---
DATE: 05/07/2017 GASTROENTEROLOGY PROGRESS NOTE SUBJECTIVE: Events noted. The patient had a large amount of coffee-ground emesis and therefore nasogastric feedings were held. OBJECTIVE: VITAL SIGNS: Noted. GENERAL: The patient is well-developed, chronically ill-appearing male in no acute distress. HEENT: Endotracheal tube is intact. CARDIOVASCULAR: Regular rate and rhythm. ABDOMEN: Soft, slightly distended, hypoactive bowel sounds. Intact colostomy. EXTREMITIES: No edema. LABORATORY DATA: WBC 7.4, hemoglobin 9.4, platelet count is normal. AST is mildly elevated at 52. Lipase is mildly elevated at 178. IMPRESSION: 1. Nausea and vomiting, likely from ileus and/or gastroparesis and/or partial bowel obstruction. 2. Dysphagia with nasogastric tube. 3. Upper gastrointestinal bleed secondary to gastritis and GE junction ulcers noted on upper endoscopy. 4. Anemia. 5. History of peritonitis and diverticulitis requiring laparotomy with sigmoidectomy and resection with diverting colostomy. RECOMMENDATIONS: 1. Antibiotics. 2. Post-surgical management as per surgeon. 3. TPN. 4. Nasogastric tube decompression. 5. Pepcid for now given that Protonix IV is not available. 6. Reglan to be titrated to effect. 7. Mineral oil. JOB# [id number] [facility]ITAL[facility]
[2017-05-08] MEDS: Meropenem 1 GM in Sodium Chloride 0.9% 100 ML IV SCH ×3 (03:21→18:16)
[2017-05-08] MEDS: Morphine Sulfate 2 mg/mL 1mL Syr IVP PRN ×3 (03:46→15:34)
[2017-05-08] MEDS: Metoclopramide 5 mg/mL 2mL Vial IVP SCH ×3 (04:35→20:41)
[2017-05-08 05:16] LABS: % EOSINOPHILS 10.8 % (0.0-5.0); % MONOCYTES 9.7 % (2.0-10.0); % NEUTROPHILS 61.5 % (40.0-80.0); HEMATOCRIT 26.8 % (39.0-49.0); MEAN CELL VOLUME 80.8 fl (80-99); MEAN CORPUSCULAR HEMOGLOBIN 27.2 pg (26.0-30.0); MEAN CORPUSCULAR HGB CONC 33.7 pg (28.0-36.0); MEAN PLATELET VOLUME 7.2 fl; NEUTROPHILE ABSOLUTE 5.9 Th/cmm (1.8-8.0); PLATELET COUNT 238 Th/cmm (150-400); RED BLOOD COUNT 3.32 Mil/cmm (4.30-5.70); RED CELL DISTRIBUTION WIDTH 16.5 % (11.5-20.0)
[2017-05-08 05:42] LABS: ALB/GLOB RATIO 0.5 (1.0-1.8); ALKALINE PHOSPHATASE 83 U/L (34-104); ANION GAP 5.2 (7.0-16.0); BILIRUBIN,TOTAL 0.4 mg/dL (0.3-1.0); BUN - UREA NITROGEN 32 mg/dL (7-25); BUN/CREATININE RATIO 35.6; CALCIUM SERUM 9.5 mg/dL (8.6-10.3); CARBON DIOXIDE 31.6 mEq/L (21.0-31.0); CHLORIDE 105 mEq/L (98-107); CREATININE - SERUM 0.9 mg/dL (0.7-1.3); GLUCOSE 152 mg/dL (70-105); MAGNESIUM 1.8 mg/dL (1.9-2.7); PHOSPHOROUS 3.7 mg/dL (2.5-5.0); POTASSIUM SERUM 3.8 mEq/L (3.5-5.1); SGOT 39 U/L (13-39); SGPT/ALT 16 U/L (7-52); SODIUM SERUM 138 mEq/L (136-145)
[2017-05-08 05:43] LABS: WHITE BLOOD COUNT 9.5 Th/cmm (4.8-10.8)
[2017-05-08] MEDS: INSULIN ASPART SLIDING SCALE 100 UNITS/ML UNIT SUBQ SCH ×4 (05:57→23:48)
[2017-05-08] MEDS: Albuterol/Ipratropium Neb 3 ML AERS HHN SCH ×5 (06:31→23:08)
[2017-05-08] MEDS: Budesonide 0.5 Mg/2 mL Ud HHN SCH ×2 (06:31→18:42)
[2017-05-08] MEDS ORDERED: Mag Sulfate 2gm/50mL Premix 2 GM/50 ML BAG IV SCH (08:15)
[2017-05-08] MEDS: Chlorhexidine Gluconate 0.12% 15mL Mouthwash MM SCH ×2 (08:38→20:41)
--- NOTE | 2017-05-08 09:53 | Diagnostic Imaging Report ---
Exam: KUB HISTORY: Ileus. Findings: Portable supine examination of the abdomen at 1607 hours was reviewed the study demonstrates NG tube in the stomach. There is evidence for distention of small bowel loops consistent with ileus. Bony structures are unremarkable for degenerative changes. No abnormal masses or calcifications are noted. IMPRESSION: 1. NG tube in the stomach Mild ileus.
[2017-05-08 10:06] LABS: pH 7.47 (7.35-7.45)
[2017-05-08 10:07] LABS: ABG SOURCE Arterial; ALLEN TEST Positive; BE(B) 9.8 mEq/L (-3.0-3.0); HCO3 32.6 mEq/L (20.0-26.0)
[2017-05-08 10:08] LABS: FIO2 30; MECH RATE 16; MECH VT 450
--- NOTE | 2017-05-08 10:22 | Progress Notes ---
DATE: 05/08/2017 SUBJECTIVE: The patient continues to have abdominal distention, not able to tolerate nasogastric tube feeding. Nasogastric tube residuals remain high with some coffee-ground material mixed with it. OBJECTIVE: VITAL SIGNS: Noted. GENERAL: The patient is a well-developed, chronically ill-appearing male in no acute distress. HEENT: Endotracheal tube is intact. CARDIOVASCULAR: Regular rate and rhythm. ABDOMEN: Soft, mild distention more than before, hypoactive bowel sounds. Mild diffuse tenderness to palpation, intact colostomy, but with minimal output. LABORATORY DATA AND IMAGING: WBC 9.5, hemoglobin 9, platelet count is 238, creatinine is 0.9. Liver enzymes are normal. Albumin is 2.1. IMPRESSION: 1. Nausea and vomiting, likely from ileus and/or gastroparesis and/or partial bowel obstruction. 2. Abdominal distention, rule out persistent peritonitis or perhaps a leak somewhere. 3. History of diverticulitis requiring laparotomy with sigmoidectomy, diverting colostomy, and Ada's pouch creation. 4. Anemia. 5. Dysphagia with high nasogastric tube residuals. 6. Upper gastrointestinal bleed with upper endoscopy showing gastroesophageal junction ulcer and gastritis. RECOMMENDATIONS: 1. We will repeat CT of the abdomen and pelvis with IV and NG tube contrast. 2. Antibiotics. 3. Surgical followup. 4. TPN. 5. Nasogastric tube to low intermittent suction. 6. IV Pepcid for now for upper GI bleed, given that IV Protonix is not available at the pharmacy. 7. Reglan titrated to effect. 8. Mineral oil. 9. Colostomy care. JOB# [id number]
--- NOTE | 2017-05-08 10:38 | Diagnostic Imaging Report ---
Exam chest portable HISTORY: Shortness of breath Findings: Portable upright examination of the chest at the 10th 16 hours reviewed no prior studies available comparison. The endotracheal tube is 4 cm above the ondina. The right jugular catheter terminates in superior vena cava. There is a question of NG tube poorly visualized. No acute pulmonic infiltrates or effusions are noted bony thorax is intact. The costophrenic angles are clear IMPRESSION: No acute disease.
[2017-05-08] MEDS: Fluconazole 200mg/100mL 200 MG/100 ML BAG IV SCH (13:00)
--- NOTE | 2017-05-08 15:13 | General Progress Note ---
Subjective - Review of Systems Service Date: 05/08/17 Subjective: lethargic resting comfortably in bed on vent Objective - Results Result Diagrams: 05/08/17 05:00 05/08/17 05:00 Recent Labs: Laboratory Last Values WBC 9.5 Th/cmm (4.8-10.8) D 05/08/17 05:00 RBC 3.32 Mil/cmm (4.30-5.70) L 05/08/17 05:00 Hgb 9.0 gm/dL (13.2-17.3) L 05/08/17 05:00 Hct 26.8 % (39.0-49.0) L 05/08/17 05:00 MCV 80.8 fl (80-99) 05/08/17 05:00 MCH 27.2 pg (26.0-30.0) 05/08/17 05:00 MCHC Differential 33.7 pg (28.0-36.0) 05/08/17 05:00 RDW 16.5 % (11.5-20.0) 05/08/17 05:00 Plt Count 238 Th/cmm (150-400) 05/08/17 05:00 MPV 7.2 fl 05/08/17 05:00 Neutrophils % 61.5 % (40.0-80.0) 05/08/17 05:00 Band Neutrophils % 4 % (0-10) 05/02/17 05:15 Lymphocytes % 17.0 % (20.0-50.0) L 05/08/17 05:00 Monocytes % 9.7 % (2.0-10.0) 05/08/17 05:00 Eosinophils % 10.8 % (0.0-5.0) H 05/08/17 05:00 Basophils % 1.0 % (0.0-2.0) 05/08/17 05:00 Neutrophils (Manual) 68 % (40-80) 05/02/17 05:15 Lymphocytes 14 % (20-50) L 05/02/17 05:15 Monocytes 8 % (2-10) 05/02/17 05:15 Eosinophils 6 % (0-5) H 05/02/17 05:15 Metamyelocytes 1 % (0-0) H 04/22/17 05:04 Platelet Estimate ADEQUATE (NORMAL) 05/02/17 05:15 Platelet Morphology NORMAL (NORMAL) 05/02/17 05:15 Anisocytosis 1+ 04/28/17 06:08 Microcytosis 1+ 05/02/17 05:15 RBC Morph Micro Appear ABNORMAL (NORMAL) 05/02/17 05:15 ESR > 140 mm/hr (0-20) H 04/20/17 07:00 PT 11.9 SECONDS (9.5-11.5) H 04/24/17 21:19 INR 1.13 (0.5-1.4) 04/24/17 21:19 PTT (Actin FS) 27.6 SECONDS (26.0-38.0) 04/24/17 21:19 Specimen Source Arterial 05/08/17 09:49 Sample Site Right Radial 05/08/17 09:49 pH 7.47 (7.35-7.45) H 05/08/17 09:49 pCO2 48.0 mmHg (35.0-45.0) H 05/08/17 09:49 pO2 90.0 mmHg (80.0-100.0) 05/08/17 09:49 HCO3 32.6 mEq/L (20.0-26.0) H 05/08/17 09:49 Base Excess 9.8 mEq/L (-3.0-3.0) H 05/08/17 09:49 O2 Saturation 97.0 % (92.0-100.0) 05/08/17 09:49 Chau Test Positive 05/08/17 09:49 Vent Rate 16 05/08/17 09:49 Inspired O2 30 05/08/17 09:49 Tidal Volume 450 05/08/17 09:49 PEEP 3 05/08/17 09:49 Pressure (ins/psv/peep) NA 05/07/17 09:45 Critical Value PING 05/08/17 09:49 Sodium 138 mEq/L (136-145) 05/08/17 05:00 Potassium 3.8 mEq/L (3.5-5.1) 05/08/17 05:00 Chloride 105 mEq/L (98-107) 05/08/17 05:00 Carbon Dioxide 31.6 mEq/L (21.0-31.0) H 05/08/17 05:00 Anion Gap 5.2 (7.0-16.0) L 05/08/17 05:00 BUN 32 mg/dL (7-25) H 05/08/17 05:00 Creatinine 0.9 mg/dL (0.7-1.3) 05/08/17 05:00 Est GFR ( Amer) > 60.0 ml/min (>90) 05/08/17 05:00 Est GFR (Non-Af Amer) > 60.0 ml/min 05/08/17 05:00 BUN/Creatinine Ratio 35.6 05/08/17 05:00 Glucose 152 mg/dL (70-105) H 05/08/17 05:00 POC Glucose 145 MG/DL (70 - 105) H 05/08/17 11:56 Hemoglobin A1c % 6.7 % (4.0-6.0) H 04/22/17 05:04 Whole Bld Lactic Acid 1.68 mmol/L (0.60-1.99) 05/07/17 04:45 Uric Acid 3.6 mg/dL (4.4-7.6) L 04/20/17 07:00 Calcium 9.5 mg/dL (8.6-10.3) 05/08/17 05:00 Phosphorus 3.7 mg/dL (2.5-5.0) 05/08/17 05:00 Magnesium 1.8 mg/dL (1.9-2.7) L 05/08/17 05:00 Total Bilirubin 0.4 mg/dL (0.3-1.0) 05/08/17 05:00 Direct Bilirubin 0.11 mg/dL (0.0-0.2) 05/02/17 05:15 AST 39 U/L (13-39) 05/08/17 05:00 ALT 16 U/L (7-52) 05/08/17 05:00 Alkaline Phosphatase 83 U/L (34-104) 05/08/17 05:00 Ammonia 41 umol/L (16-53) 05/08/17 05:00 Creatine Kinase 136 U/L (30-223) 04/14/17 14:55 Troponin I 0.01 ng/mL (0.01-0.05) 04/22/17 05:04 C-Reactive Protein 23.6 mg/dL (0.0-0.9) H 05/07/17 04:45 B-Natriuretic Peptide 85.5 pg/mL (5.0-100.0) 04/14/17 14:55 Total Protein 6.4 gm/dL (6.0-8.3) 05/08/17 05:00 Albumin 2.1 gm/dL (4.2-5.5) L 05/08/17 05:00 Globulin 4.3 gm/dL 05/08/17 05:00 Albumin/Globulin Ratio 0.5 (1.0-1.8) L 05/08/17 05:00 Prealbumin 12 mg/dL (10-36) 05/05/17 04:35 Triglycerides 383 mg/dL (<150) H 05/05/17 04:35 Cholesterol 104 mg/dL (<200) 05/05/17 04:35 LDL Cholesterol Direct 38 mg/dL (75-193) L 04/14/17 14:55 HDL Cholesterol 13 mg/dL (23-92) L 04/14/17 14:55 Amylase 44 U/L (29-103) 05/03/17 04:40 Lipase 178 U/L (11-82) H 05/07/17 04:45 Urine Source [place] 05/03/17 13:38 Urine Color YELLOW 05/03/17 13:38 Urine Clarity TURBID (CLEAR) 05/03/17 13:38 Urine pH 7.5 05/03/17 13:38 Ur Specific [place] 1.010 (1.005-1.030) 05/03/17 13:38 Urine Protein NEGATIVE mg/dL (NEGATIVE) 05/03/17 13:38 Urine Glucose (UA) NEGATIVE mg/dL (NEGATIVE) 05/03/17 13:38 Urine Ketones NEGATIVE mg/dL (NEGATIVE) 05/03/17 13:38 Urine Blood MODERATE (NEGATIVE) H 05/03/17 13:38 Urine Nitrate NEGATIVE (NEGATIVE) 05/03/17 13:38 Urine Bilirubin NEGATIVE (NEGATIVE) 05/03/17 13:38 Urine Urobilinogen 0.2 E.U./dL (0.2 - 1.0) 05/03/17 13:38 Ur Leukocyte Esterase TRACE (NEGATIVE) H 05/03/17 13:38 Urine RBC 50-100 /hpf (0-5) H 05/03/17 13:38 Urine WBC 6-10 /hpf (0-5) H 05/03/17 13:38 Ur Epithelial Cells FEW /lpf (FEW) 05/03/17 13:38 Amorphous Sediment MANY URATES (NONE SEEN) 04/14/17 15:05 Urine Bacteria FEW /hpf (NONE SEEN) 05/03/17 13:38 Vancomycin Trough 13.5 ug/mL (10-20) 04/19/17 19:20 Helicobacter pylori Ab NEGATIVE (NEGATIVE) 05/04/17 10:05 Blood Type O POSITIVE 05/02/17 07:12 Antibody Screen NEGATIVE 05/02/17 07:12 Crossmatch See Detail 05/02/17 07:12 - Physical Exam Vitals and I&O: Vital Signs Temp 98.4 F 05/08/17 14:00 Pulse 100 05/08/17 14:53 Resp 27 05/08/17 14:00 BP 130/63 05/08/17 14:15 Pulse Ox 98 05/08/17 14:53 Intake & Output 05/07/17 05/08/17 05/08/17 18:59 06:59 18:59 Intake Total 4240 1751.333 391.667 Output Total 3450 2700 Balance 790 -948.667 391.667 Weight (lbs) 107.161 kg 107.728 kg Intake: Intake, IV Amount 2960 1751.333 391.667 Diltiazem 125 mg In 103 125 Dextrose 5% 100 ml @ 10 MG/HR 10 mls/hr IV TITR [facility] Rx#:[id number] Fluconazole 200mg/100mL 100 100 200 mg In 100 ml @ 100 mls/hr IV Q24HR [facility] Rx#: [id number] Meropenem 1 gm In Sodium 100 200 66.667 Chloride 0.9% 100 ml @ 100 mls/hr IV Q8H [facility] Rx# :[id number] Multivitamin Inj 10 ml In 2360 1348.333 Dextrose 70% 1,740 ml In Amino Acids 10% 500 ml In Intralipids 20% 150 ml @ 100 mls/hr IV .Q24H [facility] Rx#:[id number] Tigecycline 50 mg In 100 100 100 Sodium Chloride 0.9% 100 ml @ 100 mls/hr IV Q12H [facility] Rx#:[id number] TPN/PPN 1200 Other 80 Output: Gastric Drainage 1100 300 Urine 2350 2400 Other: Stool Characteristics Soft Liquid Brown Active Medications: Current Medications Acetaminophen (Tylenol) 650 mg PO Q6H PRN PRN Reason: FEVER/PAIN Stop: 06/21/17 17:45 Last Admin: 05/07/17 06:57 Dose: 650 mg Albuterol/Ipratropium (Duoneb Neb) 3 ml HHN Q4HRT [facility] Stop: 06/15/17 14:59 Last Admin: 05/08/17 14:53 Dose: 3 ml Amiodarone HCl (Cordarone) 200 mg NG BID [facility] Stop: 06/24/17 23:14 Last Admin: 05/08/17 08:38 Dose: Not Given Budesonide (Pulmicort) 0.5 mg HHN BIDRT [facility] Stop: 06/15/17 18:59 Last Admin: 05/08/17 06:31 Dose: 0.5 mg Chlorhexidine Gluconate (Peridex) 15 ml MM 0800,1999 [facility] Stop: 06/30/17 19:59 Last Admin: 05/08/17 08:38 Dose: 15 ml Enalaprilat (Vasotec) 2.5 mg IVP Q4HR PRN PRN Reason: SBP>150 Stop: 07/06/17 15:59 Famotidine (Pepcid) 20 mg IVP Q6HR [facility] Stop: 07/06/17 11:59 Last Admin: 05/08/17 11:52 Dose: 20 mg Multivitamins/Minerals 10 ml/Dextrose/ Amino Acids/Electrolytes/ Fat Emulsion Intravenous 2,400 mls @ 100 mls/hr IV .Q24H [facility] Stop: 06/23/17 15:59 Last Infusion: 05/08/17 06:00 Dose: 100 mls/hr Dextrose/Sodium Chloride (D5-0.45ns) 1,000 mls @ 40 mls/hr IV .Q24H [facility] Stop: 06/23/17 15:59 Last Admin: 05/05/17 20:49 Dose: 40 mls/hr Norepinephrine Bitartrate 4 mg (/ Dextrose) 254 mls @ 0 mls/hr IV TITR PRN; Protocol; 0 MCG/MIN PRN Reason: BP MAINTENANCE (PER PROTOCOL) Stop: 06/30/17 09:25 Last Titration: 05/02/17 07:00 Dose: Infused Meropenem 1 gm/ Sodium (Chloride) 100 mls @ 100 mls/hr IV Q8H [facility] Stop: 06/30/17 11:14 Last Infusion: 05/08/17 12:00 Dose: 100 mls/hr Fluconazole (Diflucan) 200 mg in 100 mls @ 100 mls/hr IV Q24HR [facility] Stop: 07/01/17 12:29 Last Infusion: 05/08/17 14:00 Dose: Infused Tigecycline 50 mg/ Sodium (Chloride) 100 mls @ 100 mls/hr IV Q12H [facility] Stop: 07/05/17 21:59 Last Infusion: 05/08/17 11:30 Dose: Infused Diltiazem HCl 125 mg/ Dextrose 125 mls @ 10 mls/hr IV TITR [facility]; 10 MG/HR PRN Reason: Protocol Stop: 07/06/17 11:14 Last Admin: 05/08/17 11:30 Dose: 10 mg/hr, 10 mls/hr Insulin Aspart (Novolog Insulin Sliding Scale) 0 units SUBQ Q6HR [facility] PRN Reason: Protocol Stop: 06/16/17 17:59 Last Admin: 05/08/17 11:58 Dose: Not Given Lorazepam (Ativan) 1 mg IVP Q4HR PRN; Protocol PRN Reason: Agitation Stop: 07/03/17 16:14 Last Admin: 05/08/17 11:30 Dose: 1 mg Metoclopramide HCl (Reglan) 10 mg IVP Q8HR [facility] Stop: 07/06/17 20:59 Last Admin: 05/08/17 13:26 Dose: 10 mg Metoprolol Tartrate (Lopressor) 25 mg PO BID [facility] Stop: 06/26/17 08:59 Last Admin: 05/08/17 08:38 Dose: Not Given Mineral Oil (Mineral Oil 30 Ml) 30 ml NG DAILY [facility] Stop: 07/04/17 12:29 Last Admin: 05/08/17 08:42 Dose: Not Given Miscellaneous (Probiotic Screen) 1 ea PRN PRN PRN Reason: PROTOCOL Stop: 06/14/17 09:39 Miscellaneous (Tpn Per Pharmacy) 1 ea MC PRN PRN PRN Reason: PROTOCOL Stop: 06/16/17 12:28 Miscellaneous (Vte Chemical Prophylaxis Screen/ Admission) 1 ea PRN PRN PRN Reason: PROTOCOL Stop: 07/01/17 14:44 Morphine Sulfate (Morphine) 2 mg IVP Q4HR PRN PRN Reason: pain Stop: 07/01/17 09:37 Last Admin: 05/08/17 08:25 Dose: 2 mg Ondansetron HCl (Zofran) 4 mg IVP Q6H PRN PRN Reason: Nausea / Vomiting Stop: 06/13/17 20:08 Last Admin: 05/06/17 01:34 Dose: 4 mg Pantoprazole Sodium (Protonix) 40 mg IVP BID [facility] Stop: 07/01/17 10:14 Last Admin: 05/08/17 08:42 Dose: Not Given General: Mild distress HEENT: Atraumatic, PERRLA, EOMI, Mucous membr. moist/pink, Other (oral endotracheal tube,NG tube+) Neck: Supple, +2 carotid pulse wo bruit Cardiovascular: Regular rate, Normal S1, Normal S2 Lungs: Other (diffuse rhonchi.) Abdomen: Soft, Other ( wound VAC anterior open abdominal wall wound. L colostomy retracted but still functional w/ stool output.) Extremities: Other (no edema and cyanosis.) Neurological: Reflexes 2+, Other (Patient is intubated and sedated) Psych/Mental Status: Other (Sedated) - Procedures Procedures: Procedures Procedure Code Date BYPASS SIGMOID COLON TO CUTANEOUS, OPEN APPROACH [id number] 04/14/17 INSERT EMERGENCY AIRWAY 70441 04/14/17 INSERTION OF ENDOTRACHEAL AIRWAY INTO TRACHEA, VIA OPENING [id number] 04/14/17 PARTIAL REMOVAL OF COLON 58238 04/14/17 RESECTION OF SIGMOID COLON, OPEN APPROACH [id number] 04/14/17 RESPIRATORY VENTILATION, 24-96 CONSECUTIVE HOURS [id number] 04/14/17 VENT MGMT INPAT INIT DAY 76833 04/14/17 VENT MGMT INPAT SUBQ DAY 95083 04/14/17 Assessment/Plan - Problem List Patient Problems: All Active Problems Abscess of sigmoid colon due to diverticulitis (Acute) K57.20 Diverticulitis of sigmoid colon (Acute) K57.32 Obesity (Acute) E66.9 Perforation of sigmoid colon due to diverticulitis (Acute) K57.20 Peritonitis (acute) generalized (Acute) K65.0 - Assessment Assessment: resp failure sepsis diverticulitis encephalopathy - Plan Plan: cont current treatment Nutritional Asmnt/Malnutr-PDOC - Dietary Evaluation Malnutrition Findings (Please click <Entered> for more info): Nutritional Asmnt/Malnutrition Start: 04/19/17 14: 21 Text: Status: Complete Freq: Document 04/19/17 14:21 SHAYAN (Rec: 04/19/17 14:58 [id number]) Nutritional Asmnt/Malnutrition Patient General Information Nutritional Screening Moderate Risk Screening Diagnosis Sepsis, diverticulitis, peritonitis Pertinent Medical Hx/Surgical Hx Asthma, diverticulosis Subjective Information 56 year old male frome home. Pt was restless, moving extremities during visit. 04/14 : sigmoid colectomy, end colostomy, abscess drainage, diffuse peritontis. 04/16: pt started PPN. 04/17: central line and started on TPN. Spoke to family at bedside, explained parenteral nutrition , family undersoto and has no further question at this time. Weight discrepancies noted in EMR, family does not know UBW , estimated nutritional needs based Current Diet Order/ Nutrition Support TPN D10% AA4.25% at 90ml/hr with IL20% 150ml, providing 1401.6kcal Pertinent Medications Dilaudid, Novolog, Culturelle, Magnesium Sulfate, Vancomycin , TPN, Morphine, Multivitamins , Zofran, Protonix, Nacl0.9% Pertinent Labs 04/14: triglycerides 106, total bilirubin 1.1H, glucose 116H 04/17: magnesium 2.5, phsophorus 3.2 04/19: magnesium 1.8L, phosphorus 2.4L, BUN 28H, creatinine 1.3, glucose 154H, total bilirubin 1.1H, triglycerides 238H Nutritional Hx/Data Height 1.7 m Height (Calculated Centimeters) 170.2 Current Weight (lbs) 95.254 kg Weight (Calculated Kilograms) 95.3 Weight (Calculated Grams) 91705.4 [place] Body Weight 148 Weight Status Overweight GI Symptoms Skin Integrity/Comment: [place] 14. Facial non-pitting 1+, bilateral hands pitting 1+ Estimated Nutritional Goals Calories/Kcals/Kg IBW 148/67.3kg Kcals Calculated 2019-2356kcal (30-35kcal/kg) Protein Calculated 101-135g (1.5-2g/kg) Fluid: ml Per MD Nutritional Problem 1. Problem Problem Altered GI function related to Etiology abscess and perforation of sigmoid colon due to diverticulitis aeb Signs/Symptoms: post-operative, on TPN Intervention/Recommendation Comments 1. Recommend TPN D15% AA5.5% at 100ml/hr with IL20% 150ml, providing 2400ml total volume, 2052kcal, 132g protein, meeting 100% of estimated nutritional needs. Carb load 2 .6mg/kg/min (using 210lb adm weight). 2. Monitor for possible refeeding syndrome, 04/18: phsophorus 2.1L, 04/19: magnesium 1.9. 3. Monitor triglycerides, total bilirubin, glucose, renal labs. Expected Outcomes/Goals Expected Outcomes/Goals 1. Pt to meet 100% of estimated nutritional needs on TPN.
[2017-05-08] MEDS: TPN 10%-70% CUSTOM IV SCH (15:26)
[2017-05-08] MEDS: D5-0.45NS 1,000 ML IV SCH (20:49)
--- NOTE | 2017-05-08 22:14 | Progress Notes ---
DATE: 05/08/2017 PULMONARY PROGRESS NOTE PROBLEM LIST: 1. Persistent respiratory failure. 2. Right lower lobe, possibly pneumonia. 3. Questionable DVT. 4. Severe obstructive sleep apnea syndrome with sepsis. SYMPTOMS: The patient is calmer, sedated, not in any acute distress, SIMV of 4, breathing is okay. PHYSICAL EXAMINATION: VITAL SIGNS: Temperature is 98.4, blood pressure 130/63. NECK: Veins not visualized. CHEST: Shows diminished air entry with occasional rhonchi. HEART: Regular. ABDOMEN: Soft and nontender. ABG shows pCO2 of 48 and electrolytes are okay. LABORATORY DATA: The patient's DVT study is pending. ASSESSMENT: The patient clinically appears to be stable, not much changed, persistent shortness of breath, exact etiology is not clearcut, remote possibility of DVT cannot be totally ruled out. PLANS AND SUGGESTIONS: We will go ahead and continue current treatment. Care and plan discussed with nursing staff. Await for DVT studies, etc., and see how it is and go from there. JOB# [id number]
[2017-05-09] MEDS: Meropenem 1 GM in Sodium Chloride 0.9% 100 ML IV SCH ×3 (02:46→20:19)
[2017-05-09] MEDS: Morphine Sulfate 2 mg/mL 1mL Syr IVP PRN ×4 (03:16→20:20)
[2017-05-09] MEDS: Albuterol/Ipratropium Neb 3 ML AERS HHN SCH ×6 (03:48→22:12)
[2017-05-09] MEDS: Metoclopramide 5 mg/mL 2mL Vial IVP SCH ×3 (05:41→20:32)
[2017-05-09 06:26] LABS: % BASOPHILS 1.4 % (0.0-2.0); % LYMPHOCYTES 14.7 % (20.0-50.0); % NEUTROPHILS 62.9 % (40.0-80.0); HEMATOCRIT 25.7 % (39.0-49.0); HEMOGLOBIN 8.8 gm/dL (13.2-17.3); MEAN CELL VOLUME 79.4 fl (80-99); MEAN CORPUSCULAR HEMOGLOBIN 27.3 pg (26.0-30.0); MEAN CORPUSCULAR HGB CONC 34.4 pg (28.0-36.0); NEUTROPHILE ABSOLUTE 5.4 Th/cmm (1.8-8.0); PLATELET COUNT 221 Th/cmm (150-400); RED BLOOD COUNT 3.23 Mil/cmm (4.30-5.70); RED CELL DISTRIBUTION WIDTH 16.1 % (11.5-20.0); WHITE BLOOD COUNT 8.4 Th/cmm (4.8-10.8)
[2017-05-09] MEDS: INSULIN ASPART SLIDING SCALE 100 UNITS/ML UNIT SUBQ SCH ×2 (06:29→23:52)
[2017-05-09] MEDS: Budesonide 0.5 Mg/2 mL Ud HHN SCH ×2 (07:27→19:17)
[2017-05-09 07:39] LABS: ALB/GLOB RATIO 0.5 (1.0-1.8); ALKALINE PHOSPHATASE 81 U/L (34-104); AMYLASE SERUM 53 U/L (29-103); ANION GAP 6.3 (7.0-16.0); BILIRUBIN,TOTAL 0.4 mg/dL (0.3-1.0); BUN - UREA NITROGEN 36 mg/dL (7-25); CALCIUM SERUM 9.5 mg/dL (8.6-10.3); CARBON DIOXIDE 31.2 mEq/L (21.0-31.0); CHLORIDE 109 mEq/L (98-107); CREATININE - SERUM 0.8 mg/dL (0.7-1.3); GLUCOSE 170 mg/dL (70-105); LIPASE 85 U/L (11-82); MAGNESIUM 1.9 mg/dL (1.9-2.7); PHOSPHOROUS 3.7 mg/dL (2.5-5.0); POTASSIUM SERUM 3.5 mEq/L (3.5-5.1); SGOT 32 U/L (13-39); SGPT/ALT 13 U/L (7-52); SODIUM SERUM 143 mEq/L (136-145)
[2017-05-09] MEDS: Chlorhexidine Gluconate 0.12% 15mL Mouthwash MM SCH ×2 (08:00→20:08)
[2017-05-09] MEDS ORDERED: Mag Sulfate 2gm/50mL Premix 2 GM/50 ML BAG IV SCH (08:30)
--- NOTE | 2017-05-09 09:40 | Diagnostic Imaging Report ---
Exam: Ultrasound examination of lower extremities. HISTORY: DVT Findings: Real-time ultrasound examination of the deep venous circulation lower extremities bilaterally performed multiple planes. The study demonstrates normal compressibility and augmentation of deep venous system throughout. IMPRESSION: No evidence for deep venous thrombosis lower extremities bilaterally.
[2017-05-09] MEDS: Fluconazole 200mg/100mL 200 MG/100 ML BAG IV SCH (14:06)
--- NOTE | 2017-05-09 17:04 | General Progress Note ---
Subjective - Review of Systems Service Date: 05/09/17 Subjective: encephalopathy, obtunded, nonverbal Objective - Results Result Diagrams: 05/09/17 06:00 05/09/17 06:00 Recent Labs: Laboratory Last Values WBC 8.4 Th/cmm (4.8-10.8) 05/09/17 06:00 RBC 3.23 Mil/cmm (4.30-5.70) L 05/09/17 06:00 Hgb 8.8 gm/dL (13.2-17.3) L 05/09/17 06:00 Hct 25.7 % (39.0-49.0) L 05/09/17 06:00 MCV 79.4 fl (80-99) L 05/09/17 06:00 MCH 27.3 pg (26.0-30.0) 05/09/17 06:00 MCHC Differential 34.4 pg (28.0-36.0) 05/09/17 06:00 RDW 16.1 % (11.5-20.0) 05/09/17 06:00 Plt Count 221 Th/cmm (150-400) 05/09/17 06:00 MPV 7.0 fl 05/09/17 06:00 Neutrophils % 62.9 % (40.0-80.0) 05/09/17 06:00 Band Neutrophils % 4 % (0-10) 05/02/17 05:15 Lymphocytes % 14.7 % (20.0-50.0) L 05/09/17 06:00 Monocytes % 10.0 % (2.0-10.0) 05/09/17 06:00 Eosinophils % 11.0 % (0.0-5.0) H 05/09/17 06:00 Basophils % 1.4 % (0.0-2.0) 05/09/17 06:00 Neutrophils (Manual) 68 % (40-80) 05/02/17 05:15 Lymphocytes 14 % (20-50) L 05/02/17 05:15 Monocytes 8 % (2-10) 05/02/17 05:15 Eosinophils 6 % (0-5) H 05/02/17 05:15 Metamyelocytes 1 % (0-0) H 04/22/17 05:04 Platelet Estimate ADEQUATE (NORMAL) 05/02/17 05:15 Platelet Morphology NORMAL (NORMAL) 05/02/17 05:15 Anisocytosis 1+ 04/28/17 06:08 Microcytosis 1+ 05/02/17 05:15 RBC Morph Micro Appear ABNORMAL (NORMAL) 05/02/17 05:15 ESR > 140 mm/hr (0-20) H 04/20/17 07:00 PT 11.9 SECONDS (9.5-11.5) H 04/24/17 21:19 INR 1.13 (0.5-1.4) 04/24/17 21:19 PTT (Actin FS) 27.6 SECONDS (26.0-38.0) 04/24/17 21:19 Specimen Source Arterial 05/08/17 09:49 Sample Site Right Radial 05/08/17 09:49 pH 7.47 (7.35-7.45) H 05/08/17 09:49 pCO2 48.0 mmHg (35.0-45.0) H 05/08/17 09:49 pO2 90.0 mmHg (80.0-100.0) 05/08/17 09:49 HCO3 32.6 mEq/L (20.0-26.0) H 05/08/17 09:49 Base Excess 9.8 mEq/L (-3.0-3.0) H 05/08/17 09:49 O2 Saturation 97.0 % (92.0-100.0) 05/08/17 09:49 Chau Test Positive 05/08/17 09:49 Vent Rate 16 05/08/17 09:49 Inspired O2 30 05/08/17 09:49 Tidal Volume 450 05/08/17 09:49 PEEP 3 05/08/17 09:49 Pressure (ins/psv/peep) NA 05/07/17 09:45 Critical Value PING 05/08/17 09:49 Sodium 143 mEq/L (136-145) 05/09/17 06:00 Potassium 3.5 mEq/L (3.5-5.1) 05/09/17 06:00 Chloride 109 mEq/L (98-107) H 05/09/17 06:00 Carbon Dioxide 31.2 mEq/L (21.0-31.0) H 05/09/17 06:00 Anion Gap 6.3 (7.0-16.0) L 05/09/17 06:00 BUN 36 mg/dL (7-25) H 05/09/17 06:00 Creatinine 0.8 mg/dL (0.7-1.3) 05/09/17 06:00 Est GFR ( Amer) > 60.0 ml/min (>90) 05/09/17 06:00 Est GFR (Non-Af Amer) > 60.0 ml/min 05/09/17 06:00 BUN/Creatinine Ratio 45.0 05/09/17 06:00 Glucose 170 mg/dL (70-105) H 05/09/17 06:00 POC Glucose 179 MG/DL (70 - 105) H 05/09/17 06:17 Hemoglobin A1c % 6.7 % (4.0-6.0) H 04/22/17 05:04 Whole Bld Lactic Acid 1.68 mmol/L (0.60-1.99) 05/07/17 04:45 Uric Acid 3.6 mg/dL (4.4-7.6) L 04/20/17 07:00 Calcium 9.5 mg/dL (8.6-10.3) 05/09/17 06:00 Phosphorus 3.7 mg/dL (2.5-5.0) 05/09/17 06:00 Magnesium 1.9 mg/dL (1.9-2.7) 05/09/17 06:00 Total Bilirubin 0.4 mg/dL (0.3-1.0) 05/09/17 06:00 Direct Bilirubin 0.11 mg/dL (0.0-0.2) 05/02/17 05:15 AST 32 U/L (13-39) 05/09/17 06:00 ALT 13 U/L (7-52) 05/09/17 06:00 Alkaline Phosphatase 81 U/L (34-104) 05/09/17 06:00 Ammonia 41 umol/L (16-53) 05/08/17 05:00 Creatine Kinase 136 U/L (30-223) 04/14/17 14:55 Troponin I 0.01 ng/mL (0.01-0.05) 04/22/17 05:04 C-Reactive Protein 23.6 mg/dL (0.0-0.9) H 05/07/17 04:45 B-Natriuretic Peptide 85.5 pg/mL (5.0-100.0) 04/14/17 14:55 Total Protein 6.1 gm/dL (6.0-8.3) 05/09/17 06:00 Albumin 1.9 gm/dL (4.2-5.5) L 05/09/17 06:00 Globulin 4.2 gm/dL 05/09/17 06:00 Albumin/Globulin Ratio 0.5 (1.0-1.8) L 05/09/17 06:00 Prealbumin 10 mg/dL (10-36) 05/08/17 05:00 Triglycerides 383 mg/dL (<150) H 05/05/17 04:35 Cholesterol 104 mg/dL (<200) 05/05/17 04:35 LDL Cholesterol Direct 38 mg/dL (75-193) L 04/14/17 14:55 HDL Cholesterol 13 mg/dL (23-92) L 04/14/17 14:55 Amylase 53 U/L (29-103) 05/09/17 06:00 Lipase 85 U/L (11-82) H 05/09/17 06:00 Urine Source SEN PORT 05/03/17 13:38 Urine Color YELLOW 05/03/17 13:38 Urine Clarity TURBID (CLEAR) 05/03/17 13:38 Urine pH 7.5 05/03/17 13:38 Ur Specific [place] 1.010 (1.005-1.030) 05/03/17 13:38 Urine Protein NEGATIVE mg/dL (NEGATIVE) 05/03/17 13:38 Urine Glucose (UA) NEGATIVE mg/dL (NEGATIVE) 05/03/17 13:38 Urine Ketones NEGATIVE mg/dL (NEGATIVE) 05/03/17 13:38 Urine Blood MODERATE (NEGATIVE) H 05/03/17 13:38 Urine Nitrate NEGATIVE (NEGATIVE) 05/03/17 13:38 Urine Bilirubin NEGATIVE (NEGATIVE) 05/03/17 13:38 Urine Urobilinogen 0.2 E.U./dL (0.2 - 1.0) 05/03/17 13:38 Ur Leukocyte Esterase TRACE (NEGATIVE) H 05/03/17 13:38 Urine RBC 50-100 /hpf (0-5) H 05/03/17 13:38 Urine WBC 6-10 /hpf (0-5) H 05/03/17 13:38 Ur Epithelial Cells FEW /lpf (FEW) 05/03/17 13:38 Amorphous Sediment MANY URATES (NONE SEEN) 04/14/17 15:05 Urine Bacteria FEW /hpf (NONE SEEN) 05/03/17 13:38 Vancomycin Trough 13.5 ug/mL (10-20) 04/19/17 19:20 Helicobacter pylori Ab NEGATIVE (NEGATIVE) 05/04/17 10:05 Blood Type O POSITIVE 05/02/17 07:12 Antibody Screen NEGATIVE 05/02/17 07:12 Crossmatch See Detail 05/02/17 07:12 - Physical Exam Vitals and I&O: Vital Signs Temp 97.8 F 05/09/17 08:00 Pulse 119 05/09/17 15:37 Resp 24 05/09/17 15:38 BP 130/72 05/09/17 10:00 Pulse Ox 98 05/09/17 15:37 Intake & Output 05/08/17 05/09/17 05/09/17 18:59 06:59 18:59 Intake Total 2688.333 740.500 200 Output Total 2810 1160 595 Balance -121.667 -419.500 -395 Weight (lbs) 107.7 kg 107.275 kg 113.398 kg Intake: Intake, IV Amount 1368.333 740.500 D5-0.45NS 1,000 ml @ 40 367.333 mls/hr IV .Q24H [facility] Rx#: [id number] Diltiazem 125 mg In 125 173.167 Dextrose 5% 100 ml @ 10 MG/HR 10 mls/hr IV TITR [facility] Rx#:[id number] Fluconazole 200mg/100mL 100 200 mg In 100 ml @ 100 mls/hr IV Q24HR [facility] Rx#: [id number] Meropenem 1 gm In Sodium 100.000 100 Chloride 0.9% 100 ml @ 100 mls/hr IV Q8H [facility] Rx# :[id number] Multivitamin Inj 10 ml In 943.333 Dextrose 70% 1,740 ml In Amino Acids 10% 500 ml In Intralipids 20% 150 ml @ 100 mls/hr IV .Q24H [facility] Rx#:[id number] Tigecycline 50 mg In 100 100 Sodium Chloride 0.9% 100 ml @ 100 mls/hr IV Q12H [facility] Rx#:[id number] Oral 0 TPN/PPN 1200 200 Other 120 Output: Gastric Drainage 200 100 Drainage 10 10 25 Medial Abdomen 10 10 25 Urine 2600 1000 550 Stool 50 20 Other: Stool Characteristics Soft Liquid Mucoid Active Medications: Current Medications Acetaminophen (Tylenol 650mg/20.3ml Suspension) 650 mg NG Q6H PRN PRN Reason: FEVER/PAIN Stop: 06/21/17 17:45 Albuterol/Ipratropium (Duoneb Neb) 3 ml HHN Q4HRT [facility] Stop: 06/15/17 14:59 Last Admin: 05/09/17 15:36 Dose: 3 ml Amiodarone HCl (Cordarone) 200 mg NG BID [facility] Stop: 06/24/17 23:14 Last Admin: 05/08/17 16:43 Dose: Not Given Budesonide (Pulmicort) 0.5 mg HHN BIDRT [facility] Stop: 06/15/17 18:59 Last Admin: 05/09/17 07:27 Dose: 0.5 mg Chlorhexidine Gluconate (Peridex) 15 ml MM 08,1999 [facility] Stop: 06/30/17 19:59 Last Admin: 05/09/17 08:00 Dose: 15 ml Enalaprilat (Vasotec) 2.5 mg IVP Q4HR PRN PRN Reason: SBP>150 Stop: 07/06/17 15:59 Famotidine (Pepcid) 20 mg IVP Q6HR [facility] Stop: 07/06/17 11:59 Last Admin: 05/09/17 12:15 Dose: 20 mg Multivitamins/Minerals 10 ml/Dextrose/ Amino Acids/Electrolytes/ Fat Emulsion Intravenous 2,400 mls @ 100 mls/hr IV .Q24H [facility] Stop: 06/23/17 15:59 Last Admin: 05/08/17 15:26 Dose: 100 mls/hr Dextrose/Sodium Chloride (D5-0.45ns) 1,000 mls @ 40 mls/hr IV .Q24H [facility] Stop: 06/23/17 15:59 Last Infusion: 05/09/17 06:00 Dose: 40 mls/hr Norepinephrine Bitartrate 4 mg (/ Dextrose) 254 mls @ 0 mls/hr IV TITR PRN; Protocol; 0 MCG/MIN PRN Reason: BP MAINTENANCE (PER PROTOCOL) Stop: 06/30/17 09:25 Last Titration: 05/02/17 07:00 Dose: Infused Meropenem 1 gm/ Sodium (Chloride) 100 mls @ 100 mls/hr IV Q8H [facility] Stop: 06/30/17 11:14 Last Admin: 05/09/17 02:46 Dose: 100 mls/hr Fluconazole (Diflucan) 200 mg in 100 mls @ 100 mls/hr IV Q24HR [facility] Stop: 07/01/17 12:29 Last Admin: 05/09/17 14:06 Dose: 100 mls/hr Tigecycline 50 mg/ Sodium (Chloride) 100 mls @ 100 mls/hr IV Q12H [facility] Stop: 07/05/17 21:59 Last Infusion: 05/08/17 23:01 Dose: Infused Diltiazem HCl 125 mg/ Dextrose 125 mls @ 10 mls/hr IV TITR [facility]; 10 MG/HR PRN Reason: Protocol Stop: 07/06/17 11:14 Last Titration: 05/09/17 06:00 Dose: 10 mg/hr, 10 mls/hr Insulin Aspart (Novolog Insulin Sliding Scale) 0 units SUBQ Q6HR [facility] PRN Reason: Protocol Stop: 06/16/17 17:59 Last Admin: 05/09/17 06:29 Dose: 2 units Lorazepam (Ativan) 1 mg IVP Q4HR PRN; Protocol PRN Reason: Agitation Stop: 07/03/17 16:14 Last Admin: 05/09/17 12:15 Dose: 1 mg Metoclopramide HCl (Reglan) 10 mg IVP Q8HR [facility] Stop: 07/06/17 20:59 Last Admin: 05/09/17 05:41 Dose: 10 mg Metoprolol Tartrate (Lopressor) 25 mg PO BID [facility] Stop: 06/26/17 08:59 Last Admin: 05/08/17 16:43 Dose: Not Given Mineral Oil (Mineral Oil 30 Ml) 30 ml NG DAILY [facility] Stop: 07/04/17 12:29 Last Admin: 05/08/17 08:42 Dose: Not Given Miscellaneous (Probiotic Screen) 1 ea PRN PRN PRN Reason: PROTOCOL Stop: 06/14/17 09:39 Miscellaneous (Tpn Per Pharmacy) 1 ea PRN PRN PRN Reason: PROTOCOL Stop: 06/16/17 12:28 Miscellaneous (Vte Chemical Prophylaxis Screen/ Admission) 1 ea PRN PRN PRN Reason: PROTOCOL Stop: 07/01/17 14:44 Morphine Sulfate (Morphine) 2 mg IVP Q4HR PRN PRN Reason: pain Stop: 07/01/17 09:37 Last Admin: 05/09/17 07:40 Dose: 2 mg Ondansetron HCl (Zofran) 4 mg IVP Q6H PRN PRN Reason: Nausea / Vomiting Stop: 06/13/17 20:08 Last Admin: 05/09/17 12:15 Dose: 4 mg Pantoprazole Sodium (Protonix) 40 mg IVP BID [facility] Stop: 07/01/17 10:14 Last Admin: 05/09/17 08:57 Dose: 40 mg General: Mild distress HEENT: Atraumatic, PERRLA, EOMI, Mucous membr. moist/pink, Other (oral endotracheal tube,NG tube+) Neck: Supple, +2 carotid pulse wo bruit Cardiovascular: Regular rate, Normal S1, Normal S2 Lungs: Other (diffuse rhonchi.) Abdomen: Soft, Other ( wound VAC anterior open abdominal wall wound. L colostomy retracted but still functional w/ stool output.) Extremities: Other (no edema and cyanosis.) Neurological: Reflexes 2+, Other (Patient is intubated and sedated) Psych/Mental Status: Other (Sedated) - Procedures Procedures: Procedures Procedure Code Date BYPASS SIGMOID COLON TO CUTANEOUS, OPEN APPROACH [id number] 04/14/17 INSERT EMERGENCY AIRWAY 70069 04/14/17 INSERTION OF ENDOTRACHEAL AIRWAY INTO TRACHEA, VIA OPENING [id number] 04/14/17 PARTIAL REMOVAL OF COLON 15786 04/14/17 RESECTION OF SIGMOID COLON, OPEN APPROACH [id number] 04/14/17 RESPIRATORY VENTILATION, 24-96 CONSECUTIVE HOURS [id number] 04/14/17 VENT MGMT INPAT INIT DAY 09902 04/14/17 VENT MGMT INPAT SUBQ DAY 91974 04/14/17 Assessment/Plan - Problem List Patient Problems: All Active Problems Abscess of sigmoid colon due to diverticulitis (Acute) K57.20 Diverticulitis of sigmoid colon (Acute) K57.32 Obesity (Acute) E66.9 Perforation of sigmoid colon due to diverticulitis (Acute) K57.20 Peritonitis (acute) generalized (Acute) K65.0 - Assessment Assessment: POD#25; s/p ex lap, sigmoid colectomy, drainage of peritonitis, lysis adhesions , ROLANDO drain placement 04/14 icu status encephalopathic, confused, obtunded, intubated. continue IVfluids +TPN renal insufficiency improved, normal BUN/creat dvt prophylaxis Lovenox SQ colostomy end necrosed and sloughed, severely retracted, but functional w/ stool output..... poor candidate for revision of colostomy open abd wound, wound vac in place, changed q 3days, wound marge, still some yellow slough. continue iv abx. sen cath stricts ins and out supportive care.... s/w family; guarded prognosis. off vasopressors. EGD 05/04 results noted by Reyes/GI peptic ulcer disease, NGT trauma tachycardia, intermittent fevers, normal WBC multiple prior CT abd/pelvis....postop changes, no obvious drainable intra-abd abscess or collections TF via NGT held, residuals high Reyes GI is following, CT abd/pelvis ordered. recommended to family tracheostomy, EGD + PEG, change central line [place] eval? Nutritional Asmnt/Malnutr-PDOC - Dietary Evaluation Malnutrition Findings (Please click <Entered> for more info): Nutritional Asmnt/Malnutrition Start: 04/19/17 14: 21 Text: Status: Complete Freq: Document 04/19/17 14:21 GSUN (Rec: 04/19/17 14:58 [id number]) Nutritional Asmnt/Malnutrition Patient General Information Nutritional Screening Moderate Risk Screening Diagnosis Sepsis, diverticulitis, peritonitis Pertinent Medical Hx/Surgical Hx Asthma, diverticulosis Subjective Information 56 year old male frome home. Pt was restless, moving extremities during visit. 04/14 : sigmoid colectomy, end colostomy, abscess drainage, diffuse peritontis. 04/16: pt started PPN. 04/17: central line and started on TPN. Spoke to family at bedside, explained parenteral nutrition , family undersoto and has no further question at this time. Weight discrepancies noted in EMR, family does not know UBW , estimated nutritional needs based Current Diet Order/ Nutrition Support TPN D10% AA4.25% at 90ml/hr with IL20% 150ml, providing 1401.6kcal Pertinent Medications Dilaudid, Novolog, Culturelle, Magnesium Sulfate, Vancomycin , TPN, Morphine, Multivitamins , Zofran, Protonix, Nacl0.9% Pertinent Labs 04/14: triglycerides 106, total bilirubin 1.1H, glucose 116H 04/17: magnesium 2.5, phsophorus 3.2 04/19: magnesium 1.8L, phosphorus 2.4L, BUN 28H, creatinine 1.3, glucose 154H, total bilirubin 1.1H, triglycerides 238H Nutritional Hx/Data Height 1.7 m Height (Calculated Centimeters) 170.2 Current Weight (lbs) 95.254 kg Weight (Calculated Kilograms) 95.3 Weight (Calculated Grams) 18064.4 [place] Body Weight 148 Weight Status Overweight GI Symptoms Skin Integrity/Comment: [place] 14. Facial non-pitting 1+, bilateral hands pitting 1+ Estimated Nutritional Goals Calories/Kcals/Kg IBW 148/67.3kg Kcals Calculated 2019-2356kcal (30-35kcal/kg) Protein Calculated 101-135g (1.5-2g/kg) Fluid: ml Per MD Nutritional Problem 1. Problem Problem Altered GI function related to Etiology abscess and perforation of sigmoid colon due to diverticulitis aeb Signs/Symptoms: post-operative, on TPN Intervention/Recommendation Comments 1. Recommend TPN D15% AA5.5% at 100ml/hr with IL20% 150ml, providing 2400ml total volume, 2052kcal, 132g protein, meeting 100% of estimated nutritional needs. Carb load 2 .6mg/kg/min (using 210lb adm weight). 2. Monitor for possible refeeding syndrome, 04/18: phsophorus 2.1L, 04/19: magnesium 1.9. 3. Monitor triglycerides, total bilirubin, glucose, renal labs. Expected Outcomes/Goals Expected Outcomes/Goals 1. Pt to meet 100% of estimated nutritional needs on TPN.
--- NOTE | 2017-05-09 17:39 | General Progress Note ---
Subjective - Review of Systems Service Date: 05/09/17 Events since last encounter: still on vent does not follow commands Subjective: lethargic resting comfortably in bed on vent Objective - Results Result Diagrams: 05/09/17 06:00 05/09/17 06:00 Recent Labs: Laboratory Last Values WBC 8.4 Th/cmm (4.8-10.8) 05/09/17 06:00 RBC 3.23 Mil/cmm (4.30-5.70) L 05/09/17 06:00 Hgb 8.8 gm/dL (13.2-17.3) L 05/09/17 06:00 Hct 25.7 % (39.0-49.0) L 05/09/17 06:00 MCV 79.4 fl (80-99) L 05/09/17 06:00 MCH 27.3 pg (26.0-30.0) 05/09/17 06:00 MCHC Differential 34.4 pg (28.0-36.0) 05/09/17 06:00 RDW 16.1 % (11.5-20.0) 05/09/17 06:00 Plt Count 221 Th/cmm (150-400) 05/09/17 06:00 MPV 7.0 fl 05/09/17 06:00 Neutrophils % 62.9 % (40.0-80.0) 05/09/17 06:00 Band Neutrophils % 4 % (0-10) 05/02/17 05:15 Lymphocytes % 14.7 % (20.0-50.0) L 05/09/17 06:00 Monocytes % 10.0 % (2.0-10.0) 05/09/17 06:00 Eosinophils % 11.0 % (0.0-5.0) H 05/09/17 06:00 Basophils % 1.4 % (0.0-2.0) 05/09/17 06:00 Neutrophils (Manual) 68 % (40-80) 05/02/17 05:15 Lymphocytes 14 % (20-50) L 05/02/17 05:15 Monocytes 8 % (2-10) 05/02/17 05:15 Eosinophils 6 % (0-5) H 05/02/17 05:15 Metamyelocytes 1 % (0-0) H 04/22/17 05:04 Platelet Estimate ADEQUATE (NORMAL) 05/02/17 05:15 Platelet Morphology NORMAL (NORMAL) 05/02/17 05:15 Anisocytosis 1+ 04/28/17 06:08 Microcytosis 1+ 05/02/17 05:15 RBC Morph Micro Appear ABNORMAL (NORMAL) 05/02/17 05:15 ESR > 140 mm/hr (0-20) H 04/20/17 07:00 PT 11.9 SECONDS (9.5-11.5) H 04/24/17 21:19 INR 1.13 (0.5-1.4) 04/24/17 21:19 PTT (Actin FS) 27.6 SECONDS (26.0-38.0) 04/24/17 21:19 Specimen Source Arterial 05/08/17 09:49 Sample Site Right Radial 05/08/17 09:49 pH 7.47 (7.35-7.45) H 05/08/17 09:49 pCO2 48.0 mmHg (35.0-45.0) H 05/08/17 09:49 pO2 90.0 mmHg (80.0-100.0) 05/08/17 09:49 HCO3 32.6 mEq/L (20.0-26.0) H 05/08/17 09:49 Base Excess 9.8 mEq/L (-3.0-3.0) H 05/08/17 09:49 O2 Saturation 97.0 % (92.0-100.0) 05/08/17 09:49 Chau Test Positive 05/08/17 09:49 Vent Rate 16 05/08/17 09:49 Inspired O2 30 05/08/17 09:49 Tidal Volume 450 05/08/17 09:49 PEEP 3 05/08/17 09:49 Pressure (ins/psv/peep) NA 05/07/17 09:45 Critical Value PING 05/08/17 09:49 Sodium 143 mEq/L (136-145) 05/09/17 06:00 Potassium 3.5 mEq/L (3.5-5.1) 05/09/17 06:00 Chloride 109 mEq/L (98-107) H 05/09/17 06:00 Carbon Dioxide 31.2 mEq/L (21.0-31.0) H 05/09/17 06:00 Anion Gap 6.3 (7.0-16.0) L 05/09/17 06:00 BUN 36 mg/dL (7-25) H 05/09/17 06:00 Creatinine 0.8 mg/dL (0.7-1.3) 05/09/17 06:00 Est GFR ( Amer) > 60.0 ml/min (>90) 05/09/17 06:00 Est GFR (Non-Af Amer) > 60.0 ml/min 05/09/17 06:00 BUN/Creatinine Ratio 45.0 05/09/17 06:00 Glucose 170 mg/dL (70-105) H 05/09/17 06:00 POC Glucose 179 MG/DL (70 - 105) H 05/09/17 06:17 Hemoglobin A1c % 6.7 % (4.0-6.0) H 04/22/17 05:04 Whole Bld Lactic Acid 1.68 mmol/L (0.60-1.99) 05/07/17 04:45 Uric Acid 3.6 mg/dL (4.4-7.6) L 04/20/17 07:00 Calcium 9.5 mg/dL (8.6-10.3) 05/09/17 06:00 Phosphorus 3.7 mg/dL (2.5-5.0) 05/09/17 06:00 Magnesium 1.9 mg/dL (1.9-2.7) 05/09/17 06:00 Total Bilirubin 0.4 mg/dL (0.3-1.0) 05/09/17 06:00 Direct Bilirubin 0.11 mg/dL (0.0-0.2) 05/02/17 05:15 AST 32 U/L (13-39) 05/09/17 06:00 ALT 13 U/L (7-52) 05/09/17 06:00 Alkaline Phosphatase 81 U/L (34-104) 05/09/17 06:00 Ammonia 41 umol/L (16-53) 05/08/17 05:00 Creatine Kinase 136 U/L (30-223) 04/14/17 14:55 Troponin I 0.01 ng/mL (0.01-0.05) 04/22/17 05:04 C-Reactive Protein 23.6 mg/dL (0.0-0.9) H 05/07/17 04:45 B-Natriuretic Peptide 85.5 pg/mL (5.0-100.0) 04/14/17 14:55 Total Protein 6.1 gm/dL (6.0-8.3) 05/09/17 06:00 Albumin 1.9 gm/dL (4.2-5.5) L 05/09/17 06:00 Globulin 4.2 gm/dL 05/09/17 06:00 Albumin/Globulin Ratio 0.5 (1.0-1.8) L 05/09/17 06:00 Prealbumin 10 mg/dL (10-36) 05/08/17 05:00 Triglycerides 383 mg/dL (<150) H 05/05/17 04:35 Cholesterol 104 mg/dL (<200) 05/05/17 04:35 LDL Cholesterol Direct 38 mg/dL (75-193) L 04/14/17 14:55 HDL Cholesterol 13 mg/dL (23-92) L 04/14/17 14:55 Amylase 53 U/L (29-103) 05/09/17 06:00 Lipase 85 U/L (11-82) H 05/09/17 06:00 Urine Source [place] 05/03/17 13:38 Urine Color YELLOW 05/03/17 13:38 Urine Clarity TURBID (CLEAR) 05/03/17 13:38 Urine pH 7.5 05/03/17 13:38 Ur Specific [place] 1.010 (1.005-1.030) 05/03/17 13:38 Urine Protein NEGATIVE mg/dL (NEGATIVE) 05/03/17 13:38 Urine Glucose (UA) NEGATIVE mg/dL (NEGATIVE) 05/03/17 13:38 Urine Ketones NEGATIVE mg/dL (NEGATIVE) 05/03/17 13:38 Urine Blood MODERATE (NEGATIVE) H 05/03/17 13:38 Urine Nitrate NEGATIVE (NEGATIVE) 05/03/17 13:38 Urine Bilirubin NEGATIVE (NEGATIVE) 05/03/17 13:38 Urine Urobilinogen 0.2 E.U./dL (0.2 - 1.0) 05/03/17 13:38 Ur Leukocyte Esterase TRACE (NEGATIVE) H 05/03/17 13:38 Urine RBC 50-100 /hpf (0-5) H 05/03/17 13:38 Urine WBC 6-10 /hpf (0-5) H 05/03/17 13:38 Ur Epithelial Cells FEW /lpf (FEW) 05/03/17 13:38 Amorphous Sediment MANY URATES (NONE SEEN) 04/14/17 15:05 Urine Bacteria FEW /hpf (NONE SEEN) 05/03/17 13:38 Vancomycin Trough 13.5 ug/mL (10-20) 04/19/17 19:20 Helicobacter pylori Ab NEGATIVE (NEGATIVE) 05/04/17 10:05 Blood Type O POSITIVE 05/02/17 07:12 Antibody Screen NEGATIVE 05/02/17 07:12 Crossmatch See Detail 05/02/17 07:12 - Physical Exam Vitals and I&O: Vital Signs Temp 98.7 F 05/09/17 09:00 Pulse 115 05/09/17 17:29 Resp 24 05/09/17 15:38 BP 131/70 05/09/17 11:00 Pulse Ox 98 05/09/17 17:29 Intake & Output 05/08/17 05/09/17 05/09/17 18:59 06:59 18:59 Intake Total 2688.333 740.500 200 Output Total 2810 1160 595 Balance -121.667 -419.500 -395 Weight (lbs) 107.7 kg 107.275 kg 113.398 kg Intake: Intake, IV Amount 1368.333 740.500 D5-0.45NS 1,000 ml @ 40 367.333 mls/hr IV .Q24H [facility] Rx#: [id number] Diltiazem 125 mg In 125 173.167 Dextrose 5% 100 ml @ 10 MG/HR 10 mls/hr IV TITR [facility] Rx#:[id number] Fluconazole 200mg/100mL 100 200 mg In 100 ml @ 100 mls/hr IV Q24HR [facility] Rx#: [id number] Meropenem 1 gm In Sodium 100.000 100 Chloride 0.9% 100 ml @ 100 mls/hr IV Q8H [facility] Rx# :[id number] Multivitamin Inj 10 ml In 943.333 Dextrose 70% 1,740 ml In Amino Acids 10% 500 ml In Intralipids 20% 150 ml @ 100 mls/hr IV .Q24H [facility] Rx#:[id number] Tigecycline 50 mg In 100 100 Sodium Chloride 0.9% 100 ml @ 100 mls/hr IV Q12H [facility] Rx#:[id number] Oral 0 TPN/PPN 1200 200 Other 120 Output: Gastric Drainage 200 100 Drainage 10 10 25 Medial Abdomen 10 10 25 Urine 2600 1000 550 Stool 50 20 Other: Stool Characteristics Soft Liquid Mucoid Active Medications: Current Medications Acetaminophen (Tylenol 650mg/20.3ml Suspension) 650 mg NG Q6H PRN PRN Reason: FEVER/PAIN Stop: 06/21/17 17:45 Albuterol/Ipratropium (Duoneb Neb) 3 ml HHN Q4HRT [facility] Stop: 06/15/17 14:59 Last Admin: 05/09/17 15:36 Dose: 3 ml Amiodarone HCl (Cordarone) 200 mg NG BID [facility] Stop: 06/24/17 23:14 Last Admin: 05/08/17 16:43 Dose: Not Given Budesonide (Pulmicort) 0.5 mg HHN BIDRT [facility] Stop: 06/15/17 18:59 Last Admin: 05/09/17 07:27 Dose: 0.5 mg Chlorhexidine Gluconate (Peridex) 15 ml MM 0800,2000 [facility] Stop: 06/30/17 19:59 Last Admin: 05/09/17 08:00 Dose: 15 ml Enalaprilat (Vasotec) 2.5 mg IVP Q4HR PRN PRN Reason: SBP>150 Stop: 07/06/17 15:59 Famotidine (Pepcid) 20 mg IVP Q6HR [facility] Stop: 07/06/17 11:59 Last Admin: 05/09/17 12:15 Dose: 20 mg Multivitamins/Minerals 10 ml/Dextrose/ Amino Acids/Electrolytes/ Fat Emulsion Intravenous 2,400 mls @ 100 mls/hr IV .Q24H [facility] Stop: 06/23/17 15:59 Last Admin: 05/08/17 15:26 Dose: 100 mls/hr Dextrose/Sodium Chloride (D5-0.45ns) 1,000 mls @ 40 mls/hr IV .Q24H [facility] Stop: 06/23/17 15:59 Last Infusion: 05/09/17 06:00 Dose: 40 mls/hr Norepinephrine Bitartrate 4 mg (/ Dextrose) 254 mls @ 0 mls/hr IV TITR PRN; Protocol; 0 MCG/MIN PRN Reason: BP MAINTENANCE (PER PROTOCOL) Stop: 06/30/17 09:25 Last Titration: 05/02/17 07:00 Dose: Infused Meropenem 1 gm/ Sodium (Chloride) 100 mls @ 100 mls/hr IV Q8H [facility] Stop: 06/30/17 11:14 Last Admin: 05/09/17 02:46 Dose: 100 mls/hr Fluconazole (Diflucan) 200 mg in 100 mls @ 100 mls/hr IV Q24HR [facility] Stop: 07/01/17 12:29 Last Admin: 05/09/17 14:06 Dose: 100 mls/hr Tigecycline 50 mg/ Sodium (Chloride) 100 mls @ 100 mls/hr IV Q12H [facility] Stop: 07/05/17 21:59 Last Infusion: 05/08/17 23:01 Dose: Infused Diltiazem HCl 125 mg/ Dextrose 125 mls @ 10 mls/hr IV TITR [facility]; 10 MG/HR PRN Reason: Protocol Stop: 07/06/17 11:14 Last Titration: 05/09/17 06:00 Dose: 10 mg/hr, 10 mls/hr Insulin Aspart (Novolog Insulin Sliding Scale) 0 units SUBQ Q6HR [facility] PRN Reason: Protocol Stop: 06/16/17 17:59 Last Admin: 05/09/17 06:29 Dose: 2 units Lorazepam (Ativan) 1 mg IVP Q4HR PRN; Protocol PRN Reason: Agitation Stop: 07/03/17 16:14 Last Admin: 05/09/17 12:15 Dose: 1 mg Metoclopramide HCl (Reglan) 10 mg IVP Q8HR [facility] Stop: 07/06/17 20:59 Last Admin: 05/09/17 05:41 Dose: 10 mg Metoprolol Tartrate (Lopressor) 25 mg PO BID [facility] Stop: 06/26/17 08:59 Last Admin: 05/08/17 16:43 Dose: Not Given Mineral Oil (Mineral Oil 30 Ml) 30 ml NG DAILY [facility] Stop: 07/04/17 12:29 Last Admin: 05/08/17 08:42 Dose: Not Given Miscellaneous (Probiotic Screen) 1 ea MC PRN PRN PRN Reason: PROTOCOL Stop: 06/14/17 09:39 Miscellaneous (Tpn Per Pharmacy) 1 ea PRN PRN PRN Reason: PROTOCOL Stop: 06/16/17 12:28 Miscellaneous (Vte Chemical Prophylaxis Screen/ Admission) 1 ea PRN PRN PRN Reason: PROTOCOL Stop: 07/01/17 14:44 Morphine Sulfate (Morphine) 2 mg IVP Q4HR PRN PRN Reason: pain Stop: 07/01/17 09:37 Last Admin: 05/09/17 07:40 Dose: 2 mg Ondansetron HCl (Zofran) 4 mg IVP Q6H PRN PRN Reason: Nausea / Vomiting Stop: 06/13/17 20:08 Last Admin: 05/09/17 12:15 Dose: 4 mg Pantoprazole Sodium (Protonix) 40 mg IVP BID [facility] Stop: 07/01/17 10:14 Last Admin: 05/09/17 08:57 Dose: 40 mg General: Mild distress HEENT: Atraumatic, PERRLA, EOMI, Mucous membr. moist/pink, Other (oral endotracheal tube,NG tube+) Neck: Supple, +2 carotid pulse wo bruit Cardiovascular: Regular rate, Normal S1, Normal S2 Lungs: Other (diffuse rhonchi.) Abdomen: Soft, Other ( wound VAC anterior open abdominal wall wound. L colostomy retracted but still functional w/ stool output.) Extremities: Other (no edema and cyanosis.) Neurological: Reflexes 2+, Other (Patient is intubated and sedated) Psych/Mental Status: Other (Sedated) - Procedures Procedures: Procedures Procedure Code Date BYPASS SIGMOID COLON TO CUTANEOUS, OPEN APPROACH [id number] 04/14/17 INSERT EMERGENCY AIRWAY 81186 04/14/17 INSERTION OF ENDOTRACHEAL AIRWAY INTO TRACHEA, VIA OPENING [id number] 04/14/17 PARTIAL REMOVAL OF COLON 86779 04/14/17 RESECTION OF SIGMOID COLON, OPEN APPROACH [id number] 04/14/17 RESPIRATORY VENTILATION, 24-96 CONSECUTIVE HOURS [id number] 04/14/17 VENT MGMT INPAT INIT DAY 51985 04/14/17 VENT MGMT INPAT SUBQ DAY 15439 04/14/17 Assessment/Plan - Problem List Patient Problems: All Active Problems Abscess of sigmoid colon due to diverticulitis (Acute) K57.20 Diverticulitis of sigmoid colon (Acute) K57.32 Obesity (Acute) E66.9 Perforation of sigmoid colon due to diverticulitis (Acute) K57.20 Peritonitis (acute) generalized (Acute) K65.0 - Assessment Assessment: resp failure sepsis diverticulitis encephalopathy - Plan Plan: cont current treatment d/w Dr. Trevino placed call to Dr. Bro for discussion of trach D/w family at bedside, daughter and son Nutritional Asmnt/Malnutr-PDOC - Dietary Evaluation Malnutrition Findings (Please click <Entered> for more info): Nutritional Asmnt/Malnutrition Start: 04/19/17 14: 21 Text: Status: Complete Freq: Document 04/19/17 14:21 GSUN (Rec: 04/19/17 14:58 [id number]) Nutritional Asmnt/Malnutrition Patient General Information Nutritional Screening Moderate Risk Screening Diagnosis Sepsis, diverticulitis, peritonitis Pertinent Medical Hx/Surgical Hx Asthma, diverticulosis Subjective Information 56 year old male frome home. Pt was restless, moving extremities during visit. 04/14 : sigmoid colectomy, end colostomy, abscess drainage, diffuse peritontis. 04/16: pt started PPN. 04/17: central line and started on TPN. Spoke to family at bedside, explained parenteral nutrition , family undersoto and has no further question at this time. Weight discrepancies noted in EMR, family does not know UBW , estimated nutritional needs based Current Diet Order/ Nutrition Support TPN D10% AA4.25% at 90ml/hr with IL20% 150ml, providing 1401.6kcal Pertinent Medications Dilaudid, Novolog, Culturelle, Magnesium Sulfate, Vancomycin , TPN, Morphine, Multivitamins , Zofran, Protonix, Nacl0.9% Pertinent Labs 04/14: triglycerides 106, total bilirubin 1.1H, glucose 116H 04/17: magnesium 2.5, phsophorus 3.2 04/19: magnesium 1.8L, phosphorus 2.4L, BUN 28H, creatinine 1.3, glucose 154H, total bilirubin 1.1H, triglycerides 238H Nutritional Hx/Data Height 1.7 m Height (Calculated Centimeters) 170.2 Current Weight (lbs) 95.254 kg Weight (Calculated Kilograms) 95.3 Weight (Calculated Grams) 09241.4 [place] Body Weight 148 Weight Status Overweight GI Symptoms Skin Integrity/Comment: [place] 14. Facial non-pitting 1+, bilateral hands pitting 1+ Estimated Nutritional Goals Calories/Kcals/Kg IBW 148/67.3kg Kcals Calculated 2018-2356kcal (30-35kcal/kg) Protein Calculated 101-135g (1.5-2g/kg) Fluid: ml Per MD Nutritional Problem 1. Problem Problem Altered GI function related to Etiology abscess and perforation of sigmoid colon due to diverticulitis aeb Signs/Symptoms: post-operative, on TPN Intervention/Recommendation Comments 1. Recommend TPN D15% AA5.5% at 100ml/hr with IL20% 150ml, providing 2400ml total volume, 2052kcal, 132g protein, meeting 100% of estimated nutritional needs. Carb load 2 .6mg/kg/min (using 210lb adm weight). 2. Monitor for possible refeeding syndrome, 04/18: phsophorus 2.1L, 04/19: magnesium 1.9. 3. Monitor triglycerides, total bilirubin, glucose, renal labs. Expected Outcomes/Goals Expected Outcomes/Goals 1. Pt to meet 100% of estimated nutritional needs on TPN.
[2017-05-09] MEDS: TPN 10%-70% CUSTOM IV SCH (17:43)
--- NOTE | 2017-05-09 21:23 | Progress Notes ---
DATE: 05/09/2017 PROBLEM LIST: 1. Persistent respiratory failure. 2. Questionable right-sided pneumonia. 3. Acute severe encephalopathy with persistent tenderness in the lower abdomen. SYMPTOMS: None. The patient is lethargic, sleepy, barely opens eyes slightly tachypneic, no respiratory distress. PHYSICAL EXAMINATION: VITAL SIGNS: Temperature is around 99, heart is 97-108, blood pressure is normotensive, saturation is 99% on 30%. NECK: Veins not visualized. Good bilateral carotid upstroke. CHEST: Shows diminished air entry with occasional rhonchi. HEART: Regular. ABDOMEN: Slightly tender lower abdomen. LABORATORY DATA: The patient's chest x-ray yesterday did not show significantly much of a change. ASSESSMENT: The patient is clinically stable, not much changed. PLANS AND SUGGESTION: We will go ahead and continue current treatment. We will follow through other studies in the next few days. Care and plan discussed with the patient's daughter and son at the bedside. JOB# [id number]
--- NOTE | 2017-05-09 23:54 | Infectious Disease Prog Note ---
Infectious Disease Subjective - Review of Systems Service Date: 05/09/17 Subjective: No new change. Continues to have Intermittent fevers. Intubated nasally, on the ventilator support. on ngt intermittent suction. Infectious Disease Objective - Results Result Diagrams: 05/09/17 06:00 05/09/17 06:00 Recent Labs: Laboratory Last Values WBC 8.4 Th/cmm (4.8-10.8) 05/09/17 06:00 RBC 3.23 Mil/cmm (4.30-5.70) L 05/09/17 06:00 Hgb 8.8 gm/dL (13.2-17.3) L 05/09/17 06:00 Hct 25.7 % (39.0-49.0) L 05/09/17 06:00 MCV 79.4 fl (80-99) L 05/09/17 06:00 MCH 27.3 pg (26.0-30.0) 05/09/17 06:00 MCHC Differential 34.4 pg (28.0-36.0) 05/09/17 06:00 RDW 16.1 % (11.5-20.0) 05/09/17 06:00 Plt Count 221 Th/cmm (150-400) 05/09/17 06:00 MPV 7.0 fl 05/09/17 06:00 Neutrophils % 62.9 % (40.0-80.0) 05/09/17 06:00 Band Neutrophils % 4 % (0-10) 05/02/17 05:15 Lymphocytes % 14.7 % (20.0-50.0) L 05/09/17 06:00 Monocytes % 10.0 % (2.0-10.0) 05/09/17 06:00 Eosinophils % 11.0 % (0.0-5.0) H 05/09/17 06:00 Basophils % 1.4 % (0.0-2.0) 05/09/17 06:00 Neutrophils (Manual) 68 % (40-80) 05/02/17 05:15 Lymphocytes 14 % (20-50) L 05/02/17 05:15 Monocytes 8 % (2-10) 05/02/17 05:15 Eosinophils 6 % (0-5) H 05/02/17 05:15 Metamyelocytes 1 % (0-0) H 04/22/17 05:04 Platelet Estimate ADEQUATE (NORMAL) 05/02/17 05:15 Platelet Morphology NORMAL (NORMAL) 05/02/17 05:15 Anisocytosis 1+ 04/28/17 06:08 Microcytosis 1+ 05/02/17 05:15 RBC Morph Micro Appear ABNORMAL (NORMAL) 05/02/17 05:15 ESR > 140 mm/hr (0-20) H 04/20/17 07:00 PT 11.9 SECONDS (9.5-11.5) H 04/24/17 21:19 INR 1.13 (0.5-1.4) 04/24/17 21:19 PTT (Actin FS) 27.6 SECONDS (26.0-38.0) 04/24/17 21:19 Specimen Source Arterial 05/08/17 09:49 Sample Site Right Radial 05/08/17 09:49 pH 7.47 (7.35-7.45) H 05/08/17 09:49 pCO2 48.0 mmHg (35.0-45.0) H 05/08/17 09:49 pO2 90.0 mmHg (80.0-100.0) 05/08/17 09:49 HCO3 32.6 mEq/L (20.0-26.0) H 05/08/17 09:49 Base Excess 9.8 mEq/L (-3.0-3.0) H 05/08/17 09:49 O2 Saturation 97.0 % (92.0-100.0) 05/08/17 09:49 Chau Test Positive 05/08/17 09:49 Vent Rate 16 05/08/17 09:49 Inspired O2 30 05/08/17 09:49 Tidal Volume 450 05/08/17 09:49 PEEP 3 05/08/17 09:49 Pressure (ins/psv/peep) NA 05/07/17 09:45 Critical Value PING 05/08/17 09:49 Sodium 143 mEq/L (136-145) 05/09/17 06:00 Potassium 3.5 mEq/L (3.5-5.1) 05/09/17 06:00 Chloride 109 mEq/L (98-107) H 05/09/17 06:00 Carbon Dioxide 31.2 mEq/L (21.0-31.0) H 05/09/17 06:00 Anion Gap 6.3 (7.0-16.0) L 05/09/17 06:00 BUN 36 mg/dL (7-25) H 05/09/17 06:00 Creatinine 0.8 mg/dL (0.7-1.3) 05/09/17 06:00 Est GFR ( Amer) > 60.0 ml/min (>90) 05/09/17 06:00 Est GFR (Non-Af Amer) > 60.0 ml/min 05/09/17 06:00 BUN/Creatinine Ratio 45.0 05/09/17 06:00 Glucose 170 mg/dL (70-105) H 05/09/17 06:00 POC Glucose 165 MG/DL (70 - 105) H 05/09/17 23:32 Hemoglobin A1c % 6.7 % (4.0-6.0) H 04/22/17 05:04 Whole Bld Lactic Acid 1.68 mmol/L (0.60-1.99) 05/07/17 04:45 Uric Acid 3.6 mg/dL (4.4-7.6) L 04/20/17 07:00 Calcium 9.5 mg/dL (8.6-10.3) 05/09/17 06:00 Phosphorus 3.7 mg/dL (2.5-5.0) 05/09/17 06:00 Magnesium 1.9 mg/dL (1.9-2.7) 05/09/17 06:00 Total Bilirubin 0.4 mg/dL (0.3-1.0) 05/09/17 06:00 Direct Bilirubin 0.11 mg/dL (0.0-0.2) 05/02/17 05:15 AST 32 U/L (13-39) 05/09/17 06:00 ALT 13 U/L (7-52) 05/09/17 06:00 Alkaline Phosphatase 81 U/L (34-104) 05/09/17 06:00 Ammonia 41 umol/L (16-53) 05/08/17 05:00 Creatine Kinase 136 U/L (30-223) 04/14/17 14:55 Troponin I 0.01 ng/mL (0.01-0.05) 04/22/17 05:04 C-Reactive Protein 23.6 mg/dL (0.0-0.9) H 05/07/17 04:45 B-Natriuretic Peptide 85.5 pg/mL (5.0-100.0) 04/14/17 14:55 Total Protein 6.1 gm/dL (6.0-8.3) 05/09/17 06:00 Albumin 1.9 gm/dL (4.2-5.5) L 05/09/17 06:00 Globulin 4.2 gm/dL 05/09/17 06:00 Albumin/Globulin Ratio 0.5 (1.0-1.8) L 05/09/17 06:00 Prealbumin 10 mg/dL (10-36) 05/08/17 05:00 Triglycerides 383 mg/dL (<150) H 05/05/17 04:35 Cholesterol 104 mg/dL (<200) 05/05/17 04:35 LDL Cholesterol Direct 38 mg/dL (75-193) L 04/14/17 14:55 HDL Cholesterol 13 mg/dL (23-92) L 04/14/17 14:55 Amylase 53 U/L (29-103) 05/09/17 06:00 Lipase 85 U/L (11-82) H 05/09/17 06:00 Urine Source [place] 05/03/17 13:38 Urine Color YELLOW 05/03/17 13:38 Urine Clarity TURBID (CLEAR) 05/03/17 13:38 Urine pH 7.5 05/03/17 13:38 Ur Specific [place] 1.010 (1.005-1.030) 05/03/17 13:38 Urine Protein NEGATIVE mg/dL (NEGATIVE) 05/03/17 13:38 Urine Glucose (UA) NEGATIVE mg/dL (NEGATIVE) 05/03/17 13:38 Urine Ketones NEGATIVE mg/dL (NEGATIVE) 05/03/17 13:38 Urine Blood MODERATE (NEGATIVE) H 05/03/17 13:38 Urine Nitrate NEGATIVE (NEGATIVE) 05/03/17 13:38 Urine Bilirubin NEGATIVE (NEGATIVE) 05/03/17 13:38 Urine Urobilinogen 0.2 E.U./dL (0.2 - 1.0) 05/03/17 13:38 Ur Leukocyte Esterase TRACE (NEGATIVE) H 05/03/17 13:38 Urine RBC 50-100 /hpf (0-5) H 05/03/17 13:38 Urine WBC 6-10 /hpf (0-5) H 05/03/17 13:38 Ur Epithelial Cells FEW /lpf (FEW) 05/03/17 13:38 Amorphous Sediment MANY URATES (NONE SEEN) 04/14/17 15:05 Urine Bacteria FEW /hpf (NONE SEEN) 05/03/17 13:38 Vancomycin Trough 13.5 ug/mL (10-20) 04/19/17 19:20 Helicobacter pylori Ab NEGATIVE (NEGATIVE) 05/04/17 10:05 Blood Type O POSITIVE 05/02/17 07:12 Antibody Screen NEGATIVE 05/02/17 07:12 Crossmatch See Detail 05/02/17 07:12 - Physical Exam Vitals and I&O: Vital Signs Temp 99.6 F 05/09/17 20:00 Pulse 112 05/09/17 22:30 Resp 16 05/09/17 22:00 BP 131/62 05/09/17 22:30 Pulse Ox 96 05/09/17 22:12 Intake & Output 05/09/17 05/09/17 05/10/17 06:59 18:59 06:59 Intake Total 053.483 3019 330 Output Total 1160 595 Balance -525.172 6427 330 Weight (lbs) 107.275 kg 113.398 kg Intake: Intake, IV Amount 421.429 4801 330 D5-0.45NS 1,000 ml @ 40 367.333 mls/hr IV .Q24H [facility] Rx#: [id number] Diltiazem 125 mg In 173.167 Dextrose 5% 100 ml @ 10 MG/HR 10 mls/hr IV TITR [facility] Rx#:[id number] Meropenem 1 gm In Sodium 100 100 130 Chloride 0.9% 100 ml @ 100 mls/hr IV Q8H [facility] Rx# :[id number] Multivitamin Inj 10 ml In 2400 Dextrose 70% 1,740 ml In Amino Acids 10% 500 ml In Intralipids 20% 150 ml @ 100 mls/hr IV .Q24H [facility] Rx#:[id number] Tigecycline 50 mg In 100 200 Sodium Chloride 0.9% 100 ml @ 100 mls/hr IV Q12H [facility] Rx#:[id number] Oral 0 TPN/PPN 200 Output: Gastric Drainage 100 Drainage 10 25 Medial Abdomen 10 25 Urine 1000 550 Stool 50 20 Other: Stool Characteristics Soft Liquid Liquid Brown Active Medications: Current Medications Acetaminophen (Tylenol 650mg/20.3ml Suspension) 650 mg NG Q6H PRN PRN Reason: FEVER/PAIN Stop: 06/21/17 17:45 Albuterol/Ipratropium (Duoneb Neb) 3 ml HHN Q4HRT [facility] Stop: 06/15/17 14:59 Last Admin: 05/09/17 22:12 Dose: 3 ml Amiodarone HCl (Cordarone) 200 mg NG BID [facility] Stop: 06/24/17 23:14 Last Admin: 05/09/17 17:00 Dose: Not Given Budesonide (Pulmicort) 0.5 mg HHN BIDRT [facility] Stop: 06/15/17 18:59 Last Admin: 05/09/17 19:17 Dose: 0.5 mg Chlorhexidine Gluconate (Peridex) 15 ml MM 0800,2000 [facility] Stop: 06/30/17 19:59 Last Admin: 05/09/17 20:08 Dose: 15 ml Enalaprilat (Vasotec) 2.5 mg IVP Q4HR PRN PRN Reason: SBP>150 Stop: 07/06/17 15:59 Famotidine (Pepcid) 20 mg IVP Q6HR [facility] Stop: 07/06/17 11:59 Last Admin: 05/09/17 23:28 Dose: 20 mg Multivitamins/Minerals 10 ml/Dextrose/ Amino Acids/Electrolytes/ Fat Emulsion Intravenous 2,400 mls @ 100 mls/hr IV .Q24H [facility] Stop: 06/23/17 15:59 Last Admin: 05/09/17 17:43 Dose: 100 mls/hr Dextrose/Sodium Chloride (D5-0.45ns) 1,000 mls @ 40 mls/hr IV .Q24H [facility] Stop: 06/23/17 15:59 Last Infusion: 05/09/17 06:00 Dose: 40 mls/hr Norepinephrine Bitartrate 4 mg (/ Dextrose) 254 mls @ 0 mls/hr IV TITR PRN; Protocol; 0 MCG/MIN PRN Reason: BP MAINTENANCE (PER PROTOCOL) Stop: 06/30/17 09:25 Last Titration: 05/02/17 07:00 Dose: Infused Meropenem 1 gm/ Sodium (Chloride) 100 mls @ 100 mls/hr IV Q8H [facility] Stop: 06/30/17 11:14 Last Infusion: 05/09/17 21:20 Dose: Infused Fluconazole (Diflucan) 200 mg in 100 mls @ 100 mls/hr IV Q24HR [facility] Stop: 07/01/17 12:29 Last Admin: 05/09/17 14:06 Dose: 100 mls/hr Tigecycline 50 mg/ Sodium (Chloride) 100 mls @ 100 mls/hr IV Q12H [facility] Stop: 07/05/17 21:59 Last Infusion: 05/09/17 22:59 Dose: Infused Diltiazem HCl 125 mg/ Dextrose 125 mls @ 10 mls/hr IV TITR [facility]; 10 MG/HR PRN Reason: Protocol Stop: 07/06/17 11:14 Last Titration: 05/09/17 06:00 Dose: 10 mg/hr, 10 mls/hr Insulin Aspart (Novolog Insulin Sliding Scale) 0 units SUBQ Q6HR [facility] PRN Reason: Protocol Stop: 06/16/17 17:59 Last Admin: 05/09/17 06:29 Dose: 2 units Lorazepam (Ativan) 1 mg IVP Q4HR PRN; Protocol PRN Reason: Agitation Stop: 07/03/17 16:14 Last Admin: 05/09/17 22:00 Dose: 1 mg Metoclopramide HCl (Reglan) 10 mg IVP Q8HR [facility] Stop: 07/06/17 20:59 Last Admin: 05/09/17 20:32 Dose: 10 mg Metoprolol Tartrate (Lopressor) 25 mg PO BID [facility] Stop: 06/26/17 08:59 Last Admin: 05/09/17 17:00 Dose: Not Given Mineral Oil (Mineral Oil 30 Ml) 30 ml NG DAILY [facility] Stop: 07/04/17 12:29 Last Admin: 05/09/17 20:00 Dose: Not Given Miscellaneous (Probiotic Screen) 1 ea PRN PRN PRN Reason: PROTOCOL Stop: 06/14/17 09:39 Miscellaneous (Tpn Per Pharmacy) 1 ea PRN PRN PRN Reason: PROTOCOL Stop: 06/16/17 12:28 Miscellaneous (Vte Chemical Prophylaxis Screen/ Admission) 1 ea MC PRN PRN PRN Reason: PROTOCOL Stop: 07/01/17 14:44 Morphine Sulfate (Morphine) 2 mg IVP Q4HR PRN PRN Reason: pain Stop: 07/01/17 09:37 Last Admin: 05/09/17 20:20 Dose: 2 mg Ondansetron HCl (Zofran) 4 mg IVP Q6H PRN PRN Reason: Nausea / Vomiting Stop: 06/13/17 20:08 Last Admin: 05/09/17 12:15 Dose: 4 mg Pantoprazole Sodium (Protonix) 40 mg IVP BID [facility] Stop: 07/01/17 10:14 Last Admin: 05/09/17 17:30 Dose: 40 mg General: no acute distress, well developed, well nourished HEENT: atraumatic, normocephalic, PERRLA Neck: supple, no thyromegaly Cardiovascular: S1S2, regular Lungs: clear to auscultation bilaterally, clear to percussion Abdomen: soft, no tender, no distended, no mass, no hepatomegaly Extremities: edema, no cyanosis, no clubbing Neurological: awake, alert, oriented, CN 2-12 intact Skin: intact, other (erythema of hte legs.), no rash - Procedures Procedures: Procedures Procedure Code Date BYPASS SIGMOID COLON TO CUTANEOUS, OPEN APPROACH [id number] 04/14/17 INSERT EMERGENCY AIRWAY 38421 04/14/17 INSERTION OF ENDOTRACHEAL AIRWAY INTO TRACHEA, VIA OPENING [id number] 04/14/17 PARTIAL REMOVAL OF COLON 62015 04/14/17 RESECTION OF SIGMOID COLON, OPEN APPROACH [id number] 04/14/17 RESPIRATORY VENTILATION, 24-96 CONSECUTIVE HOURS [id number] 04/14/17 VENT MGMT INPAT INIT DAY 96823 04/14/17 VENT MGMT INPAT SUBQ DAY 58460 04/14/17 Infectious Disease Assmt/Plan - Problem List Patient Problems: All Active Problems Abscess of sigmoid colon due to diverticulitis (Acute) K57.20 Diverticulitis of sigmoid colon (Acute) K57.32 Obesity (Acute) E66.9 Perforation of sigmoid colon due to diverticulitis (Acute) K57.20 Peritonitis (acute) generalized (Acute) K65.0 - Assessment Assessment: 1. Sepsis. febrile. 2. Diverticulitis, sigmoid diverticula to with support complicated by multiple abscesses and peritonitis. treated with expl lap. lactic asid WNL. 3. Post operatively, on ventilator. 4. Peritonitis. Likely polymicrobial. 5. Asthma exacerbation. 6. History of arthritis. 7. Distended abdomen likely post operative ileus. Rule out small bowel obstruction. 8. SEKOU. Improved. 9. Post op, paralytic ileus. improved. 10. Wrist cellulitis, worse on left with destruction of bones. X ray of the left wrist suggested osteomyelitis. 11. Wound dehiscence. 12. Vent dependent respiratory failure. 13. Left leg cellulitis. 14. Pneumonia, ( On CT scan). 15. fever might be from cellulitis, peritonitis or pneumonia. even due to ileus. however, there is no leukocytosis, no bandemia, normal differential and no reactive thrombocytosis. 16. Ileus, on ngt suction. 17. Anasarca. - Plan Plan: Continue merrem and diflucan. Change zyvox to tygacil as patient continues to have fevers and would like to dc zyvox for its potential side effects. Blood c/s, sepsis w/u. May consider to change all the lines, if patient remains febrile. KUB in am. give lasix and BNP, KUB in AM. poor prognosis. Nutritional Asmnt/Malnutr-PDOC - Dietary Evaluation Malnutrition Findings (Please click <Entered> for more info): Nutritional Asmnt/Malnutrition Start: 04/19/17 14: 21 Text: Status: Complete Freq: Document 04/19/17 14:21 [email or web address] (Rec: 04/19/17 14:58 [id number]) Nutritional Asmnt/Malnutrition Patient General Information Nutritional Screening Moderate Risk Screening Diagnosis Sepsis, diverticulitis, peritonitis Pertinent Medical Hx/Surgical Hx Asthma, diverticulosis Subjective Information 56 year old male frome home. Pt was restless, moving extremities during visit. 04/14 : sigmoid colectomy, end colostomy, abscess drainage, diffuse peritontis. 04/16: pt started PPN. 04/17: central line and started on TPN. Spoke to family at bedside, explained parenteral nutrition , family undersoto and has no further question at this time. Weight discrepancies noted in EMR, family does not know UBW , estimated nutritional needs based Current Diet Order/ Nutrition Support TPN D10% AA4.25% at 90ml/hr with IL20% 150ml, providing 1401.6kcal Pertinent Medications Dilaudid, Novolog, Culturelle, Magnesium Sulfate, Vancomycin , TPN, Morphine, Multivitamins , Zofran, Protonix, Nacl0.9% Pertinent Labs 04/14: triglycerides 106, total bilirubin 1.1H, glucose 116H 04/17: magnesium 2.5, phsophorus 3.2 04/19: magnesium 1.8L, phosphorus 2.4L, BUN 28H, creatinine 1.3, glucose 154H, total bilirubin 1.1H, triglycerides 238H Nutritional Hx/Data Height 1.7 m Height (Calculated Centimeters) 170.2 Current Weight (lbs) 95.254 kg Weight (Calculated Kilograms) 95.3 Weight (Calculated Grams) 32839.4 [place] Body Weight 148 Weight Status Overweight GI Symptoms Skin Integrity/Comment: [place] 14. Facial non-pitting 1+, bilateral hands pitting 1+ Estimated Nutritional Goals Calories/Kcals/Kg IBW 148/67.3kg Kcals Calculated 2019-2356kcal (30-35kcal/kg) Protein Calculated 101-135g (1.5-2g/kg) Fluid: ml Per MD Nutritional Problem 1. Problem Problem Altered GI function related to Etiology abscess and perforation of sigmoid colon due to diverticulitis aeb Signs/Symptoms: post-operative, on TPN Intervention/Recommendation Comments 1. Recommend TPN D15% AA5.5% at 100ml/hr with IL20% 150ml, providing 2400ml total volume, 2052kcal, 132g protein, meeting 100% of estimated nutritional needs. Carb load 2 .6mg/kg/min (using 210lb adm weight). 2. Monitor for possible refeeding syndrome, 04/18: phsophorus 2.1L, 04/19: magnesium 1.9. 3. Monitor triglycerides, total bilirubin, glucose, renal labs. Expected Outcomes/Goals Expected Outcomes/Goals 1. Pt to meet 100% of estimated nutritional needs on TPN.
[2017-05-10] MEDS: Morphine Sulfate 2 mg/mL 1mL Syr IVP PRN ×3 (01:07→17:18)
[2017-05-10] MEDS: Albuterol/Ipratropium Neb 3 ML AERS HHN SCH ×6 (01:59→22:54)
[2017-05-10] MEDS: Metoclopramide 5 mg/mL 2mL Vial IVP SCH ×3 (04:27→20:29)
[2017-05-10 05:29] LABS: ALB/GLOB RATIO 0.4 (1.0-1.8); ALKALINE PHOSPHATASE 97 U/L (34-104); ANION GAP 8.6 (7.0-16.0); BILIRUBIN,TOTAL 0.4 mg/dL (0.3-1.0); BUN - UREA NITROGEN 38 mg/dL (7-25); CALCIUM SERUM 9.9 mg/dL (8.6-10.3); CARBON DIOXIDE 29.7 mEq/L (21.0-31.0); CHLORIDE 110 mEq/L (98-107); GLUCOSE 151 mg/dL (70-105); MAGNESIUM 2.2 mg/dL (1.9-2.7); PHOSPHOROUS 4.4 mg/dL (2.5-5.0); POTASSIUM SERUM 4.3 mEq/L (3.5-5.1); SGOT 40 U/L (13-39); SGPT/ALT 15 U/L (7-52); SODIUM SERUM 144 mEq/L (136-145)
[2017-05-10 05:30] LABS: % BASOPHILS 0.8 % (0.0-2.0); % EOSINOPHILS 9.7 % (0.0-5.0); % LYMPHOCYTES 22.6 % (20.0-50.0); % MONOCYTES 12.1 % (2.0-10.0); % NEUTROPHILS 54.8 % (40.0-80.0); HEMATOCRIT 28.1 % (39.0-49.0); HEMOGLOBIN 9.4 gm/dL (13.2-17.3); MEAN CELL VOLUME 81.5 fl (80-99); MEAN CORPUSCULAR HEMOGLOBIN 27.3 pg (26.0-30.0); MEAN CORPUSCULAR HGB CONC 33.5 pg (28.0-36.0); MEAN PLATELET VOLUME 7.7 fl; NEUTROPHILE ABSOLUTE 4.8 Th/cmm (1.8-8.0); RED BLOOD COUNT 3.45 Mil/cmm (4.30-5.70); RED CELL DISTRIBUTION WIDTH 16.5 % (11.5-20.0); WHITE BLOOD COUNT 8.6 Th/cmm (4.8-10.8)
[2017-05-10] MEDS: Meropenem 1 GM in Sodium Chloride 0.9% 100 ML IV SCH ×3 (05:42→18:15)
[2017-05-10 05:51] LABS: PLATELET COUNT 269 Th/cmm (150-400)
[2017-05-10] MEDS: INSULIN ASPART SLIDING SCALE 100 UNITS/ML UNIT SUBQ SCH ×3 (06:02→18:03)
[2017-05-10] MEDS: Budesonide 0.5 Mg/2 mL Ud HHN SCH ×2 (07:31→19:26)
[2017-05-10] MEDS: D5-0.45NS 1,000 ML IV SCH (09:11)
[2017-05-10] MEDS: Chlorhexidine Gluconate 0.12% 15mL Mouthwash MM SCH ×2 (09:23→20:25)
--- NOTE | 2017-05-10 10:02 | General Progress Note ---
Subjective - Review of Systems Subjective: Patient is seen and examined. Patient is on vent. Not following any commands. Patient is on IV Cardizem drip. Patient is still spiking fever. Discussed with surgeon about treatment plan patient is high risk for procedures. In the view of his complex medical problem advised to go for tracheostomy today. Objective - Results Result Diagrams: 05/10/17 04:55 05/10/17 04:55 Recent Labs: Laboratory Last Values WBC 8.6 Th/cmm (4.8-10.8) 05/10/17 04:55 RBC 3.45 Mil/cmm (4.30-5.70) L 05/10/17 04:55 Hgb 9.4 gm/dL (13.2-17.3) L 05/10/17 04:55 Hct 28.1 % (39.0-49.0) L 05/10/17 04:55 MCV 81.5 fl (80-99) 05/10/17 04:55 MCH 27.3 pg (26.0-30.0) 05/10/17 04:55 MCHC Differential 33.5 pg (28.0-36.0) 05/10/17 04:55 RDW 16.5 % (11.5-20.0) 05/10/17 04:55 Plt Count 269 Th/cmm (150-400) D 05/10/17 04:55 MPV 7.7 fl 05/10/17 04:55 Neutrophils % 54.8 % (40.0-80.0) 05/10/17 04:55 Band Neutrophils % 4 % (0-10) 05/02/17 05:15 Lymphocytes % 22.6 % (20.0-50.0) 05/10/17 04:55 Monocytes % 12.1 % (2.0-10.0) H 05/10/17 04:55 Eosinophils % 9.7 % (0.0-5.0) H 05/10/17 04:55 Basophils % 0.8 % (0.0-2.0) 05/10/17 04:55 Neutrophils (Manual) 68 % (40-80) 05/02/17 05:15 Lymphocytes 14 % (20-50) L 05/02/17 05:15 Monocytes 8 % (2-10) 05/02/17 05:15 Eosinophils 6 % (0-5) H 05/02/17 05:15 Metamyelocytes 1 % (0-0) H 04/22/17 05:04 Platelet Estimate ADEQUATE (NORMAL) 05/02/17 05:15 Platelet Morphology NORMAL (NORMAL) 05/02/17 05:15 Anisocytosis 1+ 04/28/17 06:08 Microcytosis 1+ 05/02/17 05:15 RBC Morph Micro Appear ABNORMAL (NORMAL) 05/02/17 05:15 ESR > 140 mm/hr (0-20) H 04/20/17 07:00 PT 11.9 SECONDS (9.5-11.5) H 04/24/17 21:19 INR 1.13 (0.5-1.4) 04/24/17 21:19 PTT (Actin FS) 27.6 SECONDS (26.0-38.0) 04/24/17 21:19 Specimen Source Arterial 05/08/17 09:49 Sample Site Right Radial 05/08/17 09:49 pH 7.47 (7.35-7.45) H 05/08/17 09:49 pCO2 48.0 mmHg (35.0-45.0) H 05/08/17 09:49 pO2 90.0 mmHg (80.0-100.0) 05/08/17 09:49 HCO3 32.6 mEq/L (20.0-26.0) H 05/08/17 09:49 Base Excess 9.8 mEq/L (-3.0-3.0) H 05/08/17 09:49 O2 Saturation 97.0 % (92.0-100.0) 05/08/17 09:49 Chau Test Positive 05/08/17 09:49 Vent Rate 16 05/08/17 09:49 Inspired O2 30 05/08/17 09:49 Tidal Volume 450 05/08/17 09:49 PEEP 3 05/08/17 09:49 Pressure (ins/psv/peep) NA 05/07/17 09:45 Critical Value PING 05/08/17 09:49 Sodium 144 mEq/L (136-145) 05/10/17 04:55 Potassium 4.3 mEq/L (3.5-5.1) 05/10/17 04:55 Chloride 110 mEq/L (98-107) H 05/10/17 04:55 Carbon Dioxide 29.7 mEq/L (21.0-31.0) 05/10/17 04:55 Anion Gap 8.6 (7.0-16.0) 05/10/17 04:55 BUN 38 mg/dL (7-25) H 05/10/17 04:55 Creatinine 1.0 mg/dL (0.7-1.3) 05/10/17 04:55 Est GFR ( Amer) > 60.0 ml/min (>90) 05/10/17 04:55 Est GFR (Non-Af Amer) > 60.0 ml/min 05/10/17 04:55 BUN/Creatinine Ratio 38.0 05/10/17 04:55 Glucose 151 mg/dL (70-105) H 05/10/17 04:55 POC Glucose 163 MG/DL (70 - 105) H 05/10/17 05:58 Hemoglobin A1c % 6.7 % (4.0-6.0) H 04/22/17 05:04 Whole Bld Lactic Acid 1.68 mmol/L (0.60-1.99) 05/07/17 04:45 Uric Acid 3.6 mg/dL (4.4-7.6) L 04/20/17 07:00 Calcium 9.9 mg/dL (8.6-10.3) 05/10/17 04:55 Phosphorus 4.4 mg/dL (2.5-5.0) 05/10/17 04:55 Magnesium 2.2 mg/dL (1.9-2.7) 05/10/17 04:55 Total Bilirubin 0.4 mg/dL (0.3-1.0) 05/10/17 04:55 Direct Bilirubin 0.11 mg/dL (0.0-0.2) 05/02/17 05:15 AST 40 U/L (13-39) H 05/10/17 04:55 ALT 15 U/L (7-52) 05/10/17 04:55 Alkaline Phosphatase 97 U/L (34-104) 05/10/17 04:55 Ammonia 41 umol/L (16-53) 05/08/17 05:00 Creatine Kinase 136 U/L (30-223) 04/14/17 14:55 Troponin I 0.01 ng/mL (0.01-0.05) 04/22/17 05:04 C-Reactive Protein 23.6 mg/dL (0.0-0.9) H 05/07/17 04:45 B-Natriuretic Peptide 20.9 pg/mL (5.0-100.0) 05/10/17 04:55 Total Protein 6.6 gm/dL (6.0-8.3) 05/10/17 04:55 Albumin 2.0 gm/dL (4.2-5.5) L 05/10/17 04:55 Globulin 4.6 gm/dL 05/10/17 04:55 Albumin/Globulin Ratio 0.4 (1.0-1.8) L 05/10/17 04:55 Prealbumin 10 mg/dL (10-36) 05/08/17 05:00 Triglycerides 383 mg/dL (<150) H 05/05/17 04:35 Cholesterol 104 mg/dL (<200) 05/05/17 04:35 LDL Cholesterol Direct 38 mg/dL (75-193) L 04/14/17 14:55 HDL Cholesterol 13 mg/dL (23-92) L 04/14/17 14:55 Amylase 53 U/L (29-103) 05/09/17 06:00 Lipase 85 U/L (11-82) H 05/09/17 06:00 Urine Source [place] 05/03/17 13:38 Urine Color YELLOW 05/03/17 13:38 Urine Clarity TURBID (CLEAR) 05/03/17 13:38 Urine pH 7.5 05/03/17 13:38 Ur Specific [place] 1.010 (1.005-1.030) 05/03/17 13:38 Urine Protein NEGATIVE mg/dL (NEGATIVE) 05/03/17 13:38 Urine Glucose (UA) NEGATIVE mg/dL (NEGATIVE) 05/03/17 13:38 Urine Ketones NEGATIVE mg/dL (NEGATIVE) 05/03/17 13:38 Urine Blood MODERATE (NEGATIVE) H 05/03/17 13:38 Urine Nitrate NEGATIVE (NEGATIVE) 05/03/17 13:38 Urine Bilirubin NEGATIVE (NEGATIVE) 05/03/17 13:38 Urine Urobilinogen 0.2 E.U./dL (0.2 - 1.0) 05/03/17 13:38 Ur Leukocyte Esterase TRACE (NEGATIVE) H 05/03/17 13:38 Urine RBC 50-100 /hpf (0-5) H 05/03/17 13:38 Urine WBC 6-10 /hpf (0-5) H 05/03/17 13:38 Ur Epithelial Cells FEW /lpf (FEW) 05/03/17 13:38 Amorphous Sediment MANY URATES (NONE SEEN) 04/14/17 15:05 Urine Bacteria FEW /hpf (NONE SEEN) 05/03/17 13:38 Vancomycin Trough 13.5 ug/mL (10-20) 04/19/17 19:20 Helicobacter pylori Ab NEGATIVE (NEGATIVE) 05/04/17 10:05 Blood Type O POSITIVE 05/02/17 07:12 Antibody Screen NEGATIVE 05/02/17 07:12 Crossmatch See Detail 05/02/17 07:12 - Physical Exam Vitals and I&O: Vital Signs Temp 100.6 F 05/10/17 04:00 Pulse 112 05/10/17 09:30 Resp 21 05/10/17 06:00 BP 132/76 05/10/17 09:22 Pulse Ox 100 05/10/17 09:30 Intake & Output 05/09/17 05/10/17 05/10/17 18:59 06:59 18:59 Intake Total 2776.833 2262.667 Output Total 595 1920 Balance 2181.833 342.667 Weight (lbs) 113.398 kg 114.504 kg Intake: Intake, IV Amount 2576.833 1062.667 D5-0.45NS 1,000 ml @ 40 632.667 mls/hr IV .Q24H [facility] Rx#: [id number] Diltiazem 125 mg In 76.833 Dextrose 5% 100 ml @ 10 MG/HR 10 mls/hr IV TITR [facility] Rx#:[id number] Meropenem 1 gm In Sodium 100 230 Chloride 0.9% 100 ml @ 100 mls/hr IV Q8H [facility] Rx# :[id number] Multivitamin Inj 10 ml In 2400 Dextrose 70% 1,740 ml In Amino Acids 10% 500 ml In Intralipids 20% 150 ml @ 100 mls/hr IV .Q24H [facility] Rx#:[id number] Tigecycline 50 mg In 200 Sodium Chloride 0.9% 100 ml @ 100 mls/hr IV Q12H [facility] Rx#:[id number] Oral 0 TPN/PPN 200 1200 Output: Gastric Drainage 200 Drainage 25 10 Medial Abdomen 25 10 Urine 550 1600 Stool 20 100 Other 10 Other: Stool Characteristics Soft Liquid Liquid Brown Active Medications: Current Medications Acetaminophen (Tylenol 650mg/20.3ml Suspension) 650 mg NG Q6H PRN PRN Reason: FEVER/PAIN Stop: 06/21/17 17:45 Albuterol/Ipratropium (Duoneb Neb) 3 ml HHN Q4HRT [facility] Stop: 06/15/17 14:59 Last Admin: 05/10/17 07:31 Dose: 3 ml Amiodarone HCl (Cordarone) 200 mg NG BID [facility] Stop: 06/24/17 23:14 Last Admin: 05/10/17 08:02 Dose: Not Given Budesonide (Pulmicort) 0.5 mg HHN BIDRT [facility] Stop: 06/15/17 18:59 Last Admin: 05/10/17 07:31 Dose: 0.5 mg Chlorhexidine Gluconate (Peridex) 15 ml MM [phone] [facility] Stop: 06/30/17 19:59 Last Admin: 05/10/17 09:23 Dose: 15 ml Enalaprilat (Vasotec) 2.5 mg IVP Q4HR PRN PRN Reason: SBP>150 Stop: 07/06/17 15:59 Famotidine (Pepcid) 20 mg IVP Q6HR [facility] Stop: 07/06/17 11:59 Last Admin: 05/10/17 05:42 Dose: 20 mg Furosemide (Lasix) 40 mg IVP BID [facility] Stop: 05/10/17 17:01 Last Admin: 05/10/17 09:22 Dose: 40 mg Multivitamins/Minerals 10 ml/Dextrose/ Amino Acids/Electrolytes/ Fat Emulsion Intravenous 2,400 mls @ 100 mls/hr IV .Q24H [facility] Stop: 06/23/17 15:59 Last Admin: 05/09/17 17:43 Dose: 100 mls/hr Dextrose/Sodium Chloride (D5-0.45ns) 1,000 mls @ 40 mls/hr IV .Q24H [facility] Stop: 06/23/17 15:59 Last Admin: 05/10/17 09:11 Dose: 40 mls/hr Norepinephrine Bitartrate 4 mg (/ Dextrose) 254 mls @ 0 mls/hr IV TITR PRN; Protocol; 0 MCG/MIN PRN Reason: BP MAINTENANCE (PER PROTOCOL) Stop: 06/30/17 09:25 Last Titration: 05/02/17 07:00 Dose: Infused Meropenem 1 gm/ Sodium (Chloride) 100 mls @ 100 mls/hr IV Q8H [facility] Stop: 06/30/17 11:14 Last Infusion: 05/10/17 06:45 Dose: Infused Fluconazole (Diflucan) 200 mg in 100 mls @ 100 mls/hr IV Q24HR [facility] Stop: 07/01/17 12:29 Last Admin: 05/09/17 14:06 Dose: 100 mls/hr Tigecycline 50 mg/ Sodium (Chloride) 100 mls @ 100 mls/hr IV Q12H [facility] Stop: 07/05/17 21:59 Last Admin: 05/10/17 09:12 Dose: 100 mls/hr Diltiazem HCl 125 mg/ Dextrose 125 mls @ 10 mls/hr IV TITR [facility]; 10 MG/HR PRN Reason: Protocol Stop: 07/06/17 11:14 Last Admin: 05/10/17 01:11 Dose: 10 mg/hr, 10 mls/hr Insulin Aspart (Novolog Insulin Sliding Scale) 0 units SUBQ Q6HR [facility] PRN Reason: Protocol Stop: 06/16/17 17:59 Last Admin: 05/10/17 06:02 Dose: 2 units Lorazepam (Ativan) 1 mg IVP Q4HR PRN; Protocol PRN Reason: Agitation Stop: 07/03/17 16:14 Last Admin: 05/10/17 09:38 Dose: 1 mg Metoclopramide HCl (Reglan) 10 mg IVP Q8HR [facility] Stop: 07/06/17 20:59 Last Admin: 05/10/17 04:27 Dose: 10 mg Metoprolol Tartrate (Lopressor) 25 mg PO BID [facility] Stop: 06/26/17 08:59 Last Admin: 05/10/17 08:02 Dose: Not Given Mineral Oil (Mineral Oil 30 Ml) 30 ml NG DAILY [facility] Stop: 07/04/17 12:29 Last Admin: 05/10/17 08:02 Dose: Not Given Miscellaneous (Probiotic Screen) 1 ea MC PRN PRN PRN Reason: PROTOCOL Stop: 06/14/17 09:39 Miscellaneous (Tpn Per Pharmacy) 1 ea MC PRN PRN PRN Reason: PROTOCOL Stop: 06/16/17 12:28 Miscellaneous (Vte Chemical Prophylaxis Screen/ Admission) 1 ea MC PRN PRN PRN Reason: PROTOCOL Stop: 07/01/17 14:44 Morphine Sulfate (Morphine) 2 mg IVP Q4HR PRN PRN Reason: pain Stop: 07/01/17 09:37 Last Admin: 05/10/17 01:07 Dose: 2 mg Ondansetron HCl (Zofran) 4 mg IVP Q6H PRN PRN Reason: Nausea / Vomiting Stop: 06/13/17 20:08 Last Admin: 05/09/17 12:15 Dose: 4 mg Pantoprazole Sodium (Protonix) 40 mg IVP BID [facility] Stop: 07/01/17 10:14 Last Admin: 05/10/17 09:20 Dose: 40 mg General: Mild distress HEENT: Atraumatic, PERRLA, EOMI, Mucous membr. moist/pink, Other (oral endotracheal tube,NG tube+) Neck: Supple, +2 carotid pulse wo bruit Cardiovascular: Regular rate, Normal S1, Normal S2 Lungs: Other (diffuse rhonchi.) Abdomen: Soft, Other ( wound VAC anterior open abdominal wall wound. L colostomy retracted but still functional w/ stool output.) Extremities: Edema, Other (no edema and cyanosis.) Neurological: Reflexes 2+, Other (Patient is intubated and sedated) Psych/Mental Status: Other (Sedated) - Procedures Procedures: Procedures Procedure Code Date BYPASS SIGMOID COLON TO CUTANEOUS, OPEN APPROACH [id number] 04/14/17 INSERT EMERGENCY AIRWAY 84415 04/14/17 INSERTION OF ENDOTRACHEAL AIRWAY INTO TRACHEA, VIA OPENING [id number] 04/14/17 PARTIAL REMOVAL OF COLON 23961 04/14/17 RESECTION OF SIGMOID COLON, OPEN APPROACH [id number] 04/14/17 RESPIRATORY VENTILATION, 24-96 CONSECUTIVE HOURS [id number] 04/14/17 VENT MGMT INPAT INIT DAY 08950 04/14/17 VENT MGMT INPAT SUBQ DAY 88934 04/14/17 Assessment/Plan - Problem List Patient Problems: All Active Problems Abscess of sigmoid colon due to diverticulitis (Acute) K57.20 Diverticulitis of sigmoid colon (Acute) K57.32 Obesity (Acute) E66.9 Perforation of sigmoid colon due to diverticulitis (Acute) K57.20 Peritonitis (acute) generalized (Acute) K65.0 - Assessment Assessment: Current Active Problems Problem Status Onset Abscess of sigmoid colon due to diverticulitis Acute Diverticulitis of sigmoid colon Acute Obesity Acute Perforation of sigmoid colon due to diverticulitis Acute Peritonitis (acute) generalized Acute Perforated diverticulitis status post expiratory laparotomy and colostomy placement. Postoperative respiratory failure on vent. Obesity. Upper GI bleed. Suspect developing ARDS. Polymicrobial peritonitis due to perforation.. Asthma. SVT currently on Cardizem drip Electrolyte imbalance. SEKOU . Encephalopathy due to metabolic and infectious etio. Open surgical wound with wound VAC. Altered mental status secondary to metabolic and infectious encephalopathy. Postop anemia. - Plan Plan: ICU status. Vent support. Nebulizer treatment. Pulmonary target. IV antibiotic. Tracheostomy.. TPN. Needs PEG. Rate control. Blood pressure control Wound care with wound VAC Surgical follow-up ID follow-up Cardiology follow-up Pulmonary follow-up ICU care. IV PPI. Monitor lab. Chronic management of his medical illnesses. Care plan discussed with RN. Nutritional Asmnt/Malnutr-PDOC - Dietary Evaluation Malnutrition Findings (Please click <Entered> for more info): Nutritional Asmnt/Malnutrition Start: 04/19/17 14: 21 Text: Status: Complete Freq: Document 04/19/17 14:21 GSUN (Rec: 04/19/17 14:58 [id number]) Nutritional Asmnt/Malnutrition Patient General Information Nutritional Screening Moderate Risk Screening Diagnosis Sepsis, diverticulitis, peritonitis Pertinent Medical Hx/Surgical Hx Asthma, diverticulosis Subjective Information 56 year old male frome home. Pt was restless, moving extremities during visit. 04/14 : sigmoid colectomy, end colostomy, abscess drainage, diffuse peritontis. 04/16: pt started PPN. 04/17: central line and started on TPN. Spoke to family at bedside, explained parenteral nutrition , family undersoto and has no further question at this time. Weight discrepancies noted in EMR, family does not know UBW , estimated nutritional needs based Current Diet Order/ Nutrition Support TPN D10% AA4.25% at 90ml/hr with IL20% 150ml, providing 1401.6kcal Pertinent Medications Dilaudid, Novolog, Culturelle, Magnesium Sulfate, Vancomycin , TPN, Morphine, Multivitamins , Zofran, Protonix, Nacl0.9% Pertinent Labs 04/14: triglycerides 106, total bilirubin 1.1H, glucose 116H 04/17: magnesium 2.5, phsophorus 3.2 04/19: magnesium 1.8L, phosphorus 2.4L, BUN 28H, creatinine 1.3, glucose 154H, total bilirubin 1.1H, triglycerides 238H Nutritional Hx/Data Height 1.7 m Height (Calculated Centimeters) 170.2 Current Weight (lbs) 95.254 kg Weight (Calculated Kilograms) 95.3 Weight (Calculated Grams) 09860.4 [place] Body Weight 148 Weight Status Overweight GI Symptoms Skin Integrity/Comment: [place] 14. Facial non-pitting 1+, bilateral hands pitting 1+ Estimated Nutritional Goals Calories/Kcals/Kg IBW 148/67.3kg Kcals Calculated 2019-2356kcal (30-35kcal/kg) Protein Calculated 101-135g (1.5-2g/kg) Fluid: ml Per MD Nutritional Problem 1. Problem Problem Altered GI function related to Etiology abscess and perforation of sigmoid colon due to diverticulitis aeb Signs/Symptoms: post-operative, on TPN Intervention/Recommendation Comments 1. Recommend TPN D15% AA5.5% at 100ml/hr with IL20% 150ml, providing 2400ml total volume, 2052kcal, 132g protein, meeting 100% of estimated nutritional needs. Carb load 2 .6mg/kg/min (using 210lb adm weight). 2. Monitor for possible refeeding syndrome, 04/18: phsophorus 2.1L, 04/19: magnesium 1.9. 3. Monitor triglycerides, total bilirubin, glucose, renal labs. Expected Outcomes/Goals Expected Outcomes/Goals 1. Pt to meet 100% of estimated nutritional needs on TPN.
--- NOTE | 2017-05-10 10:54 | Diagnostic Imaging Report ---
KUB abdominal film HISTORY: Abdominal distention The exam demonstrates multiple loops of mildly dilated small bowel. Changes associated with a distal small bowel obstruction cannot be radiographically excluded. Clinical correlation and follow-up needed. Nasogastric tube projects over the region of the stomach. The sidehole of the tube is at the level of the diaphragm. This may be advanced approximate 5.0 cm. No free intraperitoneal air. IMPRESSION: 1. Dilated small bowel loops. Distal small bowel obstruction cannot be excluded. Clinical correlation and follow-up recommended 2. Nasogastric tube projecting over the stomach with the sidehole at the level of the diaphragm. This may be advanced approximate 5.0 cm.
[2017-05-10] MEDS ORDERED: IOHEXOL 300MG/ML 100 ML VIAL PO ONE (12:00)
--- NOTE | 2017-05-10 13:03 | General Progress Note ---
Subjective - Review of Systems Service Date: 05/10/17 Subjective: encephalopathy, obtunded, nonverbal Objective - Results Result Diagrams: 05/10/17 04:55 05/10/17 04:55 Recent Labs: Laboratory Last Values WBC 8.6 Th/cmm (4.8-10.8) 05/10/17 04:55 RBC 3.45 Mil/cmm (4.30-5.70) L 05/10/17 04:55 Hgb 9.4 gm/dL (13.2-17.3) L 05/10/17 04:55 Hct 28.1 % (39.0-49.0) L 05/10/17 04:55 MCV 81.5 fl (80-99) 05/10/17 04:55 MCH 27.3 pg (26.0-30.0) 05/10/17 04:55 MCHC Differential 33.5 pg (28.0-36.0) 05/10/17 04:55 RDW 16.5 % (11.5-20.0) 05/10/17 04:55 Plt Count 269 Th/cmm (150-400) D 05/10/17 04:55 MPV 7.7 fl 05/10/17 04:55 Neutrophils % 54.8 % (40.0-80.0) 05/10/17 04:55 Band Neutrophils % 4 % (0-10) 05/02/17 05:15 Lymphocytes % 22.6 % (20.0-50.0) 05/10/17 04:55 Monocytes % 12.1 % (2.0-10.0) H 05/10/17 04:55 Eosinophils % 9.7 % (0.0-5.0) H 05/10/17 04:55 Basophils % 0.8 % (0.0-2.0) 05/10/17 04:55 Neutrophils (Manual) 68 % (40-80) 05/02/17 05:15 Lymphocytes 14 % (20-50) L 05/02/17 05:15 Monocytes 8 % (2-10) 05/02/17 05:15 Eosinophils 6 % (0-5) H 05/02/17 05:15 Metamyelocytes 1 % (0-0) H 04/22/17 05:04 Platelet Estimate ADEQUATE (NORMAL) 05/02/17 05:15 Platelet Morphology NORMAL (NORMAL) 05/02/17 05:15 Anisocytosis 1+ 04/28/17 06:08 Microcytosis 1+ 05/02/17 05:15 RBC Morph Micro Appear ABNORMAL (NORMAL) 05/02/17 05:15 ESR > 140 mm/hr (0-20) H 04/20/17 07:00 PT 11.9 SECONDS (9.5-11.5) H 04/24/17 21:19 INR 1.13 (0.5-1.4) 04/24/17 21:19 PTT (Actin FS) 27.6 SECONDS (26.0-38.0) 04/24/17 21:19 Specimen Source Arterial 05/08/17 09:49 Sample Site Right Radial 05/08/17 09:49 pH 7.47 (7.35-7.45) H 05/08/17 09:49 pCO2 48.0 mmHg (35.0-45.0) H 05/08/17 09:49 pO2 90.0 mmHg (80.0-100.0) 05/08/17 09:49 HCO3 32.6 mEq/L (20.0-26.0) H 05/08/17 09:49 Base Excess 9.8 mEq/L (-3.0-3.0) H 05/08/17 09:49 O2 Saturation 97.0 % (92.0-100.0) 05/08/17 09:49 Chau Test Positive 05/08/17 09:49 Vent Rate 16 05/08/17 09:49 Inspired O2 30 05/08/17 09:49 Tidal Volume 450 05/08/17 09:49 PEEP 3 05/08/17 09:49 Pressure (ins/psv/peep) NA 05/07/17 09:45 Critical Value PING 05/08/17 09:49 Sodium 144 mEq/L (136-145) 05/10/17 04:55 Potassium 4.3 mEq/L (3.5-5.1) 05/10/17 04:55 Chloride 110 mEq/L (98-107) H 05/10/17 04:55 Carbon Dioxide 29.7 mEq/L (21.0-31.0) 05/10/17 04:55 Anion Gap 8.6 (7.0-16.0) 05/10/17 04:55 BUN 38 mg/dL (7-25) H 05/10/17 04:55 Creatinine 1.0 mg/dL (0.7-1.3) 05/10/17 04:55 Est GFR ( Amer) > 60.0 ml/min (>90) 05/10/17 04:55 Est GFR (Non-Af Amer) > 60.0 ml/min 05/10/17 04:55 BUN/Creatinine Ratio 38.0 05/10/17 04:55 Glucose 151 mg/dL (70-105) H 05/10/17 04:55 POC Glucose 163 MG/DL (70 - 105) H 05/10/17 05:58 Hemoglobin A1c % 6.7 % (4.0-6.0) H 04/22/17 05:04 Whole Bld Lactic Acid 1.68 mmol/L (0.60-1.99) 05/07/17 04:45 Uric Acid 3.6 mg/dL (4.4-7.6) L 04/20/17 07:00 Calcium 9.9 mg/dL (8.6-10.3) 05/10/17 04:55 Phosphorus 4.4 mg/dL (2.5-5.0) 05/10/17 04:55 Magnesium 2.2 mg/dL (1.9-2.7) 05/10/17 04:55 Total Bilirubin 0.4 mg/dL (0.3-1.0) 05/10/17 04:55 Direct Bilirubin 0.11 mg/dL (0.0-0.2) 05/02/17 05:15 AST 40 U/L (13-39) H 05/10/17 04:55 ALT 15 U/L (7-52) 05/10/17 04:55 Alkaline Phosphatase 97 U/L (34-104) 05/10/17 04:55 Ammonia 41 umol/L (16-53) 05/08/17 05:00 Creatine Kinase 136 U/L (30-223) 04/14/17 14:55 Troponin I 0.01 ng/mL (0.01-0.05) 04/22/17 05:04 C-Reactive Protein 23.6 mg/dL (0.0-0.9) H 05/07/17 04:45 B-Natriuretic Peptide 20.9 pg/mL (5.0-100.0) 05/10/17 04:55 Total Protein 6.6 gm/dL (6.0-8.3) 05/10/17 04:55 Albumin 2.0 gm/dL (4.2-5.5) L 05/10/17 04:55 Globulin 4.6 gm/dL 05/10/17 04:55 Albumin/Globulin Ratio 0.4 (1.0-1.8) L 05/10/17 04:55 Prealbumin 10 mg/dL (10-36) 05/08/17 05:00 Triglycerides 383 mg/dL (<150) H 05/05/17 04:35 Cholesterol 104 mg/dL (<200) 05/05/17 04:35 LDL Cholesterol Direct 38 mg/dL (75-193) L 04/14/17 14:55 HDL Cholesterol 13 mg/dL (23-92) L 04/14/17 14:55 Amylase 53 U/L (29-103) 05/09/17 06:00 Lipase 85 U/L (11-82) H 05/09/17 06:00 Urine Source SEN PORT 05/03/17 13:38 Urine Color YELLOW 05/03/17 13:38 Urine Clarity TURBID (CLEAR) 05/03/17 13:38 Urine pH 7.5 05/03/17 13:38 Ur Specific [place] 1.010 (1.005-1.030) 05/03/17 13:38 Urine Protein NEGATIVE mg/dL (NEGATIVE) 05/03/17 13:38 Urine Glucose (UA) NEGATIVE mg/dL (NEGATIVE) 05/03/17 13:38 Urine Ketones NEGATIVE mg/dL (NEGATIVE) 05/03/17 13:38 Urine Blood MODERATE (NEGATIVE) H 05/03/17 13:38 Urine Nitrate NEGATIVE (NEGATIVE) 05/03/17 13:38 Urine Bilirubin NEGATIVE (NEGATIVE) 05/03/17 13:38 Urine Urobilinogen 0.2 E.U./dL (0.2 - 1.0) 05/03/17 13:38 Ur Leukocyte Esterase TRACE (NEGATIVE) H 05/03/17 13:38 Urine RBC 50-100 /hpf (0-5) H 05/03/17 13:38 Urine WBC 6-10 /hpf (0-5) H 05/03/17 13:38 Ur Epithelial Cells FEW /lpf (FEW) 05/03/17 13:38 Amorphous Sediment MANY URATES (NONE SEEN) 04/14/17 15:05 Urine Bacteria FEW /hpf (NONE SEEN) 05/03/17 13:38 Vancomycin Trough 13.5 ug/mL (10-20) 04/19/17 19:20 Helicobacter pylori Ab NEGATIVE (NEGATIVE) 05/04/17 10:05 Blood Type O POSITIVE 05/02/17 07:12 Antibody Screen NEGATIVE 05/02/17 07:12 Crossmatch See Detail 05/02/17 07:12 - Physical Exam Vitals and I&O: Vital Signs Temp 101.0 F 05/10/17 08:00 Pulse 123 05/10/17 12:00 Resp 25 05/10/17 11:00 BP 113/85 05/10/17 12:00 Pulse Ox 98 05/10/17 11:35 Intake & Output 05/09/17 05/10/17 05/10/17 18:59 06:59 18:59 Intake Total 2776.833 2262.667 100 Output Total 595 1920 Balance 2181.833 342.667 100 Weight (lbs) 113.398 kg 114.504 kg Intake: Intake, IV Amount 2576.833 1062.667 100 D5-0.45NS 1,000 ml @ 40 632.667 mls/hr IV .Q24H ARIAN Rx#: [id number] Diltiazem 125 mg In 76.833 Dextrose 5% 100 ml @ 10 MG/HR 10 mls/hr IV TITR ARIAN Rx#:[id number] Meropenem 1 gm In Sodium 100 230 Chloride 0.9% 100 ml @ 100 mls/hr IV Q8H ARIAN Rx# :[id number] Multivitamin Inj 10 ml In 2400 Dextrose 70% 1,740 ml In Amino Acids 10% 500 ml In Intralipids 20% 150 ml @ 100 mls/hr IV .Q24H ARIAN Rx#:[id number] Tigecycline 50 mg In 200 100 Sodium Chloride 0.9% 100 ml @ 100 mls/hr IV Q12H ARIAN Rx#:[id number] Oral 0 TPN/PPN 200 1200 Output: Gastric Drainage 200 Drainage 25 10 Medial Abdomen 25 10 Urine 550 1600 Stool 20 100 Other 10 Other: Stool Characteristics Soft Liquid Liquid Brown Active Medications: Current Medications Acetaminophen (Tylenol 650mg/20.3ml Suspension) 650 mg NG Q6H PRN PRN Reason: FEVER/PAIN Stop: 06/21/17 17:45 Albuterol/Ipratropium (Duoneb Neb) 3 ml HHN Q4HRT [facility] Stop: 06/15/17 14:59 Last Admin: 05/10/17 11:15 Dose: 3 ml Amiodarone HCl (Cordarone) 200 mg NG BID [facility] Stop: 06/24/17 23:14 Last Admin: 05/10/17 08:02 Dose: Not Given Budesonide (Pulmicort) 0.5 mg HHN BIDRT [facility] Stop: 06/15/17 18:59 Last Admin: 05/10/17 07:31 Dose: 0.5 mg Chlorhexidine Gluconate (Peridex) 15 ml MM 0800,2000 [facility] Stop: 06/30/17 19:59 Last Admin: 05/10/17 09:23 Dose: 15 ml Enalaprilat (Vasotec) 2.5 mg IVP Q4HR PRN PRN Reason: SBP>150 Stop: 07/06/17 15:59 Famotidine (Pepcid) 20 mg IVP Q6HR [facility] Stop: 07/06/17 11:59 Last Admin: 05/10/17 11:27 Dose: 20 mg Furosemide (Lasix) 40 mg IVP BID [facility] Stop: 05/10/17 17:01 Last Admin: 05/10/17 09:22 Dose: 40 mg Multivitamins/Minerals 10 ml/Dextrose/ Amino Acids/Electrolytes/ Fat Emulsion Intravenous 2,400 mls @ 100 mls/hr IV .Q24H [facility] Stop: 06/23/17 15:59 Last Admin: 05/09/17 17:43 Dose: 100 mls/hr Dextrose/Sodium Chloride (D5-0.45ns) 1,000 mls @ 40 mls/hr IV .Q24H [facility] Stop: 06/23/17 15:59 Last Admin: 05/10/17 09:11 Dose: 40 mls/hr Norepinephrine Bitartrate 4 mg (/ Dextrose) 254 mls @ 0 mls/hr IV TITR PRN; Protocol; 0 MCG/MIN PRN Reason: BP MAINTENANCE (PER PROTOCOL) Stop: 06/30/17 09:25 Last Titration: 05/02/17 07:00 Dose: Infused Meropenem 1 gm/ Sodium (Chloride) 100 mls @ 100 mls/hr IV Q8H [facility] Stop: 06/30/17 11:14 Last Admin: 05/10/17 11:27 Dose: 100 mls/hr Fluconazole (Diflucan) 200 mg in 100 mls @ 100 mls/hr IV Q24HR ARIAN Stop: 07/01/17 12:29 Last Admin: 05/09/17 14:06 Dose: 100 mls/hr Tigecycline 50 mg/ Sodium (Chloride) 100 mls @ 100 mls/hr IV Q12H [facility] Stop: 07/05/17 21:59 Last Infusion: 05/10/17 10:15 Dose: Infused Diltiazem HCl 125 mg/ Dextrose 125 mls @ 10 mls/hr IV TITR ARIAN; 10 MG/HR PRN Reason: Protocol Stop: 07/06/17 11:14 Last Admin: 05/10/17 01:11 Dose: 10 mg/hr, 10 mls/hr Insulin Aspart (Novolog Insulin Sliding Scale) 0 units SUBQ Q6HR ARIAN PRN Reason: Protocol Stop: 06/16/17 17:59 Last Admin: 05/10/17 06:02 Dose: 2 units Lorazepam (Ativan) 1 mg IVP Q4HR PRN; Protocol PRN Reason: Agitation Stop: 07/03/17 16:14 Last Admin: 05/10/17 09:38 Dose: 1 mg Metoclopramide HCl (Reglan) 10 mg IVP Q8HR ARIAN Stop: 07/06/17 20:59 Last Admin: 05/10/17 04:27 Dose: 10 mg Metoprolol Tartrate (Lopressor) 25 mg PO BID ARIAN Stop: 06/26/17 08:59 Last Admin: 05/10/17 08:02 Dose: Not Given Mineral Oil (Mineral Oil 30 Ml) 30 ml NG DAILY [facility] Stop: 07/04/17 12:29 Last Admin: 05/10/17 08:02 Dose: Not Given Miscellaneous (Probiotic Screen) 1 ea PRN PRN PRN Reason: PROTOCOL Stop: 06/14/17 09:39 Miscellaneous (Tpn Per Pharmacy) 1 ea MC PRN PRN PRN Reason: PROTOCOL Stop: 06/16/17 12:28 Miscellaneous (Vte Chemical Prophylaxis Screen/ Admission) 1 ea MC PRN PRN PRN Reason: PROTOCOL Stop: 07/01/17 14:44 Morphine Sulfate (Morphine) 2 mg IVP Q4HR PRN PRN Reason: pain Stop: 07/01/17 09:37 Last Admin: 05/10/17 11:27 Dose: 2 mg Ondansetron HCl (Zofran) 4 mg IVP Q6H PRN PRN Reason: Nausea / Vomiting Stop: 06/13/17 20:08 Last Admin: 05/09/17 12:15 Dose: 4 mg Pantoprazole Sodium (Protonix) 40 mg IVP BID ARIAN Stop: 07/01/17 10:14 Last Admin: 05/10/17 09:20 Dose: 40 mg General: Mild distress HEENT: Atraumatic, PERRLA, EOMI, Mucous membr. moist/pink, Other (oral endotracheal tube,NG tube+) Neck: Supple, +2 carotid pulse wo bruit Cardiovascular: Regular rate, Normal S1, Normal S2 Lungs: Other (diffuse rhonchi.) Abdomen: Soft, Other ( wound VAC anterior open abdominal wall wound. L colostomy retracted but still functional w/ stool output.) Extremities: Edema, Other (no edema and cyanosis.) Neurological: Reflexes 2+, Other (Patient is intubated and sedated) Psych/Mental Status: Other (Sedated) - Procedures Procedures: Procedures Procedure Code Date BYPASS SIGMOID COLON TO CUTANEOUS, OPEN APPROACH [id number] 04/14/17 INSERT EMERGENCY AIRWAY 71907 04/14/17 INSERTION OF ENDOTRACHEAL AIRWAY INTO TRACHEA, VIA OPENING [id number] 04/14/17 PARTIAL REMOVAL OF COLON 45996 04/14/17 RESECTION OF SIGMOID COLON, OPEN APPROACH [id number] 04/14/17 RESPIRATORY VENTILATION, 24-96 CONSECUTIVE HOURS [id number] 04/14/17 VENT MGMT INPAT INIT DAY 69548 04/14/17 VENT MGMT INPAT SUBQ DAY 59967 04/14/17 Assessment/Plan - Problem List Patient Problems: All Active Problems Abscess of sigmoid colon due to diverticulitis (Acute) K57.20 Diverticulitis of sigmoid colon (Acute) K57.32 Obesity (Acute) E66.9 Perforation of sigmoid colon due to diverticulitis (Acute) K57.20 Peritonitis (acute) generalized (Acute) K65.0 - Assessment Assessment: POD#26; s/p ex lap, sigmoid colectomy, drainage of peritonitis, lysis adhesions , ROLANDO drain placement 04/14 icu status encephalopathic, confused, obtunded, intubated. continue IVfluids +TPN renal insufficiency improved, normal BUN/creat dvt prophylaxis Lovenox SQ colostomy end necrosed and sloughed, severely retracted, but functional w/ stool output..... poor candidate for revision of colostomy open abd wound, wound vac in place, changed q 3days, wound marge, still some yellow slough. continue iv abx. sen cath stricts ins and out supportive care.... s/w family; guarded prognosis. off vasopressors. EGD 05/04 results noted by Reyes/GI peptic ulcer disease, NGT trauma multiple prior CT abd/pelvis....postop changes, no obvious drainable intra-abd abscess or collections tachycardia, intermittent fevers/shaking-rigors, normal WBC ok to give PO meds via NGT TF via NGT held, residuals high Reyes GI is following, CT abd/pelvis ordered today. recommended to family tracheostomy, EGD + PEG, change central line Dr. Bro has asked to hold trach for now....weaning efforts. hold EGD/PEG until results of CT abd/pelvis, kub earlier today ileus vs SBO. family bedside, distraught about worsening condition. Nutritional Asmnt/Malnutr-PDOC - Dietary Evaluation Malnutrition Findings (Please click <Entered> for more info): Nutritional Asmnt/Malnutrition Start: 04/19/17 14: 21 Text: Status: Complete Freq: Document 04/19/17 14:21 GSUN (Rec: 04/19/17 14:58 [id number]) Nutritional Asmnt/Malnutrition Patient General Information Nutritional Screening Moderate Risk Screening Diagnosis Sepsis, diverticulitis, peritonitis Pertinent Medical Hx/Surgical Hx Asthma, diverticulosis Subjective Information 56 year old male frome home. Pt was restless, moving extremities during visit. 04/14 : sigmoid colectomy, end colostomy, abscess drainage, diffuse peritontis. 04/16: pt started PPN. 04/17: central line and started on TPN. Spoke to family at bedside, explained parenteral nutrition , family undersoto and has no further question at this time. Weight discrepancies noted in EMR, family does not know UBW , estimated nutritional needs based Current Diet Order/ Nutrition Support TPN D10% AA4.25% at 90ml/hr with IL20% 150ml, providing 1401.6kcal Pertinent Medications Dilaudid, Novolog, Culturelle, Magnesium Sulfate, Vancomycin , TPN, Morphine, Multivitamins , Zofran, Protonix, Nacl0.9% Pertinent Labs 04/14: triglycerides 106, total bilirubin 1.1H, glucose 116H 04/17: magnesium 2.5, phsophorus 3.2 04/19: magnesium 1.8L, phosphorus 2.4L, BUN 28H, creatinine 1.3, glucose 154H, total bilirubin 1.1H, triglycerides 238H Nutritional Hx/Data Height 1.7 m Height (Calculated Centimeters) 170.2 Current Weight (lbs) 95.254 kg Weight (Calculated Kilograms) 95.3 Weight (Calculated Grams) 58376.4 [place] Body Weight 148 Weight Status Overweight GI Symptoms Skin Integrity/Comment: [place] 14. Facial non-pitting 1+, bilateral hands pitting 1+ Estimated Nutritional Goals Calories/Kcals/Kg IBW 148/67.3kg Kcals Calculated 2019-2356kcal (30-35kcal/kg) Protein Calculated 101-135g (1.5-2g/kg) Fluid: ml Per MD Nutritional Problem 1. Problem Problem Altered GI function related to Etiology abscess and perforation of sigmoid colon due to diverticulitis aeb Signs/Symptoms: post-operative, on TPN Intervention/Recommendation Comments 1. Recommend TPN D15% AA5.5% at 100ml/hr with IL20% 150ml, providing 2400ml total volume, 2052kcal, 132g protein, meeting 100% of estimated nutritional needs. Carb load 2 .6mg/kg/min (using 210lb adm weight). 2. Monitor for possible refeeding syndrome, 04/18: phsophorus 2.1L, 04/19: magnesium 1.9. 3. Monitor triglycerides, total bilirubin, glucose, renal labs. Expected Outcomes/Goals Expected Outcomes/Goals 1. Pt to meet 100% of estimated nutritional needs on TPN.
[2017-05-10] MEDS: Fluconazole 200mg/100mL 200 MG/100 ML BAG IV SCH (14:07)
--- NOTE | 2017-05-10 14:35 | Diagnostic Imaging Report ---
CT scan abdomen and pelvis with intravenous contrast HISTORY: Pain, status post surgery. Total DLP equals 793 CTDI equals 15.9 Following administration of intravenous contrast, axial sections were obtained from the xiphoid process down to the pubic symphysis. Limited sections through the lower chest demonstrate a small right pleural effusion. Nonspecific parenchymal density consistent with consolidation and/or atelectasis noted in the right lower lobe. Mild pleural thickening is seen within the left lower hemithorax. No focal hepatic lesions are seen. The spleen appears normal. Nasogastric tube extends into the region of the stomach. No focal abnormality seen in the region of the pancreas. No focal renal lesions are seen. No hydronephrosis. There is a vertical defect noted along the anterior abdominal wall consistent with surgical change. Generalized haziness is noted throughout the anterior peritoneal fat within the mid abdomen and upper pelvis. There is haziness about small bowel margins within the left lower abdomen. An ostomy is seen over the left lower anterior abdominal wall. No discrete abnormal masses or fluid collections are seen. The exam of the pelvis demonstrates findings consistent with surgical change in the lower mid pelvic area. A Thorne catheter is seen within a contracted urinary bladder. No free fluid is seen. Diffuse degenerative changes noted in the spine. IMPRESSION: 1. Surgical changes as noted above 2. Generalized haziness throughout the left abdomen and pelvic regions along with haziness about the margins of small bowel in the left lower abdomen. Exact significance is uncertain. 3. No discrete abnormal loculated fluid collections are identified.
[2017-05-10] MEDS: TPN 10%-70% CUSTOM IV SCH (17:11)
--- NOTE | 2017-05-10 23:51 | Infectious Disease Prog Note ---
Infectious Disease Subjective - Review of Systems Service Date: 05/10/17 Subjective: No new change. Continues to have Intermittent fevers. Intubated nasally, on the ventilator support. on ngt intermittent suction. Infectious Disease Objective - Results Result Diagrams: 05/10/17 04:55 05/10/17 04:55 Recent Labs: Laboratory Last Values WBC 8.6 Th/cmm (4.8-10.8) 05/10/17 04:55 RBC 3.45 Mil/cmm (4.30-5.70) L 05/10/17 04:55 Hgb 9.4 gm/dL (13.2-17.3) L 05/10/17 04:55 Hct 28.1 % (39.0-49.0) L 05/10/17 04:55 MCV 81.5 fl (80-99) 05/10/17 04:55 MCH 27.3 pg (26.0-30.0) 05/10/17 04:55 MCHC Differential 33.5 pg (28.0-36.0) 05/10/17 04:55 RDW 16.5 % (11.5-20.0) 05/10/17 04:55 Plt Count 269 Th/cmm (150-400) D 05/10/17 04:55 MPV 7.7 fl 05/10/17 04:55 Neutrophils % 54.8 % (40.0-80.0) 05/10/17 04:55 Band Neutrophils % 4 % (0-10) 05/02/17 05:15 Lymphocytes % 22.6 % (20.0-50.0) 05/10/17 04:55 Monocytes % 12.1 % (2.0-10.0) H 05/10/17 04:55 Eosinophils % 9.7 % (0.0-5.0) H 05/10/17 04:55 Basophils % 0.8 % (0.0-2.0) 05/10/17 04:55 Neutrophils (Manual) 68 % (40-80) 05/02/17 05:15 Lymphocytes 14 % (20-50) L 05/02/17 05:15 Monocytes 8 % (2-10) 05/02/17 05:15 Eosinophils 6 % (0-5) H 05/02/17 05:15 Metamyelocytes 1 % (0-0) H 04/22/17 05:04 Platelet Estimate ADEQUATE (NORMAL) 05/02/17 05:15 Platelet Morphology NORMAL (NORMAL) 05/02/17 05:15 Anisocytosis 1+ 04/28/17 06:08 Microcytosis 1+ 05/02/17 05:15 RBC Morph Micro Appear ABNORMAL (NORMAL) 05/02/17 05:15 ESR > 140 mm/hr (0-20) H 04/20/17 07:00 PT 11.9 SECONDS (9.5-11.5) H 04/24/17 21:19 INR 1.13 (0.5-1.4) 04/24/17 21:19 PTT (Actin FS) 27.6 SECONDS (26.0-38.0) 04/24/17 21:19 Specimen Source Arterial 05/08/17 09:49 Sample Site Right Radial 05/08/17 09:49 pH 7.47 (7.35-7.45) H 05/08/17 09:49 pCO2 48.0 mmHg (35.0-45.0) H 05/08/17 09:49 pO2 90.0 mmHg (80.0-100.0) 05/08/17 09:49 HCO3 32.6 mEq/L (20.0-26.0) H 05/08/17 09:49 Base Excess 9.8 mEq/L (-3.0-3.0) H 05/08/17 09:49 O2 Saturation 97.0 % (92.0-100.0) 05/08/17 09:49 Chau Test Positive 05/08/17 09:49 Vent Rate 16 05/08/17 09:49 Inspired O2 30 05/08/17 09:49 Tidal Volume 450 05/08/17 09:49 PEEP 3 05/08/17 09:49 Pressure (ins/psv/peep) NA 05/07/17 09:45 Critical Value PING 05/08/17 09:49 Sodium 144 mEq/L (136-145) 05/10/17 04:55 Potassium 4.3 mEq/L (3.5-5.1) 05/10/17 04:55 Chloride 110 mEq/L (98-107) H 05/10/17 04:55 Carbon Dioxide 29.7 mEq/L (21.0-31.0) 05/10/17 04:55 Anion Gap 8.6 (7.0-16.0) 05/10/17 04:55 BUN 38 mg/dL (7-25) H 05/10/17 04:55 Creatinine 1.0 mg/dL (0.7-1.3) 05/10/17 04:55 Est GFR ( Amer) > 60.0 ml/min (>90) 05/10/17 04:55 Est GFR (Non-Af Amer) > 60.0 ml/min 05/10/17 04:55 BUN/Creatinine Ratio 38.0 05/10/17 04:55 Glucose 151 mg/dL (70-105) H 05/10/17 04:55 POC Glucose 148 MG/DL (70 - 105) H 05/10/17 17:53 Hemoglobin A1c % 6.7 % (4.0-6.0) H 04/22/17 05:04 Whole Bld Lactic Acid 1.68 mmol/L (0.60-1.99) 05/07/17 04:45 Uric Acid 3.6 mg/dL (4.4-7.6) L 04/20/17 07:00 Calcium 9.9 mg/dL (8.6-10.3) 05/10/17 04:55 Phosphorus 4.4 mg/dL (2.5-5.0) 05/10/17 04:55 Magnesium 2.2 mg/dL (1.9-2.7) 05/10/17 04:55 Total Bilirubin 0.4 mg/dL (0.3-1.0) 05/10/17 04:55 Direct Bilirubin 0.11 mg/dL (0.0-0.2) 05/02/17 05:15 AST 40 U/L (13-39) H 05/10/17 04:55 ALT 15 U/L (7-52) 05/10/17 04:55 Alkaline Phosphatase 97 U/L (34-104) 05/10/17 04:55 Ammonia 41 umol/L (16-53) 05/08/17 05:00 Creatine Kinase 136 U/L (30-223) 04/14/17 14:55 Troponin I 0.01 ng/mL (0.01-0.05) 04/22/17 05:04 C-Reactive Protein 23.6 mg/dL (0.0-0.9) H 05/07/17 04:45 B-Natriuretic Peptide 20.9 pg/mL (5.0-100.0) 05/10/17 04:55 Total Protein 6.6 gm/dL (6.0-8.3) 05/10/17 04:55 Albumin 2.0 gm/dL (4.2-5.5) L 05/10/17 04:55 Globulin 4.6 gm/dL 05/10/17 04:55 Albumin/Globulin Ratio 0.4 (1.0-1.8) L 05/10/17 04:55 Prealbumin 10 mg/dL (10-36) 05/08/17 05:00 Triglycerides 383 mg/dL (<150) H 05/05/17 04:35 Cholesterol 104 mg/dL (<200) 05/05/17 04:35 LDL Cholesterol Direct 38 mg/dL (75-193) L 04/14/17 14:55 HDL Cholesterol 13 mg/dL (23-92) L 04/14/17 14:55 Amylase 53 U/L (29-103) 05/09/17 06:00 Lipase 85 U/L (11-82) H 05/09/17 06:00 Urine Source [place] 05/03/17 13:38 Urine Color YELLOW 05/03/17 13:38 Urine Clarity TURBID (CLEAR) 05/03/17 13:38 Urine pH 7.5 05/03/17 13:38 Ur Specific [place] 1.010 (1.005-1.030) 05/03/17 13:38 Urine Protein NEGATIVE mg/dL (NEGATIVE) 05/03/17 13:38 Urine Glucose (UA) NEGATIVE mg/dL (NEGATIVE) 05/03/17 13:38 Urine Ketones NEGATIVE mg/dL (NEGATIVE) 05/03/17 13:38 Urine Blood MODERATE (NEGATIVE) H 05/03/17 13:38 Urine Nitrate NEGATIVE (NEGATIVE) 05/03/17 13:38 Urine Bilirubin NEGATIVE (NEGATIVE) 05/03/17 13:38 Urine Urobilinogen 0.2 E.U./dL (0.2 - 1.0) 05/03/17 13:38 Ur Leukocyte Esterase TRACE (NEGATIVE) H 05/03/17 13:38 Urine RBC 50-100 /hpf (0-5) H 05/03/17 13:38 Urine WBC 6-10 /hpf (0-5) H 05/03/17 13:38 Ur Epithelial Cells FEW /lpf (FEW) 05/03/17 13:38 Amorphous Sediment MANY URATES (NONE SEEN) 04/14/17 15:05 Urine Bacteria FEW /hpf (NONE SEEN) 05/03/17 13:38 Vancomycin Trough 13.5 ug/mL (10-20) 04/19/17 19:20 Helicobacter pylori Ab NEGATIVE (NEGATIVE) 05/04/17 10:05 Blood Type O POSITIVE 05/02/17 07:12 Antibody Screen NEGATIVE 05/02/17 07:12 Crossmatch See Detail 05/02/17 07:12 - Physical Exam Vitals and I&O: Vital Signs Temp 99.6 F 05/10/17 22:00 Pulse 104 05/10/17 23:30 Resp 24 05/10/17 23:00 BP 117/66 05/10/17 23:30 Pulse Ox 100 05/10/17 23:00 Intake & Output 05/10/17 05/10/17 05/11/17 06:59 18:59 06:59 Intake Total 2262.667 4013.167 200 Output Total 1920 3080 Balance 342.667 933.167 200 Weight (lbs) 114.504 kg 107.501 kg Intake: Intake, IV Amount 6909.261 0198.167 200 D5-0.45NS 1,000 ml @ 40 632.667 mls/hr IV .Q24H [facility] Rx#: [id number] Diltiazem 125 mg In 166.5 Dextrose 5% 100 ml @ 10 MG/HR 10 mls/hr IV TITR [facility]AN Rx#:[id number] Fluconazole 200mg/100mL 100 200 mg In 100 ml @ 100 mls/hr IV Q24HR [facility] Rx#: [id number] Meropenem 1 gm In Sodium 230 100 100 Chloride 0.9% 100 ml @ 100 mls/hr IV Q8H [facility] Rx# :[id number] Multivitamin Inj 10 ml In 2346.667 Dextrose 70% 1,740 ml In Amino Acids 10% 500 ml In Intralipids 20% 150 ml @ 100 mls/hr IV .Q24H [facility] Rx#:[id number] Tigecycline 50 mg In 200 100 100 Sodium Chloride 0.9% 100 ml @ 100 mls/hr IV Q12H [facility] Rx#:[id number] Oral 0 TPN/PPN 1200 1200 Output: Gastric Drainage 200 Drainage 10 30 Medial Abdomen 10 30 Urine 1600 3050 Stool 100 Other 10 Other: # Bowel Movements 0 Stool Characteristics Liquid Brown Active Medications: Current Medications Acetaminophen (Tylenol 650mg/20.3ml Suspension) 650 mg NG Q6H PRN PRN Reason: FEVER/PAIN Stop: 06/21/17 17:45 Albuterol/Ipratropium (Duoneb Neb) 3 ml HHN Q4HRT [facility] Stop: 06/15/17 14:59 Last Admin: 05/10/17 22:54 Dose: 3 ml Amiodarone HCl (Cordarone) 200 mg NG BID [facility] Stop: 06/24/17 23:14 Last Admin: 05/10/17 17:20 Dose: 200 mg Budesonide (Pulmicort) 0.5 mg HHN BIDRT [facility]AN Stop: 06/15/17 18:59 Last Admin: 05/10/17 19:26 Dose: 0.5 mg Chlorhexidine Gluconate (Peridex) 15 ml MM 0800,2000 [facility] Stop: 06/30/17 19:59 Last Admin: 05/10/17 20:25 Dose: 15 ml Enalaprilat (Vasotec) 2.5 mg IVP Q4HR PRN PRN Reason: SBP>150 Stop: 07/06/17 15:59 Famotidine (Pepcid) 20 mg IVP Q6HR [facility] Stop: 07/06/17 11:59 Last Admin: 05/10/17 17:11 Dose: 20 mg Multivitamins/Minerals 10 ml/Dextrose/ Amino Acids/Electrolytes/ Fat Emulsion Intravenous 2,400 mls @ 100 mls/hr IV .Q24H [facility] Stop: 06/23/17 15:59 Last Admin: 05/10/17 17:11 Dose: 100 mls/hr Dextrose/Sodium Chloride (D5-0.45ns) 1,000 mls @ 40 mls/hr IV .Q24H [facility] Stop: 06/23/17 15:59 Last Admin: 05/10/17 09:11 Dose: 40 mls/hr Norepinephrine Bitartrate 4 mg (/ Dextrose) 254 mls @ 0 mls/hr IV TITR PRN; Protocol; 0 MCG/MIN PRN Reason: BP MAINTENANCE (PER PROTOCOL) Stop: 06/30/17 09:25 Last Titration: 05/02/17 07:00 Dose: Infused Meropenem 1 gm/ Sodium (Chloride) 100 mls @ 100 mls/hr IV Q8H [facility] Stop: 06/30/17 11:14 Last Infusion: 05/10/17 19:15 Dose: Infused Fluconazole (Diflucan) 200 mg in 100 mls @ 100 mls/hr IV Q24HR [facility] Stop: 07/01/17 12:29 Last Infusion: 05/10/17 15:00 Dose: Infused Tigecycline 50 mg/ Sodium (Chloride) 100 mls @ 100 mls/hr IV Q12H [facility] Stop: 07/05/17 21:59 Last Infusion: 05/10/17 22:30 Dose: Infused Diltiazem HCl 125 mg/ Dextrose 125 mls @ 10 mls/hr IV TITR ARIAN; 10 MG/HR PRN Reason: Protocol Stop: 07/06/17 11:14 Last Titration: 05/10/17 18:16 Dose: 5 mg/hr, 5 mls/hr Insulin Aspart (Novolog Insulin Sliding Scale) 0 units SUBQ Q6HR [facility] PRN Reason: Protocol Stop: 06/16/17 17:59 Last Admin: 05/10/17 18:03 Dose: Not Given Lorazepam (Ativan) 1 mg IVP Q4HR PRN; Protocol PRN Reason: Agitation Stop: 07/03/17 16:14 Last Admin: 05/10/17 20:28 Dose: 1 mg Metoclopramide HCl (Reglan) 10 mg IVP Q8HR [facility] Stop: 07/06/17 20:59 Last Admin: 05/10/17 20:29 Dose: 10 mg Metoprolol Tartrate (Lopressor) 25 mg PO BID [facility] Stop: 06/26/17 08:59 Last Admin: 05/10/17 18:29 Dose: 25 mg Mineral Oil (Mineral Oil 30 Ml) 30 ml NG DAILY [facility] Stop: 07/04/17 12:29 Last Admin: 05/10/17 08:02 Dose: Not Given Miscellaneous (Probiotic Screen) 1 ea MC PRN PRN PRN Reason: PROTOCOL Stop: 06/14/17 09:39 Miscellaneous (Tpn Per Pharmacy) 1 ea MC PRN PRN PRN Reason: PROTOCOL Stop: 06/16/17 12:28 Miscellaneous (Vte Chemical Prophylaxis Screen/ Admission) 1 ea MC PRN PRN PRN Reason: PROTOCOL Stop: 07/01/17 14:44 Morphine Sulfate (Morphine) 2 mg IVP Q4HR PRN PRN Reason: pain Stop: 07/01/17 09:37 Last Admin: 05/10/17 17:18 Dose: 2 mg Ondansetron HCl (Zofran) 4 mg IVP Q6H PRN PRN Reason: Nausea / Vomiting Stop: 06/13/17 20:08 Last Admin: 05/09/17 12:15 Dose: 4 mg Pantoprazole Sodium (Protonix) 40 mg IVP BID [facility] Stop: 07/01/17 10:14 Last Admin: 05/10/17 17:45 Dose: Not Given - Procedures Procedures: Procedures Procedure Code Date BYPASS SIGMOID COLON TO CUTANEOUS, OPEN APPROACH [id number] 04/14/17 INSERT EMERGENCY AIRWAY 92771 04/14/17 INSERTION OF ENDOTRACHEAL AIRWAY INTO TRACHEA, VIA OPENING [id number] 04/14/17 PARTIAL REMOVAL OF COLON 59654 04/14/17 RESECTION OF SIGMOID COLON, OPEN APPROACH [id number] 04/14/17 RESPIRATORY VENTILATION, 24-96 CONSECUTIVE HOURS [id number] 04/14/17 VENT MGMT INPAT INIT DAY 40824 04/14/17 VENT MGMT INPAT SUBQ DAY 80426 04/14/17 Infectious Disease Assmt/Plan - Problem List Patient Problems: All Active Problems Abscess of sigmoid colon due to diverticulitis (Acute) K57.20 Diverticulitis of sigmoid colon (Acute) K57.32 Obesity (Acute) E66.9 Perforation of sigmoid colon due to diverticulitis (Acute) K57.20 Peritonitis (acute) generalized (Acute) K65.0 - Assessment Assessment: 1. Sepsis. febrile. 2. Diverticulitis, sigmoid diverticula to with support complicated by multiple abscesses and peritonitis. treated with expl lap. lactic asid WNL. 3. Post operatively, on ventilator. 4. Peritonitis. Likely polymicrobial. 5. Asthma exacerbation. 6. History of arthritis. 7. Distended abdomen likely post operative ileus. Rule out small bowel obstruction. 8. SEKOU. Improved. 9. Post op, paralytic ileus. improved. 10. Wrist cellulitis, worse on left with destruction of bones. X ray of the left wrist suggested osteomyelitis. 11. Wound dehiscence. 12. Vent dependent respiratory failure. 13. Left leg cellulitis. 14. Pneumonia, ( On CT scan). 15. fever might be from cellulitis, peritonitis or pneumonia. even due to ileus. however, there is no leukocytosis, no bandemia, normal differential and no reactive thrombocytosis. 16. Ileus, on ngt suction. 17. Anasarca. - Plan Plan: Continue merrem and diflucan. Change zyvox to tygacil as patient continues to have fevers and would like to dc zyvox for its potential side effects. Blood c/s, sepsis w/u. May consider to change all the lines, if patient remains febrile. KUB in am. give lasix and BNP, KUB in AM. poor prognosis. Nutritional Asmnt/Malnutr-PDOC - Dietary Evaluation Malnutrition Findings (Please click <Entered> for more info): Nutritional Asmnt/Malnutrition Start: 04/19/17 14: 21 Text: Status: Complete Freq: Document 04/19/17 14:21 GSUN (Rec: 04/19/17 14:58 [id number]) Nutritional Asmnt/Malnutrition Patient General Information Nutritional Screening Moderate Risk Screening Diagnosis Sepsis, diverticulitis, peritonitis Pertinent Medical Hx/Surgical Hx Asthma, diverticulosis Subjective Information 56 year old male frome home. Pt was restless, moving extremities during visit. 04/14 : sigmoid colectomy, end colostomy, abscess drainage, diffuse peritontis. 04/16: pt started PPN. 04/17: central line and started on TPN. Spoke to family at bedside, explained parenteral nutrition , family undersoto and has no further question at this time. Weight discrepancies noted in EMR, family does not know UBW , estimated nutritional needs based Current Diet Order/ Nutrition Support TPN D10% AA4.25% at 90ml/hr with IL20% 150ml, providing 1401.6kcal Pertinent Medications Dilaudid, Novolog, Culturelle, Magnesium Sulfate, Vancomycin , TPN, Morphine, Multivitamins , Zofran, Protonix, Nacl0.9% Pertinent Labs 7/12: triglycerides 106, total bilirubin 1.1H, glucose 116H 04/17: magnesium 2.5, phsophorus 3.2 04/19: magnesium 1.8L, phosphorus 2.4L, BUN 28H, creatinine 1.3, glucose 154H, total bilirubin 1.1H, triglycerides 238H Nutritional Hx/Data Height 1.7 m Height (Calculated Centimeters) 170.2 Current Weight (lbs) 95.254 kg Weight (Calculated Kilograms) 95.3 Weight (Calculated Grams) 28271.4 [place] Body Weight 148 Weight Status Overweight GI Symptoms Skin Integrity/Comment: [place] 14. Facial non-pitting 1+, bilateral hands pitting 1+ Estimated Nutritional Goals Calories/Kcals/Kg IBW 148/67.3kg Kcals Calculated 2018-2356kcal (30-35kcal/kg) Protein Calculated 101-135g (1.5-2g/kg) Fluid: ml Per MD Nutritional Problem 1. Problem Problem Altered GI function related to Etiology abscess and perforation of sigmoid colon due to diverticulitis aeb Signs/Symptoms: post-operative, on TPN Intervention/Recommendation Comments 1. Recommend TPN D15% AA5.5% at 100ml/hr with IL20% 150ml, providing 2400ml total volume, 2052kcal, 132g protein, meeting 100% of estimated nutritional needs. Carb load 2 .6mg/kg/min (using 210lb adm weight). 2. Monitor for possible refeeding syndrome, 04/18: phsophorus 2.1L, 04/19: magnesium 1.9. 3. Monitor triglycerides, total bilirubin, glucose, renal labs. Expected Outcomes/Goals Expected Outcomes/Goals 1. Pt to meet 100% of estimated nutritional needs on TPN.
[2017-05-11] MEDS: INSULIN ASPART SLIDING SCALE 100 UNITS/ML UNIT SUBQ SCH ×4 (00:03→18:14)
[2017-05-11] MEDS: Morphine Sulfate 2 mg/mL 1mL Syr IVP PRN ×5 (00:10→22:56)
--- NOTE | 2017-05-11 00:53 | Progress Notes ---
DATE: 05/10/2017 PULMONARY PROGRESS NOTE PROBLEM LIST: 1. Persistent respiratory failure. 2. Severe encephalopathic status. 3. Underlying severe obstructive sleep apnea syndrome. 4. Minimal right-sided effusion. 5. Status post abdominal sepsis, status post surgery. SYMPTOMS: The patient just had a CAT scan, still tachypneic, no respiratory distress. PHYSICAL EXAMINATION: VITAL SIGNS: Temperature is 100.5, blood pressure 113/85, saturation 95% on 40% of oxygen. NECK: Veins not visualized. CHEST: Shows diminished air entry with occasional rhonchi. HEART: Regular. ABDOMEN: Shows wound VAC with significant guarding. LABORATORY DATA: The patient's pertinent laboratory studies: White count is 8.6, the patient's platelet is 269,000, and electrolytes are okay with BUN of 38. CARE AND PLANS: Discussed with Dr. Guerrero, surgeon, as well as discussed with Dr. Yusef Bro. I suspect the patient's primary problem is still abdomen's significant guarding, encephalopathy status, and at this particular time, ____ trach can be postponed if pathology on the belly can be reversed or improved; otherwise it will be very tough to place him as well as take care of him down the line with the ____ trach and see what the CAT scan of the belly shows and go from there. JOB# [id number]
[2017-05-11] MEDS: Meropenem 1 GM in Sodium Chloride 0.9% 100 ML IV SCH ×3 (02:54→18:15)
[2017-05-11] MEDS: Albuterol/Ipratropium Neb 3 ML AERS HHN SCH ×6 (03:02→23:26)
[2017-05-11] MEDS: Metoclopramide 5 mg/mL 2mL Vial IVP SCH ×3 (04:48→20:43)
[2017-05-11 05:28] LABS: % BASOPHILS 0.3 % (0.0-2.0); % EOSINOPHILS 9.8 % (0.0-5.0); % LYMPHOCYTES 21.9 % (20.0-50.0); HEMATOCRIT 27.7 % (39.0-49.0); HEMOGLOBIN 9.2 gm/dL (13.2-17.3); MEAN CELL VOLUME 82.2 fl (80-99); MEAN CORPUSCULAR HEMOGLOBIN 27.4 pg (26.0-30.0); MEAN CORPUSCULAR HGB CONC 33.3 pg (28.0-36.0); MEAN PLATELET VOLUME 7.2 fl; NEUTROPHILE ABSOLUTE 5.3 Th/cmm (1.8-8.0); PLATELET COUNT 273 Th/cmm (150-400); RED BLOOD COUNT 3.37 Mil/cmm (4.30-5.70); WHITE BLOOD COUNT 9.4 Th/cmm (4.8-10.8)
[2017-05-11 05:56] LABS: ALB/GLOB RATIO 0.4 (1.0-1.8); ALKALINE PHOSPHATASE 102 U/L (34-104); ANION GAP 8.9 (7.0-16.0); BILIRUBIN,TOTAL 0.5 mg/dL (0.3-1.0); BUN - UREA NITROGEN 42 mg/dL (7-25); CALCIUM SERUM 9.8 mg/dL (8.6-10.3); CARBON DIOXIDE 28.4 mEq/L (21.0-31.0); CHLORIDE 115 mEq/L (98-107); PHOSPHOROUS 5.1 mg/dL (2.5-5.0); POTASSIUM SERUM 4.3 mEq/L (3.5-5.1); SGOT 42 U/L (13-39); SGPT/ALT 17 U/L (7-52); SODIUM SERUM 148 mEq/L (136-145)
[2017-05-11 06:40] LABS: GLUCOSE 153 mg/dL (70-105)
[2017-05-11] MEDS: Budesonide 0.5 Mg/2 mL Ud HHN SCH ×2 (07:32→18:57)
[2017-05-11] MEDS: Chlorhexidine Gluconate 0.12% 15mL Mouthwash MM SCH ×2 (08:41→20:42)
[2017-05-11 09:29] LABS: ABG SOURCE Arterial; ALLEN TEST Positive; BE(B) 8.2 mEq/L (-3.0-3.0); CRITICAL VALUES REPORTED BY DM; FIO2 30; HCO3 31.3 mEq/L (20.0-26.0); MECH RATE 4; MECH VT 450; PS 15; pH 7.51 (7.35-7.45)
--- NOTE | 2017-05-11 09:39 | General Progress Note ---
Subjective - Review of Systems Subjective: Patient is seen and examined. Patient is on vent. Not following any commands. Patient is on IV Cardizem drip. Patient is sedated and intubated. Objective - Results Result Diagrams: 05/11/17 05:00 05/11/17 05:00 Recent Labs: Laboratory Last Values WBC 9.4 Th/cmm (4.8-10.8) 05/11/17 05:00 RBC 3.37 Mil/cmm (4.30-5.70) L 05/11/17 05:00 Hgb 9.2 gm/dL (13.2-17.3) L 05/11/17 05:00 Hct 27.7 % (39.0-49.0) L 05/11/17 05:00 MCV 82.2 fl (80-99) 05/11/17 05:00 MCH 27.4 pg (26.0-30.0) 05/11/17 05:00 MCHC Differential 33.3 pg (28.0-36.0) 05/11/17 05:00 RDW 17.0 % (11.5-20.0) 05/11/17 05:00 Plt Count 273 Th/cmm (150-400) 05/11/17 05:00 MPV 7.2 fl 05/11/17 05:00 Neutrophils % 56.0 % (40.0-80.0) 05/11/17 05:00 Band Neutrophils % 4 % (0-10) 05/02/17 05:15 Lymphocytes % 21.9 % (20.0-50.0) 05/11/17 05:00 Monocytes % 12.0 % (2.0-10.0) H 05/11/17 05:00 Eosinophils % 9.8 % (0.0-5.0) H 05/11/17 05:00 Basophils % 0.3 % (0.0-2.0) 05/11/17 05:00 Neutrophils (Manual) 68 % (40-80) 05/02/17 05:15 Lymphocytes 14 % (20-50) L 05/02/17 05:15 Monocytes 8 % (2-10) 05/02/17 05:15 Eosinophils 6 % (0-5) H 05/02/17 05:15 Metamyelocytes 1 % (0-0) H 04/22/17 05:04 Platelet Estimate ADEQUATE (NORMAL) 05/02/17 05:15 Platelet Morphology NORMAL (NORMAL) 05/02/17 05:15 Anisocytosis 1+ 04/28/17 06:08 Microcytosis 1+ 05/02/17 05:15 RBC Morph Micro Appear ABNORMAL (NORMAL) 05/02/17 05:15 ESR > 140 mm/hr (0-20) H 04/20/17 07:00 PT 11.9 SECONDS (9.5-11.5) H 04/24/17 21:19 INR 1.13 (0.5-1.4) 04/24/17 21:19 PTT (Actin FS) 27.6 SECONDS (26.0-38.0) 04/24/17 21:19 Specimen Source Arterial 05/11/17 09:10 Sample Site Left Radial 05/11/17 09:10 pH 7.51 (7.35-7.45) H 05/11/17 09:10 pCO2 40.0 mmHg (35.0-45.0) 05/11/17 09:10 pO2 89.0 mmHg (80.0-100.0) 05/11/17 09:10 HCO3 31.3 mEq/L (20.0-26.0) H 05/11/17 09:10 Base Excess 8.2 mEq/L (-3.0-3.0) H 05/11/17 09:10 O2 Saturation 98.0 % (92.0-100.0) 05/11/17 09:10 Chau Test Positive 05/11/17 09:10 Vent Rate 4 05/11/17 09:10 Inspired O2 30 05/11/17 09:10 Tidal Volume 450 05/11/17 09:10 PEEP 3 05/11/17 09:10 Pressure (ins/psv/peep) 15 05/11/17 09:10 Critical Value DM 05/11/17 09:10 Sodium 148 mEq/L (136-145) H 05/11/17 05:00 Potassium 4.3 mEq/L (3.5-5.1) 05/11/17 05:00 Chloride 115 mEq/L (98-107) H 05/11/17 05:00 Carbon Dioxide 28.4 mEq/L (21.0-31.0) 05/11/17 05:00 Anion Gap 8.9 (7.0-16.0) 05/11/17 05:00 BUN 42 mg/dL (7-25) H 05/11/17 05:00 Creatinine 1.0 mg/dL (0.7-1.3) 05/11/17 05:00 Est GFR ( Amer) > 60.0 ml/min (>90) 05/11/17 05:00 Est GFR (Non-Af Amer) > 60.0 ml/min 05/11/17 05:00 BUN/Creatinine Ratio 42.0 05/11/17 05:00 Glucose 153 mg/dL (70-105) H 05/11/17 05:00 POC Glucose 155 MG/DL (70 - 105) H 05/11/17 06:05 Hemoglobin A1c % 6.7 % (4.0-6.0) H 04/22/17 05:04 Whole Bld Lactic Acid 1.68 mmol/L (0.60-1.99) 05/07/17 04:45 Uric Acid 3.6 mg/dL (4.4-7.6) L 04/20/17 07:00 Calcium 9.8 mg/dL (8.6-10.3) 05/11/17 05:00 Phosphorus 5.1 mg/dL (2.5-5.0) H 05/11/17 05:00 Magnesium 2.0 mg/dL (1.9-2.7) 05/11/17 05:00 Total Bilirubin 0.5 mg/dL (0.3-1.0) 05/11/17 05:00 Direct Bilirubin 0.11 mg/dL (0.0-0.2) 05/02/17 05:15 AST 42 U/L (13-39) H 05/11/17 05:00 ALT 17 U/L (7-52) 05/11/17 05:00 Alkaline Phosphatase 102 U/L (34-104) 05/11/17 05:00 Ammonia 41 umol/L (16-53) 05/08/17 05:00 Creatine Kinase 136 U/L (30-223) 04/14/17 14:55 Troponin I 0.01 ng/mL (0.01-0.05) 04/22/17 05:04 C-Reactive Protein 23.6 mg/dL (0.0-0.9) H 05/07/17 04:45 B-Natriuretic Peptide 20.9 pg/mL (5.0-100.0) 05/10/17 04:55 Total Protein 6.3 gm/dL (6.0-8.3) 05/11/17 05:00 Albumin 1.9 gm/dL (4.2-5.5) L 05/11/17 05:00 Globulin 4.4 gm/dL 05/11/17 05:00 Albumin/Globulin Ratio 0.4 (1.0-1.8) L 05/11/17 05:00 Prealbumin 10 mg/dL (10-36) 05/08/17 05:00 Triglycerides 383 mg/dL (<150) H 05/05/17 04:35 Cholesterol 104 mg/dL (<200) 05/05/17 04:35 LDL Cholesterol Direct 38 mg/dL (75-193) L 04/14/17 14:55 HDL Cholesterol 13 mg/dL (23-92) L 04/14/17 14:55 Amylase 53 U/L (29-103) 05/09/17 06:00 Lipase 85 U/L (11-82) H 05/09/17 06:00 Urine Source [place] 05/03/17 13:38 Urine Color YELLOW 05/03/17 13:38 Urine Clarity TURBID (CLEAR) 05/03/17 13:38 Urine pH 7.5 05/03/17 13:38 Ur Specific L[place] 1.010 (1.005-1.030) 05/03/17 13:38 Urine Protein NEGATIVE mg/dL (NEGATIVE) 05/03/17 13:38 Urine Glucose (UA) NEGATIVE mg/dL (NEGATIVE) 05/03/17 13:38 Urine Ketones NEGATIVE mg/dL (NEGATIVE) 05/03/17 13:38 Urine Blood MODERATE (NEGATIVE) H 05/03/17 13:38 Urine Nitrate NEGATIVE (NEGATIVE) 05/03/17 13:38 Urine Bilirubin NEGATIVE (NEGATIVE) 05/03/17 13:38 Urine Urobilinogen 0.2 E.U./dL (0.2 - 1.0) 05/03/17 13:38 Ur Leukocyte Esterase TRACE (NEGATIVE) H 05/03/17 13:38 Urine RBC 50-100 /hpf (0-5) H 05/03/17 13:38 Urine WBC 6-10 /hpf (0-5) H 05/03/17 13:38 Ur Epithelial Cells FEW /lpf (FEW) 05/03/17 13:38 Amorphous Sediment MANY URATES (NONE SEEN) 04/14/17 15:05 Urine Bacteria FEW /hpf (NONE SEEN) 05/03/17 13:38 Vancomycin Trough 13.5 ug/mL (10-20) 04/19/17 19:20 Helicobacter pylori Ab NEGATIVE (NEGATIVE) 05/04/17 10:05 Blood Type O POSITIVE 05/02/17 07:12 Antibody Screen NEGATIVE 05/02/17 07:12 Crossmatch See Detail 05/02/17 07:12 - Physical Exam Vitals and I&O: Vital Signs Temp 97.8 F 05/11/17 08:00 Pulse 117 05/11/17 08:45 Resp 18 05/11/17 08:00 BP 110/77 05/11/17 08:45 Pulse Ox 99 05/11/17 08:00 Intake & Output 05/10/17 05/11/17 05/11/17 18:59 06:59 18:59 Intake Total 4013.167 1500 68.333 Output Total 3080 1700 Balance 933.167 -200 68.333 Weight (lbs) 107.501 kg 107.955 kg Intake: Intake, IV Amount 2813.167 300 68.333 Diltiazem 125 mg In 166.5 68.333 Dextrose 5% 100 ml @ 10 MG/HR 10 mls/hr IV TITR [facility] Rx#:[id number] Fluconazole 200mg/100mL 100 200 mg In 100 ml @ 100 mls/hr IV Q24HR [facility] Rx#: [id number] Meropenem 1 gm In Sodium 100 200 Chloride 0.9% 100 ml @ 100 mls/hr IV Q8H [facility] Rx# :[id number] Multivitamin Inj 10 ml In 2346.667 Dextrose 70% 1,740 ml In Amino Acids 10% 500 ml In Intralipids 20% 150 ml @ 100 mls/hr IV .Q24H [facility] Rx#:[id number] Tigecycline 50 mg In 100 100 Sodium Chloride 0.9% 100 ml @ 100 mls/hr IV Q12H [facility] Rx#:[id number] TPN/PPN 1200 1200 Output: Gastric Drainage 100 Drainage 30 Medial Abdomen 30 Urine 3050 1600 Other: # Bowel Movements 0 0 Active Medications: Current Medications Acetaminophen (Tylenol 650mg/20.3ml Suspension) 650 mg NG Q6H PRN PRN Reason: FEVER/PAIN Stop: 06/21/17 17:45 Last Admin: 05/11/17 09:31 Dose: 650 mg Albuterol/Ipratropium (Duoneb Neb) 3 ml HHN Q4HRT [facility] Stop: 06/15/17 14:59 Last Admin: 05/11/17 07:12 Dose: 3 ml Amiodarone HCl (Cordarone) 200 mg NG BID [facility] Stop: 06/24/17 23:14 Last Admin: 05/11/17 08:40 Dose: 200 mg Budesonide (Pulmicort) 0.5 mg HHN BIDRT [facility] Stop: 06/15/17 18:59 Last Admin: 05/11/17 07:32 Dose: 0.5 mg Chlorhexidine Gluconate (Peridex) 15 ml MM 08,1999 [facility] Stop: 06/30/17 19:59 Last Admin: 05/11/17 08:41 Dose: 15 ml Enalaprilat (Vasotec) 2.5 mg IVP Q4HR PRN PRN Reason: SBP>150 Stop: 07/06/17 15:59 Famotidine (Pepcid) 20 mg IVP Q6HR [facility] Stop: 07/06/17 11:59 Last Admin: 05/11/17 05:42 Dose: 20 mg Multivitamins/Minerals 10 ml/Dextrose/ Amino Acids/Electrolytes/ Fat Emulsion Intravenous 2,400 mls @ 100 mls/hr IV .Q24H [facility] Stop: 06/23/17 15:59 Last Admin: 05/10/17 17:11 Dose: 100 mls/hr Dextrose/Sodium Chloride (D5-0.45ns) 1,000 mls @ 40 mls/hr IV .Q24H [facility] Stop: 06/23/17 15:59 Last Admin: 05/10/17 09:11 Dose: 40 mls/hr Norepinephrine Bitartrate 4 mg (/ Dextrose) 254 mls @ 0 mls/hr IV TITR PRN; Protocol; 0 MCG/MIN PRN Reason: BP MAINTENANCE (PER PROTOCOL) Stop: 06/30/17 09:25 Last Titration: 05/02/17 07:00 Dose: Infused Meropenem 1 gm/ Sodium (Chloride) 100 mls @ 100 mls/hr IV Q8H [facility] Stop: 06/30/17 11:14 Last Infusion: 05/11/17 03:55 Dose: Infused Fluconazole (Diflucan) 200 mg in 100 mls @ 100 mls/hr IV Q24HR [facility] Stop: 07/01/17 12:29 Last Infusion: 05/10/17 15:00 Dose: Infused Tigecycline 50 mg/ Sodium (Chloride) 100 mls @ 100 mls/hr IV Q12H [facility] Stop: 07/05/17 21:59 Last Admin: 05/11/17 09:33 Dose: 100 mls/hr Diltiazem HCl 125 mg/ Dextrose 125 mls @ 10 mls/hr IV TITR [facility]; 10 MG/HR PRN Reason: Protocol Stop: 07/06/17 11:14 Last Admin: 05/11/17 07:56 Dose: 5 mg/hr, 5 mls/hr Insulin Aspart (Novolog Insulin Sliding Scale) 0 units SUBQ Q6HR [facility] PRN Reason: Protocol Stop: 06/16/17 17:59 Last Admin: 05/11/17 06:15 Dose: 2 units Lorazepam (Ativan) 1 mg IVP Q4HR PRN; Protocol PRN Reason: Agitation Stop: 07/03/17 16:14 Last Admin: 05/10/17 20:28 Dose: 1 mg Metoclopramide HCl (Reglan) 10 mg IVP Q8HR [facility] Stop: 07/06/17 20:59 Last Admin: 05/11/17 04:48 Dose: 10 mg Metoprolol Tartrate (Lopressor) 25 mg PO BID [facility] Stop: 06/26/17 08:59 Last Admin: 05/11/17 08:40 Dose: 25 mg Mineral Oil (Mineral Oil 30 Ml) 30 ml NG DAILY [facility] Stop: 07/04/17 12:29 Last Admin: 05/11/17 08:40 Dose: 30 ml Miscellaneous (Probiotic Screen) 1 ea PRN PRN PRN Reason: PROTOCOL Stop: 06/14/17 09:39 Miscellaneous (Tpn Per Pharmacy) 1 ea PRN PRN PRN Reason: PROTOCOL Stop: 06/16/17 12:28 Miscellaneous (Vte Chemical Prophylaxis Screen/ Admission) 1 ea MC PRN PRN PRN Reason: PROTOCOL Stop: 07/01/17 14:44 Morphine Sulfate (Morphine) 2 mg IVP Q4HR PRN PRN Reason: pain Stop: 07/01/17 09:37 Last Admin: 05/11/17 09:19 Dose: 2 mg Ondansetron HCl (Zofran) 4 mg IVP Q6H PRN PRN Reason: Nausea / Vomiting Stop: 06/13/17 20:08 Last Admin: 05/09/17 12:15 Dose: 4 mg Pantoprazole Sodium (Protonix) 40 mg IVP BID [facility] Stop: 07/01/17 10:14 Last Admin: 05/11/17 08:43 Dose: Not Given General: Other (sedated and intubated.) HEENT: Atraumatic, PERRLA, EOMI, Mucous membr. moist/pink, Other (oral endotracheal tube,NG tube+) Neck: Supple, +2 carotid pulse wo bruit Cardiovascular: Regular rate, Normal S1, Normal S2 Lungs: Other (diffuse rhonchi.) Abdomen: Soft, Other ( wound VAC anterior open abdominal wall wound. L colostomy retracted but still functional w/ stool output.) Extremities: Edema, Other (no edema and cyanosis.) Neurological: Reflexes 2+, Other (Patient is intubated and sedated) Psych/Mental Status: Other (Sedated) - Procedures Procedures: Procedures Procedure Code Date BYPASS SIGMOID COLON TO CUTANEOUS, OPEN APPROACH [id number] 04/14/17 INSERT EMERGENCY AIRWAY 69353 04/14/17 INSERTION OF ENDOTRACHEAL AIRWAY INTO TRACHEA, VIA OPENING [id number] 04/14/17 PARTIAL REMOVAL OF COLON 98305 04/14/17 RESECTION OF SIGMOID COLON, OPEN APPROACH [id number] 04/14/17 RESPIRATORY VENTILATION, 24-96 CONSECUTIVE HOURS [id number] 04/14/17 VENT MGMT INPAT INIT DAY 22907 04/14/17 VENT MGMT INPAT SUBQ DAY 71010 04/14/17 Assessment/Plan - Problem List Patient Problems: All Active Problems Abscess of sigmoid colon due to diverticulitis (Acute) K57.20 Diverticulitis of sigmoid colon (Acute) K57.32 Obesity (Acute) E66.9 Perforation of sigmoid colon due to diverticulitis (Acute) K57.20 Peritonitis (acute) generalized (Acute) K65.0 - Assessment Assessment: Current Active Problems Problem Status Onset Abscess of sigmoid colon due to diverticulitis Acute Diverticulitis of sigmoid colon Acute Obesity Acute Perforation of sigmoid colon due to diverticulitis Acute Peritonitis (acute) generalized Acute Perforated diverticulitis status post expiratory laparotomy and colostomy placement. Postoperative respiratory failure on vent. Obesity. Upper GI bleed. Suspect developing ARDS. Polymicrobial peritonitis due to perforation.. Asthma. SVT currently on Cardizem drip Electrolyte imbalance. SEKOU . Encephalopathy due to metabolic and infectious etio. Open surgical wound with wound VAC. Altered mental status secondary to metabolic and infectious encephalopathy. Postop anemia. - Plan Plan: ICU status. Vent support. Nebulizer treatment. Pulmonary toilet. Needs Trach MARYELLEN. IV antibiotics as per ID. TPN. Needs PEG. Rate control with cardizem drip. Blood pressure control Wound care with wound VAC Surgical follow-up ID follow-up Cardiology follow-up Pulmonary follow-up ICU care. IV PPI. Monitor lab. Guarded prognosis. Chronic management of his medical illnesses. Care plan discussed with RN. Nutritional Asmnt/Malnutr-PDOC - Dietary Evaluation Malnutrition Findings (Please click <Entered> for more info): Nutritional Asmnt/Malnutrition Start: 04/19/17 14: 21 Text: Status: Complete Freq: Document 04/19/17 14:21 GSUN (Rec: 04/19/17 14:58 [id number] [id number]) Nutritional Asmnt/Malnutrition Patient General Information Nutritional Screening Moderate Risk Screening Diagnosis Sepsis, diverticulitis, peritonitis Pertinent Medical Hx/Surgical Hx Asthma, diverticulosis Subjective Information 56 year old male frome home. Pt was restless, moving extremities during visit. 04/14 : sigmoid colectomy, end colostomy, abscess drainage, diffuse peritontis. 04/16: pt started PPN. 04/17: central line and started on TPN. Spoke to family at bedside, explained parenteral nutrition , family undersoto and has no further question at this time. Weight discrepancies noted in EMR, family does not know UBW , estimated nutritional needs based Current Diet Order/ Nutrition Support TPN D10% AA4.25% at 90ml/hr with IL20% 150ml, providing 1401.6kcal Pertinent Medications Dilaudid, Novolog, Culturelle, Magnesium Sulfate, Vancomycin , TPN, Morphine, Multivitamins , Zofran, Protonix, Nacl0.9% Pertinent Labs 04/14: triglycerides 106, total bilirubin 1.1H, glucose 116H 04/17: magnesium 2.5, phsophorus 3.2 04/19: magnesium 1.8L, phosphorus 2.4L, BUN 28H, creatinine 1.3, glucose 154H, total bilirubin 1.1H, triglycerides 238H Nutritional Hx/Data Height 1.7 m Height (Calculated Centimeters) 170.2 Current Weight (lbs) 95.254 kg Weight (Calculated Kilograms) 95.3 Weight (Calculated Grams) 19682.4 [place] Body Weight 148 Weight Status Overweight GI Symptoms Skin Integrity/Comment: [place] 14. Facial non-pitting 1+, bilateral hands pitting 1+ Estimated Nutritional Goals Calories/Kcals/Kg IBW 148/67.3kg Kcals Calculated 2019-2356kcal (30-35kcal/kg) Protein Calculated 101-135g (1.5-2g/kg) Fluid: ml Per MD Nutritional Problem 1. Problem Problem Altered GI function related to Etiology abscess and perforation of sigmoid colon due to diverticulitis aeb Signs/Symptoms: post-operative, on TPN Intervention/Recommendation Comments 1. Recommend TPN D15% AA5.5% at 100ml/hr with IL20% 150ml, providing 2400ml total volume, 2052kcal, 132g protein, meeting 100% of estimated nutritional needs. Carb load 2 .6mg/kg/min (using 210lb adm weight). 2. Monitor for possible refeeding syndrome, 04/18: phsophorus 2.1L, 04/19: magnesium 1.9. 3. Monitor triglycerides, total bilirubin, glucose, renal labs. Expected Outcomes/Goals Expected Outcomes/Goals 1. Pt to meet 100% of estimated nutritional needs on TPN.
[2017-05-11] MEDS: Fluconazole 200mg/100mL 200 MG/100 ML BAG IV SCH (12:30)
--- NOTE | 2017-05-11 15:27 | General Progress Note ---
Subjective - Review of Systems Service Date: 05/11/17 Subjective: encephalopathy, obtunded, nonverbal Objective - Results Result Diagrams: 05/11/17 05:00 05/11/17 05:00 Recent Labs: Laboratory Last Values WBC 9.4 Th/cmm (4.8-10.8) 05/11/17 05:00 RBC 3.37 Mil/cmm (4.30-5.70) L 05/11/17 05:00 Hgb 9.2 gm/dL (13.2-17.3) L 05/11/17 05:00 Hct 27.7 % (39.0-49.0) L 05/11/17 05:00 MCV 82.2 fl (80-99) 05/11/17 05:00 MCH 27.4 pg (26.0-30.0) 05/11/17 05:00 MCHC Differential 33.3 pg (28.0-36.0) 05/11/17 05:00 RDW 17.0 % (11.5-20.0) 05/11/17 05:00 Plt Count 273 Th/cmm (150-400) 05/11/17 05:00 MPV 7.2 fl 05/11/17 05:00 Neutrophils % 56.0 % (40.0-80.0) 05/11/17 05:00 Band Neutrophils % 4 % (0-10) 05/02/17 05:15 Lymphocytes % 21.9 % (20.0-50.0) 05/11/17 05:00 Monocytes % 12.0 % (2.0-10.0) H 05/11/17 05:00 Eosinophils % 9.8 % (0.0-5.0) H 05/11/17 05:00 Basophils % 0.3 % (0.0-2.0) 05/11/17 05:00 Neutrophils (Manual) 68 % (40-80) 05/02/17 05:15 Lymphocytes 14 % (20-50) L 05/02/17 05:15 Monocytes 8 % (2-10) 05/02/17 05:15 Eosinophils 6 % (0-5) H 05/02/17 05:15 Metamyelocytes 1 % (0-0) H 04/22/17 05:04 Platelet Estimate ADEQUATE (NORMAL) 05/02/17 05:15 Platelet Morphology NORMAL (NORMAL) 05/02/17 05:15 Anisocytosis 1+ 04/28/17 06:08 Microcytosis 1+ 05/02/17 05:15 RBC Morph Micro Appear ABNORMAL (NORMAL) 05/02/17 05:15 ESR > 140 mm/hr (0-20) H 04/20/17 07:00 PT 11.9 SECONDS (9.5-11.5) H 04/24/17 21:19 INR 1.13 (0.5-1.4) 04/24/17 21:19 PTT (Actin FS) 27.6 SECONDS (26.0-38.0) 04/24/17 21:19 Specimen Source Arterial 05/11/17 09:10 Sample Site Left Radial 05/11/17 09:10 pH 7.51 (7.35-7.45) H 05/11/17 09:10 pCO2 40.0 mmHg (35.0-45.0) 05/11/17 09:10 pO2 89.0 mmHg (80.0-100.0) 05/11/17 09:10 HCO3 31.3 mEq/L (20.0-26.0) H 05/11/17 09:10 Base Excess 8.2 mEq/L (-3.0-3.0) H 05/11/17 09:10 O2 Saturation 98.0 % (92.0-100.0) 05/11/17 09:10 Chau Test Positive 05/11/17 09:10 Vent Rate 4 05/11/17 09:10 Inspired O2 30 05/11/17 09:10 Tidal Volume 450 05/11/17 09:10 PEEP 3 05/11/17 09:10 Pressure (ins/psv/peep) 15 05/11/17 09:10 Critical Value DM 05/11/17 09:10 Sodium 148 mEq/L (136-145) H 05/11/17 05:00 Potassium 4.3 mEq/L (3.5-5.1) 05/11/17 05:00 Chloride 115 mEq/L (98-107) H 05/11/17 05:00 Carbon Dioxide 28.4 mEq/L (21.0-31.0) 05/11/17 05:00 Anion Gap 8.9 (7.0-16.0) 05/11/17 05:00 BUN 42 mg/dL (7-25) H 05/11/17 05:00 Creatinine 1.0 mg/dL (0.7-1.3) 05/11/17 05:00 Est GFR ( Amer) > 60.0 ml/min (>90) 05/11/17 05:00 Est GFR (Non-Af Amer) > 60.0 ml/min 05/11/17 05:00 BUN/Creatinine Ratio 42.0 05/11/17 05:00 Glucose 153 mg/dL (70-105) H 05/11/17 05:00 POC Glucose 155 MG/DL (70 - 105) H 05/11/17 06:05 Hemoglobin A1c % 6.7 % (4.0-6.0) H 04/22/17 05:04 Whole Bld Lactic Acid 1.68 mmol/L (0.60-1.99) 05/07/17 04:45 Uric Acid 3.6 mg/dL (4.4-7.6) L 04/20/17 07:00 Calcium 9.8 mg/dL (8.6-10.3) 05/11/17 05:00 Phosphorus 5.1 mg/dL (2.5-5.0) H 05/11/17 05:00 Magnesium 2.0 mg/dL (1.9-2.7) 05/11/17 05:00 Total Bilirubin 0.5 mg/dL (0.3-1.0) 05/11/17 05:00 Direct Bilirubin 0.11 mg/dL (0.0-0.2) 05/02/17 05:15 AST 42 U/L (13-39) H 05/11/17 05:00 ALT 17 U/L (7-52) 05/11/17 05:00 Alkaline Phosphatase 102 U/L (34-104) 05/11/17 05:00 Ammonia 41 umol/L (16-53) 05/08/17 05:00 Creatine Kinase 136 U/L (30-223) 04/14/17 14:55 Troponin I 0.01 ng/mL (0.01-0.05) 04/22/17 05:04 C-Reactive Protein 23.6 mg/dL (0.0-0.9) H 05/07/17 04:45 B-Natriuretic Peptide 20.9 pg/mL (5.0-100.0) 05/10/17 04:55 Total Protein 6.3 gm/dL (6.0-8.3) 05/11/17 05:00 Albumin 1.9 gm/dL (4.2-5.5) L 05/11/17 05:00 Globulin 4.4 gm/dL 05/11/17 05:00 Albumin/Globulin Ratio 0.4 (1.0-1.8) L 05/11/17 05:00 Prealbumin 10 mg/dL (10-36) 05/08/17 05:00 Triglycerides 383 mg/dL (<150) H 05/05/17 04:35 Cholesterol 104 mg/dL (<200) 05/05/17 04:35 LDL Cholesterol Direct 38 mg/dL (75-193) L 04/14/17 14:55 HDL Cholesterol 13 mg/dL (23-92) L 04/14/17 14:55 Amylase 53 U/L (29-103) 05/09/17 06:00 Lipase 85 U/L (11-82) H 05/09/17 06:00 Urine Source SEN PORT 05/03/17 13:38 Urine Color YELLOW 05/03/17 13:38 Urine Clarity TURBID (CLEAR) 05/03/17 13:38 Urine pH 7.5 05/03/17 13:38 Ur Specific [place] 1.010 (1.005-1.030) 05/03/17 13:38 Urine Protein NEGATIVE mg/dL (NEGATIVE) 05/03/17 13:38 Urine Glucose (UA) NEGATIVE mg/dL (NEGATIVE) 05/03/17 13:38 Urine Ketones NEGATIVE mg/dL (NEGATIVE) 05/03/17 13:38 Urine Blood MODERATE (NEGATIVE) H 05/03/17 13:38 Urine Nitrate NEGATIVE (NEGATIVE) 05/03/17 13:38 Urine Bilirubin NEGATIVE (NEGATIVE) 05/03/17 13:38 Urine Urobilinogen 0.2 E.U./dL (0.2 - 1.0) 05/03/17 13:38 Ur Leukocyte Esterase TRACE (NEGATIVE) H 05/03/17 13:38 Urine RBC 50-100 /hpf (0-5) H 05/03/17 13:38 Urine WBC 6-10 /hpf (0-5) H 05/03/17 13:38 Ur Epithelial Cells FEW /lpf (FEW) 05/03/17 13:38 Amorphous Sediment MANY URATES (NONE SEEN) 04/14/17 15:05 Urine Bacteria FEW /hpf (NONE SEEN) 05/03/17 13:38 Vancomycin Trough 13.5 ug/mL (10-20) 04/19/17 19:20 Helicobacter pylori Ab NEGATIVE (NEGATIVE) 05/04/17 10:05 Blood Type O POSITIVE 05/02/17 07:12 Antibody Screen NEGATIVE 05/02/17 07:12 Crossmatch See Detail 05/02/17 07:12 - Physical Exam Vitals and I&O: Vital Signs Temp 101.0 F 05/11/17 10:00 Pulse 109 05/11/17 13:55 Resp 24 05/11/17 10:00 BP 126/71 05/11/17 12:45 Pulse Ox 98 05/11/17 13:55 Intake & Output 05/10/17 05/11/17 05/11/17 18:59 06:59 18:59 Intake Total 4013.167 1500 68.333 Output Total 3080 1700 10 Balance 933.167 -200 58.333 Weight (lbs) 107.501 kg 107.955 kg Intake: Intake, IV Amount 2813.167 300 68.333 Diltiazem 125 mg In 166.5 68.333 Dextrose 5% 100 ml @ 10 MG/HR 10 mls/hr IV TITR RAIAN Rx#:[id number] Fluconazole 200mg/100mL 100 200 mg In 100 ml @ 100 mls/hr IV Q24HR ARIAN Rx#: [id number] Meropenem 1 gm In Sodium 100 200 Chloride 0.9% 100 ml @ 100 mls/hr IV Q8H ARIAN Rx# :[id number] Multivitamin Inj 10 ml In 2346.667 Dextrose 70% 1,740 ml In Amino Acids 10% 500 ml In Intralipids 20% 150 ml @ 100 mls/hr IV .Q24H ARIAN Rx#:[id number] Tigecycline 50 mg In 100 100 Sodium Chloride 0.9% 100 ml @ 100 mls/hr IV Q12H [facility]AN Rx#:[id number] TPN/PPN 1200 1200 Output: Gastric Drainage 100 Drainage 30 10 Medial Abdomen 30 10 Urine 3050 1600 Other: # Bowel Movements 0 0 Active Medications: Current Medications Acetaminophen (Tylenol 650mg/20.3ml Suspension) 650 mg NG Q6H PRN PRN Reason: FEVER/PAIN Stop: 06/21/17 17:45 Last Admin: 05/11/17 09:31 Dose: 650 mg Albuterol/Ipratropium (Duoneb Neb) 3 ml HHN Q4HRT [facility] Stop: 06/15/17 14:59 Last Admin: 05/11/17 11:21 Dose: 3 ml Amiodarone HCl (Cordarone) 200 mg NG BID [facility] Stop: 06/24/17 23:14 Last Admin: 05/11/17 08:40 Dose: 200 mg Budesonide (Pulmicort) 0.5 mg HHN BIDRT [facility] Stop: 06/15/17 18:59 Last Admin: 05/11/17 07:32 Dose: 0.5 mg Chlorhexidine Gluconate (Peridex) 15 ml MM 0800,1999 [facility] Stop: 06/30/17 19:59 Last Admin: 05/11/17 08:41 Dose: 15 ml Enalaprilat (Vasotec) 2.5 mg IVP Q4HR PRN PRN Reason: SBP>150 Stop: 07/06/17 15:59 Famotidine (Pepcid) 20 mg IVP Q6HR [facility] Stop: 07/06/17 11:59 Last Admin: 05/11/17 11:48 Dose: 20 mg Multivitamins/Minerals 10 ml/Dextrose/ Amino Acids/Electrolytes/ Fat Emulsion Intravenous 2,400 mls @ 100 mls/hr IV .Q24H [facility] Stop: 06/23/17 15:59 Last Admin: 05/10/17 17:11 Dose: 100 mls/hr Dextrose/Sodium Chloride (D5-0.45ns) 1,000 mls @ 40 mls/hr IV .Q24H [facility] Stop: 06/23/17 15:59 Last Admin: 05/10/17 09:11 Dose: 40 mls/hr Norepinephrine Bitartrate 4 mg (/ Dextrose) 254 mls @ 0 mls/hr IV TITR PRN; Protocol; 0 MCG/MIN PRN Reason: BP MAINTENANCE (PER PROTOCOL) Stop: 06/30/17 09:25 Last Titration: 05/02/17 07:00 Dose: Infused Meropenem 1 gm/ Sodium (Chloride) 100 mls @ 100 mls/hr IV Q8H [facility] Stop: 06/30/17 11:14 Last Admin: 05/11/17 11:47 Dose: 100 mls/hr Fluconazole (Diflucan) 200 mg in 100 mls @ 100 mls/hr IV Q24HR [facility] Stop: 07/01/17 12:29 Last Admin: 05/11/17 12:30 Dose: 100 mls/hr Tigecycline 50 mg/ Sodium (Chloride) 100 mls @ 100 mls/hr IV Q12H [facility] Stop: 07/05/17 21:59 Last Admin: 05/11/17 09:33 Dose: 100 mls/hr Diltiazem HCl 125 mg/ Dextrose 125 mls @ 10 mls/hr IV TITR [facility]AN; 10 MG/HR PRN Reason: Protocol Stop: 07/06/17 11:14 Last Admin: 05/11/17 07:56 Dose: 5 mg/hr, 5 mls/hr Insulin Aspart (Novolog Insulin Sliding Scale) 0 units SUBQ Q6HR [facility] PRN Reason: Protocol Stop: 06/16/17 17:59 Last Admin: 05/11/17 14:46 Dose: Not Given Lorazepam (Ativan) 1 mg IVP Q4HR PRN; Protocol PRN Reason: Agitation Stop: 07/03/17 16:14 Last Admin: 05/10/17 20:28 Dose: 1 mg Metoclopramide HCl (Reglan) 10 mg IVP Q8HR [facility] Stop: 07/06/17 20:59 Last Admin: 05/11/17 12:03 Dose: 10 mg Metoprolol Tartrate (Lopressor) 25 mg PO BID [facility] Stop: 06/26/17 08:59 Last Admin: 05/11/17 08:40 Dose: 25 mg Mineral Oil (Mineral Oil 30 Ml) 30 ml NG DAILY [facility] Stop: 07/04/17 12:29 Last Admin: 05/11/17 08:40 Dose: 30 ml Miscellaneous (Probiotic Screen) 1 ea [facility] PRN PRN PRN Reason: PROTOCOL Stop: 06/14/17 09:39 Miscellaneous (Tpn Per Pharmacy) 1 ea MC PRN PRN PRN Reason: PROTOCOL Stop: 06/16/17 12:28 Miscellaneous (Vte Chemical Prophylaxis Screen/ Admission) 1 ea MC PRN PRN PRN Reason: PROTOCOL Stop: 07/01/17 14:44 Morphine Sulfate (Morphine) 2 mg IVP Q4HR PRN PRN Reason: pain Stop: 07/01/17 09:37 Last Admin: 05/11/17 14:45 Dose: 2 mg Ondansetron HCl (Zofran) 4 mg IVP Q6H PRN PRN Reason: Nausea / Vomiting Stop: 06/13/17 20:08 Last Admin: 05/09/17 12:15 Dose: 4 mg Pantoprazole Sodium (Protonix) 40 mg IVP BID [facility] Stop: 07/01/17 10:14 Last Admin: 05/11/17 08:43 Dose: Not Given General: Other (sedated and intubated.) HEENT: Atraumatic, PERRLA, EOMI, Mucous membr. moist/pink, Other (oral endotracheal tube,NG tube+) Neck: Supple, +2 carotid pulse wo bruit Cardiovascular: Regular rate, Normal S1, Normal S2 Lungs: Other (diffuse rhonchi.) Abdomen: Soft, Other ( wound VAC anterior open abdominal wall wound. L colostomy retracted but still functional w/ stool output.) Extremities: Edema, Other (no edema and cyanosis.) Neurological: Reflexes 2+, Other (Patient is intubated and sedated) Psych/Mental Status: Other (Sedated) - Procedures Procedures: Procedures Procedure Code Date BYPASS SIGMOID COLON TO CUTANEOUS, OPEN APPROACH [id number] 04/14/17 INSERT EMERGENCY AIRWAY 61663 04/14/17 INSERTION OF ENDOTRACHEAL AIRWAY INTO TRACHEA, VIA OPENING [id number] 04/14/17 PARTIAL REMOVAL OF COLON 17791 04/14/17 RESECTION OF SIGMOID COLON, OPEN APPROACH [id number] 04/14/17 RESPIRATORY VENTILATION, 24-96 CONSECUTIVE HOURS [id number] 04/14/17 VENT MGMT INPAT INIT DAY 70802 04/14/17 VENT MGMT INPAT SUBQ DAY 90353 04/14/17 Assessment/Plan - Problem List Patient Problems: All Active Problems Abscess of sigmoid colon due to diverticulitis (Acute) K57.20 Diverticulitis of sigmoid colon (Acute) K57.32 Obesity (Acute) E66.9 Perforation of sigmoid colon due to diverticulitis (Acute) K57.20 Peritonitis (acute) generalized (Acute) K65.0 - Assessment Assessment: POD#27; s/p ex lap, sigmoid colectomy, drainage of peritonitis, lysis adhesions , ROLANDO drain placement 04/14 icu status encephalopathic, confused, obtunded, intubated. continue IVfluids +TPN mild renal insufficiency, elevated BUN dvt prophylaxis Lovenox SQ colostomy end necrosed and sloughed, severely retracted, but functional w/ stool output..... poor candidate for revision of colostomy open abd wound, wound vac in place, changed q 3days, wound marge, still some yellow slough. continue iv abx. sen cath supportive care.... s/w family; guarded prognosis. off vasopressors. EGD 05/04 results noted by Reyes/GI peptic ulcer disease, NGT trauma multiple prior CT abd/pelvis....postop changes, no obvious drainable intra-abd abscess or collections tachycardia, intermittent fevers/shaking-rigors, normal WBC ok to give PO meds via NGT TF via NGT held, residuals high [facility] GI is following, CT abd/pelvis ordered today. recommended to family tracheostomy, EGD + PEG, change central line Dr. Bro has asked to hold trach for now....weaning efforts. CT abd/pelvis results noted, no obvious drainable abscess or collection, no free air. on cardizem drip continue wound vac to open abd wound. pt seems to be more awake and does follows simple limited commands. family bedside, distraught about overall condition. Nutritional Asmnt/Malnutr-PDOC - Dietary Evaluation Malnutrition Findings (Please click <Entered> for more info): Nutritional Asmnt/Malnutrition Start: 04/19/17 14: 21 Text: Status: Complete Freq: Document 04/19/17 14:21 GSUN (Rec: 04/19/17 14:58 [id number]) Nutritional Asmnt/Malnutrition Patient General Information Nutritional Screening Moderate Risk Screening Diagnosis Sepsis, diverticulitis, peritonitis Pertinent Medical Hx/Surgical Hx Asthma, diverticulosis Subjective Information 56 year old male frome home. Pt was restless, moving extremities during visit. 04/14 : sigmoid colectomy, end colostomy, abscess drainage, diffuse peritontis. 04/16: pt started PPN. 04/17: central line and started on TPN. Spoke to family at bedside, explained parenteral nutrition , family undersoto and has no further question at this time. Weight discrepancies noted in EMR, family does not know UBW , estimated nutritional needs based Current Diet Order/ Nutrition Support TPN D10% AA4.25% at 90ml/hr with IL20% 150ml, providing 1401.6kcal Pertinent Medications Dilaudid, Novolog, Culturelle, Magnesium Sulfate, Vancomycin , TPN, Morphine, Multivitamins , Zofran, Protonix, Nacl0.9% Pertinent Labs 04/14: triglycerides 106, total bilirubin 1.1H, glucose 116H 04/17: magnesium 2.5, phsophorus 3.2 04/19: magnesium 1.8L, phosphorus 2.4L, BUN 28H, creatinine 1.3, glucose 154H, total bilirubin 1.1H, triglycerides 238H Nutritional Hx/Data Height 1.7 m Height (Calculated Centimeters) 170.2 Current Weight (lbs) 95.254 kg Weight (Calculated Kilograms) 95.3 Weight (Calculated Grams) 02533.4 Gorman Body Weight 148 Weight Status Overweight GI Symptoms Skin Integrity/Comment: Gilmer 14. Facial non-pitting 1+, bilateral hands pitting 1+ Estimated Nutritional Goals Calories/Kcals/Kg IBW 148/67.3kg Kcals Calculated 2019-2356kcal (30-35kcal/kg) Protein Calculated 101-135g (1.5-2g/kg) Fluid: ml Per MD Nutritional Problem 1. Problem Problem Altered GI function related to Etiology abscess and perforation of sigmoid colon due to diverticulitis aeb Signs/Symptoms: post-operative, on TPN Intervention/Recommendation Comments 1. Recommend TPN D15% AA5.5% at 100ml/hr with IL20% 150ml, providing 2400ml total volume, 2052kcal, 132g protein, meeting 100% of estimated nutritional needs. Carb load 2 .6mg/kg/min (using 210lb adm weight). 2. Monitor for possible refeeding syndrome, 04/18: phsophorus 2.1L, 04/19: magnesium 1.9. 3. Monitor triglycerides, total bilirubin, glucose, renal labs. Expected Outcomes/Goals Expected Outcomes/Goals 1. Pt to meet 100% of estimated nutritional needs on TPN.
[2017-05-11] MEDS: TPN 10%-70% CUSTOM IV SCH (18:11)
[2017-05-11] MEDS: D5-0.45NS 1,000 ML IV SCH (21:39)
--- NOTE | 2017-05-12 00:01 | Progress Notes ---
DATE: 05/11/2017 PROBLEM LIST: 1.Persistent respiratory failure. 2.Persistent encephalopathic state. 3.Possibly peritonitis with acute abdomen, status post surgery. SYMPTOMS: Nil. The patient is agitated, restless, lethargic periodic episode of tachypnea, otherwise unremarkable. PHYSICAL EXAMINATION: VITAL SIGNS: Temperature is 99-100, heart rate ____, blood pressure is normotensive, saturation is 98. NECK: Veins not visualized. Good bilateral carotid upstroke. CHEST: Shows diminished air entry with occasional rhonchi. LABORATORY DATA: The patient's ABG shows pO2 of 89, pCO2 of 40, bicarbonate of [address] of the abdomen shows generalized haziness in left quadrant region and also haziness around the marginal small bowel, left lower quadrant, otherwise unremarkable. ASSESSMENT: The patient clinically not much ____, still suspect peritonitis with abdominal issues, which is significant guarding causing ____, encephalopathy status, including respiratory failure with severe obstructive sleep apnea syndrome with tachypnea and tachycardia. PLANS AND SUGGESTIONS: We will discuss with ID again and surgeon again. If there is no plan for surgical intervention, we will have to do a tracheostomy on this patient down the line and go from there. JOB# [id number]
[2017-05-12] MEDS: INSULIN ASPART SLIDING SCALE 100 UNITS/ML UNIT SUBQ SCH ×4 (00:23→18:00)
--- NOTE | 2017-05-12 00:49 | Progress Notes ---
DATE: 05/11/2017 TYPE OF PROGRESS NOTE: Gastroenterology SUBJECTIVE: Events noted. No major change. OBJECTIVE: VITAL SIGNS: Noted. GENERAL: The patient is well-developed, chronically ill-appearing male, in no acute distress. HEENT: Endotracheal tube is intact, attached to the ventilator. CARDIOVASCULAR: Regular rate and rhythm. ABDOMEN: Soft and nontender. [id number] distention, hypoactive bowel sounds. Intact colostomy in left lower quadrant. RELEVANT LABORATORY DATA: WBC is 9.4, hemoglobin 9.2, platelet count is normal. Sodium is 148. Creatinine is 1.0. Liver enzymes are normal. AST is 42, and albumin is 1.9. IMPRESSION: 1. Postoperative ileus with repeat CT does not show obstruction or intra-abdominal abscess or dehiscence. 2. Recent diverticulitis surgery with sigmoid resection and diverting colostomy and Ada's pouch creation. 3. Polymicrobial sepsis with peritonitis. 4. Respiratory failure. 5. Dysphagia. 6. Mild leukocytosis. 7. Anemia. RECOMMENDATIONS: 1. Continue broad-spectrum antibiotics. 2. G-tube insertion at this point, would not improve the patient's overall condition and may exacerbate his peritonitis and intraabdominal sepsis. 3. Continue nasogastric tube decompression and low to mid suction. 4. Discussed case with Dr. All Trevino, the surgeon. He feels that repeat laparotomy or laparoscopy at this point would not be helpful as there are no acute surgical issues at this point. He does not feel that a diverting ileostomy at this point would be easy to do or help the patient in any significant way. 5. TPN. 6. Not tolerating G-tube feedings. 7. Raglan. 8. Laxatives as tolerated. JOB# [id number]
[2017-05-12] MEDS: Albuterol/Ipratropium Neb 3 ML AERS HHN SCH ×6 (03:10→23:45)
[2017-05-12 05:19] LABS: % BASOPHILS 0.6 % (0.0-2.0); % EOSINOPHILS 13.9 % (0.0-5.0); % LYMPHOCYTES 18.1 % (20.0-50.0); % MONOCYTES 10.6 % (2.0-10.0); % NEUTROPHILS 56.8 % (40.0-80.0); HEMATOCRIT 26.9 % (39.0-49.0); HEMOGLOBIN 8.9 gm/dL (13.2-17.3); MEAN CELL VOLUME 82.3 fl (80-99); MEAN CORPUSCULAR HEMOGLOBIN 27.2 pg (26.0-30.0); MEAN CORPUSCULAR HGB CONC 33.1 pg (28.0-36.0); MEAN PLATELET VOLUME 7.6 fl; NEUTROPHILE ABSOLUTE 5.9 Th/cmm (1.8-8.0); PLATELET COUNT 294 Th/cmm (150-400); RED BLOOD COUNT 3.28 Mil/cmm (4.30-5.70); WHITE BLOOD COUNT 10.4 Th/cmm (4.8-10.8)
[2017-05-12 05:30] LABS: ALB/GLOB RATIO 0.4 (1.0-1.8); ALKALINE PHOSPHATASE 129 U/L (34-104); ANION GAP 6.2 (7.0-16.0); BILIRUBIN,DIRECT 0.18 mg/dL (0.0-0.2); BILIRUBIN,TOTAL 0.5 mg/dL (0.3-1.0); BUN - UREA NITROGEN 44 mg/dL (7-25); CARBON DIOXIDE 28.7 mEq/L (21.0-31.0); CHLORIDE 116 mEq/L (98-107); GLUCOSE 148 mg/dL (70-105); PHOSPHOROUS 4.4 mg/dL (2.5-5.0); POTASSIUM SERUM 3.9 mEq/L (3.5-5.1); SGOT 49 U/L (13-39); SGPT/ALT 21 U/L (7-52); SODIUM SERUM 147 mEq/L (136-145)
[2017-05-12] MEDS: Metoclopramide 5 mg/mL 2mL Vial IVP SCH ×3 (05:45→20:25)
[2017-05-12] MEDS: Meropenem 1 GM in Sodium Chloride 0.9% 100 ML IV SCH ×3 (05:47→20:01)
[2017-05-12] MEDS: Morphine Sulfate 2 mg/mL 1mL Syr IVP PRN ×2 (06:19→15:17)
[2017-05-12] MEDS: Budesonide 0.5 Mg/2 mL Ud HHN SCH ×2 (07:27→19:28)
[2017-05-12] MEDS: Chlorhexidine Gluconate 0.12% 15mL Mouthwash MM SCH ×2 (08:00→20:05)
[2017-05-12 09:06] LABS: BE(B) 5.9 mEq/L (-3.0-3.0); HCO3 29.6 mEq/L (20.0-26.0); pH 7.49 (7.35-7.45)
[2017-05-12 09:07] LABS: ABG SOURCE Arterial; ALLEN TEST YES; FIO2 30; MECH RATE 16; MECH VT 450
--- NOTE | 2017-05-12 10:07 | Diagnostic Imaging Report ---
CHEST X-RAY: AP view INDICATION: Pneumonia COMPARISON: Chest x-ray 05/08/[address] abdomen and pelvis on 05/10/2017 FINDINGS: ET tube is seen with tip 5 cm above the ondina. NG tube and right IJ line are stable. No focal consolidation identified. There may be a small right effusion when compared to recent CT examination. Heart size is borderline prominent. IMPRESSION: No focal consolidation identified. Probable small right effusion when compared to recent CT examination.
[2017-05-12] MEDS: Fluconazole 200mg/100mL 200 MG/100 ML BAG IV SCH (12:58)
--- NOTE | 2017-05-12 13:48 | Infectious Disease Prog Note ---
Infectious Disease Subjective - Review of Systems Service Date: 05/12/17 Subjective: No new change. Continues to have Intermittent fevers. Intubated nasally, on the ventilator support. on ngt intermittent suction. Infectious Disease Objective - Results Result Diagrams: 05/12/17 04:40 05/12/17 04:40 Recent Labs: Laboratory Last Values WBC 10.4 Th/cmm (4.8-10.8) 05/12/17 04:40 RBC 3.28 Mil/cmm (4.30-5.70) L 05/12/17 04:40 Hgb 8.9 gm/dL (13.2-17.3) L 05/12/17 04:40 Hct 26.9 % (39.0-49.0) L 05/12/17 04:40 MCV 82.3 fl (80-99) 05/12/17 04:40 MCH 27.2 pg (26.0-30.0) 05/12/17 04:40 MCHC Differential 33.1 pg (28.0-36.0) 05/12/17 04:40 RDW 17.0 % (11.5-20.0) 05/12/17 04:40 Plt Count 294 Th/cmm (150-400) 05/12/17 04:40 MPV 7.6 fl 05/12/17 04:40 Neutrophils % 56.8 % (40.0-80.0) 05/12/17 04:40 Band Neutrophils % 4 % (0-10) 05/02/17 05:15 Lymphocytes % 18.1 % (20.0-50.0) L 05/12/17 04:40 Monocytes % 10.6 % (2.0-10.0) H 05/12/17 04:40 Eosinophils % 13.9 % (0.0-5.0) H 05/12/17 04:40 Basophils % 0.6 % (0.0-2.0) 05/12/17 04:40 Neutrophils (Manual) 68 % (40-80) 05/02/17 05:15 Lymphocytes 14 % (20-50) L 05/02/17 05:15 Monocytes 8 % (2-10) 05/02/17 05:15 Eosinophils 6 % (0-5) H 05/02/17 05:15 Metamyelocytes 1 % (0-0) H 04/22/17 05:04 Platelet Estimate ADEQUATE (NORMAL) 05/02/17 05:15 Platelet Morphology NORMAL (NORMAL) 05/02/17 05:15 Anisocytosis 1+ 04/28/17 06:08 Microcytosis 1+ 05/02/17 05:15 RBC Morph Micro Appear ABNORMAL (NORMAL) 05/02/17 05:15 ESR > 140 mm/hr (0-20) H 04/20/17 07:00 PT 11.9 SECONDS (9.5-11.5) H 04/24/17 21:19 INR 1.13 (0.5-1.4) 04/24/17 21:19 PTT (Actin FS) 27.6 SECONDS (26.0-38.0) 04/24/17 21:19 Specimen Source Arterial 05/12/17 09:00 Sample Site Right Radial 05/12/17 09:00 pH 7.49 (7.35-7.45) H 05/12/17 09:00 pCO2 39.0 mmHg (35.0-45.0) 05/12/17 09:00 pO2 106.0 mmHg (80.0-100.0) H 05/12/17 09:00 HCO3 29.6 mEq/L (20.0-26.0) H 05/12/17 09:00 Base Excess 5.9 mEq/L (-3.0-3.0) H 05/12/17 09:00 O2 Saturation 98.0 % (92.0-100.0) 05/12/17 09:00 Chau Test YES 05/12/17 09:00 Vent Rate 16 05/12/17 09:00 Inspired O2 30 05/12/17 09:00 Tidal Volume 450 05/12/17 09:00 PEEP 3 05/12/17 09:00 Pressure (ins/psv/peep) NA 05/12/17 09:00 Critical Value E.ROSEN 05/12/17 09:00 Sodium 147 mEq/L (136-145) H 05/12/17 04:40 Potassium 3.9 mEq/L (3.5-5.1) 05/12/17 04:40 Chloride 116 mEq/L (98-107) H 05/12/17 04:40 Carbon Dioxide 28.7 mEq/L (21.0-31.0) 05/12/17 04:40 Anion Gap 6.2 (7.0-16.0) L 05/12/17 04:40 BUN 44 mg/dL (7-25) H 05/12/17 04:40 Creatinine 1.0 mg/dL (0.7-1.3) 05/12/17 04:40 Est GFR ( Amer) > 60.0 ml/min (>90) 05/12/17 04:40 Est GFR (Non-Af Amer) > 60.0 ml/min 05/12/17 04:40 BUN/Creatinine Ratio 44.0 05/12/17 04:40 Glucose 148 mg/dL (70-105) H 05/12/17 04:40 POC Glucose 129 MG/DL (70 - 105) H 05/12/17 12:52 Hemoglobin A1c % 6.7 % (4.0-6.0) H 04/22/17 05:04 Whole Bld Lactic Acid 1.66 mmol/L (0.60-1.99) 05/12/17 04:40 Uric Acid 3.6 mg/dL (4.4-7.6) L 04/20/17 07:00 Calcium 10.0 mg/dL (8.6-10.3) 05/12/17 04:40 Phosphorus 4.4 mg/dL (2.5-5.0) 05/12/17 04:40 Magnesium 2.0 mg/dL (1.9-2.7) 05/12/17 04:40 Total Bilirubin 0.5 mg/dL (0.3-1.0) 05/12/17 04:40 Direct Bilirubin 0.18 mg/dL (0.0-0.2) 05/12/17 04:40 AST 49 U/L (13-39) H 05/12/17 04:40 ALT 21 U/L (7-52) 05/12/17 04:40 Alkaline Phosphatase 129 U/L (34-104) H 05/12/17 04:40 Ammonia 45 umol/L (16-53) 05/12/17 04:40 Creatine Kinase 136 U/L (30-223) 04/14/17 14:55 Troponin I 0.01 ng/mL (0.01-0.05) 04/22/17 05:04 C-Reactive Protein 23.6 mg/dL (0.0-0.9) H 05/07/17 04:45 B-Natriuretic Peptide 20.9 pg/mL (5.0-100.0) 05/10/17 04:55 Total Protein 6.3 gm/dL (6.0-8.3) 05/12/17 04:40 Albumin 1.9 gm/dL (4.2-5.5) L 05/12/17 04:40 Globulin 4.4 gm/dL 05/12/17 04:40 Albumin/Globulin Ratio 0.4 (1.0-1.8) L 05/12/17 04:40 Prealbumin 10 mg/dL (10-36) 05/08/17 05:00 Triglycerides 318 mg/dL (<150) H 05/12/17 04:40 Cholesterol 91 mg/dL (<200) 05/12/17 04:40 LDL Cholesterol Direct 38 mg/dL (75-193) L 04/14/17 14:55 HDL Cholesterol 13 mg/dL (23-92) L 04/14/17 14:55 Amylase 53 U/L (29-103) 05/09/17 06:00 Lipase 85 U/L (11-82) H 05/09/17 06:00 Urine Source [place] 05/03/17 13:38 Urine Color YELLOW 05/03/17 13:38 Urine Clarity TURBID (CLEAR) 05/03/17 13:38 Urine pH 7.5 05/03/17 13:38 Ur Specific Harmon 1.010 (1.005-1.030) 05/03/17 13:38 Urine Protein NEGATIVE mg/dL (NEGATIVE) 05/03/17 13:38 Urine Glucose (UA) NEGATIVE mg/dL (NEGATIVE) 05/03/17 13:38 Urine Ketones NEGATIVE mg/dL (NEGATIVE) 05/03/17 13:38 Urine Blood MODERATE (NEGATIVE) H 05/03/17 13:38 Urine Nitrate NEGATIVE (NEGATIVE) 05/03/17 13:38 Urine Bilirubin NEGATIVE (NEGATIVE) 05/03/17 13:38 Urine Urobilinogen 0.2 E.U./dL (0.2 - 1.0) 05/03/17 13:38 Ur Leukocyte Esterase TRACE (NEGATIVE) H 05/03/17 13:38 Urine RBC 50-100 /hpf (0-5) H 05/03/17 13:38 Urine WBC 6-10 /hpf (0-5) H 05/03/17 13:38 Ur Epithelial Cells FEW /lpf (FEW) 05/03/17 13:38 Amorphous Sediment MANY URATES (NONE SEEN) 04/14/17 15:05 Urine Bacteria FEW /hpf (NONE SEEN) 05/03/17 13:38 Vancomycin Trough 13.5 ug/mL (10-20) 04/19/17 19:20 Helicobacter pylori Ab NEGATIVE (NEGATIVE) 05/04/17 10:05 Blood Type O POSITIVE 05/02/17 07:12 Antibody Screen NEGATIVE 05/02/17 07:12 Crossmatch See Detail 05/02/17 07:12 - Physical Exam Vitals and I&O: Vital Signs Temp 100.2 F 05/12/17 08:00 Pulse 104 05/12/17 11:00 Resp 17 05/12/17 11:00 BP 134/74 05/12/17 11:00 Pulse Ox 100 05/12/17 10:59 Intake & Output 05/11/17 05/12/17 05/12/17 18:59 06:59 18:59 Intake Total 5018.666 200 200.000 Output Total 1760 1640 Balance 3258.666 -1440 200.000 Weight (lbs) 107.955 kg 108 kg Intake: Intake, IV Amount 3818.666 200 200.000 D5-0.45NS 1,000 ml @ 40 1000 mls/hr IV .Q24H ARIAN Rx#: [id number] Diltiazem 125 mg In 118.666 Dextrose 5% 100 ml @ 10 MG/HR 10 mls/hr IV TITR ARIAN Rx#:[id number] Fluconazole 200mg/100mL 100 200 mg In 100 ml @ 100 mls/hr IV Q24HR ARIAN Rx#: [id number] Meropenem 1 gm In Sodium 100 100 100 Chloride 0.9% 100 ml @ 100 mls/hr IV Q8H ARIAN Rx# :[id number] Multivitamin Inj 10 ml In 2400 Dextrose 70% 1,740 ml In Amino Acids 10% 500 ml In Intralipids 20% 150 ml @ 100 mls/hr IV .Q24H ARIAN Rx#:[id number] Tigecycline 50 mg In 100 100 100.000 Sodium Chloride 0.9% 100 ml @ 100 mls/hr IV Q12H [facility] Rx#:[id number] TPN/PPN 1200 Output: Gastric Drainage 250 Drainage 10 40 Medial Abdomen 10 40 Urine 1500 1600 Other: # Bowel Movements 0 Active Medications: Current Medications Acetaminophen (Tylenol 650mg/20.3ml Suspension) 650 mg NG Q6H PRN PRN Reason: FEVER/PAIN Stop: 06/21/17 17:45 Last Admin: 05/11/17 09:31 Dose: 650 mg Albuterol/Ipratropium (Duoneb Neb) 3 ml HHN Q4HRT ARIAN Stop: 06/15/17 14:59 Last Admin: 05/12/17 10:58 Dose: 3 ml Amiodarone HCl (Cordarone) 200 mg NG BID [facility] Stop: 06/24/17 23:14 Last Admin: 05/12/17 08:55 Dose: 200 mg Budesonide (Pulmicort) 0.5 mg HHN BIDRT ARIAN Stop: 06/15/17 18:59 Last Admin: 05/12/17 07:27 Dose: 0.5 mg Chlorhexidine Gluconate (Peridex) 15 ml MM 08,1999 [facility] Stop: 06/30/17 19:59 Last Admin: 05/12/17 08:00 Dose: 15 ml Enalaprilat (Vasotec) 2.5 mg IVP Q4HR PRN PRN Reason: SBP>150 Stop: 07/06/17 15:59 Famotidine (Pepcid) 20 mg IVP Q6HR [facility] Stop: 07/06/17 11:59 Last Admin: 05/12/17 11:17 Dose: 20 mg Furosemide (Lasix) 40 mg IVP BID [facility] Stop: 05/12/17 17:01 Last Admin: 05/12/17 08:56 Dose: 40 mg Multivitamins/Minerals 10 ml/Dextrose/ Amino Acids/Electrolytes/ Fat Emulsion Intravenous 2,400 mls @ 100 mls/hr IV .Q24H [facility] Stop: 06/23/17 15:59 Last Admin: 05/11/17 18:11 Dose: 100 mls/hr Dextrose/Sodium Chloride (D5-0.45ns) 1,000 mls @ 40 mls/hr IV .Q24H [facility] Stop: 06/23/17 15:59 Last Admin: 05/11/17 21:39 Dose: 40 mls/hr Norepinephrine Bitartrate 4 mg (/ Dextrose) 254 mls @ 0 mls/hr IV TITR PRN; Protocol; 0 MCG/MIN PRN Reason: BP MAINTENANCE (PER PROTOCOL) Stop: 06/30/17 09:25 Last Titration: 05/02/17 07:00 Dose: Infused Meropenem 1 gm/ Sodium (Chloride) 100 mls @ 100 mls/hr IV Q8H [facility] Stop: 06/30/17 11:14 Last Admin: 05/12/17 12:00 Dose: 100 mls/hr Fluconazole (Diflucan) 200 mg in 100 mls @ 100 mls/hr IV Q24HR [facility] Stop: 07/01/17 12:29 Last Admin: 05/12/17 12:58 Dose: 100 mls/hr Tigecycline 50 mg/ Sodium (Chloride) 100 mls @ 100 mls/hr IV Q12H [facility] Stop: 07/05/17 21:59 Last Infusion: 05/12/17 12:59 Dose: Infused Diltiazem HCl 125 mg/ Dextrose 125 mls @ 10 mls/hr IV TITR ARIAN; 10 MG/HR PRN Reason: Protocol Stop: 07/06/17 11:14 Last Titration: 05/11/17 18:00 Dose: 0 mg/hr, 0 mls/hr Insulin Aspart (Novolog Insulin Sliding Scale) 0 units SUBQ Q6HR ARIAN PRN Reason: Protocol Stop: 06/16/17 17:59 Last Admin: 05/12/17 13:05 Dose: Not Given Metoclopramide HCl (Reglan) 10 mg IVP Q8HR [facility] Stop: 07/06/17 20:59 Last Admin: 05/12/17 12:58 Dose: 10 mg Metoprolol Tartrate (Lopressor) 25 mg PO BID [facility] Stop: 06/26/17 08:59 Last Admin: 05/12/17 09:05 Dose: Not Given Mineral Oil (Mineral Oil 30 Ml) 30 ml NG DAILY [facility] Stop: 07/04/17 12:29 Last Admin: 05/12/17 09:05 Dose: 30 ml Miscellaneous (Probiotic Screen) 1 ea MC PRN PRN PRN Reason: PROTOCOL Stop: 06/14/17 09:39 Miscellaneous (Tpn Per Pharmacy) 1 ea PRN PRN PRN Reason: PROTOCOL Stop: 06/16/17 12:28 Miscellaneous (Vte Chemical Prophylaxis Screen/ Admission) 1 ea MC PRN PRN PRN Reason: PROTOCOL Stop: 07/01/17 14:44 Morphine Sulfate (Morphine) 2 mg IVP Q4HR PRN PRN Reason: pain Stop: 07/01/17 09:37 Last Admin: 05/12/17 06:19 Dose: 2 mg Ondansetron HCl (Zofran) 4 mg IVP Q6H PRN PRN Reason: Nausea / Vomiting Stop: 06/13/17 20:08 Last Admin: 05/09/17 12:15 Dose: 4 mg Pantoprazole Sodium (Protonix) 40 mg IVP BID ARIAN Stop: 07/01/17 10:14 Last Admin: 05/12/17 09:07 Dose: Not Given General: no acute distress, well developed, well nourished HEENT: atraumatic, normocephalic, PERRLA, EOMI, moist mucous membrane Neck: supple, no thyromegaly Cardiovascular: S1S2, regular Lungs: clear to auscultation bilaterally, clear to percussion, other (decreased breath sounds.) Abdomen: soft, distended, other (open surgical wound. colostomy.) Extremities: edema, no cyanosis, no clubbing Neurological: other (lethargic, open his eyes.) - Procedures Procedures: Procedures Procedure Code Date BYPASS SIGMOID COLON TO CUTANEOUS, OPEN APPROACH [id number] 04/14/17 INSERT EMERGENCY AIRWAY 05393 04/14/17 INSERTION OF ENDOTRACHEAL AIRWAY INTO TRACHEA, VIA OPENING [id number] 04/14/17 PARTIAL REMOVAL OF COLON 53507 04/14/17 RESECTION OF SIGMOID COLON, OPEN APPROACH [id number] 04/14/17 RESPIRATORY VENTILATION, 24-96 CONSECUTIVE HOURS [id number] 04/14/17 VENT MGMT INPAT INIT DAY 76634 04/14/17 VENT MGMT INPAT SUBQ DAY 43069 04/14/17 Infectious Disease Assmt/Plan - Problem List Patient Problems: All Active Problems Abscess of sigmoid colon due to diverticulitis (Acute) K57.20 Diverticulitis of sigmoid colon (Acute) K57.32 Obesity (Acute) E66.9 Perforation of sigmoid colon due to diverticulitis (Acute) K57.20 Peritonitis (acute) generalized (Acute) K65.0 - Assessment Assessment: 1. Sepsis. febrile. 2. Diverticulitis, sigmoid diverticula to with support complicated by multiple abscesses and peritonitis. treated with expl lap. lactic asid WNL. 3. Post operatively, on ventilator. 4. Peritonitis. Likely polymicrobial. 5. Asthma exacerbation. 6. History of arthritis. 7. Distended abdomen likely post operative ileus. Rule out small bowel obstruction. 8. SEKOU. Improved. 9. Post op, paralytic ileus. improved. 10. Wrist cellulitis, worse on left with destruction of bones. X ray of the left wrist suggested osteomyelitis. 11. Wound dehiscence. 12. Vent dependent respiratory failure. 13. Left leg cellulitis. 14. Pneumonia, ( On CT scan). 15. fever might be from cellulitis, peritonitis or pneumonia. even due to ileus. however, there is no leukocytosis, no bandemia, normal differential and no reactive thrombocytosis.lactic acid is wnl. 16. Ileus, on ngt suction. 17. Anasarca. - Plan Plan: Continue tygacil, merrem and diflucan. May consider to change all the lines, if patient remains febrile. KUB in am. give lasix and BNP, KUB in AM. poor prognosis. Nutritional Asmnt/Malnutr-PDOC - Dietary Evaluation Malnutrition Findings (Please click <Entered> for more info): Nutritional Asmnt/Malnutrition Start: 04/19/17 14: 21 Text: Status: Complete Freq: Document 04/19/17 14:21 [email or web address] (Rec: 04/19/17 14:58 [id number]) Nutritional Asmnt/Malnutrition Patient General Information Nutritional Screening Moderate Risk Screening Diagnosis Sepsis, diverticulitis, peritonitis Pertinent Medical Hx/Surgical Hx Asthma, diverticulosis Subjective Information 56 year old male frome home. Pt was restless, moving extremities during visit. 04/14 : sigmoid colectomy, end colostomy, abscess drainage, diffuse peritontis. 04/16: pt started PPN. 04/17: central line and started on TPN. Spoke to family at bedside, explained parenteral nutrition , family undersoto and has no further question at this time. Weight discrepancies noted in EMR, family does not know UBW , estimated nutritional needs based Current Diet Order/ Nutrition Support TPN D10% AA4.25% at 90ml/hr with IL20% 150ml, providing 1401.6kcal Pertinent Medications Dilaudid, Novolog, Culturelle, Magnesium Sulfate, Vancomycin , TPN, Morphine, Multivitamins , Zofran, Protonix, Nacl0.9% Pertinent Labs 04/14: triglycerides 106, total bilirubin 1.1H, glucose 116H 04/17: magnesium 2.5, phsophorus 3.2 04/19: magnesium 1.8L, phosphorus 2.4L, BUN 28H, creatinine 1.3, glucose 154H, total bilirubin 1.1H, triglycerides 238H Nutritional Hx/Data Height 1.7 m Height (Calculated Centimeters) 170.2 Current Weight (lbs) 95.254 kg Weight (Calculated Kilograms) 95.3 Weight (Calculated Grams) 63715.4 [place] Body Weight 148 Weight Status Overweight GI Symptoms Skin Integrity/Comment: [place] 14. Facial non-pitting 1+, bilateral hands pitting 1+ Estimated Nutritional Goals Calories/Kcals/Kg IBW 148/67.3kg Kcals Calculated 2019-2356kcal (30-35kcal/kg) Protein Calculated 101-135g (1.5-2g/kg) Fluid: ml Per MD Nutritional Problem 1. Problem Problem Altered GI function related to Etiology abscess and perforation of sigmoid colon due to diverticulitis aeb Signs/Symptoms: post-operative, on TPN Intervention/Recommendation Comments 1. Recommend TPN D15% AA5.5% at 100ml/hr with IL20% 150ml, providing 2400ml total volume, 2052kcal, 132g protein, meeting 100% of estimated nutritional needs. Carb load 2 .6mg/kg/min (using 210lb adm weight). 2. Monitor for possible refeeding syndrome, 04/18: phsophorus 2.1L, 04/19: magnesium 1.9. 3. Monitor triglycerides, total bilirubin, glucose, renal labs. Expected Outcomes/Goals Expected Outcomes/Goals 1. Pt to meet 100% of estimated nutritional needs on TPN.
[2017-05-12] MEDS: TPN 10%-70% CUSTOM IV SCH (17:20)
--- NOTE | 2017-05-12 18:15 | General Progress Note ---
Subjective - Review of Systems Subjective: Patient is seen and examined. Patient is on vent. Trying to following any commands. Patient is on IV Cardizem drip. Patient . Objective - Results Result Diagrams: 05/12/17 04:40 05/12/17 04:40 Recent Labs: Laboratory Last Values WBC 10.4 Th/cmm (4.8-10.8) 05/12/17 04:40 RBC 3.28 Mil/cmm (4.30-5.70) L 05/12/17 04:40 Hgb 8.9 gm/dL (13.2-17.3) L 05/12/17 04:40 Hct 26.9 % (39.0-49.0) L 05/12/17 04:40 MCV 82.3 fl (80-99) 05/12/17 04:40 MCH 27.2 pg (26.0-30.0) 05/12/17 04:40 MCHC Differential 33.1 pg (28.0-36.0) 05/12/17 04:40 RDW 17.0 % (11.5-20.0) 05/12/17 04:40 Plt Count 294 Th/cmm (150-400) 05/12/17 04:40 MPV 7.6 fl 05/12/17 04:40 Neutrophils % 56.8 % (40.0-80.0) 05/12/17 04:40 Band Neutrophils % 4 % (0-10) 05/02/17 05:15 Lymphocytes % 18.1 % (20.0-50.0) L 05/12/17 04:40 Monocytes % 10.6 % (2.0-10.0) H 05/12/17 04:40 Eosinophils % 13.9 % (0.0-5.0) H 05/12/17 04:40 Basophils % 0.6 % (0.0-2.0) 05/12/17 04:40 Neutrophils (Manual) 68 % (40-80) 05/02/17 05:15 Lymphocytes 14 % (20-50) L 05/02/17 05:15 Monocytes 8 % (2-10) 05/02/17 05:15 Eosinophils 6 % (0-5) H 05/02/17 05:15 Metamyelocytes 1 % (0-0) H 04/22/17 05:04 Platelet Estimate ADEQUATE (NORMAL) 05/02/17 05:15 Platelet Morphology NORMAL (NORMAL) 05/02/17 05:15 Anisocytosis 1+ 04/28/17 06:08 Microcytosis 1+ 05/02/17 05:15 RBC Morph Micro Appear ABNORMAL (NORMAL) 05/02/17 05:15 ESR > 140 mm/hr (0-20) H 04/20/17 07:00 PT 11.9 SECONDS (9.5-11.5) H 04/24/17 21:19 INR 1.13 (0.5-1.4) 04/24/17 21:19 PTT (Actin FS) 27.6 SECONDS (26.0-38.0) 04/24/17 21:19 Specimen Source Arterial 05/12/17 09:00 Sample Site Right Radial 05/12/17 09:00 pH 7.49 (7.35-7.45) H 05/12/17 09:00 pCO2 39.0 mmHg (35.0-45.0) 05/12/17 09:00 pO2 106.0 mmHg (80.0-100.0) H 05/12/17 09:00 HCO3 29.6 mEq/L (20.0-26.0) H 05/12/17 09:00 Base Excess 5.9 mEq/L (-3.0-3.0) H 05/12/17 09:00 O2 Saturation 98.0 % (92.0-100.0) 05/12/17 09:00 Chau Test YES 05/12/17 09:00 Vent Rate 16 05/12/17 09:00 Inspired O2 30 05/12/17 09:00 Tidal Volume 450 05/12/17 09:00 PEEP 3 05/12/17 09:00 Pressure (ins/psv/peep) NA 05/12/17 09:00 Critical Value E.ROSEN 05/12/17 09:00 Sodium 147 mEq/L (136-145) H 05/12/17 04:40 Potassium 3.9 mEq/L (3.5-5.1) 05/12/17 04:40 Chloride 116 mEq/L (98-107) H 05/12/17 04:40 Carbon Dioxide 28.7 mEq/L (21.0-31.0) 05/12/17 04:40 Anion Gap 6.2 (7.0-16.0) L 05/12/17 04:40 BUN 44 mg/dL (7-25) H 05/12/17 04:40 Creatinine 1.0 mg/dL (0.7-1.3) 05/12/17 04:40 Est GFR ( Amer) > 60.0 ml/min (>90) 05/12/17 04:40 Est GFR (Non-Af Amer) > 60.0 ml/min 05/12/17 04:40 BUN/Creatinine Ratio 44.0 05/12/17 04:40 Glucose 148 mg/dL (70-105) H 05/12/17 04:40 POC Glucose 118 MG/DL (70 - 105) H 05/12/17 17:49 Hemoglobin A1c % 6.7 % (4.0-6.0) H 04/22/17 05:04 Whole Bld Lactic Acid 1.66 mmol/L (0.60-1.99) 05/12/17 04:40 Uric Acid 3.6 mg/dL (4.4-7.6) L 04/20/17 07:00 Calcium 10.0 mg/dL (8.6-10.3) 05/12/17 04:40 Phosphorus 4.4 mg/dL (2.5-5.0) 05/12/17 04:40 Magnesium 2.0 mg/dL (1.9-2.7) 05/12/17 04:40 Total Bilirubin 0.5 mg/dL (0.3-1.0) 05/12/17 04:40 Direct Bilirubin 0.18 mg/dL (0.0-0.2) 05/12/17 04:40 AST 49 U/L (13-39) H 05/12/17 04:40 ALT 21 U/L (7-52) 05/12/17 04:40 Alkaline Phosphatase 129 U/L (34-104) H 05/12/17 04:40 Ammonia 45 umol/L (16-53) 05/12/17 04:40 Creatine Kinase 136 U/L (30-223) 04/14/17 14:55 Troponin I 0.01 ng/mL (0.01-0.05) 04/22/17 05:04 C-Reactive Protein 23.6 mg/dL (0.0-0.9) H 05/07/17 04:45 B-Natriuretic Peptide 20.9 pg/mL (5.0-100.0) 05/10/17 04:55 Total Protein 6.3 gm/dL (6.0-8.3) 05/12/17 04:40 Albumin 1.9 gm/dL (4.2-5.5) L 05/12/17 04:40 Globulin 4.4 gm/dL 05/12/17 04:40 Albumin/Globulin Ratio 0.4 (1.0-1.8) L 05/12/17 04:40 Prealbumin 10 mg/dL (10-36) 05/08/17 05:00 Triglycerides 318 mg/dL (<150) H 05/12/17 04:40 Cholesterol 91 mg/dL (<200) 05/12/17 04:40 LDL Cholesterol Direct 38 mg/dL (75-193) L 04/14/17 14:55 HDL Cholesterol 13 mg/dL (23-92) L 04/14/17 14:55 Amylase 53 U/L (29-103) 05/09/17 06:00 Lipase 85 U/L (11-82) H 05/09/17 06:00 Urine Source [place] 05/03/17 13:38 Urine Color YELLOW 05/03/17 13:38 Urine Clarity TURBID (CLEAR) 05/03/17 13:38 Urine pH 7.5 05/03/17 13:38 Ur Specific Parrish 1.010 (1.005-1.030) 05/03/17 13:38 Urine Protein NEGATIVE mg/dL (NEGATIVE) 05/03/17 13:38 Urine Glucose (UA) NEGATIVE mg/dL (NEGATIVE) 05/03/17 13:38 Urine Ketones NEGATIVE mg/dL (NEGATIVE) 05/03/17 13:38 Urine Blood MODERATE (NEGATIVE) H 05/03/17 13:38 Urine Nitrate NEGATIVE (NEGATIVE) 05/03/17 13:38 Urine Bilirubin NEGATIVE (NEGATIVE) 05/03/17 13:38 Urine Urobilinogen 0.2 E.U./dL (0.2 - 1.0) 05/03/17 13:38 Ur Leukocyte Esterase TRACE (NEGATIVE) H 05/03/17 13:38 Urine RBC 50-100 /hpf (0-5) H 05/03/17 13:38 Urine WBC 6-10 /hpf (0-5) H 05/03/17 13:38 Ur Epithelial Cells FEW /lpf (FEW) 05/03/17 13:38 Amorphous Sediment MANY URATES (NONE SEEN) 04/14/17 15:05 Urine Bacteria FEW /hpf (NONE SEEN) 05/03/17 13:38 Vancomycin Trough 13.5 ug/mL (10-20) 04/19/17 19:20 Helicobacter pylori Ab NEGATIVE (NEGATIVE) 05/04/17 10:05 Blood Type O POSITIVE 05/02/17 07:12 Antibody Screen NEGATIVE 05/02/17 07:12 Crossmatch See Detail 05/02/17 07:12 - Physical Exam Vitals and I&O: Vital Signs Temp 98.2 F 05/12/17 12:00 Pulse 101 05/12/17 17:28 Resp 38 05/12/17 15:00 BP 133/80 05/12/17 17:28 Pulse Ox 99 05/12/17 17:24 Intake & Output 05/11/17 05/12/17 05/12/17 18:59 06:59 18:59 Intake Total 5018.189 283 9140.333 Output Total 1760 1640 Balance 3258.666 -1440 2713.333 Weight (lbs) 107.955 kg 108 kg Intake: Intake, IV Amount 3818.786 280 0744.333 D5-0.45NS 1,000 ml @ 40 1000 mls/hr IV .Q24H [facility] Rx#: [id number] Diltiazem 125 mg In 118.666 Dextrose 5% 100 ml @ 10 MG/HR 10 mls/hr IV TITR [facility] Rx#:[id number] Fluconazole 200mg/100mL 100 100 200 mg In 100 ml @ 100 mls/hr IV Q24HR [facility] Rx#: [id number] Meropenem 1 gm In Sodium 100 100 200 Chloride 0.9% 100 ml @ 100 mls/hr IV Q8H [facility] Rx# :[id number] Multivitamin Inj 10 ml In 2400 2313.333 Dextrose 70% 1,740 ml In Amino Acids 10% 500 ml In Intralipids 20% 150 ml @ 100 mls/hr IV .Q24H [facility] Rx#:[id number] Tigecycline 50 mg In 100 100 100.000 Sodium Chloride 0.9% 100 ml @ 100 mls/hr IV Q12H [facility] Rx#:[id number] TPN/PPN 1200 Output: Gastric Drainage 250 Drainage 10 40 Medial Abdomen 10 40 Urine 1500 1600 Other: # Bowel Movements 0 Active Medications: Current Medications Acetaminophen (Tylenol 650mg/20.3ml Suspension) 650 mg NG Q6H PRN PRN Reason: FEVER/PAIN Stop: 06/21/17 17:45 Last Admin: 05/11/17 09:31 Dose: 650 mg Albuterol/Ipratropium (Duoneb Neb) 3 ml HHN Q4HRT [facility] Stop: 06/15/17 14:59 Last Admin: 05/12/17 15:21 Dose: 3 ml Amiodarone HCl (Cordarone) 200 mg NG BID [facility] Stop: 06/24/17 23:14 Last Admin: 05/12/17 08:55 Dose: 200 mg Budesonide (Pulmicort) 0.5 mg HHN BIDRT [facility] Stop: 06/15/17 18:59 Last Admin: 05/12/17 07:27 Dose: 0.5 mg Chlorhexidine Gluconate (Peridex) 15 ml MM 0800,2000 [facility] Stop: 06/30/17 19:59 Last Admin: 05/12/17 08:00 Dose: 15 ml Enalaprilat (Vasotec) 2.5 mg IVP Q4HR PRN PRN Reason: SBP>150 Stop: 07/06/17 15:59 Famotidine (Pepcid) 20 mg IVP Q6HR [facility] Stop: 07/06/17 11:59 Last Admin: 05/12/17 17:27 Dose: 20 mg Multivitamins/Minerals 10 ml/Dextrose/ Amino Acids/Electrolytes/ Fat Emulsion Intravenous 2,400 mls @ 100 mls/hr IV .Q24H [facility] Stop: 06/23/17 15:59 Last Admin: 05/12/17 17:20 Dose: 100 mls/hr Dextrose/Sodium Chloride (D5-0.45ns) 1,000 mls @ 40 mls/hr IV .Q24H [facility] Stop: 06/23/17 15:59 Last Admin: 05/11/17 21:39 Dose: 40 mls/hr Norepinephrine Bitartrate 4 mg (/ Dextrose) 254 mls @ 0 mls/hr IV TITR PRN; Protocol; 0 MCG/MIN PRN Reason: BP MAINTENANCE (PER PROTOCOL) Stop: 06/30/17 09:25 Last Titration: 05/02/17 07:00 Dose: Infused Meropenem 1 gm/ Sodium (Chloride) 100 mls @ 100 mls/hr IV Q8H [facility] Stop: 06/30/17 11:14 Last Infusion: 05/12/17 15:24 Dose: Infused Fluconazole (Diflucan) 200 mg in 100 mls @ 100 mls/hr IV Q24HR [facility] Stop: 07/01/17 12:29 Last Infusion: 05/12/17 17:33 Dose: Infused Tigecycline 50 mg/ Sodium (Chloride) 100 mls @ 100 mls/hr IV Q12H [facility] Stop: 07/05/17 21:59 Last Infusion: 05/12/17 12:59 Dose: Infused Diltiazem HCl 125 mg/ Dextrose 125 mls @ 10 mls/hr IV TITR [facility]; 10 MG/HR PRN Reason: Protocol Stop: 07/06/17 11:14 Last Titration: 05/11/17 18:00 Dose: 0 mg/hr, 0 mls/hr Insulin Aspart (Novolog Insulin Sliding Scale) 0 units SUBQ Q6HR [facility] PRN Reason: Protocol Stop: 06/16/17 17:59 Last Admin: 05/12/17 13:05 Dose: Not Given Metoclopramide HCl (Reglan) 10 mg IVP Q8HR [facility] Stop: 07/06/17 20:59 Last Admin: 05/12/17 12:58 Dose: 10 mg Metoprolol Tartrate (Lopressor) 25 mg PO BID [facility] Stop: 06/26/17 08:59 Last Admin: 05/12/17 17:28 Dose: 25 mg Mineral Oil (Mineral Oil 30 Ml) 30 ml NG DAILY [facility] Stop: 07/04/17 12:29 Last Admin: 05/12/17 09:05 Dose: 30 ml Miscellaneous (Probiotic Screen) 1 ea MC PRN PRN PRN Reason: PROTOCOL Stop: 06/14/17 09:39 Miscellaneous (Tpn Per Pharmacy) 1 ea MC PRN PRN PRN Reason: PROTOCOL Stop: 06/16/17 12:28 Miscellaneous (Vte Chemical Prophylaxis Screen/ Admission) 1 ea MC PRN PRN PRN Reason: PROTOCOL Stop: 07/01/17 14:44 Morphine Sulfate (Morphine) 2 mg IVP Q4H PRN PRN Reason: PAIN Stop: 07/11/17 16:49 Ondansetron HCl (Zofran) 4 mg IVP Q6H PRN PRN Reason: Nausea / Vomiting Stop: 06/13/17 20:08 Last Admin: 05/09/17 12:15 Dose: 4 mg Pantoprazole Sodium (Protonix) 40 mg IVP BID [facility] Stop: 07/01/17 10:14 Last Admin: 05/12/17 09:07 Dose: Not Given General: Other (sedated and intubated.) HEENT: Atraumatic, PERRLA, EOMI, Mucous membr. moist/pink, Other (oral endotracheal tube,NG tube+) Neck: Supple, +2 carotid pulse wo bruit Cardiovascular: Regular rate, Normal S1, Normal S2 Lungs: Other (diffuse rhonchi.) Abdomen: Soft, Other ( wound VAC anterior open abdominal wall wound. L colostomy retracted but still functional w/ stool output.) Extremities: Edema, Other (no edema and cyanosis.) Neurological: Reflexes 2+, Other (Patient is intubated and sedated) Psych/Mental Status: Other (Sedated) - Procedures Procedures: Procedures Procedure Code Date BYPASS SIGMOID COLON TO CUTANEOUS, OPEN APPROACH [id number] 04/14/17 INSERT EMERGENCY AIRWAY 90152 04/14/17 INSERTION OF ENDOTRACHEAL AIRWAY INTO TRACHEA, VIA OPENING [id number] 04/14/17 PARTIAL REMOVAL OF COLON 85589 04/14/17 RESECTION OF SIGMOID COLON, OPEN APPROACH [id number] 04/14/17 RESPIRATORY VENTILATION, 24-96 CONSECUTIVE HOURS [id number] 04/14/17 VENT MGMT INPAT INIT DAY 02957 04/14/17 VENT MGMT INPAT SUBQ DAY 30270 04/14/17 Assessment/Plan - Problem List Patient Problems: All Active Problems Abscess of sigmoid colon due to diverticulitis (Acute) K57.20 Diverticulitis of sigmoid colon (Acute) K57.32 Obesity (Acute) E66.9 Perforation of sigmoid colon due to diverticulitis (Acute) K57.20 Peritonitis (acute) generalized (Acute) K65.0 - Assessment Assessment: Current Active Problems Problem Status Onset Abscess of sigmoid colon due to diverticulitis Acute Diverticulitis of sigmoid colon Acute Obesity Acute Perforation of sigmoid colon due to diverticulitis Acute Peritonitis (acute) generalized Acute Perforated diverticulitis status post expiratory laparotomy and colostomy placement. Postoperative respiratory failure on vent. Obesity. Upper GI bleed. Suspect developing ARDS. Polymicrobial peritonitis due to perforation.. Asthma. SVT currently on Cardizem drip Electrolyte imbalance. SEKOU . Encephalopathy due to metabolic and infectious etio. Open surgical wound with wound VAC. Altered mental status secondary to metabolic and infectious encephalopathy. Postop anemia. - Plan Plan: ICU status. Vent support. Nebulizer treatment. Pulmonary toilet. Needs Trach MARYELLEN. IV antibiotics as per ID. TPN. Needs PEG. Rate control with cardizem drip. Blood pressure control Wound care with wound VAC Surgical follow-up ID follow-up Cardiology follow-up Pulmonary follow-up ICU care. IV PPI. Monitor lab. Guarded prognosis. Chronic management of his medical illnesses. Care plan discussed with RN. Nutritional Asmnt/Malnutr-PDOC - Dietary Evaluation Malnutrition Findings (Please click <Entered> for more info): Nutritional Asmnt/Malnutrition Start: 04/19/17 14: 21 Text: Status: Complete Freq: Document 04/19/17 14:21 GSUN (Rec: 04/19/17 14:58 [id number]) Nutritional Asmnt/Malnutrition Patient General Information Nutritional Screening Moderate Risk Screening Diagnosis Sepsis, diverticulitis, peritonitis Pertinent Medical Hx/Surgical Hx Asthma, diverticulosis Subjective Information 56 year old male frome home. Pt was restless, moving extremities during visit. 04/14 : sigmoid colectomy, end colostomy, abscess drainage, diffuse peritontis. 04/16: pt started PPN. 04/17: central line and started on TPN. Spoke to family at bedside, explained parenteral nutrition , family undersoto and has no further question at this time. Weight discrepancies noted in EMR, family does not know UBW , estimated nutritional needs based Current Diet Order/ Nutrition Support TPN D10% AA4.25% at 90ml/hr with IL20% 150ml, providing 1401.6kcal Pertinent Medications Dilaudid, Novolog, Culturelle, Magnesium Sulfate, Vancomycin , TPN, Morphine, Multivitamins , Zofran, Protonix, Nacl0.9% Pertinent Labs 04/14: triglycerides 106, total bilirubin 1.1H, glucose 116H 04/17: magnesium 2.5, phsophorus 3.2 04/19: magnesium 1.8L, phosphorus 2.4L, BUN 28H, creatinine 1.3, glucose 154H, total bilirubin 1.1H, triglycerides 238H Nutritional Hx/Data Height 1.7 m Height (Calculated Centimeters) 170.2 Current Weight (lbs) 95.254 kg Weight (Calculated Kilograms) 95.3 Weight (Calculated Grams) 97798.4 [place] Body Weight 148 Weight Status Overweight GI Symptoms Skin Integrity/Comment: Gilmer 14. Facial non-pitting 1+, bilateral hands pitting 1+ Estimated Nutritional Goals Calories/Kcals/Kg IBW 148/67.3kg Kcals Calculated 2019-2356kcal (30-35kcal/kg) Protein Calculated 101-135g (1.5-2g/kg) Fluid: ml Per MD Nutritional Problem 1. Problem Problem Altered GI function related to Etiology abscess and perforation of sigmoid colon due to diverticulitis aeb Signs/Symptoms: post-operative, on TPN Intervention/Recommendation Comments 1. Recommend TPN D15% AA5.5% at 100ml/hr with IL20% 150ml, providing 2400ml total volume, 2052kcal, 132g protein, meeting 100% of estimated nutritional needs. Carb load 2 .6mg/kg/min (using 210lb adm weight). 2. Monitor for possible refeeding syndrome, 04/18: phsophorus 2.1L, 04/19: magnesium 1.9. 3. Monitor triglycerides, total bilirubin, glucose, renal labs. Expected Outcomes/Goals Expected Outcomes/Goals 1. Pt to meet 100% of estimated nutritional needs on TPN.
[2017-05-12] MEDS: Venelex 60gm Tube TP SCH (18:30)
[2017-05-12] MEDS: Morphine Sulfate 4 mg/mL 1mL Syr IVP PRN (21:10)
[2017-05-13] MEDS: INSULIN ASPART SLIDING SCALE 100 UNITS/ML UNIT SUBQ SCH ×6 (00:20→18:56)
--- NOTE | 2017-05-13 01:18 | Progress Notes ---
DATE: 05/12/2017 PROBLEM LIST: 1. Abdominal sepsis status post surgery. 2. Significant encephalopathy with persistent recurrent tachyarrhythmia, as well as tachypnea. SYMPTOMS: Nil, obtunded, no respiratory distress. PHYSICAL EXAMINATION: VITAL SIGNS: The patient is still on a ventilator, breathing 20 times per minute, temperature is around 99-100 and pulse is about 100-110, blood pressure 134/74, saturation is 90+ on 30% of oxygen. NECK: Veins not visualized. CHEST: Shows diminished air entry with occasional rhonchi. HEART: Regular. ABDOMEN: Still quite tender with guarding in lower abdomen. LABORATORY DATA: White count is 10.4, hemoglobin 8.9. ABG this morning; pCO2 is 39, pO2 is 106 on SIMV of 4, electrolytes looks okay. ASSESSMENT: The patient is still quite encephalopathy, probably secondary to low-grade good infection, peritonitis in the belly, question is to bowel. PLANS AND SUGGESTIONS: We will discuss with Dr. Kahn. Continue rest of other treatment. Care and plan discussed with patient's daughter at the bedside. JOB# [id number]
[2017-05-13] MEDS: Meropenem 1 GM in Sodium Chloride 0.9% 100 ML IV SCH ×3 (02:47→18:15)
[2017-05-13] MEDS: Albuterol/Ipratropium Neb 3 ML AERS HHN SCH ×6 (03:17→23:12)
[2017-05-13] MEDS: D5-0.45NS 1,000 ML IV SCH (04:37)
[2017-05-13] MEDS: Metoclopramide 5 mg/mL 2mL Vial IVP SCH ×3 (04:38→20:57)
[2017-05-13] MEDS: Morphine Sulfate 4 mg/mL 1mL Syr IVP PRN ×4 (04:38→21:05)
[2017-05-13 05:24] LABS: % BASOPHILS 0.5 % (0.0-2.0); % EOSINOPHILS 14.9 % (0.0-5.0); % LYMPHOCYTES 19.3 % (20.0-50.0); % MONOCYTES 9.2 % (2.0-10.0); % NEUTROPHILS 56.1 % (40.0-80.0); HEMATOCRIT 28.2 % (39.0-49.0); HEMOGLOBIN 9.2 gm/dL (13.2-17.3); MEAN CELL VOLUME 81.7 fl (80-99); MEAN CORPUSCULAR HEMOGLOBIN 26.6 pg (26.0-30.0); MEAN CORPUSCULAR HGB CONC 32.6 pg (28.0-36.0); NEUTROPHILE ABSOLUTE 5.8 Th/cmm (1.8-8.0); PLATELET COUNT 297 Th/cmm (150-400); RED BLOOD COUNT 3.45 Mil/cmm (4.30-5.70); RED CELL DISTRIBUTION WIDTH 16.6 % (11.5-20.0); WHITE BLOOD COUNT 10.3 Th/cmm (4.8-10.8)
[2017-05-13 05:56] LABS: ALB/GLOB RATIO 0.4 (1.0-1.8); ALKALINE PHOSPHATASE 145 U/L (34-104); ANION GAP 6.3 (7.0-16.0); BILIRUBIN,DIRECT 0.13 mg/dL (0.0-0.2); BILIRUBIN,TOTAL 0.5 mg/dL (0.3-1.0); BUN - UREA NITROGEN 50 mg/dL (7-25); BUN/CREATININE RATIO 45.5; CALCIUM SERUM 10.2 mg/dL (8.6-10.3); CARBON DIOXIDE 29.3 mEq/L (21.0-31.0); CHLORIDE 119 mEq/L (98-107); CREATININE - SERUM 1.1 mg/dL (0.7-1.3); GLUCOSE 137 mg/dL (70-105); PHOSPHOROUS 4.7 mg/dL (2.5-5.0); POTASSIUM SERUM 3.6 mEq/L (3.5-5.1); SGOT 50 U/L (13-39); SGPT/ALT 22 U/L (7-52); SODIUM SERUM 151 mEq/L (136-145)
[2017-05-13] MEDS: Budesonide 0.5 Mg/2 mL Ud HHN SCH ×2 (06:44→19:14)
[2017-05-13] MEDS: Chlorhexidine Gluconate 0.12% 15mL Mouthwash MM SCH ×2 (08:25→20:30)
[2017-05-13 09:21] LABS: pH 7.41 (7.35-7.45)
[2017-05-13 09:22] LABS: ABG SOURCE Arterial; ALLEN TEST Positive; BE(B) 4.8 mEq/L (-3.0-3.0); FIO2 30; HCO3 28.7 mEq/L (20.0-26.0); MECH RATE 16; MECH VT 450
[2017-05-13 09:23] LABS: CRITICAL VALUES REPORTED BY ACELIS
--- NOTE | 2017-05-13 09:29 | Diagnostic Imaging Report ---
Exam: KUB HISTORY: Ileus Findings: The KUB of the abdomen was reviewed portable supine at 0807 hours demonstrates distention of small bowel loops consistent with ileus or early small bowel obstruction cannot be excluded. Clinical correlation follow-up dictation recommended. NG tube is noted in the gastroesophageal junction should be advanced approximately 10 to 15 cm. IMPRESSION: Ileus, early small bowel obstruction cannot be excluded. Follow-up examination recommended. Advanced NG tube 10 to 15-cm.
--- NOTE | 2017-05-13 09:31 | Diagnostic Imaging Report ---
Exam: Chest portable HISTORY: Shortness of breath. Findings Portable upright examination of the chest at 0750 hours was reviewed the study no prior studies available comparison. The endotracheal tube terminates 4 cm above the ondina. Right jugular catheter terminates in superior vena cava. Mediastinal structures midline the heart is not enlarged. There is evidence of deformity of the left lower rib cage most likely due to old trauma. Costophrenic angles are clear. Mild ill-defined peribronchial thickening in the right base appreciated follow-up examination recommended. IMPRESSION: question of right basal peribronchial thickening early infiltrate cannot be excluded follow-up examination is recommended.
[2017-05-13] MEDS: Fluconazole 200mg/100mL 200 MG/100 ML BAG IV SCH (11:45)
--- NOTE | 2017-05-13 12:09 | Infectious Disease Prog Note ---
Infectious Disease Subjective - Review of Systems Service Date: 05/13/17 Subjective: No new change. Continues to have Intermittent fevers. Intubated nasally, on the ventilator support. on ngt intermittent suction. Infectious Disease Objective - Results Result Diagrams: 05/13/17 04:27 05/13/17 04:27 Recent Labs: Laboratory Last Values WBC 10.3 Th/cmm (4.8-10.8) 05/13/17 04:27 RBC 3.45 Mil/cmm (4.30-5.70) L 05/13/17 04:27 Hgb 9.2 gm/dL (13.2-17.3) L 05/13/17 04:27 Hct 28.2 % (39.0-49.0) L 05/13/17 04:27 MCV 81.7 fl (80-99) 05/13/17 04:27 MCH 26.6 pg (26.0-30.0) 05/13/17 04:27 MCHC Differential 32.6 pg (28.0-36.0) 05/13/17 04:27 RDW 16.6 % (11.5-20.0) 05/13/17 04:27 Plt Count 297 Th/cmm (150-400) 05/13/17 04:27 MPV 8.0 fl 05/13/17 04:27 Neutrophils % 56.1 % (40.0-80.0) 05/13/17 04:27 Band Neutrophils % 4 % (0-10) 05/02/17 05:15 Lymphocytes % 19.3 % (20.0-50.0) L 05/13/17 04:27 Monocytes % 9.2 % (2.0-10.0) 05/13/17 04:27 Eosinophils % 14.9 % (0.0-5.0) H 05/13/17 04:27 Basophils % 0.5 % (0.0-2.0) 05/13/17 04:27 Neutrophils (Manual) 68 % (40-80) 05/02/17 05:15 Lymphocytes 14 % (20-50) L 05/02/17 05:15 Monocytes 8 % (2-10) 05/02/17 05:15 Eosinophils 6 % (0-5) H 05/02/17 05:15 Metamyelocytes 1 % (0-0) H 04/22/17 05:04 Platelet Estimate ADEQUATE (NORMAL) 05/02/17 05:15 Platelet Morphology NORMAL (NORMAL) 05/02/17 05:15 Anisocytosis 1+ 04/28/17 06:08 Microcytosis 1+ 05/02/17 05:15 RBC Morph Micro Appear ABNORMAL (NORMAL) 05/02/17 05:15 ESR > 140 mm/hr (0-20) H 04/20/17 07:00 PT 11.9 SECONDS (9.5-11.5) H 04/24/17 21:19 INR 1.13 (0.5-1.4) 04/24/17 21:19 PTT (Actin FS) 27.6 SECONDS (26.0-38.0) 04/24/17 21:19 Specimen Source Arterial 05/13/17 09:05 Sample Site Right Radial 05/13/17 09:05 pH 7.41 (7.35-7.45) 05/13/17 09:05 pCO2 48.0 mmHg (35.0-45.0) H 05/13/17 09:05 pO2 104.0 mmHg (80.0-100.0) H 05/13/17 09:05 HCO3 28.7 mEq/L (20.0-26.0) H 05/13/17 09:05 Base Excess 4.8 mEq/L (-3.0-3.0) H 05/13/17 09:05 O2 Saturation 98.0 % (92.0-100.0) 05/13/17 09:05 Chau Test Positive 05/13/17 09:05 Vent Rate 16 05/13/17 09:05 Inspired O2 30 05/13/17 09:05 Tidal Volume 450 05/13/17 09:05 PEEP 3 05/13/17 09:05 Pressure (ins/psv/peep) NA 05/13/17 09:05 Critical Value ACELIS 05/13/17 09:05 Sodium 151 mEq/L (136-145) H 05/13/17 04:27 Potassium 3.6 mEq/L (3.5-5.1) 05/13/17 04:27 Chloride 119 mEq/L (98-107) H 05/13/17 04:27 Carbon Dioxide 29.3 mEq/L (21.0-31.0) 05/13/17 04:27 Anion Gap 6.3 (7.0-16.0) L 05/13/17 04:27 BUN 50 mg/dL (7-25) H 05/13/17 04:27 Creatinine 1.1 mg/dL (0.7-1.3) 05/13/17 04:27 Est GFR ( Amer) > 60.0 ml/min (>90) 05/13/17 04:27 Est GFR (Non-Af Amer) > 60.0 ml/min 05/13/17 04:27 BUN/Creatinine Ratio 45.5 05/13/17 04:27 Glucose 137 mg/dL (70-105) H 05/13/17 04:27 POC Glucose 128 MG/DL (70 - 105) H 05/13/17 11:49 Hemoglobin A1c % 6.7 % (4.0-6.0) H 04/22/17 05:04 Whole Bld Lactic Acid 1.66 mmol/L (0.60-1.99) 05/12/17 04:40 Uric Acid 3.6 mg/dL (4.4-7.6) L 04/20/17 07:00 Calcium 10.2 mg/dL (8.6-10.3) 05/13/17 04:27 Phosphorus 4.7 mg/dL (2.5-5.0) 05/13/17 04:27 Magnesium 2.0 mg/dL (1.9-2.7) 05/13/17 04:27 Total Bilirubin 0.5 mg/dL (0.3-1.0) 05/13/17 04:27 Direct Bilirubin 0.13 mg/dL (0.0-0.2) 05/13/17 04:27 AST 50 U/L (13-39) H 05/13/17 04:27 ALT 22 U/L (7-52) 05/13/17 04:27 Alkaline Phosphatase 145 U/L (34-104) H 05/13/17 04:27 Ammonia 45 umol/L (16-53) 05/12/17 04:40 Creatine Kinase 136 U/L (30-223) 04/14/17 14:55 Troponin I 0.01 ng/mL (0.01-0.05) 04/22/17 05:04 C-Reactive Protein 23.6 mg/dL (0.0-0.9) H 05/07/17 04:45 B-Natriuretic Peptide 20.7 pg/mL (5.0-100.0) 05/13/17 04:27 Total Protein 6.4 gm/dL (6.0-8.3) 05/13/17 04:27 Albumin 1.9 gm/dL (4.2-5.5) L 05/13/17 04:27 Globulin 4.5 gm/dL 05/13/17 04:27 Albumin/Globulin Ratio 0.4 (1.0-1.8) L 05/13/17 04:27 Prealbumin 10 mg/dL (10-36) 05/08/17 05:00 Triglycerides 318 mg/dL (<150) H 05/12/17 04:40 Cholesterol 91 mg/dL (<200) 05/12/17 04:40 LDL Cholesterol Direct 38 mg/dL (75-193) L 04/14/17 14:55 HDL Cholesterol 13 mg/dL (23-92) L 04/14/17 14:55 Amylase 53 U/L (29-103) 05/09/17 06:00 Lipase 85 U/L (11-82) H 05/09/17 06:00 Urine Source [place] 05/03/17 13:38 Urine Color YELLOW 05/03/17 13:38 Urine Clarity TURBID (CLEAR) 05/03/17 13:38 Urine pH 7.5 05/03/17 13:38 Ur Specific [place] 1.010 (1.005-1.030) 05/03/17 13:38 Urine Protein NEGATIVE mg/dL (NEGATIVE) 05/03/17 13:38 Urine Glucose (UA) NEGATIVE mg/dL (NEGATIVE) 05/03/17 13:38 Urine Ketones NEGATIVE mg/dL (NEGATIVE) 05/03/17 13:38 Urine Blood MODERATE (NEGATIVE) H 05/03/17 13:38 Urine Nitrate NEGATIVE (NEGATIVE) 05/03/17 13:38 Urine Bilirubin NEGATIVE (NEGATIVE) 05/03/17 13:38 Urine Urobilinogen 0.2 E.U./dL (0.2 - 1.0) 05/03/17 13:38 Ur Leukocyte Esterase TRACE (NEGATIVE) H 05/03/17 13:38 Urine RBC 50-100 /hpf (0-5) H 05/03/17 13:38 Urine WBC 6-10 /hpf (0-5) H 05/03/17 13:38 Ur Epithelial Cells FEW /lpf (FEW) 05/03/17 13:38 Amorphous Sediment MANY URATES (NONE SEEN) 04/14/17 15:05 Urine Bacteria FEW /hpf (NONE SEEN) 05/03/17 13:38 Vancomycin Trough 13.5 ug/mL (10-20) 04/19/17 19:20 Helicobacter pylori Ab NEGATIVE (NEGATIVE) 05/04/17 10:05 Blood Type O POSITIVE 05/02/17 07:12 Antibody Screen NEGATIVE 05/02/17 07:12 Crossmatch See Detail 05/02/17 07:12 - Physical Exam Vitals and I&O: Vital Signs Temp 97.6 F 05/13/17 04:00 Pulse 92 05/13/17 11:09 Resp 26 05/13/17 07:00 BP 128/73 05/13/17 09:50 Pulse Ox 100 05/13/17 12:00 Intake & Output 05/12/17 05/13/17 05/13/17 18:59 06:59 18:59 Intake Total 4213.333 2500 Output Total 2440 2565 Balance 1773.333 -65 Weight (lbs) 108 kg 93.213 kg Intake: Intake, IV Amount 2713.333 1300 D5-0.45NS 1,000 ml @ 40 1000 mls/hr IV .Q24H [facility] Rx#: [id number] Fluconazole 200mg/100mL 100 200 mg In 100 ml @ 100 mls/hr IV Q24HR [facility] Rx#: [id number] Meropenem 1 gm In Sodium 200 200 Chloride 0.9% 100 ml @ 100 mls/hr IV Q8H [facility] Rx# :[id number] Multivitamin Inj 10 ml In 2313.333 Dextrose 70% 1,740 ml In Amino Acids 10% 500 ml In Intralipids 20% 150 ml @ 100 mls/hr IV .Q24H [facility] Rx#:[id number] Tigecycline 50 mg In 100.000 100 Sodium Chloride 0.9% 100 ml @ 100 mls/hr IV Q12H [facility] Rx#:[id number] TPN/PPN 1200 1200 Other 300 Output: Gastric Drainage 75 Drainage 40 40 Medial Abdomen 40 40 Urine 2400 2450 Stool 0 Active Medications: Current Medications Acetaminophen (Tylenol 650mg/20.3ml Suspension) 650 mg NG Q6H PRN PRN Reason: FEVER/PAIN Stop: 06/21/17 17:45 Last Admin: 05/13/17 06:43 Dose: 650 mg Albuterol/Ipratropium (Duoneb Neb) 3 ml HHN Q4HRT [facility] Stop: 06/15/17 14:59 Last Admin: 05/13/17 11:09 Dose: 3 ml Amiodarone HCl (Cordarone) 200 mg NG BID [facility] Stop: 06/24/17 23:14 Last Admin: 05/13/17 09:40 Dose: Not Given Budesonide (Pulmicort) 0.5 mg HHN BIDRT [facility] Stop: 06/15/17 18:59 Last Admin: 05/13/17 06:44 Dose: 0.5 mg Chlorhexidine Gluconate (Peridex) 15 ml MM 0800,1999 [facility] Stop: 06/30/17 19:59 Last Admin: 05/13/17 08:25 Dose: 15 ml Enalaprilat (Vasotec) 2.5 mg IVP Q4HR PRN PRN Reason: SBP>150 Stop: 07/06/17 15:59 Famotidine (Pepcid) 20 mg IVP Q6HR [facility] Stop: 07/06/17 11:59 Last Admin: 05/13/17 11:45 Dose: 20 mg Multivitamins/Minerals 10 ml/Dextrose/ Amino Acids/Electrolytes/ Fat Emulsion Intravenous 2,400 mls @ 100 mls/hr IV .Q24H [facility] Stop: 06/23/17 15:59 Last Admin: 05/12/17 17:20 Dose: 100 mls/hr Dextrose/Sodium Chloride (D5-0.45ns) 1,000 mls @ 40 mls/hr IV .Q24H [facility] Stop: 06/23/17 15:59 Last Admin: 05/13/17 04:37 Dose: 40 mls/hr Norepinephrine Bitartrate 4 mg (/ Dextrose) 254 mls @ 0 mls/hr IV TITR PRN; Protocol; 0 MCG/MIN PRN Reason: BP MAINTENANCE (PER PROTOCOL) Stop: 06/30/17 09:25 Last Titration: 05/02/17 07:00 Dose: Infused Meropenem 1 gm/ Sodium (Chloride) 100 mls @ 100 mls/hr IV Q8H [facility] Stop: 06/30/17 11:14 Last Admin: 05/13/17 10:28 Dose: 100 mls/hr Fluconazole (Diflucan) 200 mg in 100 mls @ 100 mls/hr IV Q24HR [facility] Stop: 07/01/17 12:29 Last Admin: 05/13/17 11:45 Dose: 100 mls/hr Tigecycline 50 mg/ Sodium (Chloride) 100 mls @ 100 mls/hr IV Q12H [facility] Stop: 07/05/17 21:59 Last Admin: 05/13/17 09:25 Dose: 100 mls/hr Diltiazem HCl 125 mg/ Dextrose 125 mls @ 10 mls/hr IV TITR [facility]; 10 MG/HR PRN Reason: Protocol Stop: 07/06/17 11:14 Last Titration: 05/11/17 18:00 Dose: 0 mg/hr, 0 mls/hr Insulin Aspart (Novolog Insulin Sliding Scale) 0 units SUBQ Q6HR [facility] PRN Reason: Protocol Stop: 06/16/17 17:59 Last Admin: 05/13/17 06:09 Dose: Not Given Metoclopramide HCl (Reglan) 10 mg IVP Q8HR [facility] Stop: 07/06/17 20:59 Last Admin: 05/13/17 04:38 Dose: 10 mg Metoprolol Tartrate (Lopressor) 25 mg PO BID [facility] Stop: 06/26/17 08:59 Last Admin: 05/13/17 09:50 Dose: Not Given Mineral Oil (Mineral Oil 30 Ml) 30 ml NG DAILY [facility] Stop: 07/04/17 12:29 Last Admin: 05/13/17 09:35 Dose: Not Given Miscellaneous (Probiotic Screen) 1 ea MC PRN PRN PRN Reason: PROTOCOL Stop: 06/14/17 09:39 Miscellaneous (Tpn Per Pharmacy) 1 ea MC PRN PRN PRN Reason: PROTOCOL Stop: 06/16/17 12:28 Miscellaneous (Vte Chemical Prophylaxis Screen/ Admission) 1 ea MC PRN PRN PRN Reason: PROTOCOL Stop: 07/01/17 14:44 Morphine Sulfate (Morphine) 2 mg IVP Q4H PRN PRN Reason: PAIN Stop: 07/11/17 16:49 Last Admin: 05/13/17 08:45 Dose: 2 mg Ondansetron HCl (Zofran) 4 mg IVP Q6H PRN PRN Reason: Nausea / Vomiting Stop: 06/13/17 20:08 Last Admin: 05/09/17 12:15 Dose: 4 mg Pantoprazole Sodium (Protonix) 40 mg IVP BID [facility] Stop: 07/01/17 10:14 Last Admin: 05/13/17 09:45 Dose: Not Given General: no acute distress, well developed, well nourished HEENT: atraumatic, normocephalic, PERRLA, EOMI, moist mucous membrane Neck: supple, no thyromegaly Cardiovascular: S1S2, regular Lungs: clear to auscultation bilaterally, clear to percussion Abdomen: soft, no tender, no distended Extremities: no cyanosis, no clubbing, no edema Neurological: awake, alert Skin: intact - Procedures Procedures: Procedures Procedure Code Date BYPASS SIGMOID COLON TO CUTANEOUS, OPEN APPROACH [id number] 04/14/17 INSERT EMERGENCY AIRWAY 57468 04/14/17 INSERTION OF ENDOTRACHEAL AIRWAY INTO TRACHEA, VIA OPENING [id number] 04/14/17 PARTIAL REMOVAL OF COLON 22139 04/14/17 RESECTION OF SIGMOID COLON, OPEN APPROACH [id number] 04/14/17 RESPIRATORY VENTILATION, 24-96 CONSECUTIVE HOURS [id number] 04/14/17 VENT MGMT INPAT INIT DAY 48340 04/14/17 VENT MGMT INPAT SUBQ DAY 15638 04/14/17 Infectious Disease Assmt/Plan - Problem List Patient Problems: All Active Problems Abscess of sigmoid colon due to diverticulitis (Acute) K57.20 Diverticulitis of sigmoid colon (Acute) K57.32 Obesity (Acute) E66.9 Perforation of sigmoid colon due to diverticulitis (Acute) K57.20 Peritonitis (acute) generalized (Acute) K65.0 - Assessment Assessment: 1. Sepsis. febrile. 2. Diverticulitis, sigmoid diverticula to with support complicated by multiple abscesses and peritonitis. treated with expl lap. lactic asid WNL. 3. Post operatively, on ventilator. 4. Peritonitis. Likely polymicrobial. 5. Asthma exacerbation. 6. History of arthritis. 7. Distended abdomen likely post operative ileus. Rule out small bowel obstruction. 8. SEKOU. Improved. 9. Post op, paralytic ileus. improved. 10. Wrist cellulitis, worse on left with destruction of bones. X ray of the left wrist suggested osteomyelitis. 11. Wound dehiscence. 12. Vent dependent respiratory failure. 13. Left leg cellulitis. 14. Pneumonia, ( On CT scan). 15. fever might be from cellulitis, peritonitis or pneumonia. even due to ileus. however, there is no leukocytosis, no bandemia, normal differential and no reactive thrombocytosis.lactic acid is wnl. 16. Ileus, on ngt suction. 17. Anasarca. - Plan Plan: Continue tygacil, and merrem and diflucan. May consider to change all the lines, if patient remains febrile. KUB in am. give lasix and BNP. poor prognosis. Nutritional Asmnt/Malnutr-PDOC - Dietary Evaluation Malnutrition Findings (Please click <Entered> for more info): Nutritional Asmnt/Malnutrition Start: 04/19/17 14: 21 Text: Status: Complete Freq: Document 04/19/17 14:21 GSUN (Rec: 04/19/17 14:58 [id number]) Nutritional Asmnt/Malnutrition Patient General Information Nutritional Screening Moderate Risk Screening Diagnosis Sepsis, diverticulitis, peritonitis Pertinent Medical Hx/Surgical Hx Asthma, diverticulosis Subjective Information 56 year old male frome home. Pt was restless, moving extremities during visit. 04/14 : sigmoid colectomy, end colostomy, abscess drainage, diffuse peritontis. 04/16: pt started PPN. 04/17: central line and started on TPN. Spoke to family at bedside, explained parenteral nutrition , family undersoto and has no further question at this time. Weight discrepancies noted in EMR, family does not know UBW , estimated nutritional needs based Current Diet Order/ Nutrition Support TPN D10% AA4.25% at 90ml/hr with IL20% 150ml, providing 1401.6kcal Pertinent Medications Dilaudid, Novolog, Culturelle, Magnesium Sulfate, Vancomycin , TPN, Morphine, Multivitamins , Zofran, Protonix, Nacl0.9% Pertinent Labs 04/14: triglycerides 106, total bilirubin 1.1H, glucose 116H 04/17: magnesium 2.5, phsophorus 3.2 04/19: magnesium 1.8L, phosphorus 2.4L, BUN 28H, creatinine 1.3, glucose 154H, total bilirubin 1.1H, triglycerides 238H Nutritional Hx/Data Height 1.7 m Height (Calculated Centimeters) 170.2 Current Weight (lbs) 95.254 kg Weight (Calculated Kilograms) 95.3 Weight (Calculated Grams) 56591.4 [place] Body Weight 148 Weight Status Overweight GI Symptoms Skin Integrity/Comment: [place] 14. Facial non-pitting 1+, bilateral hands pitting 1+ Estimated Nutritional Goals Calories/Kcals/Kg IBW 148/67.3kg Kcals Calculated 2019-2356kcal (30-35kcal/kg) Protein Calculated 101-135g (1.5-2g/kg) Fluid: ml Per MD Nutritional Problem 1. Problem Problem Altered GI function related to Etiology abscess and perforation of sigmoid colon due to diverticulitis aeb Signs/Symptoms: post-operative, on TPN Intervention/Recommendation Comments 1. Recommend TPN D15% AA5.5% at 100ml/hr with IL20% 150ml, providing 2400ml total volume, 2052kcal, 132g protein, meeting 100% of estimated nutritional needs. Carb load 2 .6mg/kg/min (using 210lb adm weight). 2. Monitor for possible refeeding syndrome, 04/18: phsophorus 2.1L, 04/19: magnesium 1.9. 3. Monitor triglycerides, total bilirubin, glucose, renal labs. Expected Outcomes/Goals Expected Outcomes/Goals 1. Pt to meet 100% of estimated nutritional needs on TPN.
--- NOTE | 2017-05-13 15:55 | Progress Notes ---
DATE: 05/13/2017 PROBLEMS: 1. Persistent respiratory failure. 2. Encephalopathy. 3. Persistent infectious pathology, lower abdomen. The patient is still on ventilator, quite obtunded, no respiratory distress. OBJECTIVE: RECORDED VITALS: Temperature is 97.7, blood pressure 109/90, saturation 100%. NECK: Neck veins not visualized. Good bilateral carotid upstroke. CHEST: Shows diminished air entry with occasional rhonchi. HEART: Regular. ABDOMEN: Still lower abdominal tenderness with guarding. White count is 10.3, hemoglobin is 9.2. ABG shows pCO2 of 48, pO2 of 140 on 30% of oxygen ____ with pressor support. IMPRESSION: The patient clinically not much changed. Continued with encephalopathy, high risk for extubation. Plans and suggestion discussed with Dr. Kahn. Consideration for trach, still lower abdominal issue a major pathology and go from there. JOB# [id number]
[2017-05-13] MEDS: TPN 10%-70% CUSTOM IV SCH (15:59)
--- NOTE | 2017-05-13 20:30 | General Progress Note ---
Subjective - Review of Systems Subjective: Patient is seen and examined. Patient is on vent. Trying to following any commands. Patient is on IV Cardizem drip. Patient . Objective - Results Result Diagrams: 05/13/17 04:27 05/13/17 04:27 Recent Labs: Laboratory Last Values WBC 10.3 Th/cmm (4.8-10.8) 05/13/17 04:27 RBC 3.45 Mil/cmm (4.30-5.70) L 05/13/17 04:27 Hgb 9.2 gm/dL (13.2-17.3) L 05/13/17 04:27 Hct 28.2 % (39.0-49.0) L 05/13/17 04:27 MCV 81.7 fl (80-99) 05/13/17 04:27 MCH 26.6 pg (26.0-30.0) 05/13/17 04:27 MCHC Differential 32.6 pg (28.0-36.0) 05/13/17 04:27 RDW 16.6 % (11.5-20.0) 05/13/17 04:27 Plt Count 297 Th/cmm (150-400) 05/13/17 04:27 MPV 8.0 fl 05/13/17 04:27 Neutrophils % 56.1 % (40.0-80.0) 05/13/17 04:27 Band Neutrophils % 4 % (0-10) 05/02/17 05:15 Lymphocytes % 19.3 % (20.0-50.0) L 05/13/17 04:27 Monocytes % 9.2 % (2.0-10.0) 05/13/17 04:27 Eosinophils % 14.9 % (0.0-5.0) H 05/13/17 04:27 Basophils % 0.5 % (0.0-2.0) 05/13/17 04:27 Neutrophils (Manual) 68 % (40-80) 05/02/17 05:15 Lymphocytes 14 % (20-50) L 05/02/17 05:15 Monocytes 8 % (2-10) 05/02/17 05:15 Eosinophils 6 % (0-5) H 05/02/17 05:15 Metamyelocytes 1 % (0-0) H 04/22/17 05:04 Platelet Estimate ADEQUATE (NORMAL) 05/02/17 05:15 Platelet Morphology NORMAL (NORMAL) 05/02/17 05:15 Anisocytosis 1+ 04/28/17 06:08 Microcytosis 1+ 05/02/17 05:15 RBC Morph Micro Appear ABNORMAL (NORMAL) 05/02/17 05:15 ESR > 140 mm/hr (0-20) H 04/20/17 07:00 PT 11.9 SECONDS (9.5-11.5) H 04/24/17 21:19 INR 1.13 (0.5-1.4) 04/24/17 21:19 PTT (Actin FS) 27.6 SECONDS (26.0-38.0) 04/24/17 21:19 Specimen Source Arterial 05/13/17 09:05 Sample Site Right Radial 05/13/17 09:05 pH 7.41 (7.35-7.45) 05/13/17 09:05 pCO2 48.0 mmHg (35.0-45.0) H 05/13/17 09:05 pO2 104.0 mmHg (80.0-100.0) H 05/13/17 09:05 HCO3 28.7 mEq/L (20.0-26.0) H 05/13/17 09:05 Base Excess 4.8 mEq/L (-3.0-3.0) H 05/13/17 09:05 O2 Saturation 98.0 % (92.0-100.0) 05/13/17 09:05 Chau Test Positive 05/13/17 09:05 Vent Rate 16 05/13/17 09:05 Inspired O2 30 05/13/17 09:05 Tidal Volume 450 05/13/17 09:05 PEEP 3 05/13/17 09:05 Pressure (ins/psv/peep) NA 05/13/17 09:05 Critical Value ACELIS 05/13/17 09:05 Sodium 151 mEq/L (136-145) H 05/13/17 04:27 Potassium 3.6 mEq/L (3.5-5.1) 05/13/17 04:27 Chloride 119 mEq/L (98-107) H 05/13/17 04:27 Carbon Dioxide 29.3 mEq/L (21.0-31.0) 05/13/17 04:27 Anion Gap 6.3 (7.0-16.0) L 05/13/17 04:27 BUN 50 mg/dL (7-25) H 05/13/17 04:27 Creatinine 1.1 mg/dL (0.7-1.3) 05/13/17 04:27 Est GFR ( Amer) > 60.0 ml/min (>90) 05/13/17 04:27 Est GFR (Non-Af Amer) > 60.0 ml/min 05/13/17 04:27 BUN/Creatinine Ratio 45.5 05/13/17 04:27 Glucose 137 mg/dL (70-105) H 05/13/17 04:27 POC Glucose 169 MG/DL (70 - 105) H 05/13/17 17:31 Hemoglobin A1c % 6.7 % (4.0-6.0) H 04/22/17 05:04 Whole Bld Lactic Acid 1.66 mmol/L (0.60-1.99) 05/12/17 04:40 Uric Acid 3.6 mg/dL (4.4-7.6) L 04/20/17 07:00 Calcium 10.2 mg/dL (8.6-10.3) 05/13/17 04:27 Phosphorus 4.7 mg/dL (2.5-5.0) 05/13/17 04:27 Magnesium 2.0 mg/dL (1.9-2.7) 05/13/17 04:27 Total Bilirubin 0.5 mg/dL (0.3-1.0) 05/13/17 04:27 Direct Bilirubin 0.13 mg/dL (0.0-0.2) 05/13/17 04:27 AST 50 U/L (13-39) H 05/13/17 04:27 ALT 22 U/L (7-52) 05/13/17 04:27 Alkaline Phosphatase 145 U/L (34-104) H 05/13/17 04:27 Ammonia 45 umol/L (16-53) 05/12/17 04:40 Creatine Kinase 136 U/L (30-223) 04/14/17 14:55 Troponin I 0.01 ng/mL (0.01-0.05) 04/22/17 05:04 C-Reactive Protein 23.6 mg/dL (0.0-0.9) H 05/07/17 04:45 B-Natriuretic Peptide 20.7 pg/mL (5.0-100.0) 05/13/17 04:27 Total Protein 6.4 gm/dL (6.0-8.3) 05/13/17 04:27 Albumin 1.9 gm/dL (4.2-5.5) L 05/13/17 04:27 Globulin 4.5 gm/dL 05/13/17 04:27 Albumin/Globulin Ratio 0.4 (1.0-1.8) L 05/13/17 04:27 Prealbumin 10 mg/dL (10-36) 05/08/17 05:00 Triglycerides 318 mg/dL (<150) H 05/12/17 04:40 Cholesterol 91 mg/dL (<200) 05/12/17 04:40 LDL Cholesterol Direct 38 mg/dL (75-193) L 04/14/17 14:55 HDL Cholesterol 13 mg/dL (23-92) L 04/14/17 14:55 Amylase 53 U/L (29-103) 05/09/17 06:00 Lipase 85 U/L (11-82) H 05/09/17 06:00 Urine Source [place] 05/03/17 13:38 Urine Color YELLOW 05/03/17 13:38 Urine Clarity TURBID (CLEAR) 05/03/17 13:38 Urine pH 7.5 05/03/17 13:38 Ur Specific [place] 1.010 (1.005-1.030) 05/03/17 13:38 Urine Protein NEGATIVE mg/dL (NEGATIVE) 05/03/17 13:38 Urine Glucose (UA) NEGATIVE mg/dL (NEGATIVE) 05/03/17 13:38 Urine Ketones NEGATIVE mg/dL (NEGATIVE) 05/03/17 13:38 Urine Blood MODERATE (NEGATIVE) H 05/03/17 13:38 Urine Nitrate NEGATIVE (NEGATIVE) 05/03/17 13:38 Urine Bilirubin NEGATIVE (NEGATIVE) 05/03/17 13:38 Urine Urobilinogen 0.2 E.U./dL (0.2 - 1.0) 05/03/17 13:38 Ur Leukocyte Esterase TRACE (NEGATIVE) H 05/03/17 13:38 Urine RBC 50-100 /hpf (0-5) H 05/03/17 13:38 Urine WBC 6-10 /hpf (0-5) H 05/03/17 13:38 Ur Epithelial Cells FEW /lpf (FEW) 05/03/17 13:38 Amorphous Sediment MANY URATES (NONE SEEN) 04/14/17 15:05 Urine Bacteria FEW /hpf (NONE SEEN) 05/03/17 13:38 Vancomycin Trough 13.5 ug/mL (10-20) 04/19/17 19:20 Helicobacter pylori Ab NEGATIVE (NEGATIVE) 05/04/17 10:05 Blood Type O POSITIVE 05/02/17 07:12 Antibody Screen NEGATIVE 05/02/17 07:12 Crossmatch See Detail 05/02/17 07:12 - Physical Exam Vitals and I&O: Vital Signs Temp 96.9 F 05/13/17 19:00 Pulse 107 05/13/17 19:15 Resp 32 05/13/17 19:00 BP 111/64 05/13/17 19:00 Pulse Ox 100 05/13/17 19:15 Intake & Output 05/13/17 05/13/17 05/14/17 06:59 18:59 06:59 Intake Total 2500 3765 100 Output Total 2565 2590 200 Balance -65 1175 -100 Weight (lbs) 93.213 kg 99.478 kg 99.478 kg Intake: Intake, IV Amount 1300 2565 100 D5-0.45NS 1,000 ml @ 40 1000 mls/hr IV .Q24H [facility]AN Rx#: [id number] Fluconazole 200mg/100mL 100 200 mg In 100 ml @ 100 mls/hr IV Q24HR [facility]AN Rx#: [id number] Meropenem 1 gm In Sodium 200 100 100 Chloride 0.9% 100 ml @ 100 mls/hr IV Q8H [facility] Rx# :[id number] Multivitamin Inj 10 ml In 2265 Dextrose 70% 1,740 ml In Amino Acids 10% 500 ml In Intralipids 20% 150 ml @ 100 mls/hr IV .Q24H [facility]AN Rx#:[id number] Tigecycline 50 mg In 100 100 Sodium Chloride 0.9% 100 ml @ 100 mls/hr IV Q12H [facility]AN Rx#:[id number] TPN/PPN 1200 1200 Output: Gastric Drainage 75 200 200 Drainage 40 40 Medial Abdomen 40 40 Urine 2450 2350 Stool 0 Active Medications: Current Medications Acetaminophen (Tylenol 650mg/20.3ml Suspension) 650 mg NG Q6H PRN PRN Reason: FEVER/PAIN Stop: 06/21/17 17:45 Last Admin: 05/13/17 06:43 Dose: 650 mg Albuterol/Ipratropium (Duoneb Neb) 3 ml HHN Q4HRT [facility] Stop: 06/15/17 14:59 Last Admin: 05/13/17 19:14 Dose: 3 ml Amiodarone HCl (Cordarone) 200 mg NG BID [facility]AN Stop: 06/24/17 23:14 Last Admin: 05/13/17 17:42 Dose: Not Given Budesonide (Pulmicort) 0.5 mg HHN BIDRT [facility] Stop: 06/15/17 18:59 Last Admin: 05/13/17 19:14 Dose: 0.5 mg Chlorhexidine Gluconate (Peridex) 15 ml MM 0800,2000 [facility] Stop: 06/30/17 19:59 Last Admin: 05/13/17 08:25 Dose: 15 ml Enalaprilat (Vasotec) 2.5 mg IVP Q4HR PRN PRN Reason: SBP>150 Stop: 07/06/17 15:59 Famotidine (Pepcid) 20 mg IVP Q6HR [facility] Stop: 07/06/17 11:59 Last Admin: 05/13/17 17:27 Dose: 20 mg Furosemide (Lasix) 40 mg IVP BID [facility] Stop: 07/12/17 16:59 Last Admin: 05/13/17 17:37 Dose: Not Given Multivitamins/Minerals 10 ml/Dextrose/ Amino Acids/Electrolytes/ Fat Emulsion Intravenous 2,400 mls @ 100 mls/hr IV .Q24H [facility] Stop: 06/23/17 15:59 Last Admin: 05/13/17 15:59 Dose: 100 mls/hr Dextrose/Sodium Chloride (D5-0.45ns) 1,000 mls @ 40 mls/hr IV .Q24H [facility] Stop: 06/23/17 15:59 Last Admin: 05/13/17 04:37 Dose: 40 mls/hr Norepinephrine Bitartrate 4 mg (/ Dextrose) 254 mls @ 0 mls/hr IV TITR PRN; Protocol; 0 MCG/MIN PRN Reason: BP MAINTENANCE (PER PROTOCOL) Stop: 06/30/17 09:25 Last Titration: 05/02/17 07:00 Dose: Infused Meropenem 1 gm/ Sodium (Chloride) 100 mls @ 100 mls/hr IV Q8H [facility] Stop: 06/30/17 11:14 Last Infusion: 05/13/17 19:15 Dose: Infused Tigecycline 50 mg/ Sodium (Chloride) 100 mls @ 100 mls/hr IV Q12H [facility] Stop: 07/05/17 21:59 Last Infusion: 05/13/17 10:25 Dose: Infused Diltiazem HCl 125 mg/ Dextrose 125 mls @ 10 mls/hr IV TITR ARIAN; 10 MG/HR PRN Reason: Protocol Stop: 07/06/17 11:14 Last Titration: 05/11/17 18:00 Dose: 0 mg/hr, 0 mls/hr Insulin Aspart (Novolog Insulin Sliding Scale) 0 units SUBQ Q6HR [facility]AN PRN Reason: Protocol Stop: 06/16/17 17:59 Last Admin: 05/13/17 18:56 Dose: 2 units Metoclopramide HCl (Reglan) 10 mg IVP Q8HR [facility] Stop: 07/06/17 20:59 Last Admin: 05/13/17 13:08 Dose: 10 mg Metoprolol Tartrate (Lopressor) 25 mg PO BID [facility] Stop: 06/26/17 08:59 Last Admin: 05/13/17 17:38 Dose: Not Given Mineral Oil (Mineral Oil 30 Ml) 30 ml NG DAILY [facility] Stop: 07/04/17 12:29 Last Admin: 05/13/17 09:35 Dose: Not Given Miscellaneous (Probiotic Screen) 1 ea MC PRN PRN PRN Reason: PROTOCOL Stop: 06/14/17 09:39 Miscellaneous (Tpn Per Pharmacy) 1 ea MC PRN PRN PRN Reason: PROTOCOL Stop: 06/16/17 12:28 Miscellaneous (Vte Chemical Prophylaxis Screen/ Admission) 1 ea MC PRN PRN PRN Reason: PROTOCOL Stop: 07/01/17 14:44 Morphine Sulfate (Morphine) 2 mg IVP Q4H PRN PRN Reason: PAIN Stop: 07/11/17 16:49 Last Admin: 05/13/17 13:05 Dose: 2 mg Ondansetron HCl (Zofran) 4 mg IVP Q6H PRN PRN Reason: Nausea / Vomiting Stop: 06/13/17 20:08 Last Admin: 05/09/17 12:15 Dose: 4 mg Pantoprazole Sodium (Protonix) 40 mg IVP BID [facility] Stop: 07/01/17 10:14 Last Admin: 05/13/17 17:42 Dose: Not Given General: Other (sedated and intubated.) HEENT: Atraumatic, PERRLA, EOMI, Mucous membr. moist/pink, Other (oral endotracheal tube,NG tube+) Neck: Supple, +2 carotid pulse wo bruit Cardiovascular: Regular rate, Normal S1, Normal S2 Lungs: Other (diffuse rhonchi.) Abdomen: Soft, Other ( wound VAC anterior open abdominal wall wound. L colostomy retracted but still functional w/ stool output.) Extremities: Edema, Other (no edema and cyanosis.) Neurological: Reflexes 2+, Other (Patient is intubated and sedated) Psych/Mental Status: Other (Sedated) - Procedures Procedures: Procedures Procedure Code Date BYPASS SIGMOID COLON TO CUTANEOUS, OPEN APPROACH [id number] 04/14/17 INSERT EMERGENCY AIRWAY 29399 04/14/17 INSERTION OF ENDOTRACHEAL AIRWAY INTO TRACHEA, VIA OPENING [id number] 04/14/17 PARTIAL REMOVAL OF COLON 20720 04/14/17 RESECTION OF SIGMOID COLON, OPEN APPROACH [id number] 04/14/17 RESPIRATORY VENTILATION, 24-96 CONSECUTIVE HOURS [id number] 04/14/17 VENT MGMT INPAT INIT DAY 80560 04/14/17 VENT MGMT INPAT SUBQ DAY 45122 04/14/17 Assessment/Plan - Problem List Patient Problems: All Active Problems Abscess of sigmoid colon due to diverticulitis (Acute) K57.20 Diverticulitis of sigmoid colon (Acute) K57.32 Obesity (Acute) E66.9 Perforation of sigmoid colon due to diverticulitis (Acute) K57.20 Peritonitis (acute) generalized (Acute) K65.0 - Assessment Assessment: Current Active Problems Problem Status Onset Abscess of sigmoid colon due to diverticulitis Acute Diverticulitis of sigmoid colon Acute Obesity Acute Perforation of sigmoid colon due to diverticulitis Acute Peritonitis (acute) generalized Acute Perforated diverticulitis status post expiratory laparotomy and colostomy placement. Postoperative respiratory failure on vent. Obesity. Upper GI bleed. Suspect developing ARDS. Polymicrobial peritonitis due to perforation.. Asthma. SVT currently on Cardizem drip Electrolyte imbalance. SEKOU . Encephalopathy due to metabolic and infectious etio. Open surgical wound with wound VAC. Altered mental status secondary to metabolic and infectious encephalopathy. Postop anemia. - Plan Plan: ICU status. Vent support. Nebulizer treatment. Pulmonary toilet. IV antibiotics as per ID. TPN. Discussed with bulb planter agreed with the tracheostomy. Needs PEG. Rate control with cardizem drip. Blood pressure control Wound care with wound VAC Surgical follow-up ID follow-up Cardiology follow-up Pulmonary follow-up ICU care. IV PPI or H2 tl. Monitor lab. Guarded prognosis. Chronic management of his medical illnesses. Care plan discussed with RN. Nutritional Asmnt/Malnutr-PDOC - Dietary Evaluation Malnutrition Findings (Please click <Entered> for more info): Nutritional Asmnt/Malnutrition Start: 04/19/17 14: 21 Text: Status: Complete Freq: Document 04/19/17 14:21 GSUN (Rec: 04/19/17 14:58 [id number]) Nutritional Asmnt/Malnutrition Patient General Information Nutritional Screening Moderate Risk Screening Diagnosis Sepsis, diverticulitis, peritonitis Pertinent Medical Hx/Surgical Hx Asthma, diverticulosis Subjective Information 56 year old male frome home. Pt was restless, moving extremities during visit. 04/14 : sigmoid colectomy, end colostomy, abscess drainage, diffuse peritontis. 04/16: pt started PPN. 04/17: central line and started on TPN. Spoke to family at bedside, explained parenteral nutrition , family undersoto and has no further question at this time. Weight discrepancies noted in EMR, family does not know UBW , estimated nutritional needs based Current Diet Order/ Nutrition Support TPN D10% AA4.25% at 90ml/hr with IL20% 150ml, providing 1401.6kcal Pertinent Medications Dilaudid, Novolog, Culturelle, Magnesium Sulfate, Vancomycin , TPN, Morphine, Multivitamins , Zofran, Protonix, Nacl0.9% Pertinent Labs 04/14: triglycerides 106, total bilirubin 1.1H, glucose 116H 04/17: magnesium 2.5, phsophorus 3.2 04/19: magnesium 1.8L, phosphorus 2.4L, BUN 28H, creatinine 1.3, glucose 154H, total bilirubin 1.1H, triglycerides 238H Nutritional Hx/Data Height 1.7 m Height (Calculated Centimeters) 170.2 Current Weight (lbs) 95.254 kg Weight (Calculated Kilograms) 95.3 Weight (Calculated Grams) 31840.4 [place] Body Weight 148 Weight Status Overweight GI Symptoms Skin Integrity/Comment: [place] 14. Facial non-pitting 1+, bilateral hands pitting 1+ Estimated Nutritional Goals Calories/Kcals/Kg IBW 148/67.3kg Kcals Calculated 2018-2356kcal (30-35kcal/kg) Protein Calculated 101-135g (1.5-2g/kg) Fluid: ml Per MD Nutritional Problem 1. Problem Problem Altered GI function related to Etiology abscess and perforation of sigmoid colon due to diverticulitis aeb Signs/Symptoms: post-operative, on TPN Intervention/Recommendation Comments 1. Recommend TPN D15% AA5.5% at 100ml/hr with IL20% 150ml, providing 2400ml total volume, 2052kcal, 132g protein, meeting 100% of estimated nutritional needs. Carb load 2 .6mg/kg/min (using 210lb adm weight). 2. Monitor for possible refeeding syndrome, 04/18: phsophorus 2.1L, 04/19: magnesium 1.9. 3. Monitor triglycerides, total bilirubin, glucose, renal labs. Expected Outcomes/Goals Expected Outcomes/Goals 1. Pt to meet 100% of estimated nutritional needs on TPN.
--- NOTE | 2017-05-13 21:43 | General Progress Note ---
Subjective - Review of Systems Service Date: 05/13/17 Subjective: encephalopathy, obtunded, nonverbal Objective - Results Result Diagrams: 05/13/17 04:27 05/13/17 04:27 Recent Labs: Laboratory Last Values WBC 10.3 Th/cmm (4.8-10.8) 05/13/17 04:27 RBC 3.45 Mil/cmm (4.30-5.70) L 05/13/17 04:27 Hgb 9.2 gm/dL (13.2-17.3) L 05/13/17 04:27 Hct 28.2 % (39.0-49.0) L 05/13/17 04:27 MCV 81.7 fl (80-99) 05/13/17 04:27 MCH 26.6 pg (26.0-30.0) 05/13/17 04:27 MCHC Differential 32.6 pg (28.0-36.0) 05/13/17 04:27 RDW 16.6 % (11.5-20.0) 05/13/17 04:27 Plt Count 297 Th/cmm (150-400) 05/13/17 04:27 MPV 8.0 fl 05/13/17 04:27 Neutrophils % 56.1 % (40.0-80.0) 05/13/17 04:27 Band Neutrophils % 4 % (0-10) 05/02/17 05:15 Lymphocytes % 19.3 % (20.0-50.0) L 05/13/17 04:27 Monocytes % 9.2 % (2.0-10.0) 05/13/17 04:27 Eosinophils % 14.9 % (0.0-5.0) H 05/13/17 04:27 Basophils % 0.5 % (0.0-2.0) 05/13/17 04:27 Neutrophils (Manual) 68 % (40-80) 05/02/17 05:15 Lymphocytes 14 % (20-50) L 05/02/17 05:15 Monocytes 8 % (2-10) 05/02/17 05:15 Eosinophils 6 % (0-5) H 05/02/17 05:15 Metamyelocytes 1 % (0-0) H 04/22/17 05:04 Platelet Estimate ADEQUATE (NORMAL) 05/02/17 05:15 Platelet Morphology NORMAL (NORMAL) 05/02/17 05:15 Anisocytosis 1+ 04/28/17 06:08 Microcytosis 1+ 05/02/17 05:15 RBC Morph Micro Appear ABNORMAL (NORMAL) 05/02/17 05:15 ESR > 140 mm/hr (0-20) H 04/20/17 07:00 PT 11.9 SECONDS (9.5-11.5) H 04/24/17 21:19 INR 1.13 (0.5-1.4) 04/24/17 21:19 PTT (Actin FS) 27.6 SECONDS (26.0-38.0) 04/24/17 21:19 Specimen Source Arterial 05/13/17 09:05 Sample Site Right Radial 05/13/17 09:05 pH 7.41 (7.35-7.45) 05/13/17 09:05 pCO2 48.0 mmHg (35.0-45.0) H 05/13/17 09:05 pO2 104.0 mmHg (80.0-100.0) H 05/13/17 09:05 HCO3 28.7 mEq/L (20.0-26.0) H 05/13/17 09:05 Base Excess 4.8 mEq/L (-3.0-3.0) H 05/13/17 09:05 O2 Saturation 98.0 % (92.0-100.0) 05/13/17 09:05 Chau Test Positive 05/13/17 09:05 Vent Rate 16 05/13/17 09:05 Inspired O2 30 05/13/17 09:05 Tidal Volume 450 05/13/17 09:05 PEEP 3 05/13/17 09:05 Pressure (ins/psv/peep) NA 05/13/17 09:05 Critical Value ACELIS 05/13/17 09:05 Sodium 151 mEq/L (136-145) H 05/13/17 04:27 Potassium 3.6 mEq/L (3.5-5.1) 05/13/17 04:27 Chloride 119 mEq/L (98-107) H 05/13/17 04:27 Carbon Dioxide 29.3 mEq/L (21.0-31.0) 05/13/17 04:27 Anion Gap 6.3 (7.0-16.0) L 05/13/17 04:27 BUN 50 mg/dL (7-25) H 05/13/17 04:27 Creatinine 1.1 mg/dL (0.7-1.3) 05/13/17 04:27 Est GFR ( Amer) > 60.0 ml/min (>90) 05/13/17 04:27 Est GFR (Non-Af Amer) > 60.0 ml/min 05/13/17 04:27 BUN/Creatinine Ratio 45.5 05/13/17 04:27 Glucose 137 mg/dL (70-105) H 05/13/17 04:27 POC Glucose 169 MG/DL (70 - 105) H 05/13/17 17:31 Hemoglobin A1c % 6.7 % (4.0-6.0) H 04/22/17 05:04 Whole Bld Lactic Acid 1.66 mmol/L (0.60-1.99) 05/12/17 04:40 Uric Acid 3.6 mg/dL (4.4-7.6) L 04/20/17 07:00 Calcium 10.2 mg/dL (8.6-10.3) 05/13/17 04:27 Phosphorus 4.7 mg/dL (2.5-5.0) 05/13/17 04:27 Magnesium 2.0 mg/dL (1.9-2.7) 05/13/17 04:27 Total Bilirubin 0.5 mg/dL (0.3-1.0) 05/13/17 04:27 Direct Bilirubin 0.13 mg/dL (0.0-0.2) 05/13/17 04:27 AST 50 U/L (13-39) H 05/13/17 04:27 ALT 22 U/L (7-52) 05/13/17 04:27 Alkaline Phosphatase 145 U/L (34-104) H 05/13/17 04:27 Ammonia 45 umol/L (16-53) 05/12/17 04:40 Creatine Kinase 136 U/L (30-223) 04/14/17 14:55 Troponin I 0.01 ng/mL (0.01-0.05) 04/22/17 05:04 C-Reactive Protein 23.6 mg/dL (0.0-0.9) H 05/07/17 04:45 B-Natriuretic Peptide 20.7 pg/mL (5.0-100.0) 05/13/17 04:27 Total Protein 6.4 gm/dL (6.0-8.3) 05/13/17 04:27 Albumin 1.9 gm/dL (4.2-5.5) L 05/13/17 04:27 Globulin 4.5 gm/dL 05/13/17 04:27 Albumin/Globulin Ratio 0.4 (1.0-1.8) L 05/13/17 04:27 Prealbumin 10 mg/dL (10-36) 05/08/17 05:00 Triglycerides 318 mg/dL (<150) H 05/12/17 04:40 Cholesterol 91 mg/dL (<200) 05/12/17 04:40 LDL Cholesterol Direct 38 mg/dL (75-193) L 04/14/17 14:55 HDL Cholesterol 13 mg/dL (23-92) L 04/14/17 14:55 Amylase 53 U/L (29-103) 05/09/17 06:00 Lipase 85 U/L (11-82) H 05/09/17 06:00 Urine Source SEN PORT 05/03/17 13:38 Urine Color YELLOW 05/03/17 13:38 Urine Clarity TURBID (CLEAR) 05/03/17 13:38 Urine pH 7.5 05/03/17 13:38 Ur Specific [place] 1.010 (1.005-1.030) 05/03/17 13:38 Urine Protein NEGATIVE mg/dL (NEGATIVE) 05/03/17 13:38 Urine Glucose (UA) NEGATIVE mg/dL (NEGATIVE) 05/03/17 13:38 Urine Ketones NEGATIVE mg/dL (NEGATIVE) 05/03/17 13:38 Urine Blood MODERATE (NEGATIVE) H 05/03/17 13:38 Urine Nitrate NEGATIVE (NEGATIVE) 05/03/17 13:38 Urine Bilirubin NEGATIVE (NEGATIVE) 05/03/17 13:38 Urine Urobilinogen 0.2 E.U./dL (0.2 - 1.0) 05/03/17 13:38 Ur Leukocyte Esterase TRACE (NEGATIVE) H 05/03/17 13:38 Urine RBC 50-100 /hpf (0-5) H 05/03/17 13:38 Urine WBC 6-10 /hpf (0-5) H 05/03/17 13:38 Ur Epithelial Cells FEW /lpf (FEW) 05/03/17 13:38 Amorphous Sediment MANY URATES (NONE SEEN) 04/14/17 15:05 Urine Bacteria FEW /hpf (NONE SEEN) 05/03/17 13:38 Vancomycin Trough 13.5 ug/mL (10-20) 04/19/17 19:20 Helicobacter pylori Ab NEGATIVE (NEGATIVE) 05/04/17 10:05 Blood Type O POSITIVE 05/02/17 07:12 Antibody Screen NEGATIVE 05/02/17 07:12 Crossmatch See Detail 05/02/17 07:12 - Physical Exam Vitals and I&O: Vital Signs Temp 96.9 F 05/13/17 19:00 Pulse 114 05/13/17 21:14 Resp 32 05/13/17 19:00 BP 111/68 05/13/17 21:16 Pulse Ox 100 05/13/17 21:14 Intake & Output 05/13/17 05/13/17 05/14/17 06:59 18:59 06:59 Intake Total 2500 3765 100 Output Total 2565 2590 200 Balance -65 1175 -100 Weight (lbs) 93.213 kg 99.478 kg 99.478 kg Intake: Intake, IV Amount 1300 2565 100 D5-0.45NS 1,000 ml @ 40 1000 mls/hr IV .Q24H ARIAN Rx#: [id number] Fluconazole 200mg/100mL 100 200 mg In 100 ml @ 100 mls/hr IV Q24HR ARIAN Rx#: [id number] Meropenem 1 gm In Sodium 200 100 100 Chloride 0.9% 100 ml @ 100 mls/hr IV Q8H [facility]AN Rx# :[id number] Multivitamin Inj 10 ml In 2265 Dextrose 70% 1,740 ml In Amino Acids 10% 500 ml In Intralipids 20% 150 ml @ 100 mls/hr IV .Q24H ARIAN Rx#:[id number] Tigecycline 50 mg In 100 100 Sodium Chloride 0.9% 100 ml @ 100 mls/hr IV Q12H [facility]AN Rx#:[id number] TPN/PPN 1200 1200 Output: Gastric Drainage 75 200 200 Drainage 40 40 Medial Abdomen 40 40 Urine 2450 2350 Stool 0 Active Medications: Current Medications Acetaminophen (Tylenol 650mg/20.3ml Suspension) 650 mg NG Q6H PRN PRN Reason: FEVER/PAIN Stop: 06/21/17 17:45 Last Admin: 05/13/17 06:43 Dose: 650 mg Albuterol/Ipratropium (Duoneb Neb) 3 ml HHN Q4HRT [facility] Stop: 06/15/17 14:59 Last Admin: 05/13/17 19:14 Dose: 3 ml Amiodarone HCl (Cordarone) 200 mg NG BID ARIAN Stop: 06/24/17 23:14 Last Admin: 05/13/17 17:42 Dose: Not Given Budesonide (Pulmicort) 0.5 mg HHN BIDRT [facility] Stop: 06/15/17 18:59 Last Admin: 05/13/17 19:14 Dose: 0.5 mg Chlorhexidine Gluconate (Peridex) 15 ml MM 0800,2000 [facility] Stop: 06/30/17 19:59 Last Admin: 05/13/17 20:30 Dose: 15 ml Enalaprilat (Vasotec) 2.5 mg IVP Q4HR PRN PRN Reason: SBP>150 Stop: 07/06/17 15:59 Famotidine (Pepcid) 20 mg IVP Q6HR [facility] Stop: 07/06/17 11:59 Last Admin: 05/13/17 17:27 Dose: 20 mg Furosemide (Lasix) 40 mg IVP BID [facility] Stop: 07/12/17 16:59 Last Admin: 05/13/17 21:16 Dose: 40 mg Multivitamins/Minerals 10 ml/Dextrose/ Amino Acids/Electrolytes/ Fat Emulsion Intravenous 2,400 mls @ 100 mls/hr IV .Q24H [facility] Stop: 06/23/17 15:59 Last Admin: 05/13/17 15:59 Dose: 100 mls/hr Dextrose/Sodium Chloride (D5-0.45ns) 1,000 mls @ 40 mls/hr IV .Q24H [facility] Stop: 06/23/17 15:59 Last Admin: 05/13/17 04:37 Dose: 40 mls/hr Norepinephrine Bitartrate 4 mg (/ Dextrose) 254 mls @ 0 mls/hr IV TITR PRN; Protocol; 0 MCG/MIN PRN Reason: BP MAINTENANCE (PER PROTOCOL) Stop: 06/30/17 09:25 Last Titration: 05/02/17 07:00 Dose: Infused Meropenem 1 gm/ Sodium (Chloride) 100 mls @ 100 mls/hr IV Q8H [facility] Stop: 06/30/17 11:14 Last Infusion: 05/13/17 19:15 Dose: Infused Tigecycline 50 mg/ Sodium (Chloride) 100 mls @ 100 mls/hr IV Q12H [facility] Stop: 07/05/17 21:59 Last Admin: 05/13/17 21:05 Dose: 100 mls/hr Diltiazem HCl 125 mg/ Dextrose 125 mls @ 10 mls/hr IV TITR ARIAN; 10 MG/HR PRN Reason: Protocol Stop: 07/06/17 11:14 Last Titration: 05/11/17 18:00 Dose: 0 mg/hr, 0 mls/hr Insulin Aspart (Novolog Insulin Sliding Scale) 0 units SUBQ Q6HR [facility]AN PRN Reason: Protocol Stop: 06/16/17 17:59 Last Admin: 05/13/17 18:56 Dose: 2 units Metoclopramide HCl (Reglan) 10 mg IVP Q8HR [facility] Stop: 07/06/17 20:59 Last Admin: 05/13/17 20:57 Dose: 10 mg Metoprolol Tartrate (Lopressor) 25 mg PO BID [facility] Stop: 06/26/17 08:59 Last Admin: 05/13/17 17:38 Dose: Not Given Mineral Oil (Mineral Oil 30 Ml) 30 ml NG DAILY [facility] Stop: 07/04/17 12:29 Last Admin: 05/13/17 09:35 Dose: Not Given Miscellaneous (Probiotic Screen) 1 ea MC PRN PRN PRN Reason: PROTOCOL Stop: 06/14/17 09:39 Miscellaneous (Tpn Per Pharmacy) 1 ea MC PRN PRN PRN Reason: PROTOCOL Stop: 06/16/17 12:28 Miscellaneous (Vte Chemical Prophylaxis Screen/ Admission) 1 ea MC PRN PRN PRN Reason: PROTOCOL Stop: 07/01/17 14:44 Morphine Sulfate (Morphine) 2 mg IVP Q4H PRN PRN Reason: PAIN Stop: 07/11/17 16:49 Last Admin: 05/13/17 13:05 Dose: 2 mg Ondansetron HCl (Zofran) 4 mg IVP Q6H PRN PRN Reason: Nausea / Vomiting Stop: 06/13/17 20:08 Last Admin: 05/09/17 12:15 Dose: 4 mg Pantoprazole Sodium (Protonix) 40 mg IVP BID [facility]AN Stop: 07/01/17 10:14 Last Admin: 05/13/17 17:42 Dose: Not Given General: Other (sedated and intubated.) HEENT: Atraumatic, PERRLA, EOMI, Mucous membr. moist/pink, Other (oral endotracheal tube,NG tube+) Neck: Supple, +2 carotid pulse wo bruit Cardiovascular: Regular rate, Normal S1, Normal S2 Lungs: Other (diffuse rhonchi.) Abdomen: Soft, Other ( wound VAC anterior open abdominal wall wound. L colostomy retracted but still functional w/ stool output.) Extremities: Edema, Other (no edema and cyanosis.) Neurological: Reflexes 2+, Other (Patient is intubated and sedated) Psych/Mental Status: Other (Sedated) - Procedures Procedures: Procedures Procedure Code Date BYPASS SIGMOID COLON TO CUTANEOUS, OPEN APPROACH [id number] 04/14/17 INSERT EMERGENCY AIRWAY 78872 04/14/17 INSERTION OF ENDOTRACHEAL AIRWAY INTO TRACHEA, VIA OPENING [id number] 04/14/17 PARTIAL REMOVAL OF COLON 07000 04/14/17 RESECTION OF SIGMOID COLON, OPEN APPROACH [id number] 04/14/17 RESPIRATORY VENTILATION, 24-96 CONSECUTIVE HOURS [id number] 04/14/17 VENT MGMT INPAT INIT DAY 88600 04/14/17 VENT MGMT INPAT SUBQ DAY 09818 04/14/17 Assessment/Plan - Problem List Patient Problems: All Active Problems Abscess of sigmoid colon due to diverticulitis (Acute) K57.20 Diverticulitis of sigmoid colon (Acute) K57.32 Obesity (Acute) E66.9 Perforation of sigmoid colon due to diverticulitis (Acute) K57.20 Peritonitis (acute) generalized (Acute) K65.0 - Assessment Assessment: POD#29; s/p ex lap, sigmoid colectomy, drainage of peritonitis, lysis adhesions , ROLANDO drain placement 04/14 icu status encephalopathic, confused, obtunded, intubated. continue IVfluids +TPN mild renal insufficiency, elevated BUN dvt prophylaxis Lovenox SQ colostomy end necrosed and sloughed, severely retracted, but functional w/ stool output..... poor candidate for revision of colostomy open abd wound, wound vac in place, changed q 3days, wound marge, still some yellow slough. continue iv abx. sen cath supportive care.... s/w family; guarded prognosis. off vasopressors. EGD 05/04 results noted by [facility]/GI peptic ulcer disease, NGT trauma multiple prior CT abd/pelvis....postop changes, no obvious drainable intra-abd abscess or collections tachycardia, normal WBC ok to give PO meds via NGT TF via NGT held, residuals high, NGT to suction moderate output [facility] is following recommended to family tracheostomy, EGD + PEG, change central line Dr. Bro feels pt is high risk for extubation.....no clear indication from pulm for trach CT abd/pelvis results noted, no obvious drainable abscess or collection, no free air. cardizem drip stopped continue wound vac to open abd wound. Nutritional Asmnt/Malnutr-PDOC - Dietary Evaluation Malnutrition Findings (Please click <Entered> for more info): Nutritional Asmnt/Malnutrition Start: 04/19/17 14: 21 Text: Status: Complete Freq: Document 04/19/17 14:21 GSUN (Rec: 04/19/17 14:58 [id number]) Nutritional Asmnt/Malnutrition Patient General Information Nutritional Screening Moderate Risk Screening Diagnosis Sepsis, diverticulitis, peritonitis Pertinent Medical Hx/Surgical Hx Asthma, diverticulosis Subjective Information 56 year old male frome home. Pt was restless, moving extremities during visit. 04/14 : sigmoid colectomy, end colostomy, abscess drainage, diffuse peritontis. 04/16: pt started PPN. 04/17: central line and started on TPN. Spoke to family at bedside, explained parenteral nutrition , family undersoto and has no further question at this time. Weight discrepancies noted in EMR, family does not know UBW , estimated nutritional needs based Current Diet Order/ Nutrition Support TPN D10% AA4.25% at 90ml/hr with IL20% 150ml, providing 1401.6kcal Pertinent Medications Dilaudid, Novolog, Culturelle, Magnesium Sulfate, Vancomycin , TPN, Morphine, Multivitamins , Zofran, Protonix, Nacl0.9% Pertinent Labs 04/14: triglycerides 106, total bilirubin 1.1H, glucose 116H 04/17: magnesium 2.5, phsophorus 3.2 04/19: magnesium 1.8L, phosphorus 2.4L, BUN 28H, creatinine 1.3, glucose 154H, total bilirubin 1.1H, triglycerides 238H Nutritional Hx/Data Height 1.7 m Height (Calculated Centimeters) 170.2 Current Weight (lbs) 95.254 kg Weight (Calculated Kilograms) 95.3 Weight (Calculated Grams) 60225.4 [place] Body Weight 148 Weight Status Overweight GI Symptoms Skin Integrity/Comment: [place] 14. Facial non-pitting 1+, bilateral hands pitting 1+ Estimated Nutritional Goals Calories/Kcals/Kg IBW 148/67.3kg Kcals Calculated 2019-2356kcal (30-35kcal/kg) Protein Calculated 101-135g (1.5-2g/kg) Fluid: ml Per MD Nutritional Problem 1. Problem Problem Altered GI function related to Etiology abscess and perforation of sigmoid colon due to diverticulitis aeb Signs/Symptoms: post-operative, on TPN Intervention/Recommendation Comments 1. Recommend TPN D15% AA5.5% at 100ml/hr with IL20% 150ml, providing 2400ml total volume, 2052kcal, 132g protein, meeting 100% of estimated nutritional needs. Carb load 2 .6mg/kg/min (using 210lb adm weight). 2. Monitor for possible refeeding syndrome, 04/18: phsophorus 2.1L, 04/19: magnesium 1.9. 3. Monitor triglycerides, total bilirubin, glucose, renal labs. Expected Outcomes/Goals Expected Outcomes/Goals 1. Pt to meet 100% of estimated nutritional needs on TPN.
[2017-05-14] MEDS: INSULIN ASPART SLIDING SCALE 100 UNITS/ML UNIT SUBQ SCH ×4 (00:23→18:47)
[2017-05-14] MEDS: Meropenem 1 GM in Sodium Chloride 0.9% 100 ML IV SCH ×3 (02:29→19:54)
[2017-05-14] MEDS: Morphine Sulfate 4 mg/mL 1mL Syr IVP PRN ×2 (03:04→18:29)
[2017-05-14] MEDS: Albuterol/Ipratropium Neb 3 ML AERS HHN SCH ×6 (03:13→22:59)
[2017-05-14] MEDS: Metoclopramide 5 mg/mL 2mL Vial IVP SCH ×3 (04:46→20:53)
[2017-05-14 05:22] LABS: % BASOPHILS 0.9 % (0.0-2.0); % EOSINOPHILS 14.8 % (0.0-5.0); % LYMPHOCYTES 22.1 % (20.0-50.0); % MONOCYTES 9.1 % (2.0-10.0); % NEUTROPHILS 53.1 % (40.0-80.0); HEMATOCRIT 28.6 % (39.0-49.0); HEMOGLOBIN 9.4 gm/dL (13.2-17.3); MEAN CELL VOLUME 81.3 fl (80-99); MEAN CORPUSCULAR HEMOGLOBIN 26.6 pg (26.0-30.0); MEAN CORPUSCULAR HGB CONC 32.8 pg (28.0-36.0); MEAN PLATELET VOLUME 8.4 fl; NEUTROPHILE ABSOLUTE 6.1 Th/cmm (1.8-8.0); PLATELET COUNT 301 Th/cmm (150-400); RED BLOOD COUNT 3.52 Mil/cmm (4.30-5.70); RED CELL DISTRIBUTION WIDTH 16.7 % (11.5-20.0); WHITE BLOOD COUNT 11.4 Th/cmm (4.8-10.8)
[2017-05-14 05:46] LABS: ALB/GLOB RATIO 0.4 (1.0-1.8); ALKALINE PHOSPHATASE 155 U/L (34-104); ANION GAP 7.1 (7.0-16.0); BILIRUBIN,TOTAL 0.4 mg/dL (0.3-1.0); BUN - UREA NITROGEN 62 mg/dL (7-25); BUN/CREATININE RATIO 41.3; CALCIUM SERUM 10.3 mg/dL (8.6-10.3); CARBON DIOXIDE 28.9 mEq/L (21.0-31.0); CHLORIDE 119 mEq/L (98-107); CREATININE - SERUM 1.5 mg/dL (0.7-1.3); GLUCOSE 149 mg/dL (70-105); PHOSPHOROUS 4.6 mg/dL (2.5-5.0); SGOT 56 U/L (13-39); SGPT/ALT 23 U/L (7-52); SODIUM SERUM 151 mEq/L (136-145)
[2017-05-14] MEDS: D5-0.45NS 1,000 ML IV SCH ×2 (06:57→08:00)
[2017-05-14] MEDS: Budesonide 0.5 Mg/2 mL Ud HHN SCH ×2 (07:04→18:56)
[2017-05-14] MEDS: Chlorhexidine Gluconate 0.12% 15mL Mouthwash MM SCH ×2 (08:50→19:55)
--- NOTE | 2017-05-14 08:55 | General Progress Note ---
Subjective - Review of Systems Subjective: Patient is seen and examined. Patient is on vent. Trying to following any commands. Patient is on IV Cardizem drip. Patient spiked temp. Objective - Results Result Diagrams: 05/14/17 04:27 05/14/17 04:27 Recent Labs: Laboratory Last Values WBC 11.4 Th/cmm (4.8-10.8) H 05/14/17 04:27 RBC 3.52 Mil/cmm (4.30-5.70) L 05/14/17 04:27 Hgb 9.4 gm/dL (13.2-17.3) L 05/14/17 04:27 Hct 28.6 % (39.0-49.0) L 05/14/17 04:27 MCV 81.3 fl (80-99) 05/14/17 04:27 MCH 26.6 pg (26.0-30.0) 05/14/17 04:27 MCHC Differential 32.8 pg (28.0-36.0) 05/14/17 04:27 RDW 16.7 % (11.5-20.0) 05/14/17 04:27 Plt Count 301 Th/cmm (150-400) 05/14/17 04:27 MPV 8.4 fl 05/14/17 04:27 Neutrophils % 53.1 % (40.0-80.0) 05/14/17 04:27 Band Neutrophils % 4 % (0-10) 05/02/17 05:15 Lymphocytes % 22.1 % (20.0-50.0) 05/14/17 04:27 Monocytes % 9.1 % (2.0-10.0) 05/14/17 04:27 Eosinophils % 14.8 % (0.0-5.0) H 05/14/17 04:27 Basophils % 0.9 % (0.0-2.0) 05/14/17 04:27 Neutrophils (Manual) 68 % (40-80) 05/02/17 05:15 Lymphocytes 14 % (20-50) L 05/02/17 05:15 Monocytes 8 % (2-10) 05/02/17 05:15 Eosinophils 6 % (0-5) H 05/02/17 05:15 Metamyelocytes 1 % (0-0) H 04/22/17 05:04 Platelet Estimate ADEQUATE (NORMAL) 05/02/17 05:15 Platelet Morphology NORMAL (NORMAL) 05/02/17 05:15 Anisocytosis 1+ 04/28/17 06:08 Microcytosis 1+ 05/02/17 05:15 RBC Morph Micro Appear ABNORMAL (NORMAL) 05/02/17 05:15 ESR > 140 mm/hr (0-20) H 04/20/17 07:00 PT 11.9 SECONDS (9.5-11.5) H 04/24/17 21:19 INR 1.13 (0.5-1.4) 04/24/17 21:19 PTT (Actin FS) 27.6 SECONDS (26.0-38.0) 04/24/17 21:19 Specimen Source Arterial 05/13/17 09:05 Sample Site Right Radial 05/13/17 09:05 pH 7.41 (7.35-7.45) 05/13/17 09:05 pCO2 48.0 mmHg (35.0-45.0) H 05/13/17 09:05 pO2 104.0 mmHg (80.0-100.0) H 05/13/17 09:05 HCO3 28.7 mEq/L (20.0-26.0) H 05/13/17 09:05 Base Excess 4.8 mEq/L (-3.0-3.0) H 05/13/17 09:05 O2 Saturation 98.0 % (92.0-100.0) 05/13/17 09:05 Chau Test Positive 05/13/17 09:05 Vent Rate 16 05/13/17 09:05 Inspired O2 30 05/13/17 09:05 Tidal Volume 450 05/13/17 09:05 PEEP 3 05/13/17 09:05 Pressure (ins/psv/peep) NA 05/13/17 09:05 Critical Value ACELIS 05/13/17 09:05 Sodium 151 mEq/L (136-145) H 05/14/17 04:27 Potassium 4.0 mEq/L (3.5-5.1) 05/14/17 04:27 Chloride 119 mEq/L (98-107) H 05/14/17 04:27 Carbon Dioxide 28.9 mEq/L (21.0-31.0) 05/14/17 04:27 Anion Gap 7.1 (7.0-16.0) 05/14/17 04:27 BUN 62 mg/dL (7-25) H 05/14/17 04:27 Creatinine 1.5 mg/dL (0.7-1.3) H 05/14/17 04:27 Est GFR ( Amer) > 60.0 ml/min (>90) 05/14/17 04:27 Est GFR (Non-Af Amer) 51.3 ml/min 05/14/17 04:27 BUN/Creatinine Ratio 41.3 05/14/17 04:27 Glucose 149 mg/dL (70-105) H 05/14/17 04:27 POC Glucose 169 MG/DL (70 - 105) H 05/13/17 17:31 Hemoglobin A1c % 6.7 % (4.0-6.0) H 04/22/17 05:04 Whole Bld Lactic Acid 1.66 mmol/L (0.60-1.99) 05/12/17 04:40 Uric Acid 3.6 mg/dL (4.4-7.6) L 04/20/17 07:00 Calcium 10.3 mg/dL (8.6-10.3) 05/14/17 04:27 Phosphorus 4.6 mg/dL (2.5-5.0) 05/14/17 04:27 Magnesium 2.0 mg/dL (1.9-2.7) 05/14/17 04:27 Total Bilirubin 0.4 mg/dL (0.3-1.0) 05/14/17 04:27 Direct Bilirubin 0.13 mg/dL (0.0-0.2) 05/13/17 04:27 AST 56 U/L (13-39) H 05/14/17 04:27 ALT 23 U/L (7-52) 05/14/17 04:27 Alkaline Phosphatase 155 U/L (34-104) H 05/14/17 04:27 Ammonia 45 umol/L (16-53) 05/12/17 04:40 Creatine Kinase 136 U/L (30-223) 04/14/17 14:55 Troponin I 0.01 ng/mL (0.01-0.05) 04/22/17 05:04 C-Reactive Protein 23.6 mg/dL (0.0-0.9) H 05/07/17 04:45 B-Natriuretic Peptide 20.7 pg/mL (5.0-100.0) 05/13/17 04:27 Total Protein 6.4 gm/dL (6.0-8.3) 05/14/17 04:27 Albumin 1.8 gm/dL (4.2-5.5) L 05/14/17 04:27 Globulin 4.6 gm/dL 05/14/17 04:27 Albumin/Globulin Ratio 0.4 (1.0-1.8) L 05/14/17 04:27 Prealbumin 10 mg/dL (10-36) 05/08/17 05:00 Triglycerides 318 mg/dL (<150) H 05/12/17 04:40 Cholesterol 91 mg/dL (<200) 05/12/17 04:40 LDL Cholesterol Direct 38 mg/dL (75-193) L 04/14/17 14:55 HDL Cholesterol 13 mg/dL (23-92) L 04/14/17 14:55 Amylase 53 U/L (29-103) 05/09/17 06:00 Lipase 85 U/L (11-82) H 05/09/17 06:00 Urine Source [place] 05/03/17 13:38 Urine Color YELLOW 05/03/17 13:38 Urine Clarity TURBID (CLEAR) 05/03/17 13:38 Urine pH 7.5 05/03/17 13:38 Ur Specific [place] 1.010 (1.005-1.030) 05/03/17 13:38 Urine Protein NEGATIVE mg/dL (NEGATIVE) 05/03/17 13:38 Urine Glucose (UA) NEGATIVE mg/dL (NEGATIVE) 05/03/17 13:38 Urine Ketones NEGATIVE mg/dL (NEGATIVE) 05/03/17 13:38 Urine Blood MODERATE (NEGATIVE) H 05/03/17 13:38 Urine Nitrate NEGATIVE (NEGATIVE) 05/03/17 13:38 Urine Bilirubin NEGATIVE (NEGATIVE) 05/03/17 13:38 Urine Urobilinogen 0.2 E.U./dL (0.2 - 1.0) 05/03/17 13:38 Ur Leukocyte Esterase TRACE (NEGATIVE) H 05/03/17 13:38 Urine RBC 50-100 /hpf (0-5) H 05/03/17 13:38 Urine WBC 6-10 /hpf (0-5) H 05/03/17 13:38 Ur Epithelial Cells FEW /lpf (FEW) 05/03/17 13:38 Amorphous Sediment MANY URATES (NONE SEEN) 04/14/17 15:05 Urine Bacteria FEW /hpf (NONE SEEN) 05/03/17 13:38 Vancomycin Trough 13.5 ug/mL (10-20) 04/19/17 19:20 Helicobacter pylori Ab NEGATIVE (NEGATIVE) 05/04/17 10:05 Blood Type O POSITIVE 05/02/17 07:12 Antibody Screen NEGATIVE 05/02/17 07:12 Crossmatch See Detail 05/02/17 07:12 - Physical Exam Vitals and I&O: Vital Signs Temp 100.4 F 05/14/17 04:00 Pulse 135 05/14/17 07:24 Resp 33 05/14/17 07:00 BP 98/47 05/14/17 07:00 Pulse Ox 100 05/14/17 07:24 Intake & Output 05/13/17 05/14/17 05/14/17 18:59 06:59 18:59 Intake Total 3765 2550 42 Output Total 2590 2125 Balance 1175 425 42 Weight (lbs) 99.478 kg 98.656 kg Intake: Intake, IV Amount 2565 1100 42 D5-0.45NS 1,000 ml @ 40 1000 42 mls/hr IV .Q24H [facility] Rx#: [id number] Fluconazole 200mg/100mL 100 200 mg In 100 ml @ 100 mls/hr IV Q24HR [facility]AN Rx#: [id number] Meropenem 1 gm In Sodium 100 100 Chloride 0.9% 100 ml @ 100 mls/hr IV Q8H [facility] Rx# :[id number] Multivitamin Inj 10 ml In 2265 Dextrose 70% 1,740 ml In Amino Acids 10% 500 ml In Intralipids 20% 150 ml @ 100 mls/hr IV .Q24H [facility]AN Rx#:[id number] Tigecycline 50 mg In 100 Sodium Chloride 0.9% 100 ml @ 100 mls/hr IV Q12H [facility] Rx#:[id number] Oral 0 TPN/PPN 1200 1000 Other 450 Output: Gastric Drainage 200 250 Drainage 40 25 Medial Abdomen 40 25 Urine 2350 1850 Stool 0 Active Medications: Current Medications Acetaminophen (Tylenol 650mg/20.3ml Suspension) 650 mg NG Q6H PRN PRN Reason: FEVER/PAIN Stop: 06/21/17 17:45 Last Admin: 05/14/17 01:25 Dose: 650 mg Albuterol/Ipratropium (Duoneb Neb) 3 ml HHN Q4HRT [facility] Stop: 06/15/17 14:59 Last Admin: 05/14/17 07:04 Dose: 3 ml Amiodarone HCl (Cordarone) 200 mg NG BID [facility] Stop: 06/24/17 23:14 Last Admin: 05/13/17 17:42 Dose: Not Given Budesonide (Pulmicort) 0.5 mg HHN BIDRT [facility] Stop: 06/15/17 18:59 Last Admin: 05/14/17 07:04 Dose: 0.5 mg Chlorhexidine Gluconate (Peridex) 15 ml MM 0800,1999 [facility] Stop: 06/30/17 19:59 Last Admin: 05/14/17 08:50 Dose: 15 ml Enalaprilat (Vasotec) 2.5 mg IVP Q4HR PRN PRN Reason: SBP>150 Stop: 07/06/17 15:59 Famotidine (Pepcid) 20 mg IVP Q6HR [facility] Stop: 07/06/17 11:59 Last Admin: 05/14/17 05:31 Dose: 20 mg Furosemide (Lasix) 40 mg IVP BID [facility] Stop: 07/12/17 16:59 Last Admin: 05/13/17 21:16 Dose: 40 mg Multivitamins/Minerals 10 ml/Dextrose/ Amino Acids/Electrolytes/ Fat Emulsion Intravenous 2,400 mls @ 100 mls/hr IV .Q24H [facility] Stop: 06/23/17 15:59 Last Admin: 05/13/17 15:59 Dose: 100 mls/hr Dextrose/Sodium Chloride (D5-0.45ns) 1,000 mls @ 40 mls/hr IV .Q24H [facility] Stop: 06/23/17 15:59 Last Admin: 05/14/17 08:00 Dose: 40 mls/hr Norepinephrine Bitartrate 4 mg (/ Dextrose) 254 mls @ 0 mls/hr IV TITR PRN; Protocol; 0 MCG/MIN PRN Reason: BP MAINTENANCE (PER PROTOCOL) Stop: 06/30/17 09:25 Last Titration: 05/02/17 07:00 Dose: Infused Meropenem 1 gm/ Sodium (Chloride) 100 mls @ 100 mls/hr IV Q8H [facility] Stop: 06/30/17 11:14 Last Admin: 05/14/17 02:29 Dose: 100 mls/hr Tigecycline 50 mg/ Sodium (Chloride) 100 mls @ 100 mls/hr IV Q12H [facility] Stop: 07/05/17 21:59 Last Admin: 05/13/17 21:05 Dose: 100 mls/hr Diltiazem HCl 125 mg/ Dextrose 125 mls @ 10 mls/hr IV TITR [facility]AN; 10 MG/HR PRN Reason: Protocol Stop: 07/06/17 11:14 Last Titration: 05/11/17 18:00 Dose: 0 mg/hr, 0 mls/hr Insulin Aspart (Novolog Insulin Sliding Scale) 0 units SUBQ Q6HR [facility] PRN Reason: Protocol Stop: 06/16/17 17:59 Last Admin: 05/14/17 06:05 Dose: Not Given Lorazepam (Ativan) 1 mg IVP Q4HR PRN; Protocol PRN Reason: Agitation Stop: 07/13/17 02:57 Metoclopramide HCl (Reglan) 10 mg IVP Q8HR [facility] Stop: 07/06/17 20:59 Last Admin: 05/14/17 04:46 Dose: 10 mg Metoprolol Tartrate (Lopressor) 25 mg PO BID [facility] Stop: 06/26/17 08:59 Last Admin: 05/13/17 17:38 Dose: Not Given Mineral Oil (Mineral Oil 30 Ml) 30 ml NG DAILY [facility] Stop: 07/04/17 12:29 Last Admin: 05/13/17 09:35 Dose: Not Given Miscellaneous (Probiotic Screen) 1 ea MC PRN PRN PRN Reason: PROTOCOL Stop: 06/14/17 09:39 Miscellaneous (Tpn Per Pharmacy) 1 ea MC PRN PRN PRN Reason: PROTOCOL Stop: 06/16/17 12:28 Miscellaneous (Vte Chemical Prophylaxis Screen/ Admission) 1 ea MC PRN PRN PRN Reason: PROTOCOL Stop: 07/01/17 14:44 Morphine Sulfate (Morphine) 2 mg IVP Q4H PRN PRN Reason: PAIN Stop: 07/11/17 16:49 Last Admin: 05/14/17 03:04 Dose: 2 mg Ondansetron HCl (Zofran) 4 mg IVP Q6H PRN PRN Reason: Nausea / Vomiting Stop: 06/13/17 20:08 Last Admin: 05/09/17 12:15 Dose: 4 mg Pantoprazole Sodium (Protonix) 40 mg IVP BID [facility] Stop: 07/01/17 10:14 Last Admin: 05/14/17 08:52 Dose: Not Given General: Other (sedated and intubated.) HEENT: Atraumatic, PERRLA, EOMI, Mucous membr. moist/pink, Other (oral endotracheal tube,NG tube+) Neck: Supple, +2 carotid pulse wo bruit Cardiovascular: Regular rate, Normal S1, Normal S2 Lungs: Other (diffuse rhonchi.) Abdomen: Soft, Other ( wound VAC anterior open abdominal wall wound. L colostomy retracted but still functional w/ stool output.) Extremities: Edema, Other (no edema and cyanosis.) Neurological: Reflexes 2+, Other (Patient is intubated and sedated) Psych/Mental Status: Other (Sedated) - Procedures Procedures: Procedures Procedure Code Date BYPASS SIGMOID COLON TO CUTANEOUS, OPEN APPROACH [id number] 04/14/17 INSERT EMERGENCY AIRWAY 40689 04/14/17 INSERTION OF ENDOTRACHEAL AIRWAY INTO TRACHEA, VIA OPENING [id number] 04/14/17 PARTIAL REMOVAL OF COLON 77322 04/14/17 RESECTION OF SIGMOID COLON, OPEN APPROACH [id number] 04/14/17 RESPIRATORY VENTILATION, 24-96 CONSECUTIVE HOURS [id number] 04/14/17 VENT MGMT INPAT INIT DAY 34315 04/14/17 VENT MGMT INPAT SUBQ DAY 66215 04/14/17 Assessment/Plan - Problem List Patient Problems: All Active Problems Abscess of sigmoid colon due to diverticulitis (Acute) K57.20 Diverticulitis of sigmoid colon (Acute) K57.32 Obesity (Acute) E66.9 Perforation of sigmoid colon due to diverticulitis (Acute) K57.20 Peritonitis (acute) generalized (Acute) K65.0 - Assessment Assessment: Current Active Problems Problem Status Onset Abscess of sigmoid colon due to diverticulitis Acute Diverticulitis of sigmoid colon Acute Obesity Acute Perforation of sigmoid colon due to diverticulitis Acute Peritonitis (acute) generalized Acute Perforated diverticulitis status post expiratory laparotomy and colostomy placement. Postoperative respiratory failure on vent. Obesity. New onset of fever. Upper GI bleed. Suspect developing ARDS. Polymicrobial peritonitis due to perforation.. Asthma. SVT currently on Cardizem drip Electrolyte imbalance. SEKOU . Encephalopathy due to metabolic and infectious etio. Open surgical wound with wound VAC. Altered mental status secondary to metabolic and infectious encephalopathy. Postop anemia. - Plan Plan: ICU status. Vent support. Nebulizer treatment. Pulmonary toilet. IV antibiotics as per ID. TPN. blood culture now and sputum gram stain C/S. Discussed with industrial renderer agreed with the tracheostomy. Needs PEG. Rate control with cardizem drip. Blood pressure control Wound care with wound VAC Surgical follow-up ID follow-up Cardiology follow-up Pulmonary follow-up ICU care. IV PPI or H2 tl. Monitor lab. Guarded prognosis. Chronic management of his medical illnesses. Care plan discussed with RN. Nutritional Asmnt/Malnutr-PDOC - Dietary Evaluation Malnutrition Findings (Please click <Entered> for more info): Nutritional Asmnt/Malnutrition Start: 04/19/17 14: 21 Text: Status: Complete Freq: Document 04/19/17 14:21 GSUN (Rec: 04/19/17 14:58 [id number]) Nutritional Asmnt/Malnutrition Patient General Information Nutritional Screening Moderate Risk Screening Diagnosis Sepsis, diverticulitis, peritonitis Pertinent Medical Hx/Surgical Hx Asthma, diverticulosis Subjective Information 56 year old male frome home. Pt was restless, moving extremities during visit. 04/14 : sigmoid colectomy, end colostomy, abscess drainage, diffuse peritontis. 04/16: pt started PPN. 04/17: central line and started on TPN. Spoke to family at bedside, explained parenteral nutrition , family undersoto and has no further question at this time. Weight discrepancies noted in EMR, family does not know UBW , estimated nutritional needs based Current Diet Order/ Nutrition Support TPN D10% AA4.25% at 90ml/hr with IL20% 150ml, providing 1401.6kcal Pertinent Medications Dilaudid, Novolog, Culturelle, Magnesium Sulfate, Vancomycin , TPN, Morphine, Multivitamins , Zofran, Protonix, Nacl0.9% Pertinent Labs 04/14: triglycerides 106, total bilirubin 1.1H, glucose 116H 04/17: magnesium 2.5, phsophorus 3.2 04/19: magnesium 1.8L, phosphorus 2.4L, BUN 28H, creatinine 1.3, glucose 154H, total bilirubin 1.1H, triglycerides 238H Nutritional Hx/Data Height 1.7 m Height (Calculated Centimeters) 170.2 Current Weight (lbs) 95.254 kg Weight (Calculated Kilograms) 95.3 Weight (Calculated Grams) 03807.4 [place] Body Weight 148 Weight Status Overweight GI Symptoms Skin Integrity/Comment: [place] 14. Facial non-pitting 1+, bilateral hands pitting 1+ Estimated Nutritional Goals Calories/Kcals/Kg IBW 148/67.3kg Kcals Calculated 2019-2356kcal (30-35kcal/kg) Protein Calculated 101-135g (1.5-2g/kg) Fluid: ml Per MD Nutritional Problem 1. Problem Problem Altered GI function related to Etiology abscess and perforation of sigmoid colon due to diverticulitis aeb Signs/Symptoms: post-operative, on TPN Intervention/Recommendation Comments 1. Recommend TPN D15% AA5.5% at 100ml/hr with IL20% 150ml, providing 2400ml total volume, 2052kcal, 132g protein, meeting 100% of estimated nutritional needs. Carb load 2 .6mg/kg/min (using 210lb adm weight). 2. Monitor for possible refeeding syndrome, 04/18: phsophorus 2.1L, 04/19: magnesium 1.9. 3. Monitor triglycerides, total bilirubin, glucose, renal labs. Expected Outcomes/Goals Expected Outcomes/Goals 1. Pt to meet 100% of estimated nutritional needs on TPN.
[2017-05-14] MEDS: Venelex 60gm Tube TP SCH (12:47)
--- NOTE | 2017-05-14 17:52 | General Progress Note ---
Subjective - Review of Systems Service Date: 05/14/17 Subjective: encephalopathy, obtunded, nonverbal Objective - Results Result Diagrams: 05/14/17 04:27 05/14/17 04:27 Recent Labs: Laboratory Last Values WBC 11.4 Th/cmm (4.8-10.8) H 05/14/17 04:27 RBC 3.52 Mil/cmm (4.30-5.70) L 05/14/17 04:27 Hgb 9.4 gm/dL (13.2-17.3) L 05/14/17 04:27 Hct 28.6 % (39.0-49.0) L 05/14/17 04:27 MCV 81.3 fl (80-99) 05/14/17 04:27 MCH 26.6 pg (26.0-30.0) 05/14/17 04:27 MCHC Differential 32.8 pg (28.0-36.0) 05/14/17 04:27 RDW 16.7 % (11.5-20.0) 05/14/17 04:27 Plt Count 301 Th/cmm (150-400) 05/14/17 04:27 MPV 8.4 fl 05/14/17 04:27 Neutrophils % 53.1 % (40.0-80.0) 05/14/17 04:27 Band Neutrophils % 4 % (0-10) 05/02/17 05:15 Lymphocytes % 22.1 % (20.0-50.0) 05/14/17 04:27 Monocytes % 9.1 % (2.0-10.0) 05/14/17 04:27 Eosinophils % 14.8 % (0.0-5.0) H 05/14/17 04:27 Basophils % 0.9 % (0.0-2.0) 05/14/17 04:27 Neutrophils (Manual) 68 % (40-80) 05/02/17 05:15 Lymphocytes 14 % (20-50) L 05/02/17 05:15 Monocytes 8 % (2-10) 05/02/17 05:15 Eosinophils 6 % (0-5) H 05/02/17 05:15 Metamyelocytes 1 % (0-0) H 04/22/17 05:04 Platelet Estimate ADEQUATE (NORMAL) 05/02/17 05:15 Platelet Morphology NORMAL (NORMAL) 05/02/17 05:15 Anisocytosis 1+ 04/28/17 06:08 Microcytosis 1+ 05/02/17 05:15 RBC Morph Micro Appear ABNORMAL (NORMAL) 05/02/17 05:15 ESR > 140 mm/hr (0-20) H 04/20/17 07:00 PT 11.9 SECONDS (9.5-11.5) H 04/24/17 21:19 INR 1.13 (0.5-1.4) 04/24/17 21:19 PTT (Actin FS) 27.6 SECONDS (26.0-38.0) 04/24/17 21:19 Specimen Source Arterial 05/13/17 09:05 Sample Site Right Radial 05/13/17 09:05 pH 7.41 (7.35-7.45) 05/13/17 09:05 pCO2 48.0 mmHg (35.0-45.0) H 05/13/17 09:05 pO2 104.0 mmHg (80.0-100.0) H 05/13/17 09:05 HCO3 28.7 mEq/L (20.0-26.0) H 05/13/17 09:05 Base Excess 4.8 mEq/L (-3.0-3.0) H 05/13/17 09:05 O2 Saturation 98.0 % (92.0-100.0) 05/13/17 09:05 Chau Test Positive 05/13/17 09:05 Vent Rate 16 05/13/17 09:05 Inspired O2 30 05/13/17 09:05 Tidal Volume 450 05/13/17 09:05 PEEP 3 05/13/17 09:05 Pressure (ins/psv/peep) NA 05/13/17 09:05 Critical Value ACELIS 05/13/17 09:05 Sodium 151 mEq/L (136-145) H 05/14/17 04:27 Potassium 4.0 mEq/L (3.5-5.1) 05/14/17 04:27 Chloride 119 mEq/L (98-107) H 05/14/17 04:27 Carbon Dioxide 28.9 mEq/L (21.0-31.0) 05/14/17 04:27 Anion Gap 7.1 (7.0-16.0) 05/14/17 04:27 BUN 62 mg/dL (7-25) H 05/14/17 04:27 Creatinine 1.5 mg/dL (0.7-1.3) H 05/14/17 04:27 Est GFR ( Amer) > 60.0 ml/min (>90) 05/14/17 04:27 Est GFR (Non-Af Amer) 51.3 ml/min 05/14/17 04:27 BUN/Creatinine Ratio 41.3 05/14/17 04:27 Glucose 149 mg/dL (70-105) H 05/14/17 04:27 POC Glucose 134 MG/DL (70 - 105) H 05/14/17 12:39 Hemoglobin A1c % 6.7 % (4.0-6.0) H 04/22/17 05:04 Whole Bld Lactic Acid 1.66 mmol/L (0.60-1.99) 05/12/17 04:40 Uric Acid 3.6 mg/dL (4.4-7.6) L 04/20/17 07:00 Calcium 10.3 mg/dL (8.6-10.3) 05/14/17 04:27 Phosphorus 4.6 mg/dL (2.5-5.0) 05/14/17 04:27 Magnesium 2.0 mg/dL (1.9-2.7) 05/14/17 04:27 Total Bilirubin 0.4 mg/dL (0.3-1.0) 05/14/17 04:27 Direct Bilirubin 0.13 mg/dL (0.0-0.2) 05/13/17 04:27 AST 56 U/L (13-39) H 05/14/17 04:27 ALT 23 U/L (7-52) 05/14/17 04:27 Alkaline Phosphatase 155 U/L (34-104) H 05/14/17 04:27 Ammonia 45 umol/L (16-53) 05/12/17 04:40 Creatine Kinase 136 U/L (30-223) 04/14/17 14:55 Troponin I 0.01 ng/mL (0.01-0.05) 04/22/17 05:04 C-Reactive Protein 23.6 mg/dL (0.0-0.9) H 05/07/17 04:45 B-Natriuretic Peptide 20.7 pg/mL (5.0-100.0) 05/13/17 04:27 Total Protein 6.4 gm/dL (6.0-8.3) 05/14/17 04:27 Albumin 1.8 gm/dL (4.2-5.5) L 05/14/17 04:27 Globulin 4.6 gm/dL 05/14/17 04:27 Albumin/Globulin Ratio 0.4 (1.0-1.8) L 05/14/17 04:27 Prealbumin 10 mg/dL (10-36) 05/08/17 05:00 Triglycerides 318 mg/dL (<150) H 05/12/17 04:40 Cholesterol 91 mg/dL (<200) 05/12/17 04:40 LDL Cholesterol Direct 38 mg/dL (75-193) L 04/14/17 14:55 HDL Cholesterol 13 mg/dL (23-92) L 04/14/17 14:55 Amylase 53 U/L (29-103) 05/09/17 06:00 Lipase 85 U/L (11-82) H 05/09/17 06:00 Urine Source SEN PORT 05/03/17 13:38 Urine Color YELLOW 05/03/17 13:38 Urine Clarity TURBID (CLEAR) 05/03/17 13:38 Urine pH 7.5 05/03/17 13:38 Ur Specific Lyman 1.010 (1.005-1.030) 05/03/17 13:38 Urine Protein NEGATIVE mg/dL (NEGATIVE) 05/03/17 13:38 Urine Glucose (UA) NEGATIVE mg/dL (NEGATIVE) 05/03/17 13:38 Urine Ketones NEGATIVE mg/dL (NEGATIVE) 05/03/17 13:38 Urine Blood MODERATE (NEGATIVE) H 05/03/17 13:38 Urine Nitrate NEGATIVE (NEGATIVE) 05/03/17 13:38 Urine Bilirubin NEGATIVE (NEGATIVE) 05/03/17 13:38 Urine Urobilinogen 0.2 E.U./dL (0.2 - 1.0) 05/03/17 13:38 Ur Leukocyte Esterase TRACE (NEGATIVE) H 05/03/17 13:38 Urine RBC 50-100 /hpf (0-5) H 05/03/17 13:38 Urine WBC 6-10 /hpf (0-5) H 05/03/17 13:38 Ur Epithelial Cells FEW /lpf (FEW) 05/03/17 13:38 Amorphous Sediment MANY URATES (NONE SEEN) 04/14/17 15:05 Urine Bacteria FEW /hpf (NONE SEEN) 05/03/17 13:38 Vancomycin Trough 13.5 ug/mL (10-20) 04/19/17 19:20 Helicobacter pylori Ab NEGATIVE (NEGATIVE) 05/04/17 10:05 Blood Type O POSITIVE 05/02/17 07:12 Antibody Screen NEGATIVE 05/02/17 07:12 Crossmatch See Detail 05/02/17 07:12 - Physical Exam Vitals and I&O: Vital Signs Temp 98.7 F 05/14/17 12:00 Pulse 119 05/14/17 16:58 Resp 34 05/14/17 15:00 BP 108/66 05/14/17 15:00 Pulse Ox 99 05/14/17 16:58 Intake & Output 05/13/17 05/14/17 05/14/17 18:59 06:59 18:59 Intake Total 3765 2650 242 Output Total 2590 2125 Balance 1175 525 242 Weight (lbs) 99.478 kg 98.656 kg Intake: Intake, IV Amount 2565 1200 242 D5-0.45NS 1,000 ml @ 40 1000 42 mls/hr IV .Q24H ARIAN Rx#: [id number] Fluconazole 200mg/100mL 100 200 mg In 100 ml @ 100 mls/hr IV Q24HR ARIAN Rx#: [id number] Meropenem 1 gm In Sodium 100 100 200 Chloride 0.9% 100 ml @ 100 mls/hr IV Q8H [facility]AN Rx# :[id number] Multivitamin Inj 10 ml In 2265 Dextrose 70% 1,740 ml In Amino Acids 10% 500 ml In Intralipids 20% 150 ml @ 100 mls/hr IV .Q24H [facility]AN Rx#:[id number] Tigecycline 50 mg In 100 100 Sodium Chloride 0.9% 100 ml @ 100 mls/hr IV Q12H [facility]AN Rx#:[id number] Oral 0 TPN/PPN 1200 1000 Other 450 Output: Gastric Drainage 200 250 Drainage 40 25 Medial Abdomen 40 25 Urine 2350 1850 Stool 0 Active Medications: Current Medications Acetaminophen (Tylenol 650mg/20.3ml Suspension) 650 mg NG Q6H PRN PRN Reason: FEVER/PAIN Stop: 06/21/17 17:45 Last Admin: 05/14/17 01:25 Dose: 650 mg Albuterol/Ipratropium (Duoneb Neb) 3 ml HHN Q4HRT [facility] Stop: 06/15/17 14:59 Last Admin: 05/14/17 14:04 Dose: 3 ml Amiodarone HCl (Cordarone) 200 mg NG BID [facility] Stop: 06/24/17 23:14 Last Admin: 05/14/17 09:00 Dose: Not Given Budesonide (Pulmicort) 0.5 mg HHN BIDRT [facility] Stop: 06/15/17 18:59 Last Admin: 05/14/17 07:04 Dose: 0.5 mg Chlorhexidine Gluconate (Peridex) 15 ml MM 0800,1999 [facility] Stop: 06/30/17 19:59 Last Admin: 05/14/17 08:50 Dose: 15 ml Enalaprilat (Vasotec) 2.5 mg IVP Q4HR PRN PRN Reason: SBP>150 Stop: 07/06/17 15:59 Famotidine (Pepcid) 20 mg IVP Q6HR [facility] Stop: 07/06/17 11:59 Last Admin: 05/14/17 12:42 Dose: 20 mg Furosemide (Lasix) 40 mg IVP BID [facility] Stop: 07/12/17 16:59 Last Admin: 05/14/17 09:41 Dose: Not Given Multivitamins/Minerals 10 ml/Dextrose/ Amino Acids/Electrolytes/ Fat Emulsion Intravenous 2,400 mls @ 100 mls/hr IV .Q24H [facility] Stop: 06/23/17 15:59 Last Admin: 05/13/17 15:59 Dose: 100 mls/hr Dextrose/Sodium Chloride (D5-0.45ns) 1,000 mls @ 40 mls/hr IV .Q24H [facility] Stop: 06/23/17 15:59 Last Admin: 05/14/17 08:00 Dose: 40 mls/hr Norepinephrine Bitartrate 4 mg (/ Dextrose) 254 mls @ 0 mls/hr IV TITR PRN; Protocol; 0 MCG/MIN PRN Reason: BP MAINTENANCE (PER PROTOCOL) Stop: 06/30/17 09:25 Last Titration: 05/02/17 07:00 Dose: Infused Meropenem 1 gm/ Sodium (Chloride) 100 mls @ 100 mls/hr IV Q8H [facility] Stop: 06/30/17 11:14 Last Infusion: 05/14/17 15:41 Dose: Infused Diltiazem HCl 125 mg/ Dextrose 125 mls @ 10 mls/hr IV TITR [facility]AN; 10 MG/HR PRN Reason: Protocol Stop: 07/06/17 11:14 Last Titration: 05/11/17 18:00 Dose: 0 mg/hr, 0 mls/hr Insulin Aspart (Novolog Insulin Sliding Scale) 0 units SUBQ Q6HR [facility]AN PRN Reason: Protocol Stop: 06/16/17 17:59 Last Admin: 05/14/17 12:49 Dose: Not Given Lorazepam (Ativan) 1 mg IVP Q4HR PRN; Protocol PRN Reason: Agitation Stop: 07/13/17 02:57 Last Admin: 05/14/17 11:05 Dose: 1 mg Metoclopramide HCl (Reglan) 10 mg IVP Q8HR [facility] Stop: 07/06/17 20:59 Last Admin: 05/14/17 12:41 Dose: 10 mg Metoprolol Tartrate (Lopressor) 25 mg PO BID [facility] Stop: 06/26/17 08:59 Last Admin: 05/14/17 09:42 Dose: Not Given Mineral Oil (Mineral Oil 30 Ml) 30 ml NG DAILY [facility] Stop: 07/04/17 12:29 Last Admin: 05/14/17 08:53 Dose: 30 ml Miscellaneous (Probiotic Screen) 1 ea MC PRN PRN PRN Reason: PROTOCOL Stop: 06/14/17 09:39 Miscellaneous (Tpn Per Pharmacy) 1 ea MC PRN PRN PRN Reason: PROTOCOL Stop: 06/16/17 12:28 Miscellaneous (Vte Chemical Prophylaxis Screen/ Admission) 1 ea MC PRN PRN PRN Reason: PROTOCOL Stop: 07/01/17 14:44 Morphine Sulfate (Morphine) 2 mg IVP Q4H PRN PRN Reason: PAIN Stop: 07/11/17 16:49 Last Admin: 05/14/17 03:04 Dose: 2 mg Ondansetron HCl (Zofran) 4 mg IVP Q6H PRN PRN Reason: Nausea / Vomiting Stop: 06/13/17 20:08 Last Admin: 05/09/17 12:15 Dose: 4 mg General: Other (sedated and intubated.) HEENT: Atraumatic, PERRLA, EOMI, Mucous membr. moist/pink, Other (oral endotracheal tube,NG tube+) Neck: Supple, +2 carotid pulse wo bruit Cardiovascular: Regular rate, Normal S1, Normal S2 Lungs: Other (diffuse rhonchi.) Abdomen: Soft, Other ( wound VAC anterior open abdominal wall wound. L colostomy retracted but still functional w/ stool output.) Extremities: Edema, Other (no edema and cyanosis.) Neurological: Reflexes 2+, Other (Patient is intubated and sedated) Psych/Mental Status: Other (Sedated) - Procedures Procedures: Procedures Procedure Code Date BYPASS SIGMOID COLON TO CUTANEOUS, OPEN APPROACH [id number] 04/14/17 INSERT EMERGENCY AIRWAY 43951 04/14/17 INSERTION OF ENDOTRACHEAL AIRWAY INTO TRACHEA, VIA OPENING [id number] 04/14/17 PARTIAL REMOVAL OF COLON 35477 04/14/17 RESECTION OF SIGMOID COLON, OPEN APPROACH [id number] 04/14/17 RESPIRATORY VENTILATION, 24-96 CONSECUTIVE HOURS [id number] 04/14/17 VENT MGMT INPAT INIT DAY 15808 04/14/17 VENT MGMT INPAT SUBQ DAY 45010 04/14/17 Assessment/Plan - Problem List Patient Problems: All Active Problems Abscess of sigmoid colon due to diverticulitis (Acute) K57.20 Diverticulitis of sigmoid colon (Acute) K57.32 Obesity (Acute) E66.9 Perforation of sigmoid colon due to diverticulitis (Acute) K57.20 Peritonitis (acute) generalized (Acute) K65.0 - Assessment Assessment: POD#30; s/p ex lap, sigmoid colectomy, drainage of peritonitis, lysis adhesions , ROLANDO drain placement 04/14 icu status encephalopathic, confused, obtunded, intubated. continue IVfluids +TPN mild renal insufficiency, elevated BUN/creat dvt prophylaxis Lovenox SQ colostomy end necrosed and sloughed, severely retracted, but functional w/ stool output..... poor candidate for revision of colostomy open abd wound, wound vac in place, changed q 3days, wound marge, still some yellow slough. continue iv abx. sen cath supportive care.... s/w family; guarded prognosis. off vasopressors. EGD 05/04 results noted by Reyes/GI peptic ulcer disease, NGT trauma multiple prior CT abd/pelvis....postop changes, no obvious drainable intra-abd abscess or collections tachycardia, mild leukocytosis electrolyte derangement, renal f/u, fluid management. ok to give PO meds via NGT TF via NGT held, residuals high, NGT to suction moderate output [facility] is following recommended to family tracheostomy, EGD + PEG, change central line...Dr. Bro feels pt is high risk for extubation.....Dr. Bro recommends tracheostomy. will plan OR for early next week. CT abd/pelvis results noted, no obvious drainable abscess or collection, no free air. cardizem drip stopped continue wound vac to open abd wound. Nutritional Asmnt/Malnutr-PDOC - Dietary Evaluation Malnutrition Findings (Please click <Entered> for more info): Nutritional Asmnt/Malnutrition Start: 04/19/17 14: 21 Text: Status: Complete Freq: Document 04/19/17 14:21 GSUN (Rec: 04/19/17 14:58 [id number]) Nutritional Asmnt/Malnutrition Patient General Information Nutritional Screening Moderate Risk Screening Diagnosis Sepsis, diverticulitis, peritonitis Pertinent Medical Hx/Surgical Hx Asthma, diverticulosis Subjective Information 56 year old male frome home. Pt was restless, moving extremities during visit. 04/14 : sigmoid colectomy, end colostomy, abscess drainage, diffuse peritontis. 04/16: pt started PPN. 04/17: central line and started on TPN. Spoke to family at bedside, explained parenteral nutrition , family undersoto and has no further question at this time. Weight discrepancies noted in EMR, family does not know UBW , estimated nutritional needs based Current Diet Order/ Nutrition Support TPN D10% AA4.25% at 90ml/hr with IL20% 150ml, providing 1401.6kcal Pertinent Medications Dilaudid, Novolog, Culturelle, Magnesium Sulfate, Vancomycin , TPN, Morphine, Multivitamins , Zofran, Protonix, Nacl0.9% Pertinent Labs 04/14: triglycerides 106, total bilirubin 1.1H, glucose 116H 04/17: magnesium 2.5, phsophorus 3.2 04/19: magnesium 1.8L, phosphorus 2.4L, BUN 28H, creatinine 1.3, glucose 154H, total bilirubin 1.1H, triglycerides 238H Nutritional Hx/Data Height 1.7 m Height (Calculated Centimeters) 170.2 Current Weight (lbs) 95.254 kg Weight (Calculated Kilograms) 95.3 Weight (Calculated Grams) 93078.4 [place] Body Weight 148 Weight Status Overweight GI Symptoms Skin Integrity/Comment: [place] 14. Facial non-pitting 1+, bilateral hands pitting 1+ Estimated Nutritional Goals Calories/Kcals/Kg IBW 148/67.3kg Kcals Calculated 2019-2356kcal (30-35kcal/kg) Protein Calculated 101-135g (1.5-2g/kg) Fluid: ml Per MD Nutritional Problem 1. Problem Problem Altered GI function related to Etiology abscess and perforation of sigmoid colon due to diverticulitis aeb Signs/Symptoms: post-operative, on TPN Intervention/Recommendation Comments 1. Recommend TPN D15% AA5.5% at 100ml/hr with IL20% 150ml, providing 2400ml total volume, 2052kcal, 132g protein, meeting 100% of estimated nutritional needs. Carb load 2 .6mg/kg/min (using 210lb adm weight). 2. Monitor for possible refeeding syndrome, 04/18: phsophorus 2.1L, 04/19: magnesium 1.9. 3. Monitor triglycerides, total bilirubin, glucose, renal labs. Expected Outcomes/Goals Expected Outcomes/Goals 1. Pt to meet 100% of estimated nutritional needs on TPN.
[2017-05-14] MEDS: TPN 10%-70% CUSTOM IV SCH (18:39)
[2017-05-14] MEDS ORDERED: Amikacin 250 mg/mL 2mL Vial IV ONE (21:10)
[2017-05-14] MEDS: AMIKACIN IV SCH (21:43)
[2017-05-14] MEDS: DEXTROSE 5% IV SCH (21:43)
[2017-05-15] MEDS: INSULIN ASPART SLIDING SCALE 100 UNITS/ML UNIT SUBQ SCH ×4 (00:32→18:11)
[2017-05-15] MEDS: Morphine Sulfate 4 mg/mL 1mL Syr IVP PRN ×2 (02:34→11:15)
[2017-05-15] MEDS: Meropenem 1 GM in Sodium Chloride 0.9% 100 ML IV SCH (02:35)
[2017-05-15] MEDS: Albuterol/Ipratropium Neb 3 ML AERS HHN SCH ×6 (02:56→22:43)
--- NOTE | 2017-05-15 03:36 | Progress Notes ---
DATE: 05/14/2017 PROBLEM LIST: 1. Persistent respiratory failure. 2. Encephalopathic state. 3. Status post abdominal surgery with persistent tenderness and guarding. SYMPTOMS: Noncommunicative, not in any acute distress. Currently still on a ventilator. PHYSICAL EXAMINATION: VITAL SIGNS: Temperature 99, heart rate 110-140, blood pressure ____, saturation 100% on ____. NECK: Veins not visualized. CHEST: Shows diminished air entry with occasional rhonchi. HEART: Regular. ABDOMEN: Soft, but quite guarding, rigidity in lower abdomen. ASSESSMENT: The patient clinically status quo, not significantly changed. PLANS AND SUGGESTIONS: We will go ahead and continue current treatment, okay for ____ and go from there. JOB# [id number]
[2017-05-15] MEDS: Metoclopramide 5 mg/mL 2mL Vial IVP SCH ×3 (04:29→20:43)
[2017-05-15 05:03] LABS: % BASOPHILS 0.5 % (0.0-2.0); % EOSINOPHILS 12.3 % (0.0-5.0); % LYMPHOCYTES 17.3 % (20.0-50.0); % MONOCYTES 8.6 % (2.0-10.0); % NEUTROPHILS 61.3 % (40.0-80.0); HEMATOCRIT 27.8 % (39.0-49.0); HEMOGLOBIN 9.1 gm/dL (13.2-17.3); MEAN CELL VOLUME 81.1 fl (80-99); MEAN CORPUSCULAR HEMOGLOBIN 26.6 pg (26.0-30.0); MEAN CORPUSCULAR HGB CONC 32.8 pg (28.0-36.0); MEAN PLATELET VOLUME 8.5 fl; NEUTROPHILE ABSOLUTE 7.6 Th/cmm (1.8-8.0); PLATELET COUNT 294 Th/cmm (150-400); RED BLOOD COUNT 3.43 Mil/cmm (4.30-5.70); RED CELL DISTRIBUTION WIDTH 17.1 % (11.5-20.0)
[2017-05-15 05:25] LABS: ALB/GLOB RATIO 0.4 (1.0-1.8); ALKALINE PHOSPHATASE 164 U/L (34-104); ANION GAP 6.8 (7.0-16.0); BILIRUBIN,TOTAL 0.5 mg/dL (0.3-1.0); BUN - UREA NITROGEN 63 mg/dL (7-25); CALCIUM SERUM 10.3 mg/dL (8.6-10.3); CARBON DIOXIDE 27.2 mEq/L (21.0-31.0); CHLORIDE 119 mEq/L (98-107); CREATININE - SERUM 1.4 mg/dL (0.7-1.3); GLUCOSE 162 mg/dL (70-105); SGOT 66 U/L (13-39); SGPT/ALT 27 U/L (7-52); SODIUM SERUM 149 mEq/L (136-145)
[2017-05-15 05:26] LABS: MAGNESIUM 2.2 mg/dL (1.9-2.7); PHOSPHOROUS 4.5 mg/dL (2.5-5.0); WHITE BLOOD COUNT 12.5 Th/cmm (4.8-10.8)
[2017-05-15] MEDS: Budesonide 0.5 Mg/2 mL Ud HHN SCH ×2 (06:53→19:04)
[2017-05-15] MEDS: Chlorhexidine Gluconate 0.12% 15mL Mouthwash MM SCH ×2 (08:25→20:43)
[2017-05-15] MEDS: AMIKACIN IV SCH ×2 (08:30→20:43)
[2017-05-15] MEDS: DEXTROSE 5% IV SCH ×2 (08:30→20:43)
[2017-05-15] MEDS: TPN 10%-70% CUSTOM IV SCH (15:40)
--- NOTE | 2017-05-15 16:25 | General Progress Note ---
Subjective - Review of Systems Subjective: Patient is seen and examined. Patient currently on wind. Patient is trying to follow commands. Care plan reviewed and discussed with staff.. Objective - Results Result Diagrams: 05/15/17 04:29 05/15/17 04:29 Recent Labs: Laboratory Last Values WBC 12.5 Th/cmm (4.8-10.8) H 05/15/17 04:29 RBC 3.43 Mil/cmm (4.30-5.70) L 05/15/17 04:29 Hgb 9.1 gm/dL (13.2-17.3) L 05/15/17 04:29 Hct 27.8 % (39.0-49.0) L 05/15/17 04:29 MCV 81.1 fl (80-99) 05/15/17 04:29 MCH 26.6 pg (26.0-30.0) 05/15/17 04:29 MCHC Differential 32.8 pg (28.0-36.0) 05/15/17 04:29 RDW 17.1 % (11.5-20.0) 05/15/17 04:29 Plt Count 294 Th/cmm (150-400) 05/15/17 04:29 MPV 8.5 fl 05/15/17 04:29 Neutrophils % 61.3 % (40.0-80.0) 05/15/17 04:29 Band Neutrophils % 4 % (0-10) 05/02/17 05:15 Lymphocytes % 17.3 % (20.0-50.0) L 05/15/17 04:29 Monocytes % 8.6 % (2.0-10.0) 05/15/17 04:29 Eosinophils % 12.3 % (0.0-5.0) H 05/15/17 04:29 Basophils % 0.5 % (0.0-2.0) 05/15/17 04:29 Neutrophils (Manual) 68 % (40-80) 05/02/17 05:15 Lymphocytes 14 % (20-50) L 05/02/17 05:15 Monocytes 8 % (2-10) 05/02/17 05:15 Eosinophils 6 % (0-5) H 05/02/17 05:15 Metamyelocytes 1 % (0-0) H 04/22/17 05:04 Platelet Estimate ADEQUATE (NORMAL) 05/02/17 05:15 Platelet Morphology NORMAL (NORMAL) 05/02/17 05:15 Anisocytosis 1+ 04/28/17 06:08 Microcytosis 1+ 05/02/17 05:15 RBC Morph Micro Appear ABNORMAL (NORMAL) 05/02/17 05:15 ESR > 140 mm/hr (0-20) H 04/20/17 07:00 PT 11.9 SECONDS (9.5-11.5) H 04/24/17 21:19 INR 1.13 (0.5-1.4) 04/24/17 21:19 PTT (Actin FS) 27.6 SECONDS (26.0-38.0) 04/24/17 21:19 Specimen Source Arterial 05/13/17 09:05 Sample Site Right Radial 05/13/17 09:05 pH 7.41 (7.35-7.45) 05/13/17 09:05 pCO2 48.0 mmHg (35.0-45.0) H 05/13/17 09:05 pO2 104.0 mmHg (80.0-100.0) H 05/13/17 09:05 HCO3 28.7 mEq/L (20.0-26.0) H 05/13/17 09:05 Base Excess 4.8 mEq/L (-3.0-3.0) H 05/13/17 09:05 O2 Saturation 98.0 % (92.0-100.0) 05/13/17 09:05 Chau Test Positive 05/13/17 09:05 Vent Rate 16 05/13/17 09:05 Inspired O2 30 05/13/17 09:05 Tidal Volume 450 05/13/17 09:05 PEEP 3 05/13/17 09:05 Pressure (ins/psv/peep) NA 05/13/17 09:05 Critical Value ACELIS 05/13/17 09:05 Sodium 149 mEq/L (136-145) H 05/15/17 04:29 Potassium 4.0 mEq/L (3.5-5.1) 05/15/17 04:29 Chloride 119 mEq/L (98-107) H 05/15/17 04:29 Carbon Dioxide 27.2 mEq/L (21.0-31.0) 05/15/17 04:29 Anion Gap 6.8 (7.0-16.0) L 05/15/17 04:29 BUN 63 mg/dL (7-25) H 05/15/17 04:29 Creatinine 1.4 mg/dL (0.7-1.3) H 05/15/17 04:29 Est GFR ( Amer) > 60.0 ml/min (>90) 05/15/17 04:29 Est GFR (Non-Af Amer) 55.5 ml/min 05/15/17 04:29 BUN/Creatinine Ratio 45.0 05/15/17 04:29 Glucose 162 mg/dL (70-105) H 05/15/17 04:29 POC Glucose 197 MG/DL (70 - 105) H 05/15/17 11:43 Hemoglobin A1c % 6.7 % (4.0-6.0) H 04/22/17 05:04 Whole Bld Lactic Acid 1.66 mmol/L (0.60-1.99) 05/12/17 04:40 Uric Acid 3.6 mg/dL (4.4-7.6) L 04/20/17 07:00 Calcium 10.3 mg/dL (8.6-10.3) 05/15/17 04:29 Phosphorus 4.5 mg/dL (2.5-5.0) 05/15/17 04:29 Magnesium 2.2 mg/dL (1.9-2.7) 05/15/17 04:29 Total Bilirubin 0.5 mg/dL (0.3-1.0) 05/15/17 04:29 Direct Bilirubin 0.13 mg/dL (0.0-0.2) 05/13/17 04:27 AST 66 U/L (13-39) H 05/15/17 04:29 ALT 27 U/L (7-52) 05/15/17 04:29 Alkaline Phosphatase 164 U/L (34-104) H 05/15/17 04:29 Ammonia 45 umol/L (16-53) 05/12/17 04:40 Creatine Kinase 136 U/L (30-223) 04/14/17 14:55 Troponin I 0.01 ng/mL (0.01-0.05) 04/22/17 05:04 C-Reactive Protein 27.5 mg/dL (0.0-0.9) H 05/15/17 04:29 B-Natriuretic Peptide 20.7 pg/mL (5.0-100.0) 05/13/17 04:27 Total Protein 6.0 gm/dL (6.0-8.3) 05/15/17 04:29 Albumin 1.6 gm/dL (4.2-5.5) L 05/15/17 04:29 Globulin 4.4 gm/dL 05/15/17 04:29 Albumin/Globulin Ratio 0.4 (1.0-1.8) L 05/15/17 04:29 Prealbumin 10 mg/dL (10-36) 05/08/17 05:00 Triglycerides 281 mg/dL (<150) H 05/15/17 04:29 Cholesterol 91 mg/dL (<200) 05/12/17 04:40 LDL Cholesterol Direct 38 mg/dL (75-193) L 04/14/17 14:55 HDL Cholesterol 13 mg/dL (23-92) L 04/14/17 14:55 Amylase 53 U/L (29-103) 05/09/17 06:00 Lipase 85 U/L (11-82) H 05/09/17 06:00 Urine Source [place] 05/03/17 13:38 Urine Color YELLOW 05/03/17 13:38 Urine Clarity TURBID (CLEAR) 05/03/17 13:38 Urine pH 7.5 05/03/17 13:38 Ur Specific [place] 1.010 (1.005-1.030) 05/03/17 13:38 Urine Protein NEGATIVE mg/dL (NEGATIVE) 05/03/17 13:38 Urine Glucose (UA) NEGATIVE mg/dL (NEGATIVE) 05/03/17 13:38 Urine Ketones NEGATIVE mg/dL (NEGATIVE) 05/03/17 13:38 Urine Blood MODERATE (NEGATIVE) H 05/03/17 13:38 Urine Nitrate NEGATIVE (NEGATIVE) 05/03/17 13:38 Urine Bilirubin NEGATIVE (NEGATIVE) 05/03/17 13:38 Urine Urobilinogen 0.2 E.U./dL (0.2 - 1.0) 05/03/17 13:38 Ur Leukocyte Esterase TRACE (NEGATIVE) H 05/03/17 13:38 Urine RBC 50-100 /hpf (0-5) H 05/03/17 13:38 Urine WBC 6-10 /hpf (0-5) H 05/03/17 13:38 Ur Epithelial Cells FEW /lpf (FEW) 05/03/17 13:38 Amorphous Sediment MANY URATES (NONE SEEN) 04/14/17 15:05 Urine Bacteria FEW /hpf (NONE SEEN) 05/03/17 13:38 Vancomycin Trough 13.5 ug/mL (10-20) 04/19/17 19:20 Helicobacter pylori Ab NEGATIVE (NEGATIVE) 05/04/17 10:05 Blood Type O POSITIVE 05/02/17 07:12 Antibody Screen NEGATIVE 05/02/17 07:12 Crossmatch See Detail 05/02/17 07:12 - Physical Exam Vitals and I&O: Vital Signs Temp 98.8 F 05/15/17 14:00 Pulse 86 05/15/17 15:06 Resp 17 05/15/17 14:00 BP 90/59 05/15/17 14:00 Pulse Ox 100 05/15/17 15:06 Intake & Output 05/14/17 05/15/17 05/15/17 18:59 06:59 18:59 Intake Total 3992 1752 2101.667 Output Total 1300 1600 Balance 2692 152 2101.667 Weight (lbs) 98.43 kg 99.79 kg Intake: Intake, IV Amount 2642 552 2101.667 Amikacin 500 mg In 252 Dextrose 5% 250 ml @ 250 mls/hr IV Q12H [facility] Rx#: [id number] D5-0.45NS 1,000 ml @ 40 42 mls/hr IV .Q24H [facility] Rx#: [id number] Meropenem 1 gm In Sodium 200 200 Chloride 0.9% 100 ml @ 100 mls/hr IV Q8H [facility] Rx# :[id number] Multivitamin Inj 10 ml In 2400 2101.667 Dextrose 70% 1,740 ml In Amino Acids 10% 500 ml In Intralipids 20% 150 ml @ 100 mls/hr IV .Q24H [facility] Rx#:[id number] Tigecycline 50 mg In 100 Sodium Chloride 0.9% 100 ml @ 100 mls/hr IV Q12HR [facility] Rx#:[id number] Oral 0 TPN/PPN 1200 1200 Other 150 Output: Gastric Drainage 200 Urine 1300 1400 Stool 0 Active Medications: Current Medications Acetaminophen (Tylenol 650mg/20.3ml Suspension) 650 mg NG Q6H PRN PRN Reason: FEVER/PAIN Stop: 06/21/17 17:45 Last Admin: 05/15/17 09:50 Dose: 650 mg Albuterol/Ipratropium (Duoneb Neb) 3 ml HHN Q4HRT [facility] Stop: 06/15/17 14:59 Last Admin: 05/15/17 15:06 Dose: 3 ml Amiodarone HCl (Cordarone) 200 mg NG BID [facility]AN Stop: 06/24/17 23:14 Last Admin: 05/15/17 10:10 Dose: 200 mg Budesonide (Pulmicort) 0.5 mg HHN BIDRT [facility] Stop: 06/15/17 18:59 Last Admin: 05/15/17 06:53 Dose: 0.5 mg Chlorhexidine Gluconate (Peridex) 15 ml MM 0800,2000 [facility] Stop: 06/30/17 19:59 Last Admin: 05/15/17 08:25 Dose: 15 ml Enalaprilat (Vasotec) 2.5 mg IVP Q4HR PRN PRN Reason: SBP>150 Stop: 07/06/17 15:59 Famotidine (Pepcid) 20 mg IVP Q6HR [facility] Stop: 07/06/17 11:59 Last Admin: 05/15/17 11:23 Dose: 20 mg Furosemide (Lasix) 40 mg IVP BID [facility] Stop: 07/12/17 16:59 Last Admin: 05/15/17 09:40 Dose: 40 mg Multivitamins/Minerals 10 ml/Dextrose/ Amino Acids/Electrolytes/ Fat Emulsion Intravenous 2,400 mls @ 100 mls/hr IV .Q24H [facility] Stop: 06/23/17 15:59 Last Admin: 05/15/17 15:40 Dose: 100 mls/hr Dextrose/Sodium Chloride (D5-0.45ns) 1,000 mls @ 40 mls/hr IV .Q24H [facility] Stop: 06/23/17 15:59 Last Admin: 05/14/17 08:00 Dose: 40 mls/hr Norepinephrine Bitartrate 4 mg (/ Dextrose) 254 mls @ 0 mls/hr IV TITR PRN; Protocol; 0 MCG/MIN PRN Reason: BP MAINTENANCE (PER PROTOCOL) Stop: 06/30/17 09:25 Last Titration: 05/02/17 07:00 Dose: Infused Diltiazem HCl 125 mg/ Dextrose 125 mls @ 10 mls/hr IV TITR ARIAN; 10 MG/HR PRN Reason: Protocol Stop: 07/06/17 11:14 Last Titration: 05/11/17 18:00 Dose: 0 mg/hr, 0 mls/hr Tigecycline 50 mg/ Sodium (Chloride) 100 mls @ 100 mls/hr IV Q12HR [facility] Stop: 07/13/17 20:59 Last Admin: 05/15/17 09:55 Dose: 100 mls/hr Amikacin Sulfate 500 mg/ (Dextrose) 252 mls @ 250 mls/hr IV Q12H [facility] Stop: 07/13/17 20:29 Last Admin: 05/15/17 08:30 Dose: 250 mls/hr Insulin Aspart (Novolog Insulin Sliding Scale) 0 units SUBQ Q6HR [facility] PRN Reason: Protocol Stop: 06/16/17 17:59 Last Admin: 05/15/17 11:50 Dose: 2 units Lorazepam (Ativan) 1 mg IVP Q4HR PRN; Protocol PRN Reason: Agitation Stop: 07/13/17 02:57 Last Admin: 05/14/17 11:05 Dose: 1 mg Metoclopramide HCl (Reglan) 10 mg IVP Q8HR [facility] Stop: 07/06/17 20:59 Last Admin: 05/15/17 04:29 Dose: 10 mg Metoprolol Tartrate (Lopressor) 25 mg PO BID [facility] Stop: 06/26/17 08:59 Last Admin: 05/15/17 09:10 Dose: Not Given Mineral Oil (Mineral Oil 30 Ml) 30 ml NG DAILY [facility] Stop: 07/04/17 12:29 Last Admin: 05/15/17 09:25 Dose: Not Given Miscellaneous (Probiotic Screen) 1 ea MC PRN PRN PRN Reason: PROTOCOL Stop: 06/14/17 09:39 Miscellaneous (Tpn Per Pharmacy) 1 ea MC PRN PRN PRN Reason: PROTOCOL Stop: 06/16/17 12:28 Miscellaneous (Vte Chemical Prophylaxis Screen/ Admission) 1 ea MC PRN PRN PRN Reason: PROTOCOL Stop: 07/01/17 14:44 Miscellaneous (Amikacin Iv Per Pharmacy) 1 ea MC PRN PRN PRN Reason: PROTOCOL Stop: 07/13/17 18:39 Morphine Sulfate (Morphine) 2 mg IVP Q4H PRN PRN Reason: PAIN Stop: 07/11/17 16:49 Last Admin: 05/15/17 11:15 Dose: 2 mg General: Other (sedated and intubated.) HEENT: Atraumatic, PERRLA, EOMI, Mucous membr. moist/pink, Other (oral endotracheal tube,NG tube+) Neck: Supple, +2 carotid pulse wo bruit Cardiovascular: Regular rate, Normal S1, Normal S2 Lungs: Other (diffuse rhonchi.) Abdomen: Soft, Other ( wound VAC anterior open abdominal wall wound. L colostomy retracted but still functional w/ stool output.) Extremities: Edema, Other (no edema and cyanosis.) Neurological: Reflexes 2+, Other (Patient is intubated and sedated) Psych/Mental Status: Other (Sedated) - Procedures Procedures: Procedures Procedure Code Date BYPASS SIGMOID COLON TO CUTANEOUS, OPEN APPROACH [id number] 04/14/17 INSERT EMERGENCY AIRWAY 01622 04/14/17 INSERTION OF ENDOTRACHEAL AIRWAY INTO TRACHEA, VIA OPENING [id number] 04/14/17 PARTIAL REMOVAL OF COLON 74589 04/14/17 RESECTION OF SIGMOID COLON, OPEN APPROACH [id number] 04/14/17 RESPIRATORY VENTILATION, 24-96 CONSECUTIVE HOURS [id number] 04/14/17 VENT MGMT INPAT INIT DAY 45265 04/14/17 VENT MGMT INPAT SUBQ DAY 96592 04/14/17 Assessment/Plan - Problem List Patient Problems: All Active Problems Abscess of sigmoid colon due to diverticulitis (Acute) K57.20 Diverticulitis of sigmoid colon (Acute) K57.32 Obesity (Acute) E66.9 Perforation of sigmoid colon due to diverticulitis (Acute) K57.20 Peritonitis (acute) generalized (Acute) K65.0 - Assessment Assessment: Current Active Problems Problem Status Onset Abscess of sigmoid colon due to diverticulitis Acute Diverticulitis of sigmoid colon Acute Obesity Acute Perforation of sigmoid colon due to diverticulitis Acute Peritonitis (acute) generalized Acute Perforated diverticulitis status post expiratory laparotomy and colostomy placement. Postoperative respiratory failure on vent. Obesity. MDROs organisms positive culture. GI bleed stable. Suspect developing ARDS. Polymicrobial peritonitis due to perforation.. Asthma. SVT currently on Cardizem drip Electrolyte imbalance. SEKOU . Encephalopathy due to metabolic and infectious etio. Open surgical wound with wound VAC. Altered mental status secondary to metabolic and infectious encephalopathy. Postop anemia. - Plan Plan: ICU status. Vent support. Nebulizer treatment. Pulmonary toilet. IV antibiotics as per ID. TPN. blood culture now and sputum gram stain C/S. Discussed with general accounting clerk agreed with the tracheostomy. Needs PEG possible placement on Wednesday. Rate control with cardizem drip. Blood pressure control Wound care with wound VAC Surgical follow-up ID follow-up Cardiology follow-up Pulmonary follow-up ICU care. Symptoms management. Medication management. IV PPI. Monitor lab. Guarded prognosis. Chronic management of his medical illnesses. Care plan discussed with RN. Nutritional Asmnt/Malnutr-PDOC - Dietary Evaluation Malnutrition Findings (Please click <Entered> for more info): Nutritional Asmnt/Malnutrition Start: 04/19/17 14: 21 Text: Status: Complete Freq: Document 04/19/17 14:21 GSUN (Rec: 04/19/17 14:58 [id number]) Nutritional Asmnt/Malnutrition Patient General Information Nutritional Screening Moderate Risk Screening Diagnosis Sepsis, diverticulitis, peritonitis Pertinent Medical Hx/Surgical Hx Asthma, diverticulosis Subjective Information 56 year old male frome home. Pt was restless, moving extremities during visit. 04/14 : sigmoid colectomy, end colostomy, abscess drainage, diffuse peritontis. 04/16: pt started PPN. 04/17: central line and started on TPN. Spoke to family at bedside, explained parenteral nutrition , family undersoto and has no further question at this time. Weight discrepancies noted in EMR, family does not know UBW , estimated nutritional needs based Current Diet Order/ Nutrition Support TPN D10% AA4.25% at 90ml/hr with IL20% 150ml, providing 1401.6kcal Pertinent Medications Dilaudid, Novolog, Culturelle, Magnesium Sulfate, Vancomycin , TPN, Morphine, Multivitamins , Zofran, Protonix, Nacl0.9% Pertinent Labs 04/14: triglycerides 106, total bilirubin 1.1H, glucose 116H 04/17: magnesium 2.5, phsophorus 3.2 04/19: magnesium 1.8L, phosphorus 2.4L, BUN 28H, creatinine 1.3, glucose 154H, total bilirubin 1.1H, triglycerides 238H Nutritional Hx/Data Height 1.7 m Height (Calculated Centimeters) 170.2 Current Weight (lbs) 95.254 kg Weight (Calculated Kilograms) 95.3 Weight (Calculated Grams) 77450.4 [place] Body Weight 148 Weight Status Overweight GI Symptoms Skin Integrity/Comment: [place] 14. Facial non-pitting 1+, bilateral hands pitting 1+ Estimated Nutritional Goals Calories/Kcals/Kg IBW 148/67.3kg Kcals Calculated 2018-2356kcal (30-35kcal/kg) Protein Calculated 101-135g (1.5-2g/kg) Fluid: ml Per MD Nutritional Problem 1. Problem Problem Altered GI function related to Etiology abscess and perforation of sigmoid colon due to diverticulitis aeb Signs/Symptoms: post-operative, on TPN Intervention/Recommendation Comments 1. Recommend TPN D15% AA5.5% at 100ml/hr with IL20% 150ml, providing 2400ml total volume, 2052kcal, 132g protein, meeting 100% of estimated nutritional needs. Carb load 2 .6mg/kg/min (using 210lb adm weight). 2. Monitor for possible refeeding syndrome, 04/18: phsophorus 2.1L, 04/19: magnesium 1.9. 3. Monitor triglycerides, total bilirubin, glucose, renal labs. Expected Outcomes/Goals Expected Outcomes/Goals 1. Pt to meet 100% of estimated nutritional needs on TPN.
--- NOTE | 2017-05-15 19:09 | Progress Notes ---
DATE: 05/15/2017 PULMONARY PROGRESS NOTE PROBLEM LIST: 1. Persistent respiratory failure. 2. Encephalopathy, probably metabolic secondary to chronic recurrent infection on ____ obstructive sleep apnea syndrome. 3. Multidrug-resistant organism, most likely this is colonization. SYMPTOMS: Noncommunicative, not in any acute distress, etc. PHYSICAL EXAMINATION: VITAL SIGNS: The patient's recorded vitals: Temperature is around 98, respiration is about 20-25, heart rate is about 90, the patient's blood pressure is 90/59, saturation 100% on 30% of AC of 14. NECK: Veins not visualized. CHEST: Shows diminished air entry with occasional rhonchi. HEART: Regular. ABDOMEN: Still quite tender with guarding lower abdomen area. LABORATORY DATA: White count is 12.5. Sodium is 149 and the patient's alkaline phosphatase is slightly high, and triglyceride is 128. IMPRESSION: The patient is status quo, not too much changed, persistent encephalopathy state, periods of tachypnea and tachycardia. PLANS AND SUGGESTIONS: Okay for trach. I have discussed with ____. May prefer [facility] trach because of the patient's short size of the neck, and he is planning to do hopefully next week and go from there. Family were kind of appraisal to saturation yesterday. JOB# [id number]
[2017-05-16] MEDS: INSULIN ASPART SLIDING SCALE 100 UNITS/ML UNIT SUBQ SCH ×4 (00:20→18:05)
[2017-05-16] MEDS: Albuterol/Ipratropium Neb 3 ML AERS HHN SCH ×6 (03:14→23:13)
[2017-05-16] MEDS: Metoclopramide 5 mg/mL 2mL Vial IVP SCH ×3 (04:37→20:31)
[2017-05-16 06:50] LABS: MEAN CORPUSCULAR HEMOGLOBIN 26.9 pg (26.0-30.0)
[2017-05-16 06:58] LABS: HEMATOCRIT 26.5 % (39.0-49.0); HEMOGLOBIN 8.8 gm/dL (13.2-17.3); MEAN CELL VOLUME 81.3 fl (80-99); MEAN CORPUSCULAR HGB CONC 33.1 pg (28.0-36.0); MEAN PLATELET VOLUME 9.7 fl; PLATELET COUNT 284 Th/cmm (150-400); RED BLOOD COUNT 3.26 Mil/cmm (4.30-5.70); RED CELL DISTRIBUTION WIDTH 17.4 % (11.5-20.0); WHITE BLOOD COUNT 11.6 Th/cmm (4.8-10.8)
[2017-05-16 07:10] LABS: ALB/GLOB RATIO 0.4 (1.0-1.8); ALKALINE PHOSPHATASE 188 U/L (34-104); ANION GAP 6.3 (7.0-16.0); BILIRUBIN,TOTAL 0.6 mg/dL (0.3-1.0); BUN - UREA NITROGEN 67 mg/dL (7-25); BUN/CREATININE RATIO 44.7; CALCIUM SERUM 10.7 mg/dL (8.6-10.3); CARBON DIOXIDE 29.5 mEq/L (21.0-31.0); CHLORIDE 118 mEq/L (98-107); CREATININE - SERUM 1.5 mg/dL (0.7-1.3); GLUCOSE 141 mg/dL (70-105); POTASSIUM SERUM 3.8 mEq/L (3.5-5.1); SGOT 78 U/L (13-39); SGPT/ALT 36 U/L (7-52); SODIUM SERUM 150 mEq/L (136-145)
[2017-05-16 07:13] LABS: MAGNESIUM 2.2 mg/dL (1.9-2.7); PHOSPHOROUS 4.5 mg/dL (2.5-5.0)
[2017-05-16] MEDS: Budesonide 0.5 Mg/2 mL Ud HHN SCH ×2 (07:39→19:01)
[2017-05-16] MEDS: Morphine Sulfate 4 mg/mL 1mL Syr IVP PRN ×2 (07:50→18:11)
[2017-05-16] MEDS: AMIKACIN IV SCH (08:01)
[2017-05-16] MEDS: Chlorhexidine Gluconate 0.12% 15mL Mouthwash MM SCH ×2 (08:01→19:53)
[2017-05-16] MEDS: DEXTROSE 5% IV SCH (08:01)
[2017-05-16 08:46] LABS: ABG SOURCE Arterial; ALLEN TEST Positive; BE(B) 6.4 mEq/L (-3.0-3.0); HCO3 29.9 mEq/L (20.0-26.0); pH 7.48 (7.35-7.45)
[2017-05-16 08:47] LABS: FIO2 30; MECH RATE 16; MECH VT 450
--- NOTE | 2017-05-16 10:16 | Diagnostic Imaging Report ---
CHEST X-RAY: AP view INDICATION: Respiratory failure COMPARISON: Chest x-ray 05/13/2017 FINDINGS: Support devices remain stable accounting for differences in positioning. Slight increased right basal hazy density is noted. No focal consolidation or pleural abnormalities identified. IMPRESSION: Slight increased right basal hazy density. Atelectasis versus less likely infiltrate cannot be excluded in this region.
--- NOTE | 2017-05-16 10:35 | General Progress Note ---
Subjective - Review of Systems Service Date: 05/16/17 Subjective: encephalopathy, obtunded, nonverbal Objective - Results Result Diagrams: 05/16/17 04:13 05/16/17 04:13 Recent Labs: Laboratory Last Values WBC 11.6 Th/cmm (4.8-10.8) H 05/16/17 04:13 RBC 3.26 Mil/cmm (4.30-5.70) L 05/16/17 04:13 Hgb 8.8 gm/dL (13.2-17.3) L 05/16/17 04:13 Hct 26.5 % (39.0-49.0) L 05/16/17 04:13 MCV 81.3 fl (80-99) 05/16/17 04:13 MCH 26.9 pg (26.0-30.0) 05/16/17 04:13 MCHC Differential 33.1 pg (28.0-36.0) 05/16/17 04:13 RDW 17.4 % (11.5-20.0) 05/16/17 04:13 Plt Count 284 Th/cmm (150-400) 05/16/17 04:13 MPV 9.7 fl 05/16/17 04:13 Neutrophils % 61.3 % (40.0-80.0) 05/15/17 04:29 Band Neutrophils % 4 % (0-10) 05/02/17 05:15 Lymphocytes % 17.3 % (20.0-50.0) L 05/15/17 04:29 Monocytes % 8.6 % (2.0-10.0) 05/15/17 04:29 Eosinophils % 12.3 % (0.0-5.0) H 05/15/17 04:29 Basophils % 0.5 % (0.0-2.0) 05/15/17 04:29 Neutrophils (Manual) 68 % (40-80) 05/02/17 05:15 Lymphocytes 14 % (20-50) L 05/02/17 05:15 Monocytes 8 % (2-10) 05/02/17 05:15 Eosinophils 6 % (0-5) H 05/02/17 05:15 Metamyelocytes 1 % (0-0) H 04/22/17 05:04 Platelet Estimate ADEQUATE (NORMAL) 05/02/17 05:15 Platelet Morphology NORMAL (NORMAL) 05/02/17 05:15 Anisocytosis 1+ 04/28/17 06:08 Microcytosis 1+ 05/02/17 05:15 RBC Morph Micro Appear ABNORMAL (NORMAL) 05/02/17 05:15 ESR > 140 mm/hr (0-20) H 04/20/17 07:00 PT 11.9 SECONDS (9.5-11.5) H 04/24/17 21:19 INR 1.13 (0.5-1.4) 04/24/17 21:19 PTT (Actin FS) 27.6 SECONDS (26.0-38.0) 04/24/17 21:19 Specimen Source Arterial 05/16/17 08:37 Sample Site Right Radial 05/16/17 08:37 pH 7.48 (7.35-7.45) H 05/16/17 08:37 pCO2 41.0 mmHg (35.0-45.0) 05/16/17 08:37 pO2 78.0 mmHg (80.0-100.0) L 05/16/17 08:37 HCO3 29.9 mEq/L (20.0-26.0) H 05/16/17 08:37 Base Excess 6.4 mEq/L (-3.0-3.0) H 05/16/17 08:37 O2 Saturation 96.0 % (92.0-100.0) 05/16/17 08:37 Chau Test Positive 05/16/17 08:37 Vent Rate 16 05/16/17 08:37 Inspired O2 30 05/16/17 08:37 Tidal Volume 450 05/16/17 08:37 PEEP 3 05/16/17 08:37 Pressure (ins/psv/peep) NA 05/16/17 08:37 Critical Value LZHANG 05/16/17 08:37 Sodium 150 mEq/L (136-145) H 05/16/17 04:13 Potassium 3.8 mEq/L (3.5-5.1) 05/16/17 04:13 Chloride 118 mEq/L (98-107) H 05/16/17 04:13 Carbon Dioxide 29.5 mEq/L (21.0-31.0) 05/16/17 04:13 Anion Gap 6.3 (7.0-16.0) L 05/16/17 04:13 BUN 67 mg/dL (7-25) H 05/16/17 04:13 Creatinine 1.5 mg/dL (0.7-1.3) H 05/16/17 04:13 Est GFR ( Amer) > 60.0 ml/min (>90) 05/16/17 04:13 Est GFR (Non-Af Amer) 51.3 ml/min 05/16/17 04:13 BUN/Creatinine Ratio 44.7 05/16/17 04:13 Glucose 141 mg/dL (70-105) H 05/16/17 04:13 POC Glucose 141 MG/DL (70 - 105) H 05/16/17 05:51 Hemoglobin A1c % 6.7 % (4.0-6.0) H 04/22/17 05:04 Whole Bld Lactic Acid 1.66 mmol/L (0.60-1.99) 05/12/17 04:40 Uric Acid 3.6 mg/dL (4.4-7.6) L 04/20/17 07:00 Calcium 10.7 mg/dL (8.6-10.3) H 05/16/17 04:13 Phosphorus 4.5 mg/dL (2.5-5.0) 05/16/17 04:13 Magnesium 2.2 mg/dL (1.9-2.7) 05/16/17 04:13 Total Bilirubin 0.6 mg/dL (0.3-1.0) 05/16/17 04:13 Direct Bilirubin 0.13 mg/dL (0.0-0.2) 05/13/17 04:27 AST 78 U/L (13-39) H 05/16/17 04:13 ALT 36 U/L (7-52) 05/16/17 04:13 Alkaline Phosphatase 188 U/L (34-104) H 05/16/17 04:13 Ammonia 45 umol/L (16-53) 05/12/17 04:40 Creatine Kinase 136 U/L (30-223) 04/14/17 14:55 Troponin I 0.01 ng/mL (0.01-0.05) 04/22/17 05:04 C-Reactive Protein 27.5 mg/dL (0.0-0.9) H 05/15/17 04:29 B-Natriuretic Peptide 20.7 pg/mL (5.0-100.0) 05/13/17 04:27 Total Protein 6.2 gm/dL (6.0-8.3) 05/16/17 04:13 Albumin 1.7 gm/dL (4.2-5.5) L 05/16/17 04:13 Globulin 4.5 gm/dL 05/16/17 04:13 Albumin/Globulin Ratio 0.4 (1.0-1.8) L 05/16/17 04:13 Prealbumin 7 mg/dL (10-36) L 05/15/17 04:29 Triglycerides 281 mg/dL (<150) H 05/15/17 04:29 Cholesterol 91 mg/dL (<200) 05/12/17 04:40 LDL Cholesterol Direct 38 mg/dL (75-193) L 04/14/17 14:55 HDL Cholesterol 13 mg/dL (23-92) L 04/14/17 14:55 Amylase 53 U/L (29-103) 05/09/17 06:00 Lipase 85 U/L (11-82) H 05/09/17 06:00 Urine Source SEN PORT 05/03/17 13:38 Urine Color YELLOW 05/03/17 13:38 Urine Clarity TURBID (CLEAR) 05/03/17 13:38 Urine pH 7.5 05/03/17 13:38 Ur Specific [place] 1.010 (1.005-1.030) 05/03/17 13:38 Urine Protein NEGATIVE mg/dL (NEGATIVE) 05/03/17 13:38 Urine Glucose (UA) NEGATIVE mg/dL (NEGATIVE) 05/03/17 13:38 Urine Ketones NEGATIVE mg/dL (NEGATIVE) 05/03/17 13:38 Urine Blood MODERATE (NEGATIVE) H 05/03/17 13:38 Urine Nitrate NEGATIVE (NEGATIVE) 05/03/17 13:38 Urine Bilirubin NEGATIVE (NEGATIVE) 05/03/17 13:38 Urine Urobilinogen 0.2 E.U./dL (0.2 - 1.0) 05/03/17 13:38 Ur Leukocyte Esterase TRACE (NEGATIVE) H 05/03/17 13:38 Urine RBC 50-100 /hpf (0-5) H 05/03/17 13:38 Urine WBC 6-10 /hpf (0-5) H 05/03/17 13:38 Ur Epithelial Cells FEW /lpf (FEW) 05/03/17 13:38 Amorphous Sediment MANY URATES (NONE SEEN) 04/14/17 15:05 Urine Bacteria FEW /hpf (NONE SEEN) 05/03/17 13:38 Vancomycin Trough 13.5 ug/mL (10-20) 04/19/17 19:20 Helicobacter pylori Ab NEGATIVE (NEGATIVE) 05/04/17 10:05 Blood Type O POSITIVE 05/02/17 07:12 Antibody Screen NEGATIVE 05/02/17 07:12 Crossmatch See Detail 05/02/17 07:12 - Physical Exam Vitals and I&O: Vital Signs Temp 98.3 F 05/16/17 10:00 Pulse 88 05/16/17 10:00 Resp 28 05/16/17 10:00 BP 102/56 05/16/17 10:00 Pulse Ox 100 05/16/17 10:00 Intake & Output 05/15/17 05/16/17 05/16/17 18:59 06:59 18:59 Intake Total 3713.667 2785.333 Output Total 2550 1500 Balance 2105.127 0499.333 Weight (lbs) 99.138 kg 99.79 kg Intake: Intake, IV Amount 2453.667 2785.333 Amikacin 500 mg In 252 252 Dextrose 5% 250 ml @ 250 mls/hr IV Q12H ARIAN Rx#: [id number] D5-0.45NS 1,000 ml @ 40 1000 mls/hr IV .Q24H ARIAN Rx#: [id number] Multivitamin Inj 10 ml In 2101.667 1433.333 Dextrose 70% 1,740 ml In Amino Acids 10% 500 ml In Intralipids 20% 150 ml @ 100 mls/hr IV .Q24H ARIAN Rx#:[id number] Tigecycline 50 mg In 100 100 Sodium Chloride 0.9% 100 ml @ 100 mls/hr IV Q12HR ARIAN Rx#:[id number] Oral 0 TPN/PPN 1200 Other 60 Output: Gastric Drainage 100 50 Urine 2450 1400 Stool 0 Other 50 Active Medications: Current Medications Acetaminophen (Tylenol 650mg/20.3ml Suspension) 650 mg NG Q6H PRN PRN Reason: FEVER/PAIN Stop: 06/21/17 17:45 Last Admin: 05/15/17 09:50 Dose: 650 mg Albuterol/Ipratropium (Duoneb Neb) 3 ml HHN Q4HRT [facility] Stop: 06/15/17 14:59 Last Admin: 05/16/17 07:39 Dose: 3 ml Amiodarone HCl (Cordarone) 200 mg NG BID ARIAN Stop: 06/24/17 23:14 Last Admin: 05/16/17 08:14 Dose: Not Given Budesonide (Pulmicort) 0.5 mg HHN BIDRT [facility] Stop: 06/15/17 18:59 Last Admin: 05/16/17 07:39 Dose: 0.5 mg Chlorhexidine Gluconate (Peridex) 15 ml MM 08,1999 [facility] Stop: 06/30/17 19:59 Last Admin: 05/16/17 08:01 Dose: 15 ml Enalaprilat (Vasotec) 2.5 mg IVP Q4HR PRN PRN Reason: SBP>150 Stop: 07/06/17 15:59 Famotidine (Pepcid) 20 mg IVP Q6HR [facility] Stop: 07/06/17 11:59 Last Admin: 05/16/17 06:38 Dose: 20 mg Furosemide (Lasix) 40 mg IVP BID [facility] Stop: 07/12/17 16:59 Last Admin: 05/16/17 08:14 Dose: 40 mg Multivitamins/Minerals 10 ml/Dextrose/ Amino Acids/Electrolytes/ Fat Emulsion Intravenous 2,400 mls @ 100 mls/hr IV .Q24H [facility] Stop: 06/23/17 15:59 Last Infusion: 05/16/17 06:00 Dose: 100 mls/hr Dextrose/Sodium Chloride (D5-0.45ns) 1,000 mls @ 40 mls/hr IV .Q24H [facility] Stop: 06/23/17 15:59 Last Infusion: 05/16/17 06:00 Dose: Infused Norepinephrine Bitartrate 4 mg (/ Dextrose) 254 mls @ 0 mls/hr IV TITR PRN; Protocol; 0 MCG/MIN PRN Reason: BP MAINTENANCE (PER PROTOCOL) Stop: 06/30/17 09:25 Last Titration: 05/02/17 07:00 Dose: Infused Diltiazem HCl 125 mg/ Dextrose 125 mls @ 10 mls/hr IV TITR ARIAN; 10 MG/HR PRN Reason: Protocol Stop: 07/06/17 11:14 Last Titration: 05/11/17 18:00 Dose: 0 mg/hr, 0 mls/hr Tigecycline 50 mg/ Sodium (Chloride) 100 mls @ 100 mls/hr IV Q12HR [facility]AN Stop: 07/13/17 20:59 Last Admin: 05/16/17 08:12 Dose: 100 mls/hr Amikacin Sulfate 500 mg/ (Dextrose) 252 mls @ 250 mls/hr IV Q12H [facility]AN Stop: 07/13/17 20:29 Last Admin: 05/16/17 08:01 Dose: 250 mls/hr Insulin Aspart (Novolog Insulin Sliding Scale) 0 units SUBQ Q6HR [facility]AN PRN Reason: Protocol Stop: 06/16/17 17:59 Last Admin: 05/16/17 06:32 Dose: Not Given Lorazepam (Ativan) 1 mg IVP Q4HR PRN; Protocol PRN Reason: Agitation Stop: 07/13/17 02:57 Last Admin: 05/15/17 22:34 Dose: 1 mg Metoclopramide HCl (Reglan) 10 mg IVP Q8HR [facility]AN Stop: 07/06/17 20:59 Last Admin: 05/16/17 04:37 Dose: Not Given Metoprolol Tartrate (Lopressor) 25 mg PO BID [facility] Stop: 06/26/17 08:59 Last Admin: 05/16/17 08:15 Dose: Not Given Mineral Oil (Mineral Oil 30 Ml) 30 ml NG DAILY [facility] Stop: 07/04/17 12:29 Last Admin: 05/16/17 08:15 Dose: Not Given Miscellaneous (Tpn Per Pharmacy) 1 ea MC PRN PRN PRN Reason: PROTOCOL Stop: 06/16/17 12:28 Miscellaneous (Vte Chemical Prophylaxis Screen/ Admission) 1 ea MC PRN PRN PRN Reason: PROTOCOL Stop: 07/01/17 14:44 Miscellaneous (Amikacin Iv Per Pharmacy) 1 ea MC PRN PRN PRN Reason: PROTOCOL Stop: 07/13/17 18:39 Morphine Sulfate (Morphine) 2 mg IVP Q4H PRN PRN Reason: PAIN Stop: 07/11/17 16:49 Last Admin: 05/16/17 07:50 Dose: 2 mg General: Other (sedated and intubated.) HEENT: Atraumatic, PERRLA, EOMI, Mucous membr. moist/pink, Other (oral endotracheal tube,NG tube+) Neck: Supple, +2 carotid pulse wo bruit Cardiovascular: Regular rate, Normal S1, Normal S2 Lungs: Other (diffuse rhonchi.) Abdomen: Soft, Other ( wound VAC anterior open abdominal wall wound. L colostomy retracted but still functional w/ stool output.) Extremities: Edema, Other (no edema and cyanosis.) Neurological: Reflexes 2+, Other (Patient is intubated and sedated) Psych/Mental Status: Other (Sedated) - Procedures Procedures: Procedures Procedure Code Date BYPASS SIGMOID COLON TO CUTANEOUS, OPEN APPROACH [id number] 04/14/17 INSERT EMERGENCY AIRWAY 65760 04/14/17 INSERTION OF ENDOTRACHEAL AIRWAY INTO TRACHEA, VIA OPENING [id number] 04/14/17 PARTIAL REMOVAL OF COLON 40701 04/14/17 RESECTION OF SIGMOID COLON, OPEN APPROACH [id number] 04/14/17 RESPIRATORY VENTILATION, 24-96 CONSECUTIVE HOURS [id number] 04/14/17 VENT MGMT INPAT INIT DAY 38232 04/14/17 VENT MGMT INPAT SUBQ DAY 80228 04/14/17 Assessment/Plan - Problem List Patient Problems: All Active Problems Abscess of sigmoid colon due to diverticulitis (Acute) K57.20 Diverticulitis of sigmoid colon (Acute) K57.32 Obesity (Acute) E66.9 Perforation of sigmoid colon due to diverticulitis (Acute) K57.20 Peritonitis (acute) generalized (Acute) K65.0 - Assessment Assessment: POD#30; s/p ex lap, sigmoid colectomy, drainage of peritonitis, lysis adhesions , ROLANDO drain placement 04/14 icu status encephalopathic, confused, obtunded, intubated. continue IVfluids +TPN mild renal insufficiency, elevated BUN/creat dvt prophylaxis Lovenox SQ colostomy end necrosed and sloughed, severely retracted, but functional w/ stool output..... poor candidate for revision of colostomy open abd wound, wound vac in place, changed q 3days, wound marge, still some yellow slough. continue iv abx. sen cath supportive care.... s/w family; guarded prognosis. off vasopressors. EGD 05/04 results noted by Reyes/GI peptic ulcer disease, NGT trauma multiple prior CT abd/pelvis....postop changes, no obvious drainable intra-abd abscess or collections tachycardia, mild leukocytosis electrolyte derangement, renal f/u, fluid management. ok to give PO meds via NGT TF via NGT held, residuals high, NGT to suction moderate output [facility] is following recommended to family tracheostomy, EGD + PEG, change central line...Dr. Bro feels pt is high risk for extubation.....Dr. Bro recommends tracheostomy. will plan OR for early next week. CT abd/pelvis results noted, no obvious drainable abscess or collection, no free air. cardizem drip stopped continue wound vac to open abd wound. Nutritional Asmnt/Malnutr-PDOC - Dietary Evaluation Malnutrition Findings (Please click <Entered> for more info): Nutritional Asmnt/Malnutrition Start: 04/19/17 14: 21 Text: Status: Complete Freq: Document 04/19/17 14:21 GSUN (Rec: 04/19/17 14:58 [id number]) Nutritional Asmnt/Malnutrition Patient General Information Nutritional Screening Moderate Risk Screening Diagnosis Sepsis, diverticulitis, peritonitis Pertinent Medical Hx/Surgical Hx Asthma, diverticulosis Subjective Information 56 year old male frome home. Pt was restless, moving extremities during visit. 04/14 : sigmoid colectomy, end colostomy, abscess drainage, diffuse peritontis. 04/16: pt started PPN. 04/17: central line and started on TPN. Spoke to family at bedside, explained parenteral nutrition , family undersoto and has no further question at this time. Weight discrepancies noted in EMR, family does not know UBW , estimated nutritional needs based Current Diet Order/ Nutrition Support TPN D10% AA4.25% at 90ml/hr with IL20% 150ml, providing 1401.6kcal Pertinent Medications Dilaudid, Novolog, Culturelle, Magnesium Sulfate, Vancomycin , TPN, Morphine, Multivitamins , Zofran, Protonix, Nacl0.9% Pertinent Labs 04/14: triglycerides 106, total bilirubin 1.1H, glucose 116H 04/17: magnesium 2.5, phsophorus 3.2 04/19: magnesium 1.8L, phosphorus 2.4L, BUN 28H, creatinine 1.3, glucose 154H, total bilirubin 1.1H, triglycerides 238H Nutritional Hx/Data Height 1.7 m Height (Calculated Centimeters) 170.2 Current Weight (lbs) 95.254 kg Weight (Calculated Kilograms) 95.3 Weight (Calculated Grams) 79239.4 [place] Body Weight 148 Weight Status Overweight GI Symptoms Skin Integrity/Comment: [place] 14. Facial non-pitting 1+, bilateral hands pitting 1+ Estimated Nutritional Goals Calories/Kcals/Kg IBW 148/67.3kg Kcals Calculated 2018-2356kcal (30-35kcal/kg) Protein Calculated 101-135g (1.5-2g/kg) Fluid: ml Per MD Nutritional Problem 1. Problem Problem Altered GI function related to Etiology abscess and perforation of sigmoid colon due to diverticulitis aeb Signs/Symptoms: post-operative, on TPN Intervention/Recommendation Comments 1. Recommend TPN D15% AA5.5% at 100ml/hr with IL20% 150ml, providing 2400ml total volume, 2052kcal, 132g protein, meeting 100% of estimated nutritional needs. Carb load 2 .6mg/kg/min (using 210lb adm weight). 2. Monitor for possible refeeding syndrome, 04/18: phsophorus 2.1L, 04/19: magnesium 1.9. 3. Monitor triglycerides, total bilirubin, glucose, renal labs. Expected Outcomes/Goals Expected Outcomes/Goals 1. Pt to meet 100% of estimated nutritional needs on TPN.
[2017-05-16] MEDS ORDERED: Probiotic Screen MC PRN (10:38)
[2017-05-16 10:58] LABS: BAND NEUTROPHILE 1 % (0-10); EOSINOPHIL 23 % (0-5); NEUTROPHILS 51 % (40-80); TOTAL CELLS COUNTED 100
[2017-05-16 10:59] LABS: PLATELET ESTIMATE ADEQUATE (NORMAL); PLATELET MORPHOLOGY NORMAL (NORMAL)
--- NOTE | 2017-05-16 15:18 | General Progress Note ---
Subjective - Review of Systems Subjective: Patient is seen and examined. Patient currently on vent. Patient is sedated. Care plan reviewed and discussed with staff.. Objective - Results Result Diagrams: 05/16/17 04:13 05/16/17 04:13 Recent Labs: Laboratory Last Values WBC 11.6 Th/cmm (4.8-10.8) H 05/16/17 04:13 RBC 3.26 Mil/cmm (4.30-5.70) L 05/16/17 04:13 Hgb 8.8 gm/dL (13.2-17.3) L 05/16/17 04:13 Hct 26.5 % (39.0-49.0) L 05/16/17 04:13 MCV 81.3 fl (80-99) 05/16/17 04:13 MCH 26.9 pg (26.0-30.0) 05/16/17 04:13 MCHC Differential 33.1 pg (28.0-36.0) 05/16/17 04:13 RDW 17.4 % (11.5-20.0) 05/16/17 04:13 Plt Count 284 Th/cmm (150-400) 05/16/17 04:13 MPV 9.7 fl 05/16/17 04:13 Neutrophils % 61.3 % (40.0-80.0) 05/15/17 04:29 Band Neutrophils % 1 % (0-10) 05/16/17 04:13 Lymphocytes % 17.3 % (20.0-50.0) L 05/15/17 04:29 Monocytes % 8.6 % (2.0-10.0) 05/15/17 04:29 Eosinophils % 12.3 % (0.0-5.0) H 05/15/17 04:29 Basophils % 0.5 % (0.0-2.0) 05/15/17 04:29 Neutrophils (Manual) 51 % (40-80) 05/16/17 04:13 Lymphocytes 21 % (20-50) 05/16/17 04:13 Monocytes 4 % (2-10) 05/16/17 04:13 Eosinophils 23 % (0-5) H 05/16/17 04:13 Metamyelocytes 1 % (0-0) H 04/22/17 05:04 Platelet Estimate ADEQUATE (NORMAL) 05/16/17 04:13 Platelet Morphology NORMAL (NORMAL) 05/16/17 04:13 Anisocytosis 1+ 04/28/17 06:08 Microcytosis 1+ 05/02/17 05:15 RBC Morph Micro Appear NORMAL (NORMAL) 05/16/17 04:13 ESR > 140 mm/hr (0-20) H 04/20/17 07:00 PT 11.9 SECONDS (9.5-11.5) H 04/24/17 21:19 INR 1.13 (0.5-1.4) 04/24/17 21:19 PTT (Actin FS) 27.6 SECONDS (26.0-38.0) 04/24/17 21:19 Specimen Source Arterial 05/16/17 08:37 Sample Site Right Radial 05/16/17 08:37 pH 7.48 (7.35-7.45) H 05/16/17 08:37 pCO2 41.0 mmHg (35.0-45.0) 05/16/17 08:37 pO2 78.0 mmHg (80.0-100.0) L 05/16/17 08:37 HCO3 29.9 mEq/L (20.0-26.0) H 05/16/17 08:37 Base Excess 6.4 mEq/L (-3.0-3.0) H 05/16/17 08:37 O2 Saturation 96.0 % (92.0-100.0) 05/16/17 08:37 Chau Test Positive 05/16/17 08:37 Vent Rate 16 05/16/17 08:37 Inspired O2 30 05/16/17 08:37 Tidal Volume 450 05/16/17 08:37 PEEP 3 05/16/17 08:37 Pressure (ins/psv/peep) NA 05/16/17 08:37 Critical Value LZHANG 05/16/17 08:37 Sodium 150 mEq/L (136-145) H 05/16/17 04:13 Potassium 3.8 mEq/L (3.5-5.1) 05/16/17 04:13 Chloride 118 mEq/L (98-107) H 05/16/17 04:13 Carbon Dioxide 29.5 mEq/L (21.0-31.0) 05/16/17 04:13 Anion Gap 6.3 (7.0-16.0) L 05/16/17 04:13 BUN 67 mg/dL (7-25) H 05/16/17 04:13 Creatinine 1.5 mg/dL (0.7-1.3) H 05/16/17 04:13 Est GFR ( Amer) > 60.0 ml/min (>90) 05/16/17 04:13 Est GFR (Non-Af Amer) 51.3 ml/min 05/16/17 04:13 BUN/Creatinine Ratio 44.7 05/16/17 04:13 Glucose 141 mg/dL (70-105) H 05/16/17 04:13 POC Glucose 138 MG/DL (70 - 105) H 05/16/17 11:17 Hemoglobin A1c % 6.7 % (4.0-6.0) H 04/22/17 05:04 Whole Bld Lactic Acid 1.66 mmol/L (0.60-1.99) 05/12/17 04:40 Uric Acid 3.6 mg/dL (4.4-7.6) L 04/20/17 07:00 Calcium 10.7 mg/dL (8.6-10.3) H 05/16/17 04:13 Phosphorus 4.5 mg/dL (2.5-5.0) 05/16/17 04:13 Magnesium 2.2 mg/dL (1.9-2.7) 05/16/17 04:13 Total Bilirubin 0.6 mg/dL (0.3-1.0) 05/16/17 04:13 Direct Bilirubin 0.13 mg/dL (0.0-0.2) 05/13/17 04:27 AST 78 U/L (13-39) H 05/16/17 04:13 ALT 36 U/L (7-52) 05/16/17 04:13 Alkaline Phosphatase 188 U/L (34-104) H 05/16/17 04:13 Ammonia 45 umol/L (16-53) 05/12/17 04:40 Creatine Kinase 136 U/L (30-223) 04/14/17 14:55 Troponin I 0.01 ng/mL (0.01-0.05) 04/22/17 05:04 C-Reactive Protein 27.5 mg/dL (0.0-0.9) H 05/15/17 04:29 B-Natriuretic Peptide 20.7 pg/mL (5.0-100.0) 05/13/17 04:27 Total Protein 6.2 gm/dL (6.0-8.3) 05/16/17 04:13 Albumin 1.7 gm/dL (4.2-5.5) L 05/16/17 04:13 Globulin 4.5 gm/dL 05/16/17 04:13 Albumin/Globulin Ratio 0.4 (1.0-1.8) L 05/16/17 04:13 Prealbumin 7 mg/dL (10-36) L 05/15/17 04:29 Triglycerides 281 mg/dL (<150) H 05/15/17 04:29 Cholesterol 91 mg/dL (<200) 05/12/17 04:40 LDL Cholesterol Direct 38 mg/dL (75-193) L 04/14/17 14:55 HDL Cholesterol 13 mg/dL (23-92) L 04/14/17 14:55 Amylase 53 U/L (29-103) 05/09/17 06:00 Lipase 85 U/L (11-82) H 05/09/17 06:00 Urine Source [place] 05/03/17 13:38 Urine Color YELLOW 05/03/17 13:38 Urine Clarity TURBID (CLEAR) 05/03/17 13:38 Urine pH 7.5 05/03/17 13:38 Ur Specific [place] 1.010 (1.005-1.030) 05/03/17 13:38 Urine Protein NEGATIVE mg/dL (NEGATIVE) 05/03/17 13:38 Urine Glucose (UA) NEGATIVE mg/dL (NEGATIVE) 05/03/17 13:38 Urine Ketones NEGATIVE mg/dL (NEGATIVE) 05/03/17 13:38 Urine Blood MODERATE (NEGATIVE) H 05/03/17 13:38 Urine Nitrate NEGATIVE (NEGATIVE) 05/03/17 13:38 Urine Bilirubin NEGATIVE (NEGATIVE) 05/03/17 13:38 Urine Urobilinogen 0.2 E.U./dL (0.2 - 1.0) 05/03/17 13:38 Ur Leukocyte Esterase TRACE (NEGATIVE) H 05/03/17 13:38 Urine RBC 50-100 /hpf (0-5) H 05/03/17 13:38 Urine WBC 6-10 /hpf (0-5) H 05/03/17 13:38 Ur Epithelial Cells FEW /lpf (FEW) 05/03/17 13:38 Amorphous Sediment MANY URATES (NONE SEEN) 04/14/17 15:05 Urine Bacteria FEW /hpf (NONE SEEN) 05/03/17 13:38 Vancomycin Trough 13.5 ug/mL (10-20) 04/19/17 19:20 Helicobacter pylori Ab NEGATIVE (NEGATIVE) 05/04/17 10:05 Blood Type O POSITIVE 05/02/17 07:12 Antibody Screen NEGATIVE 05/02/17 07:12 Crossmatch See Detail 05/02/17 07:12 - Physical Exam Vitals and I&O: Vital Signs Temp 98 F 05/16/17 14:00 Pulse 89 05/16/17 15:00 Resp 32 05/16/17 14:00 BP 96/48 05/16/17 14:00 Pulse Ox 100 05/16/17 15:00 Intake & Output 05/15/17 05/16/17 05/16/17 18:59 06:59 18:59 Intake Total 3713.667 2785.333 352 Output Total 2550 1500 Balance 7243.094 6005.333 352 Weight (lbs) 99.138 kg 99.79 kg Intake: Intake, IV Amount 2453.667 2785.333 352 Amikacin 500 mg In 252 252 252 Dextrose 5% 250 ml @ 250 mls/hr IV Q12H [facility] Rx#: [id number] D5-0.45NS 1,000 ml @ 40 1000 mls/hr IV .Q24H ARIAN Rx#: [id number] Multivitamin Inj 10 ml In 2101.667 1433.333 Dextrose 70% 1,740 ml In Amino Acids 10% 500 ml In Intralipids 20% 150 ml @ 100 mls/hr IV .Q24H [facility]AN Rx#:[id number] Tigecycline 50 mg In 100 100 100 Sodium Chloride 0.9% 100 ml @ 100 mls/hr IV Q12HR [facility] Rx#:[id number] Oral 0 TPN/PPN 1200 Other 60 Output: Gastric Drainage 100 50 Urine 2450 1400 Stool 0 Other 50 Active Medications: Current Medications Acetaminophen (Tylenol 650mg/20.3ml Suspension) 650 mg NG Q6H PRN PRN Reason: FEVER/PAIN Stop: 06/21/17 17:45 Last Admin: 05/15/17 09:50 Dose: 650 mg Albuterol/Ipratropium (Duoneb Neb) 3 ml HHN Q4HRT [facility] Stop: 06/15/17 14:59 Last Admin: 05/16/17 15:00 Dose: 3 ml Amiodarone HCl (Cordarone) 200 mg NG BID [facility] Stop: 06/24/17 23:14 Last Admin: 05/16/17 08:14 Dose: Not Given Budesonide (Pulmicort) 0.5 mg HHN BIDRT [facility] Stop: 06/15/17 18:59 Last Admin: 05/16/17 07:39 Dose: 0.5 mg Chlorhexidine Gluconate (Peridex) 15 ml MM 08,1999 [facility] Stop: 06/30/17 19:59 Last Admin: 05/16/17 08:01 Dose: 15 ml Enalaprilat (Vasotec) 2.5 mg IVP Q4HR PRN PRN Reason: SBP>150 Stop: 07/06/17 15:59 Famotidine (Pepcid) 20 mg IVP Q6HR [facility] Stop: 07/06/17 11:59 Last Admin: 05/16/17 11:38 Dose: 20 mg Furosemide (Lasix) 40 mg IVP BID [facility] Stop: 07/12/17 16:59 Last Admin: 05/16/17 08:14 Dose: 40 mg Multivitamins/Minerals 10 ml/Dextrose/ Amino Acids/Electrolytes/ Fat Emulsion Intravenous 2,400 mls @ 100 mls/hr IV .Q24H [facility] Stop: 06/23/17 15:59 Last Infusion: 05/16/17 06:00 Dose: 100 mls/hr Dextrose/Sodium Chloride (D5-0.45ns) 1,000 mls @ 40 mls/hr IV .Q24H [facility] Stop: 06/23/17 15:59 Last Infusion: 05/16/17 06:00 Dose: Infused Norepinephrine Bitartrate 4 mg (/ Dextrose) 254 mls @ 0 mls/hr IV TITR PRN; Protocol; 0 MCG/MIN PRN Reason: BP MAINTENANCE (PER PROTOCOL) Stop: 06/30/17 09:25 Last Titration: 05/02/17 07:00 Dose: Infused Diltiazem HCl 125 mg/ Dextrose 125 mls @ 10 mls/hr IV TITR [facility]AN; 10 MG/HR PRN Reason: Protocol Stop: 07/06/17 11:14 Last Titration: 05/11/17 18:00 Dose: 0 mg/hr, 0 mls/hr Tigecycline 50 mg/ Sodium (Chloride) 100 mls @ 100 mls/hr IV Q12HR [facility] Stop: 07/13/17 20:59 Last Infusion: 05/16/17 09:15 Dose: Infused Insulin Aspart (Novolog Insulin Sliding Scale) 0 units SUBQ Q6HR [facility] PRN Reason: Protocol Stop: 06/16/17 17:59 Last Admin: 05/16/17 11:38 Dose: Not Given Lactobacillus Rhamnosus (Culturelle) 1 each PO DAILY [facility] Stop: 07/16/17 08:59 Lorazepam (Ativan) 1 mg IVP Q4HR PRN; Protocol PRN Reason: Agitation Stop: 07/13/17 02:57 Last Admin: 05/15/17 22:34 Dose: 1 mg Metoclopramide HCl (Reglan) 10 mg IVP Q8HR [facility] Stop: 07/06/17 20:59 Last Admin: 05/16/17 12:12 Dose: 10 mg Metoprolol Tartrate (Lopressor) 25 mg PO BID [facility] Stop: 06/26/17 08:59 Last Admin: 05/16/17 08:15 Dose: Not Given Mineral Oil (Mineral Oil 30 Ml) 30 ml NG DAILY [facility] Stop: 07/04/17 12:29 Last Admin: 05/16/17 08:15 Dose: Not Given Miscellaneous (Tpn Per Pharmacy) 1 ea MC PRN PRN PRN Reason: PROTOCOL Stop: 06/16/17 12:28 Miscellaneous (Vte Chemical Prophylaxis Screen/ Admission) 1 ea MC PRN PRN PRN Reason: PROTOCOL Stop: 07/01/17 14:44 Miscellaneous (Amikacin Iv Per Pharmacy) 1 ea MC PRN PRN PRN Reason: PROTOCOL Stop: 07/13/17 18:39 Miscellaneous (Probiotic Screen) 1 ea MC PRN PRN PRN Reason: PROTOCOL Stop: 07/15/17 10:37 Morphine Sulfate (Morphine) 2 mg IVP Q4H PRN PRN Reason: PAIN Stop: 07/11/17 16:49 Last Admin: 05/16/17 07:50 Dose: 2 mg General: Other (sedated and intubated.) HEENT: Atraumatic, PERRLA, EOMI, Mucous membr. moist/pink, Other (oral endotracheal tube,NG tube+) Neck: Supple, +2 carotid pulse wo bruit Cardiovascular: Regular rate, Normal S1, Normal S2 Lungs: Other (diffuse rhonchi.) Abdomen: Soft, Other ( wound VAC anterior open abdominal wall wound. L colostomy retracted but still functional w/ stool output.) Extremities: Edema, Other (no edema and cyanosis.) Neurological: Reflexes 2+, Other (Patient is intubated and sedated) Psych/Mental Status: Other (Sedated) - Procedures Procedures: Procedures Procedure Code Date BYPASS SIGMOID COLON TO CUTANEOUS, OPEN APPROACH [id number] 04/14/17 INSERT EMERGENCY AIRWAY 78409 04/14/17 INSERTION OF ENDOTRACHEAL AIRWAY INTO TRACHEA, VIA OPENING [id number] 04/14/17 PARTIAL REMOVAL OF COLON 93450 04/14/17 RESECTION OF SIGMOID COLON, OPEN APPROACH [id number] 04/14/17 RESPIRATORY VENTILATION, 24-96 CONSECUTIVE HOURS [id number] 04/14/17 VENT MGMT INPAT INIT DAY 76076 04/14/17 VENT MGMT INPAT SUBQ DAY 55069 04/14/17 Assessment/Plan - Problem List Patient Problems: All Active Problems Abscess of sigmoid colon due to diverticulitis (Acute) K57.20 Diverticulitis of sigmoid colon (Acute) K57.32 Obesity (Acute) E66.9 Perforation of sigmoid colon due to diverticulitis (Acute) K57.20 Peritonitis (acute) generalized (Acute) K65.0 - Assessment Assessment: Current Active Problems Problem Status Onset Abscess of sigmoid colon due to diverticulitis Acute Diverticulitis of sigmoid colon Acute Obesity Acute Perforation of sigmoid colon due to diverticulitis Acute Peritonitis (acute) generalized Acute Perforated diverticulitis status post expiratory laparotomy and colostomy placement. Postoperative respiratory failure on vent. Obesity. MDROs organisms positive culture. GI bleed stable. Suspect developing ARDS. Polymicrobial peritonitis due to perforation.. Asthma. SVT currently on Cardizem drip Electrolyte imbalance. SEKOU . Encephalopathy due to metabolic and infectious etio. Open surgical wound with wound VAC. Altered mental status secondary to metabolic and infectious encephalopathy. Postop anemia. - Plan Plan: ICU status. Vent support. Nebulizer treatment. Pulmonary toilet. IV antibiotics as per ID. TPN. blood culture now and sputum gram stain C/S. Discussed with hypo dipper agreed with the tracheostomy. Needs PEG possible placement on Wednesday. Rate control with cardizem drip. Blood pressure control Wound care with wound VAC Surgical follow-up ID follow-up Cardiology follow-up Pulmonary follow-up ICU care. Symptoms management. Medication management. IV PPI. Monitor lab. Guarded prognosis. Chronic management of his medical illnesses. Care plan discussed with RN. Nutritional Asmnt/Malnutr-PDOC - Dietary Evaluation Malnutrition Findings (Please click <Entered> for more info): Nutritional Asmnt/Malnutrition Start: 04/19/17 14: 21 Text: Status: Complete Freq: Document 04/19/17 14:21 GSUN (Rec: 04/19/17 14:58 [id number]) Nutritional Asmnt/Malnutrition Patient General Information Nutritional Screening Moderate Risk Screening Diagnosis Sepsis, diverticulitis, peritonitis Pertinent Medical Hx/Surgical Hx Asthma, diverticulosis Subjective Information 56 year old male frome home. Pt was restless, moving extremities during visit. 04/14 : sigmoid colectomy, end colostomy, abscess drainage, diffuse peritontis. 04/16: pt started PPN. 04/17: central line and started on TPN. Spoke to family at bedside, explained parenteral nutrition , family undersoto and has no further question at this time. Weight discrepancies noted in EMR, family does not know UBW , estimated nutritional needs based Current Diet Order/ Nutrition Support TPN D10% AA4.25% at 90ml/hr with IL20% 150ml, providing 1401.6kcal Pertinent Medications Dilaudid, Novolog, Culturelle, Magnesium Sulfate, Vancomycin , TPN, Morphine, Multivitamins , Zofran, Protonix, Nacl0.9% Pertinent Labs 04/14: triglycerides 106, total bilirubin 1.1H, glucose 116H 04/17: magnesium 2.5, phsophorus 3.2 04/19: magnesium 1.8L, phosphorus 2.4L, BUN 28H, creatinine 1.3, glucose 154H, total bilirubin 1.1H, triglycerides 238H Nutritional Hx/Data Height 1.7 m Height (Calculated Centimeters) 170.2 Current Weight (lbs) 95.254 kg Weight (Calculated Kilograms) 95.3 Weight (Calculated Grams) 27115.4 [place] Body Weight 148 Weight Status Overweight GI Symptoms Skin Integrity/Comment: [place] 14. Facial non-pitting 1+, bilateral hands pitting 1+ Estimated Nutritional Goals Calories/Kcals/Kg IBW 148/67.3kg Kcals Calculated 2019-2356kcal (30-35kcal/kg) Protein Calculated 101-135g (1.5-2g/kg) Fluid: ml Per MD Nutritional Problem 1. Problem Problem Altered GI function related to Etiology abscess and perforation of sigmoid colon due to diverticulitis aeb Signs/Symptoms: post-operative, on TPN Intervention/Recommendation Comments 1. Recommend TPN D15% AA5.5% at 100ml/hr with IL20% 150ml, providing 2400ml total volume, 2052kcal, 132g protein, meeting 100% of estimated nutritional needs. Carb load 2 .6mg/kg/min (using 210lb adm weight). 2. Monitor for possible refeeding syndrome, 04/18: phsophorus 2.1L, 04/19: magnesium 1.9. 3. Monitor triglycerides, total bilirubin, glucose, renal labs. Expected Outcomes/Goals Expected Outcomes/Goals 1. Pt to meet 100% of estimated nutritional needs on TPN.
[2017-05-16] MEDS: TPN 10%-70% CUSTOM IV SCH (15:59)
--- NOTE | 2017-05-16 16:55 | Infectious Disease Prog Note ---
Infectious Disease Subjective - Review of Systems Service Date: 05/16/17 Subjective: cc psuedomonas pneumonia peritonitis hpi- pt on iv ba x reviewed c/s ros no fver o/e vss chest claer bd soft ext no edema dx pn/peritonitis plan tyradhabetsey panmaryann Infectious Disease Objective - Results Result Diagrams: 05/16/17 04:13 05/16/17 04:13 Recent Labs: Laboratory Last Values WBC 11.6 Th/cmm (4.8-10.8) H 05/16/17 04:13 RBC 3.26 Mil/cmm (4.30-5.70) L 05/16/17 04:13 Hgb 8.8 gm/dL (13.2-17.3) L 05/16/17 04:13 Hct 26.5 % (39.0-49.0) L 05/16/17 04:13 MCV 81.3 fl (80-99) 05/16/17 04:13 MCH 26.9 pg (26.0-30.0) 05/16/17 04:13 MCHC Differential 33.1 pg (28.0-36.0) 05/16/17 04:13 RDW 17.4 % (11.5-20.0) 05/16/17 04:13 Plt Count 284 Th/cmm (150-400) 05/16/17 04:13 MPV 9.7 fl 05/16/17 04:13 Neutrophils % 61.3 % (40.0-80.0) 05/15/17 04:29 Band Neutrophils % 1 % (0-10) 05/16/17 04:13 Lymphocytes % 17.3 % (20.0-50.0) L 05/15/17 04:29 Monocytes % 8.6 % (2.0-10.0) 05/15/17 04:29 Eosinophils % 12.3 % (0.0-5.0) H 05/15/17 04:29 Basophils % 0.5 % (0.0-2.0) 05/15/17 04:29 Neutrophils (Manual) 51 % (40-80) 05/16/17 04:13 Lymphocytes 21 % (20-50) 05/16/17 04:13 Monocytes 4 % (2-10) 05/16/17 04:13 Eosinophils 23 % (0-5) H 05/16/17 04:13 Metamyelocytes 1 % (0-0) H 04/22/17 05:04 Platelet Estimate ADEQUATE (NORMAL) 05/16/17 04:13 Platelet Morphology NORMAL (NORMAL) 05/16/17 04:13 Anisocytosis 1+ 04/28/17 06:08 Microcytosis 1+ 05/02/17 05:15 RBC Morph Micro Appear NORMAL (NORMAL) 05/16/17 04:13 ESR > 140 mm/hr (0-20) H 04/20/17 07:00 PT 11.9 SECONDS (9.5-11.5) H 04/24/17 21:19 INR 1.13 (0.5-1.4) 04/24/17 21:19 PTT (Actin FS) 27.6 SECONDS (26.0-38.0) 04/24/17 21:19 Specimen Source Arterial 05/16/17 08:37 Sample Site Right Radial 05/16/17 08:37 pH 7.48 (7.35-7.45) H 05/16/17 08:37 pCO2 41.0 mmHg (35.0-45.0) 05/16/17 08:37 pO2 78.0 mmHg (80.0-100.0) L 05/16/17 08:37 HCO3 29.9 mEq/L (20.0-26.0) H 05/16/17 08:37 Base Excess 6.4 mEq/L (-3.0-3.0) H 05/16/17 08:37 O2 Saturation 96.0 % (92.0-100.0) 05/16/17 08:37 Chau Test Positive 05/16/17 08:37 Vent Rate 16 05/16/17 08:37 Inspired O2 30 05/16/17 08:37 Tidal Volume 450 05/16/17 08:37 PEEP 3 05/16/17 08:37 Pressure (ins/psv/peep) NA 05/16/17 08:37 Critical Value LZHANG 05/16/17 08:37 Sodium 150 mEq/L (136-145) H 05/16/17 04:13 Potassium 3.8 mEq/L (3.5-5.1) 05/16/17 04:13 Chloride 118 mEq/L (98-107) H 05/16/17 04:13 Carbon Dioxide 29.5 mEq/L (21.0-31.0) 05/16/17 04:13 Anion Gap 6.3 (7.0-16.0) L 05/16/17 04:13 BUN 67 mg/dL (7-25) H 05/16/17 04:13 Creatinine 1.5 mg/dL (0.7-1.3) H 05/16/17 04:13 Est GFR ( Amer) > 60.0 ml/min (>90) 05/16/17 04:13 Est GFR (Non-Af Amer) 51.3 ml/min 05/16/17 04:13 BUN/Creatinine Ratio 44.7 05/16/17 04:13 Glucose 141 mg/dL (70-105) H 05/16/17 04:13 POC Glucose 138 MG/DL (70 - 105) H 05/16/17 11:17 Hemoglobin A1c % 6.7 % (4.0-6.0) H 04/22/17 05:04 Whole Bld Lactic Acid 1.66 mmol/L (0.60-1.99) 05/12/17 04:40 Uric Acid 3.6 mg/dL (4.4-7.6) L 04/20/17 07:00 Calcium 10.7 mg/dL (8.6-10.3) H 05/16/17 04:13 Phosphorus 4.5 mg/dL (2.5-5.0) 05/16/17 04:13 Magnesium 2.2 mg/dL (1.9-2.7) 05/16/17 04:13 Total Bilirubin 0.6 mg/dL (0.3-1.0) 05/16/17 04:13 Direct Bilirubin 0.13 mg/dL (0.0-0.2) 05/13/17 04:27 AST 78 U/L (13-39) H 05/16/17 04:13 ALT 36 U/L (7-52) 05/16/17 04:13 Alkaline Phosphatase 188 U/L (34-104) H 05/16/17 04:13 Ammonia 45 umol/L (16-53) 05/12/17 04:40 Creatine Kinase 136 U/L (30-223) 04/14/17 14:55 Troponin I 0.01 ng/mL (0.01-0.05) 04/22/17 05:04 C-Reactive Protein 27.5 mg/dL (0.0-0.9) H 05/15/17 04:29 B-Natriuretic Peptide 20.7 pg/mL (5.0-100.0) 05/13/17 04:27 Total Protein 6.2 gm/dL (6.0-8.3) 05/16/17 04:13 Albumin 1.7 gm/dL (4.2-5.5) L 05/16/17 04:13 Globulin 4.5 gm/dL 05/16/17 04:13 Albumin/Globulin Ratio 0.4 (1.0-1.8) L 05/16/17 04:13 Prealbumin 7 mg/dL (10-36) L 05/15/17 04:29 Triglycerides 281 mg/dL (<150) H 05/15/17 04:29 Cholesterol 91 mg/dL (<200) 05/12/17 04:40 LDL Cholesterol Direct 38 mg/dL (75-193) L 04/14/17 14:55 HDL Cholesterol 13 mg/dL (23-92) L 04/14/17 14:55 Amylase 53 U/L (29-103) 05/09/17 06:00 Lipase 85 U/L (11-82) H 05/09/17 06:00 Urine Source [place] 05/03/17 13:38 Urine Color YELLOW 05/03/17 13:38 Urine Clarity TURBID (CLEAR) 05/03/17 13:38 Urine pH 7.5 05/03/17 13:38 Ur Specific Adrian 1.010 (1.005-1.030) 05/03/17 13:38 Urine Protein NEGATIVE mg/dL (NEGATIVE) 05/03/17 13:38 Urine Glucose (UA) NEGATIVE mg/dL (NEGATIVE) 05/03/17 13:38 Urine Ketones NEGATIVE mg/dL (NEGATIVE) 05/03/17 13:38 Urine Blood MODERATE (NEGATIVE) H 05/03/17 13:38 Urine Nitrate NEGATIVE (NEGATIVE) 05/03/17 13:38 Urine Bilirubin NEGATIVE (NEGATIVE) 05/03/17 13:38 Urine Urobilinogen 0.2 E.U./dL (0.2 - 1.0) 05/03/17 13:38 Ur Leukocyte Esterase TRACE (NEGATIVE) H 05/03/17 13:38 Urine RBC 50-100 /hpf (0-5) H 05/03/17 13:38 Urine WBC 6-10 /hpf (0-5) H 05/03/17 13:38 Ur Epithelial Cells FEW /lpf (FEW) 05/03/17 13:38 Amorphous Sediment MANY URATES (NONE SEEN) 04/14/17 15:05 Urine Bacteria FEW /hpf (NONE SEEN) 05/03/17 13:38 Vancomycin Trough 13.5 ug/mL (10-20) 04/19/17 19:20 Helicobacter pylori Ab NEGATIVE (NEGATIVE) 05/04/17 10:05 Blood Type O POSITIVE 05/02/17 07:12 Antibody Screen NEGATIVE 05/02/17 07:12 Crossmatch See Detail 05/02/17 07:12 - Physical Exam Vitals and I&O: Vital Signs Temp 98.6 F 05/16/17 16:00 Pulse 90 05/16/17 16:17 Resp 28 05/16/17 16:00 BP 105/60 05/16/17 16:17 Pulse Ox 100 05/16/17 16:00 Intake & Output 05/15/17 05/16/17 05/16/17 18:59 06:59 18:59 Intake Total 3713.667 2785.333 1318.667 Output Total 2550 1500 Balance 1383.064 2192.333 1318.667 Weight (lbs) 99.138 kg 99.79 kg Intake: Intake, IV Amount 2453.667 2785.333 1318.667 Amikacin 500 mg In 252 252 252 Dextrose 5% 250 ml @ 250 mls/hr IV Q12H ARIAN Rx#: [id number] D5-0.45NS 1,000 ml @ 40 1000 mls/hr IV .Q24H ARIAN Rx#: [id number] Multivitamin Inj 10 ml In 2101.667 1433.333 966.667 Dextrose 70% 1,740 ml In Amino Acids 10% 500 ml In Intralipids 20% 150 ml @ 100 mls/hr IV .Q24H ARIAN Rx#:[id number] Tigecycline 50 mg In 100 100 100 Sodium Chloride 0.9% 100 ml @ 100 mls/hr IV Q12HR ARIAN Rx#:[id number] Oral 0 TPN/PPN 1200 Other 60 Output: Gastric Drainage 100 50 Urine 2450 1400 Stool 0 Other 50 Active Medications: Current Medications Acetaminophen (Tylenol 650mg/20.3ml Suspension) 650 mg NG Q6H PRN PRN Reason: FEVER/PAIN Stop: 06/21/17 17:45 Last Admin: 05/15/17 09:50 Dose: 650 mg Albuterol/Ipratropium (Duoneb Neb) 3 ml HHN Q4HRT ARIAN Stop: 06/15/17 14:59 Last Admin: 05/16/17 15:00 Dose: 3 ml Amiodarone HCl (Cordarone) 200 mg NG BID ARIAN Stop: 06/24/17 23:14 Last Admin: 05/16/17 16:16 Dose: Not Given Budesonide (Pulmicort) 0.5 mg HHN BIDRT ARIAN Stop: 06/15/17 18:59 Last Admin: 05/16/17 07:39 Dose: 0.5 mg Chlorhexidine Gluconate (Peridex) 15 ml MM 08,1999 ARIAN Stop: 06/30/17 19:59 Last Admin: 05/16/17 08:01 Dose: 15 ml Enalaprilat (Vasotec) 2.5 mg IVP Q4HR PRN PRN Reason: SBP>150 Stop: 07/06/17 15:59 Famotidine (Pepcid) 20 mg IVP Q6HR ARIAN Stop: 07/06/17 11:59 Last Admin: 05/16/17 11:38 Dose: 20 mg Furosemide (Lasix) 40 mg IVP BID ARIAN Stop: 07/12/17 16:59 Last Admin: 05/16/17 16:15 Dose: 40 mg Multivitamins/Minerals 10 ml/Dextrose/ Amino Acids/Electrolytes/ Fat Emulsion Intravenous 2,400 mls @ 100 mls/hr IV .Q24H [facility] Stop: 06/23/17 15:59 Last Admin: 05/16/17 15:59 Dose: 100 mls/hr Dextrose/Sodium Chloride (D5-0.45ns) 1,000 mls @ 40 mls/hr IV .Q24H ARIAN Stop: 06/23/17 15:59 Last Infusion: 05/16/17 06:00 Dose: Infused Norepinephrine Bitartrate 4 mg (/ Dextrose) 254 mls @ 0 mls/hr IV TITR PRN; Protocol; 0 MCG/MIN PRN Reason: BP MAINTENANCE (PER PROTOCOL) Stop: 06/30/17 09:25 Last Titration: 05/02/17 07:00 Dose: Infused Diltiazem HCl 125 mg/ Dextrose 125 mls @ 10 mls/hr IV TITR ARIAN; 10 MG/HR PRN Reason: Protocol Stop: 07/06/17 11:14 Last Titration: 05/11/17 18:00 Dose: 0 mg/hr, 0 mls/hr Tigecycline 50 mg/ Sodium (Chloride) 100 mls @ 100 mls/hr IV Q12HR ARIAN Stop: 07/13/17 20:59 Last Infusion: 05/16/17 09:15 Dose: Infused Insulin Aspart (Novolog Insulin Sliding Scale) 0 units SUBQ Q6HR ARIAN PRN Reason: Protocol Stop: 06/16/17 17:59 Last Admin: 05/16/17 11:38 Dose: Not Given Lactobacillus Rhamnosus (Culturelle) 1 each PO DAILY ARIAN Stop: 07/16/17 08:59 Lorazepam (Ativan) 1 mg IVP Q4HR PRN; Protocol PRN Reason: Agitation Stop: 07/13/17 02:57 Last Admin: 05/16/17 15:57 Dose: 1 mg Metoclopramide HCl (Reglan) 10 mg IVP Q8HR ARIAN Stop: 07/06/17 20:59 Last Admin: 05/16/17 12:12 Dose: 10 mg Metoprolol Tartrate (Lopressor) 25 mg PO BID ARIAN Stop: 06/26/17 08:59 Last Admin: 05/16/17 16:17 Dose: Not Given Mineral Oil (Mineral Oil 30 Ml) 30 ml NG DAILY ARIAN Stop: 07/04/17 12:29 Last Admin: 05/16/17 08:15 Dose: Not Given Miscellaneous (Tpn Per Pharmacy) 1 ea PRN PRN PRN Reason: PROTOCOL Stop: 06/16/17 12:28 Miscellaneous (Vte Chemical Prophylaxis Screen/ Admission) 1 ea PRN PRN PRN Reason: PROTOCOL Stop: 07/01/17 14:44 Miscellaneous (Amikacin Iv Per Pharmacy) 1 ea PRN PRN PRN Reason: PROTOCOL Stop: 07/13/17 18:39 Miscellaneous (Probiotic Screen) 1 ea MC PRN PRN PRN Reason: PROTOCOL Stop: 07/15/17 10:37 Morphine Sulfate (Morphine) 2 mg IVP Q4H PRN PRN Reason: PAIN Stop: 07/11/17 16:49 Last Admin: 05/16/17 07:50 Dose: 2 mg - Procedures Procedures: Procedures Procedure Code Date BYPASS SIGMOID COLON TO CUTANEOUS, OPEN APPROACH [id number] 04/14/17 INSERT EMERGENCY AIRWAY 83758 04/14/17 INSERTION OF ENDOTRACHEAL AIRWAY INTO TRACHEA, VIA OPENING [id number] 04/14/17 PARTIAL REMOVAL OF COLON 58628 04/14/17 RESECTION OF SIGMOID COLON, OPEN APPROACH [id number] 04/14/17 RESPIRATORY VENTILATION, 24-96 CONSECUTIVE HOURS [id number] 04/14/17 VENT MGMT INPAT INIT DAY 51968 04/14/17 VENT MGMT INPAT SUBQ DAY 02849 04/14/17 Infectious Disease Assmt/Plan - Problem List Patient Problems: All Active Problems Abscess of sigmoid colon due to diverticulitis (Acute) K57.20 Diverticulitis of sigmoid colon (Acute) K57.32 Obesity (Acute) E66.9 Perforation of sigmoid colon due to diverticulitis (Acute) K57.20 Peritonitis (acute) generalized (Acute) K65.0 Nutritional Asmnt/Malnutr-PDOC - Dietary Evaluation Malnutrition Findings (Please click <Entered> for more info): Nutritional Asmnt/Malnutrition Start: 04/19/17 14: 21 Text: Status: Complete Freq: Document 04/19/17 14:21 GSUN (Rec: 04/19/17 14:58 [id number]) Nutritional Asmnt/Malnutrition Patient General Information Nutritional Screening Moderate Risk Screening Diagnosis Sepsis, diverticulitis, peritonitis Pertinent Medical Hx/Surgical Hx Asthma, diverticulosis Subjective Information 56 year old male frome home. Pt was restless, moving extremities during visit. 04/14 : sigmoid colectomy, end colostomy, abscess drainage, diffuse peritontis. 04/16: pt started PPN. 04/17: central line and started on TPN. Spoke to family at bedside, explained parenteral nutrition , family undersoto and has no further question at this time. Weight discrepancies noted in EMR, family does not know UBW , estimated nutritional needs based Current Diet Order/ Nutrition Support TPN D10% AA4.25% at 90ml/hr with IL20% 150ml, providing 1401.6kcal Pertinent Medications Dilaudid, Novolog, Culturelle, Magnesium Sulfate, Vancomycin , TPN, Morphine, Multivitamins , Zofran, Protonix, Nacl0.9% Pertinent Labs 04/14: triglycerides 106, total bilirubin 1.1H, glucose 116H 04/17: magnesium 2.5, phsophorus 3.2 04/19: magnesium 1.8L, phosphorus 2.4L, BUN 28H, creatinine 1.3, glucose 154H, total bilirubin 1.1H, triglycerides 238H Nutritional Hx/Data Height 1.7 m Height (Calculated Centimeters) 170.2 Current Weight (lbs) 95.254 kg Weight (Calculated Kilograms) 95.3 Weight (Calculated Grams) 41277.4 [place] Body Weight 148 Weight Status Overweight GI Symptoms Skin Integrity/Comment: [place] 14. Facial non-pitting 1+, bilateral hands pitting 1+ Estimated Nutritional Goals Calories/Kcals/Kg IBW 148/67.3kg Kcals Calculated 2019-2356kcal (30-35kcal/kg) Protein Calculated 101-135g (1.5-2g/kg) Fluid: ml Per MD Nutritional Problem 1. Problem Problem Altered GI function related to Etiology abscess and perforation of sigmoid colon due to diverticulitis aeb Signs/Symptoms: post-operative, on TPN Intervention/Recommendation Comments 1. Recommend TPN D15% AA5.5% at 100ml/hr with IL20% 150ml, providing 2400ml total volume, 2052kcal, 132g protein, meeting 100% of estimated nutritional needs. Carb load 2 .6mg/kg/min (using 210lb adm weight). 2. Monitor for possible refeeding syndrome, 04/18: phsophorus 2.1L, 04/19: magnesium 1.9. 3. Monitor triglycerides, total bilirubin, glucose, renal labs. Expected Outcomes/Goals Expected Outcomes/Goals 1. Pt to meet 100% of estimated nutritional needs on TPN.
[2017-05-17] MEDS: INSULIN ASPART SLIDING SCALE 100 UNITS/ML UNIT SUBQ SCH ×4 (00:04→17:20)
[2017-05-17] MEDS: Morphine Sulfate 4 mg/mL 1mL Syr IVP PRN ×3 (00:53→15:30)
--- NOTE | 2017-05-17 01:30 | Progress Notes ---
DATE: 05/16/2017 PROBLEM: 1. Persistent respiratory failure. 2. Encephalopathy status. 3. Abdominal sepsis. 4. Obstructive sleep apnea syndrome. SYMPTOMS: Nil, not communicative, encephalopathic, barely opens eyes. No respiratory distress, etc. Periodic episode of tachypnea. PHYSICAL EXAMINATION: VITAL SIGNS: Temperature is 97.8, blood pressure is 96/78, saturation 100% on 30% of assist control 14. NECK: Veins not visualized. CHEST: Shows diminished air entry. No adventitious breath sounds. HEART: Regular. ABDOMEN: Shows still guarding lower abdomen. EXTREMITIES: Shows no peripheral edema. LABORATORY DATA: White count is 11.6, hemoglobin ____. ABG, pO2 of 78 and sodium is 150. ASSESSMENT: The patient clinically not much changed, continues to be encephalopathic, respiratory failure, tachypneic, tachycardic. PLANS AND SUGGESTIONS: We will go ahead and continue current treatment. Chest x-ray finding was noted. Discussed with Dr. Kahn as well as discussed with the family members and licensed social worker, and awaiting for tracheostomy with ____ trach would be preferable and go from there. JOB# [id number]
[2017-05-17] MEDS: Albuterol/Ipratropium Neb 3 ML AERS HHN SCH ×5 (03:21→22:40)
[2017-05-17] MEDS: Metoclopramide 5 mg/mL 2mL Vial IVP SCH ×3 (04:30→20:55)
[2017-05-17 05:26] LABS: HEMOGLOBIN 9.1 gm/dL (13.2-17.3); WHITE BLOOD COUNT 10.3 Th/cmm (4.8-10.8)
[2017-05-17 05:39] LABS: HEMATOCRIT 27.4 % (39.0-49.0); MEAN CELL VOLUME 81.4 fl (80-99); MEAN CORPUSCULAR HEMOGLOBIN 26.9 pg (26.0-30.0); MEAN CORPUSCULAR HGB CONC 33.1 pg (28.0-36.0); RED BLOOD COUNT 3.37 Mil/cmm (4.30-5.70); RED CELL DISTRIBUTION WIDTH 17.1 % (11.5-20.0)
[2017-05-17 05:48] LABS: ALB/GLOB RATIO 0.4 (1.0-1.8); ANION GAP 7.3 (7.0-16.0); BILIRUBIN,TOTAL 0.6 mg/dL (0.3-1.0); BUN/CREATININE RATIO 46.9; CALCIUM SERUM 10.4 mg/dL (8.6-10.3); CARBON DIOXIDE 28.5 mEq/L (21.0-31.0); CREATININE - SERUM 1.6 mg/dL (0.7-1.3); PHOSPHOROUS 5.5 mg/dL (2.5-5.0); POTASSIUM SERUM 3.8 mEq/L (3.5-5.1)
[2017-05-17 05:51] LABS: PLATELET COUNT 224 Th/cmm (150-400)
--- NOTE | 2017-05-17 07:21 | General Progress Note ---
Subjective - Review of Systems Service Date: 05/17/17 Subjective: encephalopathy, obtunded, nonverbal Objective - Results Result Diagrams: 05/17/17 04:25 05/17/17 04:25 Recent Labs: Laboratory Last Values WBC 10.3 Th/cmm (4.8-10.8) 05/17/17 04:25 RBC 3.37 Mil/cmm (4.30-5.70) L 05/17/17 04:25 Hgb 9.1 gm/dL (13.2-17.3) L 05/17/17 04:25 Hct 27.4 % (39.0-49.0) L 05/17/17 04:25 MCV 81.4 fl (80-99) 05/17/17 04:25 MCH 26.9 pg (26.0-30.0) 05/17/17 04:25 MCHC Differential 33.1 pg (28.0-36.0) 05/17/17 04:25 RDW 17.1 % (11.5-20.0) 05/17/17 04:25 Plt Count 224 Th/cmm (150-400) D 05/17/17 04:25 MPV 10.0 fl 05/17/17 04:25 Neutrophils % 61.3 % (40.0-80.0) 05/15/17 04:29 Band Neutrophils % 1 % (0-10) 05/16/17 04:13 Lymphocytes % 17.3 % (20.0-50.0) L 05/15/17 04:29 Monocytes % 8.6 % (2.0-10.0) 05/15/17 04:29 Eosinophils % 12.3 % (0.0-5.0) H 05/15/17 04:29 Basophils % 0.5 % (0.0-2.0) 05/15/17 04:29 Neutrophils (Manual) 51 % (40-80) 05/16/17 04:13 Lymphocytes 21 % (20-50) 05/16/17 04:13 Monocytes 4 % (2-10) 05/16/17 04:13 Eosinophils 23 % (0-5) H 05/16/17 04:13 Metamyelocytes 1 % (0-0) H 04/22/17 05:04 Platelet Estimate ADEQUATE (NORMAL) 05/16/17 04:13 Platelet Morphology NORMAL (NORMAL) 05/16/17 04:13 Anisocytosis 1+ 04/28/17 06:08 Microcytosis 1+ 05/02/17 05:15 RBC Morph Micro Appear NORMAL (NORMAL) 05/16/17 04:13 ESR > 140 mm/hr (0-20) H 04/20/17 07:00 PT 11.9 SECONDS (9.5-11.5) H 04/24/17 21:19 INR 1.13 (0.5-1.4) 04/24/17 21:19 PTT (Actin FS) 27.6 SECONDS (26.0-38.0) 04/24/17 21:19 Specimen Source Arterial 05/16/17 08:37 Sample Site Right Radial 05/16/17 08:37 pH 7.48 (7.35-7.45) H 05/16/17 08:37 pCO2 41.0 mmHg (35.0-45.0) 05/16/17 08:37 pO2 78.0 mmHg (80.0-100.0) L 05/16/17 08:37 HCO3 29.9 mEq/L (20.0-26.0) H 05/16/17 08:37 Base Excess 6.4 mEq/L (-3.0-3.0) H 05/16/17 08:37 O2 Saturation 96.0 % (92.0-100.0) 05/16/17 08:37 Chau Test Positive 05/16/17 08:37 Vent Rate 16 05/16/17 08:37 Inspired O2 30 05/16/17 08:37 Tidal Volume 450 05/16/17 08:37 PEEP 3 05/16/17 08:37 Pressure (ins/psv/peep) NA 05/16/17 08:37 Critical Value LZHANG 05/16/17 08:37 Sodium 147 mEq/L (136-145) H 05/17/17 04:25 Potassium 3.8 mEq/L (3.5-5.1) 05/17/17 04:25 Chloride 115 mEq/L (98-107) H 05/17/17 04:25 Carbon Dioxide 28.5 mEq/L (21.0-31.0) 05/17/17 04:25 Anion Gap 7.3 (7.0-16.0) 05/17/17 04:25 BUN 75 mg/dL (7-25) H 05/17/17 04:25 Creatinine 1.6 mg/dL (0.7-1.3) H 05/17/17 04:25 Est GFR ( Amer) 57.6 ml/min (>90) 05/17/17 04:25 Est GFR (Non-Af Amer) 47.6 ml/min 05/17/17 04:25 BUN/Creatinine Ratio 46.9 05/17/17 04:25 Glucose 142 mg/dL (70-105) H 05/17/17 04:25 POC Glucose 133 MG/DL (70 - 105) H 05/17/17 05:14 Hemoglobin A1c % 6.7 % (4.0-6.0) H 04/22/17 05:04 Whole Bld Lactic Acid 1.66 mmol/L (0.60-1.99) 05/12/17 04:40 Uric Acid 3.6 mg/dL (4.4-7.6) L 04/20/17 07:00 Calcium 10.4 mg/dL (8.6-10.3) H 05/17/17 04:25 Phosphorus 5.5 mg/dL (2.5-5.0) H 05/17/17 04:25 Magnesium 2.2 mg/dL (1.9-2.7) 05/16/17 04:13 Total Bilirubin 0.6 mg/dL (0.3-1.0) 05/17/17 04:25 Direct Bilirubin 0.13 mg/dL (0.0-0.2) 05/13/17 04:27 AST 84 U/L (13-39) H 05/17/17 04:25 ALT 37 U/L (7-52) 05/17/17 04:25 Alkaline Phosphatase 211 U/L (34-104) H 05/17/17 04:25 Ammonia 45 umol/L (16-53) 05/12/17 04:40 Creatine Kinase 136 U/L (30-223) 04/14/17 14:55 Troponin I 0.01 ng/mL (0.01-0.05) 04/22/17 05:04 C-Reactive Protein 27.5 mg/dL (0.0-0.9) H 05/15/17 04:29 B-Natriuretic Peptide 20.7 pg/mL (5.0-100.0) 05/13/17 04:27 Total Protein 6.1 gm/dL (6.0-8.3) 05/17/17 04:25 Albumin 1.7 gm/dL (4.2-5.5) L 05/17/17 04:25 Globulin 4.4 gm/dL 05/17/17 04:25 Albumin/Globulin Ratio 0.4 (1.0-1.8) L 05/17/17 04:25 Prealbumin 7 mg/dL (10-36) L 05/15/17 04:29 Triglycerides 281 mg/dL (<150) H 05/15/17 04:29 Cholesterol 91 mg/dL (<200) 05/12/17 04:40 LDL Cholesterol Direct 38 mg/dL (75-193) L 04/14/17 14:55 HDL Cholesterol 13 mg/dL (23-92) L 04/14/17 14:55 Amylase 53 U/L (29-103) 05/09/17 06:00 Lipase 85 U/L (11-82) H 05/09/17 06:00 Urine Source SEN PORT 05/03/17 13:38 Urine Color YELLOW 05/03/17 13:38 Urine Clarity TURBID (CLEAR) 05/03/17 13:38 Urine pH 7.5 05/03/17 13:38 Ur Specific [place] 1.010 (1.005-1.030) 05/03/17 13:38 Urine Protein NEGATIVE mg/dL (NEGATIVE) 05/03/17 13:38 Urine Glucose (UA) NEGATIVE mg/dL (NEGATIVE) 05/03/17 13:38 Urine Ketones NEGATIVE mg/dL (NEGATIVE) 05/03/17 13:38 Urine Blood MODERATE (NEGATIVE) H 05/03/17 13:38 Urine Nitrate NEGATIVE (NEGATIVE) 05/03/17 13:38 Urine Bilirubin NEGATIVE (NEGATIVE) 05/03/17 13:38 Urine Urobilinogen 0.2 E.U./dL (0.2 - 1.0) 05/03/17 13:38 Ur Leukocyte Esterase TRACE (NEGATIVE) H 05/03/17 13:38 Urine RBC 50-100 /hpf (0-5) H 05/03/17 13:38 Urine WBC 6-10 /hpf (0-5) H 05/03/17 13:38 Ur Epithelial Cells FEW /lpf (FEW) 05/03/17 13:38 Amorphous Sediment MANY URATES (NONE SEEN) 04/14/17 15:05 Urine Bacteria FEW /hpf (NONE SEEN) 05/03/17 13:38 Amikacin Trough 11.0 ug/mL (1.0-8.0) H 05/15/17 19:30 Vancomycin Trough 13.5 ug/mL (10-20) 04/19/17 19:20 Helicobacter pylori Ab NEGATIVE (NEGATIVE) 05/04/17 10:05 Blood Type O POSITIVE 05/02/17 07:12 Antibody Screen NEGATIVE 05/02/17 07:12 Crossmatch See Detail 05/02/17 07:12 - Physical Exam Vitals and I&O: Vital Signs Temp 96.9 F 05/17/17 04:00 Pulse 80 05/17/17 06:00 Resp 30 05/17/17 06:00 BP 108/57 05/17/17 06:00 Pulse Ox 100 05/17/17 06:00 Intake & Output 05/16/17 05/17/17 05/17/17 18:59 06:59 18:59 Intake Total 2518.667 1300 Output Total 2630 1600 Balance -111.333 -300 Weight (lbs) 102.143 kg 101.236 kg Intake: Intake, IV Amount 1318.667 100 Amikacin 500 mg In 252 Dextrose 5% 250 ml @ 250 mls/hr IV Q12H ARIAN Rx#: [id number] Multivitamin Inj 10 ml In 966.667 Dextrose 70% 1,740 ml In Amino Acids 10% 500 ml In Intralipids 20% 150 ml @ 100 mls/hr IV .Q24H ARIAN Rx#:[id number] Tigecycline 50 mg In 100 100 Sodium Chloride 0.9% 100 ml @ 100 mls/hr IV Q12HR ARIAN Rx#:[id number] TPN/PPN 1200 1200 Output: Gastric Drainage 200 200 Urine 2400 1400 Stool 30 0 Active Medications: Current Medications Acetaminophen (Tylenol 650mg/20.3ml Suspension) 650 mg NG Q6H PRN PRN Reason: FEVER/PAIN Stop: 06/21/17 17:45 Last Admin: 05/15/17 09:50 Dose: 650 mg Albuterol/Ipratropium (Duoneb Neb) 3 ml HHN Q4HRT [facility] Stop: 06/15/17 14:59 Last Admin: 05/17/17 03:21 Dose: 3 ml Amiodarone HCl (Cordarone) 200 mg NG BID [facility] Stop: 06/24/17 23:14 Last Admin: 05/16/17 16:16 Dose: Not Given Budesonide (Pulmicort) 0.5 mg HHN BIDRT [facility]AN Stop: 06/15/17 18:59 Last Admin: 05/16/17 19:01 Dose: 0.5 mg Chlorhexidine Gluconate (Peridex) 15 ml MM 08,1999 [facility] Stop: 06/30/17 19:59 Last Admin: 05/16/17 19:53 Dose: 15 ml Enalaprilat (Vasotec) 2.5 mg IVP Q4HR PRN PRN Reason: SBP>150 Stop: 07/06/17 15:59 Famotidine (Pepcid) 20 mg IVP Q6HR [facility] Stop: 07/06/17 11:59 Last Admin: 05/17/17 05:57 Dose: 20 mg Furosemide (Lasix) 40 mg IVP BID [facility] Stop: 07/12/17 16:59 Last Admin: 05/16/17 16:15 Dose: 40 mg Multivitamins/Minerals 10 ml/Dextrose/ Amino Acids/Electrolytes/ Fat Emulsion Intravenous 2,400 mls @ 100 mls/hr IV .Q24H [facility] Stop: 06/23/17 15:59 Last Admin: 05/16/17 15:59 Dose: 100 mls/hr Dextrose/Sodium Chloride (D5-0.45ns) 1,000 mls @ 40 mls/hr IV .Q24H [facility]AN Stop: 06/23/17 15:59 Last Infusion: 05/16/17 06:00 Dose: Infused Norepinephrine Bitartrate 4 mg (/ Dextrose) 254 mls @ 0 mls/hr IV TITR PRN; Protocol; 0 MCG/MIN PRN Reason: BP MAINTENANCE (PER PROTOCOL) Stop: 06/30/17 09:25 Last Titration: 05/02/17 07:00 Dose: Infused Diltiazem HCl 125 mg/ Dextrose 125 mls @ 10 mls/hr IV TITR [facility]AN; 10 MG/HR PRN Reason: Protocol Stop: 07/06/17 11:14 Last Titration: 05/11/17 18:00 Dose: 0 mg/hr, 0 mls/hr Tigecycline 50 mg/ Sodium (Chloride) 100 mls @ 100 mls/hr IV Q12HR [facility]AN Stop: 07/13/17 20:59 Last Infusion: 05/16/17 21:31 Dose: Infused Insulin Aspart (Novolog Insulin Sliding Scale) 0 units SUBQ Q6HR [facility]AN PRN Reason: Protocol Stop: 06/16/17 17:59 Last Admin: 05/17/17 05:58 Dose: Not Given Lactobacillus Rhamnosus (Culturelle) 1 each PO DAILY [facility] Stop: 07/16/17 08:59 Lorazepam (Ativan) 1 mg IVP Q4HR PRN; Protocol PRN Reason: Agitation Stop: 07/13/17 02:57 Last Admin: 05/16/17 15:57 Dose: 1 mg Metoclopramide HCl (Reglan) 10 mg IVP Q8HR [facility] Stop: 07/06/17 20:59 Last Admin: 05/17/17 04:30 Dose: 10 mg Metoprolol Tartrate (Lopressor) 25 mg PO BID [facility] Stop: 06/26/17 08:59 Last Admin: 05/16/17 16:17 Dose: Not Given Mineral Oil (Mineral Oil 30 Ml) 30 ml NG DAILY [facility] Stop: 07/04/17 12:29 Last Admin: 05/16/17 08:15 Dose: Not Given Miscellaneous (Tpn Per Pharmacy) 1 ea MC PRN PRN PRN Reason: PROTOCOL Stop: 06/16/17 12:28 Miscellaneous (Vte Chemical Prophylaxis Screen/ Admission) 1 ea MC PRN PRN PRN Reason: PROTOCOL Stop: 07/01/17 14:44 Miscellaneous (Amikacin Iv Per Pharmacy) 1 ea MC PRN PRN PRN Reason: PROTOCOL Stop: 07/13/17 18:39 Miscellaneous (Probiotic Screen) 1 ea MC PRN PRN PRN Reason: PROTOCOL Stop: 07/15/17 10:37 Morphine Sulfate (Morphine) 2 mg IVP Q4H PRN PRN Reason: PAIN Stop: 07/11/17 16:49 Last Admin: 05/17/17 00:53 Dose: 2 mg General: Other (sedated and intubated.) HEENT: Atraumatic, PERRLA, EOMI, Mucous membr. moist/pink, Other (oral endotracheal tube,NG tube+) Neck: Supple, +2 carotid pulse wo bruit Cardiovascular: Regular rate, Normal S1, Normal S2 Lungs: Other (diffuse rhonchi.) Abdomen: Soft, Other ( wound VAC anterior open abdominal wall wound. L colostomy retracted but still functional w/ stool output.) Extremities: Edema, Other (no edema and cyanosis.) Neurological: Reflexes 2+, Other (Patient is intubated and sedated) Psych/Mental Status: Other (Sedated) - Procedures Procedures: Procedures Procedure Code Date BYPASS SIGMOID COLON TO CUTANEOUS, OPEN APPROACH [id number] 04/14/17 INSERT EMERGENCY AIRWAY 82562 04/14/17 INSERTION OF ENDOTRACHEAL AIRWAY INTO TRACHEA, VIA OPENING [id number] 04/14/17 PARTIAL REMOVAL OF COLON 10261 04/14/17 RESECTION OF SIGMOID COLON, OPEN APPROACH [id number] 04/14/17 RESPIRATORY VENTILATION, 24-96 CONSECUTIVE HOURS [id number] 04/14/17 VENT MGMT INPAT INIT DAY 38984 04/14/17 VENT MGMT INPAT SUBQ DAY 29079 04/14/17 Assessment/Plan - Problem List Patient Problems: All Active Problems Abscess of sigmoid colon due to diverticulitis (Acute) K57.20 Diverticulitis of sigmoid colon (Acute) K57.32 Obesity (Acute) E66.9 Perforation of sigmoid colon due to diverticulitis (Acute) K57.20 Peritonitis (acute) generalized (Acute) K65.0 - Assessment Assessment: POD#33; s/p ex lap, sigmoid colectomy, drainage of peritonitis, lysis adhesions , ROLANDO drain placement 04/14 icu status encephalopathic, confused, obtunded, intubated. continue IVfluids +TPN mild renal insufficiency, elevated BUN/creat dvt prophylaxis Lovenox SQ colostomy end necrosed and sloughed, severely retracted, but functional w/ stool output..... poor candidate for revision of colostomy open abd wound, wound vac in place, changed q 3days, wound marge, still some yellow slough. continue iv abx. sen cath supportive care.... s/w family; guarded prognosis. EGD 05/04 results noted by Reyes/GI peptic ulcer disease, NGT trauma multiple prior CT abd/pelvis....postop changes, no obvious drainable intra-abd abscess or collections tachycardia, normal WBC electrolyte derangement, renal f/u, fluid management. ok to give PO meds via NGT TF via NGT held, residuals high, NGT to suction moderate output [facility] is following recommended to family tracheostomy, EGD + PEG, change central line...Dr. Bro feels pt is high risk for extubation.....Dr. Bro recommends tracheostomy. will plan OR for this week. CT abd/pelvis results noted, no obvious drainable abscess or collection, no free air. continue wound vac to open abd wound. Nutritional Asmnt/Malnutr-PDOC - Dietary Evaluation Malnutrition Findings (Please click <Entered> for more info): Nutritional Asmnt/Malnutrition Start: 04/19/17 14: 21 Text: Status: Complete Freq: Document 04/19/17 14:21 GSUN (Rec: 04/19/17 14:58 [id number]) Nutritional Asmnt/Malnutrition Patient General Information Nutritional Screening Moderate Risk Screening Diagnosis Sepsis, diverticulitis, peritonitis Pertinent Medical Hx/Surgical Hx Asthma, diverticulosis Subjective Information 56 year old male frome home. Pt was restless, moving extremities during visit. 04/14 : sigmoid colectomy, end colostomy, abscess drainage, diffuse peritontis. 04/16: pt started PPN. 04/17: central line and started on TPN. Spoke to family at bedside, explained parenteral nutrition , family undersoto and has no further question at this time. Weight discrepancies noted in EMR, family does not know UBW , estimated nutritional needs based Current Diet Order/ Nutrition Support TPN D10% AA4.25% at 90ml/hr with IL20% 150ml, providing 1401.6kcal Pertinent Medications Dilaudid, Novolog, Culturelle, Magnesium Sulfate, Vancomycin , TPN, Morphine, Multivitamins , Zofran, Protonix, Nacl0.9% Pertinent Labs 04/14: triglycerides 106, total bilirubin 1.1H, glucose 116H 04/17: magnesium 2.5, phsophorus 3.2 04/19: magnesium 1.8L, phosphorus 2.4L, BUN 28H, creatinine 1.3, glucose 154H, total bilirubin 1.1H, triglycerides 238H Nutritional Hx/Data Height 1.7 m Height (Calculated Centimeters) 170.2 Current Weight (lbs) 95.254 kg Weight (Calculated Kilograms) 95.3 Weight (Calculated Grams) 32636.4 [place] Body Weight 148 Weight Status Overweight GI Symptoms Skin Integrity/Comment: [place] 14. Facial non-pitting 1+, bilateral hands pitting 1+ Estimated Nutritional Goals Calories/Kcals/Kg IBW 148/67.3kg Kcals Calculated 2018-2356kcal (30-35kcal/kg) Protein Calculated 101-135g (1.5-2g/kg) Fluid: ml Per MD Nutritional Problem 1. Problem Problem Altered GI function related to Etiology abscess and perforation of sigmoid colon due to diverticulitis aeb Signs/Symptoms: post-operative, on TPN Intervention/Recommendation Comments 1. Recommend TPN D15% AA5.5% at 100ml/hr with IL20% 150ml, providing 2400ml total volume, 2052kcal, 132g protein, meeting 100% of estimated nutritional needs. Carb load 2 .6mg/kg/min (using 210lb adm weight). 2. Monitor for possible refeeding syndrome, 04/18: phsophorus 2.1L, 04/19: magnesium 1.9. 3. Monitor triglycerides, total bilirubin, glucose, renal labs. Expected Outcomes/Goals Expected Outcomes/Goals 1. Pt to meet 100% of estimated nutritional needs on TPN.
[2017-05-17] MEDS: Budesonide 0.5 Mg/2 mL Ud HHN SCH ×2 (07:38→19:02)
[2017-05-17] MEDS: Chlorhexidine Gluconate 0.12% 15mL Mouthwash MM SCH ×2 (08:33→20:15)
[2017-05-17] MEDS: Lactobacillus Rhamnosus 10 Billion CFU Capsule PO SCH (08:35)
[2017-05-17] MEDS: Venelex 60gm Tube TP SCH (08:37)
--- NOTE | 2017-05-17 09:06 | General Progress Note ---
Subjective - Review of Systems Subjective: Patient is seen and examined. Patient currently on vent. Patient is sedated. Care plan reviewed and discussed with staff. No new events. Objective - Results Result Diagrams: 05/17/17 04:25 05/17/17 04:25 Recent Labs: Laboratory Last Values WBC 10.3 Th/cmm (4.8-10.8) 05/17/17 04:25 RBC 3.37 Mil/cmm (4.30-5.70) L 05/17/17 04:25 Hgb 9.1 gm/dL (13.2-17.3) L 05/17/17 04:25 Hct 27.4 % (39.0-49.0) L 05/17/17 04:25 MCV 81.4 fl (80-99) 05/17/17 04:25 MCH 26.9 pg (26.0-30.0) 05/17/17 04:25 MCHC Differential 33.1 pg (28.0-36.0) 05/17/17 04:25 RDW 17.1 % (11.5-20.0) 05/17/17 04:25 Plt Count 224 Th/cmm (150-400) D 05/17/17 04:25 MPV 10.0 fl 05/17/17 04:25 Neutrophils % 61.3 % (40.0-80.0) 05/15/17 04:29 Band Neutrophils % 1 % (0-10) 05/16/17 04:13 Lymphocytes % 17.3 % (20.0-50.0) L 05/15/17 04:29 Monocytes % 8.6 % (2.0-10.0) 05/15/17 04:29 Eosinophils % 12.3 % (0.0-5.0) H 05/15/17 04:29 Basophils % 0.5 % (0.0-2.0) 05/15/17 04:29 Neutrophils (Manual) 51 % (40-80) 05/16/17 04:13 Lymphocytes 21 % (20-50) 05/16/17 04:13 Monocytes 4 % (2-10) 05/16/17 04:13 Eosinophils 23 % (0-5) H 05/16/17 04:13 Metamyelocytes 1 % (0-0) H 04/22/17 05:04 Platelet Estimate ADEQUATE (NORMAL) 05/16/17 04:13 Platelet Morphology NORMAL (NORMAL) 05/16/17 04:13 Anisocytosis 1+ 04/28/17 06:08 Microcytosis 1+ 05/02/17 05:15 RBC Morph Micro Appear NORMAL (NORMAL) 05/16/17 04:13 ESR > 140 mm/hr (0-20) H 04/20/17 07:00 PT 11.9 SECONDS (9.5-11.5) H 04/24/17 21:19 INR 1.13 (0.5-1.4) 04/24/17 21:19 PTT (Actin FS) 27.6 SECONDS (26.0-38.0) 04/24/17 21:19 Specimen Source Arterial 05/16/17 08:37 Sample Site Right Radial 05/16/17 08:37 pH 7.48 (7.35-7.45) H 05/16/17 08:37 pCO2 41.0 mmHg (35.0-45.0) 05/16/17 08:37 pO2 78.0 mmHg (80.0-100.0) L 05/16/17 08:37 HCO3 29.9 mEq/L (20.0-26.0) H 05/16/17 08:37 Base Excess 6.4 mEq/L (-3.0-3.0) H 05/16/17 08:37 O2 Saturation 96.0 % (92.0-100.0) 05/16/17 08:37 Chau Test Positive 05/16/17 08:37 Vent Rate 16 05/16/17 08:37 Inspired O2 30 05/16/17 08:37 Tidal Volume 450 05/16/17 08:37 PEEP 3 05/16/17 08:37 Pressure (ins/psv/peep) NA 05/16/17 08:37 Critical Value LZHANG 05/16/17 08:37 Sodium 147 mEq/L (136-145) H 05/17/17 04:25 Potassium 3.8 mEq/L (3.5-5.1) 05/17/17 04:25 Chloride 115 mEq/L (98-107) H 05/17/17 04:25 Carbon Dioxide 28.5 mEq/L (21.0-31.0) 05/17/17 04:25 Anion Gap 7.3 (7.0-16.0) 05/17/17 04:25 BUN 75 mg/dL (7-25) H 05/17/17 04:25 Creatinine 1.6 mg/dL (0.7-1.3) H 05/17/17 04:25 Est GFR ( Amer) 57.6 ml/min (>90) 05/17/17 04:25 Est GFR (Non-Af Amer) 47.6 ml/min 05/17/17 04:25 BUN/Creatinine Ratio 46.9 05/17/17 04:25 Glucose 142 mg/dL (70-105) H 05/17/17 04:25 POC Glucose 133 MG/DL (70 - 105) H 05/17/17 05:14 Hemoglobin A1c % 6.7 % (4.0-6.0) H 04/22/17 05:04 Whole Bld Lactic Acid 1.66 mmol/L (0.60-1.99) 05/12/17 04:40 Uric Acid 3.6 mg/dL (4.4-7.6) L 04/20/17 07:00 Calcium 10.4 mg/dL (8.6-10.3) H 05/17/17 04:25 Phosphorus 5.5 mg/dL (2.5-5.0) H 05/17/17 04:25 Magnesium 2.2 mg/dL (1.9-2.7) 05/16/17 04:13 Total Bilirubin 0.6 mg/dL (0.3-1.0) 05/17/17 04:25 Direct Bilirubin 0.13 mg/dL (0.0-0.2) 05/13/17 04:27 AST 84 U/L (13-39) H 05/17/17 04:25 ALT 37 U/L (7-52) 05/17/17 04:25 Alkaline Phosphatase 211 U/L (34-104) H 05/17/17 04:25 Ammonia 45 umol/L (16-53) 05/12/17 04:40 Creatine Kinase 136 U/L (30-223) 04/14/17 14:55 Troponin I 0.01 ng/mL (0.01-0.05) 04/22/17 05:04 C-Reactive Protein 27.5 mg/dL (0.0-0.9) H 05/15/17 04:29 B-Natriuretic Peptide 20.7 pg/mL (5.0-100.0) 05/13/17 04:27 Total Protein 6.1 gm/dL (6.0-8.3) 05/17/17 04:25 Albumin 1.7 gm/dL (4.2-5.5) L 05/17/17 04:25 Globulin 4.4 gm/dL 05/17/17 04:25 Albumin/Globulin Ratio 0.4 (1.0-1.8) L 05/17/17 04:25 Prealbumin 7 mg/dL (10-36) L 05/15/17 04:29 Triglycerides 281 mg/dL (<150) H 05/15/17 04:29 Cholesterol 91 mg/dL (<200) 05/12/17 04:40 LDL Cholesterol Direct 38 mg/dL (75-193) L 04/14/17 14:55 HDL Cholesterol 13 mg/dL (23-92) L 04/14/17 14:55 Amylase 53 U/L (29-103) 05/09/17 06:00 Lipase 85 U/L (11-82) H 05/09/17 06:00 Urine Source [place] 05/03/17 13:38 Urine Color YELLOW 05/03/17 13:38 Urine Clarity TURBID (CLEAR) 05/03/17 13:38 Urine pH 7.5 05/03/17 13:38 Ur Specific [place] 1.010 (1.005-1.030) 05/03/17 13:38 Urine Protein NEGATIVE mg/dL (NEGATIVE) 05/03/17 13:38 Urine Glucose (UA) NEGATIVE mg/dL (NEGATIVE) 05/03/17 13:38 Urine Ketones NEGATIVE mg/dL (NEGATIVE) 05/03/17 13:38 Urine Blood MODERATE (NEGATIVE) H 05/03/17 13:38 Urine Nitrate NEGATIVE (NEGATIVE) 05/03/17 13:38 Urine Bilirubin NEGATIVE (NEGATIVE) 05/03/17 13:38 Urine Urobilinogen 0.2 E.U./dL (0.2 - 1.0) 05/03/17 13:38 Ur Leukocyte Esterase TRACE (NEGATIVE) H 05/03/17 13:38 Urine RBC 50-100 /hpf (0-5) H 05/03/17 13:38 Urine WBC 6-10 /hpf (0-5) H 05/03/17 13:38 Ur Epithelial Cells FEW /lpf (FEW) 05/03/17 13:38 Amorphous Sediment MANY URATES (NONE SEEN) 04/14/17 15:05 Urine Bacteria FEW /hpf (NONE SEEN) 05/03/17 13:38 Amikacin Trough 11.0 ug/mL (1.0-8.0) H 05/15/17 19:30 Vancomycin Trough 13.5 ug/mL (10-20) 04/19/17 19:20 Helicobacter pylori Ab NEGATIVE (NEGATIVE) 05/04/17 10:05 Blood Type O POSITIVE 05/02/17 07:12 Antibody Screen NEGATIVE 05/02/17 07:12 Crossmatch See Detail 05/02/17 07:12 - Physical Exam Vitals and I&O: Vital Signs Temp 96.9 F 05/17/17 04:00 Pulse 88 05/17/17 08:35 Resp 40 05/17/17 08:44 BP 121/72 05/17/17 08:30 Pulse Ox 97 05/17/17 07:38 Intake & Output 05/16/17 05/17/17 05/17/17 18:59 06:59 18:59 Intake Total 2518.667 1300 Output Total 2630 1600 Balance -111.333 -300 Weight (lbs) 102.143 kg 101.236 kg Intake: Intake, IV Amount 1318.667 100 Amikacin 500 mg In 252 Dextrose 5% 250 ml @ 250 mls/hr IV Q12H ARIAN Rx#: [id number] Multivitamin Inj 10 ml In 966.667 Dextrose 70% 1,740 ml In Amino Acids 10% 500 ml In Intralipids 20% 150 ml @ 100 mls/hr IV .Q24H ARIAN Rx#:[id number] Tigecycline 50 mg In 100 100 Sodium Chloride 0.9% 100 ml @ 100 mls/hr IV Q12HR ARIAN Rx#:[id number] TPN/PPN 1200 1200 Output: Gastric Drainage 200 200 Urine 2400 1400 Stool 30 0 Active Medications: Current Medications Acetaminophen (Tylenol 650mg/20.3ml Suspension) 650 mg NG Q6H PRN PRN Reason: FEVER/PAIN Stop: 06/21/17 17:45 Last Admin: 05/15/17 09:50 Dose: 650 mg Albuterol/Ipratropium (Duoneb Neb) 3 ml HHN Q4HRT [facility] Stop: 06/15/17 14:59 Last Admin: 05/17/17 07:38 Dose: 3 ml Amiodarone HCl (Cordarone) 200 mg NG BID [facility] Stop: 06/24/17 23:14 Last Admin: 05/17/17 08:35 Dose: Not Given Budesonide (Pulmicort) 0.5 mg HHN BIDRT [facility] Stop: 06/15/17 18:59 Last Admin: 05/17/17 07:38 Dose: 0.5 mg Chlorhexidine Gluconate (Peridex) 15 ml MM 799,1999 [facility] Stop: 06/30/17 19:59 Last Admin: 05/17/17 08:33 Dose: 15 ml Enalaprilat (Vasotec) 2.5 mg IVP Q4HR PRN PRN Reason: SBP>150 Stop: 07/06/17 15:59 Famotidine (Pepcid) 20 mg IVP Q6HR [facility] Stop: 07/06/17 11:59 Last Admin: 05/17/17 05:57 Dose: 20 mg Furosemide (Lasix) 40 mg IVP BID [facility] Stop: 07/12/17 16:59 Last Admin: 05/17/17 08:30 Dose: 40 mg Multivitamins/Minerals 10 ml/Dextrose/ Amino Acids/Electrolytes/ Fat Emulsion Intravenous 2,400 mls @ 100 mls/hr IV .Q24H [facility] Stop: 06/23/17 15:59 Last Admin: 05/16/17 15:59 Dose: 100 mls/hr Dextrose/Sodium Chloride (D5-0.45ns) 1,000 mls @ 40 mls/hr IV .Q24H [facility] Stop: 06/23/17 15:59 Last Infusion: 05/16/17 06:00 Dose: Infused Norepinephrine Bitartrate 4 mg (/ Dextrose) 254 mls @ 0 mls/hr IV TITR PRN; Protocol; 0 MCG/MIN PRN Reason: BP MAINTENANCE (PER PROTOCOL) Stop: 06/30/17 09:25 Last Titration: 05/02/17 07:00 Dose: Infused Diltiazem HCl 125 mg/ Dextrose 125 mls @ 10 mls/hr IV TITR ARIAN; 10 MG/HR PRN Reason: Protocol Stop: 07/06/17 11:14 Last Titration: 05/11/17 18:00 Dose: 0 mg/hr, 0 mls/hr Tigecycline 50 mg/ Sodium (Chloride) 100 mls @ 100 mls/hr IV Q12HR [facility]AN Stop: 07/13/17 20:59 Last Admin: 05/17/17 08:30 Dose: 100 mls/hr Insulin Aspart (Novolog Insulin Sliding Scale) 0 units SUBQ Q6HR ARIAN PRN Reason: Protocol Stop: 06/16/17 17:59 Last Admin: 05/17/17 05:58 Dose: Not Given Lactobacillus Rhamnosus (Culturelle) 1 each PO DAILY [facility] Stop: 07/16/17 08:59 Last Admin: 05/17/17 08:35 Dose: Not Given Lorazepam (Ativan) 1 mg IVP Q4HR PRN; Protocol PRN Reason: Agitation Stop: 07/13/17 02:57 Last Admin: 05/16/17 15:57 Dose: 1 mg Metoclopramide HCl (Reglan) 10 mg IVP Q8HR [facility]AN Stop: 07/06/17 20:59 Last Admin: 05/17/17 04:30 Dose: 10 mg Metoprolol Tartrate (Lopressor) 25 mg PO BID [facility] Stop: 06/26/17 08:59 Last Admin: 05/17/17 08:34 Dose: Not Given Mineral Oil (Mineral Oil 30 Ml) 30 ml NG DAILY [facility]AN Stop: 07/04/17 12:29 Last Admin: 05/17/17 08:34 Dose: Not Given Miscellaneous (Tpn Per Pharmacy) 1 ea MC PRN PRN PRN Reason: PROTOCOL Stop: 06/16/17 12:28 Miscellaneous (Vte Chemical Prophylaxis Screen/ Admission) 1 ea MC PRN PRN PRN Reason: PROTOCOL Stop: 07/01/17 14:44 Miscellaneous (Amikacin Iv Per Pharmacy) 1 ea MC PRN PRN PRN Reason: PROTOCOL Stop: 07/13/17 18:39 Miscellaneous (Probiotic Screen) 1 ea MC PRN PRN PRN Reason: PROTOCOL Stop: 07/15/17 10:37 Morphine Sulfate (Morphine) 2 mg IVP Q4H PRN PRN Reason: PAIN Stop: 07/11/17 16:49 Last Admin: 05/17/17 00:53 Dose: 2 mg Sulfacetamide Sodium (Sulamyd 10% Oph Soln) 1 drop EACH EYE Q6HR [facility]AN Stop: 07/16/17 11:59 General: Other (sedated and intubated.) HEENT: Atraumatic, PERRLA, EOMI, Mucous membr. moist/pink, Other (oral endotracheal tube,NG tube+) Neck: Supple, +2 carotid pulse wo bruit Cardiovascular: Regular rate, Normal S1, Normal S2 Lungs: Other (diffuse rhonchi.) Abdomen: Soft, Other ( wound VAC anterior open abdominal wall wound. L colostomy retracted but still functional w/ stool output.) Extremities: Edema, Other (no edema and cyanosis.) Neurological: Reflexes 2+, Other (Patient is intubated and sedated) Psych/Mental Status: Other (Sedated) - Procedures Procedures: Procedures Procedure Code Date BYPASS SIGMOID COLON TO CUTANEOUS, OPEN APPROACH [id number] 04/14/17 INSERT EMERGENCY AIRWAY 19716 04/14/17 INSERTION OF ENDOTRACHEAL AIRWAY INTO TRACHEA, VIA OPENING [id number] 04/14/17 PARTIAL REMOVAL OF COLON 22833 04/14/17 RESECTION OF SIGMOID COLON, OPEN APPROACH [id number] 04/14/17 RESPIRATORY VENTILATION, 24-96 CONSECUTIVE HOURS [id number] 04/14/17 VENT MGMT INPAT INIT DAY 85454 04/14/17 VENT MGMT INPAT SUBQ DAY 92572 04/14/17 Assessment/Plan - Problem List Patient Problems: All Active Problems Abscess of sigmoid colon due to diverticulitis (Acute) K57.20 Diverticulitis of sigmoid colon (Acute) K57.32 Obesity (Acute) E66.9 Perforation of sigmoid colon due to diverticulitis (Acute) K57.20 Peritonitis (acute) generalized (Acute) K65.0 - Assessment Assessment: Current Active Problems Problem Status Onset Abscess of sigmoid colon due to diverticulitis Acute Diverticulitis of sigmoid colon Acute Obesity Acute Perforation of sigmoid colon due to diverticulitis Acute Peritonitis (acute) generalized Acute Perforated diverticulitis status post expiratory laparotomy and colostomy placement. Postoperative respiratory failure on vent. Obesity. Conjunctivitis. MDROs organisms positive culture. GI bleed stable. Suspect developing ARDS. Polymicrobial peritonitis due to perforation.. Asthma. SVT currently on Cardizem drip Electrolyte imbalance. SEKOU . Encephalopathy due to metabolic and infectious etio. Open surgical wound with wound VAC. Altered mental status secondary to metabolic and infectious encephalopathy. Postop anemia. - Plan Plan: ICU status. Vent support. Nebulizer treatment. Pulmonary toilet. IV antibiotics as per ID. TPN. Sulfacetamide eye drops. Renal consult. blood culture now and sputum gram stain C/S. Discussed with sports book server agreed with the tracheostomy. Needs PEG possible placement on Wednesday. Rate control with cardizem drip. Blood pressure control Wound care with wound VAC Surgical follow-up ID follow-up Cardiology follow-up Pulmonary follow-up ICU care. Symptoms management. Medication management. IV PPI. Monitor lab. Guarded prognosis. Chronic management of his medical illnesses. Care plan discussed with RN. Nutritional Asmnt/Malnutr-PDOC - Dietary Evaluation Malnutrition Findings (Please click <Entered> for more info): Nutritional Asmnt/Malnutrition Start: 04/19/17 14: 21 Text: Status: Complete Freq: Document 04/19/17 14:21 GSUN (Rec: 04/19/17 14:58 [id number]) Nutritional Asmnt/Malnutrition Patient General Information Nutritional Screening Moderate Risk Screening Diagnosis Sepsis, diverticulitis, peritonitis Pertinent Medical Hx/Surgical Hx Asthma, diverticulosis Subjective Information 56 year old male frome home. Pt was restless, moving extremities during visit. 04/14 : sigmoid colectomy, end colostomy, abscess drainage, diffuse peritontis. 04/16: pt started PPN. 04/17: central line and started on TPN. Spoke to family at bedside, explained parenteral nutrition , family undersoto and has no further question at this time. Weight discrepancies noted in EMR, family does not know UBW , estimated nutritional needs based Current Diet Order/ Nutrition Support TPN D10% AA4.25% at 90ml/hr with IL20% 150ml, providing 1401.6kcal Pertinent Medications Dilaudid, Novolog, Culturelle, Magnesium Sulfate, Vancomycin , TPN, Morphine, Multivitamins , Zofran, Protonix, Nacl0.9% Pertinent Labs 04/14: triglycerides 106, total bilirubin 1.1H, glucose 116H 04/17: magnesium 2.5, phsophorus 3.2 04/19: magnesium 1.8L, phosphorus 2.4L, BUN 28H, creatinine 1.3, glucose 154H, total bilirubin 1.1H, triglycerides 238H Nutritional Hx/Data Height 1.7 m Height (Calculated Centimeters) 170.2 Current Weight (lbs) 95.254 kg Weight (Calculated Kilograms) 95.3 Weight (Calculated Grams) 26083.4 [place] Body Weight 148 Weight Status Overweight GI Symptoms Skin Integrity/Comment: [place] 14. Facial non-pitting 1+, bilateral hands pitting 1+ Estimated Nutritional Goals Calories/Kcals/Kg IBW 148/67.3kg Kcals Calculated 2018-2356kcal (30-35kcal/kg) Protein Calculated 101-135g (1.5-2g/kg) Fluid: ml Per MD Nutritional Problem 1. Problem Problem Altered GI function related to Etiology abscess and perforation of sigmoid colon due to diverticulitis aeb Signs/Symptoms: post-operative, on TPN Intervention/Recommendation Comments 1. Recommend TPN D15% AA5.5% at 100ml/hr with IL20% 150ml, providing 2400ml total volume, 2052kcal, 132g protein, meeting 100% of estimated nutritional needs. Carb load 2 .6mg/kg/min (using 210lb adm weight). 2. Monitor for possible refeeding syndrome, 04/18: phsophorus 2.1L, 04/19: magnesium 1.9. 3. Monitor triglycerides, total bilirubin, glucose, renal labs. Expected Outcomes/Goals Expected Outcomes/Goals 1. Pt to meet 100% of estimated nutritional needs on TPN.
[2017-05-17] MEDS: TPN 10%-70% CUSTOM IV SCH (15:49)
--- NOTE | 2017-05-17 17:49 | Consultation ---
DATE OF CONSULTATION: 05/17/2017 LOCATION: [facility], ICU bed #10. ATTENDING PHYSICIAN: Dr. Kahn. I thank you very much Dr. Kahn for this consult. IDENTIFICATION: A 56-year-old male patient who is on a respirator, not responding, not able to give any history. History has been taken from reviewing old chart. HISTORY OF PRESENT ILLNESS: This is a 56-year-old gentleman who came to the Emergency Room of [facility] on 04/15/2017. The patient came with a history of abdominal pain for 14 days prior to this admission. The patient did not seek any medical treatment at that time. The patient upon arrival in the Emergency Room was found to have acute abdomen underwent exploratory laparotomy and was found to have peritonitis and perforation. The patient underwent resection and colostomy. The patient required respiratory support. The patient was started on TPN. The patient thereafter was found to have severe peritonitis, was seen by Infectious Disease transportation consultant and was started on multiple IV antibiotics for the last 2-3 days. The patient's BUN and creatinine are increasing. The patient was oliguric, responded well to Lasix. Currently, the patient is on TPN, antibiotic, pain management, respirator. Renal consultation has been requested to help manage renal failure. The patient's current medications include IV morphine p.r.n. for pain control, TPN without phosphorus, Levophed for blood pressure support, ____ IV, Lopressor 25 mg b.i.d., Reglan 10 mg q. 8 IV p.r.n., Ativan p.r.n., lactobacillus p.o., insulin coverage, Lasix 40 mg IV b.i.d., Pepcid 20 mg IV q. 6 hours, Vasotec IV p.r.n., diltiazem IV drip for tachycardia, Cordarone 200 b.i.d. and albuterol breathing treatment and Tylenol p.r.n. REVIEW OF SYSTEMS: Other than above, no other history is available to me at this time. PHYSICAL EXAMINATION: VITAL SIGNS: Pulse of 100, blood pressure 117/58, respirations 30. Yesterday's intake 5744 and urine output 2900. Today, the patient's output is 4050 with intake of about 6500. HEENT: Head: Normocephalic. Ear, Nose, Throat: No bleeding or discharge. NECK: No lymphadenopathy. LUNGS: Good air entry, rales on the right base with decreased breath sound in both bases. HEART: Regular. ABDOMEN: Slightly distended. No bleeding or discharge from the incision. Bowel sounds diminished. EXTREMITIES: 1+ edema on the lower extremities. NEUROLOGIC: Not able to review due to nonresponsive state. LABORATORY DATA: Today's WBC 10.3, hemoglobin 9.1, platelet 224,000. Sodium 147, potassium 3.8, chloride 115, CO2 of 28, BUN 75, creatinine 1.6, blood sugar 142, calcium 10.4, phosphorus 5.5, AST 84. Albumin 1.7. IMPRESSION: 1. Acute kidney injury. 2. Respiratory failure. 3. Sepsis. 4. Anemia. 5. Status post exploratory laparotomy with colostomy. 6. Perforated viscus. 7. Peritonitis. 8. Hypercalcemia. 9. Obesity. 10. Malnutrition. 11. Respiratory failure. PLAN: I will obtain kidney ultrasound, urinalysis, urine culture. Obtain TSH, phosphorus, magnesium in the morning. Restart patient on IV albumin plus Lasix. Continue TPN. Discontinue all calcium. Obtain PTH, vitamin D2 level. The patient may need Aredia if the patient is persistently hypercalcemic. Case has been discussed at length with the nursing staff. The patient's etiology of acute kidney injury seems to be multifactorial. JOB# [id number]
[2017-05-17] MEDS: Levofloxacin 500mg/100mL 500 MG/100 ML BAG IV SCH (21:08)
--- NOTE | 2017-05-17 21:38 | Progress Notes ---
DATE: 05/17/2017 PROBLEM LIST: 1. Persistent respiratory failure. 2. Metabolic encephalopathy. 3. Persistent febrile episode secondary to possibly still ongoing abdominal and underlying obstructive sleep apnea syndrome. SYMPTOMS: Nil, quite obtunded, tachypneic, no respiratory distress, etc. PHYSICAL EXAMINATION: VITAL SIGNS: The patient's recorded vitals: Temperature, he is currently in a cooling mattress around 97, blood pressure is 117/58, saturation is 98% on 20%. NECK: Veins not visualized. CHEST: Shows diminished air entry with occasional rhonchi. HEART: Regular. ABDOMEN: Still guarding and tender in lower abdomen. LABORATORY DATA: White count is 10.3, hemoglobin 9.1. Electrolytes, sodium is 147, BUN is 75. ASSESSMENT: The patient clinically not much changed. Continued to be encephalopathic with tachycardia centrally tachypneic centrally with metabolic syndrome. Still I suspect there is an infectious pathology going in the lower abdomen. PLANS AND SUGGESTIONS: We will continue current treatment. Discussed with the chart nurse. Continue supportive care. Await for tracheostomy to be done and go from there. JOB# [id number]
[2017-05-17] MEDS: cefTAZidime 1 GM in Sodium Chloride 0.9% 50 ML IV SCH ×2 (21:43→21:59)
[2017-05-18] MEDS: Albuterol/Ipratropium Neb 3 ML AERS HHN SCH ×6 (02:16→23:13)
[2017-05-18] MEDS: Morphine Sulfate 4 mg/mL 1mL Syr IVP PRN (03:13)
[2017-05-18] MEDS: INSULIN ASPART SLIDING SCALE 100 UNITS/ML UNIT SUBQ SCH ×4 (03:17→17:52)
[2017-05-18] MEDS: Metoclopramide 5 mg/mL 2mL Vial IVP SCH ×3 (04:32→21:01)
[2017-05-18 05:22] LABS: HEMATOCRIT 28.2 % (39.0-49.0); HEMOGLOBIN 9.4 gm/dL (13.2-17.3); MEAN CELL VOLUME 80.6 fl (80-99); MEAN CORPUSCULAR HGB CONC 33.5 pg (28.0-36.0); MEAN PLATELET VOLUME 9.4 fl; RED CELL DISTRIBUTION WIDTH 17.4 % (11.5-20.0); WHITE BLOOD COUNT 11.5 Th/cmm (4.8-10.8)
[2017-05-18 05:27] LABS: PLATELET COUNT 305 Th/cmm (150-400)
[2017-05-18 05:35] LABS: ALB/GLOB RATIO 0.4 (1.0-1.8); ALKALINE PHOSPHATASE 215 U/L (34-104); ANION GAP 6.4 (7.0-16.0); BILIRUBIN,DIRECT 0.35 mg/dL (0.0-0.2); BILIRUBIN,TOTAL 0.7 mg/dL (0.3-1.0); BUN - UREA NITROGEN 73 mg/dL (7-25); BUN/CREATININE RATIO 48.7; CALCIUM SERUM 10.4 mg/dL (8.6-10.3); CARBON DIOXIDE 26.9 mEq/L (21.0-31.0); CHLORIDE 118 mEq/L (98-107); CREATININE - SERUM 1.5 mg/dL (0.7-1.3); GLUCOSE 140 mg/dL (70-105); MAGNESIUM 2.4 mg/dL (1.9-2.7); PHOSPHOROUS 5.2 mg/dL (2.5-5.0); POTASSIUM SERUM 4.3 mEq/L (3.5-5.1); SGOT 93 U/L (13-39); SGPT/ALT 42 U/L (7-52); SODIUM SERUM 147 mEq/L (136-145)
[2017-05-18] MEDS: Budesonide 0.5 Mg/2 mL Ud HHN SCH ×2 (07:31→19:14)
[2017-05-18 07:54] LABS: BAND NEUTROPHILE 2 % (0-10); EOSINOPHIL 17 % (0-5); NEUTROPHILS 56 % (40-80); PLATELET ESTIMATE ADEQUATE (NORMAL); PLATELET MORPHOLOGY NORMAL (NORMAL); TOTAL CELLS COUNTED 100
[2017-05-18] MEDS: Levofloxacin 500mg/100mL 500 MG/100 ML BAG IV SCH (08:05)
[2017-05-18] MEDS: Chlorhexidine Gluconate 0.12% 15mL Mouthwash MM SCH ×2 (08:21→20:20)
[2017-05-18] MEDS: Lactobacillus Rhamnosus 10 Billion CFU Capsule PO SCH (08:22)
--- NOTE | 2017-05-18 08:48 | General Progress Note ---
Subjective - Review of Systems Subjective: Patient is seen and examined. Patient currently on vent. Patient is sedated. Care plan reviewed and discussed with staff. No new events. Nephrology consultation greatly appreciated. Objective - Results Result Diagrams: 05/18/17 04:50 05/18/17 04:50 Recent Labs: Laboratory Last Values WBC 11.5 Th/cmm (4.8-10.8) H 05/18/17 04:50 RBC 3.50 Mil/cmm (4.30-5.70) L 05/18/17 04:50 Hgb 9.4 gm/dL (13.2-17.3) L 05/18/17 04:50 Hct 28.2 % (39.0-49.0) L 05/18/17 04:50 MCV 80.6 fl (80-99) 05/18/17 04:50 MCH 27.0 pg (26.0-30.0) 05/18/17 04:50 MCHC Differential 33.5 pg (28.0-36.0) 05/18/17 04:50 RDW 17.4 % (11.5-20.0) 05/18/17 04:50 Plt Count 305 Th/cmm (150-400) D 05/18/17 04:50 MPV 9.4 fl 05/18/17 04:50 Neutrophils % 61.3 % (40.0-80.0) 05/15/17 04:29 Band Neutrophils % 2 % (0-10) 05/18/17 04:50 Lymphocytes % 17.3 % (20.0-50.0) L 05/15/17 04:29 Monocytes % 8.6 % (2.0-10.0) 05/15/17 04:29 Eosinophils % 12.3 % (0.0-5.0) H 05/15/17 04:29 Basophils % 0.5 % (0.0-2.0) 05/15/17 04:29 Neutrophils (Manual) 56 % (40-80) 05/18/17 04:50 Lymphocytes 16 % (20-50) L 05/18/17 04:50 Monocytes 9 % (2-10) 05/18/17 04:50 Eosinophils 17 % (0-5) H 05/18/17 04:50 Metamyelocytes 1 % (0-0) H 04/22/17 05:04 Platelet Estimate ADEQUATE (NORMAL) 05/18/17 04:50 Platelet Morphology NORMAL (NORMAL) 05/18/17 04:50 Anisocytosis 1+ 04/28/17 06:08 Microcytosis 1+ 05/02/17 05:15 RBC Morph Micro Appear NORMAL (NORMAL) 05/18/17 04:50 ESR > 140 mm/hr (0-20) H 04/20/17 07:00 PT 11.9 SECONDS (9.5-11.5) H 04/24/17 21:19 INR 1.13 (0.5-1.4) 04/24/17 21:19 PTT (Actin FS) 27.6 SECONDS (26.0-38.0) 04/24/17 21:19 Specimen Source Arterial 05/16/17 08:37 Sample Site Right Radial 05/16/17 08:37 pH 7.48 (7.35-7.45) H 05/16/17 08:37 pCO2 41.0 mmHg (35.0-45.0) 05/16/17 08:37 pO2 78.0 mmHg (80.0-100.0) L 05/16/17 08:37 HCO3 29.9 mEq/L (20.0-26.0) H 05/16/17 08:37 Base Excess 6.4 mEq/L (-3.0-3.0) H 05/16/17 08:37 O2 Saturation 96.0 % (92.0-100.0) 05/16/17 08:37 Chau Test Positive 05/16/17 08:37 Vent Rate 16 05/16/17 08:37 Inspired O2 30 05/16/17 08:37 Tidal Volume 450 05/16/17 08:37 PEEP 3 05/16/17 08:37 Pressure (ins/psv/peep) NA 05/16/17 08:37 Critical Value LZHANG 05/16/17 08:37 Sodium 147 mEq/L (136-145) H 05/18/17 04:50 Potassium 4.3 mEq/L (3.5-5.1) 05/18/17 04:50 Chloride 118 mEq/L (98-107) H 05/18/17 04:50 Carbon Dioxide 26.9 mEq/L (21.0-31.0) 05/18/17 04:50 Anion Gap 6.4 (7.0-16.0) L 05/18/17 04:50 BUN 73 mg/dL (7-25) H 05/18/17 04:50 Creatinine 1.5 mg/dL (0.7-1.3) H 05/18/17 04:50 Est GFR ( Amer) > 60.0 ml/min (>90) 05/18/17 04:50 Est GFR (Non-Af Amer) 51.3 ml/min 05/18/17 04:50 BUN/Creatinine Ratio 48.7 05/18/17 04:50 Glucose 140 mg/dL (70-105) H 05/18/17 04:50 POC Glucose 130 MG/DL (70 - 105) H 05/18/17 00:12 Hemoglobin A1c % 6.7 % (4.0-6.0) H 04/22/17 05:04 Whole Bld Lactic Acid 1.66 mmol/L (0.60-1.99) 05/12/17 04:40 Uric Acid 3.6 mg/dL (4.4-7.6) L 04/20/17 07:00 Calcium 10.4 mg/dL (8.6-10.3) H 05/18/17 04:50 Phosphorus 5.2 mg/dL (2.5-5.0) H 05/18/17 04:50 Magnesium 2.4 mg/dL (1.9-2.7) 05/18/17 04:50 Total Bilirubin 0.7 mg/dL (0.3-1.0) 05/18/17 04:50 Direct Bilirubin 0.35 mg/dL (0.0-0.2) H 05/18/17 04:50 AST 93 U/L (13-39) H 05/18/17 04:50 ALT 42 U/L (7-52) 05/18/17 04:50 Alkaline Phosphatase 215 U/L (34-104) H 05/18/17 04:50 Ammonia 42 umol/L (16-53) 05/18/17 04:50 Creatine Kinase 136 U/L (30-223) 04/14/17 14:55 Troponin I 0.01 ng/mL (0.01-0.05) 04/22/17 05:04 C-Reactive Protein 27.5 mg/dL (0.0-0.9) H 05/15/17 04:29 B-Natriuretic Peptide 20.7 pg/mL (5.0-100.0) 05/13/17 04:27 Total Protein 6.1 gm/dL (6.0-8.3) 05/18/17 04:50 Albumin 1.6 gm/dL (4.2-5.5) L 05/18/17 04:50 Globulin 4.5 gm/dL 05/18/17 04:50 Albumin/Globulin Ratio 0.4 (1.0-1.8) L 05/18/17 04:50 Prealbumin 7 mg/dL (10-36) L 05/15/17 04:29 Triglycerides 281 mg/dL (<150) H 05/15/17 04:29 Cholesterol 91 mg/dL (<200) 05/12/17 04:40 LDL Cholesterol Direct 38 mg/dL (75-193) L 04/14/17 14:55 HDL Cholesterol 13 mg/dL (23-92) L 04/14/17 14:55 Amylase 53 U/L (29-103) 05/09/17 06:00 Lipase 85 U/L (11-82) H 05/09/17 06:00 Urine Source [place] 05/03/17 13:38 Urine Color YELLOW 05/03/17 13:38 Urine Clarity TURBID (CLEAR) 05/03/17 13:38 Urine pH 7.5 05/03/17 13:38 Ur Specific [place] 1.010 (1.005-1.030) 05/03/17 13:38 Urine Protein NEGATIVE mg/dL (NEGATIVE) 05/03/17 13:38 Urine Glucose (UA) NEGATIVE mg/dL (NEGATIVE) 05/03/17 13:38 Urine Ketones NEGATIVE mg/dL (NEGATIVE) 05/03/17 13:38 Urine Blood MODERATE (NEGATIVE) H 05/03/17 13:38 Urine Nitrate NEGATIVE (NEGATIVE) 05/03/17 13:38 Urine Bilirubin NEGATIVE (NEGATIVE) 05/03/17 13:38 Urine Urobilinogen 0.2 E.U./dL (0.2 - 1.0) 05/03/17 13:38 Ur Leukocyte Esterase TRACE (NEGATIVE) H 05/03/17 13:38 Urine RBC 50-100 /hpf (0-5) H 05/03/17 13:38 Urine WBC 6-10 /hpf (0-5) H 05/03/17 13:38 Ur Epithelial Cells FEW /lpf (FEW) 05/03/17 13:38 Amorphous Sediment MANY URATES (NONE SEEN) 04/14/17 15:05 Urine Bacteria FEW /hpf (NONE SEEN) 05/03/17 13:38 Amikacin Peak 24.3 ug/mL (20.0-30.0) 05/15/17 23:04 Amikacin Trough 11.0 ug/mL (1.0-8.0) H 05/15/17 19:30 Vancomycin Trough 13.5 ug/mL (10-20) 04/19/17 19:20 Helicobacter pylori Ab NEGATIVE (NEGATIVE) 05/04/17 10:05 Blood Type O POSITIVE 05/02/17 07:12 Antibody Screen NEGATIVE 05/02/17 07:12 Crossmatch See Detail 05/02/17 07:12 - Physical Exam Vitals and I&O: Vital Signs Temp 98.2 F 05/18/17 04:00 Pulse 115 05/18/17 08:22 Resp 23 05/18/17 07:00 BP 119/76 05/18/17 08:22 Pulse Ox 100 05/18/17 07:38 Intake & Output 05/17/17 05/18/17 05/18/17 18:59 06:59 18:59 Intake Total 3683.333 1426.667 Output Total 2405 1750 Balance 1278.333 -323.333 Weight (lbs) 102.2 kg 99.11 kg Intake: Intake, IV Amount 2483.333 226.667 Levofloxacin 500mg/100mL 100 500 mg In 100 ml @ 100 mls/hr IV Q24HR [facility] Rx#: [id number] Multivitamin Inj 10 ml In 2383.333 Dextrose 70% 1,740 ml In Amino Acids 10% 500 ml In Intralipids 20% 150 ml @ 100 mls/hr IV .Q24H [facility]AN Rx#:[id number] Tigecycline 50 mg In 100 100 Sodium Chloride 0.9% 100 ml @ 100 mls/hr IV Q12HR [facility] Rx#:[id number] cefTAZidime 1 gm In 26.667 Sodium Chloride 0.9% 50 ml @ Per Protocol IV Q12HR [facility] Rx#:[id number] Oral 0 TPN/PPN 1200 1200 Output: Gastric Drainage 100 50 Urine 2275 1700 Stool 30 0 Other: # Bowel Movements 0 Active Medications: Current Medications Acetaminophen (Tylenol 650mg/20.3ml Suspension) 650 mg NG Q6H PRN PRN Reason: FEVER/PAIN Stop: 06/21/17 17:45 Last Admin: 05/15/17 09:50 Dose: 650 mg Albuterol/Ipratropium (Duoneb Neb) 3 ml HHN Q4HRT ARIAN Stop: 06/15/17 14:59 Last Admin: 05/18/17 07:31 Dose: 3 ml Amiodarone HCl (Cordarone) 200 mg NG BID [facility]AN Stop: 06/24/17 23:14 Last Admin: 05/18/17 08:21 Dose: 200 mg Budesonide (Pulmicort) 0.5 mg HHN BIDRT ARIAN Stop: 06/15/17 18:59 Last Admin: 05/18/17 07:31 Dose: 0.5 mg Chlorhexidine Gluconate (Peridex) 15 ml MM 0800,1999 [facility] Stop: 06/30/17 19:59 Last Admin: 05/18/17 08:21 Dose: 15 ml Enalaprilat (Vasotec) 2.5 mg IVP Q4HR PRN PRN Reason: SBP>150 Stop: 07/06/17 15:59 Famotidine (Pepcid) 20 mg IVP Q6HR [facility]AN Stop: 07/06/17 11:59 Last Admin: 05/18/17 05:43 Dose: 20 mg Furosemide (Lasix) 40 mg IVP BID [facility] Stop: 07/12/17 16:59 Last Admin: 05/17/17 17:21 Dose: Not Given Multivitamins/Minerals 10 ml/Dextrose/ Amino Acids/Electrolytes/ Fat Emulsion Intravenous 2,400 mls @ 100 mls/hr IV .Q24H [facility]AN Stop: 06/23/17 15:59 Last Admin: 05/17/17 15:49 Dose: 100 mls/hr Dextrose/Sodium Chloride (D5-0.45ns) 1,000 mls @ 40 mls/hr IV .Q24H [facility]AN Stop: 06/23/17 15:59 Last Infusion: 05/16/17 06:00 Dose: Infused Norepinephrine Bitartrate 4 mg (/ Dextrose) 254 mls @ 0 mls/hr IV TITR PRN; Protocol; 0 MCG/MIN PRN Reason: BP MAINTENANCE (PER PROTOCOL) Stop: 06/30/17 09:25 Last Titration: 05/02/17 07:00 Dose: Infused Diltiazem HCl 125 mg/ Dextrose 125 mls @ 10 mls/hr IV TITR ARIAN; 10 MG/HR PRN Reason: Protocol Stop: 07/06/17 11:14 Last Titration: 05/11/17 18:00 Dose: 0 mg/hr, 0 mls/hr Tigecycline 50 mg/ Sodium (Chloride) 100 mls @ 100 mls/hr IV Q12HR [facility] Stop: 07/13/17 20:59 Last Admin: 05/18/17 08:15 Dose: 100 mls/hr Ceftazidime 1 gm/ Sodium (Chloride) 50 mls @ 0 mls/hr IV Q12HR [facility]AN PRN Reason: Per Protocol Stop: 07/16/17 20:59 Last Admin: 05/17/17 21:59 Dose: 100 mls/hr Levofloxacin (Levaquin Pb) 250 mg in 50 mls @ 50 mls/hr IV Q24HR [facility] Stop: 07/17/17 17:59 Lactobacillus Rhamnosus (Culturelle) 1 each PO DAILY [facility] Stop: 07/16/17 08:59 Last Admin: 05/18/17 08:22 Dose: Not Given Lorazepam (Ativan) 1 mg IVP Q4HR PRN; Protocol PRN Reason: Agitation Stop: 07/13/17 02:57 Last Admin: 05/18/17 05:43 Dose: 1 mg Metoclopramide HCl (Reglan) 10 mg IVP Q8HR [facility]AN Stop: 07/06/17 20:59 Last Admin: 05/18/17 04:32 Dose: 10 mg Metoprolol Tartrate (Lopressor) 25 mg PO BID [facility] Stop: 06/26/17 08:59 Last Admin: 05/18/17 08:22 Dose: Not Given Mineral Oil (Mineral Oil 30 Ml) 30 ml NG DAILY [facility] Stop: 07/04/17 12:29 Last Admin: 05/18/17 08:24 Dose: Not Given Miscellaneous (Vte Chemical Prophylaxis Screen/ Admission) 1 ea PRN PRN PRN Reason: PROTOCOL Stop: 07/01/17 14:44 Miscellaneous (Amikacin Iv Per Pharmacy) 1 ea PRN PRN PRN Reason: PROTOCOL Stop: 07/13/17 18:39 Miscellaneous (Probiotic Screen) 1 ea MC PRN PRN PRN Reason: PROTOCOL Stop: 07/15/17 10:37 Morphine Sulfate (Morphine) 2 mg IVP Q4H PRN PRN Reason: PAIN Stop: 07/11/17 16:49 Last Admin: 05/18/17 03:13 Dose: 2 mg Sulfacetamide Sodium (Sulamyd 10% Ophth Soln) 1 drop EACH EYE Q6HR [facility] Stop: 07/16/17 11:59 Last Admin: 05/18/17 00:13 Dose: 1 drop General: Other (sedated and intubated.) HEENT: Atraumatic, PERRLA, EOMI, Mucous membr. moist/pink, Other (oral endotracheal tube,NG tube+) Neck: Supple, +2 carotid pulse wo bruit Cardiovascular: Regular rate, Normal S1, Normal S2 Lungs: Other (diffuse rhonchi.) Abdomen: Soft, Other ( wound VAC anterior open abdominal wall wound. L colostomy retracted but still functional w/ stool output.) Extremities: Edema, Other (no edema and cyanosis.) Neurological: Reflexes 2+, Other (Patient is intubated and sedated) Psych/Mental Status: Other (Sedated) - Procedures Procedures: Procedures Procedure Code Date BYPASS SIGMOID COLON TO CUTANEOUS, OPEN APPROACH [id number] 04/14/17 INSERT EMERGENCY AIRWAY 44842 04/14/17 INSERTION OF ENDOTRACHEAL AIRWAY INTO TRACHEA, VIA OPENING [id number] 04/14/17 PARTIAL REMOVAL OF COLON 94436 04/14/17 RESECTION OF SIGMOID COLON, OPEN APPROACH [id number] 04/14/17 RESPIRATORY VENTILATION, 24-96 CONSECUTIVE HOURS [id number] 04/14/17 VENT MGMT INPAT INIT DAY 31519 04/14/17 VENT MGMT INPAT SUBQ DAY 16795 04/14/17 Assessment/Plan - Problem List Patient Problems: All Active Problems Abscess of sigmoid colon due to diverticulitis (Acute) K57.20 Diverticulitis of sigmoid colon (Acute) K57.32 Obesity (Acute) E66.9 Perforation of sigmoid colon due to diverticulitis (Acute) K57.20 Peritonitis (acute) generalized (Acute) K65.0 - Assessment Assessment: Current Active Problems Problem Status Onset Abscess of sigmoid colon due to diverticulitis Acute Diverticulitis of sigmoid colon Acute Obesity Acute Perforation of sigmoid colon due to diverticulitis Acute Peritonitis (acute) generalized Acute Perforated diverticulitis status post expiratory laparotomy and colostomy placement. Postoperative respiratory failure on vent. Obesity. Conjunctivitis. MDROs organisms positive culture. GI bleed stable. Suspect developing ARDS. Polymicrobial peritonitis due to perforation.. Asthma. SVT currently on Cardizem drip Electrolyte imbalance. SEKOU . Hypernatremia. Encephalopathy due to metabolic and infectious etio. Open surgical wound with wound VAC. Altered mental status secondary to metabolic and infectious encephalopathy. Postop anemia. - Plan Plan: ICU status. Vent support. Nebulizer treatment. Pulmonary toilet. IV antibiotics as per ID. TPN. Sulfacetamide eye drops. Renal consult and follow-up. Corrected electrolytes. PEG and tracheostomy this week. Rate control with cardizem drip. Blood pressure control Wound care with wound VAC Surgical follow-up ID follow-up Cardiology follow-up Pulmonary follow-up ICU care. Symptoms management. Medication management. IV PPI. Monitor lab. Guarded prognosis. Chronic management of his medical illnesses. Care plan discussed with RN. Nutritional Asmnt/Malnutr-PDOC - Dietary Evaluation Malnutrition Findings (Please click <Entered> for more info): Nutritional Asmnt/Malnutrition Start: 04/19/17 14: 21 Text: Status: Complete Freq: Document 04/19/17 14:21 GSUN (Rec: 04/19/17 14:58 [id number]) Nutritional Asmnt/Malnutrition Patient General Information Nutritional Screening Moderate Risk Screening Diagnosis Sepsis, diverticulitis, peritonitis Pertinent Medical Hx/Surgical Hx Asthma, diverticulosis Subjective Information 56 year old male frome home. Pt was restless, moving extremities during visit. 04/14 : sigmoid colectomy, end colostomy, abscess drainage, diffuse peritontis. 04/16: pt started PPN. 04/17: central line and started on TPN. Spoke to family at bedside, explained parenteral nutrition , family undersoto and has no further question at this time. Weight discrepancies noted in EMR, family does not know UBW , estimated nutritional needs based Current Diet Order/ Nutrition Support TPN D10% AA4.25% at 90ml/hr with IL20% 150ml, providing 1401.6kcal Pertinent Medications Dilaudid, Novolog, Culturelle, Magnesium Sulfate, Vancomycin , TPN, Morphine, Multivitamins , Zofran, Protonix, Nacl0.9% Pertinent Labs 04/14: triglycerides 106, total bilirubin 1.1H, glucose 116H 04/17: magnesium 2.5, phsophorus 3.2 04/19: magnesium 1.8L, phosphorus 2.4L, BUN 28H, creatinine 1.3, glucose 154H, total bilirubin 1.1H, triglycerides 238H Nutritional Hx/Data Height 1.7 m Height (Calculated Centimeters) 170.2 Current Weight (lbs) 95.254 kg Weight (Calculated Kilograms) 95.3 Weight (Calculated Grams) 82259.4 [place] Body Weight 148 Weight Status Overweight GI Symptoms Skin Integrity/Comment: [place] 14. Facial non-pitting 1+, bilateral hands pitting 1+ Estimated Nutritional Goals Calories/Kcals/Kg IBW 148/67.3kg Kcals Calculated 2019-2356kcal (30-35kcal/kg) Protein Calculated 101-135g (1.5-2g/kg) Fluid: ml Per MD Nutritional Problem 1. Problem Problem Altered GI function related to Etiology abscess and perforation of sigmoid colon due to diverticulitis aeb Signs/Symptoms: post-operative, on TPN Intervention/Recommendation Comments 1. Recommend TPN D15% AA5.5% at 100ml/hr with IL20% 150ml, providing 2400ml total volume, 2052kcal, 132g protein, meeting 100% of estimated nutritional needs. Carb load 2 .6mg/kg/min (using 210lb adm weight). 2. Monitor for possible refeeding syndrome, 04/18: phsophorus 2.1L, 04/19: magnesium 1.9. 3. Monitor triglycerides, total bilirubin, glucose, renal labs. Expected Outcomes/Goals Expected Outcomes/Goals 1. Pt to meet 100% of estimated nutritional needs on TPN.
[2017-05-18] MEDS: cefTAZidime 1 GM in Sodium Chloride 0.9% 50 ML IV SCH ×2 (09:13→21:02)
[2017-05-18] MEDS ORDERED: Albumin 25% 25gm/100mL 25 GM/100 ML BTL IV ONE ×2 (10:37→21:11)
[2017-05-18 10:45] LABS: BE(B) 3.5 mEq/L (-3.0-3.0); HCO3 27.7 mEq/L (20.0-26.0); pH 7.45 (7.35-7.45)
[2017-05-18 10:46] LABS: ABG SOURCE Arterial; ALLEN TEST PASS; CRITICAL VALUES REPORTED BY PW; FIO2 30; MECH RATE 16; MECH VT 450
--- NOTE | 2017-05-18 11:02 | Diagnostic Imaging Report ---
Renal ultrasound HISTORY: Abnormal renal function tests The right kidney measures 11.4 x 6.1 x 6.2 cm. No focal lesions. No hydronephrosis. The left kidney measures 12.2 x 6.3 x 6.5 cm. A 2.8 cm sonolucent lesion is seen within the upper pole consistent with a cyst. A 2.0 cm sonolucent lesion is noted in close proximity to the renal pelvis also consistent with a cyst. A 1.8 cm echogenic density is noted in the upper medullary area. A small calculus cannot be excluded. No definite hydronephrosis. No obvious intraluminal abnormality seen within urinary bladder. Incomplete visualization of the lower portion of the bladder. IMPRESSION: 1. Findings consistent with left renal cysts 2. 1.8 cm density within the upper medullary region of the left kidney. Finding of questionable significance as no corresponding finding noted on a prior CT scan of 05/10/2017. A small calculus cannot be definitely excluded.
[2017-05-18] MEDS: Albumin 25% 25gm/100mL 25 GM/100 ML BTL IV SCH ×2 (12:09→21:32)
[2017-05-18] MEDS: TPN 10%-70% CUSTOM IV SCH (15:57)
[2017-05-18] MEDS: Levofloxacin 250mg/50mL 250 MG/50 ML BAG IV SCH (17:40)
[2017-05-18 17:59] LABS: URINE BILIRUBIN NEGATIVE (NEGATIVE); URINE BLOOD MODERATE (NEGATIVE); URINE GLUCOSE (UA) NEGATIVE (NEGATIVE); URINE KETONE NEGATIVE (NEGATIVE); URINE PH 5.5 (4.6 - 8.0); URINE PROTEIN NEGATIVE (NEGATIVE); URINE UROBILINOGEN 0.2 E.U./dL (0.2 - 1.0)
[2017-05-18 18:09] LABS: URINE COLOR YELLOW
[2017-05-18 18:11] LABS: URINE BACTERIA NONE SEEN /hpf (NONE SEEN); URINE EPITHELIAL CELLS FEW /lpf (FEW)
[2017-05-18 18:12] LABS: URINE SPERM MANY /hpf (NONE SEEN)
--- NOTE | 2017-05-18 22:45 | Progress Notes ---
DATE: 05/18/2017 PULMONARY PROGRESS NOTE PROBLEM LIST: 1. Encephalopathy. 2. Persistent respiratory failure. 3. Persistent abdominal sepsis. SYMPTOMS: Nil. The patient is quite obtunded, no respiratory distress, etc. PHYSICAL EXAMINATION: VITAL SIGNS: Temperature on the cooling mattress is 98.1, blood pressure is 96 , saturation 98 on 30% AC 16. NECK: Veins not visualized. CHEST: Shows diminished air entry. No other adventitious breath sounds. HEART: Regular. ABDOMEN: automatic bow maker machine tender with some guarding in lower abdomen. LABORATORY DATA: White count is 11.5. ABG shows normal acid-base balance on 30% of oxygen. Electrolytes show sodium of 147 and creatinine is 1.5 and BUN is 73. ASSESSMENT: The patient is clinically status quo, not much changed. PLANS AND SUGGESTIONS: We will continue supportive care and we will consider awaiting for tracheostomy to be done and go from there. JOB# [id number]
[2017-05-19] MEDS: INSULIN ASPART SLIDING SCALE 100 UNITS/ML UNIT SUBQ SCH ×5 (00:34→23:44)
[2017-05-19] MEDS: Albuterol/Ipratropium Neb 3 ML AERS HHN SCH ×6 (03:59→22:40)
[2017-05-19 05:52] LABS: HEMATOCRIT 24.8 % (39.0-49.0); MEAN CELL VOLUME 81.9 fl (80-99); MEAN CORPUSCULAR HEMOGLOBIN 26.5 pg (26.0-30.0); MEAN CORPUSCULAR HGB CONC 32.4 pg (28.0-36.0); MEAN PLATELET VOLUME 9.5 fl; PLATELET COUNT 265 Th/cmm (150-400); RED BLOOD COUNT 3.03 Mil/cmm (4.30-5.70); RED CELL DISTRIBUTION WIDTH 17.2 % (11.5-20.0)
[2017-05-19 06:05] LABS: ALB/GLOB RATIO 0.5 (1.0-1.8); ALKALINE PHOSPHATASE 197 U/L (34-104); ANION GAP 8.6 (7.0-16.0); BILIRUBIN,TOTAL 0.8 mg/dL (0.3-1.0); BUN/CREATININE RATIO 53.3; CALCIUM SERUM 10.8 mg/dL (8.6-10.3); CARBON DIOXIDE 26.4 mEq/L (21.0-31.0); CHLORIDE 119 mEq/L (98-107); CREATININE - SERUM 1.5 mg/dL (0.7-1.3); GLUCOSE 138 mg/dL (70-105); MAGNESIUM 2.6 mg/dL (1.9-2.7); PHOSPHOROUS 3.8 mg/dL (2.5-5.0); SGOT 81 U/L (13-39); SGPT/ALT 39 U/L (7-52); SODIUM SERUM 150 mEq/L (136-145)
[2017-05-19 06:07] LABS: WHITE BLOOD COUNT 8.9 Th/cmm (4.8-10.8)
[2017-05-19 06:08] LABS: BUN - UREA NITROGEN 80 mg/dL (7-25)
[2017-05-19] MEDS: D5-0.45NS 1,000 ML IV SCH (06:50)
[2017-05-19 07:17] LABS: BAND NEUTROPHILE 2 % (0-10); BASOPHIL 1 % (0-3); EOSINOPHIL 22 % (0-5); NEUTROPHILS 51 % (40-80); PLATELET ESTIMATE ADEQUATE (NORMAL); PLATELET MORPHOLOGY PLATELET CLUMPS SEEN (NORMAL); TOTAL CELLS COUNTED 100
[2017-05-19] MEDS: Budesonide 0.5 Mg/2 mL Ud HHN SCH ×2 (07:35→19:09)
[2017-05-19 07:42] LABS: HEMOGLOBIN 8.2 gm/dL (13.2-17.3); MEAN CELL VOLUME 80.7 fl (80-99); MEAN CORPUSCULAR HEMOGLOBIN 26.6 pg (26.0-30.0); MEAN PLATELET VOLUME 8.9 fl; PLATELET COUNT 276 Th/cmm (150-400); RED BLOOD COUNT 3.09 Mil/cmm (4.30-5.70); RED CELL DISTRIBUTION WIDTH 17.5 % (11.5-20.0); WHITE BLOOD COUNT 7.8 Th/cmm (4.8-10.8)
[2017-05-19] MEDS: Albumin 25% 25gm/100mL 25 GM/100 ML BTL IV SCH ×3 (07:47→20:26)
[2017-05-19] MEDS: Metoclopramide 5 mg/mL 2mL Vial IVP SCH ×3 (07:53→20:26)
[2017-05-19 08:00] LABS: INR 1.3 (0.5-1.4); PROTHROMBIN TIME (TEST) 13.7 SECONDS (9.5-11.5)
[2017-05-19] MEDS: cefTAZidime 1 GM in Sodium Chloride 0.9% 50 ML IV SCH ×2 (08:00→22:25)
[2017-05-19] MEDS: Chlorhexidine Gluconate 0.12% 15mL Mouthwash MM SCH ×2 (08:34→20:35)
[2017-05-19] MEDS: Venelex 60gm Tube TP SCH (08:35)
[2017-05-19] MEDS: Lactobacillus Rhamnosus 10 Billion CFU Capsule PO SCH (08:35)
[2017-05-19 08:48] LABS: BAND NEUTROPHILE 2 % (0-10); EOSINOPHIL 24 % (0-5); NEUTROPHILS 54 % (40-80); PLATELET ESTIMATE ADEQUATE (NORMAL); PLATELET MORPHOLOGY PLATELET CLUMPS SEEN (NORMAL); TOTAL CELLS COUNTED 100
--- NOTE | 2017-05-19 09:28 | General Progress Note ---
Subjective - Review of Systems Service Date: 05/19/17 Subjective: encephalopathy, obtunded, nonverbal Objective - Results Result Diagrams: 05/19/17 07:37 05/19/17 05:15 Recent Labs: Laboratory Last Values WBC 7.8 Th/cmm (4.8-10.8) 05/19/17 07:37 RBC 3.09 Mil/cmm (4.30-5.70) L 05/19/17 07:37 Hgb 8.2 gm/dL (13.2-17.3) L 05/19/17 07:37 Hct 25.0 % (39.0-49.0) L 05/19/17 07:37 MCV 80.7 fl (80-99) 05/19/17 07:37 MCH 26.6 pg (26.0-30.0) 05/19/17 07:37 MCHC Differential 33.0 pg (28.0-36.0) 05/19/17 07:37 RDW 17.5 % (11.5-20.0) 05/19/17 07:37 Plt Count 276 Th/cmm (150-400) 05/19/17 07:37 MPV 8.9 fl 05/19/17 07:37 Neutrophils % 61.3 % (40.0-80.0) 05/15/17 04:29 Band Neutrophils % 2 % (0-10) 05/19/17 07:37 Lymphocytes % 17.3 % (20.0-50.0) L 05/15/17 04:29 Monocytes % 8.6 % (2.0-10.0) 05/15/17 04:29 Eosinophils % 12.3 % (0.0-5.0) H 05/15/17 04:29 Basophils % 0.5 % (0.0-2.0) 05/15/17 04:29 Neutrophils (Manual) 54 % (40-80) 05/19/17 07:37 Lymphocytes 12 % (20-50) L 05/19/17 07:37 Monocytes 8 % (2-10) 05/19/17 07:37 Eosinophils 24 % (0-5) H 05/19/17 07:37 Basophils 1 % (0-3) 05/19/17 05:15 Metamyelocytes 1 % (0-0) H 04/22/17 05:04 Platelet Estimate ADEQUATE (NORMAL) 05/19/17 07:37 Platelet Morphology PLATELET CLUMPS SEEN (NORMAL) 05/19/17 07:37 Anisocytosis 1+ 04/28/17 06:08 Microcytosis 1+ 05/02/17 05:15 RBC Morph Micro Appear NORMAL (NORMAL) 05/19/17 07:37 ESR > 140 mm/hr (0-20) H 04/20/17 07:00 PT 13.7 SECONDS (9.5-11.5) H 05/19/17 07:37 INR 1.30 (0.5-1.4) 05/19/17 07:37 PTT (Actin FS) 35.0 SECONDS (26.0-38.0) 05/19/17 07:37 Specimen Source Arterial 05/18/17 10:02 Sample Site Left Radial 05/18/17 10:02 pH 7.45 (7.35-7.45) 05/18/17 10:02 pCO2 40.0 mmHg (35.0-45.0) 05/18/17 10:02 pO2 97.0 mmHg (80.0-100.0) 05/18/17 10:02 HCO3 27.7 mEq/L (20.0-26.0) H 05/18/17 10:02 Base Excess 3.5 mEq/L (-3.0-3.0) H 05/18/17 10:02 O2 Saturation 98.0 % (92.0-100.0) 05/18/17 10:02 Chau Test PASS 05/18/17 10:02 Vent Rate 16 05/18/17 10:02 Inspired O2 30 05/18/17 10:02 Tidal Volume 450 05/18/17 10:02 PEEP 3 05/18/17 10:02 Pressure (ins/psv/peep) NA 05/16/17 08:37 Critical Value PW 05/18/17 10:02 Sodium 150 mEq/L (136-145) H 05/19/17 05:15 Potassium 4.0 mEq/L (3.5-5.1) 05/19/17 05:15 Chloride 119 mEq/L (98-107) H 05/19/17 05:15 Carbon Dioxide 26.4 mEq/L (21.0-31.0) 05/19/17 05:15 Anion Gap 8.6 (7.0-16.0) 05/19/17 05:15 BUN 80 mg/dL (7-25) H 05/19/17 05:15 Creatinine 1.5 mg/dL (0.7-1.3) H 05/19/17 05:15 Est GFR ( Amer) > 60.0 ml/min (>90) 05/19/17 05:15 Est GFR (Non-Af Amer) 51.3 ml/min 05/19/17 05:15 BUN/Creatinine Ratio 53.3 05/19/17 05:15 Glucose 138 mg/dL (70-105) H 05/19/17 05:15 POC Glucose 130 MG/DL (70 - 105) H 05/19/17 05:53 Hemoglobin A1c % 6.7 % (4.0-6.0) H 04/22/17 05:04 Whole Bld Lactic Acid 1.66 mmol/L (0.60-1.99) 05/12/17 04:40 Uric Acid 3.6 mg/dL (4.4-7.6) L 04/20/17 07:00 Calcium 10.8 mg/dL (8.6-10.3) H 05/19/17 05:15 Phosphorus 3.8 mg/dL (2.5-5.0) 05/19/17 05:15 Magnesium 2.6 mg/dL (1.9-2.7) 05/19/17 05:15 Total Bilirubin 0.8 mg/dL (0.3-1.0) 05/19/17 05:15 Direct Bilirubin 0.35 mg/dL (0.0-0.2) H 05/18/17 04:50 AST 81 U/L (13-39) H 05/19/17 05:15 ALT 39 U/L (7-52) 05/19/17 05:15 Alkaline Phosphatase 197 U/L (34-104) H 05/19/17 05:15 Ammonia 42 umol/L (16-53) 05/18/17 04:50 Creatine Kinase 136 U/L (30-223) 04/14/17 14:55 Troponin I 0.01 ng/mL (0.01-0.05) 04/22/17 05:04 C-Reactive Protein 27.5 mg/dL (0.0-0.9) H 05/15/17 04:29 B-Natriuretic Peptide 20.7 pg/mL (5.0-100.0) 05/13/17 04:27 Total Protein 6.4 gm/dL (6.0-8.3) 05/19/17 05:15 Albumin 2.2 gm/dL (4.2-5.5) L 05/19/17 05:15 Globulin 4.2 gm/dL 05/19/17 05:15 Albumin/Globulin Ratio 0.5 (1.0-1.8) L 05/19/17 05:15 Prealbumin 7 mg/dL (10-36) L 05/15/17 04:29 Triglycerides 281 mg/dL (<150) H 05/15/17 04:29 Cholesterol 91 mg/dL (<200) 05/12/17 04:40 LDL Cholesterol Direct 38 mg/dL (75-193) L 04/14/17 14:55 HDL Cholesterol 13 mg/dL (23-92) L 04/14/17 14:55 Amylase 53 U/L (29-103) 05/09/17 06:00 Lipase 85 U/L (11-82) H 05/09/17 06:00 Urine Source SEN PORT 05/18/17 16:30 Urine Color YELLOW 05/18/17 16:30 Urine Clarity CLOUDY (CLEAR) 05/18/17 16:30 Urine pH 5.5 (4.6 - 8.0) 05/18/17 16:30 Ur Specific [place] 1.010 (1.005-1.030) 05/18/17 16:30 Urine Protein NEGATIVE mg/dL (NEGATIVE) 05/18/17 16:30 Urine Glucose (UA) NEGATIVE mg/dL (NEGATIVE) 05/18/17 16:30 Urine Ketones NEGATIVE mg/dL (NEGATIVE) 05/18/17 16:30 Urine Blood MODERATE (NEGATIVE) H 05/18/17 16:30 Urine Nitrate NEGATIVE (NEGATIVE) 05/18/17 16:30 Urine Bilirubin NEGATIVE (NEGATIVE) 05/18/17 16:30 Urine Urobilinogen 0.2 E.U./dL (0.2 - 1.0) 05/18/17 16:30 Ur Leukocyte Esterase TRACE (NEGATIVE) H 05/18/17 16:30 Urine RBC 10-25 /hpf (0-5) H 05/18/17 16:30 Urine WBC 6-10 /hpf (0-5) H 05/18/17 16:30 Ur Epithelial Cells FEW /lpf (FEW) 05/18/17 16:30 Amorphous Sediment MANY URATES (NONE SEEN) 04/14/17 15:05 Urine Bacteria NONE SEEN /hpf (NONE SEEN) 05/18/17 16:30 Hyaline Casts 5-10 /lpf (0-2) H 05/18/17 16:30 Urine Sperm MANY /hpf (NONE SEEN) 05/18/17 16:30 Amikacin Peak 24.3 ug/mL (20.0-30.0) 05/15/17 23:04 Amikacin Trough 11.0 ug/mL (1.0-8.0) H 05/15/17 19:30 Random Amikacin 6.7 ug/ml (1.0-30.0) 05/17/17 04:25 Vancomycin Trough 13.5 ug/mL (10-20) 04/19/17 19:20 Helicobacter pylori Ab NEGATIVE (NEGATIVE) 05/04/17 10:05 Blood Type O POSITIVE 05/02/17 07:12 Antibody Screen NEGATIVE 05/02/17 07:12 Crossmatch See Detail 05/02/17 07:12 - Physical Exam Vitals and I&O: Vital Signs Temp 97.7 F 05/19/17 04:00 Pulse 77 05/19/17 08:35 Resp 21 05/19/17 07:00 BP 96/47 05/19/17 08:35 Pulse Ox 100 05/19/17 07:36 Intake & Output 05/18/17 05/19/17 05/19/17 18:59 06:59 18:59 Intake Total 4001.6 450 50 Output Total 2200 1750 Balance 1801.6 -1300 50 Weight (lbs) 102.569 kg 102.058 kg Intake: Intake, IV Amount 2801.6 250 50 Albumin 25% 25gm/100mL 25 100 100 gm In 100 ml @ 50 mls/hr IV Q8H [facility] Rx#:[id number] Amikacin 400 mg In 101.6 Dextrose 5% 100 ml @ 100 mls/hr IV Q12H [facility] Rx#: [id number] Levofloxacin 250mg/50mL 50 250 mg In 50 ml @ 50 mls/ hr IV Q24HR [facility] Rx#: [id number] Multivitamin Inj 10 ml In 2400 Dextrose 70% 1,740 ml In Amino Acids 10% 500 ml In Intralipids 20% 150 ml @ 100 mls/hr IV .Q24H [facility] Rx#:[id number] Tigecycline 50 mg In 100 100 Sodium Chloride 0.9% 100 ml @ 100 mls/hr IV Q12HR [facility] Rx#:[id number] cefTAZidime 1 gm In 50 50 50 Sodium Chloride 0.9% 50 ml @ Per Protocol IV Q12HR [facility] Rx#:[id number] Oral 0 TPN/PPN 1200 Albumin 200 Output: Gastric Drainage 100 100 Urine 2100 1650 Stool 0 Active Medications: Current Medications Acetaminophen (Tylenol 650mg/20.3ml Suspension) 650 mg NG Q6H PRN PRN Reason: FEVER/PAIN Stop: 06/21/17 17:45 Last Admin: 05/15/17 09:50 Dose: 650 mg Albuterol/Ipratropium (Duoneb Neb) 3 ml HHN Q4HRT [facility] Stop: 06/15/17 14:59 Last Admin: 05/19/17 07:35 Dose: 3 ml Amiodarone HCl (Cordarone) 200 mg NG BID [facility] Stop: 06/24/17 23:14 Last Admin: 05/19/17 08:35 Dose: Not Given Budesonide (Pulmicort) 0.5 mg HHN BIDRT [facility] Stop: 06/15/17 18:59 Last Admin: 05/19/17 07:35 Dose: 0.5 mg Chlorhexidine Gluconate (Peridex) 15 ml MM 0800,1999 [facility] Stop: 06/30/17 19:59 Last Admin: 05/19/17 08:34 Dose: 15 ml Enalaprilat (Vasotec) 2.5 mg IVP Q4HR PRN PRN Reason: SBP>150 Stop: 07/06/17 15:59 Famotidine (Pepcid) 20 mg IVP DAILY [facility] Stop: 07/18/17 08:59 Last Admin: 05/19/17 08:42 Dose: 20 mg Furosemide (Lasix) 40 mg IVP BID [facility] Stop: 07/12/17 16:59 Last Admin: 05/19/17 08:35 Dose: Not Given Multivitamins/Minerals 10 ml/Dextrose/ Amino Acids/Electrolytes/ Fat Emulsion Intravenous 2,400 mls @ 100 mls/hr IV .Q24H [facility] Stop: 06/23/17 15:59 Last Admin: 05/18/17 15:57 Dose: 100 mls/hr Dextrose/Sodium Chloride (D5-0.45ns) 1,000 mls @ 40 mls/hr IV .Q24H [facility] Stop: 06/23/17 15:59 Last Admin: 05/19/17 06:50 Dose: 40 mls/hr Norepinephrine Bitartrate 4 mg (/ Dextrose) 254 mls @ 0 mls/hr IV TITR PRN; Protocol; 0 MCG/MIN PRN Reason: BP MAINTENANCE (PER PROTOCOL) Stop: 06/30/17 09:25 Last Titration: 05/02/17 07:00 Dose: Infused Diltiazem HCl 125 mg/ Dextrose 125 mls @ 10 mls/hr IV TITR [facility]; 10 MG/HR PRN Reason: Protocol Stop: 07/06/17 11:14 Last Titration: 05/11/17 18:00 Dose: 0 mg/hr, 0 mls/hr Tigecycline 50 mg/ Sodium (Chloride) 100 mls @ 100 mls/hr IV Q12HR [facility] Stop: 07/13/17 20:59 Last Admin: 05/19/17 08:30 Dose: 100 mls/hr Ceftazidime 1 gm/ Sodium (Chloride) 50 mls @ 0 mls/hr IV Q12HR [facility] PRN Reason: Per Protocol Stop: 07/16/17 20:59 Last Infusion: 05/19/17 08:30 Dose: Infused Levofloxacin (Levaquin Pb) 250 mg in 50 mls @ 50 mls/hr IV Q24HR [facility] Stop: 07/17/17 17:59 Last Infusion: 05/18/17 18:40 Dose: Infused Albumin Human (Albuminar 25%) 25 gm in 100 mls @ 50 mls/hr IV Q8H [facility] Stop: 05/20/17 05:59 Last Admin: 05/19/17 07:47 Dose: 50 mls/hr Amikacin Sulfate 400 mg/ (Dextrose) 101.6 mls @ 100 mls/hr IV Q12H [facility] Stop: 07/17/17 13:59 Last Admin: 05/19/17 01:36 Dose: 100 mls/hr Insulin Aspart (Novolog Insulin Sliding Scale) 0 units SUBQ Q6HR [facility] PRN Reason: Protocol Stop: 07/17/17 11:59 Last Admin: 05/19/17 06:01 Dose: Not Given Lactobacillus Rhamnosus (Culturelle) 1 each PO DAILY [facility] Stop: 07/16/17 08:59 Last Admin: 05/19/17 08:35 Dose: Not Given Lorazepam (Ativan) 1 mg IVP Q4HR PRN; Protocol PRN Reason: Agitation Stop: 07/13/17 02:57 Last Admin: 05/18/17 05:43 Dose: 1 mg Metoclopramide HCl (Reglan) 10 mg IVP Q8HR [facility] Stop: 07/06/17 20:59 Last Admin: 05/19/17 07:53 Dose: 10 mg Metoprolol Tartrate (Lopressor) 25 mg PO BID [facility] Stop: 06/26/17 08:59 Last Admin: 05/19/17 08:34 Dose: Not Given Mineral Oil (Mineral Oil 30 Ml) 30 ml NG DAILY [facility] Stop: 07/04/17 12:29 Last Admin: 05/19/17 08:34 Dose: Not Given Miscellaneous (Vte Chemical Prophylaxis Screen/ Admission) 1 ea MC PRN PRN PRN Reason: PROTOCOL Stop: 07/01/17 14:44 Miscellaneous (Amikacin Iv Per Pharmacy) 1 ea PRN PRN PRN Reason: PROTOCOL Stop: 07/13/17 18:39 Miscellaneous (Probiotic Screen) 1 ea PRN PRN PRN Reason: PROTOCOL Stop: 07/15/17 10:37 Miscellaneous (Tpn Per Pharmacy) 1 ea PRN PRN PRN Reason: PROTOCOL Stop: 07/17/17 15:12 Morphine Sulfate (Morphine) 2 mg IVP Q4H PRN PRN Reason: PAIN Stop: 07/11/17 16:49 Last Admin: 05/18/17 03:13 Dose: 2 mg Sulfacetamide Sodium (Sulamyd 10% Oph Soln) 1 drop EACH EYE Q6HR [facility] Stop: 07/16/17 11:59 Last Admin: 05/19/17 06:51 Dose: 1 drop General: Other (sedated and intubated.) HEENT: Atraumatic, PERRLA, EOMI, Mucous membr. moist/pink, Other (oral endotracheal tube,NG tube+) Neck: Supple, +2 carotid pulse wo bruit Cardiovascular: Regular rate, Normal S1, Normal S2 Lungs: Other (diffuse rhonchi.) Abdomen: Soft, Other ( wound VAC anterior open abdominal wall wound. L colostomy retracted but still functional w/ stool output.) Extremities: Edema, Other (no edema and cyanosis.) Neurological: Reflexes 2+, Other (Patient is intubated and sedated) Psych/Mental Status: Other (Sedated) - Procedures Procedures: Procedures Procedure Code Date BYPASS SIGMOID COLON TO CUTANEOUS, OPEN APPROACH [id number] 04/14/17 INSERT EMERGENCY AIRWAY 09512 04/14/17 INSERTION OF ENDOTRACHEAL AIRWAY INTO TRACHEA, VIA OPENING [id number] 04/14/17 PARTIAL REMOVAL OF COLON 91627 04/14/17 RESECTION OF SIGMOID COLON, OPEN APPROACH [id number] 04/14/17 RESPIRATORY VENTILATION, 24-96 CONSECUTIVE HOURS [id number] 04/14/17 VENT MGMT INPAT INIT DAY 74831 04/14/17 VENT MGMT INPAT SUBQ DAY 48786 04/14/17 Assessment/Plan - Problem List Patient Problems: All Active Problems Abscess of sigmoid colon due to diverticulitis (Acute) K57.20 Diverticulitis of sigmoid colon (Acute) K57.32 Obesity (Acute) E66.9 Perforation of sigmoid colon due to diverticulitis (Acute) K57.20 Peritonitis (acute) generalized (Acute) K65.0 - Assessment Assessment: s/p ex lap, sigmoid colectomy, drainage of peritonitis, lysis adhesions, ROLANDO drain placement 04/14 icu status encephalopathic, confused, obtunded, intubated. continue IVfluids +TPN renal insufficiency, elevated BUN/creat dvt prophylaxis Lovenox SQ colostomy end necrosed and sloughed, severely retracted, but functional w/ stool output..... poor candidate for revision of colostomy open abd wound, wound vac in place, changed q 3days, wound marge, still some yellow slough. continue iv abx. sen cath supportive care.... s/w family; guarded prognosis. EGD 05/04 results noted by Reyes/GI peptic ulcer disease, NGT trauma multiple prior CT abd/pelvis....postop changes, no obvious drainable intra-abd abscess or collections tachycardia, normal WBC electrolyte derangement, renal f/u, fluid management. may need HD ok to give PO meds via NGT TF via NGT held, residuals high, NGT to suction moderate output [facility] is following recommended to family tracheostomy, EGD + PEG, change central line...Dr. Bro feels pt is high risk for extubation.....Dr. Bro recommends tracheostomy. planned trach for this am, but pt's bp is low, hypotension, unstable. will reschedule trach when more stable bp and medically optomized CT abd/pelvis results noted, no obvious drainable abscess or collection, no free air. continue wound vac to open abd wound. Nutritional Asmnt/Malnutr-PDOC - Dietary Evaluation Malnutrition Findings (Please click <Entered> for more info): Nutritional Asmnt/Malnutrition Start: 04/19/17 14: 21 Text: Status: Complete Freq: Document 04/19/17 14:21 GSUN (Rec: 04/19/17 14:58 [id number]) Nutritional Asmnt/Malnutrition Patient General Information Nutritional Screening Moderate Risk Screening Diagnosis Sepsis, diverticulitis, peritonitis Pertinent Medical Hx/Surgical Hx Asthma, diverticulosis Subjective Information 56 year old male frome home. Pt was restless, moving extremities during visit. 04/14 : sigmoid colectomy, end colostomy, abscess drainage, diffuse peritontis. 04/16: pt started PPN. 04/17: central line and started on TPN. Spoke to family at bedside, explained parenteral nutrition , family undersoto and has no further question at this time. Weight discrepancies noted in EMR, family does not know UBW , estimated nutritional needs based Current Diet Order/ Nutrition Support TPN D10% AA4.25% at 90ml/hr with IL20% 150ml, providing 1401.6kcal Pertinent Medications Dilaudid, Novolog, Culturelle, Magnesium Sulfate, Vancomycin , TPN, Morphine, Multivitamins , Zofran, Protonix, Nacl0.9% Pertinent Labs 04/14: triglycerides 106, total bilirubin 1.1H, glucose 116H 04/17: magnesium 2.5, phsophorus 3.2 04/19: magnesium 1.8L, phosphorus 2.4L, BUN 28H, creatinine 1.3, glucose 154H, total bilirubin 1.1H, triglycerides 238H Nutritional Hx/Data Height 1.7 m Height (Calculated Centimeters) 170.2 Current Weight (lbs) 95.254 kg Weight (Calculated Kilograms) 95.3 Weight (Calculated Grams) 28215.4 [place] Body Weight 148 Weight Status Overweight GI Symptoms Skin Integrity/Comment: [place] 14. Facial non-pitting 1+, bilateral hands pitting 1+ Estimated Nutritional Goals Calories/Kcals/Kg IBW 148/67.3kg Kcals Calculated 2018-2356kcal (30-35kcal/kg) Protein Calculated 101-135g (1.5-2g/kg) Fluid: ml Per MD Nutritional Problem 1. Problem Problem Altered GI function related to Etiology abscess and perforation of sigmoid colon due to diverticulitis aeb Signs/Symptoms: post-operative, on TPN Intervention/Recommendation Comments 1. Recommend TPN D15% AA5.5% at 100ml/hr with IL20% 150ml, providing 2400ml total volume, 2052kcal, 132g protein, meeting 100% of estimated nutritional needs. Carb load 2 .6mg/kg/min (using 210lb adm weight). 2. Monitor for possible refeeding syndrome, 04/18: phsophorus 2.1L, 04/19: magnesium 1.9. 3. Monitor triglycerides, total bilirubin, glucose, renal labs. Expected Outcomes/Goals Expected Outcomes/Goals 1. Pt to meet 100% of estimated nutritional needs on TPN.
--- NOTE | 2017-05-19 09:48 | General Progress Note ---
Subjective - Review of Systems Subjective: Patient is seen and examined. Patient currently on vent. Patient is not following commands. Objective - Results Result Diagrams: 05/19/17 07:37 05/19/17 05:15 Recent Labs: Laboratory Last Values WBC 7.8 Th/cmm (4.8-10.8) 05/19/17 07:37 RBC 3.09 Mil/cmm (4.30-5.70) L 05/19/17 07:37 Hgb 8.2 gm/dL (13.2-17.3) L 05/19/17 07:37 Hct 25.0 % (39.0-49.0) L 05/19/17 07:37 MCV 80.7 fl (80-99) 05/19/17 07:37 MCH 26.6 pg (26.0-30.0) 05/19/17 07:37 MCHC Differential 33.0 pg (28.0-36.0) 05/19/17 07:37 RDW 17.5 % (11.5-20.0) 05/19/17 07:37 Plt Count 276 Th/cmm (150-400) 05/19/17 07:37 MPV 8.9 fl 05/19/17 07:37 Neutrophils % 61.3 % (40.0-80.0) 05/15/17 04:29 Band Neutrophils % 2 % (0-10) 05/19/17 07:37 Lymphocytes % 17.3 % (20.0-50.0) L 05/15/17 04:29 Monocytes % 8.6 % (2.0-10.0) 05/15/17 04:29 Eosinophils % 12.3 % (0.0-5.0) H 05/15/17 04:29 Basophils % 0.5 % (0.0-2.0) 05/15/17 04:29 Neutrophils (Manual) 54 % (40-80) 05/19/17 07:37 Lymphocytes 12 % (20-50) L 05/19/17 07:37 Monocytes 8 % (2-10) 05/19/17 07:37 Eosinophils 24 % (0-5) H 05/19/17 07:37 Basophils 1 % (0-3) 05/19/17 05:15 Metamyelocytes 1 % (0-0) H 04/22/17 05:04 Platelet Estimate ADEQUATE (NORMAL) 05/19/17 07:37 Platelet Morphology PLATELET CLUMPS SEEN (NORMAL) 05/19/17 07:37 Anisocytosis 1+ 04/28/17 06:08 Microcytosis 1+ 05/02/17 05:15 RBC Morph Micro Appear NORMAL (NORMAL) 05/19/17 07:37 ESR > 140 mm/hr (0-20) H 04/20/17 07:00 PT 13.7 SECONDS (9.5-11.5) H 05/19/17 07:37 INR 1.30 (0.5-1.4) 05/19/17 07:37 PTT (Actin FS) 35.0 SECONDS (26.0-38.0) 05/19/17 07:37 Specimen Source Arterial 05/18/17 10:02 Sample Site Left Radial 05/18/17 10:02 pH 7.45 (7.35-7.45) 05/18/17 10:02 pCO2 40.0 mmHg (35.0-45.0) 05/18/17 10:02 pO2 97.0 mmHg (80.0-100.0) 05/18/17 10:02 HCO3 27.7 mEq/L (20.0-26.0) H 05/18/17 10:02 Base Excess 3.5 mEq/L (-3.0-3.0) H 05/18/17 10:02 O2 Saturation 98.0 % (92.0-100.0) 05/18/17 10:02 Chau Test PASS 05/18/17 10:02 Vent Rate 16 05/18/17 10:02 Inspired O2 30 05/18/17 10:02 Tidal Volume 450 05/18/17 10:02 PEEP 3 05/18/17 10:02 Pressure (ins/psv/peep) NA 05/16/17 08:37 Critical Value PW 05/18/17 10:02 Sodium 150 mEq/L (136-145) H 05/19/17 05:15 Potassium 4.0 mEq/L (3.5-5.1) 05/19/17 05:15 Chloride 119 mEq/L (98-107) H 05/19/17 05:15 Carbon Dioxide 26.4 mEq/L (21.0-31.0) 05/19/17 05:15 Anion Gap 8.6 (7.0-16.0) 05/19/17 05:15 BUN 80 mg/dL (7-25) H 05/19/17 05:15 Creatinine 1.5 mg/dL (0.7-1.3) H 05/19/17 05:15 Est GFR ( Amer) > 60.0 ml/min (>90) 05/19/17 05:15 Est GFR (Non-Af Amer) 51.3 ml/min 05/19/17 05:15 BUN/Creatinine Ratio 53.3 05/19/17 05:15 Glucose 138 mg/dL (70-105) H 05/19/17 05:15 POC Glucose 130 MG/DL (70 - 105) H 05/19/17 05:53 Hemoglobin A1c % 6.7 % (4.0-6.0) H 04/22/17 05:04 Whole Bld Lactic Acid 1.66 mmol/L (0.60-1.99) 05/12/17 04:40 Uric Acid 3.6 mg/dL (4.4-7.6) L 04/20/17 07:00 Calcium 10.8 mg/dL (8.6-10.3) H 05/19/17 05:15 Phosphorus 3.8 mg/dL (2.5-5.0) 05/19/17 05:15 Magnesium 2.6 mg/dL (1.9-2.7) 05/19/17 05:15 Total Bilirubin 0.8 mg/dL (0.3-1.0) 05/19/17 05:15 Direct Bilirubin 0.35 mg/dL (0.0-0.2) H 05/18/17 04:50 AST 81 U/L (13-39) H 05/19/17 05:15 ALT 39 U/L (7-52) 05/19/17 05:15 Alkaline Phosphatase 197 U/L (34-104) H 05/19/17 05:15 Ammonia 42 umol/L (16-53) 05/18/17 04:50 Creatine Kinase 136 U/L (30-223) 04/14/17 14:55 Troponin I 0.01 ng/mL (0.01-0.05) 04/22/17 05:04 C-Reactive Protein 27.5 mg/dL (0.0-0.9) H 05/15/17 04:29 B-Natriuretic Peptide 20.7 pg/mL (5.0-100.0) 05/13/17 04:27 Total Protein 6.4 gm/dL (6.0-8.3) 05/19/17 05:15 Albumin 2.2 gm/dL (4.2-5.5) L 05/19/17 05:15 Globulin 4.2 gm/dL 05/19/17 05:15 Albumin/Globulin Ratio 0.5 (1.0-1.8) L 05/19/17 05:15 Prealbumin 7 mg/dL (10-36) L 05/15/17 04:29 Triglycerides 281 mg/dL (<150) H 05/15/17 04:29 Cholesterol 91 mg/dL (<200) 05/12/17 04:40 LDL Cholesterol Direct 38 mg/dL (75-193) L 04/14/17 14:55 HDL Cholesterol 13 mg/dL (23-92) L 04/14/17 14:55 Amylase 53 U/L (29-103) 05/09/17 06:00 Lipase 85 U/L (11-82) H 05/09/17 06:00 Urine Source [place] 05/18/17 16:30 Urine Color YELLOW 05/18/17 16:30 Urine Clarity CLOUDY (CLEAR) 05/18/17 16:30 Urine pH 5.5 (4.6 - 8.0) 05/18/17 16:30 Ur Specific [place] 1.010 (1.005-1.030) 05/18/17 16:30 Urine Protein NEGATIVE mg/dL (NEGATIVE) 05/18/17 16:30 Urine Glucose (UA) NEGATIVE mg/dL (NEGATIVE) 05/18/17 16:30 Urine Ketones NEGATIVE mg/dL (NEGATIVE) 05/18/17 16:30 Urine Blood MODERATE (NEGATIVE) H 05/18/17 16:30 Urine Nitrate NEGATIVE (NEGATIVE) 05/18/17 16:30 Urine Bilirubin NEGATIVE (NEGATIVE) 05/18/17 16:30 Urine Urobilinogen 0.2 E.U./dL (0.2 - 1.0) 05/18/17 16:30 Ur Leukocyte Esterase TRACE (NEGATIVE) H 05/18/17 16:30 Urine RBC 10-25 /hpf (0-5) H 05/18/17 16:30 Urine WBC 6-10 /hpf (0-5) H 05/18/17 16:30 Ur Epithelial Cells FEW /lpf (FEW) 05/18/17 16:30 Amorphous Sediment MANY URATES (NONE SEEN) 04/14/17 15:05 Urine Bacteria NONE SEEN /hpf (NONE SEEN) 05/18/17 16:30 Hyaline Casts 5-10 /lpf (0-2) H 05/18/17 16:30 Urine Sperm MANY /hpf (NONE SEEN) 05/18/17 16:30 Amikacin Peak 24.3 ug/mL (20.0-30.0) 05/15/17 23:04 Amikacin Trough 11.0 ug/mL (1.0-8.0) H 05/15/17 19:30 Random Amikacin 6.7 ug/ml (1.0-30.0) 05/17/17 04:25 Vancomycin Trough 13.5 ug/mL (10-20) 04/19/17 19:20 Helicobacter pylori Ab NEGATIVE (NEGATIVE) 05/04/17 10:05 Blood Type O POSITIVE 05/02/17 07:12 Antibody Screen NEGATIVE 05/02/17 07:12 Crossmatch See Detail 05/02/17 07:12 - Physical Exam Vitals and I&O: Vital Signs Temp 97.7 F 05/19/17 04:00 Pulse 77 05/19/17 08:35 Resp 21 05/19/17 07:00 BP 96/47 05/19/17 08:35 Pulse Ox 100 05/19/17 07:36 Intake & Output 05/18/17 05/19/17 05/19/17 18:59 06:59 18:59 Intake Total 4001.6 450 50 Output Total 2200 1750 Balance 1801.6 -1300 50 Weight (lbs) 102.569 kg 102.058 kg Intake: Intake, IV Amount 2801.6 250 50 Albumin 25% 25gm/100mL 25 100 100 gm In 100 ml @ 50 mls/hr IV Q8H [facility] Rx#:[id number] Amikacin 400 mg In 101.6 Dextrose 5% 100 ml @ 100 mls/hr IV Q12H [facility] Rx#: [id number] Levofloxacin 250mg/50mL 50 250 mg In 50 ml @ 50 mls/ hr IV Q24HR [facility] Rx#: [id number] Multivitamin Inj 10 ml In 2400 Dextrose 70% 1,740 ml In Amino Acids 10% 500 ml In Intralipids 20% 150 ml @ 100 mls/hr IV .Q24H [facility] Rx#:[id number] Tigecycline 50 mg In 100 100 Sodium Chloride 0.9% 100 ml @ 100 mls/hr IV Q12HR [facility] Rx#:[id number] cefTAZidime 1 gm In 50 50 50 Sodium Chloride 0.9% 50 ml @ Per Protocol IV Q12HR [facility] Rx#:[id number] Oral 0 TPN/PPN 1200 Albumin 200 Output: Gastric Drainage 100 100 Urine 2100 1650 Stool 0 Active Medications: Current Medications Acetaminophen (Tylenol 650mg/20.3ml Suspension) 650 mg NG Q6H PRN PRN Reason: FEVER/PAIN Stop: 06/21/17 17:45 Last Admin: 05/15/17 09:50 Dose: 650 mg Albuterol/Ipratropium (Duoneb Neb) 3 ml HHN Q4HRT [facility] Stop: 06/15/17 14:59 Last Admin: 05/19/17 07:35 Dose: 3 ml Amiodarone HCl (Cordarone) 200 mg NG BID [facility] Stop: 06/24/17 23:14 Last Admin: 05/19/17 08:35 Dose: Not Given Budesonide (Pulmicort) 0.5 mg HHN BIDRT [facility] Stop: 06/15/17 18:59 Last Admin: 05/19/17 07:35 Dose: 0.5 mg Chlorhexidine Gluconate (Peridex) 15 ml MM 0800,1999 [facility] Stop: 06/30/17 19:59 Last Admin: 05/19/17 08:34 Dose: 15 ml Enalaprilat (Vasotec) 2.5 mg IVP Q4HR PRN PRN Reason: SBP>150 Stop: 07/06/17 15:59 Famotidine (Pepcid) 20 mg IVP DAILY [facility] Stop: 07/18/17 08:59 Last Admin: 05/19/17 08:42 Dose: 20 mg Furosemide (Lasix) 40 mg IVP BID [facility] Stop: 07/12/17 16:59 Last Admin: 05/19/17 08:35 Dose: Not Given Multivitamins/Minerals 10 ml/Dextrose/ Amino Acids/Electrolytes/ Fat Emulsion Intravenous 2,400 mls @ 100 mls/hr IV .Q24H [facility] Stop: 06/23/17 15:59 Last Admin: 05/18/17 15:57 Dose: 100 mls/hr Dextrose/Sodium Chloride (D5-0.45ns) 1,000 mls @ 40 mls/hr IV .Q24H [facility] Stop: 06/23/17 15:59 Last Admin: 05/19/17 06:50 Dose: 40 mls/hr Norepinephrine Bitartrate 4 mg (/ Dextrose) 254 mls @ 0 mls/hr IV TITR PRN; Protocol; 0 MCG/MIN PRN Reason: BP MAINTENANCE (PER PROTOCOL) Stop: 06/30/17 09:25 Last Titration: 05/02/17 07:00 Dose: Infused Diltiazem HCl 125 mg/ Dextrose 125 mls @ 10 mls/hr IV TITR [facility]; 10 MG/HR PRN Reason: Protocol Stop: 07/06/17 11:14 Last Titration: 05/11/17 18:00 Dose: 0 mg/hr, 0 mls/hr Tigecycline 50 mg/ Sodium (Chloride) 100 mls @ 100 mls/hr IV Q12HR [facility] Stop: 07/13/17 20:59 Last Admin: 05/19/17 08:30 Dose: 100 mls/hr Ceftazidime 1 gm/ Sodium (Chloride) 50 mls @ 0 mls/hr IV Q12HR [facility] PRN Reason: Per Protocol Stop: 07/16/17 20:59 Last Infusion: 05/19/17 08:30 Dose: Infused Levofloxacin (Levaquin Pb) 250 mg in 50 mls @ 50 mls/hr IV Q24HR [facility] Stop: 07/17/17 17:59 Last Infusion: 05/18/17 18:40 Dose: Infused Albumin Human (Albuminar 25%) 25 gm in 100 mls @ 50 mls/hr IV Q8H [facility] Stop: 05/20/17 05:59 Last Admin: 05/19/17 07:47 Dose: 50 mls/hr Amikacin Sulfate 400 mg/ (Dextrose) 101.6 mls @ 100 mls/hr IV Q12H [facility] Stop: 07/17/17 13:59 Last Admin: 05/19/17 01:36 Dose: 100 mls/hr Insulin Aspart (Novolog Insulin Sliding Scale) 0 units SUBQ Q6HR [facility] PRN Reason: Protocol Stop: 07/17/17 11:59 Last Admin: 05/19/17 06:01 Dose: Not Given Lactobacillus Rhamnosus (Culturelle) 1 each PO DAILY [facility] Stop: 07/16/17 08:59 Last Admin: 05/19/17 08:35 Dose: Not Given Lorazepam (Ativan) 1 mg IVP Q4HR PRN; Protocol PRN Reason: Agitation Stop: 07/13/17 02:57 Last Admin: 05/18/17 05:43 Dose: 1 mg Metoclopramide HCl (Reglan) 10 mg IVP Q8HR [facility] Stop: 07/06/17 20:59 Last Admin: 05/19/17 07:53 Dose: 10 mg Metoprolol Tartrate (Lopressor) 25 mg PO BID [facility] Stop: 06/26/17 08:59 Last Admin: 05/19/17 08:34 Dose: Not Given Mineral Oil (Mineral Oil 30 Ml) 30 ml NG DAILY [facility] Stop: 07/04/17 12:29 Last Admin: 05/19/17 08:34 Dose: Not Given Miscellaneous (Vte Chemical Prophylaxis Screen/ Admission) 1 ea MC PRN PRN PRN Reason: PROTOCOL Stop: 07/01/17 14:44 Miscellaneous (Amikacin Iv Per Pharmacy) 1 ea MC PRN PRN PRN Reason: PROTOCOL Stop: 07/13/17 18:39 Miscellaneous (Probiotic Screen) 1 ea MC PRN PRN PRN Reason: PROTOCOL Stop: 07/15/17 10:37 Miscellaneous (Tpn Per Pharmacy) 1 ea MC PRN PRN PRN Reason: PROTOCOL Stop: 07/17/17 15:12 Morphine Sulfate (Morphine) 2 mg IVP Q4H PRN PRN Reason: PAIN Stop: 07/11/17 16:49 Last Admin: 05/18/17 03:13 Dose: 2 mg Sulfacetamide Sodium (Sulamyd 10% Oph Soln) 1 drop EACH EYE Q6HR [facility] Stop: 07/16/17 11:59 Last Admin: 05/19/17 06:51 Dose: 1 drop General: Other (sedated and intubated.) HEENT: Atraumatic, PERRLA, EOMI, Mucous membr. moist/pink, Other (oral endotracheal tube,NG tube+) Neck: Supple, +2 carotid pulse wo bruit Cardiovascular: Regular rate, Normal S1, Normal S2 Lungs: Other (diffuse rhonchi.) Abdomen: Soft, Other ( wound VAC anterior open abdominal wall wound. L colostomy retracted but still functional w/ stool output.) Extremities: Edema, Other (no edema and cyanosis.) Neurological: Reflexes 2+, Other (Patient is intubated and sedated) Psych/Mental Status: Other (Sedated) - Procedures Procedures: Procedures Procedure Code Date BYPASS SIGMOID COLON TO CUTANEOUS, OPEN APPROACH [id number] 04/14/17 INSERT EMERGENCY AIRWAY 62167 04/14/17 INSERTION OF ENDOTRACHEAL AIRWAY INTO TRACHEA, VIA OPENING [id number] 04/14/17 PARTIAL REMOVAL OF COLON 49411 04/14/17 RESECTION OF SIGMOID COLON, OPEN APPROACH [id number] 04/14/17 RESPIRATORY VENTILATION, 24-96 CONSECUTIVE HOURS [id number] 04/14/17 VENT MGMT INPAT INIT DAY 76959 04/14/17 VENT MGMT INPAT SUBQ DAY 94095 04/14/17 Assessment/Plan - Problem List Patient Problems: All Active Problems Abscess of sigmoid colon due to diverticulitis (Acute) K57.20 Diverticulitis of sigmoid colon (Acute) K57.32 Obesity (Acute) E66.9 Perforation of sigmoid colon due to diverticulitis (Acute) K57.20 Peritonitis (acute) generalized (Acute) K65.0 - Assessment Assessment: Current Active Problems Problem Status Onset Abscess of sigmoid colon due to diverticulitis Acute Diverticulitis of sigmoid colon Acute Obesity Acute Perforation of sigmoid colon due to diverticulitis Acute Peritonitis (acute) generalized Acute Perforated diverticulitis status post expiratory laparotomy and colostomy placement. Postoperative respiratory failure on vent. Obesity. Conjunctivitis. MDROs organisms positive culture. GI bleed stable. Suspect developing ARDS. Polymicrobial peritonitis due to perforation.. Asthma. SVT currently on Cardizem drip Electrolyte imbalance. SEKOU . Hypernatremia. Encephalopathy due to metabolic and infectious etio. Open surgical wound with wound VAC. Altered mental status secondary to metabolic and infectious encephalopathy. Postop anemia. - Plan Plan: ICU status. Vent support. Nebulizer treatment. Pulmonary toilet. IV antibiotics as per ID. TPN. Sulfacetamide eye drops. Renal consult and follow-up. Corrected electrolytes. PEG and tracheostomy as per GI and surgery. Rate control with cardizem drip. Blood pressure control Wound care with wound VAC Surgical follow-up ID follow-up Cardiology follow-up Pulmonary follow-up ICU care. Symptoms management. Medication management. IV PPI. Monitor lab. Guarded prognosis. Chronic management of his medical illnesses. Care plan discussed with RN. Nutritional Asmnt/Malnutr-PDOC - Dietary Evaluation Malnutrition Findings (Please click <Entered> for more info): Nutritional Asmnt/Malnutrition Start: 04/19/17 14: 21 Text: Status: Complete Freq: Document 04/19/17 14:21 GSUN (Rec: 04/19/17 14:58 [id number]) Nutritional Asmnt/Malnutrition Patient General Information Nutritional Screening Moderate Risk Screening Diagnosis Sepsis, diverticulitis, peritonitis Pertinent Medical Hx/Surgical Hx Asthma, diverticulosis Subjective Information 56 year old male frome home. Pt was restless, moving extremities during visit. 04/14 : sigmoid colectomy, end colostomy, abscess drainage, diffuse peritontis. 04/16: pt started PPN. 04/17: central line and started on TPN. Spoke to family at bedside, explained parenteral nutrition , family undersoto and has no further question at this time. Weight discrepancies noted in EMR, family does not know UBW , estimated nutritional needs based Current Diet Order/ Nutrition Support TPN D10% AA4.25% at 90ml/hr with IL20% 150ml, providing 1401.6kcal Pertinent Medications Dilaudid, Novolog, Culturelle, Magnesium Sulfate, Vancomycin , TPN, Morphine, Multivitamins , Zofran, Protonix, Nacl0.9% Pertinent Labs 04/14: triglycerides 106, total bilirubin 1.1H, glucose 116H 04/17: magnesium 2.5, phsophorus 3.2 04/19: magnesium 1.8L, phosphorus 2.4L, BUN 28H, creatinine 1.3, glucose 154H, total bilirubin 1.1H, triglycerides 238H Nutritional Hx/Data Height 1.7 m Height (Calculated Centimeters) 170.2 Current Weight (lbs) 95.254 kg Weight (Calculated Kilograms) 95.3 Weight (Calculated Grams) 08519.4 [place] Body Weight 148 Weight Status Overweight GI Symptoms Skin Integrity/Comment: [place] 14. Facial non-pitting 1+, bilateral hands pitting 1+ Estimated Nutritional Goals Calories/Kcals/Kg IBW 148/67.3kg Kcals Calculated 2018-2356kcal (30-35kcal/kg) Protein Calculated 101-135g (1.5-2g/kg) Fluid: ml Per MD Nutritional Problem 1. Problem Problem Altered GI function related to Etiology abscess and perforation of sigmoid colon due to diverticulitis aeb Signs/Symptoms: post-operative, on TPN Intervention/Recommendation Comments 1. Recommend TPN D15% AA5.5% at 100ml/hr with IL20% 150ml, providing 2400ml total volume, 2052kcal, 132g protein, meeting 100% of estimated nutritional needs. Carb load 2 .6mg/kg/min (using 210lb adm weight). 2. Monitor for possible refeeding syndrome, 04/18: phsophorus 2.1L, 04/19: magnesium 1.9. 3. Monitor triglycerides, total bilirubin, glucose, renal labs. Expected Outcomes/Goals Expected Outcomes/Goals 1. Pt to meet 100% of estimated nutritional needs on TPN.
[2017-05-19] MEDS ORDERED: PAMIDRONATE IV ONE ×2 (10:07→12:00)
[2017-05-19] MEDS: Dextrose 5% 1,000 ML IV SCH (10:30)
[2017-05-19 10:42] LABS: INR 1.3 (0.5-1.4); PROTHROMBIN TIME (TEST) 13.7 SECONDS (9.5-11.5)
[2017-05-19] MEDS ORDERED: DEXTROSE 5% IV ONE (12:00)
[2017-05-19 13:14] LABS: CA (PTHI) 9.6 mg/dL (8.7-10.2); PARATHYROID HORMONE INTACT <6 pg/mL (15-65)
[2017-05-19] MEDS: Morphine Sulfate 4 mg/mL 1mL Syr IVP PRN ×2 (15:23→23:05)
[2017-05-19] MEDS: TPN 10%-70% CUSTOM IV SCH (16:08)
[2017-05-19] MEDS: Levofloxacin 250mg/50mL 250 MG/50 ML BAG IV SCH (17:27)
--- NOTE | 2017-05-20 01:46 | Progress Notes ---
DATE: 05/19/2017 PROBLEM LIST: 1. Persistent respiratory failure. 2. Encephalopathy, suspect chronic lower abdominal sepsis with underlying metabolic disorder. SYMPTOMS: Nil. PHYSICAL EXAMINATION: VITAL SIGNS: Temperature is 98, heart rate is in 90s, blood pressure is 30% of oxygen. ENT: Shows no new changes. CHEST: Shows diminished air entry. No other adventitious breath sounds. HEART: Regular. LABORATORY DATA: The patient's white count is 8.2 and the patient's platelet is adequate. Electrolytes shows sodium 150, BUN is . ASSESSMENT: The patient is clinically status quo. Okay pulmonary-botello and critical care-botello to a trach, and followup electrolytes, etc, and go from there. JOB# [id number]
[2017-05-20] MEDS: Albuterol/Ipratropium Neb 3 ML AERS HHN SCH ×6 (03:35→22:08)
[2017-05-20] MEDS: Albumin 25% 25gm/100mL 25 GM/100 ML BTL IV SCH (04:14)
[2017-05-20] MEDS: Metoclopramide 5 mg/mL 2mL Vial IVP SCH ×3 (04:14→20:46)
[2017-05-20 05:41] LABS: HEMATOCRIT 25.5 % (39.0-49.0); HEMOGLOBIN 8.4 gm/dL (13.2-17.3); MEAN CELL VOLUME 81.4 fl (80-99); MEAN CORPUSCULAR HEMOGLOBIN 26.6 pg (26.0-30.0); MEAN CORPUSCULAR HGB CONC 32.7 pg (28.0-36.0); MEAN PLATELET VOLUME 10.2 fl; RED BLOOD COUNT 3.14 Mil/cmm (4.30-5.70); RED CELL DISTRIBUTION WIDTH 17.4 % (11.5-20.0); WHITE BLOOD COUNT 8.7 Th/cmm (4.8-10.8)
[2017-05-20] MEDS: INSULIN ASPART SLIDING SCALE 100 UNITS/ML UNIT SUBQ SCH ×3 (05:48→18:03)
[2017-05-20 05:56] LABS: PLATELET COUNT 335 Th/cmm (150-400)
[2017-05-20 06:01] LABS: CHOLESTEROL 55 mg/dL (<200); TRIGLYCERIDES 271 mg/dL (<150)
[2017-05-20 06:03] LABS: ALB/GLOB RATIO 0.7 (1.0-1.8); ANION GAP 5.9 (7.0-16.0); BILIRUBIN,TOTAL 0.8 mg/dL (0.3-1.0); CALCIUM SERUM 11.2 mg/dL (8.6-10.3); CARBON DIOXIDE 26.1 mEq/L (21.0-31.0); CREATININE - SERUM 1.6 mg/dL (0.7-1.3); MAGNESIUM 2.4 mg/dL (1.9-2.7); PHOSPHOROUS 3.3 mg/dL (2.5-5.0)
[2017-05-20] MEDS: Budesonide 0.5 Mg/2 mL Ud HHN SCH ×2 (07:50→19:47)
[2017-05-20] MEDS: Chlorhexidine Gluconate 0.12% 15mL Mouthwash MM SCH ×2 (08:03→19:40)
[2017-05-20] MEDS: cefTAZidime 1 GM in Sodium Chloride 0.9% 50 ML IV SCH ×2 (08:28→20:46)
[2017-05-20] MEDS: Lactobacillus Rhamnosus 10 Billion CFU Capsule PO SCH (09:00)
--- NOTE | 2017-05-20 09:28 | General Progress Note ---
Subjective - Review of Systems Subjective: Patient is seen and examined. Patient currently on vent. Patient is not following commands. Chart reviewed. Objective - Results Result Diagrams: 05/20/17 04:30 05/20/17 04:30 Recent Labs: Laboratory Last Values WBC 8.7 Th/cmm (4.8-10.8) 05/20/17 04:30 RBC 3.14 Mil/cmm (4.30-5.70) L 05/20/17 04:30 Hgb 8.4 gm/dL (13.2-17.3) L 05/20/17 04:30 Hct 25.5 % (39.0-49.0) L 05/20/17 04:30 MCV 81.4 fl (80-99) 05/20/17 04:30 MCH 26.6 pg (26.0-30.0) 05/20/17 04:30 MCHC Differential 32.7 pg (28.0-36.0) 05/20/17 04:30 RDW 17.4 % (11.5-20.0) 05/20/17 04:30 Plt Count 335 Th/cmm (150-400) D 05/20/17 04:30 MPV 10.2 fl 05/20/17 04:30 Neutrophils % 61.3 % (40.0-80.0) 05/15/17 04:29 Band Neutrophils % 2 % (0-10) 05/19/17 07:37 Lymphocytes % 17.3 % (20.0-50.0) L 05/15/17 04:29 Monocytes % 8.6 % (2.0-10.0) 05/15/17 04:29 Eosinophils % 12.3 % (0.0-5.0) H 05/15/17 04:29 Basophils % 0.5 % (0.0-2.0) 05/15/17 04:29 Neutrophils (Manual) 54 % (40-80) 05/19/17 07:37 Lymphocytes 12 % (20-50) L 05/19/17 07:37 Monocytes 8 % (2-10) 05/19/17 07:37 Eosinophils 24 % (0-5) H 05/19/17 07:37 Basophils 1 % (0-3) 05/19/17 05:15 Metamyelocytes 1 % (0-0) H 04/22/17 05:04 Platelet Estimate ADEQUATE (NORMAL) 05/19/17 07:37 Platelet Morphology PLATELET CLUMPS SEEN (NORMAL) 05/19/17 07:37 Anisocytosis 1+ 04/28/17 06:08 Microcytosis 1+ 05/02/17 05:15 RBC Morph Micro Appear NORMAL (NORMAL) 05/19/17 07:37 ESR > 140 mm/hr (0-20) H 04/20/17 07:00 Plt Count 276 Th/cmm (150-750) 05/19/17 07:37 PT 13.7 SECONDS (9.5-11.5) H 05/19/17 07:37 INR 1.30 (0.5-1.4) 05/19/17 07:37 PTT (Actin FS) 34.8 SECONDS (26.0-38.0) 05/19/17 07:37 Fibrinogen 222.0 mg/dL (200.0-400.0) 05/19/17 07:37 D-Dimer 3160 ng/mL (100-400) H 05/19/17 07:37 Specimen Source Arterial 05/18/17 10:02 Sample Site Left Radial 05/18/17 10:02 pH 7.45 (7.35-7.45) 05/18/17 10:02 pCO2 40.0 mmHg (35.0-45.0) 05/18/17 10:02 pO2 97.0 mmHg (80.0-100.0) 05/18/17 10:02 HCO3 27.7 mEq/L (20.0-26.0) H 05/18/17 10:02 Base Excess 3.5 mEq/L (-3.0-3.0) H 05/18/17 10:02 O2 Saturation 98.0 % (92.0-100.0) 05/18/17 10:02 Chau Test PASS 05/18/17 10:02 Vent Rate 16 05/18/17 10:02 Inspired O2 30 05/18/17 10:02 Tidal Volume 450 05/18/17 10:02 PEEP 3 05/18/17 10:02 Pressure (ins/psv/peep) NA 05/16/17 08:37 Critical Value PW 05/18/17 10:02 Sodium 148 mEq/L (136-145) H 05/20/17 04:30 Potassium 4.0 mEq/L (3.5-5.1) 05/20/17 04:30 Chloride 120 mEq/L (98-107) H 05/20/17 04:30 Carbon Dioxide 26.1 mEq/L (21.0-31.0) 05/20/17 04:30 Anion Gap 5.9 (7.0-16.0) L 05/20/17 04:30 BUN 72 mg/dL (7-25) H 05/20/17 04:30 Creatinine 1.6 mg/dL (0.7-1.3) H 05/20/17 04:30 Est GFR ( Amer) 57.6 ml/min (>90) 05/20/17 04:30 Est GFR (Non-Af Amer) 47.6 ml/min 05/20/17 04:30 BUN/Creatinine Ratio 45.0 05/20/17 04:30 Glucose 130 mg/dL (70-105) H 05/20/17 04:30 POC Glucose 133 MG/DL (70 - 105) H 05/20/17 05:36 Hemoglobin A1c % 6.7 % (4.0-6.0) H 04/22/17 05:04 Whole Bld Lactic Acid 1.66 mmol/L (0.60-1.99) 05/12/17 04:40 Uric Acid 3.6 mg/dL (4.4-7.6) L 04/20/17 07:00 Calcium 11.2 mg/dL (8.6-10.3) H 05/20/17 04:30 Phosphorus 3.3 mg/dL (2.5-5.0) 05/20/17 04:30 Magnesium 2.4 mg/dL (1.9-2.7) 05/20/17 04:30 Total Bilirubin 0.8 mg/dL (0.3-1.0) 05/20/17 04:30 Direct Bilirubin 0.35 mg/dL (0.0-0.2) H 05/18/17 04:50 AST 88 U/L (13-39) H 05/20/17 04:30 ALT 40 U/L (7-52) 05/20/17 04:30 Alkaline Phosphatase 228 U/L (34-104) H 05/20/17 04:30 Ammonia 42 umol/L (16-53) 05/18/17 04:50 Creatine Kinase 136 U/L (30-223) 04/14/17 14:55 Troponin I 0.01 ng/mL (0.01-0.05) 04/22/17 05:04 C-Reactive Protein 27.5 mg/dL (0.0-0.9) H 05/15/17 04:29 B-Natriuretic Peptide 20.7 pg/mL (5.0-100.0) 05/13/17 04:27 Total Protein 6.6 gm/dL (6.0-8.3) 05/20/17 04:30 Albumin 2.7 gm/dL (4.2-5.5) L 05/20/17 04:30 Globulin 3.9 gm/dL 05/20/17 04:30 Albumin/Globulin Ratio 0.7 (1.0-1.8) L 05/20/17 04:30 Prealbumin 7 mg/dL (10-36) L 05/15/17 04:29 Triglycerides 271 mg/dL (<150) H 05/20/17 04:30 Cholesterol 55 mg/dL (<200) 05/20/17 04:30 LDL Cholesterol Direct 38 mg/dL (75-193) L 04/14/17 14:55 HDL Cholesterol 13 mg/dL (23-92) L 04/14/17 14:55 Amylase 53 U/L (29-103) 05/09/17 06:00 Lipase 85 U/L (11-82) H 05/09/17 06:00 Vitamin D 25-Hydroxy 25.8 ng/mL (30.0-100.0) L 05/18/17 04:50 Procalcitonin SEE REF LAB REPORT 05/05/17 04:35 PTH Interpretation (()) 05/18/17 04:50 PTH Intact <6 pg/mL (15-65) L 05/18/17 04:50 Calcium (PTH Intact) 9.6 mg/dL (8.7-10.2) 05/18/17 04:50 Urine Source [place] 05/18/17 16:30 Urine Color YELLOW 05/18/17 16:30 Urine Clarity CLOUDY (CLEAR) 05/18/17 16:30 Urine pH 5.5 (4.6 - 8.0) 05/18/17 16:30 Ur Specific [place] 1.010 (1.005-1.030) 05/18/17 16:30 Urine Protein NEGATIVE mg/dL (NEGATIVE) 05/18/17 16:30 Urine Glucose (UA) NEGATIVE mg/dL (NEGATIVE) 05/18/17 16:30 Urine Ketones NEGATIVE mg/dL (NEGATIVE) 05/18/17 16:30 Urine Blood MODERATE (NEGATIVE) H 05/18/17 16:30 Urine Nitrate NEGATIVE (NEGATIVE) 05/18/17 16:30 Urine Bilirubin NEGATIVE (NEGATIVE) 05/18/17 16:30 Urine Urobilinogen 0.2 E.U./dL (0.2 - 1.0) 05/18/17 16:30 Ur Leukocyte Esterase TRACE (NEGATIVE) H 05/18/17 16:30 Urine RBC 10-25 /hpf (0-5) H 05/18/17 16:30 Urine WBC 6-10 /hpf (0-5) H 05/18/17 16:30 Ur Epithelial Cells FEW /lpf (FEW) 05/18/17 16:30 Amorphous Sediment MANY URATES (NONE SEEN) 04/14/17 15:05 Urine Bacteria NONE SEEN /hpf (NONE SEEN) 05/18/17 16:30 Hyaline Casts 5-10 /lpf (0-2) H 05/18/17 16:30 Urine Sperm MANY /hpf (NONE SEEN) 05/18/17 16:30 Amikacin Peak 24.3 ug/mL (20.0-30.0) 05/15/17 23:04 Amikacin Trough 11.0 ug/mL (1.0-8.0) H 05/15/17 19:30 Random Amikacin 6.7 ug/ml (1.0-30.0) 05/17/17 04:25 Vancomycin Trough 13.5 ug/mL (10-20) 04/19/17 19:20 Helicobacter pylori Ab NEGATIVE (NEGATIVE) 05/04/17 10:05 Blood Type O POSITIVE 05/02/17 07:12 Antibody Screen NEGATIVE 05/02/17 07:12 Crossmatch See Detail 05/02/17 07:12 - Physical Exam Vitals and I&O: Vital Signs Temp 97.7 F 05/20/17 08:00 Pulse 88 05/20/17 09:00 Resp 21 05/20/17 08:00 BP 133/69 05/20/17 09:00 Pulse Ox 100 05/20/17 08:00 Intake & Output 05/19/17 05/20/17 05/20/17 18:59 06:59 18:59 Intake Total 4246.6 690.233 50 Output Total 1850 2700 Balance 2396.6 -2009.767 50 Weight (lbs) 103.221 kg 102.557 kg Intake: Intake, IV Amount 2901.6 690.233 50 Albumin 25% 25gm/100mL 25 200 200 gm In 100 ml @ 50 mls/hr IV Q8H [facility] Rx#:[id number] Amikacin 400 mg In 101.6 101.6 Dextrose 5% 100 ml @ 100 mls/hr IV Q12H [facility] Rx#: [id number] Levofloxacin 250mg/50mL 50 250 mg In 50 ml @ 50 mls/ hr IV Q24HR [facility] Rx#: [id number] Multivitamin Inj 10 ml In 2400 Dextrose 70% 1,740 ml In Amino Acids 10% 500 ml In Intralipids 20% 150 ml @ 100 mls/hr IV .Q24H [facility] Rx#:[id number] Norepinephrine 4 mg In 238.633 Dextrose 5% 250 ml @ 4 MCG/MIN 15.24 mls/hr IV TITR PRN Rx#:[id number] Tigecycline 50 mg In 100 100 Sodium Chloride 0.9% 100 ml @ 100 mls/hr IV Q12HR [facility] Rx#:[id number] cefTAZidime 1 gm In 50 50 50 Sodium Chloride 0.9% 50 ml @ Per Protocol IV Q12HR [facility] Rx#:[id number] TPN/PPN 1200 Other 145 Output: Gastric Drainage 50 Urine 1800 2700 Active Medications: Current Medications Acetaminophen (Tylenol 650mg/20.3ml Suspension) 650 mg NG Q6H PRN PRN Reason: FEVER/PAIN Stop: 06/21/17 17:45 Last Admin: 05/15/17 09:50 Dose: 650 mg Albuterol/Ipratropium (Duoneb Neb) 3 ml HHN Q4HRT [facility] Stop: 06/15/17 14:59 Last Admin: 05/20/17 07:50 Dose: 3 ml Amiodarone HCl (Cordarone) 200 mg NG BID [facility] Stop: 06/24/17 23:14 Last Admin: 05/20/17 09:00 Dose: Not Given Budesonide (Pulmicort) 0.5 mg HHN BIDRT [facility] Stop: 06/15/17 18:59 Last Admin: 05/20/17 07:50 Dose: 0.5 mg Chlorhexidine Gluconate (Peridex) 15 ml MM 0800,1999 [facility] Stop: 06/30/17 19:59 Last Admin: 05/20/17 08:03 Dose: 15 ml Enalaprilat (Vasotec) 2.5 mg IVP Q4HR PRN PRN Reason: SBP>150 Stop: 07/06/17 15:59 Famotidine (Pepcid) 20 mg IVP DAILY [facility] Stop: 07/18/17 08:59 Last Admin: 05/20/17 09:00 Dose: 20 mg Furosemide (Lasix) 40 mg IVP BID [facility] Stop: 07/12/17 16:59 Last Admin: 05/20/17 09:00 Dose: 40 mg Multivitamins/Minerals 10 ml/Dextrose/ Amino Acids/Electrolytes/ Fat Emulsion Intravenous 2,400 mls @ 100 mls/hr IV .Q24H [facility] Stop: 06/23/17 15:59 Last Admin: 05/19/17 16:08 Dose: 100 mls/hr Diltiazem HCl 125 mg/ Dextrose 125 mls @ 10 mls/hr IV TITR [facility]AN; 10 MG/HR PRN Reason: Protocol Stop: 07/06/17 11:14 Last Titration: 05/11/17 18:00 Dose: 0 mg/hr, 0 mls/hr Tigecycline 50 mg/ Sodium (Chloride) 100 mls @ 100 mls/hr IV Q12HR [facility] Stop: 07/13/17 20:59 Last Admin: 05/20/17 09:00 Dose: 100 mls/hr Ceftazidime 1 gm/ Sodium (Chloride) 50 mls @ 0 mls/hr IV Q12HR [facility] PRN Reason: Per Protocol Stop: 07/16/17 20:59 Last Infusion: 05/20/17 08:58 Dose: Infused Levofloxacin (Levaquin Pb) 250 mg in 50 mls @ 50 mls/hr IV Q24HR [facility] Stop: 07/17/17 17:59 Last Infusion: 05/19/17 18:30 Dose: Infused Amikacin Sulfate 400 mg/ (Dextrose) 101.6 mls @ 100 mls/hr IV Q12H [facility] Stop: 07/17/17 13:59 Last Infusion: 05/20/17 02:16 Dose: Infused Dextrose (D5w) 1,000 mls @ 50 mls/hr IV .Q20H [facility] Stop: 07/18/17 10:05 Last Admin: 05/19/17 10:30 Dose: 50 mls/hr Norepinephrine Bitartrate 4 mg (/ Dextrose) 254 mls @ 15.24 mls/hr IV TITR PRN ; Protocol; 4 MCG/MIN PRN Reason: BP MAINTENANCE (PER PROTOCOL) Stop: 07/18/17 10:59 Last Admin: 05/20/17 05:21 Dose: 4 mcg/min, 15.24 mls/hr Insulin Aspart (Novolog Insulin Sliding Scale) 0 units SUBQ Q6HR [facility] PRN Reason: Protocol Stop: 07/17/17 11:59 Last Admin: 05/20/17 05:48 Dose: Not Given Lactobacillus Rhamnosus (Culturelle) 1 each PO DAILY [facility] Stop: 07/16/17 08:59 Last Admin: 05/20/17 09:00 Dose: Not Given Lorazepam (Ativan) 1 mg IVP Q4HR PRN; Protocol PRN Reason: Agitation Stop: 07/13/17 02:57 Last Admin: 05/19/17 23:33 Dose: 1 mg Metoclopramide HCl (Reglan) 10 mg IVP Q8HR [facility] Stop: 07/06/17 20:59 Last Admin: 05/20/17 04:14 Dose: 10 mg Metoprolol Tartrate (Lopressor) 25 mg PO BID [facility] Stop: 06/26/17 08:59 Last Admin: 05/20/17 09:00 Dose: Not Given Mineral Oil (Mineral Oil 30 Ml) 30 ml NG DAILY [facility] Stop: 07/04/17 12:29 Last Admin: 05/20/17 09:00 Dose: Not Given Miscellaneous (Vte Chemical Prophylaxis Screen/ Admission) 1 ea PRN PRN PRN Reason: PROTOCOL Stop: 07/01/17 14:44 Miscellaneous (Amikacin Iv Per Pharmacy) 1 ea PRN PRN PRN Reason: PROTOCOL Stop: 07/13/17 18:39 Miscellaneous (Probiotic Screen) 1 ea PRN PRN PRN Reason: PROTOCOL Stop: 07/15/17 10:37 Miscellaneous (Tpn Per Pharmacy) 1 ea PRN PRN PRN Reason: PROTOCOL Stop: 07/17/17 15:12 Morphine Sulfate (Morphine) 2 mg IVP Q4H PRN PRN Reason: PAIN Stop: 07/11/17 16:49 Last Admin: 05/19/17 23:05 Dose: 2 mg Sulfacetamide Sodium (Sulamyd 10% Oph Soln) 1 drop EACH EYE Q6HR [facility] Stop: 07/16/17 11:59 Last Admin: 05/20/17 05:48 Dose: 1 drop General: Other (sedated and intubated.) HEENT: Atraumatic, PERRLA, EOMI, Mucous membr. moist/pink, Other (oral endotracheal tube,NG tube+) Neck: Supple, +2 carotid pulse wo bruit Cardiovascular: Regular rate, Normal S1, Normal S2 Lungs: Other (diffuse rhonchi.) Abdomen: Soft, Other ( wound VAC anterior open abdominal wall wound. L colostomy retracted but still functional w/ stool output.) Extremities: Edema, Other (no edema and cyanosis.) Neurological: Reflexes 2+, Other (Patient is intubated and sedated) Psych/Mental Status: Other (Sedated) - Procedures Procedures: Procedures Procedure Code Date BYPASS SIGMOID COLON TO CUTANEOUS, OPEN APPROACH [id number] 04/14/17 INSERT EMERGENCY AIRWAY 37596 04/14/17 INSERTION OF ENDOTRACHEAL AIRWAY INTO TRACHEA, VIA OPENING [id number] 04/14/17 PARTIAL REMOVAL OF COLON 80562 04/14/17 RESECTION OF SIGMOID COLON, OPEN APPROACH [id number] 04/14/17 RESPIRATORY VENTILATION, 24-96 CONSECUTIVE HOURS [id number] 04/14/17 VENT MGMT INPAT INIT DAY 07073 04/14/17 VENT MGMT INPAT SUBQ DAY 81913 04/14/17 Assessment/Plan - Problem List Patient Problems: All Active Problems Abscess of sigmoid colon due to diverticulitis (Acute) K57.20 Diverticulitis of sigmoid colon (Acute) K57.32 Obesity (Acute) E66.9 Perforation of sigmoid colon due to diverticulitis (Acute) K57.20 Peritonitis (acute) generalized (Acute) K65.0 - Assessment Assessment: Current Active Problems Problem Status Onset Abscess of sigmoid colon due to diverticulitis Acute Diverticulitis of sigmoid colon Acute Obesity Acute Perforation of sigmoid colon due to diverticulitis Acute Peritonitis (acute) generalized Acute Perforated diverticulitis status post expiratory laparotomy and colostomy placement. Postoperative respiratory failure on vent. Obesity. Conjunctivitis. MDROs organisms positive culture. GI bleed stable. Suspect developing ARDS. Polymicrobial peritonitis due to perforation.. Asthma. SVT currently on Cardizem drip Electrolyte imbalance. SEKOU . Hypernatremia. Encephalopathy due to metabolic and infectious etio. Open surgical wound with wound VAC. Altered mental status secondary to metabolic and infectious encephalopathy. Postop anemia. - Plan Plan: ICU status. Vent support. Nebulizer treatment. Pulmonary toilet. IV antibiotics as per ID. TPN. Sulfacetamide eye drops. Renal consult and follow-up. Corrected electrolytes. PEG and tracheostomy as per GI and surgery. Rate control with cardizem drip. Blood pressure control Wound care with wound VAC Surgical follow-up ID follow-up Cardiology follow-up Pulmonary follow-up ICU care. Symptoms management. Medication management. IV PPI. Monitor lab. Guarded prognosis. Chronic management of his medical illnesses. Care plan discussed with RN. Nutritional Asmnt/Malnutr-PDOC - Dietary Evaluation Malnutrition Findings (Please click <Entered> for more info): Nutritional Asmnt/Malnutrition Start: 04/19/17 14: 21 Text: Status: Complete Freq: Document 04/19/17 14:21 GSUN (Rec: 04/19/17 14:58 [id number]) Nutritional Asmnt/Malnutrition Patient General Information Nutritional Screening Moderate Risk Screening Diagnosis Sepsis, diverticulitis, peritonitis Pertinent Medical Hx/Surgical Hx Asthma, diverticulosis Subjective Information 56 year old male frome home. Pt was restless, moving extremities during visit. 04/14 : sigmoid colectomy, end colostomy, abscess drainage, diffuse peritontis. 04/16: pt started PPN. 04/17: central line and started on TPN. Spoke to family at bedside, explained parenteral nutrition , family undersoto and has no further question at this time. Weight discrepancies noted in EMR, family does not know UBW , estimated nutritional needs based Current Diet Order/ Nutrition Support TPN D10% AA4.25% at 90ml/hr with IL20% 150ml, providing 1401.6kcal Pertinent Medications Dilaudid, Novolog, Culturelle, Magnesium Sulfate, Vancomycin , TPN, Morphine, Multivitamins , Zofran, Protonix, Nacl0.9% Pertinent Labs 04/14: triglycerides 106, total bilirubin 1.1H, glucose 116H 04/17: magnesium 2.5, phsophorus 3.2 04/19: magnesium 1.8L, phosphorus 2.4L, BUN 28H, creatinine 1.3, glucose 154H, total bilirubin 1.1H, triglycerides 238H Nutritional Hx/Data Height 1.7 m Height (Calculated Centimeters) 170.2 Current Weight (lbs) 95.254 kg Weight (Calculated Kilograms) 95.3 Weight (Calculated Grams) 78371.4 [place] Body Weight 148 Weight Status Overweight GI Symptoms Skin Integrity/Comment: [place] 14. Facial non-pitting 1+, bilateral hands pitting 1+ Estimated Nutritional Goals Calories/Kcals/Kg IBW 148/67.3kg Kcals Calculated 2019-2356kcal (30-35kcal/kg) Protein Calculated 101-135g (1.5-2g/kg) Fluid: ml Per MD Nutritional Problem 1. Problem Problem Altered GI function related to Etiology abscess and perforation of sigmoid colon due to diverticulitis aeb Signs/Symptoms: post-operative, on TPN Intervention/Recommendation Comments 1. Recommend TPN D15% AA5.5% at 100ml/hr with IL20% 150ml, providing 2400ml total volume, 2052kcal, 132g protein, meeting 100% of estimated nutritional needs. Carb load 2 .6mg/kg/min (using 210lb adm weight). 2. Monitor for possible refeeding syndrome, 04/18: phsophorus 2.1L, 04/19: magnesium 1.9. 3. Monitor triglycerides, total bilirubin, glucose, renal labs. Expected Outcomes/Goals Expected Outcomes/Goals 1. Pt to meet 100% of estimated nutritional needs on TPN.
[2017-05-20 10:06] LABS: BAND NEUTROPHILE 4 % (0-10); EOSINOPHIL 22 % (0-5); NEUTROPHILS 54 % (40-80)
[2017-05-20 10:08] LABS: PLATELET ESTIMATE ADEQUATE (NORMAL); PLATELET MORPHOLOGY NORMAL (NORMAL)
[2017-05-20] MEDS: TPN 10%-70% CUSTOM IV SCH (16:00)
[2017-05-20] MEDS: Dextrose 5% 1,000 ML IV SCH (16:00)
[2017-05-20] MEDS: Levofloxacin 250mg/50mL 250 MG/50 ML BAG IV SCH ×2 (17:47→17:50)
--- NOTE | 2017-05-20 20:40 | General Progress Note ---
Subjective - Review of Systems Service Date: 05/20/17 Subjective: encephalopathy, obtunded, nonverbal Objective - Results Result Diagrams: 05/20/17 04:30 05/20/17 04:30 Recent Labs: Laboratory Last Values WBC 8.7 Th/cmm (4.8-10.8) 05/20/17 04:30 RBC 3.14 Mil/cmm (4.30-5.70) L 05/20/17 04:30 Hgb 8.4 gm/dL (13.2-17.3) L 05/20/17 04:30 Hct 25.5 % (39.0-49.0) L 05/20/17 04:30 MCV 81.4 fl (80-99) 05/20/17 04:30 MCH 26.6 pg (26.0-30.0) 05/20/17 04:30 MCHC Differential 32.7 pg (28.0-36.0) 05/20/17 04:30 RDW 17.4 % (11.5-20.0) 05/20/17 04:30 Plt Count 335 Th/cmm (150-400) D 05/20/17 04:30 MPV 10.2 fl 05/20/17 04:30 Neutrophils % 61.3 % (40.0-80.0) 05/15/17 04:29 Band Neutrophils % 4 % (0-10) 05/20/17 04:30 Lymphocytes % 17.3 % (20.0-50.0) L 05/15/17 04:29 Monocytes % 8.6 % (2.0-10.0) 05/15/17 04:29 Eosinophils % 12.3 % (0.0-5.0) H 05/15/17 04:29 Basophils % 0.5 % (0.0-2.0) 05/15/17 04:29 Neutrophils (Manual) 54 % (40-80) 05/20/17 04:30 Lymphocytes 15 % (20-50) L 05/20/17 04:30 Monocytes 5 % (2-10) 05/20/17 04:30 Eosinophils 22 % (0-5) H 05/20/17 04:30 Basophils 1 % (0-3) 05/19/17 05:15 Metamyelocytes 1 % (0-0) H 04/22/17 05:04 Platelet Estimate ADEQUATE (NORMAL) 05/20/17 04:30 Platelet Morphology NORMAL (NORMAL) 05/20/17 04:30 Anisocytosis 1+ 04/28/17 06:08 Microcytosis 1+ 05/02/17 05:15 RBC Morph Micro Appear NORMAL (NORMAL) 05/20/17 04:30 ESR > 140 mm/hr (0-20) H 04/20/17 07:00 Plt Count 276 Th/cmm (150-750) 05/19/17 07:37 PT 13.7 SECONDS (9.5-11.5) H 05/19/17 07:37 INR 1.30 (0.5-1.4) 05/19/17 07:37 PTT (Actin FS) 34.8 SECONDS (26.0-38.0) 05/19/17 07:37 Fibrinogen 222.0 mg/dL (200.0-400.0) 05/19/17 07:37 D-Dimer 3160 ng/mL (100-400) H 05/19/17 07:37 Specimen Source Arterial 05/18/17 10:02 Sample Site Left Radial 05/18/17 10:02 pH 7.45 (7.35-7.45) 05/18/17 10:02 pCO2 40.0 mmHg (35.0-45.0) 05/18/17 10:02 pO2 97.0 mmHg (80.0-100.0) 05/18/17 10:02 HCO3 27.7 mEq/L (20.0-26.0) H 05/18/17 10:02 Base Excess 3.5 mEq/L (-3.0-3.0) H 05/18/17 10:02 O2 Saturation 98.0 % (92.0-100.0) 05/18/17 10:02 Chau Test PASS 05/18/17 10:02 Vent Rate 16 05/18/17 10:02 Inspired O2 30 05/18/17 10:02 Tidal Volume 450 05/18/17 10:02 PEEP 3 05/18/17 10:02 Pressure (ins/psv/peep) NA 05/16/17 08:37 Critical Value PW 05/18/17 10:02 Sodium 148 mEq/L (136-145) H 05/20/17 04:30 Potassium 4.0 mEq/L (3.5-5.1) 05/20/17 04:30 Chloride 120 mEq/L (98-107) H 05/20/17 04:30 Carbon Dioxide 26.1 mEq/L (21.0-31.0) 05/20/17 04:30 Anion Gap 5.9 (7.0-16.0) L 05/20/17 04:30 BUN 72 mg/dL (7-25) H 05/20/17 04:30 Creatinine 1.6 mg/dL (0.7-1.3) H 05/20/17 04:30 Est GFR ( Amer) 57.6 ml/min (>90) 05/20/17 04:30 Est GFR (Non-Af Amer) 47.6 ml/min 05/20/17 04:30 BUN/Creatinine Ratio 45.0 05/20/17 04:30 Glucose 130 mg/dL (70-105) H 05/20/17 04:30 POC Glucose 131 MG/DL (70 - 105) H 05/20/17 18:03 Hemoglobin A1c % 6.7 % (4.0-6.0) H 04/22/17 05:04 Whole Bld Lactic Acid 1.66 mmol/L (0.60-1.99) 05/12/17 04:40 Uric Acid 3.6 mg/dL (4.4-7.6) L 04/20/17 07:00 Calcium 11.2 mg/dL (8.6-10.3) H 05/20/17 04:30 Phosphorus 3.3 mg/dL (2.5-5.0) 05/20/17 04:30 Magnesium 2.4 mg/dL (1.9-2.7) 05/20/17 04:30 Total Bilirubin 0.8 mg/dL (0.3-1.0) 05/20/17 04:30 Direct Bilirubin 0.35 mg/dL (0.0-0.2) H 05/18/17 04:50 AST 88 U/L (13-39) H 05/20/17 04:30 ALT 40 U/L (7-52) 05/20/17 04:30 Alkaline Phosphatase 228 U/L (34-104) H 05/20/17 04:30 Ammonia 42 umol/L (16-53) 05/18/17 04:50 Creatine Kinase 136 U/L (30-223) 04/14/17 14:55 Troponin I 0.01 ng/mL (0.01-0.05) 04/22/17 05:04 C-Reactive Protein 27.5 mg/dL (0.0-0.9) H 05/15/17 04:29 B-Natriuretic Peptide 20.7 pg/mL (5.0-100.0) 05/13/17 04:27 Total Protein 6.6 gm/dL (6.0-8.3) 05/20/17 04:30 Albumin 2.7 gm/dL (4.2-5.5) L 05/20/17 04:30 Globulin 3.9 gm/dL 05/20/17 04:30 Albumin/Globulin Ratio 0.7 (1.0-1.8) L 05/20/17 04:30 Prealbumin 7 mg/dL (10-36) L 05/15/17 04:29 Triglycerides 271 mg/dL (<150) H 05/20/17 04:30 Cholesterol 55 mg/dL (<200) 05/20/17 04:30 LDL Cholesterol Direct 38 mg/dL (75-193) L 04/14/17 14:55 HDL Cholesterol 13 mg/dL (23-92) L 04/14/17 14:55 Amylase 53 U/L (29-103) 05/09/17 06:00 Lipase 85 U/L (11-82) H 05/09/17 06:00 Vitamin D 25-Hydroxy 25.8 ng/mL (30.0-100.0) L 05/18/17 04:50 Procalcitonin SEE REF LAB REPORT 05/05/17 04:35 PTH Interpretation (()) 05/18/17 04:50 PTH Intact <6 pg/mL (15-65) L 05/18/17 04:50 Calcium (PTH Intact) 9.6 mg/dL (8.7-10.2) 05/18/17 04:50 Urine Source SEN PORT 05/18/17 16:30 Urine Color YELLOW 05/18/17 16:30 Urine Clarity CLOUDY (CLEAR) 05/18/17 16:30 Urine pH 5.5 (4.6 - 8.0) 05/18/17 16:30 Ur Specific [place] 1.010 (1.005-1.030) 05/18/17 16:30 Urine Protein NEGATIVE mg/dL (NEGATIVE) 05/18/17 16:30 Urine Glucose (UA) NEGATIVE mg/dL (NEGATIVE) 05/18/17 16:30 Urine Ketones NEGATIVE mg/dL (NEGATIVE) 05/18/17 16:30 Urine Blood MODERATE (NEGATIVE) H 05/18/17 16:30 Urine Nitrate NEGATIVE (NEGATIVE) 05/18/17 16:30 Urine Bilirubin NEGATIVE (NEGATIVE) 05/18/17 16:30 Urine Urobilinogen 0.2 E.U./dL (0.2 - 1.0) 05/18/17 16:30 Ur Leukocyte Esterase TRACE (NEGATIVE) H 05/18/17 16:30 Urine RBC 10-25 /hpf (0-5) H 05/18/17 16:30 Urine WBC 6-10 /hpf (0-5) H 05/18/17 16:30 Ur Epithelial Cells FEW /lpf (FEW) 05/18/17 16:30 Amorphous Sediment MANY URATES (NONE SEEN) 04/14/17 15:05 Urine Bacteria NONE SEEN /hpf (NONE SEEN) 05/18/17 16:30 Hyaline Casts 5-10 /lpf (0-2) H 05/18/17 16:30 Urine Sperm MANY /hpf (NONE SEEN) 05/18/17 16:30 Amikacin Peak 23.4 ug/mL (20.0-30.0) 05/19/17 16:02 Amikacin Trough 8.6 ug/mL (1.0-8.0) H 05/19/17 13:30 Random Amikacin 6.7 ug/ml (1.0-30.0) 05/17/17 04:25 Vancomycin Trough 13.5 ug/mL (10-20) 04/19/17 19:20 Helicobacter pylori Ab NEGATIVE (NEGATIVE) 05/04/17 10:05 Blood Type O POSITIVE 05/02/17 07:12 Antibody Screen NEGATIVE 05/02/17 07:12 Crossmatch See Detail 05/02/17 07:12 - Physical Exam Vitals and I&O: Vital Signs Temp 99.4 F 05/20/17 20:00 Pulse 119 05/20/17 20:00 Resp 25 05/20/17 20:00 BP 127/84 05/20/17 20:00 Pulse Ox 98 05/20/17 20:00 Intake & Output 05/20/17 05/20/17 05/21/17 06:59 18:59 06:59 Intake Total 352.385 5865.183 Output Total 2700 5350 Balance -2009.767 -1571.817 Weight (lbs) 102.557 kg 102.512 kg Intake: Intake, IV Amount 619.434 2514.183 Albumin 25% 25gm/100mL 25 200 gm In 100 ml @ 50 mls/hr IV Q8H [facility] Rx#:[id number] Amikacin 400 mg In 101.6 101.6 Dextrose 5% 100 ml @ 100 mls/hr IV Q12H [facility] Rx#: [id number] Dextrose 5% 1,000 ml @ 50 1000 mls/hr IV .Q20H [facility] Rx#: [id number] Levofloxacin 250mg/50mL 50 250 mg In 50 ml @ 50 mls/ hr IV Q24HR [facility] Rx#: [id number] Multivitamin Inj 10 ml In 2386.667 Dextrose 70% 1,740 ml In Amino Acids 10% 500 ml In Intralipids 20% 150 ml @ 100 mls/hr IV .Q24H [facility] Rx#:[id number] Norepinephrine 4 mg In 238.633 89.916 Dextrose 5% 250 ml @ 4 MCG/MIN 15.24 mls/hr IV TITR PRN Rx#:[id number] Tigecycline 50 mg In 100 100 Sodium Chloride 0.9% 100 ml @ 100 mls/hr IV Q12HR [facility] Rx#:[id number] cefTAZidime 1 gm In 50 50 Sodium Chloride 0.9% 50 ml @ Per Protocol IV Q12HR [facility] Rx#:[id number] Output: Gastric Drainage 50 Urine 2700 5300 Other 0 Active Medications: Current Medications Acetaminophen (Tylenol 650mg/20.3ml Suspension) 650 mg NG Q6H PRN PRN Reason: FEVER/PAIN Stop: 06/21/17 17:45 Last Admin: 05/15/17 09:50 Dose: 650 mg Albuterol/Ipratropium (Duoneb Neb) 3 ml HHN Q4HRT [facility] Stop: 06/15/17 14:59 Last Admin: 05/20/17 19:47 Dose: 3 ml Amiodarone HCl (Cordarone) 200 mg NG BID [facility] Stop: 06/24/17 23:14 Last Admin: 05/20/17 17:00 Dose: Not Given Budesonide (Pulmicort) 0.5 mg HHN BIDRT [facility] Stop: 06/15/17 18:59 Last Admin: 05/20/17 19:47 Dose: 0.5 mg Chlorhexidine Gluconate (Peridex) 15 ml MM 08,1999 [facility] Stop: 06/30/17 19:59 Last Admin: 05/20/17 19:40 Dose: 15 ml Enalaprilat (Vasotec) 2.5 mg IVP Q4HR PRN PRN Reason: SBP>150 Stop: 07/06/17 15:59 Famotidine (Pepcid) 20 mg IVP DAILY [facility] Stop: 07/18/17 08:59 Last Admin: 05/20/17 09:00 Dose: 20 mg Furosemide (Lasix) 40 mg IVP BID [facility] Stop: 07/12/17 16:59 Last Admin: 05/20/17 17:08 Dose: 40 mg Multivitamins/Minerals 10 ml/Dextrose/ Amino Acids/Electrolytes/ Fat Emulsion Intravenous 2,400 mls @ 100 mls/hr IV .Q24H [facility] Stop: 06/23/17 15:59 Last Admin: 05/20/17 16:00 Dose: 100 mls/hr Diltiazem HCl 125 mg/ Dextrose 125 mls @ 10 mls/hr IV TITR [facility]; 10 MG/HR PRN Reason: Protocol Stop: 07/06/17 11:14 Last Titration: 05/11/17 18:00 Dose: 0 mg/hr, 0 mls/hr Tigecycline 50 mg/ Sodium (Chloride) 100 mls @ 100 mls/hr IV Q12HR [facility] Stop: 07/13/17 20:59 Last Infusion: 05/20/17 10:00 Dose: Infused Ceftazidime 1 gm/ Sodium (Chloride) 50 mls @ 0 mls/hr IV Q12HR [facility] PRN Reason: Per Protocol Stop: 07/16/17 20:59 Last Infusion: 05/20/17 08:58 Dose: Infused Levofloxacin (Levaquin Pb) 250 mg in 50 mls @ 50 mls/hr IV Q24HR [facility] Stop: 07/17/17 17:59 Last Infusion: 05/20/17 18:50 Dose: Infused Amikacin Sulfate 400 mg/ (Dextrose) 101.6 mls @ 100 mls/hr IV Q12H [facility] Stop: 07/17/17 13:59 Last Infusion: 05/20/17 14:54 Dose: Infused Dextrose (D5w) 1,000 mls @ 50 mls/hr IV .Q20H [facility] Stop: 07/18/17 10:05 Last Admin: 05/20/17 16:00 Dose: 50 mls/hr Norepinephrine Bitartrate 4 mg (/ Dextrose) 254 mls @ 15.24 mls/hr IV TITR PRN ; Protocol; 4 MCG/MIN PRN Reason: BP MAINTENANCE (PER PROTOCOL) Stop: 07/18/17 10:59 Last Titration: 05/20/17 16:00 Dose: 0 mcg/min, 0 mls/hr Insulin Aspart (Novolog Insulin Sliding Scale) 0 units SUBQ Q6HR [facility] PRN Reason: Protocol Stop: 07/17/17 11:59 Last Admin: 05/20/17 18:03 Dose: Not Given Lactobacillus Rhamnosus (Culturelle) 1 each PO DAILY [facility] Stop: 07/16/17 08:59 Last Admin: 05/20/17 09:00 Dose: Not Given Lorazepam (Ativan) 1 mg IVP Q4HR PRN; Protocol PRN Reason: Agitation Stop: 07/13/17 02:57 Last Admin: 05/20/17 19:48 Dose: 1 mg Metoclopramide HCl (Reglan) 10 mg IVP Q8HR [facility] Stop: 07/06/17 20:59 Last Admin: 05/20/17 12:48 Dose: 10 mg Metoprolol Tartrate (Lopressor) 25 mg PO BID [facility] Stop: 06/26/17 08:59 Last Admin: 05/20/17 17:00 Dose: Not Given Mineral Oil (Mineral Oil 30 Ml) 30 ml NG DAILY [facility] Stop: 07/04/17 12:29 Last Admin: 05/20/17 09:00 Dose: Not Given Miscellaneous (Vte Chemical Prophylaxis Screen/ Admission) 1 ea PRN PRN PRN Reason: PROTOCOL Stop: 07/01/17 14:44 Miscellaneous (Amikacin Iv Per Pharmacy) 1 ea PRN PRN PRN Reason: PROTOCOL Stop: 07/13/17 18:39 Miscellaneous (Probiotic Screen) 1 ea PRN PRN PRN Reason: PROTOCOL Stop: 07/15/17 10:37 Miscellaneous (Tpn Per Pharmacy) 1 ea PRN PRN PRN Reason: PROTOCOL Stop: 07/17/17 15:12 Morphine Sulfate (Morphine) 2 mg IVP Q4H PRN PRN Reason: PAIN Stop: 07/11/17 16:49 Last Admin: 05/19/17 23:05 Dose: 2 mg Sulfacetamide Sodium (Sulamyd 10% [facility]) 1 drop EACH EYE Q6HR [facility] Stop: 07/16/17 11:59 Last Admin: 05/20/17 17:52 Dose: 1 drop General: Other (sedated and intubated.) HEENT: Atraumatic, PERRLA, EOMI, Mucous membr. moist/pink, Other (oral endotracheal tube,NG tube+) Neck: Supple, +2 carotid pulse wo bruit Cardiovascular: Regular rate, Normal S1, Normal S2 Lungs: Other (diffuse rhonchi.) Abdomen: Soft, Other ( wound VAC anterior open abdominal wall wound. L colostomy retracted but still functional w/ stool output.) Extremities: Edema, Other (no edema and cyanosis.) Neurological: Reflexes 2+, Other (Patient is intubated and sedated) Psych/Mental Status: Other (Sedated) - Procedures Procedures: Procedures Procedure Code Date BYPASS SIGMOID COLON TO CUTANEOUS, OPEN APPROACH [id number] 04/14/17 INSERT EMERGENCY AIRWAY 49158 04/14/17 INSERTION OF ENDOTRACHEAL AIRWAY INTO TRACHEA, VIA OPENING [id number] 04/14/17 PARTIAL REMOVAL OF COLON 35581 04/14/17 RESECTION OF SIGMOID COLON, OPEN APPROACH [id number] 04/14/17 RESPIRATORY VENTILATION, 24-96 CONSECUTIVE HOURS [id number] 04/14/17 VENT MGMT INPAT INIT DAY 62382 04/14/17 VENT MGMT INPAT SUBQ DAY 08668 04/14/17 Assessment/Plan - Problem List Patient Problems: All Active Problems Abscess of sigmoid colon due to diverticulitis (Acute) K57.20 Diverticulitis of sigmoid colon (Acute) K57.32 Obesity (Acute) E66.9 Perforation of sigmoid colon due to diverticulitis (Acute) K57.20 Peritonitis (acute) generalized (Acute) K65.0 - Assessment Assessment: s/p ex lap, sigmoid colectomy, drainage of peritonitis, lysis adhesions, ROLANDO drain placement 04/14 icu status encephalopathic, confused, obtunded, intubated. continue IVfluids +TPN renal insufficiency, elevated BUN/creat dvt prophylaxis Lovenox SQ colostomy end necrosed and sloughed, severely retracted, but functional w/ stool output..... poor candidate for revision of colostomy open abd wound, wound vac in place, changed q 3days, wound marge, still some yellow slough. continue iv abx. sen cath supportive care.... s/w family; guarded prognosis. EGD 05/04 results noted by Reyes/GI peptic ulcer disease, NGT trauma multiple prior CT abd/pelvis....postop changes, no obvious drainable intra-abd abscess or collections tachycardia, normal WBC electrolyte derangement, renal f/u, fluid management. may need HD ok to give PO meds via NGT TF via NGT held, residuals high, NGT to suction moderate output [facility] is following recommended to family tracheostomy, EGD + PEG, change central line...Dr. Bro feels pt is high risk for extubation.....Dr. Bro recommends tracheostomy. planned trach for tomorrow if medically stable. CT abd/pelvis results noted, no obvious drainable abscess or collection, no free air. continue wound vac to open abd wound. Nutritional Asmnt/Malnutr-PDOC - Dietary Evaluation Malnutrition Findings (Please click <Entered> for more info): Nutritional Asmnt/Malnutrition Start: 04/19/17 14: 21 Text: Status: Complete Freq: Document 04/19/17 14:21 GSUN (Rec: 04/19/17 14:58 [id number]) Nutritional Asmnt/Malnutrition Patient General Information Nutritional Screening Moderate Risk Screening Diagnosis Sepsis, diverticulitis, peritonitis Pertinent Medical Hx/Surgical Hx Asthma, diverticulosis Subjective Information 56 year old male frome home. Pt was restless, moving extremities during visit. 04/14 : sigmoid colectomy, end colostomy, abscess drainage, diffuse peritontis. 04/16: pt started PPN. 04/17: central line and started on TPN. Spoke to family at bedside, explained parenteral nutrition , family undersoto and has no further question at this time. Weight discrepancies noted in EMR, family does not know UBW , estimated nutritional needs based Current Diet Order/ Nutrition Support TPN D10% AA4.25% at 90ml/hr with IL20% 150ml, providing 1401.6kcal Pertinent Medications Dilaudid, Novolog, Culturelle, Magnesium Sulfate, Vancomycin , TPN, Morphine, Multivitamins , Zofran, Protonix, Nacl0.9% Pertinent Labs 04/14: triglycerides 106, total bilirubin 1.1H, glucose 116H 04/17: magnesium 2.5, phsophorus 3.2 04/19: magnesium 1.8L, phosphorus 2.4L, BUN 28H, creatinine 1.3, glucose 154H, total bilirubin 1.1H, triglycerides 238H Nutritional Hx/Data Height 1.7 m Height (Calculated Centimeters) 170.2 Current Weight (lbs) 95.254 kg Weight (Calculated Kilograms) 95.3 Weight (Calculated Grams) 19004.4 Rheems Body Weight 148 Weight Status Overweight GI Symptoms Skin Integrity/Comment: Gilmer 14. Facial non-pitting 1+, bilateral hands pitting 1+ Estimated Nutritional Goals Calories/Kcals/Kg IBW 148/67.3kg Kcals Calculated 2019-2356kcal (30-35kcal/kg) Protein Calculated 101-135g (1.5-2g/kg) Fluid: ml Per MD Nutritional Problem 1. Problem Problem Altered GI function related to Etiology abscess and perforation of sigmoid colon due to diverticulitis aeb Signs/Symptoms: post-operative, on TPN Intervention/Recommendation Comments 1. Recommend TPN D15% AA5.5% at 100ml/hr with IL20% 150ml, providing 2400ml total volume, 2052kcal, 132g protein, meeting 100% of estimated nutritional needs. Carb load 2 .6mg/kg/min (using 210lb adm weight). 2. Monitor for possible refeeding syndrome, 04/18: phsophorus 2.1L, 04/19: magnesium 1.9. 3. Monitor triglycerides, total bilirubin, glucose, renal labs. Expected Outcomes/Goals Expected Outcomes/Goals 1. Pt to meet 100% of estimated nutritional needs on TPN.
--- NOTE | 2017-05-20 21:54 | Progress Notes ---
DATE: 05/20/2017 PROBLEM LIST: 1. Persistent respiratory failure. 2. Metabolic encephalopathy. 3. Persistent guarding and rigidity, lower abdomen. SYMPTOMS: Nil. The patient is quite obtunded, no respiratory distress. PHYSICAL EXAMINATION: VITAL SIGNS: The patient's temperature is around 97, heart rate is in the 90s, blood pressure 125/70. NECK: Veins not visualized. CHEST: Clear without any other adventitious breath sounds. ABDOMEN: comber tender, guarding, lower abdomen. LABORATORY DATA: White count is 8.7, hemoglobin 8.4. Electrolytes: Sodium has dropped down to 148. BUN is 72. ASSESSMENT: The patient is clinically status quo. PLANS AND SUGGESTIONS: For possible trach tomorrow per nursing staff. No acute or new changes respiratory-botello. JOB# [id number]
[2017-05-21] MEDS: Morphine Sulfate 4 mg/mL 1mL Syr IVP PRN (00:30)
[2017-05-21] MEDS: INSULIN ASPART SLIDING SCALE 100 UNITS/ML UNIT SUBQ SCH ×4 (00:34→18:04)
[2017-05-21] MEDS: Albuterol/Ipratropium Neb 3 ML AERS HHN SCH ×6 (02:56→23:20)
[2017-05-21] MEDS: Metoclopramide 5 mg/mL 2mL Vial IVP SCH ×3 (05:07→21:01)
[2017-05-21 05:16] LABS: HEMOGLOBIN 9.6 gm/dL (13.2-17.3); MEAN CELL VOLUME 80.4 fl (80-99); MEAN CORPUSCULAR HEMOGLOBIN 26.6 pg (26.0-30.0); MEAN CORPUSCULAR HGB CONC 33.1 pg (28.0-36.0); PLATELET COUNT 358 Th/cmm (150-400); RED BLOOD COUNT 3.59 Mil/cmm (4.30-5.70); RED CELL DISTRIBUTION WIDTH 17.7 % (11.5-20.0); WHITE BLOOD COUNT 9.2 Th/cmm (4.8-10.8)
[2017-05-21 05:35] LABS: ALB/GLOB RATIO 0.7 (1.0-1.8); ANION GAP 9.8 (7.0-16.0); BILIRUBIN,TOTAL 0.9 mg/dL (0.3-1.0); BUN/CREATININE RATIO 41.1; CALCIUM SERUM 11.3 mg/dL (8.6-10.3); CARBON DIOXIDE 27.2 mEq/L (21.0-31.0); CREATININE - SERUM 1.9 mg/dL (0.7-1.3); MAGNESIUM 2.2 mg/dL (1.9-2.7); PHOSPHOROUS 3.8 mg/dL (2.5-5.0)
[2017-05-21 05:43] LABS: HEMATOCRIT 28.9 % (39.0-49.0)
[2017-05-21] MEDS: Budesonide 0.5 Mg/2 mL Ud HHN SCH ×2 (07:34→19:21)
[2017-05-21] MEDS: Chlorhexidine Gluconate 0.12% 15mL Mouthwash MM SCH ×2 (07:42→20:57)
[2017-05-21 07:45] LABS: ANISOCYTOSIS 1+; EOSINOPHIL 23 % (0-5); NEUTROPHILS 42 % (40-80); PLATELET ESTIMATE ADEQUATE (NORMAL); PLATELET MORPHOLOGY NORMAL (NORMAL); TOTAL CELLS COUNTED 100
[2017-05-21] MEDS: cefTAZidime 1 GM in Sodium Chloride 0.9% 50 ML IV SCH ×2 (08:29→22:00)
[2017-05-21] MEDS: Lactobacillus Rhamnosus 10 Billion CFU Capsule PO SCH (09:00)
[2017-05-21] MEDS: Venelex 60gm Tube TP SCH (09:00)
--- NOTE | 2017-05-21 09:18 | General Progress Note ---
Subjective - Review of Systems Subjective: Patient is seen and examined. Patient currently on vent. Patient is not following commands. Chart reviewed. Patient's son at bedside. Objective - Results Result Diagrams: 05/21/17 04:30 05/21/17 04:30 Recent Labs: Laboratory Last Values WBC 9.2 Th/cmm (4.8-10.8) 05/21/17 04:30 RBC 3.59 Mil/cmm (4.30-5.70) L 05/21/17 04:30 Hgb 9.6 gm/dL (13.2-17.3) L 05/21/17 04:30 Hct 28.9 % (39.0-49.0) L D 05/21/17 04:30 MCV 80.4 fl (80-99) 05/21/17 04:30 MCH 26.6 pg (26.0-30.0) 05/21/17 04:30 MCHC Differential 33.1 pg (28.0-36.0) 05/21/17 04:30 RDW 17.7 % (11.5-20.0) 05/21/17 04:30 Plt Count 358 Th/cmm (150-400) 05/21/17 04:30 MPV 10.0 fl 05/21/17 04:30 Neutrophils % 61.3 % (40.0-80.0) 05/15/17 04:29 Band Neutrophils % 4 % (0-10) 05/20/17 04:30 Lymphocytes % 17.3 % (20.0-50.0) L 05/15/17 04:29 Monocytes % 8.6 % (2.0-10.0) 05/15/17 04:29 Eosinophils % 12.3 % (0.0-5.0) H 05/15/17 04:29 Basophils % 0.5 % (0.0-2.0) 05/15/17 04:29 Neutrophils (Manual) 42 % (40-80) 05/21/17 04:30 Lymphocytes 26 % (20-50) 05/21/17 04:30 Monocytes 8 % (2-10) 05/21/17 04:30 Eosinophils 23 % (0-5) H 05/21/17 04:30 Basophils 1 % (0-3) 05/19/17 05:15 Metamyelocytes 1 % (0-0) H 04/22/17 05:04 Atypical Lymphocytes 1 % 05/21/17 04:30 Platelet Estimate ADEQUATE (NORMAL) 05/21/17 04:30 Platelet Morphology NORMAL (NORMAL) 05/21/17 04:30 Anisocytosis 1+ 05/21/17 04:30 Microcytosis 1+ 05/02/17 05:15 RBC Morph Micro Appear ABNORMAL (NORMAL) 05/21/17 04:30 ESR > 140 mm/hr (0-20) H 04/20/17 07:00 Plt Count 276 Th/cmm (150-750) 05/19/17 07:37 PT 13.7 SECONDS (9.5-11.5) H 05/19/17 07:37 INR 1.30 (0.5-1.4) 05/19/17 07:37 PTT (Actin FS) 34.8 SECONDS (26.0-38.0) 05/19/17 07:37 Fibrinogen 222.0 mg/dL (200.0-400.0) 05/19/17 07:37 D-Dimer 3160 ng/mL (100-400) H 05/19/17 07:37 Specimen Source Arterial 05/18/17 10:02 Sample Site Left Radial 05/18/17 10:02 pH 7.45 (7.35-7.45) 05/18/17 10:02 pCO2 40.0 mmHg (35.0-45.0) 05/18/17 10:02 pO2 97.0 mmHg (80.0-100.0) 05/18/17 10:02 HCO3 27.7 mEq/L (20.0-26.0) H 05/18/17 10:02 Base Excess 3.5 mEq/L (-3.0-3.0) H 05/18/17 10:02 O2 Saturation 98.0 % (92.0-100.0) 05/18/17 10:02 Chau Test PASS 05/18/17 10:02 Vent Rate 16 05/18/17 10:02 Inspired O2 30 05/18/17 10:02 Tidal Volume 450 05/18/17 10:02 PEEP 3 05/18/17 10:02 Pressure (ins/psv/peep) NA 05/16/17 08:37 Critical Value PW 05/18/17 10:02 Sodium 149 mEq/L (136-145) H 05/21/17 04:30 Potassium 4.0 mEq/L (3.5-5.1) 05/21/17 04:30 Chloride 116 mEq/L (98-107) H 05/21/17 04:30 Carbon Dioxide 27.2 mEq/L (21.0-31.0) 05/21/17 04:30 Anion Gap 9.8 (7.0-16.0) 05/21/17 04:30 BUN 78 mg/dL (7-25) H 05/21/17 04:30 Creatinine 1.9 mg/dL (0.7-1.3) H 05/21/17 04:30 Est GFR ( Amer) 47.2 ml/min (>90) 05/21/17 04:30 Est GFR (Non-Af Amer) 39.0 ml/min 05/21/17 04:30 BUN/Creatinine Ratio 41.1 05/21/17 04:30 Glucose 169 mg/dL (70-105) H 05/21/17 04:30 POC Glucose 157 MG/DL (70 - 105) H 05/21/17 05:47 Hemoglobin A1c % 6.7 % (4.0-6.0) H 04/22/17 05:04 Whole Bld Lactic Acid 1.66 mmol/L (0.60-1.99) 05/12/17 04:40 Uric Acid 3.6 mg/dL (4.4-7.6) L 04/20/17 07:00 Calcium 11.3 mg/dL (8.6-10.3) H 05/21/17 04:30 Phosphorus 3.8 mg/dL (2.5-5.0) 05/21/17 04:30 Magnesium 2.2 mg/dL (1.9-2.7) 05/21/17 04:30 Total Bilirubin 0.9 mg/dL (0.3-1.0) 05/21/17 04:30 Direct Bilirubin 0.35 mg/dL (0.0-0.2) H 05/18/17 04:50 AST 84 U/L (13-39) H 05/21/17 04:30 ALT 40 U/L (7-52) 05/21/17 04:30 Alkaline Phosphatase 269 U/L (34-104) H 05/21/17 04:30 Ammonia 42 umol/L (16-53) 05/18/17 04:50 Creatine Kinase 136 U/L (30-223) 04/14/17 14:55 Troponin I 0.01 ng/mL (0.01-0.05) 04/22/17 05:04 C-Reactive Protein 27.5 mg/dL (0.0-0.9) H 05/15/17 04:29 B-Natriuretic Peptide 20.7 pg/mL (5.0-100.0) 05/13/17 04:27 Total Protein 7.0 gm/dL (6.0-8.3) 05/21/17 04:30 Albumin 2.8 gm/dL (4.2-5.5) L 05/21/17 04:30 Globulin 4.2 gm/dL 05/21/17 04:30 Albumin/Globulin Ratio 0.7 (1.0-1.8) L 05/21/17 04:30 Prealbumin 7 mg/dL (10-36) L 05/15/17 04:29 Triglycerides 271 mg/dL (<150) H 05/20/17 04:30 Cholesterol 55 mg/dL (<200) 05/20/17 04:30 LDL Cholesterol Direct 38 mg/dL (75-193) L 04/14/17 14:55 HDL Cholesterol 13 mg/dL (23-92) L 04/14/17 14:55 Amylase 53 U/L (29-103) 05/09/17 06:00 Lipase 85 U/L (11-82) H 05/09/17 06:00 Vitamin D 25-Hydroxy 25.8 ng/mL (30.0-100.0) L 05/18/17 04:50 Procalcitonin SEE REF LAB REPORT 05/05/17 04:35 PTH Interpretation (()) 05/18/17 04:50 PTH Intact <6 pg/mL (15-65) L 05/18/17 04:50 Calcium (PTH Intact) 9.6 mg/dL (8.7-10.2) 05/18/17 04:50 Urine Source [place] 05/18/17 16:30 Urine Color YELLOW 05/18/17 16:30 Urine Clarity CLOUDY (CLEAR) 05/18/17 16:30 Urine pH 5.5 (4.6 - 8.0) 05/18/17 16:30 Ur Specific [place] 1.010 (1.005-1.030) 05/18/17 16:30 Urine Protein NEGATIVE mg/dL (NEGATIVE) 05/18/17 16:30 Urine Glucose (UA) NEGATIVE mg/dL (NEGATIVE) 05/18/17 16:30 Urine Ketones NEGATIVE mg/dL (NEGATIVE) 05/18/17 16:30 Urine Blood MODERATE (NEGATIVE) H 05/18/17 16:30 Urine Nitrate NEGATIVE (NEGATIVE) 05/18/17 16:30 Urine Bilirubin NEGATIVE (NEGATIVE) 05/18/17 16:30 Urine Urobilinogen 0.2 E.U./dL (0.2 - 1.0) 05/18/17 16:30 Ur Leukocyte Esterase TRACE (NEGATIVE) H 05/18/17 16:30 Urine RBC 10-25 /hpf (0-5) H 05/18/17 16:30 Urine WBC 6-10 /hpf (0-5) H 05/18/17 16:30 Ur Epithelial Cells FEW /lpf (FEW) 05/18/17 16:30 Amorphous Sediment MANY URATES (NONE SEEN) 04/14/17 15:05 Urine Bacteria NONE SEEN /hpf (NONE SEEN) 05/18/17 16:30 Hyaline Casts 5-10 /lpf (0-2) H 05/18/17 16:30 Urine Sperm MANY /hpf (NONE SEEN) 05/18/17 16:30 Amikacin Peak 23.4 ug/mL (20.0-30.0) 05/19/17 16:02 Amikacin Trough 8.6 ug/mL (1.0-8.0) H 05/19/17 13:30 Random Amikacin 6.7 ug/ml (1.0-30.0) 05/17/17 04:25 Vancomycin Trough 13.5 ug/mL (10-20) 04/19/17 19:20 Helicobacter pylori Ab NEGATIVE (NEGATIVE) 05/04/17 10:05 Blood Type O POSITIVE 05/02/17 07:12 Antibody Screen NEGATIVE 05/02/17 07:12 Crossmatch See Detail 05/02/17 07:12 - Physical Exam Vitals and I&O: Vital Signs Temp 97.2 F 05/21/17 08:00 Pulse 108 05/21/17 08:00 Resp 20 05/21/17 08:00 BP 111/69 05/21/17 09:04 Pulse Ox 99 05/21/17 08:00 Intake & Output 05/20/17 05/21/17 05/21/17 18:59 06:59 18:59 Intake Total 3778.183 1451.6 Output Total 5350 1850 Balance -1571.817 -398.4 Weight (lbs) 102.512 kg 101.605 kg 101.605 kg Intake: Intake, IV Amount 3778.183 251.6 Amikacin 400 mg In 101.6 101.6 Dextrose 5% 100 ml @ 100 mls/hr IV Q12H [facility] Rx#: [id number] Dextrose 5% 1,000 ml @ 50 1000 mls/hr IV .Q20H [facility] Rx#: [id number] Levofloxacin 250mg/50mL 50 250 mg In 50 ml @ 50 mls/ hr IV Q24HR [facility] Rx#: [id number] Multivitamin Inj 10 ml In 2386.667 Dextrose 70% 1,740 ml In Amino Acids 10% 500 ml In Intralipids 20% 150 ml @ 100 mls/hr IV .Q24H [facility] Rx#:[id number] Norepinephrine 4 mg In 89.916 Dextrose 5% 250 ml @ 4 MCG/MIN 15.24 mls/hr IV TITR PRN Rx#:[id number] Tigecycline 50 mg In 100 100 Sodium Chloride 0.9% 100 ml @ 100 mls/hr IV Q12HR [facility] Rx#:[id number] cefTAZidime 1 gm In 50 50 Sodium Chloride 0.9% 50 ml @ Per Protocol IV Q12HR [facility] Rx#:[id number] Oral 0 TPN/PPN 1200 Output: Gastric Drainage 50 50 Urine 5300 1800 Stool 0 Other 0 Active Medications: Current Medications Acetaminophen (Tylenol 650mg/20.3ml Suspension) 650 mg NG Q6H PRN PRN Reason: FEVER/PAIN Stop: 06/21/17 17:45 Last Admin: 05/15/17 09:50 Dose: 650 mg Albuterol/Ipratropium (Duoneb Neb) 3 ml HHN Q4HRT [facility] Stop: 06/15/17 14:59 Last Admin: 05/21/17 07:34 Dose: 3 ml Amiodarone HCl (Cordarone) 200 mg NG BID [facility] Stop: 06/24/17 23:14 Last Admin: 05/20/17 17:00 Dose: Not Given Budesonide (Pulmicort) 0.5 mg HHN BIDRT [facility] Stop: 06/15/17 18:59 Last Admin: 05/21/17 07:34 Dose: 0.5 mg Chlorhexidine Gluconate (Peridex) 15 ml MM 0800,1999 [facility] Stop: 06/30/17 19:59 Last Admin: 05/21/17 07:42 Dose: 15 ml Enalaprilat (Vasotec) 2.5 mg IVP Q4HR PRN PRN Reason: SBP>150 Stop: 07/06/17 15:59 Famotidine (Pepcid) 20 mg IVP DAILY [facility] Stop: 07/18/17 08:59 Last Admin: 05/21/17 09:03 Dose: 20 mg Furosemide (Lasix) 40 mg IVP BID [facility] Stop: 07/12/17 16:59 Last Admin: 05/21/17 09:04 Dose: 40 mg Multivitamins/Minerals 10 ml/Dextrose/ Amino Acids/Electrolytes/ Fat Emulsion Intravenous 2,400 mls @ 100 mls/hr IV .Q24H [facility] Stop: 06/23/17 15:59 Last Admin: 05/20/17 16:00 Dose: 100 mls/hr Diltiazem HCl 125 mg/ Dextrose 125 mls @ 10 mls/hr IV TITR [facility]; 10 MG/HR PRN Reason: Protocol Stop: 07/06/17 11:14 Last Titration: 05/11/17 18:00 Dose: 0 mg/hr, 0 mls/hr Tigecycline 50 mg/ Sodium (Chloride) 100 mls @ 100 mls/hr IV Q12HR [facility] Stop: 07/13/17 20:59 Last Admin: 05/21/17 09:00 Dose: 100 mls/hr Ceftazidime 1 gm/ Sodium (Chloride) 50 mls @ 0 mls/hr IV Q12HR [facility] PRN Reason: Per Protocol Stop: 07/16/17 20:59 Last Admin: 05/21/17 08:29 Dose: 100 mls/hr Levofloxacin (Levaquin Pb) 250 mg in 50 mls @ 50 mls/hr IV Q24HR [facility] Stop: 07/17/17 17:59 Last Infusion: 05/20/17 18:50 Dose: Infused Dextrose (D5w) 1,000 mls @ 50 mls/hr IV .Q20H [facility] Stop: 07/18/17 10:05 Last Admin: 05/20/17 16:00 Dose: 50 mls/hr Norepinephrine Bitartrate 4 mg (/ Dextrose) 254 mls @ 15.24 mls/hr IV TITR PRN ; Protocol; 4 MCG/MIN PRN Reason: BP MAINTENANCE (PER PROTOCOL) Stop: 07/18/17 10:59 Last Titration: 05/20/17 16:00 Dose: 0 mcg/min, 0 mls/hr Amikacin Sulfate 300 mg/ (Dextrose) 101.2 mls @ 100 mls/hr IV Q12H [facility] Stop: 07/20/17 13:59 Insulin Aspart (Novolog Insulin Sliding Scale) 0 units SUBQ Q6HR [facility] PRN Reason: Protocol Stop: 07/17/17 11:59 Last Admin: 05/21/17 05:57 Dose: 2 units Lactobacillus Rhamnosus (Culturelle) 1 each PO DAILY [facility] Stop: 07/16/17 08:59 Last Admin: 05/20/17 09:00 Dose: Not Given Lorazepam (Ativan) 1 mg IVP Q4HR PRN; Protocol PRN Reason: Agitation Stop: 07/13/17 02:57 Last Admin: 05/21/17 02:59 Dose: 1 mg Metoclopramide HCl (Reglan) 10 mg IVP Q8HR [facility] Stop: 07/06/17 20:59 Last Admin: 05/21/17 05:07 Dose: 10 mg Metoprolol Tartrate (Lopressor) 25 mg PO BID [facility] Stop: 06/26/17 08:59 Last Admin: 05/20/17 17:00 Dose: Not Given Mineral Oil (Mineral Oil 30 Ml) 30 ml NG DAILY [facility] Stop: 07/04/17 12:29 Last Admin: 05/20/17 09:00 Dose: Not Given Miscellaneous (Vte Chemical Prophylaxis Screen/ Admission) 1 ea PRN PRN PRN Reason: PROTOCOL Stop: 07/01/17 14:44 Miscellaneous (Amikacin Iv Per Pharmacy) 1 ea PRN PRN PRN Reason: PROTOCOL Stop: 07/13/17 18:39 Miscellaneous (Probiotic Screen) 1 ea PRN PRN PRN Reason: PROTOCOL Stop: 07/15/17 10:37 Miscellaneous (Tpn Per Pharmacy) 1 ea PRN PRN PRN Reason: PROTOCOL Stop: 07/17/17 15:12 Morphine Sulfate (Morphine) 2 mg IVP Q4H PRN PRN Reason: PAIN Stop: 07/11/17 16:49 Last Admin: 05/21/17 00:30 Dose: 2 mg Sulfacetamide Sodium (Sulamyd 10% Ophth Soln) 1 drop EACH EYE Q6HR [facility] Stop: 07/16/17 11:59 Last Admin: 05/21/17 05:43 Dose: 1 drop General: Other (sedated and intubated.) HEENT: Atraumatic, PERRLA, EOMI, Mucous membr. moist/pink, Other (oral endotracheal tube,NG tube+) Neck: Supple, +2 carotid pulse wo bruit Cardiovascular: Regular rate, Normal S1, Normal S2 Lungs: Other (diffuse rhonchi.) Abdomen: Soft, Other ( wound VAC anterior open abdominal wall wound. L colostomy retracted but still functional w/ stool output.) Extremities: Edema, Other (no edema and cyanosis.) Neurological: Reflexes 2+, Other (Patient is intubated and sedated) Psych/Mental Status: Other (Sedated) - Procedures Procedures: Procedures Procedure Code Date BYPASS SIGMOID COLON TO CUTANEOUS, OPEN APPROACH [id number] 04/14/17 INSERT EMERGENCY AIRWAY 37421 04/14/17 INSERTION OF ENDOTRACHEAL AIRWAY INTO TRACHEA, VIA OPENING [id number] 04/14/17 PARTIAL REMOVAL OF COLON 11216 04/14/17 RESECTION OF SIGMOID COLON, OPEN APPROACH [id number] 04/14/17 RESPIRATORY VENTILATION, 24-96 CONSECUTIVE HOURS [id number] 04/14/17 VENT MGMT INPAT INIT DAY 06210 04/14/17 VENT MGMT INPAT SUBQ DAY 53326 04/14/17 Assessment/Plan - Problem List Patient Problems: All Active Problems Abscess of sigmoid colon due to diverticulitis (Acute) K57.20 Diverticulitis of sigmoid colon (Acute) K57.32 Obesity (Acute) E66.9 Perforation of sigmoid colon due to diverticulitis (Acute) K57.20 Peritonitis (acute) generalized (Acute) K65.0 - Assessment Assessment: Current Active Problems Problem Status Onset Abscess of sigmoid colon due to diverticulitis Acute Diverticulitis of sigmoid colon Acute Obesity Acute Perforation of sigmoid colon due to diverticulitis Acute Peritonitis (acute) generalized Acute Perforated diverticulitis status post expiratory laparotomy and colostomy placement. Postoperative respiratory failure on vent. Obesity. Conjunctivitis. MDROs organisms positive culture. GI bleed stable. Suspect developing ARDS. Polymicrobial peritonitis due to perforation.. Asthma. SVT currently on Cardizem drip Electrolyte imbalance. SEKOU . Hypernatremia. Encephalopathy due to metabolic and infectious etio. Open surgical wound with wound VAC. Altered mental status secondary to metabolic and infectious encephalopathy. Postop anemia. - Plan Plan: ICU status. Vent support. Nebulizer treatment. Pulmonary toilet. IV antibiotics as per ID. TPN. Tracheostomy today. Sulfacetamide eye drops. Renal consult and follow-up. Corrected electrolytes. PEG once trach is done. Rate control with cardizem drip. Blood pressure control Wound care with wound VAC Surgical follow-up ID follow-up Cardiology follow-up Pulmonary follow-up ICU care. Symptoms management. Medication management. IV PPI. Monitor lab. Guarded prognosis. Chronic management of his medical illnesses. Care plan discussed with RN. Nutritional Asmnt/Malnutr-PDOC - Dietary Evaluation Malnutrition Findings (Please click <Entered> for more info): Nutritional Asmnt/Malnutrition Start: 04/19/17 14: 21 Text: Status: Complete Freq: Document 04/19/17 14:21 [id number] (Rec: 04/19/17 14:58 [id number]) Nutritional Asmnt/Malnutrition Patient General Information Nutritional Screening Moderate Risk Screening Diagnosis Sepsis, diverticulitis, peritonitis Pertinent Medical Hx/Surgical Hx Asthma, diverticulosis Subjective Information 56 year old male frome home. Pt was restless, moving extremities during visit. 04/14 : sigmoid colectomy, end colostomy, abscess drainage, diffuse peritontis. 04/16: pt started PPN. 04/17: central line and started on TPN. Spoke to family at bedside, explained parenteral nutrition , family undersoto and has no further question at this time. Weight discrepancies noted in EMR, family does not know UBW , estimated nutritional needs based Current Diet Order/ Nutrition Support TPN D10% AA4.25% at 90ml/hr with IL20% 150ml, providing 1401.6kcal Pertinent Medications Dilaudid, Novolog, Culturelle, Magnesium Sulfate, Vancomycin , TPN, Morphine, Multivitamins , Zofran, Protonix, Nacl0.9% Pertinent Labs 04/14: triglycerides 106, total bilirubin 1.1H, glucose 116H 04/17: magnesium 2.5, phsophorus 3.2 04/19: magnesium 1.8L, phosphorus 2.4L, BUN 28H, creatinine 1.3, glucose 154H, total bilirubin 1.1H, triglycerides 238H Nutritional Hx/Data Height 1.7 m Height (Calculated Centimeters) 170.2 Current Weight (lbs) 95.254 kg Weight (Calculated Kilograms) 95.3 Weight (Calculated Grams) 10701.4 [place] Body Weight 148 Weight Status Overweight GI Symptoms Skin Integrity/Comment: [place] 14. Facial non-pitting 1+, bilateral hands pitting 1+ Estimated Nutritional Goals Calories/Kcals/Kg IBW 148/67.3kg Kcals Calculated 2019-2356kcal (30-35kcal/kg) Protein Calculated 101-135g (1.5-2g/kg) Fluid: ml Per MD Nutritional Problem 1. Problem Problem Altered GI function related to Etiology abscess and perforation of sigmoid colon due to diverticulitis aeb Signs/Symptoms: post-operative, on TPN Intervention/Recommendation Comments 1. Recommend TPN D15% AA5.5% at 100ml/hr with IL20% 150ml, providing 2400ml total volume, 2052kcal, 132g protein, meeting 100% of estimated nutritional needs. Carb load 2 .6mg/kg/min (using 210lb adm weight). 2. Monitor for possible refeeding syndrome, 04/18: phsophorus 2.1L, 04/19: magnesium 1.9. 3. Monitor triglycerides, total bilirubin, glucose, renal labs. Expected Outcomes/Goals Expected Outcomes/Goals 1. Pt to meet 100% of estimated nutritional needs on TPN.
[2017-05-21] MEDS ORDERED: Midazolam 1mg/ml 2 ml vial IV ONE (11:02)
--- NOTE | 2017-05-21 11:44 | Operative Report ---
Operative Report - Surgery Date of Surgery:: 05/21/2017 Procedure:: tracheostomy #8 cuffed portex Indication for procedure:: resp failure, unweanable off vent Anesthesia:: Anesthesiologist: Anesthesia: general + local Preoperative diagnosis:: resp failure unweanable off vent Postoperative diagnosis:: same
[2017-05-21] MEDS: Dextrose 5% 1,000 ML IV SCH (12:00)
--- NOTE | 2017-05-21 12:16 | Operative Report ---
DATE OF SURGERY: 05/21/2017 TIME OF OPERATION: 11:45 a.m. PREOPERATIVE DIAGNOSIS: Respiratory failure, unweanable, off vent. POSTOPERATIVE DIAGNOSIS: Respiratory failure, unweanable, off vent. OPERATION PERFORMED: Tracheostomy tube placement, #8 cuffed Portex tube. SPECIMENS: None. ANESTHESIA: General and local. ANESTHESIOLOGIST: Dr. Pratt. ESTIMATED BLOOD LOSS: Minimal. SURGEON: All Trevino M.D. TONGER: None. PROSTHETIC DEVICES: Portex cuffed #8 tube. COMPLICATIONS: None. DESCRIPTION OF PROCEDURE: After confirming patient identification and procedure to be done, the patient was placed in supine position. The patient was administered general anesthesia. The neck was extended and prepped and draped in usual sterile fashion. Timeout performed. Local anesthesia was used to infiltrate the skin and subcutaneous tissue. Incision was made with a scalpel. The ____ suprasternal area was then retracted. The strap muscles were divided in the midline. The anterior surface of the trachea was cleaned. There were 2 large developed tracheal rings. I went in between them. There was a nice opening in the trachea at about the second and third tracheal ring. The cuff was then deflated. A tracheotomy opening was made. The sputum was suctioned out and the ET tube was withdrawn above the tracheotomy opening. The tracheostomy tube was then placed in through the tracheotomy opening. The cuff was inflated. The end-tidal CO2 was good, confirmed placement of the tube, O2 saturations were 100%. The tracheostomy tube was Velcro tied and secured around the neck with Velcro ties. The tracheostomy tube was suture anchored to the right and left side of the neck using 2-0 silk suture. The neck incision was packed with a 2 x 2 gauze superiorly and inferior to the trach tube. The patient was woken up from anesthesia and taken back to the ICU in stable condition. JOB# [id number]
--- NOTE | 2017-05-21 12:25 | Operative Report ---
Operative Report - Surgery Anesthesia:: Anesthesiologist: Anesthesia:
--- NOTE | 2017-05-21 12:42 | Operative Report ---
DATE OF SURGERY: 05/21/2017 TIME OF OPERATION: 12:16 p.m. PREOPERATIVE DIAGNOSIS: Old central line sepsis. POSTOPERATIVE DIAGNOSIS: Old central line sepsis. PROCEDURE: 1. Placement of new left internal jugular triple lumen catheter central line. 2. Ultrasound guidance for vascular access. 3. Attempted left subclavian catheter placement. SPECIMENS: None. ANESTHESIA: Local. ANESTHESIOLOGIST: None. ESTIMATED BLOOD LOSS: Minimal. SURGEON: All Trevino M.D. RESPIRATORY THERAPIST: None. PROSTHETIC DEVICES: Central line Arrow 7-Lao 16 cm length catheter. COMPLICATIONS: None. DESCRIPTION OF PROCEDURE: After confirming patient identification, procedure to be done, the patient placed in supine position. The patient had just come back from the OR and had anesthesia on board already. The left subclavian and left IJ neck site was then prepped and draped in usual sterile fashion. Timeout performed. The ultrasound was used to identify the left subclavian vein, with ultrasound guidance I attempted to cannulate the left subclavian vein. Multiple attempts were made and I was unable to cannulate the left subclavian vein. I then went to the left internal jugular site. I was able to cannulate the left internal jugular vein. A guidewire was placed in without difficulty. Tract was dilated, then the catheter was placed in over the guidewire using Seldinger technique. There was good venous draw back from all 3 ports. All 3 ports were flushed with normal saline. Catheter was suture anchored to skin. Dressings were applied. The patient tolerated the procedure well. Chest x-ray will be checked post-procedure. If the catheter was confirmed placement the nurses are instructed to take out the right IJ catheter. JOB# [id number] [email or web address]
--- NOTE | 2017-05-21 13:11 | Diagnostic Imaging Report ---
CHEST X-RAY: AP view INDICATION: Status post left IJ line placement COMPARISON: Chest x-ray 05/16/2017 FINDINGS: Left IJ line is seen with tip along the SVC/left brachiocephalic vein region. Right IJ line seen with tip in the SVC. No evidence of pneumothorax. Tracheostomy tube and NG tube are stable. No focal consolidation identified. Increased right basal lung markings are noted. Heart size is normal. IMPRESSION: Interval left IJ line placement with tip in the region of the SVC/left brachiocephalic vein junction. Remaining support devices are stable. No evidence of pneumothorax. Right basal increased lung markings which may be due to atelectasis versus less likely infiltrate.
[2017-05-21] MEDS: TPN 10%-70% CUSTOM IV SCH (15:54)
[2017-05-21] MEDS: Levofloxacin 250mg/50mL 250 MG/50 ML BAG IV SCH (17:56)
--- NOTE | 2017-05-21 23:20 | Progress Notes ---
DATE: 05/21/2017 PROBLEM LIST: 1. Persistent respiratory failure. 2. Chronic recurrent inflammatory changes on the lower abdomen for surgical. 3. Encephalopathy. 4. Suspect indication of possibly obstructive sleep apnea syndrome. SYMPTOMS: His ____ was done. Apparently, the patient had ____ instead of moving trach. No respiratory distress, ____. PHYSICAL EXAMINATION: VITAL SIGNS: Temperature is 97.1, blood pressure 102/61, saturation 100% on 30%. NECK: Veins not visualized. CHEST: Shows diminished air entry without any other adventitious breath sounds. HEART: Regular. ABDOMEN: Still lower abdomen tender. Electrolytes are okay except for slight elevation of sodium and potassium with BUN of 38. ASSESSMENT: The patient is clinically stable, post-trach respiratory failure. PLANS AND SUGGESTIONS: We will go ahead and continue current treatment. We will follow through chest x-ray, blood gases, etc and see how he does and go from there. JOB# [id number]
[2017-05-22] MEDS: INSULIN ASPART SLIDING SCALE 100 UNITS/ML UNIT SUBQ SCH ×5 (00:33→23:52)
[2017-05-22] MEDS: Albuterol/Ipratropium Neb 3 ML AERS HHN SCH ×6 (03:03→22:49)
[2017-05-22] MEDS: Metoclopramide 5 mg/mL 2mL Vial IVP SCH ×3 (05:23→20:37)
[2017-05-22] MEDS: Budesonide 0.5 Mg/2 mL Ud HHN SCH ×2 (07:11→19:23)
[2017-05-22 07:37] LABS: HEMOGLOBIN 8.7 gm/dL (13.2-17.3); MEAN CORPUSCULAR HGB CONC 33.3 pg (28.0-36.0); MEAN PLATELET VOLUME 9.9 fl; PLATELET COUNT 292 Th/cmm (150-400); RED BLOOD COUNT 3.21 Mil/cmm (4.30-5.70); RED CELL DISTRIBUTION WIDTH 17.6 % (11.5-20.0); WHITE BLOOD COUNT 8.2 Th/cmm (4.8-10.8)
[2017-05-22 07:43] LABS: ALB/GLOB RATIO 0.5 (1.0-1.8); ANION GAP 7.8 (7.0-16.0); BUN/CREATININE RATIO 45.9; CALCIUM SERUM 10.2 mg/dL (8.6-10.3); CARBON DIOXIDE 25.1 mEq/L (21.0-31.0); CREATININE - SERUM 1.7 mg/dL (0.7-1.3); MAGNESIUM 2.3 mg/dL (1.9-2.7); PHOSPHOROUS 3.1 mg/dL (2.5-5.0); POTASSIUM SERUM 3.9 mEq/L (3.5-5.1)
[2017-05-22] MEDS: Dextrose 5% 1,000 ML IV SCH (08:00)
[2017-05-22] MEDS: Chlorhexidine Gluconate 0.12% 15mL Mouthwash MM SCH ×2 (08:00→20:04)
[2017-05-22] MEDS: cefTAZidime 1 GM in Sodium Chloride 0.9% 50 ML IV SCH ×2 (08:30→20:39)
--- NOTE | 2017-05-22 08:30 | Diagnostic Imaging Report ---
Exam portable examination of the chest. HISTORY: Respiratory failure. Findings: Portable upright examination of the chest at 0808 hours was reviewed, no prior studies available comparison. Tracheostomy tube midline. The NG tube is passing the stomach. Left jugular catheter terminates in left innominate vein. There is no active pulmonic infiltrates or effusions. Bony thorax intact. IMPRESSION: 1. No acute disease, mild atelectasis at the bases.
[2017-05-22] MEDS: Lactobacillus Rhamnosus 10 Billion CFU Capsule PO SCH (08:52)
[2017-05-22 09:23] LABS: ANISOCYTOSIS 1+; EOSINOPHIL 27 % (0-5); NEUTROPHILS 41 % (40-80); PLATELET ESTIMATE ADEQUATE (NORMAL); PLATELET MORPHOLOGY NORMAL (NORMAL); TOTAL CELLS COUNTED 100
[2017-05-22 09:34] LABS: pH 7.53 (7.35-7.45)
[2017-05-22 09:35] LABS: ABG SOURCE Arterial; ALLEN TEST YES; HCO3 27.3 mEq/L (20.0-26.0); MECH RATE 16
[2017-05-22 09:36] LABS: CRITICAL VALUES REPORTED BY SH; FIO2 30; MECH VT 650
--- NOTE | 2017-05-22 10:15 | General Progress Note ---
Subjective - Review of Systems Service Date: 05/22/17 Subjective: encephalopathy, obtunded, nonverbal Objective - Results Result Diagrams: 05/22/17 05:40 05/22/17 05:40 Recent Labs: Laboratory Last Values WBC 8.2 Th/cmm (4.8-10.8) 05/22/17 05:40 RBC 3.21 Mil/cmm (4.30-5.70) L 05/22/17 05:40 Hgb 8.7 gm/dL (13.2-17.3) L 05/22/17 05:40 Hct 26.0 % (39.0-49.0) L D 05/22/17 05:40 MCV 81.0 fl (80-99) 05/22/17 05:40 MCH 27.0 pg (26.0-30.0) 05/22/17 05:40 MCHC Differential 33.3 pg (28.0-36.0) 05/22/17 05:40 RDW 17.6 % (11.5-20.0) 05/22/17 05:40 Plt Count 292 Th/cmm (150-400) 05/22/17 05:40 MPV 9.9 fl 05/22/17 05:40 Neutrophils % 61.3 % (40.0-80.0) 05/15/17 04:29 Band Neutrophils % 4 % (0-10) 05/20/17 04:30 Lymphocytes % 17.3 % (20.0-50.0) L 05/15/17 04:29 Monocytes % 8.6 % (2.0-10.0) 05/15/17 04:29 Eosinophils % 12.3 % (0.0-5.0) H 05/15/17 04:29 Basophils % 0.5 % (0.0-2.0) 05/15/17 04:29 Neutrophils (Manual) 41 % (40-80) 05/22/17 05:40 Lymphocytes 24 % (20-50) 05/22/17 05:40 Monocytes 8 % (2-10) 05/22/17 05:40 Eosinophils 27 % (0-5) H 05/22/17 05:40 Basophils 1 % (0-3) 05/19/17 05:15 Metamyelocytes 1 % (0-0) H 04/22/17 05:04 Atypical Lymphocytes 1 % 05/21/17 04:30 Platelet Estimate ADEQUATE (NORMAL) 05/22/17 05:40 Platelet Morphology NORMAL (NORMAL) 05/22/17 05:40 Anisocytosis 1+ 05/22/17 05:40 Microcytosis 1+ 05/02/17 05:15 RBC Morph Micro Appear ABNORMAL (NORMAL) 05/22/17 05:40 ESR > 140 mm/hr (0-20) H 04/20/17 07:00 Plt Count 276 Th/cmm (150-750) 05/19/17 07:37 PT 13.7 SECONDS (9.5-11.5) H 05/19/17 07:37 INR 1.30 (0.5-1.4) 05/19/17 07:37 PTT (Actin FS) 34.8 SECONDS (26.0-38.0) 05/19/17 07:37 Fibrinogen 222.0 mg/dL (200.0-400.0) 05/19/17 07:37 D-Dimer 3160 ng/mL (100-400) H 05/19/17 07:37 Specimen Source Arterial 05/22/17 09:00 Sample Site Left Radial 05/22/17 09:00 pH 7.53 (7.35-7.45) H 05/22/17 09:00 pCO2 30.0 mmHg (35.0-45.0) L 05/22/17 09:00 pO2 128.0 mmHg (80.0-100.0) H 05/22/17 09:00 HCO3 27.3 mEq/L (20.0-26.0) H 05/22/17 09:00 Base Excess 3.0 mEq/L (-3.0-3.0) 05/22/17 09:00 O2 Saturation 99.0 % (92.0-100.0) 05/22/17 09:00 Chau Test YES 05/22/17 09:00 Vent Rate 16 05/22/17 09:00 Inspired O2 30 05/22/17 09:00 Tidal Volume 650 05/22/17 09:00 PEEP 3 05/22/17 09:00 Pressure (ins/psv/peep) NA 05/22/17 09:00 Critical Value SH 05/22/17 09:00 Sodium 144 mEq/L (136-145) 05/22/17 05:40 Potassium 3.9 mEq/L (3.5-5.1) 05/22/17 05:40 Chloride 115 mEq/L (98-107) H 05/22/17 05:40 Carbon Dioxide 25.1 mEq/L (21.0-31.0) 05/22/17 05:40 Anion Gap 7.8 (7.0-16.0) 05/22/17 05:40 BUN 78 mg/dL (7-25) H 05/22/17 05:40 Creatinine 1.7 mg/dL (0.7-1.3) H 05/22/17 05:40 Est GFR ( Amer) 53.7 ml/min (>90) 05/22/17 05:40 Est GFR (Non-Af Amer) 44.4 ml/min 05/22/17 05:40 BUN/Creatinine Ratio 45.9 05/22/17 05:40 Glucose 201 mg/dL (70-105) H 05/22/17 05:40 POC Glucose 186 MG/DL (70 - 105) H 05/21/17 18:01 Hemoglobin A1c % 6.7 % (4.0-6.0) H 04/22/17 05:04 Whole Bld Lactic Acid 1.66 mmol/L (0.60-1.99) 05/12/17 04:40 Uric Acid 3.6 mg/dL (4.4-7.6) L 04/20/17 07:00 Calcium 10.2 mg/dL (8.6-10.3) 05/22/17 05:40 Phosphorus 3.1 mg/dL (2.5-5.0) 05/22/17 05:40 Magnesium 2.3 mg/dL (1.9-2.7) 05/22/17 05:40 Total Bilirubin 1.0 mg/dL (0.3-1.0) 05/22/17 05:40 Direct Bilirubin 0.35 mg/dL (0.0-0.2) H 05/18/17 04:50 AST 90 U/L (13-39) H 05/22/17 05:40 ALT 43 U/L (7-52) 05/22/17 05:40 Alkaline Phosphatase 230 U/L (34-104) H 05/22/17 05:40 Ammonia 42 umol/L (16-53) 05/18/17 04:50 Creatine Kinase 136 U/L (30-223) 04/14/17 14:55 Troponin I 0.01 ng/mL (0.01-0.05) 04/22/17 05:04 C-Reactive Protein 27.5 mg/dL (0.0-0.9) H 05/15/17 04:29 B-Natriuretic Peptide 20.7 pg/mL (5.0-100.0) 05/13/17 04:27 Total Protein 6.3 gm/dL (6.0-8.3) 05/22/17 05:40 Albumin 2.2 gm/dL (4.2-5.5) L 05/22/17 05:40 Globulin 4.1 gm/dL 05/22/17 05:40 Albumin/Globulin Ratio 0.5 (1.0-1.8) L 05/22/17 05:40 Prealbumin 7 mg/dL (10-36) L 05/15/17 04:29 Triglycerides 271 mg/dL (<150) H 05/20/17 04:30 Cholesterol 55 mg/dL (<200) 05/20/17 04:30 LDL Cholesterol Direct 38 mg/dL (75-193) L 04/14/17 14:55 HDL Cholesterol 13 mg/dL (23-92) L 04/14/17 14:55 Amylase 53 U/L (29-103) 05/09/17 06:00 Lipase 85 U/L (11-82) H 05/09/17 06:00 Vitamin D 25-Hydroxy 25.8 ng/mL (30.0-100.0) L 05/18/17 04:50 Procalcitonin SEE REF LAB REPORT 05/05/17 04:35 PTH Interpretation (()) 05/18/17 04:50 PTH Intact <6 pg/mL (15-65) L 05/18/17 04:50 Calcium (PTH Intact) 9.6 mg/dL (8.7-10.2) 05/18/17 04:50 Urine Source SEN PORT 05/18/17 16:30 Urine Color YELLOW 05/18/17 16:30 Urine Clarity CLOUDY (CLEAR) 05/18/17 16:30 Urine pH 5.5 (4.6 - 8.0) 05/18/17 16:30 Ur Specific Bernie 1.010 (1.005-1.030) 05/18/17 16:30 Urine Protein NEGATIVE mg/dL (NEGATIVE) 05/18/17 16:30 Urine Glucose (UA) NEGATIVE mg/dL (NEGATIVE) 05/18/17 16:30 Urine Ketones NEGATIVE mg/dL (NEGATIVE) 05/18/17 16:30 Urine Blood MODERATE (NEGATIVE) H 05/18/17 16:30 Urine Nitrate NEGATIVE (NEGATIVE) 05/18/17 16:30 Urine Bilirubin NEGATIVE (NEGATIVE) 05/18/17 16:30 Urine Urobilinogen 0.2 E.U./dL (0.2 - 1.0) 05/18/17 16:30 Ur Leukocyte Esterase TRACE (NEGATIVE) H 05/18/17 16:30 Urine RBC 10-25 /hpf (0-5) H 05/18/17 16:30 Urine WBC 6-10 /hpf (0-5) H 05/18/17 16:30 Ur Epithelial Cells FEW /lpf (FEW) 05/18/17 16:30 Amorphous Sediment MANY URATES (NONE SEEN) 04/14/17 15:05 Urine Bacteria NONE SEEN /hpf (NONE SEEN) 05/18/17 16:30 Hyaline Casts 5-10 /lpf (0-2) H 05/18/17 16:30 Urine Sperm MANY /hpf (NONE SEEN) 05/18/17 16:30 Amikacin Peak 23.4 ug/mL (20.0-30.0) 05/19/17 16:02 Amikacin Trough 8.6 ug/mL (1.0-8.0) H 05/19/17 13:30 Random Amikacin 6.7 ug/ml (1.0-30.0) 05/17/17 04:25 Vancomycin Trough 13.5 ug/mL (10-20) 04/19/17 19:20 Helicobacter pylori Ab NEGATIVE (NEGATIVE) 05/04/17 10:05 Blood Type O POSITIVE 05/02/17 07:12 Antibody Screen NEGATIVE 05/02/17 07:12 Crossmatch See Detail 05/02/17 07:12 - Physical Exam Vitals and I&O: Vital Signs Temp 99.7 F 05/22/17 08:00 Pulse 111 05/22/17 09:11 Resp 26 05/22/17 09:00 BP 112/66 05/22/17 09:00 Pulse Ox 100 05/22/17 09:11 Intake & Output 05/21/17 05/22/17 05/22/17 18:59 06:59 18:59 Intake Total 3691.2 2561.2 100 Output Total 1950 1450 Balance 1741.2 1111.2 100 Weight (lbs) 101.605 kg 100.244 kg Intake: Intake, IV Amount 3691.2 2561.2 100 Amikacin 300 mg In 101.2 101.2 Dextrose 5% 100 ml @ 100 mls/hr IV Q12H [facility] Rx#: [id number] Dextrose 5% 1,000 ml @ 50 1000 900 100 mls/hr IV .Q20H [facility] Rx#: [id number] Levofloxacin 250mg/50mL 50 250 mg In 50 ml @ 50 mls/ hr IV Q24HR [facility] Rx#: [id number] Multivitamin Inj 10 ml In 2390 1410 Dextrose 70% 1,740 ml In Amino Acids 10% 500 ml In Intralipids 20% 150 ml @ 100 mls/hr IV .Q24H [facility] Rx#:[id number] Tigecycline 50 mg In 100 100 Sodium Chloride 0.9% 100 ml @ 100 mls/hr IV Q12HR [facility] Rx#:[id number] cefTAZidime 1 gm In 50 50 Sodium Chloride 0.9% 50 ml @ Per Protocol IV Q12HR [facility] Rx#:[id number] Output: Gastric Drainage 50 50 Drainage 50 Medial Abdomen 50 Urine 1900 1350 Stool 0 0 Other: # Bowel Movements 0 0 Active Medications: Current Medications Acetaminophen (Tylenol 650mg/20.3ml Suspension) 650 mg NG Q6H PRN PRN Reason: FEVER/PAIN Stop: 06/21/17 17:45 Last Admin: 05/15/17 09:50 Dose: 650 mg Albuterol/Ipratropium (Duoneb Neb) 3 ml HHN Q4HRT [facility] Stop: 06/15/17 14:59 Last Admin: 05/22/17 07:11 Dose: 3 ml Amiodarone HCl (Cordarone) 200 mg NG BID [facility] Stop: 06/24/17 23:14 Last Admin: 05/22/17 08:52 Dose: 200 mg Budesonide (Pulmicort) 0.5 mg HHN BIDRT [facility] Stop: 06/15/17 18:59 Last Admin: 05/22/17 07:11 Dose: 0.5 mg Chlorhexidine Gluconate (Peridex) 15 ml MM [facility] Stop: 06/30/17 19:59 Last Admin: 05/22/17 08:00 Dose: 15 ml Enalaprilat (Vasotec) 2.5 mg IVP Q4HR PRN PRN Reason: SBP>150 Stop: 07/06/17 15:59 Famotidine (Pepcid) 20 mg IVP DAILY [facility] Stop: 07/18/17 08:59 Last Admin: 05/22/17 08:52 Dose: 20 mg Furosemide (Lasix) 40 mg IVP BID [facility] Stop: 07/12/17 16:59 Last Admin: 05/22/17 08:52 Dose: 40 mg Multivitamins/Minerals 10 ml/Dextrose/ Amino Acids/Electrolytes/ Fat Emulsion Intravenous 2,400 mls @ 100 mls/hr IV .Q24H [facility] Stop: 06/23/17 15:59 Last Infusion: 05/22/17 06:00 Dose: 100 mls/hr Diltiazem HCl 125 mg/ Dextrose 125 mls @ 10 mls/hr IV TITR [facility]; 10 MG/HR PRN Reason: Protocol Stop: 07/06/17 11:14 Last Titration: 05/11/17 18:00 Dose: 0 mg/hr, 0 mls/hr Tigecycline 50 mg/ Sodium (Chloride) 100 mls @ 100 mls/hr IV Q12HR [facility] Stop: 07/13/17 20:59 Last Admin: 05/22/17 09:00 Dose: 100 mls/hr Ceftazidime 1 gm/ Sodium (Chloride) 50 mls @ 0 mls/hr IV Q12HR [facility] PRN Reason: Per Protocol Stop: 07/16/17 20:59 Last Admin: 05/22/17 08:30 Dose: 100 mls/hr Levofloxacin (Levaquin Pb) 250 mg in 50 mls @ 50 mls/hr IV Q24HR [facility] Stop: 07/17/17 17:59 Last Infusion: 05/21/17 17:56 Dose: Infused Dextrose (D5w) 1,000 mls @ 50 mls/hr IV .Q20H [facility] Stop: 07/18/17 10:05 Last Admin: 05/22/17 08:00 Dose: 50 mls/hr Norepinephrine Bitartrate 4 mg (/ Dextrose) 254 mls @ 15.24 mls/hr IV TITR PRN ; Protocol; 4 MCG/MIN PRN Reason: BP MAINTENANCE (PER PROTOCOL) Stop: 07/18/17 10:59 Last Titration: 05/20/17 16:00 Dose: 0 mcg/min, 0 mls/hr Amikacin Sulfate 300 mg/ (Dextrose) 101.2 mls @ 100 mls/hr IV Q12H [facility] Stop: 07/20/17 13:59 Last Infusion: 05/22/17 03:31 Dose: Infused Insulin Aspart (Novolog Insulin Sliding Scale) 0 units SUBQ Q6HR [facility] PRN Reason: Protocol Stop: 07/17/17 11:59 Last Admin: 05/22/17 06:49 Dose: 2 units Lactobacillus Rhamnosus (Culturelle) 1 each PO DAILY [facility] Stop: 07/16/17 08:59 Last Admin: 05/22/17 08:52 Dose: 1 each Metoclopramide HCl (Reglan) 10 mg IVP Q8HR [facility] Stop: 07/06/17 20:59 Last Admin: 05/22/17 05:23 Dose: 10 mg Metoprolol Tartrate (Lopressor) 25 mg PO BID [facility] Stop: 06/26/17 08:59 Last Admin: 05/22/17 08:52 Dose: 25 mg Mineral Oil (Mineral Oil 30 Ml) 30 ml NG DAILY [facility] Stop: 07/04/17 12:29 Last Admin: 05/22/17 08:52 Dose: 30 ml Miscellaneous (Vte Chemical Prophylaxis Screen/ Admission) 1 ea MC PRN PRN PRN Reason: PROTOCOL Stop: 07/01/17 14:44 Miscellaneous (Amikacin Iv Per Pharmacy) 1 ea MC PRN PRN PRN Reason: PROTOCOL Stop: 07/13/17 18:39 Miscellaneous (Probiotic Screen) 1 ea MC PRN PRN PRN Reason: PROTOCOL Stop: 07/15/17 10:37 Miscellaneous (Tpn Per Pharmacy) 1 ea MC PRN PRN PRN Reason: PROTOCOL Stop: 07/17/17 15:12 Morphine Sulfate (Morphine) 2 mg IVP Q4H PRN PRN Reason: PAIN Stop: 07/11/17 16:49 Last Admin: 05/21/17 00:30 Dose: 2 mg Sulfacetamide Sodium (Sulamyd 10% Ophth Soln) 1 drop EACH EYE Q6HR [facility] Stop: 07/16/17 11:59 Last Admin: 05/22/17 06:51 Dose: 1 drop General: Other (sedated and intubated.) HEENT: Atraumatic, PERRLA, EOMI, Mucous membr. moist/pink, Other (oral endotracheal tube,NG tube+) Neck: Supple, +2 carotid pulse wo bruit Cardiovascular: Regular rate, Normal S1, Normal S2 Lungs: Other (diffuse rhonchi.) Abdomen: Soft, Other ( wound VAC anterior open abdominal wall wound. L colostomy retracted but still functional w/ stool output.) Extremities: Edema, Other (no edema and cyanosis.) Neurological: Reflexes 2+, Other (Patient is intubated and sedated) Psych/Mental Status: Other (Sedated) - Procedures Procedures: Procedures Procedure Code Date BYPASS SIGMOID COLON TO CUTANEOUS, OPEN APPROACH [id number] 04/14/17 BYPASS TRACHEA TO CUTANEOUS WITH TRACH DEV, OPEN APPROACH [id number] 04/14/17 INCISION OF WINDPIPE 21363 04/14/17 INSERT EMERGENCY AIRWAY 22322 04/14/17 INSERTION OF ENDOTRACHEAL AIRWAY INTO TRACHEA, VIA OPENING [id number] 04/14/17 INSERTION OF INFUSION DEV INTO SUP VENA CAVA, PERC APPROACH [id number] 04/14/17 PARTIAL REMOVAL OF COLON 47535 04/14/[address] PL[address] CATHETER IN VEIN 98372 04/14/17 RESECTION OF SIGMOID COLON, OPEN APPROACH [id number] 04/14/17 RESPIRATORY VENTILATION, 24-96 CONSECUTIVE HOURS [id number] 04/14/17 VENT MGMT INPAT INIT DAY 59937 04/14/17 VENT MGMT INPAT SUBQ DAY 94036 04/14/17 Assessment/Plan - Problem List Patient Problems: All Active Problems Abscess of sigmoid colon due to diverticulitis (Acute) K57.20 Diverticulitis of sigmoid colon (Acute) K57.32 Obesity (Acute) E66.9 Perforation of sigmoid colon due to diverticulitis (Acute) K57.20 Peritonitis (acute) generalized (Acute) K65.0 - Assessment Assessment: s/p ex lap, sigmoid colectomy, drainage of peritonitis, lysis adhesions, ROLANDO drain placement 04/14 icu status encephalopathic, confused, obtunded, intubated. continue IVfluids +TPN renal insufficiency, elevated BUN/creat dvt prophylaxis Lovenox SQ colostomy end necrosed and sloughed, severely retracted, but functional w/ stool output..... poor candidate for revision of colostomy open abd wound, wound vac in place, changed q 3days, wound marge, still some yellow slough. continue iv abx. sen cath supportive care.... s/w family; guarded prognosis. EGD 05/04 results noted by Reyes/GI peptic ulcer disease, NGT trauma multiple prior CT abd/pelvis....postop changes, no obvious drainable intra-abd abscess or collections tachycardia, normal WBC electrolyte derangement, renal f/u, fluid management. may need HD ok to give PO meds via NGT TF via NGT held, residuals high, NGT to suction moderate output GI is following s/p trach 05/21 and changed central line LIJ; recommend EGD + PEG CT abd/pelvis results noted, no obvious drainable abscess or collection, no free air. continue wound vac to open abd wound. Nutritional Asmnt/Malnutr-PDOC - Dietary Evaluation Malnutrition Findings (Please click <Entered> for more info): Nutritional Asmnt/Malnutrition Start: 04/19/17 14: 21 Text: Status: Complete Freq: Document 04/19/17 14:21 GSUN (Rec: 04/19/17 14:58 [id number]) Nutritional Asmnt/Malnutrition Patient General Information Nutritional Screening Moderate Risk Screening Diagnosis Sepsis, diverticulitis, peritonitis Pertinent Medical Hx/Surgical Hx Asthma, diverticulosis Subjective Information 56 year old male frome home. Pt was restless, moving extremities during visit. 04/14 : sigmoid colectomy, end colostomy, abscess drainage, diffuse peritontis. 04/16: pt started PPN. 04/17: central line and started on TPN. Spoke to family at bedside, explained parenteral nutrition , family undersoto and has no further question at this time. Weight discrepancies noted in EMR, family does not know UBW , estimated nutritional needs based Current Diet Order/ Nutrition Support TPN D10% AA4.25% at 90ml/hr with IL20% 150ml, providing 1401.6kcal Pertinent Medications Dilaudid, Novolog, Culturelle, Magnesium Sulfate, Vancomycin , TPN, Morphine, Multivitamins , Zofran, Protonix, Nacl0.9% Pertinent Labs 04/14: triglycerides 106, total bilirubin 1.1H, glucose 116H 04/17: magnesium 2.5, phsophorus 3.2 04/19: magnesium 1.8L, phosphorus 2.4L, BUN 28H, creatinine 1.3, glucose 154H, total bilirubin 1.1H, triglycerides 238H Nutritional Hx/Data Height 1.7 m Height (Calculated Centimeters) 170.2 Current Weight (lbs) 95.254 kg Weight (Calculated Kilograms) 95.3 Weight (Calculated Grams) 31400.4 [place] Body Weight 148 Weight Status Overweight GI Symptoms Skin Integrity/Comment: [place] 14. Facial non-pitting 1+, bilateral hands pitting 1+ Estimated Nutritional Goals Calories/Kcals/Kg IBW 148/67.3kg Kcals Calculated 2019-2356kcal (30-35kcal/kg) Protein Calculated 101-135g (1.5-2g/kg) Fluid: ml Per MD Nutritional Problem 1. Problem Problem Altered GI function related to Etiology abscess and perforation of sigmoid colon due to diverticulitis aeb Signs/Symptoms: post-operative, on TPN Intervention/Recommendation Comments 1. Recommend TPN D15% AA5.5% at 100ml/hr with IL20% 150ml, providing 2400ml total volume, 2052kcal, 132g protein, meeting 100% of estimated nutritional needs. Carb load 2 .6mg/kg/min (using 210lb adm weight). 2. Monitor for possible refeeding syndrome, 04/18: phsophorus 2.1L, 04/19: magnesium 1.9. 3. Monitor triglycerides, total bilirubin, glucose, renal labs. Expected Outcomes/Goals Expected Outcomes/Goals 1. Pt to meet 100% of estimated nutritional needs on TPN.
--- NOTE | 2017-05-22 11:44 | General Progress Note ---
Subjective - Review of Systems Subjective: Patient is seen and examined. Patient currently on vent. Patient is more alert and awake trying to follow commands. Status post tracheostomy postoperative day 1. Chart reviewed. Objective - Results Result Diagrams: 05/22/17 05:40 05/22/17 05:40 Recent Labs: Laboratory Last Values WBC 8.2 Th/cmm (4.8-10.8) 05/22/17 05:40 RBC 3.21 Mil/cmm (4.30-5.70) L 05/22/17 05:40 Hgb 8.7 gm/dL (13.2-17.3) L 05/22/17 05:40 Hct 26.0 % (39.0-49.0) L D 05/22/17 05:40 MCV 81.0 fl (80-99) 05/22/17 05:40 MCH 27.0 pg (26.0-30.0) 05/22/17 05:40 MCHC Differential 33.3 pg (28.0-36.0) 05/22/17 05:40 RDW 17.6 % (11.5-20.0) 05/22/17 05:40 Plt Count 292 Th/cmm (150-400) 05/22/17 05:40 MPV 9.9 fl 05/22/17 05:40 Neutrophils % 61.3 % (40.0-80.0) 05/15/17 04:29 Band Neutrophils % 4 % (0-10) 05/20/17 04:30 Lymphocytes % 17.3 % (20.0-50.0) L 05/15/17 04:29 Monocytes % 8.6 % (2.0-10.0) 05/15/17 04:29 Eosinophils % 12.3 % (0.0-5.0) H 05/15/17 04:29 Basophils % 0.5 % (0.0-2.0) 05/15/17 04:29 Neutrophils (Manual) 41 % (40-80) 05/22/17 05:40 Lymphocytes 24 % (20-50) 05/22/17 05:40 Monocytes 8 % (2-10) 05/22/17 05:40 Eosinophils 27 % (0-5) H 05/22/17 05:40 Basophils 1 % (0-3) 05/19/17 05:15 Metamyelocytes 1 % (0-0) H 04/22/17 05:04 Atypical Lymphocytes 1 % 05/21/17 04:30 Platelet Estimate ADEQUATE (NORMAL) 05/22/17 05:40 Platelet Morphology NORMAL (NORMAL) 05/22/17 05:40 Anisocytosis 1+ 05/22/17 05:40 Microcytosis 1+ 05/02/17 05:15 RBC Morph Micro Appear ABNORMAL (NORMAL) 05/22/17 05:40 ESR > 140 mm/hr (0-20) H 04/20/17 07:00 Plt Count 276 Th/cmm (150-750) 05/19/17 07:37 PT 13.7 SECONDS (9.5-11.5) H 05/19/17 07:37 INR 1.30 (0.5-1.4) 05/19/17 07:37 PTT (Actin FS) 34.8 SECONDS (26.0-38.0) 05/19/17 07:37 Fibrinogen 222.0 mg/dL (200.0-400.0) 05/19/17 07:37 D-Dimer 3160 ng/mL (100-400) H 05/19/17 07:37 Specimen Source Arterial 05/22/17 09:00 Sample Site Left Radial 05/22/17 09:00 pH 7.53 (7.35-7.45) H 05/22/17 09:00 pCO2 30.0 mmHg (35.0-45.0) L 05/22/17 09:00 pO2 128.0 mmHg (80.0-100.0) H 05/22/17 09:00 HCO3 27.3 mEq/L (20.0-26.0) H 05/22/17 09:00 Base Excess 3.0 mEq/L (-3.0-3.0) 05/22/17 09:00 O2 Saturation 99.0 % (92.0-100.0) 05/22/17 09:00 Chau Test YES 05/22/17 09:00 Vent Rate 16 05/22/17 09:00 Inspired O2 30 05/22/17 09:00 Tidal Volume 650 05/22/17 09:00 PEEP 3 05/22/17 09:00 Pressure (ins/psv/peep) NA 05/22/17 09:00 Critical Value SH 05/22/17 09:00 Sodium 144 mEq/L (136-145) 05/22/17 05:40 Potassium 3.9 mEq/L (3.5-5.1) 05/22/17 05:40 Chloride 115 mEq/L (98-107) H 05/22/17 05:40 Carbon Dioxide 25.1 mEq/L (21.0-31.0) 05/22/17 05:40 Anion Gap 7.8 (7.0-16.0) 05/22/17 05:40 BUN 78 mg/dL (7-25) H 05/22/17 05:40 Creatinine 1.7 mg/dL (0.7-1.3) H 05/22/17 05:40 Est GFR ( Amer) 53.7 ml/min (>90) 05/22/17 05:40 Est GFR (Non-Af Amer) 44.4 ml/min 05/22/17 05:40 BUN/Creatinine Ratio 45.9 05/22/17 05:40 Glucose 201 mg/dL (70-105) H 05/22/17 05:40 POC Glucose 186 MG/DL (70 - 105) H 05/21/17 18:01 Hemoglobin A1c % 6.7 % (4.0-6.0) H 04/22/17 05:04 Whole Bld Lactic Acid 1.66 mmol/L (0.60-1.99) 05/12/17 04:40 Uric Acid 3.6 mg/dL (4.4-7.6) L 04/20/17 07:00 Calcium 10.2 mg/dL (8.6-10.3) 05/22/17 05:40 Phosphorus 3.1 mg/dL (2.5-5.0) 05/22/17 05:40 Magnesium 2.3 mg/dL (1.9-2.7) 05/22/17 05:40 Total Bilirubin 1.0 mg/dL (0.3-1.0) 05/22/17 05:40 Direct Bilirubin 0.35 mg/dL (0.0-0.2) H 05/18/17 04:50 AST 90 U/L (13-39) H 05/22/17 05:40 ALT 43 U/L (7-52) 05/22/17 05:40 Alkaline Phosphatase 230 U/L (34-104) H 05/22/17 05:40 Ammonia 42 umol/L (16-53) 05/18/17 04:50 Creatine Kinase 136 U/L (30-223) 04/14/17 14:55 Troponin I 0.01 ng/mL (0.01-0.05) 04/22/17 05:04 C-Reactive Protein 27.5 mg/dL (0.0-0.9) H 05/15/17 04:29 B-Natriuretic Peptide 20.7 pg/mL (5.0-100.0) 05/13/17 04:27 Total Protein 6.3 gm/dL (6.0-8.3) 05/22/17 05:40 Albumin 2.2 gm/dL (4.2-5.5) L 05/22/17 05:40 Globulin 4.1 gm/dL 05/22/17 05:40 Albumin/Globulin Ratio 0.5 (1.0-1.8) L 05/22/17 05:40 Prealbumin 7 mg/dL (10-36) L 05/15/17 04:29 Triglycerides 271 mg/dL (<150) H 05/20/17 04:30 Cholesterol 55 mg/dL (<200) 05/20/17 04:30 LDL Cholesterol Direct 38 mg/dL (75-193) L 04/14/17 14:55 HDL Cholesterol 13 mg/dL (23-92) L 04/14/17 14:55 Amylase 53 U/L (29-103) 05/09/17 06:00 Lipase 85 U/L (11-82) H 05/09/17 06:00 Vitamin D 25-Hydroxy 25.8 ng/mL (30.0-100.0) L 05/18/17 04:50 Procalcitonin SEE REF LAB REPORT 05/05/17 04:35 PTH Interpretation (()) 05/18/17 04:50 PTH Intact <6 pg/mL (15-65) L 05/18/17 04:50 Calcium (PTH Intact) 9.6 mg/dL (8.7-10.2) 05/18/17 04:50 Urine Source [place] 05/18/17 16:30 Urine Color YELLOW 05/18/17 16:30 Urine Clarity CLOUDY (CLEAR) 05/18/17 16:30 Urine pH 5.5 (4.6 - 8.0) 05/18/17 16:30 Ur Specific [place] 1.010 (1.005-1.030) 05/18/17 16:30 Urine Protein NEGATIVE mg/dL (NEGATIVE) 05/18/17 16:30 Urine Glucose (UA) NEGATIVE mg/dL (NEGATIVE) 05/18/17 16:30 Urine Ketones NEGATIVE mg/dL (NEGATIVE) 05/18/17 16:30 Urine Blood MODERATE (NEGATIVE) H 05/18/17 16:30 Urine Nitrate NEGATIVE (NEGATIVE) 05/18/17 16:30 Urine Bilirubin NEGATIVE (NEGATIVE) 05/18/17 16:30 Urine Urobilinogen 0.2 E.U./dL (0.2 - 1.0) 05/18/17 16:30 Ur Leukocyte Esterase TRACE (NEGATIVE) H 05/18/17 16:30 Urine RBC 10-25 /hpf (0-5) H 05/18/17 16:30 Urine WBC 6-10 /hpf (0-5) H 05/18/17 16:30 Ur Epithelial Cells FEW /lpf (FEW) 05/18/17 16:30 Amorphous Sediment MANY URATES (NONE SEEN) 04/14/17 15:05 Urine Bacteria NONE SEEN /hpf (NONE SEEN) 05/18/17 16:30 Hyaline Casts 5-10 /lpf (0-2) H 05/18/17 16:30 Urine Sperm MANY /hpf (NONE SEEN) 05/18/17 16:30 Amikacin Peak 23.4 ug/mL (20.0-30.0) 05/19/17 16:02 Amikacin Trough 8.6 ug/mL (1.0-8.0) H 05/19/17 13:30 Random Amikacin 6.7 ug/ml (1.0-30.0) 05/17/17 04:25 Vancomycin Trough 13.5 ug/mL (10-20) 04/19/17 19:20 Helicobacter pylori Ab NEGATIVE (NEGATIVE) 05/04/17 10:05 Blood Type O POSITIVE 05/02/17 07:12 Antibody Screen NEGATIVE 05/02/17 07:12 Crossmatch See Detail 05/02/17 07:12 - Physical Exam Vitals and I&O: Vital Signs Temp 99.7 F 05/22/17 08:00 Pulse 102 05/22/17 11:09 Resp 19 05/22/17 10:00 BP 101/66 05/22/17 10:00 Pulse Ox 100 05/22/17 11:09 Intake & Output 05/21/17 05/22/17 05/22/17 18:59 06:59 18:59 Intake Total 3691.2 2561.2 250 Output Total 1950 1450 Balance 1741.2 1111.2 250 Weight (lbs) 101.605 kg 100.244 kg Intake: Intake, IV Amount 3691.2 2561.2 250 Amikacin 300 mg In 101.2 101.2 Dextrose 5% 100 ml @ 100 mls/hr IV Q12H [facility] Rx#: [id number] Dextrose 5% 1,000 ml @ 50 1000 900 100 mls/hr IV .Q20H [facility] Rx#: [id number] Levofloxacin 250mg/50mL 50 250 mg In 50 ml @ 50 mls/ hr IV Q24HR [facility] Rx#: [id number] Multivitamin Inj 10 ml In 2390 1410 Dextrose 70% 1,740 ml In Amino Acids 10% 500 ml In Intralipids 20% 150 ml @ 100 mls/hr IV .Q24H [facility] Rx#:[id number] Tigecycline 50 mg In 100 100 100 Sodium Chloride 0.9% 100 ml @ 100 mls/hr IV Q12HR [facility] Rx#:[id number] cefTAZidime 1 gm In 50 50 50 Sodium Chloride 0.9% 50 ml @ Per Protocol IV Q12HR [facility] Rx#:[id number] Output: Gastric Drainage 50 50 Drainage 50 Medial Abdomen 50 Urine 1900 1350 Stool 0 0 Other: # Bowel Movements 0 0 Active Medications: Current Medications Acetaminophen (Tylenol 650mg/20.3ml Suspension) 650 mg NG Q6H PRN PRN Reason: FEVER/PAIN Stop: 06/21/17 17:45 Last Admin: 05/15/17 09:50 Dose: 650 mg Albuterol/Ipratropium (Duoneb Neb) 3 ml HHN Q4HRT [facility] Stop: 06/15/17 14:59 Last Admin: 05/22/17 11:06 Dose: 3 ml Amiodarone HCl (Cordarone) 200 mg NG BID [facility] Stop: 06/24/17 23:14 Last Admin: 05/22/17 08:52 Dose: 200 mg Budesonide (Pulmicort) 0.5 mg HHN BIDRT [facility] Stop: 06/15/17 18:59 Last Admin: 05/22/17 07:11 Dose: 0.5 mg Chlorhexidine Gluconate (Peridex) 15 ml MM 08,1999 [facility] Stop: 06/30/17 19:59 Last Admin: 05/22/17 08:00 Dose: 15 ml Enalaprilat (Vasotec) 2.5 mg IVP Q4HR PRN PRN Reason: SBP>150 Stop: 07/06/17 15:59 Famotidine (Pepcid) 20 mg IVP DAILY [facility] Stop: 07/18/17 08:59 Last Admin: 05/22/17 08:52 Dose: 20 mg Furosemide (Lasix) 40 mg IVP BID [facility] Stop: 07/12/17 16:59 Last Admin: 05/22/17 08:52 Dose: 40 mg Multivitamins/Minerals 10 ml/Dextrose/ Amino Acids/Electrolytes/ Fat Emulsion Intravenous 2,400 mls @ 100 mls/hr IV .Q24H [facility] Stop: 06/23/17 15:59 Last Infusion: 05/22/17 06:00 Dose: 100 mls/hr Diltiazem HCl 125 mg/ Dextrose 125 mls @ 10 mls/hr IV TITR [facility]; 10 MG/HR PRN Reason: Protocol Stop: 07/06/17 11:14 Last Titration: 05/11/17 18:00 Dose: 0 mg/hr, 0 mls/hr Tigecycline 50 mg/ Sodium (Chloride) 100 mls @ 100 mls/hr IV Q12HR [facility] Stop: 07/13/17 20:59 Last Infusion: 05/22/17 10:00 Dose: Infused Ceftazidime 1 gm/ Sodium (Chloride) 50 mls @ 0 mls/hr IV Q12HR [facility] PRN Reason: Per Protocol Stop: 07/16/17 20:59 Last Infusion: 05/22/17 09:00 Dose: Infused Levofloxacin (Levaquin Pb) 250 mg in 50 mls @ 50 mls/hr IV Q24HR [facility] Stop: 07/17/17 17:59 Last Infusion: 05/21/17 17:56 Dose: Infused Dextrose (D5w) 1,000 mls @ 50 mls/hr IV .Q20H [facility] Stop: 07/18/17 10:05 Last Admin: 05/22/17 08:00 Dose: 50 mls/hr Norepinephrine Bitartrate 4 mg (/ Dextrose) 254 mls @ 15.24 mls/hr IV TITR PRN ; Protocol; 4 MCG/MIN PRN Reason: BP MAINTENANCE (PER PROTOCOL) Stop: 07/18/17 10:59 Last Titration: 05/20/17 16:00 Dose: 0 mcg/min, 0 mls/hr Amikacin Sulfate 300 mg/ (Dextrose) 101.2 mls @ 100 mls/hr IV Q12H [facility] Stop: 07/20/17 13:59 Last Infusion: 05/22/17 03:31 Dose: Infused Insulin Aspart (Novolog Insulin Sliding Scale) 0 units SUBQ Q6HR [facility] PRN Reason: Protocol Stop: 07/17/17 11:59 Last Admin: 05/22/17 06:49 Dose: 2 units Lactobacillus Rhamnosus (Culturelle) 1 each PO DAILY [facility] Stop: 07/16/17 08:59 Last Admin: 05/22/17 08:52 Dose: 1 each Metoclopramide HCl (Reglan) 10 mg IVP Q8HR [facility] Stop: 07/06/17 20:59 Last Admin: 05/22/17 05:23 Dose: 10 mg Metoprolol Tartrate (Lopressor) 25 mg PO BID [facility] Stop: 06/26/17 08:59 Last Admin: 05/22/17 08:52 Dose: 25 mg Mineral Oil (Mineral Oil 30 Ml) 30 ml NG DAILY [facility] Stop: 07/04/17 12:29 Last Admin: 05/22/17 08:52 Dose: 30 ml Miscellaneous (Vte Chemical Prophylaxis Screen/ Admission) 1 ea MC PRN PRN PRN Reason: PROTOCOL Stop: 07/01/17 14:44 Miscellaneous (Amikacin Iv Per Pharmacy) 1 ea MC PRN PRN PRN Reason: PROTOCOL Stop: 07/13/17 18:39 Miscellaneous (Probiotic Screen) 1 ea MC PRN PRN PRN Reason: PROTOCOL Stop: 07/15/17 10:37 Miscellaneous (Tpn Per Pharmacy) 1 ea MC PRN PRN PRN Reason: PROTOCOL Stop: 07/17/17 15:12 Morphine Sulfate (Morphine) 2 mg IVP Q4H PRN PRN Reason: PAIN Stop: 07/11/17 16:49 Last Admin: 05/21/17 00:30 Dose: 2 mg Sulfacetamide Sodium (Sulamyd 10% Ophth Soln) 1 drop EACH EYE Q6HR [facility] Stop: 07/16/17 11:59 Last Admin: 05/22/17 06:51 Dose: 1 drop General: Other (sedated and intubated.) HEENT: Atraumatic, PERRLA, EOMI, Mucous membr. moist/pink, Other (NG tube+) Neck: Supple, +2 carotid pulse wo bruit, Other (tracheostomy noted.) Cardiovascular: Regular rate, Normal S1, Normal S2 Lungs: Other (diffuse rhonchi.) Abdomen: Soft, Other ( wound VAC anterior open abdominal wall wound. L colostomy no out put.) Extremities: Edema, Other (no edema and cyanosis.) Neurological: Reflexes 2+, Other (Patient is trying to follow commands.) Psych/Mental Status: Other (Sedated) - Procedures Procedures: Procedures Procedure Code Date BYPASS SIGMOID COLON TO CUTANEOUS, OPEN APPROACH [id number] 04/14/17 BYPASS TRACHEA TO CUTANEOUS WITH TRACH DEV, OPEN APPROACH [id number] 04/14/17 INCISION OF WINDPIPE 00402 04/14/17 INSERT EMERGENCY AIRWAY 47474 04/14/17 INSERTION OF ENDOTRACHEAL AIRWAY INTO TRACHEA, VIA OPENING [id number] 04/14/17 INSERTION OF INFUSION DEV INTO SUP VENA CAVA, PERC APPROACH [id number] 04/14/17 PARTIAL REMOVAL OF COLON 50744 04/14/[address] PL[address] CATHETER IN VEIN 85431 04/14/17 RESECTION OF SIGMOID COLON, OPEN APPROACH [id number] 04/14/17 RESPIRATORY VENTILATION, 24-96 CONSECUTIVE HOURS [id number] 04/14/17 VENT MGMT INPAT INIT DAY 36559 04/14/17 VENT MGMT INPAT SUBQ DAY 37074 04/14/17 Assessment/Plan - Problem List Patient Problems: All Active Problems Abscess of sigmoid colon due to diverticulitis (Acute) K57.20 Diverticulitis of sigmoid colon (Acute) K57.32 Obesity (Acute) E66.9 Perforation of sigmoid colon due to diverticulitis (Acute) K57.20 Peritonitis (acute) generalized (Acute) K65.0 - Assessment Assessment: Current Active Problems Problem Status Onset Abscess of sigmoid colon due to diverticulitis Acute Diverticulitis of sigmoid colon Acute Obesity Acute Perforation of sigmoid colon due to diverticulitis Acute Peritonitis (acute) generalized Acute Perforated diverticulitis status post expiratory laparotomy and colostomy placement. Postoperative respiratory failure on vent status post tracheostomy. Obesity. Conjunctivitis. MDROs organisms positive culture. ARDS. Polymicrobial peritonitis due to perforation.. Asthma. SVT currently on Cardizem drip Electrolyte imbalance. SEKOU . Hypernatremia. Encephalopathy due to metabolic and infectious Open surgical wound with wound VAC. Altered mental status secondary to metabolic and infectious encephalopathy. Postop anemia. - Plan Plan: ICU status. Vent support. Nebulizer treatment. Pulmonary toilet. Patient will require long-term acute care, we'll how was discharged [facility] local [facility] contracted facility. IV antibiotics as per ID. TPN. Sulfacetamide eye drops. Renal consult and follow-up. Corrected electrolytes. PEG next week. Rate control with cardizem drip. Blood pressure control Wound care with wound VAC Surgical follow-up ID follow-up. Hold other blood pressure medications. Cardiology follow-up Pulmonary follow-up ICU care. Symptoms management. Medication management. IV PPI. Monitor lab. Guarded prognosis. Chronic management of his medical illnesses. Care plan discussed with RN. Nutritional Asmnt/Malnutr-PDOC - Dietary Evaluation Malnutrition Findings (Please click <Entered> for more info): Nutritional Asmnt/Malnutrition Start: 04/19/17 14: 21 Text: Status: Complete Freq: Document 04/19/17 14:21 GSUN (Rec: 04/19/17 14:58 [id number]) Nutritional Asmnt/Malnutrition Patient General Information Nutritional Screening Moderate Risk Screening Diagnosis Sepsis, diverticulitis, peritonitis Pertinent Medical Hx/Surgical Hx Asthma, diverticulosis Subjective Information 56 year old male frome home. Pt was restless, moving extremities during visit. 04/14 : sigmoid colectomy, end colostomy, abscess drainage, diffuse peritontis. 04/16: pt started PPN. 04/17: central line and started on TPN. Spoke to family at bedside, explained parenteral nutrition , family undersoto and has no further question at this time. Weight discrepancies noted in EMR, family does not know UBW , estimated nutritional needs based Current Diet Order/ Nutrition Support TPN D10% AA4.25% at 90ml/hr with IL20% 150ml, providing 1401.6kcal Pertinent Medications Dilaudid, Novolog, Culturelle, Magnesium Sulfate, Vancomycin , TPN, Morphine, Multivitamins , Zofran, Protonix, Nacl0.9% Pertinent Labs 04/14: triglycerides 106, total bilirubin 1.1H, glucose 116H 04/17: magnesium 2.5, phsophorus 3.2 04/19: magnesium 1.8L, phosphorus 2.4L, BUN 28H, creatinine 1.3, glucose 154H, total bilirubin 1.1H, triglycerides 238H Nutritional Hx/Data Height 1.7 m Height (Calculated Centimeters) 170.2 Current Weight (lbs) 95.254 kg Weight (Calculated Kilograms) 95.3 Weight (Calculated Grams) 00301.4 [place] Body Weight 148 Weight Status Overweight GI Symptoms Skin Integrity/Comment: [place] 14. Facial non-pitting 1+, bilateral hands pitting 1+ Estimated Nutritional Goals Calories/Kcals/Kg IBW 148/67.3kg Kcals Calculated 2019-2356kcal (30-35kcal/kg) Protein Calculated 101-135g (1.5-2g/kg) Fluid: ml Per MD Nutritional Problem 1. Problem Problem Altered GI function related to Etiology abscess and perforation of sigmoid colon due to diverticulitis aeb Signs/Symptoms: post-operative, on TPN Intervention/Recommendation Comments 1. Recommend TPN D15% AA5.5% at 100ml/hr with IL20% 150ml, providing 2400ml total volume, 2052kcal, 132g protein, meeting 100% of estimated nutritional needs. Carb load 2 .6mg/kg/min (using 210lb adm weight). 2. Monitor for possible refeeding syndrome, 04/18: phsophorus 2.1L, 04/19: magnesium 1.9. 3. Monitor triglycerides, total bilirubin, glucose, renal labs. Expected Outcomes/Goals Expected Outcomes/Goals 1. Pt to meet 100% of estimated nutritional needs on TPN.
[2017-05-22] MEDS: TPN 10%-70% CUSTOM IV SCH (16:00)
[2017-05-22] MEDS: Levofloxacin 250mg/50mL 250 MG/50 ML BAG IV SCH (17:52)
[2017-05-22] MEDS: Morphine Sulfate 4 mg/mL 1mL Syr IVP PRN (20:03)
--- NOTE | 2017-05-22 20:38 | Progress Notes ---
DATE: 05/22/2017 PROBLEM LIST: 1. Persistent respiratory failure. 2. Persistent abdominal sepsis. SYMPTOMS: Nil. The patient is lethargic, barely arousable. No meaningful communication could be done. PHYSICAL EXAMINATION: VITAL SIGNS: The patient is afebrile, BP is 193/60, saturation is 100% on 30%, and heart rate is in high 90s to low 100s. NECK: Trach site is deep. CHEST: Diminished air entry. No other adventitious breath sounds. HEART: Regular. ABDOMEN: Still guarding, tender. EXTREMITIES: Shows no peripheral edema. LABORATORY DATA: ABG shows pO2 of 128 with mixed alkalosis. ASSESSMENT: The patient is clinically status quo, slightly improving renal function. PLANS AND SUGGESTIONS: Continue supportive care. I believe that the main problem is abdomen with significant encephalopathy with multisystem issues. We will continue supportive care. No active plan. Chest x-ray is clear. ABG is okay. Discussed with patient's family, a couple of children and a daughter at the bedside. JOB# [id number]
[2017-05-23] MEDS: Morphine Sulfate 4 mg/mL 1mL Syr IVP PRN ×3 (02:20→18:30)
[2017-05-23] MEDS: Albuterol/Ipratropium Neb 3 ML AERS HHN SCH ×6 (03:22→22:57)
[2017-05-23] MEDS: Dextrose 5% 1,000 ML IV SCH ×2 (05:13→15:45)
[2017-05-23] MEDS: Metoclopramide 5 mg/mL 2mL Vial IVP SCH ×3 (05:16→20:45)
[2017-05-23 05:37] LABS: HEMATOCRIT 28.9 % (39.0-49.0); HEMOGLOBIN 9.5 gm/dL (13.2-17.3); MEAN CELL VOLUME 82.4 fl (80-99); MEAN CORPUSCULAR HGB CONC 32.8 pg (28.0-36.0); MEAN PLATELET VOLUME 10.6 fl; PLATELET COUNT 333 Th/cmm (150-400); RED BLOOD COUNT 3.51 Mil/cmm (4.30-5.70); WHITE BLOOD COUNT 9.3 Th/cmm (4.8-10.8)
[2017-05-23 06:04] LABS: ALB/GLOB RATIO 0.5 (1.0-1.8); ANION GAP 8.3 (7.0-16.0); CALCIUM SERUM 9.8 mg/dL (8.6-10.3); CARBON DIOXIDE 23.6 mEq/L (21.0-31.0); CREATININE - SERUM 1.8 mg/dL (0.7-1.3); MAGNESIUM 2.3 mg/dL (1.9-2.7); POTASSIUM SERUM 3.9 mEq/L (3.5-5.1)
[2017-05-23] MEDS: Budesonide 0.5 Mg/2 mL Ud HHN SCH ×2 (06:59→19:04)
[2017-05-23] MEDS: INSULIN ASPART SLIDING SCALE 100 UNITS/ML UNIT SUBQ SCH ×3 (08:00→17:42)
[2017-05-23] MEDS: Chlorhexidine Gluconate 0.12% 15mL Mouthwash MM SCH ×2 (08:35→20:44)
[2017-05-23 08:46] LABS: BAND NEUTROPHILE 0 % (0-10); EOSINOPHIL 25 % (0-5); TOTAL CELLS COUNTED 100
[2017-05-23 08:47] LABS: NEUTROPHILS 41 % (40-80)
[2017-05-23] MEDS: cefTAZidime 1 GM in Sodium Chloride 0.9% 50 ML IV SCH ×2 (08:58→21:50)
[2017-05-23] MEDS: Lactobacillus Rhamnosus 10 Billion CFU Capsule PO SCH (09:10)
[2017-05-23] MEDS: TPN 10%-70% CUSTOM IV SCH (15:41)
--- NOTE | 2017-05-23 15:41 | Infectious Disease Prog Note ---
Infectious Disease Subjective - Review of Systems Service Date: 05/23/17 Subjective: cc psuedomonas pneumonia peritonitis hpi- pt on iv ba x reviewed c/s ros no fver o/e vss chest claer bd soft wound present ext no edema dx pn/peritonitis plan same abx Infectious Disease Objective - Results Result Diagrams: 05/23/17 04:50 05/23/17 04:50 Recent Labs: Laboratory Last Values WBC 9.3 Th/cmm (4.8-10.8) 05/23/17 04:50 RBC 3.51 Mil/cmm (4.30-5.70) L 05/23/17 04:50 Hgb 9.5 gm/dL (13.2-17.3) L 05/23/17 04:50 Hct 28.9 % (39.0-49.0) L D 05/23/17 04:50 MCV 82.4 fl (80-99) 05/23/17 04:50 MCH 27.0 pg (26.0-30.0) 05/23/17 04:50 MCHC Differential 32.8 pg (28.0-36.0) 05/23/17 04:50 RDW 18.0 % (11.5-20.0) 05/23/17 04:50 Plt Count 333 Th/cmm (150-400) 05/23/17 04:50 MPV 10.6 fl 05/23/17 04:50 Neutrophils % 61.3 % (40.0-80.0) 05/15/17 04:29 Band Neutrophils % 0 % (0-10) 05/23/17 04:50 Lymphocytes % 17.3 % (20.0-50.0) L 05/15/17 04:29 Monocytes % 8.6 % (2.0-10.0) 05/15/17 04:29 Eosinophils % 12.3 % (0.0-5.0) H 05/15/17 04:29 Basophils % 0.5 % (0.0-2.0) 05/15/17 04:29 Neutrophils (Manual) 41 % (40-80) 05/23/17 04:50 Lymphocytes 24 % (20-50) 05/23/17 04:50 Monocytes 10 % (2-10) 05/23/17 04:50 Eosinophils 25 % (0-5) H 05/23/17 04:50 Basophils 1 % (0-3) 05/19/17 05:15 Metamyelocytes 1 % (0-0) H 04/22/17 05:04 Atypical Lymphocytes 1 % 05/21/17 04:30 Platelet Estimate ADEQUATE (NORMAL) 05/22/17 05:40 Platelet Morphology NORMAL (NORMAL) 05/22/17 05:40 Anisocytosis 1+ 05/22/17 05:40 Microcytosis 1+ 05/02/17 05:15 RBC Morph Micro Appear ABNORMAL (NORMAL) 05/22/17 05:40 ESR > 140 mm/hr (0-20) H 04/20/17 07:00 Plt Count 276 Th/cmm (150-750) 05/19/17 07:37 PT 13.7 SECONDS (9.5-11.5) H 05/19/17 07:37 INR 1.30 (0.5-1.4) 05/19/17 07:37 PTT (Actin FS) 34.8 SECONDS (26.0-38.0) 05/19/17 07:37 Fibrinogen 222.0 mg/dL (200.0-400.0) 05/19/17 07:37 D-Dimer 3160 ng/mL (100-400) H 05/19/17 07:37 Specimen Source Arterial 05/22/17 09:00 Sample Site Left Radial 05/22/17 09:00 pH 7.53 (7.35-7.45) H 05/22/17 09:00 pCO2 30.0 mmHg (35.0-45.0) L 05/22/17 09:00 pO2 128.0 mmHg (80.0-100.0) H 05/22/17 09:00 HCO3 27.3 mEq/L (20.0-26.0) H 05/22/17 09:00 Base Excess 3.0 mEq/L (-3.0-3.0) 05/22/17 09:00 O2 Saturation 99.0 % (92.0-100.0) 05/22/17 09:00 Chau Test YES 05/22/17 09:00 Vent Rate 16 05/22/17 09:00 Inspired O2 30 05/22/17 09:00 Tidal Volume 650 05/22/17 09:00 PEEP 3 05/22/17 09:00 Pressure (ins/psv/peep) NA 05/22/17 09:00 Critical Value SH 05/22/17 09:00 Sodium 144 mEq/L (136-145) 05/23/17 04:50 Potassium 3.9 mEq/L (3.5-5.1) 05/23/17 04:50 Chloride 116 mEq/L (98-107) H 05/23/17 04:50 Carbon Dioxide 23.6 mEq/L (21.0-31.0) 05/23/17 04:50 Anion Gap 8.3 (7.0-16.0) 05/23/17 04:50 BUN 81 mg/dL (7-25) H* 05/23/17 04:50 Creatinine 1.8 mg/dL (0.7-1.3) H 05/23/17 04:50 Est GFR ( Amer) 50.3 ml/min (>90) 05/23/17 04:50 Est GFR (Non-Af Amer) 41.5 ml/min 05/23/17 04:50 BUN/Creatinine Ratio 45.0 05/23/17 04:50 Glucose 202 mg/dL (70-105) H 05/23/17 04:50 POC Glucose 158 MG/DL (70 - 105) H 05/23/17 11:39 Hemoglobin A1c % 6.5 % (4.0-6.0) H 05/22/17 07:52 Whole Bld Lactic Acid 1.66 mmol/L (0.60-1.99) 05/12/17 04:40 Uric Acid 3.6 mg/dL (4.4-7.6) L 04/20/17 07:00 Calcium 9.8 mg/dL (8.6-10.3) 05/23/17 04:50 Phosphorus 3.0 mg/dL (2.5-5.0) 05/23/17 04:50 Magnesium 2.3 mg/dL (1.9-2.7) 05/23/17 04:50 Total Bilirubin 1.0 mg/dL (0.3-1.0) 05/23/17 04:50 Direct Bilirubin 0.35 mg/dL (0.0-0.2) H 05/18/17 04:50 AST 85 U/L (13-39) H 05/23/17 04:50 ALT 48 U/L (7-52) 05/23/17 04:50 Alkaline Phosphatase 284 U/L (34-104) H 05/23/17 04:50 Ammonia 42 umol/L (16-53) 05/18/17 04:50 Creatine Kinase 136 U/L (30-223) 04/14/17 14:55 Troponin I 0.01 ng/mL (0.01-0.05) 04/22/17 05:04 C-Reactive Protein 27.5 mg/dL (0.0-0.9) H 05/15/17 04:29 B-Natriuretic Peptide 20.7 pg/mL (5.0-100.0) 05/13/17 04:27 Total Protein 6.7 gm/dL (6.0-8.3) 05/23/17 04:50 Albumin 2.3 gm/dL (4.2-5.5) L 05/23/17 04:50 Globulin 4.4 gm/dL 05/23/17 04:50 Albumin/Globulin Ratio 0.5 (1.0-1.8) L 05/23/17 04:50 Prealbumin 7 mg/dL (10-36) L 05/15/17 04:29 Triglycerides 271 mg/dL (<150) H 05/20/17 04:30 Cholesterol 55 mg/dL (<200) 05/20/17 04:30 LDL Cholesterol Direct 38 mg/dL (75-193) L 04/14/17 14:55 HDL Cholesterol 13 mg/dL (23-92) L 04/14/17 14:55 Amylase 53 U/L (29-103) 05/09/17 06:00 Lipase 85 U/L (11-82) H 05/09/17 06:00 Vitamin D 25-Hydroxy 25.8 ng/mL (30.0-100.0) L 05/18/17 04:50 Procalcitonin SEE REF LAB REPORT 05/05/17 04:35 PTH Interpretation (()) 05/18/17 04:50 PTH Intact <6 pg/mL (15-65) L 05/18/17 04:50 Calcium (PTH Intact) 9.6 mg/dL (8.7-10.2) 05/18/17 04:50 Urine Source [place] 05/18/17 16:30 Urine Color YELLOW 05/18/17 16:30 Urine Clarity CLOUDY (CLEAR) 05/18/17 16:30 Urine pH 5.5 (4.6 - 8.0) 05/18/17 16:30 Ur Specific [place] 1.010 (1.005-1.030) 05/18/17 16:30 Urine Protein NEGATIVE mg/dL (NEGATIVE) 05/18/17 16:30 Urine Glucose (UA) NEGATIVE mg/dL (NEGATIVE) 05/18/17 16:30 Urine Ketones NEGATIVE mg/dL (NEGATIVE) 05/18/17 16:30 Urine Blood MODERATE (NEGATIVE) H 05/18/17 16:30 Urine Nitrate NEGATIVE (NEGATIVE) 05/18/17 16:30 Urine Bilirubin NEGATIVE (NEGATIVE) 05/18/17 16:30 Urine Urobilinogen 0.2 E.U./dL (0.2 - 1.0) 05/18/17 16:30 Ur Leukocyte Esterase TRACE (NEGATIVE) H 05/18/17 16:30 Urine RBC 10-25 /hpf (0-5) H 05/18/17 16:30 Urine WBC 6-10 /hpf (0-5) H 05/18/17 16:30 Ur Epithelial Cells FEW /lpf (FEW) 05/18/17 16:30 Amorphous Sediment MANY URATES (NONE SEEN) 04/14/17 15:05 Urine Bacteria NONE SEEN /hpf (NONE SEEN) 05/18/17 16:30 Hyaline Casts 5-10 /lpf (0-2) H 05/18/17 16:30 Urine Sperm MANY /hpf (NONE SEEN) 05/18/17 16:30 Amikacin Peak 23.4 ug/mL (20.0-30.0) 05/19/17 16:02 Amikacin Trough 8.6 ug/mL (1.0-8.0) H 05/19/17 13:30 Random Amikacin 6.7 ug/ml (1.0-30.0) 05/17/17 04:25 Vancomycin Trough 13.5 ug/mL (10-20) 04/19/17 19:20 Helicobacter pylori Ab NEGATIVE (NEGATIVE) 05/04/17 10:05 Blood Type O POSITIVE 05/02/17 07:12 Antibody Screen NEGATIVE 05/02/17 07:12 Crossmatch See Detail 05/02/17 07:12 - Physical Exam Vitals and I&O: Vital Signs Temp 97.5 F 05/23/17 15:00 Pulse 87 05/23/17 15:04 Resp 26 05/23/17 15:00 BP 103/57 05/23/17 15:00 Pulse Ox 100 05/23/17 15:04 Intake & Output 05/22/17 05/23/17 05/23/17 18:59 06:59 18:59 Intake Total 1451.2 2451.2 162.2 Output Total 2300 1450 Balance -848.8 1001.2 162.2 Weight (lbs) 100.244 kg 99.79 kg Intake: Intake, IV Amount 1391.2 1251.2 162.2 Amikacin 300 mg In 101.2 101.2 101.2 Dextrose 5% 100 ml @ 100 mls/hr IV Q12H [facility] Rx#: [id number] Dextrose 5% 1,000 ml @ 50 100 1000 mls/hr IV .Q20H [facility] Rx#: [id number] Levofloxacin 250mg/50mL 50 250 mg In 50 ml @ 50 mls/ hr IV Q24HR [facility] Rx#: [id number] Multivitamin Inj 10 ml In 990 Dextrose 70% 1,740 ml In Amino Acids 10% 500 ml In Intralipids 20% 150 ml @ 100 mls/hr IV .Q24H [facility] Rx#:[id number] Tigecycline 50 mg In 100 100 11 Sodium Chloride 0.9% 100 ml @ 100 mls/hr IV Q12HR [facility] Rx#:[id number] cefTAZidime 1 gm In 50 50 50 Sodium Chloride 0.9% 50 ml @ Per Protocol IV Q12HR [facility] Rx#:[id number] Oral 0 TPN/PPN 1200 Other 60 Output: Gastric Drainage 50 50 Urine 2250 1350 Stool 0 50 Other: Stool Characteristics Liquid Liquid Green Green Active Medications: Current Medications Acetaminophen (Tylenol 650mg/20.3ml Suspension) 650 mg NG Q6H PRN PRN Reason: FEVER/PAIN Stop: 06/21/17 17:45 Last Admin: 05/15/17 09:50 Dose: 650 mg Albuterol/Ipratropium (Duoneb Neb) 3 ml HHN Q4HRT [facility] Stop: 06/15/17 14:59 Last Admin: 05/23/17 15:04 Dose: 3 ml Amiodarone HCl (Cordarone) 200 mg NG BID [facility] Stop: 06/24/17 23:14 Last Admin: 05/23/17 09:59 Dose: Not Given Budesonide (Pulmicort) 0.5 mg HHN BIDRT [facility] Stop: 06/15/17 18:59 Last Admin: 05/23/17 06:59 Dose: 0.5 mg Chlorhexidine Gluconate (Peridex) 15 ml MM 0800,1999 [facility] Stop: 06/30/17 19:59 Last Admin: 05/23/17 08:35 Dose: 15 ml Enalaprilat (Vasotec) 2.5 mg IVP Q4HR PRN PRN Reason: SBP>150 Stop: 07/06/17 15:59 Famotidine (Pepcid) 20 mg IVP DAILY [facility] Stop: 07/18/17 08:59 Last Admin: 05/23/17 09:30 Dose: 20 mg Furosemide (Lasix) 40 mg IVP BID [facility] Stop: 07/12/17 16:59 Last Admin: 05/23/17 09:40 Dose: Not Given Multivitamins/Minerals 10 ml/Dextrose/ Amino Acids/Electrolytes/ Fat Emulsion Intravenous 2,400 mls @ 100 mls/hr IV .Q24H [facility] Stop: 06/23/17 15:59 Last Admin: 05/22/17 16:00 Dose: 100 mls/hr Diltiazem HCl 125 mg/ Dextrose 125 mls @ 10 mls/hr IV TITR [facility]; 10 MG/HR PRN Reason: Protocol Stop: 07/06/17 11:14 Last Titration: 05/11/17 18:00 Dose: 0 mg/hr, 0 mls/hr Tigecycline 50 mg/ Sodium (Chloride) 100 mls @ 100 mls/hr IV Q12HR [facility] Stop: 07/13/17 20:59 Last Infusion: 05/23/17 10:40 Dose: 100 mls/hr Ceftazidime 1 gm/ Sodium (Chloride) 50 mls @ 0 mls/hr IV Q12HR [facility] PRN Reason: Per Protocol Stop: 07/16/17 20:59 Last Infusion: 05/23/17 09:30 Dose: Infused Levofloxacin (Levaquin Pb) 250 mg in 50 mls @ 50 mls/hr IV Q24HR [facility] Stop: 07/17/17 17:59 Last Infusion: 05/22/17 18:52 Dose: Infused Dextrose (D5w) 1,000 mls @ 50 mls/hr IV .Q20H [facility] Stop: 07/18/17 10:05 Last Admin: 05/23/17 05:13 Dose: 50 mls/hr Norepinephrine Bitartrate 4 mg (/ Dextrose) 254 mls @ 15.24 mls/hr IV TITR PRN ; Protocol; 4 MCG/MIN PRN Reason: BP MAINTENANCE (PER PROTOCOL) Stop: 07/18/17 10:59 Last Titration: 05/20/17 16:00 Dose: 0 mcg/min, 0 mls/hr Amikacin Sulfate 300 mg/ (Dextrose) 101.2 mls @ 100 mls/hr IV Q12H [facility] Stop: 07/20/17 13:59 Last Infusion: 05/23/17 14:55 Dose: Infused Insulin Aspart (Novolog Insulin Sliding Scale) 0 units SUBQ Q6HR [facility] PRN Reason: Protocol Stop: 07/17/17 11:59 Last Admin: 05/23/17 11:43 Dose: 2 units Lactobacillus Rhamnosus (Culturelle) 1 each PO DAILY [facility] Stop: 07/16/17 08:59 Last Admin: 05/23/17 09:10 Dose: Not Given Metoclopramide HCl (Reglan) 10 mg IVP Q8HR [facility] Stop: 07/06/17 20:59 Last Admin: 05/23/17 13:16 Dose: 10 mg Metoprolol Tartrate (Lopressor) 25 mg PO BID [facility] Stop: 06/26/17 08:59 Last Admin: 05/23/17 09:35 Dose: Not Given Mineral Oil (Mineral Oil 30 Ml) 30 ml NG DAILY [facility] Stop: 07/04/17 12:29 Last Admin: 05/23/17 09:40 Dose: Not Given Miscellaneous (Vte Chemical Prophylaxis Screen/ Admission) 1 ea MC PRN PRN PRN Reason: PROTOCOL Stop: 07/01/17 14:44 Miscellaneous (Amikacin Iv Per Pharmacy) 1 ea MC PRN PRN PRN Reason: PROTOCOL Stop: 07/13/17 18:39 Miscellaneous (Probiotic Screen) 1 ea MC PRN PRN PRN Reason: PROTOCOL Stop: 07/15/17 10:37 Miscellaneous (Tpn Per Pharmacy) 1 ea PRN PRN PRN Reason: PROTOCOL Stop: 07/17/17 15:12 Morphine Sulfate (Morphine) 2 mg IVP Q4H PRN PRN Reason: PAIN Stop: 07/11/17 16:49 Last Admin: 05/23/17 10:40 Dose: 2 mg Sulfacetamide Sodium (Sulamyd 10% Oph Soln) 1 drop EACH EYE Q6HR [facility] Stop: 07/16/17 11:59 Last Admin: 05/23/17 12:30 Dose: 1 drop - Procedures Procedures: Procedures Procedure Code Date BYPASS SIGMOID COLON TO CUTANEOUS, OPEN APPROACH [id number] 04/14/17 BYPASS TRACHEA TO CUTANEOUS WITH TRACH DEV, OPEN APPROACH [id number] 04/14/17 INCISION OF WINDPIPE 47311 04/14/17 INSERT EMERGENCY AIRWAY 71068 04/14/17 INSERTION OF ENDOTRACHEAL AIRWAY INTO TRACHEA, VIA OPENING [id number] 04/14/17 INSERTION OF INFUSION DEV INTO SUP VENA CAVA, PERC APPROACH [id number] 04/14/17 PARTIAL REMOVAL OF COLON 57491 04/14/[address] PL[address] CATHETER IN VEIN 56002 04/14/17 RESECTION OF SIGMOID COLON, OPEN APPROACH [id number] 04/14/17 RESPIRATORY VENTILATION, 24-96 CONSECUTIVE HOURS [id number] 04/14/17 VENT MGMT INPAT INIT DAY 71529 04/14/17 VENT MGMT INPAT SUBQ DAY 40713 04/14/17 Infectious Disease Assmt/Plan - Problem List Patient Problems: All Active Problems Abscess of sigmoid colon due to diverticulitis (Acute) K57.20 Diverticulitis of sigmoid colon (Acute) K57.32 Obesity (Acute) E66.9 Perforation of sigmoid colon due to diverticulitis (Acute) K57.20 Peritonitis (acute) generalized (Acute) K65.0 Nutritional Asmnt/Malnutr-PDOC - Dietary Evaluation Malnutrition Findings (Please click <Entered> for more info): Nutritional Asmnt/Malnutrition Start: 04/19/17 14: 21 Text: Status: Complete Freq: Document 04/19/17 14:21 GSUN (Rec: 04/19/17 14:58 [id number] [id number]) Nutritional Asmnt/Malnutrition Patient General Information Nutritional Screening Moderate Risk Screening Diagnosis Sepsis, diverticulitis, peritonitis Pertinent Medical Hx/Surgical Hx Asthma, diverticulosis Subjective Information 56 year old male frome home. Pt was restless, moving extremities during visit. 04/14 : sigmoid colectomy, end colostomy, abscess drainage, diffuse peritontis. 04/16: pt started PPN. 04/17: central line and started on TPN. Spoke to family at bedside, explained parenteral nutrition , family undersoto and has no further question at this time. Weight discrepancies noted in EMR, family does not know UBW , estimated nutritional needs based Current Diet Order/ Nutrition Support TPN D10% AA4.25% at 90ml/hr with IL20% 150ml, providing 1401.6kcal Pertinent Medications Dilaudid, Novolog, Culturelle, Magnesium Sulfate, Vancomycin , TPN, Morphine, Multivitamins , Zofran, Protonix, Nacl0.9% Pertinent Labs 04/14: triglycerides 106, total bilirubin 1.1H, glucose 116H 04/17: magnesium 2.5, phsophorus 3.2 04/19: magnesium 1.8L, phosphorus 2.4L, BUN 28H, creatinine 1.3, glucose 154H, total bilirubin 1.1H, triglycerides 238H Nutritional Hx/Data Height 1.7 m Height (Calculated Centimeters) 170.2 Current Weight (lbs) 95.254 kg Weight (Calculated Kilograms) 95.3 Weight (Calculated Grams) 05353.4 Grants Body Weight 148 Weight Status Overweight GI Symptoms Skin Integrity/Comment: [place] 14. Facial non-pitting 1+, bilateral hands pitting 1+ Estimated Nutritional Goals Calories/Kcals/Kg IBW 148/67.3kg Kcals Calculated 2019-2356kcal (30-35kcal/kg) Protein Calculated 101-135g (1.5-2g/kg) Fluid: ml Per MD Nutritional Problem 1. Problem Problem Altered GI function related to Etiology abscess and perforation of sigmoid colon due to diverticulitis aeb Signs/Symptoms: post-operative, on TPN Intervention/Recommendation Comments 1. Recommend TPN D15% AA5.5% at 100ml/hr with IL20% 150ml, providing 2400ml total volume, 2052kcal, 132g protein, meeting 100% of estimated nutritional needs. Carb load 2 .6mg/kg/min (using 210lb adm weight). 2. Monitor for possible refeeding syndrome, 04/18: phsophorus 2.1L, 04/19: magnesium 1.9. 3. Monitor triglycerides, total bilirubin, glucose, renal labs. Expected Outcomes/Goals Expected Outcomes/Goals 1. Pt to meet 100% of estimated nutritional needs on TPN.
--- NOTE | 2017-05-23 16:30 | General Progress Note ---
Subjective - Review of Systems Subjective: Patient is seen and examined. Patient currently on vent. Patient is more alert and awake trying to follow commands. Status post tracheostomy postoperative day 2. Patient's family at bedside. Discussed with them about patient's diagnosis and treatment plan. Patient's family is requesting notes for the patient's son for work. Chart reviewed. Objective - Results Result Diagrams: 05/23/17 04:50 05/23/17 04:50 Recent Labs: Laboratory Last Values WBC 9.3 Th/cmm (4.8-10.8) 05/23/17 04:50 RBC 3.51 Mil/cmm (4.30-5.70) L 05/23/17 04:50 Hgb 9.5 gm/dL (13.2-17.3) L 05/23/17 04:50 Hct 28.9 % (39.0-49.0) L D 05/23/17 04:50 MCV 82.4 fl (80-99) 05/23/17 04:50 MCH 27.0 pg (26.0-30.0) 05/23/17 04:50 MCHC Differential 32.8 pg (28.0-36.0) 05/23/17 04:50 RDW 18.0 % (11.5-20.0) 05/23/17 04:50 Plt Count 333 Th/cmm (150-400) 05/23/17 04:50 MPV 10.6 fl 05/23/17 04:50 Neutrophils % 61.3 % (40.0-80.0) 05/15/17 04:29 Band Neutrophils % 0 % (0-10) 05/23/17 04:50 Lymphocytes % 17.3 % (20.0-50.0) L 05/15/17 04:29 Monocytes % 8.6 % (2.0-10.0) 05/15/17 04:29 Eosinophils % 12.3 % (0.0-5.0) H 05/15/17 04:29 Basophils % 0.5 % (0.0-2.0) 05/15/17 04:29 Neutrophils (Manual) 41 % (40-80) 05/23/17 04:50 Lymphocytes 24 % (20-50) 05/23/17 04:50 Monocytes 10 % (2-10) 05/23/17 04:50 Eosinophils 25 % (0-5) H 05/23/17 04:50 Basophils 1 % (0-3) 05/19/17 05:15 Metamyelocytes 1 % (0-0) H 04/22/17 05:04 Atypical Lymphocytes 1 % 05/21/17 04:30 Platelet Estimate ADEQUATE (NORMAL) 05/22/17 05:40 Platelet Morphology NORMAL (NORMAL) 05/22/17 05:40 Anisocytosis 1+ 05/22/17 05:40 Microcytosis 1+ 05/02/17 05:15 RBC Morph Micro Appear ABNORMAL (NORMAL) 05/22/17 05:40 ESR > 140 mm/hr (0-20) H 04/20/17 07:00 Plt Count 276 Th/cmm (150-750) 05/19/17 07:37 PT 13.7 SECONDS (9.5-11.5) H 05/19/17 07:37 INR 1.30 (0.5-1.4) 05/19/17 07:37 PTT (Actin FS) 34.8 SECONDS (26.0-38.0) 05/19/17 07:37 Fibrinogen 222.0 mg/dL (200.0-400.0) 05/19/17 07:37 D-Dimer 3160 ng/mL (100-400) H 05/19/17 07:37 Specimen Source Arterial 05/22/17 09:00 Sample Site Left Radial 05/22/17 09:00 pH 7.53 (7.35-7.45) H 05/22/17 09:00 pCO2 30.0 mmHg (35.0-45.0) L 05/22/17 09:00 pO2 128.0 mmHg (80.0-100.0) H 05/22/17 09:00 HCO3 27.3 mEq/L (20.0-26.0) H 05/22/17 09:00 Base Excess 3.0 mEq/L (-3.0-3.0) 05/22/17 09:00 O2 Saturation 99.0 % (92.0-100.0) 05/22/17 09:00 Chau Test YES 05/22/17 09:00 Vent Rate 16 05/22/17 09:00 Inspired O2 30 05/22/17 09:00 Tidal Volume 650 05/22/17 09:00 PEEP 3 05/22/17 09:00 Pressure (ins/psv/peep) NA 05/22/17 09:00 Critical Value SH 05/22/17 09:00 Sodium 144 mEq/L (136-145) 05/23/17 04:50 Potassium 3.9 mEq/L (3.5-5.1) 05/23/17 04:50 Chloride 116 mEq/L (98-107) H 05/23/17 04:50 Carbon Dioxide 23.6 mEq/L (21.0-31.0) 05/23/17 04:50 Anion Gap 8.3 (7.0-16.0) 05/23/17 04:50 BUN 81 mg/dL (7-25) H* 05/23/17 04:50 Creatinine 1.8 mg/dL (0.7-1.3) H 05/23/17 04:50 Est GFR ( Amer) 50.3 ml/min (>90) 05/23/17 04:50 Est GFR (Non-Af Amer) 41.5 ml/min 05/23/17 04:50 BUN/Creatinine Ratio 45.0 05/23/17 04:50 Glucose 202 mg/dL (70-105) H 05/23/17 04:50 POC Glucose 158 MG/DL (70 - 105) H 05/23/17 11:39 Hemoglobin A1c % 6.5 % (4.0-6.0) H 05/22/17 07:52 Whole Bld Lactic Acid 1.66 mmol/L (0.60-1.99) 05/12/17 04:40 Uric Acid 3.6 mg/dL (4.4-7.6) L 04/20/17 07:00 Calcium 9.8 mg/dL (8.6-10.3) 05/23/17 04:50 Phosphorus 3.0 mg/dL (2.5-5.0) 05/23/17 04:50 Magnesium 2.3 mg/dL (1.9-2.7) 05/23/17 04:50 Total Bilirubin 1.0 mg/dL (0.3-1.0) 05/23/17 04:50 Direct Bilirubin 0.35 mg/dL (0.0-0.2) H 05/18/17 04:50 AST 85 U/L (13-39) H 05/23/17 04:50 ALT 48 U/L (7-52) 05/23/17 04:50 Alkaline Phosphatase 284 U/L (34-104) H 05/23/17 04:50 Ammonia 42 umol/L (16-53) 05/18/17 04:50 Creatine Kinase 136 U/L (30-223) 04/14/17 14:55 Troponin I 0.01 ng/mL (0.01-0.05) 04/22/17 05:04 C-Reactive Protein 27.5 mg/dL (0.0-0.9) H 05/15/17 04:29 B-Natriuretic Peptide 20.7 pg/mL (5.0-100.0) 05/13/17 04:27 Total Protein 6.7 gm/dL (6.0-8.3) 05/23/17 04:50 Albumin 2.3 gm/dL (4.2-5.5) L 05/23/17 04:50 Globulin 4.4 gm/dL 05/23/17 04:50 Albumin/Globulin Ratio 0.5 (1.0-1.8) L 05/23/17 04:50 Prealbumin 7 mg/dL (10-36) L 05/15/17 04:29 Triglycerides 271 mg/dL (<150) H 05/20/17 04:30 Cholesterol 55 mg/dL (<200) 05/20/17 04:30 LDL Cholesterol Direct 38 mg/dL (75-193) L 04/14/17 14:55 HDL Cholesterol 13 mg/dL (23-92) L 04/14/17 14:55 Amylase 53 U/L (29-103) 05/09/17 06:00 Lipase 85 U/L (11-82) H 05/09/17 06:00 Vitamin D 25-Hydroxy 25.8 ng/mL (30.0-100.0) L 05/18/17 04:50 Procalcitonin SEE REF LAB REPORT 05/05/17 04:35 PTH Interpretation (()) 05/18/17 04:50 PTH Intact <6 pg/mL (15-65) L 05/18/17 04:50 Calcium (PTH Intact) 9.6 mg/dL (8.7-10.2) 05/18/17 04:50 Urine Source [place] 05/18/17 16:30 Urine Color YELLOW 05/18/17 16:30 Urine Clarity CLOUDY (CLEAR) 05/18/17 16:30 Urine pH 5.5 (4.6 - 8.0) 05/18/17 16:30 Ur Specific [place] 1.010 (1.005-1.030) 05/18/17 16:30 Urine Protein NEGATIVE mg/dL (NEGATIVE) 05/18/17 16:30 Urine Glucose (UA) NEGATIVE mg/dL (NEGATIVE) 05/18/17 16:30 Urine Ketones NEGATIVE mg/dL (NEGATIVE) 05/18/17 16:30 Urine Blood MODERATE (NEGATIVE) H 05/18/17 16:30 Urine Nitrate NEGATIVE (NEGATIVE) 05/18/17 16:30 Urine Bilirubin NEGATIVE (NEGATIVE) 05/18/17 16:30 Urine Urobilinogen 0.2 E.U./dL (0.2 - 1.0) 05/18/17 16:30 Ur Leukocyte Esterase TRACE (NEGATIVE) H 05/18/17 16:30 Urine RBC 10-25 /hpf (0-5) H 05/18/17 16:30 Urine WBC 6-10 /hpf (0-5) H 05/18/17 16:30 Ur Epithelial Cells FEW /lpf (FEW) 05/18/17 16:30 Amorphous Sediment MANY URATES (NONE SEEN) 04/14/17 15:05 Urine Bacteria NONE SEEN /hpf (NONE SEEN) 05/18/17 16:30 Hyaline Casts 5-10 /lpf (0-2) H 05/18/17 16:30 Urine Sperm MANY /hpf (NONE SEEN) 05/18/17 16:30 Amikacin Peak 23.4 ug/mL (20.0-30.0) 05/19/17 16:02 Amikacin Trough 8.6 ug/mL (1.0-8.0) H 05/19/17 13:30 Random Amikacin 6.7 ug/ml (1.0-30.0) 05/17/17 04:25 Vancomycin Trough 13.5 ug/mL (10-20) 04/19/17 19:20 Helicobacter pylori Ab NEGATIVE (NEGATIVE) 05/04/17 10:05 Blood Type O POSITIVE 05/02/17 07:12 Antibody Screen NEGATIVE 05/02/17 07:12 Crossmatch See Detail 05/02/17 07:12 - Physical Exam Vitals and I&O: Vital Signs Temp 97.5 F 05/23/17 15:00 Pulse 87 05/23/17 15:04 Resp 26 05/23/17 15:00 BP 103/57 05/23/17 15:00 Pulse Ox 100 05/23/17 15:04 Intake & Output 05/22/17 05/23/17 05/23/17 18:59 06:59 18:59 Intake Total 1451.2 2451.2 3057.200 Output Total 2300 1450 Balance -848.8 1001.2 3057.200 Weight (lbs) 100.244 kg 99.79 kg Intake: Intake, IV Amount 1391.2 1251.2 3057.200 Amikacin 300 mg In 101.2 101.2 101.2 Dextrose 5% 100 ml @ 100 mls/hr IV Q12H [facility] Rx#: [id number] Dextrose 5% 1,000 ml @ 50 100 1000 526.667 mls/hr IV .Q20H [facility] Rx#: [id number] Levofloxacin 250mg/50mL 50 250 mg In 50 ml @ 50 mls/ hr IV Q24HR [facility] Rx#: [id number] Multivitamin Inj 10 ml In 990 2368.333 Dextrose 70% 1,740 ml In Amino Acids 10% 500 ml In Intralipids 20% 150 ml @ 100 mls/hr IV .Q24H [facility] Rx#:[id number] Tigecycline 50 mg In 100 100 11 Sodium Chloride 0.9% 100 ml @ 100 mls/hr IV Q12HR [facility] Rx#:[id number] cefTAZidime 1 gm In 50 50 50 Sodium Chloride 0.9% 50 ml @ Per Protocol IV Q12HR [facility] Rx#:[id number] Oral 0 TPN/PPN 1200 Other 60 Output: Gastric Drainage 50 50 Urine 2250 1350 Stool 0 50 Other: Stool Characteristics Liquid Liquid Green Green Active Medications: Current Medications Acetaminophen (Tylenol 650mg/20.3ml Suspension) 650 mg NG Q6H PRN PRN Reason: FEVER/PAIN Stop: 06/21/17 17:45 Last Admin: 05/15/17 09:50 Dose: 650 mg Albuterol/Ipratropium (Duoneb Neb) 3 ml HHN Q4HRT [facility] Stop: 06/15/17 14:59 Last Admin: 05/23/17 15:04 Dose: 3 ml Amiodarone HCl (Cordarone) 200 mg NG BID [facility] Stop: 06/24/17 23:14 Last Admin: 05/23/17 09:59 Dose: Not Given Budesonide (Pulmicort) 0.5 mg HHN BIDRT [facility] Stop: 06/15/17 18:59 Last Admin: 05/23/17 06:59 Dose: 0.5 mg Chlorhexidine Gluconate (Peridex) 15 ml MM 0800,1999 [facility] Stop: 06/30/17 19:59 Last Admin: 05/23/17 08:35 Dose: 15 ml Enalaprilat (Vasotec) 2.5 mg IVP Q4HR PRN PRN Reason: SBP>150 Stop: 07/06/17 15:59 Famotidine (Pepcid) 20 mg IVP DAILY [facility] Stop: 07/18/17 08:59 Last Admin: 05/23/17 09:30 Dose: 20 mg Furosemide (Lasix) 40 mg IVP BID [facility] Stop: 07/12/17 16:59 Last Admin: 05/23/17 09:40 Dose: Not Given Multivitamins/Minerals 10 ml/Dextrose/ Amino Acids/Electrolytes/ Fat Emulsion Intravenous 2,400 mls @ 100 mls/hr IV .Q24H [facility] Stop: 06/23/17 15:59 Last Admin: 05/23/17 15:41 Dose: 100 mls/hr Diltiazem HCl 125 mg/ Dextrose 125 mls @ 10 mls/hr IV TITR ARIAN; 10 MG/HR PRN Reason: Protocol Stop: 07/06/17 11:14 Last Titration: 05/11/17 18:00 Dose: 0 mg/hr, 0 mls/hr Tigecycline 50 mg/ Sodium (Chloride) 100 mls @ 100 mls/hr IV Q12HR [facility] Stop: 07/13/17 20:59 Last Infusion: 05/23/17 10:40 Dose: 100 mls/hr Ceftazidime 1 gm/ Sodium (Chloride) 50 mls @ 0 mls/hr IV Q12HR [facility]AN PRN Reason: Per Protocol Stop: 07/16/17 20:59 Last Infusion: 05/23/17 09:30 Dose: Infused Levofloxacin (Levaquin Pb) 250 mg in 50 mls @ 50 mls/hr IV Q24HR [facility] Stop: 07/17/17 17:59 Last Infusion: 05/22/17 18:52 Dose: Infused Dextrose (D5w) 1,000 mls @ 50 mls/hr IV .Q20H [facility] Stop: 07/18/17 10:05 Last Admin: 05/23/17 15:45 Dose: 50 mls/hr Norepinephrine Bitartrate 4 mg (/ Dextrose) 254 mls @ 15.24 mls/hr IV TITR PRN ; Protocol; 4 MCG/MIN PRN Reason: BP MAINTENANCE (PER PROTOCOL) Stop: 07/18/17 10:59 Last Titration: 05/20/17 16:00 Dose: 0 mcg/min, 0 mls/hr Amikacin Sulfate 300 mg/ (Dextrose) 101.2 mls @ 100 mls/hr IV Q12H [facility] Stop: 07/20/17 13:59 Last Infusion: 05/23/17 14:55 Dose: Infused Insulin Aspart (Novolog Insulin Sliding Scale) 0 units SUBQ Q6HR [facility] PRN Reason: Protocol Stop: 07/17/17 11:59 Last Admin: 05/23/17 11:43 Dose: 2 units Lactobacillus Rhamnosus (Culturelle) 1 each PO DAILY [facility] Stop: 07/16/17 08:59 Last Admin: 05/23/17 09:10 Dose: Not Given Metoclopramide HCl (Reglan) 10 mg IVP Q8HR [facility] Stop: 07/06/17 20:59 Last Admin: 05/23/17 13:16 Dose: 10 mg Metoprolol Tartrate (Lopressor) 25 mg PO BID [facility] Stop: 06/26/17 08:59 Last Admin: 05/23/17 09:35 Dose: Not Given Mineral Oil (Mineral Oil 30 Ml) 30 ml NG DAILY [facility] Stop: 07/04/17 12:29 Last Admin: 05/23/17 09:40 Dose: Not Given Miscellaneous (Vte Chemical Prophylaxis Screen/ Admission) 1 ea PRN PRN PRN Reason: PROTOCOL Stop: 07/01/17 14:44 Miscellaneous (Amikacin Iv Per Pharmacy) 1 ea MC PRN PRN PRN Reason: PROTOCOL Stop: 07/13/17 18:39 Miscellaneous (Probiotic Screen) 1 ea MC PRN PRN PRN Reason: PROTOCOL Stop: 07/15/17 10:37 Miscellaneous (Tpn Per Pharmacy) 1 ea PRN PRN PRN Reason: PROTOCOL Stop: 07/17/17 15:12 Morphine Sulfate (Morphine) 2 mg IVP Q4H PRN PRN Reason: PAIN Stop: 07/11/17 16:49 Last Admin: 05/23/17 10:40 Dose: 2 mg Sulfacetamide Sodium (Sulamyd 10% Oph Soln) 1 drop EACH EYE Q6HR [facility] Stop: 07/16/17 11:59 Last Admin: 05/23/17 12:30 Dose: 1 drop General: Other (sedated and intubated.) HEENT: Atraumatic, PERRLA, EOMI, Mucous membr. moist/pink, Other (NG tube+) Neck: Supple, +2 carotid pulse wo bruit, Other (tracheostomy noted.) Cardiovascular: Regular rate, Normal S1, Normal S2 Lungs: Other (diffuse rhonchi.) Abdomen: Soft, Other ( wound VAC anterior open abdominal wall wound. L colostomy no out put.) Extremities: Edema, Other (no edema and cyanosis.) Neurological: Reflexes 2+, Other (Patient is trying to follow commands.) Psych/Mental Status: Other (Sedated) - Procedures Procedures: Procedures Procedure Code Date BYPASS SIGMOID COLON TO CUTANEOUS, OPEN APPROACH [id number] 04/14/17 BYPASS TRACHEA TO CUTANEOUS WITH TRACH DEV, OPEN APPROACH [id number] 04/14/17 INCISION OF WINDPIPE 36180 04/14/17 INSERT EMERGENCY AIRWAY 48855 04/14/17 INSERTION OF ENDOTRACHEAL AIRWAY INTO TRACHEA, VIA OPENING [id number] 04/14/17 INSERTION OF INFUSION DEV INTO SUP VENA CAVA, PERC APPROACH [id number] 04/14/17 PARTIAL REMOVAL OF COLON 60334 04/14/[address] PL[address] CATHETER IN VEIN 43907 04/14/17 RESECTION OF SIGMOID COLON, OPEN APPROACH [id number] 04/14/17 RESPIRATORY VENTILATION, 24-96 CONSECUTIVE HOURS [id number] 04/14/17 VENT MGMT INPAT INIT DAY 03368 04/14/17 VENT MGMT INPAT SUBQ DAY 48130 04/14/17 Assessment/Plan - Problem List Patient Problems: All Active Problems Abscess of sigmoid colon due to diverticulitis (Acute) K57.20 Diverticulitis of sigmoid colon (Acute) K57.32 Obesity (Acute) E66.9 Perforation of sigmoid colon due to diverticulitis (Acute) K57.20 Peritonitis (acute) generalized (Acute) K65.0 - Assessment Assessment: Current Active Problems Problem Status Onset Abscess of sigmoid colon due to diverticulitis Acute Diverticulitis of sigmoid colon Acute Obesity Acute Perforation of sigmoid colon due to diverticulitis Acute Peritonitis (acute) generalized Acute Perforated diverticulitis status post expiratory laparotomy and colostomy placement. Postoperative respiratory failure on vent status post tracheostomy. Obesity. MDROs organisms positive culture. ARDS. Polymicrobial peritonitis due to perforation.. Asthma. SVT currently on Cardizem drip Electrolyte imbalance. SEKOU . Electrolyte imbalance Hypernatremia. Encephalopathy due to metabolic and infectious Open surgical abdominal wound with wound VAC. Altered mental status secondary to metabolic and infectious encephalopathy. Postop anemia. - Plan Plan: ICU status. Vent support. Nebulizer treatment. Pulmonary toilet. Patient will require long-term acute care, which I discussed with patient's family. IV antibiotics as per ID. TPN. Renal consult and follow-up. Corrected electrolytes. PEG this week. Rate control with cardizem drip. Blood pressure control Wound care with wound VAC Surgical follow-up ID follow-up. Cardiology follow-up Pulmonary follow-up. Symptoms management. Medication management. IV PPI. Monitor lab. Guarded prognosis. Chronic management of his medical illnesses. Care plan discussed with RN. Nutritional Asmnt/Malnutr-PDOC - Dietary Evaluation Malnutrition Findings (Please click <Entered> for more info): Nutritional Asmnt/Malnutrition Start: 04/19/17 14: 21 Text: Status: Complete Freq: Document 04/19/17 14:21 GSUN (Rec: 04/19/17 14:58 [id number]) Nutritional Asmnt/Malnutrition Patient General Information Nutritional Screening Moderate Risk Screening Diagnosis Sepsis, diverticulitis, peritonitis Pertinent Medical Hx/Surgical Hx Asthma, diverticulosis Subjective Information 56 year old male frome home. Pt was restless, moving extremities during visit. 04/14 : sigmoid colectomy, end colostomy, abscess drainage, diffuse peritontis. 04/16: pt started PPN. 04/17: central line and started on TPN. Spoke to family at bedside, explained parenteral nutrition , family undersoto and has no further question at this time. Weight discrepancies noted in EMR, family does not know UBW , estimated nutritional needs based Current Diet Order/ Nutrition Support TPN D10% AA4.25% at 90ml/hr with IL20% 150ml, providing 1401.6kcal Pertinent Medications Dilaudid, Novolog, Culturelle, Magnesium Sulfate, Vancomycin , TPN, Morphine, Multivitamins , Zofran, Protonix, Nacl0.9% Pertinent Labs 04/14: triglycerides 106, total bilirubin 1.1H, glucose 116H 04/17: magnesium 2.5, phsophorus 3.2 04/19: magnesium 1.8L, phosphorus 2.4L, BUN 28H, creatinine 1.3, glucose 154H, total bilirubin 1.1H, triglycerides 238H Nutritional Hx/Data Height 1.7 m Height (Calculated Centimeters) 170.2 Current Weight (lbs) 95.254 kg Weight (Calculated Kilograms) 95.3 Weight (Calculated Grams) 66493.4 [place] Body Weight 148 Weight Status Overweight GI Symptoms Skin Integrity/Comment: [place] 14. Facial non-pitting 1+, bilateral hands pitting 1+ Estimated Nutritional Goals Calories/Kcals/Kg IBW 148/67.3kg Kcals Calculated 2019-2356kcal (30-35kcal/kg) Protein Calculated 101-135g (1.5-2g/kg) Fluid: ml Per MD Nutritional Problem 1. Problem Problem Altered GI function related to Etiology abscess and perforation of sigmoid colon due to diverticulitis aeb Signs/Symptoms: post-operative, on TPN Intervention/Recommendation Comments 1. Recommend TPN D15% AA5.5% at 100ml/hr with IL20% 150ml, providing 2400ml total volume, 2052kcal, 132g protein, meeting 100% of estimated nutritional needs. Carb load 2 .6mg/kg/min (using 210lb adm weight). 2. Monitor for possible refeeding syndrome, 04/18: phsophorus 2.1L, 04/19: magnesium 1.9. 3. Monitor triglycerides, total bilirubin, glucose, renal labs. Expected Outcomes/Goals Expected Outcomes/Goals 1. Pt to meet 100% of estimated nutritional needs on TPN.
[2017-05-23] MEDS: Levofloxacin 250mg/50mL 250 MG/50 ML BAG IV SCH (17:37)
--- NOTE | 2017-05-23 23:32 | Progress Notes ---
DATE: 05/23/2017 PROBLEM LIST: 1. Persistent respiratory failure. 2. Persistent encephalopathy. 3. Persistent abdominal wall guarding, status post surgery. SYMPTOMS: Nil. Barely opens eyes. No respiratory distress. OBJECTIVE: GENERAL: Currently in cooling mattress. VITAL SIGNS: Temperature is 97.5, blood pressure 103/57, saturation 100% on 30% of oxygen. ENT: Shows no new changes. CHEST: Shows diminished air entry. No other adventitious breath sounds. ABDOMEN: Still shows guarding. EXTREMITIES: Show no peripheral edema. LABORATORY DATA: White count is 9.3, hemoglobin 9.5. ASSESSMENT: The patient clinically status quo, chronically septic encephalopathy, persistent respiratory failure with previous history suggestive of obstructive sleep apnea syndrome. PLAN AND SUGGESTIONS: We will go ahead and continue current treatment respiratory botello and go from there. JOB# [id number]
[2017-05-24] MEDS: Morphine Sulfate 4 mg/mL 1mL Syr IVP PRN ×4 (00:10→22:06)
[2017-05-24] MEDS: INSULIN ASPART SLIDING SCALE 100 UNITS/ML UNIT SUBQ SCH ×4 (00:40→18:01)
[2017-05-24] MEDS: Albuterol/Ipratropium Neb 3 ML AERS HHN SCH ×5 (02:54→18:44)
[2017-05-24] MEDS: Metoclopramide 5 mg/mL 2mL Vial IVP SCH ×3 (05:02→20:29)
[2017-05-24 05:13] LABS: HEMOGLOBIN 8.9 gm/dL (13.2-17.3); RED CELL DISTRIBUTION WIDTH 18.3 % (11.5-20.0)
[2017-05-24 05:22] LABS: HEMATOCRIT 27.3 % (39.0-49.0); MEAN CORPUSCULAR HEMOGLOBIN 26.7 pg (26.0-30.0); MEAN CORPUSCULAR HGB CONC 32.6 pg (28.0-36.0); PLATELET COUNT 307 Th/cmm (150-400); RED BLOOD COUNT 3.33 Mil/cmm (4.30-5.70); WHITE BLOOD COUNT 9.2 Th/cmm (4.8-10.8)
[2017-05-24 05:26] LABS: INR 1.25 (0.5-1.4); PROTHROMBIN TIME (TEST) 13.2 SECONDS (9.5-11.5)
[2017-05-24 05:28] LABS: ALB/GLOB RATIO 0.5 (1.0-1.8); ALKALINE PHOSPHATASE 266 U/L (34-104); ANION GAP 6.3 (7.0-16.0); BILIRUBIN,DIRECT 0.46 mg/dL (0.0-0.2); BUN - UREA NITROGEN 77 mg/dL (7-25); BUN/CREATININE RATIO 51.3; CALCIUM SERUM 9.5 mg/dL (8.6-10.3); CARBON DIOXIDE 24.8 mEq/L (21.0-31.0); CHLORIDE 118 mEq/L (98-107); CREATININE - SERUM 1.5 mg/dL (0.7-1.3); GLUCOSE 148 mg/dL (70-105); POTASSIUM SERUM 4.1 mEq/L (3.5-5.1); SGOT 75 U/L (13-39); SGPT/ALT 40 U/L (7-52); SODIUM SERUM 145 mEq/L (136-145)
[2017-05-24] MEDS: Budesonide 0.5 Mg/2 mL Ud HHN SCH ×2 (06:48→18:44)
[2017-05-24 07:50] LABS: BAND NEUTROPHILE 2 % (0-10); EOSINOPHIL 23 % (0-5); NEUTROPHILS 35 % (40-80); TOTAL CELLS COUNTED 100
[2017-05-24 07:52] LABS: ANISOCYTOSIS 1+; PLATELET ESTIMATE ADEQUATE (NORMAL); PLATELET MORPHOLOGY GIANT PLATELETS SEEN (NORMAL)
[2017-05-24] MEDS: cefTAZidime 1 GM in Sodium Chloride 0.9% 50 ML IV SCH ×2 (08:15→21:30)
[2017-05-24] MEDS: Chlorhexidine Gluconate 0.12% 15mL Mouthwash MM SCH ×2 (08:25→20:47)
[2017-05-24] MEDS: Venelex 60gm Tube TP SCH (09:23)
--- NOTE | 2017-05-24 09:23 | General Progress Note ---
Subjective - Review of Systems Subjective: Patient is seen and examined. Patient currently on vent. Patient is alert and trying to follow commands. I did discuss with RN about patient's treatment plan. Chart reviewed. Objective - Results Result Diagrams: 05/24/17 04:45 05/24/17 04:45 Recent Labs: Laboratory Last Values WBC 9.2 Th/cmm (4.8-10.8) 05/24/17 04:45 RBC 3.33 Mil/cmm (4.30-5.70) L 05/24/17 04:45 Hgb 8.9 gm/dL (13.2-17.3) L 05/24/17 04:45 Hct 27.3 % (39.0-49.0) L 05/24/17 04:45 MCV 82.0 fl (80-99) 05/24/17 04:45 MCH 26.7 pg (26.0-30.0) 05/24/17 04:45 MCHC Differential 32.6 pg (28.0-36.0) 05/24/17 04:45 RDW 18.3 % (11.5-20.0) 05/24/17 04:45 Plt Count 307 Th/cmm (150-400) 05/24/17 04:45 MPV 10.0 fl 05/24/17 04:45 Neutrophils % 61.3 % (40.0-80.0) 05/15/17 04:29 Band Neutrophils % 2 % (0-10) 05/24/17 04:45 Lymphocytes % 17.3 % (20.0-50.0) L 05/15/17 04:29 Monocytes % 8.6 % (2.0-10.0) 05/15/17 04:29 Eosinophils % 12.3 % (0.0-5.0) H 05/15/17 04:29 Basophils % 0.5 % (0.0-2.0) 05/15/17 04:29 Neutrophils (Manual) 35 % (40-80) L 05/24/17 04:45 Lymphocytes 26 % (20-50) 05/24/17 04:45 Monocytes 14 % (2-10) H 05/24/17 04:45 Eosinophils 23 % (0-5) H 05/24/17 04:45 Basophils 1 % (0-3) 05/19/17 05:15 Metamyelocytes 1 % (0-0) H 04/22/17 05:04 Atypical Lymphocytes 1 % 05/21/17 04:30 Platelet Estimate ADEQUATE (NORMAL) 05/24/17 04:45 Platelet Morphology GIANT PLATELETS SEEN (NORMAL) 05/24/17 04:45 Anisocytosis 1+ 05/24/17 04:45 Microcytosis 1+ 05/02/17 05:15 RBC Morph Micro Appear ABNORMAL (NORMAL) 05/24/17 04:45 ESR > 140 mm/hr (0-20) H 04/20/17 07:00 Plt Count 276 Th/cmm (150-750) 05/19/17 07:37 PT 13.2 SECONDS (9.5-11.5) H 05/24/17 04:45 INR 1.25 (0.5-1.4) 05/24/17 04:45 PTT (Actin FS) 34.8 SECONDS (26.0-38.0) 05/19/17 07:37 Fibrinogen 222.0 mg/dL (200.0-400.0) 05/19/17 07:37 D-Dimer 3160 ng/mL (100-400) H 05/19/17 07:37 Specimen Source Arterial 05/22/17 09:00 Sample Site Left Radial 05/22/17 09:00 pH 7.53 (7.35-7.45) H 05/22/17 09:00 pCO2 30.0 mmHg (35.0-45.0) L 05/22/17 09:00 pO2 128.0 mmHg (80.0-100.0) H 05/22/17 09:00 HCO3 27.3 mEq/L (20.0-26.0) H 05/22/17 09:00 Base Excess 3.0 mEq/L (-3.0-3.0) 05/22/17 09:00 O2 Saturation 99.0 % (92.0-100.0) 05/22/17 09:00 Chau Test YES 05/22/17 09:00 Vent Rate 16 05/22/17 09:00 Inspired O2 30 05/22/17 09:00 Tidal Volume 650 05/22/17 09:00 PEEP 3 05/22/17 09:00 Pressure (ins/psv/peep) NA 05/22/17 09:00 Critical Value SH 05/22/17 09:00 Sodium 145 mEq/L (136-145) 05/24/17 04:45 Potassium 4.1 mEq/L (3.5-5.1) 05/24/17 04:45 Chloride 118 mEq/L (98-107) H 05/24/17 04:45 Carbon Dioxide 24.8 mEq/L (21.0-31.0) 05/24/17 04:45 Anion Gap 6.3 (7.0-16.0) L 05/24/17 04:45 BUN 77 mg/dL (7-25) H 05/24/17 04:45 Creatinine 1.5 mg/dL (0.7-1.3) H 05/24/17 04:45 Est GFR ( Amer) > 60.0 ml/min (>90) 05/24/17 04:45 Est GFR (Non-Af Amer) 51.3 ml/min 05/24/17 04:45 BUN/Creatinine Ratio 51.3 05/24/17 04:45 Glucose 148 mg/dL (70-105) H 05/24/17 04:45 POC Glucose 163 MG/DL (70 - 105) H 05/23/17 17:40 Hemoglobin A1c % 6.5 % (4.0-6.0) H 05/22/17 07:52 Whole Bld Lactic Acid 1.66 mmol/L (0.60-1.99) 05/12/17 04:40 Uric Acid 3.6 mg/dL (4.4-7.6) L 04/20/17 07:00 Calcium 9.5 mg/dL (8.6-10.3) 05/24/17 04:45 Phosphorus 3.0 mg/dL (2.5-5.0) 05/23/17 04:50 Magnesium 2.3 mg/dL (1.9-2.7) 05/23/17 04:50 Total Bilirubin 1.0 mg/dL (0.3-1.0) 05/24/17 04:45 Direct Bilirubin 0.46 mg/dL (0.0-0.2) H 05/24/17 04:45 AST 75 U/L (13-39) H 05/24/17 04:45 ALT 40 U/L (7-52) 05/24/17 04:45 Alkaline Phosphatase 266 U/L (34-104) H 05/24/17 04:45 Ammonia 50 umol/L (16-53) 05/24/17 04:45 Creatine Kinase 136 U/L (30-223) 04/14/17 14:55 Troponin I 0.01 ng/mL (0.01-0.05) 04/22/17 05:04 C-Reactive Protein 27.5 mg/dL (0.0-0.9) H 05/15/17 04:29 B-Natriuretic Peptide 33.7 pg/mL (5.0-100.0) 05/24/17 04:45 Total Protein 6.5 gm/dL (6.0-8.3) 05/24/17 04:45 Albumin 2.1 gm/dL (4.2-5.5) L 05/24/17 04:45 Globulin 4.4 gm/dL 05/24/17 04:45 Albumin/Globulin Ratio 0.5 (1.0-1.8) L 05/24/17 04:45 Prealbumin 7 mg/dL (10-36) L 05/15/17 04:29 Triglycerides 271 mg/dL (<150) H 05/20/17 04:30 Cholesterol 55 mg/dL (<200) 05/20/17 04:30 LDL Cholesterol Direct 38 mg/dL (75-193) L 04/14/17 14:55 HDL Cholesterol 13 mg/dL (23-92) L 04/14/17 14:55 Amylase 53 U/L (29-103) 05/09/17 06:00 Lipase 85 U/L (11-82) H 05/09/17 06:00 Vitamin D 25-Hydroxy 25.8 ng/mL (30.0-100.0) L 05/18/17 04:50 Procalcitonin SEE REF LAB REPORT 05/05/17 04:35 PTH Interpretation (()) 05/18/17 04:50 PTH Intact <6 pg/mL (15-65) L 05/18/17 04:50 Calcium (PTH Intact) 9.6 mg/dL (8.7-10.2) 05/18/17 04:50 Urine Source [place] 05/18/17 16:30 Urine Color YELLOW 05/18/17 16:30 Urine Clarity CLOUDY (CLEAR) 05/18/17 16:30 Urine pH 5.5 (4.6 - 8.0) 05/18/17 16:30 Ur Specific [place] 1.010 (1.005-1.030) 05/18/17 16:30 Urine Protein NEGATIVE mg/dL (NEGATIVE) 05/18/17 16:30 Urine Glucose (UA) NEGATIVE mg/dL (NEGATIVE) 05/18/17 16:30 Urine Ketones NEGATIVE mg/dL (NEGATIVE) 05/18/17 16:30 Urine Blood MODERATE (NEGATIVE) H 05/18/17 16:30 Urine Nitrate NEGATIVE (NEGATIVE) 05/18/17 16:30 Urine Bilirubin NEGATIVE (NEGATIVE) 05/18/17 16:30 Urine Urobilinogen 0.2 E.U./dL (0.2 - 1.0) 05/18/17 16:30 Ur Leukocyte Esterase TRACE (NEGATIVE) H 05/18/17 16:30 Urine RBC 10-25 /hpf (0-5) H 05/18/17 16:30 Urine WBC 6-10 /hpf (0-5) H 05/18/17 16:30 Ur Epithelial Cells FEW /lpf (FEW) 05/18/17 16:30 Amorphous Sediment MANY URATES (NONE SEEN) 04/14/17 15:05 Urine Bacteria NONE SEEN /hpf (NONE SEEN) 05/18/17 16:30 Hyaline Casts 5-10 /lpf (0-2) H 05/18/17 16:30 Urine Sperm MANY /hpf (NONE SEEN) 05/18/17 16:30 Amikacin Peak 23.4 ug/mL (20.0-30.0) 05/19/17 16:02 Amikacin Trough 8.6 ug/mL (1.0-8.0) H 05/19/17 13:30 Random Amikacin 6.7 ug/ml (1.0-30.0) 05/17/17 04:25 Vancomycin Trough 13.5 ug/mL (10-20) 04/19/17 19:20 Helicobacter pylori Ab NEGATIVE (NEGATIVE) 05/04/17 10:05 Blood Type O POSITIVE 05/02/17 07:12 Antibody Screen NEGATIVE 05/02/17 07:12 Crossmatch See Detail 05/02/17 07:12 - Physical Exam Vitals and I&O: Vital Signs Temp 98.7 F 05/24/17 04:00 Pulse 89 05/24/17 08:57 Resp 20 05/24/17 06:53 BP 121/61 05/24/17 06:53 Pulse Ox 100 05/24/17 08:57 Intake & Output 05/23/17 05/24/17 05/24/17 18:59 06:59 18:59 Intake Total 4257.200 1489 Output Total 1800 1650 Balance 2457.200 -161 Weight (lbs) 100.499 kg 99.518 kg Intake: Intake, IV Amount 3057.200 289 Amikacin 300 mg In 101.2 Dextrose 5% 100 ml @ 100 mls/hr IV Q12H [facility] Rx#: [id number] Dextrose 5% 1,000 ml @ 50 526.667 mls/hr IV .Q20H [facility] Rx#: [id number] Levofloxacin 250mg/50mL 50 250 mg In 50 ml @ 50 mls/ hr IV Q24HR [facility] Rx#: [id number] Multivitamin Inj 10 ml In 2368.333 Dextrose 70% 1,740 ml In Amino Acids 10% 500 ml In Intralipids 20% 150 ml @ 100 mls/hr IV .Q24H [facility] Rx#:[id number] Tigecycline 50 mg In 11 189 Sodium Chloride 0.9% 100 ml @ 100 mls/hr IV Q12HR [facility] Rx#:[id number] cefTAZidime 1 gm In 50 50 Sodium Chloride 0.9% 50 ml @ Per Protocol IV Q12HR [facility] Rx#:[id number] TPN/PPN 1200 1200 Output: Gastric Drainage 200 50 Urine 1600 1600 Other: # Bowel Movements 0 Stool Characteristics Liquid Green Active Medications: Current Medications Acetaminophen (Tylenol 650mg/20.3ml Suspension) 650 mg NG Q6H PRN PRN Reason: FEVER/PAIN Stop: 06/21/17 17:45 Last Admin: 05/15/17 09:50 Dose: 650 mg Albuterol/Ipratropium (Duoneb Neb) 3 ml HHN Q4HRT [facility] Stop: 06/15/17 14:59 Last Admin: 05/24/17 06:48 Dose: 3 ml Amiodarone HCl (Cordarone) 200 mg NG BID [facility] Stop: 06/24/17 23:14 Last Admin: 05/23/17 17:43 Dose: Not Given Budesonide (Pulmicort) 0.5 mg HHN BIDRT [facility] Stop: 06/15/17 18:59 Last Admin: 05/24/17 06:48 Dose: 0.5 mg Chlorhexidine Gluconate (Peridex) 15 ml MM 0800,2000 [facility] Stop: 06/30/17 19:59 Last Admin: 05/23/17 20:44 Dose: 15 ml Enalaprilat (Vasotec) 2.5 mg IVP Q4HR PRN PRN Reason: SBP>150 Stop: 07/06/17 15:59 Famotidine (Pepcid) 20 mg IVP DAILY [facility] Stop: 07/18/17 08:59 Last Admin: 05/23/17 09:30 Dose: 20 mg Furosemide (Lasix) 40 mg IVP BID [facility] Stop: 07/12/17 16:59 Last Admin: 05/23/17 17:43 Dose: Not Given Multivitamins/Minerals 10 ml/Dextrose/ Amino Acids/Electrolytes/ Fat Emulsion Intravenous 2,400 mls @ 100 mls/hr IV .Q24H [facility] Stop: 06/23/17 15:59 Last Admin: 05/23/17 15:41 Dose: 100 mls/hr Diltiazem HCl 125 mg/ Dextrose 125 mls @ 10 mls/hr IV TITR ARIAN; 10 MG/HR PRN Reason: Protocol Stop: 07/06/17 11:14 Last Titration: 05/11/17 18:00 Dose: 0 mg/hr, 0 mls/hr Tigecycline 50 mg/ Sodium (Chloride) 100 mls @ 100 mls/hr IV Q12HR [facility] Stop: 07/13/17 20:59 Last Infusion: 05/23/17 21:50 Dose: Infused Ceftazidime 1 gm/ Sodium (Chloride) 50 mls @ 0 mls/hr IV Q12HR [facility] PRN Reason: Per Protocol Stop: 07/16/17 20:59 Last Infusion: 05/23/17 22:30 Dose: Infused Levofloxacin (Levaquin Pb) 250 mg in 50 mls @ 50 mls/hr IV Q24HR [facility] Stop: 07/17/17 17:59 Last Infusion: 05/23/17 20:04 Dose: Infused Dextrose (D5w) 1,000 mls @ 50 mls/hr IV .Q20H [facility] Stop: 07/18/17 10:05 Last Admin: 05/23/17 15:45 Dose: 50 mls/hr Norepinephrine Bitartrate 4 mg (/ Dextrose) 254 mls @ 15.24 mls/hr IV TITR PRN ; Protocol; 4 MCG/MIN PRN Reason: BP MAINTENANCE (PER PROTOCOL) Stop: 07/18/17 10:59 Last Titration: 05/20/17 16:00 Dose: 0 mcg/min, 0 mls/hr Amikacin Sulfate 300 mg/ (Dextrose) 101.2 mls @ 100 mls/hr IV Q12H [facility] Stop: 07/20/17 13:59 Last Admin: 05/24/17 01:37 Dose: 100 mls/hr Insulin Aspart (Novolog Insulin Sliding Scale) 0 units SUBQ Q6HR [facility] PRN Reason: Protocol Stop: 07/17/17 11:59 Last Admin: 05/24/17 05:35 Dose: Not Given Lactobacillus Rhamnosus (Culturelle) 1 each PO DAILY [facility] Stop: 07/16/17 08:59 Last Admin: 05/23/17 09:10 Dose: Not Given Metoclopramide HCl (Reglan) 10 mg IVP Q8HR [facility] Stop: 07/06/17 20:59 Last Admin: 05/24/17 05:02 Dose: 10 mg Metoprolol Tartrate (Lopressor) 25 mg PO BID [facility] Stop: 06/26/17 08:59 Last Admin: 05/23/17 17:42 Dose: Not Given Mineral Oil (Mineral Oil 30 Ml) 30 ml NG DAILY [facility] Stop: 07/04/17 12:29 Last Admin: 05/23/17 09:40 Dose: Not Given Miscellaneous (Vte Chemical Prophylaxis Screen/ Admission) 1 ea MC PRN PRN PRN Reason: PROTOCOL Stop: 07/01/17 14:44 Miscellaneous (Amikacin Iv Per Pharmacy) 1 ea MC PRN PRN PRN Reason: PROTOCOL Stop: 07/13/17 18:39 Miscellaneous (Probiotic Screen) 1 ea MC PRN PRN PRN Reason: PROTOCOL Stop: 07/15/17 10:37 Miscellaneous (Tpn Per Pharmacy) 1 ea MC PRN PRN PRN Reason: PROTOCOL Stop: 07/17/17 15:12 Morphine Sulfate (Morphine) 2 mg IVP Q4H PRN PRN Reason: PAIN Stop: 07/11/17 16:49 Last Admin: 05/24/17 00:10 Dose: 2 mg Sulfacetamide Sodium (Sulamyd 10% Ophth Soln) 1 drop EACH EYE Q6HR [facility] Stop: 07/16/17 11:59 Last Admin: 05/24/17 05:02 Dose: 1 drop General: Other (sedated and intubated.) HEENT: Atraumatic, PERRLA, EOMI, Mucous membr. moist/pink, Other (NG tube+) Neck: Supple, +2 carotid pulse wo bruit, Other (tracheostomy noted.) Cardiovascular: Regular rate, Normal S1, Normal S2 Lungs: Other (diffuse rhonchi.) Abdomen: Soft, Other ( wound VAC anterior open abdominal wall wound. L colostomy no out put.) Extremities: Edema, Other (no edema and cyanosis.) Neurological: Reflexes 2+, Other (Patient is trying to follow commands.) Psych/Mental Status: Other (Sedated) - Procedures Procedures: Procedures Procedure Code Date BYPASS SIGMOID COLON TO CUTANEOUS, OPEN APPROACH [id number] 04/14/17 BYPASS TRACHEA TO CUTANEOUS WITH TRACH DEV, OPEN APPROACH [id number] 04/14/17 INCISION OF WINDPIPE 68504 04/14/17 INSERT EMERGENCY AIRWAY 14208 04/14/17 INSERTION OF ENDOTRACHEAL AIRWAY INTO TRACHEA, VIA OPENING [id number] 04/14/17 INSERTION OF INFUSION DEV INTO SUP VENA CAVA, PERC APPROACH [id number] 04/14/17 PARTIAL REMOVAL OF COLON 40272 04/14/[address] PL[address] CATHETER IN VEIN 46016 04/14/17 RESECTION OF SIGMOID COLON, OPEN APPROACH [id number] 04/14/17 RESPIRATORY VENTILATION, 24-96 CONSECUTIVE HOURS [id number] 04/14/17 VENT MGMT INPAT INIT DAY 86393 04/14/17 VENT MGMT INPAT SUBQ DAY 74338 04/14/17 Assessment/Plan - Problem List Patient Problems: All Active Problems Abscess of sigmoid colon due to diverticulitis (Acute) K57.20 Diverticulitis of sigmoid colon (Acute) K57.32 Obesity (Acute) E66.9 Perforation of sigmoid colon due to diverticulitis (Acute) K57.20 Peritonitis (acute) generalized (Acute) K65.0 - Assessment Assessment: Current Active Problems Problem Status Onset Abscess of sigmoid colon due to diverticulitis Acute Diverticulitis of sigmoid colon Acute Obesity Acute Perforation of sigmoid colon due to diverticulitis Acute Peritonitis (acute) generalized Acute Perforated diverticulitis status post expiratory laparotomy and colostomy placement. Postoperative respiratory failure on vent status post tracheostomy. Obesity. MDROs organisms positive culture. ARDS. Polymicrobial peritonitis due to perforation.. Asthma. Abnormal liver function test. SVT currently on Cardizem drip Electrolyte imbalance. SEKOU slowly improving. . Electrolyte imbalance Hypernatremia. Encephalopathy due to metabolic and infectious Open surgical abdominal wound with wound VAC. Altered mental status secondary to metabolic and infectious encephalopathy with slow improvement. Postop anemia. - Plan Plan: ICU status. Vent support. Nebulizer treatment. Pulmonary toilet. Patient will require long-term acute care, which I discussed with patient's family. IV antibiotics as per ID. TPN. Renal consult and follow-up. Corrected electrolytes. PEG this week. Rate control with cardizem drip. Blood pressure control Wound care with wound VAC Surgical follow-up ID follow-up. Cardiology follow-up Pulmonary follow-up. Symptoms management. Medication management. IV PPI. Monitor lab. Guarded prognosis. Chronic management of his medical illnesses. Care plan discussed with RN. Nutritional Asmnt/Malnutr-PDOC - Dietary Evaluation Malnutrition Findings (Please click <Entered> for more info): Nutritional Asmnt/Malnutrition Start: 04/19/17 14: 21 Text: Status: Complete Freq: Document 04/19/17 14:21 GSUN (Rec: 04/19/17 14:58 [id number]) Nutritional Asmnt/Malnutrition Patient General Information Nutritional Screening Moderate Risk Screening Diagnosis Sepsis, diverticulitis, peritonitis Pertinent Medical Hx/Surgical Hx Asthma, diverticulosis Subjective Information 56 year old male frome home. Pt was restless, moving extremities during visit. 04/14 : sigmoid colectomy, end colostomy, abscess drainage, diffuse peritontis. 04/16: pt started PPN. 04/17: central line and started on TPN. Spoke to family at bedside, explained parenteral nutrition , family undersoto and has no further question at this time. Weight discrepancies noted in EMR, family does not know UBW , estimated nutritional needs based Current Diet Order/ Nutrition Support TPN D10% AA4.25% at 90ml/hr with IL20% 150ml, providing 1401.6kcal Pertinent Medications Dilaudid, Novolog, Culturelle, Magnesium Sulfate, Vancomycin , TPN, Morphine, Multivitamins , Zofran, Protonix, Nacl0.9% Pertinent Labs 04/14: triglycerides 106, total bilirubin 1.1H, glucose 116H 04/17: magnesium 2.5, phsophorus 3.2 04/19: magnesium 1.8L, phosphorus 2.4L, BUN 28H, creatinine 1.3, glucose 154H, total bilirubin 1.1H, triglycerides 238H Nutritional Hx/Data Height 1.7 m Height (Calculated Centimeters) 170.2 Current Weight (lbs) 95.254 kg Weight (Calculated Kilograms) 95.3 Weight (Calculated Grams) 43028.4 [place] Body Weight 148 Weight Status Overweight GI Symptoms Skin Integrity/Comment: [place] 14. Facial non-pitting 1+, bilateral hands pitting 1+ Estimated Nutritional Goals Calories/Kcals/Kg IBW 148/67.3kg Kcals Calculated 2019-2356kcal (30-35kcal/kg) Protein Calculated 101-135g (1.5-2g/kg) Fluid: ml Per MD Nutritional Problem 1. Problem Problem Altered GI function related to Etiology abscess and perforation of sigmoid colon due to diverticulitis aeb Signs/Symptoms: post-operative, on TPN Intervention/Recommendation Comments 1. Recommend TPN D15% AA5.5% at 100ml/hr with IL20% 150ml, providing 2400ml total volume, 2052kcal, 132g protein, meeting 100% of estimated nutritional needs. Carb load 2 .6mg/kg/min (using 210lb adm weight). 2. Monitor for possible refeeding syndrome, 04/18: phsophorus 2.1L, 04/19: magnesium 1.9. 3. Monitor triglycerides, total bilirubin, glucose, renal labs. Expected Outcomes/Goals Expected Outcomes/Goals 1. Pt to meet 100% of estimated nutritional needs on TPN.
[2017-05-24] MEDS: Lactobacillus Rhamnosus 10 Billion CFU Capsule PO SCH (09:25)
[2017-05-24 09:26] LABS: MAGNESIUM 2.4 mg/dL (1.9-2.7); PHOSPHOROUS 3.2 mg/dL (2.5-5.0)
[2017-05-24] MEDS: Dextrose 5% 1,000 ML IV SCH (11:45)
[2017-05-24] MEDS: TPN 10%-70% CUSTOM IV SCH (15:54)
--- NOTE | 2017-05-24 15:55 | GI Progress Note ---
Subjective - Review of Systems Service Date: 05/24/17 Events since last encounter: Pt remains on ventilator and sedated. NO acute events. Objective - Results Result Diagrams: 05/24/17 04:45 05/24/17 04:45 Recent Labs: Laboratory Last Values WBC 9.2 Th/cmm (4.8-10.8) 05/24/17 04:45 RBC 3.33 Mil/cmm (4.30-5.70) L 05/24/17 04:45 Hgb 8.9 gm/dL (13.2-17.3) L 05/24/17 04:45 Hct 27.3 % (39.0-49.0) L 05/24/17 04:45 MCV 82.0 fl (80-99) 05/24/17 04:45 MCH 26.7 pg (26.0-30.0) 05/24/17 04:45 MCHC Differential 32.6 pg (28.0-36.0) 05/24/17 04:45 RDW 18.3 % (11.5-20.0) 05/24/17 04:45 Plt Count 307 Th/cmm (150-400) 05/24/17 04:45 MPV 10.0 fl 05/24/17 04:45 Neutrophils % 61.3 % (40.0-80.0) 05/15/17 04:29 Band Neutrophils % 2 % (0-10) 05/24/17 04:45 Lymphocytes % 17.3 % (20.0-50.0) L 05/15/17 04:29 Monocytes % 8.6 % (2.0-10.0) 05/15/17 04:29 Eosinophils % 12.3 % (0.0-5.0) H 05/15/17 04:29 Basophils % 0.5 % (0.0-2.0) 05/15/17 04:29 Neutrophils (Manual) 35 % (40-80) L 05/24/17 04:45 Lymphocytes 26 % (20-50) 05/24/17 04:45 Monocytes 14 % (2-10) H 05/24/17 04:45 Eosinophils 23 % (0-5) H 05/24/17 04:45 Basophils 1 % (0-3) 05/19/17 05:15 Metamyelocytes 1 % (0-0) H 04/22/17 05:04 Atypical Lymphocytes 1 % 05/21/17 04:30 Platelet Estimate ADEQUATE (NORMAL) 05/24/17 04:45 Platelet Morphology GIANT PLATELETS SEEN (NORMAL) 05/24/17 04:45 Anisocytosis 1+ 05/24/17 04:45 Microcytosis 1+ 05/02/17 05:15 RBC Morph Micro Appear ABNORMAL (NORMAL) 05/24/17 04:45 ESR > 140 mm/hr (0-20) H 04/20/17 07:00 Plt Count 276 Th/cmm (150-750) 05/19/17 07:37 PT 13.2 SECONDS (9.5-11.5) H 05/24/17 04:45 INR 1.25 (0.5-1.4) 05/24/17 04:45 PTT (Actin FS) 34.8 SECONDS (26.0-38.0) 05/19/17 07:37 Fibrinogen 222.0 mg/dL (200.0-400.0) 05/19/17 07:37 D-Dimer 3160 ng/mL (100-400) H 05/19/17 07:37 Specimen Source Arterial 05/22/17 09:00 Sample Site Left Radial 05/22/17 09:00 pH 7.53 (7.35-7.45) H 05/22/17 09:00 pCO2 30.0 mmHg (35.0-45.0) L 05/22/17 09:00 pO2 128.0 mmHg (80.0-100.0) H 05/22/17 09:00 HCO3 27.3 mEq/L (20.0-26.0) H 05/22/17 09:00 Base Excess 3.0 mEq/L (-3.0-3.0) 05/22/17 09:00 O2 Saturation 99.0 % (92.0-100.0) 05/22/17 09:00 Chau Test YES 05/22/17 09:00 Vent Rate 16 05/22/17 09:00 Inspired O2 30 05/22/17 09:00 Tidal Volume 650 05/22/17 09:00 PEEP 3 05/22/17 09:00 Pressure (ins/psv/peep) NA 05/22/17 09:00 Critical Value SH 05/22/17 09:00 Sodium 145 mEq/L (136-145) 05/24/17 04:45 Potassium 4.1 mEq/L (3.5-5.1) 05/24/17 04:45 Chloride 118 mEq/L (98-107) H 05/24/17 04:45 Carbon Dioxide 24.8 mEq/L (21.0-31.0) 05/24/17 04:45 Anion Gap 6.3 (7.0-16.0) L 05/24/17 04:45 BUN 77 mg/dL (7-25) H 05/24/17 04:45 Creatinine 1.5 mg/dL (0.7-1.3) H 05/24/17 04:45 Est GFR ( Amer) > 60.0 ml/min (>90) 05/24/17 04:45 Est GFR (Non-Af Amer) 51.3 ml/min 05/24/17 04:45 BUN/Creatinine Ratio 51.3 05/24/17 04:45 Glucose 148 mg/dL (70-105) H 05/24/17 04:45 POC Glucose 153 MG/DL (70 - 105) H 05/24/17 11:35 Hemoglobin A1c % 6.5 % (4.0-6.0) H 05/22/17 07:52 Whole Bld Lactic Acid 1.66 mmol/L (0.60-1.99) 05/12/17 04:40 Uric Acid 3.6 mg/dL (4.4-7.6) L 04/20/17 07:00 Calcium 9.5 mg/dL (8.6-10.3) 05/24/17 04:45 Phosphorus 3.2 mg/dL (2.5-5.0) 05/24/17 04:45 Magnesium 2.4 mg/dL (1.9-2.7) 05/24/17 04:45 Total Bilirubin 1.0 mg/dL (0.3-1.0) 05/24/17 04:45 Direct Bilirubin 0.46 mg/dL (0.0-0.2) H 05/24/17 04:45 AST 75 U/L (13-39) H 05/24/17 04:45 ALT 40 U/L (7-52) 05/24/17 04:45 Alkaline Phosphatase 266 U/L (34-104) H 05/24/17 04:45 Ammonia 50 umol/L (16-53) 05/24/17 04:45 Creatine Kinase 136 U/L (30-223) 04/14/17 14:55 Troponin I 0.01 ng/mL (0.01-0.05) 04/22/17 05:04 C-Reactive Protein 27.5 mg/dL (0.0-0.9) H 05/15/17 04:29 B-Natriuretic Peptide 33.7 pg/mL (5.0-100.0) 05/24/17 04:45 Total Protein 6.5 gm/dL (6.0-8.3) 05/24/17 04:45 Albumin 2.1 gm/dL (4.2-5.5) L 05/24/17 04:45 Globulin 4.4 gm/dL 05/24/17 04:45 Albumin/Globulin Ratio 0.5 (1.0-1.8) L 05/24/17 04:45 Prealbumin 7 mg/dL (10-36) L 05/15/17 04:29 Triglycerides 397 mg/dL (<150) H 05/24/17 04:45 Cholesterol 83 mg/dL (<200) 05/24/17 04:45 LDL Cholesterol Direct 38 mg/dL (75-193) L 04/14/17 14:55 HDL Cholesterol 13 mg/dL (23-92) L 04/14/17 14:55 Amylase 53 U/L (29-103) 05/09/17 06:00 Lipase 85 U/L (11-82) H 05/09/17 06:00 Vitamin D 25-Hydroxy 25.8 ng/mL (30.0-100.0) L 05/18/17 04:50 Procalcitonin SEE REF LAB REPORT 05/05/17 04:35 PTH Interpretation (()) 05/18/17 04:50 PTH Intact <6 pg/mL (15-65) L 05/18/17 04:50 Calcium (PTH Intact) 9.6 mg/dL (8.7-10.2) 05/18/17 04:50 Urine Source [place] 05/18/17 16:30 Urine Color YELLOW 05/18/17 16:30 Urine Clarity CLOUDY (CLEAR) 05/18/17 16:30 Urine pH 5.5 (4.6 - 8.0) 05/18/17 16:30 Ur Specific [place] 1.010 (1.005-1.030) 05/18/17 16:30 Urine Protein NEGATIVE mg/dL (NEGATIVE) 05/18/17 16:30 Urine Glucose (UA) NEGATIVE mg/dL (NEGATIVE) 05/18/17 16:30 Urine Ketones NEGATIVE mg/dL (NEGATIVE) 05/18/17 16:30 Urine Blood MODERATE (NEGATIVE) H 05/18/17 16:30 Urine Nitrate NEGATIVE (NEGATIVE) 05/18/17 16:30 Urine Bilirubin NEGATIVE (NEGATIVE) 05/18/17 16:30 Urine Urobilinogen 0.2 E.U./dL (0.2 - 1.0) 05/18/17 16:30 Ur Leukocyte Esterase TRACE (NEGATIVE) H 05/18/17 16:30 Urine RBC 10-25 /hpf (0-5) H 05/18/17 16:30 Urine WBC 6-10 /hpf (0-5) H 05/18/17 16:30 Ur Epithelial Cells FEW /lpf (FEW) 05/18/17 16:30 Amorphous Sediment MANY URATES (NONE SEEN) 04/14/17 15:05 Urine Bacteria NONE SEEN /hpf (NONE SEEN) 05/18/17 16:30 Hyaline Casts 5-10 /lpf (0-2) H 05/18/17 16:30 Urine Sperm MANY /hpf (NONE SEEN) 05/18/17 16:30 Amikacin Peak 23.4 ug/mL (20.0-30.0) 05/19/17 16:02 Amikacin Trough 8.6 ug/mL (1.0-8.0) H 05/19/17 13:30 Random Amikacin 6.7 ug/ml (1.0-30.0) 05/17/17 04:25 Vancomycin Trough 13.5 ug/mL (10-20) 04/19/17 19:20 Helicobacter pylori Ab NEGATIVE (NEGATIVE) 05/04/17 10:05 Blood Type O POSITIVE 05/02/17 07:12 Antibody Screen NEGATIVE 05/02/17 07:12 Crossmatch See Detail 05/02/17 07:12 - Physical Exam Vitals and I&O: Vital Signs Temp 97.8 F 05/24/17 14:00 Pulse 99 05/24/17 15:10 Resp 30 05/24/17 14:00 BP 119/62 05/24/17 14:00 Pulse Ox 99 05/24/17 15:10 Intake & Output 05/23/17 05/24/17 05/24/17 18:59 06:59 18:59 Intake Total 4257.200 1590.2 150 Output Total 1800 1650 Balance 2457.200 -59.8 150 Weight (lbs) 100.499 kg 99.518 kg Intake: Intake, IV Amount 3057.200 390.2 150 Amikacin 300 mg In 101.2 101.2 Dextrose 5% 100 ml @ 100 mls/hr IV Q12H [facility] Rx#: [id number] Dextrose 5% 1,000 ml @ 50 526.667 mls/hr IV .Q20H ARIAN Rx#: [id number] Levofloxacin 250mg/50mL 50 250 mg In 50 ml @ 50 mls/ hr IV Q24HR [facility] Rx#: [id number] Multivitamin Inj 10 ml In 2368.333 Dextrose 70% 1,740 ml In Amino Acids 10% 500 ml In Intralipids 20% 150 ml @ 100 mls/hr IV .Q24H [facility] Rx#:[id number] Tigecycline 50 mg In 11 189 100 Sodium Chloride 0.9% 100 ml @ 100 mls/hr IV Q12HR [facility] Rx#:[id number] cefTAZidime 1 gm In 50 50 50 Sodium Chloride 0.9% 50 ml @ Per Protocol IV Q12HR [facility] Rx#:[id number] TPN/PPN 1200 1200 Output: Gastric Drainage 200 50 Urine 1600 1600 Other: # Bowel Movements 0 Stool Characteristics Liquid Green Active Medications: Current Medications Acetaminophen (Tylenol 650mg/20.3ml Suspension) 650 mg NG Q6H PRN PRN Reason: FEVER/PAIN Stop: 06/21/17 17:45 Last Admin: 05/15/17 09:50 Dose: 650 mg Albuterol/Ipratropium (Duoneb Neb) 3 ml HHN Q4HRT [facility] Stop: 06/15/17 14:59 Last Admin: 05/24/17 15:10 Dose: 3 ml Amiodarone HCl (Cordarone) 200 mg NG BID ARIAN Stop: 06/24/17 23:14 Last Admin: 05/24/17 09:25 Dose: Not Given Budesonide (Pulmicort) 0.5 mg HHN BIDRT ARIAN Stop: 06/15/17 18:59 Last Admin: 05/24/17 06:48 Dose: 0.5 mg Chlorhexidine Gluconate (Peridex) 15 ml MM 0800,2000 ARIAN Stop: 06/30/17 19:59 Last Admin: 05/24/17 08:25 Dose: 15 ml Enalaprilat (Vasotec) 2.5 mg IVP Q4HR PRN PRN Reason: SBP>150 Stop: 07/06/17 15:59 Famotidine (Pepcid) 20 mg IVP DAILY ARIAN Stop: 07/18/17 08:59 Last Admin: 05/24/17 09:21 Dose: 20 mg Furosemide (Lasix) 40 mg IVP BID ARIAN Stop: 07/12/17 16:59 Last Admin: 05/24/17 09:21 Dose: 40 mg Multivitamins/Minerals 10 ml/Dextrose/ Amino Acids/Electrolytes/ Fat Emulsion Intravenous 2,400 mls @ 100 mls/hr IV .Q24H [facility] Stop: 06/23/17 15:59 Last Admin: 05/23/17 15:41 Dose: 100 mls/hr Diltiazem HCl 125 mg/ Dextrose 125 mls @ 10 mls/hr IV TITR ARIAN; 10 MG/HR PRN Reason: Protocol Stop: 07/06/17 11:14 Last Titration: 05/11/17 18:00 Dose: 0 mg/hr, 0 mls/hr Tigecycline 50 mg/ Sodium (Chloride) 100 mls @ 100 mls/hr IV Q12HR [facility] Stop: 07/13/17 20:59 Last Infusion: 05/24/17 10:00 Dose: Infused Ceftazidime 1 gm/ Sodium (Chloride) 50 mls @ 0 mls/hr IV Q12HR ARIAN PRN Reason: Per Protocol Stop: 07/16/17 20:59 Last Infusion: 05/24/17 08:45 Dose: Infused Levofloxacin (Levaquin Pb) 250 mg in 50 mls @ 50 mls/hr IV Q24HR [facility] Stop: 07/17/17 17:59 Last Infusion: 05/23/17 20:04 Dose: Infused Dextrose (D5w) 1,000 mls @ 50 mls/hr IV .Q20H ARIAN Stop: 07/18/17 10:05 Last Admin: 05/23/17 15:45 Dose: 50 mls/hr Norepinephrine Bitartrate 4 mg (/ Dextrose) 254 mls @ 15.24 mls/hr IV TITR PRN ; Protocol; 4 MCG/MIN PRN Reason: BP MAINTENANCE (PER PROTOCOL) Stop: 07/18/17 10:59 Last Titration: 05/20/17 16:00 Dose: 0 mcg/min, 0 mls/hr Amikacin Sulfate 300 mg/ (Dextrose) 101.2 mls @ 100 mls/hr IV Q12H ARIAN Stop: 07/20/17 13:59 Last Admin: 05/24/17 13:41 Dose: 100 mls/hr Insulin Aspart (Novolog Insulin Sliding Scale) 0 units SUBQ Q6HR ARIAN PRN Reason: Protocol Stop: 07/17/17 11:59 Last Admin: 05/24/17 12:07 Dose: 2 units Lactobacillus Rhamnosus (Culturelle) 1 each PO DAILY ARIAN Stop: 07/16/17 08:59 Last Admin: 05/24/17 09:25 Dose: Not Given Metoclopramide HCl (Reglan) 10 mg IVP Q8HR ARIAN Stop: 07/06/17 20:59 Last Admin: 05/24/17 12:07 Dose: 10 mg Metoprolol Tartrate (Lopressor) 25 mg PO BID ARIAN Stop: 06/26/17 08:59 Last Admin: 05/24/17 09:26 Dose: Not Given Mineral Oil (Mineral Oil 30 Ml) 30 ml NG DAILY ARIAN Stop: 07/04/17 12:29 Last Admin: 05/24/17 09:26 Dose: Not Given Miscellaneous (Vte Chemical Prophylaxis Screen/ Admission) 1 ea MC PRN PRN PRN Reason: PROTOCOL Stop: 07/01/17 14:44 Miscellaneous (Amikacin Iv Per Pharmacy) 1 ea MC PRN PRN PRN Reason: PROTOCOL Stop: 07/13/17 18:39 Miscellaneous (Probiotic Screen) 1 ea MC PRN PRN PRN Reason: PROTOCOL Stop: 07/15/17 10:37 Miscellaneous (Tpn Per Pharmacy) 1 ea MC PRN PRN PRN Reason: PROTOCOL Stop: 07/17/17 15:12 Morphine Sulfate (Morphine) 2 mg IVP Q4H PRN PRN Reason: PAIN Stop: 07/11/17 16:49 Last Admin: 05/24/17 15:05 Dose: 2 mg Sulfacetamide Sodium (Sulamyd 10% Ophth Soln) 1 drop EACH EYE Q6HR ARIAN Stop: 07/16/17 11:59 Last Admin: 05/24/17 05:02 Dose: 1 drop General: Other (sedated and intubated.) HEENT: Atraumatic, PERRLA, EOMI, Mucous membr. moist/pink, Other (NG tube+) Neck: Supple, +2 carotid pulse wo bruit, Other (tracheostomy noted.) Cardiovascular: Regular rate, Normal S1, Normal S2 Lungs: Other (diffuse rhonchi.) Abdomen: Soft, Other ( wound VAC anterior open abdominal wall wound. L colostomy no out put.) Extremities: Edema, Other (no edema and cyanosis.) Neurological: Reflexes 2+, Other (Patient is trying to follow commands.) Psych/Mental Status: Other (Sedated) - Procedures Procedures: Procedures Procedure Code Date BYPASS SIGMOID COLON TO CUTANEOUS, OPEN APPROACH [id number] 04/14/17 BYPASS TRACHEA TO CUTANEOUS WITH TRACH DEV, OPEN APPROACH [id number] 04/14/17 INCISION OF WINDPIPE 48649 04/14/17 INSERT EMERGENCY AIRWAY 25429 04/14/17 INSERTION OF ENDOTRACHEAL AIRWAY INTO TRACHEA, VIA OPENING [id number] 04/14/17 INSERTION OF INFUSION DEV INTO SUP VENA CAVA, PERC APPROACH [id number] 04/14/17 PARTIAL REMOVAL OF COLON 52638 04/14/17 PL[address] CATHETER IN VEIN 88195 04/14/17 RESECTION OF SIGMOID COLON, OPEN APPROACH [id number] 04/14/17 RESPIRATORY VENTILATION, 24-96 CONSECUTIVE HOURS [id number] 04/14/17 VENT MGMT INPAT INIT DAY 88613 04/14/17 VENT MGMT INPAT SUBQ DAY 58962 04/14/17 Assessment/Plan - Problem List Patient Problems: All Active Problems Abscess of sigmoid colon due to diverticulitis (Acute) K57.20 Diverticulitis of sigmoid colon (Acute) K57.32 Obesity (Acute) E66.9 Perforation of sigmoid colon due to diverticulitis (Acute) K57.20 Peritonitis (acute) generalized (Acute) K65.0 - Assessment Assessment: # s/p ex lap for perforated diverticulitis, now vent dependent # TPN dependent with NG in place - Will plan for EGD and PEG placement on 05/25/17 - Antibiotics are already ordered - Will get pre operative INR Thank you for allowing me to participate in the care of this patient.
[2017-05-24] MEDS: Levofloxacin 250mg/50mL 250 MG/50 ML BAG IV SCH (17:58)
[2017-05-25] MEDS: INSULIN ASPART SLIDING SCALE 100 UNITS/ML UNIT SUBQ SCH ×4 (00:09→17:10)
--- NOTE | 2017-05-25 01:42 | Progress Notes ---
DATE: 05/24/2017 PROBLEM LIST: Persistent toxic, appears to be encephalopathy due to persistent respiratory failure with periods of tachypnea and persistent abdominal guarding, status post previous surgery. SYMPTOMS: Nil. Noncommunicative, not in any acute distress, still on assist control mode of ventilator. PHYSICAL EXAMINATION: VITAL SIGNS: The patient's temperature 97.8, blood pressure 119/62, saturation 100% on 30%. NECK: Veins not visualized. CHEST: Shows diminished air entry with occasional rhonchi. HEART: Regular. ABDOMEN: Still guarding with quite tenderness. LABORATORY DATA: White count is 9.2, hemoglobin 8.7. Electrolytes, BUN is 77 and bilirubin is borderline high with slightly abnormal alkaline phosphatase. ASSESSMENT: The patient is persistently encephalopathic, persistent to me, septic, still has seemingly acute pathology going in the belly, though could not decipher for sure. PLANS AND SUGGESTIONS: We will go ahead and continue current treatment. We will discontinue the patient's thermotic blanket, etc. and see how she does and go from there. JOB# [id number]
[2017-05-25] MEDS: Albuterol/Ipratropium Neb 3 ML AERS HHN SCH ×6 (02:57→22:46)
[2017-05-25 05:19] LABS: HEMATOCRIT 29.1 % (39.0-49.0); HEMOGLOBIN 9.5 gm/dL (13.2-17.3); MEAN CELL VOLUME 82.4 fl (80-99); MEAN CORPUSCULAR HEMOGLOBIN 26.9 pg (26.0-30.0); MEAN CORPUSCULAR HGB CONC 32.6 pg (28.0-36.0); MEAN PLATELET VOLUME 10.3 fl; PLATELET COUNT 293 Th/cmm (150-400); RED BLOOD COUNT 3.54 Mil/cmm (4.30-5.70); RED CELL DISTRIBUTION WIDTH 19.1 % (11.5-20.0)
[2017-05-25] MEDS: Metoclopramide 5 mg/mL 2mL Vial IVP SCH ×3 (05:21→20:38)
[2017-05-25] MEDS: Dextrose 5% 1,000 ML IV SCH (05:25)
[2017-05-25 05:32] LABS: WHITE BLOOD COUNT 11.1 Th/cmm (4.8-10.8)
[2017-05-25 05:41] LABS: INR 1.28 (0.5-1.4); PROTHROMBIN TIME (TEST) 13.5 SECONDS (9.5-11.5)
[2017-05-25 05:48] LABS: ALB/GLOB RATIO 0.4 (1.0-1.8); ANION GAP 9.4 (7.0-16.0); BILIRUBIN,TOTAL 1.1 mg/dL (0.3-1.0); BUN/CREATININE RATIO 45.3; CALCIUM SERUM 9.3 mg/dL (8.6-10.3); CREATININE - SERUM 1.9 mg/dL (0.7-1.3); MAGNESIUM 2.4 mg/dL (1.9-2.7); PHOSPHOROUS 3.3 mg/dL (2.5-5.0); POTASSIUM SERUM 4.4 mEq/L (3.5-5.1)
[2017-05-25 06:30] LABS: EOSINOPHIL 15 % (0-5); NEUTROPHILS 56 % (40-80); TOTAL CELLS COUNTED 100
[2017-05-25 06:31] LABS: ANISOCYTOSIS 1+; PLATELET ESTIMATE ADEQUATE (NORMAL); PLATELET MORPHOLOGY NORMAL (NORMAL)
[2017-05-25] MEDS: Budesonide 0.5 Mg/2 mL Ud HHN SCH ×2 (07:36→18:46)
[2017-05-25] MEDS: cefTAZidime 1 GM in Sodium Chloride 0.9% 50 ML IV SCH ×2 (08:10→20:38)
--- NOTE | 2017-05-25 08:52 | General Progress Note ---
Subjective - Review of Systems Subjective: Patient is seen and examined. Patient currently on vent. Patient spiked temp. patient is going for PEG . I did discuss with RN about patient's treatment plan. Chart reviewed. Objective - Results Result Diagrams: 05/25/17 04:36 05/25/17 04:36 Recent Labs: Laboratory Last Values WBC 11.1 Th/cmm (4.8-10.8) H D 05/25/17 04:36 RBC 3.54 Mil/cmm (4.30-5.70) L 05/25/17 04:36 Hgb 9.5 gm/dL (13.2-17.3) L 05/25/17 04:36 Hct 29.1 % (39.0-49.0) L 05/25/17 04:36 MCV 82.4 fl (80-99) 05/25/17 04:36 MCH 26.9 pg (26.0-30.0) 05/25/17 04:36 MCHC Differential 32.6 pg (28.0-36.0) 05/25/17 04:36 RDW 19.1 % (11.5-20.0) 05/25/17 04:36 Plt Count 293 Th/cmm (150-400) 05/25/17 04:36 MPV 10.3 fl 05/25/17 04:36 Neutrophils % [employer]ORATING MACHINE OPERATOR 05/25/17 04:36 Band Neutrophils % 2 % (0-10) 05/24/17 04:45 Lymphocytes % [employer] DECORATING MACHINE OPERATOR 05/25/17 04:36 Monocytes % [employer] DECORATING MACHINE OPERATOR 05/25/17 04:36 Eosinophils % [employer] DECORATING MACHINE OPERATOR 05/25/17 04:36 Basophils % [employer] DECORATING MACHINE OPERATOR 05/25/17 04:36 Neutrophils (Manual) 56 % (40-80) 05/25/17 04:36 Lymphocytes 20 % (20-50) 05/25/17 04:36 Monocytes 9 % (2-10) 05/25/17 04:36 Eosinophils 15 % (0-5) H 05/25/17 04:36 Basophils 1 % (0-3) 05/19/17 05:15 Metamyelocytes 1 % (0-0) H 04/22/17 05:04 Atypical Lymphocytes 1 % 05/21/17 04:30 Platelet Estimate ADEQUATE (NORMAL) 05/25/17 04:36 Platelet Morphology NORMAL (NORMAL) 05/25/17 04:36 Anisocytosis 1+ 05/25/17 04:36 Microcytosis 1+ 05/02/17 05:15 RBC Morph Micro Appear ABNORMAL (NORMAL) 05/25/17 04:36 ESR > 140 mm/hr (0-20) H 04/20/17 07:00 Plt Count 276 Th/cmm (150-750) 05/19/17 07:37 PT 13.5 SECONDS (9.5-11.5) H 05/25/17 04:36 INR 1.28 (0.5-1.4) 05/25/17 04:36 PTT (Actin FS) 34.3 SECONDS (26.0-38.0) 05/25/17 04:36 Fibrinogen 222.0 mg/dL (200.0-400.0) 05/19/17 07:37 D-Dimer 3160 ng/mL (100-400) H 05/19/17 07:37 Specimen Source Arterial 05/22/17 09:00 Sample Site Left Radial 05/22/17 09:00 pH 7.53 (7.35-7.45) H 05/22/17 09:00 pCO2 30.0 mmHg (35.0-45.0) L 05/22/17 09:00 pO2 128.0 mmHg (80.0-100.0) H 05/22/17 09:00 HCO3 27.3 mEq/L (20.0-26.0) H 05/22/17 09:00 Base Excess 3.0 mEq/L (-3.0-3.0) 05/22/17 09:00 O2 Saturation 99.0 % (92.0-100.0) 05/22/17 09:00 Chau Test YES 05/22/17 09:00 Vent Rate 16 05/22/17 09:00 Inspired O2 30 05/22/17 09:00 Tidal Volume 650 05/22/17 09:00 PEEP 3 05/22/17 09:00 Pressure (ins/psv/peep) NA 05/22/17 09:00 Critical Value SH 05/22/17 09:00 Sodium 142 mEq/L (136-145) 05/25/17 04:36 Potassium 4.4 mEq/L (3.5-5.1) 05/25/17 04:36 Chloride 114 mEq/L (98-107) H 05/25/17 04:36 Carbon Dioxide 23.0 mEq/L (21.0-31.0) 05/25/17 04:36 Anion Gap 9.4 (7.0-16.0) 05/25/17 04:36 BUN 86 mg/dL (7-25) H* 05/25/17 04:36 Creatinine 1.9 mg/dL (0.7-1.3) H 05/25/17 04:36 Est GFR ( Amer) 47.2 ml/min (>90) 05/25/17 04:36 Est GFR (Non-Af Amer) 39.0 ml/min 05/25/17 04:36 BUN/Creatinine Ratio 45.3 05/25/17 04:36 Glucose 184 mg/dL (70-105) H 05/25/17 04:36 POC Glucose 183 MG/DL (70 - 105) H 05/25/17 06:31 Hemoglobin A1c % 6.5 % (4.0-6.0) H 05/22/17 07:52 Whole Bld Lactic Acid 1.66 mmol/L (0.60-1.99) 05/12/17 04:40 Uric Acid 3.6 mg/dL (4.4-7.6) L 04/20/17 07:00 Calcium 9.3 mg/dL (8.6-10.3) 05/25/17 04:36 Phosphorus 3.3 mg/dL (2.5-5.0) 05/25/17 04:36 Magnesium 2.4 mg/dL (1.9-2.7) 05/25/17 04:36 Total Bilirubin 1.1 mg/dL (0.3-1.0) H 05/25/17 04:36 Direct Bilirubin 0.46 mg/dL (0.0-0.2) H 05/24/17 04:45 AST 92 U/L (13-39) H 05/25/17 04:36 ALT 47 U/L (7-52) 05/25/17 04:36 Alkaline Phosphatase 416 U/L (34-104) H 05/25/17 04:36 Ammonia 50 umol/L (16-53) 05/24/17 04:45 Creatine Kinase 136 U/L (30-223) 04/14/17 14:55 Troponin I 0.01 ng/mL (0.01-0.05) 04/22/17 05:04 C-Reactive Protein 27.5 mg/dL (0.0-0.9) H 05/15/17 04:29 B-Natriuretic Peptide 33.7 pg/mL (5.0-100.0) 05/24/17 04:45 Total Protein 6.6 gm/dL (6.0-8.3) 05/25/17 04:36 Albumin 2.0 gm/dL (4.2-5.5) L 05/25/17 04:36 Globulin 4.6 gm/dL 05/25/17 04:36 Albumin/Globulin Ratio 0.4 (1.0-1.8) L 05/25/17 04:36 Prealbumin 10 mg/dL (10-36) 05/24/17 04:45 Triglycerides 397 mg/dL (<150) H 05/24/17 04:45 Cholesterol 83 mg/dL (<200) 05/24/17 04:45 LDL Cholesterol Direct 38 mg/dL (75-193) L 04/14/17 14:55 HDL Cholesterol 13 mg/dL (23-92) L 04/14/17 14:55 Amylase 53 U/L (29-103) 05/09/17 06:00 Lipase 85 U/L (11-82) H 05/09/17 06:00 Vitamin D 25-Hydroxy 25.8 ng/mL (30.0-100.0) L 05/18/17 04:50 Procalcitonin SEE REF LAB REPORT 05/05/17 04:35 PTH Interpretation (()) 05/18/17 04:50 PTH Intact <6 pg/mL (15-65) L 05/18/17 04:50 Calcium (PTH Intact) 9.6 mg/dL (8.7-10.2) 05/18/17 04:50 Urine Source [place] 05/18/17 16:30 Urine Color YELLOW 05/18/17 16:30 Urine Clarity CLOUDY (CLEAR) 05/18/17 16:30 Urine pH 5.5 (4.6 - 8.0) 05/18/17 16:[address] [place] 1.010 (1.005-1.030) 05/18/17 16:30 Urine Protein NEGATIVE mg/dL (NEGATIVE) 05/18/17 16:30 Urine Glucose (UA) NEGATIVE mg/dL (NEGATIVE) 05/18/17 16:30 Urine Ketones NEGATIVE mg/dL (NEGATIVE) 05/18/17 16:30 Urine Blood MODERATE (NEGATIVE) H 05/18/17 16:30 Urine Nitrate NEGATIVE (NEGATIVE) 05/18/17 16:30 Urine Bilirubin NEGATIVE (NEGATIVE) 05/18/17 16:30 Urine Urobilinogen 0.2 E.U./dL (0.2 - 1.0) 05/18/17 16:30 Ur Leukocyte Esterase TRACE (NEGATIVE) H 05/18/17 16:30 Urine RBC 10-25 /hpf (0-5) H 05/18/17 16:30 Urine WBC 6-10 /hpf (0-5) H 05/18/17 16:30 Ur Epithelial Cells FEW /lpf (FEW) 05/18/17 16:30 Amorphous Sediment MANY URATES (NONE SEEN) 04/14/17 15:05 Urine Bacteria NONE SEEN /hpf (NONE SEEN) 05/18/17 16:30 Hyaline Casts 5-10 /lpf (0-2) H 05/18/17 16:30 Urine Sperm MANY /hpf (NONE SEEN) 05/18/17 16:30 Amikacin Peak 23.4 ug/mL (20.0-30.0) 05/19/17 16:02 Amikacin Trough 8.6 ug/mL (1.0-8.0) H 05/19/17 13:30 Random Amikacin 6.7 ug/ml (1.0-30.0) 05/17/17 04:25 Vancomycin Trough 13.5 ug/mL (10-20) 04/19/17 19:20 Helicobacter pylori Ab NEGATIVE (NEGATIVE) 05/04/17 10:05 Blood Type O POSITIVE 05/02/17 07:12 Antibody Screen NEGATIVE 05/02/17 07:12 Crossmatch See Detail 05/02/17 07:12 - Physical Exam Vitals and I&O: Vital Signs Temp 98.2 F 05/25/17 07:00 Pulse 93 05/25/17 07:45 Resp 28 05/25/17 07:00 BP 98/49 05/25/17 07:00 Pulse Ox 100 05/25/17 07:45 Intake & Output 05/24/17 05/25/17 05/25/17 18:59 06:59 18:59 Intake Total 4851.2 2233.333 Output Total 2500 900 50 Balance 2351.2 1333.333 -50 Weight (lbs) 96.388 kg 97.341 kg Intake: Intake, IV Amount 3651.2 1033.333 Amikacin 300 mg In 101.2 Dextrose 5% 100 ml @ 100 mls/hr IV Q12H [facility] Rx#: [id number] Dextrose 5% 1,000 ml @ 50 1000 883.333 mls/hr IV .Q20H [facility] Rx#: [id number] Multivitamin Inj 10 ml In 2400 Dextrose 70% 1,740 ml In Amino Acids 10% 500 ml In Intralipids 20% 150 ml @ 100 mls/hr IV .Q24H [facility] Rx#:[id number] Tigecycline 50 mg In 100 100 Sodium Chloride 0.9% 100 ml @ 100 mls/hr IV Q12HR [facility] Rx#:[id number] cefTAZidime 1 gm In 50 50 Sodium Chloride 0.9% 50 ml @ Per Protocol IV Q12HR [facility] Rx#:[id number] TPN/PPN 1200 1200 Output: Gastric Drainage 200 100 Drainage 50 Medial Abdomen 50 Urine 2300 800 Other: # Bowel Movements 0 Active Medications: Current Medications Acetaminophen (Tylenol 650mg/20.3ml Suspension) 650 mg NG Q6H PRN PRN Reason: FEVER/PAIN Stop: 06/21/17 17:45 Last Admin: 05/24/17 20:36 Dose: 650 mg Albuterol/Ipratropium (Duoneb Neb) 3 ml HHN Q4HRT [facility] Stop: 06/15/17 14:59 Last Admin: 05/25/17 07:37 Dose: 3 ml Amiodarone HCl (Cordarone) 200 mg NG BID [facility] Stop: 06/24/17 23:14 Last Admin: 05/24/17 16:07 Dose: Not Given Budesonide (Pulmicort) 0.5 mg HHN BIDRT [facility] Stop: 06/15/17 18:59 Last Admin: 05/25/17 07:36 Dose: 0.5 mg Chlorhexidine Gluconate (Peridex) 15 ml MM 0800,1999 [facility] Stop: 06/30/17 19:59 Last Admin: 05/24/17 20:47 Dose: 15 ml Enalaprilat (Vasotec) 2.5 mg IVP Q4HR PRN PRN Reason: SBP>150 Stop: 07/06/17 15:59 Famotidine (Pepcid) 20 mg IVP DAILY [facility] Stop: 07/18/17 08:59 Last Admin: 05/24/17 09:21 Dose: 20 mg Multivitamins/Minerals 10 ml/Dextrose/ Amino Acids/Electrolytes/ Fat Emulsion Intravenous 2,400 mls @ 100 mls/hr IV .Q24H [facility] Stop: 06/23/17 15:59 Last Admin: 05/24/17 15:54 Dose: 100 mls/hr Diltiazem HCl 125 mg/ Dextrose 125 mls @ 10 mls/hr IV TITR [facility]; 10 MG/HR PRN Reason: Protocol Stop: 07/06/17 11:14 Last Titration: 05/11/17 18:00 Dose: 0 mg/hr, 0 mls/hr Tigecycline 50 mg/ Sodium (Chloride) 100 mls @ 100 mls/hr IV Q12HR [facility] Stop: 07/13/17 20:59 Last Infusion: 05/24/17 21:25 Dose: Infused Ceftazidime 1 gm/ Sodium (Chloride) 50 mls @ 0 mls/hr IV Q12HR [facility] PRN Reason: Per Protocol Stop: 07/16/17 20:59 Last Infusion: 05/24/17 22:00 Dose: Infused Norepinephrine Bitartrate 4 mg (/ Dextrose) 254 mls @ 15.24 mls/hr IV TITR PRN ; Protocol; 4 MCG/MIN PRN Reason: BP MAINTENANCE (PER PROTOCOL) Stop: 07/18/17 10:59 Last Titration: 05/20/17 16:00 Dose: 0 mcg/min, 0 mls/hr Amikacin Sulfate 300 mg/ (Dextrose) 101.2 mls @ 100 mls/hr IV Q12H [facility] Stop: 07/20/17 13:59 Last Admin: 05/25/17 02:00 Dose: 100 mls/hr Sodium Chloride (Nacl 0.45%) 1,000 mls @ 30 mls/hr IV .Q24H [facility] Stop: 07/24/17 08:44 Insulin Aspart (Novolog Insulin Sliding Scale) 0 units SUBQ Q6HR [facility] PRN Reason: Protocol Stop: 07/17/17 11:59 Last Admin: 05/25/17 06:36 Dose: 2 units Lactobacillus Rhamnosus (Culturelle) 1 each PO DAILY [facility] Stop: 07/16/17 08:59 Last Admin: 05/24/17 09:25 Dose: Not Given Metoclopramide HCl (Reglan) 10 mg IVP Q8HR [facility] Stop: 07/06/17 20:59 Last Admin: 05/25/17 05:21 Dose: 10 mg Metoprolol Tartrate (Lopressor) 25 mg PO BID [facility] Stop: 06/26/17 08:59 Last Admin: 05/24/17 16:06 Dose: Not Given Mineral Oil (Mineral Oil 30 Ml) 30 ml NG DAILY [facility] Stop: 07/04/17 12:29 Last Admin: 05/24/17 09:26 Dose: Not Given Miscellaneous (Vte Chemical Prophylaxis Screen/ Admission) 1 ea PRN PRN PRN Reason: PROTOCOL Stop: 07/01/17 14:44 Miscellaneous (Amikacin Iv Per Pharmacy) 1 ea PRN PRN PRN Reason: PROTOCOL Stop: 07/13/17 18:39 Miscellaneous (Probiotic Screen) 1 ea PRN PRN PRN Reason: PROTOCOL Stop: 07/15/17 10:37 Miscellaneous (Tpn Per Pharmacy) 1 ea PRN PRN PRN Reason: PROTOCOL Stop: 07/17/17 15:12 Morphine Sulfate (Morphine) 2 mg IVP Q4H PRN PRN Reason: PAIN Stop: 07/11/17 16:49 Last Admin: 05/24/17 22:06 Dose: 2 mg Sulfacetamide Sodium (Sulamyd 10% [facility]) 1 drop EACH EYE Q6HR [facility] Stop: 07/16/17 11:59 Last Admin: 05/25/17 00:16 Dose: 1 drop General: Other (sedated n intubated.) HEENT: Atraumatic, PERRLA, EOMI, Mucous membr. moist/pink, Other (NG tube+) Neck: Supple, +2 carotid pulse wo bruit, Other (tracheostomy noted.) Cardiovascular: Regular rate, Normal S1, Normal S2 Lungs: Other (diffuse rhonchi.) Abdomen: Soft, Other ( wound VAC anterior open abdominal wall wound. L colostomy no out put.) Extremities: Edema, Other (no edema and cyanosis.) Neurological: Reflexes 2+, Other (Patient is not following commands.) Psych/Mental Status: Other (Sedated) - Procedures Procedures: Procedures Procedure Code Date BYPASS SIGMOID COLON TO CUTANEOUS, OPEN APPROACH [id number] 04/14/17 BYPASS TRACHEA TO CUTANEOUS WITH TRACH DEV, OPEN APPROACH [id number] 04/14/17 INCISION OF WINDPIPE 18549 04/14/17 INSERT EMERGENCY AIRWAY 67862 04/14/17 INSERTION OF ENDOTRACHEAL AIRWAY INTO TRACHEA, VIA OPENING [id number] 04/14/17 INSERTION OF INFUSION DEV INTO SUP VENA CAVA, PERC APPROACH [id number] 04/14/17 PARTIAL REMOVAL OF COLON 37675 04/14/[address] PL[address] CATHETER IN VEIN 29247 04/14/17 RESECTION OF SIGMOID COLON, OPEN APPROACH [id number] 04/14/17 RESPIRATORY VENTILATION, 24-96 CONSECUTIVE HOURS [id number] 04/14/17 VENT MGMT INPAT INIT DAY 63695 04/14/17 VENT MGMT INPAT SUBQ DAY 52244 04/14/17 Assessment/Plan - Problem List Patient Problems: All Active Problems Abscess of sigmoid colon due to diverticulitis (Acute) K57.20 Diverticulitis of sigmoid colon (Acute) K57.32 Obesity (Acute) E66.9 Perforation of sigmoid colon due to diverticulitis (Acute) K57.20 Peritonitis (acute) generalized (Acute) K65.0 - Assessment Assessment: Current Active Problems Problem Status Onset Abscess of sigmoid colon due to diverticulitis Acute Diverticulitis of sigmoid colon Acute Obesity Acute Perforation of sigmoid colon due to diverticulitis Acute Peritonitis (acute) generalized Acute Perforated diverticulitis status post expiratory laparotomy and colostomy placement. Postoperative respiratory failure on vent status post tracheostomy. Obesity. MDROs organisms positive culture. ARDS. Polymicrobial peritonitis due to perforation.. Asthma. Abnormal liver function test. SVT currently on Cardizem drip Electrolyte imbalance. SEKOU R/O Allergic intersttial nephritis. Electrolyte imbalance Hypernatremia. Encephalopathy due to metabolic and infectious Open surgical abdominal wound with wound VAC. Altered mental status secondary to metabolic and infectious encephalopathy with slow improvement. Postop anemia. - Plan Plan: ICU status. Vent support. Nebulizer treatment. Pulmonary toilet. Patient is [facility] to [facility]. IV antibiotics as per ID. TPN. Renal follow-up. Corrected electrolytes. PEG today. Change IVF to 1/2 normal saline. Rate control with cardizem drip. Wound care with wound VAC Surgical follow-up ID follow-up. Cardiology follow-up Pulmonary follow-up. Symptoms management. Medication management. IV PPI. Monitor lab. Guarded prognosis. Chronic management of his medical illnesses. Care plan discussed with RN. Nutritional Asmnt/Malnutr-PDOC - Dietary Evaluation Malnutrition Findings (Please click <Entered> for more info): Nutritional Asmnt/Malnutrition Start: 04/19/17 14: 21 Text: Status: Complete Freq: Document 04/19/17 14:21 GSUN (Rec: 04/19/17 14:58 [id number]) Nutritional Asmnt/Malnutrition Patient General Information Nutritional Screening Moderate Risk Screening Diagnosis Sepsis, diverticulitis, peritonitis Pertinent Medical Hx/Surgical Hx Asthma, diverticulosis Subjective Information 56 year old male frome home. Pt was restless, moving extremities during visit. 04/14 : sigmoid colectomy, end colostomy, abscess drainage, diffuse peritontis. 04/16: pt started PPN. 04/17: central line and started on TPN. Spoke to family at bedside, explained parenteral nutrition , family undersoto and has no further question at this time. Weight discrepancies noted in EMR, family does not know UBW , estimated nutritional needs based Current Diet Order/ Nutrition Support TPN D10% AA4.25% at 90ml/hr with IL20% 150ml, providing 1401.6kcal Pertinent Medications Dilaudid, Novolog, Culturelle, Magnesium Sulfate, Vancomycin , TPN, Morphine, Multivitamins , Zofran, Protonix, Nacl0.9% Pertinent Labs 04/14: triglycerides 106, total bilirubin 1.1H, glucose 116H 04/17: magnesium 2.5, phsophorus 3.2 04/19: magnesium 1.8L, phosphorus 2.4L, BUN 28H, creatinine 1.3, glucose 154H, total bilirubin 1.1H, triglycerides 238H Nutritional Hx/Data Height 1.7 m Height (Calculated Centimeters) 170.2 Current Weight (lbs) 95.254 kg Weight (Calculated Kilograms) 95.3 Weight (Calculated Grams) 08110.4 [place] Body Weight 148 Weight Status Overweight GI Symptoms Skin Integrity/Comment: [place] 14. Facial non-pitting 1+, bilateral hands pitting 1+ Estimated Nutritional Goals Calories/Kcals/Kg IBW 148/67.3kg Kcals Calculated 2018-2356kcal (30-35kcal/kg) Protein Calculated 101-135g (1.5-2g/kg) Fluid: ml Per MD Nutritional Problem 1. Problem Problem Altered GI function related to Etiology abscess and perforation of sigmoid colon due to diverticulitis aeb Signs/Symptoms: post-operative, on TPN Intervention/Recommendation Comments 1. Recommend TPN D15% AA5.5% at 100ml/hr with IL20% 150ml, providing 2400ml total volume, 2052kcal, 132g protein, meeting 100% of estimated nutritional needs. Carb load 2 .6mg/kg/min (using 210lb adm weight). 2. Monitor for possible refeeding syndrome, 04/18: phsophorus 2.1L, 04/19: magnesium 1.9. 3. Monitor triglycerides, total bilirubin, glucose, renal labs. Expected Outcomes/Goals Expected Outcomes/Goals 1. Pt to meet 100% of estimated nutritional needs on TPN.
[2017-05-25] MEDS: Chlorhexidine Gluconate 0.12% 15mL Mouthwash MM SCH ×2 (08:55→20:39)
[2017-05-25] MEDS: Sodium Chloride 0.45% 1,000 ML IV SCH (08:55)
[2017-05-25] MEDS: Lactobacillus Rhamnosus 10 Billion CFU Capsule PO SCH (09:13)
[2017-05-25] MEDS: TPN 10%-70% CUSTOM IV SCH (16:05)
--- NOTE | 2017-05-25 16:43 | Operative Report ---
DATE OF SURGERY: 05/25/2017 REFERRING PHYSICIAN: Dr. Kahn. PROCEDURE PERFORMED: EGD with PEG placement. ENDOSCOPIST: Jovon Johnson M.D. INDICATIONS: The patient is a 56-year-old male who was hospitalized for acute diverticulitis complicated by perforation and peritonitis and now status post surgical resection. He has had a slow recovery and is unable to take p.o. and has been TPN dependent. A PEG is indicated at this time. CONSENT: Informed consent was obtained. The patient was explained the risks and benefits of the procedure including but not limited to bleeding, infection, perforation, need for surgery, cardiopulmonary complications, G-tube malfunction and . The patient indicated his understanding of the above and signed the consent form. The patient was deemed to be a good candidate for conscious sedation. ANESTHESIA: Propofol was administered under the care of an anesthesiologist. PROCEDURE IN DETAIL: The patient was connected to the appropriate monitoring devices including blood pressure, pulse rate and pulse oximetry and IV was started. Continuous oxygen was provided via nasal cannula. General anesthesia was administered via anesthesiologist. The patient was placed in the left lateral decubitus position. Mouthpiece was inserted and secured. After the patient was sedated, the scope was introduced into the mouth and passed under direct visualization into the esophagus, stomach and duodenum. The stomach was then transilluminated and an optimal position for the PEG tube was identified using a single poke method. The skin was infiltrated with local lidocaine for anesthesia and a needle and sheath were inserted through the abdomen into the stomach under direct visualization. The needle was removed and a guidewire was inserted through the sheath. The guidewire was grasped from above with a snare by the endoscopist and it was removed completely through the mouth and a PEG tube was secured to the guidewire. The guidewire and PEG tube were then pulled through the mouth and into the esophagus and snug to the abdominal wall. The PEG tube was seen to freely twist with gentle manipulation. There was no evidence of bleeding. The bolster was placed on the PEG site. Bacitracin was placed around the site as well. The patient tolerated the procedure well and there were no obvious signs of complications at the conclusion of the procedure. IMPRESSION: G-tube was successfully inserted. RECOMMENDATIONS: Can use the G-tube immediately for medications. Would maintain n.p.o. for 6 hours and then start feeds at a slow rate and advance as tolerated. Hold for residuals. Please call with any further questions. Thank you for allowing me to participate in the care of this patient. JOB# [id number]
--- NOTE | 2017-05-25 21:45 | Progress Notes ---
DATE: 05/25/2017 PULMONARY PROGRESS NOTE PROBLEM LIST: 1. Persistent respiratory failure. 2. Chronic recurrent encephalopathy. 3. Still possibly sepsis, lower abdomen is soft. 4. Obstructive sleep apnea syndrome. SYMPTOMS: The patient is obtunded and no meaningful history. The patient is in no respiratory distress, still on assist control mode of ventilator, 30% of oxygen and the patient was planned to have the G-tube. PHYSICAL EXAMINATION: VITAL SIGNS: Temperature is 98.6, blood pressure 104/86, and saturation 100%. NECK: Veins not visualized. CHEST: Shows diminished air entry. No other adventitious breath sounds. HEART: Regular. EXTREMITIES: Shows no peripheral edema. ABDOMEN: Still some guarding, etc. LABORATORY DATA: White count is 11.1, eosinophil 15, INR 1.28, BUN 86 and creatinine 1.9, and total bilirubin is 1.1 with slight elevation of liver profile. ASSESSMENT: 1. The patient is status quo with persistent toxic encephalopathic status. 2. Obstructive sleep apnea syndrome, suspect still infectious pathology going the belly despite unremarkable CT of the abdomen. PLANS AND SUGGESTIONS: We will continue current supportive care. Overall prognosis is very guarded current with recurrent saturation and will continue rest of other treatment at this time. JOB# [id number]
[2017-05-26] MEDS: INSULIN ASPART SLIDING SCALE 100 UNITS/ML UNIT SUBQ SCH ×5 (00:24→23:56)
[2017-05-26] MEDS: Albuterol/Ipratropium Neb 3 ML AERS HHN SCH ×6 (02:00→22:00)
[2017-05-26] MEDS: Morphine Sulfate 4 mg/mL 1mL Syr IVP PRN ×2 (02:10→08:15)
[2017-05-26 05:06] LABS: HEMATOCRIT 27.4 % (39.0-49.0); HEMOGLOBIN 9.1 gm/dL (13.2-17.3); MEAN CELL VOLUME 81.8 fl (80-99); MEAN PLATELET VOLUME 10.9 fl; PLATELET COUNT 272 Th/cmm (150-400); RED BLOOD COUNT 3.36 Mil/cmm (4.30-5.70)
[2017-05-26 05:17] LABS: ALB/GLOB RATIO 0.4 (1.0-1.8); BILIRUBIN,TOTAL 1.2 mg/dL (0.3-1.0); BUN/CREATININE RATIO 48.8; CALCIUM SERUM 9.1 mg/dL (8.6-10.3); CARBON DIOXIDE 20.9 mEq/L (21.0-31.0); CREATININE - SERUM 1.7 mg/dL (0.7-1.3); MAGNESIUM 2.3 mg/dL (1.9-2.7); PHOSPHOROUS 3.7 mg/dL (2.5-5.0); POTASSIUM SERUM 3.9 mEq/L (3.5-5.1)
[2017-05-26 05:37] LABS: WHITE BLOOD COUNT 12.5 Th/cmm (4.8-10.8)
[2017-05-26] MEDS: Metoclopramide 5 mg/mL 2mL Vial IVP SCH ×3 (05:42→20:31)
[2017-05-26] MEDS: Budesonide 0.5 Mg/2 mL Ud HHN SCH ×2 (06:55→19:06)
[2017-05-26 07:13] LABS: BAND NEUTROPHILE 1 % (0-10); EOSINOPHIL 16 % (0-5); NEUTROPHILS 41 % (40-80); TOTAL CELLS COUNTED 100
[2017-05-26 07:14] LABS: ANISOCYTOSIS 1+; PLATELET ESTIMATE ADEQUATE (NORMAL); PLATELET MORPHOLOGY GIANT PLATELETS SEEN (NORMAL); POLYCHROMASIA 1+
[2017-05-26] MEDS: cefTAZidime 1 GM in Sodium Chloride 0.9% 50 ML IV SCH ×2 (08:14→20:31)
--- NOTE | 2017-05-26 09:19 | General Progress Note ---
Subjective - Review of Systems Subjective: Patient is seen and examined. Patient currently on vent. I did discuss with RN about patient's treatment plan. S/P PEG. Chart reviewed. Objective - Results Result Diagrams: 05/26/17 03:33 05/26/17 03:33 Recent Labs: Laboratory Last Values WBC 12.5 Th/cmm (4.8-10.8) H 05/26/17 03:33 RBC 3.36 Mil/cmm (4.30-5.70) L 05/26/17 03:33 Hgb 9.1 gm/dL (13.2-17.3) L 05/26/17 03:33 Hct 27.4 % (39.0-49.0) L 05/26/17 03:33 MCV 81.8 fl (80-99) 05/26/17 03:33 MCH 27.0 pg (26.0-30.0) 05/26/17 03:33 MCHC Differential 33.0 pg (28.0-36.0) 05/26/17 03:33 RDW 19.0 % (11.5-20.0) 05/26/17 03:33 Plt Count 272 Th/cmm (150-400) 05/26/17 03:33 MPV 10.9 fl 05/26/17 03:33 Neutrophils % [employer] 05/25/17 04:36 Band Neutrophils % 1 % (0-10) 05/26/17 03:33 Lymphocytes % [employer] 05/25/17 04:36 Monocytes % [employer] 05/25/17 04:36 Eosinophils % [employer] 05/25/17 04:36 Basophils % [employer] 05/25/17 04:36 Neutrophils (Manual) 41 % (40-80) 05/26/17 03:33 Lymphocytes 30 % (20-50) 05/26/17 03:33 Monocytes 12 % (2-10) H 05/26/17 03:33 Eosinophils 16 % (0-5) H 05/26/17 03:33 Basophils 1 % (0-3) 05/19/17 05:15 Metamyelocytes 1 % (0-0) H 04/22/17 05:04 Atypical Lymphocytes 1 % 05/21/17 04:30 Platelet Estimate ADEQUATE (NORMAL) 05/26/17 03:33 Platelet Morphology GIANT PLATELETS SEEN (NORMAL) 05/26/17 03:33 Polychromasia 1+ 05/26/17 03:33 Anisocytosis 1+ 05/26/17 03:33 Microcytosis 1+ 05/02/17 05:15 RBC Morph Micro Appear ABNORMAL (NORMAL) 05/26/17 03:33 ESR > 140 mm/hr (0-20) H 04/20/17 07:00 Plt Count 276 Th/cmm (150-750) 05/19/17 07:37 PT 13.5 SECONDS (9.5-11.5) H 05/25/17 04:36 INR 1.28 (0.5-1.4) 05/25/17 04:36 PTT (Actin FS) 34.3 SECONDS (26.0-38.0) 05/25/17 04:36 Fibrinogen 222.0 mg/dL (200.0-400.0) 05/19/17 07:37 D-Dimer 3160 ng/mL (100-400) H 05/19/17 07:37 Specimen Source Arterial 05/22/17 09:00 Sample Site Left Radial 05/22/17 09:00 pH 7.53 (7.35-7.45) H 05/22/17 09:00 pCO2 30.0 mmHg (35.0-45.0) L 05/22/17 09:00 pO2 128.0 mmHg (80.0-100.0) H 05/22/17 09:00 HCO3 27.3 mEq/L (20.0-26.0) H 05/22/17 09:00 Base Excess 3.0 mEq/L (-3.0-3.0) 05/22/17 09:00 O2 Saturation 99.0 % (92.0-100.0) 05/22/17 09:00 Chau Test YES 05/22/17 09:00 Vent Rate 16 05/22/17 09:00 Inspired O2 30 05/22/17 09:00 Tidal Volume 650 05/22/17 09:00 PEEP 3 05/22/17 09:00 Pressure (ins/psv/peep) NA 05/22/17 09:00 Critical Value SH 05/22/17 09:00 Sodium 137 mEq/L (136-145) 05/26/17 03:33 Potassium 3.9 mEq/L (3.5-5.1) 05/26/17 03:33 Chloride 112 mEq/L (98-107) H 05/26/17 03:33 Carbon Dioxide 20.9 mEq/L (21.0-31.0) L 05/26/17 03:33 Anion Gap 8.0 (7.0-16.0) 05/26/17 03:33 BUN 83 mg/dL (7-25) H* 05/26/17 03:33 Creatinine 1.7 mg/dL (0.7-1.3) H 05/26/17 03:33 Est GFR ( Amer) 53.7 ml/min (>90) 05/26/17 03:33 Est GFR (Non-Af Amer) 44.4 ml/min 05/26/17 03:33 BUN/Creatinine Ratio 48.8 05/26/17 03:33 Glucose 149 mg/dL (70-105) H 05/26/17 03:33 POC Glucose 142 MG/DL (70 - 105) H 05/26/17 05:32 Hemoglobin A1c % 6.5 % (4.0-6.0) H 05/22/17 07:52 Whole Bld Lactic Acid 1.66 mmol/L (0.60-1.99) 05/12/17 04:40 Uric Acid 3.6 mg/dL (4.4-7.6) L 04/20/17 07:00 Calcium 9.1 mg/dL (8.6-10.3) 05/26/17 03:33 Phosphorus 3.7 mg/dL (2.5-5.0) 05/26/17 03:33 Magnesium 2.3 mg/dL (1.9-2.7) 05/26/17 03:33 Total Bilirubin 1.2 mg/dL (0.3-1.0) H 05/26/17 03:33 Direct Bilirubin 0.46 mg/dL (0.0-0.2) H 05/24/17 04:45 AST 85 U/L (13-39) H 05/26/17 03:33 ALT 44 U/L (7-52) 05/26/17 03:33 Alkaline Phosphatase 362 U/L (34-104) H 05/26/17 03:33 Ammonia 50 umol/L (16-53) 05/24/17 04:45 Creatine Kinase 136 U/L (30-223) 04/14/17 14:55 Troponin I 0.01 ng/mL (0.01-0.05) 04/22/17 05:04 C-Reactive Protein 27.5 mg/dL (0.0-0.9) H 05/15/17 04:29 B-Natriuretic Peptide 33.7 pg/mL (5.0-100.0) 05/24/17 04:45 Total Protein 6.6 gm/dL (6.0-8.3) 05/26/17 03:33 Albumin 1.9 gm/dL (4.2-5.5) L 05/26/17 03:33 Globulin 4.7 gm/dL 05/26/17 03:33 Albumin/Globulin Ratio 0.4 (1.0-1.8) L 05/26/17 03:33 Prealbumin 10 mg/dL (10-36) 05/24/17 04:45 Triglycerides 397 mg/dL (<150) H 05/24/17 04:45 Cholesterol 83 mg/dL (<200) 05/24/17 04:45 LDL Cholesterol Direct 38 mg/dL (75-193) L 04/14/17 14:55 HDL Cholesterol 13 mg/dL (23-92) L 04/14/17 14:55 Amylase 53 U/L (29-103) 05/09/17 06:00 Lipase 85 U/L (11-82) H 05/09/17 06:00 Vitamin D 25-Hydroxy 25.8 ng/mL (30.0-100.0) L 05/18/17 04:50 Procalcitonin SEE REF LAB REPORT 05/05/17 04:35 PTH Interpretation (()) 05/18/17 04:50 PTH Intact <6 pg/mL (15-65) L 05/18/17 04:50 Calcium (PTH Intact) 9.6 mg/dL (8.7-10.2) 05/18/17 04:50 Urine Source [place] 05/18/17 16:30 Urine Color YELLOW 05/18/17 16:30 Urine Clarity CLOUDY (CLEAR) 05/18/17 16:30 Urine pH 5.5 (4.6 - 8.0) 05/18/17 16:30 Ur Specific Carbon 1.010 (1.005-1.030) 05/18/17 16:30 Urine Protein NEGATIVE mg/dL (NEGATIVE) 05/18/17 16:30 Urine Glucose (UA) NEGATIVE mg/dL (NEGATIVE) 05/18/17 16:30 Urine Ketones NEGATIVE mg/dL (NEGATIVE) 05/18/17 16:30 Urine Blood MODERATE (NEGATIVE) H 05/18/17 16:30 Urine Nitrate NEGATIVE (NEGATIVE) 05/18/17 16:30 Urine Bilirubin NEGATIVE (NEGATIVE) 05/18/17 16:30 Urine Urobilinogen 0.2 E.U./dL (0.2 - 1.0) 05/18/17 16:30 Ur Leukocyte Esterase TRACE (NEGATIVE) H 05/18/17 16:30 Urine RBC 10-25 /hpf (0-5) H 05/18/17 16:30 Urine WBC 6-10 /hpf (0-5) H 05/18/17 16:30 Ur Epithelial Cells FEW /lpf (FEW) 05/18/17 16:30 Amorphous Sediment MANY URATES (NONE SEEN) 04/14/17 15:05 Urine Bacteria NONE SEEN /hpf (NONE SEEN) 05/18/17 16:30 Hyaline Casts 5-10 /lpf (0-2) H 05/18/17 16:30 Urine Sperm MANY /hpf (NONE SEEN) 05/18/17 16:30 Amikacin Peak 23.4 ug/mL (20.0-30.0) 05/19/17 16:02 Amikacin Trough 8.6 ug/mL (1.0-8.0) H 05/19/17 13:30 Random Amikacin 6.7 ug/ml (1.0-30.0) 05/17/17 04:25 Vancomycin Trough 13.5 ug/mL (10-20) 04/19/17 19:20 Helicobacter pylori Ab NEGATIVE (NEGATIVE) 05/04/17 10:05 Blood Type O POSITIVE 05/02/17 07:12 Antibody Screen NEGATIVE 05/02/17 07:12 Crossmatch See Detail 05/02/17 07:12 - Physical Exam Vitals and I&O: Vital Signs Temp 99.6 F 05/26/17 07:00 Pulse 99 05/26/17 07:18 Resp 26 05/26/17 07:00 BP 104/64 05/26/17 07:00 Pulse Ox 100 05/26/17 07:18 Intake & Output 05/25/17 05/26/17 05/26/17 18:59 06:59 18:59 Intake Total 3851.2 1250 Output Total 1500 1750 Balance 2351.2 -500 Weight (lbs) 103.079 kg 103.192 kg Intake: Intake, IV Amount 2651.2 50 Amikacin 300 mg In 101.2 Dextrose 5% 100 ml @ 100 mls/hr IV Q12H [facility] Rx#: [id number] Multivitamin Inj 10 ml In 2400 Dextrose 70% 1,740 ml In Amino Acids 10% 500 ml In Intralipids 20% 150 ml @ 100 mls/hr IV .Q24H [facility] Rx#:[id number] Tigecycline 50 mg In 100 Sodium Chloride 0.9% 100 ml @ 100 mls/hr IV Q12HR [facility] Rx#:[id number] cefTAZidime 1 gm In 50 50 Sodium Chloride 0.9% 50 ml @ Per Protocol IV Q12HR [facility] Rx#:[id number] TPN/PPN 1200 1200 Output: Drainage 50 50 Medial Abdomen 50 50 Urine 1250 1500 Stool 200 Emesis 200 Active Medications: Current Medications Acetaminophen (Tylenol 650mg/20.3ml Suspension) 650 mg NG Q6H PRN PRN Reason: FEVER/PAIN Stop: 06/21/17 17:45 Last Admin: 05/25/17 21:44 Dose: 650 mg Albuterol/Ipratropium (Duoneb Neb) 3 ml HHN Q4HRT [facility] Stop: 06/15/17 14:59 Last Admin: 05/26/17 06:55 Dose: 3 ml Amiodarone HCl (Cordarone) 200 mg NG BID [facility] Stop: 06/24/17 23:14 Last Admin: 05/25/17 16:07 Dose: Not Given Budesonide (Pulmicort) 0.5 mg HHN BIDRT [facility] Stop: 06/15/17 18:59 Last Admin: 05/26/17 06:55 Dose: 0.5 mg Chlorhexidine Gluconate (Peridex) 15 ml MM 0800,2000 [facility] Stop: 06/30/17 19:59 Last Admin: 05/25/17 20:39 Dose: 15 ml Enalaprilat (Vasotec) 2.5 mg IVP Q4HR PRN PRN Reason: SBP>150 Stop: 07/06/17 15:59 Famotidine (Pepcid) 20 mg IVP DAILY [facility] Stop: 07/18/17 08:59 Last Admin: 05/26/17 08:14 Dose: 20 mg Multivitamins/Minerals 10 ml/Dextrose/ Amino Acids/Electrolytes/ Fat Emulsion Intravenous 2,400 mls @ 100 mls/hr IV .Q24H [facility] Stop: 06/23/17 15:59 Last Admin: 05/25/17 16:05 Dose: 100 mls/hr Diltiazem HCl 125 mg/ Dextrose 125 mls @ 10 mls/hr IV TITR [facility]; 10 MG/HR PRN Reason: Protocol Stop: 07/06/17 11:14 Last Titration: 05/11/17 18:00 Dose: 0 mg/hr, 0 mls/hr Tigecycline 50 mg/ Sodium (Chloride) 100 mls @ 100 mls/hr IV Q12HR [facility] Stop: 07/13/17 20:59 Last Admin: 05/25/17 21:43 Dose: 100 mls/hr Ceftazidime 1 gm/ Sodium (Chloride) 50 mls @ 0 mls/hr IV Q12HR [facility] PRN Reason: Per Protocol Stop: 07/16/17 20:59 Last Admin: 05/26/17 08:14 Dose: 100 mls/hr Norepinephrine Bitartrate 4 mg (/ Dextrose) 254 mls @ 15.24 mls/hr IV TITR PRN ; Protocol; 4 MCG/MIN PRN Reason: BP MAINTENANCE (PER PROTOCOL) Stop: 07/18/17 10:59 Last Titration: 05/20/17 16:00 Dose: 0 mcg/min, 0 mls/hr Amikacin Sulfate 300 mg/ (Dextrose) 101.2 mls @ 100 mls/hr IV Q12H [facility] Stop: 07/20/17 13:59 Last Admin: 05/26/17 02:09 Dose: 100 mls/hr Sodium Chloride (Nacl 0.45%) 1,000 mls @ 30 mls/hr IV .Q24H [facility] Stop: 07/24/17 08:44 Last Admin: 05/25/17 08:55 Dose: 30 mls/hr Insulin Aspart (Novolog Insulin Sliding Scale) 0 units SUBQ Q6HR [facility] PRN Reason: Protocol Stop: 07/17/17 11:59 Last Admin: 05/26/17 06:35 Dose: Not Given Lactobacillus Rhamnosus (Culturelle) 1 each PO DAILY [facility] Stop: 07/16/17 08:59 Last Admin: 05/25/17 09:13 Dose: Not Given Metoclopramide HCl (Reglan) 10 mg IVP Q8HR [facility] Stop: 07/06/17 20:59 Last Admin: 05/26/17 05:42 Dose: 10 mg Metoprolol Tartrate (Lopressor) 25 mg PO BID [facility] Stop: 06/26/17 08:59 Last Admin: 05/25/17 16:07 Dose: Not Given Mineral Oil (Mineral Oil 30 Ml) 30 ml NG DAILY [facility] Stop: 07/04/17 12:29 Last Admin: 05/25/17 09:13 Dose: Not Given Miscellaneous (Vte Chemical Prophylaxis Screen/ Admission) 1 ea PRN PRN PRN Reason: PROTOCOL Stop: 07/01/17 14:44 Miscellaneous (Amikacin Iv Per Pharmacy) 1 ea PRN PRN PRN Reason: PROTOCOL Stop: 07/13/17 18:39 Miscellaneous (Probiotic Screen) 1 ea PRN PRN PRN Reason: PROTOCOL Stop: 07/15/17 10:37 Miscellaneous (Tpn Per Pharmacy) 1 ea PRN PRN PRN Reason: PROTOCOL Stop: 07/17/17 15:12 Morphine Sulfate (Morphine) 2 mg IVP Q4H PRN PRN Reason: PAIN Stop: 07/11/17 16:49 Last Admin: 05/26/17 08:15 Dose: 2 mg Sulfacetamide S[facility] 1 drop EACH EYE Q6HR [facility] Stop: 07/16/17 11:59 Last Admin: 05/26/17 05:41 Dose: 1 drop General: Other (sedated n intubated.) HEENT: Atraumatic, PERRLA, EOMI, Mucous membr. moist/pink, Other (NG tube+) Neck: Supple, +2 carotid pulse wo bruit, Other (tracheostomy noted.) Cardiovascular: Regular rate, Normal S1, Normal S2 Lungs: Other (diffuse rhonchi.) Abdomen: Soft, Other ( wound VAC anterior open abdominal wall wound. L colostomy no out put. G tube +) Extremities: Edema, Other (no edema and cyanosis.) Neurological: Reflexes 2+, Other (Patient is not following commands.) Psych/Mental Status: Other (Not following commands.) - Procedures Procedures: Procedures Procedure Code Date BYPASS SIGMOID COLON TO CUTANEOUS, OPEN APPROACH [id number] 04/14/17 BYPASS TRACHEA TO CUTANEOUS WITH TRACH DEV, OPEN APPROACH [id number] 04/14/17 INCISION OF WINDPIPE 52963 04/14/17 INSERT EMERGENCY AIRWAY 06300 04/14/17 INSERTION OF ENDOTRACHEAL AIRWAY INTO TRACHEA, VIA OPENING [id number] 04/14/17 INSERTION OF INFUSION DEV INTO SUP VENA CAVA, PERC APPROACH [id number] 04/14/17 PARTIAL REMOVAL OF COLON 94431 04/14/[address] PL[address] CATHETER IN VEIN 80797 04/14/17 RESECTION OF SIGMOID COLON, OPEN APPROACH [id number] 04/14/17 RESPIRATORY VENTILATION, 24-96 CONSECUTIVE HOURS [id number] 04/14/17 VENT MGMT INPAT INIT DAY 32441 04/14/17 VENT MGMT INPAT SUBQ DAY 54056 04/14/17 Assessment/Plan - Problem List Patient Problems: All Active Problems Abscess of sigmoid colon due to diverticulitis (Acute) K57.20 Diverticulitis of sigmoid colon (Acute) K57.32 Obesity (Acute) E66.9 Perforation of sigmoid colon due to diverticulitis (Acute) K57.20 Peritonitis (acute) generalized (Acute) K65.0 - Assessment Assessment: Current Active Problems Problem Status Onset Abscess of sigmoid colon due to diverticulitis Acute Diverticulitis of sigmoid colon Acute Obesity Acute Perforation of sigmoid colon due to diverticulitis Acute Peritonitis (acute) generalized Acute Perforated diverticulitis status post expiratory laparotomy and colostomy placement. Postoperative respiratory failure on vent status post tracheostomy. Obesity. MDROs organisms positive culture. ARDS. Polymicrobial peritonitis due to perforation.. Asthma. Eosinophilia. Abnormal liver function test. SVT currently on Cardizem drip Electrolyte imbalance. SEKOU R/O Allergic interstitial nephritis. Electrolyte imbalance Encephalopathy due to metabolic and infectious Open surgical abdominal wound with wound VAC. Altered mental status secondary to metabolic and infectious encephalopathy with slow improvement. Postop anemia. - Plan Plan: ICU status. Vent support. Nebulizer treatment. Pulmonary toilet. [facility] IV antibiotics as per ID. G tube feeding with slow rate. Renal follow-up. Corrected electrolytes. Add low dose UV steroid for possible AIN. Check urine for eosinophil. Change IVF to 1/2 normal saline. Rate control with cardizem drip. Wound care with wound VAC Surgical follow-up ID follow-up. Cardiology follow-up Pulmonary follow-up. Symptoms management. Medication management. IV PPI. Monitor lab. Guarded prognosis. Chronic management of his medical illnesses. Care plan discussed with RN. Nutritional Asmnt/Malnutr-PDOC - Dietary Evaluation Malnutrition Findings (Please click <Entered> for more info): Nutritional Asmnt/Malnutrition Start: 04/19/17 14: 21 Text: Status: Complete Freq: Document 04/19/17 14:21 GSUN (Rec: 04/19/17 14:58 [id number] [id number]) Nutritional Asmnt/Malnutrition Patient General Information Nutritional Screening Moderate Risk Screening Diagnosis Sepsis, diverticulitis, peritonitis Pertinent Medical Hx/Surgical Hx Asthma, diverticulosis Subjective Information 56 year old male frome home. Pt was restless, moving extremities during visit. 04/14 : sigmoid colectomy, end colostomy, abscess drainage, diffuse peritontis. 04/16: pt started PPN. 04/17: central line and started on TPN. Spoke to family at bedside, explained parenteral nutrition , family undersoto and has no further question at this time. Weight discrepancies noted in EMR, family does not know UBW , estimated nutritional needs based Current Diet Order/ Nutrition Support TPN D10% AA4.25% at 90ml/hr with IL20% 150ml, providing 1401.6kcal Pertinent Medications Dilaudid, Novolog, Culturelle, Magnesium Sulfate, Vancomycin , TPN, Morphine, Multivitamins , Zofran, Protonix, Nacl0.9% Pertinent Labs 04/14: triglycerides 106, total bilirubin 1.1H, glucose 116H 04/17: magnesium 2.5, phsophorus 3.2 04/19: magnesium 1.8L, phosphorus 2.4L, BUN 28H, creatinine 1.3, glucose 154H, total bilirubin 1.1H, triglycerides 238H Nutritional Hx/Data Height 1.7 m Height (Calculated Centimeters) 170.2 Current Weight (lbs) 95.254 kg Weight (Calculated Kilograms) 95.3 Weight (Calculated Grams) 63489.4 [place] Body Weight 148 Weight Status Overweight GI Symptoms Skin Integrity/Comment: [place] 14. Facial non-pitting 1+, bilateral hands pitting 1+ Estimated Nutritional Goals Calories/Kcals/Kg IBW 148/67.3kg Kcals Calculated 2018-2356kcal (30-35kcal/kg) Protein Calculated 101-135g (1.5-2g/kg) Fluid: ml Per MD Nutritional Problem 1. Problem Problem Altered GI function related to Etiology abscess and perforation of sigmoid colon due to diverticulitis aeb Signs/Symptoms: post-operative, on TPN Intervention/Recommendation Comments 1. Recommend TPN D15% AA5.5% at 100ml/hr with IL20% 150ml, providing 2400ml total volume, 2052kcal, 132g protein, meeting 100% of estimated nutritional needs. Carb load 2 .6mg/kg/min (using 210lb adm weight). 2. Monitor for possible refeeding syndrome, 04/18: phsophorus 2.1L, 04/19: magnesium 1.9. 3. Monitor triglycerides, total bilirubin, glucose, renal labs. Expected Outcomes/Goals Expected Outcomes/Goals 1. Pt to meet 100% of estimated nutritional needs on TPN.
[2017-05-26] MEDS: Chlorhexidine Gluconate 0.12% 15mL Mouthwash MM SCH ×2 (10:02→19:33)
[2017-05-26] MEDS: Lactobacillus Rhamnosus 10 Billion CFU Capsule PO SCH (10:07)
[2017-05-26] MEDS: Venelex 60gm Tube TP SCH (10:08)
[2017-05-26] MEDS: Sodium Chloride 0.45% 1,000 ML IV SCH (10:08)
--- NOTE | 2017-05-26 10:54 | GI Progress Note ---
Subjective - Review of Systems Service Date: 05/26/17 Subjective: PEG placed on 05/25 with 20fr tube. No complications, PEG currently connected to suction. Pt remains A/Ox0 Objective - Results Result Diagrams: 05/26/17 03:33 05/26/17 03:33 Recent Labs: Laboratory Last Values WBC 12.5 Th/cmm (4.8-10.8) H 05/26/17 03:33 RBC 3.36 Mil/cmm (4.30-5.70) L 05/26/17 03:33 Hgb 9.1 gm/dL (13.2-17.3) L 05/26/17 03:33 Hct 27.4 % (39.0-49.0) L 05/26/17 03:33 MCV 81.8 fl (80-99) 05/26/17 03:33 MCH 27.0 pg (26.0-30.0) 05/26/17 03:33 MCHC Differential 33.0 pg (28.0-36.0) 05/26/17 03:33 RDW 19.0 % (11.5-20.0) 05/26/17 03:33 Plt Count 272 Th/cmm (150-400) 05/26/17 03:33 MPV 10.9 fl 05/26/17 03:33 Neutrophils % POLICE DISPATCHER 05/25/17 04:36 Band Neutrophils % 1 % (0-10) 05/26/17 03:33 Lymphocytes % POLICE DISPATCHER 05/25/17 04:36 Monocytes % POLICE DISPATCHER 05/25/17 04:36 Eosinophils % POLICE DISPATCHER 05/25/17 04:36 Basophils % POLICE DISPATCHER 05/25/17 04:36 Neutrophils (Manual) 41 % (40-80) 05/26/17 03:33 Lymphocytes 30 % (20-50) 05/26/17 03:33 Monocytes 12 % (2-10) H 05/26/17 03:33 Eosinophils 16 % (0-5) H 05/26/17 03:33 Basophils 1 % (0-3) 05/19/17 05:15 Metamyelocytes 1 % (0-0) H 04/22/17 05:04 Atypical Lymphocytes 1 % 05/21/17 04:30 Platelet Estimate ADEQUATE (NORMAL) 05/26/17 03:33 Platelet Morphology GIANT PLATELETS SEEN (NORMAL) 05/26/17 03:33 Polychromasia 1+ 05/26/17 03:33 Anisocytosis 1+ 05/26/17 03:33 Microcytosis 1+ 05/02/17 05:15 RBC Morph Micro Appear ABNORMAL (NORMAL) 05/26/17 03:33 ESR > 140 mm/hr (0-20) H 04/20/17 07:00 Plt Count 276 Th/cmm (150-750) 05/19/17 07:37 PT 13.5 SECONDS (9.5-11.5) H 05/25/17 04:36 INR 1.28 (0.5-1.4) 05/25/17 04:36 PTT (Actin FS) 34.3 SECONDS (26.0-38.0) 05/25/17 04:36 Fibrinogen 222.0 mg/dL (200.0-400.0) 05/19/17 07:37 D-Dimer 3160 ng/mL (100-400) H 05/19/17 07:37 Specimen Source Arterial 05/22/17 09:00 Sample Site Left Radial 05/22/17 09:00 pH 7.53 (7.35-7.45) H 05/22/17 09:00 pCO2 30.0 mmHg (35.0-45.0) L 05/22/17 09:00 pO2 128.0 mmHg (80.0-100.0) H 05/22/17 09:00 HCO3 27.3 mEq/L (20.0-26.0) H 05/22/17 09:00 Base Excess 3.0 mEq/L (-3.0-3.0) 05/22/17 09:00 O2 Saturation 99.0 % (92.0-100.0) 05/22/17 09:00 Chau Test YES 05/22/17 09:00 Vent Rate 16 05/22/17 09:00 Inspired O2 30 05/22/17 09:00 Tidal Volume 650 05/22/17 09:00 PEEP 3 05/22/17 09:00 Pressure (ins/psv/peep) NA 05/22/17 09:00 Critical Value SH 05/22/17 09:00 Sodium 137 mEq/L (136-145) 05/26/17 03:33 Potassium 3.9 mEq/L (3.5-5.1) 05/26/17 03:33 Chloride 112 mEq/L (98-107) H 05/26/17 03:33 Carbon Dioxide 20.9 mEq/L (21.0-31.0) L 05/26/17 03:33 Anion Gap 8.0 (7.0-16.0) 05/26/17 03:33 BUN 83 mg/dL (7-25) H* 05/26/17 03:33 Creatinine 1.7 mg/dL (0.7-1.3) H 05/26/17 03:33 Est GFR ( Amer) 53.7 ml/min (>90) 05/26/17 03:33 Est GFR (Non-Af Amer) 44.4 ml/min 05/26/17 03:33 BUN/Creatinine Ratio 48.8 05/26/17 03:33 Glucose 149 mg/dL (70-105) H 05/26/17 03:33 POC Glucose 142 MG/DL (70 - 105) H 05/26/17 05:32 Hemoglobin A1c % 6.5 % (4.0-6.0) H 05/22/17 07:52 Whole Bld Lactic Acid 1.66 mmol/L (0.60-1.99) 05/12/17 04:40 Uric Acid 3.6 mg/dL (4.4-7.6) L 04/20/17 07:00 Calcium 9.1 mg/dL (8.6-10.3) 05/26/17 03:33 Phosphorus 3.7 mg/dL (2.5-5.0) 05/26/17 03:33 Magnesium 2.3 mg/dL (1.9-2.7) 05/26/17 03:33 Total Bilirubin 1.2 mg/dL (0.3-1.0) H 05/26/17 03:33 Direct Bilirubin 0.46 mg/dL (0.0-0.2) H 05/24/17 04:45 AST 85 U/L (13-39) H 05/26/17 03:33 ALT 44 U/L (7-52) 05/26/17 03:33 Alkaline Phosphatase 362 U/L (34-104) H 05/26/17 03:33 Ammonia 50 umol/L (16-53) 05/24/17 04:45 Creatine Kinase 136 U/L (30-223) 04/14/17 14:55 Troponin I 0.01 ng/mL (0.01-0.05) 04/22/17 05:04 C-Reactive Protein 27.5 mg/dL (0.0-0.9) H 05/15/17 04:29 B-Natriuretic Peptide 33.7 pg/mL (5.0-100.0) 05/24/17 04:45 Total Protein 6.6 gm/dL (6.0-8.3) 05/26/17 03:33 Albumin 1.9 gm/dL (4.2-5.5) L 05/26/17 03:33 Globulin 4.7 gm/dL 05/26/17 03:33 Albumin/Globulin Ratio 0.4 (1.0-1.8) L 05/26/17 03:33 Prealbumin 10 mg/dL (10-36) 05/24/17 04:45 Triglycerides 397 mg/dL (<150) H 05/24/17 04:45 Cholesterol 83 mg/dL (<200) 05/24/17 04:45 LDL Cholesterol Direct 38 mg/dL (75-193) L 04/14/17 14:55 HDL Cholesterol 13 mg/dL (23-92) L 04/14/17 14:55 Amylase 53 U/L (29-103) 05/09/17 06:00 Lipase 85 U/L (11-82) H 05/09/17 06:00 Vitamin D 25-Hydroxy 25.8 ng/mL (30.0-100.0) L 05/18/17 04:50 Procalcitonin SEE REF LAB REPORT 05/05/17 04:35 PTH Interpretation (()) 05/18/17 04:50 PTH Intact <6 pg/mL (15-65) L 05/18/17 04:50 Calcium (PTH Intact) 9.6 mg/dL (8.7-10.2) 05/18/17 04:50 Urine Source [place] 05/18/17 16:30 Urine Color YELLOW 05/18/17 16:30 Urine Clarity CLOUDY (CLEAR) 05/18/17 16:30 Urine pH 5.5 (4.6 - 8.0) 05/18/17 16:30 Ur Specific [place] 1.010 (1.005-1.030) 05/18/17 16:30 Urine Protein NEGATIVE mg/dL (NEGATIVE) 05/18/17 16:30 Urine Glucose (UA) NEGATIVE mg/dL (NEGATIVE) 05/18/17 16:30 Urine Ketones NEGATIVE mg/dL (NEGATIVE) 05/18/17 16:30 Urine Blood MODERATE (NEGATIVE) H 05/18/17 16:30 Urine Nitrate NEGATIVE (NEGATIVE) 05/18/17 16:30 Urine Bilirubin NEGATIVE (NEGATIVE) 05/18/17 16:30 Urine Urobilinogen 0.2 E.U./dL (0.2 - 1.0) 05/18/17 16:30 Ur Leukocyte Esterase TRACE (NEGATIVE) H 05/18/17 16:30 Urine RBC 10-25 /hpf (0-5) H 05/18/17 16:30 Urine WBC 6-10 /hpf (0-5) H 05/18/17 16:30 Ur Epithelial Cells FEW /lpf (FEW) 05/18/17 16:30 Amorphous Sediment MANY URATES (NONE SEEN) 04/14/17 15:05 Urine Bacteria NONE SEEN /hpf (NONE SEEN) 05/18/17 16:30 Hyaline Casts 5-10 /lpf (0-2) H 05/18/17 16:30 Urine Sperm MANY /hpf (NONE SEEN) 05/18/17 16:30 Amikacin Peak 23.4 ug/mL (20.0-30.0) 05/19/17 16:02 Amikacin Trough 8.6 ug/mL (1.0-8.0) H 05/19/17 13:30 Random Amikacin 6.7 ug/ml (1.0-30.0) 05/17/17 04:25 Vancomycin Trough 13.5 ug/mL (10-20) 04/19/17 19:20 Helicobacter pylori Ab NEGATIVE (NEGATIVE) 05/04/17 10:05 Blood Type O POSITIVE 05/02/17 07:12 Antibody Screen NEGATIVE 05/02/17 07:12 Crossmatch See Detail 05/02/17 07:12 - Physical Exam Vitals and I&O: Vital Signs Temp 99.3 F 05/26/17 08:00 Pulse 90 05/26/17 10:06 Resp 28 05/26/17 09:59 BP 104/78 05/26/17 10:06 Pulse Ox 100 05/26/17 09:59 Intake & Output 05/25/17 05/26/17 05/26/17 18:59 06:59 18:59 Intake Total 3851.2 1350 806.5 Output Total 1500 1750 Balance 2351.2 -400 806.5 Weight (lbs) 103.079 kg 103.192 kg Intake: Intake, IV Amount 2651.2 150 806.5 Amikacin 300 mg In 101.2 Dextrose 5% 100 ml @ 100 mls/hr IV Q12H [facility] Rx#: [id number] Multivitamin Inj 10 ml In 2400 Dextrose 70% 1,740 ml In Amino Acids 10% 500 ml In Intralipids 20% 150 ml @ 100 mls/hr IV .Q24H [facility] Rx#:[id number] Sodium Chloride 0.45% 1, 756.5 000 ml @ 30 mls/hr IV . Q24H [facility] Rx#:[id number] Tigecycline 50 mg In 100 100 Sodium Chloride 0.9% 100 ml @ 100 mls/hr IV Q12HR [facility] Rx#:[id number] cefTAZidime 1 gm In 50 50 50 Sodium Chloride 0.9% 50 ml @ Per Protocol IV Q12HR [facility] Rx#:[id number] TPN/PPN 1200 1200 Output: Drainage 50 50 Medial Abdomen 50 50 Urine 1250 1500 Stool 200 Emesis 200 Active Medications: Current Medications Acetaminophen (Tylenol 650mg/20.3ml Suspension) 650 mg NG Q6H PRN PRN Reason: FEVER/PAIN Stop: 06/21/17 17:45 Last Admin: 05/25/17 21:44 Dose: 650 mg Albuterol/Ipratropium (Duoneb Neb) 3 ml HHN Q4HRT [facility] Stop: 06/15/17 14:59 Last Admin: 05/26/17 06:55 Dose: 3 ml Amiodarone HCl (Cordarone) 200 mg NG BID [facility] Stop: 06/24/17 23:14 Last Admin: 05/25/17 16:07 Dose: Not Given Budesonide (Pulmicort) 0.5 mg HHN BIDRT [facility] Stop: 06/15/17 18:59 Last Admin: 05/26/17 06:55 Dose: 0.5 mg Chlorhexidine Gluconate (Peridex) 15 ml MM [phone] [facility] Stop: 06/30/17 19:59 Last Admin: 05/26/17 10:02 Dose: 15 ml Enalaprilat (Vasotec) 2.5 mg IVP Q4HR PRN PRN Reason: SBP>150 Stop: 07/06/17 15:59 Famotidine (Pepcid) 20 mg IVP DAILY [facility] Stop: 07/18/17 08:59 Last Admin: 05/26/17 08:14 Dose: 20 mg Multivitamins/Minerals 10 ml/Dextrose/ Amino Acids/Electrolytes/ Fat Emulsion Intravenous 2,400 mls @ 100 mls/hr IV .Q24H [facility] Stop: 06/23/17 15:59 Last Admin: 05/25/17 16:05 Dose: 100 mls/hr Diltiazem HCl 125 mg/ Dextrose 125 mls @ 10 mls/hr IV TITR [facility]AN; 10 MG/HR PRN Reason: Protocol Stop: 07/06/17 11:14 Last Titration: 05/11/17 18:00 Dose: 0 mg/hr, 0 mls/hr Tigecycline 50 mg/ Sodium (Chloride) 100 mls @ 100 mls/hr IV Q12HR [facility] Stop: 07/13/17 20:59 Last Admin: 05/26/17 10:03 Dose: 100 mls/hr Ceftazidime 1 gm/ Sodium (Chloride) 50 mls @ 0 mls/hr IV Q12HR [facility] PRN Reason: Per Protocol Stop: 07/16/17 20:59 Last Infusion: 05/26/17 10:04 Dose: Infused Norepinephrine Bitartrate 4 mg (/ Dextrose) 254 mls @ 15.24 mls/hr IV TITR PRN ; Protocol; 4 MCG/MIN PRN Reason: BP MAINTENANCE (PER PROTOCOL) Stop: 07/18/17 10:59 Last Titration: 05/20/17 16:00 Dose: 0 mcg/min, 0 mls/hr Amikacin Sulfate 300 mg/ (Dextrose) 101.2 mls @ 100 mls/hr IV Q12H [facility] Stop: 07/20/17 13:59 Last Admin: 05/26/17 02:09 Dose: 100 mls/hr Sodium Chloride (Nacl 0.45%) 1,000 mls @ 30 mls/hr IV .Q24H [facility] Stop: 07/24/17 08:44 Last Admin: 05/26/17 10:08 Dose: 30 mls/hr Insulin Aspart (Novolog Insulin Sliding Scale) 0 units SUBQ Q6HR [facility] PRN Reason: Protocol Stop: 07/17/17 11:59 Last Admin: 05/26/17 06:35 Dose: Not Given Lactobacillus Rhamnosus (Culturelle) 1 each PO DAILY [facility] Stop: 07/16/17 08:59 Last Admin: 05/26/17 10:07 Dose: Not Given Lorazepam (Ativan) 1 mg IVP Q4HR PRN; Protocol PRN Reason: Agitation Stop: 07/25/17 10:34 Methylprednisolone Sodium Succinate (Solu-Medrol) 20 mg IV Q8HR [facility] Stop: 07/25/17 12:59 Metoclopramide HCl (Reglan) 10 mg IVP Q8HR [facility] Stop: 07/06/17 20:59 Last Admin: 05/26/17 05:42 Dose: 10 mg Metoprolol Tartrate (Lopressor) 25 mg PO BID [facility] Stop: 06/26/17 08:59 Last Admin: 05/26/17 10:06 Dose: Not Given Mineral Oil (Mineral Oil 30 Ml) 30 ml NG DAILY [facility] Stop: 07/04/17 12:29 Last Admin: 05/26/17 10:05 Dose: Not Given Miscellaneous (Vte Chemical Prophylaxis Screen/ Admission) 1 ea PRN PRN PRN Reason: PROTOCOL Stop: 07/01/17 14:44 Miscellaneous (Amikacin Iv Per Pharmacy) 1 ea PRN PRN PRN Reason: PROTOCOL Stop: 07/13/17 18:39 Miscellaneous (Probiotic Screen) 1 ea PRN PRN PRN Reason: PROTOCOL Stop: 07/15/17 10:37 Miscellaneous (Tpn Per Pharmacy) 1 ea PRN PRN PRN Reason: PROTOCOL Stop: 07/17/17 15:12 Morphine Sulfate (Morphine) 2 mg IVP Q4H PRN PRN Reason: PAIN Stop: 07/11/17 16:49 Last Admin: 05/26/17 08:15 Dose: 2 mg Sulfacetamide Sodium (Sulamyd 10% Oph Soln) 1 drop EACH EYE Q6HR [facility] Stop: 07/16/17 11:59 Last Admin: 05/26/17 05:41 Dose: 1 drop General: Other (sedated n intubated.) HEENT: Atraumatic, PERRLA, EOMI, Mucous membr. moist/pink, Other (NG tube+) Neck: Supple, +2 carotid pulse wo bruit, Other (tracheostomy noted.) Cardiovascular: Regular rate, Normal S1, Normal S2 Lungs: Other (diffuse rhonchi.) Abdomen: Soft, Other ( wound VAC anterior open abdominal wall wound. L colostomy no out put. G tube +) Extremities: Edema, Other (no edema and cyanosis.) Neurological: Reflexes 2+, Other (Patient is not following commands.) Psych/Mental Status: Other (Not following commands.) - Procedures Procedures: Procedures Procedure Code Date BYPASS SIGMOID COLON TO CUTANEOUS, OPEN APPROACH [id number] 04/14/17 BYPASS TRACHEA TO CUTANEOUS WITH TRACH DEV, OPEN APPROACH [id number] 04/14/17 INCISION OF WINDPIPE 92294 04/14/17 INSERT EMERGENCY AIRWAY 77239 04/14/17 INSERTION OF ENDOTRACHEAL AIRWAY INTO TRACHEA, VIA OPENING [id number] 04/14/17 INSERTION OF INFUSION DEV INTO SUP VENA CAVA, PERC APPROACH [id number] 04/14/17 PARTIAL REMOVAL OF COLON 73773 04/14/[address] PL[address] CATHETER IN VEIN 98611 04/14/17 RESECTION OF SIGMOID COLON, OPEN APPROACH [id number] 04/14/17 RESPIRATORY VENTILATION, 24-96 CONSECUTIVE HOURS [id number] 04/14/17 VENT MGMT INPAT INIT DAY 69725 04/14/17 VENT MGMT INPAT SUBQ DAY 72146 04/14/17 Assessment/Plan - Problem List Patient Problems: All Active Problems Abscess of sigmoid colon due to diverticulitis (Acute) K57.20 Diverticulitis of sigmoid colon (Acute) K57.32 Obesity (Acute) E66.9 Perforation of sigmoid colon due to diverticulitis (Acute) K57.20 Peritonitis (acute) generalized (Acute) K65.0 - Assessment Assessment: # s/p ex lap for perforated diverticulitis, now vent dependent # Polymicrobial peritonitis # TPN dependent with NG in place - PEG placed on 05/25, can start feeds as per supervisor reclamation recommendations - Care for perforated viscous and peritonitis as per ID and surgery # Elevated LFTs Suspect this may be due to URIBE vs secondary effect of peritonitis. Expect this to slowly improve to patient's baseline levels. NO evidence of obstructive jaundice Thank you for allowing me to participate in the care of this patient.
[2017-05-26] MEDS: methylPREDNISolone SS 40 mg Vial IV SCH ×2 (12:43→20:31)
[2017-05-26] MEDS: TPN 10%-70% CUSTOM IV SCH (16:50)
[2017-05-26] MEDS: Morphine Sulfate 2 mg/mL 1mL Syr IVP PRN (18:02)
--- NOTE | 2017-05-26 20:35 | Progress Notes ---
DATE: 05/26/2017 PROBLEM LIST: 1. Persistent respiratory failure. 2. Chronic recurrent encephalopathy. 3. Possibly abdominal sepsis. 4. Obstructive sleep apnea syndrome, suspected. SYMPTOMS: The patient appears to be little bit more awake, looking from side to side, no respiratory distress, etc., mildly tachypneic. PHYSICAL EXAMINATION: VITAL SIGNS: Temperature is 98.3, heart rate is in 90s, blood pressure 94/80, saturation 100%. NECK: Neck veins could not visualize. CHEST: Shows diminished air entry with occasional rhonchi. HEART: Regular. 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 LABORATORY DATA: WBC is 12.5, hemoglobin 9.1. Electrolytes are okay with BUN of 83 with creatinine of 1.7, slightly abnormal LFTs, question related to the TPN. ASSESSMENT: The patient clinically appears to be stable, unchanged, little bit better today mentally botello. PLANS AND SUGGESTIONS: We will continue current treatment, question is consideration with G-tube feeding, etc, if it is visible or not and go from there. JOB# [id number]
[2017-05-27] MEDS: Albuterol/Ipratropium Neb 3 ML AERS HHN SCH ×6 (02:17→23:08)
[2017-05-27] MEDS: Morphine Sulfate 2 mg/mL 1mL Syr IVP PRN ×3 (03:30→20:38)
[2017-05-27] MEDS: methylPREDNISolone SS 40 mg Vial IV SCH ×3 (04:36→20:21)
[2017-05-27] MEDS: Metoclopramide 5 mg/mL 2mL Vial IVP SCH ×3 (04:37→20:15)
[2017-05-27 05:32] LABS: HEMATOCRIT 30.1 % (39.0-49.0); HEMOGLOBIN 9.9 gm/dL (13.2-17.3); MEAN CELL VOLUME 82.6 fl (80-99); MEAN CORPUSCULAR HEMOGLOBIN 27.1 pg (26.0-30.0); MEAN CORPUSCULAR HGB CONC 32.8 pg (28.0-36.0); MEAN PLATELET VOLUME 10.9 fl; PLATELET COUNT 225 Th/cmm (150-400); RED BLOOD COUNT 3.64 Mil/cmm (4.30-5.70); RED CELL DISTRIBUTION WIDTH 18.7 % (11.5-20.0)
[2017-05-27] MEDS: INSULIN ASPART SLIDING SCALE 100 UNITS/ML UNIT SUBQ SCH ×3 (05:42→17:00)
[2017-05-27 06:26] LABS: ALB/GLOB RATIO 0.4 (1.0-1.8); ALKALINE PHOSPHATASE 470 U/L (34-104); ANION GAP 8.9 (7.0-16.0); BILIRUBIN,TOTAL 1.3 mg/dL (0.3-1.0); BUN - UREA NITROGEN 71 mg/dL (7-25); BUN/CREATININE RATIO 59.2; CALCIUM SERUM 8.9 mg/dL (8.6-10.3); CHLORIDE 114 mEq/L (98-107); CREATININE - SERUM 1.2 mg/dL (0.7-1.3); GLUCOSE 203 mg/dL (70-105); MAGNESIUM 2.3 mg/dL (1.9-2.7); PHOSPHOROUS 4.5 mg/dL (2.5-5.0); POTASSIUM SERUM 4.9 mEq/L (3.5-5.1); SGOT 105 U/L (13-39); SGPT/ALT 55 U/L (7-52); SODIUM SERUM 137 mEq/L (136-145)
[2017-05-27] MEDS: Budesonide 0.5 Mg/2 mL Ud HHN SCH ×2 (07:05→19:23)
--- NOTE | 2017-05-27 07:20 | General Progress Note ---
Subjective - Review of Systems Service Date: 05/27/17 Subjective: encephalopathy, obtunded, nonverbal Objective - Results Result Diagrams: 05/27/17 04:36 05/27/17 04:36 Recent Labs: Laboratory Last Values WBC 9.0 Th/cmm (4.8-10.8) D 05/27/17 04:36 RBC 3.64 Mil/cmm (4.30-5.70) L 05/27/17 04:36 Hgb 9.9 gm/dL (13.2-17.3) L 05/27/17 04:36 Hct 30.1 % (39.0-49.0) L 05/27/17 04:36 MCV 82.6 fl (80-99) 05/27/17 04:36 MCH 27.1 pg (26.0-30.0) 05/27/17 04:36 MCHC Differential 32.8 pg (28.0-36.0) 05/27/17 04:36 RDW 18.7 % (11.5-20.0) 05/27/17 04:36 Plt Count 225 Th/cmm (150-400) 05/27/17 04:36 MPV 10.9 fl 05/27/17 04:36 Neutrophils % [facility] 05/25/17 04:36 Band Neutrophils % 1 % (0-10) 05/26/17 03:33 Lymphocytes % [facility]AT[facility] HOSPITAL[facility] 05/25/17 04:36 Monocytes % [facility] HOSPITAL[facility] 05/25/17 04:36 Eosinophils % [facility]IATR[facility] HOSPITAL[facility] 05/25/17 04:36 Basophils % P[facility]IATRIC HOSPITALIST 05/25/17 04:36 Neutrophils (Manual) 41 % (40-80) 05/26/17 03:33 Lymphocytes 30 % (20-50) 05/26/17 03:33 Monocytes 12 % (2-10) H 05/26/17 03:33 Eosinophils 16 % (0-5) H 05/26/17 03:33 Basophils 1 % (0-3) 05/19/17 05:15 Metamyelocytes 1 % (0-0) H 04/22/17 05:04 Atypical Lymphocytes 1 % 05/21/17 04:30 Platelet Estimate ADEQUATE (NORMAL) 05/26/17 03:33 Platelet Morphology GIANT PLATELETS SEEN (NORMAL) 05/26/17 03:33 Polychromasia 1+ 05/26/17 03:33 Anisocytosis 1+ 08/23/17 03:33 Microcytosis 1+ 05/02/17 05:15 RBC Morph Micro Appear ABNORMAL (NORMAL) 05/26/17 03:33 ESR > 140 mm/hr (0-20) H 04/20/17 07:00 Plt Count 276 Th/cmm (150-750) 05/19/17 07:37 PT 13.5 SECONDS (9.5-11.5) H 05/25/17 04:36 INR 1.28 (0.5-1.4) 05/25/17 04:36 PTT (Actin FS) 34.3 SECONDS (26.0-38.0) 05/25/17 04:36 Fibrinogen 222.0 mg/dL (200.0-400.0) 05/19/17 07:37 D-Dimer 3160 ng/mL (100-400) H 05/19/17 07:37 Specimen Source Arterial 05/22/17 09:00 Sample Site Left Radial 05/22/17 09:00 pH 7.53 (7.35-7.45) H 05/22/17 09:00 pCO2 30.0 mmHg (35.0-45.0) L 05/22/17 09:00 pO2 128.0 mmHg (80.0-100.0) H 05/22/17 09:00 HCO3 27.3 mEq/L (20.0-26.0) H 05/22/17 09:00 Base Excess 3.0 mEq/L (-3.0-3.0) 05/22/17 09:00 O2 Saturation 99.0 % (92.0-100.0) 05/22/17 09:00 Chau Test YES 05/22/17 09:00 Vent Rate 16 05/22/17 09:00 Inspired O2 30 05/22/17 09:00 Tidal Volume 650 05/22/17 09:00 PEEP 3 05/22/17 09:00 Pressure (ins/psv/peep) NA 05/22/17 09:00 Critical Value SH 05/22/17 09:00 Sodium 137 mEq/L (136-145) 05/27/17 04:36 Potassium 4.9 mEq/L (3.5-5.1) 05/27/17 04:36 Chloride 114 mEq/L (98-107) H 05/27/17 04:36 Carbon Dioxide 19.0 mEq/L (21.0-31.0) L 05/27/17 04:36 Anion Gap 8.9 (7.0-16.0) 05/27/17 04:36 BUN 71 mg/dL (7-25) H 05/27/17 04:36 Creatinine 1.2 mg/dL (0.7-1.3) 05/27/17 04:36 Est GFR ( Amer) > 60.0 ml/min (>90) 05/27/17 04:36 Est GFR (Non-Af Amer) > 60.0 ml/min 05/27/17 04:36 BUN/Creatinine Ratio 59.2 05/27/17 04:36 Glucose 203 mg/dL (70-105) H 05/27/17 04:36 POC Glucose 211 MG/DL (70 - 105) H 05/27/17 05:34 Hemoglobin A1c % 6.5 % (4.0-6.0) H 05/22/17 07:52 Whole Bld Lactic Acid 1.66 mmol/L (0.60-1.99) 05/12/17 04:40 Uric Acid 3.6 mg/dL (4.4-7.6) L 04/20/17 07:00 Calcium 8.9 mg/dL (8.6-10.3) 05/27/17 04:36 Phosphorus 4.5 mg/dL (2.5-5.0) 05/27/17 04:36 Magnesium 2.3 mg/dL (1.9-2.7) 05/27/17 04:36 Total Bilirubin 1.3 mg/dL (0.3-1.0) H 05/27/17 04:36 Direct Bilirubin 0.46 mg/dL (0.0-0.2) H 05/24/17 04:45 AST 105 U/L (13-39) H 05/27/17 04:36 ALT 55 U/L (7-52) H 05/27/17 04:36 Alkaline Phosphatase 470 U/L (34-104) H 05/27/17 04:36 Ammonia 50 umol/L (16-53) 05/24/17 04:45 Creatine Kinase 136 U/L (30-223) 04/14/17 14:55 Troponin I 0.01 ng/mL (0.01-0.05) 04/22/17 05:04 C-Reactive Protein 27.5 mg/dL (0.0-0.9) H 05/15/17 04:29 B-Natriuretic Peptide 33.7 pg/mL (5.0-100.0) 05/24/17 04:45 Total Protein 7.3 gm/dL (6.0-8.3) 05/27/17 04:36 Albumin 2.1 gm/dL (4.2-5.5) L 05/27/17 04:36 Globulin 5.2 gm/dL 05/27/17 04:36 Albumin/Globulin Ratio 0.4 (1.0-1.8) L 05/27/17 04:36 Prealbumin 10 mg/dL (10-36) 05/24/17 04:45 Triglycerides 397 mg/dL (<150) H 05/24/17 04:45 Cholesterol 83 mg/dL (<200) 05/24/17 04:45 LDL Cholesterol Direct 38 mg/dL (75-193) L 04/14/17 14:55 HDL Cholesterol 13 mg/dL (23-92) L 04/14/17 14:55 Amylase 53 U/L (29-103) 05/09/17 06:00 Lipase 85 U/L (11-82) H 05/09/17 06:00 Vitamin D 25-Hydroxy 25.8 ng/mL (30.0-100.0) L 05/18/17 04:50 Procalcitonin SEE REF LAB REPORT 05/05/17 04:35 PTH Interpretation (()) 05/18/17 04:50 PTH Intact <6 pg/mL (15-65) L 05/18/17 04:50 Calcium (PTH Intact) 9.6 mg/dL (8.7-10.2) 05/18/17 04:50 Urine Source SEN PORT 05/18/17 16:30 Urine Color YELLOW 05/18/17 16:30 Urine Clarity CLOUDY (CLEAR) 05/18/17 16:30 Urine pH 5.5 (4.6 - 8.0) 05/18/17 16:30 Ur Specific [place] 1.010 (1.005-1.030) 05/18/17 16:30 Urine Protein NEGATIVE mg/dL (NEGATIVE) 05/18/17 16:30 Urine Glucose (UA) NEGATIVE mg/dL (NEGATIVE) 05/18/17 16:30 Urine Ketones NEGATIVE mg/dL (NEGATIVE) 05/18/17 16:30 Urine Blood MODERATE (NEGATIVE) H 05/18/17 16:30 Urine Nitrate NEGATIVE (NEGATIVE) 05/18/17 16:30 Urine Bilirubin NEGATIVE (NEGATIVE) 05/18/17 16:30 Urine Urobilinogen 0.2 E.U./dL (0.2 - 1.0) 05/18/17 16:30 Ur Leukocyte Esterase TRACE (NEGATIVE) H 05/18/17 16:30 Urine RBC 10-25 /hpf (0-5) H 05/18/17 16:30 Urine WBC 6-10 /hpf (0-5) H 05/18/17 16:30 Ur Epithelial Cells FEW /lpf (FEW) 05/18/17 16:30 Amorphous Sediment MANY URATES (NONE SEEN) 04/14/17 15:05 Urine Bacteria NONE SEEN /hpf (NONE SEEN) 05/18/17 16:30 Hyaline Casts 5-10 /lpf (0-2) H 05/18/17 16:30 Urine Sperm MANY /hpf (NONE SEEN) 05/18/17 16:30 Amikacin Peak 23.4 ug/mL (20.0-30.0) 05/19/17 16:02 Amikacin Trough 8.6 ug/mL (1.0-8.0) H 05/19/17 13:30 Random Amikacin 6.7 ug/ml (1.0-30.0) 05/17/17 04:25 Vancomycin Trough 13.5 ug/mL (10-20) 04/19/17 19:20 Helicobacter pylori Ab NEGATIVE (NEGATIVE) 05/04/17 10:05 Blood Type O POSITIVE 05/02/17 07:12 Antibody Screen NEGATIVE 05/02/17 07:12 Crossmatch See Detail 05/02/17 07:12 - Physical Exam Vitals and I&O: Vital Signs Temp 96.9 F 05/27/17 04:00 Pulse 77 05/27/17 07:05 Resp 19 05/27/17 07:00 BP 116/69 05/27/17 07:00 Pulse Ox 100 05/27/17 07:05 Intake & Output 05/26/17 05/27/17 05/27/17 18:59 06:59 18:59 Intake Total 4768.9 1671.2 Output Total 2110 1500 Balance 2658.9 171.2 Weight (lbs) 102.965 kg 103.504 kg Intake: Intake, IV Amount 3508.9 251.2 Amikacin 300 mg In 202.4 101.2 Dextrose 5% 100 ml @ 100 mls/hr IV Q12H [facility] Rx#: [id number] Multivitamin Inj 10 ml In 2400 Dextrose 70% 1,740 ml In Amino Acids 10% 500 ml In Intralipids 20% 150 ml @ 100 mls/hr IV .Q24H [facility] Rx#:[id number] Sodium Chloride 0.45% 1, 756.5 000 ml @ 30 mls/hr IV . Q24H [facility] Rx#:[id number] Tigecycline 50 mg In 100 100 Sodium Chloride 0.9% 100 ml @ 100 mls/hr IV Q12HR [facility] Rx#:[id number] cefTAZidime 1 gm In 50 50 Sodium Chloride 0.9% 50 ml @ Per Protocol IV Q12HR [facility] Rx#:[id number] Tube Feeding 60 120 TPN/PPN 1200 1200 Other 100 Output: Gastric Drainage 10 Urine 2100 1500 Other: # Bowel Movements 0 Active Medications: Current Medications Acetaminophen (Tylenol 650mg/20.3ml Suspension) 650 mg NG Q6H PRN PRN Reason: FEVER/PAIN Stop: 06/21/17 17:45 Last Admin: 05/25/17 21:44 Dose: 650 mg Albuterol/Ipratropium (Duoneb Neb) 3 ml HHN Q4HRT [facility] Stop: 06/15/17 14:59 Last Admin: 05/27/17 07:05 Dose: 3 ml Budesonide (Pulmicort) 0.5 mg HHN BIDRT [facility] Stop: 06/15/17 18:59 Last Admin: 05/27/17 07:05 Dose: 0.5 mg Chlorhexidine Gluconate (Peridex) 15 ml MM 0800,1999 [facility] Stop: 06/30/17 19:59 Last Admin: 05/26/17 19:33 Dose: 15 ml Enalaprilat (Vasotec) 2.5 mg IVP Q4HR PRN PRN Reason: SBP>150 Stop: 07/06/17 15:59 Famotidine (Pepcid) 20 mg IVP DAILY [facility] Stop: 07/18/17 08:59 Last Admin: 05/26/17 08:14 Dose: 20 mg Multivitamins/Minerals 10 ml/Dextrose/ Amino Acids/Electrolytes/ Fat Emulsion Intravenous 2,400 mls @ 100 mls/hr IV .Q24H [facility] Stop: 06/23/17 15:59 Last Admin: 05/26/17 16:50 Dose: 100 mls/hr Diltiazem HCl 125 mg/ Dextrose 125 mls @ 10 mls/hr IV TITR [facility]; 10 MG/HR PRN Reason: Protocol Stop: 07/06/17 11:14 Last Titration: 05/11/17 18:00 Dose: 0 mg/hr, 0 mls/hr Tigecycline 50 mg/ Sodium (Chloride) 100 mls @ 100 mls/hr IV Q12HR [facility] Stop: 07/13/17 20:59 Last Infusion: 05/26/17 22:20 Dose: Infused Ceftazidime 1 gm/ Sodium (Chloride) 50 mls @ 0 mls/hr IV Q12HR [facility] PRN Reason: Per Protocol Stop: 07/16/17 20:59 Last Infusion: 05/26/17 21:05 Dose: Infused Norepinephrine Bitartrate 4 mg (/ Dextrose) 254 mls @ 15.24 mls/hr IV TITR PRN ; Protocol; 4 MCG/MIN PRN Reason: BP MAINTENANCE (PER PROTOCOL) Stop: 07/18/17 10:59 Last Titration: 05/20/17 16:00 Dose: 0 mcg/min, 0 mls/hr Amikacin Sulfate 300 mg/ (Dextrose) 101.2 mls @ 100 mls/hr IV Q12H [facility] Stop: 07/20/17 13:59 Last Infusion: 05/27/17 02:45 Dose: Infused Sodium Chloride (Nacl 0.45%) 1,000 mls @ 30 mls/hr IV .Q24H [facility] Stop: 07/24/17 08:44 Last Admin: 05/26/17 10:08 Dose: 30 mls/hr Insulin Aspart (Novolog Insulin Sliding Scale) 0 units SUBQ Q6HR [facility] PRN Reason: Protocol Stop: 07/17/17 11:59 Last Admin: 05/27/17 05:42 Dose: 4 units Lactobacillus Rhamnosus (Culturelle) 1 each PO DAILY [facility] Stop: 07/16/17 08:59 Last Admin: 05/26/17 10:07 Dose: Not Given Lorazepam (Ativan) 1 mg IVP Q4HR PRN; Protocol PRN Reason: Agitation Stop: 07/25/17 10:34 Last Admin: 05/27/17 05:39 Dose: 1 mg Methylprednisolone Sodium Succinate (Solu-Medrol) 20 mg IV Q8HR [facility] Stop: 07/25/17 12:59 Last Admin: 05/27/17 04:36 Dose: 20 mg Metoclopramide HCl (Reglan) 10 mg IVP Q8HR [facility] Stop: 07/06/17 20:59 Last Admin: 05/27/17 04:37 Dose: 10 mg Metoprolol Tartrate (Lopressor) 25 mg PO BID [facility] Stop: 06/26/17 08:59 Last Admin: 05/26/17 16:58 Dose: Not Given Mineral Oil (Mineral Oil 30 Ml) 30 ml NG DAILY [facility] Stop: 07/04/17 12:29 Last Admin: 05/26/17 10:05 Dose: Not Given Miscellaneous (Vte Chemical Prophylaxis Screen/ Admission) 1 ea PRN PRN PRN Reason: PROTOCOL Stop: 07/01/17 14:44 Miscellaneous (Amikacin Iv Per Pharmacy) 1 [facility] PRN PRN PRN Reason: PROTOCOL Stop: 07/13/17 18:39 Miscellaneous (Probiotic Screen) 1 [facility] PRN PRN PRN Reason: PROTOCOL Stop: 07/15/17 10:37 Miscellaneous (Tpn Per Pharmacy) 1 [facility] PRN PRN PRN Reason: PROTOCOL Stop: 07/17/17 15:12 Morphine Sulfate (Morphine) 2 mg IVP Q4H PRN PRN Reason: PAIN Stop: 07/25/17 16:08 Last Admin: 05/27/17 03:30 Dose: 2 mg Sulfacetamide Sodium (Sulamyd 10% Oph Soln) 1 drop EACH EYE Q6HR [facility] Stop: 07/16/17 11:59 Last Admin: 05/27/17 05:30 Dose: 1 drop General: Other (sedated n intubated.) HEENT: Atraumatic, PERRLA, EOMI, Mucous membr. moist/pink, Other (NG tube+) Neck: Supple, +2 carotid pulse wo bruit, Other (tracheostomy noted.) Cardiovascular: Regular rate, Normal S1, Normal S2 Lungs: Other (diffuse rhonchi.) Abdomen: Soft, Other ( wound VAC anterior open abdominal wall wound. L colostomy no out put. G tube +) Extremities: Edema, Other (no edema and cyanosis.) Neurological: Reflexes 2+, Other (Patient is not following commands.) Psych/Mental Status: Other (Not following commands.) - Procedures Procedures: Procedures Procedure Code Date BYPASS SIGMOID COLON TO CUTANEOUS, OPEN APPROACH [id number] 04/14/17 BYPASS TRACHEA TO CUTANEOUS WITH TRACH DEV, OPEN APPROACH [id number] 04/14/17 INCISION OF WINDPIPE 83752 04/14/17 INSERT EMERGENCY AIRWAY 22873 04/14/17 INSERTION OF ENDOTRACHEAL AIRWAY INTO TRACHEA, VIA OPENING [id number] 04/14/17 INSERTION OF INFUSION DEV INTO SUP VENA CAVA, PERC APPROACH [id number] 04/14/17 PARTIAL REMOVAL OF COLON 20792 04/14/[address] PL[address] CATHETER IN VEIN 50455 04/14/17 RESECTION OF SIGMOID COLON, OPEN APPROACH [id number] 04/14/17 RESPIRATORY VENTILATION, 24-96 CONSECUTIVE HOURS [id number] 04/14/17 VENT MGMT INPAT INIT DAY 90189 04/14/17 VENT MGMT INPAT SUBQ DAY 39570 04/14/17 Assessment/Plan - Problem List Patient Problems: All Active Problems Abscess of sigmoid colon due to diverticulitis (Acute) K57.20 Diverticulitis of sigmoid colon (Acute) K57.32 Obesity (Acute) E66.9 Perforation of sigmoid colon due to diverticulitis (Acute) K57.20 Peritonitis (acute) generalized (Acute) K65.0 - Assessment Assessment: s/p ex lap, sigmoid colectomy, drainage of peritonitis, lysis adhesions, ROLANDO drain placement 04/14 icu status encephalopathic, confused, obtunded, intubated. continue IVfluids +TPN renal insufficiency, elevated BUN/creat dvt prophylaxis Lovenox SQ colostomy end necrosed and sloughed, severely retracted, but functional w/ stool output..... poor candidate for revision of colostomy open abd wound, wound vac in place, changed q 3days, wound marge, still some yellow slough. continue iv abx. sen cath supportive care.... s/w family; guarded prognosis. EGD 05/04 results noted by Reyes/GI peptic ulcer disease, NGT trauma multiple prior CT abd/pelvis....postop changes, no obvious drainable intra-abd abscess or collections tachycardia, normal WBC electrolyte derangement, renal f/u, fluid management. s/p EGD/PEG, tolerating TF currently s/p trach 05/21 and changed central line LIJ; continue wound vac to open abd wound. colostomy is functional DVT prophylaxis stable for transfer to SNF consider outpatient elective revision of colostomy, possibly reversal of colostomy if overall status improves. Nutritional Asmnt/Malnutr-PDOC - Dietary Evaluation Malnutrition Findings (Please click <Entered> for more info): Nutritional Asmnt/Malnutrition Start: 04/19/17 14: 21 Text: Status: Complete Freq: Document 04/19/17 14:21 GSUN (Rec: 04/19/17 14:58 [id number]) Nutritional Asmnt/Malnutrition Patient General Information Nutritional Screening Moderate Risk Screening Diagnosis Sepsis, diverticulitis, peritonitis Pertinent Medical Hx/Surgical Hx Asthma, diverticulosis Subjective Information 56 year old male frome home. Pt was restless, moving extremities during visit. 04/14 : sigmoid colectomy, end colostomy, abscess drainage, diffuse peritontis. 04/16: pt started PPN. 04/17: central line and started on TPN. Spoke to family at bedside, explained parenteral nutrition , family undersoto and has no further question at this time. Weight discrepancies noted in EMR, family does not know UBW , estimated nutritional needs based Current Diet Order/ Nutrition Support TPN D10% AA4.25% at 90ml/hr with IL20% 150ml, providing 1401.6kcal Pertinent Medications Dilaudid, Novolog, Culturelle, Magnesium Sulfate, Vancomycin , TPN, Morphine, Multivitamins , Zofran, Protonix, Nacl0.9% Pertinent Labs 04/14: triglycerides 106, total bilirubin 1.1H, glucose 116H 04/17: magnesium 2.5, phsophorus 3.2 04/19: magnesium 1.8L, phosphorus 2.4L, BUN 28H, creatinine 1.3, glucose 154H, total bilirubin 1.1H, triglycerides 238H Nutritional Hx/Data Height 1.7 m Height (Calculated Centimeters) 170.2 Current Weight (lbs) 95.254 kg Weight (Calculated Kilograms) 95.3 Weight (Calculated Grams) 35959.4 Edson Body Weight 148 Weight Status Overweight GI Symptoms Skin Integrity/Comment: Gilmer 14. Facial non-pitting 1+, bilateral hands pitting 1+ Estimated Nutritional Goals Calories/Kcals/Kg IBW 148/67.3kg Kcals Calculated 2018-2356kcal (30-35kcal/kg) Protein Calculated 101-135g (1.5-2g/kg) Fluid: ml Per MD Nutritional Problem 1. Problem Problem Altered GI function related to Etiology abscess and perforation of sigmoid colon due to diverticulitis aeb Signs/Symptoms: post-operative, on TPN Intervention/Recommendation Comments 1. Recommend TPN D15% AA5.5% at 100ml/hr with IL20% 150ml, providing 2400ml total volume, 2052kcal, 132g protein, meeting 100% of estimated nutritional needs. Carb load 2 .6mg/kg/min (using 210lb adm weight). 2. Monitor for possible refeeding syndrome, 04/18: phsophorus 2.1L, 04/19: magnesium 1.9. 3. Monitor triglycerides, total bilirubin, glucose, renal labs. Expected Outcomes/Goals Expected Outcomes/Goals 1. Pt to meet 100% of estimated nutritional needs on TPN.
[2017-05-27] MEDS: Chlorhexidine Gluconate 0.12% 15mL Mouthwash MM SCH ×2 (08:00→20:05)
--- NOTE | 2017-05-27 08:46 | General Progress Note ---
Subjective - Review of Systems Subjective: Patient is seen and examined. Patient currently on vent. I did discuss with RN about patient's treatment plan. S/P PEG. Chart reviewed.Patient is not following commands. Objective - Results Result Diagrams: 05/27/17 04:36 05/27/17 04:36 Recent Labs: Laboratory Last Values WBC 9.0 Th/cmm (4.8-10.8) D 05/27/17 04:36 RBC 3.64 Mil/cmm (4.30-5.70) L 05/27/17 04:36 Hgb 9.9 gm/dL (13.2-17.3) L 05/27/17 04:36 Hct 30.1 % (39.0-49.0) L 05/27/17 04:36 MCV 82.6 fl (80-99) 05/27/17 04:36 MCH 27.1 pg (26.0-30.0) 05/27/17 04:36 MCHC Differential 32.8 pg (28.0-36.0) 05/27/17 04:36 RDW 18.7 % (11.5-20.0) 05/27/17 04:36 Plt Count 225 Th/cmm (150-400) 05/27/17 04:36 MPV 10.9 fl 05/27/17 04:36 Neutrophils % [employer] 05/25/17 04:36 Band Neutrophils % 1 % (0-10) 05/26/17 03:33 Lymphocytes % [employer] 05/25/17 04:36 Monocytes % [employer] 05/25/17 04:36 Eosinophils % [employer] 05/25/17 04:36 Basophils % [employer] 05/25/17 04:36 Neutrophils (Manual) 41 % (40-80) 05/26/17 03:33 Lymphocytes 30 % (20-50) 05/26/17 03:33 Monocytes 12 % (2-10) H 05/26/17 03:33 Eosinophils 16 % (0-5) H 05/26/17 03:33 Basophils 1 % (0-3) 05/19/17 05:15 Metamyelocytes 1 % (0-0) H 04/22/17 05:04 Atypical Lymphocytes 1 % 05/21/17 04:30 Platelet Estimate ADEQUATE (NORMAL) 05/26/17 03:33 Platelet Morphology GIANT PLATELETS SEEN (NORMAL) 05/26/17 03:33 Polychromasia 1+ 05/26/17 03:33 Anisocytosis 1+ 05/26/17 03:33 Microcytosis 1+ 05/02/17 05:15 RBC Morph Micro Appear ABNORMAL (NORMAL) 05/26/17 03:33 ESR > 140 mm/hr (0-20) H 04/20/17 07:00 Plt Count 276 Th/cmm (150-750) 05/19/17 07:37 PT 13.5 SECONDS (9.5-11.5) H 05/25/17 04:36 INR 1.28 (0.5-1.4) 05/25/17 04:36 PTT (Actin FS) 34.3 SECONDS (26.0-38.0) 05/25/17 04:36 Fibrinogen 222.0 mg/dL (200.0-400.0) 05/19/17 07:37 D-Dimer 3160 ng/mL (100-400) H 05/19/17 07:37 Specimen Source Arterial 05/22/17 09:00 Sample Site Left Radial 05/22/17 09:00 pH 7.53 (7.35-7.45) H 05/22/17 09:00 pCO2 30.0 mmHg (35.0-45.0) L 05/22/17 09:00 pO2 128.0 mmHg (80.0-100.0) H 05/22/17 09:00 HCO3 27.3 mEq/L (20.0-26.0) H 05/22/17 09:00 Base Excess 3.0 mEq/L (-3.0-3.0) 05/22/17 09:00 O2 Saturation 99.0 % (92.0-100.0) 05/22/17 09:00 Chau Test YES 05/22/17 09:00 Vent Rate 16 05/22/17 09:00 Inspired O2 30 05/22/17 09:00 Tidal Volume 650 05/22/17 09:00 PEEP 3 05/22/17 09:00 Pressure (ins/psv/peep) NA 05/22/17 09:00 Critical Value SH 05/22/17 09:00 Sodium 137 mEq/L (136-145) 05/27/17 04:36 Potassium 4.9 mEq/L (3.5-5.1) 05/27/17 04:36 Chloride 114 mEq/L (98-107) H 05/27/17 04:36 Carbon Dioxide 19.0 mEq/L (21.0-31.0) L 05/27/17 04:36 Anion Gap 8.9 (7.0-16.0) 05/27/17 04:36 BUN 71 mg/dL (7-25) H 05/27/17 04:36 Creatinine 1.2 mg/dL (0.7-1.3) 05/27/17 04:36 Est GFR ( Amer) > 60.0 ml/min (>90) 05/27/17 04:36 Est GFR (Non-Af Amer) > 60.0 ml/min 05/27/17 04:36 BUN/Creatinine Ratio 59.2 05/27/17 04:36 Glucose 203 mg/dL (70-105) H 05/27/17 04:36 POC Glucose 211 MG/DL (70 - 105) H 05/27/17 05:34 Hemoglobin A1c % 6.5 % (4.0-6.0) H 05/22/17 07:52 Whole Bld Lactic Acid 1.66 mmol/L (0.60-1.99) 05/12/17 04:40 Uric Acid 3.6 mg/dL (4.4-7.6) L 04/20/17 07:00 Calcium 8.9 mg/dL (8.6-10.3) 05/27/17 04:36 Phosphorus 4.5 mg/dL (2.5-5.0) 05/27/17 04:36 Magnesium 2.3 mg/dL (1.9-2.7) 05/27/17 04:36 Total Bilirubin 1.3 mg/dL (0.3-1.0) H 05/27/17 04:36 Direct Bilirubin 0.46 mg/dL (0.0-0.2) H 05/24/17 04:45 AST 105 U/L (13-39) H 05/27/17 04:36 ALT 55 U/L (7-52) H 05/27/17 04:36 Alkaline Phosphatase 470 U/L (34-104) H 05/27/17 04:36 Ammonia 50 umol/L (16-53) 05/24/17 04:45 Creatine Kinase 136 U/L (30-223) 04/14/17 14:55 Troponin I 0.01 ng/mL (0.01-0.05) 04/22/17 05:04 C-Reactive Protein 27.5 mg/dL (0.0-0.9) H 05/15/17 04:29 B-Natriuretic Peptide 33.7 pg/mL (5.0-100.0) 05/24/17 04:45 Total Protein 7.3 gm/dL (6.0-8.3) 05/27/17 04:36 Albumin 2.1 gm/dL (4.2-5.5) L 05/27/17 04:36 Globulin 5.2 gm/dL 05/27/17 04:36 Albumin/Globulin Ratio 0.4 (1.0-1.8) L 05/27/17 04:36 Prealbumin 10 mg/dL (10-36) 05/24/17 04:45 Triglycerides 397 mg/dL (<150) H 05/24/17 04:45 Cholesterol 83 mg/dL (<200) 05/24/17 04:45 LDL Cholesterol Direct 38 mg/dL (75-193) L 04/14/17 14:55 HDL Cholesterol 13 mg/dL (23-92) L 04/14/17 14:55 Amylase 53 U/L (29-103) 05/09/17 06:00 Lipase 85 U/L (11-82) H 05/09/17 06:00 Vitamin D 25-Hydroxy 25.8 ng/mL (30.0-100.0) L 05/18/17 04:50 Procalcitonin SEE REF LAB REPORT 05/05/17 04:35 PTH Interpretation (()) 05/18/17 04:50 PTH Intact <6 pg/mL (15-65) L 05/18/17 04:50 Calcium (PTH Intact) 9.6 mg/dL (8.7-10.2) 05/18/17 04:50 Urine Source [place] 05/18/17 16:30 Urine Color YELLOW 05/18/17 16:30 Urine Clarity CLOUDY (CLEAR) 05/18/17 16:30 Urine pH 5.5 (4.6 - 8.0) 05/18/17 16:30 Ur Specific [place] 1.010 (1.005-1.030) 05/18/17 16:30 Urine Protein NEGATIVE mg/dL (NEGATIVE) 05/18/17 16:30 Urine Glucose (UA) NEGATIVE mg/dL (NEGATIVE) 05/18/17 16:30 Urine Ketones NEGATIVE mg/dL (NEGATIVE) 05/18/17 16:30 Urine Blood MODERATE (NEGATIVE) H 05/18/17 16:30 Urine Nitrate NEGATIVE (NEGATIVE) 05/18/17 16:30 Urine Bilirubin NEGATIVE (NEGATIVE) 05/18/17 16:30 Urine Urobilinogen 0.2 E.U./dL (0.2 - 1.0) 05/18/17 16:30 Ur Leukocyte Esterase TRACE (NEGATIVE) H 05/18/17 16:30 Urine RBC 10-25 /hpf (0-5) H 05/18/17 16:30 Urine WBC 6-10 /hpf (0-5) H 05/18/17 16:30 Ur Epithelial Cells FEW /lpf (FEW) 05/18/17 16:30 Amorphous Sediment MANY URATES (NONE SEEN) 04/14/17 15:05 Urine Bacteria NONE SEEN /hpf (NONE SEEN) 05/18/17 16:30 Hyaline Casts 5-10 /lpf (0-2) H 05/18/17 16:30 Urine Sperm MANY /hpf (NONE SEEN) 05/18/17 16:30 Amikacin Peak 23.4 ug/mL (20.0-30.0) 05/19/17 16:02 Amikacin Trough 8.6 ug/mL (1.0-8.0) H 05/19/17 13:30 Random Amikacin 6.7 ug/ml (1.0-30.0) 05/17/17 04:25 Vancomycin Trough 13.5 ug/mL (10-20) 04/19/17 19:20 Helicobacter pylori Ab NEGATIVE (NEGATIVE) 05/04/17 10:05 Blood Type O POSITIVE 05/02/17 07:12 Antibody Screen NEGATIVE 05/02/17 07:12 Crossmatch See Detail 05/02/17 07:12 - Physical Exam Vitals and I&O: Vital Signs Temp 96.9 F 05/27/17 04:00 Pulse 75 05/27/17 07:30 Resp 19 05/27/17 07:00 BP 116/69 05/27/17 07:00 Pulse Ox 100 05/27/17 07:30 Intake & Output 05/26/17 05/27/17 05/27/17 18:59 06:59 18:59 Intake Total 4768.9 1671.2 Output Total 2110 1500 Balance 2658.9 171.2 Weight (lbs) 102.965 kg 103.504 kg Intake: Intake, IV Amount 3508.9 251.2 Amikacin 300 mg In 202.4 101.2 Dextrose 5% 100 ml @ 100 mls/hr IV Q12H [facility] Rx#: [id number] Multivitamin Inj 10 ml In 2400 Dextrose 70% 1,740 ml In Amino Acids 10% 500 ml In Intralipids 20% 150 ml @ 100 mls/hr IV .Q24H [facility] Rx#:[id number] Sodium Chloride 0.45% 1, 756.5 000 ml @ 30 mls/hr IV . Q24H [facility] Rx#:[id number] Tigecycline 50 mg In 100 100 Sodium Chloride 0.9% 100 ml @ 100 mls/hr IV Q12HR [facility] Rx#:[id number] cefTAZidime 1 gm In 50 50 Sodium Chloride 0.9% 50 ml @ Per Protocol IV Q12HR [facility] Rx#:[id number] Tube Feeding 60 120 TPN/PPN 1200 1200 Other 100 Output: Gastric Drainage 10 Urine 2100 1500 Other: # Bowel Movements 0 Active Medications: Current Medications Acetaminophen (Tylenol 650mg/20.3ml Suspension) 650 mg NG Q6H PRN PRN Reason: FEVER/PAIN Stop: 06/21/17 17:45 Last Admin: 05/25/17 21:44 Dose: 650 mg Albuterol/Ipratropium (Duoneb Neb) 3 ml HHN Q4HRT [facility] Stop: 06/15/17 14:59 Last Admin: 05/27/17 07:05 Dose: 3 ml Budesonide (Pulmicort) 0.5 mg HHN BIDRT [facility] Stop: 06/15/17 18:59 Last Admin: 05/27/17 07:05 Dose: 0.5 mg Chlorhexidine Gluconate (Peridex) 15 ml MM 08,1999 [facility] Stop: 06/30/17 19:59 Last Admin: 05/26/17 19:33 Dose: 15 ml Enalaprilat (Vasotec) 2.5 mg IVP Q4HR PRN PRN Reason: SBP>150 Stop: 07/06/17 15:59 Famotidine (Pepcid) 20 mg IVP DAILY [facility] Stop: 07/18/17 08:59 Last Admin: 05/26/17 08:14 Dose: 20 mg Multivitamins/Minerals 10 ml/Dextrose/ Amino Acids/Electrolytes/ Fat Emulsion Intravenous 2,400 mls @ 100 mls/hr IV .Q24H [facility] Stop: 06/23/17 15:59 Last Admin: 05/26/17 16:50 Dose: 100 mls/hr Diltiazem HCl 125 mg/ Dextrose 125 mls @ 10 mls/hr IV TITR [facility]; 10 MG/HR PRN Reason: Protocol Stop: 07/06/17 11:14 Last Titration: 05/11/17 18:00 Dose: 0 mg/hr, 0 mls/hr Tigecycline 50 mg/ Sodium (Chloride) 100 mls @ 100 mls/hr IV Q12HR [facility] Stop: 07/13/17 20:59 Last Infusion: 05/26/17 22:20 Dose: Infused Ceftazidime 1 gm/ Sodium (Chloride) 50 mls @ 0 mls/hr IV Q12HR [facility] PRN Reason: Per Protocol Stop: 07/16/17 20:59 Last Infusion: 05/26/17 21:05 Dose: Infused Norepinephrine Bitartrate 4 mg (/ Dextrose) 254 mls @ 15.24 mls/hr IV TITR PRN ; Protocol; 4 MCG/MIN PRN Reason: BP MAINTENANCE (PER PROTOCOL) Stop: 07/18/17 10:59 Last Titration: 05/20/17 16:00 Dose: 0 mcg/min, 0 mls/hr Amikacin Sulfate 300 mg/ (Dextrose) 101.2 mls @ 100 mls/hr IV Q12H [facility] Stop: 07/20/17 13:59 Last Infusion: 05/27/17 02:45 Dose: Infused Sodium Chloride (Nacl 0.45%) 1,000 mls @ 30 mls/hr IV .Q24H [facility] Stop: 07/24/17 08:44 Last Admin: 05/26/17 10:08 Dose: 30 mls/hr Insulin Aspart (Novolog Insulin Sliding Scale) 0 units SUBQ Q6HR [facility] PRN Reason: Protocol Stop: 07/17/17 11:59 Last Admin: 05/27/17 05:42 Dose: 4 units Lactobacillus Rhamnosus (Culturelle) 1 each PO DAILY [facility] Stop: 07/16/17 08:59 Last Admin: 05/26/17 10:07 Dose: Not Given Lorazepam (Ativan) 1 mg IVP Q4HR PRN; Protocol PRN Reason: Agitation Stop: 07/25/17 10:34 Last Admin: 05/27/17 05:39 Dose: 1 mg Methylprednisolone Sodium Succinate (Solu-Medrol) 20 mg IV Q8HR [facility] Stop: 07/25/17 12:59 Last Admin: 05/27/17 04:36 Dose: 20 mg Metoclopramide HCl (Reglan) 10 mg IVP Q8HR [facility] Stop: 07/06/17 20:59 Last Admin: 05/27/17 04:37 Dose: 10 mg Metoprolol Tartrate (Lopressor) 25 mg PO BID [facility] Stop: 06/26/17 08:59 Last Admin: 05/26/17 16:58 Dose: Not Given Mineral Oil (Mineral Oil 30 Ml) 30 ml NG DAILY [facility] Stop: 07/04/17 12:29 Last Admin: 05/26/17 10:05 Dose: Not Given Miscellaneous (Vte Chemical Prophylaxis Screen/ Admission) 1 ea PRN PRN PRN Reason: PROTOCOL Stop: 07/01/17 14:44 Miscellaneous (Amikacin Iv Per Pharmacy) 1 ea PRN PRN PRN Reason: PROTOCOL Stop: 07/13/17 18:39 Miscellaneous (Probiotic Screen) 1 ea PRN PRN PRN Reason: PROTOCOL Stop: 07/15/17 10:37 Miscellaneous (Tpn Per Pharmacy) 1 ea PRN PRN PRN Reason: PROTOCOL Stop: 07/17/17 15:12 Morphine Sulfate (Morphine) 2 mg IVP Q4H PRN PRN Reason: PAIN Stop: 07/25/17 16:08 Last Admin: 05/27/17 03:30 Dose: 2 mg Sulfacetamide Sodium (Sulamyd 10% Oph Soln) 1 drop EACH EYE Q6HR [facility] Stop: 07/16/17 11:59 Last Admin: 05/27/17 05:30 Dose: 1 drop General: Other (sedated n intubated.) HEENT: Atraumatic, PERRLA, EOMI, Mucous membr. moist/pink, Other (NG tube+) Neck: Supple, +2 carotid pulse wo bruit, Other (tracheostomy noted.) Cardiovascular: Regular rate, Normal S1, Normal S2 Lungs: Other (diffuse rhonchi.) Abdomen: Soft, Other ( wound VAC anterior open abdominal wall wound. L colostomy no out put. G tube +) Extremities: Edema, Other (no edema and cyanosis.) Neurological: Reflexes 2+, Other (Patient is not following commands.) Psych/Mental Status: Other (Not following commands.) - Procedures Procedures: Procedures Procedure Code Date BYPASS SIGMOID COLON TO CUTANEOUS, OPEN APPROACH [id number] 04/14/17 BYPASS TRACHEA TO CUTANEOUS WITH TRACH DEV, OPEN APPROACH [id number] 04/14/17 INCISION OF WINDPIPE 36833 04/14/17 INSERT EMERGENCY AIRWAY 39322 04/14/17 INSERTION OF ENDOTRACHEAL AIRWAY INTO TRACHEA, VIA OPENING [id number] 04/14/17 INSERTION OF INFUSION DEV INTO SUP VENA CAVA, PERC APPROACH [id number] 04/14/17 PARTIAL REMOVAL OF COLON 36712 04/14/[address] PL[address] CATHETER IN VEIN 22199 04/14/17 RESECTION OF SIGMOID COLON, OPEN APPROACH [id number] 04/14/17 RESPIRATORY VENTILATION, 24-96 CONSECUTIVE HOURS [id number] 04/14/17 VENT MGMT INPAT INIT DAY 65387 04/14/17 VENT MGMT INPAT SUBQ DAY 38097 04/14/17 Assessment/Plan - Problem List Patient Problems: All Active Problems Abscess of sigmoid colon due to diverticulitis (Acute) K57.20 Diverticulitis of sigmoid colon (Acute) K57.32 Obesity (Acute) E66.9 Perforation of sigmoid colon due to diverticulitis (Acute) K57.20 Peritonitis (acute) generalized (Acute) K65.0 - Assessment Assessment: Current Active Problems Problem Status Onset Abscess of sigmoid colon due to diverticulitis Acute Diverticulitis of sigmoid colon Acute Obesity Acute Perforation of sigmoid colon due to diverticulitis Acute Peritonitis (acute) generalized Acute Perforated diverticulitis status post expiratory laparotomy and colostomy placement. Vent dependant resp failure status post tracheostomy. Obesity. MDROs organisms positive culture. ARDS. Polymicrobial peritonitis due to perforation.. Asthma. Abnormal liver function test improving. Electrolyte imbalance. SEKOU R/O Allergic interstitial nephritis better with iv steroid. Electrolyte imbalance. Encephalopathy due to metabolic and infectious Open surgical abdominal wound with wound VAC. Altered mental status secondary to metabolic and infectious encephalopathy with slow improvement. Postop anemia. - Plan Plan: ICU status. Vent support. Nebulizer treatment. Pulmonary toilet. If Patient is accepted to [facility] then transfer. IV antibiotics as per ID. G tube feeding with slow rate and advance as tolerated. Renal follow-up. Corrected electrolytes as needed. Keep IV steroid for possible AIN Change IVF to 1/2 normal saline. Rate control with cardizem drip. Wound care with wound VAC Surgical follow-up ID follow-up. Cardiology follow-up Pulmonary follow-up. Symptoms management. Medication management. IV PPI. Monitor lab. Guarded prognosis. Chronic management of his medical illnesses. Care plan discussed with RN. Nutritional Asmnt/Malnutr-PDOC - Dietary Evaluation Malnutrition Findings (Please click <Entered> for more info): Nutritional Asmnt/Malnutrition Start: 04/19/17 14: 21 Text: Status: Complete Freq: Document 04/19/17 14:21 GSUN (Rec: 04/19/17 14:58 [id number]) Nutritional Asmnt/Malnutrition Patient General Information Nutritional Screening Moderate Risk Screening Diagnosis Sepsis, diverticulitis, peritonitis Pertinent Medical Hx/Surgical Hx Asthma, diverticulosis Subjective Information 56 year old male frome home. Pt was restless, moving extremities during visit. 04/14 : sigmoid colectomy, end colostomy, abscess drainage, diffuse peritontis. 04/16: pt started PPN. 04/17: central line and started on TPN. Spoke to family at bedside, explained parenteral nutrition , family undersoto and has no further question at this time. Weight discrepancies noted in EMR, family does not know UBW , estimated nutritional needs based Current Diet Order/ Nutrition Support TPN D10% AA4.25% at 90ml/hr with IL20% 150ml, providing 1401.6kcal Pertinent Medications Dilaudid, Novolog, Culturelle, Magnesium Sulfate, Vancomycin , TPN, Morphine, Multivitamins , Zofran, Protonix, Nacl0.9% Pertinent Labs 04/14: triglycerides 106, total bilirubin 1.1H, glucose 116H 04/17: magnesium 2.5, phsophorus 3.2 04/19: magnesium 1.8L, phosphorus 2.4L, BUN 28H, creatinine 1.3, glucose 154H, total bilirubin 1.1H, triglycerides 238H Nutritional Hx/Data Height 1.7 m Height (Calculated Centimeters) 170.2 Current Weight (lbs) 95.254 kg Weight (Calculated Kilograms) 95.3 Weight (Calculated Grams) 23398.4 [place] Body Weight 148 Weight Status Overweight GI Symptoms Skin Integrity/Comment: [place] 14. Facial non-pitting 1+, bilateral hands pitting 1+ Estimated Nutritional Goals Calories/Kcals/Kg IBW 148/67.3kg Kcals Calculated 2019-2356kcal (30-35kcal/kg) Protein Calculated 101-135g (1.5-2g/kg) Fluid: ml Per MD Nutritional Problem 1. Problem Problem Altered GI function related to Etiology abscess and perforation of sigmoid colon due to diverticulitis aeb Signs/Symptoms: post-operative, on TPN Intervention/Recommendation Comments 1. Recommend TPN D15% AA5.5% at 100ml/hr with IL20% 150ml, providing 2400ml total volume, 2052kcal, 132g protein, meeting 100% of estimated nutritional needs. Carb load 2 .6mg/kg/min (using 210lb adm weight). 2. Monitor for possible refeeding syndrome, 04/18: phsophorus 2.1L, 04/19: magnesium 1.9. 3. Monitor triglycerides, total bilirubin, glucose, renal labs. Expected Outcomes/Goals Expected Outcomes/Goals 1. Pt to meet 100% of estimated nutritional needs on TPN.
[2017-05-27] MEDS: cefTAZidime 1 GM in Sodium Chloride 0.9% 50 ML IV SCH ×2 (08:58→20:05)
[2017-05-27] MEDS: Lactobacillus Rhamnosus 10 Billion CFU Capsule PO SCH (08:58)
[2017-05-27 09:24] LABS: BAND NEUTROPHILE 1 % (0-10); EOSINOPHIL 1 % (0-5); NEUTROPHILS 74 % (40-80); TOTAL CELLS COUNTED 100
[2017-05-27 09:25] LABS: ANISOCYTOSIS 1+; PLATELET ESTIMATE ADEQUATE (NORMAL); PLATELET MORPHOLOGY GIANT PLATELETS SEEN (NORMAL)
[2017-05-27] MEDS: Sodium Chloride 0.45% 1,000 ML IV SCH (13:31)
[2017-05-27] MEDS: TPN 10%-70% CUSTOM IV SCH ×2 (17:12→18:19)
[2017-05-28] MEDS: INSULIN ASPART SLIDING SCALE 100 UNITS/ML UNIT SUBQ SCH ×4 (00:16→17:06)
[2017-05-28] MEDS: Morphine Sulfate 2 mg/mL 1mL Syr IVP PRN ×3 (03:50→16:06)
[2017-05-28] MEDS: Albuterol/Ipratropium Neb 3 ML AERS HHN SCH ×5 (04:14→18:40)
--- NOTE | 2017-05-28 04:52 | Progress Notes ---
DATE: 05/27/2017 PROBLEM LIST: 1. Persistent respiratory failure. 2. Persistent issues with lower GI. 3. Encephalopathic status. SYMPTOMS: Nil. Sleeping. Opens eyes. No respiratory distress, currently still on assist control mode of ventilator. PHYSICAL EXAMINATION: VITAL SIGNS: Temperature is 97.7, blood pressure 107/52, saturation 100% on 30%. NECK: Veins not visualized. CHEST: Shows diminished air entry with occasional rhonchi. HEART: Regular. ABDOMEN: Still lower abdomen is tender. G-tube advanced feeding has been started. LABORATORY DATA: White count is 9000. Electrolytes are okay with BUN of 71. ASSESSMENT: The patient clinically status quo, not too much significantly changed. PLANS AND SUGGESTIONS: We will go ahead and continue current treatment. Care and plan discussed with the nursing staff. JOB# [id number]
[2017-05-28] MEDS: methylPREDNISolone SS 40 mg Vial IV SCH (05:20)
[2017-05-28] MEDS: Metoclopramide 5 mg/mL 2mL Vial IVP SCH ×3 (05:22→21:06)
[2017-05-28 06:16] LABS: ANION GAP 7.5 (7.0-16.0); BUN - UREA NITROGEN 74 mg/dL (7-25); CALCIUM SERUM 8.6 mg/dL (8.6-10.3); CARBON DIOXIDE 20.8 mEq/L (21.0-31.0); CHLORIDE 115 mEq/L (98-107); GLUCOSE 201 mg/dL (70-105); MAGNESIUM 2.4 mg/dL (1.9-2.7); PHOSPHOROUS 4.7 mg/dL (2.5-5.0); POTASSIUM SERUM 4.3 mEq/L (3.5-5.1); SODIUM SERUM 139 mEq/L (136-145)
[2017-05-28] MEDS: Budesonide 0.5 Mg/2 mL Ud HHN SCH ×2 (07:03→18:40)
[2017-05-28] MEDS: Lactobacillus Rhamnosus 10 Billion CFU Capsule PO SCH (08:37)
[2017-05-28] MEDS: Chlorhexidine Gluconate 0.12% 15mL Mouthwash MM SCH ×2 (08:39→20:06)
--- NOTE | 2017-05-28 08:58 | General Progress Note ---
Subjective - Review of Systems Subjective: Patient is seen and examined. Patient currently on vent. I did discuss with RN about patient's treatment plan. S/P PEG. Patient vomited once.Patient is more alert and awake. Objective - Results Result Diagrams: 05/27/17 04:36 05/28/17 05:10 Recent Labs: Laboratory Last Values WBC 9.0 Th/cmm (4.8-10.8) D 05/27/17 04:36 RBC 3.64 Mil/cmm (4.30-5.70) L 05/27/17 04:36 Hgb 9.9 gm/dL (13.2-17.3) L 05/27/17 04:36 Hct 30.1 % (39.0-49.0) L 05/27/17 04:36 MCV 82.6 fl (80-99) 05/27/17 04:36 MCH 27.1 pg (26.0-30.0) 05/27/17 04:36 MCHC Differential 32.8 pg (28.0-36.0) 05/27/17 04:36 RDW 18.7 % (11.5-20.0) 05/27/17 04:36 Plt Count 225 Th/cmm (150-400) 05/27/17 04:36 MPV 10.9 fl 05/27/17 04:36 Neutrophils % [employer] PLATEMAKER 05/25/17 04:36 Band Neutrophils % 1 % (0-10) 05/27/17 04:36 Lymphocytes % [employer]SET PLATEMAKER 05/25/17 04:36 Monocytes % OFFSET PLATEMAKER 05/25/17 04:36 Eosinophils % OFFSET PLATEMAKER 05/25/17 04:36 Basophils % OFFSET PLATEMAKER 05/25/17 04:36 Neutrophils (Manual) 74 % (40-80) 05/27/17 04:36 Lymphocytes 15 % (20-50) L 05/27/17 04:36 Monocytes 9 % (2-10) 05/27/17 04:36 Eosinophils 1 % (0-5) 05/27/17 04:36 Basophils 1 % (0-3) 05/19/17 05:15 Metamyelocytes 1 % (0-0) H 04/22/17 05:04 Atypical Lymphocytes 1 % 05/21/17 04:30 Platelet Estimate ADEQUATE (NORMAL) 05/27/17 04:36 Platelet Morphology GIANT PLATELETS SEEN (NORMAL) 05/27/17 04:36 Polychromasia 1+ 05/26/17 03:33 Anisocytosis 1+ 05/27/17 04:36 Microcytosis 1+ 05/02/17 05:15 RBC Morph Micro Appear ABNORMAL (NORMAL) 05/27/17 04:36 ESR > 140 mm/hr (0-20) H 04/20/17 07:00 Plt Count 276 Th/cmm (150-750) 05/19/17 07:37 PT 13.5 SECONDS (9.5-11.5) H 05/25/17 04:36 INR 1.28 (0.5-1.4) 05/25/17 04:36 PTT (Actin FS) 34.3 SECONDS (26.0-38.0) 05/25/17 04:36 Fibrinogen 222.0 mg/dL (200.0-400.0) 05/19/17 07:37 D-Dimer 3160 ng/mL (100-400) H 05/19/17 07:37 Specimen Source Arterial 05/22/17 09:00 Sample Site Left Radial 05/22/17 09:00 pH 7.53 (7.35-7.45) H 05/22/17 09:00 pCO2 30.0 mmHg (35.0-45.0) L 05/22/17 09:00 pO2 128.0 mmHg (80.0-100.0) H 05/22/17 09:00 HCO3 27.3 mEq/L (20.0-26.0) H 05/22/17 09:00 Base Excess 3.0 mEq/L (-3.0-3.0) 05/22/17 09:00 O2 Saturation 99.0 % (92.0-100.0) 05/22/17 09:00 Chau Test YES 05/22/17 09:00 Vent Rate 16 05/22/17 09:00 Inspired O2 30 05/22/17 09:00 Tidal Volume 650 05/22/17 09:00 PEEP 3 05/22/17 09:00 Pressure (ins/psv/peep) NA 05/22/17 09:00 Critical Value SH 05/22/17 09:00 Sodium 139 mEq/L (136-145) 05/28/17 05:10 Potassium 4.3 mEq/L (3.5-5.1) 05/28/17 05:10 Chloride 115 mEq/L (98-107) H 05/28/17 05:10 Carbon Dioxide 20.8 mEq/L (21.0-31.0) L 05/28/17 05:10 Anion Gap 7.5 (7.0-16.0) 05/28/17 05:10 BUN 74 mg/dL (7-25) H 05/28/17 05:10 Creatinine 1.0 mg/dL (0.7-1.3) 05/28/17 05:10 Est GFR ( Amer) > 60.0 ml/min (>90) 05/28/17 05:10 Est GFR (Non-Af Amer) > 60.0 ml/min 05/28/17 05:10 BUN/Creatinine Ratio 74.0 05/28/17 05:10 Glucose 201 mg/dL (70-105) H 05/28/17 05:10 POC Glucose 177 MG/DL (70 - 105) H 05/28/17 06:17 Hemoglobin A1c % 6.5 % (4.0-6.0) H 05/22/17 07:52 Whole Bld Lactic Acid 1.66 mmol/L (0.60-1.99) 05/12/17 04:40 Uric Acid 3.6 mg/dL (4.4-7.6) L 04/20/17 07:00 Calcium 8.6 mg/dL (8.6-10.3) 05/28/17 05:10 Phosphorus 4.7 mg/dL (2.5-5.0) 05/28/17 05:10 Magnesium 2.4 mg/dL (1.9-2.7) 05/28/17 05:10 Total Bilirubin 1.3 mg/dL (0.3-1.0) H 05/27/17 04:36 Direct Bilirubin 0.46 mg/dL (0.0-0.2) H 05/24/17 04:45 AST 105 U/L (13-39) H 05/27/17 04:36 ALT 55 U/L (7-52) H 05/27/17 04:36 Alkaline Phosphatase 470 U/L (34-104) H 05/27/17 04:36 Ammonia 50 umol/L (16-53) 05/24/17 04:45 Creatine Kinase 136 U/L (30-223) 04/14/17 14:55 Troponin I 0.01 ng/mL (0.01-0.05) 04/22/17 05:04 C-Reactive Protein 27.5 mg/dL (0.0-0.9) H 05/15/17 04:29 B-Natriuretic Peptide 33.7 pg/mL (5.0-100.0) 05/24/17 04:45 Total Protein 7.3 gm/dL (6.0-8.3) 05/27/17 04:36 Albumin 2.1 gm/dL (4.2-5.5) L 05/27/17 04:36 Globulin 5.2 gm/dL 05/27/17 04:36 Albumin/Globulin Ratio 0.4 (1.0-1.8) L 05/27/17 04:36 Prealbumin 10 mg/dL (10-36) 05/24/17 04:45 Triglycerides 397 mg/dL (<150) H 05/24/17 04:45 Cholesterol 83 mg/dL (<200) 05/24/17 04:45 LDL Cholesterol Direct 38 mg/dL (75-193) L 04/14/17 14:55 HDL Cholesterol 13 mg/dL (23-92) L 04/14/17 14:55 Amylase 53 U/L (29-103) 05/09/17 06:00 Lipase 85 U/L (11-82) H 05/09/17 06:00 Vitamin D 25-Hydroxy 25.8 ng/mL (30.0-100.0) L 05/18/17 04:50 Procalcitonin SEE REF LAB REPORT 05/05/17 04:35 PTH Interpretation (()) 05/18/17 04:50 PTH Intact <6 pg/mL (15-65) L 05/18/17 04:50 Calcium (PTH Intact) 9.6 mg/dL (8.7-10.2) 05/18/17 04:50 Urine Source [place] 05/18/17 16:30 Urine Color YELLOW 05/18/17 16:30 Urine Clarity CLOUDY (CLEAR) 05/18/17 16:30 Urine pH 5.5 (4.6 - 8.0) 05/18/17 16:30 Ur Specific [place] 1.010 (1.005-1.030) 05/18/17 16:30 Urine Protein NEGATIVE mg/dL (NEGATIVE) 05/18/17 16:30 Urine Glucose (UA) NEGATIVE mg/dL (NEGATIVE) 05/18/17 16:30 Urine Ketones NEGATIVE mg/dL (NEGATIVE) 05/18/17 16:30 Urine Blood MODERATE (NEGATIVE) H 05/18/17 16:30 Urine Nitrate NEGATIVE (NEGATIVE) 05/18/17 16:30 Urine Bilirubin NEGATIVE (NEGATIVE) 05/18/17 16:30 Urine Urobilinogen 0.2 E.U./dL (0.2 - 1.0) 05/18/17 16:30 Ur Leukocyte Esterase TRACE (NEGATIVE) H 05/18/17 16:30 Urine RBC 10-25 /hpf (0-5) H 05/18/17 16:30 Urine WBC 6-10 /hpf (0-5) H 05/18/17 16:30 Ur Epithelial Cells FEW /lpf (FEW) 05/18/17 16:30 Amorphous Sediment MANY URATES (NONE SEEN) 04/14/17 15:05 Urine Bacteria NONE SEEN /hpf (NONE SEEN) 05/18/17 16:30 Hyaline Casts 5-10 /lpf (0-2) H 05/18/17 16:30 Urine Sperm MANY /hpf (NONE SEEN) 05/18/17 16:30 Amikacin Peak 19.0 ug/mL (20.0-30.0) L 05/26/17 03:33 Amikacin Trough 8.6 ug/mL (1.0-8.0) H 05/26/17 01:00 Random Amikacin 6.7 ug/ml (1.0-30.0) 05/17/17 04:25 Vancomycin Trough 13.5 ug/mL (10-20) 04/19/17 19:20 Helicobacter pylori Ab NEGATIVE (NEGATIVE) 05/04/17 10:05 Blood Type O POSITIVE 05/02/17 07:12 Antibody Screen NEGATIVE 05/02/17 07:12 Crossmatch See Detail 05/02/17 07:12 - Physical Exam Vitals and I&O: Vital Signs Temp 97.6 F 05/28/17 04:00 Pulse 93 05/28/17 08:37 Resp 30 05/28/17 06:50 BP 116/81 05/28/17 08:37 Pulse Ox 99 05/28/17 07:04 Intake & Output 05/27/17 05/28/17 05/28/17 18:59 06:59 18:59 Intake Total 4691.5 1290 Output Total 1550 1900 Balance 3141.5 -610 Weight (lbs) 103.419 kg 102.875 kg Intake: Intake, IV Amount 3371.5 150 Multivitamin Inj 10 ml In 2400 Dextrose 70% 1,740 ml In Amino Acids 10% 500 ml In Intralipids 20% 150 ml @ 100 mls/hr IV .Q24H [facility] Rx#:[id number] Sodium Chloride 0.45% 1, 821.5 000 ml @ 30 mls/hr IV . Q24H [facility] Rx#:[id number] Tigecycline 50 mg In 100 100 Sodium Chloride 0.9% 100 ml @ 100 mls/hr IV Q12HR [facility] Rx#:[id number] cefTAZidime 1 gm In 50 50 Sodium Chloride 0.9% 50 ml @ Per Protocol IV Q12HR [facility] Rx#:[id number] Tube Feeding 120 60 TPN/PPN 1200 1080 Output: Urine 1550 1700 Stool 0 Other 200 Active Medications: Current Medications Acetaminophen (Tylenol 650mg/20.3ml Suspension) 650 mg NG Q6H PRN PRN Reason: FEVER/PAIN Stop: 06/21/17 17:45 Last Admin: 05/25/17 21:44 Dose: 650 mg Albuterol/Ipratropium (Duoneb Neb) 3 ml HHN Q4HRT [facility] Stop: 06/15/17 14:59 Last Admin: 05/28/17 07:04 Dose: 3 ml Budesonide (Pulmicort) 0.5 mg HHN BIDRT [facility] Stop: 06/15/17 18:59 Last Admin: 05/28/17 07:03 Dose: 0.5 mg Chlorhexidine Gluconate (Peridex) 15 ml MM 0800,1999 [facility] Stop: 06/30/17 19:59 Last Admin: 05/28/17 08:39 Dose: 15 ml Enalaprilat (Vasotec) 2.5 mg IVP Q4HR PRN PRN Reason: SBP>150 Stop: 07/06/17 15:59 Famotidine (Pepcid) 20 mg IVP DAILY [facility]AN Stop: 07/18/17 08:59 Last Admin: 05/28/17 08:36 Dose: 20 mg Diltiazem HCl 125 mg/ Dextrose 125 mls @ 10 mls/hr IV TITR ARIAN; 10 MG/HR PRN Reason: Protocol Stop: 07/06/17 11:14 Last Titration: 05/11/17 18:00 Dose: 0 mg/hr, 0 mls/hr Tigecycline 50 mg/ Sodium (Chloride) 100 mls @ 100 mls/hr IV Q12HR [facility] Stop: 07/13/17 20:59 Last Infusion: 05/27/17 21:45 Dose: Infused Ceftazidime 1 gm/ Sodium (Chloride) 50 mls @ 0 mls/hr IV Q12HR [facility] PRN Reason: Per Protocol Stop: 07/16/17 20:59 Last Infusion: 05/27/17 20:35 Dose: Infused Norepinephrine Bitartrate 4 mg (/ Dextrose) 254 mls @ 15.24 mls/hr IV TITR PRN ; Protocol; 4 MCG/MIN PRN Reason: BP MAINTENANCE (PER PROTOCOL) Stop: 07/18/17 10:59 Last Titration: 05/20/17 16:00 Dose: 0 mcg/min, 0 mls/hr Sodium Chloride (Nacl 0.45%) 1,000 mls @ 30 mls/hr IV .Q24H [facility] Stop: 07/24/17 08:44 Last Admin: 05/27/17 13:31 Dose: 30 mls/hr Multivitamins/Minerals 10 ml/Dextrose/ Amino Acids/Electrolytes/ Fat Emulsion Intravenous 2,160 mls @ 90 mls/hr IV .Q24H [facility] Stop: 07/26/17 15:59 Last Admin: 05/27/17 17:12 Dose: 90 mls/hr Amikacin Sulfate 600 mg/ (Dextrose) 102.4 mls @ 100 mls/hr IV Q24HR [facility] Stop: 07/27/17 07:59 Last Admin: 05/28/17 08:39 Dose: 100 mls/hr Insulin Aspart (Novolog Insulin Sliding Scale) 0 units SUBQ Q6HR [facility]AN PRN Reason: Protocol Stop: 07/17/17 11:59 Last Admin: 05/28/17 06:24 Dose: 2 units Lactobacillus Rhamnosus (Culturelle) 1 each PO DAILY ARIAN Stop: 07/16/17 08:59 Last Admin: 05/28/17 08:37 Dose: 1 each Lorazepam (Ativan) 1 mg IVP Q4HR PRN; Protocol PRN Reason: Agitation Stop: 07/25/17 10:34 Last Admin: 05/27/17 05:39 Dose: 1 mg Methylprednisolone Sodium Succinate (Solu-Medrol) 20 mg IV Q8HR [facility] Stop: 07/25/17 12:59 Last Admin: 05/28/17 05:20 Dose: 20 mg Metoclopramide HCl (Reglan) 10 mg IVP Q8HR [facility] Stop: 07/06/17 20:59 Last Admin: 05/28/17 05:22 Dose: 10 mg Metoprolol Tartrate (Lopressor) 25 mg PO BID [facility]AN Stop: 07/27/17 08:59 Last Admin: 05/28/17 08:37 Dose: 25 mg Mineral Oil (Mineral Oil 30 Ml) 30 ml NG DAILY ARIAN Stop: 07/04/17 12:29 Last Admin: 05/28/17 08:37 Dose: 30 ml Miscellaneous (Vte Chemical Prophylaxis Screen/ Admission) 1 ea PRN PRN PRN Reason: PROTOCOL Stop: 07/01/17 14:44 Miscellaneous (Amikacin Iv Per Pharmacy) 1 ea PRN PRN PRN Reason: PROTOCOL Stop: 07/13/17 18:39 Miscellaneous (Probiotic Screen) 1 ea PRN PRN PRN Reason: PROTOCOL Stop: 07/15/17 10:37 Miscellaneous (Tpn Per Pharmacy) 1 ea PRN PRN PRN Reason: PROTOCOL Stop: 07/17/17 15:12 Morphine Sulfate (Morphine) 2 mg IVP Q4H PRN PRN Reason: PAIN Stop: 07/25/17 16:08 Last Admin: 05/28/17 07:40 Dose: 2 mg Sulfacetamide Sodium (Sulamyd 10% [facility]) 1 drop EACH EYE Q6HR ARIAN Stop: 07/16/17 11:59 Last Admin: 05/28/17 06:24 Dose: 1 drop General: Other (sedated n intubated.) HEENT: Atraumatic, PERRLA, EOMI, Mucous membr. moist/pink, Other (NG tube+) Neck: Supple, +2 carotid pulse wo bruit, Other (tracheostomy noted.) Cardiovascular: Regular rate, Normal S1, Normal S2 Lungs: Other (diffuse rhonchi.) Abdomen: Soft, Other ( wound VAC anterior open abdominal wall wound. L colostomy no out put. G tube +) Extremities: Edema, Other (no edema and cyanosis.) Neurological: Reflexes 2+, Other (Patient is not following commands.) Psych/Mental Status: Other (Not following commands.) - Procedures Procedures: Procedures Procedure Code Date BYPASS SIGMOID COLON TO CUTANEOUS, OPEN APPROACH [id number] 04/14/17 BYPASS TRACHEA TO CUTANEOUS WITH TRACH DEV, OPEN APPROACH [id number] 04/14/17 INCISION OF WINDPIPE 32921 04/14/17 INSERT EMERGENCY AIRWAY 10572 04/14/17 INSERTION OF ENDOTRACHEAL AIRWAY INTO TRACHEA, VIA OPENING [id number] 04/14/17 INSERTION OF INFUSION DEV INTO SUP VENA CAVA, PERC APPROACH [id number] 04/14/17 PARTIAL REMOVAL OF COLON 26287 04/14/[address] PL[address] CATHETER IN VEIN 51003 04/14/17 RESECTION OF SIGMOID COLON, OPEN APPROACH [id number] 04/14/17 RESPIRATORY VENTILATION, 24-96 CONSECUTIVE HOURS [id number] 04/14/17 VENT MGMT INPAT INIT DAY 85663 04/14/17 VENT MGMT INPAT SUBQ DAY 52812 04/14/17 Assessment/Plan - Problem List Patient Problems: All Active Problems Abscess of sigmoid colon due to diverticulitis (Acute) K57.20 Diverticulitis of sigmoid colon (Acute) K57.32 Obesity (Acute) E66.9 Perforation of sigmoid colon due to diverticulitis (Acute) K57.20 Peritonitis (acute) generalized (Acute) K65.0 - Assessment Assessment: Current Active Problems Problem Status Onset Abscess of sigmoid colon due to diverticulitis Acute Diverticulitis of sigmoid colon Acute Obesity Acute Perforation of sigmoid colon due to diverticulitis Acute Peritonitis (acute) generalized Acute Perforated diverticulitis status post expiratory laparotomy and colostomy placement. Vent dependant resp failure status post tracheostomy. Obesity. MDROs organisms positive culture. ARDS. Vomiting etio?? R/o ileus. Polymicrobial peritonitis due to perforation.. Asthma. Electrolyte imbalance. SEKOU R/O Allergic interstitial nephritis better with iv steroid. Encephalopathy due to metabolic and infectious Open surgical abdominal wound with wound VAC. Altered mental status secondary to metabolic and infectious encephalopathy with slow improvement. Postop anemia. - Plan Plan: ICU status. Vent support. Nebulizer treatment. Pulmonary toilet. Transfer to LTAC once cleared by other consultants. IV antibiotics as per ID. G tube feeding with slow rate and advance as tolerated. Renal follow-up. Decrease IV steroid for possible AIN Rate control with cardizem drip. Wound care with wound VAC Surgical follow-up ID follow-up. Cardiology follow-up Pulmonary follow-up. Symptoms management. Medication management. IV H2 tl. Monitor lab. Guarded prognosis. Chronic management of his medical illnesses. Care plan discussed with RN. Nutritional Asmnt/Malnutr-PDOC - Dietary Evaluation Malnutrition Findings (Please click <Entered> for more info): Nutritional Asmnt/Malnutrition Start: 04/19/17 14: 21 Text: Status: Complete Freq: Document 04/19/17 14:21 GSUN (Rec: 04/19/17 14:58 [id number]) Nutritional Asmnt/Malnutrition Patient General Information Nutritional Screening Moderate Risk Screening Diagnosis Sepsis, diverticulitis, peritonitis Pertinent Medical Hx/Surgical Hx Asthma, diverticulosis Subjective Information 56 year old male frome home. Pt was restless, moving extremities during visit. 04/14 : sigmoid colectomy, end colostomy, abscess drainage, diffuse peritontis. 04/16: pt started PPN. 04/17: central line and started on TPN. Spoke to family at bedside, explained parenteral nutrition , family undersoto and has no further question at this time. Weight discrepancies noted in EMR, family does not know UBW , estimated nutritional needs based Current Diet Order/ Nutrition Support TPN D10% AA4.25% at 90ml/hr with IL20% 150ml, providing 1401.6kcal Pertinent Medications Dilaudid, Novolog, Culturelle, Magnesium Sulfate, Vancomycin , TPN, Morphine, Multivitamins , Zofran, Protonix, Nacl0.9% Pertinent Labs 04/14: triglycerides 106, total bilirubin 1.1H, glucose 116H 04/17: magnesium 2.5, phsophorus 3.2 04/19: magnesium 1.8L, phosphorus 2.4L, BUN 28H, creatinine 1.3, glucose 154H, total bilirubin 1.1H, triglycerides 238H Nutritional Hx/Data Height 1.7 m Height (Calculated Centimeters) 170.2 Current Weight (lbs) 95.254 kg Weight (Calculated Kilograms) 95.3 Weight (Calculated Grams) 39181.4 [place] Body Weight 148 Weight Status Overweight GI Symptoms Skin Integrity/Comment: [place] 14. Facial non-pitting 1+, bilateral hands pitting 1+ Estimated Nutritional Goals Calories/Kcals/Kg IBW 148/67.3kg Kcals Calculated 2018-2356kcal (30-35kcal/kg) Protein Calculated 101-135g (1.5-2g/kg) Fluid: ml Per MD Nutritional Problem 1. Problem Problem Altered GI function related to Etiology abscess and perforation of sigmoid colon due to diverticulitis aeb Signs/Symptoms: post-operative, on TPN Intervention/Recommendation Comments 1. Recommend TPN D15% AA5.5% at 100ml/hr with IL20% 150ml, providing 2400ml total volume, 2052kcal, 132g protein, meeting 100% of estimated nutritional needs. Carb load 2 .6mg/kg/min (using 210lb adm weight). 2. Monitor for possible refeeding syndrome, 04/18: phsophorus 2.1L, 04/19: magnesium 1.9. 3. Monitor triglycerides, total bilirubin, glucose, renal labs. Expected Outcomes/Goals Expected Outcomes/Goals 1. Pt to meet 100% of estimated nutritional needs on TPN.
[2017-05-28] MEDS: Venelex 60gm Tube TP SCH (09:00)
[2017-05-28] MEDS: cefTAZidime 1 GM in Sodium Chloride 0.9% 50 ML IV SCH ×2 (09:15→21:03)
--- NOTE | 2017-05-28 09:32 | Diagnostic Imaging Report ---
Exam: KUB HISTORY: Distended Findings: Supine examination the abdomen was reviewed, the study demonstrates nonspecific bowel gas pattern. Gastrostomy tube overlying the left upper quadrant. Bony structures intact. Degenerative changes of lumbar spine appreciated. No abnormal masses or calcifications are noted. Mild distention small bowel appreciated IMPRESSION: Nonspecific bowel gas pattern, mild distended small bowel.
[2017-05-28] MEDS ORDERED: methylPREDNISolone SS 40 mg Vial IV ONE (12:00)
[2017-05-28] MEDS: TPN 10%-70% CUSTOM IV SCH (16:23)
--- NOTE | 2017-05-29 13:14 | Progress Notes ---
DATE: 05/28/2017 PROBLEM LIST: 1. Persistent respiratory failure. 2. Recurrent encephalopathy status. 3. Abdominal sepsis now has a G-tube. SYMPTOMS: Noncommunicative obtunded, no respiratory distress, etc. PHYSICAL EXAMINATION: VITAL SIGNS: The patient is afebrile, pulse is 80s, respirations rate is 20s-30s, saturation 100% on 30%. NECK: Veins not visualized. Good bilateral carotid upstroke. CHEST: Shows diminished air entry. No other adventitious breath sounds. ABDOMEN: Seemingly less tender. LABORATORY DATA: Electrolytes are okay with BUN of 34. ASSESSMENT: The patient is clinically stable. PLANS AND SUGGESTIONS: Discharge planning ____ continue recurrent supportive care, etc and go from there. JOB# [id number]
== END 2017-05-28 23:30 | disposition short-term general hospital (02) | DRG 4 ==
LOC: ER 14:23 → MSI 17:04 → ICU 18:50 → TELE 04-21 13:50 → ICU 04-24 13:00
PROVIDERS: ADMIT Internal Medicine; ATTEND Internal Medicine
PROC: 0DTN0ZZ Resection of Sigmoid Colon, Open Approach (ICD-10-PCS; principal; 2017-04-14)
PROC: 0D1N0Z4 Bypass Sigmoid Colon to Cutaneous, Open Approach (ICD-10-PCS; 2017-04-14)
PROC: 0DNW0ZZ Release Peritoneum, Open Approach (ICD-10-PCS; 2017-04-14)
PROC: 02HV33Z Insertion of Infusion Device into Superior Vena Cava, Percutaneous Approach (ICD-10-PCS; 2017-04-17)
PROC: 3E0336Z Introduction of Nutritional Substance into Peripheral Vein, Percutaneous Approach (ICD-10-PCS; 2017-04-19)
PROC: 30233N1 Transfusion of Nonautologous Red Blood Cells into Peripheral Vein, Percutaneous Approach (ICD-10-PCS; 2017-04-29)
PROC: 5A1955Z Respiratory Ventilation, Greater than 96 Consecutive Hours (ICD-10-PCS; 2017-05-01)
PROC: 0BH17EZ Insertion of Endotracheal Airway into Trachea, Via Natural or Artificial Opening (ICD-10-PCS; 2017-05-01)
PROC: 0DB48ZX Excision of Esophagogastric Junction, Via Natural or Artificial Opening Endoscopic, Diagnostic (ICD-10-PCS; 2017-05-04)
PROC: 0DB68ZX Excision of Stomach, Via Natural or Artificial Opening Endoscopic, Diagnostic (ICD-10-PCS; 2017-05-04)
PROC: 0B110F4 Bypass Trachea to Cutaneous with Tracheostomy Device, Open Approach (ICD-10-PCS; 2017-05-21)
PROC: 02HV33Z Insertion of Infusion Device into Superior Vena Cava, Percutaneous Approach (ICD-10-PCS; 2017-05-21)
PROC: 0DH63UZ Insertion of Feeding Device into Stomach, Percutaneous Approach (ICD-10-PCS; 2017-05-25)
DX: A41.9 Sepsis, unspecified organism (principal); R65.21 Severe sepsis with septic shock; G93.41 Metabolic encephalopathy; G93.1 Anoxic brain damage, not elsewhere classified; J15.1 Pneumonia due to Pseudomonas; J95.821 Acute postprocedural respiratory failure; K57.20 Diverticulitis of large intestine with perforation and abscess without bleeding; N17.9 Acute kidney failure, unspecified; E87.0 Hyperosmolality and hypernatremia; D72.1 Eosinophilia; D64.9 Anemia, unspecified; E66.9 Obesity, unspecified; I10 Essential (primary) hypertension; E86.0 Dehydration; N39.0 Urinary tract infection, site not specified; L03.114 Cellulitis of left upper limb; L03.113 Cellulitis of right upper limb; E87.8 Other disorders of electrolyte and fluid balance, not elsewhere classified; R06.6 Hiccough; K56.0 Paralytic ileus; G47.33 Obstructive sleep apnea (adult) (pediatric); J45.901 Unspecified asthma with (acute) exacerbation; I47.1 Supraventricular tachycardia; L03.116 Cellulitis of left lower limb; K92.2 Gastrointestinal hemorrhage, unspecified; E46 Unspecified protein-calorie malnutrition; H10.9 Unspecified conjunctivitis; Z68.35 Body mass index [BMI] 35.0-35.9, adult; Z99.11 Dependence on respirator [ventilator] status
CPT/HCPCS: 36415-UA; 36600-90; 71010-TC; 71020-TC; 71275-TC; 73110-TC-LT; 73110-TC-RT; 74000-TC; 76770-TC; 78315-TC; 80048-TC; 80053-TC; 80061-TC; 80076-TC; 80150-TC; 80202-TC; 81001-TC; 82140-TC; 82150-TC; 82248-TC; 82306-90; 82310-90; 82465-TC; 82550-TC; 82803-TC; 82948-90; 83036-90; 83605; 83690-TC; 83735-TC; 83880-TC; 83970-90; 84100-TC; 84134-90; 84145-90; 84478-TC; 84484-TC; 84550-TC; 85007-TC; 85025-TC; 85027-TC; 85049-TC; 85379-TC; 85384-TC; 85610-TC; 85652-TC; 85730-TC; 86141-TC; 86850-TC; 86900-TC; 86901-TC; 86922-TC; 87070; 87070-90; 87075-90; 87086-90; 87205-90; 87338-TC; 88305-90; 88307-TC; 88312-90; 90779; 90799; 92950; 93005; 93970-TC-50; 94002; 94003; 94640; 94660; 94664; 94760; 96372; 96379; 97530; 99201; A9503; A9540; A9567; C9113; J0171; J0278; J0713; J1170; J1450; J1644; J1650; J1720; J1815; J1940; J1956; J2020; J2060; J2185; J2250; J2270; J2405; J2430; J2543; J2704; J2765; J2920; J3243; J3370; J3475; J3480; J3490; J7030; J7040; J7042; J7070; J7613; P9016; P9046; Q9967; V2790; X3904; X6024; X6026; X6452; X6494; X6598; X7704; Z7506; Z7610